=== PATIENT | female | born 1945 | race Caucasian/White ===

== ENCOUNTER 2016-09-02 08:25 | Inpatient (IN) | payer OTHER ==
[2016-08-05 11:41] VITALS: BMI 39.0
--- NOTE | 2016-08-05 12:25 | PAT Medication Instructions ---
Service Date Aug 05, 2016. Current Home Medication List Calcium Carbonate (Tums), 1 TAB PO BID PRN for Indigestion Cholecalciferol (Vitamin D 1000 Unit), 3,000 INTER.UNIT PO QAM Cyanocobalamin (Vitamin B-12), 1,000 MCG SL QAM Divalproex Sodium (Depakote Er), 500 MG PO HS Divalproex Sodium (Depakote Delay Rel), 250 MG PO HS Donepezil Hydrochloride (Donepezil Hcl), 1 TAB PO QAM Econazole Nitrate 1% (Spectazole 1%), 1 APPLN TOP DAILY PRN for RASH Fluoxetine (Prozac), 20 MG PO QAM Gabapentin (Neurontin), 100 MG PO TID Gabapentin (Neurontin), 400 MG PO TID Loperamide Hcl (Imodium), 2 MG PO DIRECTED PRN for Diarrhea Lorazepam (Ativan), 1 MG PO BID PRN for Anxiety Nystatin (Mycostatin), 1 APPLN TD DAILY PRN for skin impairment Ondasetron Odt (Zofran Odt), 4 MG SL Q6H PRN for NAUSEA Oxycodone Immediate Rel Tab (Roxicodone Ir), 5 MG PO TID PRN for Severe Pain Oxygen (Oxygen), 2 LITERS NA HS Pantoprazole (Protonix), 40 MG PO QAM Saline ([place] Nasal [place]), 2 SPRAY CAROL DAILY PRN for CONGESTION Wheat Dextrin (Benefiber), 1 DOSE PO DAILY PRN for Constipation Zinc Acetate (Oral) (Galzin), 25 MG PO QAM Medication Instructions For Your Scheduled Surgery - Hold the following medications 24 hours prior to surgery: Econazole Nitrate 1% (Spectazole 1%), 1 APPLN TOP DAILY PRN for RASH Nystatin (Mycostatin), 1 APPLN TD DAILY PRN for skin impairment - Hold the following medications the morning of surgery: Zinc Acetate (Oral) (Galzin), 25 MG PO QAM Wheat Dextrin (Benefiber), 1 DOSE PO DAILY PRN for Constipation Loperamide Hcl (Imodium), 2 MG PO DIRECTED PRN for Diarrhea Calcium Carbonate (Tums), 1 TAB PO BID PRN for Indigestion Cholecalciferol (Vitamin D 1000 Unit), 3,000 INTER.UNIT PO QAM Cyanocobalamin (Vitamin B-12), 1,000 MCG SL QAM - Take the following medications the morning of surgery with a sip of water: Saline ([place] Nasal [place]), 2 SPRAY CAROL DAILY PRN for CONGESTION Pantoprazole (Protonix), 40 MG PO QAM Ondasetron Odt (Zofran Odt), 4 MG SL Q6H PRN for NAUSEA Lorazepam (Ativan), 1 MG PO BID PRN for Anxiety' Gabapentin (Neurontin), 100 MG PO TID Gabapentin (Neurontin), 400 MG PO TID Fluoxetine (Prozac), 20 MG PO QAM Donepezil Hydrochloride (Donepezil Hcl), 1 TAB PO QAM Oxycodone Immediate Rel Tab (Roxicodone Ir), 5 MG PO TID PRN for Severe Pain ( okay to take up to 4 hours prior to surgery if needed) - Take the following medications as scheduled the night before surgery: Saline ([place] Nasal [place]), 2 SPRAY CRAOL DAILY PRN for CONGESTION Ondasetron Odt (Zofran Odt), 4 MG SL Q6H PRN for NAUSEA Lorazepam (Ativan), 1 MG PO BID PRN for Anxiety Loperamide Hcl (Imodium), 2 MG PO DIRECTED PRN for Diarrhea Gabapentin (Neurontin), 100 MG PO TID Gabapentin (Neurontin), 400 MG PO TID Divalproex Sodium (Depakote Delay Rel), 250 MG PO HS Divalproex Sodium (Depakote Er), 500 MG PO HS Calcium Carbonate (Tums), 1 TAB PO BID PRN for Indigestion Oxycodone Immediate Rel Tab (Roxicodone Ir), 5 MG PO TID PRN for Severe Pain If you have any questions please call us at [phone] (Lashanda Haider PA-C) or [phone] or [phone]
[2016-08-05 12:49] LABS: BASO % 0.2 %; BASO ABS # 0.01 K/uL (0-0.2); COMPLETE YES; EOS % 1.5 %; HEMATOCRIT 33.2 % (37-47); IG% 0.2 %; LYMPH % 23.3 %; LYMPH ABS # 1.28 K/uL (1.2-3.4); MEAN CELL VOLUME 90.2 fL (80-100); MEAN CORPUSCULAR HEMOGLOBIN 30.4 pg (25-34); MEAN CORPUSCULAR HGB CONC 33.7 g/dl (32-36); MEAN PLATELET VOLUME 10.6 fL (7.4-10.4); MONO % 8.9 %; NEUT % 65.9 %; PLATELET COUNT 245 K/uL (130-400); RED BLOOD COUNT 3.68 M/uL (4.2-5.4); WHITE BLOOD COUNT 5.49 K/uL (4.8-10.8)
[2016-08-05 13:00] LABS: INR 0.9 (0.9-1.1)
[2016-08-05 13:09] LABS: BUN/CREATININE RATIO 26.3 (10-20); CALCIUM 9.2 mg/dl (8.5-10.1); CREATININE 0.75 mg/dl (0.60-1.20); POTASSIUM 4.8 mmol/L (3.5-5.1)
--- NOTE | 2016-08-28 01:39 | HISTORY & PHYSICAL EXAMINATION ---
DATE OF ADMISSION: 06/04/2016 CHIEF COMPLAINT: Left hip pain, discomfort and stiffness. HISTORY OF PRESENT ILLNESS: This is a 70-year-old female, who presents with over a year history of progressively increasing left hip pain and discomfort. No particular injury. It has gradually gotten significantly worse over the past year. She has actually had to resort to using a cane due to both pain and balance issues. She has become more and more debilitated by her leg pain. She also has got some buttock and back issues, but they have recommended nonoperative care for this. The more she walks, the more it hurts. She would like to have her hip replaced. The patient does have a history of endometrial cancer treated surgically with chemotherapy in 2012. She is disease-free. She had a right knee replacement by Dr. Messer in 2011. PAST MEDICAL HISTORY: 1. Heart murmur. 2. Exertional asthma. 3. Sleep apnea with CPAP machine. 4. Chronic back pain. 5. Chronic anemia. 6. Gastroesophageal reflux disease. 7. Obesity, BMI of 39. PAST SURGICAL HISTORY: Include: 1. Hysterectomy. 2. Cholecystectomy. 3. 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 4. Carpal tunnel release. ALLERGIES: TO TETRACYCLINE, DOXYCYCLINE, ZYRTEC, ERYTHROMYCIN, ADHESIVE TAPE, CODEINE, AND MORPHINE. CURRENT MEDICINES: Include: 1. Aricept 10 mg daily. 2. Neurontin 400 mg three times a day. 3. Oxycodone 5 mg three times a day p.r.n. 4. Namenda 500 mg a day. 5. Protonix 40 mg in the morning. 6. B complex. 7. Spectazole cream. 8. Simvastatin powder. 9. Zofran p.r.n. for nausea. 10. Albuterol 2 puffs four times a day. 11. Neomycin ointment. 12. Lorazepam 1 mg a day. 13. Fluoxetine 20 mg a day. 14. Divalproex 500 mg two pills a day. 15. Tums. 16. Loperamide 2 mg. 17. Procaine. 18. Stool softener. 19. Vitamin D. 20. Depakote 750 at bedtime. SOCIAL HISTORY: A 70-year-old female. She lives by herself. She does not smoke. FAMILY HISTORY: Noncontributory. REVIEW OF SYSTEMS: Significant for chronic narcotic use for some back issues. She denies any current chest pain or shortness of breath. No history of DVT or PE. PHYSICAL EXAMINATION: GENERAL: Reveals a pleasant elderly female. She looks in reasonably good health. HEENT: Benign. NECK: Supple. No lymphadenopathy. LUNGS: Clear to auscultation. HEART: Regular rate and rhythm. ABDOMEN: Soft, nontender and nondistended. EXTREMITIES: Grossly neurovascularly intact except as follows: Examination of the left lower extremity reveals the patient walks with a bit of a limp. She comes using a walker. She is about 1 cm short on the left side compared to the right. Pain with any attempted hip motion. Limited hip motion. X-RAYS: X-rays of the left hip were reviewed. It shows advanced left hip DJD. She has complete loss of her joint space. She has got flattening of her femoral head. There are cystic changes in the femoral head and acetabulum. X-rays of the lumbar spine show fairly mild lumbar disease. Her spine is fairly straight. No severe disease at L5-S1. ASSESSMENT: A 70-year-old female, with left hip and leg pain, consistent with advanced left hip arthritis with some superimposed lumbar spondylosis and spinal stenosis. I do think her hip is probably the biggest generator overall of her pain, but not all of it. We talked about treatment and she would like to have her left hip replaced. PLAN: We are going to take her to the operating room and do a left total hip replacement. The risks and benefits of this procedure were explained to the patient including but not limited to DVT, PE, , infection, neurological injury, vascular injury, bleeding problems, pain, limited range of motion, stiffness, failure to relieve her symptoms, incomplete relief of symptoms, need for further surgery in the future, fracture, leg length inequality, nerve palsy, dislocation, need for revision surgery, need for blood transfusion, etc. The patient understands and desires to proceed. Informed consent was obtained. As far as discharge plans, she is hoping to be discharged to [facility] for a brief rehab stay as she does live by herself. She will bring her CPAP to the hospital. Pain control may be an issue as she is on chronic narcotics preop. We talked about trying to limit this in the perioperative period. JT
[~2016-09-02] VITALS: Ht 160 cm; Wt 100.0 kg
[2016-09-02] VITALS (7 sets, daily range): BP systolic 95–140; BP diastolic 58–78; PULSE 72–79; TEMP 35.8–37; O2SAT 90–100; Ht 160 cm; Wt 100.0 kg
[~2016-09-02 08:25] MED LIST: ACETAMINOPHEN 500 MG TAB PO SCH; ATV/1 PO; BUPIVACAINE 0.5 % 5 MG/1 ML PF 10ML VIAL ONE; CALC500C3 PO; CEFAZOLIN 2000 MG/60 ML D5W 60 ML IV SCH; CHOL100027 PO; CYAN10005 SL; DIVA250T4 PO; DIVA500T3 PO; DONE1TAB26 PO; ECON0.05 TOP; FAMOTIDINE 20 MG TAB PO SCH; FLUO20CA35 PO; GABA-112 PO; GABA1CAP5 PO; GABAPENTIN 300 MG CAP PO SCH; IMD/2 PO; LACTATED RINGER'S 1000ML 1,000 ML IV SCH; LACTATED RINGER'S 1000ML 500 ML IV ONE; LACTATED RINGER'S 1000ML IV SCH; METOCLOPRAMIDE HCL 10 MG TAB PO SCH; NYST100098 TD; ONDA4TAB10 SL; OXGN; OXYC1TAB3 PO; PANT40TA PO; SALI0.6510 NAE; SCOPOLAMINE 1.5 MG TDSY TD SCH; TRANEXAMIC ACID INJ 1,000 MG in SODIUM CHLORIDE 0.9% 100ML 100 ML IV SCH; WHEAPOW13 PO; ZINC25CA PO
--- NOTE | 2016-09-02 09:03 | History & Physical Bridge Note ---
H&P Re-Evaluation Bridge Note: I have examined the patient, reviewed the History & Physical and in the interval since the performance of the History & Physical I have noted the following changes of clinical significance: No changes noted
[2016-09-02] MEDS ORDERED: LIDOCAINE HCL 2% 2 ML VIAL (20MG/ML) ONE (10:05)
[2016-09-02] MEDS ORDERED: PROPOFOL IV EMULSION 10 MG/ML 20 ML VIAL IV ONE (10:05)
[2016-09-02] MEDS ORDERED: MIDAZOLAM HCL 1 MG/ML 2ML VIAL ONE ×2 (10:05→12:30)
[2016-09-02] MEDS ORDERED: BUPIVACAINE/EPINEPHRINE 0.5% MPF 1:200,000 30 ML VIAL ONE (11:20)
[2016-09-02] MEDS ORDERED: BACITRACIN 50,000 UNITS IR ONE (12:13)
[2016-09-02] MEDS ORDERED: ATROPINE SULFATE 0.1 MG/ML 5ML SYR IV PRN ×2 (12:30→13:45)
[2016-09-02] MEDS ORDERED: HYDROmorphone INJ 2 MG/ML SYR/VIAL IV PRN ×2 (12:30→13:45)
[2016-09-02] MEDS ORDERED: ONDANSETRON INJ 2 MG/ML 2 ML VIAL IV PRN ×3 (12:30→13:45)
[2016-09-02] MEDS ORDERED: EpHEDrine SULFATE INJ 50 MG/ML AMP IV PRN ×2 (12:30→13:45)
[2016-09-02] MEDS ORDERED: PHENYLEPHRINE 100MCG/ML 5ML SYR IV PRN ×2 (12:30→13:45)
[2016-09-02] MEDS ORDERED: LABETALOL HCL IV 5 MG/ML 20ML IV ONE (12:35)
--- NOTE | 2016-09-02 13:23 | [facility] Post Operative Brief Note ---
Immediate Operative Summary Operative Date Sep 02, 2016. Pre-Operative Diagnosis Left Hip Advanced Degenerative Joint Disease Post-Operative Diagnosis same as pre-operative Procedure(s) Performed Left Total Hip Arthroplasty--Uncemented Surgeon Dr. Florentino Leavitt Service Mechanic Surgeon(s) Ye Perkins PA-C Estimated Blood Loss 400ml Findings Left Hip DJD Fluids (cc crystalloids) 1500 cc Specimens SPECIMEN: A: Left femoral head Drains None Anesthesia Spinal Complication(s) None Disposition Recovery Room / PACU
[2016-09-02] MEDS ORDERED: LORAZEPAM 1 MG TAB PO PRN (13:30)
[2016-09-02] MEDS ORDERED: ALUMINUM/MAGNESIUM/SIMETH (MAALOX MAX) 30 ML UDC PO PRN (13:30)
[2016-09-02] MEDS ORDERED: ONDANSETRON 4MG OD TAB SL PRN (13:30)
[2016-09-02] MEDS ORDERED: SODIUM CHLORIDE 0.65% NA SOLN 45 ML (OCEAN) NAE PRN (13:30)
[2016-09-02] MEDS ORDERED: ZOLPIDEM TARTRATE 5 MG TAB PO PRN (13:30)
[2016-09-02] MEDS ORDERED: LOPERAMIDE HCL 2 MG CAP PO PRN (13:30)
[2016-09-02] MEDS ORDERED: WHEAT DEXTRIN PO PRN (13:30)
[2016-09-02] MEDS ORDERED: MAGNESIUM HYDROXIDE SUSP 30 ML UDC PO PRN (13:30)
[2016-09-02] MEDS ORDERED: HYDROmorphone HCL 2 MG TAB PO PRN (13:30)
[2016-09-02] MEDS ORDERED: SILVER SULFADIAZINE 1% CR 50 GM JAR EXT PRN (13:30)
[2016-09-02] MEDS ORDERED: CALCIUM CARBONATE 500 MG CHEWABLE PO PRN (13:30)
[2016-09-02] MEDS ORDERED: METOCLOPRAMIDE HCL INJ 5 MG/ML 2 ML VIAL IV PRN (13:30)
[2016-09-02] MEDS ORDERED: ECONAZOLE NITRATE 1% CRM 15 GM TUBE EXT PRN (13:30)
[2016-09-02] MEDS ORDERED: DiphenhydrAMINE HCL 50 MG/ML VIAL IV PRN (13:30)
[2016-09-02] MEDS ORDERED: BISACODYL 10 MG SUPP PR PRN (13:30)
[2016-09-02] MEDS ORDERED: HydrALAZINE HCL 20 MG/ML VIAL ONE (13:31)
--- NOTE | 2016-09-02 14:40 | DIAGNOSTIC IMAGING REPORT ---
AP PELVIS AND LEFT HIP 2 VIEWS CLINICAL HISTORY: Postop hip arthroplasty COMPARISON STUDY: No previous studies for comparison. FINDINGS: There are postsurgical changes of a total left hip arthroplasty. No acute fractures or dislocations are visualized. There are overlying skin kamar. There is air within the soft tissues consistent with recent surgery IMPRESSION: Postsurgical changes of a total left hip arthroplasty. Electronically signed by: Connor Oleary M.D. 09/02/2016 2:38 PM Dictated Date/Time: 09/02/2016 2:37 PM
--- NOTE | 2016-09-02 14:58 | Anesthesiology Progress Note ---
Anesthesia Post Op Note Date & Time Sep 02, 2016 at 14:57 Vital Signs Pain Intensity: 0 Vital Signs Past 12 Hours Date Time Temp Pulse Resp B/P Pulse Ox O2 Delivery O2 Flow Rate FiO2 09/02/16 14:45 36.4 71 20 131/64 99 Nasal Cannula 2 09/02/16 14:35 36.4 75 20 130/90 100 Nasal Cannula 2 09/02/16 14:25 71 20 127/71 99 Nasal Cannula 09/02/16 14:15 36.3 82 20 137/76 100 Nasal Cannula 09/02/16 14:05 74 20 114/68 100 Nasal Cannula 2 09/02/16 13:55 75 20 141/66 100 Nasal Cannula 2 09/02/16 13:45 76 20 140/70 99 Nasal Cannula 2 09/02/16 13:35 75 20 131/65 98 Nasal Cannula 2 09/02/16 13:28 36.6 77 20 141/64 97 Nasal Cannula 2 09/02/16 09:08 36.9 72 18 140/63 95 Room Air Notes Mental Status: alert / awake / arousable, participated in evaluation Pt Amnestic to Procedure: Yes Nausea / Vomiting: adequately controlled Pain: adequately controlled Airway Patency, RR, SpO2: stable & adequate BP & HR: stable & adequate Hydration State: stable & adequate Anesthetic Complications: no major complications apparent
[2016-09-02] MEDS: D5W AND 1/2NSS + 20MEQ KCL 1,000 ML IV SCH (16:49)
[2016-09-02] MEDS: ACETAMINOPHEN 500 MG TAB PO SCH ×2 (16:50→21:10)
[2016-09-02] MEDS: CHECK SCOPOLAMINE PATCH PLACEMENT SCH ×2 (16:51→23:30)
[2016-09-02] MEDS: HYDROmorphone INJ 1 MG/ML SYR IV PRN ×2 (16:53→23:27)
--- NOTE | 2016-09-02 18:02 | PROGRESS NOTE ---
DATE: 09/02/2016 SUBJECTIVE: 70-year-old female postop from a left total hip replacement. She is pretty somnolent, lying in bed. She is barely arousable and sleeping comfortable. OBJECTIVE: VITAL SIGNS: Temperature 35.8. Vital signs stable. PHYSICAL EXAMINATION: Reveals a pleasant elderly female. She is lying in bed and she is arousable but falls right back to sleep. LUNGS: Clear to auscultation. HEART: Regular rate and rhythm. ABDOMEN: Soft, nontender, nondistended. EXTREMITIES: Grossly neurovascularly intact except as follows. Examination of left lower extremity reveals the leg to be well aligned. Leg lengths are equal. Hip is located. She does dorsiflex and plantarflex her foot on command. X-RAYS: X-rays of the left hip from the recovery room were reviewed. It shows left uncemented total hip arthroplasty. Components looked to be in good position. No signs of problems. ASSESSMENT: 70-year-old white female postop from a left total hip replacement. She is doing pretty well. A little somnolent and I think a little bit overmedicated. We need to leave this medicine wear off. PLAN: 1. DVT prophylaxis including thigh-high TEDs, SCDs, and aspirin twice a day. 2. PT/OT. Weightbearing as tolerated. Left total hip protocol. 3. Pain control, doing well with current pain regimen. We are going to hold on narcotics until she wakes up. 4. IV antibiotics x24 hours. 5. Medical management as per the medicine service. 6. Disposition: She is hoping to be discharged to [facility] for a brief rehab stay once medically stable.
[2016-09-02] MEDS: FERROUS GLUCONATE 324 MG TAB PO SCH (18:18)
[2016-09-02] MEDS: CEFAZOLIN IV 2,000 MG in DEXTROSE 5% 50ML 50 ML IV SCH (18:18)
[2016-09-02] MEDS: KETOROLAC TROMETHAMINE 15 MG/ML VIAL IV. SCH ×2 (18:18→23:28)
[2016-09-02] MEDS ORDERED: TRANEXAMIC ACID INJ 1,000 MG in SODIUM CHLORIDE 0.9% 100ML 100 ML IV ONE (19:30)
[2016-09-02] MEDS ORDERED: [UNRECOGNIZED DRUG - CODE] PO (19:42)
[2016-09-02] MEDS ORDERED: SENNTAB23 PO (19:42)
[2016-09-02] MEDS ORDERED: DIVA500T3 PO (19:42)
[2016-09-02] MEDS ORDERED: B-COTAB53 PO (19:42)
[2016-09-02] MEDS ORDERED: MELA1TAB5 PO (19:42)
[2016-09-02] MEDS: TRAMADOL HCL 50 MG TAB PO PRN (20:57)
[2016-09-02] MEDS: OXYCODONE HCL IR 5 MG TAB (IMMEDIATE RELEASE) PO PRN (20:58)
[2016-09-02] MEDS ORDERED: DIVALPROEX 500 MG EXTENDED RELEASE TAB PO ONE (21:00)
[2016-09-02] MEDS ORDERED: DIVALPROEX 500 MG EXTENDED RELEASE TAB PO SCH (21:00)
[2016-09-02] MEDS ORDERED: DIVALPROEX SODIUM 250 MG DELAY REL TAB PO SCH (21:00)
[2016-09-02] MEDS: GABAPENTIN 400 MG CAP PO SCH (21:03)
[2016-09-02] MEDS: DOCUSATE SODIUM 100 MG CAP PO SCH (21:03)
[2016-09-02] MEDS: ASPIRIN 325 MG ECTAB PO SCH (21:03)
[2016-09-02] MEDS: GABAPENTIN 100 MG CAP PO SCH (21:04)
--- NOTE | 2016-09-02 21:57 | Medical Consult ---
Consultation Date of Consultation: Sep 02, 2016. Attending Physician: Florentino Leavitt M.D. Reason for Consultation: postop medical management History of Present Illness Patient seen and examined around 1900 after undergoing L EFREM today by Dr. Leavitt. Patient states he is tired and having left hip pain and has just received medication for her pain. Denies dizziness ,chest pain, SOB, nausea, vomiting, calf pain, edema. Last BM was yesterday. Has Sev[place] catheter in place. Denies hx of VTE. Past Medical/Surgical History Medical Problems: (1) Anemia Status: Chronic (2) Anxiety Status: Chronic (3) Bipolar disorder Status: Chronic (4) Dementia Status: Chronic (5) Diastolic dysfunction Permanent Comment: echo 05/2015 - EF 55-60%, grade II diastolic dysfunction Status: Chronic (6) Gastroesophageal reflux disease Status: Chronic (7) History of endometrial cancer Permanent Comment: Postmenopausal vaginal bleeding Abnormal pelvic ultrasound and endometrial biopsy Repeat endometrial biopsy positive 08/13/2012 revealing poorly differentiated adenocarcinoma Status post total abdominal hysterectomy bilateral salpingo-oophorectomy with pelvic and periaortic lymph node sampling Stage [id number], grade 3, stage I b Status post completion of radiation therapy utilizing IMRT completed 06/21/2013 received 5040 cGy external beam therapy followed by 2 HDR treatments June 13 and June 23, total 5840 cGy Status: Resolved (8) Nocturnal hypoxemia Status: Chronic (9) OCD (obsessive compulsive disorder) Status: Chronic (10) JOO on CPAP Status: Chronic (11) Spinal stenosis Status: Chronic Surgical Problems: (1) History of carpal tunnel surgery Status: Chronic (2) History of hysterectomy Status: Chronic (3) History of vitrectomy Status: Chronic (4) Hx of cataract surgery Status: Chronic (5) S/P arthroscopy of left knee Status: Chronic (6) s/p cholecystectomy Status: Chronic (7) s/p colonoscopy Status: Chronic (8) s/p ectopic Status: Chronic (9) s/p repair inguinal hernia Status: Chronic (10) Status post total right knee replacement Status: Chronic Family History Cancer Heart disease Social History Smoking Status: Never Smoker Drug Use: none Marital Status: Occupation Status: retired Allergies Coded Allergies: Adhesives (Verified Allergy, Unknown, ADHESIVE TAPE -- BLISTERS, 09/02/16) Cetirizine (Verified Allergy, Unknown, SORES IN MOUTH, HEAD CONGESTION, 09/02/16) Erythromycin (Verified Allergy, Unknown, SORES IN MOUTH, 09/02/16) Tetracycline (Verified Adverse Reaction, Intermediate, NAUSEA, 09/02/16) Codeine (Verified Adverse Reaction, Mild, NAUSEA, 08/05/16) Doxycycline (Verified Adverse Reaction, Mild, NAUSEA, 08/05/16) Morphine (Verified Adverse Reaction, Unknown, "MAKES ME FEEL LOOPY", ) Home Medications Active Reported Stool Softener (Sennosides-Docusate Sodium) 1 Tab Tab 1 Tab PO DAILY PRN Kp Melatonin (Melatonin) 3 Mg Tab 1 Tab PO HS PRN 30 Days B Complex (B-Complex W/ Folic Acid) 1 Tab Tab 1 Tab PO DAILY Biotin Forte (Biotin) 3 Mg Tab 3 Mg PO DAILY Depakote Er (Divalproex Sodium) 500 Mg Tab 1,000 Mg PO HS 30 Days Tums (Calcium Carbonate) 500 Mg Chew 1 Tab PO BID PRN [place] Nasal [place] (Saline) 0.65 % Spr 2 [place] CAROL DAILY PRN Zofran Odt (Ondansetron HCl) 4 Mg Tab 4 Mg SL Q6H PRN Neurontin (Gabapentin) 400 Mg Cap 400 Mg PO TID Neurontin (Gabapentin) 100 Mg Cap 100 Mg PO TID Donepezil Hcl (Donepezil Hydrochloride) 10 Mg Tab 1 Tab PO QAM Protonix (Pantoprazole Sodium) 40 Mg Tab 40 Mg PO QAM Benefiber (Wheat Dextrin) 1 Pow Pow 1 Dose PO DAILY PRN Galzin (Zinc Acetate (Oral)) 25 Mg Cap 25 Mg PO QAM Imodium (Loperamide HCl) 2 Mg Cap 2 Mg PO DIRECTED PRN Roxicodone Ir (Oxycodone HCl) 5 Mg Tab 5 Mg PO TID PRN Spectazole 1% (Econazole Nitrate) Cr 1 Appln TOP DAILY PRN Oxygen Gas 2 Liters NA HS Prozac (Fluoxetine HCl) 20 Mg Cap 20 Mg PO QAM Mycostatin (Nystatin) Powd 1 Appln TD BID PRN APPLY TO GROIN,UNDER BREASTS, LEFT UNDERARM. Ativan (Lorazepam) 1 Mg Tab 1 Mg PO BID PRN Vitamin D 1000 Unit (Cholecalciferol) 1,000 Unit Cap 4,000 Inter.unit PO QAM Current Inpatient Medications Current Inpatient Medications Medications (Trade) Dose Ordered Sig/Quan Route Start Time Stop Time Status Last Admin Dose Admin Lactated Ringer's (Lr 1000ml) 1,000 ml @ 15 mls/hr Q24H IV 09/02/16 06:00 09/03/16 05:59 Miscellaneous (Remove Transderm-Scop Patch) 1 ea Q72H N/A 09/05/16 06:00 09/05/16 06:01 Miscellaneous Information 1 ea 1 ea QS N/A 09/02/16 16:00 09/04/16 05:59 09/02/16 16:51 1 EA Potassium Chloride/Dextrose/ Sod Cl (D5W And 1/2nss + 20meq KCl) 1,000 ml @ 100 mls/hr Q10H IV 09/02/16 16:30 09/03/16 13:22 09/02/16 16:49 100 MLS/HR Ketorolac Tromethamine (Toradol Inj) 15 mg Q6 IV. 09/02/16 18:00 09/04/16 17:59 09/02/16 18:18 15 MG Acetaminophen (Tylenol Tab) 1,000 mg Q8 PO 09/02/16 16:30 10/02/16 16:29 09/02/16 16:50 1,000 MG Magnesium Hydroxide (Milk Of Magnesia Susp) 30 ml Q6H PRN PO 09/02/16 13:30 10/02/16 13:29 Bisacodyl (Dulcolax Supp) 10 mg DAILY PRN UT 09/02/16 13:30 10/02/16 13:29 Docusate Sodium (coLACE CAP) 100 mg BID PO 09/02/16 21:00 10/02/16 20:59 Diphenhydramine HCl (Benadryl Cap) 25 mg Q8H PRN PO 09/02/16 13:30 10/02/16 13:29 Diphenhydramine HCl (Benadryl Inj) 25 mg Q8H PRN IV 09/02/16 13:30 10/02/16 13:29 Al Hydrox/Mg Hydrox/Simethicone (Maalox Max Susp) 15 ml Q4H PRN PO 09/02/16 13:30 10/02/16 13:29 Zolpidem Tartrate (Ambien Tab) 5 mg HSZ PRN PO 09/02/16 13:30 10/02/16 13:29 Multivitamins (Multivitamin Tab) 1 tab QAM PO 09/03/16 09:00 10/03/16 08:59 Ondansetron HCl (Zofran Inj) 4 mg Q6H PRN IV 09/02/16 13:30 10/02/16 13:29 Metoclopramide HCl (Reglan Inj) 10 mg Q6H PRN IV 09/02/16 13:30 10/02/16 13:29 Ferrous Gluconate (Ferrous Gluconate Tab) 324 mg TIDM PO 09/02/16 17:45 10/02/16 17:59 09/02/16 18:18 324 MG Silver Sulfadiazine (Silvadene 1% Crm 50GM Jar) 1 appln BID PRN EXT 09/02/16 13:30 10/02/16 13:29 Aspirin (Ecotrin Tab) 325 mg BID PO 09/02/16 21:00 10/02/16 20:59 Tramadol HCl 1 TABLET FOR PAIN RATING... Q4H PRN PO 09/02/16 13:30 10/02/16 13:29 Cefazolin Sodium/ Dextrose (Ancef Iv/D5 50ml) 60 ml @ 100 mls/hr Q8H IV 09/02/16 18:00 09/03/16 02:35 09/02/16 18:18 100 MLS/HR Calcium Carbonate (Tums Chew Tab) 500 mg BID PRN PO 09/02/16 13:30 10/02/16 13:29 Cholecalciferol (Vitamin D Tab) 3,000 inter.unit QAM PO 09/03/16 09:00 10/03/16 08:59 Cyanocobalamin (Vitamin B-12 Tab) 1,000 mcg QAM PO 09/03/16 09:00 10/03/16 08:59 Divalproex Sodium (Depakote Delay Rel Tab) 750 mg HS PO 09/02/16 21:00 10/02/16 20:59 Econazole Nitrate (Econazole Nitrate 1% Crm) 1 appln DAILY PRN EXT 09/02/16 13:30 10/02/16 13:29 Fluoxetine HCl (Prozac Cap) 20 mg QAM PO 09/03/16 09:00 10/03/16 08:59 Gabapentin (Neurontin Cap) 100 mg TID PO 09/02/16 21:00 10/02/16 20:59 Gabapentin (Neurontin Cap) 400 mg TID PO 09/02/16 21:00 10/02/16 20:59 Loperamide HCl (Imodium Cap) 2 mg DAILY PRN PO 09/02/16 13:30 10/02/16 13:29 Lorazepam (Ativan Tab) 1 mg BID PRN PO 09/02/16 13:30 10/02/16 13:29 Nystatin (Mycostatin Powder) 1 appln DAILY PRN EXT 09/02/16 13:30 10/02/16 13:29 Ondansetron HCl (Zofran Odt) 4 mg Q6H PRN SL 09/02/16 13:30 10/02/16 13:29 Oxycodone HCl (Roxicodone Immediate Rel Tab) 5 mg TID PRN PO 09/02/16 13:30 09/16/16 13:29 Pantoprazole Sodium (Protonix Tab) 40 mg QAM PO 09/03/16 09:00 10/03/16 08:59 Sodium Chloride ([place] Nasal [place]) 2 sprays DAILY PRN CAROL 09/02/16 13:30 10/02/16 13:29 Donepezil HCl (Aricept Tab) 10 mg DAILY@1000 PO 09/03/16 10:00 10/03/16 09:59 Hydromorphone HCl (Dilaudid Inj) 1 mg Q1H PRN IV 09/02/16 13:30 09/16/16 13:29 09/02/16 16:53 1 MG Hydromorphone HCl (Dilaudid Tab) 2 mg Q4H PRN PO 09/02/16 13:30 09/16/16 13:29 Review of Systems Ten point ROS performed with pertinent positives and negatives noted in HPI. Physical Exam Date Time Temp Pulse Resp B/P Pulse Ox O2 Delivery O2 Flow Rate FiO2 09/02/16 18:45 36.9 79 16 122/58 93 Room Air 09/02/16 17:45 36.5 76 16 95/58 90 Room Air 09/02/16 16:45 35.8 75 16 136/78 100 Nasal Cannula 2.0 09/02/16 16:15 36.7 73 20 126/74 97 Nasal Cannula 2.0 09/02/16 15:00 36.4 72 20 121/63 99 Nasal Cannula 2 09/02/16 14:45 36.4 71 20 131/64 99 Nasal Cannula 2 09/02/16 14:35 36.4 75 20 130/90 100 Nasal Cannula 2 09/02/16 14:25 71 20 127/71 99 Nasal Cannula 09/02/16 14:15 36.3 82 20 137/76 100 Nasal Cannula 09/02/16 14:05 74 20 114/68 100 Nasal Cannula 2 09/02/16 13:55 75 20 141/66 100 Nasal Cannula 2 09/02/16 13:45 76 20 140/70 99 Nasal Cannula 2 09/02/16 13:35 75 20 131/65 98 Nasal Cannula 2 09/02/16 13:28 36.6 77 20 141/64 97 Nasal Cannula 2 09/02/16 09:08 36.9 72 18 140/63 95 Room Air General Appearance: WD/WN, no apparent distress, + obese Head: normocephalic, atraumatic Eyes: normal inspection, sclerae normal ENT: hearing grossly normal Neck: supple, trachea midline Respiratory/Chest: lungs clear, normal breath sounds, no respiratory distress, no accessory muscle use Cardiovascular: regular rate, rhythm, + systolic murmur Abdomen/GI: normal bowel sounds, non tender, soft Extremities/Musculoskelatal: no calf tenderness, no pedal edema, + pertinent finding (left hip dressing in place. SCD's in place) Neurologic/Psych: alert, normal mood/affect, oriented x 3, + pertinent finding (grossly nonfocal) Skin: normal color, warm/dry Assessment & Plan S/P LEFT EFREM POD #[address] Leavitt Pain control and bowel regimen per ortho Monitor daily H/H for sign of acute blood loss anemia DIASTOLIC DYSFUNCTION Appears euvolemic BIPOLAR DISORDER/ ANXIETY Stable, continue home medications DEMENTIA Monitor for delirium Continue Aricept JOO ON CPAP/ NOCTURNAL HYPOXEMIA Continue CPAP HS with nocturnal O2 DVT PROPHYLAXIS Per ortho Patient seen in collaboration with Dr. Menezes. Please see her addendum. I have seen and examined the patient and agree with the assessment and plan as stated above. Kaylin Menezes,
--- NOTE | 2016-09-03 01:13 | OPERATIVE REPORT ---
DATE OF OPERATION: 09/02/2016 SURGEON: Florentino Leavitt MD DRILL FOREMAN: JOSÉ MIGUEL [place] PREOPERATIVE DIAGNOSIS: Left hip degenerative joint disease. POSTOPERATIVE DIAGNOSIS: Same. PROCEDURE PERFORMED: Left uncemented total hip arthroplasty. COMPLICATIONS: None. ESTIMATED BLOOD LOSS: 400 mL FLUID REPLACEMENT: 1500 mL crystalloid fluid replacement. ANESTHESIA: Spinal. DRAINS: None. SPECIMENS: Left femoral head sent for pathology. OPERATIVE INDICATIONS: The patient is a 70-year-old female who has about a year history of increasing left hip pain and discomfort to the point where she has had to use a walker to get around. She also has some back problems but told she was not a surgical candidate for her back. X-rays revealed advanced left hip DJD. She elected to proceed with left total hip arthroplasty. OPERATIVE FINDINGS: Operative findings revealed advanced left hip DJD. She had extensive grade 4 grhi-zx-knit disease. She had osteophytes around the entire femoral head and a very stiff hip with a flexion contracture of about 20 degrees. She did have significant osteopenia. OPERATIVE IMPLANTS: Operative implants consisted of: 1. A Biomet G7 size 50 acetabular shell. 2. A 6.5 cancellous acetabular screw, one screw of 35 mm in length. 3. An apex hole eliminator. 4. Highly cross-linked polyethylene liner with a 50 mm outer diameter, 32 mm inner diameter with a del rio placed inferior and posterior. 5. A DePuy size 15 small stature AML femoral stem. 6. A +5/32 mm metal articular ball. OPERATIVE PROCEDURE: The patient taken to the operating room, identified and placed on the operating table in supine position. All contact areas were appropriately padded. IV antibiotics were provided by anesthesia team. A spinal anesthetic had been implemented in the holding area. Sevilla catheter was placed in sterile fashion. The patient was then placed in the right lateral decubitus position. An axillary roll was placed. [facility] was used for positioning. Left hip and leg were then prepped and draped in the usual sterile fashion. A posterolateral approach to the left hip was then performed through a curvilinear incision centered over the greater trochanter. Sharp dissection was carried out through the subcutaneous tissues down to the level of the IT band and gluteal fascia. The IT band and gluteal fascia was incised longitudinally in line with skin incision. The underlying greater trochanteric bursa was excised. The piriformis and external rotators were tagged and taken off the posterior aspect of the femur. Great care was taken throughout the procedure to protect the sciatic nerve at all times. Of note, the patient did have a very large soft tissue envelope and subcutaneous fat layer. A posterior capsulotomy was then performed leaving a large flap for later repair. Hip was internally rotated and dislocated. The femoral neck osteotomy cut was made with the final cut about 8 mm above the lesser trochanter. Femoral head was removed and sent for pathology. The femur was retracted anteriorly. Attention was then drawn to the acetabulum. The acetabulum labrum was excised. The pulvinar fat was excised. Sequential reaming of the acetabulum was then performed beginning with a size 43 and progressing up to 49. A 50 mm Biomet G7 acetabular shell was then placed in about 40 degrees of lateral opening and 20 degrees of anteversion. It was fixed with two 6.5 cancellous acetabular screws. A trial liner was placed. Attention was then drawn to the femur. The proximal femur was entered with a cookie cutter followed by a canal finder and lateralizing reamer. Sequential reaming of the femur was then performed beginning with a size 10 and progressing up to a 13. We got pretty good chatter at 13. I then broached beginning with a size 10.5 small broach and progressing up to 13.5 small broach. However, the small broach counter sank quite a bit. In light of this, I tried to start placing the larger broach, but it was clearly too big. Therefore, I elected to ream to a 14.[address] a 15 stem. We reamed up to a 14.5. I placed a 15 small broach. This fit much more appropriately proximally. I used the calcar reamer to smoothen off the calcar with the final calcar cut 8 mm. We then trialed the hip and the +5/32 mm articular ball provided full stability of the hip and full extension and external rotation, flexion to 90 degrees, internal rotation to 60+ degrees. There was still a little bit tight in extension but I felt this was what restored her leg lengths. We elected to place these implants. All trial implants were removed. An apex hole eliminator was placed. A highly cross-linked polyethylene liner was placed. I did place the del rio inferior and posterior to maximize stability in flexion. A 15 small stature AML femoral stem was placed. We got excellent fit. A +5/32 mm metal articular ball was placed. Hip was located and once again found to be stable. Attention was then drawn toward closing. The wound was irrigated with copious amounts of pulsatile lavage solution. I did inject locally with 60 mL of 0.5% Marcaine with epinephrine. The posterior capsule and external rotators were then repaired through drill holes in the posterior trochanter with #2 Ti-Cron suture. The IT band and gluteal fascia were then closed with #1 PDS suture in running fashion. The subcutaneous tissues were then closed with 2 layers with the deep layer #2 Vicryl suture in a buried interrupted fashion. The more superficial subcutaneous tissues were closed with 2-0 Dexon suture in a buried interrupted fashion. Skin was closed skin kamar. Leg was then cleaned and dried and a sterile dressing of Xeroform, 4 x 4, sterile ABD pad and foam tape was applied. The patient was then transferred to the recovery room in stable condition. The patient tolerated the procedure well, there were no complications. All needle and sponge counts were correct at the end of the operation. I attest to the content of the Intraoperative Record and any orders documented therein. Any exceptio ns are noted below.
[2016-09-03] MEDS: D5W AND 1/2NSS + 20MEQ KCL 1,000 ML IV SCH ×2 (02:00→12:19)
[2016-09-03] MEDS: CEFAZOLIN IV 2,000 MG in DEXTROSE 5% 50ML 50 ML IV SCH (02:00)
[2016-09-03 04:02] VITALS: BP 95/57; PULSE 71; TEMP 36.8; O2SAT 97
[2016-09-03] MEDS: ACETAMINOPHEN 500 MG TAB PO SCH ×3 (05:54→21:13)
[2016-09-03] MEDS: KETOROLAC TROMETHAMINE 15 MG/ML VIAL IV. SCH ×3 (05:54→18:55)
[2016-09-03 06:02] LABS: BASO % 0.2 %; BASO ABS # 0.01 K/uL (0-0.2); HEMATOCRIT 25.9 % (37-47); IG% 0.2 %; LYMPH % 23.1 %; LYMPH ABS # 1.16 K/uL (1.2-3.4); MEAN CELL VOLUME 88.4 fL (80-100); MEAN CORPUSCULAR HEMOGLOBIN 29.7 pg (25-34); MEAN CORPUSCULAR HGB CONC 33.6 g/dl (32-36); MONO % 16.1 %; NEUT % 59.4 %; PLATELET COUNT 202 K/uL (130-400); RED BLOOD COUNT 2.93 M/uL (4.2-5.4); WHITE BLOOD COUNT 5.03 K/uL (4.8-10.8)
[2016-09-03 06:44] LABS: CALCIUM 8.4 mg/dl (8.5-10.1); CREATININE 0.77 mg/dl (0.60-1.20); POTASSIUM 3.9 mmol/L (3.5-5.1)
[2016-09-03 06:47] LABS: COMPLETE YES
[2016-09-03 07:30] VITALS: BP 120/60; PULSE 50; PULSE 77; TEMP 36.3; TEMP 37.5; O2SAT 92
[2016-09-03] MEDS: CHECK SCOPOLAMINE PATCH PLACEMENT SCH ×2 (08:00→16:00)
--- NOTE | 2016-09-03 08:55 | PROGRESS NOTE ---
DATE: 09/03/2016 DATE: 09/03/2016. SUBJECTIVE: A 70-year-old white female postop day 1 from left hip replacement. She is doing pretty well. A moderate amount of discomfort. Denies any chest pain or shortness of breath. Not feeling dizzy or lightheaded. OBJECTIVE: VITAL SIGNS: Temperature 36.3. Vital signs stable. PHYSICAL EXAMINATION: GENERAL: Reveals a pleasant elderly female. She is lying in bed, looks reasonably comfortable. LUNGS: Clear to auscultation. HEART: Regular rate and rhythm. ABDOMEN: Soft, nontender, nondistended. EXTREMITY EXAMINATION: Grossly neurovascularly intact except as follows: Examination of the left lower extremity reveals the dressing to be clean, dry and intact. Hip is located. She can dorsiflex and plantarflex her foot appropriately. She is neurologically intact. LABORATORY DATA: Hemoglobin 8.7. Hematocrit 25.9. Electrolytes are stable. ASSESSMENT: A 70-year-old white female postop day 1 from left total hip replacement, doing pretty well. Some moderate amount of pain but controlled with meds. She is chronically anemic and anemic postop as well as to be expected. Currently asymptomatic. PLAN: 1. We will have to follow her H\T\H. 2. We will continue iron supplementation. 3. Pain control. Doing pretty well with current pain management. 4. Disposition. She is hoping to be discharged to [facility] for a brief rehab stay once stable.
[2016-09-03] MEDS ORDERED: PANTOprazole SOD 40 MG TAB PO SCH (09:00)
[2016-09-03] MEDS ORDERED: ZINC ACETATE 25 MG PO SCH (09:00)
[2016-09-03] MEDS ORDERED: CHOLECALCIFEROL 1000 INTER.UNIT TAB PO SCH (09:00)
[2016-09-03] MEDS: GABAPENTIN 400 MG CAP PO SCH ×3 (09:17→21:12)
[2016-09-03] MEDS: GABAPENTIN 100 MG CAP PO SCH ×3 (09:18→21:13)
[2016-09-03] MEDS: DONEPEZIL HCL 10 MG TAB PO SCH (09:19)
[2016-09-03] MEDS: CHOLECALCIFEROL 1000 INTER.UNIT TAB PO SCH (09:19)
[2016-09-03] MEDS: ASPIRIN 325 MG ECTAB PO SCH ×2 (09:19→21:11)
[2016-09-03] MEDS: CYANOCOBALAMIN 500 MCG TAB (VIT B-12) PO SCH (09:19)
[2016-09-03] MEDS: FERROUS GLUCONATE 324 MG TAB PO SCH ×3 (09:19→17:45)
[2016-09-03] MEDS: MULTIVITAMIN TAB PO SCH (09:21)
[2016-09-03] MEDS: NYSTATIN POWDER 15GM BTL EXT PRN (09:21)
[2016-09-03] MEDS: DOCUSATE SODIUM 100 MG CAP PO SCH ×2 (09:21→21:11)
[2016-09-03] MEDS: PANTOprazole SOD 40 MG TAB PO SCH (09:22)
[2016-09-03] MEDS: FLUOXETINE HCL 20 MG CAP PO SCH (09:22)
[2016-09-03] MEDS: OXYCODONE HCL IR 5 MG TAB (IMMEDIATE RELEASE) PO PRN (09:25)
[2016-09-03 10:01] VITALS: O2SAT 92
[2016-09-03 11:57] VITALS: BP 132/60; PULSE 85; TEMP 37.2; O2SAT 94
[2016-09-03 15:26] VITALS: BP 120/64; PULSE 68; TEMP 37.5; O2SAT 94
[2016-09-03] MEDS ORDERED: ACET-1138 PO (19:41)
[2016-09-03] MEDS ORDERED: FRRG PO (19:41)
[2016-09-03] MEDS ORDERED: RXC5 PO (19:41)
[2016-09-03] MEDS ORDERED: ASPEC325 PO (19:41)
--- NOTE | 2016-09-03 19:50 | Discharge Instructions ---
Discharge Instructions Date of Service Sep 03, 2016. Admission Reason for Admission: Left Hip Degenerative Joint Disease Discharge Discharge Diagnosis / Problem: Left Hip Replacement Discharge Goals Goal(s): Decrease discomfort, Improve function, Increase independence, Improve disease control, Therapeutic intervention Activity Recommendations Activity Level: Assistance Required (Total Hip Precautions) Therapies: Physical Therapy, Occupational Therapy Weightbearing Status: Right weightbearing . Additional Information Patient informed of condition: Yes Advance Directives: No DNR: No Level of Care: Acute Rehab Communicable Disease: No Prognosis: Improving Instructions / Follow-Up Instructions / Follow-Up ACTIVITY RECOMMENDATIONS: Physical Therapy: * Aggressive physical therapy is not usually needed. You will learn to take care of yourself safely and walk. * Follow the "Hip Precautions Instructions." * In some cases, the oncology social work at the hospital will arrange to have a therapist come to your house for the first couple of weeks to help you learn these skills. * You need to practice on your own or with the help of a family member as needed. * When you learn these skills, most of the therapy can be done on your own. Home Exercise: * You were shown a series of exercises in the hospital. Do these exercises three to four times each day including the exercises you were shown in physical therapy. Walking: * Get up and walk several times each day. For the first four weeks, try not to stand or walk for more than one hour at a time. If you do stand or walk for more than one hour, you will not hurt anything, but your leg will likely swell. * As you feel comfortable, you may change from the walker or crutches to a cane and then to independent walking. MEDICATIONS: New Medicine: * You will likely be taking one or more of these medicines: 1. OXYCODONE - Take, as directed, when you need it, every four to six hours to control your pain. 2. Iron Sulfate - Take three times each day for the month after surgery to help you replace the blood lost during surgery. 3. Aspirin - Thins your blood to lessen the chance of forming a blood clot. * The most common side effects of pain medicine and iron are nausea and constipation. If nausea or constipation is too much of a problem or if you have any questions about your new medicines or doses, call [facility] at . We will try to help you manage these issues. VERY IMPORTANT TO READ AND REVIEW" Pain: * The immediate post-operative period after hip replacement surgery is often quite painful. * You are given a prescription for pain medicine. You should take it, as directed, when you need it, especially before physical therapy and before going to bed. Pain that interferes with sleep is very common and can last several months. * You will likely need pain medicine for the first two to four weeks. It will not stop all of the pain. The pain will lessen and as you feel better, you may change to milder pain medicine such as Tylenol. * The most common side effects of pain medicine are nausea and constipation, so don't take more than you need. SPECIAL CARE INSTRUCTIONS: TEDs/Elastic Stockings: * The white elastic stockings help limit swelling and prevent blood clots from forming in your legs. The more you wear them, the more they work. * Wear them for six weeks. Prevention of Infection: * Take antibiotics one hour before any dental cleaning, dental work, urological procedure, gastrointestinal procedure or any invasive surgery in order to prevent your new joint from getting infected. * You may get the antibiotics from the doctor performing the procedure or you may call our office at before and we will call in a prescription to the pharmacy of your choice. Things to Watch For: * Drainage from the incision site that occurs more than one week after your surgery. * Severely increased leg pain or swelling. * Increased redness at the incision site. * Fever above 102 degrees Fahrenheit. * Unusual chest pain or shortness of breath. * Unusual pain or burning with urination. Call [facility] at with any of the above problems or if you have any questions about your medicines or recovery. FOLLOW UP VISIT: Make an appointment to see your doctor for approximately two weeks after surgery for a progress check and staple removal by calling the office at . Current Hospital Diet Patient's current hospital diet: Regular Diet Discharge Diet Recommended Diet: Regular Diet Procedures Procedures Performed: Left Total Hip Arthroplasty--Uncemented Pending Studies Studies pending at discharge: no Medical Emergencies . Who to Call and When: Medical Emergencies: If at any time you feel your situation is an emergency, please call [phone] immediately. . Non-Emergent Contact Non-Emergency issues call your: Surgeon . . "Provider Documentation" section prepared by Florentino Leavitt. Core Measure Problem Core Measures: None
[2016-09-03 23:17] VITALS: BP 125/72; PULSE 87; TEMP 37.3; O2SAT 96
[2016-09-04] VITALS (8 sets, daily range): BP systolic 125–148; BP diastolic 61–91; PULSE 77–99; TEMP 36.9–38; O2SAT 94–97
[2016-09-04] MEDS: CHECK SCOPOLAMINE PATCH PLACEMENT SCH
[2016-09-04] MEDS: KETOROLAC TROMETHAMINE 15 MG/ML VIAL IV. SCH ×3 (00:41→13:45)
[2016-09-04 05:49] LABS: HEMATOCRIT 24.4 % (37-47)
[2016-09-04] MEDS: ACETAMINOPHEN 500 MG TAB PO SCH ×3 (06:07→21:34)
[2016-09-04 08:59] LABS: TOTAL IRON BINDING CAPACITY 252 mcg/dl (250-450)
[2016-09-04] MEDS: GABAPENTIN 100 MG CAP PO SCH ×3 (09:11→21:34)
[2016-09-04] MEDS: CYANOCOBALAMIN 500 MCG TAB (VIT B-12) PO SCH (09:11)
[2016-09-04] MEDS: NYSTATIN POWDER 15GM BTL EXT PRN (09:11)
[2016-09-04] MEDS: PANTOprazole SOD 40 MG TAB PO SCH (09:13)
[2016-09-04] MEDS: CHOLECALCIFEROL 1000 INTER.UNIT TAB PO SCH (09:13)
[2016-09-04] MEDS: DONEPEZIL HCL 10 MG TAB PO SCH (09:13)
[2016-09-04] MEDS: FLUOXETINE HCL 20 MG CAP PO SCH (09:13)
[2016-09-04] MEDS: MULTIVITAMIN TAB PO SCH (09:13)
[2016-09-04] MEDS: FERROUS GLUCONATE 324 MG TAB PO SCH ×3 (09:13→18:16)
[2016-09-04] MEDS: ASPIRIN 325 MG ECTAB PO SCH ×2 (10:04→20:55)
[2016-09-04] MEDS: DOCUSATE SODIUM 100 MG CAP PO SCH ×2 (10:04→20:55)
[2016-09-04] MEDS: GABAPENTIN 400 MG CAP PO SCH ×3 (10:04→20:55)
--- NOTE | 2016-09-04 10:07 | PROGRESS NOTE ---
DATE: 09/04/2016 SUBJECTIVE: A 70-year-old female postop day #2 from a left total hip replacement. Doing reasonably well. Complaining of quite a bit of pain and pretty slow to get around. Denies any chest pain or shortness of breath. Not feeling dizzy or lightheaded. OBJECTIVE: VITAL SIGNS: Temperature 37.0. Vital signs stable. GENERAL: Physical examination reveals a healthy pleasant elderly female. She is lying in bed and looks reasonably comfortable. LUNGS: Clear to auscultation. HEART: Regular rate and rhythm. ABDOMEN: Soft, nontender, and nondistended. EXTREMITIES: Grossly neurovascularly intact except as follows: Examination of the left lower extremity reveals the dressing to be clean, dry and intact. Hip is located. She can dorsiflex and plantarflex her foot appropriately. She is neurologically intact. LABORATORY DATA: Hemoglobin 8.5. Hematocrit 24.4. Electrolytes are stable. ASSESSMENT: A 70-year-old female postop day #2 from left total hip replacement, doing pretty well. Not really well conditioned. Pain seems to be a little bit improved today. She is anemic, but no real obvious symptoms. PLAN: 1. DVT prophylaxis including thigh-high TEDs, SCDs, and aspirin twice a day. 2. PT/OT. Weightbearing as tolerated. Left total hip protocol. 3. Pain control, doing pretty well with current pain regimen. 4. Anemia. Hemoglobin is pretty stable. We will continue to follow this. We let medicine to make a final determination on this, but we are going to hold on any blood transfusion unless worried by them. 5. Disposition: She is hoping to be discharged to rehab for a brief rehab stay once stable.
[2016-09-04] MEDS: OXYCODONE HCL IR 5 MG TAB (IMMEDIATE RELEASE) PO PRN ×2 (13:47→23:10)
[2016-09-04] MEDS ORDERED: BISACODYL 10 MG SUPP PR ONE (16:30)
[2016-09-04 16:33] LABS: HEMATOCRIT 25.5 % (37-47); MEAN CELL VOLUME 85.3 fL (80-100); MEAN CORPUSCULAR HEMOGLOBIN 29.4 pg (25-34); MEAN CORPUSCULAR HGB CONC 34.5 g/dl (32-36); PLATELET COUNT 193 K/uL (130-400); RED BLOOD COUNT 2.99 M/uL (4.2-5.4); WHITE BLOOD COUNT 7.44 K/uL (4.8-10.8)
--- NOTE | 2016-09-04 16:54 | Progress Note ---
Internal Med Progress Note Date of Service: Sep 04, 2016. Provider Documentation: SUBJECTIVE: Patient is sitting in the chair in no acute distress. Feels weak. Pain has been 5-7 on pain scale of 0-10. Mild intermittent nausea but no vomiting.No BM yet. OBJECTIVE: Vital Signs-as noted below Examination: General Appearance: WD/WN, no apparent distress, + obese Head: normocephalic, atraumatic Eyes: normal inspection, sclerae normal ENT: hearing grossly normal. Ears, Nose & Throat are normal looking. Neck: supple, trachea midline, no JVD Respiratory/Chest: lungs clear, normal breath sounds, no respiratory distress, no accessory muscle use Cardiovascular: regular rate, rhythm, + systolic murmur Abdomen/GI: normal bowel sounds, non tender, soft Extremities/Musculoskeletal: no calf tenderness, no pedal edema,left hip dressing in place. SCD's in place. Neurologic/Psych: alert, normal mood/affect, oriented x 3, Grossly nonfocal. Skin: normal color, warm/dry Lab data as noted below. ASSESSMENT & PLAN: S/P Left Total Hip Arthroplasty: POD # 2. Clinically & hemodynamically doing well. Done by Dr. Leavitt -Pain control and bowel regimen per ortho -Monitoring daily H/H for sign of acute blood loss anemia Anemia Due to Acute Blood Loss: Monitoring H/H. -Iron level is low so will start Venofer -Transfuse if Hb drops below 8.0 History Diastolic Dysfunction: Clinically appears euvolemic -Monitoring I'S & O's. History Bipolar Disorder/Anxiety: Stable, continue home medications Dementia: Monitor for delirium -Continue Aricept History JOO: Continue CPAP HS with nocturnal O2 DVT PROPHYLAXIS : Per Ortho Thank you for this consultation. We will follow the patient with you during their hospital stay. You can reach a [facility] the [facility] 19/12 via pager @ [phone]. Vital Signs: Date Time Temp Pulse Resp B/P Pulse Ox O2 Delivery O2 Flow Rate FiO2 09/04/16 15:01 37.5 88 18 125/61 97 Room Air 09/04/16 08:10 37.0 83 19 127/70 96 Room Air 09/04/16 07:30 Room Air 09/04/16 07:30 Room Air 09/04/16 00:45 CPAP 2.0 4/8/17 23:17 37.3 87 18 125/72 96 CPAP Lab Results: Results Past 24 Hours Test 09/04/16 05:26 09/04/16 16:26 Range/Units Hemoglobin 8.5 8.8 12.0-16.0 g/dL Hematocrit 24.4 25.5 37-47 % Iron Level 11 35-150 mcg/dl Total Iron Binding Capacity 252 250-450 mcg/dl White Blood Count 7.44 4.8-10.8 K/uL Red Blood Count 2.99 4.2-5.4 M/uL Mean Corpuscular Volume 85.3 80-100 fL Mean Corpuscular Hemoglobin 29.4 25-34 pg Mean Corpuscular Hemoglobin Concent 34.5 32-36 g/dl RDW Standard Deviation 45.2 36.4-46.3 fL RDW Coefficient of Variation 14.4 11.5-14.5 % Platelet Count 193 130-400 K/uL Mean Platelet Volume 10.0 7.4-10.4 fL
[2016-09-04] MEDS ORDERED: IRON SUCROSE INJ 100 MG in SODIUM CHLORIDE 0.9% 100ML 100 ML IV SCH (17:00)
[2016-09-04] MEDS ORDERED: POLYETHYLENE (MIRALAX) 17 GM PACK PO SCH (17:15)
[2016-09-05] VITALS (12 sets, daily range): BP systolic 107–132; BP diastolic 55–70; PULSE 77–94; TEMP 36.8–38.2; O2SAT 91–97
[2016-09-05] MEDS: ACETAMINOPHEN 500 MG TAB PO SCH ×3 (02:03→21:48)
[2016-09-05] MEDS ORDERED: CEFTRIAXONE SOD INJ 1 GM in DEXTROSE 5% ADD-VANTAGE 50ML 50 ML IV STA (02:10)
[2016-09-05] MEDS ORDERED: ACETAMINOPHEN IV 650 MG in EMPTY BAG 0 ML IV PRN (02:15)
[2016-09-05 02:37] LABS: HEMATOCRIT 22.4 % (37-47)
[2016-09-05] MEDS: NYSTATIN POWDER 15GM BTL EXT PRN ×2 (07:33→08:54)
[2016-09-05] MEDS: MULTIVITAMIN TAB PO SCH (07:34)
[2016-09-05] MEDS: ASPIRIN 325 MG ECTAB PO SCH ×2 (07:34→20:36)
[2016-09-05] MEDS: GABAPENTIN 400 MG CAP PO SCH ×3 (07:34→20:35)
[2016-09-05] MEDS: FERROUS GLUCONATE 324 MG TAB PO SCH ×3 (07:34→17:58)
[2016-09-05] MEDS: POLYETHYLENE (MIRALAX) 17 GM PACK PO SCH (07:34)
[2016-09-05] MEDS: FLUOXETINE HCL 20 MG CAP PO SCH (07:35)
[2016-09-05] MEDS: PANTOprazole SOD 40 MG TAB PO SCH (07:36)
[2016-09-05] MEDS: DONEPEZIL HCL 10 MG TAB PO SCH (07:36)
[2016-09-05] MEDS: CYANOCOBALAMIN 500 MCG TAB (VIT B-12) PO SCH (07:36)
[2016-09-05] MEDS: DOCUSATE SODIUM 100 MG CAP PO SCH ×3 (07:36→20:36)
[2016-09-05] MEDS: CHOLECALCIFEROL 1000 INTER.UNIT TAB PO SCH (07:37)
[2016-09-05] MEDS: OXYCODONE HCL IR 5 MG TAB (IMMEDIATE RELEASE) PO PRN ×4 (07:49→23:48)
[2016-09-05 07:58] LABS: URINE APPEARANCE CLEAR (CLEAR); URINE BILIRUBIN NEG (NEG); URINE COLOR YELLOW; URINE NITRITE NEG (NEG); URINE PH 5.5 (4.5-7.5); URINE SPECIFIC GRAVITY 1.019 (1.000-1.030); UROBILINOGEN NEG (NEG); ZZUR CULT IF INDIC CLEAN CATCH YES
[2016-09-05] MEDS ORDERED: IRON SUCROSE INJ 100 MG in SODIUM CHLORIDE 0.9% 100ML 100 ML IV SCH (08:00)
[2016-09-05 08:01] LABS: MANUAL MICROSCOPIC REQUIRED? NO; REVIEW REQ? YES
[2016-09-05] MEDS ORDERED: POLYETHYLENE (MIRALAX) 17 GM PACK ONE (08:02)
--- NOTE | 2016-09-05 08:16 | PROGRESS NOTE ---
DATE: 09/05/2016 SUBJECTIVE: A 70-year-old white female postop day #3 from left total hip replacement, doing pretty well. Continues to have pain in her hip, but seems to improving a little bit daily. No chest pain or shortness of breath. Did have a fever last evening, but it is better this morning. No real symptoms from this. OBJECTIVE: VITAL SIGNS: Temperature is 37.3. Vital signs stable. GENERAL: Reveals a pleasant elderly female. She is sitting up in her bedside chair and talking to a family member. She looks comfortable. EXTREMITIES: Examination of the left hip reveals the dressing to be clean, dry and intact. Hip is located. NEUROLOGIC: She is neurologically intact. LABORATORY DATA: Hemoglobin 7.8. Hematocrit 22.4. Electrolytes are stable. ASSESSMENT: This is a 70-year-old female, postop day 3 from left total hip replacement, doing pretty well. She continues to be anemic and her hemoglobin has dropped a bit this morning. She is relatively asymptomatic, but I think it is probably best to transfuse her 1 unit of blood. PLAN: 1. DVT prophylaxis including thigh-high TEDs, SCDs, and aspirin twice a day. 2. PT/OT. Weightbearing as tolerated. Left total hip protocol. 3. Pain control, doing reasonably well with current pain regimen. 4. Anemia. We ____ give her 1 unit of blood. 5. Disposition: She is hoping to be discharged to rehab. We were pending insurance approval and rehabilitation acceptance.
[2016-09-05 08:37] LABS: URINE EPITHELIAL CELL AUTO 20-30 /lpf (0-5)
[2016-09-05] MEDS: GABAPENTIN 100 MG CAP PO SCH ×3 (08:54→20:35)
--- NOTE | 2016-09-05 10:39 | DIAGNOSTIC IMAGING REPORT ---
SINGLE VIEW CHEST CLINICAL HISTORY: Fever and dyspnea. FINDINGS: An AP, portable, upright chest radiograph is compared to study dated 09/14/2015. The examination is degraded by portable technique, apical lordotic positioning, and patient rotation. The heart is enlarged and there is atherosclerotic calcification of the thoracic aorta. The pulmonary vasculature is noncongested. Chronic interstitial thickening is similar to previous. No airspace consolidation or large pleural effusion is identified. No pneumothorax is seen. The skeletal structures are osteopenic. Generative change is noted throughout the thoracic spine. Cholestatic clips are seen in the right upper quadrant. IMPRESSION: Cardiomegaly with no acute cardiopulmonary abnormality. Electronically signed by: Wes Ventura M.D. 09/05/2016 10:37 AM Dictated Date/Time: 09/05/2016 10:36 AM
--- NOTE | 2016-09-05 11:58 | Progress Note ---
Internal Med Progress Note Date of Service: Sep 05, 2016. Provider Documentation: SUBJECTIVE: Patient is sitting in the chair in no acute distress. Feels weak. Pain has been 4-5 on pain scale of 0-10. Mild intermittent nausea but no vomiting.No BM yet. Some abdominal discomfort. had low grade temp spikes overnight. OBJECTIVE: Vital Signs-as noted below Examination: General Appearance: WD/WN, no apparent distress, + obese Head: normocephalic, atraumatic Eyes: normal inspection, sclerae normal ENT: hearing grossly normal. Ears, Nose & Throat are normal looking. Neck: supple, trachea midline, no JVD Respiratory/Chest: lungs clear, normal breath sounds, no respiratory distress, no accessory muscle use Cardiovascular: regular rate, rhythm, + systolic murmur Abdomen/GI: normal bowel sounds, some pain/discomfort on deep palpation, soft Extremities/Musculoskeletal: no calf tenderness, no pedal edema,left hip dressing in place. SCD's in place. Neurologic/Psych: alert, normal mood/affect, oriented x 3, Grossly nonfocal. Skin: normal color, warm/dry Lab data as noted below. ASSESSMENT & PLAN: S/P Left Total Hip Arthroplasty: POD # 3. Clinically & hemodynamically doing well. Done by Dr. Leavitt -Pain control and bowel regimen per ortho -Monitoring daily H/H for sign of acute blood loss anemia Anemia Due to Acute Blood Loss: Monitoring H/H. -Iron level is low so will start Venofer -Transfuse one unit of PRBC today. Constipation: Stool softeners not helping. -Dulcolax 10 mg X one dose followed by enema X one. Fever: Afebrile now. No clear etiology. Chest X-Ray rules out any infectious process. -Ordered Flu screen -MRSA screen is negative. -Received one dose of Rocephin overnight. Will continue antibiotics if any source is identified. History Diastolic Dysfunction: Clinically appears euvolemic -Monitoring I'S & O's. History Bipolar Disorder/Anxiety: Stable, continue home medications Dementia: Monitor for delirium -Continue Aricept History JOO: Continue CPAP HS with nocturnal O2 DVT PROPHYLAXIS : Per Ortho Thank you for this consultation. We will follow the patient with you during their hospital stay. You can reach a [facility] 19/12 via pager @ . Vital Signs: Date Time Temp Pulse Resp B/P Pulse Ox O2 Delivery O2 Flow Rate FiO2 09/05/16 11:45 36.8 79 19 107/56 91 09/05/16 11:27 36.9 78 12 115/69 94 0.0 09/05/16 11:03 37.3 78 18 132/64 97 09/05/16 07:30 Room Air 09/05/16 07:08 37.3 85 16 121/70 93 Room Air 09/05/16 06:11 37.4 09/05/16 04:05 37.9 09/05/16 01:30 38.2 09/04/16 23:10 Room Air 09/04/16 23:10 38.0 09/04/16 23:09 37.6 09/04/16 23:05 37.9 99 18 148/91 95 Room Air 09/04/16 21:43 CPAP 09/04/16 17:29 36.9 80 18 135/78 94 Room Air 09/04/16 17:00 95 Room Air 09/04/16 16:58 37.4 77 20 137/68 95 Room Air 09/04/16 15:01 37.5 88 18 125/61 97 Room Air Lab Results: Results Past 24 Hours Test 09/04/16 16:26 09/05/16 02:18 09/05/16 06:51 09/05/16 09:33 Range/Units White Blood Count 7.44 4.8-10.8 K/uL Red Blood Count 2.99 4.2-5.4 M/uL Hemoglobin 8.8 7.8 12.0-16.0 g/dL Hematocrit 25.5 22.4 37-47 % Mean Corpuscular Volume 85.3 80-100 fL Mean Corpuscular Hemoglobin 29.4 25-34 pg Mean Corpuscular Hemoglobin Concent 34.5 32-36 g/dl RDW Standard Deviation 45.2 36.4-46.3 fL RDW Coefficient of Variation 14.4 11.5-14.5 % Platelet Count 193 130-400 K/uL Mean Platelet Volume 10.0 7.4-10.4 fL Urine Color YELLOW Urine Appearance CLEAR CLEAR Urine pH 5.5 4.5-7.5 Urine Specific [place] 1.019 1.000-1.030 Urine Protein NEG NEG Urine Glucose (UA) NEG NEG Urine Ketones NEG NEG Urine Occult Blood TRACE NEG Urine Nitrite NEG NEG Urine Bilirubin NEG NEG Urine Urobilinogen NEG NEG Urine Leukocyte Esterase SMALL NEG Urine WBC (Auto) 1-5 0-5 /hpf Urine RBC (Auto) 0-4 0-4 /hpf Urine Hyaline Casts (Auto) 1-5 0-5 /lpf Urine Epithelial Cells (Auto) 20-30 0-5 /lpf Urine Bacteria (Auto) 1+ NEG Urine Yeast (Auto) NONE PRSENT Microbiology Results 09/05/16 Blood Culture, Received Pending 09/05/16 Blood Culture, Received Pending 09/05/16 MRSA DNA Surveillance Screen - Final, Complete Specimen Negative for MRSA by DNA Probe 09/05/16 Urine Culture, Received Pending
[2016-09-05] MEDS ORDERED: MINERAL OIL ENEMA 133 ML BTL PR PRN (12:00)
[2016-09-05] MEDS ORDERED: BISACODYL 10 MG SUPP PR ONE (12:15)
[2016-09-05] MEDS ORDERED: IRON SUCROSE INJ 100 MG in SODIUM CHLORIDE 0.9% 100ML 100 ML IV ONE (13:30)
[2016-09-06 05:38] LABS: BASO % 0.1 %; BASO ABS # 0.01 K/uL (0-0.2); EOS % 3.9 %; HEMATOCRIT 25.3 % (37-47); IG% 0.4 %; LYMPH % 15.6 %; LYMPH ABS # 1.15 K/uL (1.2-3.4); MEAN CELL VOLUME 87.8 fL (80-100); MEAN CORPUSCULAR HEMOGLOBIN 30.6 pg (25-34); MEAN CORPUSCULAR HGB CONC 34.8 g/dl (32-36); MEAN PLATELET VOLUME 9.8 fL (7.4-10.4); MONO % 17.5 %; NEUT % 62.5 %; PLATELET COUNT 230 K/uL (130-400); RED BLOOD COUNT 2.88 M/uL (4.2-5.4); WHITE BLOOD COUNT 7.39 K/uL (4.8-10.8)
[2016-09-06] MEDS: ACETAMINOPHEN 500 MG TAB PO SCH ×2 (05:55→13:28)
[2016-09-06 05:58] LABS: CALCIUM 8.5 mg/dl (8.5-10.1); CREATININE 0.65 mg/dl (0.60-1.20); POTASSIUM 4.5 mmol/L (3.5-5.1)
[2016-09-06 06:05] LABS: COMPLETE YES
[2016-09-06 07:16] VITALS: BP 131/76; PULSE 77; TEMP 37.1; O2SAT 89
[2016-09-06] MEDS: ASPIRIN 325 MG ECTAB PO SCH (08:42)
[2016-09-06] MEDS: DOCUSATE SODIUM 100 MG CAP PO SCH ×2 (08:42→13:26)
[2016-09-06] MEDS: FERROUS GLUCONATE 324 MG TAB PO SCH ×2 (08:42→13:25)
[2016-09-06] MEDS: MULTIVITAMIN TAB PO SCH (08:43)
[2016-09-06] MEDS: GABAPENTIN 100 MG CAP PO SCH ×2 (08:43→13:26)
[2016-09-06] MEDS: GABAPENTIN 400 MG CAP PO SCH ×2 (08:43→14:01)
[2016-09-06] MEDS: PANTOprazole SOD 40 MG TAB PO SCH (08:44)
[2016-09-06] MEDS: FLUOXETINE HCL 20 MG CAP PO SCH (08:44)
[2016-09-06] MEDS: CYANOCOBALAMIN 500 MCG TAB (VIT B-12) PO SCH (08:45)
[2016-09-06] MEDS: CHOLECALCIFEROL 1000 INTER.UNIT TAB PO SCH (08:45)
[2016-09-06] MEDS: POLYETHYLENE (MIRALAX) 17 GM PACK PO SCH (08:50)
--- NOTE | 2016-09-06 09:53 | PROGRESS NOTE ---
DATE: 09/06/2016 DATE: 09/06/2016. SUBJECTIVE: A 70-year-old white female postop day 4 from left total hip replacement. Doing better. The pain seems to be significantly improved. No new complaints. No chest pain or shortness of breath. Not feeling dizzy or lightheaded. OBJECTIVE: VITAL SIGNS: Temperature 37.1. Vital signs stable. PHYSICAL EXAMINATION: GENERAL: Reveals a healthy pleasant elderly female. She is sitting up at her bedside and looks pretty comfortable. EXTREMITIES: Examination of left hip reveals the incision to be clean, dry and intact. Hip is located. She is neurologically intact. LABORATORY DATA: Hemoglobin 8.8. Hematocrit 25.3. Electrolytes are stable. ASSESSMENT: A 70-year-old white female postop day 4 from a left total hip replacement, doing pretty well. Hemoglobin is improved. Pain is improved. We are essentially waiting placement. PLAN: 1. DVT prophylaxis including thigh-high TEDs, SCDs, and aspirin twice a day. 2. PT/OT. Weightbearing as tolerated. Left total hip protocol. 3. Pain control. Doing well with current pain regimen. 4. Disposition. She is hoping to be discharged to [facility] for rehab stay. If not longterm facility. She will not be able to go directly home as she has little help.
[2016-09-06 10:51] VITALS: BP 131/76; PULSE 77; TEMP 37.1; O2SAT 89
[2016-09-06] MEDS: DONEPEZIL HCL 10 MG TAB PO SCH (11:27)
[2016-09-06 12:38] VITALS: BP 127/74; PULSE 79; TEMP 37.3; O2SAT 97
[2016-09-06] MEDS: TRAMADOL HCL 50 MG TAB PO PRN (13:30)
[2016-09-06] MEDS: OXYCODONE HCL IR 5 MG TAB (IMMEDIATE RELEASE) PO PRN (13:35)
[2016-09-06 14:59] VITALS: BP 128/64; PULSE 86; TEMP 37.7; O2SAT 94
[2016-09-06] MEDS ORDERED: ATV1HP PO (17:47)
--- NOTE | 2016-09-13 16:40 | DISCHARGE SUMMARY ---
ADMITTING PHYSICIAN AND SURGEON: Dr. Leavitt. ADMITTING DIAGNOSIS: Left hip degenerative joint disease. SURGERY PERFORMED: Left total hip arthroplasty. SECONDARY DIAGNOSES: Include heart murmur, exertional asthma, sleep apnea, chronic back pain, chronic anemia, gastroesophageal reflux disease, and obesity. CONSULTS: Dr. Hunt, postoperative medical management. HISTORY AND PHYSICAL EXAMINATION: Well documented in the patient's chart. HOSPITAL COURSE: The patient was admitted on 09/02/2016, underwent total hip arthroplasty, tolerated the procedure well. There were no complications. She was transferred to the PACU postoperatively and later to the orthopedic floor for further care. She was given Ancef for antibiotic prophylaxis, JASON stockings, SCDs and aspirin for DVT prophylaxis. Hemoglobin, hematocrit and vital signs were monitored throughout her hospital stay. She did develop some postoperative anemia with a hemoglobin down to 7.8. She was transfused 1 unit of packed red blood cells. There were no complications during her hospital stay. By postoperative day 4, she was tolerating a general diet. Pain was controlled with oral pain medicine. She was participating in physical therapy and had no signs or symptoms of deep vein thrombosis. On postop day 4, she was transferred to a rehab facility. She was given printed discharge instructions including prescriptions for extra strength Tylenol, aspirin 325 mg b.i.d., iron supplement, lorazepam and oxycodone. Continue her home medications with the exception of her home dose of oxycodone, which was discontinued. Continue physical therapy, weightbearing as tolerated, JASON stockings, total hip precautions. Follow up in 10-12 days or sooner if there are any problems or concerns.
[2016-09-16] MEDS ORDERED: DCL/500 PO (08:20)
[2016-10-20] MEDS ORDERED: Boost Nutritional Drink PO (09:52)
[2016-10-20] MEDS ORDERED: CNT PO (09:52)
[2016-10-20] MEDS ORDERED: NRN100 PO (09:52)
[2016-10-20] MEDS ORDERED: MCTP EXT (09:52)
[2016-12-05] MEDS ORDERED: FEXO5TAB2 PO (10:53)
[2016-12-05] MEDS ORDERED: SULF800T23 PO (10:53)
[2016-12-05] MEDS ORDERED: TRAM-10 PO (10:53)
[2016-12-05] MEDS ORDERED: ONDA4TAB46 PO (10:53)
[2016-12-15] MEDS ORDERED: SULF800T23 PO (14:11)
[2016-12-22] MEDS ORDERED: METR0.7510 TOP (12:03)
== END 2016-09-06 16:33 | DRG 470 ==
LOC: ENRESERVDT → ENRESERVTM → C.ACU 08:25 → C.3E 15:45
PROVIDERS: ADMIT Orthopaedic Surgery Sports Medicine; ATTEND Orthopaedic Surgery Sports Medicine
PROC: 0SRB02A Replacement of Left Hip Joint with Metal on Polyethylene Synthetic Substitute, Uncemented, Open Approach (ICD-10-PCS; principal; 2016-09-02 10:40)
DX: M16.12 Unilateral primary osteoarthritis, left hip (principal); D62 Acute posthemorrhagic anemia; R11.0 Nausea; K59.00 Constipation, unspecified; R50.9 Fever, unspecified; M24.552 Contracture, left hip; M85.852 Other specified disorders of bone density and structure, left thigh; M47.816 Spondylosis without myelopathy or radiculopathy, lumbar region; M48.06 Spinal stenosis, lumbar region; I51.9 Heart disease, unspecified; J45.909 Unspecified asthma, uncomplicated; K21.9 Gastro-esophageal reflux disease without esophagitis; G62.9 Polyneuropathy, unspecified; G89.29 Other chronic pain; M54.9 Dorsalgia, unspecified; F03.90 Unspecified dementia, unspecified severity, without behavioral disturbance, psychotic disturbance, mood disturbance, and anxiety; F41.9 Anxiety disorder, unspecified; F31.9 Bipolar disorder, unspecified; F42.9 Obsessive-compulsive disorder, unspecified; G47.33 Obstructive sleep apnea (adult) (pediatric); G47.36 Sleep related hypoventilation in conditions classified elsewhere; E66.9 Obesity, unspecified; Z99.89 Dependence on other enabling machines and devices; Z68.39 Body mass index [BMI] 39.0-39.9, adult; Z99.81 Dependence on supplemental oxygen; Z96.651 Presence of right artificial knee joint; Z79.891 Long term (current) use of opiate analgesic; Z79.899 Other long term (current) drug therapy

== ENCOUNTER → 2016-09-08 | Outpatient (CLI) | payer OTHER ==
[~2016-09-08] MED LIST changes: +ACET-1138 PO; -ACETAMINOPHEN 500 MG TAB PO SCH; +ASPEC325 PO; +ATV1HP PO; +B-COTAB53 PO; +BISA10SU3 PR; -BUPIVACAINE 0.5 % 5 MG/1 ML PF 10ML VIAL ONE; +Boost Nutritional Drink PO; -CEFAZOLIN 2000 MG/60 ML D5W 60 ML IV SCH; +CNT PO; -CYAN10005 SL; +DCL/500 PO; -DIVA250T4 PO; -FAMOTIDINE 20 MG TAB PO SCH; +FEXO5TAB2 PO; +FRRG PO; -GABAPENTIN 300 MG CAP PO SCH; -LACTATED RINGER'S 1000ML 1,000 ML IV SCH; -LACTATED RINGER'S 1000ML 500 ML IV ONE; -LACTATED RINGER'S 1000ML IV SCH; +MCTP EXT; +MELA1TAB5 PO; -METOCLOPRAMIDE HCL 10 MG TAB PO SCH; +METR0.7510 TOP; +MOMLX PO; +NRN100 PO; +ONDA4TAB46 PO; -OXYC1TAB3 PO; +PRNJ PO; +RXC5 PO; -SCOPOLAMINE 1.5 MG TDSY TD SCH; +SENNTAB23 PO; +SODI1ENE21 PR; +SULF800T23 PO; +TRAM-10 PO; -TRANEXAMIC ACID INJ 1,000 MG in SODIUM CHLORIDE 0.9% 100ML 100 ML IV SCH; +[UNRECOGNIZED DRUG - CODE] PO
[2016-09-08 08:52] LABS: BASO % 0.4 %; BASO ABS # 0.02 K/uL (0-0.2); EOS % 7.6 %; IG% 1.2 %; LYMPH % 26.3 %; LYMPH ABS # 1.28 K/uL (1.2-3.4); MEAN CELL VOLUME 87.4 fL (80-100); MEAN CORPUSCULAR HEMOGLOBIN 29.7 pg (25-34); MEAN PLATELET VOLUME 9.3 fL (7.4-10.4); MONO % 17.2 %; NEUT % 47.3 %; PLATELET COUNT 299 K/uL (130-400); RED BLOOD COUNT 2.86 M/uL (4.2-5.4); WHITE BLOOD COUNT 4.87 K/uL (4.8-10.8)
[2016-09-08 09:31] LABS: COMPLETE YES; HYPOCHROMIA PRESENT; POLYCHROMASIA 1+
[2016-09-08 09:48] LABS: BLOOD UREA NITROGEN 14 mg/dl (7-18); BUN/CREATININE RATIO 26.1 (10-20); CALCIUM 8.5 mg/dl (8.5-10.1); CARBON DIOXIDE 33 mmol/L (21-32); CHLORIDE 96 mmol/L (98-107); CREATININE 0.55 mg/dl (0.60-1.20); GLUCOSE 91 mg/dl (70-99); POTASSIUM 4.1 mmol/L (3.5-5.1); SODIUM 135 mmol/L (136-145)
== END ==
LOC: C.LABCC 08:09
PROVIDERS: ATTEND Internal Medicine
DX: D64.9 Anemia, unspecified (principal); E87.1 Hypo-osmolality and hyponatremia

== ENCOUNTER → 2016-09-12 | Outpatient (CLI) | payer OTHER ==
[2016-09-12 08:23] LABS: HEMATOCRIT 27.1 % (37-47); MEAN CELL VOLUME 88.6 fL (80-100); MEAN CORPUSCULAR HEMOGLOBIN 29.4 pg (25-34); MEAN CORPUSCULAR HGB CONC 33.2 g/dl (32-36); MEAN PLATELET VOLUME 8.8 fL (7.4-10.4); PLATELET COUNT 443 K/uL (130-400); RED BLOOD COUNT 3.06 M/uL (4.2-5.4); WHITE BLOOD COUNT 6.33 K/uL (4.8-10.8)
[2016-09-12 08:33] LABS: BLOOD UREA NITROGEN 15 mg/dl (7-18); BUN/CREATININE RATIO 24.3 (10-20); CALCIUM 8.5 mg/dl (8.5-10.1); CARBON DIOXIDE 32 mmol/L (21-32); CHLORIDE 95 mmol/L (98-107); CREATININE 0.63 mg/dl (0.60-1.20); GLUCOSE 96 mg/dl (70-99); SODIUM 133 mmol/L (136-145)
[2016-09-12 08:59] LABS: BASO ABS # 0.06 K/uL (0-0.2); BASOPHIL % 0.9 %; COMPLETE YES; EOSINOPHIL % 7.8 %; LARGE PLATELETS 1+; LYMPH ABS # 1.54 K/uL (1.2-3.4); LYMPHOCYTE % 24.3 %; NEUTROPHILS % 59.2 %
== END | disposition home or self-care (01) ==
LOC: C.LABCC 07:49
PROVIDERS: ATTEND Internal Medicine
DX: E87.1 Hypo-osmolality and hyponatremia (principal); D64.9 Anemia, unspecified

== ENCOUNTER → 2016-09-15 | Outpatient (CLI) | payer OTHER ==
[2016-09-15 10:55] LABS: BLOOD UREA NITROGEN 16 mg/dl (7-18); BUN/CREATININE RATIO 25.8 (10-20); CALCIUM 8.7 mg/dl (8.5-10.1); CARBON DIOXIDE 32 mmol/L (21-32); CHLORIDE 96 mmol/L (98-107); CREATININE 0.63 mg/dl (0.60-1.20); GLUCOSE 93 mg/dl (70-99); POTASSIUM 4.1 mmol/L (3.5-5.1); SODIUM 134 mmol/L (136-145)
== END | disposition home or self-care (01) ==
LOC: C.LABCC 09:17
PROVIDERS: ATTEND Internal Medicine
DX: E87.1 Hypo-osmolality and hyponatremia (principal)

== ENCOUNTER 2016-09-17 07:18 | Inpatient (IN) | payer OTHER ==
[~2016-09-17] VITALS: Ht 160 cm; Wt 101.9 kg
[2016-09-17] VITALS (7 sets, daily range): BP systolic 112–138; BP diastolic 62–73; PULSE 102–125; TEMP 38–39.6; O2SAT 90–99; Ht 160 cm; Wt 101.9 kg
[~2016-09-17 07:18] MED LIST changes: -BISA10SU3 PR; -Boost Nutritional Drink PO; -CNT PO; -FEXO5TAB2 PO; -MCTP EXT; -METR0.7510 TOP; -MOMLX PO; -NRN100 PO; -ONDA4TAB46 PO; -PRNJ PO; -SODI1ENE21 PR; -SULF800T23 PO; -TRAM-10 PO
[2016-09-17] MEDS ORDERED: SODIUM CHLORIDE 0.9% 1000ML 1,000 ML IV ONE (07:31)
[2016-09-17] MEDS ORDERED: VANCOMYCIN INJ 2,000 MG in SODIUM CHLORIDE 0.9% 500ML 500 ML IV STA (07:49)
[2016-09-17] MEDS ORDERED: PIPERACILLIN/TAZOBACTAM 4.5 GM/100ML D5W IV STA (07:49)
--- NOTE | 2016-09-17 07:55 | EMERGENCY ROOM VISIT NOTE ---
ED Visit Note First contact with patient: 07:22 I have personally evaluated and examined this patient. I agree with assessment and plan of Raiza Reyes PA-C. Patient is a 70-year-old female with recent, September 05 left hip replacement. Been doing her physical therapy at [facility] and has had increasing redness and fevers. Physical exam and appears she has a complicated skin and soft tissue infection overlying the surgical wound. We will have orthopedics evaluate the patient and she was started on Zosyn and vancomycin.
[2016-09-17 07:56] LABS: BASO % 0.1 %; BASO ABS # 0.01 K/uL (0-0.2); COMPLETE YES; EOS % 0.8 %; HEMATOCRIT 26.8 % (37-47); IG% 0.5 %; LYMPH % 1.9 %; LYMPH ABS # 0.37 K/uL (1.2-3.4); MEAN CELL VOLUME 89.6 fL (80-100); MEAN CORPUSCULAR HEMOGLOBIN 30.1 pg (25-34); MEAN CORPUSCULAR HGB CONC 33.6 g/dl (32-36); MEAN PLATELET VOLUME 9.1 fL (7.4-10.4); MONO % 5.4 %; NEUT % 91.3 %; PLATELET COUNT 351 K/uL (130-400); RED BLOOD COUNT 2.99 M/uL (4.2-5.4); WHITE BLOOD COUNT 19.46 K/uL (4.8-10.8)
[2016-09-17 08:05] LABS: INR 1.1 (0.9-1.1); PARTIAL THROMBOPLASTIN RATIO 1.1; PROTHROMBIN TIME (PATIENT) 11.9 SECONDS (9.0-12.0)
[2016-09-17 08:15] LABS: BUN/CREATININE RATIO 26.7 (10-20); CREATININE 0.79 mg/dl (0.60-1.20); POTASSIUM 3.7 mmol/L (3.5-5.1)
[2016-09-17 08:19] LABS: ALB/GLOB RATIO 0.6 (0.9-2)
--- NOTE | 2016-09-17 08:19 | DIAGNOSTIC IMAGING REPORT ---
CHEST ONE VIEW PORTABLE CLINICAL HISTORY: Sepsis COMPARISON STUDY: 09/05/2016 FINDINGS: The heart is at the upper limits of normal in size. There is no focal pulmonary consolidation. There is no overt failure. There are no pleural effusions.[ IMPRESSION: No active disease in the chest. Electronically signed by: Connor Oleary M.D. 09/17/2016 8:17 AM Dictated Date/Time: 09/17/2016 8:14 AM
[2016-09-17] MEDS ORDERED: WHEAPOW13 PO (08:20)
[2016-09-17] MEDS ORDERED: SODI1ENE21 PR (08:20)
[2016-09-17] MEDS ORDERED: PRNJ PO (08:20)
[2016-09-17] MEDS ORDERED: MOMLX PO (08:20)
[2016-09-17] MEDS ORDERED: BISA10SU3 PR (08:20)
[2016-09-17] MEDS ORDERED: SODIUM CHLORIDE 0.9% 1000ML 1,000 ML IV STA (08:31)
[2016-09-17 08:50] LABS: CALCIUM 8.2 mg/dl (8.5-10.1)
--- NOTE | 2016-09-17 10:14 | EMERGENCY ROOM VISIT NOTE ---
History First contact with patient: 07:23 Chief Complaint: WOUND INFECTION Stated Complaint: LF HIP WOUND/ INFECTED FR [facility] Nursing Triage Summary: pt here with fever, redness to left hip, recent replacement on 09-[address] leavitt. pt is currently at [facility] for rehab. pt denies any pain. History of Present Illness Patient is a 70-year-old white female who is 2 weeks status post left total hip arthroplasty who is sent to the emergency department by ambulance from her long-term for evaluation of a fever, left hip redness, warmth and drainage that started yesterday. Patient had a left total hip arthroplasty performed by Dr. Leavitt on 09/02, was transferred 09/06. Her postoperative course was unremarkable and she was sent to [facility] for rehabilitation. The patient states that she had been doing well until yesterday. She states when she returned from therapy in the morning she felt fatigued, had chills and was found to be febrile. She reports they gave her an unknown antibiotic by mouth. She reports feeling tired most of the day, and stayed in bed but did participate in therapy in the afternoon. She admits to anorexia. She denies any increased pain in the left hip. She denies any chest pain, palpitations, shortness of breath, cough or sputum production. No abdominal pain, nausea, vomiting or diarrhea. Her bowel movements have been "sluggish." She is chronically incontinent of urine and denies any worsening of this. She denies any dysuria or foul-smelling urine. 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 She otherwise denies any other history of skin infections or abscesses. She has no known history of MRSA. Per medics, the patient was febrile with a temperature of 101.3F orally and she received acetaminophen at 0600 hrs. Review of Systems Review of systems as per HPI. All other systems reviewed were negative. 10 systems reviewed. Past Medical/Surgical History Medical Problems: (1) Anemia (2) Anxiety (3) Bipolar disorder (4) Bipolar disorder (5) Dementia (6) Dementia (7) Diastolic dysfunction (8) Diastolic dysfunction (9) Gastroesophageal reflux disease (10) GERD (gastroesophageal reflux disease) (11) History of endometrial cancer (12) Left Hip DJD (13) Nocturnal hypoxemia (14) OCD (obsessive compulsive disorder) (15) OCD (obsessive compulsive disorder) (16) JOO (obstructive sleep apnea) (17) JOO on CPAP (18) Spinal stenosis Surgical Problems: (1) H/O inguinal hernia repair (2) H/O total hip arthroplasty (3) History of carpal tunnel surgery (4) History of carpal tunnel surgery (5) History of cataract surgery (6) History of hysterectomy (7) History of hysterectomy (8) History of vitrectomy (9) Hx of cataract surgery (10) Hx of cholecystectomy (11) S/P arthroscopy of left knee (12) s/p cholecystectomy (13) s/p colonoscopy (14) s/p ectopic (15) s/p repair inguinal hernia (16) Status post total knee replacement, right (17) Status post total right knee replacement Electronic medical records are reviewed and summarized as above/below. See Problem List. Family History Cancer Heart disease Social History Smoking Status: Never Smoker Alcohol Use: none Drug Use: none Marital Status: Occupation Status: retired Current/Historical Medications Scheduled Acetaminophen (Tylenol Extra Strength), 1,000 MG PO Q8 Aspirin (Aspirin), 325 MG PO BID B-Complex W/ Folic Acid (B Complex), 1 TAB PO DAILY Biotin (Biotin Forte), 3 MG PO DAILY Cholecalciferol (Vitamin D 1000 Unit), 4,000 INTER.UNIT PO QAM Dicloxacillin Sodium (Dynapen), 500 MG PO QID Divalproex Sodium (Depakote Er), 1,000 MG PO HS Donepezil Hydrochloride (Donepezil Hcl), 1 TAB PO QAM Ferrous Gluconate (Ferrous Gluconate), 324 MG PO BIDM Fluoxetine (Prozac), 20 MG PO QAM Gabapentin (Neurontin), 500 MG PO TID Oxygen (Oxygen), 2 LITERS NA HS Pantoprazole (Protonix), 40 MG PO QAM Zinc Acetate (Oral) (Galzin), 25 MG PO QAM Scheduled PRN Bisacodyl (Dulcolax), 1 SUPP MT DAILY PRN for IF NO BM FOR DAY 3 Calcium Carbonate (Tums), 1 TAB PO BID PRN for Indigestion Loperamide Hcl (Imodium), 2 MG PO DIRECTED PRN for Diarrhea Lorazepam (Ativan), 1 MG PO BID PRN for Anxiety Magnesium Hydroxide (Milk of Magnesia), 30 ML PO DAILY PRN for IF NO BM FOR 3 DAYS Ondasetron Odt (Zofran Odt), 4 MG SL Q6H PRN for NAUSEA Oxycodone HCl (Oxycodone HCl), 5 MG PO Q4H PRN for Severe Pain Prune Juice (Prune Juice ), 1 DOSE PO DAILY PRN for IF NO BM IN 2 DAYS Saline (Irion Nasal Douglas), 2 SPRAY CAORL DAILY PRN for CONGESTION Sennosides-Docusate Sodium (Stool Softener), 1 TAB PO DAILY PRN for Constipation Sodium Phosphates (Enema), 1 EA MT DAILY PRN for IF NO BM ON DAY 7 Wheat Dextrin (Benefiber), 1 DOSE PO DAILY PRN for Constipation Allergies Coded Allergies: Adhesives (Verified Allergy, Unknown, ADHESIVE TAPE -- BLISTERS, 09/17/16) Cetirizine (Verified Allergy, Unknown, SORES IN MOUTH, HEAD CONGESTION, ) Dicloxacillin (Unverified Allergy, Unknown, MOUTH SORE, 09/17/16) Erythromycin (Verified Allergy, Unknown, SORES IN MOUTH, 09/17/16) Tetracycline (Verified Adverse Reaction, Intermediate, NAUSEA, 09/17/16) Codeine (Verified Adverse Reaction, Mild, NAUSEA, 09/17/16) Doxycycline (Verified Adverse Reaction, Mild, NAUSEA, 09/17/16) Morphine (Verified Adverse Reaction, Unknown, "MAKES ME FEEL LOOPY", ) Physical Exam Vital Signs Date Time Temp Pulse Resp B/P Pulse Ox O2 Delivery O2 Flow Rate FiO2 09/17/16 09:26 93 16 130/82 99 Nasal Cannula 2.0 09/17/16 08:45 96 Room Air 09/17/16 08:05 87 16 106/44 96 Room Air 09/17/16 07:52 94 Room Air 09/17/16 07:40 37.9 98 16 109/46 92 Room Air 09/17/16 07:35 98 Physical Exam CONSTITUTIONAL: Patient is a well-appearing 70-year-old white female who is awake and alert and in no acute distress. She appears fatigued although nontoxic. Temperature 37.9C orally, blood pressure 109/46, heart rate 98 and regular. Oxygen saturation is 92% on air. EYES: Pupils equal, round, reactive to light and accommodation. EOMs intact without nystagmus. Sclera are anicteric. She has slight crusting and mucoid drainage noted from the eyes, right worse than left, no conjunctival injection or swelling. No periorbital edema. ENT: Tympanic membranes intact, with normal landmarks. External canals are clear. Oral and nasopharynx are clear. Mucous membranes are moist, no lesions , tongue and gums appear normal. NECK: No bruits auscultated. Supple without lymphadenopathy. No thyromegaly. No meningeal signs. Full active range of motion without discomfort. CARDIOVASCULAR: Regular rate and rhythm, systolic ejection murmur noted at the left sternal border. Peripheral pulses easy to palpable. RESPIRATORY: Breath sounds equal and clear to auscultation without wheezes, rales, or rhonchi heard. Full and equal chest expansion without accessory muscle use or retractions. GI: Bowel sounds are present. Multiple well-healed surgical scars are noted. Abdomen is soft, nontender, nondistended. No organomegaly. No pulsatile masses. No guarding or rebound. MUSCULOSKELETAL: Examination of the left hip showed well approximated healing surgical incision intact with kamar. There is slight purulent crusting noted. She has erythema, warmth and induration surrounding the incision site. Range of motion of the hip is not assessed due to her postoperative status. No cyanosis or significant pitting edema. No deformity. INTEGUMENTARY: Erythematous, weeping intertriginous rash noted in the superpubic and left abdominal pannus crease. NEUROLOGICAL: Alert, oriented, and cooperative. Cranial nerves, sensation and strength grossly intact. Pupils round, equal, and react to light, EOMs are full. LYMPH: No lymphadenopathy. Medical Decision & Procedures ER Provider Diagnostic Interpretation: CHEST ONE VIEW PORTABLE CLINICAL HISTORY: Sepsis COMPARISON STUDY: 09/05/2016 FINDINGS: The heart is at the upper limits of normal in size. There is no focal pulmonary consolidation. There is no overt failure. There are no pleural effusions. IMPRESSION: No active disease in the chest. Laboratory Results 09/17/16 07:35 Red Blood Count 2.99, Mean Corpuscular Volume 89.6, Mean Corpuscular Hemoglobin 30.1, Mean Corpuscular Hemoglobin Concent 33.6, Mean Platelet Volume 9.1, Neutrophils (%) (Auto) 91.3, Lymphocytes (%) (Auto) 1.9, Monocytes (%) (Auto) 5.4, Eosinophils (%) (Auto) 0.8, Basophils (%) (Auto) 0.1, Neutrophils # (Auto) 17.78, Lymphocytes # (Auto) 0.37, Monocytes # (Auto) 1.06, Eosinophils # (Auto) 0.15, Basophils # (Auto) 0.01 09/17/16 07:35 Test 09/17/16 07:35 09/17/16 07:45 White Blood Count 19.46 K/uL (4.8-10.8) Red Blood Count 2.99 M/uL (4.2-5.4) Hemoglobin 9.0 g/dL (12.0-16.0) Hematocrit 26.8 % (37-47) Mean Corpuscular Volume 89.6 fL (80-100) Mean Corpuscular Hemoglobin 30.1 pg (25-34) Mean Corpuscular Hemoglobin Concent 33.6 g/dl (32-36) Platelet Count 351 K/uL (130-400) Mean Platelet Volume 9.1 fL (7.4-10.4) Neutrophils (%) (Auto) 91.3 % Lymphocytes (%) (Auto) 1.9 % Monocytes (%) (Auto) 5.4 % Eosinophils (%) (Auto) 0.8 % Basophils (%) (Auto) 0.1 % Neutrophils # (Auto) 17.78 K/uL (1.4-6.5) Lymphocytes # (Auto) 0.37 K/uL (1.2-3.4) Monocytes # (Auto) 1.06 K/uL (0.11-0.59) Eosinophils # (Auto) 0.15 K/uL (0-0.5) Basophils # (Auto) 0.01 K/uL (0-0.2) RDW Standard Deviation 50.3 fL (36.4-46.3) RDW Coefficient of Variation 15.3 % (11.5-14.5) Immature Granulocyte % (Auto) 0.5 % Immature Granulocyte # (Auto) 0.09 K/uL (0.00-0.02) Prothrombin Time 11.9 SECONDS (9.0-12.0) Prothromb Time International Ratio 1.1 (0.9-1.1) Activated Partial Thromboplast Time 28.7 SECONDS (21.0-31.0) Partial Thromboplastin Ratio 1.1 Anion Gap 8.0 mmol/L (3-11) Est Creatinine Clear Calc Drug Dose 75.0 ml/min Estimated GFR () 86.7 Estimated GFR (Non- 74.8 BUN/Creatinine Ratio 26.7 (10-20) Calcium Level 8.2 mg/dl (8.5-10.1) Total Bilirubin 0.5 mg/dl (0.2-1) Aspartate Amino Transf (AST/SGOT) 23 U/L (15-37) Alanine Aminotransferase (ALT/SGPT) 16 U/L (12-78) Alkaline Phosphatase 87 U/L (45-117) Total Protein 6.4 gm/dl (6.4-8.2) Albumin 2.3 gm/dl (3.4-5.0) Globulin 4.1 gm/dl (2.5-4.0) Albumin/Globulin Ratio 0.6 (0.9-2) Bedside Lactic Acid Venous 0.51 mmol/L (0.90-1.70) Medications Administered Medications (Trade) Dose Ordered Sig/Quan Route Start Time Stop Time Status Last Admin Dose Admin Sodium Chloride (Nss 1000ml) 1,000 ml @ 999 mls/hr Q1H1M ONCE IV 09/17/16 07:31 09/17/16 08:31 DC 09/17/16 08:17 999 MLS/HR Piperacillin Sod/ Tazobactam Sod 4.5 gm 4.5 gm NOW STAT IV 09/17/16 07:49 09/17/16 07:52 DC 09/17/16 08:18 4.5 GM Vancomycin HCl/ Sodium Chloride (Vancomycin Inj/ Nss 500ml) 540 ml @ 200 mls/hr ONE STAT IV 09/17/16 07:49 09/17/16 10:30 DC 09/17/16 09:26 200 MLS/HR ED Course The patient was seen and evaluated as above. Her old records are reviewed. IV access was obtained and she was hydrated with a liter bolus of normal saline solution, then 250 mL per hour. 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 Laboratory studies were collected including CBC with differential, CMP, coags and blood cultures 2. Sevilla catheter was ordered, however multiple attempts by nursing staff were unsuccessful and therefore this was aborted and urine sample has yet to be obtained. [id number] lactic acid was performed and was not elevated at 0.51. Patient history and presentation were reviewed with Dr. Santillan who also independently evaluated the patient. Antibiotic regimen was agreed upon. She was given Zosyn 4.5 mg IV and vancomycin 2 g IV. The patient remained hemodynamically stable while in the emergency department. Patient's laboratory studies revealed a white count of 19,400, with left shift and bandemia. Stable postoperative anemia noted with an H&H of 9 and 26.8. Electrolytes sodium 133, potassium 3.4, chloride 96, carbon dioxide 29, BUN 21 and creatinine 0.79. Liver functions are not elevated. INR is normal. I discussed the patient with Dr. Rodriguez who was covering for Dr. Leavitt the patient's primary surgeon. He agreed with IV antibiotics, and further management per medical service. [facility]. Patient is a 70-year-old white female who is 2 weeks status post left total hip arthroplasty. She has findings consistent with cellulitis involving the left hip, adjacent to her surgical site. She does also have some chronic intertriginous candidiasis of the abdomen, but no overt cellulitic changes there. Differential diagnoses include cellulitis, wound infection, abscess, septic joint, pneumonia, UTI, sepsis, among others. Medical Decision See ED course. Impression Primary Impression: Cellulitis of left hip Additional Impressions: Wound infection after surgery History of total left hip arthroplasty Departure Information Dispostion Being Evaluated By Hospitalist Referrals Jose M Seth MD (PCP) Patient Instructions My [facility] Problem Qualifiers
--- NOTE | 2016-09-17 10:15 | Surgery Consultation ---
Consultation Date of Consultation: Sep 17, 2016. Attending Physician: Reason for Consultation: 2 weeks S/P left EFREM, concern for infection. History of Present Illness Kathy is a pleasant 70-year-old female who is 2 weeks status post left EFREM, by Dr. Leavitt on September 03, 2016, and has been at [facility] and was to be discharged today but was sent to the emergency room due to fever and concern regarding more incision. Past Medical/Surgical History Medical Problems: (1) Abdominal pain Status: Acute (2) Anemia Status: Chronic (3) Anxiety Status: Chronic (4) Bipolar disorder Status: Chronic (5) Dementia Status: Chronic (6) Diastolic dysfunction Permanent Comment: echo 05/2015 - EF 55-60%, grade II diastolic dysfunction Status: Chronic (7) H/O Endometrial cancer. (8) Facial cellulitis Status: Acute (9) Sleep apnea with CPAP machine. Status: Chronic (10) GERD (gastroesophageal reflux disease) Status: Acute (11) Nocturnal hypoxemia Status: Chronic (12) OCD (obsessive compulsive disorder) Status: Chronic (13) Spinal stenosis Status: Chronic Past surgical history: 1. Hysterectomy. 2. Cholecystectomy. 3. 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 4. Carpal tunnel release. Family History Cancer Heart disease Social History Smoking Status: Never Smoker Drug Use: none Marital Status: Occupation Status: retired Allergies Coded Allergies: Adhesives (Verified Allergy, Unknown, ADHESIVE TAPE -- BLISTERS, 09/17/16) Cetirizine (Verified Allergy, Unknown, SORES IN MOUTH, HEAD CONGESTION, ) Dicloxacillin (Unverified Allergy, Unknown, MOUTH SORE, 09/17/16) Erythromycin (Verified Allergy, Unknown, SORES IN MOUTH, 09/17/16) Tetracycline (Verified Adverse Reaction, Intermediate, NAUSEA, 09/17/16) Codeine (Verified Adverse Reaction, Mild, NAUSEA, 09/17/16) Doxycycline (Verified Adverse Reaction, Mild, NAUSEA, 09/17/16) Morphine (Verified Adverse Reaction, Unknown, "MAKES ME FEEL LOOPY", ) Home Medications Scheduled Acetaminophen (Tylenol Extra Strength), 1,000 MG PO Q8 Aspirin (Aspirin), 325 MG PO BID B-Complex W/ Folic Acid (B Complex), 1 TAB PO DAILY Biotin (Biotin Forte), 3 MG PO DAILY Cholecalciferol (Vitamin D 1000 Unit), 4,000 INTER.UNIT PO QAM Dicloxacillin Sodium (Dynapen), 500 MG PO QID Divalproex Sodium (Depakote Er), 1,000 MG PO HS Donepezil Hydrochloride (Donepezil Hcl), 1 TAB PO QAM Ferrous Gluconate (Ferrous Gluconate), 324 MG PO BIDM Fluoxetine (Prozac), 20 MG PO QAM Gabapentin (Neurontin), 100 MG PO TID Gabapentin (Neurontin), 400 MG PO TID Oxygen (Oxygen), 2 LITERS NA HS Pantoprazole (Protonix), 40 MG PO QAM Zinc Acetate (Oral) (Galzin), 25 MG PO QAM Scheduled PRN Bisacodyl (Dulcolax), [address] DAILY PRN for IF NO BM FOR DAY 3 Calcium Carbonate (Tums), 1 TAB PO BID PRN for Indigestion Loperamide Hcl (Imodium), 2 MG PO DIRECTED PRN for Diarrhea Lorazepam (Ativan), 1 MG PO BID PRN for Anxiety Magnesium Hydroxide (Milk of Magnesia), 30 ML PO DAILY PRN for IF NO BM FOR 3 DAYS Melatonin ( Melatonin), 1 TAB PO HS PRN for Sleep Ondasetron Odt (Zofran Odt), 4 MG SL Q6H PRN for NAUSEA Oxycodone HCl (Oxycodone HCl), 5 MG PO Q4H PRN for Severe Pain Prune Juice (Prune Juice ), 1 DOSE PO DAILY PRN for IF NO BM IN 2 DAYS Saline ([place] Nasal [place]), 2 SPRAY CAROL DAILY PRN for CONGESTION Sennosides-Docusate Sodium (Stool Softener), 1 TAB PO DAILY PRN for Constipation Sodium Phosphates (Enema), [address] DAILY PRN for IF NO BM ON DAY 7 Wheat Dextrin (Benefiber), 1 DOSE PO DAILY PRN for Constipation Current Inpatient Medications Current Inpatient Medications Medications (Trade) Dose Ordered Sig/Quan Route Start Time Stop Time Status Last Admin Dose Admin Vancomycin HCl 2000 mg/Sodium Chloride 540 ml @ 200 mls/hr ONE STAT IV 09/17/16 07:49 09/17/16 10:30 09/17/16 09:26 200 MLS/HR Sodium Chloride (Nss 1000ml) 1,000 ml @ 250 mls/hr Q4H STAT IV 09/17/16 08:31 09/17/16 12:30 Review of Systems A 10-point review of systems from the emergency room is noted in the hospital medical record. Physical Exam Date Time Temp Pulse Resp B/P Pulse Ox O2 Delivery O2 Flow Rate FiO2 09/17/16 08:45 96 Room Air 09/17/16 08:05 87 16 106/44 96 Room Air 09/17/16 07:52 94 Room Air 09/17/16 07:40 37.9 98 16 109/46 92 Room Air 09/17/16 07:35 98 General Appearance: WD/WN, no apparent distress Extremities/Musculoskelatal: + pertinent finding (Focusing on her left lower extremity, she is wiggling her toes and ankle. Sensation to light touch is intact distally. Brisk cap refill. She has a long incision that appears dry and intact. There is some slight erythema surrounding the staple line which may be due to staple irritation. I am unable to express any fluid by milking the wound and thigh. I was able to remove some fibrinous material overlying one of the kamar. She is able to assist in positioning and rolling. Her calf is soft and nontender.) Laboratory Results Last 24 Hours Test 09/17/16 07:35 09/17/16 07:45 White Blood Count 19.46 K/uL Red Blood Count 2.99 M/uL Hemoglobin 9.0 g/dL Hematocrit 26.8 % Mean Corpuscular Volume 89.6 fL Mean Corpuscular Hemoglobin 30.1 pg Mean Corpuscular Hemoglobin Concent 33.6 g/dl Platelet Count 351 K/uL Mean Platelet Volume 9.1 fL Neutrophils (%) (Auto) 91.3 % Lymphocytes (%) (Auto) 1.9 % Monocytes (%) (Auto) 5.4 % Eosinophils (%) (Auto) 0.8 % Basophils (%) (Auto) 0.1 % Neutrophils # (Auto) 17.78 K/uL Lymphocytes # (Auto) 0.37 K/uL Monocytes # (Auto) 1.06 K/uL Eosinophils # (Auto) 0.15 K/uL Basophils # (Auto) 0.01 K/uL RDW Standard Deviation 50.3 fL RDW Coefficient of Variation 15.3 % Immature Granulocyte % (Auto) 0.5 % Immature Granulocyte # (Auto) 0.09 K/uL Prothrombin Time 11.9 SECONDS Prothromb Time International Ratio 1.1 Activated Partial Thromboplast Time 28.7 SECONDS Partial Thromboplastin Ratio 1.1 Sodium Level 133 mmol/L Potassium Level 3.7 mmol/L Chloride Level 96 mmol/L Carbon Dioxide Level 29 mmol/L Anion Gap 8.0 mmol/L Blood Urea Nitrogen 21 mg/dl Creatinine 0.79 mg/dl Est Creatinine Clear Calc Drug Dose 75.0 ml/min Estimated GFR () 86.7 Estimated GFR (Non- 74.8 BUN/Creatinine Ratio 26.7 Random Glucose 109 mg/dl Calcium Level 8.2 mg/dl Total Bilirubin 0.5 mg/dl Aspartate Amino Transf (AST/SGOT) 23 U/L Alanine Aminotransferase (ALT/SGPT) 16 U/L Alkaline Phosphatase 87 U/L Total Protein 6.4 gm/dl Albumin 2.3 gm/dl Globulin 4.1 gm/dl Albumin/Globulin Ratio 0.6 Bedside Lactic Acid Venous 0.51 mmol/L Assessment & Plan IMPRESSION: 2 weeks status post left EFREM, thigh erythema, likely due to staple irritation versus cellulitis, does not appear to be a deep infection. PLAN: After discussing with Dr. Leavitt, and the patient with her family, she can complete the course of IV antibiotics in the emergency room and then be sent home on by mouth antibiotics. She will continue with total hip precautions and can be seen and followed as an outpatient by Dr. Leavitt. She has an appointment on Monday already scheduled. The patient understood all my instructions and explanation; all their questions were satisfactorily addressed. Thank you for allowing to participate in this Kathy's care.
[2016-09-17] MEDS ORDERED: ONDANSETRON INJ 2 MG/ML 2 ML VIAL IV PRN (10:30)
[2016-09-17] MEDS ORDERED: ACETAMINOPHEN 325 MG TAB PO PRN (10:30)
[2016-09-17] MEDS ORDERED: DOCUSATE SODIUM/SENNA 50/8.6MG TAB PO PRN (10:45)
[2016-09-17] MEDS ORDERED: VANCOMYCIN CONSULT ACTIVE SCH (10:59)
[2016-09-17] MEDS ORDERED: OPTIRAY 320 IV PRN (11:00)
[2016-09-17] MEDS ORDERED: PIPERACILL/TAZOBAC CONSULT ACTIVE SCH (11:15)
--- NOTE | 2016-09-17 11:43 | DIAGNOSTIC IMAGING REPORT ---
CT LEFT HIP-LOWER EXTREMITY WITH CT DOSE: 890.85 mGy.cm CLINICAL HISTORY: Left hip pain. Wound infection. Evaluate for fluid collection. History of left hip replacement. TECHNIQUE: Helical images were acquired in the transverse plane. COMPARISON STUDY: Conventional radiographic study dated 09/02/2016 FINDINGS: There is artifact secondary to a total left hip arthroplasty. No acute fractures are visualized. There is soft tissue edema within the left lateral thigh and hip. There is no pathologic joint effusion however evaluation of the joint is limited due to streak artifact. There is a partially visualized 6 cm collection within the subcutaneous soft tissues lateral to the left gluteus musculature. It is not possible to determine whether this collection is infected. IMPRESSION: 1. 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 No evidence of fracture 3. No significant joint effusion although the examination is limited due to streak artifact 4. Partially visualized 6 cm collection within the subcutaneous tissues lateral to the left gluteal musculature. This is not possible on the basis of this study to determine whether this collection is infected or sterile. Electronically signed by: Connor Oleary M.D. 09/17/2016 11:41 AM Dictated Date/Time: 09/17/2016 11:35 AM
--- NOTE | 2016-09-17 11:46 | History and Physical ---
History & Physical Date & Time of Service: Sep 17, 2016 at 11:15 Chief Complaint: Fever, Weakness Primary Care Physician: Jose M Seth MD History of Present Illness 70 year old female who presents to the ER with fever and generalized weakness. Patient underwent left total hip replacement on 09/[address] Leavitt. She was discharged from [facility] on 09/06 to [facility] for rehab. Patient reports she had been doing well and was actually supposed to be discharged today. However yesterday she reports she had a fever and felt very weak. Patient's incision site was noted to be red and she was started on dicloxacillin. Patient did not have any improvement this morning so she was sent to the ER for further evaluation. She reports her left hip pain has been controlled. Patient denies chest pain, shortness of breath, cough, or sputum production. No abdominal pain , nausea, vomiting, or diarrhea. She denies lightheadedness, dizziness, diaphoresis, and syncopal events. No urinary symptoms. In the ER, patient is found to have a low grade fever, tachycardia, and WBC 19K. BP is stable, lactic acid is normal. Left hip incision exam is consistent with cellulitis. She was given IVF, IV Vanco, and Zosyn. Past Medical/Surgical History Medical Problems: (1) Anemia Status: Chronic (2) Anxiety Status: Chronic (3) Bipolar disorder Status: Chronic (4) Bipolar disorder Status: Chronic (5) Dementia Status: Chronic (6) Dementia Status: Chronic (7) Diastolic dysfunction Permanent Comment: echo 05/2015 - EF 55-60%, grade II diastolic dysfunction Status: Chronic (8) Diastolic dysfunction Status: Chronic (9) Gastroesophageal reflux disease Status: Chronic (10) GERD (gastroesophageal reflux disease) Status: Chronic (11) History of endometrial cancer Permanent Comment: Postmenopausal vaginal bleeding Abnormal pelvic ultrasound and endometrial biopsy Repeat endometrial biopsy positive 08/13/2012 revealing poorly differentiated adenocarcinoma Status post total abdominal hysterectomy bilateral salpingo-oophorectomy with pelvic and periaortic lymph node sampling Stage [id number], grade 3, stage I b Status post completion of radiation therapy utilizing IMRT completed 06/21/2013 received 5040 cGy external beam therapy followed by 2 HDR treatments June 13 and June 23, total 5840 cGy Status: Resolved (12) Left Hip DJD Status: Resolved (13) Nocturnal hypoxemia Status: Chronic (14) OCD (obsessive compulsive disorder) Status: Chronic (15) OCD (obsessive compulsive disorder) Status: Chronic (16) JOO (obstructive sleep apnea) Status: Chronic (17) JOO on CPAP Status: Chronic (18) Spinal stenosis Status: Chronic Surgical Problems: (1) H/O inguinal hernia repair Status: Chronic (2) H/O total hip arthroplasty Status: Resolved (3) History of carpal tunnel surgery Status: Resolved (4) History of carpal tunnel surgery Status: Chronic (5) History of cataract surgery Status: Chronic (6) History of hysterectomy Status: Resolved (7) History of hysterectomy Status: Chronic (8) History of vitrectomy Status: Resolved (9) Hx of cataract surgery Status: Resolved (10) Hx of cholecystectomy Status: Chronic (11) S/P arthroscopy of left knee Status: Resolved (12) s/p cholecystectomy Status: Resolved (13) s/p colonoscopy Status: Resolved (14) s/p ectopic Status: Resolved (15) s/p repair inguinal hernia Status: Resolved (16) Status post total knee replacement, right Status: Chronic (17) Status post total right knee replacement Status: Resolved Family History Heart disease MOTHER Social History Smoking Status: Never Smoker Alcohol Use: none Immunizations History of Influenza Vaccine: Yes Influenza Vaccine Date: Feb 10, 2016 History of Tetanus Vaccine?: Yes Tetanus Immunization Date: Aug 12, 2010 History of Pneumococcal: Yes Pneumococcal Date: Jun 30, 2014 Allergies Coded Allergies: Adhesives (Verified Allergy, Unknown, ADHESIVE TAPE -- BLISTERS, 09/17/16) Cetirizine (Verified Allergy, Unknown, SORES IN MOUTH, HEAD CONGESTION, ) Dicloxacillin (Unverified Allergy, Unknown, MOUTH SORE, 09/17/16) Erythromycin (Verified Allergy, Unknown, SORES IN MOUTH, 09/17/16) Tetracycline (Verified Adverse Reaction, Intermediate, NAUSEA, 09/17/16) Codeine (Verified Adverse Reaction, Mild, NAUSEA, 09/17/16) Doxycycline (Verified Adverse Reaction, Mild, NAUSEA, 09/17/16) Morphine (Verified Adverse Reaction, Unknown, "MAKES ME FEEL LOOPY", ) Home Medications Scheduled Acetaminophen (Tylenol Extra Strength), 1,000 MG PO Q8 Aspirin (Aspirin), 325 MG PO BID B-Complex W/ Folic Acid (B Complex), 1 TAB PO DAILY Biotin (Biotin Forte), 3 MG PO DAILY Cholecalciferol (Vitamin D 1000 Unit), 4,000 INTER.UNIT PO QAM Dicloxacillin Sodium (Dynapen), 500 MG PO QID Divalproex Sodium (Depakote Er), 1,000 MG PO HS Donepezil Hydrochloride (Donepezil Hcl), 1 TAB PO QAM Ferrous Gluconate (Ferrous Gluconate), 324 MG PO BIDM Fluoxetine (Prozac), 20 MG PO QAM Gabapentin (Neurontin), 500 MG PO TID Oxygen (Oxygen), 2 LITERS NA HS Pantoprazole (Protonix), 40 MG PO QAM Zinc Acetate (Oral) (Galzin), 25 MG PO QAM Scheduled PRN Bisacodyl (Dulcolax), 1 SU[address] MT DAILY PRN for IF NO BM FOR DAY 3 Calcium Carbonate (Tums), 1 TAB PO BID PRN for Indigestion Loperamide Hcl (Imodium), 2 MG PO DIRECTED PRN for Diarrhea Lorazepam (Ativan), 1 MG PO BID PRN for Anxiety Magnesium Hydroxide (Milk of Magnesia), 30 ML PO DAILY PRN for IF NO BM FOR 3 DAYS Ondasetron Odt (Zofran Odt), 4 MG SL Q6H PRN for NAUSEA Oxycodone HCl (Oxycodone HCl), 5 MG PO Q4H PRN for Severe Pain Prune Juice (Prune Juice ), 1 DOSE PO DAILY PRN for IF NO BM IN 2 DAYS Saline ([place] Nasal [place]), 2 SPRAY CAROL DAILY PRN for CONGESTION Sennosides-Docusate Sodium (Stool Softener), 1 TAB PO DAILY PRN for Constipation Sodium Phosphates (Enema), 1 EA MT DAILY PRN for IF NO BM ON DAY 7 Wheat Dextrin (Benefiber), 1 DOSE PO DAILY PRN for Constipation Review of Systems 10 point review of systems was completed with the pertinent positives and negatives noted per the HPI Physical Exam Vital Signs Date Time Temp Pulse Resp B/P Pulse Ox O2 Delivery O2 Flow Rate FiO2 09/17/16 10:38 99 16 110/74 100 Nasal Cannula 2.0 09/17/16 10:29 99 Nasal Cannula 2.0 09/17/16 09:26 93 16 130/82 99 Nasal Cannula 2.0 09/17/16 08:45 96 Room Air 09/17/16 08:05 87 16 106/44 96 Room Air 09/17/16 07:52 94 Room Air 09/17/16 07:40 37.9 98 16 109/46 92 Room Air 09/17/16 07:35 98 General Appearance: no apparent distress Head: normocephalic Eyes: normal inspection ENT: hearing grossly normal Neck: supple, no JVD Respiratory/Chest: lungs clear, normal breath sounds, no respiratory distress Cardiovascular: regular rate, rhythm, normal peripheral pulses, + pertinent finding (trace edema BLLE) Abdomen/GI: normal bowel sounds, non tender, soft Extremities/Musculoskelatal: + pertinent finding (kamar intact to left lateral hip; erythema, warm, and firmness noted to lateral left thigh surrounding the kamar; small amount of purulent drainage noted on dressing) Neurologic/Psych: no motor/sensory deficits, alert, normal mood/affect, oriented x 3 Skin: + pertinent finding (left hip as noted above; left abomdinal fold severely excoriated, moist, and with foul odor) General- awake; alert; chills Eyes- EOMI; no scleral icterus Neck- no stridor; trachea midline Lungs- CTA bilaterally anteriorly Heart- RRR; no m/r/g Abdomen- soft; NT; nBS Extremities- trace LE edema; no deformity Neuro- no focal deficits Skin- erythema surrounding left thigh incision; kamar intact; erythema and suppurative discharge left abdominal pannus fold . Diagnostics Laboratory Results Results Past 24 Hours Test 09/17/16 07:35 09/17/16 07:45 Range/Units White Blood Count 19.46 4.8-10.8 K/uL Red Blood Count 2.99 4.2-5.4 M/uL Hemoglobin 9.0 12.0-16.0 g/dL Hematocrit 26.8 37-47 % Mean Corpuscular Volume 89.6 80-100 fL Mean Corpuscular Hemoglobin 30.1 25-34 pg Mean Corpuscular Hemoglobin Concent 33.6 32-36 g/dl Platelet Count 351 130-400 K/uL Mean Platelet Volume 9.1 7.4-10.4 fL Neutrophils (%) (Auto) 91.3 % Lymphocytes (%) (Auto) 1.9 % Monocytes (%) (Auto) 5.4 % Eosinophils (%) (Auto) 0.8 % Basophils (%) (Auto) 0.1 % Neutrophils # (Auto) 17.78 1.4-6.5 K/uL Lymphocytes # (Auto) 0.37 1.2-3.4 K/uL Monocytes # (Auto) 1.06 0.11-0.59 K/uL Eosinophils # (Auto) 0.15 0-0.5 K/uL Basophils # (Auto) 0.01 0-0.2 K/uL RDW Standard Deviation 50.3 36.4-46.3 fL RDW Coefficient of Variation 15.3 11.5-14.5 % Immature Granulocyte % (Auto) 0.5 % Immature Granulocyte # (Auto) 0.09 0.00-0.02 K/uL Prothrombin Time 11.9 9.0-12.0 SECONDS Prothromb Time International Ratio 1.1 0.9-1.1 Activated Partial Thromboplast Time 28.7 21.0-31.0 SECONDS Partial Thromboplastin Ratio 1.1 Sodium Level 133 136-145 mmol/L Potassium Level 3.7 3.5-5.1 mmol/L Chloride Level 96 98-107 mmol/L Carbon Dioxide Level 29 21-32 mmol/L Anion Gap 8.0 3-11 mmol/L Blood Urea Nitrogen 21 7-18 mg/dl Creatinine 0.79 0.60-1.20 mg/dl Est Creatinine Clear Calc Drug Dose 75.0 ml/min Estimated GFR () 86.7 Estimated GFR (Non- 74.8 BUN/Creatinine Ratio 26.7 10-20 Random Glucose 109 70-99 mg/dl Calcium Level 8.2 8.5-10.1 mg/dl Total Bilirubin 0.5 0.2-1 mg/dl Aspartate Amino Transf (AST/SGOT) 23 15-37 U/L Alanine Aminotransferase (ALT/SGPT) 16 12-78 U/L Alkaline Phosphatase 87 45-117 U/L Total Protein 6.4 6.4-8.2 gm/dl Albumin 2.3 3.4-5.0 gm/dl Globulin 4.1 2.5-4.0 gm/dl Albumin/Globulin Ratio 0.6 0.9-2 Bedside Lactic Acid Venous 0.51 0.90-1.70 mmol/L Microbiology Results 4/22/17 Blood Culture, Received Pending 09/17/16 Blood Culture, Received Pending Diagnostic Radiology CXR IMPRESSION: No active disease in the chest. Impression Assessment and Plan LEFT HIP CELLULITIS, HX RECENT LEFT EFREM - admit to med/surg - patient s/p left EFREM 09/[address] Leavitt, discharged on 09/06 to [facility] for rehab; presenting with fever and generalized weakness; found to have incisional site cellulitis - WBC 19K, mild tachycardia, low grade fever, BP stable, lactic acid WNL - s/p Vanco and Zosyn in the ER, will continue with - blood and wound cultures - ortho consult - patient evaluated by Dr. Rodriguez in the ER - will obtain CT hip to evaluate for fluid collection ANEMIA - likely due to blood loss from recent surgery, no signs of bleeding - hgb at baseline from prior admission - no role for transfusion - continue to monitor, continue iron replacement DEMENTIA, BIPOLAR - continue home meds GERD - continue PPI LEFT ABDOMINAL FOLD EXCORIATION - will start antifungal / steroid cream - wound care nurse consult DVT PROPHYLAXIS - continue ASA 325mg BID per ortho recommendations at discharge CODE STATUS - Patient is a full code as per my discussion with her. DISPO - In my clinical judgment this beneficiary meets acute admission criteria, established by [facility], that includes being hospitalized through two midnights. --- LEFT HIP CELLULITIS, HX RECENT LEFT EFREM - patient s/p left EFREM 09/[address] Leavitt, discharged on 09/06 to [facility] for rehab; presenting with fever and generalized weakness - WBC 19K, mild tachycardia, low grade fever, BP stable, lactic acid WNL - s/p Vanco and Zosyn in the ER - continue with Vancomycin - blood and wound cultures pending - ortho consulted - CT hip without significant joint effusion and 6cm collection in gluteal musculature -> d/w Ortho ANEMIA - likely due to blood loss from recent surgery, no signs of bleeding - hgb stable from prior admission - no role for transfusion - continue iron replacement DEMENTIA, BIPOLAR - continue divalproex, donepezil, fluoxetine GERD - continue PPI LEFT ABDOMINAL FOLD MACERATION - exam is c/w topical shweta - start antifungal / steroid cream - wound care nurse consulted DVT PROPHYLAXIS - continue ASA 325mg BID per ortho recommendations from previous discharge CODE STATUS - Full code PT/OT evaluations to determine discharge disposition. Advanced Directives Existing Living Will: No Existing Power of Gas Appliance Repairer: No VTE Prophylaxis VTE Risk Assessment Done? Y/N: Yes Risk Level: Moderate
[2016-09-17] MEDS ORDERED: SODIUM CHLORIDE 0.9% 1000ML 1,000 ML IV SCH (11:59)
[2016-09-17] MEDS: OXYCODONE HCL IR 5 MG TAB (IMMEDIATE RELEASE) PO PRN ×2 (12:12→19:22)
[2016-09-17] MEDS: NYSTATIN/TRIAMCINOLONE CR 15 GM TUBE EXT SCH ×2 (13:03→21:57)
[2016-09-17] MEDS: GABAPENTIN 400 MG CAP PO SCH ×2 (13:04→21:58)
[2016-09-17] MEDS: ACETAMINOPHEN 500 MG TAB PO SCH ×2 (13:04→22:00)
[2016-09-17] MEDS: GABAPENTIN 100 MG CAP PO SCH ×2 (13:04→21:58)
[2016-09-17] MEDS: KETOROLAC TROMETHAMINE 15 MG/ML VIAL IV. PRN ×2 (14:20→22:18)
[2016-09-17 15:26] LABS: URINE APPEARANCE CLEAR (CLEAR); URINE COLOR DK YELLOW; URINE EPITHELIAL CELL AUTO >30 /lpf (0-5); URINE NITRITE NEG (NEG); URINE PH 5.5 (4.5-7.5); URINE SPECIFIC GRAVITY > 1.045 (1.000-1.030); UROBILINOGEN NEG (NEG); ZZURINE CULT IF INDIC CATH NO
[2016-09-17 16:09] LABS: MANUAL MICROSCOPIC REQUIRED? NO; REVIEW REQ? YES
[2016-09-17 16:11] LABS: URINE BILIRUBIN NEG (NEG)
--- NOTE | 2016-09-17 16:49 | Pharmacy Progress Note ---
Pharmacy Antibiotic Consult Date of Service: Sep 17, 2016. Pharmacy Dosing Scope Pharmacy is consulted to initiate IV Vancomycin dosing therapy, order appropriate labs and adjust drug dose/frequency. Subjective The patient is a 70 year old female admitted on Sep 17, 2016 at 10:23. Objective Height (Feet): 5 Height (Inches): 3.00 Weight (Kilograms): 106.000 Lab Results (24hrs): Laboratory Tests Test 09/17/16 07:35 BUN/Creatinine Ratio 26.7 Blood Urea Nitrogen 21 mg/dl Creatinine 0.79 mg/dl White Blood Count 19.46 K/uL Red Blood Count 2.99 M/uL Hemoglobin 9.0 g/dL Hematocrit 26.8 % Mean Corpuscular Volume 89.6 fL Mean Corpuscular Hemoglobin 30.1 pg Mean Corpuscular Hemoglobin Concent 33.6 g/dl Platelet Count 351 K/uL Mean Platelet Volume 9.1 fL Neutrophils (%) (Auto) 91.3 % Lymphocytes (%) (Auto) 1.9 % Monocytes (%) (Auto) 5.4 % Eosinophils (%) (Auto) 0.8 % Basophils (%) (Auto) 0.1 % Neutrophils # (Auto) 17.78 K/uL Lymphocytes # (Auto) 0.37 K/uL Monocytes # (Auto) 1.06 K/uL Eosinophils # (Auto) 0.15 K/uL Basophils # (Auto) 0.01 K/uL Micro Results: Item Value Date Time Blood Culture Received 09/17/16 0735 Blood Pending Blood Culture Received 09/17/16 0740 Blood Pending Gram Stain Received 09/17/16 1435 Incision Site Hip , Left Pending Recent Pertinent Medications Item Value Date Time Vancomycin HCl 540 ml @ 200 mls/hr 09/17/16 0749 2000 mg/Sodium ONE STAT/IV 09/17/16 0926 Chloride Vancomycin HCl 277 ml @ 125 mls/hr 09/17/16 2000 1350 mg/Sodium Q12H/IV Chloride Item Value Date Time Piperacillin Sod/ 4.5 gm 09/17/16 0749 Tazobactam Sod NOW STAT/IV 09/17/16 0818 (Zosyn Iv) Assessment & Plan Vancomycin * 70 yo F admitted with L hip incision infection/cellulitis s/p L EFREM 09/02/16 * Loading dose: Vancomycin 2gm IV x 1 dose (~19mg/kg) * Goal peak level: 30-40mcg/mL * Goal trough level: 15-20mcg/mL * Est half-life ~8-10hr * Maintenance dose: Vancomycin 1350mg IV q12h (~12.5mg/kg, BMI 41kg/m2--high risk for accumulation) * Trough level has been ordered for: 09/19/16 0800 dose Pharmacy will continue to follow and will adjust dose/frequency as necessary. Thank you
[2016-09-17] MEDS: FERROUS GLUCONATE 324 MG TAB PO SCH (17:54)
[2016-09-17] MEDS: VANCOMYCIN INJ 1,350 MG in SODIUM CHLORIDE 0.9% 250ML 250 ML IV SCH (20:02)
[2016-09-17] MEDS ORDERED: ACETAMINOPHEN 325 MG TAB ONE (21:53)
[2016-09-17] MEDS: DIVALPROEX 500 MG EXTENDED RELEASE TAB PO SCH (21:57)
[2016-09-17] MEDS: ASPIRIN 325 MG ECTAB PO SCH (21:57)
[2016-09-17 22:31] LABS: HEMATOCRIT 28.9 % (37-47)
[2016-09-17 22:55] LABS: BUN/CREATININE RATIO 21.8 (10-20); CREATININE 0.99 mg/dl (0.60-1.20); MAGNESIUM 1.3 mg/dl (1.8-2.4); POTASSIUM 3.8 mmol/L (3.5-5.1)
[2016-09-17 22:58] LABS: ALB/GLOB RATIO 0.6 (0.9-2); CALCIUM 8.1 mg/dl (8.5-10.1)
[2016-09-17] MEDS ORDERED: NSS + 20MEQ KCL 1000ML 1,000 ML IV ONE (23:30)
[2016-09-17] MEDS: MAGNESIUM SULFATE 1GM / D5W 1 GM in PREMIXED IN D5W 100 ML IV SCH (23:35)
[2016-09-18] VITALS (8 sets, daily range): BP systolic 102–144; BP diastolic 46–65; PULSE 92–123; TEMP 37–39.8; O2SAT 90–99
[2016-09-18] MEDS: MAGNESIUM SULFATE 1GM / D5W 1 GM in PREMIXED IN D5W 100 ML IV SCH ×2 (01:15→02:29)
[2016-09-18] MEDS: SODIUM CHLORIDE 0.9% 1000ML 1,000 ML IV SCH ×3 (03:58→23:33)
[2016-09-18] MEDS: ACETAMINOPHEN 500 MG TAB PO SCH (05:26)
[2016-09-18 06:28] LABS: HEMATOCRIT 29.5 % (37-47); MEAN CELL VOLUME 90.5 fL (80-100); MEAN CORPUSCULAR HEMOGLOBIN 29.4 pg (25-34); MEAN CORPUSCULAR HGB CONC 32.5 g/dl (32-36); MEAN PLATELET VOLUME 9.2 fL (7.4-10.4); PLATELET COUNT 289 K/uL (130-400); RED BLOOD COUNT 3.26 M/uL (4.2-5.4); WHITE BLOOD COUNT 16.85 K/uL (4.8-10.8)
[2016-09-18] MEDS: OXYCODONE HCL IR 5 MG TAB (IMMEDIATE RELEASE) PO PRN (06:30)
[2016-09-18 07:09] LABS: BUN/CREATININE RATIO 19.7 (10-20); CALCIUM 7.8 mg/dl (8.5-10.1); CREATININE 1.3 mg/dl (0.60-1.20); MAGNESIUM 2.3 mg/dl (1.8-2.4); POTASSIUM 4.1 mmol/L (3.5-5.1)
[2016-09-18 07:12] LABS: ALB/GLOB RATIO 0.5 (0.9-2)
[2016-09-18] MEDS: VANCOMYCIN INJ 1,350 MG in SODIUM CHLORIDE 0.9% 250ML 250 ML IV SCH ×2 (07:41→19:39)
[2016-09-18] MEDS ORDERED: PIPERACILLIN/TAZOBACTAM 4.5 GM/100ML D5W IV STA (07:50)
[2016-09-18] MEDS: GABAPENTIN 100 MG CAP PO SCH ×3 (07:56→21:25)
[2016-09-18] MEDS: PANTOprazole SOD 40 MG TAB PO SCH (07:56)
[2016-09-18] MEDS: DONEPEZIL HCL 10 MG TAB PO SCH (07:57)
[2016-09-18] MEDS: FLUOXETINE HCL 20 MG CAP PO SCH (07:57)
[2016-09-18] MEDS: GABAPENTIN 400 MG CAP PO SCH (07:57)
[2016-09-18] MEDS: NYSTATIN/TRIAMCINOLONE CR 15 GM TUBE EXT SCH ×2 (07:58→21:24)
--- NOTE | 2016-09-18 07:59 | DIAGNOSTIC IMAGING REPORT ---
CHEST ONE VIEW PORTABLE HISTORY: tachypnea COMPARISON: Chest 09/17/2016. FINDINGS: Mild central pulmonary vascular congestion without overt edema. No pleural effusions. No pneumothorax. The heart is mildly enlarged. This remains unchanged. No new focal lung consolidations. Cholecystectomy. IMPRESSION: Mild cardiomegaly with mild pulmonary vascular congestion. Electronically signed by: Jv Busby M.D. 09/18/2016 7:57 AM Dictated Date/Time: 09/18/2016 7:56 AM
[2016-09-18] MEDS ORDERED: PIPERACILL/TAZOBAC IV 4.5 GM in DEXTROSE 5% 100ML IV ONE (08:00)
--- NOTE | 2016-09-18 08:01 | Progress Note ---
Internal Med Progress Note Date of Service: Sep 18, 2016. Provider Documentation: Made aware by RN of fever spikes overnight and in AM despite IV Vanco. PX denies cp, sob, cough, GI/ sx. poor PO intake as per RN abn LFTS noted (hx cholecystectomy) AP Sepsis abn LFTS ?biliary source continue IVF add Zosyn to Vanco for now Liver US RE abn LFTs Vital Signs: Date Time Temp Pulse Resp B/P Pulse Ox O2 Delivery O2 Flow Rate FiO2 09/18/16 06:50 39.5 109 18 102/61 90 Room Air 09/18/16 03:16 37.0 92 16 105/65 96 CPAP 09/18/16 00:25 CPAP 09/17/16 22:47 39.5 116 15 122/64 90 CPAP 09/17/16 21:35 39.6 118 29 133/66 97 Nasal Cannula 2.0 125 09/17/16 19:15 38.2 09/17/16 15:55 Nasal Cannula 2.0 09/17/16 15:52 Nasal Cannula 2.0 09/17/16 14:54 38.0 102 18 112/65 96 Room Air 2.0 09/17/16 13:04 39.6 111 16 138/73 99 2.0 09/17/16 12:00 39.4 117 16 117/62 99 Nasal Cannula 2.0 09/17/16 11:37 96 18 115/74 95 09/17/16 10:38 99 16 110/74 100 Nasal Cannula 2.0 09/17/16 10:29 99 Nasal Cannula 2.0 09/17/16 09:26 93 16 130/82 99 Nasal Cannula 2.0 09/17/16 08:45 96 Room Air 09/17/16 08:05 87 16 106/44 96 Room Air Lab Results: Results Past 24 Hours Test 09/17/16 14:35 09/17/16 22:18 09/18/16 06:17 Range/Units Urine Color DK YELLOW Urine Appearance CLEAR CLEAR Urine pH 5.5 4.5-7.5 Urine Specific [place] > 1.045 1.000-1.030 Urine Protein 1+ NEG Urine Glucose (UA) NEG NEG Urine Ketones TRACE NEG Urine Occult Blood 3+ NEG Urine Nitrite NEG NEG Urine Bilirubin NEG NEG Urine Urobilinogen NEG NEG Urine Leukocyte Esterase NEG NEG Urine WBC (Auto) 1-5 0-5 /hpf Urine RBC (Auto) >30 0-4 /hpf Urine Hyaline Casts (Auto) 0 0-5 /lpf Urine Epithelial Cells (Auto) >30 0-5 /lpf Urine Bacteria (Auto) NEG NEG Urine Renal Epithelial Cells 0-5 0-5 /lpf Urine Pathogenic Casts 0 /lpf Hemoglobin 9.6 9.6 12.0-16.0 g/dL Hematocrit 28.9 29.5 37-47 % Sodium Level 134 135 136-145 mmol/L Potassium Level 3.8 4.1 3.5-5.1 mmol/L Chloride Level 98 100 98-107 mmol/L Carbon Dioxide Level 29 28 21-32 mmol/L Anion Gap 7.0 7.0 3-11 mmol/L Blood Urea Nitrogen 22 26 7-18 mg/dl Creatinine 0.99 1.30 0.60-1.20 mg/dl Est Creatinine Clear Calc Drug Dose 59.9 45.6 ml/min Estimated GFR () 66.0 47.5 Estimated GFR (Non- 56.9 41.0 BUN/Creatinine Ratio 21.8 19.7 10-20 Random Glucose 115 100 70-99 mg/dl Osmolality 277 280-300 mOsm/kg Calcium Level 8.1 7.8 8.5-10.1 mg/dl Magnesium Level 1.3 2.3 1.8-2.4 mg/dl Total Bilirubin 0.8 1.3 0.2-1 mg/dl Aspartate Amino Transf (AST/SGOT) 84 176 15-37 U/L Alanine Aminotransferase (ALT/SGPT) 39 74 12-78 U/L Alkaline Phosphatase 154 216 45-117 U/L Total Creatine Kinase 481 387 26-192 U/L Total Protein 6.2 5.9 6.4-8.2 gm/dl Albumin 2.2 2.0 3.4-5.0 gm/dl Globulin 4.0 3.9 2.5-4.0 gm/dl Albumin/Globulin Ratio 0.6 0.5 0.9-2 Valproic Acid (Depakene) Level 63 50-100 mcg/ml White Blood Count 16.85 4.8-10.8 K/uL Red Blood Count 3.26 4.2-5.4 M/uL Mean Corpuscular Volume 90.5 80-100 fL Mean Corpuscular Hemoglobin 29.4 25-34 pg Mean Corpuscular Hemoglobin Concent 32.5 32-36 g/dl RDW Standard Deviation 51.7 36.4-46.3 fL RDW Coefficient of Variation 15.5 11.5-14.5 % Platelet Count 289 130-400 K/uL Mean Platelet Volume 9.2 7.4-10.4 fL Microbiology Results 09/17/16 Gram Stain, Received Pending 09/17/16 Wound Culture, Received Pending
[2016-09-18] MEDS ORDERED: BIOTIN PO SCH (09:00)
[2016-09-18] MEDS ORDERED: PIPERACILL/TAZOBAC CONSULT ACTIVE SCH (09:00)
--- NOTE | 2016-09-18 09:17 | PROGRESS NOTE ---
DATE: 09/18/2016 DATE: 09/18/2016. CHIEF COMPLAINT: Fevers and redness around the incision site status post hip placement. HISTORY OF PRESENT ILLNESS: A 70-year-old female with multiple underlying medical disorders now 2 weeks out from left total hip replacement. She was at [facility] and we did get a call on Monday that her incision looked a little bit red and they started her on some antibiotics. She was sent to the Emergency Room yesterday morning with a fever and admitted by the medicine service. The patient does report that she has had a little bit more pain in the hip area initially but feeling better this morning. She did feel wiped out and tired. Denies any chest pain or shortness of breath. There has apparently been some slight serous drainage at her incision site as well. She states that she was doing well until Monday. OBJECTIVE: VITAL SIGNS: Temperature is 39.5 this morning. She has had intermittent spikes of fever. Pulse is 109. Respirations 18. Blood pressure 102/61. PHYSICAL EXAMINATION: GENERAL: Obese, pleasant elderly female. She is lying in bed, looks reasonably comfortable. EXTREMITIES: Examination of left hip incision does reveal some redness and diffuse swelling and edema in the area. There is just a trace bit of serous kind of drainage on her dressing. It looks to be just kind of seeping through the staple sites. She does have a lot of irritation around the skin folds as her pannus overlies her hip area. She has got various types of powder present in that area, but it is red. Her leg lengths are equal. I can move her hip without much pain. She can dorsiflex and plantarflex her foot appropriately. She is neurologically intact. LABORATORY DATA: Her white cell count 16.85. Hemoglobin 9.6. Hematocrit 29.5. Electrolytes revealed increase creatinine 1.30. Albumin is low at 2.0. Blood cultures are pending. She does have a wound culture which is showing gram positive culture, but this is a surface culture which is going to be positive regardless. ASSESSMENT: A 70-year-old white female 2 weeks out from left total hip replacement with some cellulitis around the left hip incision as well as fevers. It appears that this has just started over the past 2 days or so. She is morbidly obese with multiple medical comorbidities. Her urine looks pretty clean. I have to believe there is some degree of soft tissue infection around her left hip area. She does have a surface culture that was obtained but this is going to be contaminated by epithelial cells and skin bacteria, so I do not think that is going to be reliable. I do think she needs antibiotic management and may require wash-out of her hip if things do not improve over the next 24-48 hours. I do not see any other potential sources of infection. White cell count elevated but improved today. Still having some intermittent fevers. PLAN: 1. I agree with IV antibiotics for now. Will proceed with broad-spectrum coverage and will see how she does over the next 24-48 hours. If not significantly better by then we may proceed with a I\T\D and washout. Once again drainage that she has is just small amount of serous and somewhat related to her edema around her hip area and seems to be through the staple sites. There are no obvious fluid collections or purulence. 2. DVT prophylaxis including thigh-high TEDs, SCDs, and aspirin for now. 3. Pain control. Will try and limit narcotics. Best to stick with Tylenol and tramadol. 4. Disposition. Disposition is guarded based on the above response to antibiotics and medical management. Any questions can be directed to me at [phone]. [facility]
[2016-09-18] MEDS: ASPIRIN 325 MG ECTAB PO SCH ×2 (09:20→21:26)
[2016-09-18] MEDS: VITAMIN B COMPLEX TAB PO SCH (09:20)
[2016-09-18] MEDS: FERROUS GLUCONATE 324 MG TAB PO SCH ×2 (09:20→18:09)
[2016-09-18] MEDS: CHOLECALCIFEROL 1000 INTER.UNIT TAB PO SCH (09:21)
--- NOTE | 2016-09-18 09:57 | DIAGNOSTIC IMAGING REPORT ---
ABDOMINAL ULTRASOUND, RIGHT UPPER QUADRANT HISTORY: abn lfts. COMPARISON: Abdomen and pelvis CT 09/27/2012. FINDINGS: Pancreas: The pancreas demonstrates a normal echotexture. Liver: Unremarkable. Gallbladder: The gallbladder is surgically absent. CBD: 7 mm Right kidney: No hydronephrosis. IMPRESSION: No significant abnormality identified within the right upper quadrant. Electronically signed by: Jv Busby M.D. 09/18/2016 9:55 AM Dictated Date/Time: 09/18/2016 9:54 AM
[2016-09-18] MEDS ORDERED: PIPERACILL/TAZOBAC IV 4.5 GM in DEXTROSE 5% 100ML IV SCH (14:00)
[2016-09-18] MEDS ORDERED: TRAMADOL HCL 50 MG TAB PO PRN (15:15)
--- NOTE | 2016-09-18 15:23 | Progress Note ---
Medicine Progress Note Date & Time of Visit: Sep 18, 2016 at 15:09. Subjective Patient seen and examined. States that she is feeling better today, but still feeling weak overall. Daughter present at bedside and updated. Objective Last 8 Hrs Date Time Temp Pulse Resp B/P Pulse Ox O2 Delivery O2 Flow Rate FiO2 09/18/16 10:34 37.3 09/18/16 07:55 Nasal Cannula 2.0 Physical Exam: General-awake; alert; NAD Eyes-EOMI; no scleral icterus Neck-no stridor; trachea midline Lungs-CTA bilaterally anteriorly Heart-RRR; no m/r/g Abdomen-soft; NT; nBS Extremities-no c/c/e; no deformity Neuro-oriented x3; answering questions appropriately Skin-improved erythema around left hip incision site; improved erythema under left side of pannus Laboratory Results: Last 24 Hours Test 09/17/16 22:18 09/18/16 06:17 Hemoglobin 9.6 g/dL 9.6 g/dL Hematocrit 28.9 % 29.5 % Sodium Level 134 mmol/L 135 mmol/L Potassium Level 3.8 mmol/L 4.1 mmol/L Chloride Level 98 mmol/L 100 mmol/L Carbon Dioxide Level 29 mmol/L 28 mmol/L Anion Gap 7.0 mmol/L 7.0 mmol/L Blood Urea Nitrogen 22 mg/dl 26 mg/dl Creatinine 0.99 mg/dl 1.30 mg/dl Est Creatinine Clear Calc Drug Dose 59.9 ml/min 45.6 ml/min Estimated GFR () 66.0 47.5 Estimated GFR (Non- 56.9 41.0 BUN/Creatinine Ratio 21.8 19.7 Random Glucose 115 mg/dl 100 mg/dl Osmolality 277 mOsm/kg Calcium Level 8.1 mg/dl 7.8 mg/dl Magnesium Level 1.3 mg/dl 2.3 mg/dl Total Bilirubin 0.8 mg/dl 1.3 mg/dl Aspartate Amino Transf (AST/SGOT) 84 U/L 176 U/L Alanine Aminotransferase (ALT/SGPT) 39 U/L 74 U/L Alkaline Phosphatase 154 U/L 216 U/L Total Creatine Kinase 481 U/L 387 U/L Total Protein 6.2 gm/dl 5.9 gm/dl Albumin 2.2 gm/dl 2.0 gm/dl Globulin 4.0 gm/dl 3.9 gm/dl Albumin/Globulin Ratio 0.6 0.5 Valproic Acid (Depakene) Level 63 mcg/ml White Blood Count 16.85 K/uL Red Blood Count 3.26 M/uL Mean Corpuscular Volume 90.5 fL Mean Corpuscular Hemoglobin 29.4 pg Mean Corpuscular Hemoglobin Concent 32.5 g/dl RDW Standard Deviation 51.7 fL RDW Coefficient of Variation 15.5 % Platelet Count 289 K/uL Mean Platelet Volume 9.2 fL Date/Time Source Procedure Growth Status 09/18/16 13:35 Urine,Catheterized Urine Culture Pending Received Assessment & Plan LEFT HIP CELLULITIS, HX RECENT LEFT EFREM - patient s/p left EFREM 09/[address] Leavitt, discharged on 09/06 to [facility] for rehab; presented with fever and generalized weakness - leukocytosis and febrile on admission - s/p Vanco and Zosyn in the ER - continue with Vancomycin - blood cultures pending - wound culture with Staph aureus - ortho consulted -> no surgical intervention at this time - CT hip without significant joint effusion and 6cm collection in gluteal musculature ALBERT - likely contrast induced nephropathy - continue IVF's - renally dose medications ABNORMAL LFT's - possibly due to underlying infection and medications - liver ultrasound unremarkable ANEMIA - likely due to blood loss from recent surgery, no signs of bleeding - hgb stable from prior admission - no role for transfusion - continue iron replacement DEMENTIA, BIPOLAR - continue divalproex, donepezil, fluoxetine GERD - continue PPI LEFT ABDOMINAL FOLD MACERATION - exam is c/w topical shweta - continue Mycogen cream - wound care nurse consulted DVT PROPHYLAXIS - continue ASA 325mg BID per ortho recommendations from previous discharge CODE STATUS - Full code PT/OT evaluations to determine discharge disposition. Likely discharge home with home health. Consultants: Orthopedics Current Inpatient Medications: Current Inpatient Medications Medications (Trade) Dose Ordered Sig/Quan Route Start Time Stop Time Status Last Admin Dose Admin Ondansetron HCl (Zofran Inj) 4 mg Q6H PRN IV 09/17/16 10:30 10/17/16 10:29 Vancomycin HCl (Consult) 1 ea UD N/A 09/17/16 10:59 10/17/16 10:58 Aspirin (Ecotrin Tab) 325 mg BID PO 09/17/16 21:00 10/17/16 20:59 09/18/16 09:20 325 MG Cholecalciferol (Vitamin D Tab) 4,000 inter.unit QAM PO 09/18/16 09:00 10/18/16 08:59 09/18/16 09:21 4,000 INTER.UNIT Divalproex Sodium (Depakote Extended Rel Tab) 1,000 mg HS PO 09/17/16 21:00 10/17/16 20:59 09/17/16 21:57 1,000 MG Ferrous Gluconate (Ferrous Gluconate Tab) 324 mg BIDM PO 09/17/16 17:45 10/17/16 17:59 09/18/16 09:20 324 MG Fluoxetine HCl (Prozac Cap) 20 mg QAM PO 09/18/16 09:00 10/18/16 08:59 09/18/16 07:57 20 MG Oxycodone HCl (Roxicodone Immediate Rel Tab) 5 mg Q4H PRN PO 09/17/16 10:45 10/01/16 10:44 09/18/16 06:30 5 MG Pantoprazole Sodium (Protonix Tab) 40 mg QAM PO 09/18/16 09:00 10/18/16 08:59 09/18/16 07:56 40 MG Senna/Docusate Sodium (Senokot S Tab) 1 tab DAILY PRN PO 09/17/16 10:45 10/17/16 10:44 Vitamin B Complex (Vitamin B Complex) 1 tab DAILY PO 09/18/16 09:00 10/18/16 08:59 09/18/16 09:20 1 TAB Donepezil HCl (Aricept Tab) 10 mg QAM PO 09/18/16 09:00 10/18/16 08:59 09/18/16 07:57 10 MG Miscellaneous Information (Order Awaiting Action) 1 ea QS N/A 09/17/16 16:00 10/17/16 15:59 Ioversol (Optiray 320) 100 ml UD PRN IV 09/17/16 11:00 09/21/16 10:59 Nystatin/ Triamcinolone Acetonide 1 appln 1 appln BID EXT 09/17/16 11:15 10/17/16 11:14 09/18/16 07:58 1 APPLN Vancomycin HCl 1350 mg/Sodium Chloride 277 ml @ 125 mls/hr Q12H IV 09/17/16 20:00 09/27/16 19:59 09/18/16 07:41 125 MLS/HR Sodium Chloride (Nss 1000ml) 1,000 ml @ 100 mls/hr Q10H IV 09/18/16 03:30 09/18/16 14:34 100 MLS/HR Piperacillin Sod/ Tazobactam Sod 1 ea 1 ea UD N/A 09/18/16 09:00 10/18/16 08:59 Piperacillin Sod/ Tazobactam Sod/ Dextrose (Zosyn Iv/D5 100ml) 120 ml @ 30 mls/hr Q8H IV 09/18/16 14:00 09/28/16 13:59 09/18/16 14:32 30 MLS/HR Acetaminophen (Tylenol Tab) 650 mg Q6H PRN PO 09/18/16 08:15 10/18/16 08:14 Gabapentin (Neurontin Cap) 200 mg TID PO 09/18/16 14:00 10/18/16 13:59 09/18/16 14:32 200 MG
[2016-09-18] MEDS ORDERED: OXYCODONE HCL IR 5 MG TAB (IMMEDIATE RELEASE) PO PRN (18:00)
[2016-09-18] MEDS: ACETAMINOPHEN 325 MG TAB PO PRN (18:13)
[2016-09-18] MEDS ORDERED: VANCOMYCIN TROUGH SCH (19:30)
[2016-09-18] MEDS: DIVALPROEX 500 MG EXTENDED RELEASE TAB PO SCH (21:25)
[2016-09-19] VITALS (7 sets, daily range): BP systolic 73–120; BP diastolic 36–89; PULSE 101–116; TEMP 36.8–39.7; O2SAT 90–99
[2016-09-19] MEDS: SODIUM CHLORIDE 0.9% 1000ML 1,000 ML IV SCH ×3 (04:30→21:03)
[2016-09-19 06:49] LABS: HEMATOCRIT 26.2 % (37-47); MEAN CELL VOLUME 88.8 fL (80-100); MEAN CORPUSCULAR HEMOGLOBIN 29.5 pg (25-34); MEAN CORPUSCULAR HGB CONC 33.2 g/dl (32-36); MEAN PLATELET VOLUME 9.1 fL (7.4-10.4); PLATELET COUNT 236 K/uL (130-400); RED BLOOD COUNT 2.95 M/uL (4.2-5.4); WHITE BLOOD COUNT 15.12 K/uL (4.8-10.8)
[2016-09-19 07:25] LABS: ALB/GLOB RATIO 0.5 (0.9-2); BUN/CREATININE RATIO 13.3 (10-20); CALCIUM 7.5 mg/dl (8.5-10.1); CREATININE 3.2 mg/dl (0.60-1.20); POTASSIUM 4.1 mmol/L (3.5-5.1)
[2016-09-19] MEDS ORDERED: VANCOMYCIN TROUGH SCH (07:30)
--- NOTE | 2016-09-19 07:58 | PROGRESS NOTE ---
DATE: 09/19/2016 SUBJECTIVE: A 70-year-old white female 2 weeks out from a left total hip replacement, complicated by fevers for the past 3 days and persistent but minimal serous wound drainage. She says that she is feeling better. Is still feeling wiped out and tired. Denies any chest pain or shortness of breath. OBJECTIVE: VITAL SIGNS: Temperature 39.7. Pulse this morning is 101. Rest of her vital signs are stable. PHYSICAL EXAMINATION: GENERAL: Reveals a pleasant elderly female. She is lying in bed and looks kind of fatigued and tired. Looks worn out. EXTREMITIES: Examination of the left hip reveals the dressing to be in place. There is some slight serous drainage on it. She continues to have the redness around her leg and incision site which is unchanged. She has got diffuse edema as well. Hip is located. NEUROLOGIC: She is neurologically intact. LABORATORY DATA: Hemoglobin is 8.7, hematocrit is 26.2. Electrolytes are pending. IMAGING: She did have a CT scan which shows a small 6 cm fluid collection at the upper part of the incision site in the subcutaneous tissues. ASSESSMENT: A 70-year-old white female 2 weeks out from a left total hip replacement with recent fevers and persistent serous-type wound drainage. She has continued to have fevers despite antibiotics. No other source of infection. She should not be having a draining wound at this point. Her albumin and nutritional parameters are quite poor, but I do think we are obligated to wash this out. She has not responded to the antibiotics very well or any significant fashion. PLAN: We are going to keep her n.p.o. and take her to the operating room this morning/this afternoon for an I\T\D and polyethylene exchange and femoral head exchange depending on what is required. The risks and benefits of this procedure were explained to the patient, she understands and desires to proceed. We will keep her n.p.o. Continue DVT prophylaxis. JT
[2016-09-19] MEDS ORDERED: PIPERACILL/TAZOBAC IV 4.5 GM in DEXTROSE 5% 100ML IV ONE (08:00)
[2016-09-19] MEDS ORDERED: [UNRECOGNIZED DRUG - REMARK] PRN (08:01)
[2016-09-19] MEDS ORDERED: DAPTOMYCIN CONSULT ACTIVE PRN ×2 (08:30)
[2016-09-19] MEDS: FERROUS GLUCONATE 324 MG TAB PO SCH ×2 (08:53→21:02)
[2016-09-19] MEDS: DONEPEZIL HCL 10 MG TAB PO SCH (08:53)
[2016-09-19] MEDS: PANTOprazole SOD 40 MG TAB PO SCH (08:53)
[2016-09-19] MEDS: VITAMIN B COMPLEX TAB PO SCH (08:53)
[2016-09-19] MEDS: FLUOXETINE HCL 20 MG CAP PO SCH (08:53)
[2016-09-19] MEDS: NYSTATIN/TRIAMCINOLONE CR 15 GM TUBE EXT SCH ×2 (08:53→21:03)
[2016-09-19] MEDS: GABAPENTIN 100 MG CAP PO SCH ×3 (08:54→21:03)
[2016-09-19] MEDS: CHOLECALCIFEROL 1000 INTER.UNIT TAB PO SCH (08:54)
[2016-09-19] MEDS ORDERED: DAPTOmycin IV 425 MG in SODIUM CHLORIDE 0.9% 50ML 50 ML IV SCH (09:00)
--- NOTE | 2016-09-19 09:43 | Nephrology Consultation ---
Nephrology Consultation Date of Consultation: Sep 19, 2016. Attending Physician: Dr Gonzales Requesting Physician: Dr Gonzales Reason for Consultation: ALBERT History of Present Illness 70 year old female w/ baseline creatinine 0.7-0.8 [facility] 09[facility] / L hip cellulitis after developing F and incision site redness there. She had 4/7 L total hip replacement here; she had leukocytosis at admission but no tracy complaints. She has had daily F as high as 39.5 since admission. She was started on admission on vancomycin and zosyn. On presentation on 09/17, she had hip CT w/ IV contrast; also had 30 gm ketorolac that day and came in on 325 mg bid ASA for VTE prophylaxis which has been continued with last dose last evening. Other PMH includes bipolar disorder/OCD, diastolic dysfunction, JOO on CPAP, ? chronic respiratory failure on 2L 02, endometrial CA 2013 s/p LOUIS/ BSO and XRT. This morning she had lower blood pressures in the 70-80s systolic , improving back to low 100s w/ increase in NS to 100 mL hourly. Her creatinine was at baseline on presentation; yesterday was 1.3; today was 3.2. Ortho plans to take her back to OR for washout today given ongoing F. Lactic acid on presentation wnl as was CK. Admission cxs so far NGTD except MRSA from wound. Past Medical/Surgical History Medical Problems: (1) Abdominal pain Status: Acute (2) Anemia Status: Chronic (3) Anxiety Status: Chronic (4) Bipolar disorder Status: Chronic (5) Dementia Status: Chronic (6) Diastolic dysfunction Permanent Comment: echo 05/2015 - EF 55-60%, grade II diastolic dysfunction Status: Chronic (7) Facial cellulitis Status: Acute (8) Facial cellulitis Status: Acute (9) Gastroesophageal reflux disease Status: Chronic (10) GERD (gastroesophageal reflux disease) Status: Acute (11) Nocturnal hypoxemia Status: Chronic (12) OCD (obsessive compulsive disorder) Status: Chronic (13) JOO on CPAP Status: Chronic (14) Spinal stenosis Status: Chronic Social History Problems: (1) History of total left hip arthroplasty Status: Acute as per HPI Family History Heart disease MOTHER Social History Smoking Status: Never Smoker Alcohol Use: none Drug Use: none Marital Status: single Allergies Coded Allergies: Adhesives (Verified Allergy, Unknown, ADHESIVE TAPE -- BLISTERS, 09/17/16) Cetirizine (Verified Allergy, Unknown, SORES IN MOUTH, HEAD CONGESTION, ) Dicloxacillin (Unverified Allergy, Unknown, MOUTH SORE, 09/17/16) Erythromycin (Verified Allergy, Unknown, SORES IN MOUTH, 09/17/16) Tetracycline (Verified Adverse Reaction, Intermediate, NAUSEA, 09/17/16) Codeine (Verified Adverse Reaction, Mild, NAUSEA, 09/17/16) Doxycycline (Verified Adverse Reaction, Mild, NAUSEA, 09/17/16) Morphine (Verified Adverse Reaction, Unknown, "MAKES ME FEEL LOOPY", ) Medications Current Inpatient Medications Medications (Trade) Dose Ordered Sig/Quan Route Start Time Stop Time Status Last Admin Dose Admin Ondansetron HCl (Zofran Inj) 4 mg Q6H PRN IV 09/17/16 10:30 10/17/16 10:29 Aspirin (Ecotrin Tab) 325 mg BID PO 09/17/16 21:00 10/17/16 20:59 09/18/16 21:26 325 MG Cholecalciferol (Vitamin D Tab) 4,000 inter.unit QAM PO 09/18/16 09:00 10/18/16 08:59 09/18/16 09:21 4,000 INTER.UNIT Divalproex Sodium (Depakote Extended Rel Tab) 1,000 mg HS PO 09/17/16 21:00 10/17/16 20:59 09/18/16 21:25 1,000 MG Ferrous Gluconate (Ferrous Gluconate Tab) 324 mg BIDM PO 09/17/16 17:45 10/17/16 17:59 09/18/16 18:09 324 MG Fluoxetine HCl (Prozac Cap) 20 mg QAM PO 09/18/16 09:00 10/18/16 08:59 09/18/16 07:57 20 MG Pantoprazole Sodium (Protonix Tab) 40 mg QAM PO 09/18/16 09:00 10/18/16 08:59 09/18/16 07:56 40 MG Senna/Docusate Sodium (Senokot S Tab) 1 tab DAILY PRN PO 09/17/16 10:45 10/17/16 10:44 Vitamin B Complex (Vitamin B Complex) 1 tab DAILY PO 09/18/16 09:00 10/18/16 08:59 09/18/16 09:20 1 TAB Donepezil HCl (Aricept Tab) 10 mg QAM PO 09/18/16 09:00 10/18/16 08:59 09/18/16 07:57 10 MG Miscellaneous Information (Order Awaiting Action) 1 ea QS N/A 09/17/16 16:00 10/17/16 15:59 Ioversol (Optiray 320) 100 ml UD PRN IV 09/17/16 11:00 09/21/16 10:59 Nystatin/ Triamcinolone Acetonide 1 appln 1 appln BID EXT 09/17/16 11:15 10/17/16 11:14 09/18/16 21:24 1 APPLN Sodium Chloride (Nss 1000ml) 1,000 ml @ 100 mls/hr Q10H IV 09/18/16 03:30 09/18/16 23:33 100 MLS/HR Acetaminophen (Tylenol Tab) 650 mg Q6H PRN PO 09/18/16 08:15 10/18/16 08:14 09/18/16 18:13 650 MG Gabapentin (Neurontin Cap) 200 mg TID PO 09/18/16 14:00 10/18/16 13:59 09/18/16 21:25 200 MG Oxycodone HCl (Roxicodone Immediate Rel Tab) 5 mg Q6 PRN PO 09/18/16 18:00 10/02/16 17:59 09/18/16 19:39 5 MG Tramadol HCl (Ultram Tab) 100 mg Q6 PRN PO 09/18/16 15:15 10/18/16 15:14 09/18/16 23:33 100 MG Daptomycin (Consult) 1 ea UD PRN N/A 09/19/16 08:30 10/19/16 08:29 Home Meds and Scripts Medications Dose Route/Sig Max Daily Dose Days Date Category Dose Instructions Enema (Sodium Phosphates) 1 Maria E Maria E 1 Ea FL DAILY PRN 09/17/16 Reported Dulcolax (Bisacodyl) 10 Mg Sup 1 Supp FL DAILY PRN 09/17/16 Reported Milk of Magnesia (Magnesium Hydroxide) 30 Ml Susp 30 Ml PO DAILY PRN 09/17/16 Reported Prune Juice (Prune) Liqd 1 Dose PO DAILY PRN 09/17/16 Reported Benefiber (Wheat Dextrin) 1 Pow Pow 1 Dose PO DAILY PRN 09/17/16 Reported Dynapen (Dicloxacillin Sodium) 500 Mg Cap 500 Mg PO QID 10 09/17/16 Reported Aspirin 325 Mg Ectab 325 Mg PO BID 45 09/03/16 Rx Take to prevent blood clots. Tylenol Extra Strength (Acetaminophen) 500 Mg Tab 1,000 Mg PO Q8 30 09/03/16 Rx Take 3 times per day to lessen pain. Oxycodone HCl 5 Mg Tab 5 Mg PO Q4H PRN 30 09/03/16 Rx Take as needed for Pain. Ferrous Gluconate 324 Mg Tab 324 Mg PO BIDM 30 09/03/16 Rx Stool Softener (Sennosides-Docusate Sodium) 1 Tab Tab 1 Tab PO DAILY PRN 09/02/16 Reported B Complex (B-Complex W/ Folic Acid) 1 Tab Tab 1 Tab PO DAILY 09/02/16 Reported Biotin Forte (Biotin) 3 Mg Tab 3 Mg PO DAILY 09/02/16 Reported Depakote Er (Divalproex Sodium) 500 Mg Tab 1,000 Mg PO HS 30 09/02/16 Reported Tums (Calcium Carbonate) 500 Mg Chew 1 Tab PO BID PRN 02/29/16 Reported [place] Nasal [place] (Saline) 0.65 % Spr 2 [place] CAROL DAILY PRN 02/29/16 Reported Zofran Odt (Ondansetron HCl) 4 Mg Tab 4 Mg SL Q6H PRN 02/29/16 Reported Neurontin (Gabapentin) 100 Mg Cap 500 Mg PO TID 02/29/16 Reported Donepezil Hcl (Donepezil Hydrochloride) 10 Mg Tab 1 Tab PO QAM 02/29/16 Reported Protonix (Pantoprazole Sodium) 40 Mg Tab 40 Mg PO QAM 12/12/15 Reported Galzin (Zinc Acetate (Oral)) 25 Mg Cap 25 Mg PO QAM 07/27/15 Reported Imodium (Loperamide HCl) 2 Mg Cap 2 Mg PO DIRECTED PRN 02/04/15 Reported Oxygen Gas 2 Liters NA HS 05/29/14 Reported Prozac (Fluoxetine HCl) 20 Mg Cap 20 Mg PO QAM 10/13/12 Reported Ativan (Lorazepam) 1 Mg Tab 1 Mg PO BID PRN 02/20/12 Reported Vitamin D 1000 Unit (Cholecalciferol) 1,000 Unit Cap 4,000 Inter.unit PO QAM 01/06/12 Reported Review of Systems Constitutional: + fatigue, + fever Eyes: No worsening of vision ENT: No hearing loss Respiratory: No shortness of breath Cardiac: No chest pain, No edema, No orthopnea, No palpitations Abdomen: + pain, + problem reported (c/o "starving"), No constipation, No diarrhea, No nausea, No vomiting Musculoskeletal: No joint pain, No muscle pain Female : No dysuria, No hematuria, No urinary frequency Neuro: + weakness Psych: No anxiety, No depression symptoms Heme: No abnormal bleeding/bruising Endo: + fatigue Skin: + new/changing skin lesions (L hip wound), No rash Physical Exam Date Time Temp Pulse Resp B/P Pulse Ox O2 Delivery O2 Flow Rate FiO2 09/19/16 07:31 37.5 101 20 89/53 94 Nasal Cannula 2.0 73/38 76/36 76/38 09/19/16 04:02 39.7 111 16 117/63 90 Nasal Cannula 2.0 09/18/16 23:40 Nasal Cannula 2.0 09/18/16 23:13 39.6 109 16 103/57 96 Nasal Cannula 2.0 09/18/16 20:25 39.5 114 16 139/64 94 Nasal Cannula 2.0 09/18/16 19:20 39.8 122 20 115/46 99 Nasal Cannula 2.0 09/18/16 18:16 39.4 123 20 115/56 92 Room Air 09/18/16 15:30 37.9 113 16 144/59 94 Room Air 09/18/16 15:20 Room Air 09/18/16 10:34 37.3 24-Hour Column 09/19/16 08:00 Intake Total 3882 ml Output Total 75 ml Balance 3807 ml General Appearance: WD/WN, no apparent distress, + obese, + pertinent finding ( lying flat on 02NC, tired but interactive) Eyes: EOMI ENT: hearing grossly normal, + pertinent finding (dry MM) Neck: supple Respiratory/Chest: lungs clear, no respiratory distress, no accessory muscle use, + decreased breath sounds Cardiovascular: no edema, + tachycardia (in 100s regular), + systolic murmur Abdomen: normal bowel sounds, soft (no kaur; slight tenderness to moderate palpation) Extremities: no pedal edema, + pertinent finding (L hip bandaged/draining; no edema) Neurologic/Psych: alert, normal mood/affect, oriented x 3 Skin: no jaundice, warm/dry, no rash Diagnostics Last 24 Hours Test 09/18/16 19:36 09/19/16 06:29 Vancomycin Level Trough 27.7 mcg/ml White Blood Count 15.12 K/uL Red Blood Count 2.95 M/uL Hemoglobin 8.7 g/dL Hematocrit 26.2 % Mean Corpuscular Volume 88.8 fL Mean Corpuscular Hemoglobin 29.5 pg Mean Corpuscular Hemoglobin Concent 33.2 g/dl RDW Standard Deviation 51.9 fL RDW Coefficient of Variation 15.9 % Platelet Count 236 K/uL Mean Platelet Volume 9.1 fL Sodium Level 133 mmol/L Potassium Level 4.1 mmol/L Chloride Level 102 mmol/L Carbon Dioxide Level 22 mmol/L Anion Gap 9.0 mmol/L Blood Urea Nitrogen 43 mg/dl Creatinine 3.20 mg/dl Est Creatinine Clear Calc Drug Dose 18.5 ml/min Estimated GFR () 16.0 Estimated GFR (Non- 13.8 BUN/Creatinine Ratio 13.3 Random Glucose 91 mg/dl Calcium Level 7.5 mg/dl Total Bilirubin 2.1 mg/dl Aspartate Amino Transf (AST/SGOT) 89 U/L Alanine Aminotransferase (ALT/SGPT) 59 U/L Alkaline Phosphatase 247 U/L Total Protein 5.3 gm/dl Albumin 1.7 gm/dl Globulin 3.6 gm/dl Albumin/Globulin Ratio 0.5 Random Vancomycin Level 34.6 mcg/ml Diagnostic Radiology: Hip CT w/ con 09/17 1. 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 No evidence of fracture 3. No significant joint effusion although the examination is limited due to streak artifact 4. Partially visualized 6 cm collection within the subcutaneous tissues lateral to the left gluteal musculature. This is not possible on the basis of this study to determine whether this collection is infected or sterile. RUQ u/s 09/18: unremarkable CXR 09/17> mild pulm vascular congestion EKG: ECG > NSR HR 95 Assessment & Plan 70 y/o F w/ acute renal failure peak creatinine 3.2 after readmission 4/22 w/ L hip cellulitis, F after 4/7 L total hip replacement. Electrolytes acceptable for now; anemia slowly worsening but acceptable. ALBERT; suspect multifactorial ATN from contrast induced nephropathy in pt at risk for this w/ concurrent NSAID use and w/ elevated random vancomycin level, hypotension/ ongoing fever. -stopped ASA >> discussed w/ Dr. Gonzales importance of alternate, non nsaid VTE prophylaxis -agree w/ changing away from vancomycin to daptomycin -recommend kaur placement for strict I/O -support BP w/ goal of SBP > 100 perioperatively -consider repeat blood cxs and/or consider inf dzs involvement -will repeat CXR -will repeat UACM, urine chemistries -daily bmp, cbc -no acute indication for dialysis but cannot rule out need. Appreciate consult; will follow with you. Care coordinated w/ Dr. Gonzales.
[2016-09-19 10:13] LABS: URIC ACID 5.5 mg/dl (2.6-7.2)
--- NOTE | 2016-09-19 10:30 | DIAGNOSTIC IMAGING REPORT ---
CHEST ONE VIEW PORTABLE CLINICAL HISTORY: renal failure, hypoxia COMPARISON STUDY: 09/15/2016 FINDINGS: The heart is mildly enlarged. There is mild central pulmonary vascular congestion unchanged. There is no focal edema. There is no focal pulmonary consolidation. There are no pleural effusions. There is minor basilar atelectasis.[ IMPRESSION: Cardiomegaly and mild central pulmonary vascular congestion. No change the prior study. Electronically signed by: Connor Oleary M.D. 09/19/2016 10:28 AM Dictated Date/Time: 09/19/2016 10:28 AM
--- NOTE | 2016-09-19 12:52 | Progress Note ---
Medicine Progress Note Date & Time of Visit: Sep 19, 2016 at 12:40. Subjective Patient seen and examined. Feels tired today. D/w Dr. Leavitt about going to the OR later today. Family present at bedside and updated. Objective Last 8 Hrs Date Time Temp Pulse Resp B/P Pulse Ox O2 Delivery O2 Flow Rate FiO2 09/19/16 08:00 109/61 09/19/16 07:31 37.5 101 20 89/53 94 Nasal Cannula 2.0 73/38 76/36 76/38 09/19/16 07:30 Nasal Cannula 2.0 Physical Exam: General-awake; alert; malaised appearing Eyes-EOMI; no scleral icterus Neck-no stridor; trachea midline Lungs-CTA bilaterally anteriorly Heart-RRR; no m/r/g Abdomen-soft; NT; nBS Extremities-no c/c/e; no deformity Neuro-oriented x3; answering questions appropriately Skin-erythema around left hip incision site with some areas of skin breakdown around incision; improved erythema under left side of pannus Laboratory Results: Last 24 Hours Test 09/18/16 19:36 09/19/16 06:29 Vancomycin Level Trough 27.7 mcg/ml White Blood Count 15.12 K/uL Red Blood Count 2.95 M/uL Hemoglobin 8.7 g/dL Hematocrit 26.2 % Mean Corpuscular Volume 88.8 fL Mean Corpuscular Hemoglobin 29.5 pg Mean Corpuscular Hemoglobin Concent 33.2 g/dl RDW Standard Deviation 51.9 fL RDW Coefficient of Variation 15.9 % Platelet Count 236 K/uL Mean Platelet Volume 9.1 fL Sodium Level 133 mmol/L Potassium Level 4.1 mmol/L Chloride Level 102 mmol/L Carbon Dioxide Level 22 mmol/L Anion Gap 9.0 mmol/L Blood Urea Nitrogen 43 mg/dl Creatinine 3.20 mg/dl Est Creatinine Clear Calc Drug Dose 18.5 ml/min Estimated GFR () 16.0 Estimated GFR (Non- 13.8 BUN/Creatinine Ratio 13.3 Random Glucose 91 mg/dl Uric Acid 5.5 mg/dl Calcium Level 7.5 mg/dl Total Bilirubin 2.1 mg/dl Aspartate Amino Transf (AST/SGOT) 89 U/L Alanine Aminotransferase (ALT/SGPT) 59 U/L Alkaline Phosphatase 247 U/L Total Protein 5.3 gm/dl Albumin 1.7 gm/dl Globulin 3.6 gm/dl Albumin/Globulin Ratio 0.5 Random Vancomycin Level 34.6 mcg/ml Date/Time Source Procedure Growth Status 09/18/16 13:35 Urine,Catheterized Urine Culture Pending Received Assessment & Plan LEFT HIP CELLULITIS, HX RECENT LEFT EFREM - patient s/p left EFREM 09/[address] Leavitt, discharged on 09/06 to [facility] for rehab; presented with fever and generalized weakness - leukocytosis and febrile - s/p Vanco and Zosyn in the ER - received Vancomycin --> change to Daptomycin today given worsening renal function - blood cultures ngtd - wound culture with MRSA - ortho consulted -> to OR today for I/T/D and polyethylene exchange and femoral head exchange - CT hip on admission without significant joint effusion and 6cm collection in gluteal musculature ALBERT - likely contrast induced nephropathy, in the setting of infection - Nephrology consulted - continue IVF's - kaur catheter for accurate I/O's - renally dose medications ABNORMAL LFT's - possibly due to underlying infection and medications - liver ultrasound unremarkable - improving ANEMIA - likely due to blood loss from recent surgery, no signs of bleeding - hgb stable from prior admission - no role for transfusion - continue iron replacement DEMENTIA, BIPOLAR - continue divalproex, donepezil, fluoxetine GERD - continue PPI LEFT ABDOMINAL FOLD MACERATION - exam is c/w topical shweta - continue Mycogen cream - wound care nurse consulted DVT PROPHYLAXIS - discontinue ASA 325mg BID given worsening renal function - JASON's and SCD's for now CODE STATUS - Full code PT/OT evaluations to determine discharge disposition. Likely discharge home with home health when medically stable. Consultants: Orthopedics Nephrology Procedures: CT hip 1. 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 No evidence of fracture 3. No significant joint effusion although the examination is limited due to streak artifact 4. Partially visualized 6 cm collection within the subcutaneous tissues lateral to the left gluteal musculature. This is not possible on the basis of this study to determine whether this collection is infected or sterile. Liver ultrasound No significant abnormality identified within the right upper quadrant. Current Inpatient Medications: Current Inpatient Medications Medications (Trade) Dose Ordered Sig/Quan Route Start Time Stop Time Status Last Admin Dose Admin Ondansetron HCl (Zofran Inj) 4 mg Q6H PRN IV 09/17/16 10:30 10/17/16 10:29 Cholecalciferol (Vitamin D Tab) 4,000 inter.unit QAM PO 09/18/16 09:00 10/18/16 08:59 09/19/16 08:54 4,000 INTER.UNIT Divalproex Sodium (Depakote Extended Rel Tab) 1,000 mg HS PO 09/17/16 21:00 10/17/16 20:59 09/18/16 21:25 1,000 MG Ferrous Gluconate (Ferrous Gluconate Tab) 324 mg BIDM PO 09/17/16 17:45 10/17/16 17:59 09/19/16 08:53 324 MG Fluoxetine HCl (Prozac Cap) 20 mg QAM PO 09/18/16 09:00 10/18/16 08:59 09/19/16 08:53 20 MG Pantoprazole Sodium (Protonix Tab) 40 mg QAM PO 09/18/16 09:00 10/18/16 08:59 09/19/16 08:53 40 MG Senna/Docusate Sodium (Senokot S Tab) 1 tab DAILY PRN PO 09/17/16 10:45 10/17/16 10:44 Vitamin B Complex (Vitamin B Complex) 1 tab DAILY PO 09/18/16 09:00 10/18/16 08:59 09/19/16 08:53 1 TAB Donepezil HCl (Aricept Tab) 10 mg QAM PO 09/18/16 09:00 10/18/16 08:59 09/19/16 08:53 10 MG Miscellaneous Information (Order Awaiting Action) 1 ea QS N/A 09/17/16 16:00 10/17/16 15:59 Ioversol (Optiray 320) 100 ml UD PRN IV 09/17/16 11:00 09/21/16 10:59 Nystatin/ Triamcinolone Acetonide 1 appln 1 appln BID EXT 09/17/16 11:15 10/17/16 11:14 09/19/16 08:53 1 APPLN Sodium Chloride (Nss 1000ml) 1,000 ml @ 125 mls/hr Q8H IV 09/18/16 03:30 10/19/16 03:29 09/19/16 10:00 125 MLS/HR Acetaminophen (Tylenol Tab) 650 mg Q6H PRN PO 09/18/16 08:15 10/18/16 08:14 09/18/16 18:13 650 MG Gabapentin (Neurontin Cap) 200 mg TID PO 09/18/16 14:00 10/18/16 13:59 09/19/16 08:54 200 MG Oxycodone HCl (Roxicodone Immediate Rel Tab) 5 mg Q6 PRN PO 09/18/16 18:00 10/02/16 17:59 09/18/16 19:39 5 MG Tramadol HCl (Ultram Tab) 100 mg Q6 PRN PO 09/18/16 15:15 10/18/16 15:14 09/18/16 23:33 100 MG Daptomycin 1 ea 1 ea UD PRN N/A 09/19/16 08:30 10/19/16 08:29 Daptomycin/Sodium Chloride (Cubicin IV/Nss 50ml) 58.5 ml @ 120 mls/hr Q48H IV 09/19/16 09:00 09/29/16 08:59 09/19/16 09:00 120 MLS/HR
[2016-09-19] MEDS ORDERED: NEOSTIGMINE METHYLSULFATE 5 MG/5 ML SYR ONE (13:40)
[2016-09-19] MEDS ORDERED: DEXAMETHASONE SOD INJ 4 MG/ML VIAL ONE (13:40)
[2016-09-19] MEDS ORDERED: ONDANSETRON INJ 2 MG/ML 2 ML VIAL ONE (13:40)
[2016-09-19] MEDS ORDERED: PROPOFOL IV EMULSION 10 MG/ML 20 ML VIAL IV ONE (13:40)
[2016-09-19] MEDS ORDERED: ROCURONIUM BROMIDE 10 MG/ML 5 ML VIAL ONE (13:40)
[2016-09-19] MEDS ORDERED: LIDOCAINE HCL 2% 2 ML VIAL (20MG/ML) ONE ×2 (13:40→13:41)
[2016-09-19] MEDS ORDERED: GLYCOPYRROLATE INJ 0.2 MG/ML VIAL ONE ×2 (13:40→13:41)
[2016-09-19] MEDS ORDERED: MIDAZOLAM HCL 1 MG/ML 2ML VIAL ONE (13:40)
[2016-09-19] MEDS ORDERED: FENTANYL CITRATE INJ 50 MCG/1 ML 2 ML VIAL ONE ×2 (13:41→15:48)
[2016-09-19] MEDS ORDERED: POVIDONE-IODINE OP SOLN 30 ML BTL ONE ×2 (15:04→15:05)
[2016-09-19] MEDS ORDERED: BACITRACIN 50000 UNIT VIAL ONE (15:04)
[2016-09-19] MEDS ORDERED: SODIUM CHLORIDE 0.9% 1000ML 1,000 ML IV PRN (15:09)
[2016-09-19] MEDS ORDERED: KETAMINE HCL INJ 50 MG/ML 10 ML VIAL ONE (15:10)
[2016-09-19] MEDS ORDERED: ONDANSETRON INJ 2 MG/ML 2 ML VIAL IV PRN (15:15)
[2016-09-19] MEDS ORDERED: DAKIN'S SOLN 0.5% FULL STRENGTH 473ML BTL IR ONE (17:07)
[2016-09-19] MEDS ORDERED: PHENYLEPHRINE 100MCG/ML 5ML SYR ONE (17:11)
--- NOTE | 2016-09-19 17:18 | [facility] Post Operative Brief Note ---
Immediate Operative Summary Operative Date Sep 19, 2016. Pre-Operative Diagnosis Infected left hip total arthroplasty Post-Operative Diagnosis Same as preoperative diagnosis Procedure(s) Performed Left Hip Irrigation and Debridement; Left Head/Polyethylene Exchange Surgeon Dr. Leavitt [employer] Consultant Surgeon(s) Ye Perkins PA-C Estimated Blood Loss 200ml Findings Hematoma - left hip and subcutaneous tissues. Fluids (cc crystalloids) 1400 cc + 1 unit of pRBC Specimens a. left hip explant b. Cultures X 3 - 2 from Subcutaneous site and 1 deep Drains Hmv X 2 - Deep and Superfiscial Anesthesia General Complication(s) None Disposition Recovery Room / PACU
[2016-09-19] MEDS: FENTANYL CITRATE INJ 50 MCG/1 ML 2 ML VIAL IV PRN ×4 (17:27→17:42)
[2016-09-19] MEDS ORDERED: SILVER SULFADIAZINE 1% CR 50 GM JAR EXT PRN (17:30)
[2016-09-19] MEDS ORDERED: BISACODYL 10 MG SUPP PR PRN (17:30)
[2016-09-19] MEDS ORDERED: MAGNESIUM HYDROXIDE SUSP 30 ML UDC PO PRN (17:30)
--- NOTE | 2016-09-19 18:10 | Anesthesiology Progress Note ---
Anesthesia Post Op Note Date & Time Sep 19, 2016 at 18:02 Vital Signs Pain Intensity: 4 Vital Signs Past 12 Hours Date Time Temp Pulse Resp B/P Pulse Ox O2 Delivery O2 Flow Rate FiO2 09/19/16 18:00 118 16 118/52 96 Nasal Cannula 3 09/19/16 17:50 122 16 119/47 100 Mask 5 09/19/16 17:40 122 16 104/58 100 Mask 5 09/19/16 17:30 118 16 104/52 100 Mask 10 09/19/16 17:21 36.5 121 16 120/56 100 Mask 10 09/19/16 08:00 109/61 09/19/16 07:31 37.5 101 20 89/53 94 Nasal Cannula 2.0 73/38 76/36 76/38 09/19/16 07:30 Nasal Cannula 2.0 Notes Mental Status: alert / awake / arousable, participated in evaluation Pt Amnestic to Procedure: Yes Nausea / Vomiting: adequately controlled Pain: adequately controlled Airway Patency, RR, SpO2: stable & adequate BP & HR: stable & adequate Hydration State: stable & adequate Anesthetic Complications: no major complications apparent The patient is a 70 y/o female with a h/o JOO on CPAP, HTN, ALBERT, GERD and bipolar disorder s/p L Hip I&D polyexchange and head exchange. The patient presented on 09/02/16 with fever and weakness and found to have a surgical site infection at the L Hip. Intraoperatively, the patient received a total of 200mcg IV phenylephrine to maintain her SBPs above 100. EBL was 200cc. She was given 1400cc crystalloid and 1 U PRBC was started. Starting Hgb was 8.7. In recovery, the patient was tachycardic in the 110s to 120s which is how her HRs have been running on the floor. Her BPs remained stable in the 110s/50s. I spoke to Dr. Gonazles who has been following the patient on the floor. She would like the patient to be transferred to telemetry for closer monitoring. She will order a repeat CBC to be drawn once the unit of PRBCs is completed.
--- NOTE | 2016-09-19 19:50 | DIAGNOSTIC IMAGING REPORT ---
SINGLE VIEW PELVIS; SINGLE VIEW LEFT HIP CLINICAL HISTORY: Postoperative examination. FINDINGS: An AP portable view of the hips and lower pelvis with a crosstable lateral portable view of the left hip are compared to study dated 09/02/2016. The skeletal structures are osteopenic. A bipolar left hip arthroplasty is in near anatomic alignment. A single cortical lag screw transfixes the acetabular cup. No acute fracture is seen. There are expected postoperative changes overlying the left hip including subcutaneous gas, soft soft tissue swelling, and a surgical drain. Moderate arthritic change is noted in the right hip. Surgical clips and phleboliths are identified in the pelvis. IMPRESSION: Expected postoperative findings status post left hip arthroplasty. No acute fracture is seen. Electronically signed by: Wes Ventura M.D. 09/19/2016 7:48 PM Dictated Date/Time: 09/19/2016 7:46 PM
[2016-09-19] MEDS: DIVALPROEX 500 MG EXTENDED RELEASE TAB PO SCH (21:02)
[2016-09-19] MEDS: DOCUSATE SODIUM 100 MG CAP PO SCH (21:02)
[2016-09-19] MEDS: RIFAMPIN 300 MG CAP PO SCH (21:37)
[2016-09-19 22:50] LABS: HEMATOCRIT 32.9 % (37-47)
--- NOTE | 2016-09-19 23:57 | OPERATIVE REPORT ---
DATE OF OPERATION: 09/19/2016 SURGEON: Florentino Leavitt MD SUPERVISOR [employer] REPAIR: JOSÉ MIGUEL [place] PREOPERATIVE DIAGNOSIS: Left acute infected total hip arthroplasty. POSTOPERATIVE DIAGNOSIS: Same. PROCEDURE PERFORMED: Irrigation and debridement with polyethylene exchange and femoral head exchange of the left total hip arthroplasty. COMPLICATIONS: None. ESTIMATED BLOOD LOSS: 200 mL FLUID REPLACEMENT: 1400 mL crystalloid fluid replacement with 1 unit of packed red blood cells. ANESTHESIA: General. SPECIMENS: Three sets of cultures, two superficial culture from the subcutaneous tissues and one deep culture from the hip joint. COMPLICATIONS: None. OPERATIVE INDICATIONS: The patient is a 70-year-old female with multiple underlying medical comorbidities, including significant obesity, who is now a little over 2 weeks out from a left total hip replacement. She was at [facility] and doing pretty well and then, on Monday, she started to develop some redness around the incision site. There did not appear to be anything too unusual, they put her on some oral antibiotics and on Monday morning, she started having fevers. She was actually being discharged from [facility] and was taken to the Emergency Room. She was evaluated and admitted by the medicine service. She was admitted for fever with likely cellulitis. She did have an elevated white cell count. She does have multiple comorbidities, including obesity and had a lot of redness and irritated areas underneath the skin folds, etc. She was also having just a little bit of serous weepage throughout the incision site, which looked to be through the kamar. She was admitted to the hospital and placed on IV antibiotics. After almost 48 hours of antibiotics, there was no real significant response. She continued to have recurrent fevers. Her white count did improve and she was feeling some better, but with this drainage 2 weeks out, I elected to proceed with irrigation, debridement and likely femoral head and polyethylene exchange for a presumed infection. OPERATIVE FINDINGS: Operative findings revealed a large soft tissue envelope. She did have some fluid, which looked like fairly normal serosanguineous fluid in the subcutaneous tissues, mostly at the upper part of her incision site. This did not appear to communicate with the underlying hip joint capsule. In the hip joint capsule, there was also an effusion, not under tense pressure in any fashion. Both of these fluid collections appeared fairly normal in appearance without any real inflammatory or purulent nature to them. OPERATIVE PROCEDURE: The patient taken to the operating room, identified and placed on the operating table in supine position. All contact areas were appropriately padded. IV antibiotics had been provided on the floor previously. We did not give any additional antibiotics at this time. A general anesthetic was implemented by anesthesia team. The patient was then placed in the right lateral decubitus position. An axillary roll was placed. A Stulberg hip positioner was used for positioning. The kamar were then removed from the left hip. I then scrubbed the leg with Hibiclens. We then prepped it with ChloraPrep and then draped the hip in the normal standard fashion. A posterolateral approach to the hip was then performed, using the previous incision. Sharp dissection was carried out through the subcutaneous tissues. There was a very large soft tissue envelope. There was a fluid collection superiorly in the subcutaneous tissues. I did take an initial culture when I first made the skin incision and then one deeper in subcutaneous tissues, closer to the muscle/fascial layer. These were both sent off for stat Gram stain, aerobic and anaerobic culture. Once I got down to the IT band and gluteal fascia, I irrigated the wound some. There did not appear to be any direct communication with the hip joint. Despite this, I elected to open the hip joint capsule to make sure we addressed the whole entire issue. The PDS suture was removed. There was a fluid collection in the joint itself and I did culture this as well. I then opened the length of the incision. I irrigated the wound extensively. We then dislocated the femoral head. The hip was quite stable. We removed the femoral head. I then retracted the femur anteriorly and removed the polyethylene component. The acetabulum was well fixed. I removed the polyethylene, using the drill and screw technique, where I drilled with a 3.2 drill bit and then used a 6.5 cancellous screw to remove the polyethylene. I then irrigated the entire wound. I then used a Hibiclens scrub brush to scrub the acetabular component the best that I could, as well as the femoral neck and trunnion. We took great care not to scratch the trunnion itself. I then used a full strength Dakin solution and irrigated the wound and let that sit in the wound for 3 minutes on 2 separate occasions. I then irrigated this out with 3 liters of pulsatile lavage solution. I then irrigated the wound with a combination of 5% Povidone-iodine solution in 500 mL of normal saline. I let this sit in the wound for 3 minutes on 2 separate occasions, as well. I then irrigated the wound again with 3 liters of pulsatile lavage solution. We changed our gloves and the suction tube. I irrigated the wound additionally. I then placed a Biomet highly cross-linked polyethylene liner with a 50 mm outer diameter, 32 mm inner diameter with a del rio placed inferior and posterior. I then cleaned the trunnion and placed a +5/32 mm metal articular ball. The hip was located and once again, found to be stable. I irrigated the wound extensively. We used another 3 liters of pulsatile lavage solution. I then repaired the posterior capsule with #1 PDS suture through drill holes in the posterior trochanter. I did remove the previously placed capsular stitches. I then placed 2 Hemovac drains deep in the hip and then closed the IT band and gluteal fascia with #1 PDS suture in a running fashion. I then placed 2 additional drains in the subcutaneous tissues. I then closed the skin with a combination of #1 Prolene and 3-0 nylon suture in a simple fashion. The #1 Prolene were used in a retention stitch fashion. Once this was completed, a sterile dressing composed of Xeroform, 4 x 4s, ABD pad and Medipore tape was applied. The patient was then placed back in the supine position and brought out of general anesthesia and transferred to the recovery room in stable condition. The patient tolerated the procedure well with no complications. All needle and sponge counts were correct at the end of the operation. I attest to the content of the Intraoperative Record and any orders documented therein. Any exceptions are noted below. JT
[2016-09-20] VITALS (10 sets, daily range): BP systolic 80–130; BP diastolic 44–62; PULSE 72–109; TEMP 36.7–38.9; O2SAT 94–99
[2016-09-20] MEDS ORDERED: ALBUMIN HUMAN 25% 12.5 GM/50 ML VIAL IV ONE (01:15)
[2016-09-20] MEDS: ACETAMINOPHEN 325 MG TAB PO PRN (02:00)
[2016-09-20] MEDS: SODIUM CHLORIDE 0.9% 1000ML 1,000 ML IV SCH ×4 (02:02→21:02)
--- NOTE | 2016-09-20 08:35 | Anesthesiology Progress Note ---
Anesthesia Post Op Note Date & Time Sep 20, 2016 at 08:25 Vital Signs Pain Intensity: 0.0 Vital Signs Past 12 Hours Date Time Temp Pulse Resp B/P Pulse Ox O2 Delivery O2 Flow Rate FiO2 09/20/16 07:35 37.5 72 20 111/62 94 09/20/16 04:05 37.8 109 24 108/47 99 Nasal Cannula 4.0 09/20/16 04:00 Nasal Cannula 4.0 09/20/16 01:58 38.9 20 115/62 97 Nasal Cannula 4.0 09/20/16 00:02 Nasal Cannula 4.0 09/19/16 23:36 37.6 116 22 108/62 99 Nasal Cannula 4.0 09/19/16 21:09 36.8 102 20 120/89 98 Notes Mental Status: see Notes Nausea / Vomiting: adequately controlled Pain: adequately controlled Airway Patency, RR, SpO2: stable & adequate BP & HR: stable & adequate Hydration State: stable & adequate Anesthetic Complications: no major complications apparent Anesthetic Complications: Pt sleep, difficult to arouse. Unable to participate in evaluation. Spoke with RN. Pt lethargic, Cr elevated at 3.2, nephrology following.
[2016-09-20 08:43] LABS: HEMATOCRIT 24.5 % (37-47); MEAN CELL VOLUME 87.5 fL (80-100); MEAN CORPUSCULAR HGB CONC 34.3 g/dl (32-36); MEAN PLATELET VOLUME 10.2 fL (7.4-10.4); PLATELET COUNT 207 K/uL (130-400); WHITE BLOOD COUNT 18.76 K/uL (4.8-10.8)
[2016-09-20 09:21] LABS: ALB/GLOB RATIO 0.6 (0.9-2); CALCIUM 7.8 mg/dl (8.5-10.1); CREATININE 4.4 mg/dl (0.60-1.20); POTASSIUM 4.5 mmol/L (3.5-5.1)
[2016-09-20] MEDS: RIFAMPIN 300 MG CAP PO SCH ×2 (09:32→20:58)
[2016-09-20] MEDS: FERROUS GLUCONATE 324 MG TAB PO SCH ×3 (09:32→16:45)
[2016-09-20] MEDS: FLUOXETINE HCL 20 MG CAP PO SCH (09:32)
[2016-09-20] MEDS: NYSTATIN/TRIAMCINOLONE CR 15 GM TUBE EXT SCH ×2 (09:33→20:55)
[2016-09-20] MEDS: GABAPENTIN 100 MG CAP PO SCH ×3 (09:33→21:00)
[2016-09-20] MEDS: CHOLECALCIFEROL 1000 INTER.UNIT TAB PO SCH (09:38)
[2016-09-20] MEDS: DOCUSATE SODIUM 100 MG CAP PO SCH ×2 (09:38→20:56)
[2016-09-20] MEDS: VITAMIN B COMPLEX TAB PO SCH (09:38)
[2016-09-20] MEDS: DONEPEZIL HCL 10 MG TAB PO SCH (09:38)
[2016-09-20] MEDS: PANTOprazole SOD 40 MG TAB PO SCH (09:38)
--- NOTE | 2016-09-20 09:53 | Medical Consult ---
Consultation Date of Consultation: Sep 20, 2016. Attending Physician: Khari Auguste MD Reason for Consultation: Antibiotic management History of Present Illness 70-year-old female with multiple medical comorbidities who underwent left total hip arthroplasty approximately 2 weeks ago. Patient apparently did well until several days ago, when she had onset of fever with redness and drainage from the left hip wound. She was started empirically on dicloxacillin but symptoms worsened and she eventually was referred to the emergency department and admitted. She was found to have evidence of surgical site infection, and she has now gone to the operating room for debridement and poly exchange. Operative Gram stain from deep specimen showing gram-positive cocci. Superficial wound culture growing MR . CT scan of the hip, read by me, showed what appeared to be superficial collection. Patient currently being treated with combination of daptomycin and rifampin.Had temperature of 38.9 overnight. Blood cultures are no growth to date. Past Medical/Surgical History Medical Problems: (1) Abdominal pain Status: Acute (2) Anemia Status: Chronic (3) Anxiety Status: Chronic (4) Bipolar disorder Status: Chronic (5) Dementia Status: Chronic (6) Diastolic dysfunction Permanent Comment: echo 05/2015 - EF 55-60%, grade II diastolic dysfunction Status: Chronic (7) Facial cellulitis Status: Acute (8) Facial cellulitis Status: Acute (9) Gastroesophageal reflux disease Status: Chronic (10) GERD (gastroesophageal reflux disease) Status: Acute (11) Nocturnal hypoxemia Status: Chronic (12) OCD (obsessive compulsive disorder) Status: Chronic (13) JOO on CPAP Status: Chronic (14) Spinal stenosis Status: Chronic Social History Problems: (1) History of total left hip arthroplasty Status: Acute Medical Problems: (1) Anemia (2) Anxiety (3) Bipolar disorder (4) Bipolar disorder (5) Dementia (6) Dementia (7) Diastolic dysfunction (8) Diastolic dysfunction (9) Gastroesophageal reflux disease (10) GERD (gastroesophageal reflux disease) (11) History of endometrial cancer (12) 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 (14) Nocturnal hypoxemia (15) OCD (obsessive compulsive disorder) (16) OCD (obsessive compulsive disorder) (17) JOO (obstructive sleep apnea) (18) JOO on CPAP (19) Spinal stenosis Surgical Problems: (1) H/O inguinal hernia repair (2) H/O total hip arthroplasty (3) History of carpal tunnel surgery (4) History of carpal tunnel surgery (5) History of cataract surgery (6) History of hysterectomy (7) History of hysterectomy (8) History of vitrectomy (9) Hx of cataract surgery (10) Hx of cholecystectomy (11) S/P arthroscopy of left knee (12) s/p cholecystectomy (13) s/p colonoscopy (14) s/p ectopic (15) s/p repair inguinal hernia (16) Status post total knee replacement, right (17) Status post total right knee replacement Family History Heart disease MOTHER Social History Smoking Status: Never Smoker Alcohol Use: none Drug Use: none Marital Status: single Allergies Coded Allergies: Adhesives (Verified Allergy, Unknown, ADHESIVE TAPE -- BLISTERS, 09/17/16) Cetirizine (Verified Allergy, Unknown, SORES IN MOUTH, HEAD CONGESTION, ) Dicloxacillin (Unverified Allergy, Unknown, MOUTH SORE, 09/17/16) Erythromycin (Verified Allergy, Unknown, SORES IN MOUTH, 09/17/16) Tetracycline (Verified Adverse Reaction, Intermediate, NAUSEA, 09/17/16) Codeine (Verified Adverse Reaction, Mild, NAUSEA, 09/17/16) Doxycycline (Verified Adverse Reaction, Mild, NAUSEA, 09/17/16) Morphine (Verified Adverse Reaction, Unknown, "MAKES ME FEEL LOOPY", ) Current Inpatient Medications Current Inpatient Medications Medications (Trade) Dose Ordered Sig/Quan Route Start Time Stop Time Status Last Admin Dose Admin Ondansetron HCl (Zofran Inj) 4 mg Q6H PRN IV 09/17/16 10:30 10/17/16 10:29 Cholecalciferol (Vitamin D Tab) 4,000 inter.unit QAM PO 09/18/16 09:00 10/18/16 08:59 09/19/16 08:54 4,000 INTER.UNIT Divalproex Sodium (Depakote Extended Rel Tab) 1,000 mg HS PO 09/17/16 21:00 10/17/16 20:59 09/19/16 21:02 1,000 MG Fluoxetine HCl (Prozac Cap) 20 mg QAM PO 09/18/16 09:00 10/18/16 08:59 09/20/16 09:32 20 MG Pantoprazole Sodium (Protonix Tab) 40 mg QAM PO 09/18/16 09:00 10/18/16 08:59 09/19/16 08:53 40 MG Senna/Docusate Sodium (Senokot S Tab) 1 tab DAILY PRN PO 09/17/16 10:45 10/17/16 10:44 Vitamin B Complex (Vitamin B Complex) 1 tab DAILY PO 09/18/16 09:00 10/18/16 08:59 09/19/16 08:53 1 TAB Donepezil HCl (Aricept Tab) 10 mg QAM PO 09/18/16 09:00 10/18/16 08:59 09/20/16 09:38 10 MG Miscellaneous Information (Order Awaiting Action) 1 ea QS N/A 09/17/16 16:00 10/17/16 15:59 Ioversol (Optiray 320) 100 ml UD PRN IV 09/17/16 11:00 09/21/16 10:59 Nystatin/ Triamcinolone Acetonide 1 appln 1 appln BID EXT 09/17/16 11:15 10/17/16 11:14 09/20/16 09:33 1 APPLN Sodium Chloride (Nss 1000ml) 1,000 ml @ 80 mls/hr [id number] IV 09/18/16 03:30 10/19/16 03:29 09/20/16 09:14 80 MLS/HR Acetaminophen (Tylenol Tab) 650 mg Q6H PRN PO 09/18/16 08:15 10/18/16 08:14 09/20/16 02:00 650 MG Gabapentin (Neurontin Cap) 200 mg TID PO 09/18/16 14:00 10/18/16 13:59 09/20/16 09:33 200 MG Oxycodone HCl (Roxicodone Immediate Rel Tab) 5 mg Q6 PRN PO 09/18/16 18:00 10/02/16 17:59 09/18/16 19:39 5 MG Tramadol HCl (Ultram Tab) 100 mg Q6 PRN PO 09/18/16 15:15 10/18/16 15:14 09/18/16 23:33 100 MG Daptomycin 1 ea 1 ea UD PRN N/A 09/19/16 08:30 10/19/16 08:29 Daptomycin/Sodium Chloride (Cubicin IV/Nss 50ml) 58.5 ml @ 120 mls/hr Q48H IV 09/19/16 09:00 09/29/16 08:59 09/19/16 09:00 120 MLS/HR Magnesium Hydroxide (Milk Of Magnesia Susp) 30 ml Q6H PRN PO 09/19/16 17:30 10/19/16 17:29 Bisacodyl (Dulcolax Supp) 10 mg DAILY PRN NH 09/19/16 17:30 10/19/16 17:29 Docusate Sodium (coLACE CAP) 100 mg BID PO 09/19/16 21:00 10/19/16 20:59 09/19/16 21:02 100 MG Ferrous Gluconate (Ferrous Gluconate Tab) 324 mg TIDM PO 09/19/16 17:45 10/19/16 17:44 09/20/16 09:32 324 MG Silver Sulfadiazine (Silvadene 1% Crm 50GM Jar) 1 appln BID PRN EXT 09/19/16 17:30 10/19/16 17:29 Rifampin (Rifadin Cap) 300 mg BID PO 09/19/16 21:00 10/31/16 20:59 09/20/16 09:32 300 MG Review of Systems Constitutional: + fever, + weakness Eyes: No problem reported ENT: No problem reported Respiratory: No problem reported Cardiovascular: No problem reported Abdomen: + nausea Musculoskeletal: + joint pain Genitourinary - Female: No problem reported Neurologic: No problem reported Psychiatric: No problem reported Endocrine: No problem reported Hematologic / Lymphatic: No problem reported Integumentary: + new/changing skin lesions Allergic / Immunologic: No problem reported Physical Exam Date Time Temp Pulse Resp B/P Pulse Ox O2 Delivery O2 Flow Rate FiO2 09/20/16 08:00 94 Nasal Cannula 4.0 09/20/16 07:35 37.5 72 20 111/62 94 09/20/16 04:05 37.8 109 24 108/47 99 Nasal Cannula 4.0 09/20/16 04:00 Nasal Cannula 4.0 09/20/16 01:58 38.9 20 115/62 97 Nasal Cannula 4.0 09/20/16 00:02 Nasal Cannula 4.0 09/19/16 23:36 37.6 116 22 108/62 99 Nasal Cannula 4.0 09/19/16 21:09 36.8 102 20 120/89 98 09/19/16 20:00 Nasal Cannula 4.0 09/19/16 19:30 36.8 108 20 115/69 98 Nasal Cannula 4.0 09/19/16 19:00 36.8 104 20 110/76 98 Nasal Cannula 4.0 09/19/16 18:30 36.5 113 16 102/52 96 Nasal Cannula 3 09/19/16 18:20 36.6 115 16 112/47 96 Nasal Cannula 3 09/19/16 18:10 36.6 117 16 114/49 96 Nasal Cannula 3 09/19/16 18:00 36.7 118 16 118/52 96 Nasal Cannula 3 09/19/16 17:50 36.4 122 16 119/47 100 Mask 5 09/19/16 17:40 36.5 122 16 104/58 100 Mask 5 09/19/16 17:30 36.6 118 16 104/52 100 Mask 10 09/19/16 17:21 36.5 121 16 120/56 100 Mask 10 General Appearance: WD/WN, + mild distress, + obese Head: normocephalic, atraumatic Eyes: normal inspection, EOMI, sclerae normal ENT: normal ENT inspection, pharynx normal Neck: supple, no adenopathy, thyroid normal, trachea midline Respiratory/Chest: chest non-tender, lungs clear, normal breath sounds, no respiratory distress Cardiovascular: regular rate, rhythm, no gallop, no murmur Abdomen/GI: normal bowel sounds, non tender, soft, no organomegaly Back: normal inspection, no CVA tenderness Extremities/Musculoskelatal: no calf tenderness, normal capillary refill, + pedal edema Neurologic/Psych: alert, oriented x 3 Skin: normal color, no rash, + pertinent finding (drains in place left hip) Lymphatic: no adenopathy Laboratory Results Date/Time Source Procedure Growth Status 09/20/16 08:00 Blood Blood Culture Pending Received 09/20/16 07:55 Blood Blood Culture Pending Received 09/19/16 15:54 Drainage-Deep Hip , Left Gram Stain - Final Resulted 09/19/16 15:54 Bacterial Culture - Preliminary Staphylococcus Aureus Resulted 09/19/16 15:48 Drainage-Deep Hip , Left Gram Stain - Final Resulted 09/19/16 15:48 Bacterial Culture - Preliminary Staphylococcus Aureus Resulted 09/19/16 15:48 Drainage-Deep Hip , Left Gram Stain - Final Resulted 09/19/16 15:48 Bacterial Culture - Preliminary Staphylococcus Aureus Resulted Last 24 Hours Test 09/19/16 22:34 09/20/16 07:55 Hemoglobin 11.2 g/dL 8.4 g/dL Hematocrit 32.9 % 24.5 % White Blood Count 18.76 K/uL Red Blood Count 2.80 M/uL Mean Corpuscular Volume 87.5 fL Mean Corpuscular Hemoglobin 30.0 pg Mean Corpuscular Hemoglobin Concent 34.3 g/dl RDW Standard Deviation 55.7 fL RDW Coefficient of Variation 17.4 % Platelet Count 207 K/uL Mean Platelet Volume 10.2 fL Sodium Level 134 mmol/L Potassium Level 4.5 mmol/L Chloride Level 104 mmol/L Carbon Dioxide Level 21 mmol/L Anion Gap 9.0 mmol/L Blood Urea Nitrogen 57 mg/dl Creatinine 4.40 mg/dl Est Creatinine Clear Calc Drug Dose 14.0 ml/min Estimated GFR () 10.9 Estimated GFR (Non- 9.4 BUN/Creatinine Ratio 13.0 Random Glucose 87 mg/dl Calcium Level 7.8 mg/dl Total Bilirubin 4.2 mg/dl Aspartate Amino Transf (AST/SGOT) 49 U/L Alanine Aminotransferase (ALT/SGPT) 43 U/L Alkaline Phosphatase 239 U/L Total Protein 5.0 gm/dl Albumin 1.9 gm/dl Globulin 3.1 gm/dl Albumin/Globulin Ratio 0.6 [~ rep ct add3]] CT LEFT HIP-LOWER EXTREMITY WITH CT DOSE: 890.85 mGy.cm CLINICAL HISTORY: Left hip pain. Wound infection. Evaluate for fluid collection. History of left hip replacement. TECHNIQUE: Helical images were acquired in the transverse plane. COMPARISON STUDY: Conventional radiographic study dated 09/02/2016 FINDINGS: There is artifact secondary to a total left hip arthroplasty. No acute fractures are visualized. There is soft tissue edema within the left lateral thigh and hip. There is no pathologic joint effusion however evaluation of the joint is limited due to streak artifact. There is a partially visualized 6 cm collection within the subcutaneous soft tissues lateral to the left gluteus musculature. It is not possible to determine whether this collection is infected. IMPRESSION: 1. 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 No evidence of fracture 3. No significant joint effusion although the examination is limited due to streak artifact 4. Partially visualized 6 cm collection within the subcutaneous tissues lateral to the left gluteal musculature. This is not possible on the basis of this study to determine whether this collection is infected or sterile. Electronically signed by: Connor Oleary M.D. 09/17/2016 11:41 AM Dictated Date/Time: 09/17/2016 11:35 AM The status of this report is Signed. Draft = Not yet reviewed or approved by Radiologist. Signed = Reviewed and approved by Radiologist. <AttendingPhy>Janine Gonzales MD</AttendingPhy> <FamilyPhy>Jose M Seth MD</FamilyPhy> <PrimaryPhy>Jose M Seth MD</PrimaryPhy> < UnitNumber>[id number]</UnitNumber> <VisitNumber>[id number]</VisitNumber> < PatientName>HAILEE ROSE</PatientName> <DateOfBirth>1945</DateOfBirth > <Location>[facility]</Location> <ServiceDate>09/17/16</ServiceDate> <MNE>ESINDI</ MNE> <OrderingPhy>Annmarie Birmingham</OrderingPhy> <OrderingPhyMNE>f rep ord d Assessment & Plan Probable deep infection of left hip following arthroplasty with superficial culture growing MRSA. Now s/p debridement and poly-exchange. Daptomycin and rifampin appropriate, but I have increased dose of daptomycin to 6 mg/kg. Will need to monitor CPK while on daptomycin. Will also need periodic liver enzymes while on rifampin. Will likely require prolonged I.E. 6-8 weeks of IV Abx. Will follow.
[2016-09-20] MEDS ORDERED: SODIUM CHLORIDE 0.9% IV ONE (10:30)
[2016-09-20] MEDS ORDERED: DAPTOMYCIN IV ONE (10:30)
--- NOTE | 2016-09-20 12:41 | Clinical Documentation Query ---
QUERY 1 OF [address] BRADFORD, In your clinical opinion is this patient being managed for: ( x ) Infection L hip due to recent LTHA ( ) Other explanation of clinical findings (Please Explain) ( ) Unable to determine (Please Define) ( ) Need to Discuss ( ) Not Agree The medical record reflects the following clinical findings, treatment, and risk factors. Clinical Indicators: There is a conflict in the clinical documentation. Attending notes reflect pt with cellulitis L hip with hx of recent L EFREM. Orthopedic OP record indicates pt with acute L infected EFREM. Treatment: IV daptomycin, IV vancomycin, IV zosyn, ID consult, IV fluids, ortho consult, !/D and polyethylene and femoral head exchange L EFREM Risk Factors: morbid obesity, recent surgery, dementia QUERY 2 OF 3 In your clinical opinion is this patient being managed for: ( x ) Sepsis POA ( ) Sepsis not POA ( ) Other explanation of clinical findings (Please Explain) ( ) Unable to determine (Please Define) ( ) Need to Discuss ( ) Not Agree The medical record reflects the following clinical findings, treatment, and risk factors. Clinical Indicators: 70 yo female presented with fever and L hip erythema and drainage. WBC 19.46, low grade temp of 37.9, HR 98, BP 109/46. Temp max of 39.8. Sepsis is mentioned once in the nighttime hospitalist note 24 hours after the pt was admitted. Sepsis is not further documented in the clinical record. Treatment: 1L NSS bolus then continuous, IV zosyn, IV vancomycin, IV daptomycin, Return to OR, ID and orthopedic consults, blood and wound cx Risk Factors: age, recent L EFREM with infection QUERY 3 OF 3 In your clinical opinion is this patient being managed for: ( ) Acute blood loss anemia ( ) Other explanation of clinical findings (Please Explain) ( x ) Unable to determine (Please Define) ( ) Need to Discuss ( ) Not Agree The medical record reflects the following clinical findings, treatment, and risk factors. Clinical Indicators: PN 09/20 indicates anemia most likely due to blood loss from recent surgery. EBL of 200 cc with surgery on 09/19 Treatment: follow CBC, transfuse 1 U PRBC Risk Factors: age, surgery with expected blood loss Please clarify and document your clinical opinion in the progress notes and discharge summary. Terms such as "probable", "suspected", "likely", "questionable", "possible", or "still to be ruled out" are acceptable. IF IN AGREEMENT, YOU MUST DOCUMENT ABOVE DIAGNOSTIC STATEMENT IN DAILY PROGRESS NOTES AND DISCHARGE SUMMARY. This document is not part of the patient's record. Thank You, Anju Ramos RN [phone]
--- NOTE | 2016-09-20 13:07 | Nephrology Progress Note ---
Nephrology Progress Note Date of Service: Sep 20, 2016. Subjective Febrile ON to 38.9, despite washout procedure yesterday. remains oliguric; on 4LNC now from 2L yesterday; minimally interactive this am when seen on rounds 0810; tolerated procedure yesterday > did get 1.4L fluid and 1 unit pRBC Objective Date Time Temp Pulse Resp B/P Pulse Ox O2 Delivery O2 Flow Rate FiO2 09/20/16 12:00 95 Nasal Cannula 4.0 09/20/16 11:24 36.9 88 22 130/62 95 09/20/16 08:00 94 Nasal Cannula 4.0 09/20/16 07:35 37.5 72 20 111/62 94 09/20/16 04:05 37.8 109 24 108/47 99 Nasal Cannula 4.0 09/20/16 04:00 Nasal Cannula 4.0 09/20/16 01:58 38.9 20 115/62 97 Nasal Cannula 4.0 09/20/16 00:02 Nasal Cannula 4.0 09/19/16 23:36 37.6 116 22 108/62 99 Nasal Cannula 4.0 09/19/16 21:09 36.8 102 20 120/89 98 09/19/16 20:00 Nasal Cannula 4.0 09/19/16 19:30 36.8 108 20 115/69 98 Nasal Cannula 4.0 09/19/16 19:00 36.8 104 20 110/76 98 Nasal Cannula 4.0 09/19/16 18:30 36.5 113 16 102/52 96 Nasal Cannula 3 09/19/16 18:20 36.6 115 16 112/47 96 Nasal Cannula 3 09/19/16 18:10 36.6 117 16 114/49 96 Nasal Cannula 3 09/19/16 18:00 36.7 118 16 118/52 96 Nasal Cannula 3 09/19/16 17:50 36.4 122 16 119/47 100 Mask 5 09/19/16 17:40 36.5 122 16 104/58 100 Mask 5 09/19/16 17:30 36.6 118 16 104/52 100 Mask 10 09/19/16 17:21 36.5 121 16 120/56 100 Mask 10 Physical Exam: General Appearance: WD/WN, no apparent distress, + obese, + pertinent finding ( lying flat on 4L02NC, responds in moans/speech hard to follow) Eyes: EOMI ENT: hearing grossly normal, + pertinent finding (dry MM) Neck: supple Respiratory/Chest: lungs clear, no respiratory distress, no accessory muscle use, + decreased breath sounds Cardiovascular: no edema, + tachycardia (in 90s regular), + systolic murmur Abdomen: normal bowel sounds, soft (kaur w/ scant urine; abd NT) Extremities: trace peripheral/dependent edema, + pertinent finding (L hip w/ 2 vacs/drains) Neurologic/Psych: lethargic, ?confused; carias Skin: no jaundice, warm/dry, no rash Current Inpatient Medications Medications (Trade) Dose Ordered Sig/Quan Route Start Time Stop Time Status Last Admin Dose Admin Ondansetron HCl (Zofran Inj) 4 mg Q6H PRN IV 09/17/16 10:30 10/17/16 10:29 Cholecalciferol (Vitamin D Tab) 4,000 inter.unit QAM PO 09/18/16 09:00 10/18/16 08:59 09/19/16 08:54 4,000 INTER.UNIT Divalproex Sodium (Depakote Extended Rel Tab) 1,000 mg HS PO 09/17/16 21:00 10/17/16 20:59 09/19/16 21:02 1,000 MG Fluoxetine HCl (Prozac Cap) 20 mg QAM PO 09/18/16 09:00 10/18/16 08:59 09/20/16 09:32 20 MG Pantoprazole Sodium (Protonix Tab) 40 mg QAM PO 09/18/16 09:00 10/18/16 08:59 09/19/16 08:53 40 MG Senna/Docusate Sodium (Senokot S Tab) 1 tab DAILY PRN PO 09/17/16 10:45 10/17/16 10:44 Vitamin B Complex (Vitamin B Complex) 1 tab DAILY PO 09/18/16 09:00 10/18/16 08:59 09/19/16 08:53 1 TAB Donepezil HCl (Aricept Tab) 10 mg QAM PO 09/18/16 09:00 10/18/16 08:59 09/20/16 09:38 10 MG Miscellaneous Information (Order Awaiting Action) 1 ea QS N/A 09/17/16 16:00 10/17/16 15:59 Ioversol (Optiray 320) 100 ml UD PRN IV 09/17/16 11:00 09/21/16 10:59 Nystatin/ Triamcinolone Acetonide 1 appln 1 appln BID EXT 09/17/16 11:15 10/17/16 11:14 09/20/16 09:33 1 APPLN Sodium Chloride (Nss 1000ml) 1,000 ml @ 80 mls/hr [id number] IV 09/18/16 03:30 10/19/16 03:29 09/20/16 10:22 80 MLS/HR Acetaminophen (Tylenol Tab) 650 mg Q6H PRN PO 09/18/16 08:15 10/18/16 08:14 09/20/16 02:00 650 MG Gabapentin (Neurontin Cap) 200 mg TID PO 09/18/16 14:00 10/18/16 13:59 09/20/16 09:33 200 MG Oxycodone HCl (Roxicodone Immediate Rel Tab) 5 mg Q6 PRN PO 09/18/16 18:00 10/02/16 17:59 09/18/16 19:39 5 MG Tramadol HCl (Ultram Tab) 100 mg Q6 PRN PO 09/18/16 15:15 10/18/16 15:14 09/18/16 23:33 100 MG Daptomycin (Consult) 1 ea UD PRN N/A 09/19/16 08:30 10/19/16 08:29 Magnesium Hydroxide (Milk Of Magnesia Susp) 30 ml Q6H PRN PO 09/19/16 17:30 10/19/16 17:29 Bisacodyl (Dulcolax Supp) 10 mg DAILY PRN SC 09/19/16 17:30 10/19/16 17:29 Docusate Sodium (coLACE CAP) 100 mg BID PO 09/19/16 21:00 10/19/16 20:59 09/19/16 21:02 100 MG Ferrous Gluconate (Ferrous Gluconate Tab) 324 mg TIDM PO 09/19/16 17:45 10/19/16 17:44 09/20/16 09:32 324 MG Silver Sulfadiazine (Silvadene 1% Crm 50GM Jar) 1 appln BID PRN EXT 09/19/16 17:30 10/19/16 17:29 Rifampin 300 mg 300 mg BID PO 09/19/16 21:00 10/31/16 20:59 09/20/16 09:32 300 MG Daptomycin/Sodium Chloride (Cubicin IV/Nss 50ml) 63 ml @ 120 mls/hr Q48H IV 09/21/16 09:00 11/02/16 08:59 Last 24 Hours Test 09/19/16 22:34 09/20/16 07:55 Hemoglobin 11.2 g/dL 8.4 g/dL Hematocrit 32.9 % 24.5 % White Blood Count 18.76 K/uL Red Blood Count 2.80 M/uL Mean Corpuscular Volume 87.5 fL Mean Corpuscular Hemoglobin 30.0 pg Mean Corpuscular Hemoglobin Concent 34.3 g/dl RDW Standard Deviation 55.7 fL RDW Coefficient of Variation 17.4 % Platelet Count 207 K/uL Mean Platelet Volume 10.2 fL Sodium Level 134 mmol/L Potassium Level 4.5 mmol/L Chloride Level 104 mmol/L Carbon Dioxide Level 21 mmol/L Anion Gap 9.0 mmol/L Blood Urea Nitrogen 57 mg/dl Creatinine 4.40 mg/dl Est Creatinine Clear Calc Drug Dose 14.0 ml/min Estimated GFR () 10.9 Estimated GFR (Non- 9.4 BUN/Creatinine Ratio 13.0 Random Glucose 87 mg/dl Calcium Level 7.8 mg/dl Total Bilirubin 4.2 mg/dl Aspartate Amino Transf (AST/SGOT) 49 U/L Alanine Aminotransferase (ALT/SGPT) 43 U/L Alkaline Phosphatase 239 U/L Total Protein 5.0 gm/dl Albumin 1.9 gm/dl Globulin 3.1 gm/dl Albumin/Globulin Ratio 0.6 Date/Time Source Procedure Growth Status 09/20/16 08:00 Blood Blood Culture Pending Received 09/20/16 07:55 Blood Blood Culture Pending Received 09/19/16 15:54 Drainage-Deep Hip , Left Gram Stain - Final Resulted 09/19/16 15:54 Bacterial Culture - Preliminary Staphylococcus Aureus Resulted 09/19/16 15:48 Drainage-Deep Hip , Left Gram Stain - Final Resulted 09/19/16 15:48 Bacterial Culture - Preliminary Staphylococcus Aureus Resulted 09/19/16 15:48 Drainage-Deep Hip , Left Gram Stain - Final Resulted 09/19/16 15:48 Bacterial Culture - Preliminary Staphylococcus Aureus Resulted Assessment & Plan 70 y/o F w/ anuric acute renal failure peak creatinine 4.4 after readmission w/ probable deep L hip infection after 09/02 L total hip replacement with superficial culture growing MRSA. Now s/p debridement and poly-exchange 09/19. On daptomycin and rifampin. Electrolytes acceptable for now; anemia slowly worsening but acceptable. ALBERT; suspect multifactorial ATN from contrast induced nephropathy in pt at risk for this w/ concurrent NSAID use and w/ elevated random vancomycin level, hypotension/ ongoing fever. -stopped ASA >> discussed w/ Dr. Gonzales importance of alternate, non nsaid VTE prophylaxis -urine cx +; unfortunately no UA collected despite order (suspect not enough specimen)>will reinforced order >recommend renal imaging; will d/w Dr Auguste CT noncon versus renal u/s (recent liver u/s noted) -daily bmp, cbc -may well need dialysis next 48 hrs Infected L total hip -s/p 09/19 I&D/ poly-exchange; surgery and inf dzs following >>recommend primary service d/w ortho best VTE prophylaxis Appreciate consult; will follow with you. Care coordinated w/ Dr. Auguste.
--- NOTE | 2016-09-20 13:37 | Progress Note ---
Internal Med Progress Note Date of Service: Sep 20, 2016. Provider Documentation: drowsy SUBJECTIVE: drowsy can open eyes and say her name and goes back to sleep had temp spike BP stable OBJECTIVE: Vital Signs-as noted below Exam: General-Drowsy ENT-normal hearing Neck-no neck masses Lungs-cta b/l no wheezing or crackles Heart-s1 and s2 heard regular rate and rhythm no murmurs Abdomen-soft bowel sounds present non tender no distension Extremities- s/p left hip I and D drain seen skin erythematous rash in groins Neuro-Drowsy Lab data as noted below. ASSESSMENT & PLAN: LEFT HIP CELLULITIS, HX RECENT LEFT EFREM s/p left EFREM 09/[address] Leavitt, discharged on 09/06 to [facility] for rehab; presented with fever and generalized weakness leukocytosis and febrile s/p Vanco and Zosyn in the ER wound cx mrsa s/p I and D by ortho yesterday and deep cx growing staph currently o iv daptomycin and rifampin ID on board and appreciate inputs still spiking temp close monitor ALBERT Most likely contrast induced nephropathy, in the setting of infection on kaur catheter for accurate I/O's Fluids as per nephrology may need dialysis Family ok for dialysis will f/u ct abd/pelvis close monitor ABNORMAL LFT's possibly due to underlying infection and medications liver ultrasound unremarkable will f/u ct scan ANEMIA Most likely due to blood loss from recent surgery, no signs of bleeding on iron replacement will f/u labs DEMENTIA, BIPOLAR on divalproex, donepezil, fluoxetine GERD PPI LEFT ABDOMINAL FOLD MACERATION mostly topical shweta on Mycogen cream wound care nurse consulted DVT PROPHYLAXIS Discontinued ASA 325mg BID given worsening renal function hep sub q for now CODE STATUS Full code DISPOSITION to be determined Family ok for dialysis if needed pt/ot prior to discharge social service for d/c planning Vital Signs: Date Time Temp Pulse Resp B/P Pulse Ox O2 Delivery O2 Flow Rate FiO2 09/20/16 16:05 36.7 98 18 87/48 97 Room Air 80/44 09/20/16 16:00 95 Nasal Cannula 4.0 09/20/16 12:00 95 Nasal Cannula 4.0 09/20/16 11:24 36.9 88 22 130/62 95 09/20/16 08:00 94 Nasal Cannula 4.0 09/20/16 07:35 37.5 72 20 111/62 94 09/20/16 04:05 37.8 109 24 108/47 99 Nasal Cannula 4.0 09/20/16 04:00 Nasal Cannula 4.0 09/20/16 01:58 38.9 20 115/62 97 Nasal Cannula 4.0 09/20/16 00:02 Nasal Cannula 4.0 09/19/16 23:36 37.6 116 22 108/62 99 Nasal Cannula 4.0 09/19/16 21:09 36.8 102 20 120/89 98 09/19/16 20:00 Nasal Cannula 4.0 09/19/16 19:30 36.8 108 20 115/69 98 Nasal Cannula 4.0 09/19/16 19:00 36.8 104 20 110/76 98 Nasal Cannula 4.0 09/19/16 18:30 36.5 113 16 102/52 96 Nasal Cannula 3 09/19/16 18:20 36.6 115 16 112/47 96 Nasal Cannula 3 Lab Results: Results Past 24 Hours Test 09/19/16 22:34 09/20/16 07:55 Range/Units Hemoglobin 11.2 8.4 12.0-16.0 g/dL Hematocrit 32.9 24.5 37-47 % White Blood Count 18.76 4.8-10.8 K/uL Red Blood Count 2.80 4.2-5.4 M/uL Mean Corpuscular Volume 87.5 80-100 fL Mean Corpuscular Hemoglobin 30.0 25-34 pg Mean Corpuscular Hemoglobin Concent 34.3 32-36 g/dl RDW Standard Deviation 55.7 36.4-46.3 fL RDW Coefficient of Variation 17.4 11.5-14.5 % Platelet Count 207 130-400 K/uL Mean Platelet Volume 10.2 7.4-10.4 fL Sodium Level 134 136-145 mmol/L Potassium Level 4.5 3.5-5.1 mmol/L Chloride Level 104 98-107 mmol/L Carbon Dioxide Level 21 21-32 mmol/L Anion Gap 9.0 3-11 mmol/L Blood Urea Nitrogen 57 7-18 mg/dl Creatinine 4.40 0.60-1.20 mg/dl Est Creatinine Clear Calc Drug Dose 14.0 ml/min Estimated GFR () 10.9 Estimated GFR (Non- 9.4 BUN/Creatinine Ratio 13.0 10-20 Random Glucose 87 70-99 mg/dl Calcium Level 7.8 8.5-10.1 mg/dl Total Bilirubin 4.2 0.2-1 mg/dl Aspartate Amino Transf (AST/SGOT) 49 15-37 U/L Alanine Aminotransferase (ALT/SGPT) 43 12-78 U/L Alkaline Phosphatase 239 45-117 U/L Total Protein 5.0 6.4-8.2 gm/dl Albumin 1.9 3.4-5.0 gm/dl Globulin 3.1 2.5-4.0 gm/dl Albumin/Globulin Ratio 0.6 0.9-2 Microbiology Results 09/20/16 Blood Culture, Received Pending 09/20/16 Blood Culture, Received Pending
[2016-09-20] MEDS: HEPARIN SOD 5000 UNIT/0.5 ML CARP SQ SCH ×2 (14:03→20:57)
--- NOTE | 2016-09-20 15:26 | DIAGNOSTIC IMAGING REPORT ---
ABDOMEN AND PELVIS CT WITHOUT CONTRAST CT DOSE: 1575.29 mGycm HISTORY: Acute renal failure. Left hip cellulitis. TECHNIQUE: Multiaxial CT images of the abdomen and pelvis were performed without contrast. COMPARISON STUDY: Abdomen and pelvis CT 11/10/2014. FINDINGS: Small bilateral pleural effusions. The heart is mildly enlarged. Patchy densities at the lung bases. No pneumoperitoneum. No pneumatosis. Left total hip arthroplasty . Moderate body wall edema. Left greater the right hip subcutaneous edema. Bladder is decompressed by a [place] catheter. The uterus appears surgically absent. Suboptimal evaluation for bowel pathology due to the lack of intravenous and oral contrast. However, there is no definite bowel wall thickening or obstruction. The appendix appears surgically absent. The kidneys are enlarged compared to the prior study. There is also fat stranding within the renal sinus fat. No hydronephrosis. This likely corresponds to the patient's history of acute renal failure. Cholecystectomy. The unenhanced liver, spleen, adrenal glands, and pancreas are unremarkable. Surgical clips surrounding the IVC. Mild mesenteric panniculitis remains unchanged. Trace pelvic free fluid. IMPRESSION: 1. The kidneys are enlarged compared the prior study consistent with the patient's history of acute renal failure. No hydronephrosis. 2. Small bilateral pleural effusions and bibasilar densities. This may represent atelectasis or pneumonia. 3. Moderate body wall edema. There is also left greater than right bilateral hip subcutaneous edema. There is a left total hip arthroplasty. 4. Trace pelvic free fluid. 5. Additional findings as described above. Electronically signed by: Jv Busby M.D. 09/20/2016 3:24 PM Dictated Date/Time: 09/20/2016 3:05 PM
--- NOTE | 2016-09-20 16:09 | PROGRESS NOTE ---
DATE: 09/20/2016 SUBJECTIVE: A 70-year-old white female postop day 1 from I and D and polyethylene exchange and femoral head exchange for acutely infected total hip replacement. She has also developed renal failure. The etiology of this is possibly multifactorial. She is pretty sedated and difficult to examine this afternoon. She denies any clear pain. OBJECTIVE: VITAL SIGNS: Temperature 36.9. Vital signs stable. GENERAL: Reveals is sedated elderly female. She is lying in bed. She is arousable and does follow some very simple commands, but takes quite a bit of encouragement. EXTREMITIES: Examination of left hip reveals the dressing to be in place. Slight bit of serous drainage. Drains are in place. She does voluntarily move her foot on command. She clearly plantarflexes. Dorsiflexion is a little bit more difficult to evaluate. A kind of very sluggish response. LABORATORY DATA: Hemoglobin is 8.4. Hematocrit 24.5. Creatinine elevated at 4.40. CULTURE: Culture results from all specimens are growing Staph aureus. Sensitivities are pending. ASSESSMENT: A 70-year-old female, 2-1/2 weeks out from a total hip replacement complicated by acute infection postoperatively. She is now in acute renal failure. Etiology is potentially multifactorial. Could be related to IV contrast versus sepsis versus antibiotic related. PLAN: 1. From the orthopedic standpoint, we should continue DVT prophylaxis and thigh-high TEDs, SCDs at a minimum. Probably cannot use aspirin with her current renal status. Certainly subQ Lovenox would be reasonable. 2. PT and OT. It would be best to get her up and mobilize her as soon as possible. 3. Pain control. I would really limit her pain medicines. She seems quite sedated and I am concerned that some of this may be related to her dosing with pain medicine. Recommend we use Tylenol and only stronger pain medicines if requested. 4. Medical management as per the medicine service. She will likely need 4-6 weeks of IV antibiotics followed by 6 months to p.o. antibiotics. She will likely need a PICC line and when she is more awake and alert, we can start looking into that. 5. Disposition: Disposition is guarded at this point. Any orthopedic questions can be directed to me at [phone].
[2016-09-20] MEDS: MICONAZOLE NITRATE POWDER 43 GM EXT PRN (20:55)
[2016-09-20] MEDS: DIVALPROEX 500 MG EXTENDED RELEASE TAB PO SCH (20:59)
[2016-09-21] VITALS (12 sets, daily range): BP systolic 101–115; BP diastolic 44–68; PULSE 86–93; TEMP 36.7–37.5; O2SAT 94–100
[2016-09-21] MEDS: HEPARIN SOD 5000 UNIT/0.5 ML CARP SQ SCH ×3 (05:37→21:06)
[2016-09-21 06:32] LABS: URINE APPEARANCE TURBID (CLEAR); URINE COLOR DK YELLOW; URINE EPITHELIAL CELL AUTO >30 /lpf (0-5); URINE NITRITE POS (NEG); URINE SPECIFIC GRAVITY 1.027 (1.000-1.030); UROBILINOGEN NEG (NEG); ZZURINE CULT IF INDIC CATH YES
[2016-09-21 06:36] LABS: MANUAL MICROSCOPIC REQUIRED? NO; REVIEW REQ? YES; URINE BILIRUBIN 2+ (NEG)
[2016-09-21 06:37] LABS: HEMATOCRIT 25.9 % (37-47); MEAN CELL VOLUME 85.8 fL (80-100); MEAN CORPUSCULAR HEMOGLOBIN 29.1 pg (25-34); MEAN PLATELET VOLUME 9.7 fL (7.4-10.4); PLATELET COUNT 205 K/uL (130-400); RED BLOOD COUNT 3.02 M/uL (4.2-5.4)
[2016-09-21 07:19] LABS: BASO ABS # 0.39 K/uL (0-0.2); BASOPHIL % 1.8 %; COMPLETE YES; ECHINOCYTES 1+; EOSINOPHIL % 13.3 %; LYMPH ABS # 0.95 K/uL (1.2-3.4); LYMPHOCYTE % 4.4 %
[2016-09-21 07:46] LABS: BUN/CREATININE RATIO 13.6 (10-20); CALCIUM 8.2 mg/dl (8.5-10.1); CREATININE 5.6 mg/dl (0.60-1.20); POTASSIUM 4.8 mmol/L (3.5-5.1)
[2016-09-21] MEDS: RIFAMPIN 300 MG CAP PO SCH ×2 (08:46→21:01)
[2016-09-21] MEDS: PANTOprazole SOD 40 MG TAB PO SCH (08:46)
[2016-09-21] MEDS: FERROUS GLUCONATE 324 MG TAB PO SCH ×3 (08:47→16:03)
[2016-09-21] MEDS: VITAMIN B COMPLEX TAB PO SCH (08:47)
[2016-09-21] MEDS: FLUOXETINE HCL 20 MG CAP PO SCH (08:47)
[2016-09-21] MEDS: DONEPEZIL HCL 10 MG TAB PO SCH (08:47)
[2016-09-21] MEDS: CHOLECALCIFEROL 1000 INTER.UNIT TAB PO SCH (08:47)
[2016-09-21] MEDS: NYSTATIN/TRIAMCINOLONE CR 15 GM TUBE EXT SCH ×2 (08:47→21:01)
[2016-09-21] MEDS: GABAPENTIN 100 MG CAP PO SCH ×3 (08:47→21:01)
[2016-09-21] MEDS: DOCUSATE SODIUM 100 MG CAP PO SCH ×2 (08:50→21:02)
[2016-09-21] MEDS ORDERED: DAPTOmycin IV 650 MG in SODIUM CHLORIDE 0.9% 50ML 50 ML IV SCH (09:00)
--- NOTE | 2016-09-21 09:24 | Nephrology Progress Note ---
Nephrology Progress Note Date of Service: Sep 21, 2016. Subjective no F past 24 hrs. remains anuric x 48 hrs; back to 2LNC from 4L yesterday; more but still minimally interactive this am; MRSA in wound. some abd pain this am. CT abd/pelvis yesterday w/o acute focal process Objective Date Time Temp Pulse Resp B/P Pulse Ox O2 Delivery O2 Flow Rate FiO2 09/21/16 07:45 37.0 86 18 109/68 95 09/21/16 04:00 Nasal Cannula 2.0 09/21/16 03:21 37.0 92 20 101/44 97 Nasal Cannula 3.0 09/21/16 00:03 37.0 93 22 113/64 97 Nasal Cannula 4.0 09/20/16 23:59 Nasal Cannula 3.0 09/20/16 20:00 95 Nasal Cannula 4.0 09/20/16 19:15 36.9 95 18 92/47 96 4.0 09/20/16 16:05 36.7 98 18 87/48 97 Room Air 80/44 09/20/16 16:00 95 Nasal Cannula 4.0 09/20/16 12:00 95 Nasal Cannula 4.0 09/20/16 11:24 36.9 88 22 130/62 95 Physical Exam: General Appearance: WD/WN, no apparent distress, + obese, + pertinent finding ( sitting up on 2L02NC, answers mostly appropriately but briefly; speech hard to follow) Eyes: EOMI ENT: hearing grossly normal, + pertinent finding (dry MM) Neck: supple Respiratory/Chest: lungs clear, no respiratory distress, no accessory muscle use, + decreased breath sounds Cardiovascular: no edema, RRR, + systolic murmur Abdomen: normal bowel sounds, soft (kaur w/ scant urine; abd today w/ some TTP diffusely w/o guarding/rebound) Extremities: trace peripheral/dependent edema, + pertinent finding (L hip w/ 2 vacs/drains) Neurologic/Psych: lethargic but not frankly confused; carias Skin: no jaundice, warm/dry, no rash Current Inpatient Medications Medications (Trade) Dose Ordered Sig/Quan Route Start Time Stop Time Status Last Admin Dose Admin Ondansetron HCl (Zofran Inj) 4 mg Q6H PRN IV 09/17/16 10:30 10/17/16 10:29 Cholecalciferol (Vitamin D Tab) 4,000 inter.unit QAM PO 09/18/16 09:00 10/18/16 08:59 09/21/16 08:47 4,000 INTER.UNIT Divalproex Sodium (Depakote Extended Rel Tab) 1,000 mg HS PO 09/17/16 21:00 10/17/16 20:59 09/20/16 20:59 1,000 MG Fluoxetine HCl (Prozac Cap) 20 mg QAM PO 09/18/16 09:00 10/18/16 08:59 09/21/16 08:47 20 MG Pantoprazole Sodium (Protonix Tab) 40 mg QAM PO 09/18/16 09:00 10/18/16 08:59 09/21/16 08:46 40 MG Senna/Docusate Sodium (Senokot S Tab) 1 tab DAILY PRN PO 09/17/16 10:45 10/17/16 10:44 Vitamin B Complex (Vitamin B Complex) 1 tab DAILY PO 09/18/16 09:00 10/18/16 08:59 09/21/16 08:47 1 TAB Donepezil HCl (Aricept Tab) 10 mg QAM PO 09/18/16 09:00 10/18/16 08:59 09/21/16 08:47 10 MG Miscellaneous Information (Order Awaiting Action) 1 ea QS N/A 09/17/16 16:00 10/17/16 15:59 Ioversol (Optiray 320) 100 ml UD PRN IV 09/17/16 11:00 09/21/16 10:59 Nystatin/ Triamcinolone Acetonide 1 appln 1 appln BID EXT 09/17/16 11:15 10/17/16 11:14 09/21/16 08:47 1 APPLN Sodium Chloride (Nss 1000ml) 1,000 ml @ 80 mls/hr [id number] IV 09/18/16 03:30 10/19/16 03:29 09/20/16 21:02 80 MLS/HR Acetaminophen (Tylenol Tab) 650 mg Q6H PRN PO 09/18/16 08:15 10/18/16 08:14 09/20/16 02:00 650 MG Gabapentin (Neurontin Cap) 200 mg TID PO 09/18/16 14:00 10/18/16 13:59 09/21/16 08:47 200 MG Oxycodone HCl (Roxicodone Immediate Rel Tab) 5 mg Q6 PRN PO 09/18/16 18:00 10/02/16 17:59 09/18/16 19:39 5 MG Tramadol HCl (Ultram Tab) 100 mg Q6 PRN PO 09/18/16 15:15 10/18/16 15:14 09/18/16 23:33 100 MG Daptomycin (Consult) 1 ea UD PRN N/A 09/19/16 08:30 10/19/16 08:29 Magnesium Hydroxide (Milk Of Magnesia Susp) 30 ml Q6H PRN PO 09/19/16 17:30 10/19/16 17:29 Bisacodyl (Dulcolax Supp) 10 mg DAILY PRN [place] 09/19/16 17:30 10/19/16 17:29 Docusate Sodium (coLACE CAP) 100 mg BID PO 09/19/16 21:00 10/19/16 20:59 09/19/16 21:02 100 MG Ferrous Gluconate (Ferrous Gluconate Tab) 324 mg TIDM PO 09/19/16 17:45 10/19/16 17:44 09/21/16 08:47 324 MG Silver Sulfadiazine (Silvadene 1% Crm 50GM Jar) 1 appln BID PRN EXT 09/19/16 17:30 10/19/16 17:29 Rifampin 300 mg 300 mg BID PO 09/19/16 21:00 10/31/16 20:59 09/21/16 08:46 300 MG Daptomycin/Sodium Chloride (Cubicin IV/Nss 50ml) 63 ml @ 120 mls/hr Q48H IV 09/21/16 09:00 11/02/16 08:59 Heparin Sodium (Porcine) (Heparin Sq 5000 Unit/0.5ml) 5,000 unit Q8 SQ 09/20/16 14:00 10/20/16 13:59 09/21/16 05:37 5,000 UNIT Miconazole Nitrate (Desenex Powder) 1 appln PRN PRN EXT 09/20/16 15:15 10/20/16 15:14 09/20/16 20:55 1 APPLN Last 24 Hours Test 09/21/16 06:00 09/21/16 06:15 Urine Color DK YELLOW Urine Appearance TURBID Urine pH 5.0 Urine Specific [place] 1.027 Urine Protein 3+ Urine Glucose (UA) NEG Urine Ketones NEG Urine Occult Blood 2+ Urine Nitrite POS Urine Bilirubin 2+ Urine Urobilinogen NEG Urine Leukocyte Esterase SMALL Urine WBC (Auto) 10-30 /hpf Urine RBC (Auto) 0-4 /hpf Urine Hyaline Casts (Auto) 0 /lpf Urine Epithelial Cells (Auto) >30 /lpf Urine Bacteria (Auto) NEG Urine Renal Epithelial Cells /lpf Urine Pathogenic Casts /lpf Urine Yeast (Auto) BUD W/ HYPHAE Urine Random Creatinine 100.0 mg/dl Urine Random Sodium 54 mEq/L Urine Random Urea Nitrogen 90 mg/dl White Blood Count 21.50 K/uL Red Blood Count 3.02 M/uL Hemoglobin 8.8 g/dL Hematocrit 25.9 % Mean Corpuscular Volume 85.8 fL Mean Corpuscular Hemoglobin 29.1 pg Mean Corpuscular Hemoglobin Concent 34.0 g/dl Platelet Count 205 K/uL Mean Platelet Volume 9.7 fL RDW Standard Deviation 54.1 fL RDW Coefficient of Variation 17.2 % Nucleated RBC Absolute Count (auto) 0.02 K/uL Neutrophils % (Manual) 77.0 % Lymphocytes % (Manual) 4.4 % Monocytes % (Manual) 3.5 % Eosinophils % (Manual) 13.3 % Basophils % (Manual) 1.8 % Nucleated Red Blood Cells % 0.1 % Neutrophils # (Manual) 16.56 K/uL Total Absolute Neutrophils 16.56 K/uL Lymphocytes # (Manual) 0.95 K/uL Total Absolute Lymphocytes 0.95 K/uL Monocytes # (Manual) 0.75 K/uL Eosinophils # (Manual) 2.86 K/uL Basophils # (Manual) 0.39 K/uL Echinocytes 1+ Sodium Level 136 mmol/L Potassium Level 4.8 mmol/L Chloride Level 107 mmol/L Carbon Dioxide Level 21 mmol/L Anion Gap 8.0 mmol/L Blood Urea Nitrogen 75 mg/dl Creatinine 5.60 mg/dl Est Creatinine Clear Calc Drug Dose 11.0 ml/min Estimated GFR () 8.1 Estimated GFR (Non- 7.0 BUN/Creatinine Ratio 13.6 Random Glucose 76 mg/dl Calcium Level 8.2 mg/dl Total Creatine Kinase 157 U/L Date/Time Source Procedure Growth Status 09/21/16 06:00 Urine,Catheterized Urine Culture Pending Received Assessment & Plan 70 y/o F w/ anuric acute renal failure peak creatinine 5.6 today after readmission 09/17 w/ 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 s/p debridement and poly-exchange 09/19. On daptomycin and rifampin. Electrolytes acceptable for now; anemia acceptable. ALBERT; anuric multifactorial ATN from contrast induced nephropathy in pt at risk for this w/ concurrent NSAID use and w/ elevated random vancomycin level, hypotension/ ongoing fever/sepsis. -urine cx +; f/u UA contaminated/ not screamingly c/w uti -daily bmp, cbc >> added hepatic function panel to this d/t bilirubin trending up/ some transaminase abnormalities -may well need dialysis next 48 hrs but do not believe she needs it today -did start renal diet Infected L total hip -s/p 09/19 I&D/ poly-exchange; surgery and inf dzs following >>on SQ heparin for VTE prophylaxis appropriately > thigh high TEDS and SCDs also recommended Appreciate consult; will follow with you. Care coordinated w/ Dr. Auguste.
[2016-09-21] MEDS: SODIUM CHLORIDE 0.9% 1000ML 1,000 ML IV SCH ×2 (12:15→21:03)
--- NOTE | 2016-09-21 14:10 | PROGRESS NOTE ---
DATE: 09/21/2016 SUBJECTIVE: A 70-year-old white female, now almost 3 weeks out from a left total hip replacement and 2 days out from I\T\D of an infected hip. She has continued to be in the PCU. Really not significantly responsive today. She does open her eyes but really does not follow commands much. OBJECTIVE: VITAL SIGNS: Temperature 36.7. Vital signs stable. Physical Exam: Patient lying in bed. Minimally responsive. Cannot get her to follow commands this afternoon. Appears comfortable and very edematous. LABORATORY DATA: Hemoglobin 8.8. Hematocrit 25.9. White cell count 21.50. Electrolytes, creatinine increased to 5.60. CULTURE RESULTS: Culture results are growing MRSA from her hip wound culture, which is an accurate culture. ASSESSMENT: A 70-year-old female, almost 3 weeks out from left total hip replacement complicated by an infection. Cultures are growing methicillin-resistant Staph aureus which I believe is true infection and the appropriate bacteria, considering this is an intraoperative specimen. She is currently on daptomycin as well as rifampin, which should manage this. Her kidneys continue to slowly deteriorate in function and hopefully they will respond with continued medical management. From the orthopedic standpoint, it would be good to mobilize her whenever possible. I agree with deep venous thrombosis prophylaxis including thigh-high TEDs, SCDs, and subQ heparin for now. I would also strongly emphasize the need for decubitus ulcer precautions. We will continue to follow her along. I am going to leave the drains in for today and take them out likely tomorrow. PLAN: Continue aggressive medical management. She would continue on the daptomycin and rifampin, which should treat the MRSA infection. She will need a PICC line for 6 weeks of IV antibiotic therapy. Continue DVT prophylaxis including thigh-high TEDs, SCDs, and subQ heparin. It would be good to mobilize her when possible. She can weightbear as tolerated in left lower extremity with hip precautions. I am going to leave the drains in today and likely remove them tomorrow. Any orthopedic questions can be directed to me at [phone]. [facility]
[2016-09-21] MEDS: BOOST BREEZE NUTRITION DRINK 1 BOX PO SCH (16:03)
--- NOTE | 2016-09-21 16:25 | Progress Note ---
Internal Med Progress Note Date of Service: Sep 21, 2016. Provider Documentation: SUBJECTIVE: drowsy able to take pills and eat breakfast as per nursing staff no temp spikes today hemodynamics stable OBJECTIVE: Vital Signs-as noted below Exam: General-Drowsy ENT-normal hearing Neck-no neck masses Lungs-cta b/l no wheezing or crackles Heart-s1 and s2 heard regular rate and rhythm no murmurs Abdomen-soft bowel sounds present non tender no distension Extremities- s/p left hip I and D drain seen skin erythematous rash in groins Neuro-Drowsy Lab data as noted below. ASSESSMENT & PLAN: LEFT HIP CELLULITIS and infection from RECENT LEFT EFREM Sepsis from above s/p left EFREM 09/[address] Leavitt, discharged on 09/06 to [facility] for rehab; presented with fever and generalized weakness leukocytosis and febrile s/p Vanco and Zosyn in the ER wound cx mrsa s/p I and D by ortho yesterday and deep cx growing staph currently on iv daptomycin and rifampin ID on board and appreciate inputs hemodynamics stable though patient still drowsy close monitor ALBERT Most likely contrast induced nephropathy, in the setting of infection on kaur catheter for accurate I/O's Fluids as per nephrology may need dialysis Family ok for dialysis ct abd/pelvis unremarkable cr 5.6 today nephrology on board close monitor Encephalopathy metabolic from sepsis and ALBERT will monitor ABNORMAL LFT's possibly due to underlying infection and medications liver ultrasound unremarkable ct scan unremarkable will repeat us if worsening will consult GI Acute blood loss ANEMIA Most likely due to blood loss from recent surgery, no signs of bleeding on iron replacement will f/u labs DEMENTIA, BIPOLAR on divalproex, donepezil, fluoxetine GERD PPI LEFT ABDOMINAL FOLD MACERATION mostly topical shweta on Mycogen cream wound care nurse consulted DVT PROPHYLAXIS Discontinued ASA 325mg BID given worsening renal function hep sub q for now CODE STATUS Full code DISPOSITION to be determined Family ok for dialysis if needed pt/ot prior to discharge social service for d/c planning Vital Signs: Date Time Temp Pulse Resp B/P Pulse Ox O2 Delivery O2 Flow Rate FiO2 09/21/16 16:00 96 Nasal Cannula 2.0 09/21/16 15:28 37.5 88 20 115/56 100 Nasal Cannula 2.0 09/21/16 12:00 95 Nasal Cannula 2.0 09/21/16 11:47 36.7 93 20 106/66 94 09/21/16 08:00 95 Nasal Cannula 2.0 09/21/16 07:45 37.0 86 18 109/68 95 09/21/16 04:00 Nasal Cannula 2.0 09/21/16 03:21 37.0 92 20 101/44 97 Nasal Cannula 3.0 09/21/16 00:03 37.0 93 22 113/64 97 Nasal Cannula 4.0 09/20/16 23:59 Nasal Cannula 3.0 09/20/16 20:00 95 Nasal Cannula 4.0 09/20/16 19:15 36.9 95 18 92/47 96 4.0 Lab Results: Results Past 24 Hours Test 09/21/16 06:00 09/21/16 06:15 Range/Units Urine Color DK YELLOW Urine Appearance TURBID CLEAR Urine pH 5.0 4.5-7.5 Urine Specific [place] 1.027 1.000-1.030 Urine Protein 3+ NEG Urine Glucose (UA) NEG NEG Urine Ketones NEG NEG Urine Occult Blood 2+ NEG Urine Nitrite POS NEG Urine Bilirubin 2+ NEG Urine Urobilinogen NEG NEG Urine Leukocyte Esterase SMALL NEG Urine WBC (Auto) 10-30 0-5 /hpf Urine RBC (Auto) 0-4 0-4 /hpf Urine Hyaline Casts (Auto) 0 0-5 /lpf Urine Epithelial Cells (Auto) >30 0-5 /lpf Urine Bacteria (Auto) NEG NEG Urine Renal Epithelial Cells 0-5 /lpf Urine Pathogenic Casts 0 /lpf Urine Yeast (Auto) BUD W/ HYPHAE NONE PRSENT Urine Random Creatinine 100.0 mg/dl Urine Random Sodium 54 mEq/L Urine Random Urea Nitrogen 90 mg/dl White Blood Count 21.50 4.8-10.8 K/uL Red Blood Count 3.02 4.2-5.4 M/uL Hemoglobin 8.8 12.0-16.0 g/dL Hematocrit 25.9 37-47 % Mean Corpuscular Volume 85.8 80-100 fL Mean Corpuscular Hemoglobin 29.1 25-34 pg Mean Corpuscular Hemoglobin Concent 34.0 32-36 g/dl Platelet Count 205 130-400 K/uL Mean Platelet Volume 9.7 7.4-10.4 fL RDW Standard Deviation 54.1 36.4-46.3 fL RDW Coefficient of Variation 17.2 11.5-14.5 % Nucleated RBC Absolute Count (auto) 0.02 0-0 K/uL Neutrophils % (Manual) 77.0 % Lymphocytes % (Manual) 4.4 % Monocytes % (Manual) 3.5 % Eosinophils % (Manual) 13.3 % Basophils % (Manual) 1.8 % Nucleated Red Blood Cells % 0.1 % Neutrophils # (Manual) 16.56 1.4-6.5 K/uL Total Absolute Neutrophils 16.56 1.4-6.5 K/uL Lymphocytes # (Manual) 0.95 1.2-3.4 K/uL Total Absolute Lymphocytes 0.95 1.2-3.4 K/uL Monocytes # (Manual) 0.75 0.11-0.59 K/uL Eosinophils # (Manual) 2.86 0-0.5 K/uL Basophils # (Manual) 0.39 0-0.2 K/uL Echinocytes 1+ Sodium Level 136 136-145 mmol/L Potassium Level 4.8 3.5-5.1 mmol/L Chloride Level 107 98-107 mmol/L Carbon Dioxide Level 21 21-32 mmol/L Anion Gap 8.0 3-11 mmol/L Blood Urea Nitrogen 75 7-18 mg/dl Creatinine 5.60 0.60-1.20 mg/dl Est Creatinine Clear Calc Drug Dose 11.0 ml/min Estimated GFR () 8.1 Estimated GFR (Non- 7.0 BUN/Creatinine Ratio 13.6 10-20 Random Glucose 76 70-99 mg/dl Calcium Level 8.2 8.5-10.1 mg/dl Total Bilirubin 4.4 0.2-1 mg/dl Direct Bilirubin 3.6 0-0.2 mg/dl Aspartate Amino Transf (AST/SGOT) 46 15-37 U/L Alanine Aminotransferase (ALT/SGPT) 39 12-78 U/L Alkaline Phosphatase 287 45-117 U/L Total Creatine Kinase 157 26-192 U/L Total Protein 5.0 6.4-8.2 gm/dl Albumin 1.6 3.4-5.0 gm/dl Microbiology Results 09/21/16 Urine Culture, Received Pending
--- NOTE | 2016-09-21 17:18 | DIAGNOSTIC IMAGING REPORT ---
ABDOMINAL ULTRASOUND, RIGHT UPPER QUADRANT HISTORY: Elevated bilirubin. COMPARISON: Right upper quadrant ultrasound September 18, [address] of the abdomen and pelvis September 16, 2016. FINDINGS: There is no biliary ductal dilatation status post cholecystectomy. There is no pancreatic ductal dilatation. Liver morphology is normal. There is no right upper quadrant ascites. There is no right hydronephrosis. The pancreatic body is normal. The head and tail are partially obscured. IMPRESSION: No significant abnormality identified within the right upper quadrant post cholecystectomy. Electronically signed by: Norm Mena M.D. 09/21/2016 5:16 PM Dictated Date/Time: 09/21/2016 5:13 PM
--- NOTE | 2016-09-21 20:55 | Infectious Disease Progress Nt ---
Progress Note Date of Service Sep 21, 2016. Subjective Pt evaluation today including: conversation w/ patient, physical exam, chart review, lab review, review of studies, conversation w/ advisor consultant, review of inpatient medication list Temperature down today, patient drowsy but arousable. No new specific complaints. All Other Systems: Reviewed and Negative Medications Current Inpatient Medications Medications (Trade) Dose Ordered Sig/Quan Route Start Time Stop Time Status Last Admin Dose Admin Ondansetron HCl (Zofran Inj) 4 mg Q6H PRN IV 09/17/16 10:30 10/17/16 10:29 Cholecalciferol (Vitamin D Tab) 4,000 inter.unit QAM PO 09/18/16 09:00 10/18/16 08:59 09/21/16 08:47 4,000 INTER.UNIT Divalproex Sodium (Depakote Extended Rel Tab) 1,000 mg HS PO 09/17/16 21:00 10/17/16 20:59 09/20/16 20:59 1,000 MG Fluoxetine HCl (Prozac Cap) 20 mg QAM PO 09/18/16 09:00 10/18/16 08:59 09/21/16 08:47 20 MG Pantoprazole Sodium (Protonix Tab) 40 mg QAM PO 09/18/16 09:00 10/18/16 08:59 09/21/16 08:46 40 MG Senna/Docusate Sodium (Senokot S Tab) 1 tab DAILY PRN PO 09/17/16 10:45 10/17/16 10:44 Vitamin B Complex (Vitamin B Complex) 1 tab DAILY PO 09/18/16 09:00 10/18/16 08:59 09/21/16 08:47 1 TAB Donepezil HCl (Aricept Tab) 10 mg QAM PO 09/18/16 09:00 10/18/16 08:59 09/21/16 08:47 10 MG Miscellaneous Information (Order Awaiting Action) 1 ea QS N/A 09/17/16 16:00 10/17/16 15:59 Nystatin/ Triamcinolone Acetonide 1 appln 1 appln BID EXT 09/17/16 11:15 10/17/16 11:14 09/21/16 08:47 1 APPLN Sodium Chloride (Nss 1000ml) 1,000 ml @ 80 mls/hr [id number] IV 09/18/16 03:30 10/19/16 03:29 09/21/16 12:15 80 MLS/HR Acetaminophen (Tylenol Tab) 650 mg Q6H PRN PO 09/18/16 08:15 10/18/16 08:14 09/20/16 02:00 650 MG Gabapentin (Neurontin Cap) 200 mg TID PO 09/18/16 14:00 10/18/16 13:59 09/21/16 08:47 200 MG Oxycodone HCl (Roxicodone Immediate Rel Tab) 5 mg Q6 PRN PO 09/18/16 18:00 10/02/16 17:59 09/18/16 19:39 5 MG Tramadol HCl (Ultram Tab) 100 mg Q6 PRN PO 09/18/16 15:15 10/18/16 15:14 09/18/16 23:33 100 MG Daptomycin (Consult) 1 ea UD PRN N/A 09/19/16 08:30 10/19/16 08:29 Magnesium Hydroxide (Milk Of Magnesia Susp) 30 ml Q6H PRN PO 09/19/16 17:30 10/19/16 17:29 Bisacodyl (Dulcolax Supp) 10 mg DAILY PRN [place] 09/19/16 17:30 10/19/16 17:29 Docusate Sodium (coLACE CAP) 100 mg BID PO 09/19/16 21:00 10/19/16 20:59 09/19/16 21:02 100 MG Ferrous Gluconate (Ferrous Gluconate Tab) 324 mg TIDM PO 09/19/16 17:45 10/19/16 17:44 09/21/16 08:47 324 MG Silver Sulfadiazine (Silvadene 1% Crm 50GM Jar) 1 appln BID PRN EXT 09/19/16 17:30 10/19/16 17:29 Rifampin 300 mg 300 mg BID PO 09/19/16 21:00 10/31/16 20:59 09/21/16 08:46 300 MG Daptomycin/Sodium Chloride (Cubicin IV/Nss 50ml) 63 ml @ 120 mls/hr Q48H IV 09/21/16 09:00 11/02/16 08:59 09/21/16 09:38 120 MLS/HR Heparin Sodium (Porcine) (Heparin Sq 5000 Unit/0.5ml) 5,000 unit Q8 SQ 09/20/16 14:00 10/20/16 13:59 09/21/16 14:14 5,000 UNIT Miconazole Nitrate (Desenex Powder) 1 appln PRN PRN EXT 09/20/16 15:15 10/20/16 15:14 09/20/16 20:55 1 APPLN Enteral Nutritional Formula (Boost Breeze Nutritional Drink) 1 box [id number] PO 09/21/16 17:00 10/21/16 16:59 Objective Vital Signs Date Time Temp Pulse Resp B/P Pulse Ox O2 Delivery O2 Flow Rate FiO2 09/21/16 19:25 37.0 87 20 107/56 100 Room Air 09/21/16 16:00 96 Nasal Cannula 2.0 09/21/16 15:28 37.5 88 20 115/56 100 Nasal Cannula 2.0 09/21/16 12:00 95 Nasal Cannula 2.0 09/21/16 11:47 36.7 93 20 106/66 94 09/21/16 08:00 95 Nasal Cannula 2.0 09/21/16 07:45 37.0 86 18 109/68 95 09/21/16 04:00 Nasal Cannula 2.0 09/21/16 03:21 37.0 92 20 101/44 97 Nasal Cannula 3.0 09/21/16 00:03 37.0 93 22 113/64 97 Nasal Cannula 4.0 09/20/16 23:59 Nasal Cannula 3.0 Physical Exam General Appearance: WD/WN, no apparent distress Eyes: normal inspection, sclerae normal ENT: normal ENT inspection, pharynx normal Neck: supple, no adenopathy, trachea midline Respiratory/Chest: lungs clear, normal breath sounds, no respiratory distress Cardiovascular: regular rate, rhythm, no gallop, no murmur Abdomen: normal bowel sounds, non tender, soft, no organomegaly Extremities: no calf tenderness, normal capillary refill Neurologic/Psychiatric: alert, oriented x 3 Skin: normal color, no rash, + pertinent finding (Dressing in place left hip) Lymphatic: no adenopathy Laboratory Results RUN DATE: 09/19/16 [facility] LAB PAGE 1 RUN TIME: 1033 Specimen Inquiry PATIENT: HAILEE ROSE LOC: AdenALYSA U # : [id number] AGE/SX: 70/F ROOM: [facility] REG : 09/17/[address]: Janine Gonzales : 1945 BED: 2 DIS : STATUS: ADM IN TLOC: SPEC #: [id number] TAMARA: 09/17/16 STATUS: COMP REQ #: [id number] RECD: 09/17/16-[address]: Emily Birmingham CRNP SOURCE: INC.SITE ENTR: 09/17/[address] [facility] [address]: Jose M Seth MD SPDC: Kristen WINKLER James S., M.D. Van Meter, Alexandra L., MD ORDERED: SURF WND CU/MARV COMMENTS: Has Specimen Been Obtained/Collected? Y Procedure Result Verified Site GRAM STAIN Final 09/18/16-0753 RESULT RARE GRAM POSITIVE COCCI FEW EPITHELIAL CELLS RARE WBCs SEEN SURFACE WOUND CULTURE Final 09/19/16-1033 Organism 1 STAPHYLOCOCCUS AUREUS QUANITY FEW SENS SENSITIVITY TO FOLLOW SENSITIVITY RESULT INDICATES A METHICILLIN RESISTANT STAPH. AUREUS. PHONED TO EMILY MILLER ON 09/19/16 AT 0756 BY Asuncion Canchola. Results were verbalized back to [place]. RESULTS WERE ALSO CALLED TO [facility] INFECTION CONTROL ANSWERING MACHINE ON 09/19/16 BY [place]. 1. STAPHYLOCOCCUS AUREUS Target Route Dose RX AB Cost M.I.C. IQ ------ ----- ------ -- ------ -------- - ------ TRIMET/SULFA S <=0.5/ 9.5 * OXACILLIN R * >2 VANCOMYCIN S 1 ERYTHROMYCIN R >4 TETRACYCLINE S <=4 CLINDAMYCIN R <=0.5 DAPTOMYCIN S <=0.5 RIFAMPIN S <=1 S = SENSITIVE I = INTERMEDIATE R = RESISTANT END OF REPORT Last 24 Hours Test 09/21/16 06:00 09/21/16 06:15 Urine Color DK YELLOW Urine Appearance TURBID Urine pH 5.0 Urine Specific [place] 1.027 Urine Protein 3+ Urine Glucose (UA) NEG Urine Ketones NEG Urine Occult Blood 2+ Urine Nitrite POS Urine Bilirubin 2+ Urine Urobilinogen NEG Urine Leukocyte Esterase SMALL Urine WBC (Auto) 10-30 /hpf Urine RBC (Auto) 0-4 /hpf Urine Hyaline Casts (Auto) 0 /lpf Urine Epithelial Cells (Auto) >30 /lpf Urine Bacteria (Auto) NEG Urine Renal Epithelial Cells /lpf Urine Pathogenic Casts /lpf Urine Yeast (Auto) BUD W/ HYPHAE Urine Random Creatinine 100.0 mg/dl Urine Random Sodium 54 mEq/L Urine Random Urea Nitrogen 90 mg/dl White Blood Count 21.50 K/uL Red Blood Count 3.02 M/uL Hemoglobin 8.8 g/dL Hematocrit 25.9 % Mean Corpuscular Volume 85.8 fL Mean Corpuscular Hemoglobin 29.1 pg Mean Corpuscular Hemoglobin Concent 34.0 g/dl Platelet Count 205 K/uL Mean Platelet Volume 9.7 fL RDW Standard Deviation 54.1 fL RDW Coefficient of Variation 17.2 % Nucleated RBC Absolute Count (auto) 0.02 K/uL Neutrophils % (Manual) 77.0 % Lymphocytes % (Manual) 4.4 % Monocytes % (Manual) 3.5 % Eosinophils % (Manual) 13.3 % Basophils % (Manual) 1.8 % Nucleated Red Blood Cells % 0.1 % Neutrophils # (Manual) 16.56 K/uL Total Absolute Neutrophils 16.56 K/uL Lymphocytes # (Manual) 0.95 K/uL Total Absolute Lymphocytes 0.95 K/uL Monocytes # (Manual) 0.75 K/uL Eosinophils # (Manual) 2.86 K/uL Basophils # (Manual) 0.39 K/uL Echinocytes 1+ Sodium Level 136 mmol/L Potassium Level 4.8 mmol/L Chloride Level 107 mmol/L Carbon Dioxide Level 21 mmol/L Anion Gap 8.0 mmol/L Blood Urea Nitrogen 75 mg/dl Creatinine 5.60 mg/dl Est Creatinine Clear Calc Drug Dose 11.0 ml/min Estimated GFR () 8.1 Estimated GFR (Non- 7.0 BUN/Creatinine Ratio 13.6 Random Glucose 76 mg/dl Calcium Level 8.2 mg/dl Total Bilirubin 4.4 mg/dl Direct Bilirubin 3.6 mg/dl Aspartate Amino Transf (AST/SGOT) 46 U/L Alanine Aminotransferase (ALT/SGPT) 39 U/L Alkaline Phosphatase 287 U/L Total Creatine Kinase 157 U/L Total Protein 5.0 gm/dl Albumin 1.6 gm/dl Assessment and Plan Probable deep infection of left hip following arthroplasty with superficial culture growing MRSA. Now s/p debridement and poly-exchange with operative cultures growing MRSA as well. Daptomycin and rifampin appropriate, but I have increased dose of daptomycin to 6 mg/kg. Will need to monitor CPK while on daptomycin. Will also need periodic liver enzymes while on rifampin. Will likely require prolonged I.E. 6-8 weeks of IV Abx. Will follow.
[2016-09-21] MEDS: DIVALPROEX 500 MG EXTENDED RELEASE TAB PO SCH (21:02)
[2016-09-22] VITALS (17 sets, daily range): BP systolic 112–146; BP diastolic 44–72; PULSE 76–87; TEMP 36.3–36.9; O2SAT 96–100
[2016-09-22] MEDS: HEPARIN SOD 5000 UNIT/0.5 ML CARP SQ SCH ×2 (05:46→14:00)
[2016-09-22 06:18] LABS: HEMATOCRIT 26.2 % (37-47); MEAN CELL VOLUME 85.9 fL (80-100); MEAN CORPUSCULAR HEMOGLOBIN 29.8 pg (25-34); MEAN CORPUSCULAR HGB CONC 34.7 g/dl (32-36); MEAN PLATELET VOLUME 9.9 fL (7.4-10.4); PLATELET COUNT 184 K/uL (130-400); RED BLOOD COUNT 3.05 M/uL (4.2-5.4); WHITE BLOOD COUNT 25.23 K/uL (4.8-10.8)
[2016-09-22 06:28] LABS: BUN/CREATININE RATIO 13.6 (10-20); CALCIUM 8.3 mg/dl (8.5-10.1); CREATININE 6.7 mg/dl (0.60-1.20); PHOSPHORUS 5.3 mg/dl (2.5-4.9); POTASSIUM 4.9 mmol/L (3.5-5.1)
[2016-09-22 07:30] LABS: BASO % 0.4 %; BASO ABS # 0.11 K/uL (0-0.2); COMPLETE YES; ECHINOCYTES 2+; EOS % 4.5 %; HYPOCHROMIA PRESENT; IG% 9.2 %; LYMPH % 5.7 %; LYMPH ABS # 1.44 K/uL (1.2-3.4); MONO % 6.2 %; POLYCHROMASIA 1+; TOXIC GRANULATION 1+
[2016-09-22] MEDS: FERROUS GLUCONATE 324 MG TAB PO SCH ×3 (07:30→16:45)
[2016-09-22] MEDS: DONEPEZIL HCL 10 MG TAB PO SCH (09:00)
[2016-09-22] MEDS: VITAMIN B COMPLEX TAB PO SCH (09:00)
[2016-09-22] MEDS: PANTOprazole SOD 40 MG TAB PO SCH (09:00)
[2016-09-22] MEDS: FLUOXETINE HCL 20 MG CAP PO SCH (09:00)
[2016-09-22] MEDS: DOCUSATE SODIUM 100 MG CAP PO SCH (09:00)
[2016-09-22] MEDS: CHOLECALCIFEROL 1000 INTER.UNIT TAB PO SCH (09:00)
[2016-09-22] MEDS: RIFAMPIN 300 MG CAP PO SCH (09:00)
[2016-09-22] MEDS: BOOST BREEZE NUTRITION DRINK 1 BOX PO SCH ×2 (09:00→16:49)
[2016-09-22] MEDS: GABAPENTIN 100 MG CAP PO SCH ×2 (09:00→14:00)
--- NOTE | 2016-09-22 09:01 | Nephrology Progress Note ---
Nephrology Progress Note Date of Service: Sep 22, 2016. Subjective 70 yo female with oliguric atn with uremic symptoms and third spacing of fluid. +wound cultures, negative blood cultures. pt with left hip replacement on 09/02 and developed a wound infection requiring washout and now with a wound vac in place. Objective Date Time Temp Pulse Resp B/P Pulse Ox O2 Delivery O2 Flow Rate FiO2 09/22/16 04:00 100 Nasal Cannula 2.0 09/22/16 03:25 36.9 87 21 138/53 96 Nasal Cannula 2.0 09/21/16 23:59 100 Nasal Cannula 2.0 09/21/16 23:28 36.7 87 20 112/64 97 Room Air 09/21/16 20:00 100 Nasal Cannula 2.0 09/21/16 19:25 37.0 87 20 107/56 100 Room Air 09/21/16 16:00 96 Nasal Cannula 2.0 09/21/16 15:28 37.5 88 20 115/56 100 Nasal Cannula 2.0 09/21/16 12:00 95 Nasal Cannula 2.0 09/21/16 11:47 36.7 93 20 106/66 94 Physical Exam: General-lethargic, difficult to arouse Eyes-no scleral icterus ENT-mmm Neck-supple Lungs-decreased at bases Heart-rrr Abdomen-bs+ s/nt Extremities-+2 edema in both arms and legs with redness of the skin in both arms , left hip wound vac Neuro-lethargic Current Inpatient Medications Medications (Trade) Dose Ordered Sig/Quan Route Start Time Stop Time Status Last Admin Dose Admin Ondansetron HCl (Zofran Inj) 4 mg Q6H PRN IV 09/17/16 10:30 10/17/16 10:29 Cholecalciferol (Vitamin D Tab) 4,000 inter.unit QAM PO 09/18/16 09:00 10/18/16 08:59 09/21/16 08:47 4,000 INTER.UNIT Divalproex Sodium (Depakote Extended Rel Tab) 1,000 mg HS PO 09/17/16 21:00 10/17/16 20:59 09/21/16 21:02 1,000 MG Fluoxetine HCl (Prozac Cap) 20 mg QAM PO 09/18/16 09:00 10/18/16 08:59 09/21/16 08:47 20 MG Pantoprazole Sodium (Protonix Tab) 40 mg QAM PO 09/18/16 09:00 10/18/16 08:59 09/21/16 08:46 40 MG Senna/Docusate Sodium (Senokot S Tab) 1 tab DAILY PRN PO 09/17/16 10:45 10/17/16 10:44 Vitamin B Complex (Vitamin B Complex) 1 tab DAILY PO 09/18/16 09:00 10/18/16 08:59 09/21/16 08:47 1 TAB Donepezil HCl (Aricept Tab) 10 mg QAM PO 09/18/16 09:00 10/18/16 08:59 09/21/16 08:47 10 MG Miscellaneous Information (Order Awaiting Action) 1 ea QS N/A 09/17/16 16:00 10/17/16 15:59 Nystatin/ Triamcinolone Acetonide 1 appln 1 appln BID EXT 09/17/16 11:15 10/17/16 11:14 09/21/16 21:01 1 APPLN Sodium Chloride (Nss 1000ml) 1,000 ml @ 80 mls/hr [id number] IV 09/18/16 03:30 10/19/16 03:29 09/21/16 21:03 80 MLS/HR Acetaminophen (Tylenol Tab) 650 mg Q6H PRN PO 09/18/16 08:15 10/18/16 08:14 09/20/16 02:00 650 MG Gabapentin (Neurontin Cap) 200 mg TID PO 09/18/16 14:00 10/18/16 13:59 09/21/16 21:01 200 MG Oxycodone HCl (Roxicodone Immediate Rel Tab) 5 mg Q6 PRN PO 09/18/16 18:00 10/02/16 17:59 09/18/16 19:39 5 MG Tramadol HCl (Ultram Tab) 100 mg Q6 PRN PO 09/18/16 15:15 10/18/16 15:14 09/18/16 23:33 100 MG Daptomycin (Consult) 1 ea UD PRN N/A 09/19/16 08:30 10/19/16 08:29 Magnesium Hydroxide (Milk Of Magnesia Susp) 30 ml Q6H PRN PO 09/19/16 17:30 10/19/16 17:29 Bisacodyl (Dulcolax Supp) 10 mg DAILY PRN [place] 09/19/16 17:30 10/19/16 17:29 Docusate Sodium (coLACE CAP) 100 mg BID PO 09/19/16 21:00 10/19/16 20:59 09/21/16 21:02 100 MG Ferrous Gluconate (Ferrous Gluconate Tab) 324 mg TIDM PO 09/19/16 17:45 10/19/16 17:44 09/21/16 08:47 324 MG Silver Sulfadiazine (Silvadene 1% Crm 50GM Jar) 1 appln BID PRN EXT 09/19/16 17:30 10/19/16 17:29 Rifampin 300 mg 300 mg BID PO 09/19/16 21:00 10/31/16 20:59 09/21/16 21:01 300 MG Daptomycin/Sodium Chloride (Cubicin IV/Nss 50ml) 63 ml @ 120 mls/hr Q48H IV 09/21/16 09:00 11/02/16 08:59 09/21/16 09:38 120 MLS/HR Heparin Sodium (Porcine) (Heparin Sq 5000 Unit/0.5ml) 5,000 unit Q8 SQ 09/20/16 14:00 10/20/16 13:59 09/22/16 05:46 5,000 UNIT Miconazole Nitrate (Desenex Powder) 1 appln PRN PRN EXT 09/20/16 15:15 10/20/16 15:14 09/20/16 20:55 1 APPLN Enteral Nutritional Formula (Boost Breeze Nutritional Drink) 1 box [id number] PO 09/21/16 17:00 10/21/16 16:59 Last 24 Hours Test 09/22/16 05:00 White Blood Count 25.23 K/uL Red Blood Count 3.05 M/uL Hemoglobin 9.1 g/dL Hematocrit 26.2 % Mean Corpuscular Volume 85.9 fL Mean Corpuscular Hemoglobin 29.8 pg Mean Corpuscular Hemoglobin Concent 34.7 g/dl Platelet Count 184 K/uL Mean Platelet Volume 9.9 fL Neutrophils (%) (Auto) 74.0 % Lymphocytes (%) (Auto) 5.7 % Monocytes (%) (Auto) 6.2 % Eosinophils (%) (Auto) 4.5 % Basophils (%) (Auto) 0.4 % Neutrophils # (Auto) 18.67 K/uL Lymphocytes # (Auto) 1.44 K/uL Monocytes # (Auto) 1.56 K/uL Eosinophils # (Auto) 1.13 K/uL Basophils # (Auto) 0.11 K/uL RDW Standard Deviation 54.1 fL RDW Coefficient of Variation 17.0 % Immature Granulocyte % (Auto) 9.2 % Immature Granulocyte # (Auto) 2.32 K/uL Nucleated RBC Absolute Count (auto) 0.03 K/uL Nucleated Red Blood Cells % 0.1 % Toxic Granulation 1+ Polychromasia 1+ Hypochromasia PRESENT Macrocytosis PRESENT Echinocytes 2+ Sodium Level 136 mmol/L Potassium Level 4.9 mmol/L Chloride Level 107 mmol/L Carbon Dioxide Level 20 mmol/L Anion Gap 9.0 mmol/L Blood Urea Nitrogen 91 mg/dl Creatinine 6.70 mg/dl Est Creatinine Clear Calc Drug Dose 9.2 ml/min Estimated GFR () 6.5 Estimated GFR (Non- 5.6 BUN/Creatinine Ratio 13.6 Random Glucose 94 mg/dl Calcium Level 8.3 mg/dl Phosphorus Level 5.3 mg/dl Total Bilirubin 4.3 mg/dl Direct Bilirubin 3.6 mg/dl Aspartate Amino Transf (AST/SGOT) 35 U/L Alanine Aminotransferase (ALT/SGPT) 32 U/L Alkaline Phosphatase 303 U/L Total Protein 4.9 gm/dl Albumin 1.5 gm/dl Assessment & Plan [id number]-becoming more uremic and will tentatively plan on dialysis access in am followed by dialysis monday and monday. blood cultures negative. will stop the iv fluids given the significant third spacing and systolics over a 100. will dialyze on a 2k bath with short two hour treatment and no uf tomorrow.
[2016-09-22] MEDS ORDERED: PIPERACILL/TAZOBAC CONSULT ACTIVE PRN (09:15)
[2016-09-22] MEDS ORDERED: PIPERACILL/TAZOBAC IV 4.5 GM in DEXTROSE 5% 100ML 100 ML IV ONE (09:15)
[2016-09-22] MEDS: NYSTATIN/TRIAMCINOLONE CR 15 GM TUBE EXT SCH ×2 (10:03→21:00)
--- NOTE | 2016-09-22 13:25 | Gastrointestinal Consultation ---
Gastrointestinal Consultation Date of Consultation: Sep 22, 2016 Attending Physician: Dr. Auguste Consulting Physician: Dr. Wiley Reason for Consultation: Elevated LFT's History of Present Illness Patient is a 70 year old female with hx of dementia, bipolar disorder, OCD, anemia, GERD, hx endometrial cancer, JOO admitted s/p left hip arthroplasty infected with MRSA, s/p debridement and poly-exchange with operative cultures growing MRSA as well with elevated LFTs for which GI is consulted. All history taken from medical record as pt is lethargic and does not respond to questions Getting Zosyn, Daptomycin and Rifampin, anticipating need for prolonged IV antibiotics WBC 15K up to 25K INR 1.1 (09/17) creat normal at baseline up to 6.7 - dialysis starting soon bili 0.5 up to 4.3 with US of RUQ showing no acute process or biliary obstruction D. bili 3.6 AST 23 up to 176 and slowing improving back to 35 ALT normal Past Medical/Surgical History Medical Problems: (1) Abdominal pain Status: Acute (2) Anemia Status: Chronic (3) Anxiety Status: Chronic (4) Bipolar disorder Status: Chronic (5) Dementia Status: Chronic (6) Diastolic dysfunction Permanent Comment: echo 05/2015 - EF 55-60%, grade II diastolic dysfunction Status: Chronic (7) Facial cellulitis Status: Acute (8) Facial cellulitis Status: Acute (9) Gastroesophageal reflux disease Status: Chronic (10) GERD (gastroesophageal reflux disease) Status: Acute (11) Nocturnal hypoxemia Status: Chronic (12) OCD (obsessive compulsive disorder) Status: Chronic (13) JOO on CPAP Status: Chronic (14) Spinal stenosis Status: Chronic Social History Problems: (1) History of total left hip arthroplasty Status: Acute Past Medical History: (1) Anemia Status: Chronic (2) Anxiety Status: Chronic (3) Bipolar disorder Status: Chronic (4) Bipolar disorder Status: Chronic (5) Dementia Status: Chronic (6) Dementia Status: Chronic (7) Diastolic dysfunction Permanent Comment: echo 05/2015 - EF 55-60%, grade II diastolic dysfunction Status: Chronic (8) Diastolic dysfunction Status: Chronic (9) Gastroesophageal reflux disease Status: Chronic (10) GERD (gastroesophageal reflux disease) Status: Chronic (11) History of endometrial cancer Permanent Comment: Postmenopausal vaginal bleeding Abnormal pelvic ultrasound and endometrial biopsy Repeat endometrial biopsy positive 08/13/2012 revealing poorly differentiated adenocarcinoma Status post total abdominal hysterectomy bilateral salpingo-oophorectomy with pelvic and periaortic lymph node sampling Stage [id number], grade 3, stage I b Status post completion of radiation therapy utilizing IMRT completed 06/21/2013 received 5040 cGy external beam therapy followed by 2 HDR treatments June 13 and June 23, total 5840 cGy Status: Resolved (12) Left Hip DJD Status: Resolved (13) Nocturnal hypoxemia Status: Chronic (14) OCD (obsessive compulsive disorder) Status: Chronic (15) OCD (obsessive compulsive disorder) Status: Chronic (16) JOO (obstructive sleep apnea) Status: Chronic (17) JOO on CPAP Status: Chronic (18) Spinal stenosis Status: Chronic Past Surgical History: Surgical Problems: (1) H/O inguinal hernia repair Status: Chronic (2) H/O total hip arthroplasty Status: Resolved (3) History of carpal tunnel surgery Status: Resolved (4) History of carpal tunnel surgery Status: Chronic (5) History of cataract surgery Status: Chronic (6) History of hysterectomy Status: Resolved (7) History of hysterectomy Status: Chronic (8) History of vitrectomy Status: Resolved (9) Hx of cataract surgery Status: Resolved (10) Hx of cholecystectomy Status: Chronic (11) S/P arthroscopy of left knee Status: Resolved (12) s/p cholecystectomy Status: Resolved (13) s/p colonoscopy Status: Resolved (14) s/p ectopic Status: Resolved (15) s/p repair inguinal hernia Status: Resolved (16) Status post total knee replacement, right Status: Chronic (17) Status post total right knee replacement Status: Resolved Family History Heart disease MOTHER Social History Smoking Status: Never Smoker Alcohol Use: none Drug Use: none Marital Status: single Allergies Coded Allergies: Adhesives (Verified Allergy, Unknown, ADHESIVE TAPE -- BLISTERS, 09/17/16) Cetirizine (Verified Allergy, Unknown, SORES IN MOUTH, HEAD CONGESTION, ) Dicloxacillin (Unverified Allergy, Unknown, MOUTH SORE, 09/17/16) Erythromycin (Verified Allergy, Unknown, SORES IN MOUTH, 09/17/16) Tetracycline (Verified Adverse Reaction, Intermediate, NAUSEA, 09/17/16) Codeine (Verified Adverse Reaction, Mild, NAUSEA, 09/17/16) Doxycycline (Verified Adverse Reaction, Mild, NAUSEA, 09/17/16) Morphine (Verified Adverse Reaction, Unknown, "MAKES ME FEEL LOOPY", ) Current Medications Home Meds and Scripts Medications Dose Route/Sig Max Daily Dose Days Date Category Dose Instructions Enema (Sodium Phosphates) 1 Maria E Maria E 1 Ea NC DAILY PRN 09/17/16 Reported Dulcolax (Bisacodyl) 10 Mg Sup 1 Supp NC DAILY PRN 09/17/16 Reported Milk of Magnesia (Magnesium Hydroxide) 30 Ml Susp 30 Ml PO DAILY PRN 09/17/16 Reported Prune Juice (Prune) Liqd 1 Dose PO DAILY PRN 09/17/16 Reported Benefiber (Wheat Dextrin) 1 Pow Pow 1 Dose PO DAILY PRN 09/17/16 Reported Dynapen (Dicloxacillin Sodium) 500 Mg Cap 500 Mg PO QID 10 09/17/16 Reported Aspirin 325 Mg Ectab 325 Mg PO BID 45 09/03/16 Rx Take to prevent blood clots. Tylenol Extra Strength (Acetaminophen) 500 Mg Tab 1,000 Mg PO Q8 30 09/03/16 Rx Take 3 times per day to lessen pain. Oxycodone HCl 5 Mg Tab 5 Mg PO Q4H PRN 30 09/03/16 Rx Take as needed for Pain. Ferrous Gluconate 324 Mg Tab 324 Mg PO BIDM 30 09/03/16 Rx Stool Softener (Sennosides-Docusate Sodium) 1 Tab Tab 1 Tab PO DAILY PRN 09/02/16 Reported B Complex (B-Complex W/ Folic Acid) 1 Tab Tab 1 Tab PO DAILY 09/02/16 Reported Biotin Forte (Biotin) 3 Mg Tab 3 Mg PO DAILY 09/02/16 Reported Depakote Er (Divalproex Sodium) 500 Mg Tab 1,000 Mg PO HS 30 09/02/16 Reported Tums (Calcium Carbonate) 500 Mg Chew 1 Tab PO BID PRN 02/29/16 Reported [place] Nasal [place] (Saline) 0.65 % Spr 2 [place] CAROL DAILY PRN 02/29/16 Reported Zofran Odt (Ondansetron HCl) 4 Mg Tab 4 Mg SL Q6H PRN 02/29/16 Reported Neurontin (Gabapentin) 100 Mg Cap 500 Mg PO TID 02/29/16 Reported Donepezil Hcl (Donepezil Hydrochloride) 10 Mg Tab 1 Tab PO QAM 10/3/16 Reported Protonix (Pantoprazole Sodium) 40 Mg Tab 40 Mg PO QAM 12/12/15 Reported Galzin (Zinc Acetate (Oral)) 25 Mg Cap 25 Mg PO QAM 07/27/15 Reported Imodium (Loperamide HCl) 2 Mg Cap 2 Mg PO DIRECTED PRN 02/04/15 Reported Oxygen Gas 2 Liters NA HS 05/29/14 Reported Prozac (Fluoxetine HCl) 20 Mg Cap 20 Mg PO QAM 10/13/12 Reported Ativan (Lorazepam) 1 Mg Tab 1 Mg PO BID PRN 02/20/12 Reported Vitamin D 1000 Unit (Cholecalciferol) 1,000 Unit Cap 4,000 Inter.unit PO QAM 01/06/12 Reported Review of Systems Constitutional: + see HPI (ROS unobtainable due to pt condition) Physical Exam Date Time Temp Pulse Resp B/P Pulse Ox O2 Delivery O2 Flow Rate FiO2 09/22/16 11:31 36.7 82 18 129/72 96 09/22/16 08:00 Nasal Cannula 2.0 09/22/16 08:00 36.8 85 24 130/61 97 09/22/16 04:00 100 Nasal Cannula 2.0 09/22/16 03:25 36.9 87 21 138/53 96 Nasal Cannula 2.0 09/21/16 23:59 100 Nasal Cannula 2.0 09/21/16 23:28 36.7 87 20 112/64 97 Room Air 09/21/16 20:00 100 Nasal Cannula 2.0 09/21/16 19:25 37.0 87 20 107/56 100 Room Air 09/21/16 16:00 96 Nasal Cannula 2.0 09/21/16 15:28 37.5 88 20 115/56 100 Nasal Cannula 2.0 09/21/16 12:00 95 Nasal Cannula 2.0 09/21/16 11:47 36.7 93 20 106/66 94 General Appearance: no apparent distress (lethargic, very little response to voice) ENT: normal ENT inspection Respiratory/Chest: no respiratory distress Cardiovascular: regular rate, rhythm Abdomen: non tender, soft Extremities: + pedal edema, + swelling Neurologic/Psych: + pertinent finding (see HPI) Skin: normal color Laboratory Results Last 24 Hours Test 4/27/17 05:00 White Blood Count 25.23 K/uL Red Blood Count 3.05 M/uL Hemoglobin 9.1 g/dL Hematocrit 26.2 % Mean Corpuscular Volume 85.9 fL Mean Corpuscular Hemoglobin 29.8 pg Mean Corpuscular Hemoglobin Concent 34.7 g/dl Platelet Count 184 K/uL Mean Platelet Volume 9.9 fL Neutrophils (%) (Auto) 74.0 % Lymphocytes (%) (Auto) 5.7 % Monocytes (%) (Auto) 6.2 % Eosinophils (%) (Auto) 4.5 % Basophils (%) (Auto) 0.4 % Neutrophils # (Auto) 18.67 K/uL Lymphocytes # (Auto) 1.44 K/uL Monocytes # (Auto) 1.56 K/uL Eosinophils # (Auto) 1.13 K/uL Basophils # (Auto) 0.11 K/uL RDW Standard Deviation 54.1 fL RDW Coefficient of Variation 17.0 % Immature Granulocyte % (Auto) 9.2 % Immature Granulocyte # (Auto) 2.32 K/uL Nucleated RBC Absolute Count (auto) 0.03 K/uL Nucleated Red Blood Cells % 0.1 % Toxic Granulation 1+ Polychromasia 1+ Hypochromasia PRESENT Macrocytosis PRESENT Echinocytes 2+ Sodium Level 136 mmol/L Potassium Level 4.9 mmol/L Chloride Level 107 mmol/L Carbon Dioxide Level 20 mmol/L Anion Gap 9.0 mmol/L Blood Urea Nitrogen 91 mg/dl Creatinine 6.70 mg/dl Est Creatinine Clear Calc Drug Dose 9.2 ml/min Estimated GFR () 6.5 Estimated GFR (Non- 5.6 BUN/Creatinine Ratio 13.6 Random Glucose 94 mg/dl Calcium Level 8.3 mg/dl Phosphorus Level 5.3 mg/dl Total Bilirubin 4.3 mg/dl Direct Bilirubin 3.6 mg/dl Aspartate Amino Transf (AST/SGOT) 35 U/L Alanine Aminotransferase (ALT/SGPT) 32 U/L Alkaline Phosphatase 303 U/L Total Protein 4.9 gm/dl Albumin 1.5 gm/dl Impression Patient is a 70 year old female s/p left hip arthroplasty infected with MRSA, s/ p debridement and poly-exchange with operative cultures growing MRSA as well with elevated LFTs Plan LFTs likely secondary to drug induced liver injury (secondary to Rifampin) US and CT scan show no evidence of biliary obstruction labs to r/o other etiologies ordered (EBV, INR, AMA, ASMA, ABDULAZIZ) Hep panel pending continue antibiotics per ID and trend LFTs will follow I have seen, examined and agree with the plan as outlined by JOSÉ MIGUEL Loza as above. -Exam reveals soft abd -Very concerned that she has drug induced liver injury with the classical picture of increased bilirubin in the setting of near normal AST/ALT and labs have worsened since initiation of abx -Cholestasis of sepsis is also a possibility less likely intrinsic liver issues and or viral infections, but will work up -Strongly recommend that she have Rifampin discontinued -Check INR -No asterixis on exam, but depressed mentation, if secondary to DILI then very poor prognostic sign, would exhaust other causes of depressed mentation
--- NOTE | 2016-09-22 13:49 | DIAGNOSTIC IMAGING REPORT ---
HEAD CT NONCONTRAST CT DOSE: 537.48 mGy.cm HISTORY: Altered mental status. TECHNIQUE: Multiaxial CT images of the head were performed without the use of intravenous contrast. Automated exposure control was utilized for this study. Comparison: None. Findings: Mild mucosal thickening and small fluid levels within the anterior ethmoid air cells and frontal sinuses. Partial opacification the right mastoid air cells. The calvarium and skull base are intact. There is no mass, hematoma, midline shift, acute infarct. White matter hypodensity is nonspecific but suggestive of microvascular ischemic change. The ventricles and sulci are within normal limits. Hypodensity within the left frontal lobe on image 14 is likely artifact. Impression: No acute intracranial abnormality. Mild acute on chronic sinusitis as described above. Electronically signed by: Jv Busby M.D. 09/22/2016 1:48 PM Dictated Date/Time: 09/22/2016 1:42 PM
--- NOTE | 2016-09-22 14:12 | Progress Note ---
Internal Med Progress Note Date of Service: Sep 22, 2016. Provider Documentation: SUBJECTIVE: still lethargic moans some words afebrile hemodynamics stable OBJECTIVE: Vital Signs-as noted below Exam: General-Drowsy ENT-normal hearing Neck-no neck masses Lungs-cta b/l no wheezing or crackles Heart-s1 and s2 heard regular rate and rhythm no murmurs Abdomen-soft bowel sounds present non tender no distension Extremities- s/p left hip I and D drain seen skin erythematous rash in groins. edematous Neuro-Drowsy Lab data as noted below. ASSESSMENT & PLAN: LEFT HIP CELLULITIS and infection from RECENT LEFT EFREM Sepsis from above s/p left EFREM 09/[address] Leavitt, discharged on 09/06 to [facility] for rehab; presented with fever and generalized weakness leukocytosis and febrile s/p Vanco and Zosyn in the ER wound cx mrsa s/p I and D by ortho yesterday and deep cx growing staph currently on iv daptomycin and rifampin ID on board and appreciate inputs hemodynamics stable though patient still drowsy and lethargic added Zosyn until urine cultures available close monitor ALBERT Most likely contrast induced nephropathy, in the setting of infection on kaur catheter for accurate I/O's Fluids as per nephrology may need dialysis Family ok for dialysis ct abd/pelvis unremarkable cr 6.7 today nephrology on board plan for dialysis as soon as tunnel cath placed Encephalopathy metabolic from sepsis and ALBERT will f/u abg close monitor ABNORMAL LFT's possibly due to underlying infection and medications liver ultrasound unremarkable ct scan unremarkable Consulted GI and appreciate inputs Acute blood loss ANEMIA Most likely due to blood loss from recent surgery, no signs of bleeding on iron replacement will f/u labs Elevated INR inr today 4.9 mostly from ongomig infection, medications and arf giving iv vitamin k as plan for tunnel cath tomorrow will f/u labs.. DEMENTIA, BIPOLAR on divalproex, donepezil, fluoxetine GERD PPI LEFT ABDOMINAL FOLD MACERATION mostly topical shweta on Mycogen cream wound care nurse consulted DVT PROPHYLAXIS Discontinued ASA 325mg BID given worsening renal function hep sub q for now CODE STATUS Full code DISPOSITION transferring to ICU for close monitor Family ok for dialysis Vital Signs: Date Time Temp Pulse Resp B/P Pulse Ox O2 Delivery O2 Flow Rate FiO2 09/22/16 15:33 36.3 80 18 120/62 99 Nasal Cannula 2.0 09/22/16 12:00 Nasal Cannula 2.0 09/22/16 11:31 36.7 82 18 129/72 96 09/22/16 08:00 Nasal Cannula 2.0 09/22/16 08:00 36.8 85 24 130/61 97 09/22/16 04:00 100 Nasal Cannula 2.0 09/22/16 03:25 36.9 87 21 138/53 96 Nasal Cannula 2.0 09/21/16 23:59 100 Nasal Cannula 2.0 09/21/16 23:28 36.7 87 20 112/64 97 Room Air 09/21/16 20:00 100 Nasal Cannula 2.0 09/21/16 19:25 37.0 87 20 107/56 100 Room Air Lab Results: Results Past 24 Hours Test 09/22/16 05:00 09/22/16 15:17 09/22/16 17:18 Range/Units White Blood Count 25.23 4.8-10.8 K/uL Red Blood Count 3.05 4.2-5.4 M/uL Hemoglobin 9.1 12.0-16.0 g/dL Hematocrit 26.2 37-47 % Mean Corpuscular Volume 85.9 80-100 fL Mean Corpuscular Hemoglobin 29.8 25-34 pg Mean Corpuscular Hemoglobin Concent 34.7 32-36 g/dl Platelet Count 184 130-400 K/uL Mean Platelet Volume 9.9 7.4-10.4 fL Neutrophils (%) (Auto) 74.0 % Lymphocytes (%) (Auto) 5.7 % Monocytes (%) (Auto) 6.2 % Eosinophils (%) (Auto) 4.5 % Basophils (%) (Auto) 0.4 % Neutrophils # (Auto) 18.67 1.4-6.5 K/uL Lymphocytes # (Auto) 1.44 1.2-3.4 K/uL Monocytes # (Auto) 1.56 0.11-0.59 K/uL Eosinophils # (Auto) 1.13 0-0.5 K/uL Basophils # (Auto) 0.11 0-0.2 K/uL RDW Standard Deviation 54.1 36.4-46.3 fL RDW Coefficient of Variation 17.0 11.5-14.5 % Immature Granulocyte % (Auto) 9.2 % Immature Granulocyte # (Auto) 2.32 0.00-0.02 K/uL Nucleated RBC Absolute Count (auto) 0.03 0-0 K/uL Nucleated Red Blood Cells % 0.1 % Toxic Granulation 1+ Polychromasia 1+ Hypochromasia PRESENT Macrocytosis PRESENT Echinocytes 2+ Sodium Level 136 137 136-145 mmol/L Potassium Level 4.9 4.9 3.5-5.1 mmol/L Chloride Level 107 108 98-107 mmol/L Carbon Dioxide Level 20 20 21-32 mmol/L Anion Gap 9.0 9.0 3-11 mmol/L Blood Urea Nitrogen 91 99 7-18 mg/dl Creatinine 6.70 7.10 0.60-1.20 mg/dl Est Creatinine Clear Calc Drug Dose 9.2 8.7 ml/min Estimated GFR () 6.5 6.1 Estimated GFR (Non- 5.6 5.3 BUN/Creatinine Ratio 13.6 14.0 10-20 Random Glucose 94 97 70-99 mg/dl Calcium Level 8.3 8.4 8.5-10.1 mg/dl Phosphorus Level 5.3 2.5-4.9 mg/dl Total Bilirubin 4.3 0.2-1 mg/dl Direct Bilirubin 3.6 0-0.2 mg/dl Aspartate Amino Transf (AST/SGOT) 35 15-37 U/L Alanine Aminotransferase (ALT/SGPT) 32 12-78 U/L Alkaline Phosphatase 303 45-117 U/L Total Protein 4.9 6.4-8.2 gm/dl Albumin 1.5 3.4-5.0 gm/dl Prothrombin Time 56.5 9.0-12.0 SECONDS Prothromb Time International Ratio 4.9 0.9-1.1 Lactate Dehydrogenase 191 84-246 U/L
--- NOTE | 2016-09-22 15:19 | Surgery Consultation ---
Consultation Date of Service Sep 22, 2016. (Maria E Nguyen, DAVIS) Chief Complaint ALBERT (Maria E Nguyen PA-C) History of Present Illness The patient is a 70 year old female admitted with hip infection, with worsening acute renal failure, seen in consutlation today. Pt very ill and nonverbal presently. HPI obtained from daughter and other providers. (Maria E Nguyen, DAVIS) Vitals Vital Signs Past 12 Hours Date Time Temp Pulse Resp B/P Pulse Ox O2 Delivery O2 Flow Rate FiO2 09/22/16 12:00 Nasal Cannula 2.0 09/22/16 11:31 36.7 82 18 129/72 96 09/22/16 08:00 Nasal Cannula 2.0 09/22/16 08:00 36.8 85 24 130/61 97 09/22/16 04:00 100 Nasal Cannula 2.0 09/22/16 03:25 36.9 87 21 138/53 96 Nasal Cannula 2.0 (Maria E Nguyen, DAVIS) Allergies Coded Allergies: Adhesives (Verified Allergy, Unknown, ADHESIVE TAPE -- BLISTERS, 09/17/16) Cetirizine (Verified Allergy, Unknown, SORES IN MOUTH, HEAD CONGESTION, ) Dicloxacillin (Unverified Allergy, Unknown, MOUTH SORE, 09/17/16) Erythromycin (Verified Allergy, Unknown, SORES IN MOUTH, 09/17/16) Tetracycline (Verified Adverse Reaction, Intermediate, NAUSEA, 09/17/16) Codeine (Verified Adverse Reaction, Mild, NAUSEA, 09/17/16) Doxycycline (Verified Adverse Reaction, Mild, NAUSEA, 09/17/16) Morphine (Verified Adverse Reaction, Unknown, "MAKES ME FEEL LOOPY", ) Home Medications Scheduled Acetaminophen (Tylenol Extra Strength), 1,000 MG PO Q8 Aspirin (Aspirin), 325 MG PO BID B-Complex W/ Folic Acid (B Complex), 1 TAB PO DAILY Biotin (Biotin Forte), 3 MG PO DAILY Cholecalciferol (Vitamin D 1000 Unit), 4,000 INTER.UNIT PO QAM Dicloxacillin Sodium (Dynapen), 500 MG PO QID Divalproex Sodium (Depakote Er), 1,000 MG PO HS Donepezil Hydrochloride (Donepezil Hcl), 1 TAB PO QAM Ferrous Gluconate (Ferrous Gluconate), 324 MG PO BIDM Fluoxetine (Prozac), 20 MG PO QAM Gabapentin (Neurontin), 500 MG PO TID Oxygen (Oxygen), 2 LITERS NA HS Pantoprazole (Protonix), 40 MG PO QAM Zinc Acetate (Oral) (Galzin), 25 MG PO QAM Scheduled PRN Bisacodyl (Dulcolax), 1 SUPP [place] DAILY PRN for IF NO BM FOR DAY 3 Calcium Carbonate (Tums), 1 TAB PO BID PRN for Indigestion Loperamide Hcl (Imodium), 2 MG PO DIRECTED PRN for Diarrhea Lorazepam (Ativan), 1 MG PO BID PRN for Anxiety Magnesium Hydroxide (Milk of Magnesia), 30 ML PO DAILY PRN for IF NO BM FOR 3 DAYS Ondasetron Odt (Zofran Odt), 4 MG SL Q6H PRN for NAUSEA Oxycodone HCl (Oxycodone HCl), 5 MG PO Q4H PRN for Severe Pain Prune Juice (Prune Juice ), 1 DOSE PO DAILY PRN for IF NO BM IN 2 DAYS Saline ([place] Nasal [place]), 2 SPRAY CAROL DAILY PRN for CONGESTION Sennosides-Docusate Sodium (Stool Softener), 1 TAB PO DAILY PRN for Constipation Sodium Phosphates (Enema), 1 EA [place] DAILY PRN for IF NO BM ON DAY 7 Wheat Dextrin (Benefiber), 1 DOSE PO DAILY PRN for Constipation Problem List Medical Problems: (1) Anemia (2) Anxiety (3) Bipolar disorder (4) Bipolar disorder (5) Dementia (6) Dementia (7) Diastolic dysfunction (8) Diastolic dysfunction (9) Gastroesophageal reflux disease (10) GERD (gastroesophageal reflux disease) (11) History of endometrial cancer (12) 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 (14) Nocturnal hypoxemia (15) OCD (obsessive compulsive disorder) (16) OCD (obsessive compulsive disorder) (17) JOO (obstructive sleep apnea) (18) JOO on CPAP (19) Spinal stenosis Surgical Problems: (1) H/O inguinal hernia repair (2) H/O total hip arthroplasty (3) History of carpal tunnel surgery (4) History of carpal tunnel surgery (5) History of cataract surgery (6) History of hysterectomy (7) History of hysterectomy (8) History of vitrectomy (9) Hx of cataract surgery (10) Hx of cholecystectomy (11) S/P arthroscopy of left knee (12) s/p cholecystectomy (13) s/p colonoscopy (14) s/p ectopic (15) s/p repair inguinal hernia (16) Status post total knee replacement, right (17) Status post total right knee replacement (Maria E Nguyen PA-C) Surgical / Medical History Hx Cardiac Surgery: Yes (HEART CATH, NO STENT 1997) Hx Abdominal Surgery: Yes (KAVEH, APPY) Hx Cancer Surgery: Yes ([facility] BSO LYMPH NODE EXC) Hx Thoracic Surgery: No Hx Orthopedic: No (RT TKA, L/R CTR, LEFT HIP) Hx Urinary Tract Surgery: No HX Other Surgery: No Past Medical/Surgical History: Hypertension (Maria E Nguyen, DAVIS) Family History Heart disease MOTHER (Maria E Nguyen PA-C) Heart disease MOTHER (Jv Dawkins M.D.) Social History Smoking Status: Never Smoker Hx Tobacco Use In Past Year?: No Hx Alcohol Use - Type & Amnt: No Hx Substance Use -Type & Amnt: No (Maria E Nguyen, DAVIS) Review of Systems Additional Comments: unable to obtain d//t current illness (Maria E Nguyen PA-C) Physical Exam Constitutional: General Apperance: obese Level of Distress: acutely ill, chronically ill Psychiatric: Mental Status: lethargic Orientation: not oriented to time (unable to obtain) Memory: recent memory abnormal (unable to obtain) Head: normocephalic, atraumatic ENMT: hearing grossly normal Neck: supple, trachea midline Lungs: Auscultation: no wheezing, no rhonchi, decreased breath sounds Cardiovascular: Apical Impulse: not displaced Heart Auscultation: RRR, no rubs, no gallops Peripheral Pulses: Pulses: full and equal, in all extremities except if noted Bruits: none appreciated Carotid Pulse: normal on the left, normal on the right Brachial Pulses: normal on the left, normal on the right Radial Pulse: normal on the left, normal on the right Femoral Pulse: normal on the left, normal on the right Posterior Tibialis Pulse: decreased on the left, decreased on the right Dorsalis Pedis Pulse: decreased on the left, decreased on the right Abdomen: Bowel Sounds: normal Inspection & Palpation: soft, non-distended Musculoskeletal: normal tone Extremities: Upper Right: no cyanosis, no varicosities, edema Upper Left: no cyanosis, no varicosities, edema Lower Right: no cyanosis, no varicosities, edema Lower Left: no cyanosis, no varicosities, edema (Maria E Nguyen, PA-C) Assessment and Plan ASSESSMENT and PLAN: Acute renal failure Pt discussed with Dr Dawkins and Dr Bell, planning for permcath insertion tomorrow morning. Procedure, risks, benefits, and alternatives discussed with pt's daughter, she expresses understanding and agreement. (Maria E Nguyen, PA-C) Patient was seen, examined, and chart reviewed. Agree with exam and treatment plan of the Vascular PA. (Jv Dawkins M.D.)
[2016-09-22 15:48] LABS: PROTHROMBIN TIME (PATIENT) 56.5 SECONDS (9.0-12.0)
[2016-09-22] MEDS ORDERED: DAPTOmycin IV 650 MG in SODIUM CHLORIDE 0.9% 50ML 50 ML IV SCH (16:00)
[2016-09-22 16:26] LABS: INR 4.9 (0.9-1.1)
[2016-09-22 16:40] LABS: CALCIUM 8.4 mg/dl (8.5-10.1); CREATININE 7.1 mg/dl (0.60-1.20); POTASSIUM 4.9 mmol/L (3.5-5.1)
[2016-09-22] MEDS ORDERED: PHYTONADIONE INJ 5 MG in SODIUM CHLORIDE 0.9% 50ML 50 ML IV ONE (17:00)
[2016-09-22] MEDS: ACETAMINOPHEN IV 650 MG in EMPTY BAG 0 ML IV PRN (17:06)
--- NOTE | 2016-09-22 17:49 | PROGRESS NOTE ---
DATE: 09/22/2016 SUBJECTIVE: A 70-year-old female now postoperative day #3 from I\T\D of an infected total hip wound. Also has renal failure, encephalopathy likely metabolic in nature, elevated liver function tests. She is fairly minimally responsive still. Seems a little bit more awake today compared to yesterday. She cannot really respond to questions as far as pain. OBJECTIVE: VITAL SIGNS: Temperature is 36.3. Vital signs stable. GENERAL: Reveals an elderly female. She is lying in bed. She does moan and follows some very simple commands on extreme prodding. MUSCULOSKELETAL: Examination of the left hip wound reveals the wound to be well approximated. She has got diffuse edema and little bit of serous drainage. Nothing too severe. She does have a lot of skin irritation and exfoliation. Her hip is located. She does appear to move her foot up and down with some commands. LABORATORY DATA: Hemoglobin is 9.1. Hematocrit 26.2. White cell count 25.23. INR is 4.9, creatinine elevated at 7.10. ASSESSMENT: A 70-year-old female about 3 weeks out from total hip replacement, complicated by infection with methicillin-resistant Staphylococcus aureus; acute renal failure; metabolic encephalopathy; and elevated liver function tests. This is a very complex and difficult situation. The patient is quite ill. She has become afebrile and infection seems to be under control but multiple other organ systems have been affected for multiple reasons. PLAN: From the orthopedic standpoint, we would like to mobilize her when she is more awake, alert and hopefully she will get to that point. She needs to continue on the daptomycin for MRSA infection and we had rifampin on but GI is recommending we stop that because they think that may be the source of her elevated LFTs. In light of this we will stop the rifampin, but need to stay on the daptomycin for now. May consider restarting this in the future. They did check her INR and is markedly elevated. Therefore, we are going to stop her heparin for now and continue DVT prophylaxis including thigh-high TEDs and SCDs. We certainly do not want her to bleed further into her hip or anywhere else. We will continue to follow this patient daily. She will need 6 weeks of probably IV antibiotics. We may try rifampin again if her liver functions improve. Any orthopedic questions can be directed to me at [phone]. MTDD
--- NOTE | 2016-09-22 18:16 | Critical Care Consultation ---
Critical Care Consultation Date of Consultation: Sep 22, 2016. Attending Physician: Khari Auguste MD Reason for Consultation: Progressive Renal Failure/Coagulopathy/Leukocytosis/MRSA Wound Infection/ Encephalopathy History of Present Illness She was admitted to the hospital with fever/chills/Hip Pain --in setting of recent hip surgery. Wound cultures demonstrated MRSA. Antibiotics started but patient's renal performance has declined in association with worsening MS and persistent leukocytosis. Given the continue clinical decline and requirement for dialysis a decision was made to monitor and treat in the ICU setting. Noteworthy labs include elevated WBCs and PT. Gap of 9 with bicarb of 20. Other considerations include a complex med profile which includes, Prozac, Neurontin, Depakote, Aricept, Ultram. Past Medical/Surgical History Dementia/Bipolar/OCD HTN heart with diastolic dysfunction Uterine cancer KAVEH Left EFREM Morbid Obesity Family History Heart disease MOTHER Social History Smoking Status: Never Smoker Alcohol Use: none Drug Use: none Marital Status: single Allergies Coded Allergies: Adhesives (Verified Allergy, Unknown, ADHESIVE TAPE -- BLISTERS, 09/17/16) Cetirizine (Verified Allergy, Unknown, SORES IN MOUTH, HEAD CONGESTION, ) Dicloxacillin (Unverified Allergy, Unknown, MOUTH SORE, 09/17/16) Erythromycin (Verified Allergy, Unknown, SORES IN MOUTH, 09/17/16) Tetracycline (Verified Adverse Reaction, Intermediate, NAUSEA, 09/17/16) Codeine (Verified Adverse Reaction, Mild, NAUSEA, 09/17/16) Doxycycline (Verified Adverse Reaction, Mild, NAUSEA, 09/17/16) Morphine (Verified Adverse Reaction, Unknown, "MAKES ME FEEL LOOPY", ) Home Medications Scheduled Acetaminophen (Tylenol Extra Strength), 1,000 MG PO Q8 Aspirin (Aspirin), 325 MG PO BID B-Complex W/ Folic Acid (B Complex), 1 TAB PO DAILY Biotin (Biotin Forte), 3 MG PO DAILY Cholecalciferol (Vitamin D 1000 Unit), 4,000 INTER.UNIT PO QAM Dicloxacillin Sodium (Dynapen), 500 MG PO QID Divalproex Sodium (Depakote Er), 1,000 MG PO HS Donepezil Hydrochloride (Donepezil Hcl), 1 TAB PO QAM Ferrous Gluconate (Ferrous Gluconate), 324 MG PO BIDM Fluoxetine (Prozac), 20 MG PO QAM Gabapentin (Neurontin), 500 MG PO TID Oxygen (Oxygen), 2 LITERS NA HS Pantoprazole (Protonix), 40 MG PO QAM Zinc Acetate (Oral) (Galzin), 25 MG PO QAM Scheduled PRN Bisacodyl (Dulcolax), 1 SUPP CA DAILY PRN for IF NO BM FOR DAY 3 Calcium Carbonate (Tums), 1 TAB PO BID PRN for Indigestion Loperamide Hcl (Imodium), 2 MG PO DIRECTED PRN for Diarrhea Lorazepam (Ativan), 1 MG PO BID PRN for Anxiety Magnesium Hydroxide (Milk of Magnesia), 30 ML PO DAILY PRN for IF NO BM FOR 3 DAYS Ondasetron Odt (Zofran Odt), 4 MG SL Q6H PRN for NAUSEA Oxycodone HCl (Oxycodone HCl), 5 MG PO Q4H PRN for Severe Pain Prune Juice (Prune Juice ), 1 DOSE PO DAILY PRN for IF NO BM IN 2 DAYS Saline ([place] Nasal Shepherd), 2 SPRAY CAROL DAILY PRN for CONGESTION Sennosides-Docusate Sodium (Stool Softener), 1 TAB PO DAILY PRN for Constipation Sodium Phosphates (Enema), 1 EA CA DAILY PRN for IF NO BM ON DAY 7 Wheat Dextrin (Benefiber), 1 DOSE PO DAILY PRN for Constipation Current Inpatient Medications Current Inpatient Medications Medications (Trade) Dose Ordered Sig/Quan Route Start Time Stop Time Status Last Admin Dose Admin Ondansetron HCl (Zofran Inj) 4 mg Q6H PRN IV 09/17/16 10:30 10/17/16 10:29 Cholecalciferol (Vitamin D Tab) 4,000 inter.unit QAM PO 09/18/16 09:00 10/18/16 08:59 09/21/16 08:47 4,000 INTER.UNIT Divalproex Sodium (Depakote Extended Rel Tab) 1,000 mg HS PO 09/17/16 21:00 10/17/16 20:59 09/21/16 21:02 1,000 MG Fluoxetine HCl (Prozac Cap) 20 mg QAM PO 09/18/16 09:00 5/23/17 08:59 09/21/16 08:47 20 MG Pantoprazole Sodium (Protonix Tab) 40 mg QAM PO 09/18/16 09:00 10/18/16 08:59 09/21/16 08:46 40 MG Senna/Docusate Sodium (Senokot S Tab) 1 tab DAILY PRN PO 09/17/16 10:45 10/17/16 10:44 Vitamin B Complex (Vitamin B Complex) 1 tab DAILY PO 09/18/16 09:00 10/18/16 08:59 09/21/16 08:47 1 TAB Donepezil HCl (Aricept Tab) 10 mg QAM PO 09/18/16 09:00 10/18/16 08:59 09/21/16 08:47 10 MG Miscellaneous Information (Order Awaiting Action) 1 ea QS N/A 09/17/16 16:00 10/17/16 15:59 Nystatin/ Triamcinolone Acetonide (Mycogen II Crm) 1 appln BID EXT 09/17/16 11:15 10/17/16 11:14 09/22/16 10:03 1 APPLN Acetaminophen (Tylenol Tab) 650 mg Q6H PRN PO 09/18/16 08:15 10/18/16 08:14 09/20/16 02:00 650 MG Gabapentin (Neurontin Cap) 200 mg TID PO 09/18/16 14:00 10/18/16 13:59 09/21/16 21:01 200 MG Oxycodone HCl (Roxicodone Immediate Rel Tab) 5 mg Q6 PRN PO 09/18/16 18:00 10/02/16 17:59 09/18/16 19:39 5 MG Tramadol HCl (Ultram Tab) 100 mg Q6 PRN PO 09/18/16 15:15 10/18/16 15:14 09/18/16 23:33 100 MG Daptomycin (Consult) 1 ea UD PRN N/A 09/19/16 08:30 10/19/16 08:29 Magnesium Hydroxide (Milk Of Magnesia Susp) 30 ml Q6H PRN PO 09/19/16 17:30 10/19/16 17:29 Bisacodyl (Dulcolax Supp) 10 mg DAILY PRN CA 09/19/16 17:30 10/19/16 17:29 Docusate Sodium (coLACE CAP) 100 mg BID PO 09/19/16 21:00 10/19/16 20:59 09/21/16 21:02 100 MG Ferrous Gluconate (Ferrous Gluconate Tab) 324 mg TIDM PO 09/19/16 17:45 10/19/16 17:44 09/21/16 08:47 324 MG Silver Sulfadiazine (Silvadene 1% Crm 50GM Jar) 1 appln BID PRN EXT 09/19/16 17:30 10/19/16 17:29 Miconazole Nitrate (Desenex Powder) 1 appln PRN PRN EXT 09/20/16 15:15 10/20/16 15:14 09/20/16 20:55 1 APPLN Enteral Nutritional Formula (Boost Breeze Nutritional Drink) 1 box BID17 PO 09/21/16 17:00 10/21/16 16:59 Piperacillin Sod/ Tazobactam Sod 1 ea 1 ea UD PRN N/A 09/22/16 09:15 10/22/16 09:14 Piperacillin Sod/ Tazobactam Sod 4.5 gm/Dextrose 120 ml @ 30 mls/hr Q12H IV 09/22/16 18:00 09/24/16 17:59 Daptomycin 650 mg/ Sodium Chloride 63 ml @ 120 mls/hr Q48H IV 09/23/16 16:00 11/02/16 08:59 Acetaminophen/ Empty Bag (Ofirmev Iv/ Empty Iv Bag 100ml) 65 ml @ 260 mls/hr Q6H PRN IV 09/22/16 16:30 10/22/16 16:29 09/22/16 17:06 260 MLS/HR Review of Systems The review was difficult given her encephalopathy and inability to give detailed answers Constitutional: + weakness Cardiovascular: + edema Musculoskeletal: + joint pain Neurologic: + memory loss Physical Exam Date Time Temp Pulse Resp B/P Pulse Ox O2 Delivery O2 Flow Rate FiO2 09/22/16 15:33 36.3 80 18 120/62 99 Nasal Cannula 2.0 09/22/16 12:00 Nasal Cannula 2.0 09/22/16 11:31 36.7 82 18 129/72 96 09/22/16 08:00 Nasal Cannula 2.0 09/22/16 08:00 36.8 85 24 130/61 97 4/27/17 04:00 100 Nasal Cannula 2.0 09/22/16 03:25 36.9 87 21 138/53 96 Nasal Cannula 2.0 09/21/16 23:59 100 Nasal Cannula 2.0 09/21/16 23:28 36.7 87 20 112/64 97 Room Air 09/21/16 20:00 100 Nasal Cannula 2.0 09/21/16 19:25 37.0 87 20 107/56 100 Room Air She is total body overloaded and somewhat intravascularly dry. General edema is substantial General Appearance: moderate distress, obese Head: normocephalic Eyes: PERRLA ENT: other (tongue is dry) Neck: no tenderness Respiratory: other (diminished) Cardiovasular: regular rate/rhythm, no JVD, other (diffusely edematous) Abdomen: other (bowel sounds ok. Obese. Generous panus) Back: other (some skin breakdown noted in the folds) Upper Extremities: edema Lower Extremities: edema Neuro: lethargic Psychiatric: other (encephalopathic--groaning with any movement/manipulation) Laboratory Results Last 24 Hours Test 09/22/16 05:00 09/22/16 15:17 09/22/16 17:55 White Blood Count 25.23 K/uL Red Blood Count 3.05 M/uL Hemoglobin 9.1 g/dL Hematocrit 26.2 % Mean Corpuscular Volume 85.9 fL Mean Corpuscular Hemoglobin 29.8 pg Mean Corpuscular Hemoglobin Concent 34.7 g/dl Platelet Count 184 K/uL Mean Platelet Volume 9.9 fL Neutrophils (%) (Auto) 74.0 % Lymphocytes (%) (Auto) 5.7 % Monocytes (%) (Auto) 6.2 % Eosinophils (%) (Auto) 4.5 % Basophils (%) (Auto) 0.4 % Neutrophils # (Auto) 18.67 K/uL Lymphocytes # (Auto) 1.44 K/uL Monocytes # (Auto) 1.56 K/uL Eosinophils # (Auto) 1.13 K/uL Basophils # (Auto) 0.11 K/uL RDW Standard Deviation 54.1 fL RDW Coefficient of Variation 17.0 % Immature Granulocyte % (Auto) 9.2 % Immature Granulocyte # (Auto) 2.32 K/uL Nucleated RBC Absolute Count (auto) 0.03 K/uL Nucleated Red Blood Cells % 0.1 % Toxic Granulation 1+ Polychromasia 1+ Hypochromasia PRESENT Macrocytosis PRESENT Echinocytes 2+ Sodium Level 136 mmol/L 137 mmol/L Potassium Level 4.9 mmol/L 4.9 mmol/L Chloride Level 107 mmol/L 108 mmol/L Carbon Dioxide Level 20 mmol/L 20 mmol/L Anion Gap 9.0 mmol/L 9.0 mmol/L Blood Urea Nitrogen 91 mg/dl 99 mg/dl Creatinine 6.70 mg/dl 7.10 mg/dl Est Creatinine Clear Calc Drug Dose 9.2 ml/min 8.7 ml/min Estimated GFR () 6.5 6.1 Estimated GFR (Non- 5.6 5.3 BUN/Creatinine Ratio 13.6 14.0 Random Glucose 94 mg/dl 97 mg/dl Calcium Level 8.3 mg/dl 8.4 mg/dl Phosphorus Level 5.3 mg/dl Total Bilirubin 4.3 mg/dl Direct Bilirubin 3.6 mg/dl Aspartate Amino Transf (AST/SGOT) 35 U/L Alanine Aminotransferase (ALT/SGPT) 32 U/L Alkaline Phosphatase 303 U/L Total Protein 4.9 gm/dl Albumin 1.5 gm/dl Prothrombin Time 56.5 SECONDS Prothromb Time International Ratio 4.9 Lactate Dehydrogenase 191 U/L Diagnostic Results All images reviewed. Assessment & Plan Worsening renal failure and encephalopathy in the setting of MRSA infection. Complex neuropsychiatric history and Rx profile. Underlying HTN heart disease and diastolic dysfunction. Worsening coagulopathy and leukocytosis. 1. Sepsis--coverage and support. Some volume with dialysis may be helpful. B/ P stable. 2. Neuro--will moderate meds and support, check level of Valproic Acid. 3. Renal--plan for dialysis today--and as indicated by senior reliability engineer 4. Cardio--will track closely. Dialysis and volume as required. 5. Heme--consumption probably secondary to infection/renal failure--Vit K given. May require additional supportive measures 6. ID--appropriate antibiotics in place--orthopedics involved. 7. Pulmonary--toilette and support. Airway control is adequate at this point but requires monitoring. She has a metabolic acidosis with inadequate respiratory compensation at this point. I discussed this with nephrology. They would like to correct the metabolic acidosis first if possible. Follow-up ABG and lytes will be required. She may ultimately require intubation. ICU oversight and monitoring required.
[2016-09-22 18:17] LABS: ARTERIAL BLOOD GAS BASE EXCESS -9.2 mEq/L (-9-1.8); ARTERIAL BLOOD GAS HCO3 17 mmol/L (19-24); ARTERIAL BLOOD GAS PO2 93 mm/Hg (80-95); ARTERIAL BLOOD GAS pH 7.28 (7.35-7.45)
[2016-09-22 18:21] LABS: ALLEN TEST POS (POS)
[2016-09-22 19:19] LABS: INR 2.5 (0.9-1.1); PARTIAL THROMBOPLASTIN RATIO 1.6; PROTHROMBIN TIME (PATIENT) 27.6 SECONDS (9.0-12.0)
--- NOTE | 2016-09-22 19:40 | [facility] Post Operative Brief Note ---
Immediate Operative Summary Operative Date Sep 22, 2016. Pre-Operative Diagnosis Acute renal failure Post-Operative Diagnosis Same as preoperative diagnosis Procedure(s) Performed Insertion of right femoral temporary non tunneled dialysis catheter Surgeon johnny Straw Baler Surgeon(s) none Estimated Blood Loss 0 Findings aspirated and flushed easily Specimens none Complication(s) None Disposition Surgical ICU
--- NOTE | 2016-09-22 19:55 | Infectious Disease Progress Nt ---
Progress Note Date of Service Sep 22, 2016. Subjective Pt evaluation today including: conversation w/ patient, physical exam, chart review, lab review, review of studies, conversation w/ framing consultant, review of inpatient medication list Patient now status post placement of femoral dialysis catheter. Waiting starting dialysis. Remains lethargic. Offers no new specific complaints. All Other Systems: Reviewed and Negative Medications Current Inpatient Medications Medications (Trade) Dose Ordered Sig/Quan Route Start Time Stop Time Status Last Admin Dose Admin Cholecalciferol (Vitamin D Tab) 4,000 inter.unit QAM PO 09/18/16 09:00 10/18/16 08:59 09/21/16 08:47 4,000 INTER.UNIT Pantoprazole Sodium (Protonix Tab) 40 mg QAM PO 09/18/16 09:00 10/18/16 08:59 09/21/16 08:46 40 MG Vitamin B Complex (Vitamin B Complex) 1 tab DAILY PO 09/18/16 09:00 10/18/16 08:59 09/21/16 08:47 1 TAB Miscellaneous Information (Order Awaiting Action) 1 ea QS N/A 09/17/16 16:00 10/17/16 15:59 Nystatin/ Triamcinolone Acetonide (Mycogen II Crm) 1 appln BID EXT 09/17/16 11:15 10/17/16 11:14 09/22/16 10:03 1 APPLN Acetaminophen (Tylenol Tab) 650 mg Q6H PRN PO 09/18/16 08:15 10/18/16 08:14 09/20/16 02:00 650 MG Daptomycin (Consult) 1 ea UD PRN N/A 09/19/16 08:30 10/19/16 08:29 Miconazole Nitrate (Desenex Powder) 1 appln PRN PRN EXT 09/20/16 15:15 10/20/16 15:14 09/20/16 20:55 1 APPLN Enteral Nutritional Formula (Boost Breeze Nutritional Drink) 1 box BID17 PO 09/21/16 17:00 10/21/16 16:59 Piperacillin Sod/ Tazobactam Sod 1 ea 1 ea UD PRN N/A 09/22/16 09:15 10/22/16 09:14 Piperacillin Sod/ Tazobactam Sod 4.5 gm/Dextrose 120 ml @ 30 mls/hr Q12H IV 09/22/16 18:00 09/24/16 17:59 Daptomycin 650 mg/ Sodium Chloride 63 ml @ 120 mls/hr Q48H IV 09/23/16 16:00 11/02/16 08:59 Acetaminophen/ Empty Bag (Ofirmev Iv/ Empty Iv Bag 100ml) 65 ml @ 260 mls/hr Q6H PRN IV 09/22/16 16:30 10/22/16 16:29 09/22/16 17:06 260 MLS/HR Objective Vital Signs Date Time Temp Pulse Resp B/P Pulse Ox O2 Delivery O2 Flow Rate FiO2 09/22/16 18:18 76 19 146/46 98 Nasal Cannula 2.0 09/22/16 16:00 Nasal Cannula 2.0 09/22/16 15:33 36.3 80 18 120/62 99 Nasal Cannula 2.0 09/22/16 12:00 Nasal Cannula 2.0 09/22/16 11:31 36.7 82 18 129/72 96 09/22/16 08:00 Nasal Cannula 2.0 09/22/16 08:00 36.8 85 24 130/61 97 09/22/16 04:00 100 Nasal Cannula 2.0 09/22/16 03:25 36.9 87 21 138/53 96 Nasal Cannula 2.0 09/21/16 23:59 100 Nasal Cannula 2.0 09/21/16 23:28 36.7 87 20 112/64 97 Room Air 09/21/16 20:00 100 Nasal Cannula 2.0 Physical Exam General Appearance: WD/WN, no apparent distress Eyes: normal inspection, sclerae normal ENT: pharynx normal, + pertinent finding (dry MMs) Neck: supple, no adenopathy, trachea midline Respiratory/Chest: chest non-tender, lungs clear, normal breath sounds, no respiratory distress Cardiovascular: regular rate, rhythm, no gallop, no murmur Abdomen: normal bowel sounds, non tender, soft, no organomegaly Extremities: non-tender, no calf tenderness, + pertinent finding (drains left hip) Neurologic/Psychiatric: oriented x 3, + pertinent finding (drowsy) Skin: normal color, warm/dry, no rash Lymphatic: no adenopathy Laboratory Results Last 24 Hours Test 09/22/16 05:00 4/27/17 15:17 09/22/16 17:55 09/22/16 19:00 White Blood Count 25.23 K/uL Red Blood Count 3.05 M/uL Hemoglobin 9.1 g/dL Hematocrit 26.2 % Mean Corpuscular Volume 85.9 fL Mean Corpuscular Hemoglobin 29.8 pg Mean Corpuscular Hemoglobin Concent 34.7 g/dl Platelet Count 184 K/uL Mean Platelet Volume 9.9 fL Neutrophils (%) (Auto) 74.0 % Lymphocytes (%) (Auto) 5.7 % Monocytes (%) (Auto) 6.2 % Eosinophils (%) (Auto) 4.5 % Basophils (%) (Auto) 0.4 % Neutrophils # (Auto) 18.67 K/uL Lymphocytes # (Auto) 1.44 K/uL Monocytes # (Auto) 1.56 K/uL Eosinophils # (Auto) 1.13 K/uL Basophils # (Auto) 0.11 K/uL RDW Standard Deviation 54.1 fL RDW Coefficient of Variation 17.0 % Immature Granulocyte % (Auto) 9.2 % Immature Granulocyte # (Auto) 2.32 K/uL Nucleated RBC Absolute Count (auto) 0.03 K/uL Nucleated Red Blood Cells % 0.1 % Toxic Granulation 1+ Polychromasia 1+ Hypochromasia PRESENT Macrocytosis PRESENT Echinocytes 2+ Sodium Level 136 mmol/L 137 mmol/L Potassium Level 4.9 mmol/L 4.9 mmol/L Chloride Level 107 mmol/L 108 mmol/L Carbon Dioxide Level 20 mmol/L 20 mmol/L Anion Gap 9.0 mmol/L 9.0 mmol/L Blood Urea Nitrogen 91 mg/dl 99 mg/dl Creatinine 6.70 mg/dl 7.10 mg/dl Est Creatinine Clear Calc Drug Dose 9.2 ml/min 8.7 ml/min Estimated GFR () 6.5 6.1 Estimated GFR (Non- 5.6 5.3 BUN/Creatinine Ratio 13.6 14.0 Random Glucose 94 mg/dl 97 mg/dl Calcium Level 8.3 mg/dl 8.4 mg/dl Phosphorus Level 5.3 mg/dl Total Bilirubin 4.3 mg/dl Direct Bilirubin 3.6 mg/dl Aspartate Amino Transf (AST/SGOT) 35 U/L Alanine Aminotransferase (ALT/SGPT) 32 U/L Alkaline Phosphatase 303 U/L Total Protein 4.9 gm/dl Albumin 1.5 gm/dl Prothrombin Time 56.5 SECONDS 27.6 SECONDS Prothromb Time International Ratio 4.9 2.5 Lactate Dehydrogenase 191 U/L Arterial Blood pH 7.28 Arterial Blood Partial Pressure CO2 37 mmHg Arterial Blood Partial Pressure O2 93 mm/Hg Arterial Blood HCO3 17 mmol/L Arterial Blood Oxygen Saturation 95.0 % Arterial Blood Base Excess -9.2 mEq/L Arterial Blood Gas Delivery 2 l Piero Test POS Activated Partial Thromboplast Time 41.8 SECONDS Partial Thromboplastin Ratio 1.6 Valproic Acid (Depakene) Level 42 mcg/ml Assessment and Plan Probable deep infection of left hip following arthroplasty with superficial culture growing MRSA. Now s/p debridement and poly-exchange with operative cultures growing MRSA as well. Daptomycin appropriate, rifampin held because of elevated LFTs. Discussed with all involved.
--- NOTE | 2016-09-22 21:19 | Dialysis Progress Note ---
Nephrology Dialysis Note Date of Service: Sep 22, 2016. Subjective 70 yo female with oliguric atn with uremic symptoms and third spacing of fluid. +wound cultures, elevated inr. +leukocytosis. elevated liver enzymes. lethargic. temporary dialysis catheter placed femoral region. running well. bp is stable. Objective Date Time Temp Pulse Resp B/P Pulse Ox O2 Delivery O2 Flow Rate FiO2 09/22/16 20:45 79 125/49 09/22/16 20:30 79 135/49 09/22/16 20:20 36.4 77 120/49 09/22/16 18:18 76 19 146/46 98 Nasal Cannula 2.0 09/22/16 16:00 Nasal Cannula 2.0 09/22/16 15:33 36.3 80 18 120/62 99 Nasal Cannula 2.0 09/22/16 12:00 Nasal Cannula 2.0 09/22/16 11:31 36.7 82 18 129/72 96 09/22/16 08:00 Nasal Cannula 2.0 09/22/16 08:00 36.8 85 24 130/61 97 09/22/16 04:00 100 Nasal Cannula 2.0 09/22/16 03:25 36.9 87 21 138/53 96 Nasal Cannula 2.0 09/21/16 23:59 100 Nasal Cannula 2.0 09/21/16 23:28 36.7 87 20 112/64 97 Room Air Physical Exam: General-lethargic Eyes-no scleral icterus ENT-mmm Neck-supple Lungs-cta anteriorly Heart-regular Abdomen-bs+ s/nt Extremities-+2 edema Neuro-lethargic Current Inpatient Medications Medications (Trade) Dose Ordered Sig/Quan Route Start Time Stop Time Status Last Admin Dose Admin Cholecalciferol (Vitamin D Tab) 4,000 inter.unit QAM PO 09/18/16 09:00 10/18/16 08:59 09/21/16 08:47 4,000 INTER.UNIT Pantoprazole Sodium (Protonix Tab) 40 mg QAM PO 09/18/16 09:00 10/18/16 08:59 09/21/16 08:46 40 MG Vitamin B Complex (Vitamin B Complex) 1 tab DAILY PO 09/18/16 09:00 10/18/16 08:59 09/21/16 08:47 1 TAB Miscellaneous Information (Order Awaiting Action) 1 ea QS N/A 09/17/16 16:00 10/17/16 15:59 Nystatin/ Triamcinolone Acetonide (Mycogen II Crm) 1 appln BID EXT 09/17/16 11:15 10/17/16 11:14 09/22/16 10:03 1 APPLN Acetaminophen (Tylenol Tab) 650 mg Q6H PRN PO 09/18/16 08:15 10/18/16 08:14 09/20/16 02:00 650 MG Daptomycin (Consult) 1 ea UD PRN N/A 09/19/16 08:30 10/19/16 08:29 Miconazole Nitrate (Desenex Powder) 1 appln PRN PRN EXT 09/20/16 15:15 10/20/16 15:14 09/20/16 20:55 1 APPLN Enteral Nutritional Formula (Boost Breeze Nutritional Drink) 1 box [id number] PO 09/21/16 17:00 10/21/16 16:59 Piperacillin Sod/ Tazobactam Sod 1 ea 1 ea UD PRN N/A 09/22/16 09:15 10/22/16 09:14 Piperacillin Sod/ Tazobactam Sod 4.5 gm/Dextrose 120 ml @ 30 mls/hr Q12H IV 09/22/16 18:00 09/24/16 17:59 Daptomycin 650 mg/ Sodium Chloride 63 ml @ 120 mls/hr Q48H IV 09/23/16 16:00 11/02/16 08:59 Acetaminophen/ Empty Bag (Ofirmev Iv/ Empty Iv Bag 100ml) 65 ml @ 260 mls/hr Q6H PRN IV 09/22/16 16:30 10/22/16 16:29 09/22/16 17:06 260 MLS/HR Last 24 Hours Test 09/22/16 05:00 09/22/16 15:17 09/22/16 17:55 09/22/16 19:00 White Blood Count 25.23 K/uL Red Blood Count 3.05 M/uL Hemoglobin 9.1 g/dL Hematocrit 26.2 % Mean Corpuscular Volume 85.9 fL Mean Corpuscular Hemoglobin 29.8 pg Mean Corpuscular Hemoglobin Concent 34.7 g/dl Platelet Count 184 K/uL Mean Platelet Volume 9.9 fL Neutrophils (%) (Auto) 74.0 % Lymphocytes (%) (Auto) 5.7 % Monocytes (%) (Auto) 6.2 % Eosinophils (%) (Auto) 4.5 % Basophils (%) (Auto) 0.4 % Neutrophils # (Auto) 18.67 K/uL Lymphocytes # (Auto) 1.44 K/uL Monocytes # (Auto) 1.56 K/uL Eosinophils # (Auto) 1.13 K/uL Basophils # (Auto) 0.11 K/uL RDW Standard Deviation 54.1 fL RDW Coefficient of Variation 17.0 % Immature Granulocyte % (Auto) 9.2 % Immature Granulocyte # (Auto) 2.32 K/uL Nucleated RBC Absolute Count (auto) 0.03 K/uL Nucleated Red Blood Cells % 0.1 % Toxic Granulation 1+ Polychromasia 1+ Hypochromasia PRESENT Macrocytosis PRESENT Echinocytes 2+ Sodium Level 136 mmol/L 137 mmol/L Potassium Level 4.9 mmol/L 4.9 mmol/L Chloride Level 107 mmol/L 108 mmol/L Carbon Dioxide Level 20 mmol/L 20 mmol/L Anion Gap 9.0 mmol/L 9.0 mmol/L Blood Urea Nitrogen 91 mg/dl 99 mg/dl Creatinine 6.70 mg/dl 7.10 mg/dl Est Creatinine Clear Calc Drug Dose 9.2 ml/min 8.7 ml/min Estimated GFR () 6.5 6.1 Estimated GFR (Non- 5.6 5.3 BUN/Creatinine Ratio 13.6 14.0 Random Glucose 94 mg/dl 97 mg/dl Calcium Level 8.3 mg/dl 8.4 mg/dl Phosphorus Level 5.3 mg/dl Total Bilirubin 4.3 mg/dl Direct Bilirubin 3.6 mg/dl Aspartate Amino Transf (AST/SGOT) 35 U/L Alanine Aminotransferase (ALT/SGPT) 32 U/L Alkaline Phosphatase 303 U/L Total Protein 4.9 gm/dl Albumin 1.5 gm/dl Prothrombin Time 56.5 SECONDS 27.6 SECONDS Prothromb Time International Ratio 4.9 2.5 Lactate Dehydrogenase 191 U/L Arterial Blood pH 7.28 Arterial Blood Partial Pressure CO2 37 mmHg Arterial Blood Partial Pressure O2 93 mm/Hg Arterial Blood HCO3 17 mmol/L Arterial Blood Oxygen Saturation 95.0 % Arterial Blood Base Excess -9.2 mEq/L Arterial Blood Gas Delivery 2 l Pireo Test POS Activated Partial Thromboplast Time 41.8 SECONDS Partial Thromboplastin Ratio 1.6 Valproic Acid (Depakene) Level 42 mcg/ml Test 09/22/16 19:52 Assessment & Plan [id number]-temporary dialysis catheter working well. 2 hour treatment, bicarb of 40, 2k bath, no fluid removal. spoke to family and answered their questions. will do dialysis again in the morning. hopeful, she will become more responsive. however, if her mental status continues to worsen, she may need to be intubated for airway protection. primary hospitalist, ortho, ID, myself, critical care all working together on this complicated patient with multiple confounding factors. seen on dialysis. will try to remove fluid tomorrow on dialysis.
[2016-09-22 23:08] LABS: ISTAT ALLEN TEST Pass; ISTAT ARTERIAL BLOOD GAS HCO3 24 meq/L (19-24); ISTAT ARTERIAL BLOOD GAS PCO2 40 mmHg (35-46); ISTAT ARTERIAL BLOOD GAS PO2 92 mmHg (80-95); ISTAT ARTERIAL BLOOD GAS pH 7.39 (7.35-7.45); ISTAT CARBON DIOXIDE 26 mEq/l (24-31); ISTAT DELIVERY SYSTEM Cannula; ISTAT SITE R Radial
--- NOTE | 2016-09-22 23:28 | OPERATIVE REPORT ---
DATE OF OPERATION: 09/22/2016 PREOPERATIVE DIAGNOSIS: Acute renal failure. POSTOPERATIVE DIAGNOSIS: Same. PROCEDURE: Insertion of right femoral vein temporary non-tunneled dialysis catheter. SURGEON: Dr. Zurita. ANESTHETIC: Local. PROCEDURE INDICATIONS: The patient is a 70-year-old female who was in acute renal failure post-surgical procedure for explant of an infected prosthesis. Temporary catheter was recommended. The family understood the risks, options and benefits, and agreed to undergo this procedure. The patient was placed in supine position. The right groin was prepped and draped in a sterile manner. Local anesthetic was administered. The vein was hit with a small needle. The larger needle was then inserted. Dark blood was aspirated. The wire was then passed centrally. The puncture site was then slightly nicked with the scalpel and the catheter inserted. Both ports aspirated and flushed easily. They were flushed with saline. The catheter was sutured in place with nylon sutures and sterile dressings were applied. The patient tolerated the procedure well. I attest to the content of the Intraoperative Record and any orders documented therein. Any exceptio ns are noted below.
[2016-09-23] VITALS (28 sets, daily range): BP systolic 104–147; BP diastolic 45–84; PULSE 72–91; TEMP 36.5–37; O2SAT 92–99
[2016-09-23] MEDS: PIPERACILL/TAZOBAC IV 4.5 GM in DEXTROSE 5% 100ML IV SCH ×2 (00:10→13:02)
[2016-09-23 01:14] LABS: FIBRINOGEN* 336 mg/dl (184-400)
[2016-09-23 06:04] LABS: HEMATOCRIT 25.3 % (37-47); MEAN CELL VOLUME 83.8 fL (80-100); MEAN CORPUSCULAR HEMOGLOBIN 29.1 pg (25-34); MEAN CORPUSCULAR HGB CONC 34.8 g/dl (32-36); MEAN PLATELET VOLUME 10.2 fL (7.4-10.4); PLATELET COUNT 127 K/uL (130-400); RED BLOOD COUNT 3.02 M/uL (4.2-5.4); WHITE BLOOD COUNT 21.62 K/uL (4.8-10.8)
[2016-09-23 06:54] LABS: ALB/GLOB RATIO 0.4 (0.9-2); ALKALINE PHOSPHATASE 253 U/L (45-117); ALT/SGPT 29 U/L (12-78); AST/SGOT 31 U/L (15-37); BLOOD UREA NITROGEN 78 mg/dl (7-18); BUN/CREATININE RATIO 14.5 (10-20); CALCIUM 7.8 mg/dl (8.5-10.1); CARBON DIOXIDE 26 mmol/L (21-32); CHLORIDE 104 mmol/L (98-107); GLUCOSE 97 mg/dl (70-99); MAGNESIUM 2.6 mg/dl (1.8-2.4); PHOSPHORUS 4.1 mg/dl (2.5-4.9); POTASSIUM 4.1 mmol/L (3.5-5.1); SODIUM 138 mmol/L (136-145)
[2016-09-23 07:12] LABS: INR 1.1 (0.9-1.1); PROTHROMBIN TIME (PATIENT) 12.2 SECONDS (9.0-12.0)
--- NOTE | 2016-09-23 07:40 | Nephrology Progress Note ---
Nephrology Progress Note Date of Service: Sep 23, 2016. Subjective 70 yo female with oliguric atn with uremic symptoms and third spacing of fluid. underwent 2 hour treatment last night and family reported after dialysis, she was more awake and making them laugh. this morning, pt is very sleepy although had an exhausting night. Objective Date Time Temp Pulse Resp B/P Pulse Ox O2 Delivery O2 Flow Rate FiO2 09/23/16 06:00 72 17 117/49 97 Nasal Cannula 2.0 09/23/16 04:00 96 Nasal Cannula 2.0 09/23/16 04:00 36.7 76 16 121/55 96 Nasal Cannula 2.0 09/23/16 02:00 72 17 126/58 97 Nasal Cannula 2.0 09/23/16 00:01 36.7 76 17 115/63 99 Nasal Cannula 2.0 09/23/16 00:01 99 Nasal Cannula 2.0 09/22/16 22:41 36.5 76 122/48 09/22/16 22:15 78 128/55 09/22/16 22:00 78 17 117/53 99 Nasal Cannula 2.0 09/22/16 22:00 79 117/53 09/22/16 21:45 79 130/52 09/22/16 21:30 80 127/53 09/22/16 21:15 77 125/59 09/22/16 21:00 78 112/48 09/22/16 20:45 79 125/49 09/22/16 20:30 79 135/49 09/22/16 20:20 36.4 77 120/49 09/22/16 20:00 36.6 80 20 126/44 98 Nasal Cannula 2.0 09/22/16 20:00 98 Nasal Cannula 2.0 09/22/16 18:18 76 19 146/46 98 Nasal Cannula 2.0 09/22/16 16:00 Nasal Cannula 2.0 09/22/16 15:33 36.3 80 18 120/62 99 Nasal Cannula 2.0 09/22/16 12:00 Nasal Cannula 2.0 09/22/16 11:31 36.7 82 18 129/72 96 09/22/16 08:00 Nasal Cannula 2.0 09/22/16 08:00 36.8 85 24 130/61 97 Physical Exam: General-lethargic, arousable Eyes-no scleral icterus ENT-mmm Neck-supple Lungs-clear anteriorly Heart-regular Abdomen-bs+ s/nt Extremities-+2 edema in arms and legs Neuro-lethargic Current Inpatient Medications Medications (Trade) Dose Ordered Sig/Quan Route Start Time Stop Time Status Last Admin Dose Admin Cholecalciferol (Vitamin D Tab) 4,000 inter.unit QAM PO 09/18/16 09:00 10/18/16 08:59 09/21/16 08:47 4,000 INTER.UNIT Pantoprazole Sodium (Protonix Tab) 40 mg QAM PO 09/18/16 09:00 10/18/16 08:59 09/21/16 08:46 40 MG Vitamin B Complex (Vitamin B Complex) 1 tab DAILY PO 09/18/16 09:00 10/18/16 08:59 09/21/16 08:47 1 TAB Miscellaneous Information (Order Awaiting Action) 1 ea QS N/A 09/17/16 16:00 10/17/16 15:59 Nystatin/ Triamcinolone Acetonide (Mycogen II Crm) 1 appln BID EXT 09/17/16 11:15 10/17/16 11:14 09/22/16 21:00 1 APPLN Acetaminophen (Tylenol Tab) 650 mg Q6H PRN PO 09/18/16 08:15 10/18/16 08:14 09/20/16 02:00 650 MG Daptomycin (Consult) 1 ea UD PRN N/A 09/19/16 08:30 10/19/16 08:29 Miconazole Nitrate (Desenex Powder) 1 appln PRN PRN EXT 09/20/16 15:15 10/20/16 15:14 09/20/16 20:55 1 APPLN Enteral Nutritional Formula (Boost Breeze Nutritional Drink) 1 box [id number] PO 09/21/16 17:00 10/21/16 16:59 Piperacillin Sod/ Tazobactam Sod 1 ea 1 ea UD PRN N/A 09/22/16 09:15 10/22/16 09:14 Piperacillin Sod/ Tazobactam Sod 4.5 gm/Dextrose 120 ml @ 30 mls/hr Q12H IV 09/22/16 18:00 09/24/16 17:59 09/23/16 00:10 30 MLS/HR Daptomycin 650 mg/ Sodium Chloride 63 ml @ 120 mls/hr Q48H IV 09/23/16 16:00 11/02/16 08:59 Acetaminophen/ Empty Bag (Ofirmev Iv/ Empty Iv Bag 100ml) 65 ml @ 260 mls/hr Q6H PRN IV 09/22/16 16:30 10/22/16 16:29 09/22/16 17:06 260 MLS/HR Last 24 Hours Test 09/22/16 15:17 09/22/16 17:55 09/22/16 19:00 09/22/16 22:54 Prothrombin Time 56.5 SECONDS 27.6 SECONDS Prothromb Time International Ratio 4.9 2.5 Sodium Level 137 mmol/L Potassium Level 4.9 mmol/L Chloride Level 108 mmol/L Carbon Dioxide Level 20 mmol/L Anion Gap 9.0 mmol/L Blood Urea Nitrogen 99 mg/dl Creatinine 7.10 mg/dl Est Creatinine Clear Calc Drug Dose 8.7 ml/min Estimated GFR () 6.1 Estimated GFR (Non- 5.3 BUN/Creatinine Ratio 14.0 Random Glucose 97 mg/dl Calcium Level 8.4 mg/dl Lactate Dehydrogenase 191 U/L Arterial Blood pH 7.28 Arterial Blood Partial Pressure CO2 37 mmHg Arterial Blood Partial Pressure O2 93 mm/Hg Arterial Blood HCO3 17 mmol/L Arterial Blood Oxygen Saturation 95.0 % Arterial Blood Base Excess -9.2 mEq/L Arterial Blood Gas Delivery 2 l Piero Test POS Pass Activated Partial Thromboplast Time 41.8 SECONDS Partial Thromboplastin Ratio 1.6 Valproic Acid (Depakene) Level 42 mcg/ml Blood Gas Sample Site R Radial Bedside Blood Gas pH (LAB) 7.39 Bedside Blood Gas pCO2 (LAB) 40 mmHg Bedside Blood Gas pO2 (LAB) 92 mmHg Bedside Blood Gas HCO3 (LAB) 24 meq/L Bedside Blood Gas Total CO2 26 mEq/l Bedside Blood Gas Base Excess (LAB) -1.0 meq/L Bedside Blood Gas O2 Saturation 97.0 % Oxygen Delivery Device Cannula Test 09/22/16 23:59 09/23/16 01:14 09/23/16 05:25 09/23/16 06:50 Fibrinogen 336 mg/dl 458 mg/dl Fibrin Degradation Products 10-40 mcg/ml 10-40 mcg/ml Ammonia umol/L 28.0 umol/L White Blood Count 21.62 K/uL Red Blood Count 3.02 M/uL Hemoglobin 8.8 g/dL Hematocrit 25.3 % Mean Corpuscular Volume 83.8 fL Mean Corpuscular Hemoglobin 29.1 pg Mean Corpuscular Hemoglobin Concent 34.8 g/dl Platelet Count 127 K/uL Mean Platelet Volume 10.2 fL RDW Standard Deviation 50.6 fL RDW Coefficient of Variation 16.5 % Nucleated RBC Absolute Count (auto) 0.04 K/uL Nucleated Red Blood Cells % 0.2 % Prothrombin Time 12.2 SECONDS Prothromb Time International Ratio 1.1 Sodium Level 138 mmol/L Potassium Level 4.1 mmol/L Chloride Level 104 mmol/L Carbon Dioxide Level 26 mmol/L Anion Gap 8.0 mmol/L Blood Urea Nitrogen 78 mg/dl Creatinine 5.40 mg/dl Est Creatinine Clear Calc Drug Dose 11.5 ml/min Estimated GFR () 8.5 Estimated GFR (Non- 7.3 BUN/Creatinine Ratio 14.5 Random Glucose 97 mg/dl Calcium Level 7.8 mg/dl Phosphorus Level 4.1 mg/dl Magnesium Level 2.6 mg/dl Total Bilirubin 2.6 mg/dl Direct Bilirubin mg/dl Aspartate Amino Transf (AST/SGOT) 31 U/L Alanine Aminotransferase (ALT/SGPT) 29 U/L Alkaline Phosphatase 253 U/L Total Protein 4.7 gm/dl Albumin 1.3 gm/dl Globulin 3.4 gm/dl Albumin/Globulin Ratio 0.4 Assessment & Plan [id number]-has a temporary dialysis catheter and had two hour treatment last night and plan for 3 hour treatment today and will attempt 1 liter uf as bp tolerates. leukocytosis is trending down. abg improved after dialysis and pts mental status also improved. elevated inr improved after vitamin k. patient with low albumin levels on day of admission as well. will screen spep to be thorough.
[2016-09-23 07:54] LABS: COMPLETE YES; ECHINOCYTES 1+; EOSINOPHIL % 5.1 %; META ABS # 0.93 K/uL (0-0); METAMYELOCYTE % 4.3 %; MYELOCYTE % 1.7 %; NEUTROPHILS % 78.6 %; TARGET CELLS 1+; TOXIC GRANULATION 1+
--- NOTE | 2016-09-23 08:18 | Gastroenterology Progress Note ---
Progress Note Date of Service: Sep 23, 2016 Subjective Pt evaluation today including: conversation w/ patient, physical exam, chart review, lab review, review of studies, review of inpatient medication list Patient is a 70 year old female with hx of dementia, bipolar disorder, OCD, anemia, GERD, hx endometrial cancer, JOO admitted s/p left hip arthroplasty infected with MRSA, s/p debridement and poly-exchange 09/19 with operative cultures growing MRSA as well with elevated LFTs for which GI is consulted. Today: INR normalized at 1.1. T bili decreasin.3 yesterday, 2.6 today. Alk phos 253, down from 303 yesterday. AST 31, down from peak of 176 on 08/18. ALT has remained normal. Mildly hypotensive at 117/49, otherwise hemodynamically stable, POx 97% on 2 L O2. The pt is responding to her family. She is awake and answers yes, no to questions, though voice is weak, quiet. She was transferred to ICU for change in mental status, acute renal failure with need for dialysis. She underwent brief dialysis last night and became more alert after. Regarding her nutritional status, she has been seen by dietary and recommended po liquid supplements but is not taking much by mouth. I talked with the patient and her family (two daughters) at bedside about need to improve nutrition. Though she had an advanced directive stating no feeding tubes as live sustaining measure, they would like to go forward with a nasogastric feeding tube to deliver nutrition for "a week or so." Of note - on exam. BS are hypoactive and she is tender but soft and not distended. No BM noted on records since 09/18 and that one was small. Review of Systems Constitutional: No fever Respiratory: No cough Cardiac: No chest pain Abdomen: + constipation, + odynophagia (wallace says her mouth and throat are sore so it hurts to eat/drink), + pain, No GI bleeding, No diarrhea, No dysphagia, No nausea, No vomiting Female : + see HPI Neuro: + memory loss, + see HPI Heme: No abnormal bleeding/bruising Endo: + fatigue Skin: No jaundice, No rash Medications Current Inpatient Medications Medications (Trade) Dose Ordered Sig/Quan Route Start Time Stop Time Status Last Admin Dose Admin Cholecalciferol (Vitamin D Tab) 4,000 inter.unit QAM PO 09/18/16 09:00 10/18/16 08:59 09/21/16 08:47 4,000 INTER.UNIT Pantoprazole Sodium (Protonix Tab) 40 mg QAM PO 09/18/16 09:00 10/18/16 08:59 09/21/16 08:46 40 MG Vitamin B Complex (Vitamin B Complex) 1 tab DAILY PO 09/18/16 09:00 10/18/16 08:59 09/21/16 08:47 1 TAB Miscellaneous Information (Order Awaiting Action) 1 ea QS N/A 09/17/16 16:00 10/17/16 15:59 Nystatin/ Triamcinolone Acetonide (Mycogen II Crm) 1 appln BID EXT 09/17/16 11:15 10/17/16 11:14 09/22/16 21:00 1 APPLN Acetaminophen (Tylenol Tab) 650 mg Q6H PRN PO 09/18/16 08:15 10/18/16 08:14 09/20/16 02:00 650 MG Daptomycin (Consult) 1 ea UD PRN N/A 09/19/16 08:30 10/19/16 08:29 Miconazole Nitrate (Desenex Powder) 1 appln PRN PRN EXT 09/20/16 15:15 10/20/16 15:14 09/20/16 20:55 1 APPLN Enteral Nutritional Formula (Boost Breeze Nutritional Drink) 1 box BID17 PO 09/21/16 17:00 10/21/16 16:59 Piperacillin Sod/ Tazobactam Sod 1 ea 1 ea UD PRN N/A 09/22/16 09:15 10/22/16 09:14 Piperacillin Sod/ Tazobactam Sod 4.5 gm/Dextrose 120 ml @ 30 mls/hr Q12H IV 09/22/16 18:00 09/24/16 17:59 09/23/16 00:10 30 MLS/HR Daptomycin 650 mg/ Sodium Chloride 63 ml @ 120 mls/hr Q48H IV 09/23/16 16:00 11/02/16 08:59 Acetaminophen/ Empty Bag (Ofirmev Iv/ Empty Iv Bag 100ml) 65 ml @ 260 mls/hr Q6H PRN IV 09/22/16 16:30 10/22/16 16:29 09/22/16 17:06 260 MLS/HR Objective Vital Signs Date Time Temp Pulse Resp B/P Pulse Ox O2 Delivery O2 Flow Rate FiO2 09/23/16 06:00 72 17 117/49 97 Nasal Cannula 2.0 09/23/16 04:00 96 Nasal Cannula 2.0 09/23/16 04:00 36.7 76 16 121/55 96 Nasal Cannula 2.0 09/23/16 02:00 72 17 126/58 97 Nasal Cannula 2.0 09/23/16 00:01 36.7 76 17 115/63 99 Nasal Cannula 2.0 09/23/16 00:01 99 Nasal Cannula 2.0 09/22/16 22:41 36.5 76 122/48 09/22/16 22:15 78 128/55 09/22/16 22:00 78 17 117/53 99 Nasal Cannula 2.0 09/22/16 22:00 79 117/53 09/22/16 21:45 79 130/52 09/22/16 21:30 80 127/53 09/22/16 21:15 77 125/59 09/22/16 21:00 78 112/48 09/22/16 20:45 79 125/49 09/22/16 20:30 79 135/49 09/22/16 20:20 36.4 77 120/49 09/22/16 20:00 36.6 80 20 126/44 98 Nasal Cannula 2.0 09/22/16 20:00 98 Nasal Cannula 2.0 09/22/16 18:18 76 19 146/46 98 Nasal Cannula 2.0 09/22/16 16:00 Nasal Cannula 2.0 09/22/16 15:33 36.3 80 18 120/62 99 Nasal Cannula 2.0 09/22/16 12:00 Nasal Cannula 2.0 09/22/16 11:31 36.7 82 18 129/72 96 Physical Exam General Appearance: + pertinent finding (pt laying quietly in bed on her back. Appears lethargic but eyes are awake most of the time.) Neck: no JVD Respiratory/Chest: lungs clear Cardiovascular: regular rate, rhythm, no murmur Abdomen: soft, + abnormal bowel sounds (hypoactive), + tenderness (over entire abdomen) Extremities: + pedal edema, + pertinent finding (some mild dependent edema over arms, legs, torso) Neurologic/Psych: alert, normal mood/affect Skin: no jaundice Laboratory Results Last 24 Hours Test 09/22/16 15:17 09/22/16 17:55 09/22/16 19:00 09/22/16 22:54 Prothrombin Time 56.5 SECONDS 27.6 SECONDS Prothromb Time International Ratio 4.9 2.5 Sodium Level 137 mmol/L Potassium Level 4.9 mmol/L Chloride Level 108 mmol/L Carbon Dioxide Level 20 mmol/L Anion Gap 9.0 mmol/L Blood Urea Nitrogen 99 mg/dl Creatinine 7.10 mg/dl Est Creatinine Clear Calc Drug Dose 8.7 ml/min Estimated GFR () 6.1 Estimated GFR (Non- 5.3 BUN/Creatinine Ratio 14.0 Random Glucose 97 mg/dl Calcium Level 8.4 mg/dl Lactate Dehydrogenase 191 U/L Arterial Blood pH 7.28 Arterial Blood Partial Pressure CO2 37 mmHg Arterial Blood Partial Pressure O2 93 mm/Hg Arterial Blood HCO3 17 mmol/L Arterial Blood Oxygen Saturation 95.0 % Arterial Blood Base Excess -9.2 mEq/L Arterial Blood Gas Delivery 2 l Piero Test POS Pass Activated Partial Thromboplast Time 41.8 SECONDS Partial Thromboplastin Ratio 1.6 Valproic Acid (Depakene) Level 42 mcg/ml Blood Gas Sample Site R Radial Bedside Blood Gas pH (LAB) 7.39 Bedside Blood Gas pCO2 (LAB) 40 mmHg Bedside Blood Gas pO2 (LAB) 92 mmHg Bedside Blood Gas HCO3 (LAB) 24 meq/L Bedside Blood Gas Total CO2 26 mEq/l Bedside Blood Gas Base Excess (LAB) -1.0 meq/L Bedside Blood Gas O2 Saturation 97.0 % Oxygen Delivery Device Cannula Test 09/22/16 23:59 09/23/16 01:14 09/23/16 05:25 09/23/16 06:50 Fibrinogen 336 mg/dl 458 mg/dl Fibrin Degradation Products 10-40 mcg/ml 10-40 mcg/ml Ammonia umol/L 28.0 umol/L White Blood Count 21.62 K/uL Red Blood Count 3.02 M/uL Hemoglobin 8.8 g/dL Hematocrit 25.3 % Mean Corpuscular Volume 83.8 fL Mean Corpuscular Hemoglobin 29.1 pg Mean Corpuscular Hemoglobin Concent 34.8 g/dl Platelet Count 127 K/uL Mean Platelet Volume 10.2 fL RDW Standard Deviation 50.6 fL RDW Coefficient of Variation 16.5 % Nucleated RBC Absolute Count (auto) 0.04 K/uL Neutrophils % (Manual) 78.6 % Lymphocytes % (Manual) 6.0 % Monocytes % (Manual) 4.3 % Eosinophils % (Manual) 5.1 % Metamyelocytes % 4.3 % Myelocytes % 1.7 % Nucleated Red Blood Cells % 0.2 % Neutrophils # (Manual) 16.99 K/uL Total Absolute Neutrophils 16.99 K/uL Lymphocytes # (Manual) 1.30 K/uL Total Absolute Lymphocytes 1.30 K/uL Monocytes # (Manual) 0.93 K/uL Eosinophils # (Manual) 1.10 K/uL Metamyelocytes # 0.93 K/uL Myelocytes # 0.37 K/uL Toxic Granulation 1+ Target Cells 1+ Echinocytes 1+ Prothrombin Time 12.2 SECONDS Prothromb Time International Ratio 1.1 Sodium Level 138 mmol/L Potassium Level 4.1 mmol/L Chloride Level 104 mmol/L Carbon Dioxide Level 26 mmol/L Anion Gap 8.0 mmol/L Blood Urea Nitrogen 78 mg/dl Creatinine 5.40 mg/dl Est Creatinine Clear Calc Drug Dose 11.5 ml/min Estimated GFR () 8.5 Estimated GFR (Non- 7.3 BUN/Creatinine Ratio 14.5 Random Glucose 97 mg/dl Calcium Level 7.8 mg/dl Phosphorus Level 4.1 mg/dl Magnesium Level 2.6 mg/dl Total Bilirubin 2.6 mg/dl Direct Bilirubin mg/dl Aspartate Amino Transf (AST/SGOT) 31 U/L Alanine Aminotransferase (ALT/SGPT) 29 U/L Alkaline Phosphatase 253 U/L Total Protein 4.7 gm/dl Albumin 1.3 gm/dl Globulin 3.4 gm/dl Albumin/Globulin Ratio 0.4 Assessment and Plan Ms. Mccoy is a 70 yr old female who experienced increased LFTs, likely an effect of multiple antibiotics in the setting of hip fx and MRSA as well as acute renal failure. Today with improvement of LFTs since with of Rifampin on . Plan: 1. Regarding LFTs, as improving and no evidence of CBD obstruction on imaging, would follow periodically, but no further testing recommended at this time. 2. Regarding tender abdomen, KUB today - will review when available, may have constipation and/or ileus. 3. Regarding nutritional status, recommend NG feeding tube and dietary recommendations for specific feedings. Pt and family do not wish for long-term artificial tx but do agree to feedings for approx one week. I have seen, examined and agree as above with JA Murguia -Still think has DILI -Hold Rifampin -Follow LFT's -Needs nutrition but appears to have an SBO -NGT -Follow Daily KUB -Transition to enteral feeds if SBO resolves -Likely needs PPN vs TPN -Mental Status is improved likely to due HD from uremia -Cholestasis of sepsis may also be causing LFT's
[2016-09-23 08:55] LABS: HEPATITIS B AB NEG
[2016-09-23] MEDS: CHOLECALCIFEROL 1000 INTER.UNIT TAB PO SCH (09:00)
[2016-09-23] MEDS: BOOST BREEZE NUTRITION DRINK 1 BOX PO SCH ×2 (09:00→17:00)
[2016-09-23] MEDS: VITAMIN B COMPLEX TAB PO SCH (09:00)
[2016-09-23] MEDS: PANTOprazole SOD 40 MG TAB PO SCH (09:00)
[2016-09-23] MEDS: NYSTATIN/TRIAMCINOLONE CR 15 GM TUBE EXT SCH ×2 (09:41→22:20)
[2016-09-23] MEDS: ACETAMINOPHEN IV 650 MG in EMPTY BAG 0 ML IV PRN (10:08)
--- NOTE | 2016-09-23 11:29 | DIAGNOSTIC IMAGING REPORT ---
KUB HISTORY: hypoactive bowel sounds, abdominal tenderness on exam COMPARISON: Chest and abdominal series 07/27/2015. FINDINGS: Patchy density at the left lung base and linear densities at the right lung base. Prior cholecystectomy. Surgical clips within the midabdomen. Left total hip arthroplasty. Right femoral catheter terminates in the expected location of the right common iliac vein. There are few pelvic phleboliths. Gas-filled borderline dilated air-filled loops of small bowel are seen within the left side the abdomen. No renal calculi. No ureteral calculi. No pneumoperitoneum or pneumatosis. IMPRESSION: 1. Gas-filled borderline dilated air-filled loops of small bowel are seen within the left side the abdomen. This could be due to an ileus versus low-grade partial small bowel obstruction. 2. Patchy densities at the lung bases may represent atelectasis or pneumonia. 3. Additional findings as described above. Electronically signed by: Jv Busby M.D. 09/23/2016 11:27 AM Dictated Date/Time: 09/23/2016 11:25 AM
[2016-09-23] MEDS ORDERED: TPN/PPN CONSULT PHARMACY PRN (13:22)
[2016-09-23] MEDS ORDERED: FOSAPREPITANT DIMEGLUMINE INJ 150 MG in SODIUM CHLORIDE 0.9% 150ML 145 ML IV ONE (14:00)
--- NOTE | 2016-09-23 14:44 | DIAGNOSTIC IMAGING REPORT ---
KUB HISTORY: NGT PLACEMENT COMPARISON: KUB 09/23/2016. FINDINGS: Nasogastric tube terminates in the proximal stomach. This could be advanced by approximately 5 cm. Cholecystectomy. A few borderline dilated gas-filled loops of small bowel within the left side the abdomen remain unchanged. There are surgical midabdomen and a left total hip arthroplasty. No renal calculi. No ureteral calculi. No pneumoperitoneum or pneumatosis. IMPRESSION: Nasogastric tube terminates in the proximal stomach. This could be advanced by approximately 5 cm. No change in the few borderline dilated gas-filled loops of small bowel within the left side the abdomen. Electronically signed by: Jv Busby M.D. 09/23/2016 2:42 PM Dictated Date/Time: 09/23/2016 2:41 PM
--- NOTE | 2016-09-23 15:32 | PROGRESS NOTE ---
DATE: 09/23/2016 SUBJECTIVE: A 70-year-old white female, now 3 weeks out from a left total hip replacement complicated by postoperative acute infection. She is now postop day 4 from I\T\D and polyethylene and femoral head exchange. She has had a pretty paulino course. She looks better today and a bit more responsive. She did get some limited dialysis last evening. She does follow some simple commands. It is difficult to assess pain level. OBJECTIVE: VITAL SIGNS: Temperature is 36.6. Vital signs are stable. PHYSICAL EXAMINATION: GENERAL: This is an elderly female. She is lying in bed and fairly minimally responsive. She does seem to have grown a little bit and follows some simple commands. EXTREMITIES: Examination of left hip reveals the dressing to be clean, dry and intact. There is no real significant drainage. Her hip is located. She does dorsiflex and plantarflex her foot on command. She continues to have significant edema. LABORATORY DATA: Her hemoglobin is 8.8. Hematocrit 25.3. Electrolytes are stable. Creatinine is improved at 5.40. CULTURE RESULTS: Culture results from the hip revealed Staph aureus/MRSA. ASSESSMENT: A 70-year-old white female, 3 weeks out from left total hip replacement complicated by acute postoperative infection, now 4 days out from I\T\D. Her kidneys have gone into failure and she recently got some dialysis and seems to be a little bit more awake, alert and oriented since that. Certainly is not back to baseline by any sense. Her hip is located. Her neurological function appears intact but exam is limited. PLAN: From the orthopedic standpoint, we would like to mobilize as soon as possible. Continue DVT prophylaxis including thigh-high TEDs and SCDs. Her INR was markedly elevated, so we stopped her heparin. We will leave that up to the medicine service whether to restart that. I think the most aggressive we should be would be subQ heparin and nothing more than that. She will continue to need antibiotics for this infection. She is on daptomycin and we will keep her on that, she will probably need 6 weeks. We are going to discontinue the rifampin as the fabricator special items feels this is causing her liver dysfunction. We may reintroduce that later depending on how things come along. Continue other supportive medical management. I believe she is getting dialysis today. I will continue to follow her along. Any questions from the orthopedic standpoint can be directed to me at [phone]. [facility]
[2016-09-23] MEDS: HEPARIN SOD 5000 UNIT/0.5 ML CARP SQ SCH (16:00)
[2016-09-23] MEDS: DAPTOmycin IV 650 MG in SODIUM CHLORIDE 0.9% 50ML 50 ML IV SCH (17:19)
--- NOTE | 2016-09-23 18:50 | Progress Note ---
Internal Med Progress Note Date of Service: Sep 23, 2016. Provider Documentation: SUBJECTIVE: hasd dialysis last night and today seems somewhat more alert afyter second dialysis able to tll her name says she is ok hemodynamics stable' afebrile OBJECTIVE: Vital Signs-as noted below Exam: General-Drowsy but arousable ENT-normal hearing Neck-no neck masses Lungs-cta b/l no wheezing or crackles Heart-s1 and s2 heard regular rate and rhythm no murmurs Abdomen-soft bowel sounds present non tender no distension Extremities- s/p left hip I and D skin erythematous rash in groins. edematous Neuro-Drowsy but arousable oriented x 1 Lab data as noted below. ASSESSMENT & PLAN: LEFT HIP CELLULITIS and infection from RECENT LEFT EFREM Sepsis from above s/p left EFREM 09/[address] Leavitt, discharged on 09/06 to [facility] for rehab; presented with fever and generalized weakness leukocytosis and febrile s/p Vanco and Zosyn in the ER wound cx mrsa s/p I and D by ortho and deep cx growing staph currently on iv daptomycin and rifampin ID on board and appreciate inputs hemodynamics stable though patient still drowsy and lethargic added Zosyn until urine cultures available rifampin stopped secondary to elevated lfts's close monitor in icu ALBERT Most likely contrast induced nephropathy, in the setting of infection on kaur catheter for accurate I/O's Fluids as per nephrology may need dialysis Family ok for dialysis ct abd/pelvis unremarkable cr peaked to 7.1 09/22/16 nephrology on board nephrology initiated dialysis last night close monitor Encephalopathy metabolic from sepsis and ALBERT seems somewhat improved after two dialyses sessions will monitor ABNORMAL LFT's possibly due to underlying infection and medications liver ultrasound unremarkable ct scan unremarkable Consulted GI and appreciate inputs stopped rifampin improving f/u labs Acute blood loss ANEMIA Most likely due to blood loss from recent surgery, no signs of bleeding on iron replacement hb 8.8 will f/u labs Elevated INR inr today 4.9 mostly from ongomig infection, medications and arf giving iv vitamin k inr 1.1 today DEMENTIA, BIPOLAR on divalproex, donepezil, fluoxetine po meds on hold GERD PPI LEFT ABDOMINAL FOLD MACERATION mostly topical shweta on Mycogen cream wound care nurse consulted \ Psbo s/p ng tube Nutrition plan for tube feeds in am if sbo improves DVT PROPHYLAXIS Discontinued ASA 325mg BID given worsening renal function hep sub q for now CODE STATUS Full code DISPOSITION In ICU for close monitor Vital Signs: Date Time Temp Pulse Resp B/P Pulse Ox O2 Delivery O2 Flow Rate FiO2 09/23/16 18:00 36.5 83 15 135/55 96 09/23/16 16:00 Nasal Cannula 2.0 09/23/16 16:00 36.5 79 18 147/47 95 09/23/16 14:00 36.5 91 26 108/84 96 09/23/16 12:45 Nasal Cannula 2.0 09/23/16 12:40 37.0 73 118/50 09/23/16 12:15 75 118/50 09/23/16 12:00 74 104/51 09/23/16 12:00 36.5 74 15 104/51 96 09/23/16 11:45 79 131/52 09/23/16 11:30 76 123/46 09/23/16 11:15 79 133/53 09/23/16 11:00 75 106/45 09/23/16 10:45 75 115/49 09/23/16 10:30 76 113/46 09/23/16 10:15 76 125/50 09/23/16 10:00 36.5 76 17 123/46 92 09/23/16 10:00 77 123/46 09/23/16 09:45 76 129/50 09/23/16 09:30 76 136/47 09/23/16 09:15 36.6 76 139/46 09/23/16 08:00 Nasal Cannula 2.0 09/23/16 08:00 36.5 74 17 130/51 97 09/23/16 06:00 72 17 117/49 97 Nasal Cannula 2.0 09/23/16 04:00 96 Nasal Cannula 2.0 09/23/16 04:00 36.7 76 16 121/55 96 Nasal Cannula 2.0 09/23/16 02:00 72 17 126/58 97 Nasal Cannula 2.0 09/23/16 00:01 36.7 76 17 115/63 99 Nasal Cannula 2.0 09/23/16 00:01 99 Nasal Cannula 2.0 09/22/16 22:41 36.5 76 122/48 09/22/16 22:15 78 128/55 09/22/16 22:00 78 17 117/53 99 Nasal Cannula 2.0 09/22/16 22:00 79 117/53 09/22/16 21:45 79 130/52 09/22/16 21:30 80 127/53 09/22/16 21:15 77 125/59 09/22/16 21:00 78 112/48 09/22/16 20:45 79 125/49 09/22/16 20:30 79 135/49 09/22/16 20:20 36.4 77 120/49 09/22/16 20:00 36.6 80 20 126/44 98 Nasal Cannula 2.0 09/22/16 20:00 98 Nasal Cannula 2.0 Lab Results: Results Past 24 Hours Test 09/22/16 19:00 09/22/16 22:54 09/22/16 23:59 09/23/16 01:14 Range/Units Prothrombin Time 27.6 9.0-12.0 SECONDS Prothromb Time International Ratio 2.5 0.9-1.1 Activated Partial Thromboplast Time 41.8 21.0-31.0 SECONDS Partial Thromboplastin Ratio 1.6 Valproic Acid (Depakene) Level 42 50-100 mcg/ml Blood Gas Sample Site R Radial Bedside Blood Gas pH (LAB) 7.39 7.35-7.45 Bedside Blood Gas pCO2 (LAB) 40 35-46 mmHg Bedside Blood Gas pO2 (LAB) 92 80-95 mmHg Bedside Blood Gas HCO3 (LAB) 24 19-24 meq/L Bedside Blood Gas Total CO2 26 24-31 mEq/l Bedside Blood Gas Base Excess (LAB) -1.0 -9-1.8 meq/L Bedside Blood Gas O2 Saturation 97.0 90-95 % Piero Test Pass Oxygen Delivery Device Cannula Fibrinogen 336 184-400 mg/dl Fibrin Degradation Products 10-40 <10 mcg/ml Ammonia 28.0 11-32 umol/L Test 09/23/16 05:25 09/23/16 06:50 09/23/16 14:57 Range/Units White Blood Count 21.62 4.8-10.8 K/uL Red Blood Count 3.02 4.2-5.4 M/uL Hemoglobin 8.8 12.0-16.0 g/dL Hematocrit 25.3 37-47 % Mean Corpuscular Volume 83.8 80-100 fL Mean Corpuscular Hemoglobin 29.1 25-34 pg Mean Corpuscular Hemoglobin Concent 34.8 32-36 g/dl Platelet Count 127 130-400 K/uL Mean Platelet Volume 10.2 7.4-10.4 fL RDW Standard Deviation 50.6 36.4-46.3 fL RDW Coefficient of Variation 16.5 11.5-14.5 % Nucleated RBC Absolute Count (auto) 0.04 0-0 K/uL Neutrophils % (Manual) 78.6 % Lymphocytes % (Manual) 6.0 % Monocytes % (Manual) 4.3 % Eosinophils % (Manual) 5.1 % Metamyelocytes % 4.3 % Myelocytes % 1.7 % Nucleated Red Blood Cells % 0.2 % Neutrophils # (Manual) 16.99 1.4-6.5 K/uL Total Absolute Neutrophils 16.99 1.4-6.5 K/uL Lymphocytes # (Manual) 1.30 1.2-3.4 K/uL Total Absolute Lymphocytes 1.30 1.2-3.4 K/uL Monocytes # (Manual) 0.93 0.11-0.59 K/uL Eosinophils # (Manual) 1.10 0-0.5 K/uL Metamyelocytes # 0.93 0-0 K/uL Myelocytes # 0.37 0-0 K/uL Toxic Granulation 1+ Target Cells 1+ Echinocytes 1+ Prothrombin Time 12.2 9.0-12.0 SECONDS Prothromb Time International Ratio 1.1 0.9-1.1 Fibrinogen 458 184-400 mg/dl Fibrin Degradation Products 10-40 <10 mcg/ml Sodium Level 138 136-145 mmol/L Potassium Level 4.1 3.5-5.1 mmol/L Chloride Level 104 98-107 mmol/L Carbon Dioxide Level 26 21-32 mmol/L Anion Gap 8.0 3-11 mmol/L Blood Urea Nitrogen 78 7-18 mg/dl Creatinine 5.40 0.60-1.20 mg/dl Est Creatinine Clear Calc Drug Dose 11.5 ml/min Estimated GFR () 8.5 Estimated GFR (Non- 7.3 BUN/Creatinine Ratio 14.5 10-20 Random Glucose 97 70-99 mg/dl Calcium Level 7.8 8.5-10.1 mg/dl Phosphorus Level 4.1 2.5-4.9 mg/dl Magnesium Level 2.6 1.8-2.4 mg/dl Total Bilirubin 2.6 0.2-1 mg/dl Direct Bilirubin 0.3 0-0.2 mg/dl Aspartate Amino Transf (AST/SGOT) 31 15-37 U/L Alanine Aminotransferase (ALT/SGPT) 29 12-78 U/L Alkaline Phosphatase 253 45-117 U/L Total Protein 4.7 6.4-8.2 gm/dl Albumin 1.3 3.4-5.0 gm/dl Globulin 3.4 2.5-4.0 gm/dl Albumin/Globulin Ratio 0.4 0.9-2 Hepatitis B Surface Antigen NEG NEG Hepatitis B Surface Antibody NEG Lactic Acid Level 0.9 0.4-2.0 mmol/L Procalcitonin 10.25 0-0.5 ng/ml Heparin-PF4 Antibody Screen NEG NEG Microbiology Results 09/23/16 Blood Culture, Received Pending 09/23/16 Blood Culture, Received Pending
[2016-09-23] MEDS ORDERED: NOVASOURCE RENAL 1000ML BAG NG PRN (19:45)
--- NOTE | 2016-09-23 19:59 | Critical Care Progress Note ---
Critical Care Progress Note Date of Service Sep 23, 2016. ICU Day ICU Day Number: [address] Santillan Subjective Following simple commands Objective General Appearance: obese Head: normocephalic Eyes: PERRLA ENT: other (tongue is dry) Neck: no tenderness Respiratory: (diminished) throughout Cardiovasular: regular rate/rhythm, no JVD, other (diffusely edematous) Abdomen: other (bowel sounds ok. Obese. Generous panus) Upper Extremities: edema Lower Extremities: edema Neuro: Following simple commands and moves all 4 extremities Current SOFA Score SOFA Score Response (Comments) Value Platelets (x10) < 150 1 Bilirubin (mg/dL) 2.0 - 5.9 2 Treva Coma Score 13 - 14 1 Creatinine (mg/dL) > 5.0 4 Total 8 Assessment & Plan Reason Critically Ill: Encephalopathy in the setting of acute kidney injury, sepsis secondary to MRSA deep space infection PLAN: Neuro: Encephalopathy * Pneumonia within normal limits, Depakote within normal limits * Likely multifactorial secondary to medications and poor renal clearance, improved after dialysis Resp: Pulmonary toilet CV: History of dobutamine stress echo in 2016 results reviewed, continue to monitor for hypotension Fluids/Renal: ALBERT, now on dialysis tolerated treatment yesterday and today ID: Infectious disease following, urine culture groin Shraddha, ordered fungal blood culture at risk for fungemia Probable deep infection of left hip status post debridement and poly-exchange * Daptomycin * Added Zosyn secondary to organisms from urine and worsening clinical status * I have requested microbiology to culture and obtain sensitivities for initial urine * Second urine obtained September 21 was obtained after she had been started on broad-spectrum antibiotics in the emergency department * Rifampin held due to elevated LFTs GI/Nutrition: Abdominal pain: Possible constipation versus ileus * Nasogastric tube in place Will start trickle feeds with attempts to progress to goal * Jachin body weight: 52.4 kg, actual body weight 116.5 kg, adjusted body weight 77.8 kg * NOVASOURCE RENAL trickle at 15 ml/hour increase in goal of 30 ML's per hour based on ideal body weight * Morbid obesity Heme: Thrombocytopenia, hit panel negative * Likely multi factorial * Consumptive coagulopathy, no hard evidence of DIC at this time * Bilateral venous Dopplers rule out evidence of embolism * Heparin 5000 units 3 times a day subcutaneous for DVT prophylaxis * I have reviewed the problem list, reviewed the order history, I do not see evidence of Coumadin being ordered, at this point a assume the elevated INR was secondary to hepatic insufficiency Endocrine: Sugars within acceptable limits Had an extensive discussion with the family today regarding morbidity and mortality from probable sepsis, deep space infection, poor conditioning. Patient's son and daughter were in agreement she would not want her heroic measures undertaken in event of cardiac arrest. CODE STATUS has been changed to DO NOT RESUSCITATE in event of cardiac arrest I have personally spent 65 minutes of critical care time in the direct management of this patient. This is a life/limb threatening event. This includes time spent evaluating patient, direct bedside care, chart review, placing orders, interpretation of diagnostic studies, discussion with consultants, patient, and family members, as well as other required patient management activities. This time is exclusive of all separately billable procedures, and teaching time and separate from and in addition to any other critical care service time. Consults & Procedures Consultants: Gastroenterology Infectious disease Nephrology Orthopedic surgery Vascular surgery Procedures: Temporary dialysis catheter in right femoral vein placed by vascular surgery on 09/22/2016 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 09/23/2016 for poor vascular access and account retention representative antibiotic administration Data Medications: Current Inpatient Medications Medications (Trade) Dose Ordered Sig/Quan Route Start Time Stop Time Status Last Admin Dose Admin Cholecalciferol (Vitamin D Tab) 4,000 inter.unit QAM PO 09/18/16 09:00 10/18/16 08:59 09/21/16 08:47 4,000 INTER.UNIT Vitamin B Complex (Vitamin B Complex) 1 tab DAILY PO 09/18/16 09:00 10/18/16 08:59 09/21/16 08:47 1 TAB Miscellaneous Information (Order Awaiting Action) 1 ea QS N/A 09/17/16 16:00 10/17/16 15:59 Nystatin/ Triamcinolone Acetonide (Mycogen II Crm) 1 appln BID EXT 09/17/16 11:15 10/17/16 11:14 09/23/16 09:41 1 APPLN Acetaminophen (Tylenol Tab) 650 mg Q6H PRN PO 09/18/16 08:15 10/18/16 08:14 09/20/16 02:00 650 MG Daptomycin (Consult) 1 ea UD PRN N/A 09/19/16 08:30 10/19/16 08:29 Miconazole Nitrate (Desenex Powder) 1 appln PRN PRN EXT 09/20/16 15:15 10/20/16 15:14 09/20/16 20:55 1 APPLN Enteral Nutritional Formula (Boost Breeze Nutritional Drink) 1 box BID17 PO 09/21/16 17:00 10/21/16 16:59 Piperacillin Sod/ Tazobactam Sod 1 ea 1 ea UD PRN N/A 09/22/16 09:15 10/22/16 09:14 Piperacillin Sod/ Tazobactam Sod 4.5 gm/Dextrose 120 ml @ 30 mls/hr Q12H IV 09/22/16 18:00 09/24/16 17:59 09/23/16 13:02 30 MLS/HR Daptomycin 650 mg/ Sodium Chloride 63 ml @ 120 mls/hr Q48H IV 09/23/16 16:00 11/02/16 08:59 09/23/16 17:19 120 MLS/HR Acetaminophen/ Empty Bag (Ofirmev Iv/ Empty Iv Bag 100ml) 65 ml @ 260 mls/hr Q6H PRN IV 09/22/16 16:30 10/22/16 16:29 09/23/16 10:08 260 MLS/HR Heparin Sodium (Porcine) (Heparin Sq 5000 Unit/0.5ml) 5,000 unit Q8H SQ 09/23/16 16:00 10/23/16 15:59 Fentanyl Citrate 50 mcg 50 mcg Q2H PRN IV 09/23/16 14:30 10/07/16 14:29 Pantoprazole Sodium/Syringe (Protonix Inj/ Syringe) 10 ml @ 5 mls/min DAILY@,21 IV 09/23/16 21:00 10/23/16 20:59 I & O: 24-Hour Column 09/23/16 08:00 Intake Total 834 ml Output Total 220 ml Balance 614 ml Vital Signs: Date Time Temp Pulse Resp B/P Pulse Ox O2 Delivery O2 Flow Rate FiO2 09/23/16 18:00 36.5 83 15 135/55 96 09/23/16 16:00 Nasal Cannula 2.0 09/23/16 16:00 36.5 79 18 147/47 95 09/23/16 14:00 36.5 91 26 108/84 96 09/23/16 12:45 Nasal Cannula 2.0 09/23/16 12:40 37.0 73 118/50 09/23/16 12:15 75 118/50 09/23/16 12:00 74 104/51 09/23/16 12:00 36.5 74 15 104/51 96 09/23/16 11:45 79 131/52 09/23/16 11:30 76 123/46 09/23/16 11:15 79 133/53 09/23/16 11:00 75 106/45 09/23/16 10:45 75 115/49 09/23/16 10:30 76 113/46 09/23/16 10:15 76 125/50 09/23/16 10:00 36.5 76 17 123/46 92 09/23/16 10:00 77 123/46 09/23/16 09:45 76 129/50 09/23/16 09:30 76 136/47 09/23/16 09:15 36.6 76 139/46 09/23/16 08:00 Nasal Cannula 2.0 09/23/16 08:00 36.5 74 17 130/51 97 09/23/16 06:00 72 17 117/49 97 Nasal Cannula 2.0 09/23/16 04:00 96 Nasal Cannula 2.0 09/23/16 04:00 36.7 76 16 121/55 96 Nasal Cannula 2.0 09/23/16 02:00 72 17 126/58 97 Nasal Cannula 2.0 09/23/16 00:01 36.7 76 17 115/63 99 Nasal Cannula 2.0 09/23/16 00:01 99 Nasal Cannula 2.0 09/22/16 22:41 36.5 76 122/48 09/22/16 22:15 78 128/55 09/22/16 22:00 78 17 117/53 99 Nasal Cannula 2.0 09/22/16 22:00 79 117/53 09/22/16 21:45 79 130/52 09/22/16 21:30 80 127/53 09/22/16 21:15 77 125/59 09/22/16 21:00 78 112/48 09/22/16 20:45 79 125/49 09/22/16 20:30 79 135/49 09/22/16 20:20 36.4 77 120/49 09/22/16 20:00 36.6 80 20 126/44 98 Nasal Cannula 2.0 09/22/16 20:00 98 Nasal Cannula 2.0 Laboratory Results: Last 24 Hours Test 09/22/16 22:54 09/22/16 23:59 09/23/16 01:14 09/23/16 05:25 Blood Gas Sample Site R Radial Bedside Blood Gas pH (LAB) 7.39 Bedside Blood Gas pCO2 (LAB) 40 mmHg Bedside Blood Gas pO2 (LAB) 92 mmHg Bedside Blood Gas HCO3 (LAB) 24 meq/L Bedside Blood Gas Total CO2 26 mEq/l Bedside Blood Gas Base Excess (LAB) -1.0 meq/L Bedside Blood Gas O2 Saturation 97.0 % Piero Test Pass Oxygen Delivery Device Cannula Fibrinogen 336 mg/dl 458 mg/dl Fibrin Degradation Products 10-40 mcg/ml 10-40 mcg/ml Ammonia umol/L 28.0 umol/L White Blood Count 21.62 K/uL Red Blood Count 3.02 M/uL Hemoglobin 8.8 g/dL Hematocrit 25.3 % Mean Corpuscular Volume 83.8 fL Mean Corpuscular Hemoglobin 29.1 pg Mean Corpuscular Hemoglobin Concent 34.8 g/dl Platelet Count 127 K/uL Mean Platelet Volume 10.2 fL RDW Standard Deviation 50.6 fL RDW Coefficient of Variation 16.5 % Nucleated RBC Absolute Count (auto) 0.04 K/uL Neutrophils % (Manual) 78.6 % Lymphocytes % (Manual) 6.0 % Monocytes % (Manual) 4.3 % Eosinophils % (Manual) 5.1 % Metamyelocytes % 4.3 % Myelocytes % 1.7 % Nucleated Red Blood Cells % 0.2 % Neutrophils # (Manual) 16.99 K/uL Total Absolute Neutrophils 16.99 K/uL Lymphocytes # (Manual) 1.30 K/uL Total Absolute Lymphocytes 1.30 K/uL Monocytes # (Manual) 0.93 K/uL Eosinophils # (Manual) 1.10 K/uL Metamyelocytes # 0.93 K/uL Myelocytes # 0.37 K/uL Toxic Granulation 1+ Target Cells 1+ Echinocytes 1+ Prothrombin Time 12.2 SECONDS Prothromb Time International Ratio 1.1 Sodium Level 138 mmol/L Potassium Level 4.1 mmol/L Chloride Level 104 mmol/L Carbon Dioxide Level 26 mmol/L Anion Gap 8.0 mmol/L Blood Urea Nitrogen 78 mg/dl Creatinine 5.40 mg/dl Est Creatinine Clear Calc Drug Dose 11.5 ml/min Estimated GFR () 8.5 Estimated GFR (Non- 7.3 BUN/Creatinine Ratio 14.5 Random Glucose 97 mg/dl Calcium Level 7.8 mg/dl Phosphorus Level 4.1 mg/dl Magnesium Level 2.6 mg/dl Total Bilirubin 2.6 mg/dl Direct Bilirubin mg/dl Aspartate Amino Transf (AST/SGOT) 31 U/L Alanine Aminotransferase (ALT/SGPT) 29 U/L Alkaline Phosphatase 253 U/L Total Protein 4.7 gm/dl Albumin 1.3 gm/dl Globulin 3.4 gm/dl Albumin/Globulin Ratio 0.4 Hepatitis B Surface Antigen NEG Hepatitis B Surface Antibody NEG Test 09/23/16 06:50 09/23/16 14:57 Direct Bilirubin 0.3 mg/dl Lactic Acid Level 0.9 mmol/L Procalcitonin 10.25 ng/ml Heparin-PF4 Antibody Screen NEG
--- NOTE | 2016-09-23 20:50 | Infectious Disease Progress Nt ---
Progress Note Date of Service Sep 23, 2016. Subjective Pt evaluation today including: conversation w/ patient, physical exam, chart review, lab review, review of studies Patient now status post dialysis with improvement in mental status. Offers no new specific complaints. Remains afebrile. All Other Systems: Reviewed and Negative Medications Current Inpatient Medications Medications (Trade) Dose Ordered Sig/Quan Route Start Time Stop Time Status Last Admin Dose Admin Cholecalciferol (Vitamin D Tab) 4,000 inter.unit QAM PO 09/18/16 09:00 10/18/16 08:59 09/21/16 08:47 4,000 INTER.UNIT Vitamin B Complex (Vitamin B Complex) 1 tab DAILY PO 09/18/16 09:00 10/18/16 08:59 09/21/16 08:47 1 TAB Miscellaneous Information (Order Awaiting Action) 1 ea QS N/A 09/17/16 16:00 10/17/16 15:59 Nystatin/ Triamcinolone Acetonide (Mycogen II Crm) 1 appln BID EXT 09/17/16 11:15 10/17/16 11:14 09/23/16 09:41 1 APPLN Acetaminophen (Tylenol Tab) 650 mg Q6H PRN PO 09/18/16 08:15 10/18/16 08:14 09/20/16 02:00 650 MG Daptomycin (Consult) 1 ea UD PRN N/A 09/19/16 08:30 10/19/16 08:29 Miconazole Nitrate (Desenex Powder) 1 appln PRN PRN EXT 09/20/16 15:15 10/20/16 15:14 09/20/16 20:55 1 APPLN Enteral Nutritional Formula (Boost Breeze Nutritional Drink) 1 box BID17 PO 09/21/16 17:00 10/21/16 16:59 Piperacillin Sod/ Tazobactam Sod 1 ea 1 ea UD PRN N/A 09/22/16 09:15 10/22/16 09:14 Piperacillin Sod/ Tazobactam Sod 4.5 gm/Dextrose 120 ml @ 30 mls/hr Q12H IV 09/22/16 18:00 09/24/16 17:59 09/23/16 13:02 30 MLS/HR Daptomycin 650 mg/ Sodium Chloride 63 ml @ 120 mls/hr Q48H IV 09/23/16 16:00 11/02/16 08:59 09/23/16 17:19 120 MLS/HR Acetaminophen/ Empty Bag (Ofirmev Iv/ Empty Iv Bag 100ml) 65 ml @ 260 mls/hr Q6H PRN IV 09/22/16 16:30 10/22/16 16:29 09/23/16 10:08 260 MLS/HR Heparin Sodium (Porcine) (Heparin Sq 5000 Unit/0.5ml) 5,000 unit Q8H SQ 09/23/16 16:00 10/23/16 15:59 Fentanyl Citrate 50 mcg 50 mcg Q2H PRN IV 09/23/16 14:30 10/07/16 14:29 Pantoprazole Sodium/Syringe (Protonix Inj/ Syringe) 10 ml @ 5 mls/min DAILY@,21 IV 09/23/16 21:00 10/23/16 20:59 Enteral Nutritional Formula (Novasource Renal) 1 ml DAILY PO 09/24/16 09:00 10/24/16 08:59 UNV Objective Vital Signs Date Time Temp Pulse Resp B/P Pulse Ox O2 Delivery O2 Flow Rate FiO2 09/23/16 18:00 36.5 83 15 135/55 96 09/23/16 16:00 Nasal Cannula 2.0 09/23/16 16:00 36.5 79 18 147/47 95 09/23/16 14:00 36.5 91 26 108/84 96 09/23/16 12:45 Nasal Cannula 2.0 09/23/16 12:40 37.0 73 118/50 09/23/16 12:15 75 118/50 09/23/16 12:00 74 104/51 09/23/16 12:00 36.5 74 15 104/51 96 09/23/16 11:45 79 131/52 09/23/16 11:30 76 123/46 09/23/16 11:15 79 133/53 09/23/16 11:00 75 106/45 09/23/16 10:45 75 115/49 09/23/16 10:30 76 113/46 09/23/16 10:15 76 125/50 09/23/16 10:00 36.5 76 17 123/46 92 09/23/16 10:00 77 123/46 09/23/16 09:45 76 129/50 09/23/16 09:30 76 136/47 09/23/16 09:15 36.6 76 139/46 09/23/16 08:00 Nasal Cannula 2.0 09/23/16 08:00 36.5 74 17 130/51 97 09/23/16 06:00 72 17 117/49 97 Nasal Cannula 2.0 09/23/16 04:00 96 Nasal Cannula 2.0 09/23/16 04:00 36.7 76 16 121/55 96 Nasal Cannula 2.0 09/23/16 02:00 72 17 126/58 97 Nasal Cannula 2.0 09/23/16 00:01 36.7 76 17 115/63 99 Nasal Cannula 2.0 09/23/16 00:01 99 Nasal Cannula 2.0 09/22/16 22:41 36.5 76 122/48 09/22/16 22:15 78 128/55 09/22/16 22:00 78 17 117/53 99 Nasal Cannula 2.0 09/22/16 22:00 79 117/53 09/22/16 21:45 79 130/52 09/22/16 21:30 80 127/53 09/22/16 21:15 77 125/59 09/22/16 21:00 78 112/48 Physical Exam General Appearance: WD/WN, no apparent distress Eyes: normal inspection, sclerae normal ENT: normal ENT inspection, pharynx normal Neck: supple, no adenopathy, trachea midline Respiratory/Chest: chest non-tender, lungs clear, normal breath sounds, no respiratory distress Cardiovascular: regular rate, rhythm, no gallop, no murmur Abdomen: normal bowel sounds, non tender, soft, no organomegaly Extremities: non-tender, no calf tenderness, + pedal edema Neurologic/Psychiatric: alert, + pertinent finding ( Answers simple questions) Skin: normal color, no rash Lymphatic: no adenopathy Laboratory Results Last 24 Hours Test 09/22/16 22:54 09/22/16 23:59 09/23/16 01:14 09/23/16 05:25 Blood Gas Sample Site R Radial Bedside Blood Gas pH (LAB) 7.39 Bedside Blood Gas pCO2 (LAB) 40 mmHg Bedside Blood Gas pO2 (LAB) 92 mmHg Bedside Blood Gas HCO3 (LAB) 24 meq/L Bedside Blood Gas Total CO2 26 mEq/l Bedside Blood Gas Base Excess (LAB) -1.0 meq/L Bedside Blood Gas O2 Saturation 97.0 % Piero Test Pass Oxygen Delivery Device Cannula Fibrinogen 336 mg/dl 458 mg/dl Fibrin Degradation Products 10-40 mcg/ml 10-40 mcg/ml Ammonia umol/L 28.0 umol/L White Blood Count 21.62 K/uL Red Blood Count 3.02 M/uL Hemoglobin 8.8 g/dL Hematocrit 25.3 % Mean Corpuscular Volume 83.8 fL Mean Corpuscular Hemoglobin 29.1 pg Mean Corpuscular Hemoglobin Concent 34.8 g/dl Platelet Count 127 K/uL Mean Platelet Volume 10.2 fL RDW Standard Deviation 50.6 fL RDW Coefficient of Variation 16.5 % Nucleated RBC Absolute Count (auto) 0.04 K/uL Neutrophils % (Manual) 78.6 % Lymphocytes % (Manual) 6.0 % Monocytes % (Manual) 4.3 % Eosinophils % (Manual) 5.1 % Metamyelocytes % 4.3 % Myelocytes % 1.7 % Nucleated Red Blood Cells % 0.2 % Neutrophils # (Manual) 16.99 K/uL Total Absolute Neutrophils 16.99 K/uL Lymphocytes # (Manual) 1.30 K/uL Total Absolute Lymphocytes 1.30 K/uL Monocytes # (Manual) 0.93 K/uL Eosinophils # (Manual) 1.10 K/uL Metamyelocytes # 0.93 K/uL Myelocytes # 0.37 K/uL Toxic Granulation 1+ Target Cells 1+ Echinocytes 1+ Prothrombin Time 12.2 SECONDS Prothromb Time International Ratio 1.1 Sodium Level 138 mmol/L Potassium Level 4.1 mmol/L Chloride Level 104 mmol/L Carbon Dioxide Level 26 mmol/L Anion Gap 8.0 mmol/L Blood Urea Nitrogen 78 mg/dl Creatinine 5.40 mg/dl Est Creatinine Clear Calc Drug Dose 11.5 ml/min Estimated GFR () 8.5 Estimated GFR (Non- 7.3 BUN/Creatinine Ratio 14.5 Random Glucose 97 mg/dl Calcium Level 7.8 mg/dl Phosphorus Level 4.1 mg/dl Magnesium Level 2.6 mg/dl Total Bilirubin 2.6 mg/dl Direct Bilirubin mg/dl Aspartate Amino Transf (AST/SGOT) 31 U/L Alanine Aminotransferase (ALT/SGPT) 29 U/L Alkaline Phosphatase 253 U/L Total Protein 4.7 gm/dl Albumin 1.3 gm/dl Globulin 3.4 gm/dl Albumin/Globulin Ratio 0.4 Hepatitis B Surface Antigen NEG Hepatitis B Surface Antibody NEG Test 09/23/16 06:50 09/23/16 14:57 Direct Bilirubin 0.3 mg/dl Lactic Acid Level 0.9 mmol/L Procalcitonin 10.25 ng/ml Heparin-PF4 Antibody Screen NEG Assessment and Plan Probable deep infection of left hip following arthroplasty with superficial culture growing MRSA. Now s/p debridement and poly-exchange with operative cultures growing MRSA as well. Daptomycin appropriate, rifampin held because of elevated LFTs. liver enzymes and creatinine now improving. Fungal blood cultures are pending. Discussed with all involved.
--- NOTE | 2016-09-23 22:12 | DIAGNOSTIC IMAGING REPORT ---
BILATERAL LOWER EXTREMITY VENOUS DOPPLER CLINICAL HISTORY: Left hip cellulitis. HIT. COMPARISON STUDY: Left lower extremity venous Doppler February 10, 2016. TECHNIQUE: Sonography of the deep venous system of the bilateral lower extremities was performed. Compression and augmentation were evaluated. FINDINGS: This exam was compromised due to suboptimal penetration. The common femoral, superficial femoral and popliteal veins were compressible. Augmentation was normal. Flow was shown within the deep calf vessels. IMPRESSION: Technically compromised exam but no evidence of deep venous thrombus within the bilateral lower extremities. Electronically signed by: Norm Mena M.D. 09/23/2016 10:11 PM Dictated Date/Time: 09/23/2016 10:09 PM
[2016-09-23] MEDS: PANTOprazole INJ 40 MG in SYRINGE 0 ML IV SCH (22:19)
[2016-09-24] VITALS (37 sets, daily range): BP systolic 101–148; BP diastolic 41–59; PULSE 74–108; TEMP 36.6–37.1; O2SAT 95–100
[2016-09-24] MEDS: PIPERACILL/TAZOBAC IV 4.5 GM in DEXTROSE 5% 100ML IV SCH ×2 (00:19→12:45)
[2016-09-24] MEDS: HEPARIN SOD 5000 UNIT/0.5 ML CARP SQ SCH ×4 (00:21→23:53)
[2016-09-24 07:06] LABS: HEMATOCRIT 25.1 % (37-47); MEAN CELL VOLUME 83.7 fL (80-100); MEAN CORPUSCULAR HEMOGLOBIN 28.3 pg (25-34); MEAN CORPUSCULAR HGB CONC 33.9 g/dl (32-36); MEAN PLATELET VOLUME 10.2 fL (7.4-10.4); PLATELET COUNT 135 K/uL (130-400); WHITE BLOOD COUNT 27.85 K/uL (4.8-10.8)
[2016-09-24 07:16] LABS: VEN BLD GAS O2 SATURATION 81.2 %; VEN BLOOD GAS BASE EXCESS 1.4 mmol/L
[2016-09-24 07:29] LABS: BASO ABS # 0.47 K/uL (0-0.2); BASOPHIL % 1.7 %; COMPLETE YES; LYMPH ABS # 1.45 K/uL (1.2-3.4); LYMPHOCYTE % 5.2 %; META ABS # 2.17 K/uL (0-0); METAMYELOCYTE % 7.8 %; MICROCYTOSIS PRESENT; MYELOCYTE % 0.9 %; NEUTROPHILS % 79.2 %; TARGET CELLS 1+
[2016-09-24 07:42] LABS: BUN/CREATININE RATIO 14.9 (10-20); CALCIUM 8.1 mg/dl (8.5-10.1); CREATININE 4.4 mg/dl (0.60-1.20); MAGNESIUM 2.4 mg/dl (1.8-2.4); PHOSPHORUS 3.9 mg/dl (2.5-4.9); POTASSIUM 3.9 mmol/L (3.5-5.1)
--- NOTE | 2016-09-24 08:49 | Critical Care Progress Note ---
Critical Care Progress Note Date of Service Sep 24, 2016. ICU Day ICU Day Number: [address] Santillan Subjective Oriented to person mild improved mentation compared to yesterday Objective General Appearance: obese Head: normocephalic Eyes: PERRLA Neck: no tenderness Respiratory: (diminished) throughout Cardiovasular: regular rate/rhythm, no JVD, other (diffusely edematous) Abdomen: other (bowel sounds ok. Obese. Generous panus) Upper Extremities: edema Lower Extremities: edema Neuro: Following simple commands and moves all 4 extremities Current SOFA Score SOFA Score Response (Comments) Value Platelets (x10) < 150 1 Bilirubin (mg/dL) 2.0 - 5.9 2 Creatinine (mg/dL) 3.5 - 4.9 3 Total 6 Previous SOFA Scores 8 09/23/2016 Assessment & Plan PLAN: Neuro: Encephalopathy * ammonia within normal limits, Depakote within normal limits * Likely multifactorial secondary to medications and poor renal clearance, improved after dialysis Resp: Pulmonary toilet CV: History of dobutamine stress echo in 2016 results reviewed, continue to monitor for hypotension Fluids/Renal: ALBERT, now on dialysis tolerated treatments x2, renal to evaluate today. ID: Infectious disease following, urine culture groin Shraddha, ordered fungal blood culture at risk for fungemia Probable deep infection of left hip status post debridement and poly-exchange * Daptomycin * Added Zosyn secondary to organisms from urine and worsening clinical status * I have requested microbiology to culture and obtain sensitivities for initial urine * Second urine obtained September 21 was obtained after she had been started on broad-spectrum antibiotics in the emergency department * Rifampin held due to elevated LFTs * Speciation came back as Escherichia coli which is sensitive to Zosyn, will de- escalate to cefazolin, treatment length 14 days * discontinue kaur , patient anuric, bladder scan prn GI/Nutrition: Abdominal pain: Possible constipation versus ileus * Nasogastric tube in place Will start trickle feeds with attempts to progress to goal * [place] body weight: 52.4 kg, actual body weight 116.5 kg, adjusted body weight 77.8 kg * NOVASOURCE RENAL trickle at 15 ml/hour increase in goal of 30 ML's per hour based on ideal body weight * Advance NG tube 5 cm per radiology reading * Morbid obesity Heme: Thrombocytopenia, hit panel negative * Likely multi factorial * Consumptive coagulopathy, no hard evidence of DIC at this time * Bilateral venous Dopplers negative 09/23/2016 * Heparin 5000 units 3 times a day subcutaneous for DVT prophylaxis Endocrine: Sugars within acceptable limits CODE STATUS: DO NOT RESUSCITATE in event of cardiac arrest Consults & Procedures Consultants: Gastroenterology Infectious disease Nephrology Orthopedic surgery Vascular surgery Procedures: Temporary dialysis catheter in right femoral vein placed by vascular surgery on 09/22/2016 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 09/24/2016 for poor vascular access and skilled nursing antibiotic administration Consults & Procedures Consultants: Gastroenterology Infectious disease Nephrology Orthopedic surgery Vascular surgery Procedures: Temporary dialysis catheter in right femoral vein placed by vascular surgery on 09/22/2016 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 09/23/2016 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 Data Medications: Current Inpatient Medications Medications (Trade) Dose Ordered Sig/Quan Route Start Time Stop Time Status Last Admin Dose Admin Cholecalciferol (Vitamin D Tab) 4,000 inter.unit QAM PO 09/18/16 09:00 10/18/16 08:59 09/21/16 08:47 4,000 INTER.UNIT Vitamin B Complex (Vitamin B Complex) 1 tab DAILY PO 09/18/16 09:00 10/18/16 08:59 09/21/16 08:47 1 TAB Miscellaneous Information (Order Awaiting Action) 1 ea QS N/A 09/17/16 16:00 10/17/16 15:59 Nystatin/ Triamcinolone Acetonide (Mycogen II Crm) 1 appln BID EXT 09/17/16 11:15 10/17/16 11:14 09/23/16 22:20 1 APPLN Acetaminophen (Tylenol Tab) 650 mg Q6H PRN PO 09/18/16 08:15 10/18/16 08:14 09/20/16 02:00 650 MG Daptomycin (Consult) 1 ea UD PRN N/A 09/19/16 08:30 10/19/16 08:29 Miconazole Nitrate (Desenex Powder) 1 appln PRN PRN EXT 09/20/16 15:15 10/20/16 15:14 09/20/16 20:55 1 APPLN Enteral Nutritional Formula (Boost Breeze Nutritional Drink) 1 box BID17 PO 09/21/16 17:00 10/21/16 16:59 Piperacillin Sod/ Tazobactam Sod 1 ea 1 ea UD PRN N/A 09/22/16 09:15 10/22/16 09:14 Piperacillin Sod/ Tazobactam Sod 4.5 gm/Dextrose 120 ml @ 30 mls/hr Q12H IV 09/22/16 18:00 09/24/16 17:59 09/24/16 00:19 30 MLS/HR Daptomycin 650 mg/ Sodium Chloride 63 ml @ 120 mls/hr Q48H IV 09/23/16 16:00 11/02/16 08:59 09/23/16 17:19 120 MLS/HR Acetaminophen/ Empty Bag (Ofirmev Iv/ Empty Iv Bag 100ml) 65 ml @ 260 mls/hr Q6H PRN IV 09/22/16 16:30 10/22/16 16:29 09/23/16 10:08 260 MLS/HR Heparin Sodium (Porcine) (Heparin Sq 5000 Unit/0.5ml) 5,000 unit Q8H SQ 09/23/16 16:00 10/23/16 15:59 09/24/16 00:21 5,000 UNIT Fentanyl Citrate 50 mcg 50 mcg Q2H PRN IV 09/23/16 14:30 10/07/16 14:29 Pantoprazole Sodium/Syringe (Protonix Inj/ Syringe) 10 ml @ 5 mls/min DAILY@,21 IV 09/23/16 21:00 10/23/16 20:59 09/23/16 22:19 5 MLS/MIN Enteral Nutritional Formula (Novasource Renal) 1,000 ml UD PRN PO 09/24/16 09:00 10/24/16 08:59 I & O: 24-Hour Column 09/24/16 08:00 Intake Total 513 ml Output Total 125 ml Balance 388 ml Vital Signs: Date Time Temp Pulse Resp B/P Pulse Ox O2 Delivery O2 Flow Rate FiO2 09/24/16 07:52 36.9 76 20 116/50 96 Nasal Cannula 2.0 09/24/16 06:00 36.7 84 16 127/51 96 Nasal Cannula 2.0 09/24/16 05:00 81 16 134/53 97 Nasal Cannula 2.0 09/24/16 04:38 96 Nasal Cannula 2.0 09/24/16 04:00 74 16 148/59 97 Nasal Cannula 2.0 09/24/16 03:00 78 16 147/54 96 Nasal Cannula 2.0 09/24/16 02:00 83 16 134/57 95 Nasal Cannula 2.0 09/24/16 01:00 87 18 145/59 96 Nasal Cannula 2.0 09/24/16 00:24 96 Nasal Cannula 2.0 09/24/16 00:00 36.7 80 16 147/54 96 Nasal Cannula 2.0 09/23/16 23:00 76 21 138/50 96 Nasal Cannula 2.0 09/23/16 22:00 36.7 81 18 130/52 95 Nasal Cannula 2.0 09/23/16 21:00 88 17 130/51 94 Nasal Cannula 2.0 09/23/16 20:03 96 Nasal Cannula 2.0 09/23/16 20:00 36.7 90 20 130/55 95 Nasal Cannula 2.0 09/23/16 19:00 90 20 138/51 95 Nasal Cannula 2.0 09/23/16 18:00 36.5 83 15 135/55 96 09/23/16 16:00 Nasal Cannula 2.0 09/23/16 16:00 36.5 79 18 147/47 95 09/23/16 14:00 36.5 91 26 108/84 96 09/23/16 12:45 Nasal Cannula 2.0 09/23/16 12:40 37.0 73 118/50 09/23/16 12:15 75 118/50 09/23/16 12:00 74 104/51 09/23/16 12:00 36.5 74 15 104/51 96 09/23/16 11:45 79 131/52 09/23/16 11:30 76 123/46 09/23/16 11:15 79 133/53 09/23/16 11:00 75 106/45 09/23/16 10:45 75 115/49 09/23/16 10:30 76 113/46 09/23/16 10:15 76 125/50 09/23/16 10:00 36.5 76 17 123/46 92 09/23/16 10:00 77 123/46 09/23/16 09:45 76 129/50 09/23/16 09:30 76 136/47 09/23/16 09:15 36.6 76 139/46 Laboratory Results: Last 24 Hours Test 09/23/16 14:57 09/24/16 06:45 Lactic Acid Level 0.9 mmol/L Procalcitonin 10.25 ng/ml Heparin-PF4 Antibody Screen NEG White Blood Count 27.85 K/uL Red Blood Count 3.00 M/uL Hemoglobin 8.5 g/dL Hematocrit 25.1 % Mean Corpuscular Volume 83.7 fL Mean Corpuscular Hemoglobin 28.3 pg Mean Corpuscular Hemoglobin Concent 33.9 g/dl Platelet Count 135 K/uL Mean Platelet Volume 10.2 fL RDW Standard Deviation 49.4 fL RDW Coefficient of Variation 16.3 % Nucleated RBC Absolute Count (auto) 0.05 K/uL Neutrophils % (Manual) 79.2 % Lymphocytes % (Manual) 5.2 % Monocytes % (Manual) 5.2 % Basophils % (Manual) 1.7 % Metamyelocytes % 7.8 % Myelocytes % 0.9 % Nucleated Red Blood Cells % 0.2 % Neutrophils # (Manual) 22.06 K/uL Total Absolute Neutrophils 22.06 K/uL Lymphocytes # (Manual) 1.45 K/uL Total Absolute Lymphocytes 1.45 K/uL Monocytes # (Manual) 1.45 K/uL Basophils # (Manual) 0.47 K/uL Metamyelocytes # 2.17 K/uL Myelocytes # 0.25 K/uL Microcytosis PRESENT Target Cells 1+ Venous Blood pH 7.38 Venous Blood Partial Pressure CO2 46 mmHg Venous Blood Partial Pressure O2 50 mmHg Venous Blood HCO3 27 mmol/L Venous Blood Oxygen Saturation 81.2 % Venous Blood Base Excess 1.4 mmol/L Sodium Level 138 mmol/L Potassium Level 3.9 mmol/L Chloride Level 102 mmol/L Carbon Dioxide Level 28 mmol/L Anion Gap 8.0 mmol/L Blood Urea Nitrogen 65 mg/dl Creatinine 4.40 mg/dl Est Creatinine Clear Calc Drug Dose 13.7 ml/min Estimated GFR () 10.9 Estimated GFR (Non- 9.4 BUN/Creatinine Ratio 14.9 Random Glucose 113 mg/dl Calcium Level 8.1 mg/dl Phosphorus Level 3.9 mg/dl Magnesium Level 2.4 mg/dl
--- NOTE | 2016-09-24 08:53 | PROGRESS NOTE ---
DATE: 09/24/2016 SUBJECTIVE: A 70-year-old white female with multiple comorbidities, now 3 weeks out from a left total hip replacement complicated by infection, 5 days out from I\T\D and polyethylene and femoral head exchange. She is much more awake, alert and oriented today. She follows simple commands. She just groans a lot. OBJECTIVE: VITAL SIGNS: Temperature 36.9. Vital signs stable. PHYSICAL EXAMINATION: GENERAL: Reveals she is a pleasant elderly female. She is lying in bed. She follows commands. Does not really talk much, but rather just groans. EXTREMITIES: Examination of left hip reveals the leg lengths to be equal. She does voluntarily dorsiflex and plantarflex her foot on command today. She is neurologically intact. Hip is located. Incision reveals moderate serosanguinous drainage. LABORATORY DATA: Hemoglobin 8.5, hematocrit 25.1. White cell count elevated at 27.85. ASSESSMENT: A 70-year-old white female 3 weeks out from a total hip replacement complicated by infection and 5 days out from incision and drainage. She has been afebrile for several days now. Her white count was improving but now deteriorating some. The etiology is unclear. She certainly seems more awake, alert and appropriate now that she has gotten dialysis. PLAN: From the orthopedic standpoint, she continues to need the IV antibiotics, daptomycin. We are holding the rifampin now due to her liver function tests. I changed her bandage today. She has got a moderate amount of bloody serous drainage. We will continue to follow this. It would be great to mobilizer her and begin mobilizing her whenever possible. We will continue supportive care and hopefully, her body will make improvements. I do not think there is much more to do from the orthopedic standpoint at this point. Any questions can be directed to me at [phone]. Continue DVT prophylaxis including thigh-high TEDs and SCDs for now. MTDD
[2016-09-24] MEDS: BOOST BREEZE NUTRITION DRINK 1 BOX PO SCH ×2 (08:58→15:36)
[2016-09-24] MEDS: NYSTATIN/TRIAMCINOLONE CR 15 GM TUBE EXT SCH ×2 (08:59→21:00)
[2016-09-24] MEDS: VITAMIN B COMPLEX TAB PO SCH (08:59)
[2016-09-24] MEDS: PANTOprazole INJ 40 MG in SYRINGE 0 ML IV SCH ×2 (08:59→20:04)
[2016-09-24] MEDS: CHOLECALCIFEROL 1000 INTER.UNIT TAB PO SCH (08:59)
[2016-09-24] MEDS: ACETAMINOPHEN IV 650 MG in EMPTY BAG 0 ML IV PRN (12:45)
--- NOTE | 2016-09-24 13:43 | Nephrology Progress Note ---
Nephrology Progress Note Date of Service: Sep 24, 2016. Subjective seen on rounds this am 0900; lethargic/ not interactive. on 2LNC; no F. has NG and on novosource Objective Date Time Temp Pulse Resp B/P Pulse Ox O2 Delivery O2 Flow Rate FiO2 09/24/16 11:30 Nasal Cannula 2.0 09/24/16 11:30 36.6 81 18 116/49 96 Nasal Cannula 2.0 09/24/16 09:30 79 18 122/45 96 Nasal Cannula 2.0 09/24/16 07:52 36.9 76 20 116/50 96 Nasal Cannula 2.0 09/24/16 07:30 Nasal Cannula 2.0 09/24/16 06:00 36.7 84 16 127/51 96 Nasal Cannula 2.0 09/24/16 05:00 81 16 134/53 97 Nasal Cannula 2.0 09/24/16 04:38 96 Nasal Cannula 2.0 09/24/16 04:00 74 16 148/59 97 Nasal Cannula 2.0 09/24/16 03:00 78 16 147/54 96 Nasal Cannula 2.0 09/24/16 02:00 83 16 134/57 95 Nasal Cannula 2.0 09/24/16 01:00 87 18 145/59 96 Nasal Cannula 2.0 09/24/16 00:24 96 Nasal Cannula 2.0 09/24/16 00:00 36.7 80 16 147/54 96 Nasal Cannula 2.0 09/23/16 23:00 76 21 138/50 96 Nasal Cannula 2.0 09/23/16 22:00 36.7 81 18 130/52 95 Nasal Cannula 2.0 09/23/16 21:00 88 17 130/51 94 Nasal Cannula 2.0 09/23/16 20:03 96 Nasal Cannula 2.0 09/23/16 20:00 36.7 90 20 130/55 95 Nasal Cannula 2.0 09/23/16 19:00 90 20 138/51 95 Nasal Cannula 2.0 09/23/16 18:00 36.5 83 15 135/55 96 09/23/16 16:00 Nasal Cannula 2.0 09/23/16 16:00 36.5 79 18 147/47 95 09/23/16 14:00 36.5 91 26 108/84 96 Physical Exam: General Appearance: WD/WN, no apparent distress, + obese, obtunded/lethargic, on 2L02NC Eyes: nonicgteric ENT: hearing grossly normal, + pertinent finding (dry MM); NGT w/ TF funning Neck: supple Respiratory/Chest: lungs clear, no respiratory distress, no accessory muscle use, + decreased breath sounds Cardiovascular: no edema, RRR, + systolic murmur Abdomen: normal bowel sounds, soft (kaur w/ scant urine; NT abd Extremities: 2+ peripheral/dependent edema, L hip wound Neurologic/Psych: lethargic / challenging to arouse Skin: no jaundice, warm/dry, no rash Current Inpatient Medications Medications (Trade) Dose Ordered Sig/Quan Route Start Time Stop Time Status Last Admin Dose Admin Cholecalciferol (Vitamin D Tab) 4,000 inter.unit QAM PO 09/18/16 09:00 10/18/16 08:59 09/24/16 08:59 4,000 INTER.UNIT Vitamin B Complex (Vitamin B Complex) 1 tab DAILY PO 09/18/16 09:00 10/18/16 08:59 09/24/16 08:59 1 TAB Miscellaneous Information (Order Awaiting Action) 1 ea QS N/A 09/17/16 16:00 10/17/16 15:59 Nystatin/ Triamcinolone Acetonide (Mycogen II Crm) 1 appln BID EXT 09/17/16 11:15 10/17/16 11:14 09/24/16 08:59 1 APPLN Acetaminophen (Tylenol Tab) 650 mg Q6H PRN PO 09/18/16 08:15 10/18/16 08:14 09/20/16 02:00 650 MG Daptomycin (Consult) 1 ea UD PRN N/A 09/19/16 08:30 10/19/16 08:29 Miconazole Nitrate (Desenex Powder) 1 appln PRN PRN EXT 09/20/16 15:15 10/20/16 15:14 09/20/16 20:55 1 APPLN Enteral Nutritional Formula (Boost Breeze Nutritional Drink) 1 box [id number] PO 09/21/16 17:00 10/21/16 16:59 Piperacillin Sod/ Tazobactam Sod 1 ea 1 ea UD PRN N/A 09/22/16 09:15 10/22/16 09:14 Piperacillin Sod/ Tazobactam Sod 4.5 gm/Dextrose 120 ml @ 30 mls/hr Q12H IV 09/22/16 18:00 09/24/16 17:59 09/24/16 12:45 30 MLS/HR Daptomycin 650 mg/ Sodium Chloride 63 ml @ 120 mls/hr Q48H IV 09/23/16 16:00 11/02/16 08:59 09/23/16 17:19 120 MLS/HR Acetaminophen/ Empty Bag (Ofirmev Iv/ Empty Iv Bag 100ml) 65 ml @ 260 mls/hr Q6H PRN IV 09/22/16 16:30 10/22/16 16:29 09/24/16 12:45 260 MLS/HR Heparin Sodium (Porcine) (Heparin Sq 5000 Unit/0.5ml) 5,000 unit Q8H SQ 09/23/16 16:00 10/23/16 15:59 09/24/16 09:01 5,000 UNIT Fentanyl Citrate 50 mcg 50 mcg Q2H PRN IV 09/23/16 14:30 10/07/16 14:29 Pantoprazole Sodium/Syringe (Protonix Inj/ Syringe) 10 ml @ 5 mls/min DAILY@09,21 IV 09/23/16 21:00 10/23/16 20:59 09/24/16 08:59 5 MLS/MIN Enteral Nutritional Formula (Novasource Renal) 1,000 ml UD PRN PO 09/24/16 09:00 10/24/16 08:59 Last 24 Hours Test 09/23/16 14:57 09/24/16 06:45 Lactic Acid Level 0.9 mmol/L Procalcitonin 10.25 ng/ml Heparin-PF4 Antibody Screen NEG White Blood Count 27.85 K/uL Red Blood Count 3.00 M/uL Hemoglobin 8.5 g/dL Hematocrit 25.1 % Mean Corpuscular Volume 83.7 fL Mean Corpuscular Hemoglobin 28.3 pg Mean Corpuscular Hemoglobin Concent 33.9 g/dl Platelet Count 135 K/uL Mean Platelet Volume 10.2 fL RDW Standard Deviation 49.4 fL RDW Coefficient of Variation 16.3 % Nucleated RBC Absolute Count (auto) 0.05 K/uL Neutrophils % (Manual) 79.2 % Lymphocytes % (Manual) 5.2 % Monocytes % (Manual) 5.2 % Basophils % (Manual) 1.7 % Metamyelocytes % 7.8 % Myelocytes % 0.9 % Nucleated Red Blood Cells % 0.2 % Neutrophils # (Manual) 22.06 K/uL Total Absolute Neutrophils 22.06 K/uL Lymphocytes # (Manual) 1.45 K/uL Total Absolute Lymphocytes 1.45 K/uL Monocytes # (Manual) 1.45 K/uL Basophils # (Manual) 0.47 K/uL Metamyelocytes # 2.17 K/uL Myelocytes # 0.25 K/uL Microcytosis PRESENT Target Cells 1+ Venous Blood pH 7.38 Venous Blood Partial Pressure CO2 46 mmHg Venous Blood Partial Pressure O2 50 mmHg Venous Blood HCO3 27 mmol/L Venous Blood Oxygen Saturation 81.2 % Venous Blood Base Excess 1.4 mmol/L Sodium Level 138 mmol/L Potassium Level 3.9 mmol/L Chloride Level 102 mmol/L Carbon Dioxide Level 28 mmol/L Anion Gap 8.0 mmol/L Blood Urea Nitrogen 65 mg/dl Creatinine 4.40 mg/dl Est Creatinine Clear Calc Drug Dose 13.7 ml/min Estimated GFR () 10.9 Estimated GFR (Non- 9.4 BUN/Creatinine Ratio 14.9 Random Glucose 113 mg/dl Calcium Level 8.1 mg/dl Phosphorus Level 3.9 mg/dl Magnesium Level 2.4 mg/dl Date/Time Source Procedure Growth Status 09/23/16 20:50 Blood Fungal Smear - Final Resulted 09/23/16 20:50 Blood Fungal Culture Pending Resulted 09/23/16 14:57 Blood Blood Culture Pending Received 09/23/16 14:48 Blood Blood Culture Pending Received Assessment & Plan 70 y/o F w/ anuric acute renal failure peak creatinine 7.1 after readmission w/ 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 s/p debridement and poly-exchange 09/19. Electrolytes acceptable for now; anemia acceptable. ALBERT; oligoanuric multifactorial ATN from contrast induced nephropathy in pt at risk for this w/ concurrent NSAID use and w/ elevated random vancomycin level, hypotension/ ongoing fever/sepsis. -urine cx +; f/u UA contaminated/ not screamingly c/w uti -daily bmp, cbc -for gentle dialysis late today -cont novosource -next HD tentatively for 09/26 Decreased MS -had vbg this am / unremarkable; per primary service Infected L total hip -s/p 09/19 I&D/ poly-exchange; surgery and inf dzs following >>VTE prophylaxis per ortho and primary service Appreciate consult; will follow with you.
--- NOTE | 2016-09-24 19:04 | Progress Note ---
Internal Med Progress Note Date of Service: Sep 24, 2016. Provider Documentation: SUBJECTIVE: can open eyes and tell her name moving extremities on command hemodynamics stable afebrile OBJECTIVE: Vital Signs-as noted below Exam: General-Drowsy but arousable ENT-normal hearing Neck-no neck masses Lungs-cta b/l no wheezing or crackles Heart-s1 and s2 heard regular rate and rhythm no murmurs Abdomen-soft bowel sounds present non tender no distension Extremities- s/p left hip I and D skin erythematous rash in groins. edematous Neuro-Drowsy but arousable oriented x 1 Lab data as noted below. ASSESSMENT & PLAN: LEFT HIP CELLULITIS and infection from RECENT LEFT EFREM Sepsis from above s/p left EFREM 09/[address] Leavitt, discharged on 09/06 to [facility] for rehab; presented with fever and generalized weakness leukocytosis and febrile s/p Vanco and Zosyn in the ER wound cx mrsa s/p I and D by ortho and deep cx growing staph was placed on iv daptomycin and rifampin ID on board and appreciate inputs hemodynamics stable though patient still drowsy and lethargic on Zosyn for uti cx grew e.coli rifampin stopped secondary to elevated lfts's close monitor in icu ALBERT Most likely contrast induced nephropathy, in the setting of infection on kaur catheter for accurate I/O's initially received fluids ct abd/pelvis unremarkable cr peaked to 7.1 09/22/16 nephrology on board nephrology initiated dialysis close monitor Encephalopathy metabolic from sepsis and ALBERT seems somewhat improved after dialysis will monitor ABNORMAL LFT's possibly due to underlying infection and medications liver ultrasound unremarkable ct scan unremarkable Consulted GI and appreciate inputs stopped rifampin improving f/u labs in am Acute blood loss ANEMIA Most likely due to blood loss from recent surgery, no signs of bleeding on iron replacement hb 8.5 will f/u labs Elevated INR inr today 4.9 mostly from ongomig infection, medications and arf giving iv vitamin k inr 1.1 today DEMENTIA, BIPOLAR on divalproex, donepezil, fluoxetine po meds on hold GERD PPI LEFT ABDOMINAL FOLD MACERATION mostly topical shweta on Mycogen cream wound care nurse consulted \ Psbo s/p ng tube Nutrition started on tube feeds DVT PROPHYLAXIS Discontinued ASA 325mg BID given worsening renal function hep sub q for now CODE STATUS DNR DISPOSITION In ICU for close monitor Vital Signs: Date Time Temp Pulse Resp B/P Pulse Ox O2 Delivery O2 Flow Rate FiO2 09/24/16 18:00 76 20 117/47 96 Nasal Cannula 2.0 09/24/16 17:00 78 17 117/47 97 09/24/16 16:00 77 19 118/47 97 09/24/16 15:42 37.1 78 20 116/49 96 Nasal Cannula 2.0 09/24/16 15:40 Nasal Cannula 2.0 09/24/16 15:00 76 17 104/47 99 09/24/16 14:00 76 21 118/47 98 09/24/16 13:44 37.0 76 20 119/49 96 Nasal Cannula 2.0 09/24/16 13:00 76 15 119/49 95 09/24/16 12:00 108 20 114/58 95 09/24/16 11:30 Nasal Cannula 2.0 09/24/16 11:30 36.6 81 18 116/49 96 Nasal Cannula 2.0 09/24/16 11:00 77 23 116/44 97 09/24/16 10:00 75 18 112/45 97 09/24/16 09:30 79 18 122/45 96 Nasal Cannula 2.0 09/24/16 09:00 78 16 122/45 96 09/24/16 08:00 82 17 123/53 96 09/24/16 07:52 36.9 76 20 116/50 96 Nasal Cannula 2.0 09/24/16 07:30 Nasal Cannula 2.0 09/24/16 07:21 77 18 116/50 96 09/24/16 07:00 84 17 125/48 95 09/24/16 06:00 36.7 84 16 127/51 96 Nasal Cannula 2.0 09/24/16 05:00 81 16 134/53 97 Nasal Cannula 2.0 09/24/16 04:38 96 Nasal Cannula 2.0 09/24/16 04:00 74 16 148/59 97 Nasal Cannula 2.0 09/24/16 03:00 78 16 147/54 96 Nasal Cannula 2.0 09/24/16 02:00 83 16 134/57 95 Nasal Cannula 2.0 09/24/16 01:00 87 18 145/59 96 Nasal Cannula 2.0 09/24/16 00:24 96 Nasal Cannula 2.0 09/24/16 00:00 36.7 80 16 147/54 96 Nasal Cannula 2.0 09/23/16 23:00 76 21 138/50 96 Nasal Cannula 2.0 09/23/16 22:00 36.7 81 18 130/52 95 Nasal Cannula 2.0 09/23/16 21:00 88 17 130/51 94 Nasal Cannula 2.0 09/23/16 20:03 96 Nasal Cannula 2.0 09/23/16 20:00 36.7 90 20 130/55 95 Nasal Cannula 2.0 09/23/16 19:00 90 20 138/51 95 Nasal Cannula 2.0 Lab Results: Results Past 24 Hours Test 09/24/16 06:45 Range/Units White Blood Count 27.85 4.8-10.8 K/uL Red Blood Count 3.00 4.2-5.4 M/uL Hemoglobin 8.5 12.0-16.0 g/dL Hematocrit 25.1 37-47 % Mean Corpuscular Volume 83.7 80-100 fL Mean Corpuscular Hemoglobin 28.3 25-34 pg Mean Corpuscular Hemoglobin Concent 33.9 32-36 g/dl Platelet Count 135 130-400 K/uL Mean Platelet Volume 10.2 7.4-10.4 fL RDW Standard Deviation 49.4 36.4-46.3 fL RDW Coefficient of Variation 16.3 11.5-14.5 % Nucleated RBC Absolute Count (auto) 0.05 0-0 K/uL Neutrophils % (Manual) 79.2 % Lymphocytes % (Manual) 5.2 % Monocytes % (Manual) 5.2 % Basophils % (Manual) 1.7 % Metamyelocytes % 7.8 % Myelocytes % 0.9 % Nucleated Red Blood Cells % 0.2 % Neutrophils # (Manual) 22.06 1.4-6.5 K/uL Total Absolute Neutrophils 22.06 1.4-6.5 K/uL Lymphocytes # (Manual) 1.45 1.2-3.4 K/uL Total Absolute Lymphocytes 1.45 1.2-3.4 K/uL Monocytes # (Manual) 1.45 0.11-0.59 K/uL Basophils # (Manual) 0.47 0-0.2 K/uL Metamyelocytes # 2.17 0-0 K/uL Myelocytes # 0.25 0-0 K/uL Microcytosis PRESENT Target Cells 1+ Venous Blood pH 7.38 7.36-7.41 Venous Blood Partial Pressure CO2 46 38.0-50.0 mmHg Venous Blood Partial Pressure O2 50 mmHg Venous Blood HCO3 27 mmol/L Venous Blood Oxygen Saturation 81.2 % Venous Blood Base Excess 1.4 mmol/L Sodium Level 138 136-145 mmol/L Potassium Level 3.9 3.5-5.1 mmol/L Chloride Level 102 98-107 mmol/L Carbon Dioxide Level 28 21-32 mmol/L Anion Gap 8.0 3-11 mmol/L Blood Urea Nitrogen 65 7-18 mg/dl Creatinine 4.40 0.60-1.20 mg/dl Est Creatinine Clear Calc Drug Dose 13.7 ml/min Estimated GFR () 10.9 Estimated GFR (Non- 9.4 BUN/Creatinine Ratio 14.9 10-20 Random Glucose 113 70-99 mg/dl Calcium Level 8.1 8.5-10.1 mg/dl Phosphorus Level 3.9 2.5-4.9 mg/dl Magnesium Level 2.4 1.8-2.4 mg/dl Microbiology Results 09/23/16 Fungal Smear - Final, Resulted 09/23/16 Fungal Culture, Resulted Pending
[2016-09-24] MEDS: FENTANYL CITRATE INJ 50 MCG/1 ML 2 ML VIAL IV PRN (20:06)
[2016-09-24] MEDS: MICONAZOLE NITRATE POWDER 43 GM EXT PRN (20:12)
[2016-09-24] MEDS ORDERED: NURSING VERBAL MED ORDER ONE (23:45)
[2016-09-25] VITALS (23 sets, daily range): BP systolic 105–163; BP diastolic 44–69; PULSE 79–93; TEMP 36.6–37.6; O2SAT 94–100
[2016-09-25] MEDS: FENTANYL CITRATE INJ 50 MCG/1 ML 2 ML VIAL IV PRN ×2 (00:50→04:10)
[2016-09-25 05:47] LABS: BUN/CREATININE RATIO 15.3 (10-20); CALCIUM 7.6 mg/dl (8.5-10.1); CREATININE 3.7 mg/dl (0.60-1.20); MAGNESIUM 2.2 mg/dl (1.8-2.4); POTASSIUM 3.9 mmol/L (3.5-5.1)
[2016-09-25 05:50] LABS: HEMATOCRIT 21.7 % (37-47); MEAN CELL VOLUME 86.5 fL (80-100); MEAN CORPUSCULAR HEMOGLOBIN 30.3 pg (25-34); MEAN PLATELET VOLUME 10.2 fL (7.4-10.4); PLATELET COUNT 130 K/uL (130-400); RED BLOOD COUNT 2.51 M/uL (4.2-5.4); WHITE BLOOD COUNT 32.62 K/uL (4.8-10.8)
[2016-09-25 05:51] LABS: COMPLETE YES; EOSINOPHIL % 3.5 %; LYMPH ABS # 2.54 K/uL (1.2-3.4); LYMPHOCYTE % 7.8 %; METAMYELOCYTE % 4.3 %; NEUTROPHILS % 72.2 %; PHOSPHORUS 2.6 mg/dl (2.5-4.9); TARGET CELLS 1+
[2016-09-25] MEDS: BOOST BREEZE NUTRITION DRINK 1 BOX PO SCH ×2 (07:30→17:00)
[2016-09-25] MEDS: ACETAMINOPHEN IV 650 MG in EMPTY BAG 0 ML IV PRN ×2 (07:31→19:26)
[2016-09-25] MEDS: CHOLECALCIFEROL 1000 INTER.UNIT TAB PO SCH (07:31)
[2016-09-25] MEDS: VITAMIN B COMPLEX TAB PO SCH (07:31)
[2016-09-25] MEDS: HEPARIN SOD 5000 UNIT/0.5 ML CARP SQ SCH ×2 (07:33→16:19)
[2016-09-25] MEDS: PANTOprazole INJ 40 MG in SYRINGE 0 ML IV SCH ×2 (07:34→21:48)
--- NOTE | 2016-09-25 08:10 | Progress Note ---
Progress Note Date of Service Sep 25, 2016. Progress Note would like to hole off on permcath insertion at this time.
--- NOTE | 2016-09-25 08:57 | PROGRESS NOTE ---
DATE: 09/25/2016 SUBJECTIVE: A 70-year-old white female 3 weeks out from a total hip in about 6 days out from an I\T\D for infection. She has an MRSA infection. Seems she is doing much better now after undergoing dialysis. She is much more awake, alert and responsive. Still fairly edematous. Denies any real new complaints. She kind of aches all over. OBJECTIVE: VITAL SIGNS: Temperature 37.0. Vital signs stable. EXTREMITIES: Examination of her left hip reveals the leg to be well aligned. She continues to have diffuse edema in her lower extremities. Her incision is well approximated. There continues to be moderate amount of serosanguineous drainage, mostly serous. She can dorsiflex and plantarflex her foot appropriately. She is neurologically intact. LABORATORY DATA: Hemoglobin is 10.6, hematocrit 21.7. White cell count 32.62. Electrolytes are stable. Creatinine 3.70. Bilirubin is improved as well as her AST and liver function test. ASSESSMENT: A 70-year-old female 3 weeks out from a total hip replacement complicated by acute postoperative infection now 6 days out from I\T\D. She has multiple complicating factors including acute renal failure, poor-nutritional status, elevated liver function tests, which has improved significantly. She is doing much better now that she is getting dialysis and much more awake, alert and oriented. She continues to have elevated white cell count of unclear etiology. I do not think that this comes from her hip as she did not have a real bad hip infection and only washed this out and she has been on antibiotics postop. PLAN: From the orthopedic standpoint, we do once again like to mobilize her as soon as possible. I will continue a routine wound care. She is to continue on daptomycin. It would be nice to add rifampin again if possible, but will let that up to the GI doctors. It clearly helps with a prosthesis-related infections. Will continue with routine wound management. DVT prophylaxis including thigh-high TEDs, SCDs, and subQ heparin. With her nutritional parameters and large size, this wound may drain for another week before it stops. Will continue to check her daily. Any questions can be directed to me at [phone]. MTDD
[2016-09-25] MEDS ORDERED: PIPERACILL/TAZOBAC IV 4.5 GM in DEXTROSE 5% 100ML 100 ML IV ONE (10:00)
--- NOTE | 2016-09-25 10:31 | Critical Care Progress Note ---
Critical Care Progress Note Date of Service Sep 25, 2016. ICU Day ICU Day Number: [address] Santillan Subjective no complaints of dyspnea, chest pain. Objective General Appearance: obese Head: normocephalic Eyes: PERRLA Neck: no tenderness Respiratory: (diminished) throughout Cardiovasular: regular rate/rhythm, no JVD, other (diffusely edematous) Abdomen: other (bowel sounds ok. Obese. Generous panus) Upper Extremities: edema Lower Extremities: edema Neuro: Much more interactive today and alert Current SOFA Score SOFA Score Response (Comments) Value Platelets (x10) < 150 1 Creatinine (mg/dL) 3.5 - 4.9 3 Total 4 Previous SOFA Scores 8 09/23/2016; 6 09/24/2016 Assessment & Plan PLAN: Neuro: Encephalopathy * Significant improvement, avoid narcotic medications * Restarted Prozac 09/25/2016 Resp: Pulmonary toilet CV: History of dobutamine stress echo in 2016 results reviewed Fluids/Renal: Acute renal failure. * Temporary Vas-Cath placed by Dr. Zurita * Noticed today indicate holding off permacath, canceled nothing by mouth order for midnight this evening * Has been tolerating hemodialysis ID: Infectious disease following, urine culture groin Shraddha, ordered fungal blood culture at risk for fungemia Probable deep infection of left hip status post debridement and poly-exchange * Daptomycin * Rifampin previously held due to elevated LFTs * LFTs at baseline adding rifampin 300 mg twice a day * Added Zosyn secondary to organisms from urine and worsening clinical status * Second urine obtained September 21 was obtained after she had been started on broad-spectrum antibiotics in the emergency department * Had 2 days of effective treatment of Zosyn, converting to Rocephin treatment length of 14 days * Sevilla catheter removed yesterday still consider complicated urinary tract infection GI/Nutrition: Abdominal pain: Possible constipation versus ileus\ * Colace 100 mg twice a day for constipation * Nasogastric tube in place Will start trickle feeds with attempts to progress to goal * Viper body weight: 52.4 kg, actual body weight 116.5 kg, adjusted body weight 77.8 kg * NOVASOURCE RENAL trickle at 15 ml/hour increase in goal of 30 ML's per hour based on ideal body weight * Morbid obesity * Continue NG tube feedings at this point * Speech therapy consult * Additional vitamins and minerals via nasogastric tube Heme: Thrombocytopenia, hit panel negative * Bilateral venous Dopplers negative 09/23/2016 * Heparin 5000 units 3 times a day subcutaneous for DVT prophylaxis Endocrine: blood sugars within acceptable limits Psychiatry: History of bipolar disorder on Depakote ER and Prozac and gabapentin and Ativan * Will start Prozac * Holding Depakote ER in the setting of elevated LFTs and need for formal swallow evaluation as medication cannot be crushed Occupational therapy and physical therapy consult. 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 Data Medications: Current Inpatient Medications Medications (Trade) Dose Ordered Sig/Quan Route Start Time Stop Time Status Last Admin Dose Admin Cholecalciferol (Vitamin D Tab) 4,000 inter.unit QAM PO 09/18/16 09:00 10/18/16 08:59 09/25/16 07:31 4,000 INTER.UNIT Vitamin B Complex (Vitamin B Complex) 1 tab DAILY PO 09/18/16 09:00 10/18/16 08:59 09/25/16 07:31 1 TAB Miscellaneous Information (Order Awaiting Action) 1 ea QS N/A 09/17/16 16:00 10/17/16 15:59 Acetaminophen (Tylenol Tab) 650 mg Q6H PRN PO 09/18/16 08:15 10/18/16 08:14 09/20/16 02:00 650 MG Daptomycin (Consult) 1 ea UD PRN N/A 09/19/16 08:30 10/19/16 08:29 Miconazole Nitrate (Desenex Powder) 1 appln PRN PRN EXT 09/20/16 15:15 10/20/16 15:14 09/24/16 20:12 1 APPLN Enteral Nutritional Formula (Boost Breeze Nutritional Drink) 1 box [id number] PO 09/21/16 17:00 10/21/16 16:59 Piperacillin Sod/ Tazobactam Sod 1 ea 1 ea UD PRN N/A 09/22/16 09:15 10/22/16 09:14 Daptomycin 650 mg/ Sodium Chloride 63 ml @ 120 mls/hr Q48H IV 09/23/16 16:00 11/02/16 08:59 09/23/16 17:19 120 MLS/HR Acetaminophen/ Empty Bag (Ofirmev Iv/ Empty Iv Bag 100ml) 65 ml @ 260 mls/hr Q6H PRN IV 09/22/16 16:30 10/22/16 16:29 09/25/16 07:31 260 MLS/HR Heparin Sodium (Porcine) (Heparin Sq 5000 Unit/0.5ml) 5,000 unit Q8H SQ 09/23/16 16:00 10/23/16 15:59 09/25/16 07:33 5,000 UNIT Fentanyl Citrate 50 mcg 50 mcg Q2H PRN IV 09/23/16 14:30 10/07/16 14:29 09/25/16 04:10 50 MCG Pantoprazole Sodium/Syringe (Protonix Inj/ Syringe) 10 ml @ 5 mls/min DAILY@21 IV 09/23/16 21:00 10/23/16 20:59 09/25/16 07:34 5 MLS/MIN Enteral Nutritional Formula (Novasource Renal) 1,000 ml UD PRN PO 09/24/16 09:00 10/24/16 08:59 Heparin Sodium (Porcine) (Heparin 10 Unit/ ml 5 ml Flush) 5 ml PRN PRN FLUSH 09/24/16 15:15 10/24/16 15:14 I & O: 24-Hour Column 09/25/16 08:00 Intake Total 1037 ml Output Total 2225 ml Balance -1188 ml Vital Signs: Date Time Temp Pulse Resp B/P Pulse Ox O2 Delivery O2 Flow Rate FiO2 09/25/16 08:10 37.0 09/25/16 07:30 Nasal Cannula 2.0 09/25/16 07:30 37.6 93 16 130/50 95 Nasal Cannula 2.0 09/25/16 06:00 82 16 123/47 96 Nasal Cannula 2.0 09/25/16 04:00 37.6 91 19 107/62 94 Nasal Cannula 2.0 09/25/16 04:00 Nasal Cannula 2.0 09/25/16 02:00 86 18 123/44 99 Nasal Cannula 2.0 09/25/16 01:20 37.0 84 114/47 09/25/16 00:45 91 105/59 09/25/16 00:30 86 111/50 09/25/16 00:15 87 114/49 09/25/16 00:00 85 107/48 09/25/16 00:00 36.9 84 16 107/48 99 Nasal Cannula 2.0 09/25/16 00:00 Nasal Cannula 2.0 09/24/16 23:45 86 113/49 09/24/16 23:30 84 111/46 09/24/16 23:15 84 116/52 09/24/16 23:00 82 115/48 09/24/16 22:45 85 119/49 09/24/16 22:30 80 113/47 09/24/16 22:15 84 101/41 09/24/16 22:00 77 16 134/52 100 Nasal Cannula 2.0 09/24/16 21:55 36.9 78 134/52 09/24/16 20:00 Nasal Cannula 2.0 09/24/16 20:00 37.1 82 18 132/54 96 Nasal Cannula 2.0 09/24/16 18:00 76 20 117/47 96 Nasal Cannula 2.0 09/24/16 17:00 78 17 117/47 97 09/24/16 16:00 77 19 118/47 97 09/24/16 15:42 37.1 78 20 116/49 96 Nasal Cannula 2.0 09/24/16 15:40 Nasal Cannula 2.0 09/24/16 15:00 76 17 104/47 99 09/24/16 14:00 76 21 118/47 98 09/24/16 13:44 37.0 76 20 119/49 96 Nasal Cannula 2.0 09/24/16 13:00 76 15 119/49 95 09/24/16 12:00 108 20 114/58 95 09/24/16 11:30 Nasal Cannula 2.0 09/24/16 11:30 36.6 81 18 116/49 96 Nasal Cannula 2.0 09/24/16 11:00 77 23 116/44 97 09/24/16 10:00 75 18 112/45 97 09/24/16 09:30 79 18 122/45 96 Nasal Cannula 2.0 Laboratory Results: Last 24 Hours Test 09/24/16 23:55 09/25/16 05:03 09/25/16 05:07 09/25/16 05:59 Bedside Glucose 126 mg/dl 152 mg/dl 130 mg/dl White Blood Count 32.62 K/uL Red Blood Count 2.51 M/uL Hemoglobin 7.6 g/dL Hematocrit 21.7 % Mean Corpuscular Volume 86.5 fL Mean Corpuscular Hemoglobin 30.3 pg Mean Corpuscular Hemoglobin Concent 35.0 g/dl Platelet Count 130 K/uL Mean Platelet Volume 10.2 fL RDW Standard Deviation 52.0 fL RDW Coefficient of Variation 16.4 % Nucleated RBC Absolute Count (auto) 0.08 K/uL Neutrophils % (Manual) 72.2 % Lymphocytes % (Manual) 7.8 % Monocytes % (Manual) 5.2 % Eosinophils % (Manual) 3.5 % Metamyelocytes % 4.3 % Myelocytes % 7.0 % Nucleated Red Blood Cells % 0.2 % Neutrophils # (Manual) 23.55 K/uL Total Absolute Neutrophils 23.55 K/uL Lymphocytes # (Manual) 2.54 K/uL Total Absolute Lymphocytes 2.54 K/uL Monocytes # (Manual) 1.70 K/uL Eosinophils # (Manual) 1.14 K/uL Metamyelocytes # 1.40 K/uL Myelocytes # 2.28 K/uL Basophilic Stippling 1+ Target Cells 1+ Sodium Level 141 mmol/L Potassium Level 3.9 mmol/L Chloride Level 103 mmol/L Carbon Dioxide Level 31 mmol/L Anion Gap 7.0 mmol/L Blood Urea Nitrogen 57 mg/dl Creatinine 3.70 mg/dl Est Creatinine Clear Calc Drug Dose 16.6 ml/min Estimated GFR () 13.4 Estimated GFR (Non- 11.6 BUN/Creatinine Ratio 15.3 Random Glucose 137 mg/dl Calcium Level 7.6 mg/dl Phosphorus Level 2.6 mg/dl Magnesium Level 2.2 mg/dl Total Bilirubin 0.8 mg/dl Direct Bilirubin 0.5 mg/dl Aspartate Amino Transf (AST/SGOT) 22 U/L Alanine Aminotransferase (ALT/SGPT) 21 U/L Alkaline Phosphatase 227 U/L Total Protein 4.9 gm/dl Albumin 1.3 gm/dl
--- NOTE | 2016-09-25 10:43 | DIAGNOSTIC IMAGING REPORT ---
KUB CLINICAL HISTORY: Possible ileus. COMPARISON STUDY: KUB September 15, 2016. FINDINGS: Abdominal and pelvic surgical clips are noted as well as a partially visualized left hip arthroplasty. The tip of the nasogastric tube projects over the pulmonary embolus. Bowel gas pattern is normal. The borderline dilated loops of small bowel shown on exam of September 23, 2016 are no longer visualized by radiography. IMPRESSION: 1. No evidence for a bowel obstruction. Normal bowel gas pattern. 2. Tip of nasogastric tube projects over the pylorus. Electronically signed by: Norm Mena M.D. 09/25/2016 10:42 AM Dictated Date/Time: 09/25/2016 10:40 AM
[2016-09-25] MEDS ORDERED: CEFTRIAXONE SOD INJ 1,000 MG in DEXTROSE 5% 50ML 50 ML IV ONE (11:00)
[2016-09-25] MEDS ORDERED: RIFAMPIN 300 MG CAP PO ONE (11:15)
[2016-09-25] MEDS ORDERED: MULTIVITAMINS W/MINERALS 15ML UDP PO ONE (11:15)
[2016-09-25] MEDS ORDERED: ASCORBIC ACID 500 MG TAB PO ONE (11:15)
[2016-09-25] MEDS ORDERED: FLUOXETINE HCL 20 MG/5 ML UDP PO ONE (11:15)
--- NOTE | 2016-09-25 11:38 | Nephrology Progress Note ---
Nephrology Progress Note Date of Service: Sep 25, 2016. Subjective tolerated 2.2L UF yesterday w/ HD; kaur out and bladder scan thsi am w/ 46 mL urine; wbc cont to climb; a bit more interactive but still lethargic; for transfer out of icu today has NG and on novosource Objective Date Time Temp Pulse Resp B/P Pulse Ox O2 Delivery O2 Flow Rate FiO2 09/25/16 11:14 Nasal Cannula 2.0 09/25/16 11:14 37.4 93 16 130/50 97 Nasal Cannula 2.0 09/25/16 09:30 37.0 81 16 123/52 97 Nasal Cannula 2.0 09/25/16 08:10 37.0 09/25/16 07:30 Nasal Cannula 2.0 09/25/16 07:30 37.6 93 16 130/50 95 Nasal Cannula 2.0 09/25/16 06:00 82 16 123/47 96 Nasal Cannula 2.0 09/25/16 04:00 37.6 91 19 107/62 94 Nasal Cannula 2.0 09/25/16 04:00 Nasal Cannula 2.0 09/25/16 02:00 86 18 123/44 99 Nasal Cannula 2.0 09/25/16 01:20 37.0 84 114/47 09/25/16 00:45 91 105/59 09/25/16 00:30 86 111/50 09/25/16 00:15 87 114/49 09/25/16 00:00 85 107/48 09/25/16 00:00 36.9 84 16 107/48 99 Nasal Cannula 2.0 09/25/16 00:00 Nasal Cannula 2.0 09/24/16 23:45 86 113/49 09/24/16 23:30 84 111/46 09/24/16 23:15 84 116/52 09/24/16 23:00 82 115/48 09/24/16 22:45 85 119/49 09/24/16 22:30 80 113/47 09/24/16 22:15 84 101/41 09/24/16 22:00 77 16 134/52 100 Nasal Cannula 2.0 09/24/16 21:55 36.9 78 134/52 09/24/16 20:00 Nasal Cannula 2.0 09/24/16 20:00 37.1 82 18 132/54 96 Nasal Cannula 2.0 09/24/16 18:00 76 20 117/47 96 Nasal Cannula 2.0 09/24/16 17:00 78 17 117/47 97 09/24/16 16:00 77 19 118/47 97 09/24/16 15:42 37.1 78 20 116/49 96 Nasal Cannula 2.0 09/24/16 15:40 Nasal Cannula 2.0 09/24/16 15:00 76 17 104/47 99 09/24/16 14:00 76 21 118/47 98 09/24/16 13:44 37.0 76 20 119/49 96 Nasal Cannula 2.0 09/24/16 13:00 76 15 119/49 95 09/24/16 12:00 108 20 114/58 95 Physical Exam: General Appearance: WD/WN, no apparent distress, + obese, very lethargic, on 2L02NC Eyes: nonicgteric ENT: hearing grossly normal, + pertinent finding (dry MM); NGT w/ TF funning Neck: supple Respiratory/Chest: lungs clear, no respiratory distress, no accessory muscle use, + decreased breath sounds Cardiovascular: no edema, RRR, + systolic murmur Abdomen: normal bowel sounds, soft (no kaur; NT abd) Extremities: 2-3+ peripheral/dependent edema nuvia BLE, L hip wound w/ no drains/ vacs Neurologic/Psych: lethargic / challenging to arouse for very long Skin: no jaundice, warm/dry, no rash; BL heel ulcers Current Inpatient Medications Medications (Trade) Dose Ordered Sig/Quan Route Start Time Stop Time Status Last Admin Dose Admin Cholecalciferol (Vitamin D Tab) 4,000 inter.unit QAM PO 09/18/16 09:00 10/18/16 08:59 09/25/16 07:31 4,000 INTER.UNIT Vitamin B Complex (Vitamin B Complex) 1 tab DAILY PO 09/18/16 09:00 10/18/16 08:59 09/25/16 07:31 1 TAB Miscellaneous Information (Order Awaiting Action) 1 ea QS N/A 09/17/16 16:00 10/17/16 15:59 Acetaminophen (Tylenol Tab) 650 mg Q6H PRN PO 09/18/16 08:15 10/18/16 08:14 09/20/16 02:00 650 MG Daptomycin (Consult) 1 ea UD PRN N/A 09/19/16 08:30 10/19/16 08:29 Miconazole Nitrate (Desenex Powder) 1 appln PRN PRN EXT 09/20/16 15:15 10/20/16 15:14 09/24/16 20:12 1 APPLN Enteral Nutritional Formula 1 box 1 box [id number] PO 09/21/16 17:00 10/21/16 16:59 Daptomycin 650 mg/ Sodium Chloride 63 ml @ 120 mls/hr Q48H IV 09/23/16 16:00 11/02/16 08:59 09/23/16 17:19 120 MLS/HR Acetaminophen/ Empty Bag (Ofirmev Iv/ Empty Iv Bag 100ml) 65 ml @ 260 mls/hr Q6H PRN IV 09/22/16 16:30 10/22/16 16:29 09/25/16 07:31 260 MLS/HR Heparin Sodium (Porcine) 5000 unit 5,000 unit Q8H SQ 09/23/16 16:00 10/23/16 15:59 09/25/16 07:33 5,000 UNIT Pantoprazole Sodium/Syringe (Protonix Inj/ Syringe) 10 ml @ 5 mls/min DAILY@09,21 IV 09/23/16 21:00 10/23/16 20:59 09/25/16 07:34 5 MLS/MIN Enteral Nutritional Formula (Novasource Renal) 1,000 ml UD PRN PO 09/24/16 09:00 10/24/16 08:59 Heparin Sodium (Porcine) (Heparin 10 Unit/ ml 5 ml Flush) 5 ml PRN PRN FLUSH 09/24/16 15:15 10/24/16 15:14 Fluoxetine HCl (Prozac Soln) 20 mg QAM PO 09/26/16 09:00 10/26/16 08:59 Multivitamins Therapeutic (Cerovite Liquid) 15 ml QAM PO 09/26/16 09:00 10/26/16 08:59 Ascorbic Acid (Vitamin C Tab) 1,000 mg QAM PO 09/26/16 09:00 10/26/16 08:59 Cholecalciferol (Vitamin D Tab) 1,000 inter.unit QAM PO 09/26/16 09:00 10/26/16 08:59 Docusate Sodium 100 mg 100 mg BID PO 09/25/16 21:00 10/25/16 20:59 Ceftriaxone Sodium 1000 mg/ Dextrose 60 ml @ 100 mls/hr DAILY IV 09/26/16 09:00 09/29/16 09:35 Ceftriaxone Sodium/Dextrose (Rocephin Inj/D5 50ml) 60 ml @ 100 mls/hr TODAY@1100 ONCE IV 09/25/16 11:00 09/25/16 11:35 Rifampin (Rifadin Cap) 300 mg BID PO 09/25/16 21:00 11/06/16 08:59 Last 24 Hours Test 09/24/16 23:55 09/25/16 05:03 09/25/16 05:07 09/25/16 05:59 Bedside Glucose 126 mg/dl 152 mg/dl 130 mg/dl White Blood Count 32.62 K/uL Red Blood Count 2.51 M/uL Hemoglobin 7.6 g/dL Hematocrit 21.7 % Mean Corpuscular Volume 86.5 fL Mean Corpuscular Hemoglobin 30.3 pg Mean Corpuscular Hemoglobin Concent 35.0 g/dl Platelet Count 130 K/uL Mean Platelet Volume 10.2 fL RDW Standard Deviation 52.0 fL RDW Coefficient of Variation 16.4 % Nucleated RBC Absolute Count (auto) 0.08 K/uL Neutrophils % (Manual) 72.2 % Lymphocytes % (Manual) 7.8 % Monocytes % (Manual) 5.2 % Eosinophils % (Manual) 3.5 % Metamyelocytes % 4.3 % Myelocytes % 7.0 % Nucleated Red Blood Cells % 0.2 % Neutrophils # (Manual) 23.55 K/uL Total Absolute Neutrophils 23.55 K/uL Lymphocytes # (Manual) 2.54 K/uL Total Absolute Lymphocytes 2.54 K/uL Monocytes # (Manual) 1.70 K/uL Eosinophils # (Manual) 1.14 K/uL Metamyelocytes # 1.40 K/uL Myelocytes # 2.28 K/uL Basophilic Stippling 1+ Target Cells 1+ Sodium Level 141 mmol/L Potassium Level 3.9 mmol/L Chloride Level 103 mmol/L Carbon Dioxide Level 31 mmol/L Anion Gap 7.0 mmol/L Blood Urea Nitrogen 57 mg/dl Creatinine 3.70 mg/dl Est Creatinine Clear Calc Drug Dose 16.6 ml/min Estimated GFR () 13.4 Estimated GFR (Non- 11.6 BUN/Creatinine Ratio 15.3 Random Glucose 137 mg/dl Calcium Level 7.6 mg/dl Phosphorus Level 2.6 mg/dl Magnesium Level 2.2 mg/dl Total Bilirubin 0.8 mg/dl Direct Bilirubin 0.5 mg/dl Aspartate Amino Transf (AST/SGOT) 22 U/L Alanine Aminotransferase (ALT/SGPT) 21 U/L Alkaline Phosphatase 227 U/L Total Protein 4.9 gm/dl Albumin 1.3 gm/dl Assessment & Plan 70 y/o F w/ anuric acute renal failure peak creatinine 7.1 after readmission w/ 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 s/p debridement and poly-exchange 09/19. Electrolytes acceptable for now; anemia acceptable. ALBERT;anuric multifactorial ATN currently dialysis dependent from contrast induced nephropathy in pt at risk for this w/ concurrent NSAID use and w/ elevated random vancomycin level, hypotension/ ongoing fever/sepsis. -daily bmp, cbc -cont novosource -next HD tentatively for 09/26 -vascular prefers to delay TDC > reasonable given climbing wbc; recommend touching base again w/ ID tomorrow for plan Decreased MS -per primary service; better than yesterday Infected L total hip -s/p 09/19 I&D/ poly-exchange; surgery and inf dzs following >>VTE prophylaxis per ortho and primary service Appreciate consult; will follow with you. Care coordiated w/ Dr. Zurita.
[2016-09-25] MEDS: DAPTOmycin IV 650 MG in SODIUM CHLORIDE 0.9% 50ML 50 ML IV SCH (16:17)
--- NOTE | 2016-09-25 17:38 | Progress Note ---
Internal Med Progress Note Date of Service: Sep 25, 2016. Provider Documentation: SUBJECTIVE: more alert and awake today can open eyes can tell name and date of , knows the month and year and tells she is in [facility] says has some pain in hip afebrile hemodynamically stable OBJECTIVE: Vital Signs-as noted below Exam: General-Drowsy but arousable ENT-normal hearing Neck-no neck masses Lungs-cta b/l no wheezing or crackles Heart-s1 and s2 heard regular rate and rhythm no murmurs Abdomen-soft bowel sounds present non tender no distension Extremities- s/p left hip I and D skin erythematous rash in groins. edematous Neuro-Drowsy but arousable oriented x 3 Lab data as noted below. ASSESSMENT & PLAN: 70F presented with left hip infection post recent left EFREM and was s/p I and D. Cultures growing MRSA. Hospital day complicated by ARF, unrespnsiveness after procedure, possible uremic encephalopathy and currently slowly improving with dialysis LEFT HIP CELLULITIS and infection from RECENT LEFT EFREM Sepsis from above s/p left EFREM 09/[address] Leavitt, discharged on 09/06 to [facility] for rehab; presented with fever and generalized weakness leukocytosis and febrile s/p Vanco and Zosyn in the ER wound cx mrsa s/p I and D by ortho and deep cx growing staph was placed on iv daptomycin and rifampin ID on board and appreciate inputs added Zosyn for uti cx grew e.coli and changed to Rocephin today 09/25/16 rifampin stopped secondary to elevated lfts's and restarted today as lft's improved at 300mg bid 09/25/16 worsening leukocytosis. Blood fungal cx negative will d/w ID duration of abx as per ID ALBERT Most likely contrast induced nephropathy, in the setting of infection on kaur catheter for accurate I/O's initially received fluids ct abd/pelvis unremarkable cr peaked to 7.1 09/22/16 nephrology on board nephrology initiated dialysis improving close monitor Encephalopathy metabolic from sepsis and ALBERT seems somewhat improved after dialysis more alert today will monitor ABNORMAL LFT's possibly due to underlying infection and medications liver ultrasound unremarkable ct scan unremarkable Consulted GI and appreciate inputs stopped rifampin improved restarted rifampin will f/u labs in am Acute blood loss ANEMIA Most likely due to blood loss from recent surgery, no signs of bleeding on iron replacement hb 8.5 will f/u labs Elevated INR inr 4.9 09/22/16 mostly from ongomig infection, medications and arf giving iv vitamin k resolved DEMENTIA, BIPOLAR on divalproex, donepezil, fluoxetine po meds on hold restarted fluoxetine today GERD PPI LEFT ABDOMINAL FOLD MACERATION mostly topical shweta on Mycogen cream wound care nurse consulted \ Psbo s/p ng tube resolved on toays kub 09/25/16 Nutrition started on tube feeds speech evaluation when more stable DVT PROPHYLAXIS Discontinued ASA 325mg BID given worsening renal function hep sub q for now CODE STATUS DNR DISPOSITION Transferred to Tele floor close monitor pt/ot when more stable social service for d/c planning Vital Signs: Date Time Temp Pulse Resp B/P Pulse Ox O2 Delivery O2 Flow Rate FiO2 09/25/16 16:08 37.1 82 20 136/69 100 Nasal Cannula 3.0 09/25/16 12:00 79 18 123/55 97 09/25/16 11:14 Nasal Cannula 2.0 09/25/16 11:14 37.4 93 16 130/50 97 Nasal Cannula 2.0 09/25/16 11:00 86 22 129/48 96 09/25/16 10:00 81 22 123/52 96 09/25/16 09:30 37.0 81 16 123/52 97 Nasal Cannula 2.0 09/25/16 09:00 89 17 132/62 95 09/25/16 08:10 37.0 09/25/16 08:00 91 20 105/58 94 09/25/16 07:30 Nasal Cannula 2.0 09/25/16 07:30 37.6 93 16 130/50 95 Nasal Cannula 2.0 09/25/16 07:00 91 20 130/50 95 09/25/16 06:00 82 16 123/47 96 Nasal Cannula 2.0 09/25/16 04:00 37.6 91 19 107/62 94 Nasal Cannula 2.0 09/25/16 04:00 Nasal Cannula 2.0 09/25/16 02:00 86 18 123/44 99 Nasal Cannula 2.0 09/25/16 01:20 37.0 84 114/47 09/25/16 00:45 91 105/59 09/25/16 00:30 86 111/50 09/25/16 00:15 87 114/49 09/25/16 00:00 85 107/48 09/25/16 00:00 36.9 84 16 107/48 99 Nasal Cannula 2.0 09/25/16 00:00 Nasal Cannula 2.0 09/24/16 23:45 86 113/49 09/24/16 23:30 84 111/46 09/24/16 23:15 84 116/52 09/24/16 23:00 82 115/48 09/24/16 22:45 85 119/49 09/24/16 22:30 80 113/47 09/24/16 22:15 84 101/41 09/24/16 22:00 77 16 134/52 100 Nasal Cannula 2.0 09/24/16 21:55 36.9 78 134/52 09/24/16 20:00 Nasal Cannula 2.0 09/24/16 20:00 37.1 82 18 132/54 96 Nasal Cannula 2.0 09/24/16 18:00 76 20 117/47 96 Nasal Cannula 2.0 Lab Results: Results Past 24 Hours Test 09/24/16 23:55 09/25/16 05:03 09/25/16 05:07 09/25/16 05:59 Range/Units Bedside Glucose 126 152 130 70-90 mg/dl White Blood Count 32.62 4.8-10.8 K/uL Red Blood Count 2.51 4.2-5.4 M/uL Hemoglobin 7.6 12.0-16.0 g/dL Hematocrit 21.7 37-47 % Mean Corpuscular Volume 86.5 80-100 fL Mean Corpuscular Hemoglobin 30.3 25-34 pg Mean Corpuscular Hemoglobin Concent 35.0 32-36 g/dl Platelet Count 130 130-400 K/uL Mean Platelet Volume 10.2 7.4-10.4 fL RDW Standard Deviation 52.0 36.4-46.3 fL RDW Coefficient of Variation 16.4 11.5-14.5 % Nucleated RBC Absolute Count (auto) 0.08 0-0 K/uL Neutrophils % (Manual) 72.2 % Lymphocytes % (Manual) 7.8 % Monocytes % (Manual) 5.2 % Eosinophils % (Manual) 3.5 % Metamyelocytes % 4.3 % Myelocytes % 7.0 % Nucleated Red Blood Cells % 0.2 % Neutrophils # (Manual) 23.55 1.4-6.5 K/uL Total Absolute Neutrophils 23.55 1.4-6.5 K/uL Lymphocytes # (Manual) 2.54 1.2-3.4 K/uL Total Absolute Lymphocytes 2.54 1.2-3.4 K/uL Monocytes # (Manual) 1.70 0.11-0.59 K/uL Eosinophils # (Manual) 1.14 0-0.5 K/uL Metamyelocytes # 1.40 0-0 K/uL Myelocytes # 2.28 0-0 K/uL Basophilic Stippling 1+ Target Cells 1+ Sodium Level 141 136-145 mmol/L Potassium Level 3.9 3.5-5.1 mmol/L Chloride Level 103 98-107 mmol/L Carbon Dioxide Level 31 21-32 mmol/L Anion Gap 7.0 3-11 mmol/L Blood Urea Nitrogen 57 7-18 mg/dl Creatinine 3.70 0.60-1.20 mg/dl Est Creatinine Clear Calc Drug Dose 16.6 ml/min Estimated GFR () 13.4 Estimated GFR (Non- 11.6 BUN/Creatinine Ratio 15.3 10-20 Random Glucose 137 70-99 mg/dl Calcium Level 7.6 8.5-10.1 mg/dl Phosphorus Level 2.6 2.5-4.9 mg/dl Magnesium Level 2.2 1.8-2.4 mg/dl Total Bilirubin 0.8 0.2-1 mg/dl Direct Bilirubin 0.5 0-0.2 mg/dl Aspartate Amino Transf (AST/SGOT) 22 15-37 U/L Alanine Aminotransferase (ALT/SGPT) 21 12-78 U/L Alkaline Phosphatase 227 45-117 U/L Total Protein 4.9 6.4-8.2 gm/dl Albumin 1.3 3.4-5.0 gm/dl
[2016-09-25] MEDS: NOVASOURCE RENAL 1000ML BAG PO PRN (19:27)
[2016-09-25] MEDS: MICONAZOLE NITRATE POWDER 43 GM EXT PRN (20:20)
[2016-09-25] MEDS ORDERED: PIPERACILL/TAZOBAC IV 4.5 GM in DEXTROSE 5% 100ML 100 ML IV SCH (21:00)
[2016-09-25] MEDS: RIFAMPIN 300 MG CAP PO SCH (21:48)
[2016-09-25] MEDS: DOCUSATE SODIUM 100 MG/10 ML UDC PO SCH (21:48)
[2016-09-26] VITALS (25 sets, daily range): BP systolic 92–145; BP diastolic 48–69; PULSE 80–90; TEMP 37–37.2; O2SAT 97–100
[2016-09-26] MEDS: HEPARIN SOD 5000 UNIT/0.5 ML CARP SQ SCH ×4 (00:06→23:53)
[2016-09-26] MEDS: ACETAMINOPHEN IV 650 MG in EMPTY BAG 0 ML IV PRN ×3 (01:22→18:42)
[2016-09-26 07:24] LABS: HEMATOCRIT 21.8 % (37-47); MEAN CORPUSCULAR HEMOGLOBIN 29.8 pg (25-34); MEAN CORPUSCULAR HGB CONC 33.5 g/dl (32-36); PLATELET COUNT 156 K/uL (130-400); RED BLOOD COUNT 2.45 M/uL (4.2-5.4); WHITE BLOOD COUNT 32.55 K/uL (4.8-10.8)
--- NOTE | 2016-09-26 07:43 | Nephrology Progress Note ---
Nephrology Progress Note Date of Service: September 26, 2016. Subjective 70 yo female with oliguric atn with third spacing of fluid who has had dialysis , monday and monday. pt overall much more awake compared to . kaur catheter removed and she urinated twice yesterday. pt knows her name, the year, the location, the president. states she is missing her top teeth and her mouth is sore. also complaining of neck pain from the pillow and pain in her left hip. Objective Date Time Temp Pulse Resp B/P Pulse Ox O2 Delivery O2 Flow Rate FiO2 09/26/16 07:24 37.2 88 18 132/68 100 3.0 09/26/16 04:00 97 Nasal Cannula 3.0 09/26/16 03:19 37.2 85 22 138/61 97 Nasal Cannula 3.0 09/26/16 00:00 99 Nasal Cannula 3.0 09/25/16 23:12 37.0 86 22 163/61 99 Nasal Cannula 3.0 09/25/16 20:00 98 Nasal Cannula 3.0 09/25/16 19:18 36.6 88 20 137/66 98 Nasal Cannula 3.0 09/25/16 17:47 100 Nasal Cannula 3.0 09/25/16 16:08 37.1 82 20 136/69 100 Nasal Cannula 3.0 09/25/16 12:00 79 18 123/55 97 09/25/16 11:14 Nasal Cannula 2.0 09/25/16 11:14 37.4 93 16 130/50 97 Nasal Cannula 2.0 09/25/16 11:00 86 22 129/48 96 09/25/16 10:00 81 22 123/52 96 09/25/16 09:30 37.0 81 16 123/52 97 Nasal Cannula 2.0 09/25/16 09:00 89 17 132/62 95 09/25/16 08:10 37.0 09/25/16 08:00 91 20 105/58 94 Physical Exam: General-aaox3 Eyes-no scleral icterus ENT-mmm, +ng tube Neck-supple Lungs-cta Heart-rrr Abdomen-bs+ s/nt Extremities-+2 edema in arms and legs, left hip wrapped Neuro-nonfocal Current Inpatient Medications Medications (Trade) Dose Ordered Sig/Quan Route Start Time Stop Time Status Last Admin Dose Admin Cholecalciferol (Vitamin D Tab) 4,000 inter.unit QAM PO 09/18/16 09:00 10/18/16 08:59 09/25/16 07:31 4,000 INTER.UNIT Vitamin B Complex (Vitamin B Complex) 1 tab DAILY PO 09/18/16 09:00 10/18/16 08:59 09/25/16 07:31 1 TAB Miscellaneous Information (Order Awaiting Action) 1 ea QS N/A 09/17/16 16:00 10/17/16 15:59 Acetaminophen (Tylenol Tab) 650 mg Q6H PRN PO 09/18/16 08:15 10/18/16 08:14 09/20/16 02:00 650 MG Daptomycin (Consult) 1 ea UD PRN N/A 09/19/16 08:30 10/19/16 08:29 Miconazole Nitrate (Desenex Powder) 1 appln PRN PRN EXT 09/20/16 15:15 10/20/16 15:14 09/25/16 20:20 1 APPLN Enteral Nutritional Formula 1 box 1 box [id number] PO 09/21/16 17:00 10/21/16 16:59 Daptomycin 650 mg/ Sodium Chloride 63 ml @ 120 mls/hr Q48H IV 09/23/16 16:00 11/02/16 08:59 09/25/16 16:17 120 MLS/HR Acetaminophen/ Empty Bag (Ofirmev Iv/ Empty Iv Bag 100ml) 65 ml @ 260 mls/hr Q6H PRN IV 09/22/16 16:30 10/22/16 16:29 09/26/16 01:22 260 MLS/HR Heparin Sodium (Porcine) 5000 unit 5,000 unit Q8H SQ 09/23/16 16:00 10/23/16 15:59 09/26/16 00:06 5,000 UNIT Pantoprazole Sodium/Syringe (Protonix Inj/ Syringe) 10 ml @ 5 mls/min DAILY@09,21 IV 09/23/16 21:00 10/23/16 20:59 09/25/16 21:48 5 MLS/MIN Enteral Nutritional Formula (Novasource Renal) 1,000 ml UD PRN PO 09/24/16 09:00 10/24/16 08:59 09/25/16 19:27 1,000 ML Heparin Sodium (Porcine) (Heparin 10 Unit/ ml 5 ml Flush) 5 ml PRN PRN FLUSH 09/24/16 15:15 10/24/16 15:14 Fluoxetine HCl (Prozac Soln) 20 mg QAM PO 09/26/16 09:00 10/26/16 08:59 Multivitamins Therapeutic (Cerovite Liquid) 15 ml QAM PO 09/26/16 09:00 10/26/16 08:59 Ascorbic Acid (Vitamin C Tab) 1,000 mg QAM PO 09/26/16 09:00 10/26/16 08:59 Cholecalciferol (Vitamin D Tab) 1,000 inter.unit QAM PO 09/26/16 09:00 10/26/16 08:59 Docusate Sodium 100 mg 100 mg BID PO 09/25/16 21:00 10/25/16 20:59 09/25/16 21:48 100 MG Ceftriaxone Sodium/Dextrose (Rocephin Inj/D5 50ml) 60 ml @ 100 mls/hr DAILY IV 09/26/16 09:00 09/29/16 09:35 Rifampin (Rifadin Cap) 300 mg BID PO 09/25/16 21:00 11/06/16 08:59 09/25/16 21:48 300 MG Heparin Sodium (Porcine) (Heparin Iv Bolus) 1,000 unit 0800 IV 09/26/16 08:00 09/26/16 18:00 Heparin Sodium (Porcine) 400 unit 400 unit Q1H IV 09/26/16 08:00 09/26/16 18:00 Epoetin Jensen/ Syringe (Procrit Inj/ Syringe) 0.6 ml @ 1 mls/min TODAY@0800 IV. 09/26/16 08:00 09/26/16 18:00 Last 24 Hours Test 09/26/16 04:44 09/26/16 06:17 Transferrin % Saturation % White Blood Count 32.55 K/uL Red Blood Count 2.45 M/uL Hemoglobin 7.3 g/dL Hematocrit 21.8 % Mean Corpuscular Volume 89.0 fL Mean Corpuscular Hemoglobin 29.8 pg Mean Corpuscular Hemoglobin Concent 33.5 g/dl Platelet Count 156 K/uL Mean Platelet Volume 10.0 fL RDW Standard Deviation 53.9 fL RDW Coefficient of Variation 16.7 % Nucleated RBC Absolute Count (auto) 0.05 K/uL Nucleated Red Blood Cells % 0.1 % Assessment & Plan [id number]-has a temporary dialysis catheter. would like to eventually obtain a tunneled dialysis catheter this week depending on her leukocytosis. blood cultures continue to be negative. pt is volume overloaded and would like to remove fluid on dialysis as bp tolerates. Anemia-on procrit to help raise the hg levels. could have an element of dilution as well. however, may need transfusion, defer to hospitalist.
[2016-09-26 07:55] LABS: COMPLETE YES; EOSINOPHIL % 3.5 %; LYMPH ABS # 2.31 K/uL (1.2-3.4); LYMPHOCYTE % 7.1 %; META ABS # 2.31 K/uL (0-0); METAMYELOCYTE % 7.1 %; MYELOCYTE % 7.1 %; NEUTROPHILS % 67.2 %; POLYCHROMASIA 1+
--- NOTE | 2016-09-26 07:58 | PROGRESS NOTE ---
DATE: 09/26/2016 SUBJECTIVE: A 70-year-old white female 1 week out from I\T\D of an infected left hip replacement. Continues to make some gradual improvements. She is a little bit more awake, alert and oriented every day I see her. She still mostly just moans. She does follow commands. OBJECTIVE: VITAL SIGNS: Temperature 37.2. Vital signs stable. PHYSICAL EXAMINATION: GENERAL: Reveals an elderly female who is lying in bed. She is awake and alert and follows commands. She just mostly moans with movement. EXTREMITIES: Examination of left hip reveals the dressing to be in place. Still some moderate serosanguineous drainage. Seems to be a little bit less each day. Her hip is located. NEUROLOGIC: She is neurologically intact. LABORATORY DATA: Hemoglobin 7.3. Hematocrit 21.8. White cell count 32.55. Electrolytes are pending. ASSESSMENT: A 70-year-old white female 1 week out from I\T\D of an infected left hip wound, making some very gradual improvements. Dialysis clearly helped her. Her white count is still elevated for unclear reasons. It is stable but elevated. She is anemic and might benefit from some blood. PLAN: From the orthopedic standpoint, it would be great to begin mobilizing her whenever possible. We will make sure PT/OT is consulted. She can weight bear as tolerated. Obey total hip precautions. Continue DVT prophylaxis including thigh-high TEDs, SCDs, and just continue using the subcu heparin. We will continue daptomycin and rifampin for her antibiotic treatment. We will continue wound care. I do not think there is much else to do at this point, but I will keep following her daily. Any orthopedic questions can be directed to me at [phone].
[2016-09-26] MEDS ORDERED: HEPARIN SOD (PORCINE) 1000 UNIT/ML 10 ML VIAL IV SCH ×2 (08:00)
[2016-09-26] MEDS ORDERED: EPOETIN ALFA INJ 12,000 UNITS in SYRINGE 0 ML IV. SCH (08:00)
[2016-09-26] MEDS ORDERED: EPOETIN ALFA 10,000 UNITS/ML VIAL IV. ONE (08:00)
[2016-09-26 08:10] LABS: BUN/CREATININE RATIO 16.6 (10-20); MAGNESIUM 2.5 mg/dl (1.8-2.4); POTASSIUM 4.1 mmol/L (3.5-5.1)
[2016-09-26 08:32] LABS: PHOSPHORUS 3.8 mg/dl (2.5-4.9)
[2016-09-26] MEDS: BOOST BREEZE NUTRITION DRINK 1 BOX PO SCH ×2 (09:00→17:00)
[2016-09-26] MEDS: CEFTRIAXONE SOD INJ 1,000 MG in DEXTROSE 5% 50ML 50 ML IV SCH (10:09)
--- NOTE | 2016-09-26 10:16 | Gastroenterology Progress Note ---
Progress Note Date of Service: September 26, 2016 Subjective Pt evaluation today including: conversation w/ patient, physical exam, chart review, lab review, review of studies, review of inpatient medication list Ms. Mccoy is a 70 yr old female who was admitted with a septic joint. She is awake, alert this morning. When asked, she tells me she has stomach discomfort - but isn't complaining of significant abdominal pain and is mildly distended and mildly tender throughout - with hyperactive BS. Double lumen nasogastric feeding tube in place receiving continuous enteral feedings. WBC elevated to Review of Systems Constitutional: No fever ENT: + pain on swallowing, No hearing loss Respiratory: No cough, No shortness of breath, No wheezing Cardiac: No chest pain Abdomen: + constipation, + odynophagia, + pain (mild, diffuse), + problem reported (tongue and mouth pain), No diarrhea, No nausea, No vomiting Musculoskeletal: No joint pain Female : No dysuria Neuro: No memory loss Endo: + fatigue Skin: + new/changing skin lesions (crusting lesions on the edges of the mouth) , No rash Medications Current Inpatient Medications Medications (Trade) Dose Ordered Sig/Quan Route Start Time Stop Time Status Last Admin Dose Admin Cholecalciferol (Vitamin D Tab) 4,000 inter.unit QAM PO 09/18/16 09:00 10/18/16 08:59 09/25/16 07:31 4,000 INTER.UNIT Vitamin B Complex (Vitamin B Complex) 1 tab DAILY PO 09/18/16 09:00 10/18/16 08:59 09/25/16 07:31 1 TAB Miscellaneous Information (Order Awaiting Action) 1 ea QS N/A 09/17/16 16:00 10/17/16 15:59 Acetaminophen (Tylenol Tab) 650 mg Q6H PRN PO 09/18/16 08:15 10/18/16 08:14 09/20/16 02:00 650 MG Daptomycin (Consult) 1 ea UD PRN N/A 09/19/16 08:30 10/19/16 08:29 Miconazole Nitrate (Desenex Powder) 1 appln PRN PRN EXT 09/20/16 15:15 10/20/16 15:14 09/25/16 20:20 1 APPLN Enteral Nutritional Formula 1 box 1 box [id number] PO 09/21/16 17:00 10/21/16 16:59 Daptomycin 650 mg/ Sodium Chloride 63 ml @ 120 mls/hr Q48H IV 09/23/16 16:00 11/02/16 08:59 09/25/16 16:17 120 MLS/HR Acetaminophen/ Empty Bag (Ofirmev Iv/ Empty Iv Bag 100ml) 65 ml @ 260 mls/hr Q6H PRN IV 09/22/16 16:30 10/22/16 16:29 09/26/16 09:51 260 MLS/HR Heparin Sodium (Porcine) 5000 unit 5,000 unit Q8H SQ 09/23/16 16:00 10/23/16 15:59 09/26/16 00:06 5,000 UNIT Pantoprazole Sodium/Syringe (Protonix Inj/ Syringe) 10 ml @ 5 mls/min DAILY@,21 IV 09/23/16 21:00 10/23/16 20:59 09/25/16 21:48 5 MLS/MIN Enteral Nutritional Formula (Novasource Renal) 1,000 ml UD PRN PO 09/24/16 09:00 10/24/16 08:59 09/25/16 19:27 1,000 ML Heparin Sodium (Porcine) (Heparin 10 Unit/ ml 5 ml Flush) 5 ml PRN PRN FLUSH 09/24/16 15:15 10/24/16 15:14 Fluoxetine HCl (Prozac Soln) 20 mg QAM PO 09/26/16 09:00 10/26/16 08:59 Multivitamins Therapeutic (Cerovite Liquid) 15 ml QAM PO 09/26/16 09:00 10/26/16 08:59 Ascorbic Acid (Vitamin C Tab) 1,000 mg QAM PO 09/26/16 09:00 10/26/16 08:59 Cholecalciferol (Vitamin D Tab) 1,000 inter.unit QAM PO 09/26/16 09:00 10/26/16 08:59 Docusate Sodium 100 mg 100 mg BID PO 09/25/16 21:00 10/25/16 20:59 09/25/16 21:48 100 MG Ceftriaxone Sodium/Dextrose (Rocephin Inj/D5 50ml) 60 ml @ 100 mls/hr DAILY IV 09/26/16 09:00 09/29/16 09:35 Rifampin (Rifadin Cap) 300 mg BID PO 09/25/16 21:00 11/06/16 08:59 09/25/16 21:48 300 MG Heparin Sodium (Porcine) (Heparin Iv Bolus) 1,000 unit 0800 IV 09/26/16 08:00 09/26/16 18:00 Heparin Sodium (Porcine) 400 unit 400 unit Q1H IV 09/26/16 08:00 09/26/16 18:00 Epoetin Jensen/ Syringe (Procrit Inj/ Syringe) 0.6 ml @ 1 mls/min TODAY@0800 IV. 09/26/16 08:00 09/26/16 18:00 Objective Vital Signs Date Time Temp Pulse Resp B/P Pulse Ox O2 Delivery O2 Flow Rate FiO2 09/26/16 07:24 37.2 88 18 132/68 100 3.0 09/26/16 04:00 97 Nasal Cannula 3.0 09/26/16 03:19 37.2 85 22 138/61 97 Nasal Cannula 3.0 09/26/16 00:00 99 Nasal Cannula 3.0 09/25/16 23:12 37.0 86 22 163/61 99 Nasal Cannula 3.0 09/25/16 20:00 98 Nasal Cannula 3.0 09/25/16 19:18 36.6 88 20 137/66 98 Nasal Cannula 3.0 09/25/16 17:47 100 Nasal Cannula 3.0 09/25/16 16:08 37.1 82 20 136/69 100 Nasal Cannula 3.0 09/25/16 12:00 79 18 123/55 97 09/25/16 11:14 Nasal Cannula 2.0 09/25/16 11:14 37.4 93 16 130/50 97 Nasal Cannula 2.0 09/25/16 11:00 86 22 129/48 96 Physical Exam General Appearance: + mild distress Neck: no JVD Respiratory/Chest: lungs clear Cardiovascular: regular rate, rhythm, no JVD, no murmur Abdomen: soft, + distended (mild), + tenderness (diffuse) Extremities: + swelling (mild dependent edema/anasarca) Neurologic/Psych: alert, normal mood/affect, oriented x 3 Skin: no jaundice Laboratory Results Last 24 Hours Test 09/26/16 06:17 White Blood Count 32.55 K/uL Red Blood Count 2.45 M/uL Hemoglobin 7.3 g/dL Hematocrit 21.8 % Mean Corpuscular Volume 89.0 fL Mean Corpuscular Hemoglobin 29.8 pg Mean Corpuscular Hemoglobin Concent 33.5 g/dl Platelet Count 156 K/uL Mean Platelet Volume 10.0 fL RDW Standard Deviation 53.9 fL RDW Coefficient of Variation 16.7 % Nucleated RBC Absolute Count (auto) 0.05 K/uL Neutrophils % (Manual) 67.2 % Lymphocytes % (Manual) 7.1 % Monocytes % (Manual) 8.0 % Eosinophils % (Manual) 3.5 % Metamyelocytes % 7.1 % Myelocytes % 7.1 % Nucleated Red Blood Cells % 0.1 % Neutrophils # (Manual) 21.87 K/uL Total Absolute Neutrophils 21.87 K/uL Lymphocytes # (Manual) 2.31 K/uL Total Absolute Lymphocytes 2.31 K/uL Monocytes # (Manual) 2.60 K/uL Eosinophils # (Manual) 1.14 K/uL Metamyelocytes # 2.31 K/uL Myelocytes # 2.31 K/uL Polychromasia 1+ Sodium Level 138 mmol/L Potassium Level 4.1 mmol/L Chloride Level 101 mmol/L Carbon Dioxide Level 28 mmol/L Anion Gap 9.0 mmol/L Blood Urea Nitrogen 83 mg/dl Creatinine 5.00 mg/dl Est Creatinine Clear Calc Drug Dose 12.0 ml/min Estimated GFR () 9.3 Estimated GFR (Non- 8.0 BUN/Creatinine Ratio 16.6 Random Glucose 109 mg/dl Calcium Level 8.0 mg/dl Phosphorus Level 3.8 mg/dl Magnesium Level 2.5 mg/dl Iron Level 43 mcg/dl Total Iron Binding Capacity 173 mcg/dl Transferrin 141 mg/dl Transferrin % Saturation 22 % Assessment and Plan Ms. Mccoy is a 70 yr old female with 1. Elevated LFTs, now resolved caused by: Drug induced liver injury (likely Rifampin) and effect of sepsis on liver. 2. Ileus, improving but continues without BM for several days. 3. Poor nutritional status - improving with enteral feedings. Plan: 1. Regarding LFTs, as improving and no evidence of CBD obstruction on imaging, would follow periodically, but no further testing recommended at this time. 2. KUB 3. Appreciate speech path input. 4. Will check HSV serology. -I have seen, examined, and agree with the plan as outlined from Haider Malia Salazar above. -DILI has improved -Oral ulceration ? HSV vs a stomatitis -Continue nutrition, if has continued need, would suggest small and more comfortable tube with dobhoff -ileus has resolved
[2016-09-26] MEDS: DOCUSATE SODIUM 100 MG/10 ML UDC PO SCH ×2 (10:22→21:35)
[2016-09-26] MEDS: PANTOprazole INJ 40 MG in SYRINGE 0 ML IV SCH ×2 (10:22→21:35)
[2016-09-26] MEDS: MULTIVITAMINS W/MINERALS 15ML UDP PO SCH (10:22)
[2016-09-26] MEDS: RIFAMPIN 300 MG CAP PO SCH ×2 (10:23→21:36)
[2016-09-26] MEDS: FLUOXETINE HCL 20 MG/5 ML UDP PO SCH (10:23)
[2016-09-26] MEDS: ASCORBIC ACID 500 MG TAB PO SCH (10:24)
[2016-09-26] MEDS: VITAMIN B COMPLEX TAB PO SCH (10:24)
[2016-09-26] MEDS: CHOLECALCIFEROL 1000 INTER.UNIT TAB PO SCH ×2 (10:24→10:25)
[2016-09-26] MEDS ORDERED: MAGIC SWIZZLE PO SCH (11:15)
--- NOTE | 2016-09-26 13:02 | DIAGNOSTIC IMAGING REPORT ---
KUB CLINICAL HISTORY: constipation, ileus; ? bowel distention COMPARISON STUDY: 09/25/2016 FINDINGS: A single portable supine study is provided for interpretation. There is a nasogastric tube within the stomach. There is no pathologic bowel dilatation. There are surgical clips in the right upper quadrant suggesting a prior cholecystectomy. There are subtle increased markings at the left lung base. IMPRESSION: 1. No evidence of pathologic bowel dilatation 2. Nasogastric tube within the stomach. Electronically signed by: Connor Oleary M.D. 09/26/2016 1:01 PM Dictated Date/Time: 09/26/2016 12:59 PM
[2016-09-26 15:34] LABS: GAMMA GLOBULIN 0.9 G/DL (0.8-1.7); MONOCLONAL PROTEIN BAND 1 0.6 G/DL (NOT DETECTED); TOTAL PROTEIN 4.4 G/DL (6.2-8.3)
--- NOTE | 2016-09-26 17:47 | Progress Note ---
Internal Med Progress Note Date of Service: September 26, 2016. Provider Documentation: SUBJECTIVE: mental status improving more talkative today and oriented x 3 complains of some pain in back and left hip region afebrile denies nausea or abdominal pain OBJECTIVE: Vital Signs-as noted below Exam: General-alert and awake and oriented x 3 ENT-normal hearing Neck-no neck masses Lungs-cta b/l no wheezing or crackles Heart-s1 and s2 heard regular rate and rhythm no murmurs Abdomen-soft bowel sounds present non tender no distension Extremities- s/p left hip I and D edematous skin erythematous rash in groins. Neuro-alert and awake oriented x 3 moves extremities Lab data as noted below. ASSESSMENT & PLAN: 70F presented with left hip infection post recent left EFREM and was s/p I and D. Cultures growing MRSA. Hospital day complicated by ARF, unresponsiveness after procedure, possible uremic encephalopathy and currently slowly improving with dialysis. ON IV DAPTOMYCIN(PLAN FOR 6-8 WEEKS PER ID) AND RIFAMPIN FOR MRSA. ROCEPHIN FOR UTI.ON NG TUBE FEEDING. STILL WEAK AND LETHARGIC. SLOW IMPROVEMENT. SWALLOW EVALUATION WHEN MORE STABLE AND PT/OT.DURATION OF DIALYSIS PER NEPHROLOGY LEFT HIP CELLULITIS and infection from RECENT LEFT EFREM Sepsis from above s/p left EFREM 09/[address] Leavitt, discharged on 09/[address] [facility] for rehab; presented with fever and generalized weakness leukocytosis and febrile s/p Vanco and Zosyn in the ER wound cx mrsa s/p I and D by ortho and deep cx growing staph was placed on iv daptomycin and rifampin ID on board and appreciate inputs added Zosyn for uti - cx grew e.coli and changed to Rocephin today 09/25/16 #5( Zosyn and Rocephin) rifampin stopped secondary to elevated lfts's and restarted today as lft's improved at 300mg bid on 09/25/16 worsening leukocytosis but patinet staus improving(leukemoid reaction?). Blood fungal cx negative ID to continue current abx and observe duration of abx as per ID(plan for 6-8 weeks of iv daptomycin) ALBERT Most likely contrast induced nephropathy, in the setting of infection on kaur catheter for accurate I/O's initially received fluids ct abd/pelvis unremarkable cr peaked to 7.1 09/22/16 nephrology on board nephrology initiated dialysis improving to continue dialysis for now Encephalopathy metabolic from sepsis and ALBERT Improving after initiation of dialysis will monitor ABNORMAL LFT's possibly due to underlying infection and medications liver ultrasound unremarkable ct scan unremarkable Consulted GI and appreciate inputs stopped rifampin improved restarted rifampin await viral studies will f/u labs Acute blood loss ANEMIA Most likely due to blood loss from recent surgery, no signs of bleeding on iron replacement hb 7.3 today plan for transfusion during dialysis in am Elevated INR inr 4.9 09/22/16 mostly from ongomig infection, medications and arf giving iv vitamin k resolved DEMENTIA, BIPOLAR on divalproex, donepezil, fluoxetine po meds on hold restarted fluoxetine 09/25/16 to restart Divalproex er when able to take po meds as it cannot be crushed GERD PPI LEFT ABDOMINAL FOLD MACERATION mostly topical shweta on Mycogen cream wound care nurse consulted \ Psbo s/p ng tube resolved on kub 09/25/16 Nutrition started on tube feeds speech evaluation when more stable seen by speech and found to have oral ulcer stomatitis vs hsv? started on magic sizzle will monitor DVT PROPHYLAXIS Discontinued ASA 325mg BID given worsening renal function hep sub q for now CODE STATUS DNR DISPOSITION Monitor in Tele floor close monitor pt/ot when more stable social service for d/c planning Vital Signs: Date Time Temp Pulse Resp B/P Pulse Ox O2 Delivery O2 Flow Rate FiO2 09/26/16 19:35 37.2 82 107/57 09/26/16 19:15 87 108/53 09/26/16 19:00 87 92/48 09/26/16 18:45 87 92/48 09/26/16 18:45 80 124/54 09/26/16 18:30 87 105/57 09/26/16 18:15 80 124/54 09/26/16 18:00 85 113/59 09/26/16 17:45 85 109/58 09/26/16 17:30 89 116/50 09/26/16 17:15 87 120/57 09/26/16 17:00 87 120/57 09/26/16 16:45 87 111/56 09/26/16 16:30 89 105/53 09/26/16 16:21 37.2 85 118/62 09/26/16 16:15 90 102/54 09/26/16 16:00 98 Nasal Cannula 3.0 09/26/16 16:00 85 118/62 09/26/16 15:23 37.1 83 18 128/67 98 Nasal Cannula 3.0 09/26/16 12:00 98 Nasal Cannula 3.0 09/26/16 11:03 37.1 86 20 145/69 100 3.0 09/26/16 08:00 98 Nasal Cannula 3.0 09/26/16 07:24 37.2 88 18 132/68 100 3.0 09/26/16 04:00 97 Nasal Cannula 3.0 09/26/16 03:19 37.2 85 22 138/61 97 Nasal Cannula 3.0 09/26/16 00:00 99 Nasal Cannula 3.0 09/25/16 23:12 37.0 86 22 163/61 99 Nasal Cannula 3.0 09/25/16 20:00 98 Nasal Cannula 3.0 Lab Results: Results Past 24 Hours Test 09/26/16 06:17 09/26/16 11:50 Range/Units White Blood Count 32.55 4.8-10.8 K/uL Red Blood Count 2.45 4.2-5.4 M/uL Hemoglobin 7.3 12.0-16.0 g/dL Hematocrit 21.8 37-47 % Mean Corpuscular Volume 89.0 80-100 fL Mean Corpuscular Hemoglobin 29.8 25-34 pg Mean Corpuscular Hemoglobin Concent 33.5 32-36 g/dl Platelet Count 156 130-400 K/uL Mean Platelet Volume 10.0 7.4-10.4 fL RDW Standard Deviation 53.9 36.4-46.3 fL RDW Coefficient of Variation 16.7 11.5-14.5 % Nucleated RBC Absolute Count (auto) 0.05 0-0 K/uL Neutrophils % (Manual) 67.2 % Lymphocytes % (Manual) 7.1 % Monocytes % (Manual) 8.0 % Eosinophils % (Manual) 3.5 % Metamyelocytes % 7.1 % Myelocytes % 7.1 % Nucleated Red Blood Cells % 0.1 % Neutrophils # (Manual) 21.87 1.4-6.5 K/uL Total Absolute Neutrophils 21.87 1.4-6.5 K/uL Lymphocytes # (Manual) 2.31 1.2-3.4 K/uL Total Absolute Lymphocytes 2.31 1.2-3.4 K/uL Monocytes # (Manual) 2.60 0.11-0.59 K/uL Eosinophils # (Manual) 1.14 0-0.5 K/uL Metamyelocytes # 2.31 0-0 K/uL Myelocytes # 2.31 0-0 K/uL Polychromasia 1+ Sodium Level 138 136-145 mmol/L Potassium Level 4.1 3.5-5.1 mmol/L Chloride Level 101 98-107 mmol/L Carbon Dioxide Level 28 21-32 mmol/L Anion Gap 9.0 3-11 mmol/L Blood Urea Nitrogen 83 7-18 mg/dl Creatinine 5.00 0.60-1.20 mg/dl Est Creatinine Clear Calc Drug Dose 12.0 ml/min Estimated GFR () 9.3 Estimated GFR (Non- 8.0 BUN/Creatinine Ratio 16.6 10-20 Random Glucose 109 70-99 mg/dl Calcium Level 8.0 8.5-10.1 mg/dl Phosphorus Level 3.8 2.5-4.9 mg/dl Magnesium Level 2.5 1.8-2.4 mg/dl Iron Level 43 35-150 mcg/dl Total Iron Binding Capacity 173 250-450 mcg/dl Transferrin 141 200-360 mg/dl Transferrin % Saturation 22 15-50 %
--- NOTE | 2016-09-26 20:55 | Infectious Disease Progress Nt ---
Progress Note Date of Service September 26, 2016. Subjective Pt evaluation today including: conversation w/ patient, physical exam, chart review, lab review, review of studies, conversation w/ fundraising consultant, review of inpatient medication list Patient more alert today. Offers no new complaints. Remains afebrile. Denies any significant left hip pain. All Other Systems: Reviewed and Negative Medications Current Inpatient Medications Medications (Trade) Dose Ordered Sig/Quan Route Start Time Stop Time Status Last Admin Dose Admin Cholecalciferol (Vitamin D Tab) 4,000 inter.unit QAM PO 09/18/16 09:00 10/18/16 08:59 09/26/16 10:24 4,000 INTER.UNIT Vitamin B Complex (Vitamin B Complex) 1 tab DAILY PO 09/18/16 09:00 10/18/16 08:59 09/26/16 10:24 1 TAB Miscellaneous Information (Order Awaiting Action) 1 ea QS N/A 09/17/16 16:00 10/17/16 15:59 Acetaminophen (Tylenol Tab) 650 mg Q6H PRN PO 09/18/16 08:15 10/18/16 08:14 09/20/16 02:00 650 MG Daptomycin (Consult) 1 ea UD PRN N/A 09/19/16 08:30 10/19/16 08:29 Miconazole Nitrate (Desenex Powder) 1 appln PRN PRN EXT 09/20/16 15:15 10/20/16 15:14 09/25/16 20:20 1 APPLN Enteral Nutritional Formula 1 box 1 box [id number] PO 09/21/16 17:00 10/21/16 16:59 Daptomycin 650 mg/ Sodium Chloride 63 ml @ 120 mls/hr Q48H IV 09/23/16 16:00 11/02/16 08:59 09/25/16 16:17 120 MLS/HR Acetaminophen/ Empty Bag (Ofirmev Iv/ Empty Iv Bag 100ml) 65 ml @ 260 mls/hr Q6H PRN IV 09/22/16 16:30 10/22/16 16:29 09/26/16 18:42 260 MLS/HR Heparin Sodium (Porcine) 5000 unit 5,000 unit Q8H SQ 09/23/16 16:00 10/23/16 15:59 09/26/16 10:41 5,000 UNIT Pantoprazole Sodium/Syringe (Protonix Inj/ Syringe) 10 ml @ 5 mls/min DAILY@,21 IV 09/23/16 21:00 10/23/16 20:59 09/26/16 10:22 5 MLS/MIN Enteral Nutritional Formula (Novasource Renal) 1,000 ml UD PRN PO 09/24/16 09:00 10/24/16 08:59 09/25/16 19:27 1,000 ML Heparin Sodium (Porcine) (Heparin 10 Unit/ ml 5 ml Flush) 5 ml PRN PRN FLUSH 09/24/16 15:15 10/24/16 15:14 Fluoxetine HCl (Prozac Soln) 20 mg QAM PO 09/26/16 09:00 10/26/16 08:59 09/26/16 10:23 20 MG Multivitamins Therapeutic (Cerovite Liquid) 15 ml QAM PO 09/26/16 09:00 10/26/16 08:59 09/26/16 10:22 15 ML Ascorbic Acid (Vitamin C Tab) 1,000 mg QAM PO 09/26/16 09:00 10/26/16 08:59 09/26/16 10:24 1,000 MG Cholecalciferol (Vitamin D Tab) 1,000 inter.unit QAM PO 09/26/16 09:00 10/26/16 08:59 09/26/16 10:25 1,000 INTER.UNIT Docusate Sodium 100 mg 100 mg BID PO 09/25/16 21:00 10/25/16 20:59 09/26/16 10:22 100 MG Ceftriaxone Sodium/Dextrose (Rocephin Inj/D5 50ml) 60 ml @ 100 mls/hr DAILY IV 09/26/16 09:00 09/29/16 09:35 09/26/16 10:09 100 MLS/HR Rifampin 300 mg BID PO 09/25/16 21:00 11/06/16 08:59 09/26/16 10:23 300 MG Lidocaine HCl/ Diphenhydramine HCl/Al Hydroxide/ Mg Hydroxide/ Glycerin/Barcode (VISCOUS LIDOCAINE 2% Soln/ Benadryl Syrup/ Maalox Susp/ Glycerin Anhydrous Soln) BID MT 09/26/16 21:00 10/26/16 20:59 Objective Vital Signs Date Time Temp Pulse Resp B/P Pulse Ox O2 Delivery O2 Flow Rate FiO2 09/26/16 20:00 Nasal Cannula 09/26/16 19:35 37.2 82 107/57 09/26/16 19:15 87 108/53 09/26/16 19:00 87 92/48 09/26/16 18:45 87 92/48 09/26/16 18:45 80 124/54 09/26/16 18:30 87 105/57 09/26/16 18:15 80 124/54 09/26/16 18:00 85 113/59 09/26/16 17:45 85 109/58 09/26/16 17:30 89 116/50 09/26/16 17:15 87 120/57 09/26/16 17:00 87 120/57 09/26/16 16:45 87 111/56 09/26/16 16:30 89 105/53 09/26/16 16:21 37.2 85 118/62 09/26/16 16:15 90 102/54 09/26/16 16:00 98 Nasal Cannula 3.0 09/26/16 16:00 85 118/62 09/26/16 15:23 37.1 83 18 128/67 98 Nasal Cannula 3.0 09/26/16 12:00 98 Nasal Cannula 3.0 09/26/16 11:03 37.1 86 20 145/69 100 3.0 09/26/16 08:00 98 Nasal Cannula 3.0 09/26/16 07:24 37.2 88 18 132/68 100 3.0 09/26/16 04:00 97 Nasal Cannula 3.0 09/26/16 03:19 37.2 85 22 138/61 97 Nasal Cannula 3.0 09/26/16 00:00 99 Nasal Cannula 3.0 09/25/16 23:12 37.0 86 22 163/61 99 Nasal Cannula 3.0 Physical Exam General Appearance: WD/WN, no apparent distress Eyes: normal inspection, EOMI, sclerae normal ENT: normal ENT inspection, pharynx normal Neck: supple, no adenopathy, trachea midline Respiratory/Chest: chest non-tender, lungs clear, normal breath sounds, no respiratory distress Cardiovascular: regular rate, rhythm, no gallop, no murmur Abdomen: normal bowel sounds, non tender, soft, no organomegaly Extremities: no calf tenderness, normal capillary refill Neurologic/Psychiatric: alert Skin: normal color, no rash, + pertinent finding ( Decreased erythema left hip ) Lymphatic: no adenopathy Laboratory Results Last 24 Hours Test 09/26/16 06:17 09/26/16 11:50 White Blood Count 32.55 K/uL Red Blood Count 2.45 M/uL Hemoglobin 7.3 g/dL Hematocrit 21.8 % Mean Corpuscular Volume 89.0 fL Mean Corpuscular Hemoglobin 29.8 pg Mean Corpuscular Hemoglobin Concent 33.5 g/dl Platelet Count 156 K/uL Mean Platelet Volume 10.0 fL RDW Standard Deviation 53.9 fL RDW Coefficient of Variation 16.7 % Nucleated RBC Absolute Count (auto) 0.05 K/uL Neutrophils % (Manual) 67.2 % Lymphocytes % (Manual) 7.1 % Monocytes % (Manual) 8.0 % Eosinophils % (Manual) 3.5 % Metamyelocytes % 7.1 % Myelocytes % 7.1 % Nucleated Red Blood Cells % 0.1 % Neutrophils # (Manual) 21.87 K/uL Total Absolute Neutrophils 21.87 K/uL Lymphocytes # (Manual) 2.31 K/uL Total Absolute Lymphocytes 2.31 K/uL Monocytes # (Manual) 2.60 K/uL Eosinophils # (Manual) 1.14 K/uL Metamyelocytes # 2.31 K/uL Myelocytes # 2.31 K/uL Polychromasia 1+ Sodium Level 138 mmol/L Potassium Level 4.1 mmol/L Chloride Level 101 mmol/L Carbon Dioxide Level 28 mmol/L Anion Gap 9.0 mmol/L Blood Urea Nitrogen 83 mg/dl Creatinine 5.00 mg/dl Est Creatinine Clear Calc Drug Dose 12.0 ml/min Estimated GFR () 9.3 Estimated GFR (Non- 8.0 BUN/Creatinine Ratio 16.6 Random Glucose 109 mg/dl Calcium Level 8.0 mg/dl Phosphorus Level 3.8 mg/dl Magnesium Level 2.5 mg/dl Iron Level 43 mcg/dl Total Iron Binding Capacity 173 mcg/dl Transferrin 141 mg/dl Transferrin % Saturation 22 % Assessment and Plan 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 Has had increase in liver function studies, but now restarted on rifampin, and should follow LFTs carefully. Will likely require prolonged IV 68 weeks of antibiotic therapy. Not clear etiology of leukocytosis, likely leukemoid reaction, but continue to follow clinical response and cultures carefully. Will discuss with all involved.
[2016-09-26] MEDS: LIDOCAINE HCL 2% VISCOUS SOLN 60 ML, DiphenhydrAMINE HCL SYRUP 150 MG, ALUMINUM/MAGNESI... MT SCH ×4 (21:35)
[2016-09-27] VITALS (22 sets, daily range): BP systolic 115–146; BP diastolic 52–72; PULSE 78–90; TEMP 36.6–37.2; O2SAT 98–100
[2016-09-27] MEDS: ACETAMINOPHEN IV 650 MG in EMPTY BAG 0 ML IV PRN ×3 (02:19→21:04)
[2016-09-27] MEDS ORDERED: EPOETIN ALFA 10,000 UNITS/ML VIAL IV. SCH (08:00)
--- NOTE | 2016-09-27 08:07 | Nephrology Progress Note ---
Nephrology Progress Note Date of Service: September 27, 2016. Subjective 70 yo female with oliguric atn who is on dialysis now. currently with a temporary dialysis catheter. swelling in arms is improving. currently with ng tube and on tube feeds. pt more sleepy today compared to yesterday. Objective Date Time Temp Pulse Resp B/P Pulse Ox O2 Delivery O2 Flow Rate FiO2 09/27/16 07:27 37.2 87 16 146/71 100 3.0 09/27/16 04:00 Nasal Cannula 09/27/16 03:08 36.9 85 20 124/56 99 Nasal Cannula 3.0 09/27/16 00:01 Nasal Cannula 09/26/16 23:12 37.0 84 20 134/69 99 Nasal Cannula 3.0 09/26/16 20:00 Nasal Cannula 09/26/16 19:35 37.2 82 107/57 09/26/16 19:15 87 108/53 09/26/16 19:00 87 92/48 09/26/16 18:45 87 92/48 09/26/16 18:45 80 124/54 09/26/16 18:30 87 105/57 09/26/16 18:15 80 124/54 09/26/16 18:00 85 113/59 09/26/16 17:45 85 109/58 09/26/16 17:30 89 116/50 09/26/16 17:15 87 120/57 09/26/16 17:00 87 120/57 09/26/16 16:45 87 111/56 09/26/16 16:30 89 105/53 09/26/16 16:21 37.2 85 118/62 09/26/16 16:15 90 102/54 09/26/16 16:00 98 Nasal Cannula 3.0 09/26/16 16:00 85 118/62 09/26/16 15:23 37.1 83 18 128/67 98 Nasal Cannula 3.0 09/26/16 12:00 98 Nasal Cannula 3.0 09/26/16 11:03 37.1 86 20 145/69 100 3.0 Physical Exam: General-aaox3, more sleepy but arouses and answers questions Eyes-no scleral icterus ENT-dry mouth, +ng tube Neck-supple Lungs-clear Heart-regular Abdomen-bs+ s/nt Extremities-edema in arms is much improved, still with +2 edema in legs Neuro-nonfocal, sleepy Current Inpatient Medications Medications (Trade) Dose Ordered Sig/Quan Route Start Time Stop Time Status Last Admin Dose Admin Cholecalciferol (Vitamin D Tab) 4,000 inter.unit QAM PO 09/18/16 09:00 10/18/16 08:59 09/26/16 10:24 4,000 INTER.UNIT Vitamin B Complex (Vitamin B Complex) 1 tab DAILY PO 09/18/16 09:00 10/18/16 08:59 09/26/16 10:24 1 TAB Miscellaneous Information (Order Awaiting Action) 1 ea QS N/A 09/17/16 16:00 10/17/16 15:59 Acetaminophen (Tylenol Tab) 650 mg Q6H PRN PO 09/18/16 08:15 10/18/16 08:14 09/20/16 02:00 650 MG Daptomycin (Consult) 1 ea UD PRN N/A 09/19/16 08:30 10/19/16 08:29 Miconazole Nitrate (Desenex Powder) 1 appln PRN PRN EXT 09/20/16 15:15 10/20/16 15:14 09/25/16 20:20 1 APPLN Enteral Nutritional Formula 1 box 1 box [id number] PO 09/21/16 17:00 10/21/16 16:59 Daptomycin 650 mg/ Sodium Chloride 63 ml @ 120 mls/hr Q48H IV 09/23/16 16:00 11/02/16 08:59 09/25/16 16:17 120 MLS/HR Acetaminophen/ Empty Bag (Ofirmev Iv/ Empty Iv Bag 100ml) 65 ml @ 260 mls/hr Q6H PRN IV 09/22/16 16:30 10/22/16 16:29 09/27/16 02:19 260 MLS/HR Heparin Sodium (Porcine) 5000 unit 5,000 unit Q8H SQ 09/23/16 16:00 10/23/16 15:59 09/26/16 23:53 5,000 UNIT Pantoprazole Sodium/Syringe (Protonix Inj/ Syringe) 10 ml @ 5 mls/min DAILY@09,21 IV 09/23/16 21:00 10/23/16 20:59 09/26/16 21:35 5 MLS/MIN Enteral Nutritional Formula (Novasource Renal) 1,000 ml UD PRN PO 09/24/16 09:00 10/24/16 08:59 09/25/16 19:27 1,000 ML Heparin Sodium (Porcine) (Heparin 10 Unit/ ml 5 ml Flush) 5 ml PRN PRN FLUSH 09/24/16 15:15 10/24/16 15:14 Fluoxetine HCl (Prozac Soln) 20 mg QAM PO 09/26/16 09:00 10/26/16 08:59 09/26/16 10:23 20 MG Multivitamins Therapeutic (Cerovite Liquid) 15 ml QAM PO 09/26/16 09:00 10/26/16 08:59 09/26/16 10:22 15 ML Ascorbic Acid (Vitamin C Tab) 1,000 mg QAM PO 09/26/16 09:00 10/26/16 08:59 09/26/16 10:24 1,000 MG Cholecalciferol (Vitamin D Tab) 1,000 inter.unit QAM PO 09/26/16 09:00 10/26/16 08:59 09/26/16 10:25 1,000 INTER.UNIT Docusate Sodium 100 mg 100 mg BID PO 09/25/16 21:00 10/25/16 20:59 09/26/16 21:35 100 MG Ceftriaxone Sodium/Dextrose (Rocephin Inj/D5 50ml) 60 ml @ 100 mls/hr DAILY IV 09/26/16 09:00 09/29/16 09:35 09/26/16 10:09 100 MLS/HR Rifampin 300 mg BID PO 09/25/16 21:00 11/06/16 08:59 09/26/16 21:36 300 MG Lidocaine HCl/ Diphenhydramine HCl/Al Hydroxide/ Mg Hydroxide/ Glycerin/Barcode (VISCOUS LIDOCAINE 2% Soln/ Benadryl Syrup/ Maalox Susp/ Glycerin Anhydrous Soln) BID MT 09/26/16 21:00 10/26/16 20:59 09/26/16 21:35 5 ML Epoetin Jensen (Procrit Inj) 10,000 units ONE ONCE IV. 09/27/16 08:00 09/27/16 08:01 UNV Last 24 Hours Test 09/26/16 11:50 Assessment & Plan [id number]-has a temporary dialysis catheter. had dialysis yesterday and removed 3 liters. will try to do dialysis again and remove more fluid again today to help with her swelling. Anemia-iron levels are good. will give a dose of procrit to help raise the hg levels.
[2016-09-27] MEDS: LIDOCAINE HCL 2% VISCOUS SOLN 60 ML, DiphenhydrAMINE HCL SYRUP 150 MG, ALUMINUM/MAGNESI... MT SCH ×8 (09:00→21:05)
[2016-09-27] MEDS: BOOST BREEZE NUTRITION DRINK 1 BOX PO SCH ×2 (09:00→17:00)
--- NOTE | 2016-09-27 10:25 | Infectious Disease Progress Nt ---
Progress Note Date of Service September 27, 2016. Subjective Pt evaluation today including: conversation w/ patient, physical exam, chart review, lab review, review of studies, conversation w/ automotive service consultant, review of inpatient medication list Patient more sleepy today. No obvious distress. WBC ~ same as yesterday. No fever. For repeat dialysis. All Other Systems: Reviewed and Negative Medications Current Inpatient Medications Medications (Trade) Dose Ordered Sig/Quan Route Start Time Stop Time Status Last Admin Dose Admin Cholecalciferol (Vitamin D Tab) 4,000 inter.unit QAM PO 09/18/16 09:00 10/18/16 08:59 09/26/16 10:24 4,000 INTER.UNIT Vitamin B Complex (Vitamin B Complex) 1 tab DAILY PO 09/18/16 09:00 10/18/16 08:59 09/26/16 10:24 1 TAB Miscellaneous Information (Order Awaiting Action) 1 ea QS N/A 09/17/16 16:00 10/17/16 15:59 Acetaminophen (Tylenol Tab) 650 mg Q6H PRN PO 09/18/16 08:15 10/18/16 08:14 09/20/16 02:00 650 MG Daptomycin (Consult) 1 ea UD PRN N/A 09/19/16 08:30 10/19/16 08:29 Miconazole Nitrate (Desenex Powder) 1 appln PRN PRN EXT 09/20/16 15:15 10/20/16 15:14 09/25/16 20:20 1 APPLN Enteral Nutritional Formula 1 box 1 box [id number] PO 09/21/16 17:00 10/21/16 16:59 Daptomycin 650 mg/ Sodium Chloride 63 ml @ 120 mls/hr Q48H IV 09/23/16 16:00 11/02/16 08:59 09/25/16 16:17 120 MLS/HR Acetaminophen/ Empty Bag (Ofirmev Iv/ Empty Iv Bag 100ml) 65 ml @ 260 mls/hr Q6H PRN IV 09/22/16 16:30 10/22/16 16:29 09/27/16 02:19 260 MLS/HR Heparin Sodium (Porcine) 5000 unit 5,000 unit Q8H SQ 09/23/16 16:00 10/23/16 15:59 09/26/16 23:53 5,000 UNIT Pantoprazole Sodium/Syringe (Protonix Inj/ Syringe) 10 ml @ 5 mls/min DAILY@09,21 IV 09/23/16 21:00 10/23/16 20:59 09/26/16 21:35 5 MLS/MIN Enteral Nutritional Formula (Novasource Renal) 1,000 ml UD PRN PO 09/24/16 09:00 10/24/16 08:59 09/25/16 19:27 1,000 ML Heparin Sodium (Porcine) (Heparin 10 Unit/ ml 5 ml Flush) 5 ml PRN PRN FLUSH 09/24/16 15:15 10/24/16 15:14 Fluoxetine HCl (Prozac Soln) 20 mg QAM PO 09/26/16 09:00 10/26/16 08:59 09/26/16 10:23 20 MG Multivitamins Therapeutic (Cerovite Liquid) 15 ml QAM PO 09/26/16 09:00 10/26/16 08:59 09/26/16 10:22 15 ML Ascorbic Acid (Vitamin C Tab) 1,000 mg QAM PO 09/26/16 09:00 10/26/16 08:59 09/26/16 10:24 1,000 MG Cholecalciferol (Vitamin D Tab) 1,000 inter.unit QAM PO 09/26/16 09:00 10/26/16 08:59 09/26/16 10:25 1,000 INTER.UNIT Docusate Sodium 100 mg 100 mg BID PO 09/25/16 21:00 10/25/16 20:59 09/26/16 21:35 100 MG Ceftriaxone Sodium/Dextrose (Rocephin Inj/D5 50ml) 60 ml @ 100 mls/hr DAILY IV 09/26/16 09:00 09/29/16 09:35 09/26/16 10:09 100 MLS/HR Rifampin 300 mg BID PO 09/25/16 21:00 11/06/16 08:59 09/26/16 21:36 300 MG Lidocaine HCl/ Diphenhydramine HCl/Al Hydroxide/ Mg Hydroxide/ Glycerin/Barcode (VISCOUS LIDOCAINE 2% Soln/ Benadryl Syrup/ Maalox Susp/ Glycerin Anhydrous Soln) BID MT 09/26/16 21:00 10/26/16 20:59 09/26/16 21:35 5 ML Epoetin Jensen (Procrit Inj) 10,000 units ONE IV. 09/27/16 08:00 09/27/16 18:00 Objective Vital Signs Date Time Temp Pulse Resp B/P Pulse Ox O2 Delivery O2 Flow Rate FiO2 09/27/16 10:00 89 122/56 09/27/16 09:45 89 117/54 09/27/16 09:40 36.9 85 139/61 09/27/16 09:30 85 138/63 09/27/16 07:27 37.2 87 16 146/71 100 3.0 09/27/16 04:00 Nasal Cannula 09/27/16 03:08 36.9 85 20 124/56 99 Nasal Cannula 3.0 09/27/16 00:01 Nasal Cannula 09/26/16 23:12 37.0 84 20 134/69 99 Nasal Cannula 3.0 09/26/16 20:00 Nasal Cannula 09/26/16 19:35 37.2 82 107/57 09/26/16 19:15 87 108/53 09/26/16 19:00 87 92/48 09/26/16 18:45 87 92/48 09/26/16 18:45 80 124/54 09/26/16 18:30 87 105/57 09/26/16 18:15 80 124/54 09/26/16 18:00 85 113/59 09/26/16 17:45 85 109/58 09/26/16 17:30 89 116/50 09/26/16 17:15 87 120/57 09/26/16 17:00 87 120/57 09/26/16 16:45 87 111/56 09/26/16 16:30 89 105/53 09/26/16 16:21 37.2 85 118/62 09/26/16 16:15 90 102/54 09/26/16 16:00 98 Nasal Cannula 3.0 09/26/16 16:00 85 118/62 09/26/16 15:23 37.1 83 18 128/67 98 Nasal Cannula 3.0 09/26/16 12:00 98 Nasal Cannula 3.0 09/26/16 11:03 37.1 86 20 145/69 100 3.0 Physical Exam General Appearance: WD/WN, no apparent distress Eyes: normal inspection, sclerae normal ENT: normal ENT inspection, pharynx normal, + pertinent finding (NGT in place) Neck: supple, no adenopathy, trachea midline Respiratory/Chest: chest non-tender, lungs clear, normal breath sounds, no respiratory distress Cardiovascular: regular rate, rhythm, no gallop, no murmur Abdomen: normal bowel sounds, non tender, soft, no organomegaly Extremities: + pedal edema, + swelling Neurologic/Psychiatric: + pertinent finding (drowsy) Skin: normal color, no rash, + pertinent finding (dressing left hip) Laboratory Results Last 24 Hours Test 09/26/16 11:50 CLINICAL HISTORY: constipation, ileus; ? bowel distention COMPARISON STUDY: 09/25/2016 FINDINGS: A single portable supine study is provided for interpretation. There is a nasogastric tube within the stomach. There is no pathologic bowel dilatation. There are surgical clips in the right upper quadrant suggesting a prior cholecystectomy. There are subtle increased markings at the left lung base. IMPRESSION: 1. No evidence of pathologic bowel dilatation 2. Nasogastric tube within the stomach. Electronically signed by: Connor Oleary M.D. 09/26/2016 1:01 PM Assessment and Plan 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 Has had increase in liver function studies, but now restarted on rifampin, and should follow LFTs carefully. Will likely require prolonged IV 6- 8 weeks of antibiotic therapy. Not clear etiology of leukocytosis, likely leukemoid reaction, but continue to follow clinical response and cultures carefully. Will discuss with all involved.
--- NOTE | 2016-09-27 10:35 | Gastroenterology Progress Note ---
Progress Note Date of Service: September 27, 2016 Subjective Pt evaluation today including: conversation w/ patient, physical exam, chart review, lab review, review of studies, review of inpatient medication list Ms. Mccoy is a 70 yr old female with MRSA sepsis S/P recent hip surgery. Continuing to improve. Today more awake. Per speech ability to swallow is improving but would hold off from po foods/liquids for at least another day due to mouth sore (stomatitis vs. HSV which is pending). No BM since 09/18 but the pt denies abdominal pain and KUB yesterday normal. LFT elevation is nearly resolved and was likely an effect of sepsis and antibiotics. Review of Systems Constitutional: No fever ENT: No hearing loss Respiratory: No cough Cardiac: No chest pain Abdomen: + constipation, No diarrhea, No nausea, No pain, No vomiting Female : No dysuria Neuro: + memory loss (chronic dementia) Endo: + fatigue Skin: + problem reported (large ulceration/crusting of the tongue and the sides of the lips. ) Medications Current Inpatient Medications Medications (Trade) Dose Ordered Sig/Quan Route Start Time Stop Time Status Last Admin Dose Admin Cholecalciferol (Vitamin D Tab) 4,000 inter.unit QAM PO 09/18/16 09:00 10/18/16 08:59 09/26/16 10:24 4,000 INTER.UNIT Vitamin B Complex (Vitamin B Complex) 1 tab DAILY PO 09/18/16 09:00 10/18/16 08:59 09/26/16 10:24 1 TAB Miscellaneous Information (Order Awaiting Action) 1 ea QS N/A 09/17/16 16:00 10/17/16 15:59 Acetaminophen (Tylenol Tab) 650 mg Q6H PRN PO 09/18/16 08:15 10/18/16 08:14 09/20/16 02:00 650 MG Daptomycin (Consult) 1 ea UD PRN N/A 09/19/16 08:30 10/19/16 08:29 Miconazole Nitrate (Desenex Powder) 1 appln PRN PRN EXT 09/20/16 15:15 10/20/16 15:14 09/25/16 20:20 1 APPLN Enteral Nutritional Formula 1 box 1 box [id number] PO 09/21/16 17:00 10/21/16 16:59 Daptomycin 650 mg/ Sodium Chloride 63 ml @ 120 mls/hr Q48H IV 09/23/16 16:00 11/02/16 08:59 09/25/16 16:17 120 MLS/HR Acetaminophen/ Empty Bag (Ofirmev Iv/ Empty Iv Bag 100ml) 65 ml @ 260 mls/hr Q6H PRN IV 09/22/16 16:30 10/22/16 16:29 09/27/16 02:19 260 MLS/HR Heparin Sodium (Porcine) 5000 unit 5,000 unit Q8H SQ 09/23/16 16:00 10/23/16 15:59 09/26/16 23:53 5,000 UNIT Pantoprazole Sodium/Syringe (Protonix Inj/ Syringe) 10 ml @ 5 mls/min DAILY@ IV 09/23/16 21:00 10/23/16 20:59 09/26/16 21:35 5 MLS/MIN Enteral Nutritional Formula (Novasource Renal) 1,000 ml UD PRN PO 09/24/16 09:00 10/24/16 08:59 09/25/16 19:27 1,000 ML Heparin Sodium (Porcine) (Heparin 10 Unit/ ml 5 ml Flush) 5 ml PRN PRN FLUSH 09/24/16 15:15 10/24/16 15:14 Fluoxetine HCl (Prozac Soln) 20 mg QAM PO 09/26/16 09:00 10/26/16 08:59 09/26/16 10:23 20 MG Multivitamins Therapeutic (Cerovite Liquid) 15 ml QAM PO 09/26/16 09:00 10/26/16 08:59 09/26/16 10:22 15 ML Ascorbic Acid (Vitamin C Tab) 1,000 mg QAM PO 09/26/16 09:00 10/26/16 08:59 09/26/16 10:24 1,000 MG Cholecalciferol (Vitamin D Tab) 1,000 inter.unit QAM PO 09/26/16 09:00 10/26/16 08:59 09/26/16 10:25 1,000 INTER.UNIT Docusate Sodium 100 mg 100 mg BID PO 09/25/16 21:00 10/25/16 20:59 09/26/16 21:35 100 MG Ceftriaxone Sodium/Dextrose 60 ml @ 100 mls/hr DAILY IV 09/26/16 09:00 09/29/16 09:35 09/26/16 10:09 100 MLS/HR Lidocaine HCl/ Diphenhydramine HCl/Al Hydroxide/ Mg Hydroxide/ Glycerin/Barcode (VISCOUS LIDOCAINE 2% Soln/ Benadryl Syrup/ Maalox Susp/ Glycerin Anhydrous Soln) BID MT 09/26/16 21:00 10/26/16 20:59 09/26/16 21:35 5 ML Epoetin Jensen (Procrit Inj) 10,000 units ONE IV. 09/27/16 08:00 09/27/16 18:00 Objective Vital Signs Date Time Temp Pulse Resp B/P Pulse Ox O2 Delivery O2 Flow Rate FiO2 09/27/16 10:00 89 122/56 09/27/16 09:45 89 117/54 09/27/16 09:40 36.9 85 139/61 09/27/16 09:30 85 138/63 09/27/16 07:27 37.2 87 16 146/71 100 3.0 09/27/16 04:00 Nasal Cannula 09/27/16 03:08 36.9 85 20 124/56 99 Nasal Cannula 3.0 09/27/16 00:01 Nasal Cannula 09/26/16 23:12 37.0 84 20 134/69 99 Nasal Cannula 3.0 09/26/16 20:00 Nasal Cannula 09/26/16 19:35 37.2 82 107/57 09/26/16 19:15 87 108/53 09/26/16 19:00 87 92/48 09/26/16 18:45 87 92/48 09/26/16 18:45 80 124/54 09/26/16 18:30 87 105/57 09/26/16 18:15 80 124/54 09/26/16 18:00 85 113/59 09/26/16 17:45 85 109/58 09/26/16 17:30 89 116/50 09/26/16 17:15 87 120/57 09/26/16 17:00 87 120/57 09/26/16 16:45 87 111/56 09/26/16 16:30 89 105/53 09/26/16 16:21 37.2 85 118/62 09/26/16 16:15 90 102/54 09/26/16 16:00 98 Nasal Cannula 3.0 09/26/16 16:00 85 118/62 09/26/16 15:23 37.1 83 18 128/67 98 Nasal Cannula 3.0 09/26/16 12:00 98 Nasal Cannula 3.0 09/26/16 11:03 37.1 86 20 145/69 100 3.0 Physical Exam General Appearance: + mild distress (c/o left hip pain) Neck: supple, thyroid normal, no JVD Respiratory/Chest: lungs clear Cardiovascular: regular rate, rhythm, + systolic murmur (2/6) Abdomen: non tender, soft, + abnormal bowel sounds Neurologic/Psych: alert, normal mood/affect, oriented x 3 Skin: no jaundice Laboratory Results Last 24 Hours Test 09/26/16 11:50 09/27/16 10:23 Assessment and Plan Ms. Mccoy is a 70 yr old female with 1. Elevated LFTs, now resolved caused by: Drug induced liver injury (likely Rifampin) and effect of sepsis on liver. 2. Ileus, improving but continues without BM for several days. 3. Poor nutritional status - improving with enteral feedings. 4. Stomatitis - ? from HSV -serology is pending. Plan: 1. Will review today's LFTs when available. 2. Appreciate speech path input. 3. Will watch for HSV serology. 4. For constipation, today, after dialysis would give a tapwater enema followed by a dulcolax suppository. When able to take po would add daily Miralax prn.
[2016-09-27] MEDS: NOVASOURCE RENAL 1000ML BAG PO PRN (13:12)
[2016-09-27] MEDS ORDERED: BISACODYL 10 MG SUPP PR SCH ×2 (13:15→19:00)
[2016-09-27] MEDS: CEFTRIAXONE SOD INJ 1,000 MG in DEXTROSE 5% 50ML 50 ML IV SCH (14:07)
[2016-09-27] MEDS: MULTIVITAMINS W/MINERALS 15ML UDP PO SCH (14:11)
[2016-09-27] MEDS: DOCUSATE SODIUM 100 MG/10 ML UDC PO SCH ×2 (14:11→21:05)
[2016-09-27] MEDS: FLUOXETINE HCL 20 MG/5 ML UDP PO SCH (14:12)
[2016-09-27] MEDS: PANTOprazole INJ 40 MG in SYRINGE 0 ML IV SCH ×2 (14:12→21:05)
[2016-09-27] MEDS: VITAMIN B COMPLEX TAB PO SCH (14:13)
[2016-09-27] MEDS: ASCORBIC ACID 500 MG TAB PO SCH (14:13)
[2016-09-27] MEDS: CHOLECALCIFEROL 1000 INTER.UNIT TAB PO SCH ×2 (14:14)
[2016-09-27 14:57] LABS: EPSTEIN BARR VIR CAPSID IGG 3.79 INDEX
--- NOTE | 2016-09-27 15:43 | Progress Note ---
Medicine Progress Note Date & Time of Visit: September 27, 2016 at 15:43 . Subjective No fever. Weak. No cough or SOB. No chest pain. Ongoing stomatitis. Receiving enteral feedings via NGT. No N/V. Constipated. Underwent hemodialysis today. . Objective Last 8 Hrs Date Time Temp Pulse Resp B/P Pulse Ox O2 Delivery O2 Flow Rate FiO2 09/27/16 12:31 36.9 90 123/52 09/27/16 12:30 87 121/57 09/27/16 12:15 83 116/58 09/27/16 12:00 82 122/62 09/27/16 12:00 98 Nasal Cannula 3.0 09/27/16 11:45 79 127/60 09/27/16 11:30 81 115/55 09/27/16 11:15 78 120/57 09/27/16 11:00 80 129/58 09/27/16 10:45 81 126/60 09/27/16 10:30 86 128/57 09/27/16 10:20 36.9 87 24 125/55 2.0 09/27/16 10:15 87 125/55 09/27/16 10:00 89 122/56 09/27/16 09:45 89 117/54 09/27/16 09:40 36.9 85 139/61 09/27/16 09:30 85 138/63 09/27/16 08:00 98 Nasal Cannula 3.0 Physical Exam: General- appears to be chronically ill; no acute distress Eyes- anicteric ENT- left NGT; tongue dry, erythematous Neck- no JVD Lungs- clear to auscultation, ? decreased breath sounds at bases Heart- RRR, II/ sys murmur LSB Abdomen- + BS, soft, nontender Extremities- 3+ pretibial edema; incision left hip with mild erythema Neuro- alert . Laboratory Results: Last 24 Hours Test 09/27/16 14:03 Total Bilirubin 0.7 mg/dl Direct Bilirubin 0.5 mg/dl Aspartate Amino Transf (AST/SGOT) 22 U/L Alanine Aminotransferase (ALT/SGPT) 22 U/L Alkaline Phosphatase 202 U/L Total Protein 6.3 gm/dl Albumin 1.8 gm/dl Assessment & Plan MRSA INFECTION LEFT HIP S/P irrigation. ID consulted. Continue IV daptomycin -a-n-d- -n-p-k-a-m-p-i-n-. Error. ERICA. Corrected @ 17:33) Monitor LFT's. ACUTE KIDNEY INJURY ATN. Nephrology consulted. Continue hemodialysis. ANEMIA Hgb 7.3 this morning. Anemia probably multifactorial. Received EPO and pRBC's today with hemodialysis Follow. ENCEPHALOPATHY Secondary to infection. Improved. NUTRITION Unable to take oral nutrition due to stomatitis. Continue NG feedings. BIPOLAR DISORDER Continue usual meds as able. DEMENTIA Monitor for delirium. SLEEP APNEA Continue O2. ? resume CPAP. VTE PROPHYLAXIS SQ heparin. SCD's. Ambulate as able. DISPOSITION To be determined. Anticipate need for skilled care or inpatient rehab. Internal Medicine follow-up with Dr. Seth. . Consultants: Orthopedics Nephrology Procedures: CT hip 1. 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 No evidence of fracture 3. No significant joint effusion although the examination is limited due to streak artifact 4. Partially visualized 6 cm collection within the subcutaneous tissues lateral to the left gluteal musculature. This is not possible on the basis of this study to determine whether this collection is infected or sterile. Liver ultrasound No significant abnormality identified within the right upper quadrant. Current Inpatient Medications: Current Inpatient Medications Medications (Trade) Dose Ordered Sig/Quan Route Start Time Stop Time Status Last Admin Dose Admin Cholecalciferol (Vitamin D Tab) 4,000 inter.unit QAM PO 09/18/16 09:00 10/18/16 08:59 09/27/16 14:14 4,000 INTER.UNIT Vitamin B Complex (Vitamin B Complex) 1 tab DAILY PO 09/18/16 09:00 10/18/16 08:59 09/27/16 14:13 1 TAB Miscellaneous Information (Order Awaiting Action) 1 ea QS N/A 09/17/16 16:00 10/17/16 15:59 Acetaminophen (Tylenol Tab) 650 mg Q6H PRN PO 09/18/16 08:15 10/18/16 08:14 09/20/16 02:00 650 MG Daptomycin (Consult) 1 ea UD PRN N/A 09/19/16 08:30 10/19/16 08:29 Miconazole Nitrate (Desenex Powder) 1 appln PRN PRN EXT 09/20/16 15:15 10/20/16 15:14 09/25/16 20:20 1 APPLN Enteral Nutritional Formula 1 box 1 box [id number] PO 09/21/16 17:00 10/21/16 16:59 Daptomycin 650 mg/ Sodium Chloride 63 ml @ 120 mls/hr Q48H IV 09/23/16 16:00 11/02/16 08:59 09/25/16 16:17 120 MLS/HR Acetaminophen/ Empty Bag (Ofirmev Iv/ Empty Iv Bag 100ml) 65 ml @ 260 mls/hr Q6H PRN IV 09/22/16 16:30 10/22/16 16:29 09/27/16 14:06 260 MLS/HR Heparin Sodium (Porcine) 5000 unit 5,000 unit Q8H SQ 09/23/16 16:00 10/23/16 15:59 09/26/16 23:53 5,000 UNIT Pantoprazole Sodium/Syringe (Protonix Inj/ Syringe) 10 ml @ 5 mls/min DAILY@09,21 IV 09/23/16 21:00 10/23/16 20:59 09/27/16 14:12 5 MLS/MIN Enteral Nutritional Formula (Novasource Renal) 1,000 ml UD PRN PO 09/24/16 09:00 10/24/16 08:59 09/27/16 13:12 1,000 ML Heparin Sodium (Porcine) (Heparin 10 Unit/ ml 5 ml Flush) 5 ml PRN PRN FLUSH 09/24/16 15:15 10/24/16 15:14 Fluoxetine HCl (Prozac Soln) 20 mg QAM PO 09/26/16 09:00 10/26/16 08:59 09/27/16 14:12 20 MG Multivitamins Therapeutic (Cerovite Liquid) 15 ml QAM PO 09/26/16 09:00 10/26/16 08:59 09/27/16 14:11 15 ML Ascorbic Acid (Vitamin C Tab) 1,000 mg QAM PO 09/26/16 09:00 10/26/16 08:59 09/27/16 14:13 1,000 MG Cholecalciferol (Vitamin D Tab) 1,000 inter.unit QAM PO 09/26/16 09:00 10/26/16 08:59 09/27/16 14:14 1,000 INTER.UNIT Docusate Sodium 100 mg 100 mg BID PO 09/25/16 21:00 10/25/16 20:59 09/27/16 14:11 100 MG Ceftriaxone Sodium/Dextrose 60 ml @ 100 mls/hr DAILY IV 09/26/16 09:00 09/29/16 09:35 09/27/16 14:07 100 MLS/HR Lidocaine HCl/ Diphenhydramine HCl/Al Hydroxide/ Mg Hydroxide/ Glycerin/Barcode (VISCOUS LIDOCAINE 2% Soln/ Benadryl Syrup/ Maalox Susp/ Glycerin Anhydrous Soln) BID MT 09/26/16 21:00 10/26/16 20:59 09/27/16 09:00 5 ML Epoetin Jensen (Procrit Inj) 10,000 units ONE IV. 09/27/16 08:00 09/27/16 18:00 09/27/16 10:56 10,000 UNITS Bisacodyl (Dulcolax Supp) 10 mg TODAY@1315 NM 09/27/16 13:15 09/27/16 16:00
[2016-09-27] MEDS: DAPTOmycin IV 650 MG in SODIUM CHLORIDE 0.9% 50ML 50 ML IV SCH (17:13)
[2016-09-27] MEDS: HEPARIN SOD 5000 UNIT/0.5 ML CARP SQ SCH (17:14)
--- NOTE | 2016-09-27 22:01 | PROGRESS NOTE ---
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 She continues to make gradual clinical improvement. She is more awake, alert. Does not complain of any particular pain today. Denies any chest pain. Some mild pain upon questioning in hip. OBJECTIVE: VITAL SIGNS: Temperature 37.1. Vital signs stable. GENERAL: Shows a pleasant elderly female. She is lying in bed. She is awake, alert and appropriate. Improved from yesterday. Her incision continues to have modest amounts of serosanguineous drainage. It is not actively draining through the incision site but just on the bandage. Her hip is located. NEUROLOGIC: She is neurologically intact. She can dorsiflex and plantarflex her foot appropriate. LABORATORY DATA: No labs today. ASSESSMENT: A 70-year-old white female a little over a week out from I\T\D of an infected hip done 3 weeks ago. She is clinically making improvements. She continues to have some wound drainage. Her white count is continued to be elevated. Exact etiology of this is unclear. I do not think this is coming from her hip joint. PLAN: We will continue IV antibiotics including daptomycin and PO rifampin as long as her liver functions are adequate. We will continue routine wound care. Medical management as per the medicine service. DVT prophylaxis including thigh-high TEDs, SCDs and heparin. Any orthopedic questions can be directed to me at [phone]. [facility] [place]
[2016-09-28] VITALS (24 sets, daily range): BP systolic 111–146; BP diastolic 49–68; PULSE 77–87; TEMP 36.6–37.3; O2SAT 98–100
[2016-09-28] MEDS: HEPARIN SOD 5000 UNIT/0.5 ML CARP SQ SCH ×3 (00:54→15:43)
[2016-09-28] MEDS: ACETAMINOPHEN IV 650 MG in EMPTY BAG 0 ML IV PRN ×3 (06:48→23:53)
[2016-09-28 07:57] LABS: HEMATOCRIT 23.4 % (37-47); MEAN CORPUSCULAR HGB CONC 33.3 g/dl (32-36); MEAN PLATELET VOLUME 9.8 fL (7.4-10.4); PLATELET COUNT 244 K/uL (130-400); WHITE BLOOD COUNT 27.94 K/uL (4.8-10.8)
[2016-09-28 08:07] LABS: BUN/CREATININE RATIO 14.9 (10-20); CALCIUM 7.9 mg/dl (8.5-10.1); CREATININE 2.8 mg/dl (0.60-1.20); POTASSIUM 3.7 mmol/L (3.5-5.1)
[2016-09-28 08:21] LABS: ALB/GLOB RATIO 0.4 (0.9-2)
--- NOTE | 2016-09-28 08:34 | Progress Note ---
Progress Note Date of Service September 28, 2016. Progress Note Will place permcath tomorrow. Scheduled for 0800
[2016-09-28] MEDS: BOOST BREEZE NUTRITION DRINK 1 BOX PO SCH (08:45)
[2016-09-28] MEDS: CEFTRIAXONE SOD INJ 1,000 MG in DEXTROSE 5% 50ML 50 ML IV SCH (08:46)
[2016-09-28] MEDS: DOCUSATE SODIUM 100 MG/10 ML UDC PO SCH ×3 (08:47→21:36)
[2016-09-28] MEDS: CHOLECALCIFEROL 1000 INTER.UNIT TAB PO SCH ×2 (08:47→08:48)
[2016-09-28] MEDS: ASCORBIC ACID 500 MG TAB PO SCH (08:47)
[2016-09-28] MEDS: MULTIVITAMINS W/MINERALS 15ML UDP PO SCH (08:47)
[2016-09-28] MEDS: FLUOXETINE HCL 20 MG/5 ML UDP PO SCH (08:47)
[2016-09-28] MEDS: PANTOprazole INJ 40 MG in SYRINGE 0 ML IV SCH ×2 (08:47→21:14)
[2016-09-28] MEDS: VITAMIN B COMPLEX TAB PO SCH (08:47)
[2016-09-28] MEDS: LIDOCAINE HCL 2% VISCOUS SOLN 60 ML, DiphenhydrAMINE HCL SYRUP 150 MG, ALUMINUM/MAGNESI... MT SCH ×8 (08:47→21:30)
--- NOTE | 2016-09-28 08:54 | Nephrology Progress Note ---
Nephrology Progress Note Date of Service: September 28, 2016. Subjective 70 yo female with oliguric atn who is on dialysis now. currently with a temporary dialysis catheter. volume status much improved. tolerating tube feeds. pt comfortable. weak. Objective Date Time Temp Pulse Resp B/P Pulse Ox O2 Delivery O2 Flow Rate FiO2 09/28/16 07:49 37.0 87 20 135/68 98 Nasal Cannula 3.0 09/28/16 04:00 Nasal Cannula 3.0 09/28/16 03:23 37.3 86 22 146/68 99 Nasal Cannula 3.0 09/27/16 23:59 Nasal Cannula 3.0 09/27/16 23:09 36.6 85 18 135/69 100 Nasal Cannula 3.0 09/27/16 20:00 Nasal Cannula 3.0 09/27/16 18:44 37.1 86 20 133/72 99 Nasal Cannula 3.0 09/27/16 16:00 Nasal Cannula 3.0 09/27/16 15:57 37.2 84 18 127/56 99 Nasal Cannula 3.0 09/27/16 12:31 36.9 90 123/52 09/27/16 12:30 87 121/57 09/27/16 12:15 83 116/58 09/27/16 12:00 82 122/62 09/27/16 12:00 98 Nasal Cannula 3.0 09/27/16 11:45 79 127/60 09/27/16 11:30 81 115/55 09/27/16 11:15 78 120/57 09/27/16 11:00 80 129/58 09/27/16 10:45 81 126/60 09/27/16 10:30 86 128/57 09/27/16 10:20 36.9 87 24 125/55 2.0 09/27/16 10:15 87 125/55 09/27/16 10:00 89 122/56 09/27/16 09:45 89 117/54 09/27/16 09:40 36.9 85 139/61 09/27/16 09:30 85 138/63 Physical Exam: General-aaox3 Eyes-no scleral icterus ENT-dry mouth, +ng tube Neck-supple Lungs-cta Heart-rrr Abdomen-bs+ s/nt Extremities-mild edema, much improved volume status, left hip bandaged Neuro-nonfocal Current Inpatient Medications Medications (Trade) Dose Ordered Sig/Quan Route Start Time Stop Time Status Last Admin Dose Admin Cholecalciferol (Vitamin D Tab) 4,000 inter.unit QAM PO 09/18/16 09:00 10/18/16 08:59 09/27/16 14:14 4,000 INTER.UNIT Vitamin B Complex (Vitamin B Complex) 1 tab DAILY PO 09/18/16 09:00 10/18/16 08:59 09/27/16 14:13 1 TAB Miscellaneous Information (Order Awaiting Action) 1 ea QS N/A 09/17/16 16:00 10/17/16 15:59 Acetaminophen (Tylenol Tab) 650 mg Q6H PRN PO 09/18/16 08:15 10/18/16 08:14 09/20/16 02:00 650 MG Daptomycin (Consult) 1 ea UD PRN N/A 09/19/16 08:30 10/19/16 08:29 Miconazole Nitrate (Desenex Powder) 1 appln PRN PRN EXT 09/20/16 15:15 10/20/16 15:14 09/25/16 20:20 1 APPLN Enteral Nutritional Formula 1 box 1 box [id number] PO 09/21/16 17:00 10/21/16 16:59 Daptomycin 650 mg/ Sodium Chloride 63 ml @ 120 mls/hr Q48H IV 09/23/16 16:00 11/02/16 08:59 09/27/16 17:13 120 MLS/HR Acetaminophen/ Empty Bag (Ofirmev Iv/ Empty Iv Bag 100ml) 65 ml @ 260 mls/hr Q6H PRN IV 09/22/16 16:30 10/22/16 16:29 09/28/16 06:48 260 MLS/HR Heparin Sodium (Porcine) 5000 unit 5,000 unit Q8H SQ 09/23/16 16:00 10/23/16 15:59 09/28/16 00:54 5,000 UNIT Pantoprazole Sodium/Syringe (Protonix Inj/ Syringe) 10 ml @ 5 mls/min DAILY@09,21 IV 09/23/16 21:00 10/23/16 20:59 09/27/16 21:05 5 MLS/MIN Enteral Nutritional Formula (Novasource Renal) 1,000 ml UD PRN PO 09/24/16 09:00 10/24/16 08:59 09/27/16 13:12 1,000 ML Heparin Sodium (Porcine) (Heparin 10 Unit/ ml 5 ml Flush) 5 ml PRN PRN FLUSH 09/24/16 15:15 10/24/16 15:14 09/27/16 21:43 5 ML Fluoxetine HCl (Prozac Soln) 20 mg QAM PO 09/26/16 09:00 10/26/16 08:59 09/27/16 14:12 20 MG Multivitamins Therapeutic (Cerovite Liquid) 15 ml QAM PO 09/26/16 09:00 10/26/16 08:59 09/27/16 14:11 15 ML Ascorbic Acid (Vitamin C Tab) 1,000 mg QAM PO 09/26/16 09:00 10/26/16 08:59 09/27/16 14:13 1,000 MG Cholecalciferol (Vitamin D Tab) 1,000 inter.unit QAM PO 09/26/16 09:00 10/26/16 08:59 09/27/16 14:14 1,000 INTER.UNIT Docusate Sodium 100 mg 100 mg BID PO 09/25/16 21:00 10/25/16 20:59 09/27/16 21:05 100 MG Ceftriaxone Sodium/Dextrose 60 ml @ 100 mls/hr DAILY IV 09/26/16 09:00 09/29/16 09:35 09/27/16 14:07 100 MLS/HR Lidocaine HCl/ Diphenhydramine HCl/Al Hydroxide/ Mg Hydroxide/ Glycerin/Barcode (VISCOUS LIDOCAINE 2% Soln/ Benadryl Syrup/ Maalox Susp/ Glycerin Anhydrous Soln) BID MT 09/26/16 21:00 10/26/16 20:59 09/27/16 21:05 5 ML Epoetin Jensen (Procrit Inj) 10,000 units ONE ONCE IV. 09/28/16 08:45 09/28/16 08:46 UNV Last 24 Hours Test 09/27/16 14:03 09/28/16 07:18 Total Bilirubin 0.7 mg/dl 0.6 mg/dl Direct Bilirubin 0.5 mg/dl Aspartate Amino Transf (AST/SGOT) 22 U/L 17 U/L Alanine Aminotransferase (ALT/SGPT) 22 U/L 21 U/L Alkaline Phosphatase 202 U/L 174 U/L Total Protein 6.3 gm/dl 5.6 gm/dl Albumin 1.8 gm/dl 1.7 gm/dl White Blood Count 27.94 K/uL Red Blood Count 2.60 M/uL Hemoglobin 7.8 g/dL Hematocrit 23.4 % Mean Corpuscular Volume 90.0 fL Mean Corpuscular Hemoglobin 30.0 pg Mean Corpuscular Hemoglobin Concent 33.3 g/dl RDW Standard Deviation 52.7 fL RDW Coefficient of Variation 16.9 % Platelet Count 244 K/uL Mean Platelet Volume 9.8 fL Sodium Level 137 mmol/L Potassium Level 3.7 mmol/L Chloride Level 102 mmol/L Carbon Dioxide Level 29 mmol/L Anion Gap 6.0 mmol/L Blood Urea Nitrogen 42 mg/dl Creatinine 2.80 mg/dl Est Creatinine Clear Calc Drug Dose 21.5 ml/min Estimated GFR () 18.8 Estimated GFR (Non- 16.2 BUN/Creatinine Ratio 14.9 Random Glucose 117 mg/dl Calcium Level 7.9 mg/dl Globulin 3.9 gm/dl Albumin/Globulin Ratio 0.4 Assessment & Plan [id number]-has a temporary dialysis catheter. for dialysis today. plan to remove temporary dialysis catheter tomorrow am and place tunneled line by Dr. Zurita. spoke to daughter Diego who is aware. Anemia-hg levels are below goal and will continue procrit trying to help raise blood counts.
[2016-09-28] MEDS ORDERED: EPOETIN ALFA 10,000 UNITS/ML VIAL IV. SCH (09:00)
--- NOTE | 2016-09-28 12:32 | Gastroenterology Progress Note ---
Progress Note Date of Service: September 28, 2016 Subjective Pt evaluation today including: conversation w/ patient, physical exam, chart review, lab review, review of studies, review of inpatient medication list Ms. Mccoy is a 70 yr old female admitted with hip sepsis. GI consulted for elevated LFTs, now resolved. GI also provided advice regarding ileus, now resolved and nutrition - being managed with nasogastric feedings with speech following. Today, pt's mucositis/lips and tongue lesions appear slightly larger than previous. Pt with c/o mouth and throat pain with swallowing. HSV pending. Review of Systems Constitutional: No fever ENT: No unusual epistaxis Respiratory: No cough Cardiac: No chest pain Abdomen: + constipation (resolved with enema and laxatives yesterday), + odynophagia, No GI bleeding, No jaundice, No nausea, No pain, No vomiting Musculoskeletal: + joint pain (left hip) Female : No dysuria Neuro: No memory loss Psych: No depression symptoms Heme: No abnormal bleeding/bruising Endo: + fatigue (improving) Skin: + rash (painful, crusting tongue and lips lesions) Medications Current Inpatient Medications Medications (Trade) Dose Ordered Sig/Quan Route Start Time Stop Time Status Last Admin Dose Admin Cholecalciferol (Vitamin D Tab) 4,000 inter.unit QAM PO 09/18/16 09:00 10/18/16 08:59 09/28/16 08:48 4,000 INTER.UNIT Vitamin B Complex (Vitamin B Complex) 1 tab DAILY PO 09/18/16 09:00 10/18/16 08:59 09/28/16 08:47 1 TAB Miscellaneous Information (Order Awaiting Action) 1 ea QS N/A 09/17/16 16:00 10/17/16 15:59 Acetaminophen (Tylenol Tab) 650 mg Q6H PRN PO 09/18/16 08:15 10/18/16 08:14 09/20/16 02:00 650 MG Daptomycin (Consult) 1 ea UD PRN N/A 09/19/16 08:30 10/19/16 08:29 Miconazole Nitrate (Desenex Powder) 1 appln PRN PRN EXT 09/20/16 15:15 10/20/16 15:14 09/25/16 20:20 1 APPLN Enteral Nutritional Formula 1 box 1 box [id number] PO 09/21/16 17:00 10/21/16 16:59 Daptomycin 650 mg/ Sodium Chloride 63 ml @ 120 mls/hr Q48H IV 09/23/16 16:00 11/02/16 08:59 09/27/16 17:13 120 MLS/HR Acetaminophen/ Empty Bag (Ofirmev Iv/ Empty Iv Bag 100ml) 65 ml @ 260 mls/hr Q6H PRN IV 09/22/16 16:30 10/22/16 16:29 09/28/16 06:48 260 MLS/HR Heparin Sodium (Porcine) 5000 unit 5,000 unit Q8H SQ 09/23/16 16:00 10/23/16 15:59 09/28/16 08:49 5,000 UNIT Pantoprazole Sodium/Syringe (Protonix Inj/ Syringe) 10 ml @ 5 mls/min DAILY@09,21 IV 09/23/16 21:00 10/23/16 20:59 09/28/16 08:47 5 MLS/MIN Enteral Nutritional Formula (Novasource Renal) 1,000 ml UD PRN PO 09/24/16 09:00 10/24/16 08:59 09/27/16 13:12 1,000 ML Heparin Sodium (Porcine) (Heparin 10 Unit/ ml 5 ml Flush) 5 ml PRN PRN FLUSH 09/24/16 15:15 10/24/16 15:14 09/27/16 21:43 5 ML Fluoxetine HCl (Prozac Soln) 20 mg QAM PO 09/26/16 09:00 10/26/16 08:59 09/28/16 08:47 20 MG Multivitamins Therapeutic (Cerovite Liquid) 15 ml QAM PO 09/26/16 09:00 10/26/16 08:59 09/28/16 08:47 15 ML Ascorbic Acid (Vitamin C Tab) 1,000 mg QAM PO 09/26/16 09:00 10/26/16 08:59 09/28/16 08:47 1,000 MG Cholecalciferol (Vitamin D Tab) 1,000 inter.unit QAM PO 09/26/16 09:00 10/26/16 08:59 09/28/16 08:47 1,000 INTER.UNIT Docusate Sodium 100 mg 100 mg BID PO 09/25/16 21:00 10/25/16 20:59 09/28/16 08:47 100 MG Ceftriaxone Sodium/Dextrose 60 ml @ 100 mls/hr DAILY IV 09/26/16 09:00 09/29/16 09:35 09/28/16 08:46 100 MLS/HR Lidocaine HCl/ Diphenhydramine HCl/Al Hydroxide/ Mg Hydroxide/ Glycerin/Barcode (VISCOUS LIDOCAINE 2% Soln/ Benadryl Syrup/ Maalox Susp/ Glycerin Anhydrous Soln) BID MT 09/26/16 21:00 10/26/16 20:59 09/28/16 08:47 5 ML Epoetin Jensen (Procrit Inj) 10,000 units TODAY@0900 IV. 09/28/16 09:00 09/28/16 18:00 09/28/16 11:59 10,000 UNITS Objective Vital Signs Date Time Temp Pulse Resp B/P Pulse Ox O2 Delivery O2 Flow Rate FiO2 09/28/16 12:15 77 122/65 09/28/16 12:00 77 122/57 09/28/16 11:53 36.6 77 16 132/58 100 Nasal Cannula 3.0 09/28/16 11:45 78 119/49 09/28/16 11:30 79 126/58 09/28/16 11:15 77 132/58 09/28/16 11:00 80 118/58 09/28/16 10:45 78 127/65 09/28/16 10:30 80 119/54 09/28/16 10:15 82 114/54 09/28/16 10:00 81 128/52 09/28/16 09:53 79 135/56 09/28/16 09:45 36.9 85 133/57 09/28/16 08:00 98 Nasal Cannula 3.0 09/28/16 07:49 37.0 87 20 135/68 98 Nasal Cannula 3.0 09/28/16 04:00 Nasal Cannula 3.0 09/28/16 03:23 37.3 86 22 146/68 99 Nasal Cannula 3.0 09/27/16 23:59 Nasal Cannula 3.0 09/27/16 23:09 36.6 85 18 135/69 100 Nasal Cannula 3.0 09/27/16 20:00 Nasal Cannula 3.0 09/27/16 18:44 37.1 86 20 133/72 99 Nasal Cannula 3.0 09/27/16 16:00 Nasal Cannula 3.0 09/27/16 15:57 37.2 84 18 127/56 99 Nasal Cannula 3.0 09/27/16 12:31 36.9 90 123/52 09/27/16 12:30 87 121/57 Physical Exam General Appearance: + mild distress (mouth and left hip discomfort) Neck: no JVD Respiratory/Chest: lungs clear Cardiovascular: regular rate, rhythm, + systolic murmur (2/6) Abdomen: non tender, soft Extremities: non-tender Neurologic/Psych: alert, normal mood/affect, oriented x 3 Skin: no jaundice, + pertinent finding (large tongue lesion with crusting as well as similar small lesions under nose, on the corners of the lips) Laboratory Results Last 24 Hours Test 09/27/16 14:03 09/28/16 07:18 09/28/16 11:17 Total Bilirubin 0.7 mg/dl 0.6 mg/dl Direct Bilirubin 0.5 mg/dl Aspartate Amino Transf (AST/SGOT) 22 U/L 17 U/L Alanine Aminotransferase (ALT/SGPT) 22 U/L 21 U/L Alkaline Phosphatase 202 U/L 174 U/L Total Protein 6.3 gm/dl 5.6 gm/dl Albumin 1.8 gm/dl 1.7 gm/dl White Blood Count 27.94 K/uL Red Blood Count 2.60 M/uL Hemoglobin 7.8 g/dL Hematocrit 23.4 % Mean Corpuscular Volume 90.0 fL Mean Corpuscular Hemoglobin 30.0 pg Mean Corpuscular Hemoglobin Concent 33.3 g/dl RDW Standard Deviation 52.7 fL RDW Coefficient of Variation 16.9 % Platelet Count 244 K/uL Mean Platelet Volume 9.8 fL Sodium Level 137 mmol/L Potassium Level 3.7 mmol/L Chloride Level 102 mmol/L Carbon Dioxide Level 29 mmol/L Anion Gap 6.0 mmol/L Blood Urea Nitrogen 42 mg/dl Creatinine 2.80 mg/dl Est Creatinine Clear Calc Drug Dose 21.5 ml/min Estimated GFR () 18.8 Estimated GFR (Non- 16.2 BUN/Creatinine Ratio 14.9 Random Glucose 117 mg/dl Calcium Level 7.9 mg/dl Globulin 3.9 gm/dl Albumin/Globulin Ratio 0.4 Bedside Glucose 116 mg/dl Assessment and Plan Ms. Mccoy is a 70 yr old female with 1. Elevated LFTs, now resolved caused by: Drug induced liver injury (likely Rifampin) and effect of sepsis on liver. 2. Ileus, constipation resolved. 3. Poor nutritional status - improving with enteral feedings. 4. Stomatitis - ? from HSV -serology is pending. Plan: 1. Will review today's LFTs when available. 2. Appreciate speech path input. 3. Will watch for HSV serology. 4. Consider further w/u from ENT or derm for tongue and lips lesions. 5. Will sign off. Please notify us if new/worsening GI issues. I have seen , examined and agree with the plan as outlined by JA Rider as above. -exam reveals soft abd -continue current care ? oral lesion etiology
--- NOTE | 2016-09-28 15:16 | PROGRESS NOTE ---
DATE: 09/28/2016 SUBJECTIVE: A 70-year-old white female now 9 days out from I\T\D of an infected total hip wound and a little over 3 weeks out from initial arthroplasty. She is making gradual improvement daily. Complains of some hip pain. She has been much more awake, alert and oriented today compared to yesterday. OBJECTIVE: VITAL SIGNS: Temperature is 36.8. Vital signs stable. PHYSICAL EXAMINATION: Reveals a pleasant elderly female. She is lying in bed. She has got an NG tube in place. Examination of the left leg reveals the leg to be well aligned. Dressing is clean, dry and intact. A little bit of drainage on the dressing. Hip is located. She can dorsiflex and plantarflex her foot appropriately. Examination of the left hip wound reveals no active drainage. There is some drainage on the dressing, but decreased from yesterday. She is neurologically intact. LABORATORY DATA: Hemoglobin 7.8, hematocrit 23.4. White cell count 27.94. ASSESSMENT: A 70-year-old white female status post incision and drainage of an infected total hip arthroplasty with multiple underlying comorbidities and currently still in renal failure. She is making clinical improvement. She is more awake, alert and oriented. She is having less swelling. The drainage is decreased today. PLAN: We will continue DVT prophylaxis including thigh-high TEDs, SCDs, and subQ heparin. She will continue on the ulcer precautions. Continue the antibiotics. She is on daptomycin for her hip and she needs to stay on that for probably 6 weeks. The idea is to reintroduce rifampin if medically stable and acceptable. If not, we will just stick with the daptomycin. We will continue wound care. Any orthopedic questions can be directed to me at [phone]. MTDD
[2016-09-28] MEDS ORDERED: ACYCLOVIR SOD INJ 750 MG in DEXTROSE 5% 250ML 250 ML IV SCH (17:30)
--- NOTE | 2016-09-28 18:17 | Progress Note ---
Medicine Progress Note Date & Time of Visit: September 28, 2016 at ~ 16:30 . Subjective Afebrile since 09/25. Weak. Uncomfortable from NGT and orolabial lesions. No cough or SOB. No chest pain. Some nausea, no emesis. Moved bowel after receiving enema. Nurses report urinary incontinence and excoriation of skin. . Objective Last 8 Hrs Date Time Temp Pulse Resp B/P Pulse Ox O2 Delivery O2 Flow Rate FiO2 09/28/16 15:03 36.8 82 18 111/65 100 Nasal Cannula 2.0 09/28/16 13:20 36.8 84 119/57 09/28/16 13:00 80 118/55 09/28/16 12:45 79 114/59 09/28/16 12:30 77 126/56 09/28/16 12:15 77 122/65 09/28/16 12:00 77 122/57 09/28/16 12:00 98 Nasal Cannula 3.0 09/28/16 11:53 36.6 77 16 132/58 100 Nasal Cannula 3.0 09/28/16 11:45 78 119/49 09/28/16 11:30 79 126/58 09/28/16 11:15 77 132/58 09/28/16 11:00 80 118/58 09/28/16 10:45 78 127/65 09/28/16 10:30 80 119/54 09/28/16 10:15 82 114/54 Physical Exam: General- chronically ill; no acute distress Eyes- anicteric ENT- left NGT; labial ulcerations; erythema of tongue Neck- no JVD Lungs- clear to auscultation Heart- RRR, II/ sys murmur LSB Abdomen- + BS, soft, nontender Extremities- 2+ pretibial edema Neuro- alert . Laboratory Results: Last 24 Hours Test 09/28/16 04:44 09/28/16 07:18 09/28/16 11:17 09/28/16 17:18 White Blood Count 27.94 K/uL Red Blood Count 2.60 M/uL Hemoglobin 7.8 g/dL Hematocrit 23.4 % Mean Corpuscular Volume 90.0 fL Mean Corpuscular Hemoglobin 30.0 pg Mean Corpuscular Hemoglobin Concent 33.3 g/dl RDW Standard Deviation 52.7 fL RDW Coefficient of Variation 16.9 % Platelet Count 244 K/uL Mean Platelet Volume 9.8 fL Sodium Level 137 mmol/L Potassium Level 3.7 mmol/L Chloride Level 102 mmol/L Carbon Dioxide Level 29 mmol/L Anion Gap 6.0 mmol/L Blood Urea Nitrogen 42 mg/dl Creatinine 2.80 mg/dl Est Creatinine Clear Calc Drug Dose 21.5 ml/min Estimated GFR () 18.8 Estimated GFR (Non- 16.2 BUN/Creatinine Ratio 14.9 Random Glucose 117 mg/dl Calcium Level 7.9 mg/dl Total Bilirubin 0.6 mg/dl Aspartate Amino Transf (AST/SGOT) 17 U/L Alanine Aminotransferase (ALT/SGPT) 21 U/L Alkaline Phosphatase 174 U/L Total Protein 5.6 gm/dl Albumin 1.7 gm/dl Globulin 3.9 gm/dl Albumin/Globulin Ratio 0.4 Bedside Glucose 116 mg/dl Assessment & Plan MRSA INFECTION LEFT HIP S/P irrigation. ID consulted. Rifampin discontinued due to elevated LFT's. Continue IV daptomycin. ACUTE KIDNEY INJURY ATN. Nephrology consulted. Continue hemodialysis. Permcath placement anticipated. ANEMIA Hgb 7.8 this morning. Anemia probably multifactorial. Transfuse PRN to maintain adequate H/H. Follow. ENCEPHALOPATHY Secondary to infection. Improved. NUTRITION Unable to take oral nutrition due to stomatitis. Continue NG feedings. OROLABIAL LESIONS Unable to eat or drink much because of oral discomfort. ? viral. HSV serologies pending. Check HSV PCR and CMV culture from lesions. Empiric Rx with IV acyclovir. Consult ENT. BIPOLAR DISORDER Continue usual meds as able. DEMENTIA Monitor for delirium. SLEEP APNEA Continue O2. ? resume CPAP. VTE PROPHYLAXIS SQ heparin. SCD's. Ambulate as able. DISPOSITION To be determined. Anticipate need for skilled care or inpatient rehab. Internal Medicine follow-up with Dr. Seth. . Consultants: Orthopedics Nephrology Procedures: CT hip 1. 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 No evidence of fracture 3. No significant joint effusion although the examination is limited due to streak artifact 4. Partially visualized 6 cm collection within the subcutaneous tissues lateral to the left gluteal musculature. This is not possible on the basis of this study to determine whether this collection is infected or sterile. Liver ultrasound No significant abnormality identified within the right upper quadrant. Current Inpatient Medications: Current Inpatient Medications Medications (Trade) Dose Ordered Sig/Quan Route Start Time Stop Time Status Last Admin Dose Admin Cholecalciferol (Vitamin D Tab) 4,000 inter.unit QAM PO 09/18/16 09:00 10/18/16 08:59 09/28/16 08:48 4,000 INTER.UNIT Vitamin B Complex (Vitamin B Complex) 1 tab DAILY PO 09/18/16 09:00 10/18/16 08:59 09/28/16 08:47 1 TAB Miscellaneous Information (Order Awaiting Action) 1 ea QS N/A 09/17/16 16:00 10/17/16 15:59 Acetaminophen (Tylenol Tab) 650 mg Q6H PRN PO 09/18/16 08:15 10/18/16 08:14 09/20/16 02:00 650 MG Daptomycin (Consult) 1 ea UD PRN N/A 09/19/16 08:30 10/19/16 08:29 Miconazole Nitrate 1 appln 1 appln PRN PRN EXT 09/20/16 15:15 10/20/16 15:14 09/25/16 20:20 1 APPLN Daptomycin 650 mg/ Sodium Chloride 63 ml @ 120 mls/hr Q48H IV 09/23/16 16:00 11/02/16 08:59 09/27/16 17:13 120 MLS/HR Acetaminophen/ Empty Bag (Ofirmev Iv/ Empty Iv Bag 100ml) 65 ml @ 260 mls/hr Q6H PRN IV 09/22/16 16:30 10/22/16 16:29 09/28/16 14:34 260 MLS/HR Heparin Sodium (Porcine) 5000 unit 5,000 unit Q8H SQ 09/23/16 16:00 10/23/16 15:59 09/28/16 15:43 5,000 UNIT Pantoprazole Sodium/Syringe (Protonix Inj/ Syringe) 10 ml @ 5 mls/min DAILY@09,21 IV 09/23/16 21:00 10/23/16 20:59 09/28/16 08:47 5 MLS/MIN Heparin Sodium (Porcine) (Heparin 10 Unit/ ml 5 ml Flush) 5 ml PRN PRN FLUSH 09/24/16 15:15 10/24/16 15:14 5/2/17 21:43 5 ML Fluoxetine HCl (Prozac Soln) 20 mg QAM PO 09/26/16 09:00 10/26/16 08:59 09/28/16 08:47 20 MG Multivitamins Therapeutic (Cerovite Liquid) 15 ml QAM PO 09/26/16 09:00 10/26/16 08:59 09/28/16 08:47 15 ML Ascorbic Acid (Vitamin C Tab) 1,000 mg QAM PO 09/26/16 09:00 10/26/16 08:59 09/28/16 08:47 1,000 MG Cholecalciferol (Vitamin D Tab) 1,000 inter.unit QAM PO 09/26/16 09:00 10/26/16 08:59 09/28/16 08:47 1,000 INTER.UNIT Docusate Sodium 100 mg 100 mg BID PO 09/25/16 21:00 10/25/16 20:59 09/28/16 08:47 100 MG Ceftriaxone Sodium/Dextrose 60 ml @ 100 mls/hr DAILY IV 09/26/16 09:00 09/29/16 09:35 09/28/16 08:46 100 MLS/HR Lidocaine HCl/ Diphenhydramine HCl/Al Hydroxide/ Mg Hydroxide/ Glycerin/Barcode (VISCOUS LIDOCAINE 2% Soln/ Benadryl Syrup/ Maalox Susp/ Glycerin Anhydrous Soln) BID MT 09/26/16 21:00 10/26/16 20:59 09/28/16 08:47 5 ML Enteral Nutritional Formula 1000 ml 1,000 ml UD NG 09/28/16 14:30 10/28/16 14:29 Acyclovir Sodium/ Dextrose (Zovirax Inj/D5 250ml) 265 ml @ 265 mls/hr UD IV 09/28/16 17:30 10/08/16 17:29 UNV
[2016-09-28 19:15] LABS: URINE APPEARANCE CLOUDY (CLEAR); URINE COLOR DK YELLOW; URINE EPITHELIAL CELL AUTO >30 /lpf (0-5); URINE NITRITE NEG (NEG); URINE SPECIFIC GRAVITY 1.022 (1.000-1.030); UROBILINOGEN NEG (NEG)
[2016-09-28 19:16] LABS: MANUAL MICROSCOPIC REQUIRED? NO; REVIEW REQ? YES
[2016-09-28 19:17] LABS: URINE BILIRUBIN NEG (NEG)
[2016-09-28 19:30] LABS: HERPES SIMPLEX AB IGG-2 <0.90 INDEX; HSV1 AB IGM Negative (Negative); HSV2 AB IGM Negative (Negative)
[2016-09-28 19:41] LABS: URINE PATH CASTS 0-3 GRANULAR CASTS /lpf (0)
[2016-09-28] MEDS ORDERED: ACYCLOVIR CONSULT ACTIVE PRN (20:00)
[2016-09-28] MEDS: ACYCLOVIR SOD IV SCH (21:13)
[2016-09-28] MEDS: DEXTROSE 5% IV SCH (21:13)
[2016-09-29] VITALS (13 sets, daily range): BP systolic 123–149; BP diastolic 54–77; PULSE 74–86; TEMP 36.3–37; O2SAT 93–100
[2016-09-29 05:32] LABS: HEMATOCRIT 23.7 % (37-47); MEAN CELL VOLUME 91.9 fL (80-100); MEAN CORPUSCULAR HEMOGLOBIN 29.8 pg (25-34); MEAN CORPUSCULAR HGB CONC 32.5 g/dl (32-36); PLATELET COUNT 331 K/uL (130-400); RED BLOOD COUNT 2.58 M/uL (4.2-5.4); WHITE BLOOD COUNT 24.83 K/uL (4.8-10.8)
[2016-09-29 06:14] LABS: BUN/CREATININE RATIO 14.9 (10-20); CALCIUM 8.1 mg/dl (8.5-10.1); CREATININE 2.1 mg/dl (0.60-1.20)
[2016-09-29 06:16] LABS: ALB/GLOB RATIO 0.4 (0.9-2); BASO % 0.4 %; COMPLETE YES; EOS % 4.6 %; IG% 9.6 %; LYMPH % 9.8 %; LYMPH ABS # 2.44 K/uL (1.2-3.4); MONO % 9.4 %; NEUT % 66.2 %
[2016-09-29] MEDS: ACETAMINOPHEN IV 650 MG in EMPTY BAG 0 ML IV PRN ×2 (06:18→22:57)
[2016-09-29] MEDS ORDERED: HEPARIN SOD (PORCINE) 5000 UNIT/ML 1 ML VIAL ONE (07:45)
[2016-09-29] MEDS ORDERED: MIDAZOLAM HCL 1 MG/ML 2ML VIAL ONE (07:46)
[2016-09-29] MEDS ORDERED: FENTANYL CITRATE INJ 50 MCG/1 ML 2 ML VIAL ONE (07:46)
--- NOTE | 2016-09-29 07:52 | Progress Note ---
Progress Note Date of Service September 29, 2016. Progress Note Patient for permcath insertion and removal of temporary catheter. I have discussed the risks options and benefits of the procedure with the patient. The patient understands the risks options and benefits and agrees to the procedure. I have examined the patient, reviewed the History & Physical and in the interval since the performance of the History & Physical I have noted the following changes of clinical significance: No changes noted
--- NOTE | 2016-09-29 07:52 | Procedure Note ---
Pre-Mod Sedation Assessment General Date of Moderate Sedation: September 29, 2016. Vital Signs: Vital Signs Past 12 Hours Date Time Temp Pulse Resp B/P Pulse Ox O2 Delivery O2 Flow Rate FiO2 09/29/16 04:07 Nasal Cannula 3.0 09/29/16 04:00 36.8 82 20 127/66 98 Nasal Cannula 2.0 09/29/16 00:01 Nasal Cannula 3.0 09/29/16 00:00 36.6 82 22 136/64 99 Nasal Cannula 2.0 09/28/16 20:00 100 Nasal Cannula 2.0 Pre-Sedation Airway Assessment Oral Cavity: Dentures Smoking Status: Never Smoker Mallampati Classification: Class I ASA Classification: Class II Notes The planned sedation has been discussed with the patient and consent obtained. I have identified the patient, determined the appropriateness of sedation and have assessed the patient immediately prior to the procedure. All medicine(s) and interventions are by my order.
[2016-09-29] MEDS ORDERED: FENTANYL CITRATE INJ 50 MCG/1 ML 2 ML VIAL IV ONE (08:15)
[2016-09-29] MEDS ORDERED: MIDAZOLAM HCL 1 MG/ML 2ML VIAL IV ONE (08:15)
[2016-09-29] MEDS ORDERED: LIDOCAINE HCL 1% 20 ML VIAL INJ ONE ×2 (08:21→08:24)
[2016-09-29] MEDS ORDERED: HEPARIN SOD (PORCINE) 5000 UNIT/ML 1 ML VIAL IV ONE (08:36)
--- NOTE | 2016-09-29 08:39 | Procedure Note ---
Post-Moderate Sedation Plan General Date of Moderate Sedation September 29, 2016. Vital Signs: Vital Signs Past 12 Hours Date Time Temp Pulse Resp B/P Pulse Ox O2 Delivery O2 Flow Rate FiO2 09/29/16 04:07 Nasal Cannula 3.0 09/29/16 04:00 36.8 82 20 127/66 98 Nasal Cannula 2.0 09/29/16 00:01 Nasal Cannula 3.0 09/29/16 00:00 36.6 82 22 136/64 99 Nasal Cannula 2.0 Review - Discharge Plan Post Moderate Sedation Plan: On clinical assessment, the patient appears to have tolerated the conscious sedation without complications. Patient is recovering as anticipated. Patient will continue to be monitored by nursing and may be discharged when conscious sedation discharge criteria are met.
--- NOTE | 2016-09-29 08:40 | [facility] Post Operative Brief Note ---
Immediate Operative Summary Operative Date September 29, 2016. Pre-Operative Diagnosis acute renal failure Post-Operative Diagnosis same Procedure(s) Performed Insertion Of Right Internal Jugular Tunneled Dialysis Catheter, Ultrasound Localization Of Right Internal Jugular Vein, Fluoroscopy for Positioning, Removal Of Right Femoral Vein Temporary Dialysis Catheter, Moderate Concious Sedation [id number] Zurita Preassembler And Inspector Surgeon(s) none Estimated Blood Loss 5 ml Findings tip in distal SVC Specimens none Anesthesia Local with conscious sedation Complication(s) None Disposition
--- NOTE | 2016-09-29 08:42 | Procedure Note ---
Post-Moderate Sedation Plan General Date of Moderate Sedation September 29, 2016. Vital Signs: Vital Signs Past 12 Hours Date Time Temp Pulse Resp B/P Pulse Ox O2 Delivery O2 Flow Rate FiO2 09/29/16 08:38 18 126/54 98 Nasal Cannula 4.0 09/29/16 04:07 Nasal Cannula 3.0 09/29/16 04:00 36.8 82 20 127/66 98 Nasal Cannula 2.0 09/29/16 00:01 Nasal Cannula 3.0 09/29/16 00:00 36.6 82 22 136/64 99 Nasal Cannula 2.0 Review - Discharge Plan Post Moderate Sedation Plan: On clinical assessment, the patient appears to have tolerated the conscious sedation without complications. Patient is recovering as anticipated. Patient will continue to be monitored by nursing and may be discharged when conscious sedation discharge criteria are met.
--- NOTE | 2016-09-29 08:51 | PROGRESS NOTE ---
DATE: 09/29/2016 SUBJECTIVE: A 70-year-old white female week and a half out from I\T\D of an infected hip replacement with multiple comorbidities and/or additional medical issues. I went to visit her today, but she has been taken to the OR for a fistula. OBJECTIVE: VITAL SIGNS: Temperature 36.8. Vital signs stable. PHYSICAL EXAMINATION: Unattainable due to her trip to the OR. LABORATORY DATA: Hemoglobin 7.7. Hematocrit 23.7. White cell count 24.83. 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 She seems to making improvements. Clinically, she is improving daily. She could not visit with her today but her white cell count has improved. She is down in the OR getting a fistula. PLAN: From an orthopedic standpoint. We will continue on IV daptomycin for 6 weeks likely. We will continue routine wound care. I would be great to begin mobilizing her whenever possible. Any other orthopedic issues can be directed to me at [phone]. Continue DVT prophylaxis including thigh-high TEDs, SCDs, and subQ heparin. We need to continue aggressive ulcer and decubiti precautions and treatment.
[2016-09-29] MEDS: NOVASOURCE RENAL 1000ML BAG NG SCH (09:00)
[2016-09-29] MEDS: LIDOCAINE HCL 2% VISCOUS SOLN 60 ML, DiphenhydrAMINE HCL SYRUP 150 MG, ALUMINUM/MAGNESI... MT SCH ×8 (09:03→20:02)
[2016-09-29] MEDS: MULTIVITAMINS W/MINERALS 15ML UDP PO SCH (09:04)
[2016-09-29] MEDS: DOCUSATE SODIUM 100 MG/10 ML UDC PO SCH ×2 (09:04→20:04)
[2016-09-29] MEDS: FLUOXETINE HCL 20 MG/5 ML UDP PO SCH (09:04)
[2016-09-29] MEDS: CEFTRIAXONE SOD INJ 1,000 MG in DEXTROSE 5% 50ML 50 ML IV SCH (09:04)
[2016-09-29] MEDS: PANTOprazole INJ 40 MG in SYRINGE 0 ML IV SCH ×2 (09:05→20:03)
[2016-09-29] MEDS: CHOLECALCIFEROL 1000 INTER.UNIT TAB PO SCH ×2 (09:05→09:07)
[2016-09-29] MEDS: ASCORBIC ACID 500 MG TAB PO SCH (09:05)
[2016-09-29] MEDS: VITAMIN B COMPLEX TAB PO SCH (09:07)
--- NOTE | 2016-09-29 09:17 | DIAGNOSTIC IMAGING REPORT ---
DATE OF PROCEDURE: 09/29/2016 PREOPERATIVE DIAGNOSIS: Acute renal failure. POSTOPERATIVE DIAGNOSIS: Same. PROCEDURES: 1. Insertion of right internal jugular vein 19 cm PermCath. 2. Ultrasound localization right internal jugular vein. 3. Fluoroscopic imaging for positioning. 4. Conscious sedation 21 minutes. 5. Removal of temporary right femoral vein dialysis catheter. SURGEON: Dr. Zurita. ANESTHETIC: Local with conscious sedation. PROCEDURE INDICATIONS: The patient is a 70-year-old female who had an emergency dialysis after inserting a right femoral vein temporary dialysis catheter. She is now brought to the operating room for insertion of PermCath. She understood the risks, options and benefits and agreed to have this procedure. OPERATION AND FINDINGS: The patient was taken to the angio suite and placed in supine position. After right side of the neck and chest wall were prepped and draped in a sterile manner, local anesthetic was administered. Ultrasound was used to locate the internal jugular vein. It was of normal caliber, compressed easily and was patent. Using the ultrasound, a direct puncture was made of the right internal jugular vein. A wire was then passed centrally under imaged. It was passed down into the inferior vena cava from above. A stab wound was then made in the anterior chest wall. A 19 cm PermCath was inserted through the stab wound in the chest wall and brought out through the puncture site in the neck. The puncture site was then dilated until a 14-Khmer peel away sheath was inserted. The catheter was then inserted through the peel away sheath and the peel away sheath removed. Both ports aspirated and flushed easily. They were instilled with heparin. Catheter had a nice gentle curve with no kinking. The tip was in the distal superior vena cava. Catheter was then sutured to the anterior chest wall. The puncture site in the neck was closed with interrupted 4-0 subcuticular Vicryl and dressed with Dermabond. Sterile dressings were applied to the exit site. The patient left the angio suite in good condition and tolerated the procedure well.
[2016-09-29] MEDS: ACETAMINOPHEN 325 MG TAB PO PRN (15:27)
[2016-09-29] MEDS: DAPTOmycin IV 650 MG in SODIUM CHLORIDE 0.9% 50ML 50 ML IV SCH (16:14)
[2016-09-29] MEDS: DEXTROSE 5% IV SCH (20:02)
[2016-09-29] MEDS: ACYCLOVIR SOD IV SCH (20:02)
[2016-09-29] MEDS: HEPARIN SOD 5000 UNIT/0.5 ML CARP SQ SCH (20:06)
--- NOTE | 2016-09-29 20:25 | Progress Note ---
Medicine Progress Note Date & Time of Visit: September 29, 2016 at ~ 12:00 . Subjective Hemodialysis catheter placed today. No fever. Received oral care this morning. No chest pain. Mild cough after oral care; no SOB. No N/V. No diarrhea. [place] cath placed yesterday due to excoriated perineal skin and need for accurate urine outputs. Daughter visiting. . Objective Last 8 Hrs Date Time Temp Pulse Resp B/P Pulse Ox O2 Delivery O2 Flow Rate FiO2 09/29/16 19:27 36.3 82 22 138/71 94 Nasal Cannula 2.0 09/29/16 16:00 Room Air 09/29/16 15:23 36.8 82 20 138/70 94 Nasal Cannula 2.0 09/29/16 14:00 80 13 149/71 95 Room Air 09/29/16 13:00 80 15 146/72 93 Room Air Physical Exam: General- lying in bed; chronically ill; no acute distress Eyes- anicteric ENT- left NGT; labial ulcerations, ? slightly improved; erythema / ulceration of tongue Neck- no JVD Lungs- clear to auscultation Heart- RRR, II/ sys murmur LSB Abdomen- + BS, soft, nontender Extremities- 1-2+ pretibial edema Neuro- alert . Laboratory Results: Last 24 Hours Test 09/29/16 04:55 White Blood Count 24.83 K/uL Red Blood Count 2.58 M/uL Hemoglobin 7.7 g/dL Hematocrit 23.7 % Mean Corpuscular Volume 91.9 fL Mean Corpuscular Hemoglobin 29.8 pg Mean Corpuscular Hemoglobin Concent 32.5 g/dl Platelet Count 331 K/uL Mean Platelet Volume 10.0 fL Neutrophils (%) (Auto) 66.2 % Lymphocytes (%) (Auto) 9.8 % Monocytes (%) (Auto) 9.4 % Eosinophils (%) (Auto) 4.6 % Basophils (%) (Auto) 0.4 % Neutrophils # (Auto) 16.43 K/uL Lymphocytes # (Auto) 2.44 K/uL Monocytes # (Auto) 2.33 K/uL Eosinophils # (Auto) 1.15 K/uL Basophils # (Auto) 0.10 K/uL RDW Standard Deviation 53.8 fL RDW Coefficient of Variation 16.9 % Immature Granulocyte % (Auto) 9.6 % Immature Granulocyte # (Auto) 2.38 K/uL Nucleated RBC Absolute Count (auto) 0.12 K/uL Nucleated Red Blood Cells % 0.5 % Red Blood Cell Morphology Unremarkable Sodium Level 138 mmol/L Potassium Level 4.0 mmol/L Chloride Level 102 mmol/L Carbon Dioxide Level 30 mmol/L Anion Gap 6.0 mmol/L Blood Urea Nitrogen 31 mg/dl Creatinine 2.10 mg/dl Est Creatinine Clear Calc Drug Dose 27.7 ml/min Estimated GFR () 26.6 Estimated GFR (Non- 22.9 BUN/Creatinine Ratio 14.9 Random Glucose 91 mg/dl Calcium Level 8.1 mg/dl Total Bilirubin 0.5 mg/dl Aspartate Amino Transf (AST/SGOT) 18 U/L Alanine Aminotransferase (ALT/SGPT) 20 U/L Alkaline Phosphatase 170 U/L Total Creatine Kinase 19 U/L Total Protein 5.9 gm/dl Albumin 1.8 gm/dl Globulin 4.1 gm/dl Albumin/Globulin Ratio 0.4 Vitamin B12 Level > 2000 pg/mL Assessment & Plan MRSA INFECTION LEFT HIP S/P irrigation. ID consulted. Rifampin discontinued due to elevated LFT's. Continue IV daptomycin. LEUKOCYTOSIS WBC as high as 32,620 on 09/25/16. Right femoral hemodialysis cath removed. Repeat urine culture sent 09/28/16- results pending. Continue daptomycin for MRSA infection left hip. WBC today = 24,830. ACUTE KIDNEY INJURY ATN. Nephrology consulted. Continue hemodialysis. Permcath placed today. Creatinine today = 2.1. Ongoing management per Nephrology. ANEMIA Hgb as low as 7.3. Has received 2 units pRBC's. Hgb today = 7.7. Anemia probably multifactorial. Transfuse PRN to maintain adequate H/H. Follow. ENCEPHALOPATHY Secondary to infection. Improved. NUTRITION Has been unable to take oral nutrition due to stomatitis. Able to tolerate sips of water and Jello today. Advance diet as tolerated. Continue NG feedings. OROLABIAL LESIONS Unable to eat or drink much because of oral discomfort. ? viral. HSV serologies pending. HSV PCR and CMV culture from lesions pending. Empiric Rx with IV acyclovir. BIPOLAR DISORDER Continue usual meds as able. DEMENTIA Monitor for delirium. SLEEP APNEA Continue O2. ? resume CPAP. VTE PROPHYLAXIS SQ heparin. SCD's. Ambulate as able. DISPOSITION To be determined. Anticipate need for skilled care or inpatient rehab. Internal Medicine follow-up with Dr. Seth. Daughter visiting and given update. . Consultants: Orthopedics Nephrology Procedures: CT hip 1. 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 No evidence of fracture 3. No significant joint effusion although the examination is limited due to streak artifact 4. Partially visualized 6 cm collection within the subcutaneous tissues lateral to the left gluteal musculature. This is not possible on the basis of this study to determine whether this collection is infected or sterile. Liver ultrasound No significant abnormality identified within the right upper quadrant. Current Inpatient Medications: Current Inpatient Medications Medications (Trade) Dose Ordered Sig/Quan Route Start Time Stop Time Status Last Admin Dose Admin Cholecalciferol (Vitamin D Tab) 4,000 inter.unit QAM PO 09/18/16 09:00 10/18/16 08:59 09/29/16 09:05 4,000 INTER.UNIT Vitamin B Complex (Vitamin B Complex) 1 tab DAILY PO 09/18/16 09:00 10/18/16 08:59 09/29/16 09:07 1 TAB Miscellaneous Information (Order Awaiting Action) 1 ea QS N/A 09/17/16 16:00 10/17/16 15:59 Acetaminophen (Tylenol Tab) 650 mg Q6H PRN PO 09/18/16 08:15 10/18/16 08:14 09/29/16 15:27 650 MG Daptomycin (Consult) 1 ea UD PRN N/A 09/19/16 08:30 10/19/16 08:29 Miconazole Nitrate 1 appln 1 appln PRN PRN EXT 09/20/16 15:15 10/20/16 15:14 09/25/16 20:20 1 APPLN Daptomycin 650 mg/ Sodium Chloride 63 ml @ 120 mls/hr Q48H IV 09/23/16 16:00 11/02/16 08:59 09/29/16 16:14 120 MLS/HR Acetaminophen 650 mg/Empty Bag 65 ml @ 260 mls/hr Q6H PRN IV 09/22/16 16:30 10/22/16 16:29 09/29/16 06:18 260 MLS/HR Pantoprazole Sodium/Syringe (Protonix Inj/ Syringe) 10 ml @ 5 mls/min DAILY@09,21 IV 09/23/16 21:00 10/23/16 20:59 09/29/16 20:03 5 MLS/MIN Heparin Sodium (Porcine) (Heparin 10 Unit/ ml 5 ml Flush) 5 ml PRN PRN FLUSH 09/24/16 15:15 10/24/16 15:14 09/27/16 21:43 5 ML Fluoxetine HCl (Prozac Soln) 20 mg QAM PO 09/26/16 09:00 10/26/16 08:59 09/29/16 09:04 20 MG Multivitamins Therapeutic (Cerovite Liquid) 15 ml QAM PO 09/26/16 09:00 10/26/16 08:59 09/29/16 09:04 15 ML Ascorbic Acid (Vitamin C Tab) 1,000 mg QAM PO 09/26/16 09:00 10/26/16 08:59 09/29/16 09:05 1,000 MG Cholecalciferol (Vitamin D Tab) 1,000 inter.unit QAM PO 09/26/16 09:00 10/26/16 08:59 09/29/16 09:07 1,000 INTER.UNIT Docusate Sodium 100 mg BID PO 09/25/16 21:00 10/25/16 20:59 09/29/16 20:04 100 MG Lidocaine HCl/ Diphenhydramine HCl/Al Hydroxide/ Mg Hydroxide/ Glycerin/Barcode (VISCOUS LIDOCAINE 2% Soln/ Benadryl Syrup/ Maalox Susp/ Glycerin Anhydrous Soln) BID MT 09/26/16 21:00 10/26/16 20:59 09/29/16 20:02 5 ML Enteral Nutritional Formula (Novasource Renal) 1,000 ml UD NG 09/28/16 14:30 10/28/16 14:29 09/29/16 09:00 1,000 ML Heparin Sodium (Porcine) (Heparin Sq 5000 Unit/0.5ml) 5,000 unit Q12 SQ 09/29/16 21:00 10/29/16 20:59 09/29/16 20:06 5,000 UNIT Acyclovir Sodium 1 ea 1 ea UD PRN N/A 09/28/16 20:00 10/28/16 19:59 Acyclovir Sodium/ Dextrose (Zovirax Inj/D5 100ml) 105 ml @ 100 mls/hr DAILY@1999 IV 09/28/16 21:00 10/08/16 20:59 09/29/16 20:02 100 MLS/HR
--- NOTE | 2016-09-29 20:46 | Infectious Disease Progress Nt ---
Progress Note Date of Service September 29, 2016. Subjective Pt evaluation today including: conversation w/ patient, physical exam, chart review, lab review, review of studies, conversation w/ php consultant, review of inpatient medication list Complaining of severe oral pain. Otherwise no new complaints. Remains afebrile. White count starting to fall. Dialysis catheter placed. All Other Systems: Reviewed and Negative Medications Current Inpatient Medications Medications (Trade) Dose Ordered Sig/Quan Route Start Time Stop Time Status Last Admin Dose Admin Cholecalciferol (Vitamin D Tab) 4,000 inter.unit QAM PO 09/18/16 09:00 10/18/16 08:59 09/29/16 09:05 4,000 INTER.UNIT Vitamin B Complex (Vitamin B Complex) 1 tab DAILY PO 09/18/16 09:00 10/18/16 08:59 09/29/16 09:07 1 TAB Acetaminophen (Tylenol Tab) 650 mg Q6H PRN PO 09/18/16 08:15 10/18/16 08:14 09/29/16 15:27 650 MG Daptomycin (Consult) 1 ea UD PRN N/A 09/19/16 08:30 10/19/16 08:29 Miconazole Nitrate 1 appln 1 appln PRN PRN EXT 09/20/16 15:15 10/20/16 15:14 09/25/16 20:20 1 APPLN Daptomycin 650 mg/ Sodium Chloride 63 ml @ 120 mls/hr Q48H IV 09/23/16 16:00 11/02/16 08:59 09/29/16 16:14 120 MLS/HR Pantoprazole Sodium/Syringe (Protonix Inj/ Syringe) 10 ml @ 5 mls/min DAILY@ IV 09/23/16 21:00 10/23/16 20:59 09/29/16 20:03 5 MLS/MIN Heparin Sodium (Porcine) (Heparin 10 Unit/ ml 5 ml Flush) 5 ml PRN PRN FLUSH 09/24/16 15:15 10/24/16 15:14 09/27/16 21:43 5 ML Fluoxetine HCl (Prozac Soln) 20 mg QAM PO 09/26/16 09:00 10/26/16 08:59 09/29/16 09:04 20 MG Multivitamins Therapeutic (Cerovite Liquid) 15 ml QAM PO 09/26/16 09:00 10/26/16 08:59 09/29/16 09:04 15 ML Ascorbic Acid (Vitamin C Tab) 1,000 mg QAM PO 09/26/16 09:00 10/26/16 08:59 09/29/16 09:05 1,000 MG Cholecalciferol (Vitamin D Tab) 1,000 inter.unit QAM PO 09/26/16 09:00 10/26/16 08:59 09/29/16 09:07 1,000 INTER.UNIT Docusate Sodium 100 mg BID PO 09/25/16 21:00 10/25/16 20:59 09/29/16 20:04 100 MG Lidocaine HCl/ Diphenhydramine HCl/Al Hydroxide/ Mg Hydroxide/ Glycerin/Barcode (VISCOUS LIDOCAINE 2% Soln/ Benadryl Syrup/ Maalox Susp/ Glycerin Anhydrous Soln) BID MT 09/26/16 21:00 10/26/16 20:59 09/29/16 20:02 5 ML Enteral Nutritional Formula (Novasource Renal) 1,000 ml UD NG 09/28/16 14:30 10/28/16 14:29 09/29/16 09:00 1,000 ML Heparin Sodium (Porcine) (Heparin Sq 5000 Unit/0.5ml) 5,000 unit Q12 SQ 09/29/16 21:00 10/29/16 20:59 09/29/16 20:06 5,000 UNIT Acyclovir Sodium 1 ea 1 ea UD PRN N/A 09/28/16 20:00 10/28/16 19:59 Acyclovir Sodium/ Dextrose (Zovirax Inj/D5 100ml) 105 ml @ 100 mls/hr DAILY@1999 IV 09/28/16 21:00 10/08/16 20:59 09/29/16 20:02 100 MLS/HR Objective Vital Signs Date Time Temp Pulse Resp B/P Pulse Ox O2 Delivery O2 Flow Rate FiO2 09/29/16 19:27 36.3 82 22 138/71 94 Nasal Cannula 2.0 09/29/16 16:00 Room Air 09/29/16 15:23 36.8 82 20 138/70 94 Nasal Cannula 2.0 09/29/16 14:00 80 13 149/71 95 Room Air 09/29/16 13:00 80 15 146/72 93 Room Air 09/29/16 12:00 82 16 134/69 93 Room Air 09/29/16 12:00 Room Air 09/29/16 11:47 36.8 74 18 133/74 96 09/29/16 11:00 86 19 133/74 99 Nasal Cannula 2.0 09/29/16 10:00 76 13 129/73 99 Nasal Cannula 2.0 09/29/16 09:30 82 17 133/73 100 Nasal Cannula 2.0 09/29/16 09:00 37.0 79 16 123/77 99 Nasal Cannula 2.0 09/29/16 08:38 18 126/54 98 Nasal Cannula 4.0 09/29/16 07:30 Nasal Cannula 3.0 09/29/16 04:07 Nasal Cannula 3.0 09/29/16 04:00 36.8 82 20 127/66 98 Nasal Cannula 2.0 09/29/16 00:01 Nasal Cannula 3.0 09/29/16 00:00 36.6 82 22 136/64 99 Nasal Cannula 2.0 Physical Exam General Appearance: WD/WN, no apparent distress Eyes: normal inspection, sclerae normal ENT: + pertinent finding (Tongue and pharyngeal ulceration) Neck: supple, no adenopathy, + adenopathy present Respiratory/Chest: chest non-tender, lungs clear, normal breath sounds, no respiratory distress Cardiovascular: regular rate, rhythm, no gallop, no murmur Abdomen: normal bowel sounds, non tender, soft, no organomegaly Extremities: non-tender, no calf tenderness Neurologic/Psychiatric: alert, oriented x 3 Skin: normal color, + pertinent finding (Dressing intact left hip) Lymphatic: no adenopathy Laboratory Results Last 24 Hours Test 09/29/16 04:55 White Blood Count 24.83 K/uL Red Blood Count 2.58 M/uL Hemoglobin 7.7 g/dL Hematocrit 23.7 % Mean Corpuscular Volume 91.9 fL Mean Corpuscular Hemoglobin 29.8 pg Mean Corpuscular Hemoglobin Concent 32.5 g/dl Platelet Count 331 K/uL Mean Platelet Volume 10.0 fL Neutrophils (%) (Auto) 66.2 % Lymphocytes (%) (Auto) 9.8 % Monocytes (%) (Auto) 9.4 % Eosinophils (%) (Auto) 4.6 % Basophils (%) (Auto) 0.4 % Neutrophils # (Auto) 16.43 K/uL Lymphocytes # (Auto) 2.44 K/uL Monocytes # (Auto) 2.33 K/uL Eosinophils # (Auto) 1.15 K/uL Basophils # (Auto) 0.10 K/uL RDW Standard Deviation 53.8 fL RDW Coefficient of Variation 16.9 % Immature Granulocyte % (Auto) 9.6 % Immature Granulocyte # (Auto) 2.38 K/uL Nucleated RBC Absolute Count (auto) 0.12 K/uL Nucleated Red Blood Cells % 0.5 % Red Blood Cell Morphology Unremarkable Sodium Level 138 mmol/L Potassium Level 4.0 mmol/L Chloride Level 102 mmol/L Carbon Dioxide Level 30 mmol/L Anion Gap 6.0 mmol/L Blood Urea Nitrogen 31 mg/dl Creatinine 2.10 mg/dl Est Creatinine Clear Calc Drug Dose 27.7 ml/min Estimated GFR () 26.6 Estimated GFR (Non- 22.9 BUN/Creatinine Ratio 14.9 Random Glucose 91 mg/dl Calcium Level 8.1 mg/dl Total Bilirubin 0.5 mg/dl Aspartate Amino Transf (AST/SGOT) 18 U/L Alanine Aminotransferase (ALT/SGPT) 20 U/L Alkaline Phosphatase 170 U/L Total Creatine Kinase 19 U/L Total Protein 5.9 gm/dl Albumin 1.8 gm/dl Globulin 4.1 gm/dl Albumin/Globulin Ratio 0.4 Vitamin B12 Level > 2000 pg/mL Assessment and Plan 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 Now with severe stomatitis, HSV possible. Specimen taken, pt. begun on IV acyclovir. Will follow.
[2016-09-30] VITALS (20 sets, daily range): BP systolic 116–158; BP diastolic 51–95; PULSE 78–98; TEMP 35–37.4; O2SAT 93–98
[2016-09-30 05:43] LABS: HEMATOCRIT 24.4 % (37-47); MEAN CELL VOLUME 91.7 fL (80-100); MEAN CORPUSCULAR HEMOGLOBIN 29.7 pg (25-34); MEAN CORPUSCULAR HGB CONC 32.4 g/dl (32-36); MEAN PLATELET VOLUME 9.9 fL (7.4-10.4); PLATELET COUNT 376 K/uL (130-400); RED BLOOD COUNT 2.66 M/uL (4.2-5.4); WHITE BLOOD COUNT 19.91 K/uL (4.8-10.8)
[2016-09-30 06:11] LABS: CALCIUM 8.1 mg/dl (8.5-10.1); CREATININE 2.3 mg/dl (0.60-1.20); POTASSIUM 3.8 mmol/L (3.5-5.1)
[2016-09-30 06:13] LABS: ALB/GLOB RATIO 0.5 (0.9-2)
--- NOTE | 2016-09-30 07:25 | Nephrology Progress Note ---
Nephrology Progress Note Date of Service: September 30, 2016. Subjective 70 yo female with atn who is on dialysis now for kaleb. had tunneled line placed yesterday. urinating better. pts mouth appears to be improving. pt more comfortable. Objective Date Time Temp Pulse Resp B/P Pulse Ox O2 Delivery O2 Flow Rate FiO2 09/30/16 04:00 Room Air 09/30/16 03:40 36.8 98 20 137/68 93 Room Air 09/30/16 00:00 Room Air 09/30/16 00:00 36.6 82 20 148/66 95 Room Air 09/29/16 20:00 Room Air 09/29/16 19:27 36.3 82 22 138/71 94 Room Air 09/29/16 16:00 Room Air 09/29/16 15:23 36.8 82 20 138/70 94 Nasal Cannula 2.0 09/29/16 14:00 80 13 149/71 95 Room Air 09/29/16 13:00 80 15 146/72 93 Room Air 09/29/16 12:00 82 16 134/69 93 Room Air 09/29/16 12:00 Room Air 09/29/16 11:47 36.8 74 18 133/74 96 09/29/16 11:00 86 19 133/74 99 Nasal Cannula 2.0 09/29/16 10:00 76 13 129/73 99 Nasal Cannula 2.0 09/29/16 09:30 82 17 133/73 100 Nasal Cannula 2.0 09/29/16 09:00 37.0 79 16 123/77 99 Nasal Cannula 2.0 09/29/16 08:38 18 126/54 98 Nasal Cannula 4.0 09/29/16 07:30 Nasal Cannula 3.0 Physical Exam: General-[id number] Eyes-no scleral icterus ENT-mouth sores improving Neck-supple Lungs-decreased at bases Heart-regular Abdomen-bs+ s/nt Extremities-+1 edema, worse in left foot Neuro-nonfocal Current Inpatient Medications Medications (Trade) Dose Ordered Sig/Quan Route Start Time Stop Time Status Last Admin Dose Admin Cholecalciferol (Vitamin D Tab) 4,000 inter.unit QAM PO 09/18/16 09:00 10/18/16 08:59 09/29/16 09:05 4,000 INTER.UNIT Vitamin B Complex (Vitamin B Complex) 1 tab DAILY PO 09/18/16 09:00 10/18/16 08:59 09/29/16 09:07 1 TAB Acetaminophen (Tylenol Tab) 650 mg Q6H PRN PO 09/18/16 08:15 10/18/16 08:14 09/29/16 15:27 650 MG Daptomycin (Consult) 1 ea UD PRN N/A 09/19/16 08:30 10/19/16 08:29 Miconazole Nitrate 1 appln 1 appln PRN PRN EXT 09/20/16 15:15 10/20/16 15:14 09/25/16 20:20 1 APPLN Daptomycin 650 mg/ Sodium Chloride 63 ml @ 120 mls/hr Q48H IV 09/23/16 16:00 11/02/16 08:59 09/29/16 16:14 120 MLS/HR Pantoprazole Sodium/Syringe (Protonix Inj/ Syringe) 10 ml @ 5 mls/min DAILY@, IV 09/23/16 21:00 10/23/16 20:59 09/29/16 20:03 5 MLS/MIN Heparin Sodium (Porcine) (Heparin 10 Unit/ ml 5 ml Flush) 5 ml PRN PRN FLUSH 09/24/16 15:15 10/24/16 15:14 09/27/16 21:43 5 ML Fluoxetine HCl (Prozac Soln) 20 mg QAM PO 09/26/16 09:00 10/26/16 08:59 09/29/16 09:04 20 MG Multivitamins Therapeutic (Cerovite Liquid) 15 ml QAM PO 09/26/16 09:00 10/26/16 08:59 09/29/16 09:04 15 ML Ascorbic Acid (Vitamin C Tab) 1,000 mg QAM PO 09/26/16 09:00 10/26/16 08:59 09/29/16 09:05 1,000 MG Cholecalciferol (Vitamin D Tab) 1,000 inter.unit QAM PO 09/26/16 09:00 10/26/16 08:59 09/29/16 09:07 1,000 INTER.UNIT Docusate Sodium 100 mg BID PO 09/25/16 21:00 10/25/16 20:59 09/29/16 20:04 100 MG Lidocaine HCl/ Diphenhydramine HCl/Al Hydroxide/ Mg Hydroxide/ Glycerin/Barcode (VISCOUS LIDOCAINE 2% Soln/ Benadryl Syrup/ Maalox Susp/ Glycerin Anhydrous Soln) BID MT 09/26/16 21:00 10/26/16 20:59 09/29/16 20:02 5 ML Enteral Nutritional Formula (Novasource Renal) 1,000 ml UD NG 09/28/16 14:30 10/28/16 14:29 09/29/16 09:00 1,000 ML Heparin Sodium (Porcine) (Heparin Sq 5000 Unit/0.5ml) 5,000 unit Q12 SQ 09/29/16 21:00 10/29/16 20:59 09/29/16 20:06 5,000 UNIT Acyclovir Sodium 1 ea 1 ea UD PRN N/A 09/28/16 20:00 10/28/16 19:59 Acyclovir Sodium 250 mg/Dextrose 105 ml @ 100 mls/hr DAILY@2000 IV 09/28/16 21:00 10/08/16 20:59 09/29/16 20:02 100 MLS/HR Acetaminophen/ Empty Bag (Ofirmev Iv/ Empty Iv Bag 100ml) 65 ml @ 260 mls/hr Q6H PRN IV 09/29/16 22:30 10/29/16 22:29 09/29/16 22:57 260 MLS/HR Last 24 Hours Test 09/30/16 05:10 White Blood Count 19.91 K/uL Red Blood Count 2.66 M/uL Hemoglobin 7.9 g/dL Hematocrit 24.4 % Mean Corpuscular Volume 91.7 fL Mean Corpuscular Hemoglobin 29.7 pg Mean Corpuscular Hemoglobin Concent 32.4 g/dl RDW Standard Deviation 52.4 fL RDW Coefficient of Variation 17.1 % Platelet Count 376 K/uL Mean Platelet Volume 9.9 fL Nucleated RBC Absolute Count (auto) 0.26 K/uL Nucleated Red Blood Cells % 1.3 % Sodium Level 139 mmol/L Potassium Level 3.8 mmol/L Chloride Level 102 mmol/L Carbon Dioxide Level 29 mmol/L Anion Gap 8.0 mmol/L Creatinine 2.30 mg/dl Est Creatinine Clear Calc Drug Dose 25.3 ml/min Estimated GFR () 23.8 Estimated GFR (Non- 20.5 BUN/Creatinine Ratio 21.0 Random Glucose 129 mg/dl Calcium Level 8.1 mg/dl Total Bilirubin 0.5 mg/dl Aspartate Amino Transf (AST/SGOT) 17 U/L Alanine Aminotransferase (ALT/SGPT) 21 U/L Alkaline Phosphatase 188 U/L Total Protein 6.2 gm/dl Albumin 2.0 gm/dl Globulin 4.2 gm/dl Albumin/Globulin Ratio 0.5 Assessment & Plan [id number]-has a tunneled line. for dialysis today. 3k bath. 2 liters uf as tolerated. pt is urinating much better which is a good sign of potential recovery. will continue with dialysis for now. Anemia-hg levels are below goal. giving procrit transiently to help raise blood counts.
[2016-09-30] MEDS ORDERED: EPOETIN ALFA 10,000 UNITS/ML VIAL IV. ONE (08:00)
[2016-09-30] MEDS: NOVASOURCE RENAL 1000ML BAG NG SCH (09:10)
[2016-09-30] MEDS: MULTIVITAMINS W/MINERALS 15ML UDP PO SCH (09:11)
[2016-09-30] MEDS: VITAMIN B COMPLEX TAB PO SCH (09:11)
[2016-09-30] MEDS: FLUOXETINE HCL 20 MG/5 ML UDP PO SCH (09:11)
[2016-09-30] MEDS: PANTOprazole INJ 40 MG in SYRINGE 0 ML IV SCH ×2 (09:11→20:17)
[2016-09-30] MEDS: DOCUSATE SODIUM 100 MG/10 ML UDC PO SCH ×2 (09:11→20:18)
[2016-09-30] MEDS: LIDOCAINE HCL 2% VISCOUS SOLN 60 ML, DiphenhydrAMINE HCL SYRUP 150 MG, ALUMINUM/MAGNESI... MT SCH ×8 (09:12→22:33)
[2016-09-30] MEDS: CHOLECALCIFEROL 1000 INTER.UNIT TAB PO SCH ×2 (09:12)
[2016-09-30] MEDS: ASCORBIC ACID 500 MG TAB PO SCH (09:12)
[2016-09-30] MEDS: HEPARIN SOD 5000 UNIT/0.5 ML CARP SQ SCH ×2 (09:21→22:35)
[2016-09-30] MEDS: ACETAMINOPHEN IV 650 MG in EMPTY BAG 0 ML IV PRN ×2 (12:16→18:17)
--- NOTE | 2016-09-30 19:52 | PROGRESS NOTE ---
DATE: 09/30/2016 SUBJECTIVE: A 70-year-old white female, a week and half out from I\T\D of an infected total hip replacement and now about 3-1/2 weeks out from the index procedure. She is doing much better today. She denies any pain. Much more awake, alert, oriented and looks better every day. OBJECTIVE: VITAL SIGNS: Temperature is 37.4. Vital signs are stable. PHYSICAL EXAMINATION: Reveals a pleasant elderly female. She is sitting up in bed and looks pretty comfortable. Her mouth is quite dry and she has got an NG tube in place. Examination of the left hip reveals the incision to be pretty clean and dry. Her swelling is markedly down. There is no active drainage. Hip is located. She is neurologically intact. LABORATORY DATA: Hemoglobin 7.9, hematocrit 24.4 and white cell count 19.91. ASSESSMENT: A 70-year-old white female a week and a half out from I\T\D of an infected total hip replacement, doing better. She is still in a pretty guarded disposition but looks to be getting better daily. White cell count is improving. Hip looks better as well as her fluid status is improving. PLAN: 1. DVT prophylaxis including thigh-high TEDs, SCDs and subQ heparin. 2. PT/OT. It would be good to start therapy whenever medically stable. 3. Infection. She will continue on daptomycin. I would like to introduce rifampin once medically stable. She will need 6 weeks of IV antibiotics followed by oral antibiotics after that. 4. Medical management as per the medicine physicians. 5. Disposition: She will likely need a rehab stay. Orthopedic questions can be directed to me at [phone]. [facility]
[2016-09-30] MEDS: DEXTROSE 5% IV SCH (20:17)
[2016-09-30] MEDS: ACYCLOVIR SOD IV SCH (20:17)
--- NOTE | 2016-09-30 20:56 | DIAGNOSTIC IMAGING REPORT ---
KUB CLINICAL HISTORY: Generalized abdominal pain COMPARISON STUDY: 09/26/2016 FINDINGS: There are surgical clips in the right upper quadrant consistent with a prior cholecystectomy. There are surgical clips within the right mid abdomen and left lower quadrant. There is a nasogastric tube within the stomach. There is mild gaseous distention of both colon and small bowel loops. No transition zones are visualized. IMPRESSION: Mild gaseous distention of bowel, suggestive of an ileus. Electronically signed by: Connor Oleary M.D. 09/30/2016 8:54 PM Dictated Date/Time: 09/30/2016 8:54 PM
[2016-09-30] MEDS ORDERED: GABAPENTIN 250 MG/5 ML 470 ML BTL PO ONE (21:28)
[2016-09-30] MEDS ORDERED: VALPROIC ACID 250 MG/5 ML UDP NG ONE (21:28)
--- NOTE | 2016-09-30 21:38 | Progress Note ---
Medicine Progress Note Date & Time of Visit: September 30, 2016 at 19:00 . Subjective Lower abdominal discomfort. Last BM 2 days ago. Poor oral intake due to (1) oral discomfort and (2) abdominal discomfort. No N/V. No chest pain. No cough or SOB. Episode of anxiety this a.m. . Objective Last 8 Hrs Date Time Temp Pulse Resp B/P Pulse Ox O2 Delivery O2 Flow Rate FiO2 09/30/16 16:33 37.4 88 18 158/68 98 Room Air 09/30/16 16:00 Room Air Physical Exam: General- lying in bed; no acute distress Eyes- anicteric ENT- left NGT; labial ulcerations improved Neck- no JVD Lungs- clear to auscultation Heart- RRR, II/ sys murmur LSB Abdomen- moderately distended, + BS, soft, nontender Extremities- 1-2+ pretibial edema Neuro- alert, oriented . Laboratory Results: Last 24 Hours Test 09/30/16 05:10 White Blood Count 19.91 K/uL Red Blood Count 2.66 M/uL Hemoglobin 7.9 g/dL Hematocrit 24.4 % Mean Corpuscular Volume 91.7 fL Mean Corpuscular Hemoglobin 29.7 pg Mean Corpuscular Hemoglobin Concent 32.4 g/dl RDW Standard Deviation 52.4 fL RDW Coefficient of Variation 17.1 % Platelet Count 376 K/uL Mean Platelet Volume 9.9 fL Nucleated RBC Absolute Count (auto) 0.26 K/uL Nucleated Red Blood Cells % 1.3 % Sodium Level 139 mmol/L Potassium Level 3.8 mmol/L Chloride Level 102 mmol/L Carbon Dioxide Level 29 mmol/L Anion Gap 8.0 mmol/L Blood Urea Nitrogen 48 mg/dl Creatinine 2.30 mg/dl Est Creatinine Clear Calc Drug Dose 25.3 ml/min Estimated GFR () 23.8 Estimated GFR (Non- 20.5 BUN/Creatinine Ratio 21.0 Random Glucose 129 mg/dl Calcium Level 8.1 mg/dl Total Bilirubin 0.5 mg/dl Aspartate Amino Transf (AST/SGOT) 17 U/L Alanine Aminotransferase (ALT/SGPT) 21 U/L Alkaline Phosphatase 188 U/L Total Protein 6.2 gm/dl Albumin 2.0 gm/dl Globulin 4.2 gm/dl Albumin/Globulin Ratio 0.5 Assessment & Plan MRSA INFECTION LEFT HIP S/P irrigation. ID consulted. Rifampin discontinued due to elevated LFT's. Continue IV daptomycin. LEUKOCYTOSIS WBC as high as 32,620 on 09/25/16. Right femoral hemodialysis cath removed. Continue daptomycin for MRSA infection left hip. Urine culture 09/28 growing Shraddha. Start fluconazole. WBC today = 19,910. ACUTE KIDNEY INJURY ATN. Nephrology consulted. Continue hemodialysis. Permcath placed today. Creatinine today = 2.3. Ongoing management per Nephrology. ANEMIA Hgb as low as 7.3. Has received 2 units pRBC's. Hgb today = 7.9. Anemia probably multifactorial. Transfuse PRN to maintain adequate H/H. Follow. ENCEPHALOPATHY Secondary to infection. Improved. NUTRITION Has been unable to take oral nutrition due to stomatitis. Able to tolerate sips of water and Jello today. Advance diet as tolerated. Continue NG feedings. OROLABIAL LESIONS Unable to eat or drink much because of oral discomfort. ? viral. HSV serologies pending. HSV PCR and CMV culture from lesions pending. Empiric Rx with IV acyclovir. Improving. [facility] unable to crush due for NGT. Still unable to swallow pills. ? DEMENTIA History clarified with patient and daughter. Had some problems with memory when receiving chemo in past, but never had tarcy dementia. SLEEP APNEA Continue O2. ? resume CPAP. ABDOMINAL DISCOMFORT KUB shows mild ileus. Follow. VTE PROPHYLAXIS SQ heparin. SCD's. Ambulate as able. DISPOSITION To be determined. Anticipate need for skilled care or inpatient rehab. Internal Medicine follow-up with Dr. Seth. Daughter visiting this evening and given update. . Consultants: Orthopedics Nephrology Procedures: CT hip 1. 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 No evidence of fracture 3. No significant joint effusion although the examination is limited due to streak artifact 4. Partially visualized 6 cm collection within the subcutaneous tissues lateral to the left gluteal musculature. This is not possible on the basis of this study to determine whether this collection is infected or sterile. Liver ultrasound No significant abnormality identified within the right upper quadrant. Current Inpatient Medications: Current Inpatient Medications Medications (Trade) Dose Ordered Sig/Quan Route Start Time Stop Time Status Last Admin Dose Admin Cholecalciferol (Vitamin D Tab) 4,000 inter.unit QAM PO 09/18/16 09:00 10/18/16 08:59 09/30/16 09:12 4,000 INTER.UNIT Vitamin B Complex (Vitamin B Complex) 1 tab DAILY PO 09/18/16 09:00 10/18/16 08:59 09/30/16 09:11 1 TAB Acetaminophen (Tylenol Tab) 650 mg Q6H PRN PO 09/18/16 08:15 10/18/16 08:14 09/29/16 15:27 650 MG Daptomycin (Consult) 1 ea UD PRN N/A 09/19/16 08:30 10/19/16 08:29 Miconazole Nitrate 1 appln 1 appln PRN PRN EXT 09/20/16 15:15 10/20/16 15:14 09/25/16 20:20 1 APPLN Daptomycin 650 mg/ Sodium Chloride 63 ml @ 120 mls/hr Q48H IV 09/23/16 16:00 11/02/16 08:59 09/29/16 16:14 120 MLS/HR Pantoprazole Sodium/Syringe (Protonix Inj/ Syringe) 10 ml @ 5 mls/min DAILY@09,21 IV 09/23/16 21:00 10/23/16 20:59 09/30/16 20:17 5 MLS/MIN Heparin Sodium (Porcine) (Heparin 10 Unit/ ml 5 ml Flush) 5 ml PRN PRN FLUSH 09/24/16 15:15 10/24/16 15:14 09/27/16 21:43 5 ML Fluoxetine HCl (Prozac Soln) 20 mg QAM PO 09/26/16 09:00 10/26/16 08:59 09/30/16 09:11 20 MG Multivitamins Therapeutic (Cerovite Liquid) 15 ml QAM PO 09/26/16 09:00 10/26/16 08:59 09/30/16 09:11 15 ML Ascorbic Acid (Vitamin C Tab) 1,000 mg QAM PO 09/26/16 09:00 10/26/16 08:59 09/30/16 09:12 1,000 MG Cholecalciferol (Vitamin D Tab) 1,000 inter.unit QAM PO 09/26/16 09:00 10/26/16 08:59 09/30/16 09:12 1,000 INTER.UNIT Docusate Sodium 100 mg BID PO 09/25/16 21:00 10/25/16 20:59 09/30/16 20:18 100 MG Lidocaine HCl/ Diphenhydramine HCl/Al Hydroxide/ Mg Hydroxide/ Glycerin/Barcode (VISCOUS LIDOCAINE 2% Soln/ Benadryl Syrup/ Maalox Susp/ Glycerin Anhydrous Soln) BID MT 09/26/16 21:00 10/26/16 20:59 09/30/16 09:12 5 ML Enteral Nutritional Formula (Novasource Renal) 1,000 ml UD NG 09/28/16 14:30 10/28/16 14:29 09/30/16 09:10 1,000 ML Heparin Sodium (Porcine) (Heparin Sq 5000 Unit/0.5ml) 5,000 unit Q12 SQ 09/29/16 21:00 10/29/16 20:59 09/30/16 09:21 5,000 UNIT Acyclovir Sodium 1 ea 1 ea UD PRN N/A 09/28/16 20:00 10/28/16 19:59 Acyclovir Sodium 250 mg/Dextrose 105 ml @ 100 mls/hr DAILY@2000 IV 09/28/16 21:00 10/08/16 20:59 09/30/16 20:17 100 MLS/HR Acetaminophen 650 mg/Empty Bag 65 ml @ 260 mls/hr Q6H PRN IV 09/29/16 22:30 10/29/16 22:29 09/30/16 18:17 260 MLS/HR Lorazepam 0.5 mg/ Syringe 0.5 ml @ 0.5 mls/min Q8H PRN IV 09/30/16 21:30 10/30/16 21:29 UNV Fluconazole/ Sodium Chloride/ Prmx (Diflucan IV/ Premixed Nss) 50 ml @ 100 mls/hr UD IV 09/30/16 21:30 10/10/16 21:29 UNV
[2016-09-30] MEDS ORDERED: FLUCONAZOLE 200MG / NSS IV ONE (21:45)
[2016-09-30] MEDS ORDERED: FLUCONAZOLE CONSULT ACTIVE PRN (21:45)
[2016-10-01] VITALS (9 sets, daily range): BP systolic 132–188; BP diastolic 63–83; PULSE 85–96; TEMP 36.6–38; O2SAT 94–98
[2016-10-01 00:33] LABS: HSV TYPE 1 DNA Detected (Not Detected); HSV TYPE 1&2 DNA SOURCE Swab; HSV TYPE 2 DNA Not Detected (Not Detected)
[2016-10-01] MEDS: ACETAMINOPHEN IV 650 MG in EMPTY BAG 0 ML IV PRN ×3 (02:25→14:37)
[2016-10-01 05:53] LABS: BASO % 0.5 %; BASO ABS # 0.09 K/uL (0-0.2); EOS % 3.7 %; HEMATOCRIT 25.7 % (37-47); LYMPH % 11.1 %; LYMPH ABS # 2.18 K/uL (1.2-3.4); MEAN CELL VOLUME 92.1 fL (80-100); MEAN CORPUSCULAR HEMOGLOBIN 29.4 pg (25-34); MEAN CORPUSCULAR HGB CONC 31.9 g/dl (32-36); MEAN PLATELET VOLUME 9.7 fL (7.4-10.4); MONO % 9.6 %; NEUT % 71.1 %; PLATELET COUNT 405 K/uL (130-400); RED BLOOD COUNT 2.79 M/uL (4.2-5.4); WHITE BLOOD COUNT 19.65 K/uL (4.8-10.8)
[2016-10-01 06:28] LABS: BUN/CREATININE RATIO 23.5 (10-20); CALCIUM 8.2 mg/dl (8.5-10.1); CREATININE 1.6 mg/dl (0.60-1.20); MAGNESIUM 1.8 mg/dl (1.8-2.4); POTASSIUM 3.6 mmol/L (3.5-5.1)
[2016-10-01 06:31] LABS: ALB/GLOB RATIO 0.5 (0.9-2); PHOSPHORUS 3.1 mg/dl (2.5-4.9)
[2016-10-01 06:34] LABS: ANISOCYTOSIS PRESENT; COMPLETE YES; POLYCHROMASIA 1+
[2016-10-01] MEDS: PANTOprazole INJ 40 MG in SYRINGE 0 ML IV SCH ×2 (08:41→20:52)
[2016-10-01] MEDS: CHOLECALCIFEROL 1000 INTER.UNIT TAB PO SCH ×2 (08:42→08:44)
[2016-10-01] MEDS: VALPROIC ACID 250 MG/5 ML UDP NG SCH ×2 (08:42→21:21)
[2016-10-01] MEDS: LIDOCAINE HCL 2% VISCOUS SOLN 60 ML, DiphenhydrAMINE HCL SYRUP 150 MG, ALUMINUM/MAGNESI... MT SCH ×8 (08:42→17:43)
[2016-10-01] MEDS: GABAPENTIN 250 MG/5 ML 470 ML BTL NG SCH ×2 (08:43→22:11)
[2016-10-01] MEDS: FLUOXETINE HCL 20 MG/5 ML UDP PO SCH (08:43)
[2016-10-01] MEDS: ASCORBIC ACID 500 MG TAB PO SCH (08:43)
[2016-10-01] MEDS: VITAMIN B COMPLEX TAB PO SCH (08:43)
[2016-10-01] MEDS: MULTIVITAMINS W/MINERALS 15ML UDP PO SCH (08:44)
[2016-10-01] MEDS: DOCUSATE SODIUM 100 MG/10 ML UDC PO SCH ×2 (08:44→21:21)
[2016-10-01] MEDS: HEPARIN SOD 5000 UNIT/0.5 ML CARP SQ SCH ×2 (08:47→21:20)
[2016-10-01] MEDS ORDERED: SOD PHOSPHATE/SOD BIPHOSPHATE ENEMA 132 ML BTL PR ONE (09:00)
--- NOTE | 2016-10-01 09:26 | PROGRESS NOTE ---
DATE: 10/01/2016 DATE: 10/01/2016. SUBJECTIVE: A 70-year-old white female now about 12 days out from I\T\D of an infected total hip replacement, about 4 weeks out from the initial surgery. She is doing better each day. She denies any significant pain. She did recently have a bowel movement and soiled everything, they changed her bandage. PHYSICAL EXAMINATION: GENERAL: Reveals a pleasant elderly female. She is sitting up in bed and is much more awake, alert and oriented than she has been in several days. VITAL SIGNS: Her temperature is 36.8. Vital signs stable. EXTREMITIES: Examination of left hip reveals the dressing to be in place. I did open this up and there has been no further drainage on it. Hip is located. She is neurologically intact. LABORATORY DATA: White cell count 19.65. Hemoglobin 8.2. Hematocrit 25.7. ASSESSMENT: A 70-year-old female, 12 days out from I\T\D and polyethylene and femoral head exchange for an acutely infected total hip replacement done about 4 weeks ago. She is making gradual improvements. Her wound is looking better as she is becoming less edematous and third spacing less fluid. Pain seems to be controlled. Hip is located. She is neurologically intact. PLAN: From the orthopedic standpoint, she needs to continue on the daptomycin for probably a total of 6 weeks and then oral antibiotics after that. We would like to reintroduce rifampin when medically possible. We will continue routine wound care. We will leave these stitches in probably for another week. We would like to immobilize her whenever medically stable. She can weightbear as tolerated and obey hip precautions. Any questions can be directed to me at at [phone].
[2016-10-01] MEDS ORDERED: MAGIC SWIZZLE PO SCH (16:15)
[2016-10-01] MEDS: DAPTOmycin IV 650 MG in SODIUM CHLORIDE 0.9% 50ML 50 ML IV SCH (17:42)
[2016-10-01] MEDS: ACYCLOVIR SOD IV SCH (19:39)
[2016-10-01] MEDS: DEXTROSE 5% IV SCH (19:39)
--- NOTE | 2016-10-01 19:48 | Progress Note ---
Medicine Progress Note Date & Time of Visit: October 01, 2016 at 11:20 . Subjective No fever. Tired. Oral lesions improved. No chest pain. No cough or SOB. No nausea or vomiting. Passed some loose stools this morning. Less abdominal discomfort. Still has [place] cath. . Objective Last 8 Hrs Date Time Temp Pulse Resp B/P Pulse Ox O2 Delivery O2 Flow Rate FiO2 10/01/16 19:28 37.2 89 16 166/83 95 Room Air 10/01/16 16:00 Room Air 10/01/16 15:38 36.6 86 20 145/77 98 Room Air 10/01/16 12:00 Room Air Physical Exam: General- lying in bed; no acute distress Eyes- anicteric ENT- left NGT; labial ulcerations improved; tongue ulcerated Neck- no JVD Lungs- clear to auscultation Heart- RRR, II/ sys murmur LSB Abdomen- less distended, + BS, soft, nontender Extremities- 1-2+ pretibial edema; left hip bandaged Neuro- alert, oriented . Laboratory Results: Last 24 Hours Test 10/01/16 05:43 White Blood Count 19.65 K/uL Red Blood Count 2.79 M/uL Hemoglobin 8.2 g/dL Hematocrit 25.7 % Mean Corpuscular Volume 92.1 fL Mean Corpuscular Hemoglobin 29.4 pg Mean Corpuscular Hemoglobin Concent 31.9 g/dl Platelet Count 405 K/uL Mean Platelet Volume 9.7 fL Neutrophils (%) (Auto) 71.1 % Lymphocytes (%) (Auto) 11.1 % Monocytes (%) (Auto) 9.6 % Eosinophils (%) (Auto) 3.7 % Basophils (%) (Auto) 0.5 % Neutrophils # (Auto) 13.98 K/uL Lymphocytes # (Auto) 2.18 K/uL Monocytes # (Auto) 1.88 K/uL Eosinophils # (Auto) 0.73 K/uL Basophils # (Auto) 0.09 K/uL RDW Standard Deviation 52.2 fL RDW Coefficient of Variation 17.6 % Immature Granulocyte % (Auto) 4.0 % Immature Granulocyte # (Auto) 0.79 K/uL Nucleated RBC Absolute Count (auto) 0.25 K/uL Nucleated Red Blood Cells % 1.3 % Polychromasia 1+ Anisocytosis PRESENT Sodium Level 139 mmol/L Potassium Level 3.6 mmol/L Chloride Level 101 mmol/L Carbon Dioxide Level 30 mmol/L Anion Gap 8.0 mmol/L Blood Urea Nitrogen 38 mg/dl Creatinine 1.60 mg/dl Est Creatinine Clear Calc Drug Dose 35.9 ml/min Estimated GFR () 36.9 Estimated GFR (Non- 31.9 BUN/Creatinine Ratio 23.5 Random Glucose 131 mg/dl Calcium Level 8.2 mg/dl Phosphorus Level 3.1 mg/dl Magnesium Level 1.8 mg/dl Total Bilirubin 0.4 mg/dl Aspartate Amino Transf (AST/SGOT) 17 U/L Alanine Aminotransferase (ALT/SGPT) 19 U/L Alkaline Phosphatase 171 U/L Total Protein 6.3 gm/dl Albumin 2.1 gm/dl Globulin 4.2 gm/dl Albumin/Globulin Ratio 0.5 Date/Time Source Procedure Growth Status 10/01/16 08:05 Stool C.difficile Toxin B Gene (PCR) - Final No C. difficile toxin B gene detected Complete Assessment & Plan MRSA INFECTION LEFT HIP S/P irrigation. ID consulted. Rifampin discontinued due to elevated LFT's. ID and GI recommend not restarting rifampin. Continue IV daptomycin. ACUTE KIDNEY INJURY ATN. Nephrology consulted. Continue hemodialysis. Permcath placed 09/29. Urine output improved. Creatinine today = 1.6. Ongoing management per Nephrology. ANEMIA Hgb as low as 7.3. Has received 2 units pRBC's. Hgb today = 8.2. Anemia probably multifactorial. Transfuse PRN to maintain adequate H/H. Follow. ENCEPHALOPATHY Secondary to infection. Improved. NUTRITION Has been unable to take oral nutrition due to stomatitis. Able to tolerate sips of water and Jello today. Advance diet as tolerated. Continue NG feedings. OROLABIAL LESIONS Unable to eat or drink much because of oral discomfort. ? viral. HSV serologies pending. HSV PCR and CMV culture from lesions pending. Empiric Rx with IV acyclovir. Improving. BIPOLAR DISORDER Depakote ER has been on hold- unable to crush due for NGT. Still unable to swallow pills. Stared on valproic acid syrup. ? DEMENTIA History clarified with patient and daughter. Had some problems with memory when receiving chemo in past, but never had tracy dementia. SLEEP APNEA Continue O2. ? resume CPAP. ABDOMINAL DISCOMFORT KUB shows mild ileus. Moved bowels this morning. Follow. UTI Urine culture grew Shraddha. Receiving fluconazole. VTE PROPHYLAXIS SQ heparin. SCD's. Ambulate as able. DISPOSITION To be determined. Anticipate need for skilled care or inpatient rehab. Internal Medicine follow-up with Dr. Seht. . Consultants: Orthopedics Nephrology Procedures: CT hip 1. 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 No evidence of fracture 3. No significant joint effusion although the examination is limited due to streak artifact 4. Partially visualized 6 cm collection within the subcutaneous tissues lateral to the left gluteal musculature. This is not possible on the basis of this study to determine whether this collection is infected or sterile. Liver ultrasound No significant abnormality identified within the right upper quadrant. Current Inpatient Medications: Current Inpatient Medications Medications (Trade) Dose Ordered Sig/Quan Route Start Time Stop Time Status Last Admin Dose Admin Cholecalciferol (Vitamin D Tab) 4,000 inter.unit QAM PO 09/18/16 09:00 10/18/16 08:59 10/01/16 08:42 4,000 INTER.UNIT Vitamin B Complex (Vitamin B Complex) 1 tab DAILY PO 09/18/16 09:00 10/18/16 08:59 10/01/16 08:43 1 TAB Acetaminophen (Tylenol Tab) 650 mg Q6H PRN PO 09/18/16 08:15 10/18/16 08:14 09/29/16 15:27 650 MG Daptomycin (Consult) 1 ea UD PRN N/A 09/19/16 08:30 10/19/16 08:29 Miconazole Nitrate 1 appln 1 appln PRN PRN EXT 09/20/16 15:15 10/20/16 15:14 09/25/16 20:20 1 APPLN Daptomycin 650 mg/ Sodium Chloride 63 ml @ 120 mls/hr Q48H IV 09/23/16 16:00 11/02/16 08:59 10/01/16 17:42 120 MLS/HR Pantoprazole Sodium/Syringe (Protonix Inj/ Syringe) 10 ml @ 5 mls/min DAILY@09,21 IV 09/23/16 21:00 10/23/16 20:59 10/01/16 08:41 5 MLS/MIN Heparin Sodium (Porcine) (Heparin 10 Unit/ ml 5 ml Flush) 5 ml PRN PRN FLUSH 09/24/16 15:15 10/24/16 15:14 09/27/16 21:43 5 ML Fluoxetine HCl (Prozac Soln) 20 mg QAM PO 09/26/16 09:00 10/26/16 08:59 10/01/16 08:43 20 MG Multivitamins Therapeutic (Cerovite Liquid) 15 ml QAM PO 09/26/16 09:00 10/26/16 08:59 10/01/16 08:44 15 ML Ascorbic Acid (Vitamin C Tab) 1,000 mg QAM PO 09/26/16 09:00 10/26/16 08:59 10/01/16 08:43 1,000 MG Cholecalciferol (Vitamin D Tab) 1,000 inter.unit QAM PO 09/26/16 09:00 10/26/16 08:59 10/01/16 08:44 1,000 INTER.UNIT Docusate Sodium (coLACE SYRUP) 100 mg BID PO 09/25/16 21:00 10/25/16 20:59 10/01/16 08:44 100 MG Enteral Nutritional Formula (Novasource Renal) 1,000 ml UD NG 09/28/16 14:30 10/28/16 14:29 09/30/16 09:10 1,000 ML Heparin Sodium (Porcine) (Heparin Sq 5000 Unit/0.5ml) 5,000 unit Q12 SQ 09/29/16 21:00 10/29/16 20:59 10/01/16 08:47 5,000 UNIT Acyclovir Sodium 1 ea 1 ea UD PRN N/A 09/28/16 20:00 10/28/16 19:59 Acyclovir Sodium 250 mg/Dextrose 105 ml @ 100 mls/hr DAILY@2000 IV 09/28/16 21:00 10/08/16 20:59 10/01/16 19:39 100 MLS/HR Acetaminophen 650 mg/Empty Bag 65 ml @ 260 mls/hr Q6H PRN IV 09/29/16 22:30 10/29/16 22:29 10/01/16 14:37 260 MLS/HR Lorazepam 0.5 mg/ Syringe 0.5 ml @ 0.5 mls/min Q8H PRN IV 09/30/16 21:30 10/30/16 21:29 Fluconazole/ Sodium Chloride/ Prmx (Diflucan IV/ Premixed Nss) 50 ml @ 100 mls/hr Q24H IV 10/01/16 22:00 10/09/16 22:29 Fluconazole (Consult) 1 ea UD PRN N/A 09/30/16 21:45 10/30/16 21:44 Valproic Acid (Depakene Syrup) 250 mg BID NG 10/01/16 09:00 10/31/16 08:59 10/01/16 08:42 250 MG Gabapentin (Neurontin) 100 mg BID NG 10/01/16 09:00 10/31/16 08:59 10/01/16 08:43 100 MG Sodium Biphosphate/ Sodium Phosphate 132 ml DAILY PRN [place] 10/01/16 07:00 10/31/16 06:59 Lidocaine HCl/ Diphenhydramine HCl/Al Hydroxide/ Mg Hydroxide/ Glycerin/Barcode (VISCOUS LIDOCAINE 2% Soln/ Benadryl Syrup/ Maalox Susp/ Glycerin Anhydrous Soln) AC MT 10/01/16 16:15 10/31/16 16:14 10/01/16 17:43 5 ML
[2016-10-01] MEDS: SOD PHOSPHATE/SOD BIPHOSPHATE ENEMA 132 ML BTL PR PRN (21:25)
[2016-10-01] MEDS: FLUCONAZOLE / NSS 100 MG in PREMIXED NSS 50 ML IV SCH (22:11)
[2016-10-01] MEDS: ACETAMINOPHEN 325 MG TAB PO PRN (22:11)
[2016-10-02] VITALS (10 sets, daily range): BP systolic 145–156; BP diastolic 68–80; PULSE 80–84; TEMP 36.8–37.2; O2SAT 95–99
[2016-10-02] MEDS: ACETAMINOPHEN IV 650 MG in EMPTY BAG 0 ML IV PRN ×2 (05:50→16:34)
[2016-10-02 06:20] LABS: HEMATOCRIT 24.7 % (37-47); MEAN CELL VOLUME 92.5 fL (80-100); MEAN CORPUSCULAR HGB CONC 32.4 g/dl (32-36); MEAN PLATELET VOLUME 10.1 fL (7.4-10.4); PLATELET COUNT 417 K/uL (130-400); RED BLOOD COUNT 2.67 M/uL (4.2-5.4); WHITE BLOOD COUNT 16.02 K/uL (4.8-10.8)
[2016-10-02 06:45] LABS: BUN/CREATININE RATIO 34.7 (10-20); CALCIUM 8.6 mg/dl (8.5-10.1); CREATININE 1.3 mg/dl (0.60-1.20); POTASSIUM 3.1 mmol/L (3.5-5.1)
[2016-10-02] MEDS: LIDOCAINE HCL 2% VISCOUS SOLN 60 ML, DiphenhydrAMINE HCL SYRUP 150 MG, ALUMINUM/MAGNESI... MT SCH ×12 (08:21→17:13)
[2016-10-02] MEDS: MULTIVITAMINS W/MINERALS 15ML UDP PO SCH (08:23)
[2016-10-02] MEDS: DOCUSATE SODIUM 100 MG/10 ML UDC PO SCH ×2 (08:24→22:07)
[2016-10-02] MEDS: VALPROIC ACID 250 MG/5 ML UDP NG SCH ×2 (08:25→20:48)
[2016-10-02] MEDS: FLUOXETINE HCL 20 MG/5 ML UDP PO SCH (08:25)
[2016-10-02] MEDS: POTASSIUM CHLORIDE 20 MEQ/15 ML UDC NG SCH (08:25)
[2016-10-02] MEDS: PANTOprazole INJ 40 MG in SYRINGE 0 ML IV SCH ×2 (08:26→20:48)
[2016-10-02] MEDS: ASCORBIC ACID 500 MG TAB PO SCH (08:27)
[2016-10-02] MEDS: CHOLECALCIFEROL 1000 INTER.UNIT TAB PO SCH ×2 (08:29→08:31)
[2016-10-02] MEDS: VITAMIN B COMPLEX TAB PO SCH (08:31)
[2016-10-02] MEDS: HEPARIN SOD 5000 UNIT/0.5 ML CARP SQ SCH ×2 (08:38→20:53)
[2016-10-02] MEDS: GABAPENTIN 250 MG/5 ML 470 ML BTL NG SCH ×2 (08:39→22:06)
--- NOTE | 2016-10-02 08:59 | PROGRESS NOTE ---
DATE: 10/02/2016 SUBJECTIVE: A 70-year-old white female now 13 days out from I\T\D of an infected total hip wound. She is doing better. Denies any significant pain today. Denies any hip pain. She states that she has maybe just a little bit bit of a headache. No chest pain or shortness of breath. OBJECTIVE: VITAL SIGNS: Temperature is 37.2. Vital signs stable. PHYSICAL EXAMINATION: EXTREMITIES: Examination of her left hip reveals the leg lengths to be equal. She can dorsiflex and plantarflex her foot appropriately. She does have a very small amount of serous type drainage on her dressing. She is neurologically intact. LABORATORY DATA: White cell count is improved at 16.02. Hemoglobin 8.0. Hematocrit 24.7. ASSESSMENT: A 70-year-old white female now 13 days out from I\T\D and infected total hip wound care. We did a polyethylene exchange and femoral head exchange as well. She is making clinical progress daily. Wound is looking better as well. Still small amount of serous drainage. PLAN: 1. DVT prophylaxis including thigh-high TEDs, SCDs, and on subQ heparin. 2. PT/OT. She was out of bed yesterday and did some walking and will continue mobilization. 3. IV antibiotics for 6 weeks total and then followed by p.o. antibiotics. Once again, we would like to reintroduce rifampin when medically able. 4. Medical management as per the medicine service. 5. Routine wound care. 6. Disposition is pending the above recovery. [facility]
[2016-10-02] MEDS: NOVASOURCE RENAL 1000ML BAG NG SCH ×2 (12:43→17:13)
--- NOTE | 2016-10-02 14:57 | NEPHROLOGY PROGRESS NOTE ---
DATE: 10/02/2016 SUBJECTIVE: Overnight, no new issues. She is starting to make good amount of urine. She had 1350 mL of urine, creatinine is coming down on its own without dialysis and is down even further at 1.3 today. Mucous membrane appears kind of dry with multiple mouth sores and ulcers. PHYSICAL EXAMINATION: VITAL SIGNS: Blood pressure 146/76, 98% on room air, temperature 36.9, pulse rate 82 per minute. HEENT: Mucous membrane appears dry with multiple ulcers. LUNGS: Bilateral decreased breath sounds and poor quality inspiratory effort. HEART: Regular, soft systolic murmur heard. ABDOMEN: Soft, nontender. EXTREMITIES: Shows trace edema. LABORATORY TESTS: Hemoglobin 8.0, WBC count 16,000, platelet count 417. Creatinine is getting better every day, it is down to 1.3, it was 1.6 yesterday and 2.3 the day before; potassium today is 3.1, sodium 141. ASSESSMENT AND PLAN: Acute kidney injury. This is secondary to oliguric acute tubular necrosis. She has a tunneled dialysis catheter. She had her dialysis on Monday, but at this time, it seems her kidney function is recovering with increasing urine output and a dropping creatinine. Even without dialysis creatinine down to 1.3. I do not think she needs dialysis today and will have to reassess tomorrow for her need of dialysis. I believe she probably will not need dialysis. JT
[2016-10-02] MEDS ORDERED: NOVASOURCE RENAL 1000ML BAG NG SCH (16:45)
[2016-10-02] MEDS: BOOST PLUS VANILLA PO SCH ×2 (17:12)
--- NOTE | 2016-10-02 17:43 | Progress Note ---
Medicine Progress Note Date & Time of Visit: October 02, 2016 at 13:50 . Subjective No fever or chills. Oral lesions less painful, oral intake improving. No cough or SOB. No chest pain. No nausea or vomiting. Bowel movement last night after enema. . Objective Last 8 Hrs Date Time Temp Pulse Resp B/P Pulse Ox O2 Delivery O2 Flow Rate FiO2 10/02/16 16:00 97 Room Air 3.0 10/02/16 15:57 36.9 83 20 149/76 97 Room Air 10/02/16 12:00 97 Room Air 10/02/16 11:01 36.9 82 18 146/76 98 Room Air Physical Exam: General- lying in bed; no acute distress Eyes- anicteric ENT- left NGT; labial ulcerations improved; tongue ulcerations healing Neck- no JVD Lungs- clear to auscultation Heart- RRR, II/ sys murmur LSB Abdomen- + BS, soft, nontender Extremities- 1-2+ pretibial edema; left hip bandaged Neuro- alert, oriented Skin- desquamation hands . Laboratory Results: Last 24 Hours Test 10/02/16 05:12 White Blood Count 16.02 K/uL Red Blood Count 2.67 M/uL Hemoglobin 8.0 g/dL Hematocrit 24.7 % Mean Corpuscular Volume 92.5 fL Mean Corpuscular Hemoglobin 30.0 pg Mean Corpuscular Hemoglobin Concent 32.4 g/dl RDW Standard Deviation 53.4 fL RDW Coefficient of Variation 17.9 % Platelet Count 417 K/uL Mean Platelet Volume 10.1 fL Nucleated RBC Absolute Count (auto) 0.08 K/uL Nucleated Red Blood Cells % 0.5 % Sodium Level 141 mmol/L Potassium Level 3.1 mmol/L Chloride Level 102 mmol/L Carbon Dioxide Level 29 mmol/L Anion Gap 10.0 mmol/L Blood Urea Nitrogen 45 mg/dl Creatinine 1.30 mg/dl Est Creatinine Clear Calc Drug Dose 44.6 ml/min Estimated GFR () 47.5 Estimated GFR (Non- 41.0 BUN/Creatinine Ratio 34.7 Random Glucose 107 mg/dl Calcium Level 8.6 mg/dl Assessment & Plan MRSA INFECTION LEFT HIP Initially received IV vancomycin x ~ 4 doses. Antibiotic therapy changed to daptomycin 09/19 because of ATN. S/P irrigation 09/19. ID consulted. Rifampin discontinued due to elevated LFT's. ID and GI recommend not restarting rifampin. Continue IV daptomycin. Extended course anticipated. Today is day # 15 of MRSA coverage. ACUTE KIDNEY INJURY ATN. Nephrology consulted. Hemodialysis performed, initially via right femoral catheter. Permcath placed 09/29. Urine output improved. Creatinine today = 1.3. Ongoing management per Nephrology. HYPOKALEMIA Serum K today = 3.1. DC renal diet. Replace. Follow. ANEMIA Hgb as low as 7.3. Has received 2 units pRBC's. Hgb today = 8.0. Anemia probably multifactorial. Transfuse PRN to maintain adequate H/H. Follow. ENCEPHALOPATHY Secondary to infection. Improved. NUTRITION Has been unable to take oral nutrition due to stomatitis. Oral lesions are healing and oral intake better. Advance diet as tolerated. Continue NG feedings. OROLABIAL LESIONS Unable to eat or drink much because of oral discomfort. 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 Improving. Continue Rx with IV acyclovir. BIPOLAR DISORDER Depakote ER has been on hold- unable to crush due for NGT. Still unable to swallow pills. Stared on valproic acid syrup. ? DEMENTIA History clarified with patient and daughter. Had some problems with memory when receiving chemo in past, but never had tracy dementia. SLEEP APNEA Continue O2. Resume CPAP once NGT remvoed. UTI Urine culture grew Shraddha. Receiving fluconazole. VTE PROPHYLAXIS SQ heparin. SCD's. Ambulate as able. DISPOSITION To be determined. Anticipate need for skilled care or inpatient rehab. Patient and family prefer [facility] or [facility]. Internal Medicine follow-up with Dr. Seth. . Consultants: Orthopedics Nephrology Procedures: CT hip 1. 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 No evidence of fracture 3. No significant joint effusion although the examination is limited due to streak artifact 4. Partially visualized 6 cm collection within the subcutaneous tissues lateral to the left gluteal musculature. This is not possible on the basis of this study to determine whether this collection is infected or sterile. Liver ultrasound No significant abnormality identified within the right upper quadrant. Current Inpatient Medications: Current Inpatient Medications Medications (Trade) Dose Ordered Sig/Quan Route Start Time Stop Time Status Last Admin Dose Admin Cholecalciferol (Vitamin D Tab) 4,000 inter.unit QAM PO 09/18/16 09:00 10/18/16 08:59 10/02/16 08:31 4,000 INTER.UNIT Vitamin B Complex (Vitamin B Complex) 1 tab DAILY PO 09/18/16 09:00 10/18/16 08:59 10/02/16 08:31 1 TAB Acetaminophen (Tylenol Tab) 650 mg Q6H PRN PO 09/18/16 08:15 10/18/16 08:14 10/01/16 22:11 650 MG Daptomycin (Consult) 1 ea UD PRN N/A 09/19/16 08:30 10/19/16 08:29 Miconazole Nitrate 1 appln 1 appln PRN PRN EXT 09/20/16 15:15 10/20/16 15:14 09/25/16 20:20 1 APPLN Daptomycin 650 mg/ Sodium Chloride 63 ml @ 120 mls/hr Q48H IV 09/23/16 16:00 11/02/16 08:59 10/01/16 17:42 120 MLS/HR Pantoprazole Sodium/Syringe (Protonix Inj/ Syringe) 10 ml @ 5 mls/min DAILY@09,21 IV 09/23/16 21:00 10/23/16 20:59 10/02/16 08:26 5 MLS/MIN Heparin Sodium (Porcine) (Heparin 10 Unit/ ml 5 ml Flush) 5 ml PRN PRN FLUSH 09/24/16 15:15 10/24/16 15:14 10/01/16 21:58 5 ML Fluoxetine HCl (Prozac Soln) 20 mg QAM PO 09/26/16 09:00 10/26/16 08:59 10/02/16 08:25 20 MG Multivitamins Therapeutic (Cerovite Liquid) 15 ml QAM PO 09/26/16 09:00 10/26/16 08:59 10/02/16 08:23 15 ML Ascorbic Acid (Vitamin C Tab) 1,000 mg QAM PO 09/26/16 09:00 10/26/16 08:59 10/02/16 08:27 1,000 MG Cholecalciferol (Vitamin D Tab) 1,000 inter.unit QAM PO 09/26/16 09:00 10/26/16 08:59 10/02/16 08:29 1,000 INTER.UNIT Docusate Sodium (coLACE SYRUP) 100 mg BID PO 09/25/16 21:00 10/25/16 20:59 10/02/16 08:24 100 MG Heparin Sodium (Porcine) (Heparin Sq 5000 Unit/0.5ml) 5,000 unit Q12 SQ 09/29/16 21:00 10/29/16 20:59 10/02/16 08:38 5,000 UNIT Acyclovir Sodium 1 ea 1 ea UD PRN N/A 09/28/16 20:00 10/28/16 19:59 Acyclovir Sodium 250 mg/Dextrose 105 ml @ 100 mls/hr DAILY@2000 IV 09/28/16 21:00 10/08/16 20:59 10/01/16 19:39 100 MLS/HR Acetaminophen 650 mg/Empty Bag 65 ml @ 260 mls/hr Q6H PRN IV 09/29/16 22:30 10/29/16 22:29 10/02/16 16:34 260 MLS/HR Lorazepam 0.5 mg/ Syringe 0.5 ml @ 0.5 mls/min Q8H PRN IV 09/30/16 21:30 10/30/16 21:29 Fluconazole/ Sodium Chloride/ Prmx (Diflucan IV/ Premixed Nss) 50 ml @ 100 mls/hr Q24H IV 10/01/16 22:00 10/09/16 22:29 10/01/16 22:11 100 MLS/HR Fluconazole (Consult) 1 ea UD PRN N/A 09/30/16 21:45 10/30/16 21:44 Valproic Acid (Depakene Syrup) 250 mg BID NG 10/01/16 09:00 10/31/16 08:59 10/02/16 08:25 250 MG Gabapentin (Neurontin) 100 mg BID NG 10/01/16 09:00 10/31/16 08:59 10/02/16 08:39 100 MG Sodium Biphosphate/ Sodium Phosphate 132 ml DAILY PRN MD 10/01/16 07:00 10/31/16 06:59 10/01/16 21:25 132 ML Lidocaine HCl/ Diphenhydramine HCl/Al Hydroxide/ Mg Hydroxide/ Glycerin/Barcode (VISCOUS LIDOCAINE 2% Soln/ Benadryl Syrup/ Maalox Susp/ Glycerin Anhydrous Soln) AC MT 10/01/16 16:15 10/31/16 16:14 10/02/16 17:13 5 ML Potassium Chloride (Babs Ciel Elix) 40 meq QAM NG 10/02/16 09:00 11/01/16 08:59 10/02/16 08:25 40 MEQ Enteral Nutritional Formula (Boost Plus Vanilla) 1 can BIDM PO 10/02/16 16:45 11/01/16 16:44 10/02/16 17:12 1 CAN Enteral Nutritional Formula (Novasource Renal) 1,000 ml DAILY@1645 NG 10/02/16 16:45 11/01/16 16:44 10/02/16 17:13 1,000 ML Miscellaneous (Stop Order) 1 ea DAILY@0445 N/A 10/03/16 04:45 11/02/16 04:44
[2016-10-02] MEDS ORDERED: POTASSIUM CHLORIDE 20 MEQ/15 ML UDC PO ONE (20:00)
[2016-10-02] MEDS: ACYCLOVIR SOD IV SCH (20:20)
[2016-10-02] MEDS: DEXTROSE 5% IV SCH (20:20)
[2016-10-02] MEDS: FLUCONAZOLE / NSS 100 MG in PREMIXED NSS 50 ML IV SCH (22:07)
[2016-10-03] MEDS: [UNRECOGNIZED DRUG - REMARK] SCH (05:04)
[2016-10-03 05:24] LABS: HEMATOCRIT 23.7 % (37-47); MEAN CELL VOLUME 92.9 fL (80-100); MEAN CORPUSCULAR HEMOGLOBIN 30.6 pg (25-34); MEAN CORPUSCULAR HGB CONC 32.9 g/dl (32-36); MEAN PLATELET VOLUME 9.4 fL (7.4-10.4); PLATELET COUNT 340 K/uL (130-400); RED BLOOD COUNT 2.55 M/uL (4.2-5.4); WHITE BLOOD COUNT 11.21 K/uL (4.8-10.8)
[2016-10-03 05:46] LABS: ANISOCYTOSIS PRESENT; BASO % 0.7 %; BASO ABS # 0.08 K/uL (0-0.2); COMPLETE YES; EOS % 6.2 %; IG% 1.3 %; LYMPH % 17.6 %; LYMPH ABS # 1.97 K/uL (1.2-3.4); MONO % 9.3 %; NEUT % 64.9 %; POLYCHROMASIA 1+
[2016-10-03 05:48] LABS: BUN/CREATININE RATIO 39.5 (10-20); CALCIUM 8.6 mg/dl (8.5-10.1); CREATININE 1.1 mg/dl (0.60-1.20); MAGNESIUM 1.5 mg/dl (1.8-2.4); POTASSIUM 3.5 mmol/L (3.5-5.1)
[2016-10-03 05:51] LABS: ALB/GLOB RATIO 0.5 (0.9-2); C-REACTIVE PROTEIN 1.5 mg/dl (0-0.29); PHOSPHORUS 3.6 mg/dl (2.5-4.9)
[2016-10-03] MEDS ORDERED: MAGNESIUM SULFATE IV ONE (07:30)
[2016-10-03] MEDS ORDERED: D5W 1 GM IV ONE (07:30)
[2016-10-03] MEDS ORDERED: SODIUM CHLORIDE 0.9% IV ONE (07:30)
[2016-10-03 07:49] VITALS: BP 156/71; PULSE 84; TEMP 37.4; O2SAT 96
--- NOTE | 2016-10-03 08:18 | PROGRESS NOTE ---
DATE: 10/03/2016 SUBJECTIVE: A 70-year-old white female postop 2 weeks out from I\T\D of an infected total hip wound. She is making gradual improvements. Still just a little bit of drainage on her dressing. Denies any pain. OBJECTIVE: VITAL SIGNS: Temperature 37.0. Vital signs stable. PHYSICAL EXAMINATION: GENERAL: Reveals a pleasant elderly female. I had to wake her this morning. EXTREMITIES: Examination of left hip and leg reveals the leg to be well aligned. She is neurologically intact. Still just a little bit of serosanguineous drainage in the middle aspect of her dressing. Swelling has improved. LABORATORY DATA: White cell count 11.21. Hemoglobin 7.8. Hematocrit 23.7. Creatinine is improved at 1.10. ASSESSMENT: A 70-year-old white female 2 weeks out from I\T\D of an acutely infected total hip wound. Making gradual improvements. Still a little bit of drainage in her dressing, which hopefully will resolve over the next several days. PLAN: Continue IV antibiotics for a total of 6 weeks. I would like to introduce rifampin when possible. Continue PT and OT. She can weightbear as tolerated. Total hip protocol. We are going to probably leave the stitches in for another week. She will likely need a PICC line for an additional at least 4 weeks with IV antibiotics. Any orthopedic questions can be directed to me at [phone].
[2016-10-03] MEDS: ASCORBIC ACID 500 MG TAB PO SCH (08:32)
[2016-10-03] MEDS: DOCUSATE SODIUM 100 MG/10 ML UDC PO SCH ×2 (08:33→20:48)
[2016-10-03] MEDS: CHOLECALCIFEROL 1000 INTER.UNIT TAB PO SCH ×2 (08:34→09:21)
[2016-10-03] MEDS: MULTIVITAMINS W/MINERALS 15ML UDP PO SCH (08:35)
[2016-10-03] MEDS: VALPROIC ACID 250 MG/5 ML UDP NG SCH ×2 (08:35→20:47)
[2016-10-03] MEDS: VITAMIN B COMPLEX TAB PO SCH (08:36)
[2016-10-03] MEDS: PANTOprazole INJ 40 MG in SYRINGE 0 ML IV SCH ×2 (08:38→20:48)
[2016-10-03] MEDS: FLUOXETINE HCL 20 MG/5 ML UDP PO SCH (08:38)
[2016-10-03] MEDS: HEPARIN SOD 5000 UNIT/0.5 ML CARP SQ SCH ×2 (09:09→20:49)
[2016-10-03] MEDS: GABAPENTIN 250 MG/5 ML 470 ML BTL NG SCH ×2 (09:12→20:47)
[2016-10-03] MEDS: BOOST PLUS VANILLA PO SCH ×4 (09:12→17:58)
[2016-10-03] MEDS: POTASSIUM CHLORIDE 20 MEQ/15 ML UDC NG SCH (09:22)
[2016-10-03] MEDS: LIDOCAINE HCL 2% VISCOUS SOLN 60 ML, DiphenhydrAMINE HCL SYRUP 150 MG, ALUMINUM/MAGNESI... MT SCH ×12 (09:22→17:00)
[2016-10-03] MEDS: DAPTOmycin IV 650 MG in SODIUM CHLORIDE 0.9% 50ML 50 ML IV SCH (09:53)
[2016-10-03] MEDS: DEXTROSE 5% IV SCH ×2 (09:53→10:51)
[2016-10-03] MEDS: ACYCLOVIR SOD IV SCH ×2 (09:53→10:51)
[2016-10-03] MEDS: FLUCONAZOLE 200MG / NSS IV SCH (13:10)
[2016-10-03 15:27] VITALS: BP 160/75; PULSE 83; TEMP 36.8; O2SAT 97
[2016-10-03] MEDS ORDERED: NURSING VERBAL MED ORDER ONE (15:45)
[2016-10-03] MEDS: ACETAMINOPHEN 325 MG TAB PO PRN (16:10)
--- NOTE | 2016-10-03 16:11 | Infectious Disease Progress Nt ---
Progress Note Date of Service October 03, 2016. Subjective Pt evaluation today including: conversation w/ patient, physical exam, chart review, lab review, review of studies, conversation w/ sales representative consultant, review of inpatient medication list Patient offers no new complaints today. Oral pain better. no fever, no chest pain, no increase in cough. All Other Systems: Reviewed and Negative Medications Current Inpatient Medications Medications (Trade) Dose Ordered Sig/Quan Route Start Time Stop Time Status Last Admin Dose Admin Vitamin B Complex (Vitamin B Complex) 1 tab DAILY PO 09/18/16 09:00 10/18/16 08:59 10/03/16 08:36 1 TAB Acetaminophen (Tylenol Tab) 650 mg Q6H PRN PO 09/18/16 08:15 10/18/16 08:14 10/01/16 22:11 650 MG Daptomycin (Consult) 1 ea UD PRN N/A 09/19/16 08:30 10/19/16 08:29 Miconazole Nitrate 1 appln 1 appln PRN PRN EXT 09/20/16 15:15 10/20/16 15:14 09/25/16 20:20 1 APPLN Pantoprazole Sodium/Syringe (Protonix Inj/ Syringe) 10 ml @ 5 mls/min DAILY@09,21 IV 09/23/16 21:00 10/23/16 20:59 10/03/16 08:38 5 MLS/MIN Heparin Sodium (Porcine) (Heparin 10 Unit/ ml 5 ml Flush) 5 ml PRN PRN FLUSH 09/24/16 15:15 10/24/16 15:14 10/03/16 16:04 5 ML Fluoxetine HCl (Prozac Soln) 20 mg QAM PO 09/26/16 09:00 10/26/16 08:59 10/03/16 08:38 20 MG Multivitamins Therapeutic (Cerovite Liquid) 15 ml QAM PO 09/26/16 09:00 10/26/16 08:59 10/03/16 08:35 15 ML Ascorbic Acid (Vitamin C Tab) 1,000 mg QAM PO 09/26/16 09:00 10/26/16 08:59 10/03/16 08:32 1,000 MG Cholecalciferol (Vitamin D Tab) 1,000 inter.unit QAM PO 09/26/16 09:00 10/26/16 08:59 10/03/16 09:21 1,000 INTER.UNIT Docusate Sodium (coLACE SYRUP) 100 mg BID PO 09/25/16 21:00 10/25/16 20:59 10/03/16 08:33 100 MG Heparin Sodium (Porcine) (Heparin Sq 5000 Unit/0.5ml) 5,000 unit Q12 SQ 09/29/16 21:00 10/29/16 20:59 10/03/16 09:09 5,000 UNIT Acyclovir Sodium 1 ea 1 ea UD PRN N/A 09/28/16 20:00 10/28/16 19:59 Lorazepam/Syringe (Ativan Inj/ Syringe) 0.5 ml @ 0.5 mls/min Q8H PRN IV 09/30/16 21:30 10/30/16 21:29 Fluconazole (Consult) 1 ea UD PRN N/A 09/30/16 21:45 10/30/16 21:44 Valproic Acid (Depakene Syrup) 250 mg BID NG 10/01/16 09:00 10/31/16 08:59 10/03/16 08:35 250 MG Gabapentin (Neurontin) 100 mg BID NG 10/01/16 09:00 10/31/16 08:59 10/03/16 09:12 100 MG Sodium Biphosphate/ Sodium Phosphate 132 ml DAILY PRN FL 10/01/16 07:00 10/31/16 06:59 10/01/16 21:25 132 ML Lidocaine HCl/ Diphenhydramine HCl/Al Hydroxide/ Mg Hydroxide/ Glycerin/Barcode (VISCOUS LIDOCAINE 2% Soln/ Benadryl Syrup/ Maalox Susp/ Glycerin Anhydrous Soln) AC MT 10/01/16 16:15 10/31/16 16:14 10/03/16 09:22 5 ML Potassium Chloride (Babs Ciel Elix) 40 meq QAM NG 10/02/16 09:00 11/01/16 08:59 10/03/16 09:22 40 MEQ Enteral Nutritional Formula (Boost Plus Vanilla) 1 can BIDM PO 10/02/16 16:45 11/01/16 16:44 10/03/16 09:12 1 CAN Enteral Nutritional Formula (Novasource Renal) 1,000 ml DAILY@1645 NG 10/02/16 16:45 11/01/16 16:44 Future hold 10/02/16 17:13 1,000 ML Miscellaneous 1 ea 1 ea DAILY@0445 N/A 10/03/16 04:45 11/02/16 04:44 Future hold 10/03/16 05:04 1 EA Daptomycin 650 mg/ Sodium Chloride 63 ml @ 120 mls/hr Q24H IV 10/03/16 10:00 11/02/16 08:59 10/03/16 09:53 120 MLS/HR Fluconazole/ Sodium Chloride 200 mg/Prmx 100 ml @ 100 mls/hr Q24H IV 10/03/16 12:00 10/09/16 12:59 10/03/16 13:10 100 MLS/HR Acyclovir Sodium/ Dextrose (Zovirax Inj/D5 100ml) 108 ml @ 100 mls/hr Q8H IV 10/03/16 10:00 10/08/16 09:05 10/03/16 10:51 100 MLS/HR Miscellaneous (Stop Order) 1 ea 0000 ONCE N/A 10/04/16 00:00 10/04/16 00:01 Objective Vital Signs Date Time Temp Pulse Resp B/P Pulse Ox O2 Delivery O2 Flow Rate FiO2 10/03/16 16:02 Room Air 10/03/16 15:27 36.8 83 16 160/75 97 Room Air 10/03/16 07:49 37.4 84 18 156/71 96 Room Air 10/03/16 00:35 Room Air 10/02/16 23:55 37.0 81 20 156/68 95 Room Air 10/02/16 21:30 37.2 80 17 145/72 97 Room Air 10/02/16 19:35 Room Air 10/02/16 19:20 36.9 83 20 97 3.0 Physical Exam General Appearance: WD/WN, no apparent distress Eyes: normal inspection, sclerae normal ENT: + pertinent finding (Oral ulcerations improving) Neck: supple, no adenopathy, trachea midline Respiratory/Chest: lungs clear, normal breath sounds, no respiratory distress Cardiovascular: regular rate, rhythm, no gallop, no murmur Abdomen: normal bowel sounds, non tender, soft, no organomegaly Extremities: non-tender, no calf tenderness Neurologic/Psychiatric: alert, oriented x 3 Skin: normal color, no rash Lymphatic: no adenopathy Laboratory Results Last 24 Hours Test 10/03/16 05:05 White Blood Count 11.21 K/uL Red Blood Count 2.55 M/uL Hemoglobin 7.8 g/dL Hematocrit 23.7 % Mean Corpuscular Volume 92.9 fL Mean Corpuscular Hemoglobin 30.6 pg Mean Corpuscular Hemoglobin Concent 32.9 g/dl Platelet Count 340 K/uL Mean Platelet Volume 9.4 fL Neutrophils (%) (Auto) 64.9 % Lymphocytes (%) (Auto) 17.6 % Monocytes (%) (Auto) 9.3 % Eosinophils (%) (Auto) 6.2 % Basophils (%) (Auto) 0.7 % Neutrophils # (Auto) 7.27 K/uL Lymphocytes # (Auto) 1.97 K/uL Monocytes # (Auto) 1.04 K/uL Eosinophils # (Auto) 0.70 K/uL Basophils # (Auto) 0.08 K/uL RDW Standard Deviation 54.8 fL RDW Coefficient of Variation 18.7 % Immature Granulocyte % (Auto) 1.3 % Immature Granulocyte # (Auto) 0.15 K/uL Nucleated RBC Absolute Count (auto) 0.05 K/uL Nucleated Red Blood Cells % 0.4 % Polychromasia 1+ Basophilic Stippling 1+ Anisocytosis PRESENT Sodium Level 140 mmol/L Potassium Level 3.5 mmol/L Chloride Level 102 mmol/L Carbon Dioxide Level 32 mmol/L Anion Gap 6.0 mmol/L Blood Urea Nitrogen 43 mg/dl Creatinine 1.10 mg/dl Est Creatinine Clear Calc Drug Dose 52.7 ml/min Estimated GFR () 58.1 Estimated GFR (Non- 50.1 BUN/Creatinine Ratio 39.5 Random Glucose 108 mg/dl Calcium Level 8.6 mg/dl Phosphorus Level 3.6 mg/dl Magnesium Level 1.5 mg/dl Total Bilirubin 0.5 mg/dl Aspartate Amino Transf (AST/SGOT) 13 U/L Alanine Aminotransferase (ALT/SGPT) 16 U/L Alkaline Phosphatase 152 U/L C-Reactive Protein 1.50 mg/dl Total Protein 6.2 gm/dl Albumin 2.1 gm/dl Globulin 4.1 gm/dl Albumin/Globulin Ratio 0.5 Assessment and Plan 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 Patient will require 6 weeks of IV antibiotics for her hip infection, and would give 7 days for her HSV infection. Will need to monitor CPK levels while on daptomycin.
--- NOTE | 2016-10-03 16:25 | Nephrology Progress Note ---
Nephrology Progress Note Date of Service: October 03, 2016. Subjective 70 yo female with atn with hip infection on chronic antibiotics. requiring dialysis and has a tunneled line. pt urinating well and creatinine improving without dialysis. plan for tunneled line removal tomorrow. pt on tube feeds and full liquid diet. mouth not as painful. Objective Date Time Temp Pulse Resp B/P Pulse Ox O2 Delivery O2 Flow Rate FiO2 10/03/16 16:02 Room Air 10/03/16 15:27 36.8 83 16 160/75 97 Room Air 10/03/16 07:49 37.4 84 18 156/71 96 Room Air 10/03/16 00:35 Room Air 10/02/16 23:55 37.0 81 20 156/68 95 Room Air 10/02/16 21:30 37.2 80 17 145/72 97 Room Air 10/02/16 19:35 Room Air 10/02/16 19:20 36.9 83 20 97 3.0 Physical Exam: General-[id number] Eyes-no scleral icterus ENT-+mouth sores Neck-supple Lungs-cta Heart-2/6 systolic murmur Abdomen-bs+ s/nt Extremities-+1 edema, left hip wrapped Neuro-nonfocal Current Inpatient Medications Medications (Trade) Dose Ordered Sig/Quan Route Start Time Stop Time Status Last Admin Dose Admin Vitamin B Complex (Vitamin B Complex) 1 tab DAILY PO 09/18/16 09:00 10/18/16 08:59 10/03/16 08:36 1 TAB Acetaminophen (Tylenol Tab) 650 mg Q6H PRN PO 09/18/16 08:15 10/18/16 08:14 10/03/16 16:10 650 MG Daptomycin (Consult) 1 ea UD PRN N/A 09/19/16 08:30 10/19/16 08:29 Miconazole Nitrate 1 appln 1 appln PRN PRN EXT 09/20/16 15:15 10/20/16 15:14 09/25/16 20:20 1 APPLN Pantoprazole Sodium/Syringe (Protonix Inj/ Syringe) 10 ml @ 5 mls/min DAILY@09,21 IV 09/23/16 21:00 10/23/16 20:59 10/03/16 08:38 5 MLS/MIN Heparin Sodium (Porcine) (Heparin 10 Unit/ ml 5 ml Flush) 5 ml PRN PRN FLUSH 09/24/16 15:15 10/24/16 15:14 10/03/16 16:08 5 ML Fluoxetine HCl (Prozac Soln) 20 mg QAM PO 09/26/16 09:00 10/26/16 08:59 10/03/16 08:38 20 MG Multivitamins Therapeutic (Cerovite Liquid) 15 ml QAM PO 09/26/16 09:00 10/26/16 08:59 10/03/16 08:35 15 ML Ascorbic Acid (Vitamin C Tab) 1,000 mg QAM PO 09/26/16 09:00 10/26/16 08:59 10/03/16 08:32 1,000 MG Cholecalciferol (Vitamin D Tab) 1,000 inter.unit QAM PO 09/26/16 09:00 10/26/16 08:59 10/03/16 09:21 1,000 INTER.UNIT Docusate Sodium (coLACE SYRUP) 100 mg BID PO 09/25/16 21:00 10/25/16 20:59 10/03/16 08:33 100 MG Heparin Sodium (Porcine) (Heparin Sq 5000 Unit/0.5ml) 5,000 unit Q12 SQ 09/29/16 21:00 10/29/16 20:59 10/03/16 09:09 5,000 UNIT Acyclovir Sodium 1 ea 1 ea UD PRN N/A 09/28/16 20:00 10/28/16 19:59 Lorazepam/Syringe (Ativan Inj/ Syringe) 0.5 ml @ 0.5 mls/min Q8H PRN IV 09/30/16 21:30 10/30/16 21:29 Fluconazole (Consult) 1 ea UD PRN N/A 09/30/16 21:45 10/30/16 21:44 Valproic Acid (Depakene Syrup) 250 mg BID NG 10/01/16 09:00 10/31/16 08:59 10/03/16 08:35 250 MG Gabapentin (Neurontin) 100 mg BID NG 10/01/16 09:00 10/31/16 08:59 10/03/16 09:12 100 MG Sodium Biphosphate/ Sodium Phosphate 132 ml DAILY PRN NC 10/01/16 07:00 10/31/16 06:59 10/01/16 21:25 132 ML Lidocaine HCl/ Diphenhydramine HCl/Al Hydroxide/ Mg Hydroxide/ Glycerin/Barcode (VISCOUS LIDOCAINE 2% Soln/ Benadryl Syrup/ Maalox Susp/ Glycerin Anhydrous Soln) AC MT 10/01/16 16:15 10/31/16 16:14 10/03/16 09:22 5 ML Potassium Chloride (Babs Ciel Elix) 40 meq QAM NG 10/02/16 09:00 11/01/16 08:59 10/03/16 09:22 40 MEQ Enteral Nutritional Formula (Boost Plus Vanilla) 1 can BIDM PO 10/02/16 16:45 11/01/16 16:44 10/03/16 09:12 1 CAN Enteral Nutritional Formula (Novasource Renal) 1,000 ml DAILY@1645 NG 10/02/16 16:45 11/01/16 16:44 Future hold 10/02/16 17:13 1,000 ML Miscellaneous 1 ea 1 ea DAILY@0445 N/A 10/03/16 04:45 11/02/16 04:44 Future hold 10/03/16 05:04 1 EA Daptomycin 650 mg/ Sodium Chloride 63 ml @ 120 mls/hr Q24H IV 10/03/16 10:00 11/02/16 08:59 10/03/16 09:53 120 MLS/HR Fluconazole/ Sodium Chloride 200 mg/Prmx 100 ml @ 100 mls/hr Q24H IV 10/03/16 12:00 10/09/16 12:59 10/03/16 13:10 100 MLS/HR Acyclovir Sodium/ Dextrose (Zovirax Inj/D5 100ml) 108 ml @ 100 mls/hr Q8H IV 10/03/16 10:00 10/08/16 09:05 10/03/16 10:51 100 MLS/HR Miscellaneous (Stop Order) 1 ea 0000 ONCE N/A 10/04/16 00:00 10/04/16 00:01 Last 24 Hours Test 10/03/16 05:05 White Blood Count 11.21 K/uL Red Blood Count 2.55 M/uL Hemoglobin 7.8 g/dL Hematocrit 23.7 % Mean Corpuscular Volume 92.9 fL Mean Corpuscular Hemoglobin 30.6 pg Mean Corpuscular Hemoglobin Concent 32.9 g/dl Platelet Count 340 K/uL Mean Platelet Volume 9.4 fL Neutrophils (%) (Auto) 64.9 % Lymphocytes (%) (Auto) 17.6 % Monocytes (%) (Auto) 9.3 % Eosinophils (%) (Auto) 6.2 % Basophils (%) (Auto) 0.7 % Neutrophils # (Auto) 7.27 K/uL Lymphocytes # (Auto) 1.97 K/uL Monocytes # (Auto) 1.04 K/uL Eosinophils # (Auto) 0.70 K/uL Basophils # (Auto) 0.08 K/uL RDW Standard Deviation 54.8 fL RDW Coefficient of Variation 18.7 % Immature Granulocyte % (Auto) 1.3 % Immature Granulocyte # (Auto) 0.15 K/uL Nucleated RBC Absolute Count (auto) 0.05 K/uL Nucleated Red Blood Cells % 0.4 % Polychromasia 1+ Basophilic Stippling 1+ Anisocytosis PRESENT Sodium Level 140 mmol/L Potassium Level 3.5 mmol/L Chloride Level 102 mmol/L Carbon Dioxide Level 32 mmol/L Anion Gap 6.0 mmol/L Blood Urea Nitrogen 43 mg/dl Creatinine 1.10 mg/dl Est Creatinine Clear Calc Drug Dose 52.7 ml/min Estimated GFR () 58.1 Estimated GFR (Non- 50.1 BUN/Creatinine Ratio 39.5 Random Glucose 108 mg/dl Calcium Level 8.6 mg/dl Phosphorus Level 3.6 mg/dl Magnesium Level 1.5 mg/dl Total Bilirubin 0.5 mg/dl Aspartate Amino Transf (AST/SGOT) 13 U/L Alanine Aminotransferase (ALT/SGPT) 16 U/L Alkaline Phosphatase 152 U/L C-Reactive Protein 1.50 mg/dl Total Protein 6.2 gm/dl Albumin 2.1 gm/dl Globulin 4.1 gm/dl Albumin/Globulin Ratio 0.5 Assessment & Plan [id number] to have recovered. plan to remove tunneled line tomorrow. urinating well. volume status is good. no more dialysis needed.
[2016-10-03] MEDS: NOVASOURCE RENAL 1000ML BAG NG SCH (17:38)
--- NOTE | 2016-10-03 22:45 | Progress Note ---
Medicine Progress Note Date & Time of Visit: October 03, 2016 at 11:50 . Subjective Tired after sitting in chair, but gradually regaining strength. No fever or chills. Lip / tongue lesions less painful. No chest pain. No cough or SOB. Tolerating full liquids. No nausea or vomiting. Still has [place] cath. . Objective Last 8 Hrs Date Time Temp Pulse Resp B/P Pulse Ox O2 Delivery O2 Flow Rate FiO2 10/03/16 16:02 Room Air 10/03/16 16:00 Room Air 10/03/16 15:27 36.8 83 16 160/75 97 Room Air Physical Exam: General- sitting in chair; no acute distress Eyes- anicteric ENT- left NGT; labial ulcerations improved; tongue ulcerations improved Neck- no JVD Lungs- clear to auscultation Heart- RRR, II/ sys murmur LSB Abdomen- + BS, soft, nontender Extremities- 1+ pretibial edema; left hip bandaged Neuro- alert, oriented Skin- desquamation hands . Laboratory Results: Last 24 Hours Test 10/03/16 05:05 White Blood Count 11.21 K/uL Red Blood Count 2.55 M/uL Hemoglobin 7.8 g/dL Hematocrit 23.7 % Mean Corpuscular Volume 92.9 fL Mean Corpuscular Hemoglobin 30.6 pg Mean Corpuscular Hemoglobin Concent 32.9 g/dl Platelet Count 340 K/uL Mean Platelet Volume 9.4 fL Neutrophils (%) (Auto) 64.9 % Lymphocytes (%) (Auto) 17.6 % Monocytes (%) (Auto) 9.3 % Eosinophils (%) (Auto) 6.2 % Basophils (%) (Auto) 0.7 % Neutrophils # (Auto) 7.27 K/uL Lymphocytes # (Auto) 1.97 K/uL Monocytes # (Auto) 1.04 K/uL Eosinophils # (Auto) 0.70 K/uL Basophils # (Auto) 0.08 K/uL RDW Standard Deviation 54.8 fL RDW Coefficient of Variation 18.7 % Immature Granulocyte % (Auto) 1.3 % Immature Granulocyte # (Auto) 0.15 K/uL Nucleated RBC Absolute Count (auto) 0.05 K/uL Nucleated Red Blood Cells % 0.4 % Polychromasia 1+ Basophilic Stippling 1+ Anisocytosis PRESENT Sodium Level 140 mmol/L Potassium Level 3.5 mmol/L Chloride Level 102 mmol/L Carbon Dioxide Level 32 mmol/L Anion Gap 6.0 mmol/L Blood Urea Nitrogen 43 mg/dl Creatinine 1.10 mg/dl Est Creatinine Clear Calc Drug Dose 52.7 ml/min Estimated GFR () 58.1 Estimated GFR (Non- 50.1 BUN/Creatinine Ratio 39.5 Random Glucose 108 mg/dl Calcium Level 8.6 mg/dl Phosphorus Level 3.6 mg/dl Magnesium Level 1.5 mg/dl Total Bilirubin 0.5 mg/dl Aspartate Amino Transf (AST/SGOT) 13 U/L Alanine Aminotransferase (ALT/SGPT) 16 U/L Alkaline Phosphatase 152 U/L C-Reactive Protein 1.50 mg/dl Total Protein 6.2 gm/dl Albumin 2.1 gm/dl Globulin 4.1 gm/dl Albumin/Globulin Ratio 0.5 Assessment & Plan MRSA INFECTION LEFT HIP Initially received IV vancomycin x ~ 4 doses. Antibiotic therapy changed to daptomycin 09/19 because of ATN. S/P irrigation 09/19. ID consulted. Rifampin discontinued due to elevated LFT's. ID and GI recommend not restarting rifampin. Continue IV daptomycin. Extended course (at least 6 weeks) anticipated. Today is day # 16 of MRSA coverage. ACUTE KIDNEY INJURY Serum creatinine citlaly as high as 7.1. ATN, multifactorial. Nephrology consulted. Hemodialysis performed, initially via right femoral catheter. Permcath placed 09/29. Urine output improved- now 700-800 mls/shift. Need to watch for volume depletion. Creatinine today = 1.1. Will probably no longer need hemodialysis. Tentative removal of hemodialysis catheter tomorrow. HYPOKALEMIA Serum K yesterday = 3.1. Discontinued renal diet. Replace. Follow. ANEMIA Hgb as low as 7.3. Has received 2 units pRBC's. Hgb today = 7.8. Anemia probably multifactorial. Transfuse PRN to maintain adequate H/H. Follow. ENCEPHALOPATHY Secondary to infection. Improved. NUTRITION Has been unable to take oral nutrition due to stomatitis. Oral lesions are healing and oral intake better. Advance diet as tolerated. Continue NG feedings. OROLABIAL LESIONS Unable to eat or drink much because of oral discomfort. 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 Improving. Continue Rx with IV acyclovir x 7 days. BIPOLAR DISORDER Depakote ER has been on hold- unable to crush due for NGT. Still unable to swallow pills. Stared on valproic acid syrup. ? DEMENTIA History clarified with patient and daughter. Had some problems with memory when receiving chemo in past, but never had tracy dementia. SLEEP APNEA Continue O2. Resume CPAP once NGT removed. UTI Urine culture grew Shraddha. Receiving fluconazole. VTE PROPHYLAXIS SQ heparin. SCD's. Ambulate as able. RESUSCITATION STATUS Resuscitation status had been changed to DNR when critically ill in ICU. Patient is now recovering and prognosis appears to be good. Discussed with daughter. Code status changed back to "Level 1" (full code). DISPOSITION To be determined. Anticipate need for skilled care or inpatient rehab. Patient and family prefer [facility] or [facility]. Case Management following. Internal Medicine follow-up with Dr. Seth. . Consultants: Orthopedics Nephrology Critical Care Medicine GI ID . Procedures: CT hip 1. 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 No evidence of fracture 3. No significant joint effusion although the examination is limited due to streak artifact 4. Partially visualized 6 cm collection within the subcutaneous tissues lateral to the left gluteal musculature. This is not possible on the basis of this study to determine whether this collection is infected or sterile. Liver ultrasound No significant abnormality identified within the right upper quadrant. cardiac monitoring IV meds liver US CT head venous duplex extremity right femoral hemodialysis catheter right tunneled IJ hemodialysis catheter . Current Inpatient Medications: Current Inpatient Medications Medications (Trade) Dose Ordered Sig/Quan Route Start Time Stop Time Status Last Admin Dose Admin Vitamin B Complex (Vitamin B Complex) 1 tab DAILY PO 09/18/16 09:00 10/18/16 08:59 10/03/16 08:36 1 TAB Acetaminophen (Tylenol Tab) 650 mg Q6H PRN PO 09/18/16 08:15 10/18/16 08:14 10/03/16 16:10 650 MG Daptomycin (Consult) 1 ea UD PRN N/A 09/19/16 08:30 10/19/16 08:29 Miconazole Nitrate 1 appln 1 appln PRN PRN EXT 09/20/16 15:15 10/20/16 15:14 09/25/16 20:20 1 APPLN Pantoprazole Sodium/Syringe (Protonix Inj/ Syringe) 10 ml @ 5 mls/min DAILY@09,21 IV 09/23/16 21:00 10/23/16 20:59 10/03/16 20:48 5 MLS/MIN Heparin Sodium (Porcine) (Heparin 10 Unit/ ml 5 ml Flush) 5 ml PRN PRN FLUSH 09/24/16 15:15 10/24/16 15:14 10/03/16 20:51 5 ML Fluoxetine HCl (Prozac Soln) 20 mg QAM PO 09/26/16 09:00 10/26/16 08:59 10/03/16 08:38 20 MG Multivitamins Therapeutic (Cerovite Liquid) 15 ml QAM PO 09/26/16 09:00 10/26/16 08:59 10/03/16 08:35 15 ML Ascorbic Acid (Vitamin C Tab) 1,000 mg QAM PO 09/26/16 09:00 10/26/16 08:59 10/03/16 08:32 1,000 MG Cholecalciferol (Vitamin D Tab) 1,000 inter.unit QAM PO 09/26/16 09:00 10/26/16 08:59 10/03/16 09:21 1,000 INTER.UNIT Docusate Sodium (coLACE SYRUP) 100 mg BID PO 09/25/16 21:00 10/25/16 20:59 10/03/16 20:48 100 MG Heparin Sodium (Porcine) (Heparin Sq 5000 Unit/0.5ml) 5,000 unit Q12 SQ 09/29/16 21:00 10/29/16 20:59 10/03/16 20:49 5,000 UNIT Acyclovir Sodium 1 ea 1 ea UD PRN N/A 09/28/16 20:00 10/28/16 19:59 Lorazepam/Syringe (Ativan Inj/ Syringe) 0.5 ml @ 0.5 mls/min Q8H PRN IV 09/30/16 21:30 10/30/16 21:29 Fluconazole (Consult) 1 ea UD PRN N/A 09/30/16 21:45 10/30/16 21:44 Valproic Acid (Depakene Syrup) 250 mg BID NG 10/01/16 09:00 10/31/16 08:59 10/03/16 20:47 250 MG Gabapentin (Neurontin) 100 mg BID NG 10/01/16 09:00 10/31/16 08:59 10/03/16 20:47 100 MG Sodium Biphosphate/ Sodium Phosphate 132 ml DAILY PRN RI 10/01/16 07:00 10/31/16 06:59 10/01/16 21:25 132 ML Lidocaine HCl/ Diphenhydramine HCl/Al Hydroxide/ Mg Hydroxide/ Glycerin/Barcode (VISCOUS LIDOCAINE 2% Soln/ Benadryl Syrup/ Maalox Susp/ Glycerin Anhydrous Soln) AC MT 10/01/16 16:15 10/31/16 16:14 10/03/16 17:00 5 ML Potassium Chloride (Babs Ciel Elix) 40 meq QAM NG 10/02/16 09:00 11/01/16 08:59 10/03/16 09:22 40 MEQ Enteral Nutritional Formula (Boost Plus Vanilla) 1 can BIDM PO 10/02/16 16:45 11/01/16 16:44 10/03/16 17:58 1 CAN Enteral Nutritional Formula (Novasource Renal) 1,000 ml DAILY@1645 NG 10/02/16 16:45 11/01/16 16:44 Future Hold 10/03/16 17:38 1,000 ML Miscellaneous 1 ea 1 ea DAILY@0445 N/A 10/03/16 04:45 11/02/16 04:44 Future hold 10/03/16 05:04 1 EA Daptomycin 650 mg/ Sodium Chloride 63 ml @ 120 mls/hr Q24H IV 10/03/16 10:00 11/02/16 08:59 10/03/16 09:53 120 MLS/HR Fluconazole/ Sodium Chloride 200 mg/Prmx 100 ml @ 100 mls/hr Q24H IV 10/03/16 12:00 10/09/16 12:59 10/03/16 13:10 100 MLS/HR Acyclovir Sodium/ Dextrose (Zovirax Inj/D5 100ml) 108 ml @ 100 mls/hr Q8H IV 10/03/16 10:00 10/08/16 09:05 10/03/16 10:51 100 MLS/HR Miscellaneous (Stop Order) 1 ea 0000 ONCE N/A 10/04/16 00:00 10/04/16 00:01
[2016-10-03 23:18] VITALS: BP 149/77; PULSE 81; TEMP 37; O2SAT 95
[2016-10-04] VITALS (10 sets, daily range): BP systolic 149–174; BP diastolic 63–80; PULSE 77–87; TEMP 36.1–37.3; O2SAT 93–98
[2016-10-04] MEDS ORDERED: [UNRECOGNIZED DRUG - REMARK] ONE
[2016-10-04] MEDS: DEXTROSE 5% IV SCH ×3 (00:44→16:18)
[2016-10-04] MEDS: ACYCLOVIR SOD IV SCH ×3 (00:44→16:18)
[2016-10-04] MEDS: [UNRECOGNIZED DRUG - REMARK] SCH (04:45)
[2016-10-04 05:48] LABS: HEMATOCRIT 23.6 % (37-47); MEAN CELL VOLUME 92.5 fL (80-100); MEAN CORPUSCULAR HGB CONC 31.4 g/dl (32-36); MEAN PLATELET VOLUME 8.8 fL (7.4-10.4); PLATELET COUNT 324 K/uL (130-400); RED BLOOD COUNT 2.55 M/uL (4.2-5.4); WHITE BLOOD COUNT 8.18 K/uL (4.8-10.8)
[2016-10-04 06:24] LABS: BUN/CREATININE RATIO 39.7 (10-20); CALCIUM 8.4 mg/dl (8.5-10.1); CREATININE 0.95 mg/dl (0.60-1.20); POTASSIUM 3.9 mmol/L (3.5-5.1)
--- NOTE | 2016-10-04 07:00 | Nephrology Progress Note ---
Nephrology Progress Note Date of Service: October 04, 2016. Subjective 70 yo female with atn with hip infection on chronic antibiotics. requiring dialysis and has a tunneled line. pt urinating well and creatinine improving without dialysis. currently npo for tunneled line removal today by vascular surgery. appears to have recovered kidney function. continues to have ng tube in place with sores on mouth Objective Date Time Temp Pulse Resp B/P Pulse Ox O2 Delivery O2 Flow Rate FiO2 10/04/16 00:50 Room Air 10/03/16 23:18 37.0 81 18 149/77 95 Room Air 10/03/16 16:02 Room Air 10/03/16 16:00 Room Air 10/03/16 15:27 36.8 83 16 160/75 97 Room Air 10/03/16 07:49 37.4 84 18 156/71 96 Room Air Physical Exam: General-aaox3 Eyes-no scleral icterus ENT-+mouth sores,excoriations, ng tube in place Neck-supple Lungs-clear Heart-2/6 systolic murmur, regular Abdomen-bs+ s/nt Extremities-+1 edema, left hip wrapped Neuro-nonfocal Current Inpatient Medications Medications (Trade) Dose Ordered Sig/Quan Route Start Time Stop Time Status Last Admin Dose Admin Vitamin B Complex (Vitamin B Complex) 1 tab DAILY PO 09/18/16 09:00 10/18/16 08:59 10/03/16 08:36 1 TAB Acetaminophen (Tylenol Tab) 650 mg Q6H PRN PO 09/18/16 08:15 10/18/16 08:14 10/03/16 16:10 650 MG Daptomycin (Consult) 1 ea UD PRN N/A 09/19/16 08:30 10/19/16 08:29 Miconazole Nitrate 1 appln 1 appln PRN PRN EXT 09/20/16 15:15 10/20/16 15:14 09/25/16 20:20 1 APPLN Pantoprazole Sodium/Syringe (Protonix Inj/ Syringe) 10 ml @ 5 mls/min DAILY@09,21 IV 09/23/16 21:00 10/23/16 20:59 10/03/16 20:48 5 MLS/MIN Heparin Sodium (Porcine) (Heparin 10 Unit/ ml 5 ml Flush) 5 ml PRN PRN FLUSH 09/24/16 15:15 10/24/16 15:14 10/04/16 05:34 15 ML Fluoxetine HCl (Prozac Soln) 20 mg QAM PO 09/26/16 09:00 10/26/16 08:59 10/03/16 08:38 20 MG Multivitamins Therapeutic (Cerovite Liquid) 15 ml QAM PO 09/26/16 09:00 10/26/16 08:59 10/03/16 08:35 15 ML Ascorbic Acid (Vitamin C Tab) 1,000 mg QAM PO 09/26/16 09:00 10/26/16 08:59 10/03/16 08:32 1,000 MG Cholecalciferol (Vitamin D Tab) 1,000 inter.unit QAM PO 09/26/16 09:00 10/26/16 08:59 10/03/16 09:21 1,000 INTER.UNIT Docusate Sodium (coLACE SYRUP) 100 mg BID PO 09/25/16 21:00 10/25/16 20:59 10/03/16 20:48 100 MG Heparin Sodium (Porcine) (Heparin Sq 5000 Unit/0.5ml) 5,000 unit Q12 SQ 09/29/16 21:00 10/29/16 20:59 10/03/16 20:49 5,000 UNIT Acyclovir Sodium 1 ea 1 ea UD PRN N/A 09/28/16 20:00 10/28/16 19:59 Lorazepam/Syringe (Ativan Inj/ Syringe) 0.5 ml @ 0.5 mls/min Q8H PRN IV 09/30/16 21:30 10/30/16 21:29 Fluconazole (Consult) 1 ea UD PRN N/A 09/30/16 21:45 10/30/16 21:44 Valproic Acid (Depakene Syrup) 250 mg BID NG 10/01/16 09:00 10/31/16 08:59 10/03/16 20:47 250 MG Gabapentin (Neurontin) 100 mg BID NG 10/01/16 09:00 10/31/16 08:59 10/03/16 20:47 100 MG Sodium Biphosphate/ Sodium Phosphate 132 ml DAILY PRN NH 10/01/16 07:00 10/31/16 06:59 10/01/16 21:25 132 ML Lidocaine HCl/ Diphenhydramine HCl/Al Hydroxide/ Mg Hydroxide/ Glycerin/Barcode (VISCOUS LIDOCAINE 2% Soln/ Benadryl Syrup/ Maalox Susp/ Glycerin Anhydrous Soln) AC MT 10/01/16 16:15 10/31/16 16:14 10/03/16 17:00 5 ML Potassium Chloride (Babs Ciel Elix) 40 meq QAM NG 10/02/16 09:00 11/01/16 08:59 10/03/16 09:22 40 MEQ Enteral Nutritional Formula (Boost Plus Vanilla) 1 can BIDM PO 10/02/16 16:45 11/01/16 16:44 10/03/16 17:58 1 CAN Enteral Nutritional Formula (Novasource Renal) 1,000 ml DAILY@1645 NG 10/02/16 16:45 11/01/16 16:44 Future Hold 10/03/16 17:38 1,000 ML Miscellaneous 1 ea 1 ea DAILY@0445 N/A 10/03/16 04:45 11/02/16 04:44 Future hold 10/04/16 04:45 1 EA Daptomycin 650 mg/ Sodium Chloride 63 ml @ 120 mls/hr Q24H IV 10/03/16 10:00 11/02/16 08:59 10/03/16 09:53 120 MLS/HR Fluconazole/ Sodium Chloride 200 mg/Prmx 100 ml @ 100 mls/hr Q24H IV 10/03/16 12:00 10/09/16 12:59 10/03/16 13:10 100 MLS/HR Acyclovir Sodium/ Dextrose (Zovirax Inj/D5 100ml) 108 ml @ 100 mls/hr Q8H IV 10/03/16 10:00 10/08/16 09:05 10/04/16 00:44 100 MLS/HR Last 24 Hours Test 10/04/16 05:40 White Blood Count 8.18 K/uL Red Blood Count 2.55 M/uL Hemoglobin 7.4 g/dL Hematocrit 23.6 % Mean Corpuscular Volume 92.5 fL Mean Corpuscular Hemoglobin 29.0 pg Mean Corpuscular Hemoglobin Concent 31.4 g/dl RDW Standard Deviation 54.8 fL RDW Coefficient of Variation 19.3 % Platelet Count 324 K/uL Mean Platelet Volume 8.8 fL Nucleated RBC Absolute Count (auto) 0.02 K/uL Nucleated Red Blood Cells % 0.3 % Sodium Level 140 mmol/L Potassium Level 3.9 mmol/L Chloride Level 104 mmol/L Carbon Dioxide Level 30 mmol/L Anion Gap 6.0 mmol/L Blood Urea Nitrogen 38 mg/dl Creatinine 0.95 mg/dl Est Creatinine Clear Calc Drug Dose 61.4 ml/min Estimated GFR () 69.4 Estimated GFR (Non- 59.8 BUN/Creatinine Ratio 39.7 Random Glucose 94 mg/dl Calcium Level 8.4 mg/dl Assessment & Plan [id number] to have recovered. plan to remove tunneled line today. volume status has improved. mental status also better. urinating well. no more dialysis needed. urinated 3 liters yesterday. follow electrolytes. may need to still develop the appropriate concentration gradient before being able to concentrate the urine appropriately.
[2016-10-04] MEDS: LIDOCAINE HCL 2% VISCOUS SOLN 60 ML, DiphenhydrAMINE HCL SYRUP 150 MG, ALUMINUM/MAGNESI... MT SCH ×12 (08:00→17:18)
[2016-10-04] MEDS: BOOST PLUS VANILLA PO SCH ×4 (08:05→17:19)
[2016-10-04] MEDS: VALPROIC ACID 250 MG/5 ML UDP NG SCH ×2 (08:06→20:40)
[2016-10-04] MEDS: POTASSIUM CHLORIDE 20 MEQ/15 ML UDC NG SCH (08:06)
[2016-10-04] MEDS: PANTOprazole INJ 40 MG in SYRINGE 0 ML IV SCH ×2 (08:06→20:39)
[2016-10-04] MEDS: DOCUSATE SODIUM 100 MG/10 ML UDC PO SCH ×2 (08:06→20:40)
[2016-10-04] MEDS: FLUOXETINE HCL 20 MG/5 ML UDP PO SCH (08:06)
[2016-10-04] MEDS: MULTIVITAMINS W/MINERALS 15ML UDP PO SCH (08:06)
[2016-10-04] MEDS: VITAMIN B COMPLEX TAB PO SCH (08:06)
[2016-10-04] MEDS: GABAPENTIN 250 MG/5 ML 470 ML BTL NG SCH ×2 (08:06→20:39)
[2016-10-04] MEDS: HEPARIN SOD 5000 UNIT/0.5 ML CARP SQ SCH ×2 (08:07→20:42)
[2016-10-04] MEDS: CHOLECALCIFEROL 1000 INTER.UNIT TAB PO SCH (08:07)
[2016-10-04] MEDS: ASCORBIC ACID 500 MG TAB PO SCH (08:07)
[2016-10-04] MEDS: MICONAZOLE NITRATE POWDER 43 GM EXT PRN (08:09)
[2016-10-04] MEDS: DAPTOmycin IV 650 MG in SODIUM CHLORIDE 0.9% 50ML 50 ML IV SCH (10:42)
--- NOTE | 2016-10-04 11:09 | Progress Note ---
Internal Med Progress Note Date of Service: October 04, 2016. Provider Documentation: SUBJECTIVE: Patient is seen and examined at bedside. Patient had tunneled dialysis catheter removal today. Doing well after the procedure. Complains of left hip pain. Denies any chest pain, SOB, dizziness, nausea, abd pain. Also states pain while swallowing is improving. OBJECTIVE: Vital Signs-as noted below Physical Exam: General Appearance:Moderately built and nourished, no apparent distress Head: normocephalic, Atraumatic ENT:labial and tongue ulcerations improving Eyes: normal inspection, EOMI, PERRL Neck: supple, Trachea midline Respiratory/Chest: Normal breath sounds, CTA Cardiovascular: S1, S2, + systolic murmur Abdomen/GI:Soft, Non tender, Bowel sounds present Extremities/Musculoskelatal: Left hip in bandage, 1+ edema Neurologic/Psych:grossly no focal neurological deficits Skin: normal color, warm, desquamation of hands Lab data as noted below. ASSESSMENT & PLAN: LEFT HIP MRSA INFECTION Initially received IV vancomycin x 4 doses. Currently on daptomycin since 09/19 secondary to ATN. S/P hip irrigation 09/19 Appreciate ID help Rifampin discontinued due to elevated LFT's ID and GI recommended not restarting rifampin. Continue IV daptomycin. Needs at least 6 weeks. Day # 17 ALBERT/ATN multifactorial. Appreciate Nephrology input S/P Hemodialysis Perm cath placed 09/29. Cr at baseline now Removal of hemodialysis catheter:10/04 HYPOKALEMIA Resolved Monitor ANEMIA Hgb: 7.4 today S/P 2 units PRBC's. Anemia probably multifactorial. Monitor H&H, Transfuse PRN No active bleeding ENCEPHALOPATHY Secondary to infection. Improved. NUTRITION unable to take oral nutrition due to stomatitis. Advance diet as tolerated. Continue NG feedings. 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 Improving Continue IV acyclovir for total 7 days. BIPOLAR DISORDER Depakote ER has been on hold- unable to crush due for NGT. Unable to swallow pills Continue valproic acid syrup. ? DEMENTIA Discussed with patient and daughter. Had some problems with memory when receiving chemo in past, but never had tracy dementia SLEEP APNEA Continue O2. Plan to resume CPAP once NGT removed. UTI Urine culture: Shraddha. Continue fluconazole. DVT PX Heparin SQ CODE STATUS Full code DISPOSITION To be determined. Needs placement Patient and family prefer [facility] or [facility]. Fleet [employer] consulted Consultants: Orthopedics Nephrology Critical Care Medicine GI ID . Procedures: CT HIP: 1. 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 No evidence of fracture 3. No significant joint effusion although the examination is limited due to streak artifact 4. Partially visualized 6 cm collection within the subcutaneous tissues lateral to the left gluteal musculature. This is not possible on the basis of this study to determine whether this collection is infected or sterile. Liver ultrasound No significant abnormality identified within the right upper quadrant. Vital Signs: Date Time Temp Pulse Resp B/P Pulse Ox O2 Delivery O2 Flow Rate FiO2 10/04/16 11:16 37.3 87 18 160/72 96 Room Air 3.0 10/04/16 08:42 160/72 10/04/16 08:23 Room Air 10/04/16 07:42 37.3 87 18 174/77 96 Room Air 10/04/16 00:50 Room Air 10/03/16 23:18 37.0 81 18 149/77 95 Room Air 10/03/16 16:02 Room Air 10/03/16 16:00 Room Air 10/03/16 15:27 36.8 83 16 160/75 97 Room Air Lab Results: Results Past 24 Hours Test 10/04/16 05:40 Range/Units White Blood Count 8.18 4.8-10.8 K/uL Red Blood Count 2.55 4.2-5.4 M/uL Hemoglobin 7.4 12.0-16.0 g/dL Hematocrit 23.6 37-47 % Mean Corpuscular Volume 92.5 80-100 fL Mean Corpuscular Hemoglobin 29.0 25-34 pg Mean Corpuscular Hemoglobin Concent 31.4 32-36 g/dl RDW Standard Deviation 54.8 36.4-46.3 fL RDW Coefficient of Variation 19.3 11.5-14.5 % Platelet Count 324 130-400 K/uL Mean Platelet Volume 8.8 7.4-10.4 fL Nucleated RBC Absolute Count (auto) 0.02 0-0 K/uL Nucleated Red Blood Cells % 0.3 % Sodium Level 140 136-145 mmol/L Potassium Level 3.9 3.5-5.1 mmol/L Chloride Level 104 98-107 mmol/L Carbon Dioxide Level 30 21-32 mmol/L Anion Gap 6.0 3-11 mmol/L Blood Urea Nitrogen 38 7-18 mg/dl Creatinine 0.95 0.60-1.20 mg/dl Est Creatinine Clear Calc Drug Dose 61.4 ml/min Estimated GFR () 69.4 Estimated GFR (Non- 59.8 BUN/Creatinine Ratio 39.7 10-20 Random Glucose 94 70-99 mg/dl Calcium Level 8.4 8.5-10.1 mg/dl
--- NOTE | 2016-10-04 12:38 | Progress Note ---
Progress Note Date of Service October 04, 2016. Progress Note Patient for removal of permcath. I have discussed the risks options and benefits of the procedure with the patient. The patient understands the risks options and benefits and agrees to the procedure. I have examined the patient, reviewed the History & Physical and in the interval since the performance of the History & Physical I have noted the following changes of clinical significance: No changes noted
[2016-10-04] MEDS ORDERED: LIDOCAINE HCL 1% 20 ML VIAL ONE (12:50)
[2016-10-04] MEDS ORDERED: LIDOCAINE HCL 1% 20 ML VIAL INJ ONE (13:01)
--- NOTE | 2016-10-04 13:11 | [facility] Post Operative Brief Note ---
Immediate Operative Summary Operative Date October 04, 2016. Pre-Operative Diagnosis functioning kidneys Post-Operative Diagnosis same Procedure(s) Performed Removal Of Perm Catheter Surgeon Dr. Zurita Police Guard Surgeon(s) none Estimated Blood Loss 0 Findings catheter and cuff removed Specimens A. explanted perm catheter Anesthesia Local Complication(s) None Disposition
[2016-10-04] MEDS: FLUCONAZOLE 200MG / NSS IV SCH (13:23)
--- NOTE | 2016-10-04 13:32 | DIAGNOSTIC IMAGING REPORT ---
DATE OF PROCEDURE: 10/04/2016 PREOPERATIVE DIAGNOSIS: Functioning kidneys. POSTOPERATIVE DIAGNOSIS: Same. PROCEDURE: Removal of PermCath. SURGEON: Dr. Zurita. ANESTHETIC: Local. PROCEDURE INDICATIONS: The patient is a 70-year-old female who had PermCath in place for dialysis. Her kidneys have now recovered and she is in need of having the PermCath removed. She understood the risks, options and benefits, and agreed to have this procedure. The patient was taken to the angio suite and placed in supine position. After right side of the neck and chest wall and catheter were prepped and draped in sterile manner, local anesthetic was administered. Her sutures were removed. Using blunt dissection, the cuff was freed up and the catheter removed in its entirety with the cuff. Pressure was then applied. Adequate hemostasis was obtained. After adequate hemostasis was noted, the wound was covered with a sterile dressing. The patient left the angio suite in good condition and tolerated the procedure well.
--- NOTE | 2016-10-04 14:22 | Infectious Disease Progress Nt ---
Progress Note Date of Service October 04, 2016. Subjective Pt evaluation today including: conversation w/ patient, physical exam, chart review, lab review, review of studies, conversation w/ industry consultant, review of inpatient medication list Patient is status post removal of dialysis catheter with improving renal function. Left hip pain minimal. No fever. Continues to tolerate antibiotics. Oral pain better. All Other Systems: Reviewed and Negative Medications Current Inpatient Medications Medications (Trade) Dose Ordered Sig/Quan Route Start Time Stop Time Status Last Admin Dose Admin Vitamin B Complex (Vitamin B Complex) 1 tab DAILY PO 09/18/16 09:00 10/18/16 08:59 10/03/16 08:36 1 TAB Acetaminophen (Tylenol Tab) 650 mg Q6H PRN PO 09/18/16 08:15 10/18/16 08:14 10/03/16 16:10 650 MG Daptomycin (Consult) 1 ea UD PRN N/A 09/19/16 08:30 10/19/16 08:29 Miconazole Nitrate 1 appln 1 appln PRN PRN EXT 09/20/16 15:15 10/20/16 15:14 10/04/16 08:09 1 APPLN Pantoprazole Sodium/Syringe (Protonix Inj/ Syringe) 10 ml @ 5 mls/min DAILY@09,21 IV 09/23/16 21:00 10/23/16 20:59 10/04/16 08:06 5 MLS/MIN Heparin Sodium (Porcine) (Heparin 10 Unit/ ml 5 ml Flush) 5 ml PRN PRN FLUSH 09/24/16 15:15 10/24/16 15:14 10/04/16 05:34 15 ML Fluoxetine HCl (Prozac Soln) 20 mg QAM PO 09/26/16 09:00 10/26/16 08:59 10/03/16 08:38 20 MG Multivitamins Therapeutic (Cerovite Liquid) 15 ml QAM PO 09/26/16 09:00 10/26/16 08:59 10/03/16 08:35 15 ML Ascorbic Acid (Vitamin C Tab) 1,000 mg QAM PO 09/26/16 09:00 10/26/16 08:59 10/03/16 08:32 1,000 MG Cholecalciferol (Vitamin D Tab) 1,000 inter.unit QAM PO 09/26/16 09:00 10/26/16 08:59 10/03/16 09:21 1,000 INTER.UNIT Docusate Sodium (coLACE SYRUP) 100 mg BID PO 09/25/16 21:00 10/25/16 20:59 10/03/16 20:48 100 MG Heparin Sodium (Porcine) (Heparin Sq 5000 Unit/0.5ml) 5,000 unit Q12 SQ 09/29/16 21:00 10/29/16 20:59 10/03/16 20:49 5,000 UNIT Acyclovir Sodium 1 ea 1 ea UD PRN N/A 09/28/16 20:00 10/28/16 19:59 Lorazepam/Syringe (Ativan Inj/ Syringe) 0.5 ml @ 0.5 mls/min Q8H PRN IV 09/30/16 21:30 10/30/16 21:29 Fluconazole (Consult) 1 ea UD PRN N/A 09/30/16 21:45 10/30/16 21:44 Valproic Acid (Depakene Syrup) 250 mg BID NG 10/01/16 09:00 10/31/16 08:59 10/03/16 20:47 250 MG Gabapentin (Neurontin) 100 mg BID NG 10/01/16 09:00 10/31/16 08:59 10/03/16 20:47 100 MG Sodium Biphosphate/ Sodium Phosphate [address] 10/01/16 07:00 10/31/16 06:59 10/01/16 21:25 132 ML Lidocaine HCl/ Diphenhydramine HCl/Al Hydroxide/ Mg Hydroxide/ Glycerin/Barcode (VISCOUS LIDOCAINE 2% Soln/ Benadryl Syrup/ Maalox Susp/ Glycerin Anhydrous Soln) AC MT 10/01/16 16:15 10/31/16 16:14 10/03/16 17:00 5 ML Potassium Chloride (Babs Ciel Elix) 40 meq QAM NG 10/02/16 09:00 11/01/16 08:59 10/03/16 09:22 40 MEQ Enteral Nutritional Formula (Boost Plus Vanilla) 1 can BIDM PO 10/02/16 16:45 11/01/16 16:44 10/03/16 17:58 1 CAN Enteral Nutritional Formula (Novasource Renal) 1,000 ml DAILY@1645 NG 10/02/16 16:45 11/01/16 16:44 Future Hold 10/03/16 17:38 1,000 ML Miscellaneous 1 ea 1 ea DAILY@0445 N/A 10/03/16 04:45 11/02/16 04:44 Future hold 10/04/16 04:45 1 EA Daptomycin 650 mg/ Sodium Chloride 63 ml @ 120 mls/hr Q24H IV 10/03/16 10:00 11/02/16 08:59 10/04/16 10:42 120 MLS/HR Fluconazole/ Sodium Chloride 200 mg/Prmx 100 ml @ 100 mls/hr Q24H IV 10/03/16 12:00 10/09/16 12:59 10/04/16 13:23 100 MLS/HR Acyclovir Sodium/ Dextrose (Zovirax Inj/D5 100ml) 108 ml @ 100 mls/hr Q8H IV 10/03/16 10:00 10/08/16 09:05 10/04/16 08:05 100 MLS/HR Objective Vital Signs Date Time Temp Pulse Resp B/P Pulse Ox O2 Delivery O2 Flow Rate FiO2 10/04/16 13:55 36.9 81 18 163/76 97 Room Air 10/04/16 13:20 36.9 82 154/76 93 10/04/16 11:16 37.3 87 18 160/72 96 Room Air 3.0 10/04/16 08:42 160/72 10/04/16 08:23 Room Air 10/04/16 07:42 37.3 87 18 174/77 96 Room Air 10/04/16 00:50 Room Air 10/03/16 23:18 37.0 81 18 149/77 95 Room Air 10/03/16 16:02 Room Air 10/03/16 16:00 Room Air 10/03/16 15:27 36.8 83 16 160/75 97 Room Air Physical Exam General Appearance: WD/WN, no apparent distress Eyes: normal inspection, sclerae normal ENT: + pertinent finding (Herpetic infection improving) Neck: supple, no adenopathy, trachea midline Respiratory/Chest: chest non-tender, lungs clear, normal breath sounds, no respiratory distress Cardiovascular: regular rate, rhythm, no gallop, no murmur Abdomen: normal bowel sounds, non tender, soft, no organomegaly Extremities: non-tender, no calf tenderness Neurologic/Psychiatric: alert, oriented x 3 Skin: normal color, + pertinent finding (Left hip dressing intact) Lymphatic: no adenopathy Laboratory Results Last 24 Hours Test 10/04/16 05:40 White Blood Count 8.18 K/uL Red Blood Count 2.55 M/uL Hemoglobin 7.4 g/dL Hematocrit 23.6 % Mean Corpuscular Volume 92.5 fL Mean Corpuscular Hemoglobin 29.0 pg Mean Corpuscular Hemoglobin Concent 31.4 g/dl RDW Standard Deviation 54.8 fL RDW Coefficient of Variation 19.3 % Platelet Count 324 K/uL Mean Platelet Volume 8.8 fL Nucleated RBC Absolute Count (auto) 0.02 K/uL Nucleated Red Blood Cells % 0.3 % Sodium Level 140 mmol/L Potassium Level 3.9 mmol/L Chloride Level 104 mmol/L Carbon Dioxide Level 30 mmol/L Anion Gap 6.0 mmol/L Blood Urea Nitrogen 38 mg/dl Creatinine 0.95 mg/dl Est Creatinine Clear Calc Drug Dose 61.4 ml/min Estimated GFR () 69.4 Estimated GFR (Non- 59.8 BUN/Creatinine Ratio 39.7 Random Glucose 94 mg/dl Calcium Level 8.4 mg/dl Assessment and Plan 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 Patient will require 6 weeks of IV antibiotics for her hip infection, and would give 7 days for her HSV infection. Will need to monitor CPK levels while on daptomycin.
[2016-10-04] MEDS ORDERED: NURSING VERBAL MED ORDER ONE (14:45)
[2016-10-04] MEDS: ACETAMINOPHEN 325 MG TAB PO PRN (15:41)
[2016-10-04] MEDS: NOVASOURCE RENAL 1000ML BAG NG SCH (16:28)
--- NOTE | 2016-10-04 20:19 | PROGRESS NOTE ---
DATE: 10/04/2016 SUBJECTIVE: A 70-year-old white female now about 2 weeks out from I\T\D of an infected hip wound after hip replacement surgery. She continues to make daily improvements. She denies any significant pain today. She said it was much more optimistic. OBJECTIVE: VITAL SIGNS: Temperature is 36.7. Vital signs stable. Slightly hypertensive. EXTREMITIES: Examination of left hip reveals the dressing to be in place. This has been changed recently and there is no drainage on it. Hip is located. She is neurologically intact. LABORATORY DATA: White count 8.18 and normal. Hemoglobin 7.4. Hematocrit 23.6. Creatinine is 0.95 and normal. ASSESSMENT: A 70-year-old white female postop or 2 weeks out from I\T\D of an infected total hip wound, doing much better. Kidney function is returning. Pain is controlled. Hip is located. The hip wound is looking better. PLAN: 1. DVT prophylaxis including thigh-high TEDs, SCDs, and subQ heparin. We can put her back on aspirin twice a day once okay from the renal standpoint. 2. PT/OT. Weightbear as tolerated. We did try and mobilize her and get her walking more with therapy. 3. Antibiotic management. She will need daptomycin for at least another month. She will likely need a PICC line or a long-term IV line for that. It would be nice if we could re-introduce rifampin, but will await medical acceptance with that. 4. Disposition: She will likely need a rehab stay of some sort. Any orthopedic questions can be directed to me at [phone]. Will likely take the stitches out of her hip, in the next several days if she is still in the hospital. JT
[2016-10-05] MEDS: ACYCLOVIR SOD IV SCH ×3 (00:01→15:36)
[2016-10-05] MEDS: DEXTROSE 5% IV SCH ×3 (00:01→15:36)
[2016-10-05 02:58] VITALS: BP 162/77; PULSE 81; TEMP 36.9; O2SAT 96
[2016-10-05] MEDS: [UNRECOGNIZED DRUG - REMARK] SCH (04:58)
[2016-10-05 05:50] LABS: HEMATOCRIT 23.6 % (37-47)
[2016-10-05 06:19] LABS: CREATININE 0.87 mg/dl (0.60-1.20); MAGNESIUM 1.3 mg/dl (1.8-2.4)
[2016-10-05] MEDS: LIDOCAINE HCL 2% VISCOUS SOLN 60 ML, DiphenhydrAMINE HCL SYRUP 150 MG, ALUMINUM/MAGNESI... MT SCH ×12 (07:19→17:02)
[2016-10-05] MEDS: ASCORBIC ACID 500 MG TAB PO SCH (07:20)
[2016-10-05] MEDS: CHOLECALCIFEROL 1000 INTER.UNIT TAB PO SCH (07:21)
[2016-10-05] MEDS: DOCUSATE SODIUM 100 MG/10 ML UDC PO SCH ×2 (07:21→22:05)
[2016-10-05] MEDS: MULTIVITAMINS W/MINERALS 15ML UDP PO SCH (07:21)
[2016-10-05] MEDS: VITAMIN B COMPLEX TAB PO SCH (07:21)
[2016-10-05] MEDS: FLUOXETINE HCL 20 MG/5 ML UDP PO SCH (07:22)
[2016-10-05] MEDS: POTASSIUM CHLORIDE 20 MEQ/15 ML UDC NG SCH (07:22)
[2016-10-05] MEDS: VALPROIC ACID 250 MG/5 ML UDP NG SCH ×2 (07:22→22:04)
[2016-10-05] MEDS: GABAPENTIN 250 MG/5 ML 470 ML BTL NG SCH ×2 (07:23→22:36)
[2016-10-05] MEDS: PANTOprazole INJ 40 MG in SYRINGE 0 ML IV SCH ×2 (07:23→22:05)
[2016-10-05] MEDS: HEPARIN SOD 5000 UNIT/0.5 ML CARP SQ SCH ×2 (07:33→22:03)
[2016-10-05] MEDS: BOOST PLUS VANILLA PO SCH ×4 (07:34→17:03)
[2016-10-05 08:02] VITALS: BP 140/80; PULSE 86; TEMP 37; O2SAT 93
[2016-10-05] MEDS: DAPTOmycin IV 650 MG in SODIUM CHLORIDE 0.9% 50ML 50 ML IV SCH (09:57)
[2016-10-05] MEDS: FLUCONAZOLE 200MG / NSS IV SCH (11:47)
[2016-10-05 12:13] VITALS: BP 146/79; PULSE 79; TEMP 36.4; O2SAT 96
--- NOTE | 2016-10-05 12:35 | PROGRESS NOTE ---
DATE: 10/05/2016 SUBJECTIVE: 70-year-old white female 2 weeks out from I\T\D of an infected left hip replacement wound. She is making gradual progress. No new complaints today. Denies any hip pain. OBJECTIVE: VITAL SIGNS: Temperature 36.4. Vital signs stable. PHYSICAL EXAMINATION: GENERAL: Reveals a healthy pleasant, middle-aged female. She is sitting up in bed and looks reasonably comfortable. EXTREMITIES: Examination of left hip reveals the dressing to be in place. With the dressing removed she did have a little bit of drainage on the dressing. Much decreased. Her hip is located. She is neurologically intact. LABORATORY DATA: Hemoglobin 7.7, hematocrit 23.6. ASSESSMENT: 70-year-old female 2 weeks out from I\T\D of an infected left hip wound making gradual improvements. Her white cell count has now been normal. Hemoglobin is low but stable. She is relatively asymptomatic. She still has some hip wound drainage and will have to follow this along. PLAN: 1. DVT prophylaxis including thigh-high TEDs, SCDS and subQ heparin. Once acceptable, we could convert this to aspirin therapy twice a day as her kidney function returns. 2. PT/OT. She can weightbear as tolerated. 3. Pain control, doing reasonably well with current pain regimen. 4. Left hip and infection. We will plan on a total of 6 weeks of IV daptomycin. We would like to introduce rifampin if possible. I will leave the stitches in for probably another 5 days. We will continue daily wound care. 5. Disposition: Disposition is pending medical recovery. From an orthopedic standpoint, she is susceptible for discharge at any time. She will likely need a PICC line for IV antibiotics. I will need to see her back in about 3 weeks postop if she is discharged from the hospital, which I think unlikely. Any orthopedic questions can be directed to me at [phone].
--- NOTE | 2016-10-05 12:54 | Infectious Disease Progress Nt ---
Progress Note Date of Service October 05, 2016. Subjective Pt evaluation today including: conversation w/ patient, physical exam, chart review, lab review, review of studies, conversation w/ biztalk consultant, review of inpatient medication list Hip and swallowing pain improving. Offers no new complaints. Remains afebrile. All Other Systems: Reviewed and Negative Medications Current Inpatient Medications Medications (Trade) Dose Ordered Sig/Quan Route Start Time Stop Time Status Last Admin Dose Admin Vitamin B Complex (Vitamin B Complex) 1 tab DAILY PO 09/18/16 09:00 10/18/16 08:59 10/05/16 07:21 1 TAB Acetaminophen (Tylenol Tab) 650 mg Q6H PRN PO 09/18/16 08:15 10/18/16 08:14 10/04/16 15:41 650 MG Daptomycin (Consult) 1 ea UD PRN N/A 09/19/16 08:30 10/19/16 08:29 Miconazole Nitrate 1 appln 1 appln PRN PRN EXT 09/20/16 15:15 10/20/16 15:14 10/04/16 08:09 1 APPLN Pantoprazole Sodium/Syringe (Protonix Inj/ Syringe) 10 ml @ 5 mls/min DAILY@09,21 IV 09/23/16 21:00 10/23/16 20:59 10/05/16 07:23 5 MLS/MIN Heparin Sodium (Porcine) (Heparin 10 Unit/ ml 5 ml Flush) 5 ml PRN PRN FLUSH 09/24/16 15:15 10/24/16 15:14 10/05/16 05:23 15 ML Fluoxetine HCl (Prozac Soln) 20 mg QAM PO 09/26/16 09:00 10/26/16 08:59 10/05/16 07:22 20 MG Multivitamins Therapeutic (Cerovite Liquid) 15 ml QAM PO 09/26/16 09:00 10/26/16 08:59 10/05/16 07:21 15 ML Ascorbic Acid (Vitamin C Tab) 1,000 mg QAM PO 09/26/16 09:00 10/26/16 08:59 10/05/16 07:20 1,000 MG Cholecalciferol (Vitamin D Tab) 1,000 inter.unit QAM PO 09/26/16 09:00 10/26/16 08:59 10/05/16 07:21 1,000 INTER.UNIT Docusate Sodium (coLACE SYRUP) 100 mg BID PO 09/25/16 21:00 10/25/16 20:59 10/05/16 07:21 100 MG Heparin Sodium (Porcine) (Heparin Sq 5000 Unit/0.5ml) 5,000 unit Q12 SQ 09/29/16 21:00 10/29/16 20:59 10/05/16 07:33 5,000 UNIT Acyclovir Sodium 1 ea 1 ea UD PRN N/A 09/28/16 20:00 10/28/16 19:59 Lorazepam/Syringe (Ativan Inj/ Syringe) 0.5 ml @ 0.5 mls/min Q8H PRN IV 09/30/16 21:30 10/30/16 21:29 Fluconazole (Consult) 1 ea UD PRN N/A 09/30/16 21:45 10/30/16 21:44 Valproic Acid (Depakene Syrup) 250 mg BID NG 10/01/16 09:00 10/31/16 08:59 10/05/16 07:22 250 MG Gabapentin (Neurontin) 100 mg BID NG 10/01/16 09:00 10/31/16 08:59 10/05/16 07:23 100 MG Sodium Biphosphate/ Sodium Phosphate 132 ml DAILY PRN [place] 10/01/16 07:00 10/31/16 06:59 10/01/16 21:25 132 ML Lidocaine HCl/ Diphenhydramine HCl/Al Hydroxide/ Mg Hydroxide/ Glycerin/Barcode (VISCOUS LIDOCAINE 2% Soln/ Benadryl Syrup/ Maalox Susp/ Glycerin Anhydrous Soln) AC MT 10/01/16 16:15 10/31/16 16:14 10/05/16 11:47 5 ML Potassium Chloride (Babs Ciel Elix) 40 meq QAM NG 10/02/16 09:00 11/01/16 08:59 10/05/16 07:22 40 MEQ Enteral Nutritional Formula (Boost Plus Vanilla) 1 can BIDM PO 10/02/16 16:45 11/01/16 16:44 10/04/16 17:19 1 CAN Enteral Nutritional Formula (Novasource Renal) 1,000 ml DAILY@1645 NG 10/02/16 16:45 11/01/16 16:44 Future hold 10/04/16 16:28 1,000 ML Miscellaneous 1 ea 1 ea DAILY@0445 N/A 10/03/16 04:45 11/02/16 04:44 Future hold 10/05/16 04:58 1 EA Daptomycin 650 mg/ Sodium Chloride 63 ml @ 120 mls/hr Q24H IV 10/03/16 10:00 11/02/16 08:59 10/05/16 09:57 120 MLS/HR Fluconazole/ Sodium Chloride 200 mg/Prmx 100 ml @ 100 mls/hr Q24H IV 10/03/16 12:00 10/09/16 12:59 10/05/16 11:47 100 MLS/HR Acyclovir Sodium/ Dextrose (Zovirax Inj/D5 100ml) 108 ml @ 100 mls/hr Q8H IV 10/03/16 10:00 10/08/16 09:05 10/05/16 07:19 100 MLS/HR Objective Vital Signs Date Time Temp Pulse Resp B/P Pulse Ox O2 Delivery O2 Flow Rate FiO2 10/05/16 12:13 36.4 79 18 146/79 96 Room Air 10/05/16 08:02 37.0 86 16 140/80 93 Room Air 10/05/16 07:30 Room Air 10/05/16 02:58 36.9 81 18 162/77 96 Room Air 10/04/16 23:46 Room Air 10/04/16 23:15 37.1 84 18 149/69 94 Room Air 10/04/16 21:21 36.1 79 17 153/63 97 Room Air 10/04/16 16:23 36.7 77 16 151/80 95 Room Air 10/04/16 16:00 Room Air 10/04/16 15:18 36.9 85 17 162/79 97 Room Air 10/04/16 14:22 36.9 86 18 165/75 98 Room Air 10/04/16 13:55 36.9 81 18 163/76 97 Room Air 10/04/16 13:20 36.9 82 154/76 93 Physical Exam General Appearance: WD/WN, no apparent distress Eyes: normal inspection, sclerae normal ENT: normal ENT inspection, + pertinent finding (HSV improving) Neck: supple, no adenopathy, trachea midline Respiratory/Chest: lungs clear, normal breath sounds, no respiratory distress Cardiovascular: regular rate, rhythm, no gallop, no murmur Abdomen: normal bowel sounds, non tender, soft, no organomegaly Extremities: non-tender, no calf tenderness Neurologic/Psychiatric: alert, oriented x 3 Skin: normal color, no rash, + pertinent finding (left hip wound improving) Lymphatic: no adenopathy Laboratory Results Last 24 Hours Test 10/05/16 05:30 Hemoglobin 7.7 g/dL Hematocrit 23.6 % Creatinine 0.87 mg/dl Est Creatinine Clear Calc Drug Dose 67.1 ml/min Estimated GFR () 77.1 Estimated GFR (Non- 66.6 Magnesium Level 1.3 mg/dl Assessment and Plan 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 Patient will require 6 weeks of IV antibiotics for her hip infection, and would give 7 days for her HSV infection. Will need to monitor CPK levels while on daptomycin.
[2016-10-05] MEDS ORDERED: MAGNESIUM SULFATE 1GM / D5W 1 GM in PREMIXED IN D5W 100 ML IV ONE (14:45)
[2016-10-05] MEDS: SOD PHOSPHATE/SOD BIPHOSPHATE ENEMA 132 ML BTL PR PRN (14:47)
--- NOTE | 2016-10-05 15:38 | Progress Note ---
Internal Med Progress Note Date of Service: October 05, 2016. Provider Documentation: SUBJECTIVE: Patient is seen and examined at bedside. States doing better. Slowly able to tolerate oral intake. Pain on swallowing improving. Left hip pain is controlled. Denies any chest pain, SOB, dizziness, nausea, abd pain. OBJECTIVE: Vital Signs-as noted below Physical Exam: General Appearance:Moderately built and nourished, no apparent distress Head: normocephalic, Atraumatic ENT:labial and tongue ulcerations improving Eyes: normal inspection, EOMI, PERRL Neck: supple, Trachea midline Respiratory/Chest: Normal breath sounds, CTA Cardiovascular: S1, S2, + systolic murmur Abdomen/GI:Soft, Non tender, Bowel sounds present Extremities/Musculoskelatal: Left hip in bandage, 1+ edema Neurologic/Psych:grossly no focal neurological deficits Skin: normal color, warm, desquamation of hands Lab data as noted below. ASSESSMENT & PLAN: LEFT HIP MRSA INFECTION Initially received IV vancomycin x 4 doses. Currently on daptomycin since 09/19 secondary to ATN. S/P hip irrigation 09/19 Appreciate ID help Rifampin discontinued due to elevated LFT's ID and GI recommended not restarting rifampin. Continue IV daptomycin. Needs at least 6 weeks. Day # 18 Monitor CPK levels while on Dapto Needs follow up with Ortho upon discharge Appreciate Orthopedics/ID input ALBERT/ATN Resolved multifactorial. Appreciate Nephrology input S/P Hemodialysis Perm cath placed 09/29. Cr at baseline now Removal of hemodialysis catheter:10/04 HYPOKALEMIA/HYPOMAGNESEMIA Replace and monitor Monitor ANEMIA Hgb: 7.7 today S/P 2 units PRBC's. Anemia probably multifactorial. Monitor H&H, Transfuse PRN No active bleeding Minimize Iatrogenic blood loss ENCEPHALOPATHY Secondary to infection. Improved. NUTRITION unable to take oral nutrition due to stomatitis. Advance diet as tolerated. Continue NG feedings. 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 Improving Continue IV acyclovir for total 7 days. BIPOLAR DISORDER Depakote ER has been on hold- unable to crush due for NGT. Unable to swallow pills Continue valproic acid syrup. ? DEMENTIA Discussed with patient and daughter. Had some problems with memory when receiving chemo in past, but never had tracy dementia SLEEP APNEA Continue O2. Plan to resume CPAP once NGT removed. UTI Urine culture: Shraddha. Continue fluconazole. DVT PX Heparin SQ CODE STATUS Full code DISPOSITION To be determined. Needs placement Patient and family prefer [facility] or [facility]. Rooming House Keeper consulted Consultants: Orthopedics Nephrology Critical Care Medicine GI ID . Procedures: CT HIP: 1. 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 No evidence of fracture 3. No significant joint effusion although the examination is limited due to streak artifact 4. Partially visualized 6 cm collection within the subcutaneous tissues lateral to the left gluteal musculature. This is not possible on the basis of this study to determine whether this collection is infected or sterile. Liver ultrasound No significant abnormality identified within the right upper quadrant. Vital Signs: Date Time Temp Pulse Resp B/P Pulse Ox O2 Delivery O2 Flow Rate FiO2 10/05/16 12:13 36.4 79 18 146/79 96 Room Air 10/05/16 08:02 37.0 86 16 140/80 93 Room Air 10/05/16 07:30 Room Air 10/05/16 02:58 36.9 81 18 162/77 96 Room Air 10/04/16 23:46 Room Air 10/04/16 23:15 37.1 84 18 149/69 94 Room Air 10/04/16 21:21 36.1 79 17 153/63 97 Room Air 10/04/16 16:23 36.7 77 16 151/80 95 Room Air 10/04/16 16:00 Room Air Lab Results: Results Past 24 Hours Test 10/05/16 05:30 Range/Units Hemoglobin 7.7 12.0-16.0 g/dL Hematocrit 23.6 37-47 % Creatinine 0.87 0.60-1.20 mg/dl Est Creatinine Clear Calc Drug Dose 67.1 ml/min Estimated GFR () 77.1 Estimated GFR (Non- 66.6 Magnesium Level 1.3 1.8-2.4 mg/dl
[2016-10-05 16:07] VITALS: BP 148/74; PULSE 80; TEMP 36.7; O2SAT 95
[2016-10-05] MEDS: NOVASOURCE RENAL 1000ML BAG NG SCH (17:00)
[2016-10-05 20:02] VITALS: BP 153/68; PULSE 82; TEMP 36.3; O2SAT 97
[2016-10-05 23:05] VITALS: BP 150/77; PULSE 76; TEMP 36.9; O2SAT 96
[2016-10-06] MEDS: [UNRECOGNIZED DRUG - REMARK] SCH (05:08)
[2016-10-06 06:11] LABS: HEMATOCRIT 24.3 % (37-47)
[2016-10-06 06:41] LABS: CREATININE 0.7 mg/dl (0.60-1.20); MAGNESIUM 1.6 mg/dl (1.8-2.4); POTASSIUM 3.6 mmol/L (3.5-5.1)
[2016-10-06 07:06] VITALS: BP 169/81; PULSE 78; TEMP 37.4; O2SAT 96
--- NOTE | 2016-10-06 07:44 | PROGRESS NOTE ---
DATE: 10/06/2016 DATE: 10/06/2016. SUBJECTIVE: A 70-year-old white female about 2-1/2 weeks out from I\T\D of an infected hip wound after total hip replacement. She is doing okay. Denies any significant pain this morning. OBJECTIVE: VITAL SIGNS: Temperature 37.4. Vital signs stable. She has had some intermittent hypertension. PHYSICAL EXAMINATION: EXTREMITIES: Examination of left hip reveals the leg to be well aligned. Dressing is clean, dry and intact. There was no significant drainage on her dressing this morning. She is neurologically intact. LABORATORY DATA: Hemoglobin 7.8. Hematocrit 24.3. ASSESSMENT: A 70-year-old female 2-1/2 weeks out from I\T\D of an infected total hip wound making gradual improvements. Pain seems to be controlled. She has been significantly deconditioned with her recent hospitalization. PLAN: From an orthopedic standpoint, we need to continue DVT prophylaxis including thigh-high TEDs, SCDs. Ideally, we would convert her from subQ heparin to Aspirin at any time medically stable. We would like to mobilize her and progress therapy once medically acceptable. We will continue routine wound care to the hip. She needs 6 weeks of IV daptomycin. We would like to add rifampin when medically possible. She will need probably 6 months of p.o. antibiotics after that. From the orthopedic standpoint we are going to leave these stitches in for a couple more days. We will continue to check her daily. Any orthopedic questions can be directed to me at [phone].
[2016-10-06] MEDS: BOOST PLUS VANILLA PO SCH ×4 (07:53→17:44)
[2016-10-06] MEDS: LIDOCAINE HCL 2% VISCOUS SOLN 60 ML, DiphenhydrAMINE HCL SYRUP 150 MG, ALUMINUM/MAGNESI... MT SCH ×12 (07:53→17:41)
[2016-10-06] MEDS: ASCORBIC ACID 500 MG TAB PO SCH (07:55)
[2016-10-06] MEDS: POTASSIUM CHLORIDE 20 MEQ/15 ML UDC NG SCH (07:55)
[2016-10-06] MEDS: DOCUSATE SODIUM 100 MG/10 ML UDC PO SCH ×2 (07:55→21:29)
[2016-10-06] MEDS: MULTIVITAMINS W/MINERALS 15ML UDP PO SCH (07:56)
[2016-10-06] MEDS: PANTOprazole INJ 40 MG in SYRINGE 0 ML IV SCH ×2 (07:56→21:28)
[2016-10-06] MEDS: HEPARIN SOD 5000 UNIT/0.5 ML CARP SQ SCH ×2 (07:56→21:45)
[2016-10-06] MEDS: VITAMIN B COMPLEX TAB PO SCH (07:56)
[2016-10-06] MEDS: VALPROIC ACID 250 MG/5 ML UDP NG SCH ×2 (07:57→21:31)
[2016-10-06] MEDS: FLUOXETINE HCL 20 MG/5 ML UDP PO SCH (07:57)
[2016-10-06] MEDS: GABAPENTIN 250 MG/5 ML 470 ML BTL NG SCH ×2 (07:57→21:29)
[2016-10-06] MEDS: CHOLECALCIFEROL 1000 INTER.UNIT TAB PO SCH (07:57)
[2016-10-06] MEDS: DAPTOmycin IV 650 MG in SODIUM CHLORIDE 0.9% 50ML 50 ML IV SCH (09:29)
[2016-10-06 10:51] VITALS: BP 131/77; PULSE 86; O2SAT 95
[2016-10-06 10:52] VITALS: BP 131/77; PULSE 86; O2SAT 95
[2016-10-06] MEDS: FLUCONAZOLE 200MG / NSS IV SCH (11:36)
--- NOTE | 2016-10-06 15:34 | Progress Note ---
Internal Med Progress Note Date of Service: October 06, 2016. Provider Documentation: SUBJECTIVE: Patient is seen and examined at bedside. Clinically no significant change from yesterday. Still having pain while swallowing but improving. Denies Left hip pain. Denies any chest pain, SOB, dizziness, nausea, abd pain. OBJECTIVE: Vital Signs-as noted below Physical Exam: General Appearance:Moderately built and nourished, no apparent distress Head: normocephalic, Atraumatic ENT:labial and tongue ulcerations improving Eyes: normal inspection, EOMI, PERRL Neck: supple, Trachea midline Respiratory/Chest: Normal breath sounds, CTA Cardiovascular: S1, S2, + systolic murmur Abdomen/GI:Soft, Non tender, Bowel sounds present Extremities/Musculoskelatal: Left hip in bandage, 1+ edema Neurologic/Psych:grossly no focal neurological deficits Skin: normal color, warm, desquamation of hands Lab data as noted below. ASSESSMENT & PLAN: LEFT HIP MRSA INFECTION Initially received IV vancomycin x 4 doses. Currently on daptomycin since 09/19 secondary to ATN. S/P hip irrigation 09/19 Appreciate ID help Rifampin discontinued due to elevated LFT's ID and GI recommended not restarting rifampin. Continue IV daptomycin. Needs at least 6 weeks. Day # 19 Monitor CPK levels while on Dapto: CPK:wnl Needs follow up with Ortho upon discharge Appreciate Orthopedics/ID input Encourage mobilization ALBERT/ATN Resolved multifactorial. Appreciate Nephrology input S/P Hemodialysis Perm cath placed 09/29. Cr at baseline now Removal of hemodialysis catheter:10/04 HYPOKALEMIA/HYPOMAGNESEMIA Replace and monitor Monitor ANEMIA Hgb: 7.8 today S/P 2 units PRBC's. Anemia probably multifactorial. Monitor H&H, Transfuse PRN No active bleeding Minimize Iatrogenic blood loss ENCEPHALOPATHY Secondary to infection. Resolved NUTRITION unable to take oral nutrition due to stomatitis. Advance diet as tolerated. Continue NG feedings. 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 Improving Completed IV acyclovir for total 7 days. BIPOLAR DISORDER Depakote ER has been on hold- unable to crush due for NGT. Unable to swallow pills Continue valproic acid syrup. ? DEMENTIA Discussed with patient and daughter. Had some problems with memory when receiving chemo in past, but never had tracy dementia SLEEP APNEA Continue O2. Plan to resume CPAP once NGT removed. UTI Urine culture: Shraddha. Continue fluconazole. DVT PX Heparin SQ CODE STATUS Full code DISPOSITION To be determined. Needs placement Patient and family prefer [facility] or [facility]. Manager Gas consulted Consultants: Orthopedics Nephrology Critical Care Medicine GI ID . Procedures: CT HIP: 1. 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 No evidence of fracture 3. No significant joint effusion although the examination is limited due to streak artifact 4. Partially visualized 6 cm collection within the subcutaneous tissues lateral to the left gluteal musculature. This is not possible on the basis of this study to determine whether this collection is infected or sterile. Liver ultrasound No significant abnormality identified within the right upper quadrant. Vital Signs: Date Time Temp Pulse Resp B/P Pulse Ox O2 Delivery O2 Flow Rate FiO2 10/06/16 10:52 86 19 131/77 95 Room Air 10/06/16 10:51 86 95 10/06/16 08:00 Room Air 10/06/16 07:06 37.4 78 15 169/81 96 Room Air 10/06/16 00:38 Room Air 10/05/16 23:05 36.9 76 17 150/77 96 Room Air 10/05/16 20:02 36.3 82 17 153/68 97 Room Air 10/05/16 20:00 Room Air 10/05/16 16:07 36.7 80 18 148/74 95 Room Air Lab Results: Results Past 24 Hours Test 10/06/16 05:40 Range/Units Hemoglobin 7.8 12.0-16.0 g/dL Hematocrit 24.3 37-47 % Potassium Level 3.6 3.5-5.1 mmol/L Creatinine 0.70 0.60-1.20 mg/dl Est Creatinine Clear Calc Drug Dose 83.4 ml/min Estimated GFR () 100.3 Estimated GFR (Non- 86.6 Magnesium Level 1.6 1.8-2.4 mg/dl Total Creatine Kinase 19 26-192 U/L
[2016-10-06] MEDS ORDERED: MAGNESIUM SULFATE 1GM / D5W 1 GM in PREMIXED IN D5W 100 ML IV ONE (15:45)
[2016-10-06 15:52] VITALS: BP 167/81; PULSE 79; TEMP 36.4; O2SAT 96
[2016-10-06] MEDS: FIBERSOURCE HN 1000ML BAG NG SCH ×2 (17:43)
--- NOTE | 2016-10-06 20:13 | Infectious Disease Progress Nt ---
Progress Note Date of Service October 06, 2016. Subjective Pt evaluation today including: conversation w/ patient, physical exam, chart review, lab review, review of studies, conversation w/ b[employer]talk consultant, review of inpatient medication list Odynophagia improving, less left hip pain. Remains afebrile. Continues to tolerate antibiotic without apparent difficulty. All Other Systems: Reviewed and Negative Medications Current Inpatient Medications Medications (Trade) Dose Ordered Sig/Quan Route Start Time Stop Time Status Last Admin Dose Admin Vitamin B Complex (Vitamin B Complex) 1 tab DAILY PO 09/18/16 09:00 10/18/16 08:59 10/06/16 07:56 1 TAB Acetaminophen (Tylenol Tab) 650 mg Q6H PRN PO 09/18/16 08:15 10/18/16 08:14 10/04/16 15:41 650 MG Daptomycin (Consult) 1 ea UD PRN N/A 09/19/16 08:30 10/19/16 08:29 Miconazole Nitrate 1 appln 1 appln PRN PRN EXT 09/20/16 15:15 10/20/16 15:14 10/04/16 08:09 1 APPLN Pantoprazole Sodium/Syringe (Protonix Inj/ Syringe) 10 ml @ 5 mls/min DAILY@09,21 IV 09/23/16 21:00 10/23/16 20:59 10/06/16 07:56 5 MLS/MIN Heparin Sodium (Porcine) (Heparin 10 Unit/ ml 5 ml Flush) 5 ml PRN PRN FLUSH 09/24/16 15:15 10/24/16 15:14 10/06/16 05:35 15 ML Fluoxetine HCl (Prozac Soln) 20 mg QAM PO 09/26/16 09:00 10/26/16 08:59 10/06/16 07:57 20 MG Multivitamins Therapeutic (Cerovite Liquid) 15 ml QAM PO 09/26/16 09:00 10/26/16 08:59 10/06/16 07:56 15 ML Ascorbic Acid (Vitamin C Tab) 1,000 mg QAM PO 09/26/16 09:00 10/26/16 08:59 10/06/16 07:55 1,000 MG Cholecalciferol (Vitamin D Tab) 1,000 inter.unit QAM PO 09/26/16 09:00 10/26/16 08:59 10/06/16 07:57 1,000 INTER.UNIT Docusate Sodium (coLACE SYRUP) 100 mg BID PO 09/25/16 21:00 10/25/16 20:59 10/06/16 07:55 100 MG Heparin Sodium (Porcine) 5000 unit 5,000 unit Q12 SQ 09/29/16 21:00 10/29/16 20:59 10/06/16 07:56 5,000 UNIT Lorazepam/Syringe (Ativan Inj/ Syringe) 0.5 ml @ 0.5 mls/min Q8H PRN IV 09/30/16 21:30 10/30/16 21:29 Fluconazole (Consult) 1 ea UD PRN N/A 09/30/16 21:45 10/30/16 21:44 Valproic Acid (Depakene Syrup) 250 mg BID NG 10/01/16 09:00 10/31/16 08:59 10/06/16 07:57 250 MG Gabapentin (Neurontin) 100 mg BID NG 10/01/16 09:00 10/31/16 08:59 10/06/16 07:57 100 MG Sodium Biphosphate/ Sodium Phosphate 132 ml DAILY PRN TX 10/01/16 07:00 10/31/16 06:59 10/05/16 14:47 132 ML Lidocaine HCl/ Diphenhydramine HCl/Al Hydroxide/ Mg Hydroxide/ Glycerin/Barcode (VISCOUS LIDOCAINE 2% Soln/ Benadryl Syrup/ Maalox Susp/ Glycerin Anhydrous Soln) AC MT 10/01/16 16:15 10/31/16 16:14 10/06/16 17:41 5 ML Potassium Chloride (Babs Ciel Elix) 40 meq QAM NG 10/02/16 09:00 11/01/16 08:59 10/06/16 07:55 40 MEQ Enteral Nutritional Formula 1 can 1 can BIDM PO 10/02/16 16:45 11/01/16 16:44 10/06/16 17:44 1 CAN Daptomycin 650 mg/ Sodium Chloride 63 ml @ 120 mls/hr Q24H IV 10/03/16 10:00 11/02/16 08:59 10/06/16 09:29 120 MLS/HR Fluconazole/ Sodium Chloride/ Prmx (Diflucan IV/ Premixed Nss) 100 ml @ 100 mls/hr Q24H IV 10/03/16 12:00 10/09/16 12:59 10/06/16 11:36 100 MLS/HR Enteral Nutritional Formula (Fibersource HN) 1,000 ml DAILY@1800 NG 10/06/16 18:00 11/05/16 17:59 10/06/16 17:43 1,000 ML Miscellaneous (Stop Order) 1 ea DAILY@0800 ONCE N/A 10/07/16 08:00 10/07/16 08:01 Objective Vital Signs Date Time Temp Pulse Resp B/P Pulse Ox O2 Delivery O2 Flow Rate FiO2 10/06/16 15:52 36.4 79 17 167/81 96 Room Air 10/06/16 10:52 86 19 131/77 95 Room Air 10/06/16 10:51 86 95 10/06/16 08:00 Room Air 10/06/16 07:06 37.4 78 15 169/81 96 Room Air 10/06/16 00:38 Room Air 10/05/16 23:05 36.9 76 17 150/77 96 Room Air Physical Exam General Appearance: WD/WN, no apparent distress Eyes: normal inspection, sclerae normal ENT: normal ENT inspection, + pertinent finding (Improving HSV infection) Neck: supple, no adenopathy, trachea midline Respiratory/Chest: chest non-tender, lungs clear, normal breath sounds, no respiratory distress Cardiovascular: regular rate, rhythm, no gallop, no murmur Abdomen: normal bowel sounds, non tender, soft, no organomegaly Extremities: non-tender, no calf tenderness Neurologic/Psychiatric: alert, oriented x 3 Skin: normal color, no rash, + pertinent finding (Left hip wound improving) Laboratory Results Last 24 Hours Test 10/06/16 05:40 Hemoglobin 7.8 g/dL Hematocrit 24.3 % Potassium Level 3.6 mmol/L Creatinine 0.70 mg/dl Est Creatinine Clear Calc Drug Dose 83.4 ml/min Estimated GFR () 100.3 Estimated GFR (Non- 86.6 Magnesium Level 1.6 mg/dl Total Creatine Kinase 19 U/L Assessment and Plan 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 Patient will require 6 weeks of IV antibiotics for her hip infection, and would give 7 days for her HSV infection. Will need to monitor CPK levels while on daptomycin.
[2016-10-06 20:44] VITALS: O2SAT 96
[2016-10-06 23:25] VITALS: BP 162/82; PULSE 84; TEMP 36.9; O2SAT 96
[2016-10-07 06:19] LABS: HEMATOCRIT 24.8 % (37-47)
[2016-10-07 06:41] LABS: POTASSIUM 3.8 mmol/L (3.5-5.1)
[2016-10-07 06:58] LABS: MAGNESIUM 1.6 mg/dl (1.8-2.4)
[2016-10-07 07:55] VITALS: BP 153/75; PULSE 86; TEMP 37.2; O2SAT 96
[2016-10-07] MEDS ORDERED: [UNRECOGNIZED DRUG - REMARK] ONE (08:00)
--- NOTE | 2016-10-07 08:06 | PROGRESS NOTE ---
DATE: 10/07/2016 SUBJECTIVE: A 70-year-old white female, now 2-1/2 weeks out from I\T\D of an infected hip wound after hip arthroplasty. She continues to make gradual progress. No new complaints today. Denies any hip pain. OBJECTIVE: VITAL SIGNS: Temperature 36.9. Vital signs stable. PHYSICAL EXAMINATION: GENERAL: Reveals a healthy, pleasant elderly female. She is lying in bed, looks reasonably comfortable. EXTREMITIES: Examination of the left leg reveals the dressing to be in place. She still does have a little bit of drainage on the dressing site. Hip is located. NEUROLOGIC: She is neurologically intact. LABORATORY DATA: Hemoglobin 8.0. Hematocrit 24.8. ASSESSMENT: A 70-year-old white female 2-1/2 weeks out from I\T\D of an infected left hip wound, making gradual progress. Still a little bit of drainage. PLAN: 1. IV antibiotics x6 weeks. She will continue on daptomycin. She will likely need 6 months of p.o. antibiotics afterward. 2. Medical management per medicine service. 3. DVT prophylaxis. Continue thigh-high TEDs, SCDs, and subcu heparin. Convert to aspirin once medically acceptable and okay from the renal standpoint. 4. Disposition: She will likely need a rehab stay. This will all be based on when she is ready medically. We will continue to follow her wound and perform dressing changes as needed. We will likely remove the stitches in the next several days. Any orthopedic questions can be directed to me at [phone].
[2016-10-07] MEDS: BOOST PLUS VANILLA PO SCH ×2 (08:27)
[2016-10-07] MEDS: POTASSIUM CHLORIDE 20 MEQ/15 ML UDC NG SCH (09:09)
[2016-10-07] MEDS: VALPROIC ACID 250 MG/5 ML UDP NG SCH ×2 (09:09→21:21)
[2016-10-07] MEDS: MULTIVITAMINS W/MINERALS 15ML UDP PO SCH (09:10)
[2016-10-07] MEDS: DOCUSATE SODIUM 100 MG/10 ML UDC PO SCH ×2 (09:10→22:17)
[2016-10-07] MEDS: FLUOXETINE HCL 20 MG/5 ML UDP PO SCH (09:10)
[2016-10-07] MEDS: VITAMIN B COMPLEX TAB PO SCH (09:11)
[2016-10-07] MEDS: CHOLECALCIFEROL 1000 INTER.UNIT TAB PO SCH (09:11)
[2016-10-07] MEDS: ASCORBIC ACID 500 MG TAB PO SCH (09:12)
[2016-10-07] MEDS: LIDOCAINE HCL 2% VISCOUS SOLN 60 ML, DiphenhydrAMINE HCL SYRUP 150 MG, ALUMINUM/MAGNESI... MT SCH ×12 (09:28→17:40)
[2016-10-07] MEDS: GABAPENTIN 250 MG/5 ML 470 ML BTL NG SCH ×2 (09:29→21:21)
[2016-10-07] MEDS: HEPARIN SOD 5000 UNIT/0.5 ML CARP SQ SCH ×2 (09:34→22:18)
[2016-10-07] MEDS: DAPTOmycin IV 650 MG in SODIUM CHLORIDE 0.9% 50ML 50 ML IV SCH (09:58)
[2016-10-07] MEDS: PANTOprazole INJ 40 MG in SYRINGE 0 ML IV SCH ×2 (10:19→21:20)
[2016-10-07] MEDS: FLUCONAZOLE 200MG / NSS IV SCH (12:05)
[2016-10-07] MEDS ORDERED: BOOST PLUS VANILLA PO SCH ×2 (13:45)
--- NOTE | 2016-10-07 14:40 | Progress Note ---
Internal Med Progress Note Date of Service: October 07, 2016. Provider Documentation: SUBJECTIVE: Seen and examined at bedside. Slowly improving. No new complaints. Denies any chest pain, SOB, dizziness, nausea, abd pain. Some drainage from left hip. Family at bedside. OBJECTIVE: Vital Signs-as noted below Physical Exam: General Appearance:Moderately built and nourished, no apparent distress Head: normocephalic, Atraumatic ENT:labial and tongue ulcerations improving Eyes: normal inspection, EOMI, PERRL Neck: supple, Trachea midline Respiratory/Chest: Normal breath sounds, CTA Cardiovascular: S1, S2, + systolic murmur Abdomen/GI:Soft, Non tender, Bowel sounds present Extremities/Musculoskelatal: Left hip in bandage, 1+ edema Neurologic/Psych:grossly no focal neurological deficits Skin: normal color, warm, desquamation of hands Lab data as noted below. ASSESSMENT & PLAN: LEFT HIP MRSA INFECTION Initially received IV vancomycin x 4 doses. Currently on daptomycin since 09/19 secondary to ATN. S/P hip irrigation 09/19 Appreciate ID help Rifampin discontinued due to elevated LFT's ID and GI recommended not restarting rifampin. Continue IV daptomycin. Needs at least 6 weeks. Day # 20 Monitor CPK levels while on Dapto: CPK:wnl Needs follow up with Ortho upon discharge Appreciate Orthopedics/ID input Encourage mobilization ALBERT/ATN Resolved multifactorial. Appreciate Nephrology input S/P Hemodialysis Perm cath placed 09/29. Cr at baseline now Removal of hemodialysis catheter:10/04 HYPOKALEMIA/HYPOMAGNESEMIA Replace and monitor Monitor ANEMIA Hgb: 8.0 today S/P 2 units PRBC's. Anemia probably multifactorial. Monitor H&H, Transfuse PRN No active bleeding Minimize Iatrogenic blood loss ENCEPHALOPATHY Secondary to infection. Resolved NUTRITION unable to take oral nutrition due to stomatitis. Advance diet as tolerated. Continue NG feedings. 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 Improving Completed IV acyclovir for total 7 days. BIPOLAR DISORDER Depakote ER has been on hold- unable to crush due for NGT. Unable to swallow pills Continue valproic acid syrup. ? DEMENTIA Discussed with patient and daughter. Had some problems with memory when receiving chemo in past, but never had tracy dementia SLEEP APNEA Continue O2. Plan to resume CPAP once NGT removed. UTI Urine culture: Shraddha. Continue fluconazole. DVT PX Heparin SQ CODE STATUS Full code DISPOSITION To be determined. Needs placement [facility]. [place] Attendant consulted Consultants: Orthopedics Nephrology Critical Care Medicine GI ID . Procedures: CT HIP: 1. 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 No evidence of fracture 3. No significant joint effusion although the examination is limited due to streak artifact 4. Partially visualized 6 cm collection within the subcutaneous tissues lateral to the left gluteal musculature. This is not possible on the basis of this study to determine whether this collection is infected or sterile. Liver ultrasound No significant abnormality identified within the right upper quadrant. Vital Signs: Date Time Temp Pulse Resp B/P Pulse Ox O2 Delivery O2 Flow Rate FiO2 10/07/16 12:16 Room Air 10/07/16 08:00 Room Air 10/07/16 07:55 37.2 86 16 153/75 96 Room Air 10/07/16 00:20 Room Air 10/06/16 23:25 36.9 84 18 162/82 96 Room Air 10/06/16 20:44 96 Room Air 10/06/16 15:52 36.4 79 17 167/81 96 Room Air Lab Results: Results Past 24 Hours Test 10/07/16 05:25 Range/Units Hemoglobin 8.0 12.0-16.0 g/dL Hematocrit 24.8 37-47 % Potassium Level 3.8 3.5-5.1 mmol/L Magnesium Level 1.6 1.8-2.4 mg/dl
[2016-10-07] MEDS ORDERED: MAGNESIUM CHLORIDE 64MG DELAYED REL TAB PO SCH (14:45)
[2016-10-07] MEDS ORDERED: MAGNESIUM SULFATE 1GM / D5W 1 GM in PREMIXED IN D5W 100 ML IV ONE (15:30)
[2016-10-07 16:00] VITALS: BP 160/80; PULSE 81; TEMP 37.1; O2SAT 98
[2016-10-07] MEDS: ARGININE EXTRA NUTRITION DRINK 1 BOX PO SCH (17:40)
[2016-10-07] MEDS: FIBERSOURCE HN 1000ML BAG NG SCH ×4 (18:38→19:15)
[2016-10-07 23:52] VITALS: BP 151/82; PULSE 86; TEMP 36.6; O2SAT 95
[2016-10-08 06:33] LABS: HEMATOCRIT 24.2 % (37-47); MEAN CELL VOLUME 94.5 fL (80-100); MEAN CORPUSCULAR HEMOGLOBIN 31.3 pg (25-34); MEAN CORPUSCULAR HGB CONC 33.1 g/dl (32-36); MEAN PLATELET VOLUME 9.9 fL (7.4-10.4); PLATELET COUNT 251 K/uL (130-400); RED BLOOD COUNT 2.56 M/uL (4.2-5.4); WHITE BLOOD COUNT 5.33 K/uL (4.8-10.8)
[2016-10-08 06:57] LABS: BUN/CREATININE RATIO 33.3 (10-20); CALCIUM 8.7 mg/dl (8.5-10.1); CREATININE 0.63 mg/dl (0.60-1.20); MAGNESIUM 1.5 mg/dl (1.8-2.4)
[2016-10-08 07:51] VITALS: BP 153/77; PULSE 85; TEMP 36.8; O2SAT 96
[2016-10-08] MEDS: LIDOCAINE HCL 2% VISCOUS SOLN 60 ML, DiphenhydrAMINE HCL SYRUP 150 MG, ALUMINUM/MAGNESI... MT SCH ×12 (08:35→17:30)
--- NOTE | 2016-10-08 08:38 | PROGRESS NOTE ---
DATE: 10/08/2016 SUBJECTIVE: A 70-year-old female post 2-1/2 weeks out from I\T\D of an infected total hip wound. She is continuing to make some gradual improvements. She denies any pain this morning. No chest pain. OBJECTIVE: VITAL SIGNS: Temperature is 36.8. Vital signs stable. PHYSICAL EXAMINATION: GENERAL: Reveals a pleasant elderly female. She is lying in bed and resting this morning. EXTREMITIES: Examination of left hip reveals the dressing to be in place. There is a small amount of drainage on the superior aspect for dressing. The hip is located. She is neurologically intact. LABORATORY DATA: White cell count 5.33. Hemoglobin 8.0. Hematocrit 24.2. Electrolytes are stable. Kidney function has returned with a normal creatinine. ASSESSMENT: A 70-year-old white female post 2-1/2 weeks out from I\T\D of an infected total hip wound, doing better. The patient was critically ill and making improvements. Her nutritional status is still pretty poor. Her wound is still draining a small amount, but seems to be decreasing daily. White cell count is normal. Renal function has returned. PLAN: 1. DVT prophylaxis including thigh-high TEDs, SCDs, and subq heparin. 2. PT/OT. She can weightbear as tolerated. Left total hip protocol. 3. Pain control, doing well with current pain regimen. 4. Medical management as per the medicine service. 5. Infection. We will continue with the plan of 6 weeks of daptomycin followed by oral antibiotics. 6. Wound care. We will continue dressing changes. I would like to see her wounds heal up before we take her stitches out. Hopefully, this will happen in the next couple days. 7. Disposition: She will likely need a rehab stay once medically stable.
[2016-10-08] MEDS: FLUOXETINE HCL 20 MG/5 ML UDP PO SCH (09:32)
[2016-10-08] MEDS: PANTOprazole INJ 40 MG in SYRINGE 0 ML IV SCH ×2 (09:32→19:55)
[2016-10-08] MEDS: MULTIVITAMINS W/MINERALS 15ML UDP PO SCH (09:33)
[2016-10-08] MEDS: DOCUSATE SODIUM 100 MG/10 ML UDC PO SCH ×2 (09:33→19:59)
[2016-10-08] MEDS: VALPROIC ACID 250 MG/5 ML UDP NG SCH ×2 (09:33→20:03)
[2016-10-08] MEDS: GABAPENTIN 250 MG/5 ML 470 ML BTL NG SCH ×2 (09:34→20:44)
[2016-10-08] MEDS: ARGININE EXTRA NUTRITION DRINK 1 BOX PO SCH ×2 (09:34→17:00)
[2016-10-08] MEDS: VITAMIN B COMPLEX TAB PO SCH (10:08)
[2016-10-08] MEDS: POTASSIUM CHLORIDE 20 MEQ/15 ML UDC NG SCH (10:08)
[2016-10-08] MEDS: CHOLECALCIFEROL 1000 INTER.UNIT TAB PO SCH (10:09)
[2016-10-08] MEDS: ASCORBIC ACID 500 MG TAB PO SCH (10:09)
[2016-10-08] MEDS: HEPARIN SOD 5000 UNIT/0.5 ML CARP SQ SCH ×2 (10:15→20:45)
[2016-10-08] MEDS: DAPTOmycin IV 650 MG in SODIUM CHLORIDE 0.9% 50ML 50 ML IV SCH (10:24)
[2016-10-08] MEDS: FLUCONAZOLE 200MG / NSS IV SCH (12:45)
[2016-10-08 15:22] VITALS: BP 150/77; PULSE 76; TEMP 36.9; O2SAT 100
--- NOTE | 2016-10-08 17:17 | Progress Note ---
Internal Med Progress Note Date of Service: October 08, 2016. Provider Documentation: SUBJECTIVE: Seen and examined at bedside. Slow improvement with oral intake. No new complaints. Denies any chest pain, SOB, dizziness, nausea, abd pain. Got dressing change this morning. OBJECTIVE: Vital Signs-as noted below Physical Exam: General Appearance:Moderately built and nourished, no apparent distress Head: normocephalic, Atraumatic ENT:labial and tongue ulcerations improving Eyes: normal inspection, EOMI, PERRL Neck: supple, Trachea midline Respiratory/Chest: Normal breath sounds, CTA Cardiovascular: S1, S2, + systolic murmur Abdomen/GI:Soft, Non tender, Bowel sounds present Extremities/Musculoskelatal: Left hip in bandage, 1+ edema Neurologic/Psych:grossly no focal neurological deficits Skin: normal color, warm, desquamation of hands Lab data as noted below. ASSESSMENT & PLAN: LEFT HIP MRSA INFECTION Initially received IV vancomycin x 4 doses. Currently on daptomycin since 09/19 secondary to ATN. S/P hip irrigation 09/19 Appreciate ID help Rifampin discontinued due to elevated LFT's ID and GI recommended not restarting rifampin. Continue IV daptomycin. Needs at least 6 weeks. Day # 21 Monitor CPK levels while on Dapto: CPK:wnl Needs follow up with Ortho upon discharge Appreciate Orthopedics/ID input Encourage mobilization Had dressing change today ALBERT/ATN Resolved multifactorial. Appreciate Nephrology input S/P Hemodialysis Perm cath placed 09/29. Cr at baseline now Removal of hemodialysis catheter:10/04 HYPOKALEMIA/HYPOMAGNESEMIA Replace and monitor Monitor ANEMIA Hgb: 8.0 today S/P 2 units PRBC's. Hb stable Anemia probably multifactorial. Monitor H&H, Transfuse PRN No active bleeding Minimize Iatrogenic blood loss ENCEPHALOPATHY Secondary to infection. Resolved NUTRITION unable to take oral nutrition due to stomatitis. Advance diet as tolerated. Continue NG feedings. Encourage increased oral intake Nutritional status still poor. 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 Improving Completed IV acyclovir for total 7 days. BIPOLAR DISORDER Depakote ER has been on hold- unable to crush due for NGT. Unable to swallow pills Continue valproic acid syrup. ? DEMENTIA Discussed with patient and daughter. Had some problems with memory when receiving chemo in past, but never had tracy dementia SLEEP APNEA Continue O2. Plan to resume CPAP once NGT removed. UTI Urine culture: Shraddha. Continue fluconazole to complete the course. DVT PX Heparin SQ CODE STATUS Full code DISPOSITION Needs placement Patient and family prefer [facility] or [facility]. Obstetrics Gynecology Md consulted Consultants: Orthopedics Nephrology Critical Care Medicine GI ID . Procedures: CT HIP: 1. 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 No evidence of fracture 3. No significant joint effusion although the examination is limited due to streak artifact 4. Partially visualized 6 cm collection within the subcutaneous tissues lateral to the left gluteal musculature. This is not possible on the basis of this study to determine whether this collection is infected or sterile. Liver ultrasound No significant abnormality identified within the right upper quadrant. Vital Signs: Date Time Temp Pulse Resp B/P Pulse Ox O2 Delivery O2 Flow Rate FiO2 10/08/16 15:22 36.9 76 18 150/77 100 Room Air 10/08/16 07:51 36.8 85 20 153/77 96 Room Air 10/08/16 07:20 Room Air 10/07/16 23:52 36.6 86 18 151/82 95 Room Air 10/07/16 19:28 Room Air Lab Results: Results Past 24 Hours Test 10/08/16 05:35 10/08/16 05:36 Range/Units White Blood Count 5.33 4.8-10.8 K/uL Red Blood Count 2.56 4.2-5.4 M/uL Hemoglobin 8.0 12.0-16.0 g/dL Hematocrit 24.2 37-47 % Mean Corpuscular Volume 94.5 80-100 fL Mean Corpuscular Hemoglobin 31.3 25-34 pg Mean Corpuscular Hemoglobin Concent 33.1 32-36 g/dl RDW Standard Deviation 64.4 36.4-46.3 fL RDW Coefficient of Variation 19.4 11.5-14.5 % Platelet Count 251 130-400 K/uL Mean Platelet Volume 9.9 7.4-10.4 fL Sodium Level 137 136-145 mmol/L Potassium Level 4.0 3.5-5.1 mmol/L Chloride Level 100 98-107 mmol/L Carbon Dioxide Level 32 21-32 mmol/L Anion Gap 5.0 3-11 mmol/L Blood Urea Nitrogen 21 7-18 mg/dl Creatinine 0.63 0.60-1.20 mg/dl Est Creatinine Clear Calc Drug Dose 91.5 ml/min Estimated GFR () 103.9 Estimated GFR (Non- 89.6 BUN/Creatinine Ratio 33.3 10-20 Random Glucose 122 70-99 mg/dl Calcium Level 8.7 8.5-10.1 mg/dl Magnesium Level 1.5 1.8-2.4 mg/dl Albumin 2.3 3.4-5.0 gm/dl
[2016-10-08] MEDS ORDERED: NURSING VERBAL MED ORDER ONE (18:15)
[2016-10-08] MEDS: MAGNESIUM SULFATE 1GM / D5W 1 GM in PREMIXED IN D5W 100 ML IV SCH ×2 (18:23→19:46)
[2016-10-08] MEDS: BOOST BREEZE NUTRITION DRINK 1 BOX PO SCH (19:46)
[2016-10-08] MEDS: FIBERSOURCE HN 1000ML BAG NG SCH ×2 (19:49)
[2016-10-08 22:40] VITALS: BP 127/71; PULSE 82; TEMP 37; O2SAT 95
[2016-10-09 07:16] VITALS: BP 149/75; PULSE 88; TEMP 37; O2SAT 94
[2016-10-09] MEDS: LIDOCAINE HCL 2% VISCOUS SOLN 60 ML, DiphenhydrAMINE HCL SYRUP 150 MG, ALUMINUM/MAGNESI... MT SCH ×12 (08:32→17:43)
[2016-10-09] MEDS: POTASSIUM CHLORIDE 20 MEQ/15 ML UDC NG SCH (08:33)
[2016-10-09] MEDS: MULTIVITAMINS W/MINERALS 15ML UDP PO SCH (08:33)
[2016-10-09] MEDS: PANTOprazole INJ 40 MG in SYRINGE 0 ML IV SCH (08:33)
[2016-10-09] MEDS: FLUOXETINE HCL 20 MG/5 ML UDP PO SCH (08:33)
[2016-10-09] MEDS: ASCORBIC ACID 500 MG TAB PO SCH (08:34)
[2016-10-09] MEDS: DOCUSATE SODIUM 100 MG/10 ML UDC PO SCH ×2 (08:34→20:12)
[2016-10-09] MEDS: VITAMIN B COMPLEX TAB PO SCH (08:34)
[2016-10-09] MEDS: VALPROIC ACID 250 MG/5 ML UDP NG SCH ×2 (08:34→20:13)
[2016-10-09] MEDS: BOOST BREEZE NUTRITION DRINK 1 BOX PO SCH ×2 (08:35→17:43)
[2016-10-09] MEDS: HEPARIN SOD 5000 UNIT/0.5 ML CARP SQ SCH ×2 (08:38→20:22)
--- NOTE | 2016-10-09 09:17 | PROGRESS NOTE ---
DATE: 10/09/2016 SUBJECTIVE: A 71-year-old white female now almost 3 weeks out from I\T\D of an infected left total hip wound. She is doing okay. Denies any pain. No chest pain or shortness of breath. Not feeling dizzy or lightheaded. OBJECTIVE: VITAL SIGNS: Temperature 37.0. Vital signs stable. PHYSICAL EXAMINATION: GENERAL: Reveals a pleasant elderly female. She is lying in bed, and I had to wake her this morning. EXTREMITIES: Examination of left hip reveals leg to be well aligned. Dressing is in place. There is still a little bit of drainage on the upper part of the dressing. She is neurologically intact. LABORATORY DATA: None. ASSESSMENT: A 71-year-old white female almost 3 weeks out from incision and drainage of an infected left hip wound with multiple comorbidities and problems. She is making gradual improvements. Renal function has returned. Pain is controlled. Hip is located. She is neurologically intact. Her wound is still draining a little bit of serous type fluid. PLAN: 1. DVT prophylaxis including thigh-high TEDs, SCDs, and on subQ heparin. She can be converted to aspirin twice a day when okay from the medical and renal standpoint. 2. PT/OT. She can fully weightbear on the left leg. 3. Infection. She is on daptomycin. She will need 6 weeks total of therapy of this followed by some oral antibiotics probably for 6 months. 4. Medical management as per the medicine service. 5. Disposition: She is orthopedically stable and acceptable for discharge whenever medically stable. Her prognosis still fairly guarded. She is still not eating much. We will leave that up to the medicine service as far as discharge plans.
[2016-10-09] MEDS: GABAPENTIN 250 MG/5 ML 470 ML BTL NG SCH ×2 (09:34→20:13)
[2016-10-09] MEDS: DAPTOmycin IV 650 MG in SODIUM CHLORIDE 0.9% 50ML 50 ML IV SCH (09:34)
[2016-10-09] MEDS: CHOLECALCIFEROL 1000 INTER.UNIT TAB PO SCH (09:34)
[2016-10-09] MEDS: FLUCONAZOLE 200MG / NSS IV SCH (11:41)
[2016-10-09 15:55] VITALS: BP 156/78; PULSE 78; TEMP 36.7; O2SAT 97
--- NOTE | 2016-10-09 16:14 | Progress Note ---
Internal Med Progress Note Date of Service: October 09, 2016. Provider Documentation: SUBJECTIVE: Seen and examined at bedside. Clinically no significant change from yesterday. No new complaints. Denies any chest pain, SOB, dizziness, nausea, abd pain. Tolerating PO intake gradually. OBJECTIVE: Vital Signs-as noted below Physical Exam: General Appearance:Moderately built and nourished, no apparent distress Head: normocephalic, Atraumatic ENT:labial and tongue ulcerations improving Eyes: normal inspection, EOMI, PERRL Neck: supple, Trachea midline Respiratory/Chest: Normal breath sounds, CTA Cardiovascular: S1, S2, + systolic murmur Abdomen/GI:Soft, Non tender, Bowel sounds present Extremities/Musculoskelatal: Left hip in bandage, 1+ edema Neurologic/Psych:grossly no focal neurological deficits Skin: normal color, warm, desquamation of hands Lab data as noted below. ASSESSMENT & PLAN: LEFT HIP MRSA INFECTION Initially received IV vancomycin x 4 doses. Currently on daptomycin since 09/19 secondary to ATN. S/P hip irrigation 09/19 Appreciate ID help Rifampin discontinued due to elevated LFT's ID and GI recommended not restarting rifampin. Continue IV daptomycin. Needs at least 6 weeks. Day # 22 Monitor CPK levels while on Dapto: CPK:wnl Needs follow up with Ortho upon discharge Appreciate Orthopedics/ID input Encourage mobilization Continue wound care ALBERT/ATN Resolved multifactorial. Appreciate Nephrology input S/P Hemodialysis Perm cath placed 09/29. Cr at baseline now Removal of hemodialysis catheter:10/04 HYPOKALEMIA/HYPOMAGNESEMIA Replace and monitor Monitor Continue magnesium supplements ANEMIA Hgb: 8.0 S/P 2 units PRBC's. Hb stable Anemia probably multifactorial. Monitor H&H, Transfuse PRN No active bleeding Minimize Iatrogenic blood loss ENCEPHALOPATHY Secondary to infection. Resolved NUTRITION unable to take oral nutrition due to stomatitis. Advance diet as tolerated. Continue NG feedings. Encourage increased oral intake Nutritional status still poor. 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 Improving Completed IV acyclovir for total 7 days. BIPOLAR DISORDER Depakote ER has been on hold- unable to crush due for NGT. Unable to swallow pills Continue valproic acid syrup. ? DEMENTIA Discussed with patient and daughter. Had some problems with memory when receiving chemo in past, but never had tracy dementia SLEEP APNEA Continue O2. Plan to resume CPAP once NGT removed. UTI Urine culture: Shraddha. Continue fluconazole to complete the course till 10/13/16 DVT PX Heparin SQ CODE STATUS Full code DISPOSITION Receptionist Clerk consulted Plan to discharge to [facility] once off tube feedings and Insurance approval Consultants: Orthopedics Nephrology Critical Care Medicine GI ID . Procedures: CT HIP: 1. 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 No evidence of fracture 3. No significant joint effusion although the examination is limited due to streak artifact 4. Partially visualized 6 cm collection within the subcutaneous tissues lateral to the left gluteal musculature. This is not possible on the basis of this study to determine whether this collection is infected or sterile. Liver ultrasound No significant abnormality identified within the right upper quadrant. Vital Signs: Date Time Temp Pulse Resp B/P Pulse Ox O2 Delivery O2 Flow Rate FiO2 10/09/16 15:55 36.7 78 16 156/78 97 Room Air 10/09/16 08:24 Room Air 10/09/16 07:16 37.0 88 14 149/75 94 Room Air 10/08/16 22:40 37.0 82 18 127/71 95 Room Air 10/08/16 19:40 Room Air Lab Results: Results Past 24 Hours Test 10/09/16 05:41 Range/Units Magnesium Level 1.7 1.8-2.4 mg/dl
[2016-10-09] MEDS: FIBERSOURCE HN 1000ML BAG NG SCH ×2 (19:18)
[2016-10-09] MEDS: LANSOPRAZOLE SOLUTAB 15 MG NG SCH (20:14)
[2016-10-09] MEDS: MAGNESIUM CHLORIDE 64MG DELAYED REL TAB PO SCH (20:18)
[2016-10-09] MEDS: LORAZEPAM INJ 0.5 MG in SYRINGE 0.25 ML IV PRN (20:30)
[2016-10-09 23:30] VITALS: BP 150/81; PULSE 89; TEMP 36.9; O2SAT 94
[2016-10-10 05:35] LABS: HEMATOCRIT 23.9 % (37-47)
[2016-10-10 06:03] LABS: CREATININE 0.61 mg/dl (0.60-1.20); MAGNESIUM 1.8 mg/dl (1.8-2.4)
[2016-10-10 07:28] VITALS: BP 146/84; PULSE 82; TEMP 36.9; O2SAT 96
[2016-10-10] MEDS: MAGNESIUM CHLORIDE 64MG DELAYED REL TAB PO SCH ×2 (08:17→20:49)
[2016-10-10] MEDS: LIDOCAINE HCL 2% VISCOUS SOLN 60 ML, DiphenhydrAMINE HCL SYRUP 150 MG, ALUMINUM/MAGNESI... MT SCH ×12 (08:17→17:38)
[2016-10-10] MEDS: GABAPENTIN 250 MG/5 ML 470 ML BTL NG SCH (08:17)
[2016-10-10] MEDS: MULTIVITAMINS W/MINERALS 15ML UDP PO SCH (08:18)
[2016-10-10] MEDS: LANSOPRAZOLE SOLUTAB 15 MG NG SCH (08:18)
[2016-10-10] MEDS: VITAMIN B COMPLEX TAB PO SCH (08:18)
[2016-10-10] MEDS: VALPROIC ACID 250 MG/5 ML UDP NG SCH (08:19)
[2016-10-10] MEDS: FLUOXETINE HCL 20 MG/5 ML UDP PO SCH (08:19)
[2016-10-10] MEDS: CHOLECALCIFEROL 1000 INTER.UNIT TAB PO SCH (08:20)
[2016-10-10] MEDS: DOCUSATE SODIUM 100 MG/10 ML UDC PO SCH (08:20)
[2016-10-10] MEDS: POTASSIUM CHLORIDE 20 MEQ/15 ML UDC NG SCH (08:20)
[2016-10-10] MEDS: BOOST BREEZE NUTRITION DRINK 1 BOX PO SCH ×2 (08:20→16:57)
[2016-10-10] MEDS: ASCORBIC ACID 500 MG TAB PO SCH (08:21)
--- NOTE | 2016-10-10 09:06 | PROGRESS NOTE ---
DATE: 10/10/2016 SUBJECTIVE: A 71-year-old female now 3 weeks out from I\T\D and polyethylene exchange for an infected total hip wound. She is doing okay. Denies any pain. No chest pain or shortness of breath. She is still having trouble eating. OBJECTIVE: VITAL SIGNS: Temperature 36.9. Vital signs stable. PHYSICAL EXAMINATION: EXTREMITIES: Physical examination of the left hip reveals the dressing to be in place. Still just a little bit of serous drainage. Hip is located. She is neurologically intact. LABORATORY DATA: Hemoglobin 7.9, hematocrit 23.9. ASSESSMENT: A 71-year-old female 3 weeks out from incision and drainage of an infected total hip wound with a pretty poor nutritional status. Kidney function has returned. She is medically much better. Still has a little bit of drainage from her hip. PLAN: We will continue to progress mobilization. DVT prophylaxis including thigh-high TEDs, SCDs, and convert to aspirin once off the subQ heparin. We will continue to do routine wound care. She will need 6 weeks of daptomycin. Any orthopedic questions can be directed to me at [phone].
[2016-10-10] MEDS: HEPARIN SOD 5000 UNIT/0.5 ML CARP SQ SCH (09:16)
[2016-10-10] MEDS: DAPTOmycin IV 650 MG in SODIUM CHLORIDE 0.9% 50ML 50 ML IV SCH (10:57)
[2016-10-10] MEDS: FLUCONAZOLE 200MG / NSS IV SCH (12:24)
--- NOTE | 2016-10-10 12:55 | Clinical Documentation Query ---
SELMA FERNÁNDEZ Dr. : CLINICAL DOCUMENTATION QUERY In your clinical opinion is this patient being managed for: ( X ) severe protein-calorie malnutrition ( ) Other explanation of clinical findings (Please Explain) ( ) Unable to determine (Please Define) ( ) Need to Discuss ( ) Not Agree The medical record reflects the following clinical findings, treatment, and risk factors. Clinical Indicators: 71 yo female presented with L hip infection. Initial wt 112.7, now down to 101.9 (10.8 kg wt loss) for a 9.6% wt loss over the past 3 weeks. Unable to eat due to stomatitis. Dietary note indicates pt with 31% Kcal need intake and 36% protein need intake. Progress note on 10/09 indicates nutritional status still poor. Treatment: tube feeds, oral FL diet, arginaid extra bid, 3 day calorie count, Risk Factors: stomatitis, extended illness Severe Malnutrition Criteria: (2 criteria needed) Energy intake: <50% of estimated energy requirement for > 5 days Wt loss: 1-2% in 1 wk, 5% in 1 month, or 7.5% in 3 months Body fat: moderate loss of SQ fat from the orbits, triceps or fat overlying the ribs Muscle mass: moderate muscle wasting at the temples, clavicles, shoulders, interosseous spaces, scapula, thigh, calf Fluid accumulation: moderate to severe localized or generalized edema of the extremities, vulva, scrotum-wt loss may be masked by edema Please clarify and document your clinical opinion in the progress notes and discharge summary. Terms such as "probable", "suspected", "likely", "questionable", "possible", or "still to be ruled out" are acceptable. IF IN AGREEMENT, YOU MUST DOCUMENT ABOVE DIAGNOSTIC STATEMENT IN DAILY PROGRESS NOTES AND DISCHARGE SUMMARY. This document is not part of the patient's record. Thank You, Anju Ramos, RN [phone]
--- NOTE | 2016-10-10 12:58 | Pharmacy Progress Note ---
Pharmacy Abx Dose Short Note Date of Service October 10, 2016. Assessment & Plan Confirmed Diflucan doesn't interact with tube feeds. Will initiate Diflucan 200mg NG Daily. No renal adjustment necessary. Pharmacy will continue to follow and will adjust dose/frequency as necessary. Thank you.
[2016-10-10] MEDS ORDERED: NURSING VERBAL MED ORDER ONE (15:15)
[2016-10-10 15:25] VITALS: BP 138/78; PULSE 80; TEMP 36.7; O2SAT 100
--- NOTE | 2016-10-10 15:28 | Progress Note ---
Internal Med Progress Note Date of Service: October 10, 2016. Provider Documentation: SUBJECTIVE: Seen and examined at bedside. States feeling well. NG tube discontinued. Staff noticed Cola colored urine and bleeding from Kaur catheter site. Patient denies any urinary symptoms. Denies any chest pain, SOB, dizziness, nausea, abd pain. Tolerating PO intake gradually. Some drainage noted on left hip surgical site. OBJECTIVE: Vital Signs-as noted below Physical Exam: General Appearance:Moderately built and nourished, no apparent distress Head: normocephalic, Atraumatic ENT:labial and tongue ulcerations improving Eyes: normal inspection, EOMI, PERRL Neck: supple, Trachea midline Respiratory/Chest: Normal breath sounds, CTA Cardiovascular: S1, S2, + systolic murmur Abdomen/GI:Soft, Non tender, Bowel sounds present Extremities/Musculoskelatal: Left hip in bandage, 1+ edema Neurologic/Psych:grossly no focal neurological deficits Skin: normal color, warm, desquamation of hands Lab data as noted below. ASSESSMENT & PLAN: LEFT HIP MRSA INFECTION Initially received IV vancomycin x 4 doses. Currently on daptomycin since 09/19 secondary to ATN. S/P hip irrigation 09/19 Appreciate ID help Rifampin discontinued due to elevated LFT's ID and GI recommended not restarting rifampin. Continue IV daptomycin. Needs at least 6 weeks. Day # 23 Monitor CPK levels while on Dapto: CPK:wnl Needs follow up with Ortho upon discharge Appreciate Orthopedics/ID input Encourage mobilization Continue wound care ? HEMATURIA Possibly traumatic from kaur Will consult Urology Monitor H&H Hold Heparin for now Check UA ALBERT/ATN Resolved multifactorial. Appreciate Nephrology input S/P Hemodialysis Perm cath placed 09/29. Cr at baseline now Removal of hemodialysis catheter:10/04 HYPOKALEMIA/HYPOMAGNESEMIA Replace and monitor Monitor Continue magnesium supplements ANEMIA Hgb: around 8.0 S/P 2 units PRBC's. Hb stable Anemia probably multifactorial. Monitor H&H, Transfuse PRN ENCEPHALOPATHY Secondary to infection. Resolved SEVERE PROTEIN-CALORIE MALNUTRITION unable to take oral nutrition due to stomatitis. Advance diet as tolerated. NG feedings discontinued today Encourage increased oral intake Nutritional status still poor. 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 Completed IV acyclovir for total 7 days. Improved BIPOLAR DISORDER Depakote ER has been on hold- unable to crush due for NGT. Unable to swallow pills Continue valproic acid syrup. ? DEMENTIA Discussed with patient and daughter. Had some problems with memory when receiving chemo in past, but never had tracy dementia SLEEP APNEA Continue O2. Plan to resume CPAP once NGT removed. UTI Urine culture: Shraddha. Continue fluconazole to complete the course till 10/13/16 DVT PX Heparin SQ>> Held while ruling out Hematuria SCDs CODE STATUS Full code DISPOSITION Construction Electrician consulted Plan to discharge to [facility] once off tube feedings and Insurance approval Consultants: Orthopedics Nephrology Critical Care Medicine GI ID . Procedures: CT HIP: 1. 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 No evidence of fracture 3. No significant joint effusion although the examination is limited due to streak artifact 4. Partially visualized 6 cm collection within the subcutaneous tissues lateral to the left gluteal musculature. This is not possible on the basis of this study to determine whether this collection is infected or sterile. Liver ultrasound No significant abnormality identified within the right upper quadrant. Vital Signs: Date Time Temp Pulse Resp B/P Pulse Ox O2 Delivery O2 Flow Rate FiO2 10/10/16 15:25 36.7 80 16 138/78 100 Room Air 10/10/16 07:28 36.9 82 19 146/84 96 Room Air 10/10/16 07:20 Room Air 10/09/16 23:30 36.9 89 16 150/81 94 Room Air 10/09/16 19:18 Room Air Lab Results: Results Past 24 Hours Test 10/10/16 05:00 Range/Units Hemoglobin 7.9 12.0-16.0 g/dL Hematocrit 23.9 37-47 % Creatinine 0.61 0.60-1.20 mg/dl Est Creatinine Clear Calc Drug Dose 94.1 ml/min Estimated GFR () 104.2 Estimated GFR (Non- 89.9 Magnesium Level 1.8 1.8-2.4 mg/dl
[2016-10-10 16:30] VITALS: O2SAT 100
[2016-10-10 17:22] LABS: URINE APPEARANCE CLEAR (CLEAR); URINE BILIRUBIN NEG (NEG); URINE COLOR YELLOW; URINE EPITHELIAL CELL AUTO >30 /lpf (0-5); URINE NITRITE NEG (NEG); URINE SPECIFIC GRAVITY 1.006 (1.000-1.030); UROBILINOGEN NEG (NEG); ZZURINE CULT IF INDIC CATH YES
[2016-10-10 17:26] LABS: MANUAL MICROSCOPIC REQUIRED? NO; REVIEW REQ? YES
--- NOTE | 2016-10-10 18:42 | Urology Consultation ---
History General Date of Service: October 10, 2016. Chief Complaint: genital bleeding Primary Care Physician: Jose M Seth MD Pt seen a urologist before?: No History of Present Illness I am asked by Dr Draper to evaluate and treat the patient for genital bleeding. It started today. She has no pain. She has no idea whether it is urethral or vaginal in origin. She has occasional hemorrhoidal bleeding at home but none recently. She has h/o endometrial cancer with TAHBSO followed by pelvic XRT ending may 2013. She is believed to be JUDY. She has a Kaur since her surgery. She reports urinary incontinence and urgency of urination at home but no gross hematuria. She is admitted with an infected left hip replacement complicated by acute renal failure and was briefly on dialysis this admission. She is recovering. Imaging Imaging: CT Laboratory Results Past 24 Hours Test 10/10/16 05:00 10/10/16 17:05 Range/Units Hemoglobin 7.9 12.0-16.0 g/dL Hematocrit 23.9 37-47 % Creatinine 0.61 0.60-1.20 mg/dl Est Creatinine Clear Calc Drug Dose 94.1 ml/min Estimated GFR () 104.2 Estimated GFR (Non- 89.9 Magnesium Level 1.8 1.8-2.4 mg/dl Urine Color YELLOW Urine Appearance CLEAR CLEAR Urine pH 8.0 4.5-7.5 Urine Specific [place] 1.006 1.000-1.030 Urine Protein NEG NEG Urine Glucose (UA) NEG NEG Urine Ketones NEG NEG Urine Occult Blood 3+ NEG Urine Nitrite NEG NEG Urine Bilirubin NEG NEG Urine Urobilinogen NEG NEG Urine Leukocyte Esterase MODERATE NEG Urine WBC (Auto) 10-30 0-5 /hpf Urine RBC (Auto) 5-10 0-4 /hpf Urine Hyaline Casts (Auto) 5-10 0-5 /lpf Urine Epithelial Cells (Auto) >30 0-5 /lpf Urine Bacteria (Auto) NEG NEG Urine Renal Epithelial Cells 0-5 0-5 /lpf Urine Pathogenic Casts 0 /lpf Urine Yeast (Auto) PRESENT NONE PRSENT Microbiology Results 10/10/16 Urine Culture, Received Pending Labs were reviewed and are within normal limits unless listed below. Labs are available in the chart and at [facility] Problem List Medical Problems: (1) Abdominal pain Status: Acute (2) Anemia Status: Chronic (3) Anxiety Status: Chronic (4) Bipolar disorder Status: Chronic (5) Dementia Status: Chronic (6) Diastolic dysfunction Permanent Comment: echo 05/2015 - EF 55-60%, grade II diastolic dysfunction Status: Chronic (7) Facial cellulitis Status: Acute (8) Facial cellulitis Status: Acute (9) Gastroesophageal reflux disease Status: Chronic (10) GERD (gastroesophageal reflux disease) Status: Acute (11) Nocturnal hypoxemia Status: Chronic (12) OCD (obsessive compulsive disorder) Status: Chronic (13) JOO on CPAP Status: Chronic (14) Spinal stenosis Status: Chronic Social History Problems: (1) History of total left hip arthroplasty Status: Acute Past History anxiety, arthritis, bipolar disorder, cancer, dementia, GERD, radiation treatment, renal disease Past Surgical History: cholecystectomy, hysterectomy, oophorectomy, THR, TKR, tubal ligation Family History Heart disease MOTHER Social History Hx Tobacco Use In Past Year?: No Smoking: non-smoker Alcohol: never Drug use: none Marital status: single Housing status: lives with family Occupation status: unemployed Immunizations History of Influenza Vaccine: Yes Influenza Vaccine Date: Feb 10, 2016 History of Tetanus Vaccine?: Yes Tetanus Immunization Date: Aug 12, 2010 History of Pneumococcal: Yes Pneumococcal Date: Jun 30, 2014 History of MDRO Yes Type of MDRO: MRSA Allergies Coded Allergies: Adhesives (Verified Allergy, Unknown, ADHESIVE TAPE -- BLISTERS, 09/17/16) Cetirizine (Verified Allergy, Unknown, SORES IN MOUTH, HEAD CONGESTION, ) Dicloxacillin (Unverified Allergy, Unknown, MOUTH SORE, 09/17/16) Erythromycin (Verified Allergy, Unknown, SORES IN MOUTH, 09/17/16) Tetracycline (Verified Adverse Reaction, Intermediate, NAUSEA, 09/17/16) Codeine (Verified Adverse Reaction, Mild, NAUSEA, 09/17/16) Doxycycline (Verified Adverse Reaction, Mild, NAUSEA, 09/17/16) Morphine (Verified Adverse Reaction, Unknown, "MAKES ME FEEL LOOPY", ) Rifampin (Verified Adverse Reaction, Unknown, elevated LFT's, 10/03/16) Medications Home Medications: Home Meds and Scripts Medications Dose Route/Sig Max Daily Dose Days Date Category Dose Instructions Enema (Sodium Phosphates) 1 Maria E Maria E 1 Ea [place] DAILY PRN 09/17/16 Reported Dulcolax (Bisacodyl) 10 Mg Sup 1 Supp IL DAILY PRN 09/17/16 Reported Milk of Magnesia (Magnesium Hydroxide) 30 Ml Susp 30 Ml PO DAILY PRN 09/17/16 Reported Prune Juice (Prune) Liqd 1 Dose PO DAILY PRN 09/17/16 Reported Benefiber (Wheat Dextrin) 1 Pow Pow 1 Dose PO DAILY PRN 09/17/16 Reported Dynapen (Dicloxacillin Sodium) 500 Mg Cap 500 Mg PO QID 10 09/17/16 Reported Aspirin 325 Mg Ectab 325 Mg PO BID 45 09/03/16 Rx Take to prevent blood clots. Tylenol Extra Strength (Acetaminophen) 500 Mg Tab 1,000 Mg PO Q8 30 09/03/16 Rx Take 3 times per day to lessen pain. Oxycodone HCl 5 Mg Tab 5 Mg PO Q4H PRN 30 09/03/16 Rx Take as needed for Pain. Ferrous Gluconate 324 Mg Tab 324 Mg PO BIDM 30 09/03/16 Rx Stool Softener (Sennosides-Docusate Sodium) 1 Tab Tab 1 Tab PO DAILY PRN 09/02/16 Reported B Complex (B-Complex W/ Folic Acid) 1 Tab Tab 1 Tab PO DAILY 09/02/16 Reported Biotin Forte (Biotin) 3 Mg Tab 3 Mg PO DAILY 09/02/16 Reported Depakote Er (Divalproex Sodium) 500 Mg Tab 1,000 Mg PO HS 30 09/02/16 Reported Tums (Calcium Carbonate) 500 Mg Chew 1 Tab PO BID PRN 02/29/16 Reported [place] Nasal [place] (Saline) 0.65 % Spr 2 [place] CAROL DAILY PRN 02/29/16 Reported Zofran Odt (Ondansetron HCl) 4 Mg Tab 4 Mg SL Q6H PRN 02/29/16 Reported Neurontin (Gabapentin) 100 Mg Cap 500 Mg PO TID 02/29/16 Reported Donepezil Hcl (Donepezil Hydrochloride) 10 Mg Tab 1 Tab PO QAM 02/29/16 Reported Protonix (Pantoprazole Sodium) 40 Mg Tab 40 Mg PO QAM 12/12/15 Reported Galzin (Zinc Acetate (Oral)) 25 Mg Cap 25 Mg PO QAM 07/27/15 Reported Imodium (Loperamide HCl) 2 Mg Cap 2 Mg PO DIRECTED PRN 02/04/15 Reported Oxygen Gas 2 Liters NA HS 05/29/14 Reported Prozac (Fluoxetine HCl) 20 Mg Cap 20 Mg PO QAM 10/13/12 Reported Ativan (Lorazepam) 1 Mg Tab 1 Mg PO BID PRN 02/20/12 Reported Vitamin D 1000 Unit (Cholecalciferol) 1,000 Unit Cap 4,000 Inter.unit PO QAM 01/06/12 Reported Inpatient Medications: Current Inpatient Medications Medications (Trade) Dose Ordered Sig/Quan Route Start Time Stop Time Status Last Admin Dose Admin Vitamin B Complex (Vitamin B Complex) 1 tab DAILY PO 09/18/16 09:00 10/18/16 08:59 10/10/16 08:18 1 TAB Acetaminophen (Tylenol Tab) 650 mg Q6H PRN PO 09/18/16 08:15 10/18/16 08:14 10/04/16 15:41 650 MG Daptomycin (Consult) 1 ea UD PRN N/A 09/19/16 08:30 10/19/16 08:29 Miconazole Nitrate (Desenex Powder) 1 appln PRN PRN EXT 09/20/16 15:15 10/20/16 15:14 10/04/16 08:09 1 APPLN Heparin Sodium (Porcine) (Heparin 10 Unit/ ml 5 ml Flush) 5 ml PRN PRN FLUSH 09/24/16 15:15 10/24/16 15:14 10/10/16 14:32 5 ML Fluoxetine HCl (Prozac Soln) 20 mg QAM PO 09/26/16 09:00 10/26/16 08:59 10/10/16 08:19 20 MG Multivitamins Therapeutic (Cerovite Liquid) 15 ml QAM PO 09/26/16 09:00 10/26/16 08:59 10/10/16 08:18 15 ML Ascorbic Acid (Vitamin C Tab) 1,000 mg QAM PO 09/26/16 09:00 10/26/16 08:59 10/10/16 08:21 1,000 MG Cholecalciferol (Vitamin D Tab) 1,000 inter.unit QAM PO 09/26/16 09:00 10/26/16 08:59 10/10/16 08:20 1,000 INTER.UNIT Docusate Sodium (coLACE SYRUP) 100 mg BID PO 09/25/16 21:00 10/25/16 20:59 10/10/16 08:20 100 MG Heparin Sodium (Porcine) 5000 unit 5,000 unit Q12 SQ 09/29/16 21:00 10/29/16 20:59 Future Hold 10/10/16 09:16 5,000 UNIT Lorazepam/Syringe (Ativan Inj/ Syringe) 0.5 ml @ 0.5 mls/min Q8H PRN IV 09/30/16 21:30 10/30/16 21:29 10/09/16 20:30 0.5 MLS/MIN Fluconazole (Consult) 1 ea UD PRN N/A 09/30/16 21:45 10/13/16 23:59 Valproic Acid (Depakene Syrup) 250 mg BID NG 10/01/16 09:00 10/11/16 09:01 10/10/16 08:19 250 MG Gabapentin (Neurontin) 100 mg BID NG 10/01/16 09:00 10/11/16 09:01 10/10/16 08:17 100 MG Sodium Biphosphate/ Sodium Phosphate 132 ml DAILY PRN IL 10/01/16 07:00 10/31/16 06:59 10/05/16 14:47 132 ML Lidocaine HCl 60 ml/ Diphenhydramine HCl 150 mg/Al Hydroxide/Mg Hydroxide 60 ml/ Glycerin 60 ml/ Barcode 1 ea AC MT 10/01/16 16:15 10/31/16 16:14 10/10/16 17:38 5 ML Daptomycin/Sodium Chloride (Cubicin IV/Nss 50ml) 63 ml @ 120 mls/hr Q24H IV 10/03/16 10:00 11/02/16 08:59 10/10/16 10:57 120 MLS/HR Enteral Nutritional Formula (Boost Breeze Nutritional Drink) 1 box BID17 PO 10/08/16 19:00 11/07/16 18:59 10/10/16 16:57 1 BOX Lansoprazole (Prevacid Solutab) 15 mg BID NG 10/09/16 21:00 10/23/16 20:59 10/10/16 08:18 15 MG Magnesium Chloride (Slow-Mag Tab) 64 mg BID PO 10/09/16 21:00 11/08/16 20:59 10/10/16 08:17 64 MG Fluconazole (Diflucan Susp) 200 mg DAILY@1200 NG 10/11/16 12:00 10/13/16 11:59 Potassium Chloride (Babs Ciel Elix) 40 meq QAM PO 10/11/16 09:00 11/01/16 08:59 Valproic Acid (Depakene Syrup) 250 mg BID PO 10/11/16 21:00 11/10/16 20:59 Gabapentin (Neurontin) 100 mg BID PO 10/11/16 21:00 11/10/16 20:59 Review of Systems Review of Systems Constitutional: + chills, + fever Eyes: No blurred vision Neurological: + dizzy, No seizures Endocrine: + excessive thirst, + tired/sluggish Gastrointestinal: No abdominal pain, No constipation, No indigestion, No nausea , No vomiting Cardiovascular: No chest pain, No palpitations, No swelling ankles/feet Respiratory: No chronic cough, No shortness of breath Female : + abnormal vaginal bleeding, + infections, + leaking urine Physical Exam Vital Signs: Vital Signs Past 12 Hours Date Time Temp Pulse Resp B/P Pulse Ox O2 Delivery O2 Flow Rate FiO2 10/10/16 15:25 36.7 80 16 138/78 100 Room Air 10/10/16 07:28 36.9 82 19 146/84 96 Room Air 10/10/16 07:20 Room Air Physical Exam: General Appearance: WD/WN, no apparent distress, + obese Eyes: bilateral eyes normal inspection ENT: hearing grossly normal Neck: supple, no adenopathy, no JVD, trachea midline Respiratory/Chest: no respiratory distress, no accessory muscle use Gastrointestinal: Abdomen: normal abdomen Incision: normal incision Bladder: normal bladder Renal: normal renal Hernia: absent hernia Liver: normal liver Spleen: normal spleen Genitourinary - Female: External Genitalia: normal external genitalia, pertinent finding (her left hip cannot adduct and the knee cannot bend so the vaginal exam is limited) Urethral Meatus: normal urethral meatus, pertinent finding ([address] draining cloudy yellow urine free of any blood. ) Urethra: normal urethra Bladder: normal bladder Vagina: normal vagina, pertinent finding (gross blood per vagina) Extremities: non-tender, normal inspection, no calf tenderness, normal capillary refill, + pedal edema Neurologic/Psychiatric: alert, normal mood/affect, oriented x 3 Skin: normal color, warm/dry, no rash Assessment & Plan Assessment & Plan vaginal bleeding nothing significant on the ct scan at admission to suggest metastatic disease. May simply be radiation injury with bleeding. I suggest a gynecology exam as an outpatient once discharged. I suggest kaur be removed now.
[2016-10-10 20:06] VITALS: BP 145/78; PULSE 90; TEMP 36.5; O2SAT 99
[2016-10-10 21:18] LABS: HEMATOCRIT 23.8 % (37-47)
[2016-10-10] MEDS: DOCUSATE SODIUM 100 MG CAP PO SCH (21:39)
[2016-10-10] MEDS: PANTOprazole SOD 40 MG TAB PO SCH (21:40)
[2016-10-10] MEDS: DIVALPROEX SODIUM 250 MG DELAY REL TAB PO SCH (22:31)
[2016-10-10] MEDS: GABAPENTIN 100 MG CAP PO SCH (22:32)
[2016-10-10] MEDS: LORAZEPAM INJ 0.5 MG in SYRINGE 0.25 ML IV PRN (22:32)
[2016-10-10 23:11] VITALS: BP 124/68; PULSE 85; TEMP 36.6; O2SAT 98
[2016-10-11 05:43] LABS: BASO % 0.9 %; BASO ABS # 0.05 K/uL (0-0.2); EOS % 4.4 %; HEMATOCRIT 23.5 % (37-47); IG% 0.2 %; LYMPH ABS # 1.86 K/uL (1.2-3.4); MEAN CELL VOLUME 95.5 fL (80-100); MEAN CORPUSCULAR HEMOGLOBIN 31.3 pg (25-34); MEAN CORPUSCULAR HGB CONC 32.8 g/dl (32-36); MEAN PLATELET VOLUME 9.9 fL (7.4-10.4); MONO % 11.3 %; NEUT % 50.2 %; PLATELET COUNT 280 K/uL (130-400); RED BLOOD COUNT 2.46 M/uL (4.2-5.4); WHITE BLOOD COUNT 5.64 K/uL (4.8-10.8)
[2016-10-11 06:11] LABS: ANISOCYTOSIS PRESENT; COMPLETE YES; HYPERSEGMENTED POLYS 1+; STOMATOCYTE 1+
[2016-10-11 06:17] LABS: BUN/CREATININE RATIO 27.6 (10-20); CREATININE 0.6 mg/dl (0.60-1.20); POTASSIUM 4.2 mmol/L (3.5-5.1)
[2016-10-11 07:27] VITALS: BP 153/68; PULSE 86; TEMP 37.1; O2SAT 97
[2016-10-11] MEDS: LIDOCAINE HCL 2% VISCOUS SOLN 60 ML, DiphenhydrAMINE HCL SYRUP 150 MG, ALUMINUM/MAGNESI... MT SCH ×12 (08:42→17:15)
[2016-10-11] MEDS: BOOST BREEZE NUTRITION DRINK 1 BOX PO SCH ×2 (08:43→17:50)
[2016-10-11] MEDS: DOCUSATE SODIUM 100 MG CAP PO SCH ×2 (08:43→21:09)
[2016-10-11] MEDS: MICONAZOLE NITRATE POWDER 43 GM EXT PRN (08:43)
[2016-10-11] MEDS: DIVALPROEX SODIUM 250 MG DELAY REL TAB PO SCH ×2 (08:44→21:10)
[2016-10-11] MEDS: GABAPENTIN 100 MG CAP PO SCH ×2 (08:44→21:09)
[2016-10-11] MEDS: CEROVITE ADV FORMULA TAB PO SCH (08:44)
[2016-10-11] MEDS: PANTOprazole SOD 40 MG TAB PO SCH ×2 (08:45→21:09)
[2016-10-11] MEDS: FLUOXETINE HCL 20 MG CAP PO SCH (08:45)
[2016-10-11] MEDS: MAGNESIUM CHLORIDE 64MG DELAYED REL TAB PO SCH ×2 (08:47→21:11)
[2016-10-11] MEDS: ASCORBIC ACID 500 MG TAB PO SCH (08:47)
[2016-10-11] MEDS: VITAMIN B COMPLEX TAB PO SCH (08:47)
[2016-10-11] MEDS: CHOLECALCIFEROL 1000 INTER.UNIT TAB PO SCH (08:47)
[2016-10-11] MEDS ORDERED: POTASSIUM CHLORIDE 20 MEQ/15 ML UDC PO SCH (09:00)
[2016-10-11] MEDS: DAPTOmycin IV 650 MG in SODIUM CHLORIDE 0.9% 50ML 50 ML IV SCH (10:33)
[2016-10-11] MEDS ORDERED: FLUCONAZOLE 100 MG TAB PO SCH (12:00)
[2016-10-11] MEDS ORDERED: FLUCONAZOLE SUSP 40 MG/ML 35 ML NG SCH (12:00)
--- NOTE | 2016-10-11 13:13 | Progress Note ---
Internal Med Progress Note Date of Service: October 11, 2016. Provider Documentation: SUBJECTIVE: Patient is doing better. Denies any c/o pain at surgical site, fever, chills, abdominal pain, chest pain , SOB Tolerating PO - softer food with no dentures OBJECTIVE: Vital Signs-as noted below Exam: General Appearance:Moderately built and nourished, no apparent distress ENT:labial and tongue ulcerations improved Neck: supple Respiratory/Chest: Decreased breath sounds, No wheezing, crackles Cardiovascular: S1, S2, + systolic murmur Extremities/Musculoskelatal: Left hip in bandage, 1+ edema Skin: normal color, warm, desquamation of hands Lab data as noted below. ASSESSMENT & PLAN: ASSESSMENT & PLAN : LEFT HIP MRSA INFECTION : Initially received IV vancomycin x 4 doses. Rifampin discontinued due to elevated LFT's Currently on daptomycin since 09/19 secondary to ATN- to be continued for total 6 weeks (Day # 24) S/P hip irrigation 09/19 -ID and GI on board -Monitor CPK levels while on Dapto: CPK:wnl -Needs follow up with Ortho upon discharge -Encourage mobilization -Continue wound care ??? HEMATURIA Possibly traumatic from kaur Urology was consulted and this is likely vaginal bleeding and not true Hematuria. Patient does have hx of endometrial carcinoma -Recommend follow up with [facility] outpatient after discharge -Heparin held ALBERT/ATN- Resolved multifactorial. S/P Hemodialysis . Perm cath placed 09/29. Removal of hemodialysis catheter:10/04 -Monitor HYPOKALEMIA/HYPOMAGNESEMIA Resolved -Continue magnesium supplements ANEMIA Hgb: around 8.0 -S/P 2 units PRBC's. -Hb stable -Anemia probably multifactorial. -Monitor H&H, Transfuse PRN ENCEPHALOPATHY- Resolved Secondary to infection SEVERE PROTEIN-CALORIE MALNUTRITION Unable to take oral nutrition due to stomatitis. Advance diet as tolerated. 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 -Completed IV acyclovir for total 7 days. BIPOLAR DISORDER Restart depakote ER as able to swallow pills now ? DEMENTIA Discussed with patient and daughter. Had some problems with memory when receiving chemo in past, but never had tracy dementia SLEEP APNEA -Continue O2. -Resume CPAP today as NG tube removed UTI Urine culture: Shraddha. -Continue fluconazole to complete the course till 10/13/16 DVT PX Heparin SQ>> Held due to some bleeding- ? hematuria, seems more likely to be vaginal SCDs CODE STATUS Full code DISPOSITION -Meter Tester consulted -Plan to discharge to [facility] in 1-2 days Vital Signs: Date Time Temp Pulse Resp B/P Pulse Ox O2 Delivery O2 Flow Rate FiO2 10/11/16 08:30 Room Air 10/11/16 07:27 37.1 86 17 153/68 97 Room Air 10/10/16 23:25 Room Air 10/10/16 23:11 36.6 85 16 124/68 98 Room Air 10/10/16 20:06 36.5 90 16 145/78 99 Room Air 10/10/16 16:30 100 Room Air 10/10/16 15:25 36.7 80 16 138/78 100 Room Air Lab Results: Results Past 24 Hours Test 10/10/16 17:05 10/11/16 05:05 Range/Units Urine Color YELLOW Urine Appearance CLEAR CLEAR Urine pH 8.0 4.5-7.5 Urine Specific [place] 1.006 1.000-1.030 Urine Protein NEG NEG Urine Glucose (UA) NEG NEG Urine Ketones NEG NEG Urine Occult Blood 3+ NEG Urine Nitrite NEG NEG Urine Bilirubin NEG NEG Urine Urobilinogen NEG NEG Urine Leukocyte Esterase MODERATE NEG Urine WBC (Auto) 10-30 0-5 /hpf Urine RBC (Auto) 5-10 0-4 /hpf Urine Hyaline Casts (Auto) 5-10 0-5 /lpf Urine Epithelial Cells (Auto) >30 0-5 /lpf Urine Bacteria (Auto) NEG NEG Urine Renal Epithelial Cells 0-5 0-5 /lpf Urine Pathogenic Casts 0 /lpf Urine Yeast (Auto) PRESENT NONE PRSENT White Blood Count 5.64 4.8-10.8 K/uL Red Blood Count 2.46 4.2-5.4 M/uL Hemoglobin 7.7 12.0-16.0 g/dL Hematocrit 23.5 37-47 % Mean Corpuscular Volume 95.5 80-100 fL Mean Corpuscular Hemoglobin 31.3 25-34 pg Mean Corpuscular Hemoglobin Concent 32.8 32-36 g/dl Platelet Count 280 130-400 K/uL Mean Platelet Volume 9.9 7.4-10.4 fL Neutrophils (%) (Auto) 50.2 % Lymphocytes (%) (Auto) 33.0 % Monocytes (%) (Auto) 11.3 % Eosinophils (%) (Auto) 4.4 % Basophils (%) (Auto) 0.9 % Neutrophils # (Auto) 2.83 1.4-6.5 K/uL Lymphocytes # (Auto) 1.86 1.2-3.4 K/uL Monocytes # (Auto) 0.64 0.11-0.59 K/uL Eosinophils # (Auto) 0.25 0-0.5 K/uL Basophils # (Auto) 0.05 0-0.2 K/uL RDW Standard Deviation 70.4 36.4-46.3 fL RDW Coefficient of Variation 20.4 11.5-14.5 % Immature Granulocyte % (Auto) 0.2 % Immature Granulocyte # (Auto) 0.01 0.00-0.02 K/uL Hypersegmented Polys 1+ Anisocytosis PRESENT Stomatocytes 1+ Sodium Level 137 136-145 mmol/L Potassium Level 4.2 3.5-5.1 mmol/L Chloride Level 100 98-107 mmol/L Carbon Dioxide Level 31 21-32 mmol/L Anion Gap 6.0 3-11 mmol/L Blood Urea Nitrogen 17 7-18 mg/dl Creatinine 0.60 0.60-1.20 mg/dl Est Creatinine Clear Calc Drug Dose 95.2 ml/min Estimated GFR () 104.8 Estimated GFR (Non- 90.4 BUN/Creatinine Ratio 27.6 10-20 Random Glucose 94 70-99 mg/dl Calcium Level 9.0 8.5-10.1 mg/dl Microbiology Results 10/10/16 Urine Culture - Preliminary, Resulted Shraddha Albicans
--- NOTE | 2016-10-11 14:45 | Infectious Disease Progress Nt ---
Progress Note Date of Service October 11, 2016. Subjective Pt evaluation today including: conversation w/ patient, physical exam, chart review, lab review, review of studies, conversation w/ library sales consultant, review of inpatient medication list Patient offering no new complaints today. Remains afebrile. Tolerating daptomycin without apparent difficulty. No significant hip pain. All Other Systems: Reviewed and Negative Medications Current Inpatient Medications Medications (Trade) Dose Ordered Sig/Quan Route Start Time Stop Time Status Last Admin Dose Admin Vitamin B Complex (Vitamin B Complex) 1 tab DAILY PO 09/18/16 09:00 10/18/16 08:59 10/11/16 08:47 1 TAB Acetaminophen (Tylenol Tab) 650 mg Q6H PRN PO 09/18/16 08:15 10/18/16 08:14 10/04/16 15:41 650 MG Daptomycin (Consult) 1 ea UD PRN N/A 09/19/16 08:30 10/19/16 08:29 Miconazole Nitrate (Desenex Powder) 1 appln PRN PRN EXT 09/20/16 15:15 10/20/16 15:14 10/11/16 08:43 1 APPLN Heparin Sodium (Porcine) (Heparin 10 Unit/ ml 5 ml Flush) 5 ml PRN PRN FLUSH 09/24/16 15:15 10/24/16 15:14 10/11/16 12:26 5 ML Ascorbic Acid (Vitamin C Tab) 1,000 mg QAM PO 09/26/16 09:00 10/26/16 08:59 10/11/16 08:47 1,000 MG Cholecalciferol (Vitamin D Tab) 1,000 inter.unit QAM PO 09/26/16 09:00 10/26/16 08:59 10/11/16 08:47 1,000 INTER.UNIT Heparin Sodium (Porcine) 5000 unit 5,000 unit Q12 SQ 09/29/16 21:00 10/29/16 20:59 Future Hold 10/10/16 09:16 5,000 UNIT Lorazepam/Syringe (Ativan Inj/ Syringe) 0.5 ml @ 0.5 mls/min Q8H PRN IV 09/30/16 21:30 10/30/16 21:29 10/10/16 22:32 0.5 MLS/MIN Fluconazole (Consult) 1 ea UD PRN N/A 09/30/16 21:45 10/13/16 23:59 Sodium Biphosphate/ Sodium Phosphate 132 ml DAILY PRN AL 10/01/16 07:00 10/31/16 06:59 10/05/16 14:47 132 ML Lidocaine HCl 60 ml/ Diphenhydramine HCl 150 mg/Al Hydroxide/Mg Hydroxide 60 ml/ Glycerin 60 ml/ Barcode 1 ea AC MT 10/01/16 16:15 10/31/16 16:14 10/11/16 12:26 5 ML Daptomycin/Sodium Chloride (Cubicin IV/Nss 50ml) 63 ml @ 120 mls/hr Q24H IV 10/03/16 10:00 11/02/16 08:59 10/11/16 10:33 120 MLS/HR Enteral Nutritional Formula (Boost Breeze Nutritional Drink) 1 box BID17 PO 10/08/16 19:00 11/07/16 18:59 10/11/16 08:43 1 BOX Magnesium Chloride (Slow-Mag Tab) 64 mg BID PO 10/09/16 21:00 11/08/16 20:59 10/11/16 08:47 64 MG Potassium Chloride (Babs Ciel Elix) 40 meq QAM PO 10/11/16 09:00 11/01/16 08:59 Docusate Sodium (coLACE CAP) 100 mg BID PO 10/10/16 21:00 11/09/16 20:59 10/11/16 08:43 100 MG Fluoxetine HCl (Prozac Cap) 20 mg QAM PO 10/11/16 09:00 11/10/16 08:59 10/11/16 08:45 20 MG Pantoprazole Sodium (Protonix Tab) 40 mg BID PO 10/10/16 21:00 11/09/16 20:59 10/11/16 08:45 40 MG Multivitamins/ Minerals (Multivitamin W/ Minerals Tab) 1 tab QAM PO 10/11/16 09:00 11/10/16 08:59 10/11/16 08:44 1 TAB Divalproex Sodium (Depakote Delay Rel Tab) 250 mg BID PO 10/10/16 21:00 11/09/16 20:59 10/11/16 08:44 250 MG Fluconazole (Diflucan Tab) 200 mg DAILY@1200 PO 10/11/16 12:00 10/13/16 11:59 10/11/16 12:25 200 MG Gabapentin (Neurontin Cap) 100 mg BID PO 10/10/16 21:00 11/09/16 20:59 10/11/16 08:44 100 MG Objective Vital Signs Date Time Temp Pulse Resp B/P Pulse Ox O2 Delivery O2 Flow Rate FiO2 10/11/16 08:30 Room Air 10/11/16 07:27 37.1 86 17 153/68 97 Room Air 10/10/16 23:25 Room Air 10/10/16 23:11 36.6 85 16 124/68 98 Room Air 10/10/16 20:06 36.5 90 16 145/78 99 Room Air 10/10/16 16:30 100 Room Air 10/10/16 15:25 36.7 80 16 138/78 100 Room Air Physical Exam General Appearance: WD/WN, no apparent distress Eyes: normal inspection, sclerae normal ENT: normal ENT inspection, pharynx normal Neck: supple, trachea midline Respiratory/Chest: lungs clear, normal breath sounds, no respiratory distress Cardiovascular: regular rate, rhythm, no gallop, no murmur Abdomen: normal bowel sounds, non tender, soft, no organomegaly Extremities: non-tender, no calf tenderness Neurologic/Psychiatric: alert Skin: normal color, no rash Lymphatic: no adenopathy Laboratory Results Last 24 Hours Test 10/10/16 17:05 10/11/16 05:05 Urine Color YELLOW Urine Appearance CLEAR Urine pH 8.0 Urine Specific Marceline 1.006 Urine Protein NEG Urine Glucose (UA) NEG Urine Ketones NEG Urine Occult Blood 3+ Urine Nitrite NEG Urine Bilirubin NEG Urine Urobilinogen NEG Urine Leukocyte Esterase MODERATE Urine WBC (Auto) 10-30 /hpf Urine RBC (Auto) 5-10 /hpf Urine Hyaline Casts (Auto) 5-10 /lpf Urine Epithelial Cells (Auto) >30 /lpf Urine Bacteria (Auto) NEG Urine Renal Epithelial Cells 0-5 /lpf Urine Pathogenic Casts /lpf Urine Yeast (Auto) PRESENT White Blood Count 5.64 K/uL Red Blood Count 2.46 M/uL Hemoglobin 7.7 g/dL Hematocrit 23.5 % Mean Corpuscular Volume 95.5 fL Mean Corpuscular Hemoglobin 31.3 pg Mean Corpuscular Hemoglobin Concent 32.8 g/dl Platelet Count 280 K/uL Mean Platelet Volume 9.9 fL Neutrophils (%) (Auto) 50.2 % Lymphocytes (%) (Auto) 33.0 % Monocytes (%) (Auto) 11.3 % Eosinophils (%) (Auto) 4.4 % Basophils (%) (Auto) 0.9 % Neutrophils # (Auto) 2.83 K/uL Lymphocytes # (Auto) 1.86 K/uL Monocytes # (Auto) 0.64 K/uL Eosinophils # (Auto) 0.25 K/uL Basophils # (Auto) 0.05 K/uL RDW Standard Deviation 70.4 fL RDW Coefficient of Variation 20.4 % Immature Granulocyte % (Auto) 0.2 % Immature Granulocyte # (Auto) 0.01 K/uL Hypersegmented Polys 1+ Anisocytosis PRESENT Stomatocytes 1+ Sodium Level 137 mmol/L Potassium Level 4.2 mmol/L Chloride Level 100 mmol/L Carbon Dioxide Level 31 mmol/L Anion Gap 6.0 mmol/L Blood Urea Nitrogen 17 mg/dl Creatinine 0.60 mg/dl Est Creatinine Clear Calc Drug Dose 95.2 ml/min Estimated GFR () 104.8 Estimated GFR (Non- 90.4 BUN/Creatinine Ratio 27.6 Random Glucose 94 mg/dl Calcium Level 9.0 mg/dl Assessment and Plan 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 She will continue daptomycin for a planned 6 week course of therapy, unable to use rifampin because of elevation of liver enzymes. Continue to monitor CPK levels while on daptomycin. We will continue to follow.
[2016-10-11 15:21] VITALS: BP 128/75; PULSE 93; TEMP 37; O2SAT 98
--- NOTE | 2016-10-11 16:38 | PROGRESS NOTE ---
DATE: 10/11/2016 SUBJECTIVE: A 71-year-old white female now 3 weeks out from I\T\D of an infected total hip arthroplasty wound. She is not having any pain. She continues to have drainage from the hip area. It has not really changed much in the past several days. OBJECTIVE: VITAL SIGNS: Temperature is 37.0. Vital signs stable. PHYSICAL EXAMINATION: GENERAL: Reveals a pleasant elderly female. She is lying in bed, looks pretty comfortable. EXTREMITIES: Examination of left hip reveals the proximal and distal portions of the wound to be healed. The central area has still got drainage and the attempted suture removal seems to separate some. Hip is located. She is neurologically intact. LABORATORY DATA: White cell count 5.64. Hemoglobin 7.7. Hematocrit 23.5. Electrolytes are stable. ASSESSMENT: A 71-year-old white female 3 weeks out from incision and drainage of an infected total hip wound and 5 weeks out from the initial index surgery. Her wound is not healing. She has got very poor nutritional status. PLAN: We did remove some of her stitches today. The upper and lower portions of the incision seemed to be healed reasonably well but the central aspect continues to have drainage which is somewhat dependent. I feel that we may need to consider taking her back to the operating room if her health is adequate to wash this out again. I will talk to the medicine physicians and see how she is doing from a medical standpoint. We will continue to follow with routine wound care. She may actually need a wound VAC placed on this if there are no further signs of healing. Continue DVT prophylaxis including thigh-high TEDs, SCDs and subQ heparin. Any orthopedic questions can be directed to me at [phone]. [facility]
[2016-10-11] MEDS ORDERED: FLUCONAZOLE 100 MG TAB PO ONE (18:00)
[2016-10-11] MEDS: ACETAMINOPHEN 325 MG TAB PO PRN (18:34)
[2016-10-11] MEDS ORDERED: VALPROIC ACID 250 MG/5 ML UDP PO SCH (21:00)
[2016-10-11] MEDS ORDERED: GABAPENTIN 250 MG/5 ML 470 ML BTL PO SCH (21:00)
[2016-10-11 23:33] VITALS: BP 130/66; PULSE 76; TEMP 36.9; O2SAT 97
[2016-10-12] MEDS: LORAZEPAM INJ 0.5 MG in SYRINGE 0.25 ML IV PRN (00:34)
[2016-10-12] MEDS: TRAMADOL HCL 50 MG TAB PO PRN (00:53)
[2016-10-12 06:17] LABS: HEMATOCRIT 23.6 % (37-47); MEAN CELL VOLUME 94.8 fL (80-100); MEAN CORPUSCULAR HEMOGLOBIN 30.5 pg (25-34); MEAN CORPUSCULAR HGB CONC 32.2 g/dl (32-36); MEAN PLATELET VOLUME 9.6 fL (7.4-10.4); PLATELET COUNT 293 K/uL (130-400); RED BLOOD COUNT 2.49 M/uL (4.2-5.4); WHITE BLOOD COUNT 5.21 K/uL (4.8-10.8)
[2016-10-12 06:52] LABS: CALCIUM 8.9 mg/dl (8.5-10.1); CREATININE 0.64 mg/dl (0.60-1.20)
[2016-10-12 07:08] VITALS: BP 169/81; PULSE 81; TEMP 36.9; O2SAT 94
[2016-10-12 08:40] VITALS: BP 150/83
[2016-10-12] MEDS: LIDOCAINE HCL 2% VISCOUS SOLN 60 ML, DiphenhydrAMINE HCL SYRUP 150 MG, ALUMINUM/MAGNESI... MT SCH ×12 (08:40→17:41)
[2016-10-12] MEDS: CEROVITE ADV FORMULA TAB PO SCH (08:41)
[2016-10-12] MEDS: DOCUSATE SODIUM 100 MG CAP PO SCH ×2 (08:41→21:08)
[2016-10-12] MEDS: PANTOprazole SOD 40 MG TAB PO SCH ×2 (08:42→21:09)
[2016-10-12] MEDS: DIVALPROEX SODIUM 250 MG DELAY REL TAB PO SCH ×2 (08:42→21:09)
[2016-10-12] MEDS: FLUOXETINE HCL 20 MG CAP PO SCH (08:42)
[2016-10-12] MEDS: GABAPENTIN 100 MG CAP PO SCH ×2 (08:42→21:09)
[2016-10-12] MEDS: ASCORBIC ACID 500 MG TAB PO SCH (08:43)
[2016-10-12] MEDS: VITAMIN B COMPLEX TAB PO SCH (08:43)
[2016-10-12] MEDS: CHOLECALCIFEROL 1000 INTER.UNIT TAB PO SCH (08:43)
[2016-10-12] MEDS: MAGNESIUM CHLORIDE 64MG DELAYED REL TAB PO SCH ×2 (08:43→21:08)
[2016-10-12] MEDS: POTASSIUM CHLORIDE 20 MEQ/15 ML UDC PO SCH (08:44)
[2016-10-12] MEDS: BOOST BREEZE NUTRITION DRINK 1 BOX PO SCH ×2 (10:21→17:00)
[2016-10-12] MEDS: DAPTOmycin IV 650 MG in SODIUM CHLORIDE 0.9% 50ML 50 ML IV SCH (10:28)
[2016-10-12] MEDS: MICONAZOLE NITRATE POWDER 43 GM EXT PRN (11:10)
[2016-10-12] MEDS: ACETAMINOPHEN 325 MG TAB PO PRN (11:10)
[2016-10-12] MEDS: FLUCONAZOLE 100 MG TAB PO SCH (12:12)
--- NOTE | 2016-10-12 12:16 | Progress Note ---
Internal Med Progress Note Date of Service: October 12, 2016. Provider Documentation: SUBJECTIVE: Patient is doing better. Denies any c/o pain at surgical site, fever, chills, abdominal pain, chest pain , SOB Tolerating PO - softer food with no dentures OBJECTIVE: Vital Signs-as noted below Exam: General Appearance:Moderately built and nourished, no apparent distress ENT:labial and tongue ulcerations improved Neck: supple Respiratory/Chest: Decreased breath sounds, No wheezing, crackles Cardiovascular: S1, S2, + systolic murmur Extremities/Musculoskelatal: Left hip in bandage, 1+ edema Skin: normal color, warm, desquamation of hands Lab data as noted below. ASSESSMENT & PLAN: ASSESSMENT & PLAN : LEFT HIP MRSA INFECTION : Initially received IV vancomycin x 4 doses. Rifampin discontinued due to elevated LFT's Currently on daptomycin since 09/19 secondary to ATN- to be continued for total 6 weeks (Day # 25) S/P hip irrigation 09/19 -Per ortho, still has some drainage in central part of wound--> may require surgery vs wound vac. -Monitor CPK levels while on Dapto: CPK:wnl -Continue wound care -ID, Ortho, Wound care on board. QUESTIONABLE HEMATURIA Urology was consulted and this is likely vaginal bleeding and not true Hematuria. Patient does have hx of endometrial carcinoma -Recommend follow up with LOCOMOTIVE OPERATOR HELPER outpatient after discharge -Heparin -Okay to restart ALBERT/ATN- Resolved multifactorial. S/P Hemodialysis . Perm cath placed 09/29. Removal of hemodialysis catheter:10/04 -Discussed with nephrology today. Will sign off HYPOKALEMIA/HYPOMAGNESEMIA Resolved -Continue magnesium supplements ANEMIA -S/P 2 units PRBC's. -Hb stable. Consider transfusion if drops < 7 -Anemia probably multifactorial. -Monitor H&H, Transfuse PRN ENCEPHALOPATHY- Resolved -Secondary to infection SEVERE PROTEIN-CALORIE MALNUTRITION Was unable to take oral nutrition due to stomatitis. -Advanced diet as tolerated- on soft diet as doesnt have her dentures. -NG feedings discontinued on 10/10/16. 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 -Completed IV acyclovir for total 7 days. BIPOLAR DISORDER Restarted depakote ER as able to swallow pills ? DEMENTIA Discussed with patient and daughter. Had some problems with memory when receiving chemo in past, but never had tracy dementia SLEEP APNEA -Continue O2. -Resume CPAP today as NG tube removed UTI Urine culture: Shraddha. -Continue fluconazole to complete the course till 10/13/16 DVT PX Heparin SQ>> Held due to some bleeding- ? hematuria, seems more likely to be vaginal --> will re start heparin SCDs CODE STATUS Full code DISPOSITION -Sales Merchandiser consulted -Will need to be discharged to rehab, pending decision from ortho/wound care. Vital Signs: Date Time Temp Pulse Resp B/P Pulse Ox O2 Delivery O2 Flow Rate FiO2 10/12/16 08:40 150/83 10/12/16 08:00 Room Air 10/12/16 07:08 36.9 81 19 169/81 94 Room Air 10/11/16 23:33 36.9 76 18 130/66 97 Room Air 10/11/16 23:20 Room Air 10/11/16 17:00 Room Air 10/11/16 15:21 37.0 93 18 128/75 98 Room Air Lab Results: Results Past 24 Hours Test 10/12/16 05:47 Range/Units White Blood Count 5.21 4.8-10.8 K/uL Red Blood Count 2.49 4.2-5.4 M/uL Hemoglobin 7.6 12.0-16.0 g/dL Hematocrit 23.6 37-47 % Mean Corpuscular Volume 94.8 80-100 fL Mean Corpuscular Hemoglobin 30.5 25-34 pg Mean Corpuscular Hemoglobin Concent 32.2 32-36 g/dl RDW Standard Deviation 69.3 36.4-46.3 fL RDW Coefficient of Variation 20.4 11.5-14.5 % Platelet Count 293 130-400 K/uL Mean Platelet Volume 9.6 7.4-10.4 fL Sodium Level 137 136-145 mmol/L Potassium Level 4.0 3.5-5.1 mmol/L Chloride Level 101 98-107 mmol/L Carbon Dioxide Level 29 21-32 mmol/L Anion Gap 7.0 3-11 mmol/L Blood Urea Nitrogen 19 7-18 mg/dl Creatinine 0.64 0.60-1.20 mg/dl Est Creatinine Clear Calc Drug Dose 89.2 ml/min Estimated GFR () 102.6 Estimated GFR (Non- 88.5 BUN/Creatinine Ratio 29.0 10-20 Random Glucose 93 70-99 mg/dl Calcium Level 8.9 8.5-10.1 mg/dl
--- NOTE | 2016-10-12 15:42 | PROGRESS NOTE ---
DATE: 10/17/2016 DATE: 10/12/2016. SUBJECTIVE: A 71-year-old female now 3 weeks out from I\T\D of an infected total hip wound. She is doing better clinically. She does not have much pain. Really hoping to avoid any further surgery. OBJECTIVE: VITAL SIGNS: Temperature is 36.9. Vital signs stable. PHYSICAL EXAMINATION: GENERAL: Reveals a pleasant elderly female. She is sitting up in bed, looks pretty comfortable. EXTREMITIES: Examination of left hip reveals the wound to be well approximated. Fairly small amount of drainage in the mid aspect of the wound. No real cellulitis. Hip is located. She is neurologically intact. ASSESSMENT: A 71-year-old white female 3 weeks out from I\T\D of an infected hip wound making medical progress but her wound continues to drain fluid. PLAN: We had a long discussion as far as treatment. I had Dr. Gabriel from the wound clinic visit with her. He thinks he can place a wound VAC on her and help with the healing of this. Certainly I would like to avoid taking her back to the operating room at all possible due to her medical progress and the severity of her condition. After discussing with the patient she is in favor. She wants to avoid further surgery as well. We will continue the IV antibiotics for 3 more weeks. Will continue to follow her daily. She can continue with therapy, weightbearing as tolerated with total hip precautions. Any orthopedic questions can be directed to me at [phone].
[2016-10-12 16:36] VITALS: BP 133/69; PULSE 102; TEMP 37.4; O2SAT 82
--- NOTE | 2016-10-12 17:02 | Infectious Disease Progress Nt ---
Progress Note Date of Service October 12, 2016. Subjective Pt evaluation today including: conversation w/ patient, physical exam, chart review, lab review, review of studies, conversation w/ senior sustainability consultant, review of inpatient medication list No new complaints. Minimal left hip pain. No fever. All Other Systems: Reviewed and Negative Medications Current Inpatient Medications Medications (Trade) Dose Ordered Sig/Quan Route Start Time Stop Time Status Last Admin Dose Admin Vitamin B Complex (Vitamin B Complex) 1 tab DAILY PO 09/18/16 09:00 10/18/16 08:59 10/12/16 08:43 1 TAB Acetaminophen (Tylenol Tab) 650 mg Q6H PRN PO 09/18/16 08:15 10/18/16 08:14 10/12/16 11:10 650 MG Daptomycin (Consult) 1 ea UD PRN N/A 09/19/16 08:30 10/19/16 08:29 Miconazole Nitrate (Desenex Powder) 1 appln PRN PRN EXT 09/20/16 15:15 10/20/16 15:14 10/12/16 11:10 1 APPLN Heparin Sodium (Porcine) (Heparin 10 Unit/ ml 5 ml Flush) 5 ml PRN PRN FLUSH 09/24/16 15:15 10/24/16 15:14 10/12/16 11:19 5 ML Ascorbic Acid (Vitamin C Tab) 1,000 mg QAM PO 09/26/16 09:00 10/26/16 08:59 10/12/16 08:43 1,000 MG Cholecalciferol 1000 inter.unit 1,000 inter.unit QAM PO 09/26/16 09:00 10/26/16 08:59 10/12/16 08:43 1,000 INTER.UNIT Lorazepam/Syringe (Ativan Inj/ Syringe) 0.5 ml @ 0.5 mls/min Q8H PRN IV 09/30/16 21:30 10/30/16 21:29 10/12/16 00:34 0.5 MLS/MIN Fluconazole (Consult) 1 ea UD PRN N/A 09/30/16 21:45 10/17/16 11:59 Sodium Biphosphate/ Sodium Phosphate 132 ml DAILY PRN [place] 10/01/16 07:00 10/31/16 06:59 10/05/16 14:47 132 ML Lidocaine HCl 60 ml/ Diphenhydramine HCl 150 mg/Al Hydroxide/Mg Hydroxide 60 ml/ Glycerin 60 ml/ Barcode 1 ea AC MT 10/01/16 16:15 10/31/16 16:14 10/12/16 12:12 5 ML Daptomycin/Sodium Chloride (Cubicin IV/Nss 50ml) 63 ml @ 120 mls/hr Q24H IV 10/03/16 10:00 11/02/16 08:59 10/12/16 10:28 120 MLS/HR Enteral Nutritional Formula (Boost Breeze Nutritional Drink) 1 box BID17 PO 10/08/16 19:00 11/07/16 18:59 10/12/16 10:21 1 BOX Magnesium Chloride (Slow-Mag Tab) 64 mg BID PO 10/09/16 21:00 11/08/16 20:59 10/12/16 08:43 64 MG Docusate Sodium (coLACE CAP) 100 mg BID PO 10/10/16 21:00 11/09/16 20:59 10/12/16 08:41 100 MG Fluoxetine HCl (Prozac Cap) 20 mg QAM PO 10/11/16 09:00 11/10/16 08:59 10/12/16 08:42 20 MG Pantoprazole Sodium (Protonix Tab) 40 mg BID PO 10/10/16 21:00 11/09/16 20:59 10/12/16 08:42 40 MG Multivitamins/ Minerals (Multivitamin W/ Minerals Tab) 1 tab QAM PO 10/11/16 09:00 11/10/16 08:59 10/12/16 08:41 1 TAB Divalproex Sodium (Depakote Delay Rel Tab) 250 mg BID PO 10/10/16 21:00 11/09/16 20:59 10/12/16 08:42 250 MG Gabapentin (Neurontin Cap) 100 mg BID PO 10/10/16 21:00 11/09/16 20:59 10/12/16 08:42 100 MG Potassium Chloride (Babs Ciel Elix) 20 meq QAM PO 10/12/16 09:00 11/11/16 08:59 Fluconazole (Diflucan Tab) 400 mg DAILY@1200 PO 10/12/16 12:00 10/17/16 11:59 10/12/16 12:12 400 MG Tramadol HCl (Ultram Tab) 25 mg Q6H PRN PO 10/12/16 00:30 11/11/16 00:29 10/12/16 00:53 25 MG Heparin Sodium (Porcine) (Heparin Sq 5000 Unit/0.5ml) 5,000 unit Q12 SQ 10/12/16 21:00 11/11/16 20:59 Zinc Sulfate (Zinc Sulfate Cap) 220 mg QAM PO 10/13/16 09:00 10/23/16 08:59 Objective Vital Signs Date Time Temp Pulse Resp B/P Pulse Ox O2 Delivery O2 Flow Rate FiO2 10/12/16 16:36 37.4 102 16 133/69 82 Room Air 10/12/16 08:40 150/83 10/12/16 08:00 Room Air 10/12/16 07:08 36.9 81 19 169/81 94 Room Air 10/11/16 23:33 36.9 76 18 130/66 97 Room Air 10/11/16 23:20 Room Air 10/11/16 17:00 Room Air Physical Exam General Appearance: WD/WN, no apparent distress Eyes: normal inspection, sclerae normal ENT: normal ENT inspection, pharynx normal Neck: supple, no adenopathy, trachea midline Respiratory/Chest: chest non-tender, lungs clear, normal breath sounds, no respiratory distress Cardiovascular: regular rate, rhythm, no gallop, no murmur Abdomen: normal bowel sounds, non tender, soft, no organomegaly Extremities: non-tender, no calf tenderness Neurologic/Psychiatric: alert, oriented x 3 Skin: normal color, no rash, + pertinent finding (left hip wound healing) Lymphatic: no adenopathy Laboratory Results Last 24 Hours Test 10/12/16 05:47 White Blood Count 5.21 K/uL Red Blood Count 2.49 M/uL Hemoglobin 7.6 g/dL Hematocrit 23.6 % Mean Corpuscular Volume 94.8 fL Mean Corpuscular Hemoglobin 30.5 pg Mean Corpuscular Hemoglobin Concent 32.2 g/dl RDW Standard Deviation 69.3 fL RDW Coefficient of Variation 20.4 % Platelet Count 293 K/uL Mean Platelet Volume 9.6 fL Sodium Level 137 mmol/L Potassium Level 4.0 mmol/L Chloride Level 101 mmol/L Carbon Dioxide Level 29 mmol/L Anion Gap 7.0 mmol/L Blood Urea Nitrogen 19 mg/dl Creatinine 0.64 mg/dl Est Creatinine Clear Calc Drug Dose 89.2 ml/min Estimated GFR () 102.6 Estimated GFR (Non- 88.5 BUN/Creatinine Ratio 29.0 Random Glucose 93 mg/dl Calcium Level 8.9 mg/dl Assessment and Plan 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 She will continue daptomycin for a planned 6 week course of therapy, unable to use rifampin because of elevation of liver enzymes. Continue to monitor CPK levels while on daptomycin. We will continue to follow.
[2016-10-12] MEDS: HEPARIN SOD 5000 UNIT/0.5 ML CARP SQ SCH (21:12)
[2016-10-12 23:29] VITALS: BP 154/85; PULSE 74; TEMP 36.7; O2SAT 96
[2016-10-13 05:39] LABS: HEMATOCRIT 24.4 % (37-47); MEAN CELL VOLUME 95.7 fL (80-100); MEAN CORPUSCULAR HEMOGLOBIN 31.8 pg (25-34); MEAN CORPUSCULAR HGB CONC 33.2 g/dl (32-36); MEAN PLATELET VOLUME 9.6 fL (7.4-10.4); PLATELET COUNT 314 K/uL (130-400); RED BLOOD COUNT 2.55 M/uL (4.2-5.4)
[2016-10-13 06:11] LABS: C-REACTIVE PROTEIN 0.84 mg/dl (0-0.29); CREATININE 0.67 mg/dl (0.60-1.20)
[2016-10-13 06:21] LABS: PREALBUMIN 29.6 mg/dl (20-40)
[2016-10-13 07:05] VITALS: BP 146/79; PULSE 82; TEMP 37; O2SAT 97
--- NOTE | 2016-10-13 08:16 | PROGRESS NOTE ---
DATE: 10/13/2016 SUBJECTIVE: A 71-year-old female, now a little over 3 weeks out from I\T\D of an infected total hip wound. We had a wound VAC placed last evening. She is doing well. No new complaints. The pain is controlled. OBJECTIVE: VITAL SIGNS: Temperature 37.0. Vital signs are stable. GENERAL: Reveals a pleasant elderly female patient, lying in bed, looks pretty comfortable. EXTREMITIES: Wound VAC is in place. Hip is located. She is neurologically intact. LABORATORY DATA: Hemoglobin 8.1, hematocrit 24.4 and white cell count 5.20. Electrolytes are stable. ASSESSMENT: A 71-year-old female, a little over 3 weeks out from incision and drainage of an infected total hip wound, doing reasonably well. The wound has been slow to heal. We had a wound VAC placed last night. Everything looks to be in place and looks well. PLAN: 1. DVT prophylaxis including thigh-high TEDs, SCDs and subQ heparin in the hospital. I would convert her to aspirin upon discharge. 2. PT/OT. She can weightbear as tolerated. 3. Infection. She is going to need 6 weeks of daptomycin followed by p.o. antibiotics. Depending upon discharge, she will need a long-term antibiotic line. From an orthopedic standpoint, she is okay for discharge any time. 4. Wound care. She got a wound VAC in place. She will need followup with the wound clinic. 5. Disposition: She is orthopedically stable for discharge at any time medically stable. She needs three more weeks of IV antibiotics. I should see her back in about 2 weeks. Any orthopedic questions can be directed to me at [phone]. [facility]
[2016-10-13] MEDS: LIDOCAINE HCL 2% VISCOUS SOLN 60 ML, DiphenhydrAMINE HCL SYRUP 150 MG, ALUMINUM/MAGNESI... MT SCH ×12 (08:28→18:02)
[2016-10-13] MEDS: BOOST BREEZE NUTRITION DRINK 1 BOX PO SCH ×2 (08:28→18:02)
[2016-10-13] MEDS: GABAPENTIN 100 MG CAP PO SCH ×2 (08:36→21:29)
[2016-10-13] MEDS: DIVALPROEX SODIUM 250 MG DELAY REL TAB PO SCH ×2 (08:36→21:29)
[2016-10-13] MEDS: PANTOprazole SOD 40 MG TAB PO SCH ×2 (08:36→21:29)
[2016-10-13] MEDS: CEROVITE ADV FORMULA TAB PO SCH (08:36)
[2016-10-13] MEDS: DOCUSATE SODIUM 100 MG CAP PO SCH ×2 (08:36→21:29)
[2016-10-13] MEDS: FLUOXETINE HCL 20 MG CAP PO SCH (08:36)
[2016-10-13] MEDS: MAGNESIUM CHLORIDE 64MG DELAYED REL TAB PO SCH ×2 (08:36→21:29)
[2016-10-13] MEDS: CHOLECALCIFEROL 1000 INTER.UNIT TAB PO SCH (08:37)
[2016-10-13] MEDS: HEPARIN SOD 5000 UNIT/0.5 ML CARP SQ SCH ×2 (08:37→21:27)
[2016-10-13] MEDS: ASCORBIC ACID 500 MG TAB PO SCH (08:37)
[2016-10-13] MEDS: VITAMIN B COMPLEX TAB PO SCH (08:37)
[2016-10-13] MEDS: POTASSIUM CHLORIDE 20 MEQ/15 ML UDC PO SCH (08:38)
--- NOTE | 2016-10-13 08:45 | CONSULTATION REPORT ---
DATE OF CONSULTATION: 10/12/2016 DATE OF CONSULTATION: 10/12/2016. CHIEF COMPLAINT: Nonhealing infected wound to the left hip. HISTORY OF PRESENT ILLNESS: The patient was admitted to [facility] approximately 3 weeks ago for the management of a newly infected hip replacement on her left side. The patient at that time had generalized weakness and fever and was subsequently initiated on IV antibiotic therapy. The patient at the current time states that she is having only minimal pain in the hip region. The patient denies any fever, chills or night sweats. The patient denies any chest pain, shortness of breath, abdominal discomfort, nausea or vomiting. As stated above, the patient had a total hip replacement by Dr. Leavitt on 09/02/2016 and was in rehab at [facility] prior to her admission. PAST MEDICAL HISTORY: Positive for bipolar disorder, dementia, anemia, GERD, diastolic dysfunction, endometrial cancer, sleep apnea, and spinal stenosis. PAST SURGICAL HISTORY: Positive for inguinal herniorrhaphy, hip replacement as noted above, cataract surgery, hysterectomy, cholecystectomy, total knee replacement. MEDICATIONS: Are noted in the nursing notes and were reviewed. ALLERGIES: ADHESIVE, CETIRIZINE, DICLOXACILLIN, ERYTHROMYCIN, TETRACYCLINE, CODEINE, DOXYCYCLINE, AND MORPHINE. REVIEW OF SYSTEMS: Further review of systems was unremarkable except for those noted in the HPI and chief complaint. PHYSICAL EXAMINATION: VITAL SIGNS: Were reviewed and found to be unremarkable. The patient is afebrile. GENERAL: The patient is lying in the hospital bed in no acute distress, alert and cooperative throughout the examination. HEAD, EYES, EARS, NOSE, AND THROAT: Pupils equal and reactive to light. Sclerae clear. NECK: Supple. CHEST AND LUNGS: Clear to auscultation. EXTREMITIES: Reveal the presence of an incision site on the lateral aspect of the left hip. There are scattered sutures still present in the sight. Central portion of the incision is partially opened and with compression trains a peritoneal serous material. Initial further examination revealed that the site probed 10 cm, undermining was 15 cm inferiorly and 14 cm superiorly. There was no extensive erythema on the outer aspect of the incision site. No significant edema noted. No fluctuance present. Distal neurovascular bundle was intact. NEUROLOGIC EXAMINATION: The patient is alert and oriented x3. No focal deficits noted. IMPRESSION: 1. Postoperative wound left hip nonhealing. 2. Abscess formation left hip. PLAN: After discussion with Dr. Leavitt, it was agreed that the incision site would be opened and managed with an irrigating wound VAC. With the patient's permission, the site was prepped with Betadine. All sutures were removed. The central portion of the incision site was opened with scissors and forceps. No significant bleeding occurred. There was some additional purulent serous drainage present. The entire wound site was then irrigated copiously with normal saline 250 mL until clear. The site was then remeasured at 10 cm x 3 cm x 8 cm. The tunneling superiorly was 7.5 cm from the end of the open incision site and 9 cm inferiorly. Black foam will be inserted with an irrigating wound VAC applied, normal saline irrigation 10 minutes on and 2 hours off. Will continue irrigating VAC for the next 48 hours and then anticipate transferring to a conventional wound VAC for discharge. The patient tolerated the overall procedure well. This represented incision and drainage of an abscess of the left hip along with VAC insertion. The patient will continue to be monitored and evaluated during her hospitalization and can be seen and followed up in the outpatient clinic.
[2016-10-13] MEDS ORDERED: ZINC SULFATE 220 MG CAP PO SCH (09:00)
[2016-10-13] MEDS: DAPTOmycin IV 650 MG in SODIUM CHLORIDE 0.9% 50ML 50 ML IV SCH (09:55)
--- NOTE | 2016-10-13 10:15 | Infectious Disease Progress Nt ---
Progress Note Date of Service October 13, 2016. Subjective Pt evaluation today including: conversation w/ patient, physical exam, chart review, lab review, review of studies, conversation w/ spa consultant, review of inpatient medication list Patient had plaacement of irrigating wound VAC. Offers no new complaints. Remains afebrile. Tolerating antibiotics. LFTs normal. All Other Systems: Reviewed and Negative Medications Current Inpatient Medications Medications (Trade) Dose Ordered Sig/Quan Route Start Time Stop Time Status Last Admin Dose Admin Vitamin B Complex (Vitamin B Complex) 1 tab DAILY PO 09/18/16 09:00 10/18/16 08:59 10/13/16 08:37 1 TAB Acetaminophen (Tylenol Tab) 650 mg Q6H PRN PO 09/18/16 08:15 10/18/16 08:14 10/12/16 11:10 650 MG Daptomycin (Consult) 1 ea UD PRN N/A 09/19/16 08:30 10/19/16 08:29 Miconazole Nitrate (Desenex Powder) 1 appln PRN PRN EXT 09/20/16 15:15 10/20/16 15:14 10/12/16 11:10 1 APPLN Heparin Sodium (Porcine) (Heparin 10 Unit/ ml 5 ml Flush) 5 ml PRN PRN FLUSH 09/24/16 15:15 10/24/16 15:14 10/13/16 05:11 15 ML Ascorbic Acid (Vitamin C Tab) 1,000 mg QAM PO 09/26/16 09:00 10/26/16 08:59 10/13/16 08:37 1,000 MG Cholecalciferol 1000 inter.unit 1,000 inter.unit QAM PO 09/26/16 09:00 10/26/16 08:59 10/13/16 08:37 1,000 INTER.UNIT Lorazepam/Syringe (Ativan Inj/ Syringe) 0.5 ml @ 0.5 mls/min Q8H PRN IV 09/30/16 21:30 10/30/16 21:29 10/12/16 00:34 0.5 MLS/MIN Fluconazole (Consult) 1 ea UD PRN N/A 09/30/16 21:45 10/17/16 11:59 Sodium Biphosphate/ Sodium Phosphate 132 ml DAILY PRN [place] 10/01/16 07:00 10/31/16 06:59 10/05/16 14:47 132 ML Lidocaine HCl 60 ml/ Diphenhydramine HCl 150 mg/Al Hydroxide/Mg Hydroxide 60 ml/ Glycerin 60 ml/ Barcode 1 ea AC MT 10/01/16 16:15 10/31/16 16:14 10/13/16 08:28 5 ML Daptomycin/Sodium Chloride (Cubicin IV/Nss 50ml) 63 ml @ 120 mls/hr Q24H IV 10/03/16 10:00 11/02/16 08:59 10/13/16 09:55 120 MLS/HR Enteral Nutritional Formula (Boost Breeze Nutritional Drink) 1 box BID17 PO 10/08/16 19:00 11/07/16 18:59 10/13/16 08:28 1 BOX Magnesium Chloride (Slow-Mag Tab) 64 mg BID PO 10/09/16 21:00 11/08/16 20:59 10/13/16 08:36 64 MG Docusate Sodium (coLACE CAP) 100 mg BID PO 10/10/16 21:00 11/09/16 20:59 10/13/16 08:36 100 MG Fluoxetine HCl (Prozac Cap) 20 mg QAM PO 10/11/16 09:00 11/10/16 08:59 10/13/16 08:36 20 MG Pantoprazole Sodium (Protonix Tab) 40 mg BID PO 10/10/16 21:00 11/09/16 20:59 10/13/16 08:36 40 MG Multivitamins/ Minerals (Multivitamin W/ Minerals Tab) 1 tab QAM PO 10/11/16 09:00 11/10/16 08:59 10/13/16 08:36 1 TAB Divalproex Sodium (Depakote Delay Rel Tab) 250 mg BID PO 10/10/16 21:00 11/09/16 20:59 10/13/16 08:36 250 MG Gabapentin (Neurontin Cap) 100 mg BID PO 10/10/16 21:00 11/09/16 20:59 10/13/16 08:36 100 MG Potassium Chloride (Babs Ciel Elix) 20 meq QAM PO 10/12/16 09:00 11/11/16 08:59 Fluconazole (Diflucan Tab) 400 mg DAILY@1200 PO 10/12/16 12:00 10/17/16 11:59 10/12/16 12:12 400 MG Tramadol HCl (Ultram Tab) 25 mg Q6H PRN PO 10/12/16 00:30 11/11/16 00:29 10/12/16 00:53 25 MG Heparin Sodium (Porcine) (Heparin Sq 5000 Unit/0.5ml) 5,000 unit Q12 SQ 10/12/16 21:00 11/11/16 20:59 10/13/16 08:37 5,000 UNIT Zinc Sulfate (Zinc Sulfate Cap) 220 mg QAM PO 10/13/16 09:00 10/23/16 08:59 10/13/16 08:37 220 MG Objective Vital Signs Date Time Temp Pulse Resp B/P Pulse Ox O2 Delivery O2 Flow Rate FiO2 10/13/16 08:00 Room Air 10/13/16 07:05 37.0 82 19 146/79 97 Room Air 10/12/16 23:29 36.7 74 16 154/85 96 Room Air 10/12/16 23:15 Room Air 10/12/16 16:36 37.4 102 16 133/69 82 Room Air 10/12/16 16:30 Room Air Physical Exam General Appearance: WD/WN, no apparent distress Eyes: normal inspection, EOMI, sclerae normal ENT: normal ENT inspection, pharynx normal Neck: supple, no adenopathy, trachea midline Respiratory/Chest: lungs clear, normal breath sounds, no respiratory distress Cardiovascular: regular rate, rhythm, no gallop, no murmur Abdomen: normal bowel sounds, non tender, soft, no organomegaly Extremities: no calf tenderness, + pertinent finding (wound VAC left hip) Neurologic/Psychiatric: alert, oriented x 3 Skin: normal color, no rash Lymphatic: no adenopathy Laboratory Results Last 24 Hours Test 10/12/16 17:20 10/13/16 05:15 Total Bilirubin 0.4 mg/dl Direct Bilirubin 0.2 mg/dl Aspartate Amino Transf (AST/SGOT) 11 U/L Alanine Aminotransferase (ALT/SGPT) 15 U/L Alkaline Phosphatase 98 U/L Total Creatine Kinase 20 U/L 16 U/L Total Protein 6.6 gm/dl Albumin 2.5 gm/dl White Blood Count 5.20 K/uL Red Blood Count 2.55 M/uL Hemoglobin 8.1 g/dL Hematocrit 24.4 % Mean Corpuscular Volume 95.7 fL Mean Corpuscular Hemoglobin 31.8 pg Mean Corpuscular Hemoglobin Concent 33.2 g/dl RDW Standard Deviation 69.7 fL RDW Coefficient of Variation 20.5 % Platelet Count 314 K/uL Mean Platelet Volume 9.6 fL Creatinine 0.67 mg/dl Est Creatinine Clear Calc Drug Dose 85.2 ml/min Estimated GFR () 101.1 Estimated GFR (Non- 87.2 C-Reactive Protein 0.84 mg/dl Prealbumin 29.6 mg/dl Assessment and Plan 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 She will continue daptomycin for a planned 6 week course of therapy, unable to use rifampin because of elevation of liver enzymes. These have returned to normal. Continue to monitor CPK levels while on daptomycin. Would like to see in 2 weeks after discharge.
[2016-10-13] MEDS: FLUCONAZOLE 100 MG TAB PO SCH (12:20)
--- NOTE | 2016-10-13 13:04 | Progress Note ---
Internal Med Progress Note Date of Service: October 13, 2016. Provider Documentation: SUBJECTIVE: Patient is doing better. Denies any c/o pain at surgical site, fever, chills, abdominal pain, chest pain , SOB Tolerating PO. Had a BM OBJECTIVE: Vital Signs-as noted below Exam: General Appearance:Moderately built and nourished, no apparent distress ENT:labial and tongue ulcerations improved Neck: supple Respiratory/Chest: Decreased breath sounds, No wheezing, crackles Cardiovascular: S1, S2, + systolic murmur Extremities/Musculoskelatal: Left hip in bandage, 1+ edema Skin: normal color, warm, desquamation of hands Lab data as noted below. ASSESSMENT & PLAN: ASSESSMENT & PLAN : LEFT HIP MRSA INFECTION : Initially received IV vancomycin x 4 doses. Rifampin discontinued due to elevated LFT's Currently on daptomycin since 09/19 secondary to ATN- to be continued for total 6 weeks (Day # 26) S/P Hip irrigation 09/19 -Per ortho, still has some drainage in central part of wound --> Will require wound vac placement -Monitor CPK levels while on Dapto ( q weekly) : CPK: WNL -Continue wound care -ID, Ortho, Wound care on board. PLAN: Per wound care physician/Ortho ---> Will need wound vac placement for non healing incision site. ALBERT/ATN- Resolved multifactorial. S/P Hemodialysis . Perm cath placed 09/29. Removal of hemodialysis catheter:10/04 -Discussed with nephrology today. Will sign off HYPOKALEMIA/HYPOMAGNESEMIA- Resolved -Continue magnesium supplements ANEMIA -S/P 2 units PRBC's. -Hb stable. Consider transfusion if drops < 7 -Anemia probably multifactorial. -Monitor H&H, Transfuse PRN ENCEPHALOPATHY- Resolved -Secondary to infection SEVERE PROTEIN-CALORIE MALNUTRITION Was unable to take oral nutrition due to stomatitis. -Advanced diet- tolerating PO -NG feedings discontinued on 10/10/16. -Stamper Blocker on board. To do Pre albumin/CRP on a weekly basis to access nutritional status. 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 -Completed IV acyclovir for total 7 days. BIPOLAR DISORDER On Depakote ER as able to swallow pills ? DEMENTIA Discussed with patient and daughter. Had some problems with memory when receiving chemo in past, but never had tracy dementia -Stable SLEEP APNEA -Continue O2. -Resume CPAP UTI Urine culture: Shraddha. -Continue fluconazole to complete the course till 10/13/16 DVT PX Heparin SQ>> Held due to some bleeding- ? hematuria, seems more likely to be vaginal --> re started heparin SCDs CODE STATUS Full code DISPOSITION -Mental Hygienist consulted -Will need to be discharged to rehab, pending decision from ortho/wound care- plan is for wound vac placement Vital Signs: Date Time Temp Pulse Resp B/P Pulse Ox O2 Delivery O2 Flow Rate FiO2 10/13/16 08:00 Room Air 10/13/16 07:05 37.0 82 19 146/79 97 Room Air 10/12/16 23:29 36.7 74 16 154/85 96 Room Air 10/12/16 23:15 Room Air 10/12/16 16:36 37.4 102 16 133/69 82 Room Air 10/12/16 16:30 Room Air Lab Results: Results Past 24 Hours Test 10/12/16 17:20 10/13/16 05:15 Range/Units Total Bilirubin 0.4 0.2-1 mg/dl Direct Bilirubin 0.2 0-0.2 mg/dl Aspartate Amino Transf (AST/SGOT) 11 15-37 U/L Alanine Aminotransferase (ALT/SGPT) 15 12-78 U/L Alkaline Phosphatase 98 45-117 U/L Total Creatine Kinase 20 16 26-192 U/L Total Protein 6.6 6.4-8.2 gm/dl Albumin 2.5 3.4-5.0 gm/dl White Blood Count 5.20 4.8-10.8 K/uL Red Blood Count 2.55 4.2-5.4 M/uL Hemoglobin 8.1 12.0-16.0 g/dL Hematocrit 24.4 37-47 % Mean Corpuscular Volume 95.7 80-100 fL Mean Corpuscular Hemoglobin 31.8 25-34 pg Mean Corpuscular Hemoglobin Concent 33.2 32-36 g/dl RDW Standard Deviation 69.7 36.4-46.3 fL RDW Coefficient of Variation 20.5 11.5-14.5 % Platelet Count 314 130-400 K/uL Mean Platelet Volume 9.6 7.4-10.4 fL Creatinine 0.67 0.60-1.20 mg/dl Est Creatinine Clear Calc Drug Dose 85.2 ml/min Estimated GFR () 101.1 Estimated GFR (Non- 87.2 C-Reactive Protein 0.84 0-0.29 mg/dl Prealbumin 29.6 20-40 mg/dl
[2016-10-13] MEDS ORDERED: NURSING VERBAL MED ORDER ONE ×2 (14:30→19:45)
[2016-10-13 14:34] LABS: C-REACTIVE PROTEIN 0.77 mg/dl (0-0.29); PREALBUMIN 34.8 mg/dl (20-40)
[2016-10-13] MEDS: ONDANSETRON 4MG OD TAB PO PRN (15:02)
[2016-10-13 16:08] VITALS: BP 112/67; PULSE 61; TEMP 36.6; O2SAT 97
[2016-10-13 23:32] VITALS: BP 144/80; PULSE 78; TEMP 36.9; O2SAT 96
[2016-10-14 07:46] VITALS: BP 138/79; PULSE 82; TEMP 36.8; O2SAT 97
[2016-10-14] MEDS: HEPARIN SOD 5000 UNIT/0.5 ML CARP SQ SCH ×2 (08:19→20:54)
[2016-10-14] MEDS: BOOST BREEZE NUTRITION DRINK 1 BOX PO SCH ×2 (08:21→17:00)
[2016-10-14] MEDS: DIVALPROEX SODIUM 250 MG DELAY REL TAB PO SCH ×2 (08:22→20:57)
[2016-10-14] MEDS: MAGNESIUM CHLORIDE 64MG DELAYED REL TAB PO SCH ×2 (08:23→20:57)
[2016-10-14] MEDS: POTASSIUM CHLORIDE 20 MEQ/15 ML UDC PO SCH (08:25)
[2016-10-14] MEDS: GABAPENTIN 100 MG CAP PO SCH ×2 (08:25→20:57)
[2016-10-14] MEDS: DOCUSATE SODIUM 100 MG CAP PO SCH ×2 (08:26→20:57)
[2016-10-14] MEDS: FLUOXETINE HCL 20 MG CAP PO SCH (08:26)
[2016-10-14] MEDS: PANTOprazole SOD 40 MG TAB PO SCH ×2 (08:27→20:57)
[2016-10-14 08:30] VITALS: O2SAT 97
[2016-10-14] MEDS: LIDOCAINE HCL 2% VISCOUS SOLN 60 ML, DiphenhydrAMINE HCL SYRUP 150 MG, ALUMINUM/MAGNESI... MT SCH ×12 (08:56→17:39)
[2016-10-14] MEDS: DAPTOmycin IV 650 MG in SODIUM CHLORIDE 0.9% 50ML 50 ML IV SCH (10:25)
--- NOTE | 2016-10-14 11:51 | Progress Note ---
Internal Med Progress Note Date of Service: October 14, 2016. Provider Documentation: SUBJECTIVE: Patient is sitting comfortably in chair. Denies any c/o pain at surgical site, fever, chills, abdominal pain, chest pain , SOB Tolerating PO. Has a wound vac now OBJECTIVE: Vital Signs-as noted below Exam: General Appearance:Moderately built and nourished, no apparent distress ENT:labial and tongue ulcerations improved Neck: supple Respiratory/Chest: Decreased breath sounds, No wheezing, crackles Cardiovascular: S1, S2, + systolic murmur Extremities/Musculoskelatal: Left hip - Wound vac + , 1+ edema Skin: normal color, warm, desquamation of hands Lab data as noted below. ASSESSMENT & PLAN: ASSESSMENT & PLAN : LEFT HIP MRSA INFECTION : Initially received IV vancomycin x 4 doses. Rifampin discontinued due to elevated LFT's Currently on daptomycin since 09/19 secondary to ATN- to be continued for total 6 weeks (Day # 27) S/P Hip irrigation 09/19; S/P I & D abscess left hip with irrigating wound vac placement by Dr Gabriel on 10/13/16 -Monitor CPK levels while on Dapto ( q weekly) : CPK: WNL -Continue wound care -ID, Ortho, Wound care on board. PLAN: Per wound care physician/Ortho ---> Irrigating wound vac placed on - Continue x 48 hours and than conventional wound vac will be placed for discharge. ALBERT/ATN- Resolved multifactorial. S/P Hemodialysis . Perm cath placed 09/29. Removal of hemodialysis catheter:10/04 -Nephrology signed off HYPOKALEMIA/HYPOMAGNESEMIA- Resolved -Continue magnesium supplements ANEMIA -S/P 2 units PRBC's. -Hb stable. Consider transfusion if drops < 7 -Anemia probably multifactorial. -Monitor H&H, Transfuse PRN ENCEPHALOPATHY- Resolved -Secondary to infection SEVERE PROTEIN-CALORIE MALNUTRITION Was unable to take oral nutrition due to stomatitis. -Advanced diet- tolerating PO -NG feedings discontinued on 10/10/16. -Wild Life Manager on board. To do Pre albumin/CRP on a weekly basis to access nutritional status. 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 -Completed IV acyclovir for total 7 days. BIPOLAR DISORDER On Depakote ER as able to swallow pills ? DEMENTIA Discussed with patient and daughter. Had some problems with memory when receiving chemo in past, but never had tracy dementia -Stable SLEEP APNEA -Continue O2. -Resume CPAP UTI Urine culture: Shraddha. -Continue fluconazole to complete the course till 10/13/16 DVT PX Heparin SQ>> Held due to some bleeding- ? hematuria, seems more likely to be vaginal --> re started heparin SCDs CODE STATUS Full code DISPOSITION -Home Care Consultant consulted -Will need to be discharged to rehab after conventional wound vac in place and cleared by wound care/ortho Vital Signs: Date Time Temp Pulse Resp B/P Pulse Ox O2 Delivery O2 Flow Rate FiO2 10/14/16 07:46 36.8 82 16 138/79 97 Room Air 10/14/16 00:15 Room Air CPAP 10/13/16 23:32 36.9 78 17 144/80 96 Room Air 10/13/16 16:08 36.6 61 17 112/67 97 Room Air Oxyhood 10/13/16 16:00 Room Air Lab Results: Results Past 24 Hours Test 10/13/16 13:40 Range/Units C-Reactive Protein 0.77 0-0.29 mg/dl Prealbumin 34.8 20-40 mg/dl
[2016-10-14] MEDS: FLUCONAZOLE 100 MG TAB PO SCH (12:32)
[2016-10-14] MEDS: VITAMIN B COMPLEX TAB PO SCH (12:33)
[2016-10-14] MEDS: ZINC SULFATE 220 MG CAP PO SCH (12:33)
[2016-10-14] MEDS: CEROVITE ADV FORMULA TAB PO SCH (12:33)
[2016-10-14] MEDS: ASCORBIC ACID 500 MG TAB PO SCH (12:34)
[2016-10-14] MEDS: CHOLECALCIFEROL 1000 INTER.UNIT TAB PO SCH (12:34)
--- NOTE | 2016-10-14 14:25 | Infectious Disease Progress Nt ---
Progress Note Date of Service October 14, 2016. Subjective Pt evaluation today including: conversation w/ patient, physical exam, chart review, lab review, review of studies, conversation w/ strategic consultant, review of inpatient medication list Feels better. Remains afebrile. Oral intake better. All Other Systems: Reviewed and Negative Medications Current Inpatient Medications Medications (Trade) Dose Ordered Sig/Quan Route Start Time Stop Time Status Last Admin Dose Admin Acetaminophen (Tylenol Tab) 650 mg Q6H PRN PO 09/18/16 08:15 10/18/16 08:14 10/12/16 11:10 650 MG Daptomycin (Consult) 1 ea UD PRN N/A 09/19/16 08:30 10/19/16 08:29 Miconazole Nitrate (Desenex Powder) 1 appln PRN PRN EXT 09/20/16 15:15 10/20/16 15:14 10/12/16 11:10 1 APPLN Heparin Sodium (Porcine) 5 ml 5 ml PRN PRN FLUSH 09/24/16 15:15 10/24/16 15:14 10/14/16 12:04 5 ML Lorazepam/Syringe (Ativan Inj/ Syringe) 0.5 ml @ 0.5 mls/min Q8H PRN IV 09/30/16 21:30 10/30/16 21:29 10/12/16 00:34 0.5 MLS/MIN Fluconazole (Consult) 1 UD PRN N/A 09/30/16 21:45 10/17/16 11:59 Sodium Biphosphate/ Sodium Phosphate 132 ml DAILY PRN [place] 10/01/16 07:00 10/31/16 06:59 10/05/16 14:47 132 ML Lidocaine HCl 60 ml/ Diphenhydramine HCl 150 mg/Al Hydroxide/Mg Hydroxide 60 ml/ Glycerin 60 ml/ Barcode 1 AC MT 10/01/16 16:15 10/31/16 16:14 10/14/16 12:54 5 ML Daptomycin/Sodium Chloride (Cubicin IV/Nss 50ml) 63 ml @ 120 mls/hr Q24H IV 10/03/16 10:00 11/02/16 08:59 10/14/16 10:25 120 MLS/HR Enteral Nutritional Formula (Boost Breeze Nutritional Drink) 1 box BID17 PO 10/08/16 19:00 11/07/16 18:59 10/13/16 18:02 1 BOX Magnesium Chloride (Slow-Mag Tab) 64 mg BID PO 10/09/16 21:00 11/08/16 20:59 10/14/16 08:23 64 MG Docusate Sodium (coLACE CAP) 100 mg BID PO 10/10/16 21:00 11/09/16 20:59 10/14/16 08:26 100 MG Fluoxetine HCl (Prozac Cap) 20 mg QAM PO 10/11/16 09:00 11/10/16 08:59 10/14/16 08:26 20 MG Pantoprazole Sodium (Protonix Tab) 40 mg BID PO 10/10/16 21:00 11/09/16 20:59 10/14/16 08:27 40 MG Divalproex Sodium (Depakote Delay Rel Tab) 250 mg BID PO 10/10/16 21:00 11/09/16 20:59 10/14/16 08:22 250 MG Gabapentin (Neurontin Cap) 100 mg BID PO 10/10/16 21:00 11/09/16 20:59 10/14/16 08:25 100 MG Potassium Chloride (Babs Ciel Elix) 20 meq QAM PO 10/12/16 09:00 11/11/16 08:59 Fluconazole (Diflucan Tab) 400 mg DAILY@1200 PO 10/12/16 12:00 10/17/16 11:59 10/14/16 12:32 400 MG Tramadol HCl (Ultram Tab) 25 mg Q6H PRN PO 10/12/16 00:30 11/11/16 00:29 10/12/16 00:53 25 MG Heparin Sodium (Porcine) (Heparin Sq 5000 Unit/0.5ml) 5,000 unit Q12 SQ 10/12/16 21:00 11/11/16 20:59 10/14/16 08:19 5,000 UNIT Ondansetron HCl (Zofran Odt) 4 mg Q6H PRN PO 10/13/16 14:30 11/12/16 14:29 10/13/16 15:02 4 MG Vitamin B Complex (Vitamin B Complex) 1 tab DAILY@1200 PO 10/14/16 12:00 11/13/16 11:59 5/19/17 12:33 1 TAB Ascorbic Acid (Vitamin C Tab) 1,000 mg DAILY@1200 PO 10/14/16 12:00 11/13/16 11:59 10/14/16 12:34 1,000 MG Cholecalciferol (Vitamin D Tab) 1,000 inter.unit DAILY@1200 PO 10/14/16 12:00 11/13/16 11:59 10/14/16 12:34 1,000 INTER.UNIT Multivitamins/ Minerals (Multivitamin W/ Minerals Tab) 1 tab DAILY@1200 PO 10/14/16 12:00 11/13/16 11:59 10/14/16 12:33 1 TAB Zinc Sulfate (Zinc Sulfate Cap) 220 mg DAILY@1200 PO 10/14/16 12:00 11/13/16 11:59 10/14/16 12:33 220 MG Objective Vital Signs Date Time Temp Pulse Resp B/P Pulse Ox O2 Delivery O2 Flow Rate FiO2 10/14/16 08:30 97 10/14/16 07:46 36.8 82 16 138/79 97 Room Air 10/14/16 00:15 Room Air CPAP 10/13/16 23:32 36.9 78 17 144/80 96 Room Air 10/13/16 16:08 36.6 61 17 112/67 97 Room Air Oxyhood 10/13/16 16:00 Room Air Physical Exam General Appearance: WD/WN, no apparent distress Eyes: normal inspection, sclerae normal ENT: normal ENT inspection, + pertinent finding (oral ulcers better) Neck: supple, no adenopathy, trachea midline Respiratory/Chest: chest non-tender, lungs clear, normal breath sounds, no respiratory distress Cardiovascular: regular rate, rhythm, no gallop, no murmur Abdomen: normal bowel sounds, non tender, soft, no organomegaly Extremities: non-tender, no calf tenderness, + pertinent finding (wound VAC pending) Neurologic/Psychiatric: alert, oriented x 3 Skin: normal color, no rash Assessment and Plan 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 She will continue daptomycin for a planned 6 week course of therapy, unable to use rifampin because of elevation of liver enzymes. These have returned to normal. Continue to monitor CPK levels while on daptomycin. Would like to see in 2 weeks after discharge.
[2016-10-14 15:09] VITALS: BP 129/81; PULSE 80; TEMP 36.9; O2SAT 94
[2016-10-14] MEDS: TRAMADOL HCL 50 MG TAB PO PRN ×2 (15:37→22:13)
[2016-10-15] MEDS: LORAZEPAM INJ 0.5 MG in SYRINGE 0.25 ML IV PRN (00:06)
[2016-10-15 05:59] LABS: HEMATOCRIT 24.6 % (37-47); MEAN CORPUSCULAR HEMOGLOBIN 30.5 pg (25-34); MEAN CORPUSCULAR HGB CONC 32.1 g/dl (32-36); MEAN PLATELET VOLUME 9.1 fL (7.4-10.4); PLATELET COUNT 343 K/uL (130-400); RED BLOOD COUNT 2.59 M/uL (4.2-5.4); WHITE BLOOD COUNT 5.26 K/uL (4.8-10.8)
[2016-10-15 07:46] VITALS: BP 136/75; PULSE 83; TEMP 36.8; O2SAT 97
[2016-10-15] MEDS: LIDOCAINE HCL 2% VISCOUS SOLN 60 ML, DiphenhydrAMINE HCL SYRUP 150 MG, ALUMINUM/MAGNESI... MT SCH ×12 (08:00→17:45)
--- NOTE | 2016-10-15 08:39 | PROGRESS NOTE ---
DATE: 10/15/2016 DATE: 10/15/2016. SUBJECTIVE: A 71-year-old female about 3-1/2 weeks out from I\T\D of an infected total hip wound on the left side. She is doing better. Really no pain. She is getting around better. No chest pain or shortness of breath. Denies any hip pain. OBJECTIVE: VITAL SIGNS: Temperature is 36.8. Vital signs stable. PHYSICAL EXAMINATION: GENERAL: Reveals a pleasant elderly female. She is lying in bed, looks pretty comfortable. EXTREMITIES: Examination of left hip reveals the wound VAC to be in place. The incision area and soft tissues look to be healing nicely. No redness or cellulitis. Her hip is located. She is neurologically intact. LABORATORY DATA: Hemoglobin 7.9. Hematocrit 24.6. White cell count 5.26. ASSESSMENT: A 71-year-old white female 3-1/2 weeks out from I\T\D of infected total hip wound continuing to make gradual progress. She was quite ill but doing well now. Wound VAC management seems to have helped. PLAN: 1. DVT prophylaxis including thigh-high TEDs, SCDs and subQ heparin. I would place her on some aspirin upon discharge if medically acceptable. 2. PT/OT. She can weightbear as tolerated. Left total hip protocol. 3. Wound care management as per the wound service. She has got a wound VAC in place and looks to be functioning well. 4. Medical management as per the medicine service. 5. Disposition. She is orthopedically okay and acceptable for discharge at any time. She will need a total of 6 weeks of IV antibiotics with daptomycin. I would like to see her 2 weeks after discharge. Any orthopedic questions can be directed to me at [phone].
[2016-10-15] MEDS: BOOST BREEZE NUTRITION DRINK 1 BOX PO SCH ×2 (08:50→16:40)
[2016-10-15] MEDS: DOCUSATE SODIUM 100 MG CAP PO SCH ×2 (08:50→20:56)
[2016-10-15] MEDS: DIVALPROEX SODIUM 250 MG DELAY REL TAB PO SCH ×2 (08:51→20:56)
[2016-10-15] MEDS: POTASSIUM CHLORIDE 20 MEQ/15 ML UDC PO SCH (08:52)
[2016-10-15] MEDS: PANTOprazole SOD 40 MG TAB PO SCH ×2 (08:52→20:56)
[2016-10-15] MEDS: GABAPENTIN 100 MG CAP PO SCH ×2 (08:52→20:56)
[2016-10-15] MEDS: FLUOXETINE HCL 20 MG CAP PO SCH (08:53)
[2016-10-15] MEDS: MAGNESIUM CHLORIDE 64MG DELAYED REL TAB PO SCH ×2 (08:53→20:57)
[2016-10-15] MEDS: HEPARIN SOD 5000 UNIT/0.5 ML CARP SQ SCH ×2 (08:58→20:53)
[2016-10-15] MEDS: ONDANSETRON 4MG OD TAB PO PRN (09:58)
[2016-10-15] MEDS: DAPTOmycin IV 650 MG in SODIUM CHLORIDE 0.9% 50ML 50 ML IV SCH (09:58)
[2016-10-15] MEDS: VITAMIN B COMPLEX TAB PO SCH (12:30)
[2016-10-15] MEDS: CEROVITE ADV FORMULA TAB PO SCH (12:30)
[2016-10-15] MEDS: CHOLECALCIFEROL 1000 INTER.UNIT TAB PO SCH (12:30)
[2016-10-15] MEDS: ZINC SULFATE 220 MG CAP PO SCH (12:31)
[2016-10-15] MEDS: ASCORBIC ACID 500 MG TAB PO SCH (12:31)
[2016-10-15] MEDS: FLUCONAZOLE 100 MG TAB PO SCH (12:33)
--- NOTE | 2016-10-15 15:30 | Progress Note ---
Internal Med Progress Note Date of Service: October 15, 2016. Provider Documentation: SUBJECTIVE: Patient is feeling tired. Denies any c/o pain at surgical site, fever, chills, abdominal pain, chest pain , SOB Tolerating PO. Has a wound vac + OBJECTIVE: Vital Signs-as noted below Exam: General Appearance:Moderately built and nourished, no apparent distress ENT:labial and tongue ulcerations improved Neck: supple Respiratory/Chest: Decreased breath sounds, No wheezing, crackles Cardiovascular: S1, S2, + systolic murmur Extremities/Musculoskelatal: Left hip - Wound vac + , 1+ edema Skin: normal color, warm, desquamation of hands Lab data as noted below. ASSESSMENT & PLAN: ASSESSMENT & PLAN : LEFT HIP MRSA INFECTION : Initially received IV vancomycin x 4 doses. Rifampin discontinued due to elevated LFT's Currently on daptomycin since 09/19 secondary to ATN- to be continued for total 6 weeks (Day # 28) S/P Hip irrigation 09/19; S/P I & D abscess left hip with irrigating wound vac placement by Dr Gabriel on 10/13/16 -Monitor CPK levels while on Dapto ( q weekly-) : CPK: WNL -Continue wound care -ID, Ortho, Wound care on board. PLAN: Per wound care physician/Ortho ---> Irrigating wound vac placed on - Continue x 48 hours and than conventional wound vac will be placed for discharge. ALBERT/ATN- Resolved multifactorial. S/P Hemodialysis . Perm cath placed 09/29. Removal of hemodialysis catheter:10/04 -Nephrology signed off HYPOKALEMIA/HYPOMAGNESEMIA- Resolved -Continue magnesium supplements ANEMIA -S/P 2 units PRBC's. -Hb stable. Consider transfusion if drops < 7 -Anemia probably multifactorial. -Monitor H&H, Transfuse PRN ENCEPHALOPATHY- Resolved -Secondary to infection SEVERE PROTEIN-CALORIE MALNUTRITION Was unable to take oral nutrition due to stomatitis. -Advanced diet- tolerating PO -NG feedings discontinued on 10/10/16. -Clam Shovel Operator on board. To do Pre albumin/CRP on a weekly q basis () to access nutritional status. 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 -Completed IV acyclovir for total 7 days. BIPOLAR DISORDER On Depakote ER as able to swallow pills ? DEMENTIA Dr Draper discussed with patient and daughter. Had some problems with memory when receiving chemo in past, but never had tracy dementia -Stable SLEEP APNEA -Continue O2. -Resume CPAP UTI Urine culture: Shraddha. -Continue fluconazole to complete the course till 10/13/16 DVT PX Heparin SQ>> Held due to some bleeding- ? hematuria, seems more likely to be vaginal --> re started heparin SCDs CODE STATUS Full code DISPOSITION -Fare Enforcement Officer consulted -Will need to be discharged to rehab after conventional wound vac in place and cleared by wound care/ortho Vital Signs: Date Time Temp Pulse Resp B/P Pulse Ox O2 Delivery O2 Flow Rate FiO2 10/15/16 10:15 Room Air 10/15/16 07:46 36.8 83 16 136/75 97 Room Air 10/14/16 23:45 Room Air 10/14/16 15:30 Room Air Lab Results: Results Past 24 Hours Test 10/15/16 05:50 Range/Units White Blood Count 5.26 4.8-10.8 K/uL Red Blood Count 2.59 4.2-5.4 M/uL Hemoglobin 7.9 12.0-16.0 g/dL Hematocrit 24.6 37-47 % Mean Corpuscular Volume 95.0 80-100 fL Mean Corpuscular Hemoglobin 30.5 25-34 pg Mean Corpuscular Hemoglobin Concent 32.1 32-36 g/dl RDW Standard Deviation 66.8 36.4-46.3 fL RDW Coefficient of Variation 19.7 11.5-14.5 % Platelet Count 343 130-400 K/uL Mean Platelet Volume 9.1 7.4-10.4 fL
[2016-10-15 15:35] VITALS: BP 144/76; PULSE 83; TEMP 36.8; O2SAT 97
[2016-10-15 22:56] VITALS: BP 128/75; PULSE 82; TEMP 36.7; O2SAT 96
[2016-10-16 07:18] VITALS: BP 167/73; PULSE 80; TEMP 36.5; O2SAT 96
[2016-10-16] MEDS: LIDOCAINE HCL 2% VISCOUS SOLN 60 ML, DiphenhydrAMINE HCL SYRUP 150 MG, ALUMINUM/MAGNESI... MT SCH ×12 (08:00→17:44)
[2016-10-16] MEDS: POTASSIUM CHLORIDE 20 MEQ/15 ML UDC PO SCH (09:00)
[2016-10-16] MEDS: BOOST BREEZE NUTRITION DRINK 1 BOX PO SCH ×2 (09:00→17:00)
--- NOTE | 2016-10-16 09:13 | PROGRESS NOTE ---
DATE: 10/16/2016 SUBJECTIVE: A 71-year-old white female postop 3-1/2 weeks out from I\T\D of an infected total hip wound. She is doing well. She denies any pain today. OBJECTIVE: VITAL SIGNS: Temperature 36.5. Vital signs stable. PHYSICAL EXAMINATION: GENERAL: Reveals a pleasant elderly female. She is lying in bed and looks comfortable. EXTREMITIES: Examination of the left hip reveals the wound VAC to be in place. Her thigh is soft and supple. Hip is located. She is neurologically intact. ASSESSMENT: A 71-year-old female 3-1/2 weeks out from incision and drainage of a left total hip wound doing reasonably well. She got a wound VAC in place. Pain is controlled. Hip is located. She is neurologically intact. The infection seems to be under control. PLAN: DVT prophylaxis including thigh-high TEDs, SCDs, and she is on subQ heparin. Comfort to aspirin on discharge. She can weightbear as tolerated to the left hip. Continue wound VAC treatment. I need to see her back 2 weeks post hospital discharge. She needs follow up with the wound clinic for wound VAC management. Any orthopedic questions can be directed to me at [phone].
[2016-10-16] MEDS: HEPARIN SOD 5000 UNIT/0.5 ML CARP SQ SCH ×2 (09:23→21:35)
[2016-10-16] MEDS: DIVALPROEX SODIUM 250 MG DELAY REL TAB PO SCH ×2 (09:24→21:31)
[2016-10-16] MEDS: DOCUSATE SODIUM 100 MG CAP PO SCH ×2 (09:24→21:31)
[2016-10-16] MEDS: GABAPENTIN 100 MG CAP PO SCH ×2 (09:25→21:32)
[2016-10-16] MEDS: PANTOprazole SOD 40 MG TAB PO SCH ×2 (09:27→21:32)
[2016-10-16] MEDS: MAGNESIUM CHLORIDE 64MG DELAYED REL TAB PO SCH ×2 (09:27→21:31)
[2016-10-16] MEDS: FLUOXETINE HCL 20 MG CAP PO SCH (09:27)
[2016-10-16] MEDS: DAPTOmycin IV 650 MG in SODIUM CHLORIDE 0.9% 50ML 50 ML IV SCH (09:28)
[2016-10-16] MEDS: ZINC SULFATE 220 MG CAP PO SCH (12:30)
[2016-10-16] MEDS: CEROVITE ADV FORMULA TAB PO SCH (12:30)
[2016-10-16] MEDS: FLUCONAZOLE 100 MG TAB PO SCH (12:30)
[2016-10-16] MEDS: VITAMIN B COMPLEX TAB PO SCH (12:30)
[2016-10-16] MEDS: ASCORBIC ACID 500 MG TAB PO SCH (12:31)
[2016-10-16] MEDS: CHOLECALCIFEROL 1000 INTER.UNIT TAB PO SCH (12:31)
--- NOTE | 2016-10-16 14:39 | Progress Note ---
Internal Med Progress Note Date of Service: October 16, 2016. Provider Documentation: SUBJECTIVE: Patient is feeling better today. Denies any c/o pain at surgical site, fever, chills, abdominal pain, chest pain , SOB Tolerating PO. Has a wound vac + OBJECTIVE: Vital Signs-as noted below Exam: General Appearance:Moderately built and nourished, no apparent distress ENT:labial and tongue ulcerations improved Neck: supple Respiratory/Chest: Decreased breath sounds, No wheezing, crackles Cardiovascular: S1, S2, + systolic murmur Extremities/Musculoskelatal: Left hip - Wound vac + , 1+ edema Skin: normal color, warm, desquamation of hands Lab data as noted below. ASSESSMENT & PLAN: ASSESSMENT & PLAN : LEFT HIP MRSA INFECTION : Initially received IV vancomycin x 4 doses. Rifampin discontinued due to elevated LFT's Currently on daptomycin since 09/19 secondary to ATN- to be continued for total 6 weeks (Day # 29) S/P Hip irrigation 09/19; S/P I & D abscess left hip with irrigating wound vac placement by Dr Gabriel on 10/13/16 -Monitor CPK levels while on Dapto ( q weekly-) : CPK: WNL -Continue wound care -ID, Ortho, Wound care on board. PLAN: Per wound care physician/Ortho ---> Irrigating wound vac placed on - Continue x 48 hours and than conventional wound vac will be placed for discharge. ALBERT/ATN- Resolved multifactorial. S/P Hemodialysis . Perm cath placed 09/29. Removal of hemodialysis catheter:10/04 -Nephrology signed off HYPOKALEMIA/HYPOMAGNESEMIA- Resolved -Continue magnesium supplements ANEMIA -S/P 2 units PRBC's. -Hb stable. Consider transfusion if drops < 7 -Anemia probably multifactorial. -Monitor H&H, Transfuse PRN ENCEPHALOPATHY- Resolved -Secondary to infection SEVERE PROTEIN-CALORIE MALNUTRITION Was unable to take oral nutrition due to stomatitis. -Advanced diet- tolerating PO -NG feedings discontinued on 10/10/16. -Administration Dean on board. To do Pre albumin/CRP on a weekly q basis () to access nutritional status. 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 -Completed IV acyclovir for total 7 days. BIPOLAR DISORDER On Depakote ER as able to swallow pills ? DEMENTIA Dr Draper discussed with patient and daughter. Had some problems with memory when receiving chemo in past, but never had tracy dementia -Stable SLEEP APNEA -Continue O2. -Resume CPAP UTI Urine culture: Shraddha. -Continue fluconazole to complete the course till 10/13/16 DVT PX Heparin SQ>> Held due to some bleeding- ? hematuria, seems more likely to be vaginal --> re started heparin SCDs CODE STATUS Full code DISPOSITION -System Software Programmer consulted -Will need to be discharged to rehab after conventional wound vac in place and cleared by wound care/ortho Vital Signs: Date Time Temp Pulse Resp B/P Pulse Ox O2 Delivery O2 Flow Rate FiO2 10/16/16 10:12 Room Air 10/16/16 07:18 36.5 80 20 167/73 96 Room Air 10/15/16 23:45 CPAP 10/15/16 22:56 36.7 82 16 128/75 96 CPAP 10/15/16 16:15 Room Air 10/15/16 15:35 36.8 83 16 144/76 97 Room Air
[2016-10-16 15:05] VITALS: BP 119/58; PULSE 82; TEMP 37; O2SAT 98
[2016-10-16 23:14] VITALS: BP 125/73; PULSE 78; TEMP 36.8; O2SAT 99
[2016-10-17 05:38] LABS: HEMATOCRIT 24.4 % (37-47); MEAN CELL VOLUME 94.9 fL (80-100); MEAN CORPUSCULAR HEMOGLOBIN 31.1 pg (25-34); MEAN CORPUSCULAR HGB CONC 32.8 g/dl (32-36); MEAN PLATELET VOLUME 8.9 fL (7.4-10.4); PLATELET COUNT 345 K/uL (130-400); RED BLOOD COUNT 2.57 M/uL (4.2-5.4); WHITE BLOOD COUNT 5.11 K/uL (4.8-10.8)
[2016-10-17 06:13] LABS: BUN/CREATININE RATIO 23.2 (10-20); CREATININE 0.7 mg/dl (0.60-1.20); POTASSIUM 4.2 mmol/L (3.5-5.1)
[2016-10-17 07:08] VITALS: BP 138/75; PULSE 78; TEMP 36.7; O2SAT 96
--- NOTE | 2016-10-17 07:32 | Discharge Instructions ---
Discharge Instructions Date of Service October 17, 2016. Admission Reason for Admission: Cellulitis Of Lt Hip Discharge Discharge Diagnosis / Problem: Left THR complicated by infection + Renal Failure Discharge Goals Goal(s): Decrease discomfort, Improve function, Increase independence, Improve disease control, Therapeutic intervention Activity Recommendations Activity Level: Assistance Required (Total Hip Precautions) Therapies: Physical Therapy, Occupational Therapy Weightbearing Status: Left weightbearing, Right weightbearing Lifting Limitations: none . Additional Information Patient informed of condition: Yes Advance Directives: No DNR: No Level of Care: Skilled Communicable Disease: No Prognosis: Improving Instructions / Follow-Up Instructions / Follow-Up Follow-up with Orthopedics 2 weeks post-discharge. Current Hospital Diet Patient's current hospital diet: Regular Diet Discharge Diet Recommended Diet: Regular Diet Procedures Procedures Performed: Removal Of Perm Catheter Pending Studies Studies pending at discharge: no Medical Emergencies . Who to Call and When: Medical Emergencies: If at any time you feel your situation is an emergency, please call 911 immediately. . Non-Emergent Contact Non-Emergency issues call your: Surgeon . . "Provider Documentation" section prepared by Florentino Leavitt. . Core Measure Problem Core Measures: None
--- NOTE | 2016-10-17 08:00 | PROGRESS NOTE ---
DATE: 10/17/2016 SUBJECTIVE: A 71-year-old female now 4 weeks out from I\T\D of an infected total hip wound with femoral head exchange and polyethylene exchange. She continues to make gradual improvements. No new complaints today. No pain. OBJECTIVE: VITAL SIGNS: Temperature 36.7. Vital signs stable. PHYSICAL EXAMINATION: Examination of the left hip reveals the leg to be well aligned. Wound VAC is in place. She is neurologically intact. LABORATORY DATA: Hemoglobin 8.0. Hematocrit 24.4. Electrolytes are stable. ASSESSMENT: A 71-year-old female 4 weeks out from incision and drainage of left infected total hip replacement with femoral head and polyethylene exchange, doing reasonably well. She has got a wound VAC in place. Looks to be healing appropriately. PLAN: Continue DVT prophylaxis including thigh-high TEDs, SCDs, and heparin. Recommend aspirin twice a day upon discharge and with respect to antibiotics, she needs 2 more weeks of IV antibiotics followed by some p.o. antibiotics. She will continue to weightbear as tolerated. Total hip precautions. I need to see her back 2 weeks postop. Any orthopedic questions can be directed to me at [phone]. She will need 2 more weeks of IV antibiotics.
[2016-10-17] MEDS: LIDOCAINE HCL 2% VISCOUS SOLN 60 ML, DiphenhydrAMINE HCL SYRUP 150 MG, ALUMINUM/MAGNESI... MT SCH ×12 (08:15→17:01)
[2016-10-17] MEDS: DOCUSATE SODIUM 100 MG CAP PO SCH ×2 (08:17→21:48)
[2016-10-17] MEDS: POTASSIUM CHLORIDE 20 MEQ TABCR PO SCH (08:18)
[2016-10-17] MEDS: PANTOprazole SOD 40 MG TAB PO SCH ×2 (08:18→21:49)
[2016-10-17] MEDS: DIVALPROEX SODIUM 250 MG DELAY REL TAB PO SCH ×2 (08:20→21:49)
[2016-10-17] MEDS: FLUOXETINE HCL 20 MG CAP PO SCH (08:20)
[2016-10-17] MEDS: MAGNESIUM CHLORIDE 64MG DELAYED REL TAB PO SCH ×2 (08:22→21:48)
[2016-10-17] MEDS: GABAPENTIN 100 MG CAP PO SCH ×2 (08:23→21:49)
[2016-10-17] MEDS: HEPARIN SOD 5000 UNIT/0.5 ML CARP SQ SCH ×2 (08:28→21:53)
[2016-10-17] MEDS: ACETAMINOPHEN 325 MG TAB PO PRN ×2 (09:51→18:39)
[2016-10-17] MEDS: DAPTOmycin IV 650 MG in SODIUM CHLORIDE 0.9% 50ML 50 ML IV SCH (09:51)
[2016-10-17] MEDS: BOOST BREEZE NUTRITION DRINK 1 BOX PO SCH ×2 (09:52→17:01)
--- NOTE | 2016-10-17 10:48 | Infectious Disease Progress Nt ---
Progress Note Date of Service October 17, 2016. Subjective Pt evaluation today including: conversation w/ patient, physical exam, chart review, lab review, review of studies, conversation w/ science consultant, review of inpatient medication list No new complaints. Pain contolled. Anticipating discharge. Continues to tolerate daptomycin. All Other Systems: Reviewed and Negative Medications Current Inpatient Medications Medications (Trade) Dose Ordered Sig/Quan Route Start Time Stop Time Status Last Admin Dose Admin Acetaminophen (Tylenol Tab) 650 mg Q6H PRN PO 09/18/16 08:15 10/18/16 08:14 10/17/16 09:51 650 MG Daptomycin (Consult) 1 ea UD PRN N/A 09/19/16 08:30 10/19/16 08:29 Miconazole Nitrate (Desenex Powder) 1 appln PRN PRN EXT 09/20/16 15:15 10/20/16 15:14 10/12/16 11:10 1 APPLN Heparin Sodium (Porcine) 5 ml 5 ml PRN PRN FLUSH 09/24/16 15:15 10/24/16 15:14 10/17/16 05:27 15 ML Lorazepam/Syringe (Ativan Inj/ Syringe) 0.5 ml @ 0.5 mls/min Q8H PRN IV 09/30/16 21:30 10/30/16 21:29 10/15/16 00:06 0.5 MLS/MIN Fluconazole (Consult) 1 ea UD PRN N/A 09/30/16 21:45 10/17/16 11:59 Sodium Biphosphate/ Sodium Phosphate 132 ml DAILY PRN SD 10/01/16 07:00 10/31/16 06:59 10/05/16 14:47 132 ML Lidocaine HCl 60 ml/ Diphenhydramine HCl 150 mg/Al Hydroxide/Mg Hydroxide 60 ml/ Glycerin 60 ml/ Barcode 1 ea AC MT 10/01/16 16:15 10/31/16 16:14 10/17/16 08:15 5 ML Daptomycin/Sodium Chloride (Cubicin IV/Nss 50ml) 63 ml @ 120 mls/hr Q24H IV 10/03/16 10:00 11/02/16 08:59 10/17/16 09:51 120 MLS/HR Enteral Nutritional Formula (Boost Breeze Nutritional Drink) 1 box BID17 PO 10/08/16 19:00 11/07/16 18:59 10/17/16 09:52 1 BOX Magnesium Chloride (Slow-Mag Tab) 64 mg BID PO 10/09/16 21:00 11/08/16 20:59 10/17/16 08:22 64 MG Docusate Sodium (coLACE CAP) 100 mg BID PO 10/10/16 21:00 11/09/16 20:59 10/17/16 08:17 100 MG Fluoxetine HCl (Prozac Cap) 20 mg QAM PO 10/11/16 09:00 11/10/16 08:59 10/17/16 08:20 20 MG Pantoprazole Sodium (Protonix Tab) 40 mg BID PO 10/10/16 21:00 11/09/16 20:59 10/17/16 08:18 40 MG Divalproex Sodium (Depakote Delay Rel Tab) 250 mg BID PO 10/10/16 21:00 11/09/16 20:59 10/17/16 08:20 250 MG Gabapentin (Neurontin Cap) 100 mg BID PO 10/10/16 21:00 11/09/16 20:59 10/17/16 08:23 100 MG Fluconazole (Diflucan Tab) 400 mg DAILY@1200 PO 10/12/16 12:00 10/17/16 11:59 10/16/16 12:30 400 MG Tramadol HCl (Ultram Tab) 25 mg Q6H PRN PO 10/12/16 00:30 11/11/16 00:29 10/14/16 22:13 25 MG Heparin Sodium (Porcine) (Heparin Sq 5000 Unit/0.5ml) 5,000 unit Q12 SQ 10/12/16 21:00 11/11/16 20:59 10/17/16 08:28 5,000 UNIT Ondansetron HCl (Zofran Odt) 4 mg Q6H PRN PO 10/13/16 14:30 11/12/16 14:29 10/15/16 09:58 4 MG Vitamin B Complex (Vitamin B Complex) 1 tab DAILY@1200 PO 10/14/16 12:00 11/13/16 11:59 10/16/16 12:30 1 TAB Ascorbic Acid (Vitamin C Tab) 1,000 mg DAILY@1200 PO 10/14/16 12:00 11/13/16 11:59 10/16/16 12:31 1,000 MG Cholecalciferol (Vitamin D Tab) 1,000 inter.unit DAILY@1200 PO 10/14/16 12:00 11/13/16 11:59 10/16/16 12:31 1,000 INTER.UNIT Multivitamins/ Minerals (Multivitamin W/ Minerals Tab) 1 tab DAILY@1200 PO 10/14/16 12:00 11/13/16 11:59 10/16/16 12:30 1 TAB Zinc Sulfate (Zinc Sulfate Cap) 220 mg DAILY@1200 PO 10/14/16 12:00 11/13/16 11:59 10/16/16 12:30 220 MG Potassium Chloride (Klor-Con Tab) 20 meq QAM PO 10/17/16 09:00 11/16/16 08:59 10/17/16 08:18 20 MEQ Objective Vital Signs Date Time Temp Pulse Resp B/P Pulse Ox O2 Delivery O2 Flow Rate FiO2 10/17/16 08:07 Room Air 10/17/16 07:08 36.7 78 19 138/75 96 Room Air 10/16/16 23:14 36.8 78 14 125/73 99 CPAP 10/16/16 19:45 Room Air CPAP 10/16/16 16:06 Room Air 10/16/16 15:05 37.0 82 17 119/58 98 Room Air Physical Exam General Appearance: WD/WN, no apparent distress Eyes: normal inspection, EOMI, sclerae normal ENT: normal ENT inspection, + pertinent finding (oral ulcers improved) Neck: supple, no adenopathy, trachea midline Respiratory/Chest: chest non-tender, lungs clear, normal breath sounds, no respiratory distress Cardiovascular: regular rate, rhythm, no gallop, no murmur Abdomen: normal bowel sounds, non tender, soft, no organomegaly Extremities: non-tender, no calf tenderness, + pertinent finding (wound VAC left hip) Neurologic/Psychiatric: alert, oriented x 3 Skin: normal color, warm/dry, no rash Lymphatic: no adenopathy Laboratory Results Last 24 Hours Test 10/17/16 05:25 White Blood Count 5.11 K/uL Red Blood Count 2.57 M/uL Hemoglobin 8.0 g/dL Hematocrit 24.4 % Mean Corpuscular Volume 94.9 fL Mean Corpuscular Hemoglobin 31.1 pg Mean Corpuscular Hemoglobin Concent 32.8 g/dl RDW Standard Deviation 67.0 fL RDW Coefficient of Variation 19.5 % Platelet Count 345 K/uL Mean Platelet Volume 8.9 fL Sodium Level 138 mmol/L Potassium Level 4.2 mmol/L Chloride Level 101 mmol/L Carbon Dioxide Level 30 mmol/L Anion Gap 7.0 mmol/L Blood Urea Nitrogen 16 mg/dl Creatinine 0.70 mg/dl Est Creatinine Clear Calc Drug Dose 81.6 ml/min Estimated GFR () 99.6 Estimated GFR (Non- 86.0 BUN/Creatinine Ratio 23.2 Random Glucose 95 mg/dl Calcium Level 9.0 mg/dl Assessment and Plan 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 She will continue daptomycin for a planned 6 week course of therapy, unable to use rifampin because of elevation of liver enzymes. These have returned to normal. Continue to monitor CPK levels while on daptomycin. Would like to see in 2 weeks after discharge.
[2016-10-17] MEDS: CHOLECALCIFEROL 1000 INTER.UNIT TAB PO SCH (12:16)
[2016-10-17] MEDS: ASCORBIC ACID 500 MG TAB PO SCH (12:16)
[2016-10-17] MEDS: CEROVITE ADV FORMULA TAB PO SCH (12:16)
[2016-10-17] MEDS: ZINC SULFATE 220 MG CAP PO SCH (12:17)
[2016-10-17] MEDS: VITAMIN B COMPLEX TAB PO SCH (12:17)
--- NOTE | 2016-10-17 12:46 | Progress Note ---
Internal Med Progress Note Date of Service: October 17, 2016. Provider Documentation: SUBJECTIVE: Patient is feeling very well today. Sitting in chair and having her lunch. Denies any c/o pain at surgical site, fever, chills, abdominal pain, chest pain , SOB Tolerating PO. Has a wound vac + OBJECTIVE: Vital Signs-as noted below Exam: General Appearance:Moderately built and nourished, no apparent distress ENT:labial and tongue ulcerations improved Neck: supple Respiratory/Chest: Decreased breath sounds, No wheezing, crackles Cardiovascular: S1, S2, + systolic murmur Extremities/Musculoskelatal: Left hip - Wound vac + , 1+ edema Skin: normal color, warm, desquamation of hands Lab data as noted below. ASSESSMENT & PLAN: ASSESSMENT & PLAN : LEFT HIP MRSA INFECTION : Initially received IV vancomycin x 4 doses. Rifampin discontinued due to elevated LFT's Currently on daptomycin since 09/19 secondary to ATN- to be continued for total 6 weeks (Day # 30) S/P Hip irrigation 09/19; S/P I & D abscess left hip with irrigating wound vac placement by Dr Gabriel on 10/13/16 -Monitor CPK levels while on Dapto ( q weekly-) : CPK: WNL -Continue wound care . Wound vac placed on 10/13 . Continued on it x 48 hours and than changed to regular wound vac. -ID, Ortho, Wound care on board. Cleared for discharge by ortho, wound care, ID ALBERT/ATN- Resolved multifactorial. S/P Hemodialysis . Perm cath placed 09/29. Removal of hemodialysis catheter:10/04 -Nephrology signed off HYPOKALEMIA/HYPOMAGNESEMIA- Resolved -Continue magnesium supplements ANEMIA -S/P 2 units PRBC's. -Hb stable. Consider transfusion if drops < 7 -Anemia probably multifactorial. -Monitor H&H, Transfuse PRN ENCEPHALOPATHY- Resolved -Secondary to infection SEVERE PROTEIN-CALORIE MALNUTRITION Was unable to take oral nutrition due to stomatitis. -Advanced diet- tolerating PO -NG feedings discontinued on 10/10/16. -Marble Mason on board. To do Pre albumin/CRP on a weekly q basis () to access nutritional status. 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 -Completed IV acyclovir for total 7 days. BIPOLAR DISORDER On Depakote ER as able to swallow pills ? DEMENTIA Dr Draper discussed with patient and daughter. Had some problems with memory when receiving chemo in past, but never had tracy dementia -Stable SLEEP APNEA -Continue O2. -Resume CPAP UTI Urine culture: Shraddha. -Continue fluconazole to complete the course till 10/13/16 DVT PX Heparin SQ>> Held due to some bleeding- ? hematuria, seems more likely to be vaginal --> re started heparin SQ SCDs CODE STATUS Full code DISPOSITION -Veterinary Surgery Technologist consulted -Cleared for discharge by ortho, wound care, ID. OKAY TO DISCHARGE FROM [facility]ICAL [facility] OF [facility], AWAITING PLACEMENT- PLAN IS FOR Spinal Modulation [facility] TODAY OR TOMORROW once antibiotics auth done Vital Signs: Date Time Temp Pulse Resp B/P Pulse Ox O2 Delivery O2 Flow Rate FiO2 10/17/16 08:07 Room Air 10/17/16 07:08 36.7 78 19 138/75 96 Room Air 10/16/16 23:14 36.8 78 14 125/73 99 CPAP 10/16/16 19:45 Room Air CPAP 10/16/16 16:06 Room Air 10/16/16 15:05 37.0 82 17 119/58 98 Room Air Lab Results: Results Past 24 Hours Test 10/17/16 05:25 Range/Units White Blood Count 5.11 4.8-10.8 K/uL Red Blood Count 2.57 4.2-5.4 M/uL Hemoglobin 8.0 12.0-16.0 g/dL Hematocrit 24.4 37-47 % Mean Corpuscular Volume 94.9 80-100 fL Mean Corpuscular Hemoglobin 31.1 25-34 pg Mean Corpuscular Hemoglobin Concent 32.8 32-36 g/dl RDW Standard Deviation 67.0 36.4-46.3 fL RDW Coefficient of Variation 19.5 11.5-14.5 % Platelet Count 345 130-400 K/uL Mean Platelet Volume 8.9 7.4-10.4 fL Sodium Level 138 136-145 mmol/L Potassium Level 4.2 3.5-5.1 mmol/L Chloride Level 101 98-107 mmol/L Carbon Dioxide Level 30 21-32 mmol/L Anion Gap 7.0 3-11 mmol/L Blood Urea Nitrogen 16 7-18 mg/dl Creatinine 0.70 0.60-1.20 mg/dl Est Creatinine Clear Calc Drug Dose 81.6 ml/min Estimated GFR () 99.6 Estimated GFR (Non- 86.0 BUN/Creatinine Ratio 23.2 10-20 Random Glucose 95 70-99 mg/dl Calcium Level 9.0 8.5-10.1 mg/dl
[2016-10-17 16:13] VITALS: BP 137/64; PULSE 91; TEMP 36.8; O2SAT 93
[2016-10-17] MEDS: MICONAZOLE NITRATE POWDER 43 GM EXT PRN (17:18)
[2016-10-18] VITALS (9 sets, daily range): BP systolic 99–149; BP diastolic 57–79; PULSE 85–95; TEMP 36.8–37.1; O2SAT 93–99
[2016-10-18 05:50] LABS: HEMATOCRIT 24.7 % (37-47); MEAN CORPUSCULAR HEMOGLOBIN 30.4 pg (25-34); MEAN PLATELET VOLUME 9.4 fL (7.4-10.4); PLATELET COUNT 376 K/uL (130-400); WHITE BLOOD COUNT 4.99 K/uL (4.8-10.8)
[2016-10-18] MEDS: LIDOCAINE HCL 2% VISCOUS SOLN 60 ML, DiphenhydrAMINE HCL SYRUP 150 MG, ALUMINUM/MAGNESI... MT SCH ×12 (08:31→17:43)
[2016-10-18] MEDS: GABAPENTIN 100 MG CAP PO SCH ×2 (08:32→22:56)
[2016-10-18] MEDS: DIVALPROEX SODIUM 250 MG DELAY REL TAB PO SCH ×2 (08:32→22:55)
[2016-10-18] MEDS: PANTOprazole SOD 40 MG TAB PO SCH ×2 (08:32→22:56)
[2016-10-18] MEDS: DOCUSATE SODIUM 100 MG CAP PO SCH ×2 (08:33→22:55)
[2016-10-18] MEDS: FLUOXETINE HCL 20 MG CAP PO SCH (08:33)
[2016-10-18] MEDS: POTASSIUM CHLORIDE 20 MEQ TABCR PO SCH (08:33)
[2016-10-18] MEDS: MAGNESIUM CHLORIDE 64MG DELAYED REL TAB PO SCH ×2 (08:34→22:57)
[2016-10-18] MEDS: HEPARIN SOD 5000 UNIT/0.5 ML CARP SQ SCH ×2 (08:39→22:59)
[2016-10-18] MEDS: BOOST BREEZE NUTRITION DRINK 1 BOX PO SCH ×2 (10:32→17:42)
[2016-10-18] MEDS: DAPTOmycin IV 650 MG in SODIUM CHLORIDE 0.9% 50ML 50 ML IV SCH (10:32)
[2016-10-18] MEDS: VITAMIN B COMPLEX TAB PO SCH (12:29)
[2016-10-18] MEDS: ZINC SULFATE 220 MG CAP PO SCH (12:29)
[2016-10-18] MEDS: CEROVITE ADV FORMULA TAB PO SCH (12:29)
[2016-10-18] MEDS: CHOLECALCIFEROL 1000 INTER.UNIT TAB PO SCH (12:29)
[2016-10-18] MEDS: ASCORBIC ACID 500 MG TAB PO SCH (12:29)
--- NOTE | 2016-10-18 13:29 | Infectious Disease Progress Nt ---
Progress Note Date of Service October 18, 2016. Subjective Pt evaluation today including: conversation w/ patient, physical exam, chart review, lab review, review of studies, conversation w/ senior sales consultant, review of inpatient medication list Offers no new complaints today. Pain controlled with analgesics. No fever. Continues to tolerate daptomycin without apparent difficulty. CPK has been within normal limits. Continues with wound VAC drainage. All Other Systems: Reviewed and Negative Medications Current Inpatient Medications Medications (Trade) Dose Ordered Sig/Quan Route Start Time Stop Time Status Last Admin Dose Admin Daptomycin (Consult) 1 ea UD PRN N/A 09/19/16 08:30 10/19/16 08:29 Miconazole Nitrate (Desenex Powder) 1 appln PRN PRN EXT 09/20/16 15:15 10/20/16 15:14 10/17/16 17:18 1 APPLN Heparin Sodium (Porcine) 5 ml 5 ml PRN PRN FLUSH 09/24/16 15:15 10/24/16 15:14 10/18/16 05:13 15 ML Lorazepam/Syringe (Ativan Inj/ Syringe) 0.5 ml @ 0.5 mls/min Q8H PRN IV 09/30/16 21:30 10/30/16 21:29 10/15/16 00:06 0.5 MLS/MIN Sodium Biphosphate/ Sodium Phosphate 132 ml DAILY PRN NE 10/01/16 07:00 10/31/16 06:59 10/05/16 14:47 132 ML Lidocaine HCl 60 ml/ Diphenhydramine HCl 150 mg/Al Hydroxide/Mg Hydroxide 60 ml/ Glycerin 60 ml/ Barcode 1 ea AC MT 10/01/16 16:15 10/31/16 16:14 10/18/16 12:28 5 ML Daptomycin/Sodium Chloride (Cubicin IV/Nss 50ml) 63 ml @ 120 mls/hr Q24H IV 10/03/16 10:00 11/02/16 08:59 10/18/16 10:32 120 MLS/HR Enteral Nutritional Formula (Boost Breeze Nutritional Drink) 1 box BID17 PO 10/08/16 19:00 11/07/16 18:59 10/18/16 10:32 1 BOX Magnesium Chloride (Slow-Mag Tab) 64 mg BID PO 10/09/16 21:00 11/08/16 20:59 10/18/16 08:34 64 MG Docusate Sodium (coLACE CAP) 100 mg BID PO 10/10/16 21:00 11/09/16 20:59 10/18/16 08:33 100 MG Fluoxetine HCl (Prozac Cap) 20 mg QAM PO 10/11/16 09:00 11/10/16 08:59 10/18/16 08:33 20 MG Pantoprazole Sodium (Protonix Tab) 40 mg BID PO 10/10/16 21:00 11/09/16 20:59 10/18/16 08:32 40 MG Divalproex Sodium (Depakote Delay Rel Tab) 250 mg BID PO 10/10/16 21:00 11/09/16 20:59 10/18/16 08:32 250 MG Gabapentin (Neurontin Cap) 100 mg BID PO 10/10/16 21:00 11/09/16 20:59 10/18/16 08:32 100 MG Tramadol HCl (Ultram Tab) 25 mg Q6H PRN PO 10/12/16 00:30 11/11/16 00:29 10/14/16 22:13 25 MG Heparin Sodium (Porcine) (Heparin Sq 5000 Unit/0.5ml) 5,000 unit Q12 SQ 10/12/16 21:00 11/11/16 20:59 10/18/16 08:39 5,000 UNIT Ondansetron HCl (Zofran Odt) 4 mg Q6H PRN PO 10/13/16 14:30 11/12/16 14:29 10/15/16 09:58 4 MG Vitamin B Complex (Vitamin B Complex) 1 tab DAILY@1200 PO 10/14/16 12:00 11/13/16 11:59 10/18/16 12:29 1 TAB Ascorbic Acid (Vitamin C Tab) 1,000 mg DAILY@1200 PO 10/14/16 12:00 11/13/16 11:59 10/18/16 12:29 1,000 MG Cholecalciferol (Vitamin D Tab) 1,000 inter.unit DAILY@1200 PO 10/14/16 12:00 11/13/16 11:59 10/18/16 12:29 1,000 INTER.UNIT Multivitamins/ Minerals (Multivitamin W/ Minerals Tab) 1 tab DAILY@1200 PO 10/14/16 12:00 11/13/16 11:59 10/18/16 12:29 1 TAB Zinc Sulfate (Zinc Sulfate Cap) 220 mg DAILY@1200 PO 10/14/16 12:00 11/13/16 11:59 10/18/16 12:29 220 MG Potassium Chloride (Klor-Con Tab) 20 meq QAM PO 10/17/16 09:00 11/16/16 08:59 10/18/16 08:33 20 MEQ Ferrous Sulfate (Feosol Tab) 325 mg QAM PO 10/19/16 09:00 11/18/16 08:59 Objective Vital Signs Date Time Temp Pulse Resp B/P Pulse Ox O2 Delivery O2 Flow Rate FiO2 10/18/16 08:39 36.9 95 16 126/77 97 Room Air 10/18/16 08:15 Room Air 10/18/16 00:15 CPAP 10/18/16 00:05 36.8 85 16 127/74 99 CPAP 10/17/16 16:45 Room Air 10/17/16 16:13 36.8 91 22 137/64 93 Room Air Physical Exam General Appearance: WD/WN, no apparent distress Eyes: normal inspection, sclerae normal ENT: normal ENT inspection, pharynx normal Neck: supple, no adenopathy, trachea midline Respiratory/Chest: lungs clear, normal breath sounds, no respiratory distress Cardiovascular: regular rate, rhythm, no gallop, no murmur Abdomen: normal bowel sounds, non tender, soft, no organomegaly Extremities: non-tender, no calf tenderness Neurologic/Psychiatric: alert, oriented x 3 Skin: normal color, no rash, + pertinent finding (Wound VAC in place left hip) Lymphatic: no adenopathy Laboratory Results Last 24 Hours Test 10/18/16 05:15 White Blood Count 4.99 K/uL Red Blood Count 2.60 M/uL Hemoglobin 7.9 g/dL Hematocrit 24.7 % Mean Corpuscular Volume 95.0 fL Mean Corpuscular Hemoglobin 30.4 pg Mean Corpuscular Hemoglobin Concent 32.0 g/dl RDW Standard Deviation 66.0 fL RDW Coefficient of Variation 19.1 % Platelet Count 376 K/uL Mean Platelet Volume 9.4 fL Assessment and Plan 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 She will continue daptomycin for a planned 6 week course of therapy, unable to use rifampin because of elevation of liver enzymes. . Continue to monitor CPK levels while on daptomycin. Would like to see his outpatient prior to discontinuation of daptomycin. Still awaiting insurance authorization for rehab.
--- NOTE | 2016-10-18 14:59 | Progress Note ---
Internal Med Progress Note Date of Service: October 18, 2016. Provider Documentation: SUBJECTIVE: resting comfortably denies any pain afebrile awaiting placement denies sob OBJECTIVE: Vital Signs-as noted below Exam: General-alert and awake and oriented x 3 ENT-normal hearing Neck-no neck masses Lungs-cta b/l no wheezing or crackles Heart-s1 and s2 heard regular rate and rhythm no murmurs Abdomen-soft bowel sounds present non tender no distension Extremities- no edema s/p left hip I and D and on wound vac Neuro-alert and awake oriented x 3 moves extremities Lab data as noted below. ASSESSMENT & PLAN: 70F presented with left hip infection post recent left EFREM and was s/p I and D. Cultures growing MRSA. Hospital day complicated by ARF, unresponsiveness after procedure, possible uremic encephalopathy and currently slowly improving with dialysis. ON IV DAPTOMYCIN(PLAN FOR 6-8 WEEKS PER ID) AND RIFAMPIN FOR MRSA. Rifampin stopped secondary to elevated LFT's.Received ROCEPHIN and Diflucan FOR UTI.Was ON NG TUBE FEEDING. Completed iv Acyclovir for orolabial herpes lesions. Improved. Dialysis stopped. Plan for 6 weeks of iv daptomycin with weekly cpk levels .s/p wound vac for left hip. Awaiting rehab placement. LEFT HIP MRSA INFECTION : Post surgery Was on IV vancomycin x 4 doses. Rifampin discontinued due to elevated LFT's Currently on Iv daptomycin since 09/19 secondary to Renal failure.- to be continued for total 6 weeks as per ID. (Day # 30) S/P Hip Irrigation on 09/19; S/P I & D abscess left hip with irrigating wound vac placement by Dr Gabriel on 10/13/16 To Monitor CPK levels while on Daptomycin ( q weekly-) To Continue wound care . ID, Ortho, Wound care on board. Cleared for discharge by ortho, wound care, ID Await placement f/u with wound clinic, ID and Ortho ALBERT/ATN- Resolved multifactorial. S/P Hemodialysis . Perm cath placed 09/29. Removal of hemodialysis catheter:10/04 Nephrology signed off Labs stable HYPOKALEMIA/HYPOMAGNESEMIA- Resolved On magnesium supplements ANEMIA Acute blood loss post op? From illness? S/P 2 units PRBC's. hb 7.9 today will transfuse one more unit ENCEPHALOPATHY- from infection and ARF resolved SEVERE PROTEIN-CALORIE MALNUTRITION Was unable to take oral nutrition due to stomatitis. To Advanced diet- tolerating PO Was on NG feedings which were discontinued on 10/10/16. Motorcycle Mechanic on board. To do Pre albumin/CRP on a weekly q basis () to access nutritional status. 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 Completed IV acyclovir for total 7 days. Improved BIPOLAR DISORDER On Depakote ER as able to swallow pills ? DEMENTIA Dr Draper discussed with patient and daughter. Had some problems with memory when receiving chemo in past, but never had tracy dementia seems stable SLEEP APNEA To Continue O2. CPAP UTI Urine culture: Shraddha. completed one week of fluconazole DVT PX Heparin SQ>> Held due to some bleeding- ? hematuria, seems more likely to be vaginal --> re started heparin SQ SCDs CODE STATUS Full code DISPOSITION Solder Leveler Printed Circuit Boards consulted await rehab placement Vital Signs: Date Time Temp Pulse Resp B/P Pulse Ox O2 Delivery O2 Flow Rate FiO2 10/18/16 14:25 36.9 93 18 136/76 10/18/16 08:39 36.9 95 16 126/77 97 Room Air 10/18/16 08:15 Room Air 10/18/16 00:15 CPAP 10/18/16 00:05 36.8 85 16 127/74 99 CPAP 10/17/16 16:45 Room Air 10/17/16 16:13 36.8 91 22 137/64 93 Room Air Lab Results: Results Past 24 Hours Test 10/18/16 05:15 Range/Units White Blood Count 4.99 4.8-10.8 K/uL Red Blood Count 2.60 4.2-5.4 M/uL Hemoglobin 7.9 12.0-16.0 g/dL Hematocrit 24.7 37-47 % Mean Corpuscular Volume 95.0 80-100 fL Mean Corpuscular Hemoglobin 30.4 25-34 pg Mean Corpuscular Hemoglobin Concent 32.0 32-36 g/dl RDW Standard Deviation 66.0 36.4-46.3 fL RDW Coefficient of Variation 19.1 11.5-14.5 % Platelet Count 376 130-400 K/uL Mean Platelet Volume 9.4 7.4-10.4 fL
[2016-10-18] MEDS: TRAMADOL HCL 50 MG TAB PO PRN (17:44)
--- NOTE | 2016-10-18 20:28 | PROGRESS NOTE ---
DATE: 10/18/2016 SUBJECTIVE: A 71-year-old white female now 4 weeks out from I\T\D of an infected total hip and polyethylene head exchange. She continues to make gradual progress. No complaints of hip pain. It was pretty painful with a Wound VAC changed yesterday. OBJECTIVE: VITAL SIGNS: Temperature 36.8. Vital signs stable. PHYSICAL EXAMINATION: GENERAL: Reveals a pleasant elderly female. She is sitting up in bed, looks pretty comfortable. EXTREMITIES: Examination of left hip reveals the leg lengths to be equal. Hip is located. The wound VAC is in place. No signs of problems. LABORATORY DATA: White cell count 4.99. Hemoglobin 7.9. Hematocrit 24.7. Electrolytes are stable. ASSESSMENT: A 71-year-old white female 4 weeks out from incision and drainage of an infected total hip wound with polyethylene exchange and head exchange. She is doing well. The wound looks to be doing better with a wound VAC in place. She needs 2 more weeks of IV antibiotics followed by at least 6 months of p.o. antibiotics. PLAN: 1. DVT prophylaxis including thigh-high TEDs, SCDs, and subQ heparin. She can be converted aspirin once at the hospital. 2. PT/OT. She can fully weightbear as tolerated. Total hip precautions. 3. Has wound care as per the wound care team. 4. IV antibiotics, 2 more weeks of IV antibiotics followed by 6 months of p.o. 5. Disposition: She is orthopedically acceptable for discharge at any time medically stable and can find placement. Any orthopedic questions can be directed to me at [phone]. I should see her 2 weeks upon after discharge or likely when she is converting from IV to p.o. antibiotics.
[2016-10-19 06:33] LABS: C-REACTIVE PROTEIN 1.99 mg/dl (0-0.29); CREATININE 0.7 mg/dl (0.60-1.20)
[2016-10-19 06:38] LABS: PREALBUMIN 24.4 mg/dl (20-40)
[2016-10-19 08:57] VITALS: BP 132/69; PULSE 84; TEMP 37.6; O2SAT 98
[2016-10-19] MEDS: LIDOCAINE HCL 2% VISCOUS SOLN 60 ML, DiphenhydrAMINE HCL SYRUP 150 MG, ALUMINUM/MAGNESI... MT SCH ×12 (09:01→17:48)
[2016-10-19] MEDS: GABAPENTIN 100 MG CAP PO SCH ×2 (09:02→20:48)
[2016-10-19] MEDS: ASCORBIC ACID 500 MG TAB PO SCH (09:02)
[2016-10-19] MEDS: DOCUSATE SODIUM 100 MG CAP PO SCH ×2 (09:02→20:47)
[2016-10-19] MEDS: FERROUS SULFATE 325 MG TAB PO SCH (09:03)
[2016-10-19] MEDS: PANTOprazole SOD 40 MG TAB PO SCH ×2 (09:03→20:47)
[2016-10-19] MEDS: POTASSIUM CHLORIDE 20 MEQ TABCR PO SCH (09:03)
[2016-10-19] MEDS: FLUOXETINE HCL 20 MG CAP PO SCH (09:03)
[2016-10-19] MEDS: MAGNESIUM CHLORIDE 64MG DELAYED REL TAB PO SCH ×2 (09:03→20:48)
[2016-10-19] MEDS: DIVALPROEX SODIUM 250 MG DELAY REL TAB PO SCH ×2 (09:04→20:49)
[2016-10-19] MEDS: HEPARIN SOD 5000 UNIT/0.5 ML CARP SQ SCH ×2 (09:06→20:53)
[2016-10-19 10:07] LABS: HEMATOCRIT 26.5 % (37-47)
[2016-10-19] MEDS: DAPTOmycin IV 650 MG in SODIUM CHLORIDE 0.9% 50ML 50 ML IV SCH (10:25)
[2016-10-19] MEDS: ACETAMINOPHEN 325 MG TAB PO PRN ×2 (10:25→15:37)
[2016-10-19] MEDS: BOOST BREEZE NUTRITION DRINK 1 BOX PO SCH ×2 (10:26→17:00)
[2016-10-19] MEDS: ZINC SULFATE 220 MG CAP PO SCH (11:42)
[2016-10-19] MEDS: CEROVITE ADV FORMULA TAB PO SCH (11:42)
[2016-10-19] MEDS: CHOLECALCIFEROL 1000 INTER.UNIT TAB PO SCH (11:42)
[2016-10-19] MEDS: VITAMIN B COMPLEX TAB PO SCH (11:42)
[2016-10-19] MEDS ORDERED: BISACODYL 10 MG SUPP PR ONE (13:15)
[2016-10-19] MEDS ORDERED: LACTULOSE SYRUP 30 GM/45 ML UDP PO ONE (13:15)
--- NOTE | 2016-10-19 15:52 | Progress Note ---
Internal Med Progress Note Date of Service: October 19, 2016. Provider Documentation: SUBJECTIVE: sitting on the chair and eating lunch denies any pain ambulated ok no dizziness today no sob afebrile OBJECTIVE: Vital Signs-as noted below Exam: General-alert and awake and oriented x 3 ENT-normal hearing Neck-no neck masses Lungs-cta b/l no wheezing or crackles Heart-s1 and s2 heard regular rate and rhythm no murmurs Abdomen-soft bowel sounds present non tender no distension Extremities- no edema s/p left hip I and D and on wound vac Neuro-alert and awake oriented x 3 moves extremities Lab data as noted below. ASSESSMENT & PLAN: 70F presented with left hip infection post recent left EFREM and was s/p I and D. Cultures growing MRSA. Hospital day complicated by ARF, unresponsiveness after procedure, possible uremic encephalopathy and currently slowly improving with dialysis. ON IV DAPTOMYCIN(PLAN FOR 6-8 WEEKS PER ID) AND RIFAMPIN FOR MRSA. Rifampin stopped secondary to elevated LFT's.Received ROCEPHIN and Diflucan FOR UTI.Was ON NG TUBE FEEDING. Completed iv Acyclovir for orolabial herpes lesions. Improved. Dialysis stopped. Plan for 6 weeks of iv daptomycin with weekly cpk levels .s/p wound vac for left hip. Awaiting rehab placement. LEFT HIP MRSA INFECTION : Post surgery Was on IV vancomycin x 4 doses. Rifampin discontinued due to elevated LFT's Currently on Iv daptomycin since 09/19 secondary to Renal failure.- to be continued for total 6 weeks as per ID. (Day # 30) S/P Hip Irrigation on 09/19; S/P I & D abscess left hip with irrigating wound vac placement by Dr Gabriel on 10/13/16 To Monitor CPK levels while on Daptomycin ( q weekly-) To Continue wound care . ID, Ortho, Wound care on board. Cleared for discharge by ortho, wound care, ID Await placement-possibly SNF f/u with wound clinic, ID and Ortho stable ALBERT/ATN- Resolved multifactorial. S/P Hemodialysis . Perm cath placed 09/29. Removal of hemodialysis catheter:10/04 Nephrology signed off Labs stable HYPOKALEMIA/HYPOMAGNESEMIA- Resolved On magnesium supplements ANEMIA Acute blood loss post op? From illness? S/P 2 units PRBC's. hb 7.9 10/18/16 s/p Transfuse one more unit hb 9.0 today ENCEPHALOPATHY- from infection and ARF resolved SEVERE PROTEIN-CALORIE MALNUTRITION Was unable to take oral nutrition due to stomatitis. To Advanced diet- tolerating PO Was on NG feedings which were discontinued on 10/10/16. Director Drug on board. To do Pre albumin/CRP on a weekly q basis () to access nutritional status. 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 Completed IV acyclovir for total 7 days. Improved BIPOLAR DISORDER On Depakote ER as able to swallow pills ? DEMENTIA Dr Draper discussed with patient and daughter. Had some problems with memory when receiving chemo in past, but never had tracy dementia seems stable SLEEP APNEA To Continue O2. CPAP UTI Urine culture: Shraddha. completed one week of fluconazole DVT PX Heparin SQ>> Held due to some bleeding- ? hematuria, seems more likely to be vaginal --> re started heparin SQ SCDs CODE STATUS Full code DISPOSITION Operations Officer Afloat consulted await rehab/snf placement Vital Signs: Date Time Temp Pulse Resp B/P Pulse Ox O2 Delivery O2 Flow Rate FiO2 10/19/16 08:57 37.6 84 18 132/69 98 Room Air 10/19/16 08:30 Room Air 10/18/16 23:45 CPAP 10/18/16 23:15 36.8 87 18 149/69 98 BiPAP 2.0 10/18/16 17:30 Room Air 10/18/16 17:04 36.8 87 18 143/79 10/18/16 16:15 36.9 95 18 129/57 93 Room Air Lab Results: Results Past 24 Hours Test 10/19/16 05:15 Range/Units Hemoglobin 9.0 12.0-16.0 g/dL Hematocrit 26.5 37-47 % Creatinine 0.70 0.60-1.20 mg/dl Est Creatinine Clear Calc Drug Dose 81.6 ml/min Estimated GFR () 99.6 Estimated GFR (Non- 86.0 C-Reactive Protein 1.99 0-0.29 mg/dl Prealbumin 24.4 20-40 mg/dl
--- NOTE | 2016-10-19 17:48 | Infectious Disease Progress Nt ---
Progress Note Date of Service October 19, 2016. Subjective Pt evaluation today including: conversation w/ patient, physical exam, chart review, lab review, review of studies, conversation w/ outbound sales consultant, review of inpatient medication list Remains afebrile. Tolerating daptomycin. No new complaints. Pain controlled. All Other Systems: Reviewed and Negative Medications Current Inpatient Medications Medications (Trade) Dose Ordered Sig/Quan Route Start Time Stop Time Status Last Admin Dose Admin Miconazole Nitrate (Desenex Powder) 1 appln PRN PRN EXT 09/20/16 15:15 10/20/16 15:14 10/17/16 17:18 1 APPLN Heparin Sodium (Porcine) 5 ml 5 ml PRN PRN FLUSH 09/24/16 15:15 10/24/16 15:14 10/19/16 11:42 5 ML Lorazepam/Syringe (Ativan Inj/ Syringe) 0.5 ml @ 0.5 mls/min Q8H PRN IV 09/30/16 21:30 10/30/16 21:29 10/15/16 00:06 0.5 MLS/MIN Sodium Biphosphate/ Sodium Phosphate 132 ml DAILY PRN HI 10/01/16 07:00 10/31/16 06:59 10/05/16 14:47 132 ML Lidocaine HCl 60 ml/ Diphenhydramine HCl 150 mg/Al Hydroxide/Mg Hydroxide 60 ml/ Glycerin 60 ml/ Barcode 1 ea AC MT 10/01/16 16:15 10/31/16 16:14 10/19/16 12:25 5 ML Daptomycin/Sodium Chloride (Cubicin IV/Nss 50ml) 63 ml @ 120 mls/hr Q24H IV 10/03/16 10:00 11/02/16 08:59 10/19/16 10:25 120 MLS/HR Enteral Nutritional Formula (Boost Breeze Nutritional Drink) 1 box BID17 PO 10/08/16 19:00 11/07/16 18:59 10/19/16 10:26 1 BOX Magnesium Chloride (Slow-Mag Tab) 64 mg BID PO 10/09/16 21:00 11/08/16 20:59 10/19/16 09:03 64 MG Docusate Sodium (coLACE CAP) 100 mg BID PO 10/10/16 21:00 11/09/16 20:59 10/19/16 09:02 100 MG Fluoxetine HCl (Prozac Cap) 20 mg QAM PO 10/11/16 09:00 11/10/16 08:59 10/19/16 09:03 20 MG Pantoprazole Sodium (Protonix Tab) 40 mg BID PO 10/10/16 21:00 11/09/16 20:59 10/19/16 09:03 40 MG Divalproex Sodium (Depakote Delay Rel Tab) 250 mg BID PO 10/10/16 21:00 11/09/16 20:59 10/19/16 09:04 250 MG Gabapentin (Neurontin Cap) 100 mg BID PO 10/10/16 21:00 11/09/16 20:59 10/19/16 09:02 100 MG Tramadol HCl (Ultram Tab) 25 mg Q6H PRN PO 10/12/16 00:30 11/11/16 00:29 10/18/16 17:44 25 MG Heparin Sodium (Porcine) (Heparin Sq 5000 Unit/0.5ml) 5,000 unit Q12 SQ 10/12/16 21:00 11/11/16 20:59 10/19/16 09:06 5,000 UNIT Ondansetron HCl (Zofran Odt) 4 mg Q6H PRN PO 10/13/16 14:30 11/12/16 14:29 10/15/16 09:58 4 MG Vitamin B Complex (Vitamin B Complex) 1 tab DAILY@1200 PO 10/14/16 12:00 11/13/16 11:59 10/19/16 11:42 1 TAB Ascorbic Acid (Vitamin C Tab) 1,000 mg DAILY@1200 PO 10/14/16 12:00 11/13/16 11:59 10/19/16 09:02 1,000 MG Cholecalciferol (Vitamin D Tab) 1,000 inter.unit DAILY@1200 PO 10/14/16 12:00 11/13/16 11:59 10/19/16 11:42 1,000 INTER.UNIT Multivitamins/ Minerals (Multivitamin W/ Minerals Tab) 1 tab DAILY@1200 PO 10/14/16 12:00 11/13/16 11:59 10/19/16 11:42 1 TAB Zinc Sulfate (Zinc Sulfate Cap) 220 mg DAILY@1200 PO 10/14/16 12:00 11/13/16 11:59 5/24/17 11:42 220 MG Potassium Chloride (Klor-Con Tab) 20 meq QAM PO 10/17/16 09:00 11/16/16 08:59 10/19/16 09:03 20 MEQ Ferrous Sulfate (Feosol Tab) 325 mg QAM PO 10/19/16 09:00 11/18/16 08:59 10/19/16 09:03 325 MG Acetaminophen (Tylenol Tab) 650 mg Q4H PRN PO 10/18/16 19:00 11/17/16 18:59 10/19/16 15:37 650 MG Objective Vital Signs Date Time Temp Pulse Resp B/P Pulse Ox O2 Delivery O2 Flow Rate FiO2 10/19/16 15:30 Room Air 10/19/16 08:57 37.6 84 18 132/69 98 Room Air 10/19/16 08:30 Room Air 10/18/16 23:45 CPAP 10/18/16 23:15 36.8 87 18 149/69 98 BiPAP 2.0 Physical Exam General Appearance: WD/WN, no apparent distress Eyes: normal inspection, sclerae normal ENT: normal ENT inspection, pharynx normal Neck: supple, no adenopathy, trachea midline Respiratory/Chest: lungs clear, normal breath sounds, no respiratory distress Cardiovascular: regular rate, rhythm, no gallop, no murmur Abdomen: normal bowel sounds, non tender, soft, no organomegaly Extremities: no calf tenderness, + pertinent finding (wound VAC left hip) Neurologic/Psychiatric: alert, oriented x 3 Skin: normal color, no rash Lymphatic: no adenopathy Laboratory Results Last 24 Hours Test 10/19/16 05:15 Hemoglobin 9.0 g/dL Hematocrit 26.5 % Creatinine 0.70 mg/dl Est Creatinine Clear Calc Drug Dose 81.6 ml/min Estimated GFR () 99.6 Estimated GFR (Non- 86.0 C-Reactive Protein 1.99 mg/dl Prealbumin 24.4 mg/dl Assessment and Plan 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 She will continue daptomycin for a planned 6 week course of therapy, unable to use rifampin because of elevation of liver enzymes. . Continue to monitor CPK levels while on daptomycin. Would like to see his outpatient prior to discontinuation of daptomycin. Still awaiting insurance authorization for rehab.
--- NOTE | 2016-10-19 18:58 | PROGRESS NOTE ---
DATE: 10/19/2016 SUBJECTIVE: A 71-year-old white female now 4 weeks out from I\T\D of an infected total hip wound with a polyethylene exchange and femoral head exchange. She continues to make good progress. Denies any significant pain. She is getting around reasonably well. She has a wound VAC in place. OBJECTIVE: VITAL SIGNS: Temperature 37.6. Vital signs stable. PHYSICAL EXAMINATION: GENERAL: Reveals a pleasant elderly female. She is sitting up in bed and talking to her daughter. She looks comfortable. EXTREMITIES: Examination of left hip reveals the wound VAC to be in place. Leg lengths were equal. She can dorsiflex and plantarflex her foot appropriately. She is neurologically intact. LABORATORY DATA: Hemoglobin 9.0, hematocrit 26.5. Electrolytes are stable. ASSESSMENT: A 71-year-old white female 4 weeks out from incision and drainage of an infected total hip wound doing reasonably well at this point. The wound VAC is in place. She needs 2 more weeks of IV antibiotics. PLAN: 1. DVT prophylaxis including thigh-high TEDs, SCDs and subQ heparin. She can be converted to aspirin upon discharge. 2. PT/OT. She can weightbear as tolerated. Left total hip protocol. 3. Wound management. Wound care has got a wound VAC in place and it looks like she is responding well to this. 4. Infection. She needs 2 more weeks of IV antibiotics, then probably at least 6 months of p.o. antibiotics. 5. Disposition: She is orthopedically acceptable for discharge at any time medically able. I need to see her back 2 weeks post-discharge or around the time she is converting from IV to p.o. antibiotics. Any orthopedic questions can be directed to me at [phone].
[2016-10-19 23:58] VITALS: BP 143/83; PULSE 80; TEMP 36.7; O2SAT 100
[2016-10-20 00:15] VITALS: O2SAT 100
[2016-10-20 07:20] VITALS: BP 146/80; PULSE 76; TEMP 37.2; O2SAT 92
[2016-10-20] MEDS: BOOST BREEZE NUTRITION DRINK 1 BOX PO SCH (09:00)
[2016-10-20] MEDS: LIDOCAINE HCL 2% VISCOUS SOLN 60 ML, DiphenhydrAMINE HCL SYRUP 150 MG, ALUMINUM/MAGNESI... MT SCH ×4 (09:04)
[2016-10-20] MEDS: ACETAMINOPHEN 325 MG TAB PO PRN (09:05)
[2016-10-20] MEDS: DAPTOmycin IV 650 MG in SODIUM CHLORIDE 0.9% 50ML 50 ML IV SCH (09:34)
[2016-10-20] MEDS: PANTOprazole SOD 40 MG TAB PO SCH (09:41)
[2016-10-20] MEDS: MAGNESIUM CHLORIDE 64MG DELAYED REL TAB PO SCH (09:42)
[2016-10-20] MEDS: GABAPENTIN 100 MG CAP PO SCH (09:42)
[2016-10-20] MEDS: DIVALPROEX SODIUM 250 MG DELAY REL TAB PO SCH (09:43)
[2016-10-20] MEDS: DOCUSATE SODIUM 100 MG CAP PO SCH (09:44)
[2016-10-20] MEDS: FERROUS SULFATE 325 MG TAB PO SCH (09:44)
[2016-10-20] MEDS: POTASSIUM CHLORIDE 20 MEQ TABCR PO SCH (09:45)
[2016-10-20] MEDS: FLUOXETINE HCL 20 MG CAP PO SCH (09:46)
[2016-10-20] MEDS: HEPARIN SOD 5000 UNIT/0.5 ML CARP SQ SCH (09:49)
[2016-10-20] MEDS ORDERED: NRN100 PO (09:52)
[2016-10-20] MEDS ORDERED: CNT PO (09:52)
[2016-10-20] MEDS ORDERED: MCTP EXT (09:52)
[2016-10-20] MEDS ORDERED: Boost Nutritional Drink PO (09:52)
--- NOTE | 2016-10-20 09:59 | Discharge Instructions ---
Discharge Instructions Date of Service October 20, 2016. Admission Reason for Admission: Cellulitis Of Lt Hip Discharge Discharge Diagnosis / Problem: CELLULITIS OF LEFT HIP, ENCEPHALOPATHY, ARF Discharge Goals Goal(s): Decrease discomfort, Improve function Activity Recommendations Activity Level: Assistance Required Therapies: Physical Therapy, Occupational Therapy Weightbearing Status: Left weightbearing (as tolerated. HIP PRECAUTIONS), Right weightbearing (as tolerated) . Additional Information Patient informed of condition: Yes Advance Directives: Yes DNR: No Level of Care: Skilled Communicable Disease: No Prognosis: Stable [place] Catheter: No Instructions / Follow-Up Instructions / Follow-Up FOLLOWUP WITH FAMILY DOCTOR IN ONE WEEK FOLLOWUP WITH ORTHOPEDICS IN 2 WEEKS FOLLOWUP WITH INFECTIOUS DISEASE DR. CHINCHILLA IN 2 WEEKS PRIOR TO DISCONTINUATION OF IV ANTIBIOTICS. ORAL ANTIBIOTICS PER DVT PROPHYLAXIS ASPIRIN 325MG BID PER ORTHOPEDICS AND DURATION OF DVT PX WITH ASPIRIN PER ORTHO. LAB: CBC AND BMP WITH MG LEVELS IN 5-7 DAYS AND FOLLOW RESULTS WITH FAMILY DOCTOR. WOUND CARE Current Hospital Diet Patient's current hospital diet: Regular Diet Discharge Diet Recommended Diet: Regular Diet Procedures Procedures Performed: Removal Of Perm Catheter Pending Studies Studies pending at discharge: no Physician Orders On Transfer Special Precautions: FALL AND ASPIRATION PRECAUTIONS IV Therapy: IV DAPTOMYCIN X 2 MORE WEEKS Vital Signs: EVERY 8HRS Medical Emergencies . Who to Call and When: Medical Emergencies: If at any time you feel your situation is an emergency, please call 911 immediately. . Non-Emergent Contact Non-Emergency issues call your: Primary Care Provider . . "Provider Documentation" section prepared by Khari Auguste. . Core Measure Problem Core Measures: None
[2016-10-20 10:23] VITALS: BP 146/80; PULSE 76; TEMP 37.2; O2SAT 92
[2016-10-20] MEDS: ONDANSETRON 4MG OD TAB PO PRN (10:52)
--- NOTE | 2016-10-20 19:28 | Progress Note ---
Internal Med Progress Note Date of Service: October 20, 2016. Provider Documentation: SUBJECTIVE: resting comfortably no pain eating ok ambulating ok no dizziness ok for senior living today OBJECTIVE: Vital Signs-as noted below Exam: General-alert and awake and oriented x 3 ENT-normal hearing Neck-no neck masses Lungs-cta b/l no wheezing or crackles Heart-s1 and s2 heard regular rate and rhythm no murmurs Abdomen-soft bowel sounds present non tender no distension Extremities- no edema s/p left hip I and D and on wound vac Neuro-alert and awake oriented x 3 moves extremities Lab data as noted below. ASSESSMENT & PLAN: 70F presented with left hip infection post recent left EFREM and was s/p I and D. Cultures growing MRSA. Hospital day complicated by ARF, unresponsiveness after procedure, possible uremic encephalopathy and currently slowly improving with dialysis. ON IV DAPTOMYCIN(PLAN FOR 6-8 WEEKS PER ID) AND RIFAMPIN FOR MRSA. Rifampin stopped secondary to elevated LFT's.Received ROCEPHIN and Diflucan FOR UTI.Was ON NG TUBE FEEDING. Completed iv Acyclovir for orolabial herpes lesions. Improved. Dialysis stopped. Plan for 6 weeks of iv daptomycin with weekly cpk levels .s/p wound vac for left hip. SNF placement today LEFT HIP MRSA INFECTION : Post surgery Was on IV vancomycin x 4 doses. Rifampin discontinued due to elevated LFT's Currently on Iv daptomycin since 09/19 secondary to Renal failure.- to be continued for total 6 weeks as per ID. (Day # 30) S/P Hip Irrigation on 09/19; S/P I & D abscess left hip with irrigating wound vac placement by Dr Gabriel on 10/13/16 To Monitor CPK levels while on Daptomycin ( q weekly-) To Continue wound care . ID, Ortho, Wound care on board. Cleared for discharge by ortho, wound care, ID discharged to snf today f/u with wound clinic, ID and Ortho plan for po abx once iv abx completed' needs to f/u with ID prior to completion of iv abx stable ALBERT/ATN- Resolved multifactorial. S/P Hemodialysis . Perm cath placed 09/29. Removal of hemodialysis catheter:10/04 Nephrology signed off Labs stable HYPOKALEMIA/HYPOMAGNESEMIA- Resolved On magnesium supplements ANEMIA Acute blood loss post op? From illness? S/P 2 units PRBC's. hb 7.9 10/18/16 s/p Transfuse one more unit hb 9.0 f/u labs with pcp ENCEPHALOPATHY- from infection and ARF resolved SEVERE PROTEIN-CALORIE MALNUTRITION Was unable to take oral nutrition due to stomatitis. To Advanced diet- tolerating PO Was on NG feedings which were discontinued on 10/10/16. Compound Machine Operator on board. To do Pre albumin/CRP on a weekly q basis () to access nutritional status. 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 Completed IV acyclovir for total 7 days. Improved BIPOLAR DISORDER On Depakote ER as able to swallow pills ? DEMENTIA Dr Draper discussed with patient and daughter. Had some problems with memory when receiving chemo in past, but never had tracy dementia seems stable SLEEP APNEA To Continue O2. CPAP UTI Urine culture: Shraddha. completed one week of fluconazole Discharged to snf today Vital Signs: Date Time Temp Pulse Resp B/P Pulse Ox O2 Delivery O2 Flow Rate FiO2 10/20/16 10:23 37.2 76 16 92 Room Air 10/20/16 08:00 Room Air 10/20/16 07:20 37.2 76 16 146/80 92 Room Air 10/20/16 00:15 100 Room Air 10/19/16 23:58 36.7 80 18 143/83 100 Room Air Lab Results: Results Past 24 Hours Test 10/20/16 05:35 Range/Units Erythrocyte Sedimentation Rate 36 0-21 mm/hr C-Reactive Protein 2.51 0-0.29 mg/dl
--- NOTE | 2016-10-20 19:34 | Discharge Summary ---
Discharge Summary Date of Service October 20, 2016. Discharge Summary Admission Date: Sep 17, 2016 at 10:23 Discharge Date: October 20, 2016 Discharge Disposition: correction facility Principal Diagnosis: LEFT HIP CELLULITIS POST SURGERY S/P IRRIGATION AND WOUND VAC PLACEMENT SEPSIS ENCEPHALOPATHY ARF Secondary Diagnoses/Problems: (1) Anemia Status: Chronic (2) Anxiety Status: Chronic (3) Bipolar disorder Status: Chronic (4) Bipolar disorder Status: Chronic (5) Dementia Status: Chronic (6) Dementia Status: Chronic (7) Diastolic dysfunction Permanent Comment: echo 05/2015 - EF 55-60%, grade II diastolic dysfunction Status: Chronic (8) Diastolic dysfunction Status: Chronic (9) Gastroesophageal reflux disease Status: Chronic (10) GERD (gastroesophageal reflux disease) Status: Chronic (11) History of endometrial cancer Permanent Comment: Postmenopausal vaginal bleeding Abnormal pelvic ultrasound and endometrial biopsy Repeat endometrial biopsy positive 08/13/2012 revealing poorly differentiated adenocarcinoma Status post total abdominal hysterectomy bilateral salpingo-oophorectomy with pelvic and periaortic lymph node sampling Stage [id number], grade 3, stage I b Status post completion of radiation therapy utilizing IMRT completed 06/21/2013 received 5040 cGy external beam therapy followed by 2 HDR treatments June 13 and June 23, total 5840 cGy Status: Resolved (12) Left Hip DJD Status: Resolved (13) Nocturnal hypoxemia Status: Chronic (14) OCD (obsessive compulsive disorder) Status: Chronic (15) OCD (obsessive compulsive disorder) Status: Chronic (16) JOO (obstructive sleep apnea) Status: Chronic (17) JOO on CPAP Status: Chronic (18) Spinal stenosis Status: Chronic Procedures: CT hip 1. 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 No evidence of fracture 3. No significant joint effusion although the examination is limited due to streak artifact 4. Partially visualized 6 cm collection within the subcutaneous tissues lateral to the left gluteal musculature. This is not possible on the basis of this study to determine whether this collection is infected or sterile. Liver ultrasound No significant abnormality identified within the right upper quadrant. cardiac monitoring IV meds liver US CT head venous duplex extremity right femoral hemodialysis catheter right tunneled IJ hemodialysis catheter . Consultations: Orthopedics Nephrology Critical Care Medicine GI ID . Medication Reconciliation New Medications: Gabapentin (Gabapentin) 100 Mg Cap 100 MG PO BID for 30 Days, #60 CAP 1 Refill Miconazole Nitrate (Desenex Shake Powder) 43 Appln/43 Gm Powd 1 APPLN EXT PRN PRN for Affected Skin Folds for 10 Days Multivitamins/Minerals (Certavite/Antioxidants) 1 Tab Tab 1 TAB PO DAILY@1200 for 30 Days, TAB 2 Refills [Boost Nutritional Drink] () 1 BOX LIQD 1 BOX PO BID17 for 30 Days, 1 Refill Continued Medications: Acetaminophen (Tylenol Extra Strength) 500 Mg Tab 1000 MG PO Q8 for 30 Days, #180 TAB Take 3 times per day to lessen pain. Aspirin (Aspirin) 325 Mg Ectab 325 MG PO BID for 45 Days, #90 Take to prevent blood clots. Biotin (Biotin Forte) 3 Mg Tab 3 MG PO DAILY Bisacodyl (Dulcolax) 10 Mg Sup 1 SUPP MN DAILY PRN for IF NO BM FOR DAY 3, SUP Calcium Carbonate (Tums) 500 Mg Chew 1 TAB PO BID PRN for Indigestion Cholecalciferol (Vitamin D 1000 Unit) 1,000 Unit Cap 4000 INTER.UNIT PO QAM Divalproex Sodium (Depakote Er) 500 Mg Tab 1000 MG PO HS for 30 Days, TAB 2 Refills Donepezil Hydrochloride (Donepezil Hcl) 10 Mg Tab 1 TAB PO QAM Ferrous Gluconate (Ferrous Gluconate) 324 Mg Tab 324 MG PO BIDM for 30 Days, #60 TAB Fluoxetine (Prozac) 20 Mg Cap 20 MG PO QAM Loperamide Hcl (Imodium) 2 Mg Cap 2 MG PO DIRECTED PRN for Diarrhea, CAP Lorazepam (Ativan) 1 Mg Tab 1 MG PO BID PRN for Anxiety Magnesium Hydroxide (Milk of Magnesia) 30 Ml Susp 30 ML PO DAILY PRN for IF NO BM FOR 3 DAYS Ondasetron Odt (Zofran Odt) 4 Mg Tab 4 MG SL Q6H PRN for NAUSEA Oxygen (Oxygen) Gas 2 LITERS NA HS Pantoprazole (Protonix) 40 Mg Tab 40 MG PO QAM Prune Juice (Prune Juice ) Liqd 1 DOSE PO DAILY PRN for IF NO BM IN 2 DAYS Saline ([place] Nasal [place]) 0.65 % Spr 2 SPRAY CAROL DAILY PRN for CONGESTION Sennosides-Docusate Sodium (Stool Softener) 1 Tab Tab 1 TAB PO DAILY PRN for Constipation Sodium Phosphates (Enema) 1 Maria E Maria E 1 EA MN DAILY PRN for IF NO BM ON DAY 7 Wheat Dextrin (Benefiber) 1 Pow Pow 1 DOSE PO DAILY PRN for Constipation Zinc Acetate (Oral) (Galzin) 25 Mg Cap 25 MG PO QAM Discontinued Medications: B-Complex W/ Folic Acid (B Complex) 1 Tab Tab 1 TAB PO DAILY Dicloxacillin Sodium (Dynapen) 500 Mg Cap 500 MG PO QID for 10 Days, #40 CAP Gabapentin (Neurontin) 100 Mg Cap 500 MG PO TID Oxycodone HCl (Oxycodone HCl) 5 Mg Tab 5 MG PO Q4H PRN for Severe Pain for 30 Days, #60 TAB Take as needed for Pain. Admission Information HPI (per Admitting provider): 70 year old female who presents to the ER with fever and generalized weakness. Patient underwent left total hip replacement on 09/[address] Leavitt. She was discharged from [facility] on 09/06 to [facility] for rehab. Patient reports she had been doing well and was actually supposed to be discharged today. However yesterday she reports she had a fever and felt very weak. Patient's incision site was noted to be red and she was started on dicloxacillin. Patient did not have any improvement this morning so she was sent to the ER for further evaluation. She reports her left hip pain has been controlled. Patient denies chest pain, shortness of breath, cough, or sputum production. No abdominal pain , nausea, vomiting, or diarrhea. She denies lightheadedness, dizziness, diaphoresis, and syncopal events. No urinary symptoms. In the ER, patient is found to have a low grade fever, tachycardia, and WBC 19K. BP is stable, lactic acid is normal. Left hip incision exam is consistent with cellulitis. She was given IVF, IV Vanco, and Zosyn. Physical Exam (per Admitting): General Appearance: no apparent distress Head: normocephalic Eyes: normal inspection ENT: hearing grossly normal Neck: supple, no JVD Respiratory/Chest: lungs clear, normal breath sounds, no respiratory distress Cardiovascular: regular rate, rhythm, normal peripheral pulses, + pertinent finding (trace edema BLLE) Abdomen/GI: normal bowel sounds, non tender, soft Extremities/Musculoskelatal: + pertinent finding (kamar intact to left lateral hip; erythema, warm, and firmness noted to lateral left thigh surrounding the kamar; small amount of purulent drainage noted on dressing) Neurologic/Psych: no motor/sensory deficits, alert, normal mood/affect, oriented x 3 Skin: + pertinent finding (left hip as noted above; left abomdinal fold severely excoriated, moist, and with foul odor) Physical Exam (per Admitting): General- awake; alert; chills Eyes- EOMI; no scleral icterus Neck- no stridor; trachea midline Lungs- CTA bilaterally anteriorly Heart- RRR; no m/r/g Abdomen- soft; NT; nBS Extremities- trace LE edema; no deformity Neuro- no focal deficits Skin- erythema surrounding left thigh incision; kamar intact; erythema and suppurative discharge left abdominal pannus fold . Hospital Course 70F presented with left hip infection post recent left EFREM and was s/p I and D. Cultures growing MRSA. Hospital day complicated by ARF, unresponsiveness after procedure, possible uremic encephalopathy and currently slowly improving with dialysis. ON IV DAPTOMYCIN(PLAN FOR 6-8 WEEKS PER ID) AND RIFAMPIN FOR MRSA. Rifampin stopped secondary to elevated LFT's.Received ROCEPHIN and Diflucan FOR UTI.Was ON NG TUBE FEEDING. Completed iv Acyclovir for orolabial herpes lesions. Improved. Dialysis stopped. Plan for 6 weeks of iv daptomycin with weekly cpk levels .s/p wound vac for left hip. SNF placement today LEFT HIP MRSA INFECTION : Post surgery Was on IV vancomycin x 4 doses. Rifampin discontinued due to elevated LFT's Currently on Iv daptomycin since 09/19 secondary to Renal failure.- to be continued for total 6 weeks as per ID. (Day # 30) S/P Hip Irrigation on 09/19; S/P I & D abscess left hip with irrigating wound vac placement by Dr Gabriel on 10/13/16 To Monitor CPK levels while on Daptomycin ( q weekly-) To Continue wound care . ID, Ortho, Wound care on board. Cleared for discharge by ortho, wound care, ID discharged to snf today f/u with wound clinic, ID and Ortho plan for po abx once iv abx completed' needs to f/u with ID prior to completion of iv abx stable ALBERT/ATN- Resolved multifactorial. S/P Hemodialysis . Perm cath placed 09/29. Removal of hemodialysis catheter:10/04 Nephrology signed off Labs stable HYPOKALEMIA/HYPOMAGNESEMIA- Resolved On magnesium supplements ANEMIA Acute blood loss post op? From illness? S/P 2 units PRBC's. hb 7.9 10/18/16 s/p Transfuse one more unit hb 9.0 f/u labs with pcp ENCEPHALOPATHY- from infection and ARF resolved SEVERE PROTEIN-CALORIE MALNUTRITION Was unable to take oral nutrition due to stomatitis. To Advanced diet- tolerating PO Was on NG feedings which were discontinued on 10/10/16. Floor Cashier on board. To do Pre albumin/CRP on a weekly q basis () to access nutritional status. 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 Completed IV acyclovir for total 7 days. Improved BIPOLAR DISORDER On Depakote ER as able to swallow pills ? DEMENTIA Dr Draper discussed with patient and daughter. Had some problems with memory when receiving chemo in past, but never had tracy dementia seems stable SLEEP APNEA To Continue O2. CPAP UTI Urine culture: Shraddha. completed one week of fluconazole Discharged to snf today Total time spent on discharge = 40MINUTES This includes examination of the patient, discharge planning, medication reconciliation, and communication with other providers. Discharge Instructions Discharge Instructions Date of Service October 20, 2016. Admission Reason for Admission: Cellulitis Of Lt Hip Discharge Discharge Diagnosis / Problem: CELLULITIS OF LEFT HIP, ENCEPHALOPATHY, ARF Discharge Goals Goal(s): Decrease discomfort, Improve function Activity Recommendations Activity Level: Assistance Required Therapies: Physical Therapy, Occupational Therapy Weightbearing Status: Left weightbearing (as tolerated. HIP PRECAUTIONS), Right weightbearing (as tolerated) . Additional Information Patient informed of condition: Yes Advance Directives: Yes DNR: No Level of Care: Skilled Communicable Disease: No Prognosis: Stable [place] Catheter: No Instructions / Follow-Up Instructions / Follow-Up FOLLOWUP WITH FAMILY DOCTOR IN ONE WEEK FOLLOWUP WITH ORTHOPEDICS IN 2 WEEKS FOLLOWUP WITH INFECTIOUS DISEASE DR. CHINCHILLA IN 2 WEEKS PRIOR TO DISCONTINUATION OF IV ANTIBIOTICS. ORAL ANTIBIOTICS PER DVT PROPHYLAXIS ASPIRIN 325MG BID PER ORTHOPEDICS AND DURATION OF DVT PX WITH ASPIRIN PER ORTHO. LAB: CBC AND BMP WITH MG LEVELS IN 5-7 DAYS AND FOLLOW RESULTS WITH FAMILY DOCTOR. WOUND CARE Current Hospital Diet Patient's current hospital diet: Regular Diet Discharge Diet Recommended Diet: Regular Diet Procedures Procedures Performed: Removal Of Perm Catheter Pending Studies Studies pending at discharge: no Physician Orders On Transfer Special Precautions: FALL AND ASPIRATION PRECAUTIONS IV Therapy: IV DAPTOMYCIN X 2 MORE WEEKS Vital Signs: EVERY 8HRS Medical Emergencies . Who to Call and When: Medical Emergencies: If at any time you feel your situation is an emergency, please call 911 immediately. . Non-Emergent Contact Non-Emergency issues call your: Primary Care Provider
[2016-12-05] MEDS ORDERED: SULF800T23 PO (10:53)
[2016-12-05] MEDS ORDERED: TRAM-10 PO (10:53)
[2016-12-05] MEDS ORDERED: ONDA4TAB46 PO (10:53)
[2016-12-05] MEDS ORDERED: FEXO5TAB2 PO (10:53)
[2016-12-15] MEDS ORDERED: SULF800T23 PO (14:11)
[2016-12-22] MEDS ORDERED: METR0.7510 TOP (12:03)
== END 2016-10-20 11:16 | DRG 466 ==
LOC: ENRESERVTM → ENRESERVDT → EDBD 07:18 → C.EDB 07:20 → C.MSN 10:23 → UNDOADMIN 10:23 → C.2T 09-19 18:40 → C.MSN 09-19 18:40 → C.2T 09-22 18:33 → C.MSICU 09-22 18:33 → C.2T 09-25 12:46 → EDBEDREQ 10-02 17:55 → C.3E 10-02 20:06
PROVIDERS: ADMIT Internal Medicine; ATTEND Internal Medicine
PROC: 0SUE09Z Supplement Left Hip Joint, Acetabular Surface with Liner, Open Approach (ICD-10-PCS; principal; 2016-09-19 07:15)
PROC: 0SPB09Z Removal of Liner from Left Hip Joint, Open Approach (ICD-10-PCS; principal; 2016-09-19 07:15)
PROC: 0SPB0JZ Removal of Synthetic Substitute from Left Hip Joint, Open Approach (ICD-10-PCS; principal; 2016-09-19 07:15)
PROC: 0SCB0ZZ Extirpation of Matter from Left Hip Joint, Open Approach (ICD-10-PCS; principal; 2016-09-19 07:15)
PROC: 0SRS03Z Replacement of Left Hip Joint, Femoral Surface with Ceramic Synthetic Substitute, Open Approach (ICD-10-PCS; principal; 2016-09-19 07:15)
PROC: 04HK33Z Insertion of Infusion Device into Right Femoral Artery, Percutaneous Approach (ICD-10-PCS; 2016-09-22)
DX: T84.52XA Infection and inflammatory reaction due to internal left hip prosthesis, initial encounter (principal); A41.9 Sepsis, unspecified organism; N17.0 Acute kidney failure with tubular necrosis; L03.116 Cellulitis of left lower limb; K56.7 Ileus, unspecified; D62 Acute posthemorrhagic anemia; G93.41 Metabolic encephalopathy; R65.20 Severe sepsis without septic shock; B00.89 Other herpesviral infection; B37.49 Other urogenital candidiasis; E43 Unspecified severe protein-calorie malnutrition; Z96.642 Presence of left artificial hip joint; T50.8X5A Adverse effect of diagnostic agents, initial encounter; F31.9 Bipolar disorder, unspecified; K21.9 Gastro-esophageal reflux disease without esophagitis; B37.2 Candidiasis of skin and nail; E83.42 Hypomagnesemia; F03.90 Unspecified dementia, unspecified severity, without behavioral disturbance, psychotic disturbance, mood disturbance, and anxiety; N93.9 Abnormal uterine and vaginal bleeding, unspecified; G47.33 Obstructive sleep apnea (adult) (pediatric); Z90.710 Acquired absence of both cervix and uterus; D50.0 Iron deficiency anemia secondary to blood loss (chronic); B95.62 Methicillin resistant Staphylococcus aureus infection as the cause of diseases classified elsewhere; F42.9 Obsessive-compulsive disorder, unspecified; E66.01 Morbid (severe) obesity due to excess calories; I11.9 Hypertensive heart disease without heart failure; E87.6 Hypokalemia; Y92.129 Unspecified place in nursing home as the place of occurrence of the external cause; Y83.8 Other surgical procedures as the cause of abnormal reaction of the patient, or of later complication, without mention of misadventure at the time of the procedure; Y84.2 Radiological procedure and radiotherapy as the cause of abnormal reaction of the patient, or of later complication, without mention of misadventure at the time of the procedure; Y92.239 Unspecified place in hospital as the place of occurrence of the external cause; Y79.2 Prosthetic and other implants, materials and accessory orthopedic devices associated with adverse incidents; Z85.42 Personal history of malignant neoplasm of other parts of uterus; E87.1 Hypo-osmolality and hyponatremia

== ENCOUNTER → 2016-11-04 | Outpatient (CLI) | payer OTHER ==
[~2016-11-04] MED LIST changes: -ATV1HP PO; -B-COTAB53 PO; +BISA10SU3 PR; +Boost Nutritional Drink PO; +CNT PO; -DCL/500 PO; -ECON0.05 TOP; +FEXO5TAB2 PO; -GABA-112 PO; -GABA1CAP5 PO; +MCTP EXT; -MELA1TAB5 PO; +METR0.7510 TOP; +MOMLX PO; +NRN100 PO; -NYST100098 TD; +ONDA4TAB46 PO; +PRNJ PO; -RXC5 PO; +SODI1ENE21 PR; +SULF800T23 PO; +TRAM-10 PO
[2016-11-04 16:44] LABS: MEAN CELL VOLUME 94.4 fL (80-100); MEAN CORPUSCULAR HEMOGLOBIN 28.9 pg (25-34); MEAN CORPUSCULAR HGB CONC 30.6 g/dl (32-36); MEAN PLATELET VOLUME 9.9 fL (7.4-10.4); PLATELET COUNT 376 K/uL (130-400); RED BLOOD COUNT 3.39 M/uL (4.2-5.4); WHITE BLOOD COUNT 9.04 K/uL (4.8-10.8)
== END | disposition home or self-care (01) ==
LOC: C.LAB 12:49
PROVIDERS: ATTEND Orthopaedic Surgery Sports Medicine
DX: M25.559 Pain in unspecified hip (principal)

== ENCOUNTER → 2016-12-01 | Outpatient (CLI) | payer OTHER ==
[2016-12-01 17:15] LABS: HEMATOCRIT 31.7 % (37-47); MEAN CELL VOLUME 93.2 fL (80-100); MEAN CORPUSCULAR HEMOGLOBIN 30.3 pg (25-34); MEAN CORPUSCULAR HGB CONC 32.5 g/dl (32-36); MEAN PLATELET VOLUME 9.9 fL (7.4-10.4); PLATELET COUNT 324 K/uL (130-400); WHITE BLOOD COUNT 4.56 K/uL (4.8-10.8)
== END | disposition home or self-care (01) ==
LOC: C.LABBC 14:54
PROVIDERS: ATTEND Orthopaedic Surgery Sports Medicine
DX: Z96.642 Presence of left artificial hip joint (principal)

== ENCOUNTER → 2017-01-09 | Outpatient (CLI) | payer OTHER ==
[~2017-01-09] MED LIST changes: -SULF800T23 PO
[2017-01-09 16:55] LABS: HEMATOCRIT 33.4 % (37-47); MEAN CELL VOLUME 94.6 fL (80-100); MEAN CORPUSCULAR HEMOGLOBIN 30.6 pg (25-34); MEAN CORPUSCULAR HGB CONC 32.3 g/dl (32-36); PLATELET COUNT 332 K/uL (130-400); RED BLOOD COUNT 3.53 M/uL (4.2-5.4); WHITE BLOOD COUNT 5.34 K/uL (4.8-10.8)
== END | disposition home or self-care (01) ==
LOC: C.LABBC 13:58
PROVIDERS: ATTEND Orthopaedic Surgery Sports Medicine
DX: Z04.8 Encounter for examination and observation for other specified reasons (principal); T81.4XXA Infection following a procedure, initial encounter; Y83.1 Surgical operation with implant of artificial internal device as the cause of abnormal reaction of the patient, or of later complication, without mention of misadventure at the time of the procedure

== ENCOUNTER → 2017-02-10 | Outpatient (CLI) | payer OTHER | END | disposition home or self-care (01) | LOC: C.PATHSPEC 15:23 | PROVIDERS: ATTEND Urology | DX: N30.01 Acute cystitis with hematuria (principal) ==

== ENCOUNTER → 2017-03-15 | Outpatient (CLI) | payer OTHER ==
[~2017-03-15] MED LIST changes: +OPTIRAY 320 IV PRN
--- NOTE | 2017-03-15 12:18 | DIAGNOSTIC IMAGING REPORT ---
CT OF THE ABDOMEN AND PELVIS WITH AND WITHOUT CONTRAST HEMATURIA PROTOCOL CLINICAL HISTORY: Gross hematuria. Urinary frequency. History of endometrial cancer. COMPARISON STUDY: CT of the abdomen and pelvis September 20, 2016 and KUB September 30, 2016 TECHNIQUE: Unenhanced and split bolus phase imaging of the abdomen and pelvis was performed. Injection of 121 cc Optiray 320 IV was uneventful. A dose lowering technique was utilized adhering to the principles of ALARA. CT DOSE: 2936.87 mGy.cm FINDINGS: No renal, ureteral or bladder calculi are present. There is no hydronephrosis or hydroureter. Evaluation of the pelvis, including the bladder, is suboptimal given streak artifact from the left hip arthroplasty. Bladder wall thickening is accentuated by underdistention. No discrete bladder mass is identified. No upper tract urothelial lesion is present. There is no solid renal lesion. There is no biliary ductal dilatation status post cholecystectomy. There is evidence for a previous retroperitoneal lymph node dissection. There are no enlarged abdominal or pelvic lymph nodes. Mesenteric infiltration with small associated mesenteric lymph nodes is unchanged since exam of November 10, 2014. This suggests sclerosing mesenteritis. No ascites is present. There are no suspicious osseous lesions. Caliber and wall thickness of small and large bowel are normal. Postoperative findings involving the anterior abdominal wall are noted. IMPRESSION: 1. No urinary calculi or hydronephrosis. No upper tract urothelial lesions. 2. Suboptimal evaluation of the pelvis, including the bladder, given streak artifact from left hip arthroplasty. Moderate bladder wall thickening which is accentuated by underdistention. No discrete bladder mass identified although if persistent hematuria, correlation with cystoscopy is recommended. 3. No acute process within the abdomen or pelvis. 4. No evidence of metastatic disease. Electronically signed by: Norm Mena M.D. 03/15/2017 12:17 PM Dictated Date/Time: 03/15/2017 12:06 PM
== END | disposition home or self-care (01) ==
LOC: C.CTS 11:12
PROVIDERS: ATTEND Urology
DX: R31.0 Gross hematuria (principal); R93.41 Abnormal radiologic findings on diagnostic imaging of renal pelvis, ureter, or bladder; Z96.642 Presence of left artificial hip joint

== ENCOUNTER 2023-12-06 14:10 | Inpatient (IN) ==
--- NOTE | 2023-12-06 14:27 | Emergency Department Note ---
Impression & Plan Generalized weakness, Ambulatory dysfunction, Acute hyponatremia, Hypomagnesemia, Chest pain ED Provider Note HISTORY OF PRESENT ILLNESS: Patient is an 78-year-old female presenting with chest pain and generalized weakness. Patient reports that this morning around 9 AM she developed chest pain located under her left breast which radiated across to her chest into her right shoulder and from her right shoulder down her back. Reports that pain was constant in nature. She states that she tried to get up and was lightheaded and very unsteady on her feet. She reports chest pain lasted for a few hours. She currently complains of only pinpoint chest pain under her left breast. Denies any DVT or PE history. Denies any history of cardiac stents. She is not on any anticoagulation or antiplatelet therapy. She denies any recent fevers. Per EMS report, the call was for generalized weakness and decreased oral intake over the last 3 days. They reported that the patient has not been up or getting around well over the last 3 days per the daughter. ROS: as above PHYSICAL EXAM: Constitutional: Patient appears in no acute distress. HENT: Head: Normocephalic and atraumatic. Eyes: EOMI, PERRL Mouth/Throat: Mucous membranes moist. Neck: Trachea midline. Neck supple. Cardiovascular: RRR, No murmurs, rubs or gallops. Intact distal pulses. Pulmonary/Chest: No respiratory distress. Breath sounds clear and equal bilaterally. No wheezes or rales. Abdominal: Abdomen soft, no tenderness, rebound or guarding. Musculoskeletal: No edema, tenderness or deformity noted. Skin: Warm and dry. No rash, erythema, pallor or cyanosis Psychiatric: Appropriate mood and affect for situation. Neurological: Alert and keenly responsive. CN II-XII grossly intact, moving all extremities equally and fully. MDM: - Vitals signs stable - History obtained via patient and EMS. History as above. - Chronic conditions affecting care: GERD; bipolar disorder; obesity; CHF; JOO; HLD; anxiety/depression; endometrial cancer; aortic stenosis - Differential diagnoses include, but are not limited to: Acute coronary syndrome; pulmonary embolism; dissection; tension pneumothorax; esophageal rupture; pneumonia; UTI - Order placed for continuous cardiac monitoring. At this time, monitor showed rate of 67 bpm with normal sinus rhythm, per my interpretation. - External medical records reviewed. Radiation oncology note dated 03/03/2022 was reviewed. Patient has known breast cancer in her left lower inner quadrant on her left breast. - EKG interpreted by myself showed normal sinus rhythm. Rate 67 bpm. QT 436. No acute ischemic changes. - Laboratory workup interpreted by myself showed leukopenia (WBC 3.21); anemia (Hgb 9.2); normal PT/INR; elevated dimer (1220); hyponatremia (Na 127); hypomagnesemia (Mg 1.2); normal troponin; normal TSH - CXR negative for pneumonia, per my interpretation - CT head wo contrast negative for acute pathology - CTA chest negative for acute PE or dissection. Noted to have trace pleural effusions. - UA negative for infection - Patient given 1g IV magnesium for electrolyte replacement and 1L NS. - Discussed results with patient and her daughter at bedside. Daughter expresses concern about the patient going home, as she has had a significant decline in the last few days and has been unable to get up and get around at home. - Discussion was had with field case manager about patient's case and need for admission - Hospitalist, Dr. Adam, consulted for admission - [facility] ASSESSMENT AND PLAN: Diagnosis: generalized weakness; ambulatory dysfunction; acute hyponatremia; hypomagnesemia; chest pain Plan: admit Past Med/Surg History Problem List (Updated 12/06/23 @ 19:25 by Jennifer Marsh MD) Chest pain (Acute) Hypomagnesemia (Acute) Acute hyponatremia (Acute) Ambulatory dysfunction (Acute) Generalized weakness (Acute) Malignant neoplasm of lower-inner quadrant of left breast in female, estrogen receptor negative (Chronic 02/26/20) Medical History ALBERT (acute kidney injury) Anemia Anxiety and depression Aortic stenosis Arthritis Asthma Bipolar disorder Degenerative disc disease Diastolic dysfunction Environmental and seasonal allergies GERD (gastroesophageal reflux disease) Hip bursitis, left History of endometrial cancer Hyperlipidemia IBS (irritable bowel syndrome) Incontinence Malignant neoplasm of lower-inner quadrant of left breast in female, estrogen receptor negative (02/26/20) MGUS (monoclonal gammopathy of unknown significance) Morbid obesity with BMI of 45.0-49.9, adult MRSA infection OCD (obsessive compulsive disorder) JOO (obstructive sleep apnea) Restless leg syndrome Sleep apnea Urge incontinence of urine Urinary urgency Surgical History H/O breast biopsy H/O eye surgery H/O umbilical hernia repair History of anesthesia reaction History of carpal tunnel surgery History of cataract surgery History of colonoscopy History of esophagogastroduodenoscopy (EGD) History of hysterectomy History of left hip replacement Hx of cholecystectomy S/P ectopic Status post total knee replacement, right Family History Mother Cervical cancer Status post cardiac surgery Hypertension Father Lung cancer Brother COPD (chronic obstructive pulmonary disease) Brother Lung cancer Brother Lung cancer Heart disease Sister No problems noted. Sister Asthma Sister No problems noted. Son Muscular dystrophy Son No problems noted. Daughter No problems noted. Daughter No problems noted. Daughter No problems noted. 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 Feels Safe at Home: Yes Diet: regular caffeine: Yes (2-3 cups/day) during the past year weight has: remained stable Assistive Devices: Walker Allergies Allergies Allergy/AdvReac Type Severity Reaction Status Date / Time adhesive Allergy Intermediate ADHESIVE Verified 12/06/23 18:30 TAPE -- BLISTERS cetirizine Allergy Intermediate SORES IN Verified 12/06/23 18:30 MOUTH, HEAD CONGESTION dicloxacillin Allergy Intermediate MOUTH SORE Verified 12/06/23 18:30 erythromycin base Allergy Intermediate SORES IN Verified 12/06/23 18:30 MOUTH rifampin Allergy Intermediate elevated Verified 12/06/23 18:30 LFT's codeine AdvReac Mild NAUSEA Verified 12/06/23 18:30 doxycycline AdvReac Mild NAUSEA Verified 12/06/23 18:31 morphine AdvReac Mild "MAKES ME Verified 12/06/23 18:31 FEEL LOOPY" tetracycline AdvReac Mild NAUSEA Verified 12/06/23 18:31 NSAIDS (Non-Steroidal AdvReac Due to Verified 12/06/23 18:31 Anti-Inflamma kidney problems tramadol [From [facility]] AdvReac Nausea Verified 12/06/23 18:31 Home Meds Home Medications Medication Instructions Recorded Confirmed Oxygen Home #1 ea 02/28/19 03/03/22 cholecalciferol (vitamin D3) 25 25 mcg PO QAM 02/28/19 03/03/22 mcg (1,000 unit) capsule fluoxetine 20 mg capsule 20 mg PO HS 02/28/19 12/06/23 loperamide 2 mg capsule 2 mg PO .By mouth prn for ana m PRN 02/28/19 03/03/22 Diarrhea pantoprazole 40 mg tablet,delayed 40 mg PO QAM 02/28/19 12/06/23 release sodium chloride 0.65 % nasal drops 2 drops intranasal .INSTILL 2 02/28/19 03/03/22 SPRAY Berta PRN Nasal Congestion atorvastatin 20 mg tablet 20 mg PO QAM 04/07/20 03/03/22 fexofenadine 180 mg tablet 180 mg PO DAILY PRN ALLERGY RELIEF 04/07/20 12/06/23 ondansetron HCl 8 mg tablet 8 mg PO Q8H PRN Nausea 04/07/20 12/06/23 prochlorperazine maleate 10 mg 10 mg PO Q6H PRN Nausea 04/07/20 03/03/22 tablet acetaminophen 500 mg tablet 1,000 mg PO Q8H PRN Pain 01/28/21 12/06/23 (Tylenol Extra Strength) albuterol sulfate 90 mcg/actuation 2 puff inhalation Q4H PRN 01/28/21 12/06/23 aerosol inhaler Shortness Of Breath Or Wheezing biotin 300 mcg tablet 300 mcg PO DAILY 01/28/21 03/03/22 diclofenac sodium 1 % topical gel 1 g topical BID PRN pain 01/28/21 03/03/22 (Voltaren) gabapentin 300 mg capsule 300 mg PO TID 01/28/21 12/06/23 hydrocortisone 2.5 % topical cream 1 applic topical BID PRN 01/28/21 03/03/22 lorazepam 0.5 mg tablet 0.5 mg PO DAILY PRN Anxiety 01/28/21 12/06/23 magnesium 200 mg tablet 400 mg PO BID 01/28/21 03/03/22 nystatin 100,000 unit/gram topical 1 applic topical BID PRN 01/28/21 03/03/22 powder loratadine 10 mg capsule 10 mg PO DAILY 03/08/21 03/03/22 divalproex 500 mg tablet,extended 750 mg PO HS 03/03/22 03/03/22 release 24 hr divalproex 250 mg tablet,extended 750 mg PO HS 12/06/23 12/06/23 release 24 hr fluticasone propionate 50 2 spray intranasal QAM PRN 12/06/23 12/06/23 mcg/actuation nasal Congestion spray,suspension Previous Rx's Medication Instructions Recorded silver sulfadiazine 1 % topical 1 applic topical BID #85 grams 03/11/21 cream (Silvadene) oxybutynin chloride 15 mg See Rx Instructions .Route 09/06/23 tablet,extended release 24 hr .COMPLEX #90 tabs Results & Data (ED) Vital Signs Vital Signs - 24 hr 12/06/23 14:22 12/06/23 14:31 12/06/23 15:00 Temperature 36.6 C Temperature Source Oral Pulse Rate 66 66 67 Pulse Rate [Right Finger] Pulse Rate from SpO2 Sensor 66 Pulse Rhythm Regular Pulse Strength Normal Respiratory Rate 14 12 Respiratory Effort / Characteristics Non-Labored Respiratory Depth Normal Respiratory Pattern Regular Blood Pressure 134/82 115/64 Blood Pressure [Right Arm] Blood Pressure Mean 99 81 Blood Pressure Mean [Right Arm] Blood Pressure Position Sitting Pulse Oximetry 98 97 Oxygen Delivery Method Room Air Room Air Sepsis Recent Fever Within 48 Hours No Sepsis New/Unexplained Change in Mental Status N/A Sepsis Action Taken by Nursing No Action Required 12/06/23 16:00 12/06/23 17:06 12/06/23 17:10 Temperature Temperature Source Pulse Rate 63 71 Pulse Rate [Right Finger] 84 Pulse Rate from SpO2 Sensor 63 Pulse Rhythm Pulse Strength Respiratory Rate 16 20 16 Respiratory Effort / Characteristics Respiratory Depth Respiratory Pattern Blood Pressure 156/64 H 153/88 H Blood Pressure [Right Arm] 153/88 H Blood Pressure Mean 94 109 Blood Pressure Mean [Right Arm] 109 Blood Pressure Position Pulse Oximetry 98 100 96 Oxygen Delivery Method Room Air Room Air Sepsis Recent Fever Within 48 Hours Sepsis New/Unexplained Change in Mental Status Sepsis Action Taken by Nursing 12/06/23 18:33 Temperature Temperature Source Pulse Rate 67 Pulse Rate [Right Finger] Pulse Rate from SpO2 Sensor Pulse Rhythm Pulse Strength Respiratory Rate Respiratory Effort / Characteristics Respiratory Depth Respiratory Pattern Blood Pressure Blood Pressure [Right Arm] Blood Pressure Mean Blood Pressure Mean [Right Arm] Blood Pressure Position Pulse Oximetry Oxygen Delivery Method Sepsis Recent Fever Within 48 Hours Sepsis New/Unexplained Change in Mental Status Sepsis Action Taken by Nursing Laboratory Data 12/06/23 14:36 12/06/23 14:36 Lab Results 12/06/23 12/06/23 Range/Units 14:36 Unknown WBC 3.21 L (4.8-10.8) K/ul RBC 3.05 L (4.20-5.40) M/uL Hgb 9.2 L (12.0-16.0) g/dl Hct 27.5 L (37.0-47.0) % MCV 90.2 (80.0-100.0) fL MCH 30.2 (25.0-34.0) pg MCHC 33.5 (32.0-36.0) g/dL RDW Std Deviation 46.9 H (36.4-46.3) fL RDW Coeff of Priscila 14.4 (11.5-14.5) % Plt Count 244 (130-400) K/uL MPV 10.4 (9.4-12.4) fL Immature Gran % (Auto) 0.3 % Neut % (Auto) 65.5 % Lymph % (Auto) 19.9 % [place] % (Auto) 12.1 % Eos % (Auto) 1.9 % Baso % (Auto) 0.3 % Neut # (Auto) 2.10 (1.40-6.50) K/uL Lymph # (Auto) 0.64 L (1.20-3.40) K/uL [place] # (Auto) 0.39 (0.11-0.59) K/uL Eos # (Auto) 0.06 (0.00-0.50) K/uL Baso # (Auto) 0.01 (0.00-0.20) K/uL Immature Gran # (Auto) 0.01 (0.01-0.20) K/uL PT 11.3 (9.0-12.0) Seconds INR 1.0 (0.9-1.1) D-Dimer 1220 H* (0-500) ug/L FEU Sodium 127 L (136-145) mmol/L Potassium 4.1 (3.5-5.1) mmol/L Chloride 92 L (98-107) mmol/L Carbon Dioxide 30 (21-32) mmol/L Anion Gap 5 (3-11) BUN 13 (6-23) mg/dl Creatinine 0.64 (0.6-1.2) mg/dl Est Cr Clr Drug Dosing 74.4 ml/min Est GFR ( Amer) 97.7 ml/min Est GFR (Non-Af Amer) 84.3 ml/min BUN/Creatinine Ratio 20.3 H (10-20) Glucose 96 (70-99(Fasting)) mg/dl Calcium 9.0 (8.6-10.3) mg/dl Magnesium 1.2 L (1.7-2.4) mg/dl Total Bilirubin 0.4 (0.2-1.0) mg/dl AST 12 L (13-39) U/L ALT 4 L (7-52) U/L Alkaline Phosphatase 36 (34-104) U/L Troponin I High Sens 11.4 (0-14) pg/ml Total Protein 6.9 (6.0-8.3) gm/dl Albumin 3.6 (3.4-5.0) gm/dl Globulin 3.3 (2.5-4.0) gm/dl Albumin/Globulin Ratio 1.1 (0.9-2) Lipase 7 L (11-82) U/L TSH 3.400 (0.300-4.500) uIu/ml Urine Color Yellow Urine Appearance Clear (Clear) Urine pH 7.5 (4.5-7.5) Ur Specific [place] 1.012 (1.000-1.030) Urine Protein Negative (Negative) Urine Glucose (UA) Negative (Negative) Urine Ketones Negative (Negative) Urine Blood Negative (Negative) Urine Nitrite Negative (Negative) Urine Bilirubin Negative (Negative) Urine Urobilinogen Negative (Negative) Ur Leukocyte Esterase 1+ H (Negative) Urine WBC (Auto) 0-5 (0-5) /hpf Urine RBC (Auto) 0-2 (0-2) /hpf U Hyaline Cast (Auto) 0-2 (0-2) /lpf U Epithel Cells (Auto) 0-2 (0-2) /hpf Urine Bacteria (Auto) None Seen (None Seen) Adenovirus (PCR) Not Detected (NotDetected) B. pertussis DNA (PCR) Not Detected (NotDetected) B.parapertussis DNA PCR Not Detected (NotDetected) C. pneumoniae DNA (PCR) Not Detected (NotDetected) Coronavirus OC43 (PCR) Not Detected (NotDetected) Coronavirus HKU1 (PCR) Not Detected (NotDetected) Coronavirus 229E (PCR) Not Detected (NotDetected) SARS-CoV-2 (PCR) Not Detected (NotDetected) Coronavirus NL63 (PCR) Not Detected (NotDetected) Human Metapneumovir PCR Not Detected (NotDetected) Influenza Type A (PCR) Not Detected (NotDetected) Influenza Type B (PCR) Not Detected (NotDetected) M. pneumoniae (PCR) Not Detected (NotDetected) Parainfluenza 1 (PCR) Not Detected (NotDetected) Parainfluenza 2 (PCR) Not Detected (NotDetected) Parainfluenza 3 (PCR) Not Detected (NotDetected) Parainfluenza 4 (PCR) Not Detected (NotDetected) RSV (PCR) Not Detected (NotDetected) Entero/Rhino (PCR) Not Detected (NotDetected) Administered Medications Discontinued Medications Magnesium Sulfate/Dextrose (Magnesium Sulfate / D5w) 1 gm in 100 mls @ 100 mls/hr IV NOW STA Stop: 12/06/23 16:22 Last Infusion: 12/06/23 16:50 Dose: Infused Documented By: Admin: 12/06/23 15:49 Dose: 100 mls/hr [place]ed [place] [facility] [place] Sodium Chloride (Nss) 1,000 mls @ 999 mls/hr IV .Q1H1M ONE Stop: 12/06/23 16:24 Last Infusion: 12/06/23 16:50 Dose: Infused Documented By: Admin: 12/06/23 15:51 Dose: 999 mls/hr Documented By: [facility] [place] Ioversol (Optiray 320 125ml) 117 ml IV ONCE ONE Stop: 12/06/23 17:27 Last Admin: 12/06/23 17:26 Dose: 117 ml Documented By: [employer] Data Radiologist's Impression: Chest X-Ray 12/06/23 14:23 XR chest 1V portable HISTORY: Chest pain, nonspecific COMPARISON: Chest 04/08/2020. FINDINGS: No pneumothorax. No pleural effusions. The cardiac silhouette remains mildly enlarged. Coarse interstitial thickening remains stable and is likely chronic. There are calcifications within the aortic knob. No focal lung consolidations to suggest a pneumonia. No evidence for pulmonary edema. No acute fractures. A right jugular Port-A-Cath terminates in the SVC. This remains unchanged. IMPRESSION: No significant change compared to the prior study. No acute process. ACT 112: Negative or not required by law. Electronically signed by: Jv Busby M.D. 12/06/2023 3:16 PM Chest CTA 12/06/23 16:01 CT angio chest dissec wo/w con HISTORY: 78 years-old Female chest pain radiating into back acute chest pain COMPARISON: Chest CT 09/17/2012 TECHNIQUE: CTA of the chest was obtained with and without IV contrast. 3-D coronal and sagittal measurements were obtained and submitted for review. All measurements were obtained according to any as CT criteria. A dose lowering technique was used consistent with the principals of LOS. FINDINGS: CTA: Moderate cardiomegaly. No pericardial effusion. No thoracic aortic aneurysm or dissection. Unremarkable pulmonary artery. Noncontrast study demonstrates no intramural hematoma. Right IJ [id number] catheter distal tip terminates in mid SVC. Mitral annular and coronary arterial calcifications. CT CHEST: Trace pleural effusions. No pneumothorax. Mild postradiation fibrosis of the left lung. Mild subsegmental bibasilar atelectasis. No evidence of pulmonary metaphysis. Central airways are patent. Nonspecific mid to distal esophageal wall thickening. No acute upper abdominal abnormality. Body wall edema. There is moderate left breast and chest wall subcutaneous edema. No drainable fluid collections. The deep tissue edema involves the pectoralis musculature and supraclavicular tissues on the left. Degenerative changes of the shoulders and spine. There are no destructive bone lesions identified. IMPRESSION: 1. No acute aortic pathology or pulmonary emboli identified. 2. Trace pleural effusions with mild bibasilar atelectasis. 3. Posttreatment related changes of the left chest wall with left breast skin thickening and left chest wall edema, also likely posttreatment related. Findings could be correlated with physical exam findings and patient history. 4. No lymphadenopathy or evidence of pulmonary metastasis. 5. Nonspecific mid to distal esophageal wall thickening may represent esophagitis. ACT 112: Negative or not required by law. The above report was generated using voice recognition software. It may contain grammatical, syntax or spelling errors. Electronically signed by: Yony Flowers M.D. 12/06/2023 6:[address] 12/06/23 16:01 CT head/brain wo con CLINICAL HISTORY: 78 years-old Female with weakness. Acute weakness TECHNIQUE: Multiple axial CT images of the head were obtained without contrast. A dose lowering technique was utilized adhering to the principles of ALARA. COMPARISON: None FINDINGS: No acute intracranial hemorrhage, midline shift, intracranial mass, hydrocephalus, territorial ischemia or abnormal extra-axial collection. Involutional changes with chronic microvascular ischemic disease. Chronic appearing subcentimeter left cerebellar lacunar infarct. The calvarium is intact. Trace mastoid effusions. Paranasal sinuses are generally clear. Prior bilateral lens repair. IMPRESSION: No acute intracranial abnormality. ACT 112: Negative or not required by law. The above report was generated using voice recognition software. It may contain grammatical, syntax or spelling errors. Electronically signed by: Yony Flowers M.D. 12/06/2023 6:09 PM Discharge Plan Visit Data Chief Complaint: Weakness Stated Complaint: WEAKNESS ED Provider: Jennifer Marsh Discharge Problem: Generalized weakness, Ambulatory dysfunction, Acute hyponatremia, Hypomagnesemia, Chest pain Forms Stand Alone Forms: [facility] [place] Prescriptions Prescriptions: No Action lorazepam 0.5 mg tablet 0.5 mg PO DAILY PRN (Reason: Anxiety) nystatin 100,000 unit/gram powder 1 applic topical BID PRN hydrocortisone 2.5 % cream 1 applic topical BID PRN diclofenac sodium [Voltaren] 1 % gel 1 g topical BID PRN (Reason: pain) Rx Instructions: Apply to affected areas four times daily as directed magnesium 200 mg tablet 400 mg PO BID albuterol sulfate 90 mcg/actuation HFA aerosol inhaler 2 puff inhalation Q4H PRN (Reason: Shortness Of Breath Or Wheezing) acetaminophen [Tylenol Extra Strength] 500 mg tablet 1,000 mg PO Q8H PRN (Reason: Pain) biotin 300 mcg tablet 300 mcg PO DAILY loratadine 10 mg capsule 10 mg PO DAILY silver sulfadiazine [Silvadene] 1 % cream 1 applic topical BID Qty: 85 3RF Rx Instructions: apply a 1.5 mm thickness oxybutynin chloride 15 mg tablet extended release 24hr See Rx Instructions .ROUTE .COMPLEX Qty: 90 1RF Dose Instruction: TAKE 1 TABLET BY MOUTH DAILY Rx Instructions: TAKE 1 TABLET BY MOUTH DAILY fluoxetine 20 mg capsule 20 mg PO HS cholecalciferol (vitamin D3) 1,000 unit capsule 25 mcg PO QAM pantoprazole 40 mg tablet,delayed release (DR/EC) 40 mg PO QAM sodium chloride 0.65 % drops 2 drops intranasal .INSTILL 2 SPRAY Berta PRN (Reason: Nasal Congestion) loperamide 2 mg capsule 2 mg PO .By mouth prn for ana m PRN (Reason: Diarrhea) (DME) Oxygen Home Liters Per Minute See Dose Instructions .ROUTE .MEDSUPPLY Qty: 1 Rx Instructions: As directed divalproex 500 mg tablet extended release 24 hr 750 mg PO HS atorvastatin 20 mg Tablet 20 mg PO QAM ondansetron HCl 8 mg Tablet 8 mg PO Q8H PRN (Reason: Nausea) fexofenadine 180 mg Tablet 180 mg PO DAILY PRN (Reason: ALLERGY RELIEF) prochlorperazine maleate 10 mg Tablet 10 mg PO Q6H PRN (Reason: Nausea) gabapentin 300 mg capsule 300 mg PO TID Patient Comments: PT TAKES 1 CAP EVERY AM AND 1 CAP EVERY OTHER NIGHT Rx Instructions: TAKE THIS MED IN THE AM, MID-DAY, AND BEDTIME. fluticasone propionate 50 mcg/actuation spray,suspension 2 spray INTRANASAL QAM PRN (Reason: Congestion) divalproex 250 mg tablet extended release 24 hr 750 mg PO HS Referrals Referrals: Jose M Seth MD [Primary Care Provider] -
[2023-12-06 15:09] LABS: Basophils # (auto) 0.01 K/uL (0.00-0.20); Basophils % (auto) 0.3 %; Eosinophils # (auto) 0.06 K/uL (0.00-0.50); Eosinophils % (auto) 1.9 %; Hematocrit (blood only) 27.5 % (37.0-47.0); Hemoglobin 9.2 g/dl (12.0-16.0); Immature Granulocytes # (auto) 0.01 K/uL (0.01-0.20); Immature Granulocytes % (auto) 0.3 %; Lymphocytes # (auto) 0.64 K/uL (1.20-3.40); Lymphocytes % (auto) 19.9 %; Mean Corpuscular Hemoglobin 30.2 pg (25.0-34.0); Mean Corpuscular Hgb Conc 33.5 g/dL (32.0-36.0); Mean Corpuscular Volume 90.2 fL (80.0-100.0); Mean Platelet Volume 10.4 fL (9.4-12.4); Monocytes # (auto) 0.39 K/uL (0.11-0.59); Monocytes % (auto) 12.1 %; Neutrophils % (auto) 65.5 %; Platelet Count 244 K/uL (130-400); RDW Coefficient of Variation 14.4 % (11.5-14.5); RDW Standard Deviation 46.9 fL (36.4-46.3); Red Blood Count 3.05 M/uL (4.20-5.40); White Blood Count 3.21 K/ul (4.8-10.8)
--- NOTE | 2023-12-06 15:17 | XRay Report ---
XR chest 1V portable HISTORY: Chest pain, nonspecific COMPARISON: Chest 04/08/2020. FINDINGS: No pneumothorax. No pleural effusions. The cardiac silhouette remains mildly enlarged. Coar se interstitial thickening remains stable and is likely chronic. There are calcifications within the aortic knob. No focal lung consolidations to suggest a pneumonia. No evidence for pulmonary edema. No acute fractures. A right jugular Port-A-Cath terminates in the SVC. This remains unchanged. IMPRESSION: No significant change compared to the prior study. No acute process. ACT 112: Negative or not required by law. Electronically signed by: Jv Busby M.D. 12/06/2023 3:16 PM
[2023-12-06 15:19] LABS: Albumin Globulin Ratio 1.1 (0.9-2); Albumin Level 3.6 gm/dl (3.4-5.0); BUN Creatinine Ratio 20.3 (10-20); Bilirubin,Total 0.4 mg/dl (0.2-1.0); Creatinine Clr Calc Pharmacy 74.4 ml/min; Est GFR (African American) 97.7 ml/min; Est GFR (Non-African American) 84.3 ml/min; Globulin 3.3 gm/dl (2.5-4.0); Magnesium 1.2 mg/dl (1.7-2.4); Potassium 4.1 mmol/L (3.5-5.1); Total Protein 6.9 gm/dl (6.0-8.3)
[2023-12-06 15:25] LABS: Troponin I High Sensitivity 11.4 pg/ml (0-14)
[2023-12-06 15:34] LABS: Thyroid Stimulating Hormone 3.4 uIu/ml (0.300-4.500)
[2023-12-06 15:43] LABS: Adenovirus PCR Not Detected (NotDetected); Bordetella parapertussis PCR Not Detected (NotDetected); Bordetella pertussis PCR Not Detected (NotDetected); Chlamydia pneumoniae PCR Not Detected (NotDetected); Coronavirus 229E PCR Not Detected (NotDetected); Coronavirus CoV-2 (COVID19)PCR Not Detected (NotDetected); Coronavirus HKU1 PCR Not Detected (NotDetected); Coronavirus NL63 PCR Not Detected (NotDetected); Coronavirus OC43PCR Not Detected (NotDetected); Human Metapneumovirus PCR Not Detected (NotDetected); Influenza A PCR Not Detected (NotDetected); Influenza B PCR Not Detected (NotDetected); Mycoplasma pneumoniae PCR Not Detected (NotDetected); Parainfluenza Virus 1 PCR Not Detected (NotDetected); Parainfluenza Virus 2 PCR Not Detected (NotDetected); Parainfluenza Virus 3 PCR Not Detected (NotDetected); Parainfluenza Virus 4 PCR Not Detected (NotDetected); Respiratory Syncytial VirusPCR Not Detected (NotDetected); Rhinovirus/Enterovirus PCR Not Detected (NotDetected)
[2023-12-06] MEDS: MAGNESIUM SULFATE / D5W 1 GM/100 ML BAG IV STA (15:49)
[2023-12-06 15:51] LABS: Prothrombin Time 11.3 Seconds (9.0-12.0)
[2023-12-06] MEDS: SODIUM CHLORIDE 0.9% 1,000 ML IV ONE (15:51)
[2023-12-06 15:55] LABS: D Dimer 1220 ug/L FEU (0-500)
[2023-12-06 16:11] LABS: Appearance Urine Clear (Clear); Bacteria Urine Automated None Seen (None Seen); Bilirubin Urine Negative (Negative); Blood Urine Negative (Negative); Cast Urine Automated 0-2 /lpf (0-2); Color Urine Yellow; Epithelial Cell Urine Auto 0-2 /hpf (0-2); Glucose Urine UA Negative (Negative); Ketones Urine Negative (Negative); Leukocyte Esterase Urine 1+ (Negative); Nitrite Urine Negative (Negative); Protein Urine Negative (Negative); RBC Urine Automated 0-2 /hpf (0-2); Specific Gravity Urine 1.012 (1.000-1.030); Urobilinogen Urine Negative (Negative); WBC Urine Automated 0-5 /hpf (0-5); pH Urine 7.5 (4.5-7.5)
[2023-12-06] MEDS: OPTIRAY 320 125ml IV ONE (17:26)
--- NOTE | 2023-12-06 18:10 | CT Scan Report ---
CT head/brain wo con CLINICAL HISTORY: 78 years-old Female with weakness. Acute weakness TECHNIQUE: Multiple axial CT images of the head were obtained without contrast. A dose lowering tech nique was utilized adhering to the principles of ALARA. COMPARISON: None FINDINGS: No acute intracranial hemorrhage, midline shift, intracranial mass, hydrocephalus, territorial ischem ia or abnormal extra-axial collection. Involutional changes with chronic microvascular ischemic disea se. Chronic appearing subcentimeter left cerebellar lacunar infarct. The calvarium is intact. Trace mastoid effusions. Paranasal sinuses are generally clear. Prior bilat eral lens repair. IMPRESSION: No acute intracranial abnormality. ACT 112: Negative or not required by law. The above report was generated using voice recognition software. It may contain grammatical, syntax o r spelling errors. Electronically signed by: Yony Flowers M.D. 12/06/2023 6:09 PM
--- NOTE | 2023-12-06 18:26 | CT Scan Report ---
CT angio chest dissec wo/w con HISTORY: 78 years-old Female chest pain radiating into back acute chest pain COMPARISON: Chest CT 09/17/2012 TECHNIQUE: CTA of the chest was obtained with and without IV contrast. 3-D coronal and sagittal measu rements were obtained and submitted for review. All measurements were obtained according to any as CT criteria. A dose lowering technique was used consistent with the principals of LOS. FINDINGS: CTA: Moderate cardiomegaly. No pericardial effusion. No thoracic aortic aneurysm or dissection. Unremarkab le pulmonary artery. Noncontrast study demonstrates no intramural hematoma. Right IJ [id number] ca theter distal tip terminates in mid SVC. Mitral annular and coronary arterial calcifications. CT CHEST: Trace pleural effusions. No pneumothorax. Mild postradiation fibrosis of the left lung. Mild subsegme ntal bibasilar atelectasis. No evidence of pulmonary metaphysis. Central airways are patent. Nonspeci fic mid to distal esophageal wall thickening. No acute upper abdominal abnormality. Body wall edema. There is moderate left breast and chest wall subcutaneous edema. No drainable fluid collections. The deep tissue edema involves the pectoralis musculature and supraclavicular tissues on the left. Degene rative changes of the shoulders and spine. There are no destructive bone lesions identified. IMPRESSION: 1. No acute aortic pathology or pulmonary emboli identified. 2. Trace pleural effusions with mild bibasilar atelectasis. 3. Posttreatment related changes of the left chest wall with left breast skin thickening and left delia st wall edema, also likely posttreatment related. Findings could be correlated with physical exam fin dings and patient history. 4. No lymphadenopathy or evidence of pulmonary metastasis. 5. Nonspecific mid to distal esophageal wall thickening may represent esophagitis. ACT 112: Negative or not required by law. The above report was generated using voice recognition software. It may contain grammatical, syntax o r spelling errors. Electronically signed by: Yony Flowers M.D. 12/06/2023 6:24 PM
--- NOTE | 2023-12-06 18:34 | Electrocardiogram Report ---
Test Reason : Blood Pressure : / mmHG Vent. Rate : 067 BPM Atrial Rate : 000 BPM P-R Int : 000 ms QRS Dur : 092 ms QT Int : 436 ms P-R-T Axes : 000 023 040 degrees QTc Int : 460 ms Normal sinus rhythm Confirmed by Cassius Cerrato ([id number]) on 12/06/2023 6:34:22 PM Referred By: REFERRED SELF Confirmed By:Ángel Cerrato
--- NOTE | 2023-12-06 21:04 | History & Physical Report ---
Date of Service December 06, 2023 Assessment & Plan (1) Acute hyponatremia: Plan: Secondary to abdominal issues Chest pain secondary to uncontrolled GERD Complicated UTI, no sepsis for now chronic diastolic heart failure (55 to 60%, TTE 2022), patient on the dry side moderate hypertension, BP on the lower side bronchial asthma, pulmonary hypertension JOO on CPAP prediabetes, hemoglobin A1c of 5.3 this year left breast cancer status post surgery endometrial cancer status post surgery Acute on chronic anemia, hemoglobin drop from baseline secondary to intermittent LGIB, outpatient anemia workup recently completed, patient hesitant as needed blood transfusion consent for now anxiety/mood disorder, at baseline Medical telemetry Recheck serum sodium after initial fluid bolus given at the ER Increase PPI dosing to twice daily Urine CS, Ceftriaxone PT OT eval DVT prophylaxis. SCDs RE LGIB Full code Patient request for daughter to be given updates regarding care. Ms. Molina Barrera, contact #[phone]. Text document was generated using [employer] voice recognition software. It may contain grammatical or spelling errors. Kindly contact undersigned for clarification of any documentation item in question. History of Present Illness Chief Complaint: Weakness Primary Care Provider: Jose M Seth MD History obtained from patient and records. Medical history significant for chronic diastolic heart failure (55 to 60%, TTE 2022), moderate , hypertension, bronchial asthma, pulmonary hypertension, JOO on CPAP, GERD, prediabetes, left breast cancer status post surgery/radiation, endometrial cancer status post surgery/chemotherapy, urinary incontinence as per records, MGUS, chronic anemia (baseline hemoglobin of 10), anxiety/mood disorder, OCD. Last confinement 2016 for sepsis secondary to left hip cellulitis. 1 week history of burning left-sided chest pain, intermittent symptoms with occasional radiation to the shoulders. Intermittent achy upper abdominal pain with hematochezia attributed to hemorrhoids as per patient. Poor appetite, patient lightheaded. Increasing weakness. No fever, no chills. Patient brought to ER for evaluation. Medical History as above Surgical History : Knee surgery, carpal tunnel surgery, lymph node biopsy, cataract surgery, partial mastectomy left, cholecystectomy, hernia repair, [place], hip replacement, left salpingectomy/oophorectomy, vitrectomy Family History : COPD, cervical cancer, heart disease, lung cancer, stroke Personal/Social history : Non-smoker, no EtOH intake Allergies Allergy/AdvReac Type Severity Reaction Status Date / Time adhesive Allergy Intermediate ADHESIVE Verified 12/06/23 18:30 TAPE -- BLISTERS cetirizine Allergy Intermediate SORES IN Verified 12/06/23 18:30 MOUTH, HEAD CONGESTION dicloxacillin Allergy Intermediate MOUTH SORE Verified 12/06/23 18:30 erythromycin base Allergy Intermediate SORES IN Verified 12/06/23 18:30 MOUTH rifampin Allergy Intermediate elevated Verified 12/06/23 18:30 LFT's codeine AdvReac Mild NAUSEA Verified 12/06/23 18:30 doxycycline AdvReac Mild NAUSEA Verified 12/06/23 18:31 morphine AdvReac Mild "MAKES ME Verified 12/06/23 18:31 FEEL LOOPY" tetracycline AdvReac Mild NAUSEA Verified 12/06/23 18:31 NSAIDS (Non-Steroidal AdvReac Due to Verified 12/06/23 18:31 Anti-Inflamma kidney problems tramadol [From Ultram] AdvReac Nausea Verified 12/06/23 18:31 Home Medications Medication Instructions Recorded Confirmed Type Oxygen Home #1 ea 02/28/19 03/03/22 History cholecalciferol (vitamin D3) 25 25 mcg PO QAM 02/28/19 12/06/23 History mcg (1,000 unit) capsule fluoxetine 20 mg capsule 20 mg PO HS 02/28/19 12/06/23 History loperamide 2 mg capsule 2 mg PO .By mouth prn for ana m PRN 02/28/19 12/06/23 History Diarrhea pantoprazole 40 mg tablet,delayed 40 mg PO QAM 02/28/19 12/06/23 History release sodium chloride 0.65 % nasal drops 2 drops intranasal .INSTILL 2 02/28/19 12/06/23 History SPRAY Berta PRN Nasal Congestion atorvastatin 20 mg tablet 20 mg PO QAM 04/07/20 12/06/23 History fexofenadine 180 mg tablet 180 mg PO DAILY PRN ALLERGY RELIEF 04/07/20 12/06/23 History ondansetron HCl 8 mg tablet 8 mg PO Q8H PRN Nausea 04/07/20 12/06/23 History acetaminophen 500 mg tablet 1,000 mg PO Q8H PRN Pain 01/28/21 12/06/23 History (Tylenol Extra Strength) albuterol sulfate 90 mcg/actuation 2 puff inhalation Q4H PRN 01/28/21 12/06/23 History aerosol inhaler Shortness Of Breath Or Wheezing biotin 300 mcg tablet 300 mcg PO DAILY 01/28/21 12/06/23 History gabapentin 300 mg capsule 300 mg PO TID 01/28/21 12/06/23 History lorazepam 0.5 mg tablet 0.5 mg PO DAILY PRN Anxiety 01/28/21 12/06/23 History diclofenac sodium 1 % topical gel 4 g topical QID PRN Pain 12/06/23 12/06/23 History divalproex 250 mg tablet,extended 750 mg PO HS 12/06/23 12/06/23 History release 24 hr fluticasone propionate 50 2 spray intranasal QAM PRN 12/06/23 12/06/23 History mcg/actuation nasal Congestion spray,suspension oxybutynin chloride 15 mg 15 mg PO QAM 12/06/23 12/06/23 History tablet,extended release 24 hr Past Med/Surg History Problem List (Updated 12/06/23 @ 19:25 by Jennifer Marsh MD) Chest pain (Acute) Hypomagnesemia (Acute) Acute hyponatremia (Acute) Ambulatory dysfunction (Acute) Generalized weakness (Acute) Malignant neoplasm of lower-inner quadrant of left breast in female, estrogen receptor negative (Chronic 02/26/20) Medical History ALBERT (acute kidney injury) Anemia Anxiety and depression Aortic stenosis Arthritis Asthma Bipolar disorder Degenerative disc disease Diastolic dysfunction Environmental and seasonal allergies GERD (gastroesophageal reflux disease) Hip bursitis, left History of endometrial cancer Hyperlipidemia IBS (irritable bowel syndrome) Incontinence Malignant neoplasm of lower-inner quadrant of left breast in female, estrogen receptor negative (02/26/20) MGUS (monoclonal gammopathy of unknown significance) Morbid obesity with BMI of 45.0-49.9, adult MRSA infection OCD (obsessive compulsive disorder) JOO (obstructive sleep apnea) Restless leg syndrome Sleep apnea Urge incontinence of urine Urinary urgency Surgical History H/O breast biopsy H/O eye surgery H/O umbilical hernia repair History of anesthesia reaction History of carpal tunnel surgery History of cataract surgery History of colonoscopy History of esophagogastroduodenoscopy (EGD) History of hysterectomy History of left hip replacement Hx of cholecystectomy S/P ectopic Status post total knee replacement, right Family History Mother Cervical cancer Status post cardiac surgery Hypertension Father Lung cancer Brother COPD (chronic obstructive pulmonary disease) Brother Lung cancer Brother Lung cancer Heart disease Sister No problems noted. Sister Asthma Sister No problems noted. Son Muscular dystrophy Son No problems noted. Daughter No problems noted. Daughter No problems noted. Daughter No problems noted. 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 Feels Safe at Home: Yes Diet: regular caffeine: Yes (2-3 cups/day) during the past year weight has: remained stable Assistive Devices: Denture - Upper, Denture - Lower, Glasses, Walker and Wheelchair Review of Systems Review of Systems: As per HPI, all other systems reviewed and negative Physical Exam Physical Exam: GENERAL: Comfortable, slightly anxious, obese, pallor, no respiratory distress SKIN: Pallor, warm HEENT: Pale palpebral conjunctivae, no ptosis, dry buccal mucosa NECK : Supple, no tenderness CHEST : CTA, no tenderness HEART : RRR, systolic murmur ABDOMEN: Some distention, minimal epigastric tenderness EXTREMITIES : No LE swelling/tenderness, no other conspicuous deformities noted NEUROLOGIC : Coherent, no facial asymmetry, no other gross focality Results & Data Results & Data Vital Signs (Past 12 Hours) Vital Signs Temp Pulse Pulse Resp BP BP Pulse Ox 12/06/23 18:33 67 12/06/23 17:10 84 16 153/88 H 96 12/06/23 17:06 71 20 153/88 H 100 12/06/23 16:00 63 16 156/64 H 98 12/06/23 15:00 67 12 115/64 97 12/06/23 14:31 66 12/06/23 14:22 36.6 C 66 14 134/82 98 O2 Del Method 12/06/23 18:33 12/06/23 17:10 12/06/23 17:06 Room Air 12/06/23 16:00 Room Air 12/06/23 15:00 Room Air 12/06/23 14:31 12/06/23 14:22 Room Air Laboratory Results Laboratory Results WBC 3.21 K/ul (4.8-10.8) L 12/06/23 14:36 RBC 3.05 M/uL (4.20-5.40) L 12/06/23 14:36 Hgb 9.2 g/dl (12.0-16.0) L 12/06/23 14:36 Hct 27.5 % (37.0-47.0) L 12/06/23 14:36 MCV 90.2 fL (80.0-100.0) 12/06/23 14:36 MCH 30.2 pg (25.0-34.0) 12/06/23 14:36 MCHC 33.5 g/dL (32.0-36.0) 12/06/23 14:36 RDW Std Deviation 46.9 fL (36.4-46.3) H 12/06/23 14:36 RDW Coeff of Priscila 14.4 % (11.5-14.5) 12/06/23 14:36 Plt Count 244 K/uL (130-400) 12/06/23 14:36 MPV 10.4 fL (9.4-12.4) 12/06/23 14:36 Immature Gran % (Auto) 0.3 % 12/06/23 14:36 Neut % (Auto) 65.5 % 12/06/23 14:36 Lymph % (Auto) 19.9 % 12/06/23 14:36 [place] % (Auto) 12.1 % 12/06/23 14:36 Eos % (Auto) 1.9 % 12/06/23 14:36 Baso % (Auto) 0.3 % 12/06/23 14:36 Neut # (Auto) 2.10 K/uL (1.40-6.50) 12/06/23 14:36 Lymph # (Auto) 0.64 K/uL (1.20-3.40) L 12/06/23 14:36 [place] # (Auto) 0.39 K/uL (0.11-0.59) 12/06/23 14:36 Eos # (Auto) 0.06 K/uL (0.00-0.50) 12/06/23 14:36 Baso # (Auto) 0.01 K/uL (0.00-0.20) 12/06/23 14:36 Immature Gran # (Auto) 0.01 K/uL (0.01-0.20) 12/06/23 14:36 PT 11.3 Seconds (9.0-12.0) 12/06/23 14:36 INR 1.0 (0.9-1.1) 12/06/23 14:36 D-Dimer 1220 ug/L FEU (0-500) H* 12/06/23 14:36 Sodium 127 mmol/L (136-145) L 12/06/23 14:36 Potassium 4.1 mmol/L (3.5-5.1) 12/06/23 14:36 Chloride 92 mmol/L (98-107) L 12/06/23 14:36 Carbon Dioxide 30 mmol/L (21-32) 12/06/23 14:36 Anion Gap 5 (3-11) 12/06/23 14:36 BUN 13 mg/dl (6-23) 12/06/23 14:36 Creatinine 0.64 mg/dl (0.6-1.2) 12/06/23 14:36 Est Cr Clr Drug Dosing 74.4 ml/min 12/06/23 14:36 Est GFR ( Amer) 97.7 ml/min 12/06/23 14:36 Est GFR (Non-Af Amer) 84.3 ml/min 12/06/23 14:36 BUN/Creatinine Ratio 20.3 (10-20) H 12/06/23 14:36 Glucose 96 mg/dl (70-99(Fasting)) 12/06/23 14:36 Calcium 9.0 mg/dl (8.6-10.3) 12/06/23 14:36 Magnesium 1.2 mg/dl (1.7-2.4) L 12/06/23 14:36 Total Bilirubin 0.4 mg/dl (0.2-1.0) 12/06/23 14:36 AST 12 U/L (13-39) L 12/06/23 14:36 ALT 4 U/L (7-52) L 12/06/23 14:36 Alkaline Phosphatase 36 U/L (34-104) 12/06/23 14:36 Troponin I High Sens 11.4 pg/ml (0-14) 12/06/23 14:36 Total Protein 6.9 gm/dl (6.0-8.3) 12/06/23 14:36 Albumin 3.6 gm/dl (3.4-5.0) 12/06/23 14:36 Globulin 3.3 gm/dl (2.5-4.0) 12/06/23 14:36 Albumin/Globulin Ratio 1.1 (0.9-2) 12/06/23 14:36 Lipase 7 U/L (11-82) L 12/06/23 14:36 TSH 3.400 uIu/ml (0.300-4.500) 12/06/23 14:36 Urine Color Yellow 12/06/23 Unknown Urine Appearance Clear (Clear) 12/06/23 Unknown Urine pH 7.5 (4.5-7.5) 12/06/23 Unknown Ur Specific [place] 1.012 (1.000-1.030) 12/06/23 Unknown Urine Protein Negative (Negative) 12/06/23 Unknown Urine Glucose (UA) Negative (Negative) 12/06/23 Unknown Urine Ketones Negative (Negative) 12/06/23 Unknown Urine Blood Negative (Negative) 12/06/23 Unknown Urine Nitrite Negative (Negative) 12/06/23 Unknown Urine Bilirubin Negative (Negative) 12/06/23 Unknown Urine Urobilinogen Negative (Negative) 12/06/23 Unknown Ur Leukocyte Esterase 1+ (Negative) H 12/06/23 Unknown Urine WBC (Auto) 0-5 /hpf (0-5) 12/06/23 Unknown Urine RBC (Auto) 0-2 /hpf (0-2) 12/06/23 Unknown U Hyaline Cast (Auto) 0-2 /lpf (0-2) 12/06/23 Unknown U Epithel Cells (Auto) 0-2 /hpf (0-2) 12/06/23 Unknown Urine Bacteria (Auto) None Seen (None Seen) 12/06/23 Unknown Adenovirus (PCR) Not Detected (NotDetected) 12/06/23 14:36 B. pertussis DNA (PCR) Not Detected (NotDetected) 12/06/23 14:36 B.parapertussis DNA PCR Not Detected (NotDetected) 12/06/23 14:36 C. pneumoniae DNA (PCR) Not Detected (NotDetected) 12/06/23 14:36 Coronavirus OC43 (PCR) Not Detected (NotDetected) 12/06/23 14:36 Coronavirus HKU1 (PCR) Not Detected (NotDetected) 12/06/23 14:36 Coronavirus 229E (PCR) Not Detected (NotDetected) 12/06/23 14:36 SARS-CoV-2 (PCR) Not Detected (NotDetected) 12/06/23 14:36 Coronavirus NL63 (PCR) Not Detected (NotDetected) 12/06/23 14:36 Human Metapneumovir PCR Not Detected (NotDetected) 12/06/23 14:36 Influenza Type A (PCR) Not Detected (NotDetected) 12/06/23 14:36 Influenza Type B (PCR) Not Detected (NotDetected) 12/06/23 14:36 M. pneumoniae (PCR) Not Detected (NotDetected) 12/06/23 14:36 Parainfluenza 1 (PCR) Not Detected (NotDetected) 12/06/23 14:36 Parainfluenza 2 (PCR) Not Detected (NotDetected) 12/06/23 14:36 Parainfluenza 3 (PCR) Not Detected (NotDetected) 12/06/23 14:36 Parainfluenza 4 (PCR) Not Detected (NotDetected) 12/06/23 14:36 RSV (PCR) Not Detected (NotDetected) 12/06/23 14:36 Entero/Rhino (PCR) Not Detected (NotDetected) 12/06/23 14:36 Impressions Chest X-Ray 12/06/23 14:23 XR chest 1V portable HISTORY: Chest pain, nonspecific COMPARISON: Chest 04/08/2020. FINDINGS: No pneumothorax. No pleural effusions. The cardiac silhouette remains mildly enlarged. Coarse interstitial thickening remains stable and is likely chronic. There are calcifications within the aortic knob. No focal lung consolidations to suggest a pneumonia. No evidence for pulmonary edema. No acute fractures. A right jugular Port-A-Cath terminates in the SVC. This remains unchanged. IMPRESSION: No significant change compared to the prior study. No acute process. ACT 112: Negative or not required by law. Electronically signed by: Jv Busby M.D. 12/06/2023 3:16 PM Chest CTA 12/06/23 16:01 CT angio chest dissec wo/w con HISTORY: 78 years-old Female chest pain radiating into back acute chest pain COMPARISON: Chest CT 09/17/2012 TECHNIQUE: CTA of the chest was obtained with and without IV contrast. 3-D coronal and sagittal measurements were obtained and submitted for review. All measurements were obtained according to any as CT criteria. A dose lowering technique was used consistent with the principals of LOS. FINDINGS: CTA: Moderate cardiomegaly. No pericardial effusion. No thoracic aortic aneurysm or dissection. Unremarkable pulmonary artery. Noncontrast study demonstrates no intramural hematoma. Right IJ [id number] catheter distal tip terminates in mid SVC. Mitral annular and coronary arterial calcifications. CT CHEST: Trace pleural effusions. No pneumothorax. Mild postradiation fibrosis of the left lung. Mild subsegmental bibasilar atelectasis. No evidence of pulmonary metaphysis. Central airways are patent. Nonspecific mid to distal esophageal wall thickening. No acute upper abdominal abnormality. Body wall edema. There is moderate left breast and chest wall subcutaneous edema. No drainable fluid collections. The deep tissue edema involves the pectoralis musculature and supraclavicular tissues on the left. Degenerative changes of the shoulders and spine. There are no destructive bone lesions identified. IMPRESSION: 1. No acute aortic pathology or pulmonary emboli identified. 2. Trace pleural effusions with mild bibasilar atelectasis. 3. Posttreatment related changes of the left chest wall with left breast skin thickening and left chest wall edema, also likely posttreatment related. Findings could be correlated with physical exam findings and patient history. 4. No lymphadenopathy or evidence of pulmonary metastasis. 5. Nonspecific mid to distal esophageal wall thickening may represent esophagitis. ACT 112: Negative or not required by law. The above report was generated using voice recognition software. It may contain grammatical, syntax or spelling errors. Electronically signed by: Yony Flowers M.D. 12/06/2023 6:[address] 12/06/23 16:01 CT head/brain wo con CLINICAL HISTORY: 78 years-old Female with weakness. Acute weakness TECHNIQUE: Multiple axial CT images of the head were obtained without contrast. A dose lowering technique was utilized adhering to the principles of ALARA. COMPARISON: None FINDINGS: No acute intracranial hemorrhage, midline shift, intracranial mass, hydrocephalus, territorial ischemia or abnormal extra-axial collection. Inv olutional changes with chronic microvascular ischemic disease. Chronic appearing subcentimeter left cerebellar lacunar infarct. The calvarium is intact. Trace mastoid effusions. Paranasal sinuses are generally clear. Prior bilateral lens repair. IMPRESSION: No acute intracranial abnormality. ACT 112: Negative or not required by law. The above report was generated using voice recognition software. It may contain grammatical, syntax or spelling errors. Electronically signed by: Yony Flowers M.D. 12/06/2023 6:09 PM Diagnostic Findings EKG as per my interpretation : Rate 65, NSR, normal axis, T wave abnormalities septal leads
[2023-12-06] MEDS ORDERED: ACETAMINOPHEN 325 MG TAB PO PRN (21:11)
[2023-12-06] MEDS ORDERED: PROMETHAZINE HCL 6.25 MG in SODIUM CHLORIDE 0.9% 50 ML IV PRN (21:11)
[2023-12-06] MEDS: PANTOprazole 40 MG in SYRINGE 0 ML IV ONE (21:52)
[2023-12-06] MEDS: cefTRIAXone SODIUM 2,000 MG/50 ML BAG IV STA (21:54)
[2023-12-06 22:04] LABS: Troponin I High Sensitivity 13.2 pg/ml (0-14)
[2023-12-06] MEDS ORDERED: DICLOFENAC SOD 1% GEL 100 GM TUBE EXT PRN (23:28)
[2023-12-07] MEDS: FLUoxetine HCL 20 MG CAP PO SCH (00:51)
[2023-12-07] MEDS: GABAPENTIN 300 MG CAP PO SCH (00:51)
[2023-12-07] MEDS: DIVALPROEX EXTENDED RELEASE 250 MG TABCR PO SCH (00:51)
[2023-12-07] MEDS: ATORVASTATIN 20 MG TAB PO SCH (00:52)
--- NOTE | 2023-12-07 02:12 | CT Scan Report ---
Exam(s): CT ABDOMEN + PELVIS Without Contrast EXAM: CT Abdomen and Pelvis Without Intravenous Contrast CLINICAL HISTORY: Reason for exam: abd pain. TECHNIQUE: Axial computed tomography images of the abdomen and pelvis without intravenous contrast. CTDI is 26 mGy and DLP is 1244 mGy-cm. Automated exposure control was utilized for the study. A dose lowering technique was utilized adhering to the principles of ALARA. COMPARISON: No relevant prior studies available. FINDINGS: Lung bases: Unremarkable. No mass. No consolidation. ABDOMEN: Liver: Unremarkable. Gallbladder and bile ducts: Cholecystectomy. No ductal dilation. Pancreas: Unremarkable. No ductal dilation. Spleen: Unremarkable. No splenomegaly. Adrenals: Unremarkable. No mass. Kidneys and ureters: Unremarkable. No obstructing stones. No hydronephrosis. Stomach and bowel: Diverticulosis, without acute diverticulitis. No small bowel obstruction. No free intraperitoneal air. PELVIS: Appendix: No findings to suggest acute appendicitis. Bladder: Unremarkable. No stones. Reproductive: Unremarkable as visualized. ABDOMEN and PELVIS: Intraperitoneal space: Unremarkable. No free air. No free fluid in the pelvis. Retroperitoneal space: Surgical clips in the retroperitoneum, correlate with surgical history. Bones/joints: Degenerative changes of the spine. LEFT hip arthroplasty. No acute fracture. No dislocation. Soft tissues: Unremarkable. Vasculature: Atherosclerotic changes of the aorta. No abdominal aortic aneurysm. Lymph nodes: Unremarkable. No enlarged lymph nodes. IMPRESSION: Diverticulosis, without acute diverticulitis. No small bowel obstruction. No free intraperitoneal air. Electronically signed by: Kenny Pablo MD 12/07/23 02:11 AM
[2023-12-07 06:27] LABS: Basophils # (auto) 0.01 K/uL (0.00-0.20); Basophils % (auto) 0.3 %; Eosinophils # (auto) 0.13 K/uL (0.00-0.50); Eosinophils % (auto) 3.9 %; Hemoglobin 8.8 g/dl (12.0-16.0); Immature Granulocytes # (auto) 0.01 K/uL (0.01-0.20); Immature Granulocytes % (auto) 0.3 %; Lymphocytes # (auto) 0.94 K/uL (1.20-3.40); Lymphocytes % (auto) 28.5 %; Mean Corpuscular Hemoglobin 30.2 pg (25.0-34.0); Mean Corpuscular Hgb Conc 33.8 g/dL (32.0-36.0); Mean Corpuscular Volume 89.3 fL (80.0-100.0); Mean Platelet Volume 10.1 fL (9.4-12.4); Monocytes # (auto) 0.57 K/uL (0.11-0.59); Monocytes % (auto) 17.3 %; Neutrophils # (auto) 1.64 K/uL (1.40-6.50); Neutrophils % (auto) 49.7 %; Platelet Count 230 K/uL (130-400); RDW Coefficient of Variation 14.3 % (11.5-14.5); RDW Standard Deviation 46.5 fL (36.4-46.3); Red Blood Count 2.91 M/uL (4.20-5.40)
[2023-12-07 06:42] LABS: BUN Creatinine Ratio 15.3 (10-20); Calcium 8.5 mg/dl (8.6-10.3); Creatinine Clr Calc Pharmacy 79.3 ml/min; Est GFR (African American) 100.3 ml/min; Est GFR (Non-African American) 86.6 ml/min
[2023-12-07] MEDS: PANTOprazole 40 MG TAB PO SCH (08:37)
[2023-12-07] MEDS: OXYBUTYNIN CHLORIDE XL 5 MG TABCR PO SCH (08:37)
[2023-12-07] MEDS ORDERED: ATORVASTATIN 20 MG TAB PO SCH (09:00)
[2023-12-07] MEDS ORDERED: GABAPENTIN 300 MG CAP PO SCH (09:00)
--- NOTE | 2023-12-07 10:22 | Hospitalist Progress Note ---
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 Found to be significantly hyponatremic. Acute Hyponatremia sodium of 127 on admission Urine osm of 419, urine sodium of 97 and serum osm of 276 received IVF with NSS Has been trending up, avid overcorrection Nephrology consulted, appreciate recs Continue to monitor with AM labs Generalized weakness Dizziness Likely in setting of above head CT noting past stroke PT/OT Abdominal Pain CT abd/pelvis with no acute changes LFTs unremarkable Pain control prn bentyl ordered Continue to monitor Hypomagnesemia Replete as needed Chest pain Esophagitis Trop wnl x2 at 11.4, 13.2 EKG NSR Chest xray with no acute changes Chest CTA noting possible esophagitis and postcancer treatment changes chest pain likely secondary to uncontrolled GERD Continue pantoprazole 40mg BID Consider addition of famotidine for better control Continue to monitor on telemetry Complicated UTI no sepsis for now UA slightly suggestive of infection on admission Urine Cx recommended repeat cx, repeat ordered Continue with rocephin at this time Normocytic Anemia Aute on chronic anemia Hgb in 8.8 to 9.2 range hemoglobin drop from baseline secondary to intermittent LGIB AM anemia panel Continue to monitor Elevated D- dimer D dimer elevated CTA chest with no noted PE chronic diastolic heart failure (55 to 60%, TTE 2022) patient on the dry side hypertension BP on the lower side bronchial asthma pulmonary hypertension Stable JOO on CPAP Stable prediabetes hemoglobin A1c of 5.3 this year left breast cancer status post surgery endometrial cancer status post surgery Stable anxiety/mood disorder at baseline Diet: HH DVT prophylaxis: SCDs RE LGIB Dispo: PT/OT ordered for further recs Admission and Anticipated Discharge Date Admission Date: December 06, 2023 Subjective pt was seen sitting in chair at bedside working on a crossword puzzle. States she was feeling much better. Asking about advancing her diet. notes that she was away from home for some time and did not take her pills for a few days. Review of Systems Review of Systems: All systems reviewed & are unremarkable except as noted in Subjective Physical Exam Physical Exam: General: Alert, oriented. No acute distress Psych: Appropriate mood and affect Neuro: No gross deficits while sitting in chair HEENT: NC/AT CV: RRR Resp: Breath sounds clear bilaterally, no increased effort of breathing Abdomen: Soft, tender Extremities: edema in lower extremities bilaterally. Results & Data Results & Data Vital Signs (Past 12 Hours) Vital Signs Temp Pulse Pulse Pulse Resp BP Pulse Ox 12/07/23 07:26 63 12/07/23 07:12 36.7 C 67 18 135/75 94 12/07/23 03:40 66 12 93 12/07/23 01:41 74 20 97 12/06/23 23:30 36.6 C 66 18 132/78 97 12/06/23 23:27 67 12/06/23 22:26 67 16 123/67 98 O2 Del Method O2 Flow Rate 12/07/23 07:26 12/07/23 07:12 Room Air 12/07/23 03:40 2 12/07/23 01:41 2 12/06/23 23:30 Room Air 12/06/23 23:27 12/06/23 22:26 Room Air Diagnostic Findings Chest X-Ray 12/06/23 14:23 XR chest 1V portable HISTORY: Chest pain, nonspecific COMPARISON: Chest 04/08/2020. FINDINGS: No pneumothorax. No pleural effusions. The cardiac silhouette remains mildly enlarged. Coarse interstitial thickening remains stable and is likely chronic. There are calcifications within the aortic knob. No focal lung consolidations to suggest a pneumonia. No evidence for pulmonary edema. No acute fractures. A right jugular Port-A-Cath terminates in the SVC. This remains unchanged. IMPRESSION: No significant change compared to the prior study. No acute process. ACT 112: Negative or not required by law. Electronically signed by: Jv Busby M.D. 12/06/2023 3:16 PM Chest CTA 12/06/23 16:01 CT angio chest dissec wo/w con HISTORY: 78 years-old Female chest pain radiating into back acute chest pain COMPARISON: Chest CT 09/17/2012 TECHNIQUE: CTA of the chest was obtained with and without IV contrast. 3-D coronal and sagittal measurements were obtained and submitted for review. All measurements were obtained according to any as CT criteria. A dose lowering technique was used consistent with the principals of ALARA. FINDINGS: CTA: Moderate cardiomegaly. No pericardial effusion. No thoracic aortic aneurysm or dissection. Unremarkable pulmonary artery. Noncontrast study demonstrates no intramural hematoma. Right IJ [id number] catheter distal tip terminates in mid SVC. Mitral annular and coronary arterial calcifications. CT CHEST: Trace pleural effusions. No pneumothorax. Mild postradiation fibrosis of the left lung. Mild subsegmental bibasilar atelectasis. No evidence of pulmonary metaphysis. Central airways are patent. Nonspecific mid to distal esophageal wall thickening. No acute upper abdominal abnormality. Body wall edema. There is moderate left breast and chest wall subcutaneous edema. No drainable fluid collections. The deep tissue edema involves the pectoralis musculature and supraclavicular tissues on the left. Degenerative changes of the shoulders and spine. There are no destructive bone lesions identified. IMPRESSION: 1. No acute aortic pathology or pulmonary emboli identified. 2. Trace pleural effusions with mild bibasilar atelectasis. 3. Posttreatment related changes of the left chest wall with left breast skin thickening and left chest wall edema, also likely posttreatment related. Findings could be correlated with physical exam findings and patient history. 4. No lymphadenopathy or evidence of pulmonary metastasis. 5. Nonspecific mid to distal esophageal wall thickening may represent esophagitis. ACT 112: Negative or not required by law. The above report was generated using voice recognition software. It may contain grammatical, syntax or spelling errors. Electronically signed by: Yony Flowers M.D. 12/06/2023 6:[address] 12/06/23 16:01 CT head/brain wo con CLINICAL HISTORY: 78 years-old Female with weakness. Acute weakness TECHNIQUE: Multiple axial CT images of the head were obtained without contrast. A dose lowering technique was utilized adhering to the principles of ALA. COMPARISON: None FINDINGS: No acute intracranial hemorrhage, midline shift, intracranial mass, hydrocephalus, territorial ischemia or abnormal extra-axial collection. Involutional changes with chronic microvascular ischemic disease. Chronic appearing subcentimeter left cerebellar lacunar infarct. The calvarium is intact. Trace mastoid effusions. Paranasal sinuses are generally clear. Prior bilateral lens repair. IMPRESSION: No acute intracranial abnormality. ACT 112: Negative or not required by law. The above report was generated using voice recognition software. It may contain grammatical, syntax or spelling errors. Electronically signed by: Yony Flowers M.D. 12/06/2023 6:09 PM Abdomen/Pelvis CT 12/06/23 21:07 Exam(s): CT ABDOMEN + PELVIS Without Contrast EXAM: CT Abdomen and Pelvis Without Intravenous Contrast CLINICAL HISTORY: Reason for exam: abd pain. TECHNIQUE: Axial computed tomography images of the abdomen and pelvis without intravenous contrast. CTDI is 26 mGy and DLP is 1244 mGy-cm. Automated exposure control was utilized for the study. A dose lowering technique was utilized adhering to the principles of ALARA. COMPARISON: No relevant prior studies available. FINDINGS: Lung bases: Unremarkable. No mass. No consolidation. ABDOMEN: Liver: Unremarkable. Gallbladder and bile ducts: Cholecystectomy. No ductal dilation. Pancreas: Unremarkable. No ductal dilation. Spleen: Unremarkable. No splenomegaly. Adrenals: Unremarkable. No mass. Kidneys and ureters: Unremarkable. No obstructing stones. No hydronephrosis. Stomach and bowel: Diverticulosis, without acute diverticulitis. No small bowel obstruction. No free intraperitoneal air. PELVIS: Appendix: No findings to suggest acute appendicitis. Bladder: Unremarkable. No stones. Reproductive: Unremarkable as visualized. ABDOMEN and PELVIS: Intraperitoneal space: Unremarkable. No free air. No free fluid in the pelvis. Retroperitoneal space: Surgical clips in the retroperitoneum, correlate with surgical history. Bones/joints: Degenerative changes of the spine. LEFT hip arthroplasty. No acute fracture. No dislocation. Soft tissues: Unremarkable. Vasculature: Atherosclerotic changes of the aorta. No abdominal aortic aneurysm. Lymph nodes: Unremarkable. No enlarged lymph nodes. IMPRESSION: Diverticulosis, without acute diverticulitis. No small bowel obstruction. No free intraperitoneal air. Electronically signed by: Kenny Pablo MD 12/07/23 02:11 AM
--- OUTSIDE RECORDS SUMMARY | 2023-12-07 12:11 | External Medical Summary | Summary of Care ---
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 Rifampin Liver complications (Please comment) 08/20/2021 Elevated LFT's Tetracycline Base 06/29/2009 Nausea and not feeling well Cetirizine Hcl 03/23/2010 Problems breathing, overly dry documented as of this encounter (statuses as of 12/04/2023) Medications Medication Sig Dispensed Refills Start Date End Date Status PROCARE ADULT BRIEFS X-LARGE MISCIndications:Unsp ecified urinary incontinence use as needed for urinary incontinence 2 Box 11 06/10/2013 Active LOPERAMIDE HCL 2 MG PO CAPS 1 CAPSULE TWICE DAILY NEEDED 07/19/2013 Active Fexofenadine HCl 180 MG Oral Tablet Take 1 Tablet by mouth daily as needed for Allergies. Active Biotin 300 MCG TABS Take 300 mcg by mouth daily. Active Cholecalciferol (VITAMIN D3) 1000 UNITS CAPS Take 1 Capsule by mouth in the morning. Active Incontinence Supply Disposable (BAN SKIN-CARING WASHCLOTHS) MISCIndications:Inco ntinence Use as needed for incontinence. Dispense 2 tubs monthly DX R32 2 Each 5 05/16/2017 Active oxygen GAS Use 2 L as directed every night at bedtime. With CPAP 05/29/2014 Active Oxybutynin Chloride ER 15 MG Oral Tablet Extended Release 24 Hour (DITROPAN XL) Take 1 Tablet by mouth in the morning. 03/25/2020 Active Acetaminophen 500 MG Oral Tablet (TYLENOL) Take 2 Tablets by mouth every 8 hours as needed. 100 Tab 04/15/2020 Active Saline Nasal Iva 0.65 % Nasal Solution ([place] Nasal Iva) Two sprays in each nostril as needed for nasal dryness or congestion 50 mL 2 05/06/2021 Active Hydrocortisone (Perianal) 2.5 % External Cream Administer into the rectum 2 times a day. For up to 1 week 30 g 09/06/2021 Active Probiotic Acidophilus BioBeads Oral Capsule Take 1 Capsule by mouth in the morning and 1 Capsule at noon and 1 Capsule in the evening. Take with meals. Active Diclofenac Sodium 1 % External Gel (Voltaren)Indication s:Primary osteoarthritis of left knee Apply topically to affected area 4 times a day. Apply to knee. 150 g 07/29/2022 Active Premarin 0.625 MG/GM Vaginal Cream (Estrogens Conjugated) Apply topically to affected area daily. As directed. 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 90 Tablet 2 09/18/2023 Active Fluticasone Propionate 50 MCG/ACT Nasal Suspension (Flonase)Indications :Seasonal allergic rhinitis, unspecified trigger Administer 2 Sprays into each nostril in the morning. 16 g 3 2023 Active Pantoprazole Sodium 40 MG Oral Tablet Delayed Release (Protonix) TAKE 1 TABLET BY MOUTH EVERY MORNING, DO NOT CRUSH 100 Tablet 3 2023 Active LORazepam 0.5 MG Oral Tablet (Ativan)Indications: PETER (generalized anxiety disorder) Take 1 Tablet by mouth daily as needed for Anxiety. 10 Tablet 10/11/2023 Active CPAP every night at bedtime. Active Gabapentin 300 MG Oral Capsule (Neurontin)Indicatio ns:Chronic bilateral low back pain with bilateral sciatica,MGUS (monoclonal gammopathy of unknown significance),Periph eral polyneuropathy Take 1 Capsule by mouth in the morning and 1 Capsule at noon and 1 Capsule before bedtime. 270 Capsule 3 11/20/2023 Active Ondansetron HCl 4 MG Oral Tablet (Zofran) Take 1 Tablet by mouth every 12 hours as needed for Nausea. 30 Tablet 11/20/2023 Active documented as of this encounter (statuses as of 12/04/2023) Active Problems Problem Noted Date Diagnosed Date Chemotherapy-induced neuropathy 06/21/2023 Mild intermittent asthma without complication Mood disorder in partial remission 06/21/2023 Urge incontinence 05/02/2023 Uncomplicated asthma 11/15/2022 PETER (generalized anxiety disorder) 07/14/2022 Peripheral neuropathy 07/14/2022 History of bipolar disorder 07/14/2022 History of breast cancer 11/04/2020 Isolated proteinuria 09/16/2020 Chronic diastolic (congestive) heart failure Prediabetes 03/06/2020 Gastroesophageal reflux disease without esophagi tis 09/11/2019 Major depressive disorder, recurrent, unspecifie d 09/11/2019 MGUS (monoclonal gammopathy of unknown significa nce) 04/15/2019 Mixed hyperlipidemia 11/06/2018 Nonrheumatic aortic valve stenosis 11/05/2018 History of hypertension 07/12/2017 History of renal failure 07/12/2017 Overview: 2/2 sepsis History of endometrial cancer 04/07/2017 Chronic bilateral low back pain with bilateral s ciatica 12/16/2015 Diastolic dysfunction 06/18/2015 Obstructive sleep apnea 06/18/2012 Overview: 11/02/12 -- CPAP -06/15/12 -- start oxygen 2 LPM 06/01/12 PSG -- AHI 10.7, <89% 128 mins [facility] Returned machine Jun 2013 Nocturnal hypoxemia 06/18/2012 Overview: 2 LPM [facility] 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 documented as of this encounter (statuses as of 12/04/2023) Resolved Problems Problem Noted Date Diagnosed Date Resolved Date Food insecurity 11/07/2022 05/11/2023 Overview: Per [facility] Protocol Bipolar disorder 07/14/2022 07/14/2022 Mood disorder in partial remission 12/21/2021 12/21/2021 Dehydration 11/10/2021 06/21/2023 Food insecurity 01/04/2021 09/09/2021 Overview: Per [facility] Protocol Pancytopenia 09/16/2020 07/14/2022 Recurrent major depressive d isorder, in partial remission 09/16/2020 08/09/2021 Class 2 severe obesity due t o excess calories with serious comorbidity and body mass index (BMI) of 37.0 to 37.9 in adult 06/25/2020 3 Breast carcinoma, female, left 04/01/2020 06/21/2023 Depressive disorder 09/03/2019 09/11/19 20 Body mass index (BMI) of 40. 0 to 44.9 in adult 10/08/2018 10/08/2020 Overview: Per Obesity protocol #1 Prediabetes 06/11/2018 03/12/2020 Overview: Per Prediabetes protocol #1 Morbid (severe) obesity due to excess calories 2017 09/11/2019 MRSA (methicillin resistant staph aureus) culture positive 12/05/2016 11/01/2018 Mild obstructive sleep apnea -hypopnea syndrome 02/16/2015 01/04/2017 Advance directive discussed with patient 03/11/2014 04/07/2017 Overview: No, Advance Directive brochure given to patient at prior appointment. MEDICATION USE AGREEMENT 11/12/201302/2019 Overview: Patient signed 10/15/13 PCP: Jose M Seth MD Pharmacy: [facility] 08/09/2013 12/16/2015 Dementia 07/19/2013 2017 Encounter for antineoplastic chemotherapy 11/01/2012 01/04/2017 Endometrial cancer 2012 7 Blood glucose elevated 03/06/201201/04 Obesity, Class II, BMI 35-39 .9, isolated (see actual BMI) 11/09/2009 09/05/2018 Overview: Per Obesity Protocol, #19 Abnormal blood chemistry 07/22/2009 Shoulder joint pain 07/22/2009 07/12/19 18 Cervicalgia 07/22/2009 09/05/2018 Bipolar I disorder, most rec ent episode depressed, moderate 06/29/2009 09/03/2019 HTN, goal below 140/90 06/29/200907/12 Acute URI 06/29/2009 11/23/2011 Joint pain, knee 06/29/2009 2017 Anxiety states 01/09/2020 Overview: ICD-10 update of inactive term OCD (obsessive compulsive disorder) 09/03/2019 History of elevated glucose 03/11/2019 documented as of this encounter (statuses as of 12/04/2023) Immunizations Name Administration Dates Next Due COVID-19 mRNA, LNP-s, No Pre serve, 2-Dose Series (Pfizer) 02/18/2021,08/10/2020,07/06/2020 COVID-19, MRNA-LNP, 23-24, P F, 30 MCG/0.3 mL, 12 YRS AND ABOVE, IM (PFIZER-Comirnaty) 04/11/2023 Covid-19, Mrna, Lnp-s, Pf, B ivalent, 30 Mcg, IM, 12 yrs and above (Pfizer) 03/22/2022 Pneumococcal Conjugate Vacc, 13 Valent (Prevnar) 06/30/2014 Pneumococcal Polysaccharide PPV23 (Pneumovax) 08/12/2010 RSV Vac., Bivalent, Perfusio n F, Pf,0.5 Ml (Abrysvo) 04/11/2023 Season Influenza, Quad, PF, Adjuvanted, 65+ Yrs, IM (FLUAD) 02/12/2020 Seasonal Influenza, PF, 6 M & above, IM , (FluLaval or Fluzone) 02/28/2018,04/07/2017 Seasonal Influenza, Quadriva lent Hd (Fluzone Hd) 02/07/2023,02/08/2022,02/08/2021 Seasonal Influenza, Quadriva lent, No Preserve, IM 02/10/2016,03/06/2015 Seasonal Influenza, Split, I IV3, With Preserve, Inj 02/19/2014,02/13/2013,02/02/2012,04/14,05/03/2010 Seasonal Influenza, Trivalen t, Adjuvanted, 65+ yrs 03/11/2019 TDAP (age 10 and older)(Boostrix) 03/07/2022 TDAP, Age 7 and older, IM (Adacel) 08/12/2010 Zoster Vaccine Recombinant (Shingrix) 06/18/2019 ,02/13/2018 documented as of this encounter Social History Tobacco Use Types Packs/Day Years Used Date Smoking Tobacco: Never Smokeless Tobacco: Never Comments:No passive smoke ex posures Alcohol Use Standard Drinks/Week Comments No 0 (1 standard drink = 0.6 oz pur e alcohol) PHQ-2 Answer Date Recorded PHQ Adult Total Score 0 11/13/2023 Hunger Vital Sign Answer Date Recorded Within the past 12 months, y ou worried that your food would run out before you got the money to buy more. Never true 10/09/19 24 Within the past 12 months, t he food you bought just didn't last and you didn't have money to get more. Never true 10/09/2023 Childcare Answer Date Recorded Do you feel overwhelmed with taking care of a child, family member or friend? No 10/09/2023 Does your family need help f inding childcare? (Household - for ages 0-17 years) Not on file 10/09/2023 Clothing Answer Date Recorded Have you been unable to get clothing when it was really needed? No 10/09/2023 Is your family able to get c lothes or diapers when needed? (Household - for ages 0-17 years) Not on file 10/09/2023 Personal Safety Answer Date Recorded Do you feel unsafe or have concerns for your saf ety? No 10/09/2023 Do you have concerns for you r family's safety? (Household - for ages 0-17 years) Not on file 10/09/2023 Utilities Answer Date Recorded Do you have trouble paying y our heating, water, or electric bill? No 10/09/2023 Is your family able to pay t he heat, water, or electric bill? (Household - for ages 0-17 years) Not on file 10/09/2023 Does your family have access to good internet? (Household - for ages 0-17 years) Not on file 10/09/2023 Employment Status Answer Date Recorded Are you unemployed or without regular income? No 10/09/2023 Does the household have a re gular source of income? (Household - for ages 0-17 years) Not on file 10/09/2023 Social Connections Answer Date Recorded How often do you feel lonely or isolated from th ose around you? Rarely 10/09/2023 Financial Resource Strain Answer Date R ecorded Do you have any trouble payi ng for your medications, or do you think you might in the future? No 10/09/2023 Does your family have troubl e paying for medicine? (Household - for ages 0-17 years) Not on file 10/09/2023 Transportation Needs Answer Date Record ed READ ONLY Do you have troubl e getting a ride to medical visits or work? Never True 10/09/2023 Does your family have a hard time getting a ride to doctors visits? (Household - for ages 0-17 years) Not on file 10/09/2023 Has lack of transportation k ept you from medical appointments, meetings, work, or from getting things needed for daily living? Check all that apply. (Adult - for ages 18 years and over) Not on file 10/09/2023 Do you (or your family) have trouble finding or paying for a ride (transportation)? (Household - for ages 0-17 years) Not on file 10/09/2023 Housing Stability Answer Date Recorded Do you currently live in a s helter or have no steady place to sleep at night? No 10/09/2023 READ ONLY Do you think you a re at risk of becoming homeless? No 10/09/2023 Does your family worry about paying for your home or becoming homeless? (Household - for ages 0-17 years) Not on file 0 10/09/2023 Are you homeless or worried that you might be in the future? (Adult - for ages 18 years and over) Not on file Are you (or your family) jo-ann eless or worried that you might be in the future? (Household - for ages 0-17 years) Not on file Food Insecurity Answer Date Recorded Do you need food for this week? No 10/09/2023 Are you able to get enough f ood for your family? (Household - for ages 0-17 years) Not on file 10/09/2023 Does your family need food t his week? (Household - for ages 0-17 years) Not on file 10/09/2023 Do you always have enough fo od for your family? (Household - for ages 0-17 years) Not on file 10/09/2023 Sex and Gender Information Value Date Recorded Sex Assigned at Female 11/05/2018 10:53 AM EDT Gender Identity Female 11/05/2018 10:53 AM EDT Sexual Orientation Straight 11/05/2018 10 :53 AM EDT Job Start Date Occupation Industry Not on file Not on file Not on file documented as of this encounter Last Filed Vital Signs Vital Sign Reading Time Taken Comments Blood Pressure 104/60 12/04/2023 2:52 PM EDT Pulse 79 12/04/2023 2:52 PM EDT Temperature 37.1 C (98.8 F) 12/04/2023 2:52 PM ED T Respiratory Rate 16 12/04/2023 2:52 PM EDT Oxygen Saturation 95% 12/04/2023 2:52 PM EDT Inhaled Oxygen Concentration - - Weight 84.3 kg (185 lb 12.8 oz) 12/04/2023 2:52 PM EDT Height - - Body Mass Index 35.11 10/09/2023 1:18 PM EDT documented in this encounter Progress Notes * Patience Berrios PA-C - 12/04/2023 2:59 PM EDT Images from the original note were not included. History of Present Illness Kathy Mccoy is a 78 year old female that presents for Re-Check (Has some specific concerns) Pt here today with some concerns. Would like to be checked for a UTI. Notes that she occasionally has blood when she wipes. This tends to happen with Bms. Blood mainly only on paper. Occ small amountof blood in water. Is pretty certain she has a hemorrhoid. Typically moves bowels twice daily. Is accompanied today by her daughter, Sheila, and a friend, Josseline. They are noting more confusion forthe pt recently. Last week the pt missed some doses of her Depakote and ended up having withdrawal.Now the daughter is administering the pt's meds. Pt does follow with Psych. Denies fever/chills, dysuria, chest pain, SOB. Pt would also like to pursue a neuro referral for her memory. Wants to have dementia screening. [facility] Aricept in the past for memory changes while she was on chemo but this was stopped upon completion of her treatment. Review of Systems: See HPI for pertinent positives. All other review of systems is negative. Physical Exam Vitals: 12/04/23 1452 Temp: 37.1 C (98.8 F) Pulse: 79 Resp: 16 SpO2: 95% BP: 104/60 Physical Exam Constitutional: General: She is not in acute distress. Appearance: She is not diaphoretic. HENT: Right Ear: Tympanic membrane, ear canal and external ear normal. Left Ear: Tympanic membrane, ear canal and external ear normal. Mouth/Throat: Mouth: Mucous membranes are moist. Pharynx: Oropharynx is clear. Cardiovascular: Rate and Rhythm: Normal rate and regular rhythm. Heart sounds: Murmur heard. Pulmonary: Effort: Pulmonary effort is normal. Breath sounds: Normal breath sounds. Abdominal: General: Bowel sounds are normal. Palpations: Abdomen is soft. Genitourinary: Rectum: Guaiac result negative. External hemorrhoid present. Musculoskeletal: Cervical back: Normal range of motion and neck supple. Skin: General: Skin is warm and dry. Neurological: General: No focal deficit present. Mental Status: She is alert. Mental status is at baseline. I have reviewed the following results: CMP and CBC Assessment and Plan Confusion UA with trace blood and leukocytes. Urine also very concentrated. Discussion on hydration and waterintake. - URINALYSIS, POINT OF CARE (ENTER/EDIT) - CULTURE, URINE, QUANTITATIVE Abnormal urinalysis Culture sent. - CULTURE, URINE, QUANTITATIVE Rectal bleeding Likely hemorrhoidal. Discussed keeping Bms soft, drinking enough fluids to reduce flare ups. Also discussed using HCT 2.5% cream when she does have a flare. Hemorrhoids, external without complications See above. 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 MGUS (monoclonal gammopathy of unknown significance) Follows with heme/onc--noted anemia worsening on today's labs. Has appt with them at the end of this week. Needs to keep this. Wrap-Up Will have pt return to complete MMSE for cognitive screening. Will place referral to Neuro/specialists if needed based on results. Discussed we can also restart the Aricept if needed as well. Will call with urine culture results when available. Follow Up: Return in about 1 week (around 12/11/2023) for Return with AP. | For: Return with AP | Check-out note: F/up with me for 40 min for MMSE. Time: I spent a total of Greater than 55 mins (exact time 65 mins) on the date of service in preparation,delivery, and documentation of the care provided to Kathy Mccoy excluding any time spent in the performance of separately billed services. documented in this encounter Nursing Notes * Jacquie Montanez LPN - 12/04/2023 2:51 PM EDT Re-Check (Has some specific concerns) documented in this encounter Miscellaneous Notes * Result Encounter Note - Patience Berrios PA-C - 12/04/2023 4:01 PM EDT Noted--culture sent. documented in this encounter Plan of Treatment Upcoming Encounters Date Type Department Care Team (Late st Contact Info) Description 12/08/2023 2:30 PM EDT Office Visit Hematology/Oncology [facility] [address] [facility] [place] [phone] Marietta Salazar CRNP [address] [facility] [place] [address] 12/11/2023 10:45 AM EDT Office Visit Urology, [facility] [address] [facility] [place] [address] Mendel Macedo MD [address] [facility] [place] [address] 12/12/2023 11:00 AM EDT Office Visit General Internal Medicine [facility] 200 [facility] [place] [address] Patience Berrios PA-C [address] [facility] [place] [address] 12/13/2023 1:30 PM EDT Cardiac Studies Card[facility], [facility] [address] 12/21/2023 2:20 PM EDT Office Visit General Internal Medicine [facility] [place] [address] [facility] [place] [address] Jose M Seth MD [address] [facility] [place] [address] 12/25/2023 1:30 PM EDT Office Visit Psychiatry, [facility] [address] [facility] [place] [address] Paty Haynes CRNP [address] [facility] [place] [address] 01/25/2024 11:00 AM EDT Telemedicine Genetics [facility], [address] [address] Tonya Jovel, [place] [address] [facility] [place] [address] 06/04/2024 3:40 PM EST Telemedicine Sleep Disorders [facility] [address] [place] [phone] Charmaine Mckeon, [address] [place] [address] 10/14/2024 2:00 PM EDT Nurse Only Ancillary [facility] [place] [address] [facility] [place] [address] Shilpa, Nurse Annual Wellness [address] [facility] [place] [address] Scheduled Orders Name Type Priority Associated Diagnoses Orde r Schedule CULTURE, URINE, QUANTITATIVE Lab Routine Confusion Abnormal urinalysis Ordered: 12/04/2023 Health Maintenance Due Date Last Done Comments COVID-19 Vaccine ( season) 2023 04/11/2023, 03/22/2022, 02/18/2021, Additional history exists HbA1c 07/13/2023 07/13/2022, 08/28, 02/15/2021, Additional history exists Influenza Vaccine (FLU shot) (#1) 2024 02/07/2023, 02/08/2022, 02/08/2021, Additional history exists DXA Scan 09/20/2024 09/20/2021, 08/28, 10/23/2013, Additional history exists Depression Monitoring 11/12/2024 11/13/2023, 024 DTaP,Tdap,and Td Vaccines (3 - Td or Tdap) 03/07/2032 03/07/2022, 08/12/2010 Pneumococcal Vaccine: 65+ Years Completed 06/30/2014, 08/12/2010 RETIRED - COLONOSCOPY-EVERY 5 YRS AGES 18-100 Discontinued 04/13/2016, 09/08/2010 Zoster Vaccines Completed 06/18/2019, 02/13/2018 Diabetic Foot Exam Discontinued 04/15/2020 Albumin/Creatinine Ratio Discontinued 023, 07/17/2020, 03/07/2014 Diabetic Eye Exam Discontinued 05/01/2023, , 04/28/2022, Additional history exists HPV (Gardasil) Vaccine Aged Out No lo nger eligible based on patient's age to complete this topic Hepatitis B Vaccine Aged Out No longe r eligible based on patient's age to complete this topic MENINGOCOCCAL (MENACTRA/MENVEO) Aged Out No longer eligible based on patient's age to complete this topic documented as of this encounter Medical Devices Not on filedocumented as of this encounter Procedures Procedure Name Priority Date/Time Associated Diagnosis Comments URINALYSIS, POINT OF CARE (ENTER/EDIT) Routine 12/04/2023 Confusion documented in this encounter Results * URINALYSIS, POINT OF CARE (ENTER/EDIT) (12/04/2023) Color, Urine [place] Yellow or Light Yellow Clarity, Urine Clear Clear Glucose, Urine Negative Negative mg/dL Bilirubin, Urine Small Negative Ketone, Urine Trace Negative mg/dL Specific [place], Urine 1.025 1.003 - 1.030 Blood, Urine Trace-intact Negative pH, Urine 5.5 5.0 - 7.5 units Protein, Urine 30 Negative mg/dL Urobilinogen, Urine 1.0 0.2 - 1.0 mg/dL Nitrite, Urine Negative Negative Esterase, Urine Trace Negative Urine 12/04/2023 Patience Berrios PA-C LAB POINT OF CARE TEST ENTER/EDIT ORDERABLES documented in this encounter Visit Diagnoses Diagnosis Confusion- Primary Unspecified psychosis Abnormal urinalysis Other nonspecific finding on examination of urine Rectal bleeding Hemorrhage of rectum and anus Hemorrhoids, external without complications External hemorrhoids without mention of complication 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 Care Teams Automation Qa Lead Relationship Specialty Start Date End Date Jose M Seth MD [address] [facility] [place] [address] PCP - General Internal Medicine 11/21/11 documented as of this encounter
--- OUTSIDE RECORDS SUMMARY | 2023-12-07 12:11 | External Medical Summary | Summary of Care ---
Author Name Unknown Organization [facility] Address [address] [place] [address] Phone [phone] Care Team Providers Care Supervisor Production Managing Name Role Phone Jose M Seth MD Primary Care Provider + Reason for Visit * Reason Comments Re-Check Has some specific co ncerns Encounter Details Date Type Department Care Team (Late st Contact Info) Description 12/04/2023 2:40 PM EDT Office Visit General Internal Medicine [facility] [address] [place] [address] Patience Berrios PA-C 200 [place] [address] Confusion*; Abnormal urinalysis; Rectal bleeding; Hemorrhoids, external [...] needed. 100 Tab 04/15/2020 Active Saline Nasal [place] 0.65 % Nasal Solution ([place]alle Nasal [place]) Two sprays in each nostril as needed [...] PSG -- AHI 10.7, <89% 128 mins [facility] Returned machine Jun 2013 Nocturnal hypoxemia 06/18/2012 Overview: 2 LPM [facility] Chronic knee pain History of wound infection [...] Jose M Seth MD Pharmacy: Maricruz Foster [facility] 08/09/2013 12/16/2015 Dementia 07/19/2013 2017 Encounter [...] 12/08/2023 2:30 PM EDT Office Visit Hematology/Oncology [facility] 200 [facility] [place] [phone] Marietta Salazar CRNP 400 [facility] [place] [address] 12/11/2023 10:45 AM EDT Office Visit Urology, [facility] 132 [facility] [place] [address] Mendel Macedo MD 27 [facility] [place] [address] 12/12/2023 11:00 AM EDT Office Visit General Internal Medicine [facility] 200 [facility] [place] [address] Patience Berrios PA-C 200 [facility] [place] [address] 12/13/2023 1:30 PM EDT Cardiac Studies Cardiac Studies, [facility] 132 [facility] [address] 12/21/2023 2:20 PM EDT Office Visit General Internal Medicine [facility] [place] 200 [facility] [place] [address] Jose M Seth MD 200 [facility] [place] [address] 12/25/2023 1:30 PM EDT Office Visit Psychiatry, [facility] 200 [facility] [place] [address] Paty Haynes CRNP 200 [facility] [place] [address] 01/25/2024 11:00 AM EDT Telemedicine Genetics [facility], [address] [address] Tonya Jovel, [place] 132 [place] [address] 06/04/2024 3:40 PM EST Telemedicine Sleep Disorders Ctr [facility] 132 [place] [address] Charmaine Mckeon, 132 [place] [address] 10/14/2024 2:00 PM EDT Nurse Only Ancillary [facility] [place] 200 [facility] [place] [address] Shilpa, Nurse Annual Wellness [address] [facility] [place] [address] Scheduled Orders Name Type Priority Associated Diagnoses [...] POINT OF CARE (ENTER/EDIT) (12/04/2023) Color, Urine [place] Yellow or Light Yellow Clarity, Urine Clear Clear Glucose, Urine Negative Negative mg/dL Bilirubin, Urine Small Negative Ketone, Urine Trace Negative mg/dL Specific [place], Urine 1.025 1.003 - 1.030 Blood, Urine [...] and were consensually agreed upon. Care Teams Supervisor Production Managing Relationship Specialty Start Date End Date Jose M Seth MD 200 [facility] [place] [address] PCP - General Internal Medicine 11/21/11 documented as of this encounter
--- OUTSIDE RECORDS SUMMARY | 2023-12-07 12:11 | External Medical Summary | Summary of Care ---
Author Name Unknown Organization [facility] Address [address] [place] [address] Phone [phone] Care Team Providers Care Movement Therapist Name Role Phone Jose M Seth MD Primary Care Provider + Reason for Visit * Reason Comments Re-Check Has some specific co ncerns Encounter Details Date Type Department Care Team (Late st Contact Info) Description 12/04/2023 2:40 PM EDT Office Visit General Internal Medicine [facility] [address] [place] [address] Patience Berrios PA-C 200 [place] [address] Confusion*; Abnormal urinalysis; Rectal bleeding; Hemorrhoids, external [...] needed. 100 Tab 04/15/2020 Active Saline Nasal [place] 0.65 % Nasal Solution ([place]illips Nasal [place]) Two sprays in each nostril as needed [...] PSG -- AHI 10.7, <89% 128 mins [facility] Returned machine Jun 2013 Nocturnal hypoxemia 06/18/2012 Overview: 2 LPM [facility] Chronic knee pain History of wound infection [...] Jose M Seth MD Pharmacy: Maricruz Foster [facility] 08/09/2013 12/16/2015 Dementia 07/19/2013 2017 Encounter for [...] 12/08/2023 2:30 PM EDT Office Visit Hematology/Oncology [facility] 200 [facility] [place] [phone] Marietta Salazar CRNP 400 [facility] [place] [address] 12/11/2023 10:45 AM EDT Office Visit Urology, [facility] 132 [facility] [place] [address] Mendel Macedo MD 27 [facility] [place] [address] 12/12/2023 11:00 AM EDT Office Visit General Internal Medicine [facility] 200 [facility] [place] [address] Patience Berrios PA-C 200 [facility] [place] [address] 12/13/2023 1:30 PM EDT Cardiac Studies Cardiac Studies, [facility] 132 [facility] [address] 12/21/2023 2:20 PM EDT Office Visit General Internal Medicine [facility] [place] 200 [facility] [address] Jose M Seth MD 200 [facility] [place] [address] 12/25/2023 1:30 PM EDT Office Visit Psychiatry, [facility] 200 [facility] [place] [address] Paty Haynes CRNP 200 [facility] [place] [address] 01/25/2024 11:00 AM EDT Telemedicine Genetics [facility], [address] [address] Tonya Jovel, [place] 132 [facility] [place] [address] 06/04/2024 3:40 PM EST Telemedicine Sleep Disorders Ctr [facility] 132 [place] [address] Charmaine Mckeon, 132 [facility] [place] [address] 10/14/2024 2:00 PM EDT Nurse Only Ancillary [facility] [place] 200 [facility] [address] Shilpa, Nurse Annual Wellness [address] [facility] [place] [address] Scheduled Orders Name Type Priority Associated Diagnoses [...] POINT OF CARE (ENTER/EDIT) (12/04/2023) Color, Urine [place] Yellow or Light Yellow Clarity, Urine Clear Clear Glucose, Urine Negative Negative mg/dL Bilirubin, Urine Small Negative Ketone, Urine Trace Negative mg/dL Specific [place], Urine 1.025 1.003 - 1.030 Blood, Urine [...] and were consensually agreed upon. Care Teams Movement Therapist Relationship Specialty Start Date End Date Jose M Seth MD 200 [facility] [address] PCP - General Internal Medicine 11/21/11 documented as of this encounter
--- OUTSIDE RECORDS SUMMARY | 2023-12-07 12:11 | External Medical Summary | Summary of Care ---
Author Name Unknown Organization [facility] Address [address] [place] [address] Phone [phone] Care Team Providers Care Video Recorder Mechanic Name Role Phone Jose M Seth MD Primary Care Provider + Reason for Visit * Reason Onset Date Comments Test Results 09/04/2023 Encounter Details Date Type Department Care Team (Late st Contact Info) Description 09/04/2023 Telephone General Internal Medicine [facility] 200 [facility] [place] [phone] Jose M Seth MD 200 [place] [address] Test Results Allergies Active Allergy Reactions Criticality Noted Date [...] needed. 100 Tab 04/15/2020 Active Saline Nasal [place] 0.65 % Nasal Solution ([place] Nasal [place]) Two sprays in each nostril as needed [...] THE MORNING 90 Tablet 3 06/01/2023 Active documented as of this encounter (statuses [...] PSG -- AHI 10.7, <89% 128 mins [facility] Returned machine Jun 2013 Nocturnal hypoxemia 06/18/2012 Overview: 2 LPM [facility] Chronic knee pain History of wound [...] left 04/01/2020 06/21/2023 Depressive disorder 09/03/2019 09/11/19 Body mass index (BMI) of 40. 0 [...] Jose M Seth MD Pharmacy: Maricruz Foster [facility] 08/09/2013 12/16/2015 Dementia 07/19/2013 2017 Encounter [...] mRNA, LNP-s, No Pre serve, 2-Dose Series ([employer]) 02/18/2021,08/10/2020,07/06/2020 COVID-19, MRNA-LNP, 23-24, P F, 30 MCG/0.3 mL, 12 YRS AND ABOVE, IM ([employer]) 04/11/2023 Covid-19, Mrna, Lnp-s, Pf, B ivalent, [...] on file documented as of this encounter Miscellaneous Notes * Telephone Encounter - Jose M Seth MD - 09/04/2023 4:13 PM EDT Noted, will await culture to see if/what abx needed * Telephone Encounter - Sherrie Deng - 09/04/2023 10:35 AM EDT Patient notified of message below. Verbalized understanding. She has been having some urinary burning for the past week. She has an appt at [facility] on Monday and can drop a urine sample then for the culture. * Telephone Encounter - Sherrie Deng - 09/04/2023 10:29 AM EDT ----- Message from Jose M Seth MD sent at 09/03/2023 12:09 PM EDT ----- Possible uti, is she having any urinary burning, fever, flank pain? If so, check urine culture can trial abx, let me know, thanks recheck u/a 2-3 weeks to ensure resolution documented in this encounter Plan of Treatment Upcoming Encounters Date Type Department Care Team (Late st Contact Info) Description 12/08/2023 2:30 PM EDT Office Visit Hematology/Oncology [facility] 200 [facility] [place] [phone] Marietta Salazar CRNP 400 [facility] [place] [address] 12/11/2023 10:45 AM EDT Office Visit Urology, [facility] 132 [facility] [place] [address] Mendel Macedo MD [address] [place] [address] 12/12/2023 11:00 AM EDT Office Visit General Internal Medicine [facility] 200 [facility] [address] [place] [address] Patience Berrios PA-C 200 [facility] [place] [address] 12/13/2023 1:30 PM EDT Cardiac Studies Cardiac Studies, [facility] 132 [facility] [place] [address] 12/21/2023 2:20 PM EDT Office Visit General Internal Medicine [facility] 200 [facility] [place] [address] Jose M Seth MD 200 [facility] [place] [address] 12/25/2023 1:30 PM EDT Office Visit Psychiatry, [facility] 200 [facility] [place] [address] Paty Haynes CRNP 200 [facility] [place] [address] 01/25/2024 11:00 AM EDT [facility], [address] [address] Tonya Jovel, [place] 132 [facility] [place] [address] 06/04/2024 3:40 PM EST Telemedicine Sleep Disorders Ctr Sinan Alvarez [place] [address] [place] [address] Charmaine Mckeon, [address] [place] [address] 10/14/2024 2:00 PM EDT Nurse Only Ancillary [facility] [place] [address] [place] [address] Shilpa, Nurse Annual Wellness [facility] [address] [place] [address] Health Maintenance Due Date Last Done Comments COVID-19 Vaccine (2022- season) 2023 04/11/2023, 03/22/2022, 02/18/2021, Additional history exists Influenza Vaccine (FLU shot) (#1) 2024 02/07/2023, 02/08/2022, 02/08/2021, Additional history exists DXA Scan 09/20/2024 09/20/2021, 08/28, 10/23/2013, Additional history exists Depression Monitoring 11/12/2024 11/13/2023, 024 HbA1c 12/03/2024 12/04/2023, 06/29, 09/17/2021, Additional history exists DTaP,Tdap,and Td Vaccines (3 - Td or [...] Not on filedocumented as of this encounter Results * CULTURE, URINE, QUANTITATIVE (09/26/2023 3:18 PM EDT) Culture Growth No significant growth 09/27/2023 4:23 PM EDT LABORATORY GM Urine Urine specimen obtained by clean catch procedure / Unknown Non-blood Collection / Unknown 09/26/2023 3:18 PM EDT 09/26/2023 3:18 PM EDT Jose M Seth MD LAB MICRO - GENE RAL ORDERABLES Performing Organization Address City/State/[facility] Co de Phone Number LABORATORY [facility] [place] [place] [address] [place] [address] documented in this encounter Visit Diagnoses Diagnosis Dysuria- Primary documented in this encounter Advance Directives * Full Code (Latest Code Status on File) Date Activated Date Inactivated Comments 09/24/2012 8:15 PM 10/02/2012 7:35 PM This order re flects the patients wishes and were consensually agreed upon. Care Teams Video Recorder Mechanic Relationship Specialty Start Date End Date Jose M Seth MD 200 [facility] [place] [address] PCP - General Internal Medicine 11/21/11 documented as of this encounter
--- OUTSIDE RECORDS SUMMARY | 2023-12-07 12:12 | External Medical Summary | Summary of Care ---
Author Name Unknown Organization [facility] Address [address] [place] [address] Phone [phone] Care Team Providers Care Ase Certified Technician Name Role Phone Jose M Seth MD Primary Care Provider + Reason for Visit * Reason Comments Outpatient Testing Encounter Details Date Type Department Care Team (Late st Contact Info) Description 12/04/2023 10:10 AM EDT Laboratory Laboratory [facility] [place] [address] [place] [address] [facility] Lab [facility] 200 [facility] [place] [address] History of breast cancer; Anemia, unspecified type; MGUS (monoclonal gammopathy of unknown significance); Chemotherapy-induced neuropathy (HCC); PETER (generalized anxiety disorder); 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 100 Tab 04/15/2020 Active Saline Nasal [place] 0.65 % Nasal Solution ([place] Nasal [place]) Two sprays in each nostril as needed [...] PSG -- AHI 10.7, <89% 128 mins [facility] Returned machine Jun 2013 Nocturnal hypoxemia 06/18/2012 Overview: 2 LPM [facility] Chronic knee pain History of [...] Jose M Seth MD Pharmacy: Maricruz Foster [facility] 08/09/2013 12/16/2015 Dementia 07/19/2013 2017 [...] mRNA, LNP-s, No Pre serve, 2-Dose Series ([employer]) 02/18/2021,08/10/2020,07/06/2020 COVID-19, MRNA-LNP, 23-24, P F, 30 [...] on file documented as of this encounter Plan of Treatment Upcoming Encounters Date Type Department Care Team (Late st Contact Info) Description 12/04/2023 2:40 PM EDT Office Visit General Internal Medicine [facility] [place] [address] [place] [address] Patience Berrios PA-C 200 [address] [place] [place] [address] 12/08/2023 2:30 PM EDT Office Visit Hematology/Oncology [facility] 200 [facility] [place] [place] [address] Marietta Salazar CRNP 400 [employer] [place] [address] 12/11/2023 10:45 AM EDT Office Visit Urology, [facility] 132 [place] [address] Mendel Macedo MD [address] [facility] [place] [address] 12/13/2023 1:30 PM EDT Cardiac Studies Cardiac Studies, [facility] 132 [place] [address] 12/21/2023 2:20 PM EDT Office Visit General Internal Medicine [facility] 200 [address] [place] [address] Jose M Seth MD 200 [facility] [place] [address] 12/25/2023 1:30 PM EDT Office Visit Psychiatry, [facility] [address] [place], [place] [address] Paty Haynes CRNP 200 [facility] [place] [address] 01/25/2024 11:00 AM EDT Telemedicine Genetics [facility], [facility] [address] [place] [address] Tonya Jovel, MS [address] [place] [address] 06/04/2024 3:40 PM EST [facility]medicine [facility] [address] [place] [phone] Charmaine Mckeon, [address] [place] [address] 10/14/2024 2:00 PM EDT Nurse Only Ancillary [facility] Shilpa [place] [address] [place] [address] Shilpa Nurse Annual Wellness Scenery [address] [place] [address] Pending Results Name Type Priority Associated Diagnoses Date /Time COMPREHENSIVE METABOLIC PANEL Lab STAT History of breast cancer Anemia, unspecified type MGUS (monoclonal gammopathy of unknown significance) Chemotherapy-induced neuropathy (HCC) 12/04/2023 10:01 AM EDT VITAMIN B12 Lab STAT History of breast cancer Anemia, unspecified type MGUS (monoclonal gammopathy of unknown significance) Chemotherapy-induced neuropathy (HCC) 12/04/2023 10:01 AM EDT FOLIC ACID Lab STAT History of breast cancer Anemia, unspecified type MGUS (monoclonal gammopathy of unknown significance) Chemotherapy-induced neuropathy (HCC) 12/04/2023 10:01 AM EDT SERUM PROTEIN ELECTROPHORESIS REFLEX PROFILE Lab STAT History of breast cancer Anemia, unspecified type MGUS (monoclonal gammopathy of unknown significance) Chemotherapy-induced neuropathy (HCC) 12/04/2023 10:01 AM EDT SERUM FREE LIGHT CHAINS Lab STAT History of breast cancer Anemia, unspecified type MGUS (monoclonal gammopathy of unknown significance) Chemotherapy-induced neuropathy (HCC) 12/04/2023 10:01 AM EDT IMMUNOGLOBULIN QUANTITATIVE Lab STAT History of breast cancer Anemia, unspecified type MGUS (monoclonal gammopathy of unknown significance) Chemotherapy-induced neuropathy (HCC) 12/04/2023 10:01 AM EDT VALPROIC ACID LEVEL Lab Routine PETER (generalized anxiety disorder) 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) 12/04/2023 10:01 AM EDT HEMOGLOBIN A1C Lab Routine History of bipolar disorder 12/04/2023 10:01 AM EDT LIPID PANEL WITH DIRECT LDL IF TG IS HIGH Lab Routine History of bipolar disorder 12/04/2023 10:01 AM EDT Health Maintenance Due Date Last Done Comments [...] Procedure Name Priority Date/Time Associated Diagnosis Comments DIFFERENTIAL, AUTOMATED STAT 12/04/2023 10:01 AM EDT History of breast cancer Anemia, unspecified type MGUS (monoclonal gammopathy of unknown significance) Chemotherapy-induced neuropathy (HCC) CBC STAT 12/04/2023 10:01 AM EDT History of breast cancer Anemia, unspecified type MGUS (monoclonal gammopathy of unknown significance) Chemotherapy-induced neuropathy (HCC) CBC STAT 12/04/2023 10:01 AM EDT History of breast cancer Anemia, unspecified type MGUS (monoclonal gammopathy of unknown significance) Chemotherapy-induced neuropathy (HCC) documented in this encounter Results * (ABNORMAL) DIFFERENTIAL, AUTOMATED (12/04/2023 10:01 AM EDT) Pathologist [facility] WBC 4.90 4.00 - 10.80 K/uL 12/04/2023 10:08 AM EDT LABORATORY [place] 56-02 Neutrophils % 69.2 40.0 - 75.0 % 12/04/2023 10:08 AM EDT LABORATORY [place] 56-02 Lymphocytes % 12.9(L) 18.0 - 42.0 % 12/04/2023 10:08 AM EDT LABORATORY [place] 56-02 Monocytes % 15.7(H) 1.0 - 11.0 % 12/04/2023 10:08 AM EDT LABORATORY [place] 56-02 Eosinophils % 2.0 0.0 - 6.0 % 12/04/2023 10:08 AM EDT LABORATORY [facility] 56-02 Basophils % 0.2 0.0 - 2.0 % 12/04/2023 10:08 AM EDT LABORATORY [facility] 56-02 Absolute Neutrophils 3.39 1.80 - 7.70 K/uL 12/04/2023 10:08 AM EDT LABORATORY [facility] 56-02 Absolute Lymphocytes 0.63(L) 1.00 - 4.80 K/ul 12/04/2023 10:08 AM EDT LABORATORY [place] 56-02 Absolute Monocytes 0.77 0.00 - 1.10 K/uL 12/04/2023 10:08 AM EDT LABORATORY [place] 56-02 Absolute Eosinophils 0.10 0.00 - 0.70 K/uL 12/04/2023 10:08 AM EDT [facility] 56- Absolute Basophils 0.01 0.00 - 0.20 K/uL 12/04/2023 10:08 AM EDT [facility] 56 Blood Venous blood specimen / Unknown Venipuncture / Unknown 12/04/2023 10:01 AM EDT 12/04/2023 10:01 AM EDT [facility] LAB BLOOD ORDER [place] [address] [place] [address] * (ABNORMAL) CBC (12/04/2023 10:01 AM EDT) WBC 4.90 4.00 - 10.80 K/uL 12/04/2023 10:08 [address] EDT [address] RBC 2.93 3.85 - 5.15 M/uL 12/04/2023 10:08 AM T [address] HGB 8.9(L) 12.0 - 15.3 g/dL 12/04/2023 10:08 AM [facility] HCT 27.5(L) 36.0 - 45.2 % 12/04/2023 10:08 AM [facility] 56 MCV 93.9 81.5 - 97.5 fL 12/04/2023 10:08 AM T [facility] 56 MCH 30.4 27.0 - 34.0 pg 12/04/2023 10:08 AM EDT [facility] 56 MCHC 32.4 32.0 - 36.0 g/dL 12/04/2023 10:08 AM T [facility] 56- RDW 14.8 11.5 - 15.5 % 12/04/2023 10:08 AM [facility] 56 PLT 213 140 - 400 K/uL 12/04/2023 10:08 AM EDT [facility] 56 MPV 9.4 6.6 - 11.1 fL 12/04/2023 10:08 AM EDT [facility] 56- Blood Venous blood specimen / Unknown Venipuncture / Unknown 12/04/2023 10:01 AM EDT 12/04/2023 10:01 AM EDT Marietta Sanderson Martin [facility] LAB BLOOD ORDER [facility] [facility] 56- 200 [facility] [address] documented in this encounter Visit Diagnoses Diagnosis History of breast cancer Personal history of malignant neoplasm of breast Anemia, unspecified type MGUS (monoclonal gammopathy of unknown significance) 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 Care Teams Ase Certified Technician Relationship Specialty Start Date End Date Jose M Seth MD 200 [facility] [address] PCP - General Internal Medicine 11/21/11 documented as of this encounter
--- OUTSIDE RECORDS SUMMARY | 2023-12-07 12:12 | External Medical Summary ---
Author Name Unknown Address Unknown Organization K01:LABORATORY [facility] - [address] [facility] [address] Laboratory Report Ordering Provider Test Date Status EMIR SCHMITZ 12/04/2023 16:18:34 Final Observation Date Value Abnormality Reference (Units) Status Bacteria identified in Specimen by Culture 12/04/2023 16:18:34 No significant growth Final Test: Culture, Urine, Quanti tative
Specimen Source: Urine, Clean Catch
Specimen Type: Urine
Specimen Date: 12/04/2023 1618
Result Date: 12/05/2023 1542
Result Status: Final result
Resulting Lab: LABORATORY [facility]
[address]
[facility] [address]

CULTURE

No significant growth

null Performing Location LABORATORY [facility] - [address] [facility] [address]
--- OUTSIDE RECORDS SUMMARY | 2023-12-07 12:12 | External Medical Summary ---
Author Name Unknown Address Unknown Organization K01:[facility] [place] [address] [facility] [place] [address] Laboratory Report Ordering Provider Test Date Status BRITTANY MONCADA 12/04/2023 10:01:05 Final Observation Date Value Abnormality Reference (Units ) Status Iron 12/04/2023 10:01:05 41 33-151 (ug /dL) Final Iron-binding capacity 12/04/2023 10:01:05 257 250-425 (ug/dL) Final Transferrin Sat % 12/04/2023 10:01:05 16 15 -55 (%) Final Performing Location [facility] [place] [address] [place] [address]
--- OUTSIDE RECORDS SUMMARY | 2023-12-07 12:12 | External Medical Summary | Summary of Care ---
Author Name Unknown Organization [facility] Address [address] [place] [address] Phone [phone] Care Team Providers Care Control And Recovery Combat Rescue Name Role Phone Jose M Seth MD Primary Care Provider + Reason for Visit * Reason Comments Re-Check Has some specific co ncerns Encounter Details Date Type Department Care Team (Late st Contact Info) Description 12/04/2023 2:40 PM EDT Office Visit General Internal Medicine [facility] 200 [place] [address] Patience Berrios PA-C 200 [place] [address] Confusion*; Abnormal urinalysis; Rectal bleeding; Hemorrhoids, external [...] needed. 100 Tab 04/15/2020 Active Saline Nasal [place] 0.65 % Nasal Solution ([place] Nasal [place]) Two sprays in each nostril as needed [...] Jose M Seth MD Pharmacy: Maricruz Foster [facility] 08/09/2013 12/16/2015 Dementia 07/19/2013 2017 Encounter [...] 2:52 PM EDT Oxygen Saturation 95% 12/04/2023 2: 52 PM EDT Inhaled Oxygen Concentration - - [...] 12/08/2023 2:30 PM EDT Office Visit Hematology/Oncology [facility] 200 [facility] [place] [phone] Marietta Salazar CRNP 400 [facility] [place] [address] 12/11/2023 10:45 AM EDT Office Visit Urology, [facility] 132 [facility] [place] [address] Mendel Macedo MD 27 [facility] [place] [address] 12/12/2023 11:00 AM EDT Office Visit General Internal Medicine [facility] 200 [facility] [place] [place] [address] Patience Berrios PA-C 200 [facility] [place] [address] 12/13/2023 1:30 PM EDT Cardiac Studies Cardiac Studies, [facility] [address] 12/21/2023 2:20 PM EDT Office Visit General Internal Medicine [facility] [place] 200 [place] [address] Jose M Seth MD 200 [facility] [place] [address] 12/25/2023 1:30 PM EDT Office Visit Psychiatry, [facility] 200 [facility] [place] [address] Paty Haynes CRNP 200 [place] [address] 01/25/2024 11:00 AM EDT Telemedicine Genetics [facility], [address] [address] Tonya Jovel, MS 132 [place] [address] 06/04/2024 3:40 PM EST Telemedicine Sleep Disorders Ctr [facility] 132 [place] [address] Charmaine Mckeon, 132 [place] [address] 10/14/2024 2:00 PM EDT Nurse Only Ancillary [facility] [place] 200 [place] [address] Shilpa, Nurse Annual Wellness [address] [facility] [place] [address] Scheduled Orders Name Type Priority Associated Diagnoses [...] POINT OF CARE (ENTER/EDIT) (12/04/2023) Color, Urine [place] Yellow or Light Yellow Clarity, Urine Clear Clear Glucose, Urine Negative Negative mg/dL Bilirubin, Urine Small Negative Ketone, Urine Trace Negative mg/dL Specific [place], Urine 1.025 1.003 - 1.030 Blood, Urine [...] and were consensually agreed upon. Care Teams Control And Recovery Combat Rescue Relationship Specialty Start Date End Date Jose M Seth MD 200 [place] [address] PCP - General Internal Medicine 11/21/11 documented as of this encounter
--- OUTSIDE RECORDS SUMMARY | 2023-12-07 12:12 | External Medical Summary ---
Author Name Unknown Address Unknown Organization K01:[facility]ATORY [facility] - [address] [facility] [place] [address] Laboratory Report Ordering Provider Test Date Status TIFFANY BLAND 12/04/2023 10:01:05 Final 12 hour fasting Observation Date Value Abnormality Reference (Units ) Status Triglyceride 12/04/2023 10:01:05 62 <=174 ( mg/dL) Final Triglyceride Reference Range s (mg/dL):
<150 Acceptable
150-174 Borderline high
175-499 High
>=500 Very high Cholesterol 12/04/2023 10:01:05 135 <200 (mg /dL) Final Total Cholesterol Reference Ranges (mg/dL):
<200 Desirable
200-239 Borderline high
>=240 High HDL 12/04/2023 10:01:05 54 >49 (mg/dL ) Final HDL Cholesterol Reference Ra nges (mg/dL):
>=60 High (Desirable)
<50 Low (Undesirable) For Females
<40 Low (Undesirable) For Males NON-HDL CHOLESTEROL 12/04/2023 10:01:05 81 <=159 (mg/dL) Final Non-HDL Cholesterol Referenc e Range (mg/dL):
<100 Target level for high risk ASCVD patient
<130 Optimal for general population
130-159 Near optimal for general population
160-189 Borderline High
190-219 High
>=220 Very High LDL, (calculated) 12/04/2023 10:01:05 69 <= 129 (mg/dL) Final LDL Cholesterol Reference Ra nges (mg/dL):
<70 Target level for high risk ASCVD patient
<100 Optimal for general population
100-129 Near optimal for general population
130-159 Borderline high
160-189 High
>=190 Very high Performing Location [facility] [place] [address] [facility] [address]
--- OUTSIDE RECORDS SUMMARY | 2023-12-07 12:12 | External Medical Summary | Summary of Care ---
Author Name Unknown Organization [facility] Address [address] [place] [address] Phone [phone] Care Team Providers Care Caretaker Resort Name Role Phone Jose M Seth MD Primary Care Provider + Reason for Visit * Reason Onset Date Comments Advice 11/27/2023 Encounter Details Date Type Department Care Team (Late st Contact Info) Description 11/27/2023 Telephone Access Center, [place] [address] [facility] *DO NOT REMOVE THIS DEPARTMENT* [place] [address] Services, Scheduling [address] [place] [address] Advice Allergies Active Allergy Reactions Criticality Noted Date [...] as of this encounter (statuses as of 11/28/2023) Medications Medication Sig Dispensed Refills Start Date [...] needed. 100 Tab 04/15/2020 Active Saline Nasal [place] 0.65 % Nasal Solution ([place] Nasal [place]) Two sprays in each nostril as needed [...] as of this encounter (statuses as of 11/28/2023) Active Problems Problem Noted Date Diagnosed Date [...] PSG -- AHI 10.7, <89% 128 mins [facility] Returned machine Jun 2013 Nocturnal hypoxemia 06/18/2012 Overview: 2 LPM [facility] 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 documented as of this encounter (statuses as of 11/28/2023) Resolved Problems Problem Noted Date Diagnosed Date [...] as of this encounter (statuses as of 11/28/2023) Immunizations Name Administration Dates Next Due COVID-19 mRNA, LNP-s, No Pre serve, 2-Dose Series (Pixability) 02/18/2021,08/10/2020,07/06/2020 COVID-19, MRNA-LNP, 23-24, P F, 30 MCG/0.3 mL, 12 YRS AND ABOVE, IM ([employer]) 04/11/2023 Covid-19, Mrna, Lnp-s, Pf, B ivalent, [...] encounter Miscellaneous Notes * Telephone Encounter - Jacquie Álvarez OSA - 11/27/2023 11:37 AM EDT Patient daughter is calling in and would like you to know that there are some things that are happening with the patient that the patient is not telling you at her appts. Daughter was wondering if there is a way she could speak with you and let you know what's going on. She thinks that the medications her mom is on may not be enough. Best number to call daughter Molina is [phone] documented in this encounter Plan of Treatment Upcoming Encounters Date Type Department Care Team (Late st Contact Info) Description 12/04/2023 2:40 PM EDT Office Visit General Internal Medicine [facility] [address] [place] [address] Patience Berrios PA-C 200 [place] [address] 12/08/2023 2:30 PM EDT Office Visit Hematology/Oncology [facility] [address] [place] [phone] Marietta Salazar CRNP 400 [facility] [place] [address] 12/11/2023 10:45 AM EDT Office Visit Urology, [facility] 132 [facility] [place] [address] Mendel Macedo MD [address] [place] [address] 12/13/2023 1:30 PM EDT Cardiac Studies Cardiac Studies, [facility] 132 [facility] [place] [address] 12/21/2023 2:20 PM EDT Office Visit General Internal Medicine [facility] 200 [facility] [place] [address] Jose M Seth MD 200 [facility] [place] [address] 12/25/2023 1:30 PM EDT Office Visit Psychiatry, [facility] Shilpa 200 [facility] [place], [place] [address] Paty Haynes CRNP [address] [place] [address] 01/25/2024 11:00 AM EDT Telemedicine Genetics [facility], [facility] 100 [place] [address] Tonya Jovel, MS [address] [place] [address] 06/04/2024 3:40 PM EST Telemedicine Sleep Disorders Ctr Sinan Alvarez [place] [address] [place] [phone] Charmaine Mckeon DO [address] [place] [address] 10/14/2024 2:00 PM EDT Nurse Only Ancillary [facility] [place] [address] [place] [address] Shilpa Nurse Annual Wellness [facility] 200 [facility] [place] [address] Health Maintenance Due Date Last Done Comments [...] Not on filedocumented as of this encounter Advance Directives * Full Code (Latest Code Status on File) Date Activated Date Inactivated Comments 09/24/2012 8:15 PM 10/02/2012 7:35 PM This order re flects the patients wishes and were consensually agreed upon. Care Teams Caretaker Resort Relationship Specialty Start Date End Date Jose M Seth MD 200 [place] [address] PCP - General Internal Medicine 11/21/11 documented as of this encounter
--- OUTSIDE RECORDS SUMMARY | 2023-12-07 12:12 | External Medical Summary ---
Author Name Unknown Address Unknown Organization K01:[facility] [place] [address] [place] [address] Laboratory Report Ordering Provider Test Date Status BRITTANY MONCADA 12/04/2023 10:01:05 Final Observation Date Value Abnormality Reference (Units ) Status Folic Acid 12/04/2023 10:01:05 10.3 >4.5 (ng/ mL) Final Performing Location [facility]ORY [facility] - [address] [place] [address]
--- OUTSIDE RECORDS SUMMARY | 2023-12-07 12:12 | External Medical Summary | Summary of Care ---
Author Name Unknown Organization [facility] Address [address] [place] [address] Phone [phone] Care Team Providers Care Director Of Group Counseling Program Name Role Phone Jose M Seth MD Primary Care Provider + Reason for Visit * Reason Comments Outpatient Testing Encounter Details Date Type Department Care Team (Late st Contact Info) Description 12/04/2023 10:10 AM EDT Laboratory Laboratory [facility] [place] [address] [place] [address] [facility] Lab [facility] 200 [facility] [place] [address] History of breast cancer; Anemia, unspecified type; [...] needed. 100 Tab 04/15/2020 Active Saline Nasal [place] 0.65 % Nasal Solution ([place] Nasal [place]) Two sprays in each nostril as needed [...] PSG -- AHI 10.7, <89% 128 mins [facility] Returned machine Jun 2013 Nocturnal hypoxemia 06/18/2012 Overview: 2 LPM [facility] Chronic knee pain History of wound [...] Jose M Seth MD Pharmacy: Maricruz Foster [facility] 08/09/2013 12/16/2015 Dementia 07/19/2013 2017 Encounter [...] mRNA, LNP-s, No Pre serve, 2-Dose Series (Giggzo) 02/18/2021,08/10/2020,07/06/2020 COVID-19, MRNA-LNP, 23-24, P F, 30 [...] PM EDT Office Visit General Internal Medicine [facility] [place] [address] [place] [address] Patience Berrios PA-C [address] [place] [address] 12/08/2023 2:30 PM EDT Office Visit Hematology/Oncology [facility] 200 [facility] [place] [phone] Marietta Salazar CRNP [address] [place] [address] 12/11/2023 10:45 AM EDT Office Visit Urology, [facility] 132 [place] [address] Mendel Macedo MD [address] [facility] [place] [address] 12/13/2023 1:30 PM EDT Cardiac Studies Cardiac Studies, [facility] 132 [place] [address] 12/21/2023 2:20 PM EDT Office Visit General Internal Medicine [facility] [address] [place] [address] Jose M Seth MD 200 [facility] [place] [address] 12/25/2023 1:30 PM EDT Office Visit Psychiatry, [facility] [address] [place], [place] [address] Paty Haynes CRNP 200 [facility] [place] [address] 01/25/2024 11:00 AM EDT Telemedicine Genetics [facility], [facility] [address] [place] [address] Tonya Jovel, MS [address] [place] [address] 06/04/2024 3:40 PM EST [facility]icine [facility] [address] [place] [phone] Charmaine Mckeon, [address] [place] [address] 10/14/2024 2:00 PM EDT Nurse Only Ancillary [facility] Shilpa [place] [address] [place] [address] Shilpa Nurse Annual Wellness [address] [place] [address] Pending Results Name Type Priority Associated Diagnoses Date /Time CBC WITH WBC DIFFERENTIAL Lab STAT History of breast cancer Anemia, unspecified type MGUS (monoclonal gammopathy of unknown significance) Chemotherapy-induced neuropathy (HCC) 12/04/2023 10:01 AM EDT COMPREHENSIVE METABOLIC PANEL Lab STAT History of [...] of bipolar disorder 12/04/2023 10:01 AM EDT CBC Lab STAT History of breast cancer Anemia, unspecified type MGUS (monoclonal gammopathy of unknown significance) Chemotherapy-induced neuropathy (HCC) 12/04/2023 10:01 AM EDT DIFFERENTIAL, AUTOMATED Lab STAT History of breast cancer Anemia, unspecified type MGUS (monoclonal gammopathy of unknown significance) Chemotherapy-induced neuropathy (HCC) 12/04/2023 10:01 AM EDT Health Maintenance Due [...] Not on filedocumented as of this encounter Visit Diagnoses Diagnosis History of [...] and were consensually agreed upon. Care Teams Director Of Group Counseling Program Relationship Specialty Start Date End Date Jose M Seth MD 200 [facility] [place] [address] PCP - General Internal Medicine 11/21/11 documented as of this encounter
--- OUTSIDE RECORDS SUMMARY | 2023-12-07 12:12 | External Medical Summary | Summary of Care ---
Author Name Unknown Organization [facility] Address [address] [facility] [place] [address] Phone [phone] Care Team Providers Care Construction Ironworker Helper Name Role Phone Jose M Seth MD Primary Care Provider + Encounter Details Date Type Department Care Team (Late st Contact Info) Description 12/04/2023 Orders Only Hematology/Oncology [facility] 200 [facility] [place] [place] [address] Marietta Salazar CRNP 400 [facility] [place] [address] Anemia, unspecified type* Allergies Active Allergy Reactions Criticality Noted Date [...] needed. 100 Tab 04/15/2020 Active Saline Nasal [place] 0.65 % Nasal Solution ([place] Nasal [place]) Two sprays in each nostril as needed [...] PSG -- AHI 10.7, <89% 128 mins [facility] Returned machine Jun 2013 Nocturnal hypoxemia 06/18/2012 Overview: 2 LPM [facility] Chronic knee pain History of wound [...] Jose M Seth MD Pharmacy: Maricruz Foster [facility] 08/09/2013 12/16/2015 Dementia 07/19/2013 2017 Encounter [...] mRNA, LNP-s, No Pre serve, 2-Dose Series (Bitium) 02/18/2021,08/10/2020,07/06/2020 COVID-19, MRNA-LNP, 23-24, P F, 30 MCG/0.3 mL, 12 YRS AND ABOVE, IM ([employer]) 04/11/2023 Covid-19, Mrna, Lnp-s, Pf, B ivalent, [...] No 10/09/2023 Does the household have a [facility] mexicolar source of income? (Household - for ages [...] PM EDT Office Visit General Internal Medicine [facility] [address] [place] [address] Patience Berrios PA-C 200 [facility] [place] [address] 12/08/2023 2:30 PM EDT Office Visit Hematology/Oncology [facility] 200 [facility] [place] [phone] Marietta Salazar CRNP 400 [facility] [place] [address] 12/11/2023 10:45 AM EDT Office Visit Urology, [facility] 132 [facility] [place] [address] Mendel Macedo MD [address] [facility] [address] 12/13/2023 1:30 PM EDT Cardiac Studies Cardiac Studies, [facility] 132 [facility] [address] 12/21/2023 2:20 PM EDT Office Visit General Internal Medicine [facility] 200 [facility] [place] [address] Jose M Seth MD 200 [facility] [place] [address] 12/25/2023 1:30 PM EDT Office Visit Psychiatry, [facility] [address] [place] [address] Paty Haynes CRNP 200 [facility] [place] [address] 01/25/2024 11:00 AM EDT Telemedicine Genetics [facility], [address] [address] Tonya Jovel, MS [address] [place] [address] 06/04/2024 3:40 PM EST [facility] [address] [place] [phone] Charmaine Mckeon, DO [address] [place] [address] 10/14/2024 2:00 PM EDT Nurse Only Ancillary [facility] [place] [address] [place] [address] Shilpa, Nurse Annual Wellness [address] [facility] [place] [address] Scheduled Orders Name Type Priority Associated Diagnoses Orde r Schedule FERRITIN Lab Routine Anemia, unspecified type Ordered: 12/04/2023 IRON SCREEN, INCLUDING TIBC Lab Routine Anemia, unspecified type Ordered: 12/04/2023 Health Maintenance Due Date Last [...] as of this encounter Visit Diagnoses Diagnosis Anemia, unspecified type- Primary documented in this encounter Advance Directives * Full Code (Latest Code Status on File) Date Activated Date Inactivated Comments 09/24/2012 8:15 PM 10/02/2012 7:35 PM This order re flects the patients wishes and were consensually agreed upon. Care Teams Construction Ironworker Helper Relationship Specialty Start Date End Date Jose M Seth MD 200 [place] [address] PCP - General Internal Medicine 11/21/11 documented as of this encounter
--- OUTSIDE RECORDS SUMMARY | 2023-12-07 12:12 | External Medical Summary | Summary of Care ---
Author Name Unknown Organization [facility] Address [address] [place] [address] Phone [phone] Care Team Providers Care Blood Bank Specialist Name Role Phone Jose M Seth MD Primary Care Provider + Reason for Visit * Reason Onset Date Comments Advice 11/27/2023 Encounter Details Date Type Department Care Team (Late st Contact Info) Description 11/27/2023 Telephone Access Center, [place] [address] [facility] *DO NOT REMOVE THIS DEPARTMENT* [place] [address] Services, Scheduling [address] [place] [address] Advice Allergies Active Allergy Reactions Criticality Noted [...] as of this encounter (statuses as of 11/29/2023) Medications Medication Sig Dispensed Refills Start Date [...] needed. 100 Tab 04/15/2020 Active Saline Nasal [place] 0.65 % Nasal Solution (Caspian Nasal [place]) Two sprays in each nostril as needed [...] as of this encounter (statuses as of 11/29/2023) Active Problems Problem Noted Date Diagnosed Date [...] PSG -- AHI 10.7, <89% 128 mins [facility] Returned machine Jun 2013 Nocturnal hypoxemia 06/18/2012 Overview: 2 LPM [facility] 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 documented as of this encounter (statuses as of 11/29/2023) Resolved Problems Problem Noted Date Diagnosed Date [...] Seth MD Pharmacy: [facility] 08/09/2013 12/16/2015 Dementia 07/19/2013 2017 Encounter [...] as of this encounter (statuses as of 11/29/2023) Immunizations Name Administration Dates Next Due COVID-19 mRNA, LNP-s, No Pre serve, 2-Dose Series ([employer]) 02/18/2021,08/10/2020,07/06/2020 COVID-19, MRNA-LNP, 23-24, P F, 30 MCG/0.3 mL, 12 YRS AND ABOVE, IM ([facility]) 04/11/2023 Covid-19, Mrna, Lnp-s, Pf, B ivalent, [...] as of this encounter Miscellaneous Notes * Addendum Note - Paty Haynes CRNP - 11/29/2023 11:07 AM EDTAddended by: PATY HAYNES on: 11/29/2023 11:07 AM Modules accepted: Orders * Telephone Encounter - Paty Haynes CRNP - 11/29/2023 10:56 AM EDT T/C with pt's daughter regarding concerns she and her sisters have related to pt's emotional responses. Described labile mood and physical acting out by throwing items (not at anyone) at times when angry. Pt's family would like to be part of pt's next appt. This was encouraged but will be at the pt's discretion. Pt's daughter related she will be reducing her hours as her mother's aid to improve their relationship due to conflicts when in this role. Reports anger and worrying behaviors have beenincreased for the last 6-8 months. Pt has not fully disclosed her mood lability, anger and worry symptoms, although her presentation has been more irritable over the past two appts. Will order lab work to evaluate medication adherence. Therapy referral submitted 09/18/23, but reportedly has not started yet. * Telephone Encounter - Jacquie Álvarez OSA [...] Best number to call daughter Molina is [phone] documented in this encounter Plan of Treatment Upcoming Encounters Date Type Department Care Team (Late st Contact Info) Description 12/04/2023 2:40 PM EDT Office Visit General Internal Medicine [facility] [place] [address] [place] [address] Patience Berrios PA-C [address] [facility] [place] [address] 12/08/2023 2:30 PM EDT Office Visit Hematology/Oncology [facility] [address] [facility] [place] [phone] Marietta Salazar CRNP [address] [facility] [place] [phone] 12/11/2023 10:45 AM EDT Office Visit Urology, [facility] [address] [place] [address] Mendel Macedo MD [address] [place] [address] 12/13/2023 1:30 PM EDT Cardiac Studies Cardiac Studies, [facility] [address] [place] [address] 12/21/2023 2:20 PM EDT Office Visit General Internal Medicine [facility] [address] [facility] [place] [address] Jose M Seth MD [address] [facility] [place] [address] 12/25/2023 1:30 PM EDT Office Visit Psychiatry, [facility] [address] [facility] [place] [address] Paty Haynes CRNP [address] [facility] [place] [address] 01/25/2024 11:00 AM EDT Telemedicine Genetics HemOnc, [address] [address] Tonya Jovel, [place] [address] [place] [address] 06/04/2024 3:40 PM EST Telemedicine [facility] Al[facility] [place] [address] [place] [phone] Charmaine Mckeon DO [address] [place] [address] 10/14/2024 2:00 PM EDT Nurse Only Ancillary [facility] [place] [address] [place] [address] Shilpa, Nurse [facility] [address] [facility] [place] [address] Scheduled Orders Name Type Priority Associated Diagnoses Orde r Schedule CBC WITH WBC DIFFERENTIAL Lab Routine History of bipolar disorder Every 3 Months for 4 Occurrences starting 11/29/2023 until 11/28/2024 COMPREHENSIVE METABOLIC PANEL Lab Routine History of bipolar disorder Every 3 Months for 4 Occurrences starting 11/29/2023 until 11/28/2024 HEMOGLOBIN A1C Lab Routine History of bipolar disorder Every 3 Months for 4 Occurrences starting 11/29/2023 until 11/28/2024 LIPID PANEL WITH DIRECT LDL IF TG IS HIGH Lab Routine History of bipolar disorder Every 3 Months for 4 Occurrences starting 11/29/2023 until 11/28/2024 Health Maintenance Due Date Last Done Comments [...] this encounter Visit Diagnoses Diagnosis History of bipolar disorder- Primary Personal history of affective disorder documented in this encounter Advance Directives * Full Code (Latest Code Status on File) Date Activated Date Inactivated Comments 09/24/2012 8:15 PM 10/02/2012 7:35 PM This order re flects the patients wishes and were consensually agreed upon. Care Teams Blood Bank Specialist Relationship Specialty Start Date End Date Jose M Seth MD [address] [place] [address] PCP - General Internal Medicine 11/21/11 documented as of this encounter
--- OUTSIDE RECORDS SUMMARY | 2023-12-07 12:12 | External Medical Summary ---
Author Name Unknown Address Unknown Organization [id number]:LABORATORY [facility] - [address] [place] [address] Laboratory Report Ordering Provider Test Date Status BRITTANY MONCADA 12/04/2023 10:01:05 Final Observation Date Value Abnormality Reference (Units ) Status Vitamin B12 12/04/2023 10:01:05 [phone] (pg/mL) Final Performing Location [facility] - [address] [place] [address]
--- OUTSIDE RECORDS SUMMARY | 2023-12-07 12:12 | External Medical Summary ---
Author Name Unknown Address Unknown Organization [id number]:LABORATORY [facility] - [address] [facility] [address] [place] [address] Laboratory Report Ordering Provider Test Date Status BRITTANY MONCADA 12/04/2023 10:01:05 Final Observation Date Value Abnormality Reference (Units ) Status [place] light chains, Free, Serum 12/04/2023 10:01:05 23.78 Above high normal 3.30-19.40 (mg/L) Final Lambda light chains, free, Serum 12/04/2023 10:01:05 8.95 5.71-26.30 (mg/L) Final KAPPA LAMBDA FLC RATIO 12/04/2023 10:01:05 2.66 Above high normal 0.26-1.65 Final Performing Location LABORATORY [facility] - [address] [place] [address]
--- OUTSIDE RECORDS SUMMARY | 2023-12-07 12:12 | External Medical Summary ---
Author Name Unknown Address Unknown Organization [id number]:LABORATORY [facility] - [address] [facility] [address] Laboratory Report Ordering Provider Test Date Status BRITTANY MONCADA 12/04/2023 10:01:05 Final Observation Date Value Abnormality Reference (Units) Status PARAPROTEIN NORMAL/ABNORMAL 12/04/2023 10:01:05 Abnormal Abnormal Normal Final Protein 12/04/2023 10:01:05 6.4 6.0-8.3 (g/dL) Final Albumin/Protein.total [Pure mass fraction] in Serum or Plasma by Electrophoresis 12/04/2023 10:01:05 2.98 Below low normal 3.30-4.40 (g/dL) Final Alpha 1 globulin/Protein.tota l [Pure mass fraction] in Serum or Plasma by Electrophoresis 12/04/2023 10:01:05 0.21 0.10-0.30 (g/dL) Final Alpha 2 globulin/Protein.tota l [Pure mass fraction] in Serum or Plasma by Electrophoresis 12/04/2023 10:01:05 0.82 0.60-1.00 (g/dL) Final Beta globulin/Protein.tota l [Pure mass fraction] in Serum or Plasma by Electrophoresis 12/04/2023 10:01:05 0.74 Below low normal 0.80-1.30 (g/dL) Final Gamma globulin/Protein.tota l [Pure mass fraction] in Serum or Plasma by Electrophoresis 12/04/2023 10:01:05 1.44 0.70-1.70 (g/dL) Final Monoclonal protein 12/04/2023 10:01:05 1.06 (g/dL) Final Protein Fractions [Interpretation] in Serum or Plasma by Electrophoresis Narrative 12/04/2023 10:01:05 Abnormal. 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 Final Performing Location LABORATORY [facility] - [address] [facility] [address]
--- OUTSIDE RECORDS SUMMARY | 2023-12-07 12:12 | External Medical Summary ---
Author Name Unknown Address Unknown Organization K01:LABORATORY [facility] - [address] [place] [address] Laboratory Report Ordering Provider Test Date Status TIFFANY BLAND 12/04/2023 10:01:05 Final Observation Date Value Abnormality Reference (Units ) Status Valproic Acid, level 12/04/2023 10:01:05 84 50-100 (ug/mL) Final Performing Location [facility] - [address] [place] [address]
--- OUTSIDE RECORDS SUMMARY | 2023-12-07 12:12 | External Medical Summary ---
Author Name Unknown Address Unknown Organization K09:[facility] [place] [address] Laboratory Report Ordering Provider Test Date Status BRITTANY MONCADA 12/04/2023 10:01:05 Final Observation Date Value Abnormality Reference (Units ) Status SYNC LEUKOCYTES IN BLOOD BY AUTOMATED COUNT 12/04/2023 10:01:05 4.90 4.00-10.80 (K/uL) Final Segs 12/04/2023 10:01:05 69.2 40.0-75.0 (%) Final Lymphs % 12/04/2023 10:01:05 12.9 Below low normal 18.0-42.0 (%) Final Monos 12/04/2023 10:01:05 15.7 Above high normal 1.0-11.0 (%) Final Eosinophils 12/04/2023 10:01:05 2.0 0.0-6.0 (%) Final Basos 12/04/2023 10:01:05 0.2 0.0-2.0 (%) Final Absolute Segs 12/04/2023 10:01:05 3.39 1.80-7.70 (K/uL) Final Lymphs, absolute 12/04/2023 10:01:05 0.63 Below low normal 1.00-4.80 (K/ul) Final Monos, Abs 12/04/2023 10:01:05 0.77 0.00-1.10 (K/uL) Final Eos, Abs 12/04/2023 10:01:05 0.10 0.00-0.70 (K/uL) Final Basos, Abs 12/04/2023 10:01:05 0.01 0.00-0.20 (K/uL) Final Performing Location [facility] [place] [address]
--- OUTSIDE RECORDS SUMMARY | 2023-12-07 12:12 | External Medical Summary ---
Author Name Unknown Address Unknown Organization K09:[facility] [place] [address] Laboratory Report Ordering Provider Test Date Status BRITTANY MONCADA 12/04/2023 10:01:05 Final Observation Date Value Abnormality Reference (Units ) Status WBC, Total 12/04/2023 10:01:05 4.90 4.00-10.8 0 (K/uL) Final RBC 12/04/2023 10:01:05 2.93 3.85-5.15 (M/uL) Final Hemoglobin 12/04/2023 10:01:05 8.9 Below low normal 12 .0-15.3 (g/dL) Final HCT 12/04/2023 10:01:05 27.5 Below low normal 36. 0-45.2 (%) Final MCV 12/04/2023 10:01:05 93.9 81.5-97.5 (fL) Final MCH 12/04/2023 10:01:05 30.4 27.0-34.0 (pg) Final MCHC 12/04/2023 10:01:05 32.4 32.0-36.0 (g/dL) Final RDW 12/04/2023 10:01:05 14.8 11.5-15.5 (%) Final Platelets 12/04/2023 10:01:05 213 140-400 (K /uL) Final MPV 12/04/2023 10:01:05 9.4 6.6-11.1 ( fL) Final Performing Location [facility] [place] [address]
--- OUTSIDE RECORDS SUMMARY | 2023-12-07 12:12 | External Medical Summary ---
Author Name Unknown Address Unknown Organization K01:LABORATORY [facility] - [address] [place] [address] Laboratory Report Ordering Provider Test Date Status BRITTANY MONCADA 12/04/2023 10:01:05 Final Observation Date Value Abnormality Reference (Units ) Status IgG 12/04/2023 10:01:05 1635 Above high normal 70 0-1600 (mg/dL) Final IgA 12/04/2023 10:01:05 64 Below low normal 70- 400 (mg/dL) Final IgM 12/04/2023 10:01:05 23 Below low normal 40- 230 (mg/dL) Final Performing Location [facility] - [address] [place] [address]
--- OUTSIDE RECORDS SUMMARY | 2023-12-07 12:12 | External Medical Summary ---
Author Name Unknown Address Unknown Organization K09:LABORATORY [facility] [address] - [address] [place] [address] Laboratory Report Ordering Provider Test Date Status BRITTANY MONCADA 12/04/2023 10:01:05 Final Observation Date Value Abnormality Reference (Units ) Status BUN 12/04/2023 10:01:05 18 6-20 (mg/dL) Final Creatinine 12/04/2023 10:01:05 0.9 0.5-1.0 (mg/dL) Final Glomerular filtration rate/1.73 sq M.predicted [Volume Rate/Area] in Serum, Plasma or Blood by Creatinine-based formula (CKD-EPI) 12/04/2023 10:01:05 69 >=60 (mL/min) Final eGFR is calculated based on the CKD-EPI 2020 equation Sodium 12/04/2023 10:01:05 135 135-146 (m mol/L) Final Potassium 12/04/2023 10:01:05 4.6 3.5-5.1 (m mol/L) Final Cl 12/04/2023 10:01:05 97 Below low normal 98- 107 (mmol/L) Final CO2 12/04/2023 10:01:05 29 22-32 (mmo l/L) Final Anion gap 12/04/2023 10:01:05 9 7-15 (mmol /L) Final Glucose 12/04/2023 10:01:05 98 70-120 (mg /dL) Final Albumin 12/04/2023 10:01:05 3.8 3.8-5.0 (g /dL) Final AST (Aspartate aminotransferase) 12/04/2023 10:01:05 15 10-35 (U/L) Fin al Alk Phos 12/04/2023 10:01:05 41 35-130 (U/ L) Final Bilirubin, Total 12/04/2023 10:01:05 0.3 <=1 .2 (mg/dL) Final Calcium 12/04/2023 10:01:05 9.3 8.4-10.2 ( mg/dL) Final Protein 12/04/2023 10:01:05 6.7 6.0-8.3 (g /dL) Final ALT (Alanine aminotransferase) 12/04/2023 10:01:05 6 Below low normal 10-35 (U/L) Final Performing Location [facility] [address] [place] [address]
--- OUTSIDE RECORDS SUMMARY | 2023-12-07 12:12 | External Medical Summary ---
Author Name Unknown Address Unknown Organization K01:[facility] - [address] [facility] [place] [facility] [address] Laboratory Report Ordering Provider Test Date Status BRITTANY MONCADA 12/04/2023 10:01:05 Final Observation Date Value Abnormality Reference (Units ) Status Ferritin 12/04/2023 10:01:05 280 Above high normal 13 -150 (ng/mL) Final Postmenopausal women have hi gher ferritin levels than pre-menopausal women. The above reference interval is based on pre-menopausal women. Performing Location [facility] - [address] [facility] [address]
--- OUTSIDE RECORDS SUMMARY | 2023-12-07 12:12 | External Medical Summary ---
Author Name Unknown Address Unknown Organization K01:LABORATORY [facility] - [address] [address] [place] [address] Laboratory Report Ordering Provider Test Date Status TIFFANY BLAND 12/04/2023 10:01:05 Final Observation Date Value Abnormality Reference (Units ) Status HbA1C 12/04/2023 10:01:05 5.3 4.0-5.6 (% ) Final The use of HbA1c to monitor glycemic status is based on normal hemoglobin and HbA composition. This test should not be used in patients with abnormal hemoglobin that affects the half life of the red blood cell or the in vivo glycation rates. Glucose, estimated average 12/04/2023 10:01:05 105 <126 (mg/dL) Final Performing Location LABORATORY [facility] - [address] [place] [address]
--- OUTSIDE RECORDS SUMMARY | 2023-12-07 12:13 | External Medical Summary | Summary of Care ---
Author Name Unknown Organization [facility] Address [address] [place] [address] Phone [phone] Care Team Providers Care Chief Operator Name Role Phone Jose M Seth MD Primary Care Provider + Reason for Visit * Reason Comments Medication Management Follow Up Encounter Details Date Type Department Care Team (Late st Contact Info) Description 11/06/2023 3:00 PM EDT Office Visit Psychiatry, [facility] [address] 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 100 Tab 04/15/2020 Active Saline Nasal Independence 0.65 % Nasal Solution ([place] Nasal Independence) Two sprays in each nostril as needed [...] Apply to knee. 150 g 07/29/2022 Active Gabapentin 300 MG Oral Capsule (Neurontin)Indicatio ns:Chronic bilateral low back pain with bilateral sciatica,MGUS (monoclonal gammopathy of unknown significance),Periph eral polyneuropathy Take 1 Capsule by mouth in the morning and 1 Capsule at noon and 1 Capsule before bedtime. 270 Capsule 3 10/26/2022 Active Premarin 0.625 MG/GM Vaginal Cream (Estrogens [...] needed for Anxiety. 10 Tablet 10/11/2023 Active Ondansetron HCl 4 MG Oral Tablet (Zofran) Take 1 Tablet by mouth every 12 hours as needed for Nausea. 30 Tablet 10/12/2023 Active CPAP every night at bedtime. 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 06/21/2023 Urge incontinence 05/02/2023 Uncomplicated asthma 11/15/2022 PETER (generalized anxiety disorder) 07/14/2022 Peripheral neuropathy 07/14/2022 History of bipolar disorder 07/14/2022 History of breast cancer 11/04/2020 Isolated proteinuria 09/16/2020 Chronic diastolic (congestive) heart failure 01/ Prediabetes 03/06/2020 Gastroesophageal reflux disease without esophagi [...] PSG -- AHI 10.7, <89% 128 mins [facility] Returned machine Jun 2013 Nocturnal hypoxemia 06/18/2012 Overview: 2 LPM [facility] 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 documented as of this encounter (statuses as of 11/06/2023) Resolved Problems Problem Noted Date Diagnosed Date [...] Jose M Seth MD Pharmacy: [facility] 08/09/2013 12/16/2015 Dementia 07/19/2013 2017 [...] as of this encounter (statuses as of 11/06/2023) Immunizations Name Administration Dates Next Due COVID-19 mRNA, LNP-s, No Pre serve, 2-Dose Series ([employer]) 02/18/2021,08/10/2020,07/06/2020 COVID-19, MRNA-LNP, 23-24, P F, 30 MCG/0.3 mL, 12 YRS AND ABOVE, IM ([facility] 04/11/2023 Covid-19, Mrna, Lnp-s, Pf, B ivalent, [...] Answer Date Recorded PHQ Adult Total Score 3 10/09/2023 Hunger Vital Sign Answer Date Recorded Within the past 12 months, y ou worried that your food would run out before you got the money to buy more. Never true 10/09/19 24 Within the past 12 months, t he food you bought just didn't last and you didn't have money to get more. Never true 10/09/2023 Sex and Gender Information Value Date Recorded Sex Assigned at Female 11/05/2018 10:53 AM EDT Gender Identity Female 11/05/2018 10:53 AM EDT Sexual Orientation Straight 11/05/2018 10 :53 AM EDT Job Start Date Occupation Industry Not on file Not on file Not on file documented as of this encounter Progress Notes * Paty Haynes CRNP - 11/06/2023 3:15 PM EDT OUTPATIENT PSYCHIATRY [place] [address] MEDICATION MANAGEMENT & PSYCHOTHERAPY RETURN VISIT NOTE Name: Kathy Mccoy : 1945 Patient location: CLINIC. I was in the same facility as the patient. SUBJECTIVE: Kathy Mccoy is a 78 year old female presenting for follow-up of mood disorder and anxiety. CC: Medication management and psychotherapy follow up treatment HISTORY OF PRESENT ILLNESS: 12/24/21: Kathy's valproic acid level noted to be low at 4 ug/mL. T/C to patient and discussed medication adherence. Pt states she does often forget to take her PM medications. We discussed her current level of mood stability and consideration of discontinuing Depakote. Pt does not feel comfortable discontinuing the medication due to the length of time she has taken it and fear her moods will become unstable in the future. We discussed ways to improve medication adherence and pt stated she willask her daughter to help her be more consistent with taking medication. Pt was instructed to restart Depakote ER 500 mg for two days then increase to 1000 mg daily. 01/05/22: Kathy stated she had not increased her dose of Depakote ER and continues to take only 500mg daily. She does admit to missing one dose of Depakote in the past week. Haleigh, who provides in home support 35 hours per week stated she was unaware her mother was not taking her medications con sistently and agreed to monitor medication adherence. We reviewed previous low valproic acid level of 4 ug/ml. Clarified that Depakote ER should be increased tonight to 1000 mg. Kathy admitted she has difficulty consistently taking her morning medications and has been missing Prozac at times. Discussed changing the dosing time of Prozac to bedtime. Both Kathy and Haleigh acknowledged understanding of change. Haleigh relates that Kathy has been more anxious recently and she (Haleigh) has encouraged use of Ativan PRN for times of high anxiety. Kathy reports she is only taking Ativan infrequently, less then 10 times per month. Kathy discussed feeling concerned about a cough that she has been experiencing and believes it may be related to one of her medical medications. She had difficulty refocusing on different topic for first 10 minutes of appt. She was encouraged to speak with her PCP about her medications. Suggestions for management of cough were discussed. Kathy admits her thoughts have been racing and she has been more irritable in the past several weeks. Her daughters also confirm moods have been less stable and she has been more rigid in her thought process. Daughtersreported poor concentration, increased confusion and forgetfulness, giving example of repeated telephone calls related to same concerns/discussions. Kathy's daughters report she often will take situations personally and at times will misinterpret situations. We discussed ways Kathy and her daughters can have improved communicate during times of agitation and anxiety. Sleep: erratic - sometimes falls asleep on chair, will get up and sometimes goes to bed. Kathy sets an alarm to wake herself every 2.5 hours for toileting due to incontinence issue. Interest: still have interest in activities - daughters believe she has been less organized in her activities Mood: happy; recently sad because of a loss of friend. Daughters feel her moods have been fluctuating between happiness and irritability Energy: slightly elevated at times; less stable recently per family. Concentration: poor - easily forget; thoughts are racing, flight of ideas Appetite: bad - taste has been disrupted since CA treatments. No weight loss noted by family Psychomotor Activity: at times feels restless Psychosis: none CURRENT PSYCHIATRIC PROVIDERS/SERVICES: [facility] case management for waiver program MEDICATION SIDE EFFECTS/ADHERENCE: Negative side effects from current prescribed psychotropic medications: none Medication adherence: good PREVIOUS PSYCHOTROPIC MEDICATION TRIALS: Paxil; records indicate attempt at discontinuing Depakote was unsuccessful in the past. RELEVANT PSYCHIATRIC, MEDICAL, FAMILY OR SOCIAL HISTORY/UPDATE: Kathy has a long history of outpatient psychiatric treatment for symptoms of mood lability and anxiety. She has previous dx of Bipolar I disorder and Major depressive disorder, recurrent, unspecified. She is currently prescribed Depakote ER 1000 mg at bedtime, Prozac 20 mg in the morning and Ativan 0.5 mg once a day as needed for anxiety. Kathy started taking medication, Depakote, for psychiatric symptoms in her 20's. She has a history of individual therapy in the past, but does not have therapy currently. She identifies a history of severe mood swings in her 's and one inpatient hospitalization in 1992, after the of her disabled son. Attempt to discontinue Depakote was attempted,but mood decompensated and medication was restarted. Kathy was dx and treated for Invasive ductal Carcinoma of left breast in 2019. See past medical history for additional medical dx. Kathy resides alone in an apartment setting and is happy with her living arrangements. She receives 35 hours of in home services provided by her daughter, Haleigh, through aging waiver program. Shewas x 2 and x 1. She has four living children; her fifth child at 25 yo. Kathy feels well supported by family and social contacts. CHANGE IN SUBSTANCE USE PATTERNS: N/A OBJECTIVE DATA: Review of patient's allergies indicates: Allergen Reactions Adhesive Tape Skin reaction , causing blister., including paper tape Codeine Nausea/vomiting Dicloxacillin Other (Please comment) Mouth sore Doxycycline Hyclate Nausea Erythromycin Base Nausea and bumps in mouth Morphine And Codeine "Crazy Loopy" Nsaids Can't take due to kidney problems. Rifampin Liver complications (Please comment) Elevated LFT's Tetracycline Base Nausea and not feeling well Zyrtec [Cetirizine Hcl] Problems breathing, overly dry There were no vitals filed for this visit. There is no height or weight on file to calculate BMI. No height and weight on file for this encounter. Weight at last 3 appointments: Wt Readings from Last 3 Encounters: 10/09/23 84.9 kg (187 lb 1.6 oz) 09/13/23 85.3 kg (188 lb) 06/21/23 87.9 kg (193 lb 11.2 oz) LABORATORY RESULTS: Recent Results (from the past 1344 hour(s)) CULTURE, URINE, QUANTITATIVE Collection Time: 09/26/23 3:18 PM Specimen: Urine, Clean Catch Result Value Ref Range Culture Growth No significant growth URINALYSIS WITH MICROSCOPIC EXAM Collection Time: 09/26/23 3:19 PM Result Value Ref Range Color, Urine Light Yellow Colorless, Light Yellow, Yellow, Dark Yellow Clarity, Urine Clear Clear Glucose, Urine Negative Negative mg/dL Bilirubin, Urine Negative Negative Ketone, Urine Negative Negative mg/dL Specific [place], Urine 1.016 1.003 - 1.030 Blood, Urine Negative Negative pH, Urine 7.0 5.0 - 7.5 Units Protein, Urine Negative Negative mg/dL Urobilinogen, Urine Normal Normal mg/dL Nitrite, Urine Negative Negative Esterase, Urine Negative Negative RBC, Urine 0-2 0 - 2 /HPF WBC, Urine 3-5 (A) 0 - 2 /HPF Bacteria, Urine 0-25 0 - 25 /HPF REVIEW OF SYSTEMS: Unremarkable MENTAL STATUS EVALUATION: General Appearance: clean and appropriately dressed Attitude/Behavior: cooperative, open and friendly, engaged Motor Behavior/Muscle Strength & Tone/Gait & Station: no abnormal movements Speech: normal, rate, tone and volume and goal directed Mood: Euthymic Affect: Euthymic Thought Process: tangential Thought Content/Perceptions: denies suicidal ideations, homicidal ideations, auditory hallucinations, visual hallucinations, delusions, impulsivity to act out or preoccupation with violence; Patient does not appear to be internally preoccupied. No evidence of illusions, depersonalization, derealization, or dissociation. Attention span/concentration as evidenced by: ability to sustain attention to examiner - intact andspelling WORLD backwards - intact Orientation: Oriented to person, place, time, and situation Abstract Reasoning: not tested Recent memory as evidenced by recall of recent circumstances: intact Remote memory as evidenced by recall of remote life events: intact Language as evidenced by ability to repeat phrase and name object: intact Estimated Intelligence & Fund of Knowledge: Normal Insight: fair Judgement: fair Impulse Control: fair [place] Suicide Severity Rating Scale Results 11/06/2023 15:18 [place] SUICIDE SEVERITY RATING SCALE (C-SSRS) Have you wished you were or wished you could go to sleep and not wake up? (In the Past Month or Since Last Visit) No Have you had any actual thoughts of killing yourself? (In the Past Month or Since Last Visit) No Have you been thinking about how you might do this? (In the Past Month or Since Last Visit) No Have you had thoughts and had some intention of acting on them? (In the Past Month or Since Last Visit) No Have you started to work out or worked out the details of how to kill yourself? Do you intend to carry out this plan? (In the Past Month or Since Last Visit) No Have you ever done anything, started to do anything, or prepared to do anything to end your life? (Lifetime) No Was this within the past 3 months? No Level of Risk No Risk Identified Risk Factors: history of depression, anxiety, age and physical illness/chronic pain Protective Factors: access to appropriate services, history of being able to cope with stressors without engaging in self-harm, identifies appropriate solutions to current problems, social support, family, supervision and or monitoring available, identifies reasons for living, has future plans and h opeful attitude and or beliefs Based on these risk and protective factors, this patient's safety risk is assessed to be minimal atthis time. TREATMENT PROGRESS/UPDATE, ASSESSMENT, FORMULATION, AND PLAN: Kathy Mccoy is a 76 year old female presenting with well managed symptoms of depression and anxiety. She is presenting with euthymic mood today. She denies any thoughts of wanting to harm herself of anyone else. Kathy is to contact provider if Ativan use increases.Kathy was instructed she may take half a tablet if full tablet causes her to feel too sedated. She has experienced stabilization of symptoms with consistent adherence to medication plan. 03/25/22: Kathy attended today's appt independently. Her daughter did provide transportation, but she did not attend the appt with Kathy. Kathy's Depakote dose was decreased from 1000 mg QHS to 750 mg QHS due to elevated Valproic acid level on 02/04/22. Repeat Valproic Acid level drawn on 03/23/22was 74. Kathy's symptoms are well controlled and she is tolerating medication well. No changes to be made to medications today. 05/25/22: Pt is doing well. Her moods have been stable and anxiety is well managed. She is using Ativan only occasionally, 2-3 times per month. No changes in treatment plan. 07/13/22: Pt is doing well. Her moods have been stable and anxiety is well managed. She is using Ativan only occasionally, 5 times over past two months. No changes in treatment plan. 09/07/22: Pt is doing well. States she has been taking medications as prescribed. Has been getting injection in her knees that has helped with pain management - has been more active with pain management. Does report that she is checking that everything is turned off. She does not feel the checking behavior is disruptive to her. Ativan is used very infrequently - mostly when going for long car rides due to anxiety. Has been using coping strategies to stay organized. Relationship with daughters has been good. 12/02/22: Pt relates she was out of Prozac for approx 5 days last week, restarting dose on Monday of this week. She did use PRN of ativan when she didn't have Prozac. She did not initially recognizeany change in behavior or mood in the absence of Prozac, but after discussion, she admits she mighthave been more anxious and irritable without the medication. Pt feels her moods have been stable overall. Sleep is adequate. Denies racing thoughts. She had 29 of November at her apartment and enjoyed herself. She admits to being in conflict with her daughter recently and feeling easily frustrated with her. We discussed positive communication with her daughters. Plan is to continue current medications as prescribed. 03/08/23: pt states she is having a hard time with her daughter being her aid. Pt feels disrespected by her daughter at times. Pt feels her daughters don't let her make decisions and she feels forcedto do what they want to do. Pt states she feels unimportant to them. Suggested pt contact the management agency for her daughter's employment with her as aid. Pt states she doesn't want her daughter t o lose hours with her. Pt states she is not that upset with her daughter, but yesterday she was feeling frustrated. Discussed other possible community options, such as [employer]. Pt is unaware of this program. Referral for population health placed to discuss available community services pt could participate. Continues to be active in the community, she does have good times with her daughters, until just recently. Pt states she is taking her medications daily - her children have been reminding her to take medications. Has been waking one time to go to the bathroom; sleeping approx 6-8 hrs/night Appetite is good. Pt used Ativan one time since last appt when in high stress situation. Pt presents as tangential and somewhat hyper-verbal during appt. She was easily redirected back to topic. Plan is to continue medications as prescribed. 07/26/23: Pt had forgotten about the appt. She was offered to reschedule appt; she requested appt becompleted by telephone today versus rescheduling. Pt states she is staying active and social. She and her daughters are participating in book club and working on self improvement - currently working of [employer]'s hierarchy of needs. Pt enjoys these activities. Has new CPAP machine; going to sleep before 11 pm and waking at 730 AM with alarm. Sleeping throughthe night. Appetite is stable Anxiety has been a lot better. Pt is paying attention to details better. Not as forgetful. Is using Ativan a couple times per week. This is an increase in use since last appt. Pt states going out and being more social has increased her anxiety level. Encouraged her to use positive coping skills prior to using ativan PRN. Pt agreed. Plan is to continue medications as prescribed. 09/18/23: Patient presented as frustrated during appointment today. She was irritable in mood. She had complaints related to role and action of service providers and her daughter. Patient verbalized frustration with not being able to find a therapist, but had difficulty identifying goals for therapy. After discussion patient did identify goals of improved communication and coping skills. She reports difficulty with sleep, only sleeping approximately 5 hours per night. She blames this on a new CPAP machine, and waking in the middle of the night to use the bathroom with the inability to return to sleep. She does note occasionally taking a nap through the day. Patient states appetite is variable. Provides the same answer for her concentration level. Denies increase level of anxiety. Patient is noted to be hyperverbal and tangential during appointment today. States she has been taking medication as prescribed. Patient has not had valproic acid level drawn for past 12 months; level will be ordered for evaluation of Depakote dosing. Plan is to continue medications as prescribed. 11/06/23: Pt described her surprise birthday alliance party given to her by her daughter and friends. Patientfelt very special that her daughters would think of her in this way. Patient states sleep has improved. Pt is able to get to sleep by 11 PM and sometimes will be awake around 8 AM, getting awake 1-2 times to use the bathroom and is able to return to sleep. Not settingalarm to wake herself as often - only when she has something that might cause incontinence. Is using CPAP every night. Pt is getting along with her daughters better. She has not been feeling irritable or feeling frustrated. Patient stated she has missed contact from Myra Werner for care coordination and plans to contact her tomorrow to discuss available community resources. Appetite is stable. Anxiety is well managed. No need for Ativan in several weeks. Pt reports taking medication as prescribed. Discussed need for valproic acid level when she has labs drawn in November. Pt agreed. Pt states she continues with gabapentin for pain management, but feels increased dose at nighttime would be helpful. Encouraged her to discuss this with her PCP. Plan is to continue medications as prescribed. 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 Prescription for 10 tablets/month will continue. Kathy was instructed she may take half a tablet if full tablet causes her to feel too sedated. gabapentin for pain management by medical provider. Discussed common side effects of benzodiazepines, including but not limited to sedation, dizziness,tiredness, addiction potential, habituation and tolerance, and cautioned about not driving or operating machinery, increase risk of falls, possible increased dementia risk, and other common side effects. Patient verbalized understanding of the information provided. Patient was assessed for potential risk of misuse, abuse, and addiction based on family and social history obtained by the prescribing provider. At this time, benefits of benzodiazepine treatment outweigh risk potential. I have reviewed the patient's controlled substance dispensing history in the Prescription Drug Monitoring Program in compliance with the [place] regulations before prescribing a controlled substance. Laboratory/Diagnostics: Valproic acid level Community support/Counseling: Continue to offer psychotherapy utilizing Supportive listening as adjunct to evaluation, managementand prescription of psychiatric medications. Continue with population health Referral placed for individual therapy to work on positive communication and coping skills related to chronic mental illness and relationship with support PCP/medical: Continue to follow up with primary care provider and/or medical specialists as scheduled/appropriate. Return Appointment: Kathy Mccoy is to return in 7 weeks. Sooner PRN. This treatment plan was reviewed and discussed with the patient. She and/or family had the opportunity to ask questions and agreed with the treatment plan and course of care. Crisis and Treatment Planning: The crisis plan was completed/reviewed and updated as appropriate with the patient. Kathy Mccoy participated in developing a crisis plan should he/she experience worsening of symptoms before next follow-up appointment, including being aware of what resources to use according to the urgency and severity of symptoms. Kathy Mccoy was able to verbalize understanding of the steps necessary to obtain help between appointments should be needed, from requesting a phone call, to requesting an appointment sooner, including reaching clinic after hours, or accessing emergency mental health and medical services, either at a local emergency department or by activating mobile crisis teams and EMS. Psychoeducation was provided regarding patient's diagnoses and potential treatment modalities, including psychotherapeutic and psychopharmacologic options for treatment. Risks, benefits, alternativesand side effects of medication/s were explained, and the patient verbalized understanding of the ris ks and benefits of using medication as prescribed. The benefits of treatment outweigh the risks. Patient cautioned not to drive, operate heavy machinery, or participate in other tasks requiring full cognitive alertness until they know how new medications will affect them. Pt encouraged to keep all medications out of the reach of children. The patient participated in the development of the treatment plan, verbalized understanding, voices no concerns and is agreeable to the treatment plan. Patient is making an informed medical decision to follow the recommendations outlined in this note. Directed pt to call with any questions or concerns, worsening symptoms and/or ask for earlier appointment. Risk Assessment: Risk assessment was performed for Kathy Mccoy. This patient is being treatedfor mental health conditions as characterized above; at the time of this visit, there was no indication that this patient was either a risk to self, others, or gravely disabled by symptoms of a mental illness. At the time of this evaluation, there were enough protective factors in place and it was deemed safe to continue with treatment on a outpatient basis with return to clinic in the timeframe described above. Health Maintenance: Kathy Mccoy was encouraged to keep up to date on regular health maintenance per primary care provider recommendations. Kathy Mccoy was encouraged to keep active in productive hobbies and exercise, as this can help manage emotions, improve sleep, wellbeing and overallhealth. Pt was cautioned to not drink alcohol or use illicit drugs as these can make symptoms worseby blocking the effects of prescribed medications. Advised to avoid tobacco and products containingnicotine and to limit caffeine use. Nicotine and caffeine are stimulants that can cause difficulty with symptom management and pose increased health risks. Please note >17 minutes of counseling time over and above medication management was spent with patient discussing self care and providing supportive therapy, including Supportive listening Paty Haynes, MSN, CART DRIVER, PMHNP-BC [facility] Current Outpatient Medications Medication Sig Dispense Refill PROCARE ADULT BRIEFS X-LARGE MISC use as needed for urinary incontinence 2 Box 11 LOPERAMIDE HCL 2 MG PO CAPS 1 CAPSULE TWICE DAILY NEEDED Fexofenadine HCl 180 MG Oral Tablet Take 1 Tablet by mouth daily as needed for Allergies. Biotin 300 MCG TABS Take 300 mcg by mouth daily. Cholecalciferol (VITAMIN D3) 1000 UNITS CAPS Take 1 Capsule by mouth in the morning. Incontinence Supply Disposable (BAN SKIN-CARING WASHCLOTHS) MISC Use as needed for incontinence. Dispense 2 tubs monthly DX R32 2 Each 5 oxygen GAS Use 2 L as directed every night at bedtime. With CPAP Oxybutynin Chloride ER 15 MG Oral Tablet Extended Release 24 Hour (DITROPAN XL) Take 1 Tablet by mouth in the morning. Acetaminophen 500 MG Oral Tablet (TYLENOL) Take 2 Tablets by mouth every 8 hours as needed. 100 Tab0 Saline Nasal [place] 0.65 % Nasal Solution ([place] Nasal [place]) Two sprays in each nostril as needed for nasal dryness or congestion 50 mL 2 Hydrocortisone (Perianal) 2.5 % External Cream Administer into the rectum 2 times a day. For up to 1 week 30 g 0 Probiotic Acidophilus BioBeads Oral Capsule Take 1 Capsule by mouth in the morning and 1 Capsule atnoon and 1 Capsule in the evening. Take with meals. Diclofenac Sodium 1 % External Gel (Voltaren) Apply topically to affected area 4 times a day. Applyto knee. 150 g 0 Gabapentin 300 MG Oral Capsule (Neurontin) Take 1 Capsule by mouth in the morning and 1 Capsule at noon and 1 Capsule before bedtime. 270 Capsule 3 COVID-19 mRNA Vaccine 12 years and above Pfizer 30 MCG/0.3 ML IM SUSP Inject into a large muscle. 0.3 mL 0 Premarin 0.625 MG/GM Vaginal Cream (Estrogens Conjugated) Apply topically to affected area daily. As directed. (Patient not taking: Reported on 10/26/2023) 30 g 4 Atorvastatin Calcium 20 MG Oral Tablet (Lipitor) TAKE 1 TABLET BY MOUTH IN THE MORNING 90 Tablet 3 FLUoxetine HCl 20 MG Oral Capsule (PROzac) Take 1 Capsule by mouth at bedtime. 30 Capsule 2 Divalproex Sodium ER 250 MG Oral Tablet Extended Release 24 Hour (Depakote ER) Take 3 Tablets by mouth every night at bedtime. 90 Tablet 2 Fluticasone Propionate 50 MCG/ACT Nasal Suspension (Flonase) Administer 2 Sprays into each nostril in the morning. 16 g 3 Pantoprazole Sodium 40 MG Oral Tablet Delayed Release (Protonix) TAKE 1 TABLET BY MOUTH EVERY MORNING, DO NOT CRUSH 100 Tablet 3 LORazepam 0.5 MG Oral Tablet (Ativan) Take 1 Tablet by mouth daily as needed for Anxiety. 10 Tablet0 Ondansetron HCl 4 MG Oral Tablet (Zofran) Take 1 Tablet by mouth every 12 hours as needed for Nausea. 30 Tablet 0 CPAP every night at bedtime. No current facility-administered medications for this visit. documented in this encounter Plan of Treatment Upcoming Encounters Date Type Department Care Team (Late st Contact Info) Description 11/08/2023 11:30 AM EDT [facility] [place] [address] Nurse Antonio Urology Sinan [address] [place] [address] 12/01/2023 10:00 AM EDT Laboratory Laboratory [facility] [address] [place] [address] [address] [facility] 200 [facility] [place] [address] 12/08/2023 2:30 PM EDT Office Visit Hematology/Oncology [facility] [place] [address] [place] [address] Marietta Salazar CRNP 400 [facility] [place] [id number] 12/11/2023 10:45 AM EDT Office Visit Urology, [facility] 132 [facility] [place] [address] Mendel Macedo MD [address] [place] [address] [place] [address] 12/13/2023 1:30 PM EDT Cardiac Studies Cardiac Studies, [facility] 132 [facility] [address] 12/21/2023 2:20 PM EDT Office Visit General Internal Medicine [facility] [address] [place] [address] [address] Jose M Seth MD [address] [facility] [place] [address] 12/25/2023 1:30 PM EDT Office Visit Psychiatry, [facility] [address] [place] [address] Paty Haynes CRNP [address] [facility] [place] [address] 01/25/2024 11:00 AM EDT [facility]medicine [facility] [address] [place] [address] Tonya Jovel, MS 132 [facility] [place] [address] 06/04/2024 3:40 PM EST Telemedicine [facility] [address] [place] [phone] Charmaine Mckeon, DO [address] [place] [address] 10/14/2024 2:00 PM EDT Nurse Only Ancillary Scenery [place] [address] [place] [address] Shilpa, Nurse Annual Wellness Scenery [address] [place] [address] Health Maintenance Due Date Last Done Comments COVID-19 Vaccine ( season) 2023 04/11/2023, 03/22/2022, 02/18/2021, Additional history exists HbA1c 07/13/2023 07/13/2022, 08/28, 02/15/2021, Additional history exists DXA Scan 09/20/2024 09/20/2021, 08/28, 10/23/2013, Additional history exists Depression Monitoring 10/08/2024 10/09/2023 DTaP,Tdap,and Td Vaccines (3 - Td or Tdap) 03/07/2032 03/07/2022, 08/12/2010 Pneumococcal Vaccine: 65+ Years Completed 06/30/2014, 08/12/2010 RETIRED - COLONOSCOPY-EVERY 5 YRS AGES 18-100 Discontinued 04/13/2016, 09/08/2010 Zoster Vaccines Completed 06/18/2019, 02/13/2018 Diabetic Foot Exam Discontinued 04/15/2020 Albumin/Creatinine Ratio Discontinued 023, 07/17/2020, 03/07/2014 Influenza Vaccine (FLU shot) Completed 02/07/2023, 02/08/2022, 02/08/2021, Additional history exists Diabetic Eye Exam Discontinued 05/01/2023, , 04/28/2022, Additional history exists GARDASIL-HPV IMMUNIZATION SERIES Aged Out No longer eligible based on patient's age to complete this topic Hepatitis B Aged Out No longer eligi ble based on patient's age to complete this topic MENINGOCOCCAL (MENACTRA/MENVEO) Aged Out No longer eligible based on patient's age to complete this topic documented as of this encounter Medical Devices Not on filedocumented as of this encounter Visit Diagnoses Diagnosis 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 Care Teams Chief Operator Relationship Specialty Start Date End Date Jose M Seth MD 200 [place] [address] PCP - General Internal Medicine 11/21/11 documented as of this encounter
--- OUTSIDE RECORDS SUMMARY | 2023-12-07 12:13 | External Medical Summary | Summary of Care ---
Author Name Unknown Organization [facility] Address [address] [place] [address] Phone [phone] Care Team Providers Care Jackaroo Name Role Phone Jose M Seth MD Primary Care Provider + Reason for Visit * Reason Onset Date Comments Appointment 10/30/2023 Nutrition and we ight management Encounter Details Date Type Department Care Team (Late st Contact Info) Description 10/30/2023 Telephone Nutrition & Weight Management, [facility] [place] [address] Maria E Chavez RDN 132 [facility] [address] Appointment (Nutrition and weight manageme... Allergies Active Allergy Reactions Criticality Noted Date [...] as of this encounter (statuses as of 10/30/2023) Medications Medication Sig Dispensed Refills Start Date [...] needed. 100 Tab 04/15/2020 Active Saline Nasal [place] 0.65 % Nasal Solution ([place] Nasal [place]) Two sprays in each nostril as needed [...] as of this encounter (statuses as of 10/30/2023) Active Problems Problem Noted Date Diagnosed Date [...] PSG -- AHI 10.7, <89% 128 mins [facility] Returned machine Jun 2013 Nocturnal hypoxemia 06/18/2012 Overview: 2 LPM [facility] 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 documented as of this encounter (statuses as of 10/30/2023) Resolved Problems Problem Noted Date Diagnosed Date [...] Jose M Seth MD Pharmacy: [facility] 08/09/2013 12/16/2015 Dementia 07/19/2013 2017 Encounter for [...] as of this encounter (statuses as of 10/30/2023) Immunizations Name Administration Dates Next Due COVID-19 mRNA, LNP-s, No Pre serve, 2-Dose Series ([employer]) 02/18/2021,08/10/2020,07/06/2020 COVID-19, MRNA-LNP, 23-24, P F, 30 MCG/0.3 mL, 12 YRS AND ABOVE, IM ([employer]) 04/11/2023 Covid-19, Mrna, Lnp-s, Pf, [...] encounter Miscellaneous Notes * Telephone Encounter - Valentina Shea OSA - 10/30/2023 11:35 AM EDT Called pt to schedule next appt with Maria E chavez via video. Please schedule when pt returns call. Return in about 4 months (around 02/26/2024) for Video to Home 4 m ret diet advice. documented in this encounter Plan of Treatment Upcoming Encounters Date Type Department Care Team (Late st Contact Info) Description 10/31/2023 1:00 PM EDT Nurse Only Urology, Sanam [facility]varez [facility] [place] [address] AlvarezNurse lily Urology [facility] [address] [place] [address] 11/06/2023 3:00 PM EDT Office Visit Psychiatry, Brian Massey [address] [address] [address] Paty Haynes CRNP [address] [address] 12/01/2023 10:00 AM EDT Laboratory Laboratory [place] A[facility]n C[facility]all[facility] [address] [phone] Rosanna Masseyry 200 [facility] [place] [address] 12/08/2023 2:30 PM EDT Office Visit Hematology/Oncology [facility] 200 [facility] [place] [phone] Marietta Salazar CRNP 400 [facility] [place] [id number] 12/11/2023 10:45 AM EDT Office Visit Urology, [facility] 132 [place] [address] Mendel Macedo MD [address] [address] [place] [address] 12/13/2023 1:30 PM EDT Cardiac Studies Cardiac Studies, [facility] 132 [place] [address] 12/21/2023 2:40 PM EDT Office Visit General Internal Medicine [facility] 200 [facility] [place] [address] Jose M Seth MD 200 [facility] [place] [address] 01/25/2024 11:00 AM EDT Telemedicine Genetics HemOnc, [address] [id number] Tonya Jovel, MS 132 [facility] [place] [address] 06/04/2024 3:40 PM EST Telemedicine Sleep Disorders Ctr [facility] 132 [facility] [place] [phone] Charmaine Mckeon DO 132 [facility] [address] 10/14/2024 2:00 PM EDT Nurse Only Ancillary [facility] State Ailyn Massey [address] [place] [address] Shilpa Nurse Annual Wellness [facility] 200 [facility] [place] [address] Health Maintenance Due Date Last Done Comments COVID-19 Vaccine ( season) 2023 04/11/2023, 03/22/2022, 02/18/2021, Additional history exists HbA1c 07/13/2023 07/13/2022, 08/28, 02/15/2021, Additional history exists DXA Scan 09/20/2024 09/20/2021, 08/28, 10/23/2013, Additional history exists DTaP,Tdap,and Td Vaccines (3 - Td or Tdap) 03/07/2032 03/07/2022, 08/12/2010 Pneumococcal Vaccine: 65+ Years Completed 06/30/2014, 08/12/2010 RETIRED - COLONOSCOPY-EVERY 5 YRS AGES 18-100 Discontinued 04/13/2016, 09/08/2010 Zoster Vaccines Completed 06/18/2019, 02/13/2018 Diabetic Foot Exam Discontinued 04/15/2020 Diabetic Eye Exam Discontinued 05/03/2022, , 02/17/2021, Additional history exists Albumin/Creatinine Ratio Discontinued 023, 07/17/2020, 03/07/2014 Influenza Vaccine (FLU shot) Completed 02/07/2023, 02/08/2022, 02/08/2021, Additional history exists GARDASIL-HPV IMMUNIZATION SERIES Aged [...] and were consensually agreed upon. Care Teams Jackaroo Relationship Specialty Start Date End Date Jose M Seth MD [address] [place] [address] PCP - General Internal Medicine 11/21/11 documented as of this encounter
--- OUTSIDE RECORDS SUMMARY | 2023-12-07 12:13 | External Medical Summary | Summary of Care ---
Author Name Unknown Organization [facility] Address [address] [place] [address] Phone [phone] Care Team Providers Care Foot Caster Name Role Phone Jose M Seth MD Primary Care Provider + Reason for Visit * Reason Onset Date Comments Appointment 09/07/2023 Encounter Details Date Type Department Care Team (Late st Contact Info) Description 09/07/2023 Telephone Urology, [facility] [address] [place] [address] Services, Scheduling [address] [place] [address] Appointment Allergies Active Allergy Reactions Criticality Noted Date [...] as of this encounter (statuses as of 11/11/2023) Medications Medication Sig Dispensed Refills Start Date [...] needed. 100 Tab 04/15/2020 Active Saline Nasal [place] 0.65 % Nasal Solution ([place] Nasal [place]) Two sprays in each nostril as needed [...] as of this encounter (statuses as of 11/11/2023) Active Problems Problem Noted Date Diagnosed Date [...] PSG -- AHI 10.7, <89% 128 mins [facility] Returned machine Jun 2013 Nocturnal hypoxemia 06/18/2012 Overview: 2 LPM [facility] 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 documented as of this encounter (statuses as of 11/11/2023) Resolved Problems Problem Noted Date Diagnosed Date [...] of 37.0 to 37.9 in adult 06/25/2020 Breast carcinoma, female, left 04/01/2020 06/21/2023 Depressive [...] Jose M Seth MD Pharmacy: [facility] 08/09/2013 12/16/2015 Dementia 07/19/2013 2017 [...] as of this encounter (statuses as of 11/11/2023) Immunizations Name Administration Dates Next Due COVID-19 mRNA, LNP-s, No Pre serve, 2-Dose Series ([employer]) 02/18/2021,08/10/2020,07/06/2020 COVID-19, MRNA-LNP, 23-24, P F, 30 MCG/0.3 mL, 12 YRS AND ABOVE, IM ([employer]) 04/11/2023 Covid-19, Mrna, Lnp-s, Pf, B ivalent, [...] encounter Miscellaneous Notes * Telephone Encounter - Haleigh Brito OSA - 09/07/2023 10:16 AM EDT Pt asking to talk to moises or Nancie to schedule follow up PTNS appointment. Pt thought she has more scheduled but she does not. Please advise documented in this encounter Plan of Treatment Upcoming Encounters Date Type Department Care Team (Late st Contact Info) Description 12/01/2023 10:00 AM EDT Laboratory Laboratory Brian Massey [place] [address] [place] [phone] Rosanna Massey [facility] 200 [facility] [place] [address] 12/08/2023 2:30 PM EDT Office Visit Hematology/Oncology [facility] [place] 200 [facility] [place] [phone] Marietta Salazar CRNP 400 [facility] [place] [id number] 12/11/2023 10:45 AM EDT Office Visit Urology, [facility] 132 [place] [address] Mendel Macedo MD [address] [address] [place] [address] 12/13/2023 1:30 PM EDT Cardiac Studies Cardiac Studies, [facility] 132 [place] [address] 12/21/2023 2:20 PM EDT Office Visit General Internal Medicine [facility] 200 [facility] [place] [address] Jose M Seth MD 200 [facility] [place] [address] 12/25/2023 1:30 PM EDT Office Visit Psychiatry, [facility] 200 [facility] [place] [address] Paty Haynes CRNP 200 [facility] [place], [place] [address] 01/25/2024 11:00 AM EDT Telemedicine Genetics HemOn, [facility] 100 [place] [address] Tonya Jovel, MS 132 [facility] [place] [address] 06/04/2024 3:40 PM EST Telemedicine Sleep Disorders Ctr Sinan Alvarez [place] [address] [place] [address] Charmaine Mckeon, [address] [place] [address] 10/14/2024 2:00 PM EDT Nurse Only Ancillary Scenery Shilpa [place] [address] [place] [address] Shilpa, Nurse Annual Wellness Scenery [address] [facility] [place] [address] Health Maintenance Due Date Last Done Comments [...] and were consensually agreed upon. Care Teams Foot Caster Relationship Specialty Start Date End Date Jose M Seth MD 200 [place] [address] PCP - General Internal Medicine 11/21/11 documented as of this encounter
--- OUTSIDE RECORDS SUMMARY | 2023-12-07 12:13 | External Medical Summary | Summary of Care ---
Author Name Unknown Organization [facility] Address [address] [place] [address] Phone [phone] Care Team Providers Care Gang Saw Operator Name Role Phone Jose M Seth MD Primary Care Provider + Encounter Details Date Type Department Care Team (Late st Contact Info) Description 11/01/2023 11:15 AM EDT Nurse Only Urology, Sanam Rioss [place] [address] [place] [address] Nurse Antonio Urology [facility] [address] [place] [address] Allergies Active Allergy Reactions Criticality Noted Date [...] as of this encounter (statuses as of 11/01/2023) Medications Medication Sig Dispensed Refills Start Date [...] needed. 100 Tab 04/15/2020 Active Saline Nasal [place] 0.65 % Nasal Solution ([place] Nasal [place]) Two sprays in each nostril as needed [...] as of this encounter (statuses as of 11/01/2023) Active Problems Problem Noted Date Diagnosed Date [...] AHI 10.7, <89% 128 mins [facility] Returned machine Jun 2013 Nocturnal hypoxemia 06/18/2012 Overview: 2 LPM [facility] 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 documented as of this encounter (statuses as of 11/01/2023) Resolved Problems Problem Noted Date Diagnosed Date [...] PCP: Jose M Seth MD Pharmacy: [facility] 08/09/2013 12/16/2015 Dementia 07/19/2013 2017 Encounter [...] as of this encounter (statuses as of 11/01/2023) Immunizations Name Administration Dates Next Due COVID-19 mRNA, LNP-s, No Pre serve, 2-Dose Series ([employer]) 02/18/2021,08/10/2020,07/06/2020 COVID-19, MRNA-LNP, 23-24, P F, 30 MCG/0.3 mL, 12 YRS AND ABOVE, IM ([employer]) 04/11/2023 Covid-19, Mrna, Lnp-s, Pf, [...] on file documented as of this encounter Nursing Notes * Barbara Yeung LPN - 11/01/2023 12:12 PM EDT Patient in office for PTNS treatment #8. Left ankle used. Tolerated 30 min treatment on level 14. Patient reports symptoms are improving. documented in this encounter Plan of Treatment Upcoming Encounters Date Type Department Care Team (Late st Contact Info) Description 11/06/2023 3:00 PM EDT Office Visit Psychiatry, Brian Massey [address] [address] Paty Haynes CRNP [address] [place] [address] 12/01/2023 10:00 AM EDT Laboratory Laboratory Brian Massey [place] [address] [phone] Shilpa Lab [facility] [address] [facility] [place] [address] 12/08/2023 2:30 PM EDT Office Visit Hematology/Oncology Brian Massey [place] [address] [phone] Marietta Salazar CRNP [address] [place] [address] 12/11/2023 10:45 AM EDT Office Visit Urology, [facility] 132 [facility] [place] [address] Mendel Macedo MD 27 [facility] [address] [place] [address] 12/13/2023 1:30 PM EDT Cardiac Studies Cardiac Studies, [facility] 132 [facility] [place] [address] 12/21/2023 2:40 PM EDT Office Visit General Internal Medicine [facility] 200 [facility] [place] [address] Jose M Seth MD 200 [facility] [place] [address] 01/25/2024 11:00 AM EDT Telemedicine Genetics [facility], [address] [address] Tonya Jovel, MS 132 [facility] [place] [address] 06/04/2024 3:40 PM EST Telemedicine Sleep Disorders Ctr [facility] 132 [facility] [place] [phone] Charmaine Mckeon DO 132 [facility] [place] [address] 10/14/2024 2:00 PM EDT Nurse Only Ancillary [facility] 200 [facility] [place] [address] Shilpa, Nurse Annual Wellness [address] [facility] [place] [address] Health Maintenance Due Date Last Done Comments [...] as of this encounter Visit Diagnoses Diagnosis Urge incontinence- Primary documented in this encounter Advance Directives * Full Code (Latest Code Status on File) Date Activated Date Inactivated Comments 09/24/2012 8:15 PM 10/02/2012 7:35 PM This order re flects the patients wishes and were consensually agreed upon. Care Teams Gang Saw Operator Relationship Specialty Start Date End Date Jose M Seth MD 200 [facility] [place] [address] PCP - General Internal Medicine 11/21/11 documented as of this encounter
--- OUTSIDE RECORDS SUMMARY | 2023-12-07 12:13 | External Medical Summary | Summary of Care ---
Author Name Unknown Organization [facility] Address [address] [place] [address] Phone [phone] Care Team Providers Care Weasand Trimmer Name Role Phone Jose M Seth MD Primary Care Provider + Reason for Visit * Reason Onset Date Comments Appointment 10/31/2023 Encounter Details Date Type Department Care Team (Late st Contact Info) Description 10/31/2023 Telephone Urology, [facility] [address] [place] [address] Nurse Appointment Allergies Active Allergy Reactions Criticality Noted [...] as of this encounter (statuses as of 10/31/2023) Medications Medication Sig Dispensed Refills Start Date End Date Status [facility] ADULT BRIEFS X-LARGE MISCIndications:Unsp ecified urinary incontinence [...] needed. 100 Tab 04/15/2020 Active Saline Nasal [place] 0.65 % Nasal Solution ([place] Nasal Equality) Two sprays in each nostril as needed [...] as of this encounter (statuses as of 10/31/2023) Active Problems Problem Noted Date Diagnosed Date [...] PSG -- AHI 10.7, <89% 128 mins [facility] Returned machine Jun 2013 Nocturnal hypoxemia 06/18/2012 Overview: 2 LPM [facility] 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 documented as of this encounter (statuses as of 10/31/2023) Resolved Problems Problem Noted Date Diagnosed Date [...] Jose M Seth MD Pharmacy: Maricruz Foster [facility] 08/09/2013 12/16/2015 Dementia 07/19/2013 2017 [...] as of this encounter (statuses as of 10/31/2023) Immunizations Name Administration Dates Next Due COVID-19 mRNA, LNP-s, No Pre serve, 2-Dose Series ([employer]) 02/18/2021,08/10/2020,07/06/2020 COVID-19, MRNA-LNP, 23-24, P F, 30 [...] encounter Miscellaneous Notes * Telephone Encounter - Michael Meza OSA - 10/31/2023 1:28 PM EDT I spoke to pt and rescheduled for tomorrow (October 31) at 11:15am * Telephone Encounter - Madiha Neri OSA - 10/31/2023 12:20 PM EDT Please call pt to resched 10/30 appt with the Nurse. Thank you Madiha documented in this encounter Plan of Treatment Upcoming Encounters Date Type Department Care Team (Late st Contact Info) Description 11/01/2023 11:15 AM EDT Nurse Only Urology, [facility] [place] [facility] [place] [address] AlvarezNurse lily Urology [facility] [address] [place] [address] 11/06/2023 3:00 PM EDT Office Visit Psychiatry, Brian Massey [address] [address] Paty Haynes CRNP [address] [address] 12/01/2023 10:00 AM EDT Laboratory Laboratory State Ailyn Cevallos [address] [phone] Rosanna Massey [facility] 200 [facility] [place] [address] 12/08/2023 2:30 PM EDT Office Visit Hematology/Oncology [facility] 200 [facility] [place] [phone] Marietta Salazar CRNP 400 [facility] [place] [id number] 12/11/2023 10:45 AM EDT Office Visit Urology, [facility] 132 [facility] [address] Mendel Macedo MD [address] [address] [place] [address] 12/13/2023 1:30 PM EDT Cardiac Studies Cardiac Studies, [facility] 132 [facility] [address] 12/21/2023 2:40 PM EDT Office Visit General Internal Medicine [facility] 200 [facility] [place] [address] Jose M Seth MD 200 [facility] [place] [address] 01/25/2024 11:00 AM EDT Telemedicine Genetics HemOn, [address] [address] Tonya Jovel, MS [address] [place] [address] 06/04/2024 3:40 PM EST Telemedicine Sleep Disorders Ctr [facility] [address] [facility] [place] [address] Charmaine Mckeon DO [address] [place] [address] 10/14/2024 2:00 PM EDT Nurse Only Ancillary Scenery State Ailyn Massey [address] [place] [address] Shilpa Nurse Annual Wellness Scenery [address] [place] [address] Health Maintenance Due Date Last Done Comments [...] and were consensually agreed upon. Care Teams Weasand Trimmer Relationship Specialty Start Date End Date Jose M Seth MD [address] [place] [address], [place] [id number] PCP - General Internal Medicine 11/21/11 documented as of this encounter
--- OUTSIDE RECORDS SUMMARY | 2023-12-07 12:13 | External Medical Summary | Summary of Care ---
Author Name Unknown Organization [facility] Address [address] [place] [address] Phone [phone] Care Team Providers Care Wood Lather Name Role Phone Jose M Seth MD Primary Care Provider + Reason for Visit * Reason Comments Nurse Documentation Encounter Details Date Type Department Care Team (Late st Contact Info) Description 11/08/2023 11:30 AM EDT Nurse Only Urology, Sanam Rioss [place] [address] [place] [address] Nurse Antonio Urology [facility] [address] [place] [address] Nurse Documentation Allergies Active Allergy Reactions Criticality Noted Date [...] as of this encounter (statuses as of 11/08/2023) Medications Medication Sig Dispensed Refills Start Date [...] needed. 100 Tab 04/15/2020 Active Saline Nasal [place] 0.65 % Nasal Solution ([place] Nasal [place]) Two sprays in each nostril as needed [...] as of this encounter (statuses as of 11/08/2023) Active Problems Problem Noted Date Diagnosed Date [...] PSG -- AHI 10.7, <89% 128 mins [facility] Returned machine Jun 2013 Nocturnal hypoxemia 06/18/2012 Overview: 2 LPM [facility] 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 documented as of this encounter (statuses as of 11/08/2023) Resolved Problems Problem Noted Date Diagnosed Date [...] M Seth MD Pharmacy: Maricruz Foster [facility] 08/09/2013 12/16/2015 Dementia 07/19/2013 [...] as of this encounter (statuses as of 11/08/2023) Immunizations Name Administration Dates Next Due COVID-19 mRNA, LNP-s, No Pre serve, 2-Dose Series ([employer]) 02/18/2021,08/10/2020,07/06/2020 COVID-19, MRNA-LNP, 23-24, P F, 30 MCG/0.3 mL, 12 YRS AND ABOVE, IM [facility] 04/11/2023 Covid-19, Mrna, Lnp-s, Pf, B ivalent, [...] Nursing Notes * Barbara Yeung LPN - 11/08/2023 1:18 PM EDT Patient in office for PTNS treatment #9. Left ankle used. Tolerated 30 min treatment on level 10. Patient reports symptoms are improving. documented in this encounter Plan of Treatment Upcoming Encounters Date Type Department Care Team (Late st Contact Info) Description 12/01/2023 10:00 AM EDT Laboratory Laboratory [facility] [address] [place] [address] [place] [facility] 200 [facility] [place] [address] 12/08/2023 2:30 PM EDT Office Visit Hematology/Oncology [facility] [address] [place] [address] Marietta Salazar CRNP 400 [facility] [place] [address] 12/11/2023 10:45 AM EDT Office Visit Urology, [facility] 132 [facility] [place] [address] Mendel Macedo MD [address] [address] [place] [address] 12/13/2023 1:30 PM EDT Cardiac Studies Cardiac Studies, [facility] 132 [facility] [place] [address] 12/21/2023 2:20 PM EDT Office Visit General Internal Medicine [facility] [place] 200 [facility] [place] [address] Jose M Seth MD 200 [facility] [place] [address] 12/25/2023 1:30 PM EDT Office Visit Psychiatry, [facility] 200 [facility] [place] [address] Paty Haynes CRNP 200 [facility] [place] [address] 01/25/2024 11:00 AM EDT Telemedicine Genetics HemOn, [address] [address] [place] [address] Tonya Jovel, MS 132 [facility] [place] [address] 06/04/2024 3:40 PM EST Telemedicine Sleep Disorders Ctr [facility] 132 [facility] [place] [address] Charmaine Mckeon DO 132 [facility] [place] [address] 10/14/2024 2:00 PM EDT Nurse Only Ancillary [facility] Shilpa [place] 200 [facility] [place] [address] Shilpa Nurse Annual Wellness [facility] [address] [address] Health Maintenance Due Date Last Done Comments [...] and were consensually agreed upon. Care Teams Wood Lather Relationship Specialty Start Date End Date Jose M Seth MD 200 [facility] [place], [place] [address] PCP - General Internal Medicine 11/21/11 documented as of this encounter
--- OUTSIDE RECORDS SUMMARY | 2023-12-07 12:13 | External Medical Summary | Summary of Care ---
Author Name Unknown Organization [facility] Address [address] [place] [address] Phone [phone] Care Team Providers Care District Plant Supervisor Name Role Phone Jose M Seth MD Primary Care Provider + Reason for Visit * Reason Comments eRx-Medication Refill Encounter Details Date Type Department Care Team (Late st Contact Info) Description 11/18/2023 Refill General Internal Medicine [facility] 200 [facility] [address] Jose M Seth MD 200 [place] [address] Chronic bilateral low back pain with bilateral sciatica; MGUS (monoclonal gammopathy of unknown significance); Peripheral polyneuropathy Allergies Active Allergy Reactions Criticality Noted Date [...] as of this encounter (statuses as of 11/20/2023) Medications Medication Sig Dispensed Refills Start Date End Date Status [facility] ADULT BRIEFS X-LARGE MISCIndications:Un specified urinary incontinence use as needed for urinary incontinence 2 Box 11 4 Active LOPERAMIDE HCL 2 MG PO CAPS 1 CAPSULE TWICE DAILY NEEDED 4 Active Fexofenadine HCl 180 MG Oral Tablet Take 1 Tablet by mouth daily as needed for Allergies. Active Biotin 300 MCG TABS Take 300 mcg by mouth daily. Active Cholecalciferol (VITAMIN D3) 1000 UNITS CAPS Take 1 Capsule by mouth in the morning. Active Incontinence Supply Disposable (BAN SKIN-CARING WASHCLOTHS) MISCIndications:In continence Use as needed for incontinence. Dispense 2 tubs monthly DX R32 2 Each 5 7 Active oxygen GAS Use 2 L as directed every night at bedtime. With CPAP 5 Active Oxybutynin Chloride ER 15 MG Oral Tablet Extended Release 24 Hour (DITROPAN XL) Take 1 Tablet by mouth in the morning. 0 Active Acetaminophen 500 MG Oral Tablet (TYLENOL) Take 2 Tablets by mouth every 8 hours as needed. 100 Tab 0 Active Saline Nasal [place] 0.65 % Nasal Solution ([place] Nasal [place]) Two sprays in each nostril as needed for nasal dryness or congestion 50 mL 2 1 Active Hydrocortisone (Perianal) 2.5 % External Cream Administer into the rectum 2 times a day. For up to 1 week 30 g 2 Active Probiotic Acidophilus BioBeads Oral Capsule Take 1 Capsule by mouth in the morning and 1 Capsule at noon and 1 Capsule in the evening. Take with meals. Active Diclofenac Sodium 1 % External Gel (Voltaren)Indicati ons:Primary osteoarthritis of left knee Apply topically to affected area 4 times a day. Apply to knee. 150 g 3 Active Premarin 0.625 MG/GM Vaginal Cream (Estrogens Conjugated) Apply topically to affected area daily. As directed. 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 30 Capsule 2 4 Active Divalproex Sodium ER 250 MG Oral Tablet Extended Release 24 Hour (Depakote ER)Indications:Moo d disorder in partial remission (HCC) Take 3 Tablets by mouth every night at bedtime. 90 Tablet 2 4 Active Fluticasone Propionate 50 MCG/ACT Nasal Suspension (Flonase)Indicatio ns:Seasonal allergic rhinitis, unspecified trigger Administer 2 Sprays into each nostril in the morning. 16 g 3 4 Active Pantoprazole Sodium 40 MG Oral Tablet Delayed Release (Protonix) TAKE 1 TABLET BY MOUTH EVERY MORNING, DO NOT CRUSH 100 Tablet 3 4 Active LORazepam 0.5 MG Oral Tablet (Ativan)Indication s:PETER (generalized anxiety disorder) Take 1 Tablet by mouth daily as needed for Anxiety. 10 Tablet 4 Active CPAP every night at bedtime. Active Gabapentin 300 MG Oral Capsule (Neurontin)Indicat ions:Chronic bilateral low back pain with bilateral sciatica,MGUS (monoclonal gammopathy of unknown significance),Katelin pheral polyneuropathy Take 1 Capsule by mouth in the morning and 1 Capsule at noon and 1 Capsule before bedtime. 270 Capsule 3 4 Active Ondansetron HCl 4 MG Oral Tablet (Zofran) Take 1 Tablet by mouth every 12 hours as needed for Nausea. 30 Tablet 4 Active Gabapentin 300 MG Oral Capsule (Neurontin)Indicat ions:Chronic bilateral low back pain with bilateral sciatica,MGUS (monoclonal gammopathy of unknown significance),Katelin pheral polyneuropathy Take 1 Capsule by mouth in the morning and 1 Capsule at noon and 1 Capsule before bedtime. 270 Capsule 3 3 11/20/19 24 Discontinued Ondansetron HCl 4 MG Oral Tablet (Zofran) Take 1 Tablet by mouth every 12 hours as needed for Nausea. 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 08/09/2013 12/16/2015 Dementia 07/19/2013 2017 [...] as of this encounter (statuses as of 11/20/2023) Immunizations Name Administration Dates Next Due COVID-19 mRNA, LNP-s, No Pre serve, 2-Dose Series (Expreem) 02/18/2021,08/10/2020,07/06/2020 COVID-19, MRNA-LNP, 23-24, P F, 30 MCG/0.3 mL, 12 YRS AND ABOVE, IM ([employer]Comirnaty) 04/11/2023 Covid-19, Mrna, Lnp-s, Pf, B ivalent, [...] Encounter - Jose M Seth MD - 11/20/2023 9:10 AM EDTSigned Prescriptions: Disp Refills Gabapentin 300 MG Oral Capsule (Neurontin) 270 Ca*3 Sig: Take 1 Capsule by mouth in the morning and 1 Capsule at noon and 1 Capsule before bedtime. Authorizing Provider: JOSE M SETH Ondansetron HCl 4 MG Oral Tablet (Zofran) 30 Tab*0 Sig: Take 1 Tablet by mouth every 12 hours as needed for Nausea. Authorizing Zo messer: JOSE M SETH * Telephone Encounter - Jennifer Saul [facility] - 11/20/2023 7:46 AM EDTPending Prescriptions: Disp Refills Gabapentin 300 MG Oral Capsule [Pharmacy M*270 Ca*3 Sig: Take 1 Capsule by mouth in the morning and 1 Capsule at noon and 1 Capsule before bedtime. Ondansetron HCl 4 MG Oral Tablet [Pharmacy*30 Tab*0 Sig: Take 1 Tablet by mouth every 12 hours as needed for Nausea. * Telephone Encounter - Jennifer Saul RPh - 11/20/2023 7:46 AM EDT Did you pend patient's preferred pharmacy and medication before forwarding?yes Pharmacy: Megan [facility]TE[facility] [address] Pending Prescriptions: Disp Refills Gabapentin 300 MG Oral Capsule (Neurontin*270 Ca*3 Sig: Take 1 Capsule by mouth in the morning and 1 Capsule at noon and 1 Capsule before bedtime. Ondansetron HCl 4 MG Oral Tablet (Zofran)*30 Tab*0 Sig: Take 1 Tablet by mouth every 12 hours as needed for Nausea. Last Visit: 06/21/2023 (in office), 09/11/2019 (telemedicine) Next Visit: 12/21/2023 If no future appointments scheduled, and last appointment is greater than a year ago, please schedule patient for a follow-up appointment Last date the medication was ordered: 10/26/22, 10/12/23 Is this request for a controlled substance?No Urine Drug Screen:No results found. However, due to the size of the patient record, not all encounters were searched. Please check Results Review for a complete set of results. Patient Phone Numbers Labs: Lab Results Component Value Date/Time CREAT 0.8 08/15/2023 11:15 AM CREAT 0.8 06/22/2020 10:11 AM POTASSIUM 4.4 08/15/2023 11:15 AM POTASSIUM 4.1 06/22/2020 10:11 AM TSH 2.79 12/09/2022 03:54 PM TSH 1.93 05/11/2020 08:04 AM LDLCALC 76 07/13/2022 03:07 PM LDLCALC 64 01/09/2020 04:34 PM LDLDIRECT NOT APPLICABLE 01/09/2020 04:34 PM LDLDIRECT 101 06/10/2015 12:00 PM ALT <5 (L) 08/15/2023 11:15 AM ALT 7 (L) 06/22/2020 10:11 AM HGBA1C 5.1 07/13/2022 03:07 PM HGBA1C 5.8 (H) 01/09/2020 04:34 PM documented in this encounter Plan of Treatment Upcoming Encounters Date Type Department Care Team (Late st Contact Info) Description 12/01/2023 10:00 AM EDT Laboratory Laboratory [facility] Shilpa [place] [address] [phone] Rosanna Massey [facility] [address] [facility] [place] [address] 12/08/2023 2:30 PM EDT Office Visit Hematology/Oncology [facility] [place] [address] [phone] Marietta Salazar CRNP 400 [place] [address] 12/11/2023 10:45 AM EDT Office Visit Urology, [facility] 132 [place] [address] Mendel Macedo MD [address] [place] [address] [place] [address] 12/13/2023 1:30 PM EDT Cardiac Studies Cardiac Studies, [facility] 132 [facility] [place] [address] 12/21/2023 2:20 PM EDT Office Visit General Internal Medicine [facility] [place] [address] [place] [address] Jose M Seth MD [address] [facility] [place] [address] 12/25/2023 1:30 PM EDT Office Visit Psychiatry, [facility] [address] [address] Paty Haynes CRNP [address] [place] [address] 01/25/2024 11:00 AM EDT Telemedicine Genetics HemOn, [facility] [address] [place] [address] Tonya Jovel, MS [address] [place] [address] 06/04/2024 3:40 PM EST Telemedicine Sleep Disorders Ctr Sinan Alvarez [place] [address] [place] [address] Charmaine Mckeon, [address] [place] [address] 10/14/2024 2:00 PM EDT Nurse Only Ancillary [facility] Shilpa [place] [address] [place] [address] Shilpa Nurse Annual Wellness Scenery [address] [place] [address] Health Maintenance Due Date Last Done Comments [...] as of this encounter Visit Diagnoses Diagnosis Chronic bilateral low back pain with bilateral sciatica MGUS (monoclonal gammopathy of unknown significance) Monoclonal paraproteinemia Peripheral polyneuropathy Unspecified hereditary and idiopathic peripheral neuropathy documented in this encounter Advance Directives * Full Code (Latest Code Status on File) Date Activated Date Inactivated Comments 09/24/2012 8:15 PM 10/02/2012 7:35 PM This order re flects the patients wishes and were consensually agreed upon. Care Teams District Plant Supervisor Relationship Specialty Start Date End Date Jose M Seth MD 200 [place] [address] PCP - General Internal Medicine 11/21/11 documented as of this encounter
--- OUTSIDE RECORDS SUMMARY | 2023-12-07 12:13 | External Medical Summary | Summary of Care ---
Author Name Unknown Organization [facility] Address [address] [place] [address] Phone [phone] Care Team Providers Care Slime Plant Operator Helper Name Role Phone Jose M Seth MD Primary Care Provider + Reason for Visit * Reason Onset Date Comments Appointment 10/31/2023 Encounter Details Date Type Department Care Team (Late st Contact Info) Description 10/31/2023 Telephone Urology, [facility] [address] [place] [address] Nurse Appointment Allergies Active Allergy [...] Dispensed Refills Start Date End Date Status [facility] ADULT BRIEFS X-LARGE MISCIndications:Unsp ecified urinary incontinence [...] needed. 100 Tab 04/15/2020 Active Saline Nasal [place] 0.65 % Nasal Solution ([place] Nasal [place]) Two sprays in each nostril as needed [...] Jose M Seth MD Pharmacy: Maricruz Foster [facility] 08/09/2013 12/16/2015 Dementia 07/19/2013 2017 Encounter for [...] mRNA, LNP-s, No Pre serve, 2-Dose Series ([employer]) 02/18/2021,08/10/2020,07/06/2020 COVID-19, MRNA-LNP, 23-24, P F, 30 [...] encounter Miscellaneous Notes * Telephone Encounter - Madiha Neri OSA - 10/31/2023 12:20 PM EDT Please call pt to resched 10/30 appt with the Nurse. Thank you Madiha documented in this encounter Plan of Treatment Upcoming Encounters Date Type Department Care Team (Late st Contact Info) Description 11/06/2023 3:00 PM EDT Office Visit Psychiatry, [facility] 200 [facility] [place] [address] Paty Haynes CRNP [address] [place] [address] 12/01/2023 10:00 AM EDT Laboratory Laboratory [facility] [address] [place] [phone] [facility] Lab [facility] [address] [place] [address] 12/08/2023 2:30 PM EDT Office Visit Hematology/Oncology [facility] [address] [place] [phone] Marietta Salazar CRNP 400 [place] [id number] 12/11/2023 10:45 AM EDT Office Visit Urology, [facility] 132 [facility] [place] [address] Mendel Macedo MD [address] [facility] [place] [address] [place] [address] 12/13/2023 1:30 PM EDT Cardiac Studies Cardiac Studies, [facility] 132 [facility] [place] [address] 12/21/2023 2:40 PM EDT Office Visit General Internal Medicine [facility] 200 [facility] [place] [address] Jose M Seth MD 200 [facility] [place] [address] 01/25/2024 11:00 AM EDT Telemedicine Genetics HemOnc, [place] [address] Tonya Jovel, MS 132 [facility] [place] [address] 06/04/2024 3:40 PM EST Telemedicine Sleep Disorders Ctr [facility] 132 [facility] [place] [phone] Charmaine Mckeon DO 132 [facility] [place] [address] 10/14/2024 2:00 PM EDT Nurse Only Ancillary [facility] [place] 200 [facility] [place] [address] Shilpa, Nurse Annual Wellness [facility] 200 [facility] [place] [address] Health Maintenance Due Date Last Done Comments [...] and were consensually agreed upon. Care Teams Slime Plant Operator Helper Relationship Specialty Start Date End Date Jose M Seth MD 200 [facility] [place] [address] PCP - General Internal Medicine 11/21/11 documented as of this encounter
--- OUTSIDE RECORDS SUMMARY | 2023-12-07 12:13 | External Medical Summary | Summary of Care ---
Author Name Unknown Organization [facility] Address [address] [place] [address] Phone [phone] Care Team Providers Care Fine Craft Artist Name Role Phone Jose M Seth MD Primary Care Provider + Reason for Visit * Reason Onset Date Comments Appointment 10/31/2023 Encounter Details Date Type Department Care Team (Late st Contact Info) Description 10/31/2023 Telephone Urology, [facility] [address] [place] [address] Nurse Appointment Allergies Active Allergy [...] Dispensed Refills Start Date End Date Status [facility] ADULT BRIEFS X-LARGE MISCIndications:Unsp ecified [...] needed. 100 Tab 04/15/2020 Active Saline Nasal [place] 0.65 % Nasal Solution ([place] Nasal [place]) Two sprays in each nostril as needed [...] PSG -- AHI 10.7, <89% 128 mins [facility] Returned machine Jun 2013 Nocturnal hypoxemia 06/18/2012 Overview: 2 LPM [facility] Chronic knee pain History of wound [...] Overview: Patient signed 10/15/13 PCP: Jose M Seht MD Pharmacy: [facility] 08/09/2013 12/16/2015 Dementia 07/19/2013 [...] mRNA, LNP-s, No Pre serve, 2-Dose Series (DesignHub) 02/18/2021,08/10/2020,07/06/2020 COVID-19, MRNA-LNP, 23-24, P F, 30 [...] 11/06/2023 3:00 PM EDT Office Visit Psychiatry, [facility] 200 [facility] [place] [address] Paty Haynes CRNP [address] [place] [address] 12/01/2023 10:00 AM EDT Laboratory Laboratory [facility] [address] [place] [phone] [facility] Lab [facility] [address] [place] [address] 12/08/2023 2:30 PM EDT Office Visit Hematology/Oncology [facility] [address] [place] [phone] Marietta Salazar CRNP [address] [place] [phone] 12/11/2023 10:45 AM EDT Office Visit Urology, [facility] 132 [facility] [place] [address] Mendel Macedo MD [address] [facility] [place] [address] [place] [address] 12/13/2023 1:30 PM EDT Cardiac Studies Cardiac Studies, [facility] 132 [facility] [place] [address] 12/21/2023 2:40 PM EDT Office Visit General Internal Medicine [facility] 200 [facility] [place] [address] Jose M Seth MD 200 [facility] [place] [address] 01/25/2024 11:00 AM EDT Telemedicine Genetics Hem[place]c, [place] [address] Tonya Jovel, [place] 132 [facility] [place] [address] 06/04/2024 3:40 PM EST Telemedicine Sleep Disorders Ctr [facility] 132 [facility] [place] [phone] Charmaine Mckeon DO 132 [facility] [place] [address] 10/14/2024 2:00 PM EDT Nurse Only Ancillary [facility] [place] [address] [facility] [place] [address] Shilpa, Nurse Annual Wellness [facility] 200 [facility] [place] [address] Health Maintenance Due Date Last Done Comments [...] and were consensually agreed upon. Care Teams Fine Craft Artist Relationship Specialty Start Date End Date Jose M Seth MD 200 [facility] [place] [address] PCP - General Internal Medicine 11/21/11 documented as of this encounter
--- OUTSIDE RECORDS SUMMARY | 2023-12-07 12:14 | External Medical Summary | Summary of Care ---
Author Name Unknown Organization [facility] Address [address] [place] [address] Phone [phone] Care Team Providers Care Oracle Drm Consultant Name Role Phone Jose M Seth MD Primary Care Provider + Reason for Visit * Reason Onset Date Comments Appointment 10/25/2023 Nurse appt Encounter Details Date Type Department Care Team (Late st Contact Info) Description 10/25/2023 Telephone Urology, [facility] [address] [place] [address] Services, Scheduling [address] [place] [address] Appointment (Nurse appt ) Allergies Active Allergy Reactions Criticality Noted Date [...] as of this encounter (statuses as of 10/25/2023) Medications Medication Sig Dispensed Refills Start Date [...] needed. 100 Tab 04/15/2020 Active Saline Nasal [place] 0.65 % Nasal Solution ([place] Nasal [place]) Two sprays in each nostril as needed [...] Active Additional Information Patient not taking.Reported on 10/09/2023 Atorvastatin Calcium 20 MG Oral Tablet (Lipitor)Indications [...] needed for Nausea. 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 documented as of this encounter (statuses as of 10/25/2023) Resolved Problems Problem Noted Date Diagnosed Date [...] as of this encounter (statuses as of 10/25/2023) Immunizations Name Administration Dates Next Due COVID-19 mRNA, LNP-s, No Pre serve, 2-Dose Series (Lingotek) 02/18/2021,08/10/2020,07/06/2020 COVID-19, MRNA-LNP, 23-24, P F, 30 MCG/0.3 mL, 12 YRS AND ABOVE, IM (PFIZER-Comirnat) 04/11/2023 Covid-19, Mrna, Lnp-s, Pf, B ivalent, [...] Telephone Encounter - Michael Meza OSA - 10/25/2023 3:35 PM EDT Pt scheduled October 30 at 1pm * Telephone Encounter - Barbara Yeung LPN - 10/25/2023 3:01 PM EDT PTNS. Please call patient to schedule. Overdue. * Telephone Encounter - Phuong Zaman OSA - 10/25/2023 2:52 PM EDT Patient calling in to schedule with one of the nurses an appt, she forgot the name of what it was for, please advise documented in this encounter Plan of Treatment Upcoming Encounters Date Type Department Care Team (Late st Contact Info) Description 10/27/2023 11:00 AM EDT Office Visit Sleep Disorders Ctr [facility] [place] [facility] [address] [place] [phone] Charmaine Mckeon DO [address] [place] [address] 10/27/2023 1:10 PM EDT Telemedicine Nutrition & Weight Management, [facility] [address] [place] [address] Maria E Cazares RDN 132 [place] [address] 10/31/2023 1:00 PM EDT Nurse Only Urology, [facility] 132 [place] [address] [facility], Nurse Urology [facility] 132 [place] [address] 11/06/2023 3:00 PM EDT Office Visit Psychiatry, [facility] 200 [facility] [place] [address] Paty Haynes CRNP 200 [facility] [place] [address] 12/01/2023 10:00 AM EDT Laboratory Laboratory [facility] [address] [place] [phone] [place], Lab [facility] 200 [facility] [place], [place] [address] 12/08/2023 2:30 PM EDT Office Visit Hematology/Oncology [facility] [address] [place] [phone] Marietta Salazar CRNP 400 [facility] [place] [address] 12/11/2023 10:45 AM EDT Office Visit Urology, [facility] 132 [facility] [place] [address] Mendel Macedo MD [address] [place] [address] [place] [address] 12/13/2023 1:30 PM EDT Cardiac Studies Cardiac Studies, [facility] [place] [address] 12/21/2023 2:40 PM EDT Office Visit General Internal Medicine [facility] 200 [facility] [place] [address] Jose M Seth MD 200 [facility] [place] [address] 01/25/2024 11:00 AM EDT Telemedicine Genetics HemOnc, [facility] 100 [place] [address] Tonya Jovel, MS [address] [place] [address] Health Maintenance Due Date Last Done Comments [...] and were consensually agreed upon. Care Teams Oracle Drm Consultant Relationship Specialty Start Date End Date Jose M Seth MD 200 [facility] [place] [address] PCP - General Internal Medicine 11/21/11 documented as of this encounter
--- OUTSIDE RECORDS SUMMARY | 2023-12-07 12:14 | External Medical Summary | Summary of Care ---
Author Name Unknown Organization [facility] Address [address] [place] [address] Phone [phone] Care Team Providers Care Protein Chemist Name Role Phone Jose M Seth MD Primary Care Provider + Reason for Visit * Reason Comments eRx-Medication Refill Encounter Details Date Type Department Care Team (Late st Contact Info) Description 10/09/2023 Refill General Internal Medicine [facility] 200 [place] [address] Jose M Seth MD [address] [place] [address] Seasonal allergic rhinitis, unspecified trigger Allergies Active Allergy Reactions Criticality Noted Date Comments Adhesive Tape 11/15/2012 Skin reaction , causing blister., including paper tape Codeine Nausea/vomiting 03/06/2012 Dicloxacillin Other (Please comment) 08/20/2021 Mouth sore Doxycycline Hyclate 07/22/2009 Nausea Erythromycin Base 07/22/2009 Nausea and bumps in mouth Morphine And Related 06/29/2009 "Crazy Loopy" Nsaids 06/28/2013 Can't take due to kidney problems. Rifampin Liver complications (Please comment) 08/20/2021 Elevated LFT's Tetracycline Base 06/29/2009 Nausea and not feeling well Cetirizine Hcl 03/23/2010 Problems breathing, overly dry documented as of this encounter (statuses as of 2023) Medications Medication Sig Dispensed Refills Start Date End Date Status PROCARE ADULT BRIEFS X-LARGE MISCIndications:Un specified urinary incontinence use as needed for urinary incontinence 2 Box 11 4 Active LOPERAMIDE HCL 2 MG PO CAPS 1 CAPSULE TWICE DAILY NEEDED 0 4 Active Fexofenadine HCl 180 MG Oral Tablet Take 1 Tablet by mouth daily as needed for Allergies. 0 Active Biotin 300 MCG TABS Take 300 mcg by mouth daily. 0 Active Cholecalciferol (VITAMIN D3) 1000 UNITS CAPS Take 1 Capsule by mouth in the morning. 0 Active Incontinence Supply Disposable (BAN SKIN-CARING WASHCLOTHS) MISCIndications:In continence Use as needed for incontinence. Dispense 2 tubs monthly DX R32 2 Each 5 7 Active oxygen GAS Use 2 L as directed every night at bedtime. With CPAP 0 5 Active Oxybutynin Chloride ER 15 MG Oral Tablet Extended Release 24 Hour (DITROPAN XL) Take 1 Tablet by mouth in the morning. 0 0 Active Acetaminophen 500 MG Oral Tablet (TYLENOL) Take 2 Tablets by mouth every 8 hours as needed. 100 Tab 0 0 Active Saline Nasal [place] 0.65 % Nasal Solution ([place] Nasal [place]) Two sprays in each nostril as needed for nasal dryness or congestion 50 mL 2 1 Active Hydrocortisone (Perianal) 2.5 % External Cream Administer into the rectum 2 times a day. For up to 1 week 30 g 0 2 Active Probiotic Acidophilus BioBeads Oral Capsule Take 1 Capsule by mouth in the morning and 1 Capsule at noon and 1 Capsule in the evening. Take with meals. 0 Active Diclofenac Sodium 1 % External Gel (Voltaren)Indicati ons:Primary osteoarthritis of left knee Apply topically to affected area 4 times a day. Apply to knee. 150 g 0 3 Active Gabapentin 300 MG Oral Capsule (Neurontin)Indicat ions:Chronic bilateral low back pain with bilateral sciatica,MGUS (monoclonal gammopathy of unknown significance),Katelin pheral polyneuropathy Take 1 Capsule by mouth in the morning and 1 Capsule at noon and 1 Capsule before bedtime. 270 Capsule 3 3 Active Ondansetron HCl 4 MG Oral Tablet (Zofran) Take 1 Tablet by mouth every 12 hours as needed for Nausea. 30 Tablet 0 3 Active Premarin 0.625 MG/GM Vaginal Cream (Estrogens Conjugated) Apply topically to affected area daily. As directed. 30 g 4 3 Active Additional Information Patient not taking.Reported on 10/09/2023 Atorvastatin Calcium 20 MG Oral Tablet (Lipitor)Indicatio ns:Mixed hyperlipidemia TAKE 1 TABLET BY MOUTH IN THE MORNING 90 Tablet 3 4 Active LORazepam 0.5 MG Oral Tablet (Ativan)Indication s:PETER (generalized anxiety disorder) Take 1 Tablet by mouth daily as needed for Anxiety. 10 Tablet 0 4 Active FLUoxetine HCl 20 MG Oral [...] NOT CRUSH 100 Tablet 3 4 Active Pantoprazole Sodium 40 MG Oral Tablet Delayed Release (Protonix) TAKE 1 TABLET BY MOUTH EVERY MORNING, DO NOT CRUSH 100 Tablet 3 3 10/10/19 24 Discontinued Fluticasone Propionate 50 MCG/ACT Nasal Suspension (Flonase)Indicatio ns:Seasonal allergic rhinitis, unspecified trigger Administer 2 Sprays into each nostril in the morning. 16 g 3 3 10/10/19 24 Discontinued documented as of this encounter (statuses as of 2023) Active Problems Problem Noted Date Diagnosed Date [...] sleep apnea 06/18/2012 Overview: 11/02/12 -- CPAP 11-16 06/15/12 -- start oxygen 2 LPM 06/01/12 PSG -- AHI 10.7, <89% 128 mins [facility] Returned machine Jun 2013 Nocturnal hypoxemia 06/18/2012 Overview: 2 LPM [facility] 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 documented as of this encounter (statuses as of 2023) Resolved Problems Problem Noted Date Diagnosed Date [...] Jose M Seth MD Pharmacy: [facility] 08/09/2013 12/16/2015 Dementia 07/19/2013 2017 Encounter [...] as of this encounter (statuses as of 2023) Immunizations Name Administration Dates Next Due COVID-19 mRNA, LNP-s, No Pre serve, 2-Dose Series (View and Chew) 02/18/2021,08/10/2020,07/06/2020 COVID-19, MRNA-LNP, 23-24, P F, 30 MCG/0.3 mL, 12 YRS AND ABOVE, IM ([employer]port Brands-Comircritical access hospitalOptini) 04/11/2023 Covid-19, Mrna, Lnp-s, Pf, B ivalent, 30 Mcg, IM, 12 yrs and above (View and Chew) 03/22/2022 Pneumococcal Conjugate Vacc, 13 Valent (Prevnar) [...] 03/11/2019 TDAP (age 10 and older)(Boostrix) 03/07/2022 TDAP (age 11 and older)(Adacel) 08/12/2010 Zoster Vaccine Recombinant (Shingrix) 06/18/2019 ,02/13/2018 [...] encounter Miscellaneous Notes * Telephone Encounter - Collin Jimenez RPh - 2023 6:28 PM EDTSigned Prescriptions: Disp Refills Fluticasone Propionate 50 MCG/ACT Nasal [place]*16 g 3 Sig: Administer 2 Sprays into each nostril in the morning.Authorizing Provider: JOSE M SETH User: COLLIN JIMENEZ Pantoprazole Sodium 40 MG Oral Tablet Serina*100 Ta*3 Sig: TAKE 1 TABLETBY MOUTH EVERY MORNING, DO NOT CRUSHAuthorizing Provider: JOSE M SETH User: COLLIN JIMENEZ documented in this encounter Plan of Treatment Upcoming Encounters Date Type Department Care Team (Late st Contact Info) Description 10/11/2023 2:30 PM EDT Imaging Radiology [facility] 1st Floor, [place] 132 [facility] [place] [address] 10/11/2023 3:00 PM EDT Imaging Radiology [facility] 132 [facility] [place] [address] 10/12/2023 2:00 PM EDT Nurse Only Urology, [facility] 132 [facility] [place] [address] [facility] Nurse Urology [facility] 132 [facility] [place] [address] 10/19/2023 2:30 PM EDT Telemedicine Nutrition & Weight Management, [facility] 132 [facility] [place] [address] Maria E Cazares RDN [facility] [place] [address] 10/27/2023 11:00 AM EDT Office Visit Sleep Disorders Ctr [facility] 132 [facility] [place] [phone] Charmaine Mckeon DO 132 [facility] [place] [address] 11/06/2023 3:00 PM EDT Office Visit Psychiatry, Brian Massey [address] [address] Paty Haynes CRNP [address] [place] [address] 12/01/2023 10:00 AM EDT Laboratory Laboratory [facility] A[facility]n Cevallos [address] [place] [phone] Rosanna Massey [address] [place] [address] 12/08/2023 2:30 PM EDT Office Visit Hematology/Oncology [facility] 200 [facility] [place] [phone] Marietta Salazar CRNP 400 [facility] [place] [address] 12/11/2023 10:45 AM EDT Office Visit Urology, [facility] [place] [address] Mendel Macedo MD [address] [address] [place] [address] 12/13/2023 1:30 PM EDT Cardiac Studies Cardiac Studies, [facility] 132 [facility] [place] [address] 12/21/2023 2:40 PM EDT Office Visit General Internal Medicine [facility] 200 [facility] [place] [address] Jose M Seth MD 200 [facility] [place] [address] 01/25/2024 11:00 AM EDT [facility] [place] [place] [address] Tonya Jovel, MS 132 [facility] [place] [address] Health Maintenance Due Date Last Done Comments HbA1c 07/13/2023 07/13/2022, 08/28, 02/15/2021, Additional history [...] Completed 02/07/2023, 02/08/2022, 02/08/2021, Additional history exists COVID-19 Vaccine Completed 04/11/2023, , 02/18/2021, Additional history exists GARDASIL-HPV IMMUNIZATION SERIES Aged [...] as of this encounter Visit Diagnoses Diagnosis Seasonal allergic rhinitis, unspecified trigger documented in this encounter Advance Directives Latest Code Status on File Code Status Date Activated Date Inactivated Comments Full Code 09/24/2012 8:15 PM 10/02/2012 7:35 PM This o rder reflects the patients wishes and were consensually agreed upon. Care Teams Protein Chemist Relationship Specialty Start Date End Date Jose M Seth MD 200 [place] [address] PCP - General Internal Medicine 11/21/11 documented as of this encounter
--- OUTSIDE RECORDS SUMMARY | 2023-12-07 12:14 | External Medical Summary | Summary of Care ---
Author Name Unknown Organization [facility] Address [address] [place] [address] Phone [phone] Care Team Providers Care Electrical Appliance Servicer Name Role Phone Jose M Seth MD Primary Care Provider + Encounter Details Date Type Department Care Team (Late st Contact Info) Description 10/27/2023 1:10 PM EDT Telemedicine Nutrition & Weight Management, [facility] [address] [facility] [address] Maria E Cazares RDN [address] [place] [address] Obesity, Class II, BMI 35-39.9* Allergies Active Allergy Reactions Criticality Noted Date [...] as of this encounter (statuses as of 10/27/2023) Medications Medication Sig Dispensed Refills Start Date [...] needed. 100 Tab 04/15/2020 Active Saline Nasal [place] 0.65 % Nasal Solution ([place] Nasal [place]) Two sprays in each nostril as needed [...] as of this encounter (statuses as of 10/27/2023) Active Problems Problem Noted Date Diagnosed Date [...] PSG -- AHI 10.7, <89% 128 mins [facility] Returned machine Jun 2013 Nocturnal hypoxemia 06/18/2012 Overview: 2 LPM [facility] 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 documented as of this encounter (statuses as of 10/27/2023) Resolved Problems Problem Noted Date Diagnosed Date [...] Jose M Seth MD Pharmacy: [facility] 08/09/2013 12/16/2015 Dementia 07/19/2013 2017 Encounter [...] as of this encounter (statuses as of 10/27/2023) Immunizations Name Administration Dates Next Due COVID-19 mRNA, LNP-s, No Pre serve, 2-Dose Series ([employer]) 02/18/2021,08/10/2020,07/06/2020 COVID-19, MRNA-LNP, 23-24, P F, 30 MCG/0.3 mL, 12 YRS AND ABOVE, IM ([facility]) 04/11/2023 Covid-19, Mrna, Lnp-s, Pf, B [...] as of this encounter Progress Notes * Maria E Cazares RDN - 10/27/2023 1:10 PM EDT NUTRITION & WEIGHT MANAGEMENT PROGRESS NOTE [facility] Name: Kathy Mccoy Location: NUTRITION & WEIGHT MANAGEMENT, [facility] Date: 10/27/2023 Time: 10:47 AM Patient was identified at visit by name and date. Patient location: HOME. I was in a hospital or clinic location. After connecting through Usabilla[employer],patient was verified with two unique identifiers. Patient (or authorized legal sales and service representative) wasthen informed that this was a Telemedicine visit and being conducted confidentially over secure lines. Methods to assure confidentiality were taken. Patient acknowledged consent and understanding of privacy and security of the Telemedicine visit. The patient agreed to participate. NUTRITION ASSESSMENT SUBJECTIVE: 77 year old female seen in the [facility] clinic for weight and nutrition support. Hx of JOO with nocturnal hypoxia, MDD, GERD, prediabetes, diastolic heart failure, obesity, chronic back pain, hx breast cancer, hx uterine cancer PRIOR NUTRITION COUNSELING: Weight Management Clinic PERTINENT MEDICATIONS: gabipentin, pantoprazone, lipitor FOOD ALLERGY/INTOLERANCE ISSUES: None 10/27/23 -Routine Dietary Follow Up Today -Feels she is doing better with meals, was away visiting oldest daughter -Trying to not eat late -Follows smaller portion sizes, uses smaller bowls -Continues to do well with diet intake 07/18/23 -Routine dietary follow up -Cutting back on "junk" -having 2 good meals a day -Daughter Haleigh is with pt today during our VV 04/14/23 -6 m dietary follow up -Says diet -eating junk feels it is stress related, seasonal depression -Feels she needs a routine -Can get up okay in AM, goes to bed 10-11 pm -No longer has cable Progress on goals from the previous visit: Pt reporting she is doing well with eliminating highly processed foods. Doing better with sweets -Continue to limit sweets and use smaller portions. Limit sweets to no more than twice a week. -Focus on lean proteins, lots of fruits and vegetables (4-6 c a day) -Limit highly processed foods Describes typical diet history/24 hr recall Breakfast: Eggs (at least 3 times a week) and/or oatmeal (does not like fruit with oatmeal), or raisin bran crunch can skip a few days Snacks: Sometimes a yogurt or banana/orange/apple Lunch: sandwich or small salad or small waldorf salad or bagged salad kit Snacks: can have canned fruit in juice Dinner: meat chix or turkey and veggie can have salmon or ashlie Snacks: on occasion ice cream will have a few bites Drinks: water, coffee, green tea Alcohol: None Not eating as much ice cream Restaurant meals: rare DIET RECALL INDICATES: Portion control Low fat and/or low sugar selections Uses calorie free beverages Low caffeine intake PHYSICAL ACTIVITY: Will do some group exercises when she is able in her apt building ANTHROPOMETRICS: Initial clinic visit 04/06/22 Weight 202 lbs Height 63" Weight goal: Feels better at 160 lbs Current weight: 187 lbs from October 08 MARIELLA Weight: 193 lbs Date: 07/18/23 self reported Weight changes: -6 lbs since MARIELLA Wt Readings from Last 10 Encounters: 10/09/23 84.9 kg (187 lb 1.6 oz) 09/13/23 85.3 kg (188 lb) 06/21/23 87.9 kg (193 lb 11.2 oz) 05/11/23 85.7 kg (188 lb 14.4 oz) 05/02/23 88.5 kg (195 lb 1.6 oz) 03/24/23 90.1 kg (198 lb 11.2 oz) 03/17/23 88.9 kg (196 lb) 02/07/23 89.4 kg (197 lb 3.2 oz) 12/09/22 90.2 kg (198 lb 12.8 oz) 11/15/22 88.9 kg (196 lb) MNT: Calorie Controlled Diet, High Fiber Diet, Good Nutrition, Nutrient Dense Diet Patient is interested in the following treatment options for obesity: medical management. LABS:Pertinent lab studies have been reviewed. Latest Reference Range & Units 08/15/23 11:15 Iron 33 - 151 ug/dL 47 Iron Binding Capacity 250 - 425 ug/dL 284 Transferrin Saturation Percent 15 - 55 % 17 Ferritin 13 - 150 ng/mL 249 (H) (H): Data is abnormally high Latest Reference Range & Units 08/15/23 11:15 Sodium 135 - 146 mmol/L 136 Potassium 3.5 - 5.1 mmol/L 4.4 Chloride 98 - 107 mmol/L 99 CO2 22 - 32 mmol/L 28 BUN 6 - 20 mg/dL 17 Creatinine 0.5 - 1.0 mg/dL 0.8 Estimated Glomerular Filtration Rate >=60 mL/min 72 Anion Gap 7 - 15 mmol/L 9 Glucose 70 - 120 mg/dL 112 Calcium 8.4 - 10.2 mg/dL 9.5 NUTRITION PRESCRIPTION: Mcintosh StHaider James 1352 x 1.2 activity factor = 1662 Kcals --> 1200 Kcals for weight loss ABW: 136 lbs/ 61.8 Protein: 1.0 gm protein/kg (61.8 kg) = 60 gm protein/day Fluid: 22 mL/kg (61.8 kg) = 1359 mL/da KNOWLEDGE ASSESSMENT: adequate knowledge BARRIERS TO LEARNING: None SPECIAL EDUCATION NEEDS: None NUTRITION DIAGNOSIS: Overweight/obesity related to excessive energy intake and physical inactivity as evidenced by BMI of 35.35 kg/m, Class II Obesity. NUTRITION INTERVENTION INSTRUCTED PT ON THESE NUTRITION HANDOUTS: None given PATIENT GOALS: -Continue to limit sweets and use smaller portions. Limit sweets to no more than twice a week. -Focus on lean proteins, lots of fruits and vegetables (4-6 c a day) -Limit highly processed foods EXPECTED OUTCOMES: Demonstrated interest in learning. Expect compliance with diet recommendations. PLAN: 4 m ret 20 min visit Maria E Cazares RDN documented in this encounter Plan of Treatment Upcoming Encounters Date Type Department Care Team (Late st Contact Info) Description 10/31/2023 1:00 PM EDT Nurse Only Urology, [facility] [place] [address] [facility] Nurse Urology [facility] 132 [facility] [place] [address] 11/06/2023 3:00 PM EDT Office Visit Psychiatry, [facility] 200 [facility] [place] [address] Paty Haynes CRNP 200 [facility] [place] [address] 12/01/2023 10:00 AM EDT Laboratory Laboratory [facility] 200 [facility] [place] [phone] Shilpa Lab [facility] 200 [facility] [place] [address] 12/08/2023 2:30 PM EDT Office Visit Hematology/Oncology [facility] 200 [facility] [place] [phone] Marietta Salazar CRNP 400 [facility] [place] [address] 12/11/2023 10:45 AM EDT Office Visit Urology, [facility] 132 [facility] [place] [address] Mendel Macedo MD [address] [address] [place] [address] 12/13/2023 1:30 PM EDT Cardiac Studies Cardiac Studies, [facility] [address] [place] [address] 12/21/2023 2:40 PM EDT Office Visit General Internal Medicine [facility] 200 [facility] [place] [address] Jose M Seth MD 200 [facility] [place] [address] 01/25/2024 11:00 AM EDT Telemedicine Genetics HemOnc, [facility] [address] [place] [address] Tonya Jovel, [place] [address] [place] [address] Health Maintenance Due Date Last Done Comments [...] as of this encounter Visit Diagnoses Diagnosis Obesity, Class II, BMI 35-39.9- Primary Morbid obesity documented in this encounter Advance Directives * Full Code (Latest Code Status on File) Date Activated Date Inactivated Comments 09/24/2012 8:15 PM 10/02/2012 7:35 PM This order re flects the patients wishes and were consensually agreed upon. Care Teams Electrical Appliance Servicer Relationship Specialty Start Date End Date Jose M Seth MD [address] [place] [address] PCP - General Internal Medicine 11/21/11 documented as of this encounter
--- OUTSIDE RECORDS SUMMARY | 2023-12-07 12:14 | External Medical Summary | Summary of Care ---
Author Name Unknown Organization [facility] Address [address] [place] [address] Phone [phone] Care Team Providers Care Protohistorian Name Role Phone Jose M Seth MD Primary Care Provider + Encounter Details Date Type Department Care Team (Late st Contact Info) Description 10/12/2023 2:00 PM EDT Nurse Only Urology, [facility] [address] [place] [address] AlvarezNurse lily Urology [facility] [address] [place] [address] Allergies Active Allergy Reactions Criticality Noted Date [...] as of this encounter (statuses as of 10/12/2023) Medications Medication Sig Dispensed Refills Start Date End Date Status PROCARE ADULT BRIEFS X-LARGE MISCIndications:Unsp ecified urinary incontinence use as needed for urinary incontinence 2 Box 11 06/10/2013 Active LOPERAMIDE HCL 2 MG PO CAPS 1 CAPSULE TWICE DAILY NEEDED 0 07/19/2013 Active Fexofenadine HCl 180 MG Oral [...] every night at bedtime. With CPAP 0 05/29/2014 Active Oxybutynin Chloride ER 15 MG Oral Tablet Extended Release 24 Hour (DITROPAN XL) Take 1 Tablet by mouth in the morning. 0 03/25/2020 Active Acetaminophen 500 MG Oral Tablet (TYLENOL) Take 2 Tablets by mouth every 8 hours as needed. 100 Tab 0 04/15/2020 Active Saline Nasal [place] 0.65 % Nasal Solution ([place] Nasal [place]) Two sprays in each nostril as needed for nasal dryness or congestion 50 mL 2 05/06/2021 Active Hydrocortisone (Perianal) 2.5 % External Cream Administer into the rectum 2 times a day. For up to 1 week 30 g 0 09/06/2021 Active Probiotic Acidophilus BioBeads Oral Capsule Take 1 Capsule by mouth in the morning and 1 Capsule at noon and 1 Capsule in the evening. Take with meals. 0 Active Diclofenac Sodium 1 % External Gel (Voltaren)Indication s:Primary osteoarthritis of left knee Apply topically to affected area 4 times a day. Apply to knee. 150 g 0 07/29/2022 Active Gabapentin 300 MG Oral Capsule [...] as needed for Anxiety. 10 Tablet 0 10/11/2023 Active Ondansetron HCl 4 MG Oral Tablet (Zofran) Take 1 Tablet by mouth every 12 hours as needed for Nausea. 30 Tablet 0 10/12/2023 Active documented as of this encounter (statuses as of 10/12/2023) Active Problems Problem Noted Date Diagnosed Date [...] as of this encounter (statuses as of 10/12/2023) Resolved Problems Problem Noted Date Diagnosed Date [...] Jose M Seth MD Pharmacy: [facility]ruz Foster [facility] 08/09/2013 12/16/2015 Dementia 07/19/2013 2017 Encounter [...] as of this encounter (statuses as of 10/12/2023) Immunizations Name Administration Dates Next Due COVID-19 mRNA, LNP-s, No Pre serve, 2-Dose Series ([employer]) 02/18/2021,08/10/2020,07/06/2020 COVID-19, MRNA-LNP, 23-24, P F, 30 MCG/0.3 mL, 12 YRS AND ABOVE, IM ([facility]) 04/11/2023 Covid-19, Mrna, Lnp-s, Pf, [...] Nursing Notes * Barbara Yeung LPN - 10/12/2023 2:49 PM EDT Patient in office for PTNS treatment #7. Left ankle used. Tolerated 30 min treatment on level 11. Patient reports symptoms are stable. documented in this encounter Plan of Treatment Upcoming Encounters Date Type Department Care Team (Late st Contact Info) Description 10/19/2023 2:30 PM EDT Telemedicine [facility] [address] [place] [address] Maria E Cazares RDN [address] [place] [address] 10/27/2023 11:00 AM EDT [facility] [address] [place] [phone] Charmaine Mckeon DO [address] [place] [address] 11/06/2023 3:00 PM EDT Office Visit Psychiatry, [facility] [address] [place] [address] Paty Haynes CRNP [address] [place] [address] 12/01/2023 10:00 AM EDT Laboratory Laboratory [facility] [address] [place] [phone] Sh[facility]pa [facility] 200 [facility] [place] [address] 12/08/2023 2:30 PM EDT Office Visit Hematology/Oncology [facility] [address] [place] [phone] Marietta Salazar CRNP 400 [facility] [place] [address] 12/11/2023 10:45 AM EDT Office Visit Urology, [facility] 132 [place] [address] Mendel Macedo MD [address] [place] [address] [place] [address] 12/13/2023 1:30 PM EDT Cardiac Studies Cardiac Studies, [facility] 132 [facility] [place] [address] 12/21/2023 2:40 PM EDT Office Visit General Internal Medicine [facility] [address] [place] [address] Jose M Seth MD 200 [facility] [place] [address] 01/25/2024 11:00 AM EDT Telemedicine Genetics HemOnc, [facility] [address] [place] [address] Tonya Jovel, [place] 132 [facility] [place] [address] Health Maintenance Due Date Last Done Comments HbA1c 07/13/2023 07/13/2022, 08/28, 02/15/2021, Additional history exists DXA Scan 09/20/2024 09/20/2021, 2 09/2021, 10/23/2013, Additional history exists DTaP,Tdap,and Td Vaccines [...] Primary documented in this encounter Advance Directives Latest Code Status on File Code Status Date Activated Date Inactivated Comments Full Code 09/24/2012 8:15 PM 10/02/2012 7:35 PM This o rder reflects the patients wishes and were consensually agreed upon. Care Teams Protohistorian Relationship Specialty Start Date End Date Jose M Seth MD [address] [place], [place] [address] PCP - General Internal Medicine 11/21/11 documented as of this encounter
--- OUTSIDE RECORDS SUMMARY | 2023-12-07 12:14 | External Medical Summary | Summary of Care ---
Author Name Unknown Organization [facility] Address [address] [place] [address] Phone [phone] Care Team Providers Care Salvager Name Role Phone Jose M Seth MD Primary Care Provider + Reason for Visit * Reason Onset Date Comments Advice 10/11/2023 Medication Refil l Encounter Details Date Type Department Care Team (Late st Contact Info) Description 10/11/2023 Telephone General Internal Medicine [facility] 200 [place] [address] Jose M Seth MD 200 [place] [address] Advice (Medication Refill) Allergies Active Allergy Reactions Criticality Noted Date [...] as of this encounter (statuses as of 10/11/2023) Medications Medication Sig Dispensed Refills Start Date End Date Status PROCARE ADULT BRIEFS X-LARGE MISCIndications:Uns pecified urinary incontinence use as needed for urinary [...] Active Incontinence Supply Disposable ([employer]HS) MISCIndications:Inc ontinence Use as needed for incontinence. Dispense 2 [...] 100 Tab 0 0 Active Saline Nasal [place] 0.65 % Nasal Solution ([place]al Nasal [place]) Two sprays in each nostril as needed [...] Active Diclofenac Sodium 1 % External Gel (Voltaren)Indicatio ns:Primary osteoarthritis of left knee Apply topically to affected area 4 times a day. Apply to knee. 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 90 Tablet 2 4 Active Fluticasone Propionate 50 MCG/ACT Nasal Suspension (Flonase)Indication s:Seasonal allergic rhinitis, unspecified trigger Administer 2 Sprays into each nostril in the morning. 16 g 3 4 Active Pantoprazole Sodium 40 MG Oral Tablet Delayed Release (Protonix) TAKE 1 TABLET BY MOUTH EVERY MORNING, DO NOT CRUSH 100 Tablet 3 4 Active LORazepam 0.5 MG Oral Tablet (Ativan)Indications :PETER (generalized anxiety disorder) Take 1 Tablet by mouth daily as needed for Anxiety. 10 Tablet 0 4 Active LORazepam 0.5 MG Oral Tablet (Ativan)Indications :PETER (generalized anxiety disorder) Take 1 Tablet by mouth daily as needed for Anxiety. 10 Tablet 0 4 10/11/19 24 Discontinu ed(Refill) documented as of this encounter (statuses as of 10/11/2023) Active Problems Problem Noted Date Diagnosed Date [...] PSG -- AHI 10.7, <89% 128 mins [facility] Returned machine Jun 2013 Nocturnal hypoxemia 06/18/2012 Overview: 2 LPM [facility] 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 documented as of this encounter (statuses as of 10/11/2023) Resolved Problems Problem Noted Date Diagnosed Date [...] 10/15/13 PCP: Jose M Seth MD [facility] 08/09/2013 12/16/2015 Dementia 07/19/2013 2017 Encounter [...] as of this encounter (statuses as of 10/11/2023) Immunizations Name Administration Dates Next Due COVID-19 mRNA, LNP-s, No Pre serve, 2-Dose Series ([employer]) 02/18/2021,08/10/2020,07/06/2020 COVID-19, MRNA-LNP, 23-24, P F, 30 MCG/0.3 mL, 12 YRS AND ABOVE, IM ([employer]) 04/11/2023 Covid-19, Mrna, Lnp-s, Pf, B ivalent, [...] encounter Miscellaneous Notes * Telephone Encounter - Paty Haynes CRNP - 10/11/2023 5:25 PM EDT Refill provided and sent to patient's requested pharmacy. Patient contacted by telephone and informed that refill should be available at her pharmacy. * Telephone Encounter - Jose M Seth MD - 10/11/2023 11:20 AM EDT This is managed by psychiatry, thanks * Telephone Encounter - Ana Matamoros OSA - 10/11/2023 11:07 AM EDT Pt called to inform Dr. Seth that she needs a refill on her Lorazepam 0.5 MG medication as soon as possible, pt only has one pill left as of today. Patient stated she is leaving out of town on /Monday and needs this medication to travel. Please contact pt mobile number as soon as possible when medication has been sent. documented in this encounter Plan of Treatment Upcoming Encounters Date Type Department Care Team (Late st Contact Info) Description 10/12/2023 2:00 PM EDT [facility] [address] [place] [address] [place] Nurse Urology [facility] [address] [place] [address] 10/19/2023 2:30 PM EDT Telemedicine Nutrition & Weight Management, [facility] [address] [place] [address] Maria E Cazares RDN [address] [place] [address] 10/27/2023 11:00 AM EDT Office Visit Sleep Disorders Ctr [facility] [address] [place] [phone] Charmaine Mckeon DO [address] [place] [address] 11/06/2023 3:00 PM EDT Office Visit Psychiatry, [facility] [address] [place] [address] Paty Haynes CRNP [address] [place] [address] 12/01/2023 10:00 AM EDT Laboratory Laboratory [facility] Shilpa [place] [address] [place] [phone] Rosanna Massey [facility] [address] [facility] [place] [address] 12/08/2023 2:30 PM EDT Office Visit Hematology/Oncology [place] Shilpa [place] [address] [place] [phone] Marietta Salazar CRNP 400 [facility] [place] [address] 12/11/2023 10:45 AM EDT Office Visit Urology, [facility] 132 [place] [address] Mendel Macedo MD 27 [facility] [address] [place] [address] 12/13/2023 1:30 PM EDT Cardiac Studies Cardiac Studies, [facility] 132 [place] [address] 12/21/2023 2:40 PM EDT Office Visit General Internal Medicine [facility] 200 [place] [address] Jose M Seth MD 200 [facility] [place] [address] 01/25/2024 11:00 AM EDT [facility] [place] [address] Tonya Jovel, [place] 132 [facility] [place] [address] Health Maintenance Due Date Last Done Comments [...] as of this encounter Visit Diagnoses Diagnosis PETER (generalized anxiety disorder) Generalized anxiety disorder documented in this encounter Advance Directives Latest Code Status on File Code Status Date Activated Date Inactivated Comments Full Code 09/24/2012 8:15 PM 10/02/2012 7:35 PM This o rder reflects the patients wishes and were consensually agreed upon. Care Teams Salvager Relationship Specialty Start Date End Date Jose M Seth MD 200 [place] [address] PCP - General Internal Medicine 11/21/11 documented as of this encounter
--- OUTSIDE RECORDS SUMMARY | 2023-12-07 12:14 | External Medical Summary | Summary of Care ---
Author Name Unknown Organization [facility] Address [address] [place] [address] Phone [phone] Care Team Providers Care Silver Solderer Name Role Phone Jose M Seth MD Primary Care Provider + Reason for Visit * Reason Onset Date Comments Adult Annual Wellness Visit, Subsequent Visit Encounter Details Date Type Department Care Team (Late st Contact Info) Description 10/09/2023 1:00 PM EDT Nurse Only Ancillary [facility] [address] [place] [address] [employer], Nurse [facility] [address] [place] [address] Adult Annual Wellness Visit, Subsequent Visit Allergies Active Allergy Reactions Criticality Noted Date [...] as of this encounter (statuses as of 10/09/2023) Medications Medication Sig Dispensed Refills Start Date [...] 100 Tab 0 0 Active Saline Nasal Termo 0.65 % Nasal Solution ([place] Nasal Termo) Two sprays in each nostril as needed [...] before bedtime. 270 Capsule 3 3 Active Pantoprazole Sodium 40 MG Oral Tablet Delayed Release (Protonix) TAKE 1 TABLET BY MOUTH EVERY MORNING, DO NOT CRUSH 100 Tablet 3 3 Active Fluticasone Propionate 50 MCG/ACT Nasal Suspension (Flonase)Indicatio ns:Seasonal allergic rhinitis, unspecified trigger Administer 2 Sprays into each nostril in the morning. 16 g 3 3 Active Ondansetron HCl 4 MG [...] at bedtime. 90 Tablet 2 4 Active ferrous sulfate (FEOSOL) 325 (65 FE) MG Tablet Take 1 Tablet by mouth every other day. 0 10/09/19 24 Discontinued Famotidine 20 MG Oral Tablet (Pepcid)Indication s:Gastroesophageal reflux disease without esophagitis Take 1 Tablet by mouth at bedtime. 90 Tablet 3 4 10/09/19 24 Discontinued documented as of this encounter (statuses as of 10/09/2023) Active Problems Problem Noted Date Diagnosed Date [...] sleep apnea 06/18/2012 Overview: 11/02/12 -- CPAP -16 06/15/12 -- start oxygen 2 LPM 06/01/12 PSG -- AHI 10.7, <89% 128 mins [facility] Returned machine Jun 2013 Nocturnal hypoxemia 06/18/2012 Overview: 2 LPM [facility] 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 documented as of this encounter (statuses as of 10/09/2023) Resolved Problems Problem Noted Date Diagnosed Date [...] Jose M Seth MD Pharmacy: [facility] 08/09/2013 12/16/2015 Dementia 07/19/2013 2017 Encounter for [...] as of this encounter (statuses as of 10/09/2023) Immunizations Name Administration Dates Next Due COVID-19 mRNA, LNP-s, No Pre serve, 2-Dose Series ([employer]) 02/18/2021,08/10/2020,07/06/2020 COVID-19, MRNA-LNP, 23-24, P F, 30 MCG/0.3 mL, 12 YRS AND ABOVE, IM ([facility] 04/11/2023 Covid-19, Mrna, Lnp-s, Pf, B ivalent, 30 Mcg, IM, 12 yrs and above ([employer]) 03/22/2022 Pneumococcal Conjugate Vacc, 13 Valent (Prevnar) [...] Sign Reading Time Taken Comments Blood Pressure 110/60 10/09/2023 1:18 PM EDT Pulse 76 10/09/2023 1:18 PM EDT Temperature 37.2 C (99 F) 10/09/2023 1:18 PM EDT Respiratory Rate - - Oxygen Saturation - - Inhaled Oxygen Concentration - - Weight 84.9 kg (187 lb 1.6 oz) 10/09/2023 1:18 PM EDT Height 154.9 cm (5' 1") 10/09/2023 1:18 PM EDT Body Mass Index 35.35 10/09/2023 1:18 PM EDT documented in this encounter Patient Instructions * Patient Instructions* Domonique Juarez RN - 10/09/2023 1:09 PM EDT Hi Ms. Mccoy, As your primary care physician, I know that regular visits with my patients who have several chronic conditions can go a long way in helping you stay healthy. Many times, the clinic team and I are in touch with you and/or other care team members between office visits to adjust medications, discuss any changes in your health, and review our care plan to make sure it is still meeting your needs. I am dedicated to helping you take a more active role in your overall care. It is important that there are resources available to you, so I created a personalized plan of care with a Health Calendar for you, which is included on the next page of this letter. Below is a list that summarizes your electronic health record: Health Maintenance Due: Health Maintenance Due Topic Date Due HbA1c 07/13/2023 Current Medication List: (as of Visit date not found (in office), Visit date not found (telemedicine) ) Current Outpatient Medications Medication Sig Dispense Refill [...] 1 Capsule by mouth in the morning. ferrous sulfate (FEOSOL) 325 (65 FE) MG Tablet Take 1 Tablet by mouth every other day. Incontinence Supply Disposable (BAN SKIN-CARING WASHCLOTHS) MISC [...] by mouth every 8 hours as needed. 100Tab 0 Saline Nasal Termo 0.65 % Nasal Solution ([place] Nasal Termo) Two sprays in each nostril as needed for nasal dryness or congestion 50 mL 2 Hydrocortisone (Perianal) 2.5 % External Cream Administer into the rectum 2 times a day. For upto 1 week 30 g 0 Probiotic Acidophilus BioBeads Oral Capsule Take 1 Capsule by mouth in the morning and 1 Capsule at noon and 1 Capsule in the evening. Take with meals. Diclofenac Sodium 1 % External Gel (Voltaren) Apply topically to affected area 4 times a day. Apply to knee. 150 g 0 Gabapentin 300 MG Oral Capsule (Neurontin) Take 1 Capsule by mouth in the morning and 1 Capsuleat noon and 1 Capsule before bedtime. 270 Capsule 3 Pantoprazole Sodium 40 MG Oral Tablet Delayed Release (Protonix) TAKE 1 TABLET BY MOUTH EVERY MORNING, DO NOT CRUSH 100 Tablet 3 Fluticasone Propionate 50 MCG/ACT Nasal Suspension (Flonase) Administer 2 Sprays into each nostril in the morning. 16 g 3 COVID-19 mRNA Vaccine 12 years and above Pfizer 30 MCG/0.3 ML IM SUSP Inject into a large muscle. 0.3 mL 0 Ondansetron HCl 4 MG Oral Tablet (Zofran) Take 1 Tablet by mouth every 12 hours as needed for Nausea. 30 Tablet 0 Premarin 0.625 MG/GM Vaginal Cream (Estrogens Conjugated) Apply topically to affected area daily. As directed. 30 g 4 Atorvastatin Calcium 20 MG Oral Tablet (Lipitor) TAKE 1 TABLET BY MOUTH IN THE MORNING 90 Tablet 3 LORazepam 0.5 MG Oral Tablet (Ativan) Take 1 Tablet by mouth daily as needed for Anxiety. 10 Tablet 0 Famotidine 20 MG Oral Tablet (Pepcid) Take 1 Tablet by mouth at bedtime. 90 Tablet 3 FLUoxetine HCl 20 MG Oral Capsule (PROzac) Take 1 Capsule by mouth at bedtime. 30 Capsule 2 Divalproex Sodium ER 250 MG Oral Tablet Extended Release 24 Hour (Depakote ER) Take 3 Tablets by mouth every night at bedtime. 90 Tablet 2 No current facility-administered medications for this visit. Current List of Allergies: (as of Visit date not found (in office), Visit date not found (telemedicine) ) Review of patient's allergies indicates: Allergen Reactions Adhesive Tape Skin reaction , causing blister., including paper tape Codeine Nausea/vomiting Dicloxacillin Other (Please comment) Mouth sore Doxycycline Hyclate Nausea Erythromycin Base Nausea and bumps in mouth Morphine And Related "Crazy Loopy" Nsaids Can't take due to kidney problems. Rifampin Liver complications (Please comment) Elevated LFT's Tetracycline Base Nausea and not feeling well Zyrtec [Cetirizine Hcl] Problems breathing, overly dry Most Recent Lab Results: Results for orders placed or performed in visit on 09/26/23 CULTURE, URINE, QUANTITATIVE Specimen: Urine, Clean Catch Result Value Ref Range Culture Growth No significant growth URINALYSIS WITH MICROSCOPIC EXAM Result Value Ref Range Color, Urine Light Yellow Colorless, Light Yellow, Yellow, Dark Yellow Clarity, Urine Clear Clear Glucose, Urine Negative Negative mg/dL Bilirubin, Urine Negative Negative Ketone, Urine Negative Negative mg/dL Specific [place], Urine 1.016 1.003 - 1.030 Blood, Urine Negative Negative pH, Urine 7.0 5.0 - 7.5 Units Protein, Urine Negative Negative mg/dL Urobilinogen, Urine Normal Normal mg/dL Nitrite, Urine Negative Negative Esterase, Urine Negative Negative RBC, Urine 0-2 0 - 2 /HPF WBC, Urine 3-5 (A) 0 - 2 /HPF Bacteria, Urine 0-25 0 - 25 /HPF *Note: Due to a large number of results and/or encounters for the requested time period, some results have not been displayed. A complete set of results can be found in Results Review. Sincerely, Jose M Seth MD 10/09/2023 [facility] Calendar (as of Visit date not found (in office), Visit date not found (telemedicine) ) Care needs Care needs Last completed Due next A1C blood sugar test 07/13/2022 07/13/2023 Bone Density 09/20/2021 09/20/2024 Diphtheria, tetanus & pertussis vaccines (3 - Td or Tdap) 03/07/2022 03/07/2032 As you look over the recommended services, be sure to check with your insurance company to determine what's covered. [employer] is a great tool that helps you review your medical record online, including test results, doctor notes and your health summary. You can also schedule appointments with me and other members of your care team, request prescription refills and ask for advice related to your medical conditions at [email or web address]. Patient Instructions - Fall Prevention (This education is for all patients over 65 regardless of symptoms) Remember to take your current medications as prescribed. In order to prevent falls, you are encouraged to: Exercise Utilize assistive/adaptive devices Avoid multifocal lenses when walking Avoid hazards in home Maintain a regular toileting schedule Any questions please contact our office. Preventing Falls in the Home (This education is for all patients over 65 regardless of symptoms) As you get older, falls are more likely. Thats because your reaction time slows. Your muscles and joints may also get stiffer, making them less flexible. Illness, medications, and vision changes can also affect your balance. A fall could leave you unable to live on your own. To make your home safer, follow these tips: Floors Put nonskid pads under area rugs Remove throw rugs Replace worn floor coverings Tack carpets firmly to each step on carpeted stairs. Put nonskid strips on the edges of uncarpeted stairs Keep floors and stairs free of clutter and cords Arrange furniture so there are clear pathways Clean up any spills right away Bathrooms Install grab bars in the tub or shower Apply nonskid strips or put a nonskid rubber mat in the tub or shower Sit on a bath chair to bathe Use bathmats with nonskid backing Lighting Keep a flashlight in each room Put a nightlight along the pathway between the bedroom and the bathroom Lin Patient Education Copyright 2008 - 2010 Lin except where otherwise noted Urinary Incontinence Plan of Care Documentation: (This education is for all patients over 65 regardless of symptoms) Current medications reconciled. Patient encouraged to: Practice kegal exercises Provide education materials Use the restroom every 2 hours throughout the day Limit caffeine, alcohol, spicy foods and acidic foods Keep a bladder diary Limit fluid intake 3-4 hours before bed Lose weight Prevent constipation Take fluid pills at a time when you can get to the bathroom quickly Control sugar better if diabetic Limit fluid intake to 60 oz. per day Wear support stockings (TEDs)if you have edema Domonique Juarez RN 10/09/2023 Kegel Exercises Kegel exercises dont require special clothing or equipment. Theyre easy to learn and simple to do. And if you do them right, no one can tell youre doing them, so they can be done almost anywhere. Your doctor, nurse, or physical therapist can answer any questions you have and help you get started. A Weak Pelvic Floor The pelvic floor muscles may weaken due to aging, and vaginal childbirth, injury, surgery, chronic cough, or lack of exercise. If the pelvic floor is weak, your bladder and other pelvic organs may sag out of place. The urethra may also open too easily and allow urine to leak out. Kegel exercises can help you strengthen your pelvic floor muscles so they can better support the pelvic organs and control urine flow. How Kegel Exercises Are Done Try each of the Kegel exercises described below. When youre doing them, try not to move your leg, buttock, or stomach muscles. While youre urinating, try to stop the flow of urine. Start and stop it as often as you can. Contract as if you were stopping your urine stream, but do it when youre not urinating. Tighten your rectum as if trying not to pass gas. Contract your anus, but dont move your buttocks. Helpful Hints Do your Kegels as often as you can. The more you do them, the faster youll feel the results. Pick an activity you do often as a reminder. For instance, do your Kegels every time you sit down. Tighten your pelvic floor before you sneeze, get up from a chair, cough, laugh, or lift. This protects your pelvic floor from injury and can help prevent urine leakage. Try to hold each Kegel for a slow count to five. You probably wont be able to hold them for thatlong at first, but keep practicing. It will get easier as your pelvic floor gets stronger. Eventually, special weights that you place in your vagina may be recommended to help make your Kegels even more effective. Lin Patient Education Copyright 2009 - 2010 Lin except where otherwise noted. Here are some helpful tips for your urinary incontinence: (This education is for all patients over 65 regardless of symptoms) Practice Kegel exercises Use the restroom every 2 hours throughout the day Limit caffeine, alcohol, spicy foods, and acidic foods Keep a bladder diary Limit fluid intake 3-4 hours before bed Lose weight Prevent constipation Take fluid pills at a time when can get to the bathroom quickly Control sugar better if diabetic Limit fluid intake to 60 oz. per day Any questions, please feel free to contact our office. documented in this encounter Progress Notes * Domonique Juarez RN - 10/09/2023 1:08 PM EDT Adult Annual Wellness Visit: Kathy Mccoy is a 77 year old female who presents for an Adult Annual Wellness Visit. Depression Screening: Did the patient complete the screening questionnaire for Depression? Yes Is the patient's total score for Depression 15 or greater? No, no further intervention needed, unless requested by patient. Did the patient answer positively to the suicide question? No, no further intervention needed, unless requested by patient. In general, compared to other people your age, what would you say that your health is? Good Ht Readings from Last 1 Encounters: 10/09/23 1.549 m (5' 1") Wt Readings from Last 1 Encounters: 10/09/23 84.9 kg (187 lb 1.6 oz) Body Mass Index: BMI Greater than 30 Body mass index is 35.35 kg/m. BP Readings from Last 1 Encounters: 10/09/23 110/60 Medical/Surgical/Family History Reviewed: Yes Past Medical History: Diagnosis Date Arthritis of knee BIPOLAR AFFEC, DEPR-MOD 06/29/2009 Bipolar I disorder, most recent episode depressed (HCC) Breast cancer (HCC) 02/26/2020 Invasive Ductal Carcinoma left breast Breast carcinoma, female, left (HCC) 04/01/2020 Cervicalgia 07/22/2009 Chronic bilateral low back pain with bilateral sciatica 12/16/2015 Chronic knee pain Chronic shoulder pain Diastolic dysfunction 06/18/2015 Endometrial cancer (HCC) 2012 Epiretinal membrane, right eye 08/20/2012 23G PPV/MP for ERM OD, Dr. Plasencia Esophageal reflux 06/29/2009 History of bipolar disorder 07/14/2022 History of elevated glucose History of endometrial cancer 04/07/2017 History of hypertension 07/12/2017 History of wound infection 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 Major depressive disorder, recurrent, unspecified (HCC) 09/11/2019 MGUS (monoclonal gammopathy of unknown significance) 04/15/2019 Mixed hyperlipidemia 11/06/2018 MRSA (methicillin resistant staph aureus) culture positive 09/02/2016 Nocturnal hypoxemia 06/18/2012 Nonrheumatic aortic valve stenosis 11/05/2018 Obstructive sleep apnea 06/18/2012 OCD (obsessive compulsive disorder) excessive checking to turn things off Other anxiety states Peripheral neuropathy 07/14/2022 Pulmonary arterial hypertension (HCC) Sleep apnea, obstructive Past Surgical History: Procedure Laterality Date ARTHROPLASTY KNEE TOTAL 01/[address] ríos BX LYMPH NODE DEEP AXIL Left 12/30/2020 BIOPSY LYMPH NODE DEEP AXILLARY OPEN performed by Vijaya Samano MD at OR [facility] CARPAL TUNNEL SURGERY 1996 left and right CATARACT SURGERY,COMPLEX Bilateral 10/2014 CHEMOTHERAPY 04/20/2020 completed 10/28/2020 neoadjuvant chemotherapy Adrianmycin & Cytoxan. Followed by 11 of 12 cycles of Taxol COLONOSCOPY W/ BIOPSY (RECTUM) 09/08/2010 polyp x1 , skin tags, path repeat in 5 years COLONOSCOPY, DIAGNOSTIC (RECTUM) 04/13/2016 normal/[facility] EGD, FLEXIBLE, DIAGNOSTIC 04/13/2016 acid reflux/[facility] EGD, FLEXIBLE, DIAGNOSTIC 02/24/2022 normal / ESOPHAGOGASTRODUODENOSCOPY (EGD), FLEXIBLE, TRANSORAL, DIAGNOSTIC performed by Rober Redding MD at ENDOSCOPY [facility] IDENTIFY SENTINEL NODE, RADIOACTIVE TRACER Left 12/30/2020 INJECTION PROCEDURE FOR IDENTIFICATION SENTINEL NODE performed by Vijaya Samano MD at OR [facility] INFORMATION 11/13/2012 11/13/2012 insertion of A-port - left shoulder [facility] Dr. Vijaya Samano MASTECTOMY, PARTIAL Left 12/30/2020 MASTECTOMY PARTIAL performed by Vijaya Samano MD at [facility] PROCEDURE - GENERAL PROCEDURE - GENERAL N/A 04/08/2020 iNSERTION OF VENOUS ACCESS(CHEST) RADIATION THERAPY Left 04/13/2021 6640 cGy to left breast, supraclavicular area, and axilla REMOVE GALLBLADDER 1985 REPAIR INITIAL INGUINAL HERNIA REDUCIBLE AGE 5 OR MORE 2006 TOTAL ABD HYSTERECTOMY W/WO REMOVAL OF TUBE(S) 09/24/2012 TOTAL ABDOMINAL HYSTERECTOMY WITH OR WITHOUT TUBES AND OVARIES performed by Jacey Jewell MD at [facility] TOTAL HIP REPLACEMENT & PROSTHESIS Left 09/02/2016 TREAT ECTOPIC , TUBE/OVARY 1963 US GUIDED BREAST BIOPSY LEFT Left 02/26/2020 Axillary biopsy- benign US GUIDED BREAST BIOPSY 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 Plasencia Family History Problem Relation Age of Onset Heart Disorder Mother triple bypass Blood Disorder Mother gout Eye Problems Mother Glaucoma Cervical Cancer Mother Lung cancer Father Heart Disorder Sister Murmur Asthma Sister No Known Problems Sister COPD Brother emphysema copd Emphysema Brother Lung cancer Brother w/ brain mets Heart disease Brother COPD Brother Lung cancer Brother Emphysema Brother Heart attack Brother Ear Problems Daughter Allergies Daughter Dairy allergy Stroke Uncle (Unspecified) Allergies Daughter Allergy to nuts and dairy Allergies Daughter Food allergies, gluten sensitivity Heart disease Brother Heart Disorder Brother Defibrillator Diabetes No significant family history Retinal detachment No significant family history Patient denies family hx of AMD retinal detachments or blindness Has patient ever had cancer? History of cancer, type: breast and endometrial Social History Tobacco Use Smoking status: Never Smokeless tobacco: Never Tobacco comments: No passive smoke exposures Substance Use Topics Alcohol use: No Vaping/E-Cigarette Use Vaping/E-Cigarette Use Never User Vaping/E-Cigarette Substances Nicotine No Other No Flavoring No THC No Cannabidiol (CBD) No Vaping/E-Cigarette Devices Disposable No Pre-filled or Refillable Cartridge No Refillable Tank No Pre-filled Pod No Tobacco/Alcohol screening completed today? Yes Hospital Care: Admissions (within the last year): Not Applicable ER within 30 days: No Does the patient have an Advance Directives/Living Will? Yes Last Physical Exam: Last physical exam: 05/2023 Does patient see primary provider regularly? Yes Does patient see other providers? Yes, Specialist Patient Care Team updated? Yes Review of patient's allergies indicates: Allergen Reactions Adhesive Tape Skin reaction , causing blister., including paper tape Codeine Nausea/vomiting Dicloxacillin Other (Please comment) Mouth sore Doxycycline Hyclate Nausea Erythromycin Base Nausea and bumps in mouth Morphine And Related "Crazy Loopy" Nsaids Can't take due to kidney problems. Rifampin Liver complications (Please comment) Elevated LFT's Tetracycline Base Nausea and not feeling well Zyrtec [Cetirizine Hcl] Problems breathing, overly dry Immunization History Administered Date(s) Administered COVID-19 mRNA, LNP-s, No Preserve, 2-Dose Series ([employer]) 07/06/2020, 08/10/2020, 02/18/2021 COVID-19, MRNA-LNP, 23-24, PF, 30 MCG/0.3 mL, 12 YRS AND ABOVE, IM ([facility]) 04/11/2023 Covid-19, Mrna, Lnp-s, Pf, Bivalent, 30 Mcg, IM, 12 yrs and above (Pfizer) 03/22/2022 Pneumococcal Conjugate Vacc, 13 Valent (Prevnar) 06/30/2014 Pneumococcal Polysaccharide PPV23 (Pneumovax) 08/12/2010 RSV Vac., Bivalent, Perfusion F, Pf,0.5 Ml (Abrysvo) 04/11/2023 Season Influenza, Quad, PF, Adjuvanted, 65+ Yrs, IM (FLUAD) 02/12/2020 Seasonal Influenza, PF, 6 M & above, IM , (FluLaval or Fluzone) 04/07/2017, 02/28/2018 Seasonal Influenza, Quadrivalent Hd (Fluzone Hd) 02/08/2021, 02/08/2022, 02/07/2023 Seasonal Influenza, Quadrivalent, No Preserve, IM 03/06/2015, 02/10/2016 Seasonal Influenza, Split, IIV3, With Preserve, Inj 05/03/2010, 04/14/2011, 02/02/2012, 02/13/2013,02/19/2014 Seasonal Influenza, Trivalent, Adjuvanted, 65+ yrs 03/11/2019 TDAP (age 10 and older)(Boostrix) 03/07/2022 TDAP (age 11 and older)(Adacel) 08/12/2010 Zoster Vaccine Recombinant (Shingrix) 02/13/2018, 06/18/2019 Current Outpatient Medications Medication Sig Dispense Refill Fexofenadine HCl 180 MG Oral Tablet Take 1 Tablet by mouth daily as needed for Allergies. Biotin 300 MCG TABS Take 300 mcg by mouth daily. Cholecalciferol (VITAMIN D3) 1000 UNITS CAPS Take 1 Capsule by mouth in the morning. oxygen GAS Use 2 L as directed every night at bedtime. With CPAP Oxybutynin Chloride ER 15 MG Oral Tablet Extended Release 24 Hour (DITROPAN XL) Take 1 Tablet by mouth in the morning. Acetaminophen 500 MG Oral Tablet (TYLENOL) Take 2 Tablets by mouth every 8 hours as needed. 100 Tab0 Probiotic Acidophilus BioBeads Oral Capsule Take 1 [...] 1 Capsule before bedtime. 270 Capsule 3 Pantoprazole Sodium 40 MG Oral Tablet Delayed Release (Protonix) TAKE 1 TABLET BY MOUTH EVERY MORNING, DO NOT CRUSH 100 Tablet 3 Fluticasone Propionate 50 MCG/ACT Nasal Suspension (Flonase) Administer 2 Sprays into each nostril in the morning. 16 g 3 Ondansetron HCl 4 MG Oral Tablet (Zofran) Take 1 Tablet by mouth every 12 hours as needed for Nausea. 30 Tablet 0 Atorvastatin Calcium 20 MG Oral Tablet (Lipitor) TAKE 1 TABLET BY MOUTH IN THE MORNING 90 Tablet 3 LORazepam 0.5 MG Oral Tablet (Ativan) Take 1 Tablet by mouth daily as needed for Anxiety. 10 Tablet0 FLUoxetine HCl 20 MG Oral Capsule (PROzac) Take 1 Capsule by mouth at bedtime. 30 Capsule 2 Divalproex Sodium ER 250 MG Oral Tablet Extended Release 24 Hour (Depakote ER) Take 3 Tablets by mouth every night at bedtime. 90 Tablet 2 PROCARE ADULT BRIEFS X-LARGE MISC use as needed for urinary incontinence 2 Box 11 LOPERAMIDE HCL 2 MG PO CAPS 1 CAPSULE TWICE DAILY NEEDED Incontinence Supply Disposable (BAN SKIN-CARING WASHCLOTHS) MISC Use as needed for incontinence. Dispense 2 tubs monthly DX R32 2 Each 5 Saline Nasal Termo 0.65 % Nasal Solution ([place] Nasal Termo) Two sprays in each nostril as needed for nasal dryness or congestion 50 mL 2 Hydrocortisone (Perianal) 2.5 % External Cream Administer into the rectum 2 times a day. For up to 1 week 30 g 0 COVID-19 mRNA Vaccine 12 years and above [employer] 30 MCG/0.3 ML IM SUSP Inject into a large muscle. 0.3 mL 0 Premarin 0.625 MG/GM Vaginal Cream (Estrogens Conjugated) Apply topically to affected area daily. As directed. (Patient not taking: Reported on 10/09/2023) 30 g 4 No current facility-administered medications for this visit. Patient Active Problem List Diagnosis Code Obstructive sleep apnea G47.33 Nocturnal hypoxemia G47.34 Diastolic dysfunction I51.89 Chronic bilateral low back pain with bilateral sciatica M54.42, M54.41, G89.29 History of endometrial cancer Z85.42 History of hypertension Z86.79 History of renal failure Z87.448 Chronic knee pain M25.569, G89.29 History of wound infection Z86.19 Nonrheumatic aortic valve stenosis I35.0 Mixed hyperlipidemia E78.2 MGUS (monoclonal gammopathy of unknown significance) D47.2 Gastroesophageal reflux disease without esophagitis K21.9 Major depressive disorder, recurrent, unspecified (HCC) F33.9 Prediabetes R73.03 Chronic diastolic (congestive) heart failure (HCC) I50.32 Isolated proteinuria R80.0 History of breast cancer Z85.3 PETER (generalized anxiety disorder) F41.1 Peripheral neuropathy G62.9 History of bipolar disorder Z86.59 Uncomplicated asthma J45.909 Urge incontinence N39.41 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 Yes Patient takes medications as prescribed? Yes Patient manages own medications: Yes Patient uses a pill box? Yes, refill(s) completed by self Dental Exam: No Eye Screening: Yes: Every 1-2 years Are you having trouble with hearing? No Do you use an assistive device to help your hearing? No Exercise Screening: exercises 3-4 times per week Nutrition Assessment:She and her daughters have started a weight loss plan together recently Pain Screening: Are you having any pain? Yes. Pain Scale: 5 out of 10; chronic low back and left hip pain Sleep Screening Tool 'STOP': Do you snore? No Do you feel fatigued during the day? No Do you wake up feeling like you haven't slept? No Have you been told you stop breathing at night? No Do you gasp for air or choke while sleeping? No Have you been told you have Sleep Apnea? Yes Do you have high blood pressure or are on medication(s) to control high blood pressure? No SCORE: If you check YES to two or more questions, make a referral for Obstructive Sleep Apnea Pt has a dx of JOO and wears CPAP at night Patient and Caregiver Support System: Patient lives alone Means of Transportation: Family transports and Friend transports Patient lives in an [facility] Community Resources: Personal Care Services. One of pts daughter's is her paid caregiver Functional Status and ADL Skills: Has patient ever had an amputation? No Functional Assessment: 90- Able to carry on normal activity, minor symptoms of disease Ambulation: Patient ambulates with assistive device. Walker Dressing: Gets clothes and dresses without any assistance: Independent Able to move freely in chair or bed including turning over: Independent Repositioning (bed or chair): Not applicable Transfers: Independent Toileting: Goes to bathroom, uses toilet, arranges clothes and returns without any assistance: Independent Toileting: continent of bowel, incontinent of bladder. Pt currently getting stimulation therapy through Urology Feeding: Self Bathing: Self; walk in shower Requires none assistance with ADLs. Instrumental ADL's: Shopping: Independent Housekeeping: Independent Handling Finances: Independent DME Vendor Name: Not Applicable Fall Risk Assessment: Can the patient demonstrate that she can stand from a sitting position? Yes Has the patient had a fall within the last 6 months? No Does the patient have a problem with her gait or balance? Yes Does the patient take 4 or more prescription medicines? Yes Does the patient use sedatives or narcotics? Yes Fall Risk Factors Present: Uses more than 4 medications Uses sedatives or narcotics Uses assistive devices Balance or gait disturbances Older than age 70 Qjm-Ld-qos-Go Test: Time began at 1300. Patient stood from sitting position and walked approximately 10 feet, returned and sat down. Total time for wln-wa-sak-go test was 10 seconds. Yoy-Mj-ekg-Go Test completed? Yes Gender Specific Preventative Plan: Health Maintenance Topic Date Due HbA1c 07/13/2023 DXA Scan 09/20/2024 DTaP,Tdap,and Td Vaccines (3 - Td or Tdap) 03/07/2032 Influenza Vaccine (FLU shot) Completed Zoster Vaccines Completed Pneumococcal Vaccine: 65+ Years Completed COVID-19 Vaccine Completed Hepatitis B Aged Out MENINGOCOCCAL (MENACTRA/MENVEO) Aged Out GARDASIL-HPV IMMUNIZATION SERIES Aged Out Diabetic Eye Exam Discontinued RETIRED - COLONOSCOPY-EVERY 5 YRS AGES 18-100 Discontinued Albumin/Creatinine Ratio Discontinued Diabetic Foot Exam Discontinued Follow Up/ Referrals/Handouts: No further action needed Routine general medical examination at a health care facility (Primary) Risk and functional assessment AWV completed today Mild intermittent asthma without complication - Med reconciliation completed and compliance discussed. - pt to continue present medications. Prediabetes -continue following with pcp Chemotherapy-induced neuropathy (HCC) Peripheral neuropathy - Med reconciliation completed and compliance discussed. - pt to continue present medications. 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 - pt to continue present medications. Mixed hyperlipidemia - Med reconciliation completed and compliance discussed. - pt to continue present medications. Lipid Panel Results: Results for orders placed or performed in visit on 07/13/22 LIPID PANEL WITH DIRECT LDL IF TG IS HIGH Result Value Ref Range Triglycerides 46 <=174 mg/dL Cholesterol 159 <200 mg/dL HDL Cholesterol 74 >49 mg/dL Non-HDL Cholesterol 85 <=159 mg/dL LDL Cholesterol 76 <=129 mg/dL History of endometrial cancer History of breast cancer -continue following with hem/onc Gastroesophageal reflux disease without esophagitis - Med reconciliation completed and compliance discussed. - pt to continue present medications. PETER (generalized anxiety disorder) - Med reconciliation completed and compliance discussed. - pt to continue present medications. Chronic diastolic (congestive) heart failure (HCC) -continue following with Cardiology Chronic bilateral low back pain with bilateral sciatica - Med reconciliation completed and compliance discussed. - pt to continue present medications. Follow Up: Return in 1 year (on 10/08/2024) for 12 month Subsequent Adult Wellness Visit. | For: 12 month Subsequent Adult Wellness Visit | Check-out note: 12 month Subsequent Adult Wellness Visit Would patient like to schedule next AWV visit? Yes Domonique Juarez RN AD8 Dementia Screening Interview Person answering questions: patient Remember, "Yes, a change" indicates that there has been a change in the last several years caused by cognitive (thinking and memory) problems 1. Problems with judgement (eg: problems making decisions, bad financial decisions, problems with thinking). No (0) 2. Less interest in hobbies/activities. No (0) 3. Repeats the same things over and over (questions, stories, or statements). No (0) 4. Trouble learning how to use a tool, appliance, or gadget (eg: VCR, computer, microwave, remote control). No (0) 5. Forgets correct month or year. No (0) 6. Trouble handling complicated financial affairs (eg: balancing checkbook, income taxes, paying bills). No (0) 7. Trouble remembering appointments. No (0) 8. Daily problems with thinking and/or memory. No (0) TOTAL AD8: 0 - AD8 Dementia Screening Score The final score is a sum of the number items marked "Yes, A Change". 0 - 1: Normal cognition; 2 or greater: Cognitive impairments is likely to be present - further testing requiredUrinary Incontinence Plan of Care Documentation: (This education is for all patients over 65 regardless of symptoms) Current medications reconciled. Patient encouraged to: Practice kegal exercises Provide education materials Use the restroom every 2 hours throughout the day Limit caffeine, alcohol, spicy foods and acidic foods Keep a bladder diary Limit fluid intake 3-4 hours before bed Lose weight Prevent constipation Take fluid pills at a time when you can get to the bathroom quickly Control sugar better if diabetic Limit fluid intake to 60 oz. per day Wear support stockings (TEDs)if you have edema Domonique Juarez, MARICEL 10/09/2023 documented in this encounter Miscellaneous Notes * Pt Handout (on AVS) - Domonique Juarez RN - 10/09/2023 1:45 PM EDT [address]005 Preventing Falls: How to Prepare and What to Do Falling is not something you want to think about. But it can make a big difference to plan ahead. If you're prepared, you'll know how to get help. And you'll be less likely to panic if you fall. Thismeans you'll be able to do what's needed to get help right away. How to prepare Have someone check on you daily, either in person or by phone. Keep a list of emergency numbers near the phone. Always have a way to call for help. Keep a cell phone with you at all times. Or talk with your healthcare provider about how to set up a home monitoring service. This involves wearing a small device around your neck or wrist. If you fall, you can press the button on the device. This alerts emergency responders. Talk with your healthcare provider about an exercise program that's right for you. Regular exercise may reduce the risk of falling and the risk for injury related to a fall. Have good lighting in your home. Don't use throw rugs, because they can raise your risk of tripping and falling. Add grab bars in the bathroom to help reduce the risk of falling. Small changes canmake your home safer. Talk with your healthcare provider about making your home safer. What to do if you fall Above all, try to stay calm: If you start to fall, try to relax your body. This will reduce the impact of the fall. After you fall, press your monitor button, or use your phone to call for help. Don't ramirez to get up. First, make sure you're not hurt. Roll onto your side, then crawl to a chair. Pull yourself up onto the chair slowly. Get checked if you struck your head, lost consciousness, were confused afterward, or have any other concerns for injury. Tell your healthcare provider that you fell. They can check you for injuries as needed, try to determine what made you fall, and help prevent you from falling again. A note to family and friends If you're with a loved one when they start to fall, don't try to stop the fall. Ease the person to the floor carefully, so neither of you gets hurt. Don't leave the person alone. And don't try to move them, especially if they may have hurt their head or neck. Check for injuries. If help is needed right away, call 911. Last Reviewed Date: 04/28/202219999474-5443 [employer]. All rights reserved. This information is not intended as a substitute for professional medical care. Always follow your healthcare professional's instructions. * Pt Handout (on AVS) - Domonique Juarez RN - 10/09/2023 1:45 PM EDT Images from the original note were not included. 75815 Exercises to Prevent Falls Certain types of exercises may help make you less likely to fall. Try the ones below or do other exercises that your healthcare provider suggests. Depending on your health, you may need to start slowly. Don't let that stop you. Even small amountsof exercise can help you. Talk with your healthcare provider before starting any exercise program. Improve balance Many types of exercise can help improve balance. Laurel chi and yoga are good examples. Here's anotherone to try. You can do it anytime and almost anywhere. Stand next to a counter or solid support. Push yourself up onto your tiptoes. Hold for 5 seconds. If you start to lose your balance, hold on to the counter. Rest and repeat 5 times. Work up to holding for 20 to 30 seconds, if you can. Increase flexibility Being more flexible makes it easier for you to move around safely. Try exercises like the seatedhamstring stretch. o Sit in a chair and put one foot on a stool. o Straighten your leg and reach with both hands down either side of your leg. Reach as far down your leg as you can. o Hold for about 20 seconds. o Go back to the starting position. Then repeat 5 times. Switch legs. o o Build strength o Resistance exercises help build strength. You can do them without equipment. Or you can use weights, elastic bands, or special machines. One such exercise is called the biceps curl. You can hold a 1-pound weight or even a can of soup. Do this exercise at least 3 times a week. Strive for every day. Sit up straight in a chair. Keep your elbow close to your body and your wrist straight. Bend your arm, moving your hand up to your shoulder. Then slowly lower your arm. Repeat 5 times. Switch to the other arm. Build your staying power Aerobic exercises make your heart and lungs stronger so you can keep moving longer. Walking and swimming are 2 of the best types of exercises you can do. Using a stationary bike is great, too. Find an aerobic exercise that you enjoy. Start slowly and build up. Even 5 minutes is helpful. Aim for a goal of 30 minutes, at least 3 times a week. You don't have to do 30 minutes in 1 session. Break it up and walk a little throughout the day. Starting out safely and slowly Start easy. Slowly work up to doing more. Talk with your healthcare provider about the best exercises for you. Call senior centers or health clubs about exercise programs. If needed, have a family member watch you walk every so often to check your stability. Exercise with a friend. Choose an activity you both enjoy. Be sure to gently warm up and cool down. Drink fluids, such as water, to stay hydrated. If your provider recommended that you limit fluids, ask them how much is OK to drink while exercising. Consider laurel chi or yoga to strengthen your balance. Try exercises that you can do anytime, anywhere. Here are 2 examples. Have someone with you whenyou first try these: o Practice walking by placing one foot right in front of the other. o Stand up and sit down 10 times. Repeat this throughout the day. Last Reviewed Date: 03/29/202219993076-9810 [employer]. All rights reserved. This information is not intended as a substitute for professional medical care. Always follow your healthcare professional's instructions. documented in this encounter Plan of Treatment Upcoming Encounters Date Type Department Care Team (Late st Contact Info) Description 10/11/2023 2:30 PM EDT Imaging Radiology [facility] 1st Floor, [place] [address] [facility] [place] [address] 10/11/2023 3:00 PM EDT Imaging Radiology [facility] [address] [place] [address] 10/12/2023 2:00 PM EDT Nurse Only Urology, [facility] [address] [facility] [place] [address] [employer], Nurse Urology [facility] [address] [facility] [place] [address] 10/19/2023 2:30 PM EDT Telemedicine Nutrition & Weight Management, [facility] [address] [facility] [address] Maria E Cazares RDN [address] [facility] [place] [address] 10/27/2023 11:00 AM EDT Office Visit Sleep Disorders Ctr [facility] [address] [facility] [place] [phone] Charmaine Mckeon DO [address] [place] [address] 11/06/2023 3:00 PM EDT Office Visit Psychiatry, Brian Massye [address] [place] [address] Paty Haynes CRNP [address] [place] [address] 12/01/2023 10:00 AM EDT Laboratory Laboratory [facility] [address] [facility] [place] [id number] [facility] [address] [facility] [place] [address] 12/08/2023 2:30 PM EDT Office Visit Hematology/Oncology [facility] [address] [facility] [place] [phone] Marietta Salazar CRNP [address] [facility] [place] [address] 12/11/2023 10:45 AM EDT Office Visit Urology, [facility] [address] [facility] [place] [address] Mendel Macedo MD [address] [address] [place] [address] 12/13/2023 1:30 PM EDT Cardiac Studies Cardiac Studies, [facility] [address] [facility] [place] [address] 12/21/2023 2:40 PM EDT Office Visit General Internal Medicine [facility] [address] [facility] [place] [address] Jose M Seth MD [address] [facility] [place] [address] 01/25/2024 11:00 AM EDT Telemedicine Genetics HemOn, [facility] [address] [place] [address] Tonya Jovel, MS [address] [facility] [place] [address] Health Maintenance Due Date Last Done Comments [...] as of this encounter Visit Diagnoses Diagnosis Routine general medical examination at a health care facility- Primary Risk and functional assessment Screening for unspecified condition Mild intermittent asthma without complication Unspecified asthma Prediabetes Other abnormal glucose Peripheral neuropathy Unspecified hereditary and idiopathic peripheral neuropathy Obstructive sleep apnea Obstructive sleep apnea (adult) (pediatric) 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) Other specified episodic mood disorder Mixed hyperlipidemia History of endometrial cancer Personal history of malignant neoplasm of other parts of uterus History of breast cancer Personal history of malignant neoplasm of breast Gastroesophageal reflux disease without esophagitis Esophageal reflux PETER (generalized anxiety disorder) Generalized anxiety disorder Diastolic dysfunction Heart disease, unspecified Chronic diastolic (congestive) heart failure (HCC) 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 Care Teams Silver Solderer Relationship Specialty Start Date End Date Jose M Seth MD [address] [facility] [place], [place] [address] PCP - General Internal Medicine 11/21/11 documented as of this encounter
--- OUTSIDE RECORDS SUMMARY | 2023-12-07 12:14 | External Medical Summary | Summary of Care ---
Author Name Unknown Organization [facility] Address [address] [place] [address] Phone [phone] Care Team Providers Care Paunch Trimmer Name Role Phone Jose M Seth MD Primary Care Provider + Reason for Visit * Reason Comments Follow Up Encounter Details Date Type Department Care Team (Late st Contact Info) Description 10/27/2023 11:00 AM EDT [facility] [place] [address] [place] [address] Charmaine Mckeon DO [address] [facility] [place] [id number] Obstructive sleep apnea*; Nocturnal hypoxemia Allergies Active Allergy Reactions Criticality Noted Date [...] needed. 100 Tab 04/15/2020 Active Saline Nasal [place] 0.65 % Nasal Solution (Beadle Nasal [place]) Two sprays in each nostril as [...] Jose M Seth MD Pharm[facility]: [facility] [...] mRNA, LNP-s, No Pre serve, 2-Dose Series (Genbook) 02/18/2021,08/10/2020,07/06/2020 COVID-19, MRNA-LNP, 23-24, P F, 30 MCG/0.3 mL, 12 YRS AND ABOVE, IM ([facility]) 04/11/2023 Covid-19, Mrna, Lnp-s, Pf, B ivalent, [...] as of this encounter Progress Notes * Charmaine Mckeon, DO - 10/27/2023 11:09 AM EDT Sleep Medicine Follow-Up Clinic Note TELEMEDICINE ENCOUNTER Patient location: HOME. I was in a hospital or clinic location. After connecting through [employer],patient was verified with two unique identifiers. Patient (or authorized legal representative phlebotomy services) was then informed that this was a Telemedicine visit and being conducted confidentially over secure lines. Methods to assure confidentiality were taken. Patient acknowledged consent and understanding of pr ivacy and security of the Telemedicine visit. The patient agreed to participate. HISTORY: Ms. Kathy Mccoy is a 78 year old female w/ a pmh of CHF, anxiety, OCD, diastolic dysfunction, endometrial cancer, peripheral neuropathy, and prediabetes who was followed-up with today regarding Obstructive Sleep Apnea and Nocturnal Hypoxemia. Ms. Mccoy has received her new PAP. Unfortunately, she has difficulty filling the water chamber,and it often leaks. She had tried a [employer]ICIST [employer] EARTH (small), but the pillows were too snug in her nostrils and caused discomfort. She has since reverted back to using her old, more comfortable mask (with new cushion). However, has another new mask option to try. Before trying she wanted to get clearance that itwas safe for her to use headgear with magnetic closures given that she has a port. Clearance was obtained. Denies aerophagia and feeling the pressure is too much or too little. Diagnostic Polysomnogram 06/01/12: BMI 39.21 AHI 10.7 (CMS/medicare criteria used) RDI 10.7 Min O2 80 % <89% O2 127.8 min(s) PLMI 34.4 Diagnostic Polysomnogram 02/05/15: BMI 38.08 AHI 8.9 ([facility]/medicare criteria used) RDI 9.5 Min O2 79 % <89% O2 232.9 min(s) PLMI 14 Titration Polysomnogram 04/13/15: BMI 38.08 PAP 4-7cmH20 7 cmH20 AHI 0 (REM sleep included), min O2 87%, time less than 89% 0.3 mins [place] Sleepiness Scale Question 10/26/2023 2:31 PM EDT - Filed by Laquita Larson LPN What is the chance you will doze off in the following situation? Sitting and reading Moderate chance of dozing Watching TV Moderate chance of dozing Sitting inactive in a public place, such as a theater or meeting No chance of dozing As a passenger in a car for an hour without a break No chance of dozing Lying down to rest in the afternoon when circumstances permit High chance of dozing When sitting and talking to someone No chance of dozing When sitting quietly after lunch without alcohol No chance of dozing In a car, while stopped for a few minutes in traffic No chance of dozing Score (range: 0 - 24) 7 PAP Compliance: Report date: 09/25/23 to 10/24/23 % total days used: 97% % days used > 4 hours: 80% Average hours a day: 6 hours 25 mins Large leak: 55.1 AHI: 8.7/hr 95% pressure: 11.3 cmH20 Equipment: DME Provider is AHP 7-18 cmH20 2 LPM bled in Patient Active Problem List Diagnosis Obstructive sleep apnea Nocturnal hypoxemia Diastolic dysfunction Chronic bilateral low back pain with bilateral sciatica History of endometrial cancer History of hypertension History of renal failure Chronic knee pain History of wound infection Nonrheumatic aortic valve stenosis Mixed hyperlipidemia MGUS (monoclonal gammopathy of unknown significance) Gastroesophageal reflux disease without esophagitis Major depressive disorder, recurrent, unspecified (HCC) Prediabetes Chronic diastolic (congestive) heart failure (HCC) Isolated proteinuria History of breast cancer PETER (generalized anxiety disorder) Peripheral neuropathy History of bipolar disorder Uncomplicated asthma Urge incontinence Chemotherapy-induced neuropathy (HCC) Mild intermittent asthma without complication 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 Ondansetron HCl 4 MG Oral Tablet (Zofran) Take 1 Tablet by mouth every 12 hours as needed for Nausea. 30 Tablet 0 LORazepam 0.5 MG Oral Tablet (Ativan) Take 1 Tablet by mouth daily as needed for Anxiety. 10 Tablet0 Fluticasone Propionate 50 MCG/ACT Nasal Suspension (Flonase) Administer 2 Sprays into each nostril in the morning. 16 g 3 Pantoprazole Sodium 40 MG Oral Tablet Delayed Release (Protonix) TAKE 1 TABLET BY MOUTH EVERY MORNING, DO NOT CRUSH 100 Tablet 3 Divalproex Sodium ER 250 MG Oral Tablet Extended Release 24 Hour (Depakote ER) Take 3 Tablets by mouth every night at bedtime. 90 Tablet 2 FLUoxetine HCl 20 MG Oral Capsule (PROzac) Take 1 Capsule by mouth at bedtime. 30 Capsule 2 Atorvastatin Calcium 20 MG Oral Tablet (Lipitor) TAKE 1 TABLET BY MOUTH IN THE MORNING 90 Tablet 3 COVID-19 mRNA Vaccine 12 years and above Genbook 30 MCG/0.3 ML IM SUSP Inject into a large muscle. 0.3 mL 0 Gabapentin 300 MG Oral Capsule (Neurontin) Take 1 Capsule by mouth in the morning and 1 Capsule at noon and 1 Capsule before bedtime. 270 Capsule 3 Diclofenac Sodium 1 % External Gel (Voltaren) Apply topically to affected area 4 times a day. Applyto knee. 150 g 0 Probiotic Acidophilus BioBeads Oral Capsule Take 1 Capsule by mouth in the morning and 1 Capsule atnoon and 1 Capsule in the evening. Take with meals. Hydrocortisone (Perianal) 2.5 % External Cream Administer into the rectum 2 times a day. For up to 1 week 30 g 0 Saline Nasal [place] 0.65 % Nasal Solution (Beadle Nasal [place]) Two sprays in each nostril as needed for nasal dryness or congestion 50 mL 2 Acetaminophen 500 MG Oral Tablet (TYLENOL) Take 2 Tablets by mouth every 8 hours as needed. 100 Tab0 Oxybutynin Chloride ER 15 MG Oral Tablet Extended Release 24 Hour (DITROPAN XL) Take 1 Tablet by mouth in the morning. oxygen GAS Use 2 L as directed every night at bedtime. With CPAP Incontinence Supply Disposable (BAN SKIN-CARING WASHCLOTHS) MISC Use as needed for incontinence. Dispense 2 tubs monthly DX R32 2 Each 5 Biotin 300 MCG TABS Take 300 mcg by mouth daily. Cholecalciferol (VITAMIN D3) 1000 UNITS CAPS Take 1 Capsule by mouth in the morning. Fexofenadine HCl 180 MG Oral Tablet Take 1 Tablet by mouth daily as needed for Allergies. LOPERAMIDE HCL 2 MG PO CAPS 1 CAPSULE TWICE DAILY NEEDED PROCARE ADULT BRIEFS X-LARGE MISC use as needed for urinary incontinence 2 Box 11 Premarin 0.625 MG/GM Vaginal Cream (Estrogens Conjugated) Apply topically to affected area daily. As directed. (Patient not taking: Reported on 10/26/2023) 30 g 4 No current facility-administered medications for this visit. PHYSICAL EXAM: Unable to attain full exam due to nature of encounter Constitutional: Alert, oriented in no acute distress Skin: no markings on face where mask fits Chest: Normal respiratory effort at rest Neuro: Normal speech and comprehension Psych: Appropriate mood and affect ASSESSMENT/PLAN: Obstructive Sleep Apnea Nocturnal Hypoxemia Encouraged continued use of PAP every night, all night and for naps. Continue PAP at current setting Obtain download in 1-2 months to assess for improvement in leak with new mask If leak improved but residual AHI >5, consider pressure adjustment Recommended routine cleaning and change of supplies as needed. Avoid driving, operating heavy machinery or engaging in any activity that requires full alertness if feeling sleepy, drowsy or otherwise impaired. Consider overnight oximetry on PAP and 2 LPM in future Follow-up with Sleep Medicine in 4-6 months. Charmaine Mckeon DO This visit was completed via real time teleheath video connection. All issues as above were discussed and addressed, and a limited physical exam was performed. If it was felt that the patient should be evaluated in clinic then they were directed there. The patient verbally consented to visit. I spent a total of 30-39 minutes (exact time 30 mins) on the date of service in preparation, delivery, and documentation of the care provided to Kathy Mccoy excluding any time spent in the performance of separately billed services. documented in this encounter Nursing Notes * Laquita Larson LPN - 10/26/2023 2:32 PM EDT Pt for video f/u JOO on CPAP. [facility] [place] Sleepiness Scale Question 10/26/2023 2:31 PM EDT - Filed by Laquita Larson LPN What is the chance you will doze off in the following situation? Sitting and reading Moderate chance of dozing Watching TV Moderate chance of dozing Sitting inactive in a public place, such as a theater or meeting No chance of dozing As a passenger in a car for an hour without a break No chance of dozing Lying down to rest in the afternoon when circumstances permit High chance of dozing When sitting and talking to someone No chance of dozing When sitting quietly after lunch without alcohol No chance of dozing In a car, while stopped for a few minutes in traffic No chance of dozing Score (range: 0 - 24) 7 documented in this encounter Plan of Treatment Upcoming Encounters Date Type Department Care Team (Late st Contact Info) Description 10/27/2023 1:10 PM EDT [facility]icine [facility] [address] [place] [address] Maria E Cazares RDN [address] [place] [address] 10/31/2023 1:00 PM EDT [facility] [address] [place] [address] [place] Nurse Urology [place] [address] [place] [address] 11/06/2023 3:00 PM EDT Office Visit Psychiatry, Brian Massey [address] [place] [address] [address] Paty Haynes CRNP [address] [place] [address] [address] 12/01/2023 10:00 AM EDT Laboratory Laboratory State Ailyn Cevallos [address] [place] [address] [phone] Rosanna Massey [facility] [address] [address] 12/08/2023 2:30 PM EDT Office Visit Hematology/Oncology [facility] 200 [facility] [place] [phone] Marietta Salazar CRNP 400 [facility] [place] [id number] 12/11/2023 10:45 AM EDT Office Visit Urology, [facility] [address] Mendel Macedo MD [address] [address] [place] [address] 12/13/2023 1:30 PM EDT Cardiac Studies Cardiac Studies, [facility] 132 [facility] [address] 12/21/2023 2:40 PM EDT Office Visit General Internal Medicine [facility] 200 [facility] [place] [address] Jose M Seth MD 200 [facility] [place] [address] 01/25/2024 11:00 AM EDT [facility]icine [facility] [place] [address] Tonya Jovel, MS 132 [place] [address] Health Maintenance Due Date Last Done Comments [...] as of this encounter Visit Diagnoses Diagnosis Obstructive sleep apnea- Primary Obstructive sleep apnea (adult) (pediatric) Nocturnal hypoxemia Hypoxemia documented in this encounter Advance Directives * Full Code (Latest Code Status on File) Date Activated Date Inactivated Comments 09/24/2012 8:15 PM 10/02/2012 7:35 PM This order re flects the patients wishes and were consensually agreed upon. Care Teams Paunch Trimmer Relationship Specialty Start Date End Date Jose M Seth MD [address] [facility] [place] [address] PCP - General Internal Medicine 11/21/11 documented as of this encounter
--- OUTSIDE RECORDS SUMMARY | 2023-12-07 12:14 | External Medical Summary | Summary of Care ---
Author Name Unknown Organization [facility] Address [address] [place] [address] Phone [phone] Care Team Providers Care Floor Nurse Name Role Phone Jose M Seth MD Primary Care Provider + Reason for Visit * Reason Onset Date Comments Advice 10/12/2023 Zofran for cyndi car Encounter Details Date Type Department Care Team (Late st Contact Info) Description 10/12/2023 Telephone General Internal Medicine [facility] [address] [place] [address] Jose M Seth MD [address] [place] [address] Advice (Crys for travelling) Allergies Active Allergy Reactions Criticality Noted Date [...] 100 Tab 0 0 Active Saline Nasal [place] 0.65 % Nasal Solution (Chambers Nasal [place]) Two sprays in each nostril as needed [...] before bedtime. 270 Capsule 3 3 Active Premarin 0.625 MG/GM Vaginal Cream [...] for Anxiety. 10 Tablet 0 4 Active Ondansetron HCl 4 MG Oral Tablet (Zofran) Take 1 Tablet by mouth every 12 hours as needed for Nausea. 30 Tablet 0 4 Active Ondansetron HCl 4 MG Oral Tablet (Zofran) Take 1 Tablet by mouth every 12 hours as needed for Nausea. 30 Tablet 0 3 10/12/19 24 Discontinu ed(Refill) documented as of this [...] PSG -- AHI 10.7, <89% 128 mins [facility] Returned machine Jun 2013 Nocturnal hypoxemia 06/18/2012 Overview: 2 LPM [facility] Chronic knee pain History of [...] Jose M Seth MD Pharmacy: [facility] 08/09/2013 12/16/2015 Dementia 07/19/2013 [...] mRNA, LNP-s, No Pre serve, 2-Dose Series ([employer]) 02/18/2021,08/10/2020,07/06/2020 COVID-19, MRNA-LNP, 23-24, P F, 30 MCG/0.3 mL, 12 YRS AND ABOVE, IM [facility] 04/11/2023 Covid-19, Mrna, Lnp-s, Pf, B ivalent, [...] encounter Miscellaneous Notes * Telephone Encounter - Sherrie Deng LPN - 10/12/2023 10:24 AM EDT Contacted patient to confirm pharmacy. Pended. * Telephone Encounter - Petros Olguin OSA - 10/12/2023 8:44 AM EDT Patient calling in to request a refill for Zofran. Patient is leaving to go out of town tomorrow and is requesting a ramirez on this medication request. Thank You documented in this encounter Plan of Treatment Upcoming Encounters Date Type Department Care Team (Late st Contact Info) Description 10/12/2023 2:00 PM EDT [facility] [address] [place] [address] [place] Nurse Urology [place] [address] [place] [address] 10/19/2023 2:30 PM EDT Telemedicine Nutrition & Weight Management, [facility] 132 [facility] [place] [address] Maria E Cazares RDN 132 [facility] [place] [address] 10/27/2023 11:00 AM EDT Office Visit Sleep Disorders Ctr [facility] [address] [employer] [place] [phone] Charmaine Mckeon DO 132 [facility] [place] [address] 11/06/2023 3:00 PM EDT Office Visit Psychiatry, [facility] [address] [place] [address] Paty Haynes CRNP 200 [facility] [place] [address] 12/01/2023 10:00 AM EDT Laboratory Laboratory [facility] 200 [facility] [place] [phone] Shilpa Bronson [facility] 200 [facility] [place] [address] 12/08/2023 2:30 PM EDT Office Visit Hematology/Oncology [facility] 200 [facility] [place] [phone] Marietta Salazar CRNP 400 [facility] [place] [id number] 12/11/2023 10:45 AM EDT Office Visit Urology, [facility] 132 [facility] [place] [address] Mendel Macedo MD [address] [address] [place] [id number] 12/13/2023 1:30 PM EDT Cardiac Studies Cardiac Studies, [facility] [address] [place] [address] 12/21/2023 2:40 PM EDT Office Visit General Internal Medicine [facility] 200 [facility] [place] [address] Jose M eSth MD 200 [facility] [place] [address] 01/25/2024 11:00 AM EDT Telemedicine Genetics HemOnc, [facility] [address] [place] [address] Tonya Jovel, MS [address] [place] [address] Health Maintenance Due Date Last Done Comments [...] filedocumented as of this encounter Advance Directives Latest Code Status on File Code Status Date Activated Date Inactivated Comments Full Code 09/24/2012 8:15 PM 10/02/2012 7:35 PM This o rder reflects the patients wishes and were consensually agreed upon. Care Teams Floor Nurse Relationship Specialty Start Date End Date Jose M Seth MD 200 [place] [address] PCP - General Internal Medicine 11/21/11 documented as of this encounter
--- OUTSIDE RECORDS SUMMARY | 2023-12-07 12:14 | External Medical Summary | Summary of Care ---
Author Name Unknown Organization [facility] Address [address] [place] [address] Phone [phone] Care Team Providers Care Teacher Learning Disabled Name Role Phone Jose M Seth MD Primary Care Provider + Reason for Visit * Reason Onset Date Comments Advice 10/11/2023 Medication Refil l Encounter Details Date Type Department Care Team (Late st Contact Info) Description 10/11/2023 Telephone General Internal Medicine [facility] 200 [facility] [place] [address] Jose M Seth MD 200 [place] [address] Advice (Medication Refill) Allergies Active Allergy Reactions [...] 100 Tab 0 0 Active Saline Nasal [place] 0.65 % Nasal Solution ([place] Nasal [place]) Two sprays in each nostril as needed [...] PSG -- AHI 10.7, <89% 128 mins [facility] Returned machine Jun 2013 Nocturnal hypoxemia 06/18/2012 Overview: 2 LPM [facility] Chronic knee pain History of wound [...] 10/15/13 PCP: Jose M Seth MD [facility] 08/09/2013 12/16/2015 Dementia 07/19/2013 2017 Encounter [...] mRNA, LNP-s, No Pre serve, 2-Dose Series (Enclarity) 02/18/2021,08/10/2020,07/06/2020 COVID-19, MRNA-LNP, 23-24, P F, 30 MCG/0.3 mL, 12 YRS AND ABOVE, IM ([employer]) 04/11/2023 Covid-19, Mrna, Lnp-s, Pf, B ivalent, [...] 10/12/2023 2:00 PM EDT [facility], [facility] [address] [place] [address] [place] Nurse Urology [facility] [address] [place] [address] 10/19/2023 2:30 PM EDT Telemedicine Nutrition & Weight Management, [facility] [address] [place] [address] Maria E Cazares RDN [address] [place] [address] 10/27/2023 11:00 AM EDT Office Visit Sleep Disorders Ctr [facility] [address] [facility] [place] [phone] Charmaine Mckeon DO [address] [place] [address] 11/06/2023 3:00 PM EDT Office Visit Psychiatry, [facility] [address] [place] [address] Paty Haynes CRNP [address] [place] [address] 12/01/2023 10:00 AM EDT Laboratory Laboratory [facility] Shilpa [place] [address] [place] [phone] Rosanna Massey [facility] 200 [address] [facility] [place] [address] 12/08/2023 2:30 PM EDT Office Visit Hematology/Oncology [place] Shilpa [place] [address] [place] [phone] Marietta Salazar CRNP 400 [facility] [place] [address] 12/11/2023 10:45 AM EDT Office Visit Urology, [facility] 132 [place] [address] Mendel Macedo MD 27 [facility] [address] [place] [address] 12/13/2023 1:30 PM EDT Cardiac Studies Cardiac Studies, [facility] 132 [place] [address] 12/21/2023 2:40 PM EDT Office Visit General Internal Medicine [facility] 200 [facility] [place] [address] Jose M Seth MD 200 [facility] [place] [address] 01/25/2024 11:00 AM EDT [facility]medicine [facility] [place] [address] Tonya Jovel, MS 132 [place] [address] Health Maintenance Due Date Last Done Comments [...] and were consensually agreed upon. Care Teams Teacher Learning Disabled Relationship Specialty Start Date End Date Jose M Seth MD 200 [place] [address] PCP - General Internal Medicine 11/21/11 documented as of this encounter
--- OUTSIDE RECORDS SUMMARY | 2023-12-07 12:15 | External Medical Summary ---
Author Name Unknown Address Unknown Organization K01:[facility] [place] [address] [facility] [address]. [place] [id number] Laboratory Report Ordering Provider Test Date Status PIERRE IRBY 09/26/2023 15:18:56 Final Observation Date Value Abnormality Reference (Units) Status Bacteria identified in Specimen by Culture 09/26/2023 15:18:56 No significant growth Final Test: Culture, Urine, Quanti tative
Specimen Source: Urine, Clean Catch
Specimen Type: Urine
Specimen Date: 09/26/2023 3:18 PM
Result Date: 09/27/2023 4:23 PM
Result Status: Final result
Resulting Lab: [facility]
[address]
[facility] [address]

CULTURE

No significant growth

null Performing Location [facility] [address] [facility] [address]
--- OUTSIDE RECORDS SUMMARY | 2023-12-07 12:15 | External Medical Summary | Summary of Care ---
Author Name Unknown Organization [facility] Address [address] [place] [address] Phone [phone] Care Team Providers Care Sliver Machine Operator Name Role Phone Jose M Seth MD Primary Care Provider + Encounter Details Date Type Department Care Team (Late st Contact Info) Description 09/26/2023 2:00 PM EDT Nurse Only Urology, [place]am [place] [address] [place] [address] AlvarezNurse lily Urology [facility] [address] [place] [address] Allergies Active Allergy Reactions Criticality Noted Date [...] as of this encounter (statuses as of 09/26/2023) Medications Medication Sig Dispensed Refills Start Date [...] by mouth in the morning. 0 Active ferrous sulfate (FEOSOL) 325 (65 FE) MG Tablet Take 1 Tablet by mouth every other day. 0 Active Incontinence Supply Disposable (BAN SKIN-CARING [...] 100 Tab 0 04/15/2020 Active Saline Nasal [place] 0.65 % Nasal Solution (Wallace Nasal [place]) Two sprays in each nostril as needed [...] before bedtime. 270 Capsule 3 10/26/2022 Active Pantoprazole Sodium 40 MG Oral Tablet Delayed Release (Protonix) TAKE 1 TABLET BY MOUTH EVERY MORNING, DO NOT CRUSH 100 Tablet 3 11/11/2022 Active Fluticasone Propionate 50 MCG/ACT Nasal Suspension (Flonase)Indications :Seasonal allergic rhinitis, unspecified trigger Administer 2 Sprays into each nostril in the morning. 16 g 3 01/31/2023 Active Ondansetron HCl 4 MG Oral Tablet (Zofran) Take 1 Tablet by mouth every 12 hours as needed for Nausea. 30 Tablet 0 05/01/2023 Active Premarin 0.625 MG/GM Vaginal Cream (Estrogens Conjugated) Apply topically to affected area daily. As directed. 30 g 4 05/16/2023 Active Atorvastatin Calcium 20 MG Oral Tablet (Lipitor)Indications :Mixed hyperlipidemia TAKE 1 TABLET BY MOUTH IN THE MORNING 90 Tablet 3 06/01/2023 Active LORazepam 0.5 MG Oral Tablet (Ativan)Indications: PETER (generalized anxiety disorder) Take 1 Tablet by mouth daily as needed for Anxiety. 10 Tablet 0 07/26/2023 Active Famotidine 20 MG Oral Tablet (Pepcid)Indications: Gastroesophageal reflux disease without esophagitis Take 1 Tablet by mouth at bedtime. 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 90 Tablet 2 09/18/2023 Active documented as of this encounter (statuses as of 09/26/2023) Active Problems Problem Noted Date Diagnosed Date [...] as of this encounter (statuses as of 09/26/2023) Resolved Problems Problem Noted Date Diagnosed Date [...] Jose M Seth MD Pharmacy: [facility] 08/09/2013 12/16/2015 Dementia 07/19/2013 [...] as of this encounter (statuses as of 09/26/2023) Immunizations Name Administration Dates Next Due COVID-19 mRNA, LNP-s, No Pre serve, 2-Dose Series ([employer]) 02/18/2021,08/10/2020,07/06/2020 COVID-19, MRNA-LNP, 23-24, P F, 30 [...] Date Recorded PHQ Adult Total Score 0 08/07/2023 Hunger Vital Sign Answer Date Recorded Within the past 12 months, y ou worried that your food would run out before you got the money to buy more. Never true 08/07/19 24 Within the past 12 months, t he food you bought just didn't last and you didn't have money to get more. Never true 08/07/2023 Sex and Gender Information Value Date Recorded Sex Assigned at Female 11/05/2018 10:53 AM EDT Gender Identity Female 11/05/2018 10:53 AM EDT Sexual Orientation Straight 11/05/2018 10 :53 AM EDT Job Start Date Occupation Industry Not on file Not on file Not on file documented as of this encounter Nursing Notes * Nancie Sharif LPN - 09/26/2023 3:02 PM EDT Patient in office for PTNS treatment #5. Left ankle used. Tolerated 30 min treatment on level 10. Patient reports symptoms are improving. documented in this encounter Plan of Treatment Upcoming Encounters Date Type Department Care Team (Late st Contact Info) Description 09/26/2023 3:20 PM EDT Laboratory Laboratory, [address] [phone] [place] Specimen Drop Off [address] [address] Arrived 10/04/2023 2:00 PM EDT Nurse Only Urology, [place] [place] [address] [place] Nurse Urology [address] [address] 10/09/2023 1:00 PM EDT Nurse Only Ancillary [facility] [address] [facility] [place], [place] [address] [facility], Nurse Annual Wellness [facility] 132 [facility] [place], [place] [address] 10/11/2023 2:30 PM EDT Imaging Radiology [facility] 1st Floor, [place] 132 [facility] [place] [address] 10/11/2023 3:00 PM EDT Imaging Radiology [facility] 132 [facility] [place] [address] 10/19/2023 2:30 PM EDT Telemedicine Nutrition & Weight Management, [facility] 132 [place] [address] Maria E Cazares RDN 132 [place] [address] 10/27/2023 11:00 AM EDT Office Visit [facility] Disorders Ctr [facility] 132 [facility] [place] [place] [phone] Charmaine Mckeon DO 132 [place] [address] 11/06/2023 3:00 PM EDT Office Visit Psychiatry, [facility] [place] [address] [place] [address] Paty Haynes CRNP [address] [place] [address] 12/01/2023 10:00 AM EDT Laboratory Laboratory [facility] [place] [address] [place] [phone] Shilpa Lab [facility] [address] [address] 12/08/2023 2:30 PM EDT Office Visit Hematology/Oncology [facility] [address] [place] [address] Marietta Salazar CRNP [address] [place] [address] 12/11/2023 10:45 AM EDT Office Visit Urology, [facility] 132 [place] [address] Mendel Macedo MD 27 [facility] 270 [place] [address] 12/13/2023 1:30 PM EDT Cardiac Studies Cardiac Studies, [facility] 132 [place] [address] 12/21/2023 2:40 PM EDT Office Visit General Internal Medicine [facility] 200 [facility] [place] [address] Jose M Seth MD 200 [facility] [place] [address] 01/25/2024 11:00 AM EDT Telemedicine Genetics [facility], [address] [address] Tonya Jovel, [place] 132 [place] [address] Health Maintenance Due Date Last Done Comments [...] 8:15 PM 10/02/2012 7:35 PM This order reflects the patients wishes and were consensually agreed upon. Care Teams Sliver Machine Operator Relationship Specialty Start Date End Date oJse M Seth MD 200 [facility] [place], [place] [address] PCP - General Internal Medicine 11/21/11 documented as of this encounter
--- OUTSIDE RECORDS SUMMARY | 2023-12-07 12:15 | External Medical Summary ---
Author Name Unknown Address Unknown Organization K01:[facility] [address] [facility] [address] Laboratory Report Ordering Provider Test Date Status PIERRE IRBY 09/26/2023 15:19:10 Final Observation Date Value Abnormality Reference (Units ) Status Color of Urine by Auto 09/26/2023 15:19:10 Light Yellow Colorless, Light Yellow, Yellow, Dark Yellow Final Clarity, Urine 09/26/2023 15:19:10 Clear Clear Final Glucose [Mass/volume] in Urine by Automated test strip 09/26/2023 15:19:10 Negative Negative (mg/dL) Final Bilirubin.total [Presence] in Urine by Automated test strip 09/26/2023 15:19:10 Negative Negative Final Ketones [Mass/volume] in Urine by Automated test strip 09/26/2023 15:19:10 Negative Negative (mg/dL) Final Specific gravity, Urine 09/26/2023 15:19:10 1.016 1.003-1.030 Final Hemoglobin [Presence] in Urine by Automated test strip 09/26/2023 15:19:10 Negative Negative Final pH, Urine 09/26/2023 15:19:10 7.0 5.0-7.5 (Units) Final Protein [Mass/volume] in Urine by Automated test strip 09/26/2023 15:19:10 Negative Negative (mg/dL) Final Urobilinogen [Mass/volume] in Urine by Automated test strip 09/26/2023 15:19:10 Normal Normal (mg/dL) Final Nitrite [Presence] in Urine by Automated test strip 09/26/2023 15:19:10 Negative Negative Final Leukocyte esterase [Presence] in Urine by Automated test strip 09/26/2023 15:19:10 Negative Negative Final RBC, Urine 09/26/2023 15:19:10 0-2 0-2 (/HPF) Final WBC, Urine 09/26/2023 15:19:10 3-5 Abnormal 0-2 (/HPF) Final Bacteria [#/area] in Urine sediment by Microscopy high power field 09/26/2023 15:19:10 0-25 0-25 (/HPF) Final Performing Location LABORATORY [facility] - [facility] [address]. [facility] [address]
--- OUTSIDE RECORDS SUMMARY | 2023-12-07 12:15 | External Medical Summary | Summary of Care ---
Author Name Unknown Organization [facility] Address [address] [place] [address] Phone [phone] Care Team Providers Care Real Estate Acquisition Analyst Name Role Phone Jose M Seth MD Primary Care Provider + Encounter Details Date Type Department Care Team (Late st Contact Info) Description 10/05/2023 1:00 PM EDT Nurse Only Urology, [place] [address] [place] [address] AlvarezNurse lily Urology [facility] [address] [place] [address] Allergies Active Allergy Reactions Criticality Noted Date [...] as of this encounter (statuses as of 10/05/2023) Medications Medication Sig Dispensed Refills Start Date [...] 100 Tab 0 04/15/2020 Active Saline Nasal [place] 0.65 % Nasal Solution ([place] Nasal [place]) Two sprays in each nostril as needed [...] as of this encounter (statuses as of 10/05/2023) Active Problems Problem Noted Date Diagnosed Date [...] PSG -- AHI 10.7, <89% 128 mins [facility] Returned machine Jun 2013 Nocturnal hypoxemia 06/18/2012 Overview: 2 LPM [facility] 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 documented as of this encounter (statuses as of 10/05/2023) Resolved Problems Problem Noted Date Diagnosed Date [...] Jose M Seth MD Pharmacy: [facility] 08/09/2013 12/16/2015 Dementia 07/19/2013 [...] as of this encounter (statuses as of 10/05/2023) Immunizations Name Administration Dates Next Due COVID-19 mRNA, LNP-s, No Pre serve, 2-Dose Series ([employer]) 02/18/2021,08/10/2020,07/06/2020 COVID-19, MRNA-LNP, 23-24, P F, 30 [...] as of this encounter Progress Notes * Nancie Sharif LPN - 10/05/2023 1:59 PM EDT Patient in office for PTNS treatment #6. Left ankle used. Tolerated 30 min treatment on level 15. Patient reports symptoms are improving. documented in this encounter Plan of Treatment Upcoming Encounters Date Type Department Care Team (Late st Contact Info) Description 10/09/2023 1:00 PM EDT Nurse Only Ancillary [address] [address] [place] Nurse Annual Wellness [address] [place] [address] 10/11/2023 2:30 PM EDT Imaging Radiology [facility] 1st Floor, [place] [facility] [place] [address] 10/11/2023 3:00 PM EDT Imaging Radiology [address] [place] [address] 10/12/2023 2:00 PM EDT Nurse Only Urology, [address] [place] [address] [place] Nurse Urology [place] [address] [place], [place] [address] 10/19/2023 2:30 PM EDT [facility]medicine [facility] 132 [facility] [place] [address] Maria E Cazares RDN [address] [place] [address] 10/27/2023 11:00 AM EDT Office Visit Sleep Disorders Ctr [facility] 132 [facility] [place] [phone] Charmaine Mckeon DO 132 [facility] [place] [address] 11/06/2023 3:00 PM EDT Office Visit Psychiatry, [facility] [address] [place] [address] Paty Haynes CRNP 200 [facility] [place] [address] 12/01/2023 10:00 AM EDT Laboratory Laboratory [facility] [place] 200 [facility] [place] [address] Shilpa Lab [facility] 200 [facility] [place] [address] 12/08/2023 2:30 PM EDT Office Visit Hematology/Oncology [facility] [place] [address] [place] [phone] Marietta Salazar CRNP [address] [place] [address] 12/11/2023 10:45 AM EDT [facility] 132 [place] [address] Mendel Macedo MD 27 [facility] [place] [address] [place] [address] 12/13/2023 1:30 PM EDT Cardiac Studies Cardiac Studies, [facility] 132 [facility] [place] [address] 12/21/2023 2:40 PM EDT Office Visit General Internal Medicine [facility] 200 [facility] [place] [address] Jose M Seth MD 200 [facility] [place] [address] 01/25/2024 11:00 AM EDT Telemedicine Genetics [facility], [address] [address] Tonya Jovel, [place] 132 [facility] [place] [address] Health Maintenance Due Date Last Done Comments [...] encounter Visit Diagnoses Diagnosis Urge incontinence- Primary Mixed hyperlipidemia Postmenopausal atrophic vaginitis documented in this encounter Advance Directives Latest Code Status on File Code Status Date Activated Date Inactivated Comments Full Code 09/24/2012 8:15 PM 10/02/2012 7:35 PM This o rder reflects the patients wishes and were consensually agreed upon. Care Teams Real Estate Acquisition Analyst Relationship Specialty Start Date End Date Jose M Seth MD 200 [place] [address] PCP - General Internal Medicine 11/21/11 documented as of this encounter
--- OUTSIDE RECORDS SUMMARY | 2023-12-07 12:15 | External Medical Summary | Summary of Care ---
Author Name Unknown Organization [facility] Address [address] [place] [address] Phone [phone] Care Team Providers Care Porcelain Turner Name Role Phone Jose M Seth MD Primary Care Provider + Reason for Visit * Reason Comments Outpatient Testing Encounter Details Date Type Department Care Team (Late st Contact Info) Description 09/26/2023 3:20 PM EDT Laboratory Laboratory, [facility] 132 [place] [address] [place], Specimen Drop Off [facility] 132 [place] [address] Dysuria; Microscopic hematuria Allergies Active Allergy Reactions Criticality Noted Date [...] 100 Tab 0 04/15/2020 Active Saline Nasal [place] 0.65 % Nasal Solution ([place] Nasal [place]) Two sprays in each nostril as needed [...] PSG -- AHI 10.7, <89% 128 mins [facility] Returned machine Jun 2013 Nocturnal hypoxemia 06/18/2012 Overview: 2 LPM [facility] Chronic knee pain History of [...] M Seth MD Pharmacy: [facility] Foster [facility] 08/09/2013 12/16/2015 Dementia 07/19/2013 2017 Encounter for [...] mRNA, LNP-s, No Pre serve, 2-Dose Series ([employer]) 02/18/2021,08/10/2020,07/06/2020 COVID-19, MRNA-LNP, 23-24, P F, 30 MCG/0.3 mL, 12 YRS AND ABOVE, IM ([employer]) 04/11/2023 Covid-19, Mrna, Lnp-s, Pf, B ivalent, [...] Care Team (Late st Contact Info) Description 10/04/2023 2:00 PM EDT Nurse Only Urology, [address] [place] [address] [place] Nurse Urology [address] [place] [address] 10/09/2023 1:00 PM EDT Nurse Only Ancillary [address] [place] [address] [place] Nurse Annual Wellness [address] [place] [address] 10/11/2023 2:30 PM EDT Imaging Radiology [facility] 1st Floor, [address] [place] [address] 10/11/2023 3:00 PM EDT Imaging Radiology [address] [place] [address] 10/19/2023 2:30 PM EDT Telemedicine Nutrition & Weight Management, [facility] 132 [facility] [place] [address] Maria E Cazares RDN 132 [facility], [place] [address] 10/27/2023 11:00 AM EDT Office Visit [facility] Disorders Ctr [facility] 132 [facility] [place] [phone] Charmaine Mckeon DO 132 [facility] [place] [address] 11/06/2023 3:00 PM EDT Office Visit Psychiatry, [facility] 200 [facility] [place] [address] Paty Haynes CRNP [address] [place] [address] 12/01/2023 10:00 AM EDT Laboratory Laboratory [facility] 200 [facility] [place] [phone] [place], [facility] 200 [facility] [place], [place] [address] 12/08/2023 2:30 PM EDT Office Visit Hematology/Oncology [facility] [address] [place] [phone] Marietta Salazar CRNP 400 [facility] [place] [address] 12/11/2023 10:45 AM EDT Office Visit Urology, [facility] 132 [facility] [place] [address] Mendel Macedo MD 27 [facility] 270 [place] [address] 12/13/2023 1:30 PM EDT Cardiac Studies Cardiac Studies, [facility] [address] [place] [address] 12/21/2023 2:40 PM EDT Office Visit General Internal Medicine [facility] 200 [facility] [place] [address] Jose M Seth MD 200 [facility] [place] [address] 01/25/2024 11:00 AM EDT Telemedicine Genetics HemOnc, [facility] 100 [place] [address] Tonya Jovel, [place] [address] [place] [address] Pending Results Name Type Priority Associated Diagnoses Date /Time CULTURE, URINE, QUANTITATIVE Lab Routine Dysuria 09/26/2023 3:18 PM EDT URINALYSIS WITH MICROSCOPIC EXAM Lab Routine Microscopic hematuria 09/26/2023 3:19 PM EDT Health Maintenance Due Date Last Done [...] as of this encounter Visit Diagnoses Diagnosis Dysuria Microscopic hematuria documented in this encounter Advance Directives Latest Code Status on File Code Status Date Activated Date Inactivated Comments Full Code 09/24/2012 8:15 PM 10/02/2012 7:35 PM This o rder reflects the patients wishes and were consensually agreed upon. Care Teams Porcelain Turner Relationship Specialty Start Date End Date Jose M Seth MD 200 [place] [address] PCP - General Internal Medicine 11/21/11 documented as of this encounter
--- OUTSIDE RECORDS SUMMARY | 2023-12-07 12:15 | External Medical Summary | Summary of Care ---
Author Name Unknown Organization [facility] Address [address] [place] [address] Phone [phone] Care Team Providers Care Design Engineer Marine Equipment Name Role Phone Jose M Seth MD Primary Care Provider + Encounter Details Date Type Department Care Team (Late st Contact Info) Description 07/06/2023 Telephone Sleep Disorders Ctr Sinan Alvarez [place] [address] [place] [address] Charmaine Mckeon DO [address] [place] [address] Allergies Active Allergy Reactions Criticality Noted Date [...] 100 Tab 0 0 Active Saline Nasal [place] 0.65 % Nasal Solution (Duplin Nasal [place]) Two sprays in each nostril as needed [...] As directed. 30 g 4 3 Active Atorvastatin Calcium 20 MG Oral Tablet (Lipitor)Indication s:Mixed hyperlipidemia TAKE 1 TABLET BY MOUTH IN THE MORNING 90 Tablet 3 4 Active LORazepam 0.5 MG Oral Tablet (Ativan)Indications :PETER (generalized anxiety disorder) Take by mouth 1 Tablet daily as needed for Anxiety. 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 30 Capsule 2 3 07/13/19 24 Discontinu ed(Refill) documented as of this [...] PSG -- AHI 10.7, <89% 128 mins [facility] Returned machine Jun 2013 Nocturnal hypoxemia 06/18/2012 Overview: 2 LPM [facility] Chronic knee pain History of [...] Jose M Seth MD Pharmacy: Maricruz Foster [facility] 08/09/2013 12/16/2015 Dementia 07/19/2013 2017 Encounter [...] mRNA, LNP-s, No Pre serve, 2-Dose Series (Network [employer]) 02/18/2021,08/10/2020,07/06/2020 COVID-19, MRNA-LNP, 23-24, P F, 30 [...] encounter Miscellaneous Notes * Telephone Encounter - Deb Reyes DO - 07/12/2023 9:30 AM EST Updated order to indicate broken beyond repair. * Telephone Encounter - Melisa Morris LPN - 07/11/2023 2:18 PM EST Our office called the pt and she states she is still waiting for her replacement cpap. Pt states she is sleeping in her recliner but is not using her oxygen. States she needs new tubing. Our office called Camden @ [facility] asking where the order stands. Camden stated the order was cx because the pt was just given a machine in 2019. Pt's order does not state " Broken beyond repair " please do a new order for the pt to have submitted to . Camden will be reaching out to the pt to set her up with a replacement device as well as O2 tubing * Telephone Encounter - Deb Reyes DO - 07/07/2023 4:05 PM EST Per note in Scheduling encounter by Keisha Sabillon JOO: "Patient called in and stated that her CPAP machine is not warming up, she cleaned the machine and then it was telling her check plug she unplugged waited and then plugged back in and it is still saying check plug and will not work. She states that with out the machine she is having trouble sleeping waking up choking. She uses [facility] and would like to have a new machine. She scheduled an appointment for 10.27.[address] Mckeon and placed on the Fast Pass list as well for somethingsooner. Could she get the script for the New Machine in the mean time because the choking is starting to scare her. Please advise. Thank You." Last appt with me was on 03/29/23. I had ordered her a replacement CPAP device at that time, however, it sounds like she has not yet received the replacement device. Replacement CPAP device re-ordered. DME: [facility], please let her know that we have re-ordered the replacement CPAP device. While she is waiting for it, I would suggest sleeping with her head elevated (e.g. in a recliner that is not laid all the way back), and sleep wearing her oxygen if she is able to, until she has the new CPAP. Please also ask Keny to prioritize her replacement device, as her current CPAP is broken. Keep the September appt, anticipating that that will be the first CPAP check with the replacement device. * Telephone Encounter - Charmaine Mckeon DO - 07/06/2023 8:26 PM EST I last saw this patient about 4 years ago. Patient was seen by Dr. Reyes about 4 months ago 03/2023. documented in this encounter Plan of Treatment Upcoming Encounters Date Type Department Care Team (Late st Contact Info) Description 10/09/2023 1:00 PM EDT Nurse Only Ancillary Sanam Alvarez [place] [facility] [place] [address] Alvarez, Nurse [facility] 132 [facility] [place] [address] 10/11/2023 2:30 PM EDT Imaging Radiology [facility] 1st Floor, [place] 132 [facility] [place] [address] 10/11/2023 3:00 PM EDT Imaging Radiology [facility] 132 [facility] [place] [address] 10/12/2023 2:00 PM EDT Nurse Only Urology, [facility] 132 [facility] [place] [address] [facility], Nurse Urology [facility] 132 [facility] [place], [place] [address] 10/19/2023 2:30 PM EDT Telemedicine Nutrition & Weight Management, [facility] 132 [facility] [place] [address] Maria E Cazares RDN 132 [facility] [place] [address] 10/27/2023 11:00 AM EDT Office Visit Sleep Disorders Ctr [facility] 132 [facility] [place] [phone] Charmaine Mckeon DO 132 [facility] [place], [place] [address] 11/06/2023 3:00 PM EDT Office Visit Psychiatry, Brian Massey [address] [place] [address] Paty Haynes CRNP [address] [place] [address] 12/01/2023 10:00 AM EDT Laboratory [facility] [place] [address] [place] [phone] Rosanna Massey Scene [address] [facility] [place] [address] 12/08/2023 2:30 PM EDT Office Visit Hematology/Oncology [facility] 200 [facility] [place] [address] Marietta Salazar CRNP 400 [facility] [place] [address] 12/11/2023 10:45 AM EDT Office Visit Urology, [facility] [place] [address] Mendel Macedo MD [address] [address] [facility] [place] [address] 12/13/2023 1:30 PM EDT Cardiac Studies Cardiac Studies, [facility] 132 [facility] [place] [address] 12/21/2023 2:40 PM EDT Office Visit General Internal Medicine [facility] 200 [facility] [place] [address] Jose M Seth MD 200 [facility] [address] 01/25/2024 11:00 AM EDT [facility], [address] [address] Tonya [place], [place] 132 [place] [address] Health Maintenance Due Date Last Done Comments [...] sleep apnea (adult) (pediatric) Nocturnal hypoxemia Hypoxemia Chronic diastolic (congestive) heart failure (HCC) documented in this encounter Advance Directives Latest Code Status on File Code Status Date Activated Date Inactivated Comments Full Code 09/24/2012 8:15 PM 10/02/2012 7:35 PM This o rder reflects the patients wishes and were consensually agreed upon. Care Teams Design Engineer Marine Equipment Relationship Specialty Start Date End Date Jose M Seth MD 200 [place] [address] PCP - General Internal Medicine 11/21/11 documented as of this encounter
--- OUTSIDE RECORDS SUMMARY | 2023-12-07 12:16 | External Medical Summary | Summary of Care ---
Author Name Unknown Organization [facility] Address [address] [place] [address] Phone [phone] Care Team Providers Care Manufacturing Engineer Machining Name Role Phone Jose M Seth MD Primary Care Provider + Encounter Details Date Type Department Care Team (Late st Contact Info) Description 09/06/2023 1:00 PM EDT Nurse Only Urology, Sanam Rioss [place] [address] [place] [address] AlvarezNurse lily Urology [facility] [address] [place] [address] Allergies Active Allergy Reactions Criticality Noted Date [...] as of this encounter (statuses as of 09/06/2023) Medications Medication Sig Dispensed Refills Start Date [...] 100 Tab 0 04/15/2020 Active Saline Nasal [place] 0.65 % Nasal Solution (Mcpherson Nasal [place]) Two sprays in each nostril as needed [...] Active Additional Information Patient not taking.Reported on 06/14/2023 Atorvastatin Calcium 20 MG Oral Tablet (Lipitor)Indications :Mixed hyperlipidemia TAKE 1 TABLET BY MOUTH IN THE MORNING 90 Tablet 3 06/01/2023 Active Divalproex Sodium ER 250 MG Oral Tablet Extended Release 24 Hour (Depakote ER)Indications: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 30 Capsule 2 07/13/2023 Active LORazepam 0.5 MG Oral Tablet (Ativan)Indications: PETER (generalized anxiety disorder) Take 1 Tablet by mouth daily as needed for Anxiety. 10 Tablet 0 07/26/2023 Active documented as of this encounter (statuses as of 09/06/2023) Active Problems Problem Noted Date Diagnosed Date [...] as of this encounter (statuses as of 09/06/2023) Resolved Problems Problem Noted Date Diagnosed Date [...] M Seth MD Pharmacy: [facility] 08/09/2013 12/16/2015 Dementia 07/19/2013 2017 Encounter [...] as of this encounter (statuses as of 09/06/2023) Immunizations Name Administration Dates Next Due COVID-19 mRNA, LNP-s, No Pre serve, 2-Dose Series (Zola) 02/18/2021,08/10/2020,07/06/2020 COVID-19, MRNA-LNP, 23-24, P F, 30 MCG/0.3 mL, 12 YRS AND ABOVE, IM ([email or web address]) 04/11/2023 Covid-19, Mrna, Lnp-s, Pf, B ivalent, [...] Nursing Notes * Nancie Sharif LPN - 09/06/2023 2:17 PM EDT Patient in office for PTNS treatment #3. Left ankle used. Tolerated 30 min treatment on level 3. Patient reports symptoms are improving. documented in this encounter Plan of Treatment Upcoming Encounters Date Type Department Care Team (Late st Contact Info) Description 09/13/2023 3:00 PM EDT Office Visit Cardiology, [facility] 132 [facility] [place] [address] Damaris Ramírez CRNP 132 [facility] [place] [address] 09/18/2023 3:00 PM EDT Office Visit Psychiatry, [facility] [address] [place] [address] Paty Haynes CRNP [address] [place] [address] 2023 1:30 PM EDT Nurse Only Ancillary [facility] [place] [address] [place] [address] Im, Nurse Annual Wellness [facility] [address] [place] [address] 10/11/2023 2:30 PM EDT Imaging Radiology [facility] 1st Floor, [place] 132 [facility] [place] [address] 10/11/2023 3:00 PM EDT Imaging Radiology [facility] 132 [facility] [address] 10/19/2023 2:30 PM EDT Telemedicine Nutrition & Weight Management, [facility] 132 [facility] [place] [address] Maria E Cazares RDN 132 [facility] [place] [address] 10/27/2023 11:00 AM EDT Office Visit Sleep Disorders Ctr [facility] 132 [facility] [place] [phone] Charmaine Mckeon DO 132 [facility] [place] [address] 12/01/2023 10:00 AM EDT Laboratory Laboratory [facility] [address] [place] [phone] [facility] [address] [facility] [place] [address] 12/08/2023 2:30 PM EDT Office Visit Hematology/Oncology [facility] [address] [place] [phone] Marietta Salazar CRNP [address] [place] [address] [place] [id number] 12/11/2023 10:45 AM EDT Office Visit Urology, [facility] 132 [facility] [place] [address] Mendel Macedo MD [address] [address] [place] [address] 12/21/2023 2:40 PM EDT Office Visit General Internal Medicine [facility] [address] [facility] [place] [address] Jose M Seth MD [address] [facility] [place] [address] 01/25/2024 11:00 AM EDT Telemedicine Genetics HemOnc, [facility] 100 [place] [address] Tonya Jovel, [place] [address] [place] [address] Health Maintenance Due Date Last Done Comments HbA1c 07/13/2023 07/13/2022, 08/28, 02/15/2021, Additional history exists DXA Scan 09/20/2024 09/20/2021, 08/28, 10/23/2013, Additional history exists DTaP,Tdap,and Td Vaccines (3 - Td or Tdap) 03/07/2032 03/07/2022, 08/12/2010 Pneumococcal Vaccine: 65+ Years Completed 06/30/2014, 08/12/2010 COLONOSCOPY-EVERY 5 YRS AGES 18-100 Discontinued 04/13/2016, [...] Diagnoses Diagnosis Urge incontinence- Primary Mixed hyperlipidemia documented in this encounter Advance Directives Latest Code Status on File Code Status Date Activated Date Inactivated Comments Full Code 09/24/2012 8:15 PM 10/02/2012 7:35 PM This o rder reflects the patients wishes and were consensually agreed upon. Care Teams Manufacturing Engineer Machining Relationship Specialty Start Date End Date Jose M Seth MD 200 [place] [address] PCP - General Internal Medicine 11/21/11 documented as of this encounter
--- OUTSIDE RECORDS SUMMARY | 2023-12-07 12:16 | External Medical Summary ---
Author Name Unknown Address Unknown Organization K01:[facility] [address] [facility] [address] Laboratory Report Ordering Provider Test Date Status DO MAHAMEDKENDALL 08/31/2023 15:31:11 Final Observation Date Value Abnormality Reference (Units) Status Color of Urine by Auto 08/31/2023 15:31:11 Yellow Colorless, Light Yellow, Yellow, Dark Yellow Final Clarity, Urine 08/31/2023 15:31:11 Slightly Cloudy Abnormal Clear Final Glucose [Mass/volume] in Urine by Automated test strip 08/31/2023 15:31:11 Negative Negative (mg/dL) Final Bilirubin.total [Presence] in Urine by Automated test strip 08/31/2023 15:31:11 Negative Negative Final Ketones [Mass/volume] in Urine by Automated test strip 08/31/2023 15:31:11 Negative Negative (mg/dL) Final Specific gravity, Urine 08/31/2023 15:31:11 1.031 Above high normal 1.003-1.030 Final Hemoglobin [Presence] in Urine by Automated test strip 08/31/2023 15:31:11 Negative Negative Final pH, Urine 08/31/2023 15:31:11 7.0 5.0-7.5 (Units) Final Protein [Mass/volume] in Urine by Automated test strip 08/31/2023 15:31:11 100 Abnormal Negative (mg/dL) Final Urobilinogen [Mass/volume] in Urine by Automated test strip 08/31/2023 15:31:11 2.0 Abnormal Normal (mg/dL) Final Nitrite [Presence] in Urine by Automated test strip 08/31/2023 15:31:11 Negative Negative Final Leukocyte esterase [Presence] in Urine by Automated test strip 08/31/2023 15:31:11 Moderate Abnormal Negative Final RBC, Urine 08/31/2023 15:31:11 6-9 Abnormal 0-2 (/HPF) Final WBC, Urine 08/31/2023 15:31:11 20-29 Abnormal 0-2 (/HPF) Final Bacteria [#/area] in Urine sediment by Microscopy high power field 08/31/2023 15:31:11 26-50 Abnormal 0-25 (/HPF) Final Epithelial cells.squamous [#/area] in Urine sediment by Microscopy high power field 08/31/2023 15:31:11 Many Abnormal None (/HPF) Final Hyaline casts, Urine 08/31/2023 15:31:11 1-4 Abnormal None (/LPF) Final Performing Location LABORATORY [facility] - [facility] [address] Vincent. [facility] [address]
--- OUTSIDE RECORDS SUMMARY | 2023-12-07 12:16 | External Medical Summary | Summary of Care ---
Author Name Unknown Organization [facility] Address [address] [place] [address] Phone [phone] Care Team Providers Care Nuclear Equipment Test Engineer Name Role Phone Jose M Seth MD Primary Care Provider + Encounter Details Date Type Department Care Team (Late st Contact Info) Description 09/14/2023 1:00 PM EDT Nurse Only Urology, Sanam [place] [address] [place] [address] AlvarezNurse lily Urology [facility] [address] [place] [address] Allergies Active Allergy Reactions Criticality Noted Date [...] as of this encounter (statuses as of 09/14/2023) Medications Medication Sig Dispensed Refills Start Date [...] 100 Tab 0 04/15/2020 Active Saline Nasal [place] 0.65 % Nasal Solution (Campbell Nasal [place]) Two sprays in each nostril as needed [...] at bedtime. 90 Tablet 3 09/13/2023 Active documented as of this encounter (statuses as of 09/14/2023) Active Problems Problem Noted Date Diagnosed Date [...] as of this encounter (statuses as of 09/14/2023) Resolved Problems Problem Noted Date Diagnosed Date [...] Seth MD Pharmacy: Maricruz Foster [facility] 08/09/2013 12/16/2015 Dementia 07/19/2013 2017 Encounter for [...] as of this encounter (statuses as of 09/14/2023) Immunizations Name Administration Dates Next Due COVID-19 mRNA, LNP-s, No Pre serve, 2-Dose Series (lettrs) 02/18/2021,08/10/2020,07/06/2020 COVID-19, MRNA-LNP, 23-24, P F, 30 [...] Nursing Notes * Barbara Yeung LPN - 09/14/2023 2:22 PM EDT Patient in office for PTNS treatment #4. right ankle used. Tolerated 30 min treatment on level 17. Patient reports symptoms are stable. documented in this encounter Plan of Treatment Upcoming Encounters Date Type Department Care Team (Late st Contact Info) Description 09/18/2023 3:00 PM EDT Office Visit Psychiatry, [facility] [address] [address] Paty Haynes CRNP [address] [address] 2023 1:30 PM EDT Nurse Only Ancillary [facility] Shilpa [place] [address] [address] Im, Nurse Annual Wellness [facility] [address] [address] 10/11/2023 2:30 PM EDT Imaging Radiology [facility] [facility], [place] 132 [facility] [place] [address] 10/11/2023 3:00 PM EDT Imaging Radiology [facility] 132 [facility] [place] [address] 10/19/2023 2:30 PM EDT Telemedicine Nutrition & Weight Management, [facility] 132 [facility] [place] [address] Maria E Cazares, PAN 132 [facility] [place] [address] 10/27/2023 11:00 AM EDT Office Visit Sleep Disorders Ctr [facility] 132 [facility] [place] [phone] Charmaine Mckeon DO 132 [facility] [place] [address] 12/01/2023 10:00 AM EDT Laboratory Laboratory [facility] [address] [place] [phone] [place], Lab [facility] 200 [facility] [place] [address] 12/08/2023 2:30 PM EDT Office Visit Hematology/Oncology [facility] [address] [place] [phone] Marietta Salazar CRNP [address] [place] [address] [place] [address] 12/11/2023 10:45 AM EDT Office Visit Urology, [facility] 132 [facility] [place] [address] Mendel Macedo MD [address] [place] [address] [place] [address] 12/13/2023 1:30 PM EDT Cardiac Studies Cardiac Studies, [facility] 132 [place] [address] 12/21/2023 2:40 PM EDT Office Visit General Internal Medicine Brian Massey [place] 200 [facility] [place] [address] Jose M Seth MD 200 [facility] [place] [address] 01/25/2024 11:00 AM EDT Telemedicine Genetics HemOnc, [facility] 100 [place] [address] Tonya Jovel, [place] [address] [place] [address] Health Maintenance Due Date Last Done Comments [...] and were consensually agreed upon. Care Teams Nuclear Equipment Test Engineer Relationship Specialty Start Date End Date Jose M Seth MD 200 [place] [address] PCP - General Internal Medicine 11/21/11 documented as of this encounter
--- OUTSIDE RECORDS SUMMARY | 2023-12-07 12:16 | External Medical Summary | Summary of Care ---
Author Name Unknown Organization [facility] Address [address] [place] [address] Phone [phone] Care Team Providers Care Customer Experience Professional Name Role Phone Jose M Seth MD Primary Care Provider + Reason for Visit * Reason Onset Date Comments Advice 09/01/2023 Appointment 09/01/2023 Pt returning krista se call - Advised pt of nurses msg. No further questions, pt understanding. Encounter Details Date Type Department Care Team (Late st Contact Info) Description 09/01/2023 Telephone Urology, [facility] [address] [place] [address] Services, Scheduling [address] [place] [address] Advice; Appointment (Pt returning nurse ca... Allergies Active Allergy Reactions Criticality Noted Date [...] as of this encounter (statuses as of 09/01/2023) Medications Medication Sig Dispensed Refills Start Date [...] 100 Tab 0 04/15/2020 Active Saline Nasal [place] 0.65 % Nasal Solution ([place] Nasal [place]) Two sprays in each nostril as needed [...] as of this encounter (statuses as of 09/01/2023) Active Problems Problem Noted Date Diagnosed Date [...] PSG -- AHI 10.7, <89% 128 mins [facility] Returned machine Jun 2013 Nocturnal hypoxemia 06/18/2012 Overview: 2 LPM [facility] 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 documented as of this encounter (statuses as of 09/01/2023) Resolved Problems Problem Noted Date Diagnosed Date [...] Jose M Seth MD Pharmacy: [facility] [place] 08/09/2013 12/16/2015 Dementia 07/19/2013 2017 Encounter for [...] as of this encounter (statuses as of 09/01/2023) Immunizations Name Administration Dates Next Due COVID-19 mRNA, LNP-s, No Pre serve, 2-Dose Series ([facility]) 02/18/2021,08/10/2020,07/06/2020 COVID-19, MRNA-LNP, 23-24, P F, [...] encounter Miscellaneous Notes * Telephone Encounter - Lian Cordova OSA - 09/01/2023 11:48 AM EDT Pt returning nurse call - Advised pt of nurses msg. No further questions, pt understanding. Confirmed apt for 09-06-23. * Telephone Encounter - Janie Good LPN - 09/01/2023 11:41 AM EDT Called patient, went to voicemail. Left message asking for return call to office. Moises is not in the office until the . Patient will miss this week of PTNS and waste picker next week as scheduled. * Telephone Encounter - Haleigh Brito OSA - 09/01/2023 10:16 AM EDT Pt calling in about missed appt yesterday. Pt apologizes for missing appt. Would like a call back from moises to let her know what she should do. Please advise documented in this encounter Plan of Treatment Upcoming Encounters Date Type Department Care Team (Late st Contact Info) Description 09/06/2023 1:00 PM EDT Nurse Only Urology, [facility] [address] [place] [address] [place], Nurse Urology [facility] [address] [place] [address] 09/13/2023 3:00 PM EDT Office Visit Cardiology, [facility] [address] [facility] [place] [address] Damaris Ramírez CRNP [address] [place] [address] 09/18/2023 3:00 PM EDT Office Visit Psychiatry, [facility] [address] [facility] [place] [address] Paty Haynes CRNP [address] [facility] [place] [address] 2023 1:30 PM EDT Nurse Only Ancillary [facility] [address] [place] [address] Im, Nurse Annual Wellness [facility] [address] [place] [address] 10/11/2023 2:30 PM EDT Imaging Radiology [facility] 1st Floor, [place] [address] [facility] [place] [address] 10/11/2023 3:00 PM EDT Imaging Radiology [facility] [address] [facility] [place] [address] 10/19/2023 2:30 PM EDT Telemedicine Nutrition & Weight Management, [facility] [address] [place] [address] Maria E Cazares RDN [address] [place] [address] 10/27/2023 11:00 AM EDT Office Visit [facility] [address] [facility] [place] [phone] Charmaine Mckeon DO [facility] [place] [address] 12/01/2023 10:00 AM EDT Laboratory Laboratory [facility] [address] [facility] [place] [phone] [facility] [address] [facility] [place] [address] 12/08/2023 2:30 PM EDT Office Visit Hematology/Oncology [facility] [address] [facility] [place] [phone] Marietta Salazar CRNP [address] [place], [place] [address] [address] 12/11/2023 10:45 AM EDT Office Visit Urology, [facility] [place] [address] Mendel Macedo MD [address] [place] [address] 12/21/2023 2:40 PM EDT Office Visit General Internal Medicine [facility] [address] [facility] [place] [address] Jose M Seth MD [address] [facility] [place] [address] 01/25/2024 11:00 AM EDT Telemedicine [facility] [address] [place] [address] Tonya Jovel, MS [address] [facility] [place] [address] Health Maintenance Due Date Last Done Comments HbA1c 07/13/2023 07/13/2022, 08/28, 02/15/2021, Additional history exists Depression Screening 08/06/2024 08/07/2023 DXA Scan 09/20/2024 09/20/2021, 08/28, 10/23/2013, Additional [...] and were consensually agreed upon. Care Teams Customer Experience Professional Relationship Specialty Start Date End Date Jose M Seth MD [address] [facility] [place] [address] PCP - General Internal Medicine 11/21/11 documented as of this encounter
--- OUTSIDE RECORDS SUMMARY | 2023-12-07 12:16 | External Medical Summary | Summary of Care ---
Author Name Unknown Organization [facility] Address [address] [place] [address] Phone [phone] Care Team Providers Care Well Cleaner Name Role Phone Jose M Seth MD Primary Care Provider + Reason for Referral * Precert (Within 10 days (routine)) - Authorized Specialty Diagnoses / Procedures Referred By Contac t Referred To Contact Cardiac Studies Diagnoses Chronic diastolic (congestive) heart failure (HCC) Nonrheumatic aortic valve stenosis Procedures ECHO, COMPLETE (2D), TRANS-THORACIC Damaris Ramírez CRNP [address] [place] [address] Referral ID Status Reason Start Date Expiration Date V isits Requested Visits Authorized [id number] Authorized Precert 12/13/2023 999 999 Reason for Visit * Reason Comments Follow Up Encounter Details Date Type Department Care Team (Late st Contact Info) Description 09/13/2023 3:00 PM EDT Office Visit Cardiology, [facility] [address] [place] [address] Damaris Ramírez CRNP [address] [place] [address] Chronic diastolic (congestive) heart failure (HCC)*; Nonrheumatic aortic valve stenosis; Dyslipidemia, goal LDL below 100; Gastroesophageal reflux disease without esophagitis Allergies Active Allergy Reactions Criticality Noted Date [...] as of this encounter (statuses as of 09/16/2023) Medications Medication Sig Dispensed Refills Start Date [...] 100 Tab 0 04/15/2020 Active Saline Nasal Nash 0.65 % Nasal Solution (Forrest Nasal Nash) Two sprays in each nostril as needed [...] as of this encounter (statuses as of 09/16/2023) Active Problems Problem Noted Date Diagnosed Date [...] PSG -- AHI 10.7, <89% 128 mins [facility] Returned machine Jun 2013 Nocturnal hypoxemia 06/18/2012 Overview: 2 LPM [facility] Chronic knee pain History of wound infection Overview: 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 2016 documented as of this encounter (statuses as of 09/16/2023) Resolved Problems Problem Noted Date Diagnosed Date [...] as of this encounter (statuses as of 09/16/2023) Immunizations Name Administration Dates Next Due COVID-19 mRNA, LNP-s, No Pre serve, 2-Dose Series ([employer]) 02/18/2021,08/10/2020,07/06/2020 COVID-19, MRNA-LNP, 23-24, P F, 30 MCG/0.3 mL, 12 YRS AND ABOVE, IM ([employer]) 04/11/2023 Covid-19, Mrna, Lnp-s, Pf, B ivalent, [...] Date Smoking Tobacco: Never Smokeless Tobacco: Never Tobacco Cessation:Counseling Given: Not Answered Comments:No passive smoke exposures Alcohol Use Standard Drinks/Week Comments No 0 [...] Sign Reading Time Taken Comments Blood Pressure 116/58 09/13/2023 3:12 PM EDT Pulse 86 09/13/2023 3:12 PM EDT Temperature - - Respiratory Rate - - Oxygen Saturation 96% 09/13/2023 3:12 PM EDT Inhaled Oxygen Concentration - - Weight 85.3 kg (188 lb) 09/13/2023 3:12 PM EDT Height - - Body Mass Index 35.52 06/21/2023 3:28 PM EST documented in this encounter Progress Notes * Desiree DamarisJA Sherwood - 09/13/2023 3:18 PM EDT 09/13/2023 Cardiology Follow Up Primary Special Education Administrator: Dr. Escobedo Cardiac Problems: Moderate aortic stenosis Dyslipemia Obesity with JOO Borderline Ascending aortic enlargement. HPI: Kathy Mccoy is a 77 year old female presents for routine cardiology follow up. Last seen by Dr. Escobedo 12/03/21. Doing well from a cardiac standpoint Patient presents today with multiple concerns. Denies any significant change in her functional capacity. She is complaining of "indigestion" and good getting stuck. Large pills are getting stuck. She alsocomplaints of gurggling from her epigastric area. EKG obtained NSR Rate 84bpm No acute changes. BP well controlled. Reports compliance on all medications with no untoward effects REVIEW OF SYSTEMS: See HPI for pertinent positives. All others negative other than those noted in the HPI. CONSTITUTIONAL: No change in weight, No weakness, No fatigue and No fevers, No sweats or chills. PULMONARY: No cough, sputum, or hemoptysis, No wheezing, No shortness or breath and No recent change in breathing. CARDIOVASCULAR: No chest pain, No dyspnea on exertion, No edema, No palpitations and No syncope. GASTROINTESTINAL: No abdominal pain, No change in bowel habits, No significant heartburn, No nausea, No vomiting, No diarrhea, No constipation, No blood in stools or black tarry stools. No dysphagia. HEMATOLOGIC: No abnormal bleeding and No bruising. NEUROLOGICAL: Normal balance, No headaches and No weakness. Review of patient's allergies indicates: Allergen Reactions [...] Zyrtec [Cetirizine Hcl] Problems breathing, overly dry Current Outpatient Medications Medication Sig Dispense Refill [...] hours as needed. 100 Tab0 Saline Nasal Nash 0.65 % Nasal Solution (Forrest Nasal Nash) Two sprays in each nostril as needed [...] COVID-19 mRNA Vaccine 12 years and above [employer] 30 MCG/0.3 ML IM SUSP Inject into [...] MOUTH IN THE MORNING 90 Tablet 3 Divalproex Sodium ER 250 MG Oral Tablet Extended Release 24 Hour (Depakote ER) Take 3 Tablets by mouth every night at bedtime. 90 Tablet 2 FLUoxetine HCl 20 MG Oral Capsule (PROzac) Take 1 Capsule by mouth at bedtime. 30 Capsule 2 LORazepam 0.5 MG Oral Tablet (Ativan) Take 1 Tablet by mouth daily as needed for Anxiety. 10 Tablet0 No current facility-administered medications for this visit. Past Medical History: Diagnosis Date Arthritis of knee BIPOLAR AFFEC, DEPR-MOD 06/29/2009 Bipolar I disorder, most recent episode depressed ([facility]) Breast cancer ([facility]) 02/26/2020 Invasive Ductal Carcinoma left breast Breast carcinoma, female, left ([facility]) 04/01/2020 Cervicalgia 07/22/2009 Chronic bilateral low back pain with bilateral sciatica 12/16/2015 Chronic knee pain Chronic shoulder pain Diastolic dysfunction 06/18/2015 Endometrial cancer ([facility]) 2012 Epiretinal membrane, right eye 08/20/2012 23G PPV/MP for ERM OD, Dr. Plasencia Esophageal reflux 06/29/2009 History of bipolar disorder 07/14/2022 History of elevated glucose History of endometrial cancer 04/07/2017 History of hypertension 07/12/2017 History of wound infection 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 Major depressive disorder, recurrent, unspecified ([facility]) 09/11/2019 MGUS (monoclonal gammopathy of unknown significance) 04/15/2019 Mixed hyperlipidemia 11/06/2018 MRSA (methicillin resistant staph aureus) culture positive 09/02/2016 Nocturnal hypoxemia 06/18/2012 Nonrheumatic aortic valve stenosis 11/05/2018 Obstructive sleep apnea 06/18/2012 OCD (obsessive compulsive disorder) excessive checking to turn things off Other anxiety states Peripheral neuropathy 07/14/2022 Pulmonary arterial hypertension (HCC) Sleep apnea, obstructive Family History Problem Relation Age of Onset [...] hx of AMD retinal detachments or blindness Social History Socioeconomic History Marital status: Number of children: 5 Occupational History 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 Daughter is behavioral health specialist. Another daughter in [place]. Social Determinants of Health Food Insecurity: No Food Insecurity (08/07/2023) Hunger Vital Sign Worried About Running Out of Food in the Last Year: Never true Ran Out of Food in the Last Year: Never true OBJECTIVE/PHYSICAL EXAMINATION: BP 116/58 | Pulse 86 | Wt 85.3 kg (188 lb) | SpO2 96% | BMI 35.52 kg/m | BSA 1.92 m General: No acute distress. A+Ox3. HEENT: Normocephalic. Atraumatic. PERRL. EOMI. Conjunctiva and sclera clear. NECK: No carotid bruits. No JVD. Carotid upstrokes are brisk. Heart: RRR. S1 and S2 noted. +2/6 Systolic murmur. No rubs or gallops. PMI non displaced. Lungs: Clear to auscultation. No wheezes.No rhonchi. No rales. Abdomen: Normal bowel sounds. Soft. Nontender. No masses or organomegaly. No abdominal bruits. Extremities: No edema. No clubbing or cyanosis. Pulses: radial=2/4, posterior tibial=2/4, dorsalis pedis = 2/4. NEURO: No focal deficits. PSYCH: Appropriate affect and insight. DATA Labs & Imaging Reviewed Below: Echocardiogram 12/09/2022 Interpretation Summary The examination is adequate to evaluate the referral indication. The left ventricular cavity size is normal. The LV wall thickness is moderately increased (concentric). The left ventricular wall motion is normal. The qualitative LV ejection fraction is 55-59% (normal). The left ventricular diastolic function is moderately abnormal (grade II). The aortic valve is moderately calcified greatest in its non coronary cusp Moderate aortic valve stenosis is present, peak aortic valve velocity 3.6 m/sec, mean aortic valve gradient 30 mm Hg Compared to prior study of Aortic valve velocities have increased slightly There is no significant aortic regurgitation. There is moderate mitral annular calcification. Mitral stenosis is absent. 2D echocardiogram report November 25, 2021: The left ventricular cavity size is normal. The LV wall thickness is mildly increased (concentric). The left ventricular wall motion is normal. The qualitative LV ejection fraction is 55-59% (normal). The left ventricular diastolic function is moderately abnormal (grade II). The aortic valve is moderately calcified greatest in its non coronary cusp Moderate aortic valve stenosis is present, peak aortic valve velocity 3.5 m/sec, mean aortic valve gradient 30 mm Hg Compared to prior study of Aortic valve velocities have increased slightly but remain moderate, 2D echocardiogram report summary November 10, 2020: Compared to last available study, there has been no interval change. Normal LV chamber size with mild concentric LVH. Normal LV systolic function without regional wall motion abnormality. Calculated LV ejection Fraction = 65% (bi-plane method of discs). The global longitudinal strain (GLS) is - 17 %. Normal left ventricular systolic function is suggested if GLS is -14% to -30%. Grade 1 diastolic dysfunction. Moderately calcified trileaflet aortic valve. Moderate aortic valve stenosis is present. Severe left atrial enlargement. 2D transthoracic echocardiogram report 12/2019: The qualitative LV ejection fraction is 55-59% (normal). The LV wall thickness is mildly increased (concentric). The left atrium is moderately enlarged (42-48 ml/m^2). The left ventricular diastolic function is moderately abnormal (grade II). The aortic valve is moderately calcified. Moderate aortic valve stenosis is present. Compared to last available study changes are noted as follows: Aortic valve systolic gradients haveincreased. Dobutamine stress echo 10/2018: The primary indication after review was deemed appropriate and the examination was performed. The stress echo is negative for inducible ischemia. No arrhythmias. Normal HR and BP response to dobutamine infusion. 2D echocardiogram report 10/31/2018: The qualitative LV ejection fraction is 55-59% (normal). The LV wall thickness is mildly increased (concentric). The left ventricular diastolic function is mildly abnormal (grade I). Moderate focal calcification of the non coronary aortic valve cusp. Mild aortic valve stenosis is present. Mild aortic valve regurgitation is present. Compared to last available study changes are noted as follows: mild aortic stenosis is present. 2D echocardiogram report 06/2017: The qualitative LV ejection fraction is 55-59%(normal). The LV wall thickness is mildly increased (concentric). The left ventricular diastolic function is mildly abnormal (grade I). Moderate focal calcification of the non coronary aortic valve cusp. Mild aortic valve stenosis is present. Mild aortic valve regurgitation is present. Compared to last available study changes are noted as follows: mild aortic stenosis is present. Carotid duplex report summary 11/2018: Right carotid artery duplex examination indicates evidence of less than 50% stenosis of the internal carotid artery. Left carotid artery duplex examination indicates evidence of less than 50% stenosis of the internalcarotid artery. Cardiac catheterization report 2000: Normal coronary arteries Lipid Panel Results: Results for orders placed or performed in visit on 07/13/22 LIPID PANEL WITH DIRECT LDL IF TG IS HIGH Result Value Ref Range Triglycerides 46 <=174 mg/dL Cholesterol 159 <200 mg/dL HDL Cholesterol 74 >49 mg/dL Non-HDL Cholesterol 85 <=159 mg/dL LDL Cholesterol 76 <=129 mg/dL ASSESSMENT/PLAN: 77 year old year old female 1. Chronic diastolic (congestive) heart failure (HCC) -Patient is euvolemic on exam -Not currently on Diuretic therapy - EKG 2. Nonrheumatic aortic valve stenosis -No change or decline in functional capacity -Plan for yearly echocardiogram for surveillance - EKG 3. Dyslipidemia, goal LDL below 100 -Continue Atorvastatin -Recommend yearly lipid panel - EKG DISPOSITION: Follow up 1 year or if symptoms worsen/fail to improve. All questions were answered to the patients satisfaction. Patient advised to report to ED with any and all emergencies. The patient agrees to the above plan and will call with additional questions or concerns. [facility], [address] [place] [address] I spent a total of 30 minutes on the date of service in preparation, delivery, and documentation ofthe care provided to Kathy Mccoy excluding any time spent in the performance of separately billed services. This chart was completed in part utilizing [employer] Speech Voice Recognition Software. Grammatical errors, random word insertions, pronoun errors, and incomplete sentences are an occasional consequence of this system due to software limitations, ambient noise, and hardware issues. Any formal questions or concerns about the content, text, or information contained within the body of this dictation should be directly addressed to the provider for clarification. documented in this encounter Procedure Notes * Martin Escobedo DO - 09/13/2023 3:22 PM EDTAssociated Order(s): EKG REASON FOR STUDY: ROUTINE;ROUTINE CONCLUSIONS: Normal sinus rhythm Normal ECG When compared with ECG of 03-Dec-2021 15:22, No significant change was found Ventricular Rate: 84 Atrial Rate: 84 NM Interval: 148 QRS Duration: 90 QT/QTc: 384/453 ms P-R-T [place]: 80 : 60 : 57 degrees documented in this encounter Nursing Notes * Nata Perdomo CMA - 09/13/2023 3:08 PM EDT Examination Room: 4 Name: Kathy Mccoy Date of : (1945) Reason for Visit: 1 yr Interim Hospitalization(s): none Problems/Concerns: denied Chest Pain/SOB: denied chest pain but does have some SOB. My [facility] is a way you can talk to your provider online through e-mail. Would you like to sign up? I can activate it for you? ALREADY ACTIVE Patient was instructed to not get up on the exam table until directed and assisted by their provider; patient is to remain seated in the chair/ wheelchair/ exam table for fall prevention and safety reasons. Patient is aware to have assistance to step down off exam table with personnel. Patient voiced full comprehension of instructions. documented in this encounter Plan of Treatment Upcoming Encounters Date Type Department Care Team (Late st Contact Info) Description 09/18/2023 3:00 PM EDT Office Visit Psychiatry, [address] [place], [place] [address] Paty Haynes CRNP [address] [place] [address] 09/21/2023 1:00 PM EDT Nurse Only Urology, [facility] 132 [facility] [place], [place] [address] Antonio, Nurse Urology [facility] [address] [place] [address] 10/11/2023 2:30 PM EDT Imaging Radiology [facility] 1st Floor, [place] 132 [facility] [place] [address] 10/11/2023 3:00 PM EDT Imaging Radiology [facility] 132 [facility] [place] [address] 10/13/2023 1:00 PM EDT Nurse Only [facility]illary [facility] [place] [address] Alvarez, Nurse Annual Wellness [facility] [address] [place] [address] 10/19/2023 2:30 PM EDT Telemedicine Nutrition & Weight Management, [facility] 132 [facility] [place] [address] Maria E Cazares RDN [address] [facility] [place] [address] 10/27/2023 11:00 AM EDT Office Visit Sleep Disorders Ctr [facility] [address] [place] [phone] Charmaine Mckeon DO [address] [place] [address] 12/01/2023 10:00 AM EDT [facility] [place] [address] [place] [phone] Rosanna Massey [facility] [address] [facility] [place] [address] 12/08/2023 2:30 PM EDT Office Visit Hematology/Oncology [facility] [place] [address] [facility] [place] [id number] Marietta Salazar CRNP [address] [facility] [place] [id number] 12/11/2023 10:45 AM EDT Office Visit Urology, [facility] [place] [address] Mendel Macedo MD [address] [address] [place] [address] 12/13/2023 1:30 PM EDT Cardiac Studies Cardiac Studies, [facility] [place] [address] 12/21/2023 2:40 PM EDT Office Visit General Internal Medicine [facility] [place] [address] Jose M Seth MD 200 [facility] [place] [address] 01/25/2024 11:00 AM EDT Telemedicine Genetics [facility]Onc, [address] [address] Tonya [place], [place] 132 [facility] [place] [address] Scheduled Orders Name Type Priority Associated Diagnoses Orde r Schedule ECHO, COMPLETE (2D), TRANS-THORACIC Echocardiology Routine Chronic diastolic (congestive) heart failure (HCC) Nonrheumatic aortic valve stenosis Expected: 12/13/2023 (Approximate), Expires: 09/12/2024 Health Maintenance Due Date Last Done Comments [...] Procedure Name Priority Date/Time Associated Diagnosis Comments NM ECG ROUTINE ECG W/LEAST 12 LDS W/I&R Routine 09/13/2023 3:22 PM EDT Chronic diastolic (congestive) heart failure (HCC) Nonrheumatic aortic valve stenosis Dyslipidemia, goal LDL below 100 documented in this encounter Results * EKG (09/13/2023 3:22 PM EDT) 09/13/2023 3:22 PM EDT Narrative Procedure Note Martin Escobedo DO - 09/13/2023 3:22 PM EDT REASON FOR STUDY: ROUTINE;ROUTINE CONCLUSIONS: Normal sinus rhythm Normal ECG When compared with ECG of 03-Dec-2021 15:22, No significant change was found Ventricular Rate: 84 Atrial Rate: 84 NM Interval: 148 QRS Duration: 90 QT/QTc: 384/453 ms P-R-T [place]: 80 : 60 : 57 degrees Damaris PERES EKG Performing Organization Address City/State/[facility] Co de Phone Number [facility] documented in this encounter Visit Diagnoses Diagnosis Chronic diastolic (congestive) heart failure (HCC)- Primary Nonrheumatic aortic valve stenosis Aortic valve disorders Dyslipidemia, goal LDL below 100 Other and unspecified hyperlipidemia Gastroesophageal reflux disease without esophagitis Esophageal reflux documented in this encounter Advance Directives Latest Code Status on File Code Status Date Activated Date Inactivated Comments Full Code 09/24/2012 8:15 PM 10/02/2012 7:35 PM This o rder reflects the patients wishes and were consensually agreed upon. Care Teams Well Cleaner Relationship Specialty Start Date End Date Jose M Seth MD [address] [place] [address] PCP - General Internal Medicine 11/21/11 documented as of this encounter
--- OUTSIDE RECORDS SUMMARY | 2023-12-07 12:16 | External Medical Summary | Summary of Care ---
Author Name Unknown Organization [facility] Address [address] [place] [address] Phone [phone] Care Team Providers Care Electronic Assembly Name Role Phone Jose M Seth MD Primary Care Provider + Reason for Visit * Reason Comments Outpatient Testing Encounter Details Date Type Department Care Team (Late st Contact Info) Description 08/31/2023 3:20 PM EDT Laboratory Laboratory [facility] [place] [address] [place] [address] [facility] Lab [facility] 200 [facility] [place] [address] Microscopic hematuria Allergies Active Allergy Reactions Criticality [...] as of this encounter (statuses as of 08/31/2023) Medications Medication Sig Dispensed Refills Start Date [...] 100 Tab 0 04/15/2020 Active Saline Nasal [place] 0.65 % Nasal Solution ([place] Nasal [place]) Two sprays in each nostril as needed [...] as of this encounter (statuses as of 08/31/2023) Active Problems Problem Noted Date Diagnosed Date [...] as of this encounter (statuses as of 08/31/2023) Resolved Problems Problem Noted Date Diagnosed Date [...] as of this encounter (statuses as of 08/31/2023) Immunizations Name Administration Dates Next Due COVID-19 mRNA, LNP-s, No Pre serve, 2-Dose Series ([employer]) 02/18/2021,08/10/2020,07/06/2020 COVID-19, MRNA-LNP, 23-24, P F, 30 MCG/0.3 mL, 12 YRS AND ABOVE, IM ([employer]) 04/11/2023 Covid-19, Mrna, Lnp-s, Pf, B [...] 09/06/2023 1:00 PM EDT Nurse Only Urology, [facility] 132 [facility] [place] [address] Nurse Antonio Urology [facility] 132 [facility] [place] [address] 09/13/2023 3:00 PM EDT Office Visit Cardiology, [facility] 132 [facility] [place] [address] Damaris Ramírez CRNP 132 [facility] [place] [address] 09/18/2023 3:00 PM EDT Office Visit Psychiatry, [facility] [address] [place] [address] Paty Haynes CRNP [address] [place] [address] 2023 1:30 PM EDT Nurse Only Ancillary [facility] [place] [address] [place] [address] Im, Nurse Annual Wellness [facility] [address] [place] [address] 10/11/2023 2:30 PM EDT Imaging Radiology [facility] 132 [facility] [place] [address] 10/11/2023 3:00 PM EDT Imaging Radiology [facility] 132 [place] [address] 10/19/2023 2:30 PM EDT Telemedicine Nutrition & Weight Management, [facility] 132 [facility] [place] [address] Maria E Cazares RDN 132 [place] [address] 10/27/2023 11:00 AM EDT Office Visit Sleep Disorders Ctr [facility] 132 [place] [phone] Charmaine Mckeon DO 132 [place] [place] [address] 12/01/2023 10:00 AM EDT Laboratory Laboratory [facility] [address] [place] [address] [place], [facility] 200 [facility] [place] [address] 12/08/2023 2:30 PM EDT Office Visit Hematology/Oncology [facility] [address] [place] [address] Marietta Salazar, JA 400 [facility] [place] [address] 12/11/2023 10:45 AM EDT Office Visit Urology, [facility] 132 [facility] [place] [address] Mendel Macedo MD [address] [place] [address] [place] [address] 12/21/2023 2:40 PM EDT Office Visit General Internal Medicine [facility] [place] 200 [facility] [place] [address] Jose M Seth MD 200 [facility] [place] [address] 01/25/2024 11:00 AM EDT Telemedicine Genetics HemOnc, [facility] [address] [place] [address] Tonya Jovel, MS [address] [place] [address] Pending Results Name Type Priority Associated Diagnoses Date /Time URINALYSIS WITH MICROSCOPIC EXAM Lab Routine Microscopic hematuria 08/31/2023 3:31 PM EDT Health Maintenance Due Date Last [...] as of this encounter Visit Diagnoses Diagnosis Microscopic hematuria documented in this encounter Advance Directives Latest Code Status on File Code Status Date Activated Date Inactivated Comments Full Code 09/24/2012 8:15 PM 10/02/2012 7:35 PM This o rder reflects the patients wishes and were consensually agreed upon. Care Teams Electronic Assembly Relationship Specialty Start Date End Date Jose M Seth MD 200 [place] [address] PCP - General Internal Medicine 11/21/11 documented as of this encounter
--- OUTSIDE RECORDS SUMMARY | 2023-12-07 12:16 | External Medical Summary | Summary of Care ---
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 [facility] Is this referral for medication management? No Reason for Referral: Depression/Anxiety/Bipolar Specific Condition? Other (Comment) Comments Chronic mental illness Reason for Visit * Reason Comments Medication Management Follow Up * - Authorized Specialty Diagnoses / Procedures Referred By Nelia noble Referred To Contact Referral ID Status Reason Start Date Expiration Date V isits Requested Visits Authorized [id number] Authorized 11/26/2022 11/26/2023 [id number] Encounter Details Date Type Department Care Team (Late st Contact Info) Description 09/18/2023 3:00 PM EDT Office Visit Psychiatry, Brian Massey [address] [place] [address] Haynes, JA Carranza 200 [facility] [place] [address] Generalized anxiety disorder*; PETER (generalized anxiety disorder); 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 0 Active Incontinence Supply Disposable ([employer] W[employer]OTHS) MISCIndications:Inc ontinence Use as needed [...] 100 Tab 0 0 Active Saline Nasal [place] 0.65 % Nasal Solution ([place]ard Nasal [place]) Two sprays in each nostril as needed [...] for Anxiety. 10 Tablet 0 4 Active Famotidine 20 MG Oral Tablet (Pepcid)Indications :Gastroesophageal reflux disease without esophagitis Take 1 Tablet by mouth at bedtime. 90 Tablet 3 4 Active FLUoxetine HCl [...] at bedtime. 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 documented as of this encounter (statuses as of 09/18/2023) Resolved Problems Problem Noted Date Diagnosed Date [...] Jose M Seth MD Pharmacy: [facility] 08/09/2013 12/16/2015 Dementia 07/19/2013 2017 Encounter [...] as of this encounter (statuses as of 09/18/2023) Immunizations Name Administration Dates Next Due COVID-19 mRNA, LNP-s, No Pre serve, 2-Dose Series ([employer]) 02/18/2021,08/10/2020,07/06/2020 COVID-19, MRNA-LNP, 23-24, P F, 30 [...] as of this encounter Progress Notes * [place] Paty Missy, JA - 09/18/2023 3:29 PM EDT OUTPATIENT PSYCHIATRY DIVISION OF PSYCHIATRY [facility] Office [address] [place] [address] MEDICATION MANAGEMENT & PSYCHOTHERAPY RETURN VISIT NOTE Name: Kathy Mccoy : 1945 Patient location: CLINIC. I was in the same facility as the patient. After connecting through [employer], patient was verified with two unique identifiers. Patient (or authorized legal in store representative)was then informed that this was a Telemedicine visit and being conducted confidentially over securelines. My office door was closed. No one else was in the room with me. Patient acknowledged consentand understanding of privacy and security of the Telemedicine visit, and gave permission to have a telemedicine presenter stay in the room in order to assist with the history and to conduct the exam as needed. I informed the patient that I have reviewed their record in [employer] and presented the opportunity for them to ask any questions regarding the visit today. The patient agreed to participate. SUBJECTIVE: Kathy Mccoy is a 77 year old female presenting for follow-up of [...] feels restless Psychosis: none CURRENT PSYCHIATRIC PROVIDERS/SERVICES: [facility] case management for waiver program MEDICATION SIDE [...] history of severe mood swings in her 20's and one inpatient hospitalization in 1992, after [...] appointments: Wt Readings from Last 3 Encounters: 09/13/23 85.3 kg (188 lb) 06/21/23 87.9 kg (193 lb 11.2 oz) 05/11/23 85.7 kg (188 lb 14.4 oz) LABORATORY RESULTS: Recent Results (from the past 1344 hour(s)) COMPREHENSIVE METABOLIC PANEL Collection Time: 08/15/23 11:15 AM Result Value Ref Range BUN 17 6 - 20 mg/dL Creatinine 0.8 0.5 - 1.0 mg/dL Estimated Glomerular Filtration Rate 72 >=60 mL/min Sodium 136 135 - 146 mmol/L Potassium 4.4 3.5 - 5.1 mmol/L Chloride 99 98 - 107 mmol/L CO2 28 22 - 32 mmol/L Anion Gap 9 7 - 15 mmol/L Glucose 112 70 - 120 mg/dL Albumin 3.9 3.8 - 5.0 g/dL AST 19 10 - 35 U/L Alkaline Phosphatase 48 35 - 130 U/L Bilirubin, Total 0.4 <=1.2 mg/dL Calcium 9.5 8.4 - 10.2 mg/dL Protein 7.7 6.0 - 8.3 g/dL ALT <5 (L) 10 - 35 U/L IRON SCREEN, INCLUDING TIBC Collection Time: 08/15/23 11:15 AM Result Value Ref Range Iron 47 33 - 151 ug/dL Iron Binding Capacity 284 250 - 425 ug/dL Transferrin Saturation Percent 17 15 - 55 % FERRITIN Collection Time: 08/15/23 11:15 AM Result Value Ref Range Ferritin 249 (H) 13 - 150 ng/mL CBC Collection Time: 08/15/23 11:15 AM Result Value Ref Range WBC 3.29 (L) 4.00 - 10.80 K/uL RBC 3.48 3.85 - 5.15 M/uL HGB 10.6 (L) 12.0 - 15.3 g/dL HCT 32.2 (L) 36.0 - 45.2 % MCV 92.5 81.5 - 97.5 fL MCH 30.5 27.0 - 34.0 pg MCHC 32.9 32.0 - 36.0 g/dL RDW 14.4 11.5 - 15.5 % PLT 238 140 - 400 K/uL MPV 10.1 6.6 - 11.1 fL DIFFERENTIAL, AUTOMATED Collection Time: 08/15/23 11:15 AM Result Value Ref Range WBC 3.29 (L) 4.00 - 10.80 K/uL Neutrophils % 49.3 40.0 - 75.0 % Lymphocytes % 31.9 18.0 - 42.0 % Monocytes % 14.9 (H) 1.0 - 11.0 % Eosinophils % 3.6 0.0 - 6.0 % Basophils % 0.3 0.0 - 2.0 % Absolute Neutrophils 1.62 (L) 1.80 - 7.70 K/uL Absolute Lymphocytes 1.05 1.00 - 4.80 K/ul Absolute Monocytes 0.49 0.00 - 1.10 K/uL Absolute Eosinophils 0.12 0.00 - 0.70 K/uL Absolute Basophils 0.01 0.00 - 0.20 K/uL URINALYSIS WITH MICROSCOPIC EXAM Collection Time: 08/15/23 11:31 AM Result Value Ref Range Color, Urine Yellow Light Yellow, Yellow, Dark Yellow Clarity, Urine Slightly Cloudy (A) Clear Glucose, Urine Negative Negative mg/dL Bilirubin, Urine Small (A) Negative Ketone, Urine Trace (A) Negative mg/dL Specific [place], Urine 1.025 1.003 - 1.030 Blood, Urine Small (A) Negative pH, Urine 6.0 5.0 - 7.5 Units Protein, Urine 100 (A) Negative mg/dL Urobilinogen, Urine 1.0 0.2, 1.0 mg/dL Nitrite, Urine Negative Negative Esterase, Urine Trace (A) Negative RBC, Urine 3-5 (A) 0 - 2 /HPF WBC, Urine 3-5 (A) 0 - 2 /HPF Bacteria, Urine 26-50 (A) 0 - 25 /HPF Squamous Epithelial Cells, Urine Many (A) None /HPF URINALYSIS WITH MICROSCOPIC EXAM Collection Time: 08/31/23 3:31 PM Result Value Ref Range Color, Urine Yellow Colorless, Light Yellow, Yellow, Dark Yellow Clarity, Urine Slightly Cloudy (A) Clear Glucose, Urine Negative Negative mg/dL Bilirubin, Urine Negative Negative Ketone, Urine Negative Negative mg/dL Specific [place], Urine 1.031 (H) 1.003 - 1.030 Blood, Urine Negative Negative pH, Urine 7.0 5.0 - 7.5 Units Protein, Urine 100 (A) Negative mg/dL Urobilinogen, Urine 2.0 (A) Normal mg/dL Nitrite, Urine Negative Negative Esterase, Urine Moderate (A) Negative RBC, Urine 6-9 (A) 0 - 2 /HPF WBC, Urine 20-29 (A) 0 - 2 /HPF Bacteria, Urine 26-50 (A) 0 - 25 /HPF Squamous Epithelial Cells, Urine Many (A) None /HPF Hyaline, Cast, Urine 1-4 (A) None /LPF REVIEW OF SYSTEMS: Unremarkable MENTAL STATUS EVALUATION: General Appearance: clean and appropriately dressed Attitude/Behavior: cooperative, open and friendly, engaged Motor Behavior/Muscle Strength & Tone/Gait & Station: no abnormal movements Speech: normal, rate, tone and volume and goal directed Mood: irritable Affect: irritable Thought Process: tangential Thought Content/Perceptions: denies suicidal [...] Insight: fair Judgement: fair Impulse Control: fair [place] Suicide Severity Rating Scale Results 09/18/2023 15:30 [place] SUICIDE SEVERITY RATING SCALE (C-SSRS) Have [...] on self improvement - currently working of [employer] hierarchy of needs. Pt enjoys these activities. [...] tablet causes her to feel too sedated. Pt was started on gabapentin for pain management by medical provider. [...] Drug Monitoring Program in compliance with the [facility] regulations before prescribing a controlled substance. Laboratory/Diagnostics: Valproic acid level Community support/Counseling: Continue to offer psychotherapy utilizing Supportive listening as adjunct to evaluation, managementand prescription of psychiatric medications. Continue with [facility] Referral placed for individual therapy to work on positive communication and coping skills related to chronic mental illness and relationship with support PCP/medical: Continue to follow up with primary care provider and/or medical specialists as scheduled/appropriate. Return Appointment: Kathy Tessie Riosmasha is to return in 8 weeks. Sooner PRN. This treatment plan was [...] the urgency and severity of symptoms. Kathy Riosmasha was able to verbalize understanding of the [...] therapy, including Supportive listening Paty Haynes, MSN, CODING DIRECTOR, PMHNP-[facility] Psychiatry [facility] Current Outpatient Medications Medication Sig Dispense Refill FLUoxetine HCl 20 MG Oral Capsule (PROzac) [...] hours as needed. 100 Tab0 Saline Nasal [place] 0.65 % Nasal Solution (Heard Nasal [place]) Two sprays in each nostril as needed [...] COVID-19 mRNA Vaccine 12 years and above [employer] 30 MCG/0.3 ML IM SUSP Inject into [...] daily as needed for Anxiety. 10 Tablet0 Famotidine 20 MG Oral Tablet (Pepcid) Take 1 Tablet by mouth at bedtime. 90 Tablet 3 No current facility-administered medications for this visit. documented in this encounter Plan of Treatment Upcoming Encounters Date Type Department Care Team (Late st Contact Info) Description 09/21/2023 1:00 PM EDT Nurse Only Urology, [address] [place] [address] Antonio, Nurse Urology [address] [place] [address] 10/11/2023 2:30 PM EDT Imaging Radiology [facility] 1st Floor, [address] [place] [address] 10/11/2023 3:00 PM EDT Imaging Radiology [address] [place] [address] 10/13/2023 1:00 PM EDT Nurse Only Ancillary [address] [place] [address] Antonio Nurse Annual Wellness [address] [place] [address] 10/19/2023 2:30 PM EDT Telemedicine Nutrition & Weight Management, [facility] 132 [facility] [place] [address] Maria E Cazares RDN 132 [facility] [place] [address] 10/27/2023 11:00 AM EDT Office Visit Sleep Disorders Ctr [address] [place] [phone] Charmaine Mckeon DO [address] [place] [address] 11/06/2023 3:00 PM EDT Office Visit Psychiatry, [facility] [address] [place] [address] Paty Haynes CRNP [address] [place] [address] 12/01/2023 10:00 AM EDT Laboratory Laboratory [facility] [place] [address] [place] [address] Shilpa [facility] 200 [facility] [place] [address] 12/08/2023 2:30 PM EDT Office Visit Hematology/Oncology [facility] [address] [place] [address] Marietta Salazar CRNP 400 [facility] [place] [address] 12/11/2023 10:45 AM EDT Office Visit Urology, [facility] 132 [facility] [place] [address] Mendel Macedo MD [address] [address] [place] [address] 12/13/2023 1:30 PM EDT Cardiac Studies Cardiac Studies, [facility] 132 [facility] [place] [address] 12/21/2023 2:40 PM EDT Office Visit General Internal Medicine [facility] [address] [place] [address] Jose M Seth MD [address] [facility] [place] [address] 01/25/2024 11:00 AM EDT Telemedicine Genetics HemOnc, [facility] 100 [place] [address] Tonya Jovel, MS [address] [place] [address] Scheduled Orders Name Type Priority Associated Diagnoses Orde r Schedule VALPROIC ACID LEVEL Lab Routine PETER (generalized anxiety disorder) 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) Every 3 Months for 4 Occurrences starting 09/18/2023 until 09/17/2024 Scheduled Referrals Name Type Priority Associated Diagnoses Orde r Schedule ADULT/PEDS PSYCHOLOGY REFERRAL OP Referral Within 30 days (routine) PETER (generalized anxiety disorder) 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 Care Teams Teaching Music Lessons Relationship Specialty Start Date End Date Jose M Seth MD 200 [place] [address] PCP - General Internal Medicine 11/21/11 documented as of this encounter
--- OUTSIDE RECORDS SUMMARY | 2023-12-07 12:16 | External Medical Summary | Summary of Care ---
Author Name Unknown Organization [facility] Address [address] [place] [address] Phone [phone] Care Team Providers Care Echo Vascular Tech Name Role Phone Jose M Seth MD Primary Care Provider + Reason for Visit * Reason Onset Date Comments Advice 09/01/2023 Appointment 09/01/2023 Pt returning krista se call - Advised pt of nurses msg. No further questions, pt understanding. Encounter Details Date Type Department Care Team (Late st Contact Info) Description 09/01/2023 Telephone Urology, [facility] [address] [place] [address] Services, Scheduling [address] [place] [address] Advice; Appointment (Pt returning nurse ca... Allergies [...] 100 Tab 0 04/15/2020 Active Saline Nasal [place] 0.65 % Nasal Solution ([place] Nasal [place]) Two sprays in each nostril as needed [...] Jose M Seth MD Pharmacy: [facility] 08/09/2013 12/16/2015 Dementia 07/19/2013 2017 Encounter [...] mRNA, LNP-s, No Pre serve, 2-Dose Series ([employer]) 02/18/2021,08/10/2020,07/06/2020 COVID-19, MRNA-LNP, 23-24, P F, [...] will miss this week of PTNS and picker and packer next week as scheduled. * Telephone Encounter [...] 09/06/2023 1:00 PM EDT Nurse Only Urology, [facility] [address] [place] [address] Antonio, Nurse Urology [facility] [address] [place] [address] 09/13/2023 3:00 PM EDT Office Visit Cardiology, [facility] 132 [facility] [place] [address] Damaris Ramírez CRNP [address] [place] [address] 09/18/2023 3:00 PM EDT Office Visit Psychiatry, [facility] 200 [facility] [place] [address] Paty Haynes CRNP 200 [facility] [place] [address] 2023 1:30 PM EDT Nurse Only Ancillary [facility] 200 [facility] [place] [address] Im, Nurse Annual Wellness [facility] 200 [facility] [place] [address] 10/11/2023 2:30 PM EDT Imaging Radiology [facility] 1st Floor, [place] 132 [facility] [place] [address] 10/11/2023 3:00 PM EDT Imaging Radiology [facility] 132 [facility] [place] [address] 10/19/2023 2:30 PM EDT Telemedicine Nutrition & Weight Management, [facility] [address] [place] [address] Maria E Cazares RDN [address] [place] [address] 10/27/2023 11:00 AM EDT Office Visit Sleep Disorders Ctr [facility] 132 [facility] [place] [address] Charmaine Mckeon DO 132 [facility] [place] [address] 12/01/2023 10:00 AM EDT Laboratory Laboratory [facility] 200 [facility] [place] [phone] [facility] 200 [facility] [place] [address] 12/08/2023 2:30 PM EDT Office Visit Hematology/Oncology [facility] 200 [facility] [place] [phone] Marietta Salazar CRNP [address] [place], [place] [address] [address] 12/11/2023 10:45 AM EDT Office Visit Urology, [facility] 132 [facility] [place] [address] Mendel Macedo MD [address] [place] [address] 12/21/2023 2:40 PM EDT Office Visit General Internal Medicine [facility] 200 [facility] [place] [address] Jose M Seth MD 200 [facility] [place] [address] 01/25/2024 11:00 AM EDT [facility] [address] [place] [address] Tonya Jovel, MS 132 [facility] [place] [address] Health Maintenance Due Date Last Done Comments [...] and were consensually agreed upon. Care Teams Echo Vascular Tech Relationship Specialty Start Date End Date Jose M Seth MD 200 [facility] [place] [address] PCP - General Internal Medicine 11/21/11 documented as of this encounter
--- OUTSIDE RECORDS SUMMARY | 2023-12-07 12:16 | External Medical Summary | Summary of Care ---
Author Name Unknown Organization [facility] Address [address] [place] [address] Phone [phone] Care Team Providers Care Brusher Hand Name Role Phone Jose M Seth MD Primary Care Provider + Encounter Details Date Type Department Care Team (Late st Contact Info) Description 09/05/2023 Population Health External Data Unspecified Department Allergies Active Allergy Reactions Criticality Noted Date [...] as of this encounter (statuses as of 09/05/2023) Medications Medication Sig Dispensed Refills Start Date [...] 100 Tab 0 04/15/2020 Active Saline Nasal [place] 0.65 % Nasal Solution ([place]y Nasal [place]) Two sprays in each nostril as needed [...] as of this encounter (statuses as of 09/05/2023) Active Problems Problem Noted Date Diagnosed Date [...] PSG -- AHI 10.7, <89% 128 mins [facility] Returned machine Jun 2013 Nocturnal hypoxemia 06/18/2012 Overview: 2 LPM [facility] 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 [place] [address] Nurse Antonio Urology [facility] [address] [place] [address] 09/13/2023 3:00 PM EDT Office Visit Cardiology, [facility] 132 [facility] [place] [address] Damaris Ramírez CRNP 132 [facility] [place] [address] 09/18/2023 3:00 PM EDT Office Visit Psychiatry, [facility] [address] [place] [address] Paty Haynes CRNP [address] [place] [address] 2023 1:30 PM EDT Nurse Only Ancillary [facility] [address] [place] [address] Im, Nurse Annual Wellness [facility] [address] [address] 10/11/2023 2:30 PM EDT Imaging Radiology [facility] 1st [facility] 132 [facility] [place] [address] 10/11/2023 3:00 PM EDT Imaging Radiology [facility] 132 [facility] [place] [address] 10/19/2023 2:30 PM EDT Telemedicine Nutrition & Weight Management, [facility] 132 [facility] [place] [address] Maria E Cazares RDN 132 [facility] [address] 10/27/2023 11:00 AM EDT Office Visit Sleep Disorders Ctr [facility] 132 [facility] [place] [phone] Charmaine Mckeon DO 132 [facility] [place] [address] 12/01/2023 10:00 AM EDT Laboratory Laboratory [facility] [address] [address] [facility] 200 [address] [facility] [place] [address] 12/08/2023 2:30 PM EDT Office Visit Hematology/Oncology [facility] [address] [phone] Marietta Salazar CRNP 400 [facility] [place] [id number] 12/11/2023 10:45 AM EDT Office Visit Urology, [facility] 132 [facility] [place] [address] Mendel Macedo MD [address] [place] [address] [place] [id number] 12/21/2023 2:40 PM EDT Office Visit General Internal Medicine [facility] [address] [address] Jose M Seth MD 200 [facility] [place] [address] 01/25/2024 11:00 AM EDT Telemedicine Genetics HemOn, [facility] [address] [place] [address] Tonya Jovel, [place] [address] [place] [address] Health Maintenance Due Date Last Done Comments [...] and were consensually agreed upon. Care Teams Brusher Hand Relationship Specialty Start Date End Date Jose M Seth MD [address] [facility] [place], [place] [address] PCP - General Internal Medicine 11/21/11 documented as of this encounter
--- OUTSIDE RECORDS SUMMARY | 2023-12-07 12:17 | External Medical Summary | Summary of Care ---
Author Name Unknown Organization [facility] Address [address] [place] [address] Phone [phone] Care Team Providers Care Digital Assistant Name Role Phone Jose M Seth MD Primary Care Provider + Encounter Details Date Type Department Care Team (Late st Contact Info) Description 08/20/2023 Telephone Hematology/Oncology [facility] 200 [facility] [place] [address] Marietta Salazar CRNP 400 [place] [address] Allergies Active Allergy Reactions Criticality Noted Date [...] as of this encounter (statuses as of 08/22/2023) Medications Medication Sig Dispensed Refills Start Date [...] 100 Tab 0 04/15/2020 Active Saline Nasal [place] 0.65 % Nasal Solution ([place] Nasal [place]) Two sprays in each nostril as needed [...] as of this encounter (statuses as of 08/22/2023) Active Problems Problem Noted Date Diagnosed Date [...] -- AHI 10.7, <89% 128 mins [facility] Returned machine Jun 2013 Nocturnal hypoxemia 06/18/2012 Overview: 2 LPM [facility] 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 documented as of this encounter (statuses as of 08/22/2023) Resolved Problems Problem Noted Date Diagnosed Date [...] M Seth MD Pharmacy: Maricruz Foster [facility] 08/09/2013 12/16/2015 Dementia 07/19/2013 2017 Encounter for [...] as of this encounter (statuses as of 08/22/2023) Immunizations Name Administration Dates Next Due COVID-19 mRNA, LNP-s, No Pre serve, 2-Dose Series ([employer]) 02/18/2021,08/10/2020,07/06/2020 COVID-19, MRNA-LNP, 23-24, P F, 30 MCG/0.3 mL, 12 YRS AND ABOVE, IM ([facility]) 04/11/2023 Covid-19, Mrna, Lnp-s, Pf, B ivalent, 30 Mcg, IM, 12 yrs and above ([employer]) 03/22/2022 Pneumococcal Conjugate Vacc, 13 Valent (Prevnar) [...] encounter Miscellaneous Notes * Telephone Encounter - Eleanor Nur LPN - 08/22/2023 8:35 AM EDT Please set up patient for f/u visit with Dr Roblero. * Telephone Encounter - Vijaya Roblero MD - 08/22/2023 8:32 AM EDT Two visits please. One for annual and second in procedure room. Thank you. * Telephone Encounter - Carrie Engel MED ASSIST - 08/21/2023 9:58 AM EDT Lmom to call back to schedule * Telephone Encounter - Maria Del Rosario Davenport LPN - 08/21/2023 8:11 AM EDT Scheduling, pt is overdue for yearly follow up ( per last note in apr 2022) and would like port out Dr roblero, did you want to do this in one visit or two visits? * Telephone Encounter - Marietta Salazar CRNP - 08/20/2023 2:32 PM EDT Patient overdue for follow up with Dr. Vijaya Roblero. Patient requested I send message to help facilitate scheduling. Please follow up with patient. Would also like to discuss having mediport removed. documented in this encounter Plan of Treatment Upcoming Encounters Date Type Department Care Team (Late st Contact Info) Description 08/23/2023 1:00 PM EDT Nurse Only UrologySanam [facility] [place] [address] [place], [place] [address] Antonio Nurse Urology [place] [address] [place] [address] 08/31/2023 1:00 PM EDT Nurse Only Urology, [facility] [place] [address] [place] [address] Antonio Nurse Urology [place] [address] [place] [address] 09/06/2023 1:00 PM EDT Nurse Only UrologySanam [place] [address] [place], [place] [address] Antonio Nurse Urology [place] [address] [place] [address] 09/13/2023 3:00 PM EDT Office Visit Cardiology, [facility] [place] [address] [place], [place] [address] Damaris Ramírez CRNP [address] [place] [address] 09/18/2023 3:00 PM EDT Office Visit Psychiatry, [address] [place] [address] Paty Haynes CRNP [address] [place] [address] 2023 1:30 PM EDT Nurse Only Ancillary [facility] [address] [place] [address] Im, Nurse Annual Wellness [facility] [address] [place] [address] 10/11/2023 2:30 PM EDT Imaging [facility] 132 [facility] [place] [address] 10/11/2023 3:00 PM EDT Imaging Radiology [facility] 132 [facility] [address] 10/19/2023 2:30 PM EDT Telemedicine Nutrition & Weight Management, [facility] 132 [place] [address] Maria E Cazares RDN [address] [place] [address] 10/27/2023 11:00 AM EDT Office Visit Sleep Disorders Ctr [facility] 132 [place] [address] Charmaine Mckeon DO [address] [place] [address] 12/01/2023 10:00 AM EDT Laboratory Laboratory [facility] [place] [address] [place] [address] Rosanna Massey [facility] [address] [facility] [place] [address] 12/08/2023 2:30 PM EDT Office Visit Hematology/Oncology [facility] [place] [address] [place] [address] Marietta Salazar CRNP 400 [facility] [place] [address] 12/11/2023 10:45 AM EDT Office Visit Urology, [facility] [address] [place] [address] Mendel Macedo MD [address] [place] [address] [place] [address] 12/21/2023 2:40 PM EDT Office Visit General Internal Medicine [facility] 200 [facility] [place] [address] Jose M Seth MD 200 [facility] [place] [address] 01/25/2024 11:00 AM EDT Telemedicine Genetics [facility], [address] [address] Tonya [place], [place] [facility] [place] [address] Health Maintenance Due Date Last Done Comments [...] and were consensually agreed upon. Care Teams Digital Assistant Relationship Specialty Start Date End Date Jose M Seth MD 200 [place] [address] PCP - General Internal Medicine 11/21/11 documented as of this encounter
--- OUTSIDE RECORDS SUMMARY | 2023-12-07 12:17 | External Medical Summary | Summary of Care ---
Author Name Unknown Organization [facility] Address [address] [place] [address] Phone [phone] Care Team Providers Care Electronic Organ Technician Name Role Phone Jose M Seth MD Primary Care Provider + Encounter Details Date Type Department Care Team (Late st Contact Info) Description 08/23/2023 1:00 PM EDT Nurse Only Urology, [facility] [place] [address] [place] [address] AlvarezNurse lily Urology [facility] [address] [place] [address] Allergies Active Allergy Reactions Criticality Noted Date [...] as of this encounter (statuses as of 08/23/2023) Medications Medication Sig Dispensed Refills Start Date [...] 100 Tab 0 04/15/2020 Active Saline Nasal [place] 0.65 % Nasal Solution ([place] Nasal [place]) Two sprays in each nostril as needed [...] as of this encounter (statuses as of 08/23/2023) Active Problems Problem Noted Date Diagnosed Date [...] PSG -- AHI 10.7, <89% 128 mins [facility] Returned machine Jun 2013 Nocturnal hypoxemia 06/18/2012 Overview: 2 LPM [facility] 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 documented as of this encounter (statuses as of 08/23/2023) Resolved Problems Problem Noted Date Diagnosed Date [...] Jose M Seth MD Pharmacy: Maricruz Foster [facility] 08/09/2013 12/16/2015 Dementia 07/19/2013 [...] as of this encounter (statuses as of 08/23/2023) Immunizations Name Administration Dates Next Due COVID-19 mRNA, LNP-s, No Pre serve, 2-Dose Series ([employer]) 02/18/2021,08/10/2020,07/06/2020 COVID-19, MRNA-LNP, 23-24, P F, 30 MCG/0.3 mL, 12 YRS AND ABOVE, IM ([employer] 04/11/2023 Covid-19, Mrna, Lnp-s, Pf, B ivalent, [...] Nursing Notes * Barbara Yeung LPN - 08/23/2023 4:28 PM EDT Patient in office for PTNS treatment #2. left ankle used. Tolerated 30 min treatment on level 9, patient advanced to 12. Patient reports symptoms are same. documented in this encounter Plan of Treatment Upcoming Encounters Date Type Department Care Team (Late st Contact Info) Description 08/31/2023 1:00 PM EDT [facility] 132 [facility] [place] [address] Nurse Erika Alvarezy [place] [address] [place] [address] 09/06/2023 1:00 PM EDT [facility] 132 [facility] [place] [address] Nurse Yong Alvarez [address] [place] [address] 09/13/2023 3:00 PM EDT Office Visit [facility], [facility] [address] [address] Damaris Ramírez, JA [address] [place] [address] 09/18/2023 3:00 PM EDT Office Visit Psychiatry, [facility] [address] [place] [address] Paty Haynes CRNP [address] [place] [address] 2023 1:30 PM EDT Nurse Only Ancillary [facility] [address] [place] [address] Im, Nurse Annual Wellness [facility] [address] [place] [address] 10/11/2023 2:30 PM EDT Imaging Radiology [facility] [address] [facility] [address] [place] [address] 10/11/2023 3:00 PM EDT Imaging Radiology [facility] 132 [facility] [place] [address] 10/19/2023 2:30 PM EDT Telemedicine Nutrition & Weight Management, [facility] 132 [facility] [place] [address] Maria E Cazares RDN [address] [place] [address] 10/27/2023 11:00 AM EDT Office Visit Sleep Disorders Ctr [facility] [address] [place] [phone] Charmaine Mckeon DO [address] [place] [address] 12/01/2023 10:00 AM EDT Laboratory Laboratory [facility] [address] [place] [address] Rosanna Massey [facility] 200 [facility] [place] [address] 12/08/2023 2:30 PM EDT Office Visit Hematology/Oncology [facility] 200 [facility] [place] [phone] Marietta Salazar CRNP 400 [place] [address] 12/11/2023 10:45 AM EDT Office Visit Urology, [facility] [address] [place] [address] Mendel Macedo MD [address] [id number] 12/21/2023 2:40 PM EDT Office Visit General Internal Medicine [facility] 200 [facility] [place] [address] Jose M Seth MD 200 [facility] [place] [address] 01/25/2024 11:00 AM EDT Telemedicine Genetics HemOn, [address] [address] Tonya [place]voel, [place] 132 [facility] [place] [address] Health Maintenance Due Date Last Done Comments [...] were consensually agreed upon. Care Teams Electronic Organ Technician Relationship Specialty Start Date End Date Jose M Seth MD 200 [place] [address] PCP - General Internal Medicine 11/21/11 documented as of this encounter
--- OUTSIDE RECORDS SUMMARY | 2023-12-07 12:17 | External Medical Summary | Summary of Care ---
Author Name Unknown Organization [facility] Address [address] [place] [address] Phone [phone] Care Team Providers Care Homicide Squad Commanding Officer Name Role Phone Jose M Seth MD Primary Care Provider + Encounter Details Date Type Department Care Team (Late st Contact Info) Description 08/20/2023 Telephone Hematology/Oncology [facility] 200 [facility] [place] [facility] [place] [address] Marietta Salazar CRNP 400 [place] [address] Allergies Active Allergy Reactions Criticality Noted [...] 100 Tab 0 04/15/2020 Active Saline Nasal [place] 0.65 % Nasal Solution ([place] Nasal [place]) Two sprays in each nostril as needed [...] Jose M Seth MD Pharmacy: Maricruz Foster [facility] 08/09/2013 12/16/2015 Dementia 07/19/2013 2017 Encounter [...] mRNA, LNP-s, No Pre serve, 2-Dose Series ([employer]) 02/18/2021,08/10/2020,07/06/2020 COVID-19, MRNA-LNP, 23-24, P F, 30 MCG/0.3 mL, 12 YRS AND ABOVE, IM ([employer] [facility]) 04/11/2023 Covid-19, Mrna, Lnp-s, Pf, B ivalent, 30 Mcg, IM, 12 yrs and above ([employer]) 03/22/2022 Pneumococcal Conjugate Vacc, 13 Valent (Prevnar) [...] encounter Miscellaneous Notes * Telephone Encounter - Vijaya Roblero MD [...] 08/23/2023 1:00 PM EDT [facility] [address] [place] [address] Alvarez, Nurse Urology [place] [address] [place] [address] 08/31/2023 1:00 PM EDT Nurse [facility], [facility] [address] [place] [address] Alvarez, Nurse Urology [place] [address] [place] [address] 09/06/2023 1:00 PM EDT Nurse Only [facility], [facility] [address] [place] [address] [facility], Nurse Urology [facility] [address] [place] [address] 09/13/2023 3:00 PM EDT Office Visit Cardiology, [facility] [address] [place] [address] Damaris Ramírez CRNP [address] [place] [address] 09/18/2023 3:00 PM EDT Office Visit Psychiatry, Brian Massey [address] [place] [address] [address] Paty Haynes CRNP 200 [place] [address] 2023 1:30 PM EDT Nurse Only Ancillary Brian Massey [place] [address] [address] Im, Nurse Annual Wellness [facility] [address] [place] [address] 10/11/2023 2:30 PM EDT Imaging Radiology [facility] 1st Floor, [place] [facility] [place] [address] 10/11/2023 3:00 PM EDT Imaging Radiology [facility] 132 [facility] [place] [address] 10/19/2023 2:30 PM EDT Telemedicine Nutrition & Weight Management, [facility] 132 [facility] [place] [address] Maria E Cazares RDN [address] [place] [address] 10/27/2023 11:00 AM EDT Office Visit Sleep Disorders Ctr [facility] 132 [facility] [place] [phone] Charmaine Mckeon DO [address] [place] [address] 12/01/2023 10:00 AM EDT Laboratory Laboratory [facility] [address] [place] [phone] [place] 200 [facility] [place] [address] 12/08/2023 2:30 PM EDT Office Visit Hematology/Oncology [facility] [address] [place] [phone] Marietta Salazar CRNP [address] [place] [address] [place] [address] 12/11/2023 10:45 AM EDT Office Visit Urology, [facility] 132 [facility] [place] [address] Mendel Macedo MD [address] [place] [address] [place] [address] 12/21/2023 2:40 PM EDT Office Visit General Internal Medicine [facility] 200 [facility] [place] [address] Jose M Seth MD 200 [facility] [place] [address] 01/25/2024 11:00 AM EDT Telemedicine Genetics HemOn, [facility] 100 [place] [address] Tonya Jovel, MS [address] [place] [address] Health Maintenance Due Date Last Done Comments [...] and were consensually agreed upon. Care Teams Homicide Squad Commanding Officer Relationship Specialty Start Date End Date Jose M Seth MD 200 [place] [address] PCP - General Internal Medicine 11/21/11 documented as of this encounter
--- OUTSIDE RECORDS SUMMARY | 2023-12-07 12:17 | External Medical Summary | Summary of Care ---
Author Name Unknown Organization [facility] Address [address] [place] [address] Phone [phone] Care Team Providers Care Operator Weapon Locating Radar Name Role Phone Jose M Seth MD Primary Care Provider + Encounter Details Date Type Department Care Team (Late st Contact Info) Description 08/20/2023 Telephone Hematology/Oncology [facility] 200 [facility] [place] [address] Marietta Salazar CRNP [address] [place] [address] Allergies Active Allergy Reactions Criticality Noted [...] as of this encounter (statuses as of 08/25/2023) Medications Medication Sig Dispensed Refills Start Date [...] 100 Tab 0 04/15/2020 Active Saline Nasal [place] 0.65 % Nasal Solution ([place] Nasal [place]) Two sprays in each nostril as needed [...] as of this encounter (statuses as of 08/25/2023) Active Problems Problem Noted Date Diagnosed Date [...] PSG -- AHI 10.7, <89% 128 mins [facility] Returned machine Jun 2013 Nocturnal hypoxemia 06/18/2012 Overview: 2 LPM [facility] 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 documented as of this encounter (statuses as of 08/25/2023) Resolved Problems Problem Noted Date Diagnosed Date [...] Jose M Seth MD Pharmacy: Maricruz Foster [facility] 08/09/2013 12/16/2015 Dementia 07/19/2013 2017 Encounter for [...] as of this encounter (statuses as of 08/25/2023) Immunizations Name Administration Dates Next Due COVID-19 mRNA, LNP-s, No Pre serve, 2-Dose Series (Soundtracker) 02/18/2021,08/10/2020,07/06/2020 COVID-19, MRNA-LNP, 23-24, P F, 30 MCG/0.3 mL, 12 YRS AND ABOVE, IM ([facility]) 04/11/2023 Covid-19, Mrna, Lnp-s, Pf, B ivalent, 30 Mcg, IM, 12 yrs and above (Soundtracker) 03/22/2022 Pneumococcal Conjugate Vacc, 13 Valent (Prevnar) [...] Description 08/31/2023 1:00 PM EDT [facility] [address] [place] [address] Antonio Nurse Urology [facility] [address] [place] [address] 09/06/2023 1:00 PM EDT [facility] [address] [place] [address] Alvarez, Nurse Urology [facility] [address] [place] [address] 09/13/2023 3:00 PM EDT Office Visit Cardiology, [facility] [address] [place] [address] Damaris Ramírez CRNP [address] [place], [place] [address] 09/18/2023 3:00 PM EDT Office Visit Psychiatry, [facility] [address] [place] [address] Paty Haynes CRNP [address] [place] [address] 2023 1:30 PM EDT Nurse Only Ancillary [facility] Shilpa [place] [address] [place] [address] Im, Nurse Annual Wellness [facility] [address] [place] [address] 10/11/2023 2:30 PM EDT Imaging Radiology [facility] 1st Floor, [place] 132 [facility] [place] [address] 10/11/2023 3:00 PM EDT Imaging Radiology [facility] 132 [facility] [place] [address] 10/19/2023 2:30 PM EDT Telemedicine Nutrition & Weight Management, [facility] 132 [facility] [place] [address] Maria E Cazares RDN 132 [facility] [place] [address] 10/27/2023 11:00 AM EDT Office Visit Sleep Disorders Ctr [facility] 132 [facility] [place] [phone] Charmaine Mckeon DO 132 [facility] [place] [address] 12/01/2023 10:00 AM EDT Laboratory Laboratory [facility] [address] [place] [phone] Shilpa, [facility] 200 [facility] [place] [address] 12/08/2023 2:30 PM EDT Office Visit Hematology/Oncology [facility] [address] [place] [phone] Marietta Salazar CRNP [address] [place] [address] [place] [address] 12/11/2023 10:45 AM EDT Office Visit Urology, [facility] 132 [facility] [place] [address] Mendel Macedo MD [address] [place] [address] [place] [address] 12/21/2023 2:40 PM EDT Office Visit General Internal Medicine [facility] 200 [facility] [place] [address] Jose M Seth MD 200 [facility] [place] [address] 01/25/2024 11:00 AM EDT Telemedicine Genetics HemOnc, [facility] [address] [place] [address] Tonya [place], [place] [address] [place] [address] Health Maintenance Due Date Last Done Comments [...] and were consensually agreed upon. Care Teams Operator Weapon Locating Radar Relationship Specialty Start Date End Date Jose M Seth MD 200 [place] [address] PCP - General Internal Medicine 11/21/11 documented as of this encounter
--- OUTSIDE RECORDS SUMMARY | 2023-12-07 12:17 | External Medical Summary | Summary of Care ---
Author Name Unknown Organization [facility] Address [address] [place] [address] Phone [phone] Care Team Providers Care Food Cooking Machine Operator Name Role Phone Jose M Seth MD Primary Care Provider + Reason for Visit * Reason Onset Date Comments Test Results 08/17/2023 Encounter Details Date Type Department Care Team (Late st Contact Info) Description 08/17/2023 Telephone General Internal Medicine [facility] 200 [facility] [place] [phone] Jose M Seth MD 200 [facility] [place] [address] Test Results Allergies Active Allergy Reactions Criticality [...] as of this encounter (statuses as of 08/30/2023) Medications Medication Sig Dispensed Refills Start Date [...] 100 Tab 0 04/15/2020 Active Saline Nasal [place] 0.65 % Nasal Solution ([place] Nasal [place]) Two sprays in each nostril as needed [...] as of this encounter (statuses as of 08/30/2023) Active Problems Problem Noted Date Diagnosed Date [...] as of this encounter (statuses as of 08/30/2023) Resolved Problems Problem Noted Date Diagnosed Date [...] 10/15/13 PCP: Jose M Seth MD [facility] 08/09/2013 12/16/2015 Dementia 07/19/2013 2017 [...] as of this encounter (statuses as of 08/30/2023) Immunizations Name Administration Dates Next Due COVID-19 mRNA, LNP-s, No Pre serve, 2-Dose Series (Keybroker) 02/18/2021,08/10/2020,07/06/2020 COVID-19, MRNA-LNP, 23-24, P F, 30 MCG/0.3 mL, 12 YRS AND ABOVE, IM ([employer] [facility]) 04/11/2023 Covid-19, Mrna, Lnp-s, Pf, B ivalent, [...] encounter Miscellaneous Notes * Telephone Encounter - Lisa Salazar MED ASSIST - 08/17/2023 2:30 PM EDT Called patient, left message to return call. MyG sent * Telephone Encounter - Lisa Salazar MED ASSIST - 08/17/2023 2:29 PM EDT ----- Message from Jose M Seth MD sent at 08/17/2023 2:15 PM EDT ----- Urine with a lot of squamous cells which maybe contamination, can she please repeat the urine againmaking sure washes hand prior, want to get a clean specimen to see if blood or not documented in this encounter Plan of Treatment Upcoming Encounters Date Type Department Care Team (Late st Contact Info) Description 08/31/2023 1:00 PM EDT [facility] [address] [place] [address] Nurse Yong Alvarez [address] [place] [address] 09/06/2023 1:00 PM EDT Nurse Only Urology, [facility] 132 [facility] [place] [address] Antonio Nurse Urology [facility] [address] [place] [address] 09/13/2023 3:00 PM EDT Office Visit Cardiology, [facility] 132 [facility] [place] [address] Damaris Ramírez CRNP [address] [place] [address] 09/18/2023 3:00 PM EDT Office Visit Psychiatry, [facility] [address] [place] [address] Paty Haynes CRNP [address] [place] [address] 2023 1:30 PM EDT Nurse Only Ancillary [facility] [address] [place] [address] Im, Nurse Annual Wellness [facility] [address] [place] [address] 10/11/2023 2:30 PM EDT Imaging Radiology [facility] 1st [facility] 132 [facility] [place] [address] 10/11/2023 3:00 PM EDT Imaging Radiology [facility] 132 [facility] [place] [address] 10/19/2023 2:30 PM EDT Telemedicine Nutrition & Weight Management, [facility] 132 [facility] [place] [address] Maria E Cazares RDN 132 [facility] [place] [address] 10/27/2023 11:00 AM EDT Office Visit Sleep Disorders Ctr [facility] 132 [facility] [phone] Charmaine Mckeon DO 132 [facility] [place] [address] 12/01/2023 10:00 AM EDT Laboratory Laboratory [facility] 200 [facility] [place] [address] Shilpa [facility] 200 [facility] [place] [facility] [place] [address] 12/08/2023 2:30 PM EDT Office Visit Hematology/Oncology [facility] 200 [facility] [place] [address] Marietta Salazar CRNP 400 [place] [address] 12/11/2023 10:45 AM EDT Office Visit Urology, [facility] 132 [place] [address] Mendel Macedo MD [address] [place] [id number] 12/21/2023 2:40 PM EDT Office Visit General Internal Medicine [facility] 200 [facility] [place] [facility] [place] [address] Jose M Seth MD 200 [facility] [place] [address] 01/25/2024 11:00 AM EDT Telemedicine Genetics HemOn, [facility] 100 [place] [address] Tonya [place]vel, [place] 132 [facility] [place] [address] Health Maintenance Due Date Last Done Comments [...] and were consensually agreed upon. Care Teams Food Cooking Machine Operator Relationship Specialty Start Date End Date Jose M Seth MD 200 [facility] [place] [address] PCP - General Internal Medicine 11/21/11 documented as of this encounter
--- OUTSIDE RECORDS SUMMARY | 2023-12-07 12:17 | External Medical Summary | Summary of Care ---
Author Name Unknown Organization [facility] Address [address] [place] [address] Phone [phone] Care Team Providers Care Assembly Line Inspector Name Role Phone Jose M Seth MD Primary Care Provider + Reason for Visit * Reason Onset Date Comments Advice 08/29/2023 Encounter Details Date Type Department Care Team (Late st Contact Info) Description 08/29/2023 Telephone General Internal Medicine [facility] 200 [place] [address] Jose M Seth MD 200 [place] [address] Advice Allergies Active Allergy Reactions Criticality Noted [...] as of this encounter (statuses as of 08/29/2023) Medications Medication Sig Dispensed Refills Start Date [...] 100 Tab 0 04/15/2020 Active Saline Nasal [place] 0.65 % Nasal Solution ([place]ogg Nasal [place]) Two sprays in each nostril as needed [...] as of this encounter (statuses as of 08/29/2023) Active Problems Problem Noted Date Diagnosed Date [...] PSG -- AHI 10.7, <89% 128 mins [facility] Returned machine Jun 2013 Nocturnal hypoxemia 06/18/2012 Overview: 2 LPM [facility] 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 documented as of this encounter (statuses as of 08/29/2023) Resolved Problems Problem Noted Date Diagnosed Date [...] Jose M Seth MD Pharmacy: Maricruz Foster [facility] 08/09/2013 12/16/2015 Dementia 07/19/2013 2017 Encounter [...] as of this encounter (statuses as of 08/29/2023) Immunizations Name Administration Dates Next Due COVID-19 mRNA, LNP-s, No Pre serve, 2-Dose Series (Robot App Store) 02/18/2021,08/10/2020,07/06/2020 COVID-19, MRNA-LNP, 23-24, P F, 30 MCG/0.3 mL, 12 YRS AND ABOVE, IM (HomeShop18-Comirnat[employer]an) 04/11/2023 Covid-19, Mrna, Lnp-s, Pf, B ivalent, [...] encounter Miscellaneous Notes * Telephone Encounter - Carola Perdue LPN - 08/29/2023 4:06 PM EDT Amparo calling in from [facility]. Patient is interested in Diabetic Shoes. Amparo wants to know if patient has a diabetic diagnosis. Advised that her diagnosis list has her listed as prediabetic, not on any diabetic medication and last A1C 07/13/2022 5.1. No further questions or concerns at this time. * Telephone Encounter - Wen Hinojosa OSA - 08/29/2023 3:51 PM EDT Reason for patient's call: Amparo with [facility] is calling to verify diabetes diagnosis and possible records Caller was transferred to [facility] at the nurse line. documented in this encounter Plan of Treatment Upcoming Encounters Date Type Department Care Team (Late st Contact Info) Description 08/31/2023 1:00 PM EDT Nurse [facility], [facility] [address] [place] [address] Nurse Antonio Urology Sin[place] [address] [place] [address] 09/06/2023 1:00 PM EDT Nurse Only Urology, [facility] 132 [facility] [place] [address] [facility], Nurse Urology [facility] [address] [place] [address] 09/13/2023 3:00 PM EDT Office Visit Cardiology, [facility] 132 [facility] [place] [address] Damaris Ramírez CRNP 132 [facility] [place] [address] 09/18/2023 3:00 PM EDT Office Visit Psychiatry, [facility] 200 [facility] [place] [address] Paty Haynes CRNP 200 [facility] [place] [address] 2023 1:30 PM EDT Nurse Only Ancillary [facility] 200 [facility] [place] [address] Im, Nurse Annual Wellness [facility] 200 [facility] [place] [address] 10/11/2023 2:30 PM EDT Imaging Radiology [facility] 1st Floor, [place] 132 [facility] [place] [address] 10/11/2023 3:00 PM EDT Imaging Radiology [facility] 132 [facility] [place] [address] 10/19/2023 2:30 PM EDT Telemedicine Nutrition & Weight Management, [facility] 132 [facility] [place] [address] Maria E Cazares RDN 132 [facility] [place] [address] 10/27/2023 11:00 AM EDT Office Visit Sleep Disorders Ctr [facility] [place] 132 [facility] [place] [address] Charmaine Mckeon DO 132 [facility] [place] [address] 12/01/2023 10:00 AM EDT Laboratory Laboratory [facility] [place] [address] [place] [phone] [facility] 200 [facility] [place] [address] 12/08/2023 2:30 PM EDT Office Visit Hematology/Oncology [facility] [place] 200 [facility] [place] [address] Marietta Salazar CRNP [address] [place] [address] [place] [id number] 12/11/2023 10:45 AM EDT [facility] [place] 132 [facility] [place] [address] Mendel Macedo MD [address] [address] [place] [address] 12/21/2023 2:40 PM EDT Office Visit General Internal Medicine [facility] [place] 200 [facility] [place] [address] Jose M Seth MD 200 [facility] [place] [address] 01/25/2024 11:00 AM EDT Telemedicine Genetics [facility], [address] [address] Tonya [place], [place] 132 [facility] [place] [address] Health Maintenance Due Date Last Done Comments [...] and were consensually agreed upon. Care Teams Assembly Line Inspector Relationship Specialty Start Date End Date Jose M Seth MD 200 [facility] [place] [address] PCP - General Internal Medicine 11/21/11 documented as of this encounter
--- OUTSIDE RECORDS SUMMARY | 2023-12-07 12:18 | External Medical Summary | Summary of Care ---
Author Name Unknown Organization [facility] Address [address] [place] [address] Phone [phone] Care Team Providers Care Women'S Activities Adviser Name Role Phone Jose M Seth MD Primary Care Provider + Encounter Details Date Type Department Care Team (Late st Contact Info) Description 08/20/2023 Telephone Hematology/Oncology [facility] 200 [facility] [place] [address] Marietta Salazar CRNP 400 [place] [address] Allergies Active Allergy Reactions [...] as of this encounter (statuses as of 08/21/2023) Medications Medication Sig Dispensed Refills Start Date [...] 100 Tab 0 04/15/2020 Active Saline Nasal [place] 0.65 % Nasal Solution (Christian Nasal [place]) Two sprays in each nostril as needed [...] as of this encounter (statuses as of 08/21/2023) Active Problems Problem Noted Date Diagnosed Date [...] as of this encounter (statuses as of 08/21/2023) Resolved Problems Problem Noted Date Diagnosed Date [...] Jose M Seth MD Pharmacy: Maricruz Foster [facility] 08/09/2013 12/16/2015 Dementia 07/19/2013 2017 Encounter [...] as of this encounter (statuses as of 08/21/2023) Immunizations Name Administration Dates Next Due COVID-19 mRNA, LNP-s, No Pre serve, 2-Dose Series (Blaze DFM) 02/18/2021,08/10/2020,07/06/2020 COVID-19, MRNA-LNP, 23-24, P F, 30 MCG/0.3 mL, 12 YRS AND ABOVE, IM ([facility]) 04/11/2023 Covid-19, Mrna, Lnp-s, Pf, B ivalent, 30 Mcg, IM, 12 yrs and above (Blaze DFM) 03/22/2022 Pneumococcal Conjugate Vacc, 13 Valent (Prevnar) [...] encounter Miscellaneous Notes * Telephone Encounter - Carrie Engel MED [...] 08/23/2023 1:00 PM EDT Nurse Only Urology, [facility] 132 [facility] [place] [address] Antonio Nurse Urology [place] [address] [place] [address] 08/31/2023 1:00 PM EDT Nurse Only Urology, [facility] [address] [place] [address] Antonio Nurse Urology [place] [address] [place] [address] 09/06/2023 1:00 PM EDT Nurse Only Urology, [facility] [address] [place] [address] Antonio Nurse Urology [place] [address] [place] [address] 09/13/2023 3:00 PM EDT Office Visit Cardiology, [facility] [address] [place], [place] [address] Damaris Ramírez CRNP [address] [place] [address] 09/18/2023 3:00 PM EDT Office Visit Psychiatry, [facility] [address] [place] [address] Paty Haynes CRNP [address] [place] [address] 2023 1:30 PM EDT Nurse Only Ancillary [facility] [address] [place] [address] Im, Nurse Annual Wellness [facility] [address] [place] [address] 10/11/2023 2:30 PM EDT Imaging Radiology [facility]st [facility] [address] [place] [address] 10/11/2023 3:00 PM EDT Imaging Radiology [facility] 132 [facility] [place] [address] 10/19/2023 2:30 PM EDT Telemedicine Nutrition & Weight Management, [facility] 132 [facility] [place] [address] Maria E Cazares, PAN 132 [facility] [place] [address] 10/27/2023 11:00 AM EDT Office Visit Sleep Disorders Ctr [facility] 132 [facility] [place] [phone] Charmaine Mckeon DO 132 [facility] [place] [address] 12/01/2023 10:00 AM EDT Laboratory Laboratory [facility] [address] [place] [phone] [place], Lab [facility] 200 [facility] [place] [address] 12/08/2023 2:30 PM EDT Office Visit Hematology/Oncology [facility] [address] [place] [phone] Marietta Salazar CRNP [address] [place] [address] [place] [address] 12/11/2023 10:45 AM EDT Office Visit Urology, [facility] 132 [facility] [place] [address] Mendel Macedo MD [address] [place] [address] [place] [address] 12/21/2023 2:40 PM EDT Office Visit General Internal Medicine [facility] [address] [place] [address] Jose M Seth MD 200 [facility] [place] [address] 01/25/2024 11:00 AM EDT Telemedicine Genetics HemOnc, [facility] [address] [place] [address] Tonya [place]vel, [place] [address] [facility] [place] [address] Health Maintenance Due Date Last Done Comments [...] and were consensually agreed upon. Care Teams Women'S Activities Adviser Relationship Specialty Start Date End Date Jose M Seth MD 200 [place] [address] PCP - General Internal Medicine 11/21/11 documented as of this encounter
--- OUTSIDE RECORDS SUMMARY | 2023-12-07 12:18 | External Medical Summary ---
Author Name Unknown Address Unknown Organization [facility] [id number] - [address] [place] [address] Laboratory Report Ordering Provider Test Date Status PIERRE IRBY 08/15/2023 11:31:20 Final Observation Date Value Abnormality Reference (Units ) Status Color of Urine by Auto 08/15/2023 11:31:20 Yellow Light Yellow, Yellow, Dark Yellow Final Clarity, Urine 08/15/2023 11:31:20 Slightly Cloudy Abnormal Clear Final Glucose [Mass/volume] in Urine by Automated test strip 08/15/2023 11:31:20 Negative Negative (mg/dL) Final Bilirubin.total [Presence] in Urine by Automated test strip 08/15/2023 11:31:20 Small Abnormal Negative Final Ketones [Mass/volume] in Urine by Automated test strip 08/15/2023 11:31:20 Trace Abnormal Negative (mg/dL) Final Specific gravity, Urine 08/15/2023 11:31:20 1.025 1.003-1.030 Final Hemoglobin [Presence] in Urine by Automated test strip 08/15/2023 11:31:20 Small Abnormal Negative Final pH, Urine 08/15/2023 11:31:20 6.0 5.0-7.5 (Units) Final Protein [Mass/volume] in Urine by Automated test strip 08/15/2023 11:31:20 100 Abnormal Negative (mg/dL) Final Urobilinogen [Mass/volume] in Urine by Automated test strip 08/15/2023 11:31:20 1.0 0.2, 1.0 (mg/dL) Final Nitrite [Presence] in Urine by Automated test strip 08/15/2023 11:31:20 Negative Negative Final Leukocyte esterase [Presence] in Urine by Automated test strip 08/15/2023 11:31:20 Trace Abnormal Negative Final RBC, Urine 08/15/2023 11:31:20 3-5 Abnormal 0-2 (/HPF) Final WBC, Urine 08/15/2023 11:31:20 3-5 Abnormal 0-2 (/HPF) Final Bacteria [#/area] in Urine sediment by Microscopy high power field 08/15/2023 11:31:20 26-50 Abnormal 0-25 (/HPF) Final Epithelial cells.squamous [#/area] in Urine sediment by Microscopy high power field 08/15/2023 11:31:20 Many Abnormal None (/HPF) Final Performing Location [facility] [id number] [place] [address]
--- OUTSIDE RECORDS SUMMARY | 2023-12-07 12:18 | External Medical Summary | Summary of Care ---
Author Name Unknown Organization [facility] Address [address] [place] [address] Phone [phone] Care Team Providers Care Bed Setter Name Role Phone Jose M Seth MD Primary Care Provider + Reason for Visit * Reason Comments Outpatient Testing Encounter Details Date Type Department Care Team (Late st Contact Info) Description 08/15/2023 11:30 AM EDT Laboratory Laboratory [facility] [place] [address] [place] [address] [facility] Lab [facility] [address] [place] [address] History of breast cancer; Anemia, unspecified type; MGUS (monoclonal gammopathy of unknown significance); Chemotherapy-induced neuropathy (HCC) Allergies Active Allergy Reactions Criticality Noted [...] as of this encounter (statuses as of 08/15/2023) Medications Medication Sig Dispensed Refills Start Date [...] 100 Tab 0 04/15/2020 Active Saline Nasal [place] 0.65 % Nasal Solution ([place] Nasal [place]) Two sprays in each nostril as needed [...] as of this encounter (statuses as of 08/15/2023) Active Problems Problem Noted Date Diagnosed Date [...] PSG -- AHI 10.7, <89% 128 mins [facility] Returned machine Jun 2013 Nocturnal hypoxemia 06/18/2012 Overview: 2 LPM [facility] 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 documented as of this encounter (statuses as of 08/15/2023) Resolved Problems Problem Noted Date Diagnosed Date [...] Jose M Seth MD Pharmacy: Maricruz Foster [facility] 08/09/2013 12/16/2015 Dementia 07/19/2013 2017 [...] as of this encounter (statuses as of 08/15/2023) Immunizations Name Administration Dates Next Due COVID-19 mRNA, LNP-s, No Pre serve, 2-Dose Series (eduClipper) 02/18/2021,08/10/2020,07/06/2020 COVID-19, MRNA-LNP, 23-24, P F, 30 [...] Care Team (Late st Contact Info) Description 08/15/2023 4:00 PM EDT Telemedicine Hematology/Oncology [facility] 200 [facility] [address] Marietta Salazar CRNP [address] [place] [address] 08/17/2023 1:00 PM EDT [facility] 132 [facility] [address] Nurse Erika Alvarezy Sinan 132 [facility] [address] 08/23/2023 1:00 PM EDT [facility] 132 [facility] [place] [address] Nurse Yong Alvarez 132 [facility] [place]wari [address] 08/31/2023 1:00 PM EDT [facility] 132 [place] [address] Antonio Nurse Urology Sinan [address] [place], [place] [address] 09/06/2023 1:00 PM EDT Nurse Only Urology, [facility] 132 [facility] [place] [address] Antonio, Nurse Urology Sinan [address] [place], [place] [address] 09/13/2023 3:00 PM EDT Office Visit Cardiology, [facility] 132 [facility] [place] [address] Damaris Ramírez CRNP 132 [facility] [place] [address] 09/18/2023 3:00 PM EDT Office Visit Psychiatry, [facility] [address] [place], [place] [address] Paty Haynes CRNP [address] [place] [address] 2023 1:30 PM EDT Nurse Only Ancillary [facility] [place] [address] [place], [place] [address] Im, Nurse Annual Wellness [facility] [address] [place] [address] 10/11/2023 2:30 PM EDT Imaging [facility] 132 [facility] [place] [address] 10/11/2023 3:00 PM EDT Imaging Radiology [facility] 132 [facility] [place] [address] 10/19/2023 2:30 PM EDT Telemedicine Nutrition & Weight Management, [facility] [address] [place] [address] Maria E Cazares RDN 132 [facility] [place] [address] 10/27/2023 11:00 AM EDT Office Visit Sleep Disorders Ctr [facility] 132 [facility] [place] [phone] Charmaine Mckeon DO 132 [facility] [place] [address] 12/11/2023 10:45 AM EDT Office Visit Urology, [facility] 132 [facility] [place] [address] Mendel Macedo MD [address] [facility] [address] [place] [address] 12/21/2023 2:40 PM EDT Office Visit General Internal Medicine [facility] 200 [facility] [place] [address] Jose M Seth MD 200 [facility] [place] [address] 01/25/2024 11:00 AM EDT Telemedicine Genetics [facility], [place] [address] Tonya Jovel, [place] 132 [facility] [place] [address] Pending Results Name Type Priority Associated Diagnoses Date /Time COMPREHENSIVE METABOLIC PANEL Lab STAT History of breast cancer Anemia, unspecified type MGUS (monoclonal gammopathy of unknown significance) Chemotherapy-induced neuropathy (HCC) 08/15/2023 11:15 AM EDT IRON SCREEN, INCLUDING TIBC Lab STAT History of breast cancer Anemia, unspecified type MGUS (monoclonal gammopathy of unknown significance) Chemotherapy-induced neuropathy (HCC) 08/15/2023 11:15 AM EDT FERRITIN Lab STAT History of breast cancer Anemia, unspecified type MGUS (monoclonal gammopathy of unknown significance) Chemotherapy-induced neuropathy (HCC) 08/15/2023 11:15 AM EDT Health Maintenance Due Date Last [...] Date/Time Associated Diagnosis Comments DIFFERENTIAL, AUTOMATED STAT 08/15/2023 11:15 AM EDT History of breast cancer Anemia, unspecified type MGUS (monoclonal gammopathy of unknown significance) Chemotherapy-induced neuropathy (HCC) CBC STAT 08/15/2023 11:15 AM EDT History of breast cancer Anemia, unspecified type MGUS (monoclonal gammopathy of unknown significance) Chemotherapy-induced neuropathy (HCC) CBC STAT 08/15/2023 11:15 AM EDT History of breast cancer Anemia, unspecified type MGUS (monoclonal gammopathy of unknown significance) Chemotherapy-induced neuropathy (HCC) documented in this encounter Results * (ABNORMAL) DIFFERENTIAL, AUTOMATED (08/15/2023 11:15 AM EDT) WBC 3.29(L) 4.00 - 10.80 K/uL 08/15/2023 11:19 AM EDT [facility]-02 Neutrophils % 49.3 40.0 - 75.0 % 08/15/2023 11:19 AM EDT [facility]-02 Lymphocytes % 31.9 18.0 - 42.0 % 08/15/2023 11:19 AM EDT [facility] 56-02 Monocytes % 14.9(H) 1.0 - 11.0 % 08/15/2023 11:19 AM EDT [facility] 56-02 Eosinophils % 3.6 0.0 - 6.0 % 08/15/2023 11:19 AM EDT [facility] 56-02 Basophils % 0.3 0.0 - 2.0 % 08/15/2023 11:19 AM EDT [facility] 56-02 Absolute Neutrophils 1.62(L) 1.80 - 7.70 K/uL 08/15/2023 11:19 AM EDT [facility] 56-02 Absolute Lymphocytes 1.05 1.00 - 4.80 K/ul 08/15/2023 11:19 AM EDT [facility] 56-02 Absolute Monocytes 0.49 0.00 - 1.10 K/uL 08/15/2023 11:19 AM EDT [facility] 56-02 Absolute Eosinophils 0.12 0.00 - 0.70 K/uL 08/15/2023 11:19 AM EDT [facility] 56-02 Absolute Basophils 0.01 0.00 - 0.20 K/uL 08/15/2023 11:19 AM EDT [facility] 56-02 Blood Venous blood specimen / Unknown Venipuncture / Unknown 08/15/2023 11:15 AM EDT 08/15/2023 11:15 AM EDT Marietta PERES LAB BLOOD ORDER SUNDEEP [facility] 56- [address] [place], [place] [id number] * (ABNORMAL) CBC (08/15/2023 11:15 AM EDT) WBC 3.29(L) 4.00 - 10.80 K/uL 08/15/2023 11:19 AM EDT [address] RBC 3.48 3.85 - 5.15 M/uL 08/15/2023 11:19 AM EDT [address] HGB 10.6(L) 12.0 - 15.3 g/dL 08/15/2023 11:19 AM EDT [address] HCT 32.2(L) 36.0 - 45.2 % 08/15/2023 11:19 AM EDT [facility] 56 MCV 92.5 81.5 - 97.5 fL 08/15/2023 11:19 AM EDT [facility] 56 MCH 30.5 27.0 - 34.0 pg 08/15/2023 11:19 AM EDT [facility] 56 MCHC 32.9 32.0 - 36.0 g/dL 08/15/2023 11:19 AM EDT [facility] 56 RDW 14.4 11.5 - 15.5 % 08/15/2023 11:19 AM EDT [facility] 56 PLT 238 140 - 400 K/uL 08/15/2023 11:19 AM EDT [facility] 56 MPV 10.1 6.6 - 11.1 fL 08/15/2023 11:19 AM EDT [facility] 56 Blood Venous blood specimen / Unknown Venipuncture / Unknown 08/15/2023 11:15 AM EDT 08/15/2023 11:15 AM EDT Marietta PERES LAB BLOOD ORDER SUNDEEP [facility] 56-02 200 [place] [address] documented in this encounter Visit Diagnoses Diagnosis [...] and were consensually agreed upon. Care Teams Bed Setter Relationship Specialty Start Date End Date Jose M Seth MD 200 [facility] [address] PCP - General Internal Medicine 11/21/11 documented as of this encounter
--- OUTSIDE RECORDS SUMMARY | 2023-12-07 12:18 | External Medical Summary | Summary of Care ---
Author Name Unknown Organization [facility] Address [address] [place] [address] Phone [phone] Care Team Providers Care Tractor Mechanic Helper Name Role Phone Jose M Seth MD Primary Care Provider + Reason for Visit * Reason Comments Outpatient Testing Encounter Details Date Type Department Care Team (Late st Contact Info) Description 08/15/2023 11:30 AM EDT Laboratory Laboratory [facility] [place] [address] [place] [address] [facility] Lab [facility] [address] [place] [address] History of breast cancer; Anemia, unspecified type; [...] 100 Tab 0 04/15/2020 Active Saline Nasal [place] 0.65 % Nasal Solution ([place] Nasal [place]) Two sprays in each nostril as needed [...] Jose M Seth MD Pharmacy: Maricruz Foster [facility] 08/09/2013 12/16/2015 Dementia 07/19/2013 2017 Encounter for [...] mRNA, LNP-s, No Pre serve, 2-Dose Series (Lab[facility]) 02/18/2021,08/10/2020,07/06/2020 COVID-19, MRNA-LNP, 23-24, P F, 30 [...] Description 08/15/2023 4:00 PM EDT Telemedicine Hematology/Oncology [facility] 200 [facility] [address] Marietta Salazar CRNP [address] [place] [address] 08/17/2023 1:00 PM EDT [facility] 132 [facility] [address] Nurse Erika Alvarezy Sinan 132 [facility] [address] 08/23/2023 1:00 PM EDT [facility] 132 [facility] [place] [address] Nurse Yong Alvarez 132 [facility] [place]wari [address] 08/31/2023 1:00 PM EDT [facility] 132 [place] [address] Antonio Nurse Urology Sinan [address] [place], [place] [address] 09/06/2023 1:00 PM EDT Nurse Only Urology, [facility] 132 [facility] [place] [address] Antonio, Nurse Urology Sinan [address] [place], [place] [address] 09/13/2023 3:00 PM EDT Office Visit Cardiology, [facility] 132 [facility] [place] [address] Damaris Ramírez CRNP 132 [facility] [place] [address] 09/18/2023 3:00 PM EDT Office Visit Psychiatry, [facility] [address] [place], [place] [address] Paty Haynes CRNP [address] [place] [address] 2023 1:30 PM EDT Nurse Only Ancillary [facility] [place] [address] [place], [place] [address] Im, Nurse Annual Wellness [facility] [address] [place] [address] 10/11/2023 2:30 PM EDT Imaging Radiology [facility] 132 [facility] [place] [address] 10/11/2023 3:00 PM EDT Imaging Radiology [facility] 132 [facility] [place] [address] 10/19/2023 2:30 PM EDT Telemedicine Nutrition & Weight Management, [facility] [address] [place] [address] Maria E Cazares RDN 132 [facility] [place] [address] 10/27/2023 11:00 AM EDT Office Visit Sleep Disorders Ctr [facility] 132 [facility] [place] [phone] Charmaine Mckeon DO 132 [facility] [place] [address] 12/11/2023 10:45 AM EDT Office Visit Urology, [facility] 132 [facility] [place] [address] Mendel Macedo MD [address] [facility] [address] [place] [address] 12/21/2023 2:40 PM EDT Office Visit General Internal Medicine [facility] 200 [facility] [place] [address] Jose M Seth MD 200 [place] [address] 01/25/2024 11:00 AM EDT Telemedicine Genetics [facility], [place] [address] Tonya Jovel, [place] 132 [facility] [place] [address] Pending Results Name Type Priority Associated Diagnoses [...] EDT Marietta PERES LAB BLOOD ORDER [facility] 56- [address] [place], [place] [phone] * (ABNORMAL) CBC (08/15/2023 11:15 AM EDT) WBC 3.29(L) 4.00 - 10.80 K/uL 08/15/2023 11:19 AM EDT [address] RBC 3.48 3.85 - 5.15 M/uL 08/15/2023 11:19 AM EDT [address] HGB 10.6(L) 12.0 - 15.3 g/dL 08/15/2023 11:19 AM EDT [address] HCT 32.2(L) 36.0 - 45.2 % 08/15/2023 11:19 AM EDT [facility] 56 MCV 92.5 81.5 - 97.5 fL 08/15/2023 11:19 AM EDT [facility] 56 MCH 30.5 27.0 - 34.0 pg 08/15/2023 11:19 AM EDT [facility] 56 MCHC 32.9 32.0 - 36.0 g/dL 08/15/2023 11:19 AM EDT [facility] 56 RDW 14.4 11.5 - 15.5 % 08/15/2023 11:19 AM EDT [facility] 56 PLT 238 140 - 400 K/uL 08/15/2023 11:19 AM EDT [facility] 56 MPV 10.1 6.6 - 11.1 fL 08/15/2023 11:19 AM EDT [facility] 56 Blood Venous blood specimen / Unknown Venipuncture / Unknown 08/15/2023 11:15 AM EDT 08/15/2023 11:15 AM EDT Marietta PERES LAB BLOOD ORDER SUNDEEP [facility] 56-02 200 [place] [address] documented in this encounter Visit Diagnoses Diagnosis [...] and were consensually agreed upon. Care Teams Tractor Mechanic Helper Relationship Specialty Start Date End Date Jose M Seth MD 200 [facility] [address] PCP - General Internal Medicine 11/21/11 documented as of this encounter
--- OUTSIDE RECORDS SUMMARY | 2023-12-07 12:18 | External Medical Summary | Summary of Care ---
Author Name Unknown Organization [facility] Address [address] [facility] [place] [address] Phone [phone] Care Team Providers Care Contact Center Consultant Name Role Phone Jose M Seth MD Primary Care Provider + Reason for Visit * Reason Comments Outpatient Testing Encounter Details Date Type Department Care Team (Late st Contact Info) Description 08/15/2023 11:30 AM EDT Laboratory Laboratory [facility] [place] [address] [place] [address] [facility] Lab [facility] 200 [facility] [place] [address] History of breast cancer; Anemia, unspecified type; MGUS (monoclonal gammopathy of unknown significance); Chemotherapy-induced neuropathy (HCC); H/O hematuria Allergies Active Allergy Reactions Criticality Noted [...] 100 Tab 0 04/15/2020 Active Saline Nasal [place] 0.65 % Nasal Solution ([place] Nasal [place]) Two sprays in each nostril as needed [...] PSG -- AHI 10.7, <89% 128 mins [facility] Returned machine Jun 2013 Nocturnal hypoxemia 06/18/2012 Overview: 2 LPM [facility] Chronic knee pain History of wound [...] Jose M Seth MD Pharmacy: Maricruz Foster [facility] 08/09/2013 12/16/2015 Dementia 07/19/2013 2017 [...] mRNA, LNP-s, No Pre serve, 2-Dose Series (T[employer]ile) 02/18/2021,08/10/2020,07/06/2020 COVID-19, MRNA-LNP, 23-24, P F, 30 MCG/0.3 mL, 12 YRS AND ABOVE, IM ([facility]) 04/11/2023 Covid-19, Mrna, Lnp-s, Pf, B ivalent, [...] Description 08/15/2023 4:00 PM EDT Telemedicine Hematology/Oncology [facility] 200 [facility] [address] Marietta Salazar CRNP 400 [facility] [place] [address] 08/17/2023 1:00 PM EDT [facility] 132 [facility] [address] Nurse Antonio Urology Sinan 132 [facility] [address] 08/23/2023 1:00 PM EDT Nurse Only [facility] 132 [facility] [place] [address] Nurse Yong Alvarez 132 [facility] [address] 08/31/2023 1:00 PM EDT Nurse Only Urology, [facility] 132 [facility] [place], [place] [address] Alvarez, Nurse Urology Sinan [address] [place], [place] [address] 09/06/2023 1:00 PM EDT Nurse Only Urology, [facility] 132 [facility] [place] [address] Alvarez, Nurse Urology Sinan [address] [place] [address] 09/13/2023 3:00 PM EDT Office Visit Cardiology, [facility] 132 [facility] [place], [place] [address] Damaris Ramírez CRNP 132 [facility] [place] [address] 09/18/2023 3:00 PM EDT Office Visit Psychiatry, [facility] 200 [facility] [place] [address] Paty Haynes CRNP 200 [facility] [place] [address] 2023 1:30 PM EDT Nurse Only Ancillary [facility] [place] 200 [facility] [place] [address] Im, Nurse Annual Wellness [facility] 200 [facility] [place] [address] 10/11/2023 2:30 PM EDT Imaging Rad[facility] 132 [facility] [place] [address] 10/11/2023 3:00 PM EDT Imaging Radiology [facility] 132 [facility] [place] [address] 10/19/2023 2:30 PM EDT Telemedicine Nutrition & Weight Management, [facility] 132 [place] [address] Maria E Cazares RDN 132 [facility] [place] [address] 10/27/2023 11:00 AM EDT Office Visit [facility] Disorders Ctr [facility] 132 [place] [phone] Charmaine Mckeon, 132 [facility] [place] [address] 12/11/2023 10:45 AM EDT [facility], [facility] 132 [place] [address] Mendel Macedo MD [address] [address] 12/21/2023 2:40 PM EDT Office Visit General Internal Medicine [facility] 200 [place] [address] Jos eM Seth MD 200 [place] [address] 01/25/2024 11:00 AM EDT Telemedicine Genetics [facility], [address] [address] Tonya Jovel, MS 132 [facility] [place] [address] Pending Results Name Type Priority Associated Diagnoses [...] Chemotherapy-induced neuropathy (HCC) 08/15/2023 11:15 AM EDT URINALYSIS WITH MICROSCOPIC EXAM Lab Routine H/O hematuria 08/15/2023 11:31 AM EDT Health Maintenance Due Date Last [...] (ABNORMAL) DIFFERENTIAL, AUTOMATED (08/15/2023 11:15 AM EDT) Pathologist [facility] WBC 3.29(L) 4.00 - 10.80 K/uL 08/15/2023 [...] AM EDT 08/15/2023 11:15 AM EDT Marietta Salazar JA LAB BLOOD ORDER SUNDEEP [address] [place], [place] [phone] * (ABNORMAL) CBC (08/15/2023 11:15 AM EDT) WBC 3.29(L) 4.00 - 10.80 K/uL 08/15/2023 11:19 AM EDT [address] RBC 3.48 3.85 - 5.15 M/uL 08/15/2023 11:19 AM EDT [place] [address] HGB 10.6(L) 12.0 - 15.3 g/dL 08/15/2023 11:19 AM EDT [address] HCT 32.2(L) 36.0 - 45.2 % 08/15/2023 11:19 AM EDT [address] MCV 92.5 81.5 - 97.5 fL 08/15/2023 11:19 AM EDT [address] MCH 30.5 27.0 - 34.0 pg 08/15/2023 11:19 AM EDT [address] MCHC 32.9 32.0 - 36.0 g/dL 08/15/2023 11:19 AM EDT [address] RDW 14.4 11.5 - 15.5 % 08/15/2023 11:19 AM EDT [facility] 56 PLT 238 140 - 400 K/uL 08/15/2023 11:19 AM EDT [facility] 56 MPV 10.1 6.6 - 11.1 fL 08/15/2023 11:19 AM EDT [facility] 56 Blood Venous blood specimen / Unknown Venipuncture / Unknown 08/15/2023 11:15 AM EDT 08/15/2023 11:15 AM EDT Marietta Sanderson Martin PERES LAB BLOOD ORDER [facility] 56-02 200 [place] [address] documented in this encounter Visit Diagnoses Diagnosis History of breast cancer Personal history of malignant neoplasm of breast Anemia, unspecified type MGUS (monoclonal gammopathy of unknown significance) 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 Care Teams Contact Center Consultant Relationship Specialty Start Date End Date Jose M Seht MD 200 [place] [address] PCP - General Internal Medicine 11/21/11 documented as of this encounter
--- OUTSIDE RECORDS SUMMARY | 2023-12-07 12:18 | External Medical Summary | Summary of Care ---
Author Name Unknown Organization [facility] Address [address] [place] [address] Phone [phone] Care Team Providers Care V Belt Mold Assembler And Curer Name Role Phone Jose M Seth MD Primary Care Provider + Reason for Visit * Reason Comments Follow Up Encounter Details Date Type Department Care Team (Late st Contact Info) Description 08/15/2023 4:00 PM EDT Telemedicine Hematology/Oncology [facility] [address] [place] [address] Marietta Salazar CRNP [address] [place] [address] Encounter for follow-up examination after completed treatment for malignant neoplasm*; History of breast cancer; Anemia, unspecified type; [...] as of this encounter (statuses as of 08/20/2023) Medications Medication Sig Dispensed Refills Start Date [...] 100 Tab 0 04/15/2020 Active Saline Nasal [place] 0.65 % Nasal Solution ([place] Nasal [place]) Two sprays in each nostril as needed [...] as of this encounter (statuses as of 08/20/2023) Active Problems Problem Noted Date Diagnosed Date [...] as of this encounter (statuses as of 08/20/2023) Resolved Problems Problem Noted Date Diagnosed Date [...] Jose M Seth MD Pharmacy: [facility] 08/09/2013 12/16/2015 Dementia 07/19/2013 2017 Encounter [...] as of this encounter (statuses as of 08/20/2023) Immunizations Name Administration Dates Next Due COVID-19 mRNA, LNP-s, No Pre serve, 2-Dose Series ([employer]) 02/18/2021,08/10/2020,07/06/2020 COVID-19, MRNA-LNP, 23-24, P F, 30 MCG/0.3 mL, 12 YRS AND ABOVE, IM ([facility]) 04/11/2023 Covid-19, Mrna, Lnp-s, Pf, B ivalent, 30 Mcg, IM, 12 yrs and above ([employer]) 03/22/2022 Pneumococcal Conjugate Vacc, 13 Valent [...] as of this encounter Progress Notes * Marietta Salazar CRNP - 08/15/2023 4:00 PM EDT Hematology/Oncology In-Home Telemedicine Note [facility] Name: Kathy Mccoy Date: 08/15/2023 CHIEF COMPLAINT: Kathy Mccoy is a 77 year old female patient of Dr. Quiroga completing an in- home telemedicine visit in lieu of scheduled follow-up visit due to Covid-19 pandemic. Oncology history from patient chart, confirmed with patient. 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 Last chemotherapy was given on 04/01/2013 Cancer Staging TNM Descriptors: (posttreatment) Primary Tumor(pT): pT2: Tumor >20 mm but <=50 mm in greatest dimension Regional Lymph Nodes (pN): pN1mi: Micrometastases (approximately 200 cells, larger than 0.2 mm, butnone larger than 2.0 mm). DATE OF DIAGNOSIS: 02/26/20 TREATMENT HISTORY: - She completed neoadjuvant chemotherapy including AC followed by weekly Taxol. She received total of 11 doses of Taxol and the last was given on 10/28/2020. The last dose of Taxol was omitted because of the side effect toxicity. - Status post partial mastectomy and sentinel lymph node biopsy. - Status post radiation therapy - received total of 7 cycles of capecitabine adjuvant chemotherapy for the residual disease. - discontinued 11/10/21 CURRENT TREATMENT: Observation ONCOLOGY HISTORY: [facility] She was followedfor elevated paraproteins in the blood. She is complaining back and hip pain since the surgery which was done on 09/12 for the left hip replacement. After the surgery she had completed course with the MRSA infection. She also underwent to dialysis during the surgery with subsequent had ecovery of the kidney function. Her recent diagnosis of breast cancer was initially found on the screening mammogram. She had a core biopsy done and pathology was consistent with high- grade invasive medullary carcinoma. ER/TN and HER2/arleth all negative. Tumor measures 17 mm on the imaging. She also had MRI of the breast done which shows Abnormal enhancement in a linear distribution in the retroareolar region of the left breast, measuring 7.7 (AP) x 1.6 (CC) x 1.7 (trans) cm. There was no MRI evidence of malignancy in the right breast and bilateral axilla was unremarkable. Last echo was done on 01/23/2020 and her ejection fraction was 55% A. Left breast, mass at 7:00 oclock areolar edge, ultrasound-guided core biopsy: Invasive carcinoma with medullary features, grade 3. B. Left axillary lymph node, ultrasound-guided core biopsy: One lymph node, negative for metastatic carcinoma (0/1). Estrogen Receptor (ER) protein expression is NEGATIVE Progesterone Receptor (TN) protein expression is NEGATIVE HER2 oncoprotein expression is NEGATIVE History is also significant for uterine carcinoma stage IB underwent hysterectomy followed by 6 cycles of Taxol and carboplatin combination chemotherapy. Last chemotherapy was given on 03/2013. Subsequently she also received radiation therapy. She had serum protein electrophoresis which shows M spike of 0.87 and paraprotein present. Immunofixation was consistent with monoclonal IgG kappa gammopathy. Quantitative immunoglobulin levels showsnormal level of IgG, IgA and IgM. Urine also shows monoclonal intact immunoglobulin. No monoclonal free light chain detected. Patient has history of back pain. She had a LS spine x-ray done on 03/11/2019 and shows multilevel spine degenerative disease with no acute osseous abnormality. CMP was normal for creatinine and renal function and LFT were also normal. Last CBC was done on 09/05/2018 and shows WBC count 6.5 hemoglobin 12 and platelet count 235 with normal differential. Patient is complaining of generalized weakness and back pain which is chronic since the hip surgerywhich was done on 08/2016. She is also complaining of joint pain. She denies any headache, dizziness, blurred vision, chest pain, shortness breath, palpitation, abdominal pain or distention, bleeding, bruising, weight loss, fever, night sweats. Patient denies smoking or drinking. Family history significant for the mother was diagnosed of cancer of cervix and was treated with radiation therapy. Father was also diagnosed of the lung cancer. There uncle and aunt on her father's side who had a some kind of cancer, she does not know the detail or the type of the cancer. Patient underwent partial mastectomy and sentinel lymph node biopsy in she was found to have a 1 positive lymph node with microscopic focus of 0.8 mm invasive carcinoma and there was residual diseaseof 24 mm. A. Left axilla sentinel lymph node: One out of three lymph nodes is positive (1/3), 0.8mm in greatest dimension, associated extensive lymphovascular invasion (clip is identified in the positive node). B. Left partial mastectomy, 7:00: Invasive ductal carcinoma, histologic grade 3, s/p neoadjuvant chemotherapy. Tumor measures 24 mm in greatest dimension. Invasive carcinoma is 0.25 mm from the anterior margin. Evidence of previous biopsy site. C. New inferior margin, left breast: Benign breast tissue with fibrocystic changes. D. New lateral margin, left breast: Benign breast tissue with no pathologic diagnosis. E. New medial margin, left breast: Ductal carcinoma in situ, nuclear grade 2 focally 3, covering a span of 6mm, associated severe cauterized artifact, 0.2mm from new medial margin/orange ink, with less than 1mm span near margin. F. New superior margin, left breast: Benign breast tissue with no pathologic diagnosis. G. New posterior margin, left breast: Benign breast tissue with no pathologic diagnosis TNM Descriptors: y (posttreatment) Primary Tumor(pT): pT2: Tumor >20 mm but <=50 mm in greatest dimension Regional Lymph Nodes (pN): pN1mi: Micrometastases (approximately 200 cells, larger than 0.2 mm, butnone larger than 2.0 mm). She completed radiation therapy on 04/13/2021 and capecitabine for residual disease. IMPRESSION/PLAN: History of Triple Negative Left Breast Cancer Anemia Observation since 10/2021 Lab results reviewed: -stable mild anemia -no iron deficiency present -will assess vitamin b12 and folic acid with next set of lab work Mammogram due September 2023 - order placed Continue lymphedema therapy Continue self breast exams Follow up with general surgery and rad/onc as recommended - overdue for both. Patient agrees to call and schedule. Patient requesting referral for genetic testing with history of triple negative breast cancer. Scheduled for December. Will plan mediport removal after next mammogram. MGUS IgG kappa Continue lab monitoring every six months Peripheral neuropathy Treated with voltaren gel and Gabapentin Continue to follow with PCP. RTC in three months with provider with cbc/diff, cmp, vitamin b12, folic acid, spep, serum flc and immunoglobulin quant Patient location: HOME. I was in a hospital or clinic location. After connecting through televideo,patient was verified with two unique identifiers. Patient (or authorized legal underwriting service representative) was then informed that this was a Telemedicine visit and being conducted confidentially over secure lines. Methods to assure confidentiality were taken. Patient acknowledged consent and understanding of pr ivacy and security of the Telemedicine visit. The patient agreed to participate. The total time spent [id number] via in-home televideo with the patient/family was 30 minutes; 25 minutes were spent counseling regarding the plan of care, treatment and other issues; representing > 50% of the encounter. INTERVAL HISTORY: Kathy Mccoy is a 77 year old female with a history as outlined above. Being contacted for an in-home telemedicine follow-up visit today. Patient doing well today. Would like to consider having mediport removed. Is having shock treatment for her bladder to improve incontinence. Feels she has some thickness under her left breast. Denies lymphedema in her left arm. Is trying to lose weight. Utilizing Voltaren gel to her feet to help with neuropathy pain. Has not yet increased her dose of gabapentin. Wants to take two at night as this is when the pain is the worst. Not taking any oral iron. Review of patient's allergies indicates: Allergen Reactions [...] 1 Tablet by mouth every other day. (Patient nottaking: Reported on 03/24/2023) Incontinence Supply Disposable (BAN [employer]IN-[employer]ING WASH[employer]OTHS) MISC [...] hours as needed. 100 Tab0 Saline Nasal [place] 0.65 % Nasal Solution ([place] Nasal [place]) Two sprays in each nostril as needed for nasal dryness or congestion 50 mL 2 Hydrocortisone (Perianal) 2.5 % External Cream Administer into the rectum 2 times a day. For up to 1 week 30 g 0 Probiotic Acidophilus BioBeads Oral Capsule Take 1 Capsule by mouth in the morning and 1 Capsule atnoon and 1 Capsule in the evening. Take with meals. (Patient not taking: Reported on 10/06/2022) Diclofenac Sodium 1 % External Gel (Voltaren) [...] COVID-19 mRNA Vaccine 12 years and above [employer] 30 MCG/0.3 ML IM SUSP Inject into a large muscle. 0.3 mL 0 Ondansetron HCl 4 MG Oral Tablet (Zofran) Take 1 Tablet by mouth every 12 hours as needed for Nausea. 30 Tablet 0 Premarin 0.625 MG/GM Vaginal Cream (Estrogens Conjugated) Apply topically to affected area daily. As directed. (Patient not taking: Reported on 06/14/2023) 30 g 4 Atorvastatin Calcium 20 MG [...] Pulmonary arterial hypertension (HCC) Sleep apnea, obstructive REVIEW OF SYSTEMS: See interval history, otherwise WNL OBJECTIVE: Vital signs not available for review at time of call Wt Readings from Last 5 Encounters: 06/21/23 87.9 kg (193 lb 11.2 oz) 05/11/23 85.7 kg (188 lb 14.4 oz) 05/02/23 88.5 kg (195 lb 1.6 oz) 03/24/23 90.1 kg (198 lb 11.2 oz) 03/17/23 88.9 kg (196 lb) PHYSICAL EXAM: N/A, in-home telemedicine visit LABS: Results for orders placed or performed in visit on 08/15/23 COMPREHENSIVE METABOLIC PANEL Result Value Ref Range BUN 17 6 [...] ALT <5 (L) 10 - 35 U/L CBC Result Value Ref Range WBC 3.29 (L) [...] 10.1 6.6 - 11.1 fL DIFFERENTIAL, AUTOMATED Result Value Ref Range WBC 3.29 (L) [...] - 0.20 K/uL URINALYSIS WITH MICROSCOPIC EXAM Result Value Ref Range Color, Urine Yellow Light Yellow, Yellow, Dark Yellow Clarity, Urine Slightly Cloudy (A) Clear Glucose, Urine Negative Negative mg/dL Bilirubin, Urine Small (A) Negative Ketone, Urine Trace (A) Negative mg/dL Specific [place], Urine 1.025 1.003 - 1.030 Blood, Urine [...] Epithelial Cells, Urine Many (A) None /HPF *Note: Due to a large number of results and/or encounters for the requested time period, some results have not been displayed. A complete set of results can be found in Results Review. Please, see top of note for IMPRESSION and PLAN. JA Diaz documented in this encounter Plan of Treatment Upcoming Encounters Date Type Department Care Team (Late st Contact Info) Description 08/23/2023 1:00 PM EDT [facility] [address] [place] [address] Antonio, Nurse Urology [facility] [address] [place] [address] 08/31/2023 1:00 PM EDT [facility] [address] [place] [address] Antonio Nurse Urology [facility] [address] [place] [address] 09/06/2023 1:00 PM EDT [facility] [address] [place] [address] Antonio Nurse Urology [facility] [address] [place] [address] 09/13/2023 3:00 PM EDT [facility] [address] [place] [address] Damaris Ramírez CRNP [address] [place] [address] 09/18/2023 3:00 PM EDT Office Visit Psychiatry, [facility] [address] [place] [address] Paty Haynes CRNP [address] [place] [address] 2023 1:30 PM EDT Nurse Only Ancillary [facility] [address] [place] [address] Im, Nurse Annual Wellness [facility] [address] [place] [address] 10/11/2023 2:30 PM EDT Imaging Radiology [facility] [place] [address] 10/11/2023 3:00 PM EDT Imaging Radiology [facility] [address] [facility] [place] [address] 10/19/2023 2:30 PM EDT Telemedicine Nutrition & Weight Management, [facility] [address] [facility] [place] [address] Maria E Cazares RDN [address] [place] [address] 10/27/2023 11:00 AM EDT Office Visit Sleep Disorders Ctr [facility] [address] [place] [id number] Charmaine Mckeon DO [address] [place] [address] 12/11/2023 10:45 AM EDT Office Visit Urology, [facility] [address] [place] [address] Mendel Zamora MD [address] [place] [address] [place] [address] 12/21/2023 2:40 PM EDT Office Visit General Internal Medicine [facility] [address] [facility] [place] [address] Jose M Seth MD [address] [facility] [place] [address] 01/25/2024 11:00 AM EDT Telemedicine Genetics HemOn, [facility] [address] [place] [address] Tonya Jovel, MS [address] [place] [address] Scheduled Orders Name Type Priority Associated Diagnoses Orde r Schedule MAMMOGRAM DIAGNOSTIC ANEL BILATERAL Medical Imaging Routine History of breast cancer Expected: 10/11/2023, Expires: 09/19/2024 CBC WITH WBC DIFFERENTIAL Lab STAT History of breast cancer Anemia, unspecified type MGUS (monoclonal gammopathy of unknown significance) Chemotherapy-induced neuropathy (HCC) Expected: 11/17/2023 (Approximate), Expires: 02/16/2024 COMPREHENSIVE METABOLIC PANEL Lab STAT History of breast cancer Anemia, unspecified type MGUS (monoclonal gammopathy of unknown significance) Chemotherapy-induced neuropathy (HCC) Expected: 11/17/2023 (Approximate), Expires: 02/16/2024 VITAMIN B12 Lab STAT History of breast cancer Anemia, unspecified type MGUS (monoclonal gammopathy of unknown significance) Chemotherapy-induced neuropathy (HCC) Expected: 11/17/2023 (Approximate), Expires: 02/16/2024 FOLIC ACID Lab STAT History of breast cancer Anemia, unspecified type MGUS (monoclonal gammopathy of unknown significance) Chemotherapy-induced neuropathy (HCC) Expected: 11/17/2023 (Approximate), Expires: 02/16/2024 SERUM PROTEIN ELECTROPHORESIS REFLEX PROFILE Lab STAT History of breast cancer Anemia, unspecified type MGUS (monoclonal gammopathy of unknown significance) Chemotherapy-induced neuropathy (HCC) Expected: 11/17/2023 (Approximate), Expires: 02/16/2024 SERUM FREE LIGHT CHAINS Lab STAT History of breast cancer Anemia, unspecified type MGUS (monoclonal gammopathy of unknown significance) Chemotherapy-induced neuropathy (HCC) Expected: 11/17/2023 (Approximate), Expires: 02/16/2024 IMMUNOGLOBULIN QUANTITATIVE Lab STAT History of breast cancer Anemia, unspecified type MGUS (monoclonal gammopathy of unknown significance) Chemotherapy-induced neuropathy (HCC) Expected: 11/17/2023 (Approximate), Expires: 02/16/2024 Health Maintenance Due Date Last Done Comments [...] as of this encounter Visit Diagnoses Diagnosis Encounter for follow-up examination after completed treatment for malignant neoplasm- Primary Unspecified follow-up examination History of breast cancer Personal history of [...] and were consensually agreed upon. Care Teams V Belt Mold Assembler And Curer Relationship Specialty Start Date End Date Jose M Seth MD [address] [place] [address] PCP - General Internal Medicine 11/21/11 documented as of this encounter
--- OUTSIDE RECORDS SUMMARY | 2023-12-07 12:18 | External Medical Summary | Summary of Care ---
Author Name Unknown Organization [facility] Address [address] [place] [address] Phone [phone] Care Team Providers Care Privacy Manager Name Role Phone Jose M Seth MD Primary Care Provider + Encounter Details Date Type Department Care Team (Late st Contact Info) Description 08/17/2023 1:00 PM EDT Nurse Only Urology, [facility] [place] [address] [place] [address] AlvarezNurse lily Urology [facility] [address] [place] [address] Allergies Active Allergy Reactions Criticality Noted Date [...] as of this encounter (statuses as of 08/17/2023) Medications Medication Sig Dispensed Refills Start Date [...] 100 Tab 0 04/15/2020 Active Saline Nasal [place] 0.65 % Nasal Solution ([place] Nasal [place]) Two sprays in each nostril as needed [...] as of this encounter (statuses as of 08/17/2023) Active Problems Problem Noted Date Diagnosed Date [...] as of this encounter (statuses as of 08/17/2023) Resolved Problems Problem Noted Date Diagnosed Date [...] M Seth MD Pharmacy: [facility] 08/09/2013 12/16/2015 Dementia 07/19/2013 2017 Encounter for [...] as of this encounter (statuses as of 08/17/2023) Immunizations Name Administration Dates Next Due COVID-19 mRNA, LNP-s, No Pre serve, 2-Dose Series ([employer]) 02/18/2021,08/10/2020,07/06/2020 COVID-19, MRNA-LNP, 23-24, P F, 30 MCG/0.3 mL, 12 YRS AND ABOVE, IM ([facility] [facility]) 04/11/2023 Covid-19, Mrna, Lnp-s, Pf, B ivalent, [...] Nursing Notes * Barbara Yeung LPN - 08/17/2023 3:26 PM EDT Patient in office for PTNS treatment #1. left ankle used. Tolerated 30 min treatment on level 8, patient self-advanced to 10. documented in this encounter Plan of Treatment Upcoming Encounters Date Type Department Care Team (Late st Contact Info) Description 08/23/2023 1:00 PM EDT [facility] [address] [facility] [place] [address] Nurse Yong Alvarez [address] [place] [address] 08/31/2023 1:00 PM EDT Nurse Only [facility] [address] [facility] [place] [address] Nurse Yong Alvarez [address] [place] [address] 09/06/2023 1:00 PM EDT Nurse Only [facility] [place] [address] Antonio Nurse Urology [facility] [address] [place] [address] 09/13/2023 3:00 PM EDT Office Visit Cardiology, [facility] [address] [facility] [place] [address] Damaris Ramírez CRNP 132 [facility] [place] [address] 09/18/2023 3:00 PM EDT Office Visit Psychiatry, [facility] [address] [place] [address] Paty Haynes CRNP [address] [place] [address] 2023 1:30 PM EDT Nurse Only Ancillary [facility] [address] [place] [address] Im, Nurse Annual Wellness [facility] [address] [place] [address] 10/11/2023 2:30 PM EDT Imaging Radiology [facility] 1st Floor, [place] [address] [facility] [place] [address] 10/11/2023 3:00 PM EDT Imaging Radiology [facility] [address] [facility] [place] [address] 10/19/2023 2:30 PM EDT Telemedicine Nutrition & Weight Management, [facility] 132 [facility] [place] [address] Maria E Cazares RDN [address] [place] [address] 10/27/2023 11:00 AM EDT Office Visit Sleep Disorders Ctr [facility] [address] [facility] [place] [phone] Charmaine Mckeon DO [address] [place] [address] 12/11/2023 10:45 AM EDT Office Visit Urology, [facility] [address] [place] [address] Mendel Macedo MD [address] [place] [address] [place] [address] 12/21/2023 2:40 PM EDT Office Visit General Internal Medicine [facility] [address] [facility] [place] [address] Jose M Seth MD [address] [place] [address] 01/25/2024 11:00 AM EDT Telemedicine Genetics [facility], [address] [address] Tonya Jovel, MS [address] [place] [address] Health Maintenance Due Date Last Done Comments [...] and were consensually agreed upon. Care Teams Privacy Manager Relationship Specialty Start Date End Date Jose M Seth MD 200 [place] [address] PCP - General Internal Medicine 11/21/11 documented as of this encounter
--- OUTSIDE RECORDS SUMMARY | 2023-12-07 12:18 | External Medical Summary | Summary of Care ---
Author Name Unknown Organization [facility] Address [address] [place] [address] Phone [phone] Care Team Providers Care Lens Polisher Name Role Phone Jose M Seth MD Primary Care Provider + Encounter Details Date Type Department Care Team (Late st Contact Info) Description 08/20/2023 Telephone Hematology/Oncology [facility] 200 [facility] [place] [address] Marietta Salazar CRNP [address] [place] [address] Allergies Active Allergy Reactions Criticality Noted [...] 100 Tab 0 04/15/2020 Active Saline Nasal [place] 0.65 % Nasal Solution ([place] Nasal [place]) Two sprays in each nostril as [...] Active LORazepam 0.5 MG Oral Tablet (Ativan)Indications: PETRE (generalized anxiety disorder) Take 1 Tablet by [...] mRNA, LNP-s, No Pre serve, 2-Dose Series (RoyaltyShare) 02/18/2021,08/10/2020,07/06/2020 COVID-19, MRNA-LNP, 23-24, P F, 30 MCG/0.3 mL, 12 YRS AND ABOVE, IM ([facility] [facility]) 04/11/2023 Covid-19, Mrna, Lnp-s, Pf, B ivalent, 30 Mcg, IM, 12 yrs and above (RoyaltyShare) 03/22/2022 Pneumococcal Conjugate Vacc, 13 Valent (Prevnar) [...] encounter Miscellaneous Notes * Telephone Encounter - Maria Del Rosario [...] Description 08/23/2023 1:00 PM EDT Nurse Only [place] [address] [place] [address] Nurse Yong Alvarez [address] [place] [address] 08/31/2023 1:00 PM EDT Nurse Only Urology, [facility] 132 [facility] [place] [address] Antonio, Nurse Urology [facility] [address] [place] [address] 09/06/2023 1:00 PM EDT Nurse Only Urology, [facility] 132 [facility] [place] [address] Alvarez, Nurse Urology [facility] [address] [place] [address] 09/13/2023 3:00 PM EDT Office Visit Cardiology, [facility] [address] [facility] [place], [place] [address] Damaris Ramírez CRNP 132 [facility], [place] [address] 09/18/2023 3:00 PM EDT Office Visit Psychiatry, [facility] [address] [place], [place] [address] Paty Haynes CRNP [address] [place], [place] [address] 2023 1:30 PM EDT Nurse Only Ancillary [facility] [address] [place], [place] [address] Im, Nurse Annual Wellness [facility] [address] [place], [place] [address] 10/11/2023 2:30 PM EDT Imaging Radiology [facility] 1st Floor, [place] 132 [facility] [place] [address] 10/11/2023 3:00 PM EDT Imaging Radiology [address] [address] 10/19/2023 2:30 PM EDT Telemedicine Nutrition & Weight Management, [facility] [address] [facility] [address] [place] [address] Maria E Cazares RDN 132 [facility] [address] 10/27/2023 11:00 AM EDT Office Visit [facility] 132 [facility] [place] [phone] Charmaine Mckeon DO 132 [facility] [place] [address] 12/01/2023 10:00 AM EDT Laboratory Laboratory [facility] [address] [place] [place] [address] Rosanna Massey [address] [place] [address] 12/08/2023 2:30 PM EDT Office Visit Hematology/Oncology [facility] [address] [place] [place] [address] [address] Marietta Salazar CRNP [address] [place] [address] [place] [address] 12/11/2023 10:45 AM EDT Office Visit Urology, [facility] 132 [place] [address] Mendel Macedo MD [address] [address] [place] [address] 12/21/2023 2:40 PM EDT Office Visit General Internal Medicine [facility] [address] [place] [address] [address] Jose M Seth MD 200 [facility] [place] [address] 01/25/2024 11:00 AM EDT Telemedicine Genetics [facility], [facility] 100 [place] [address] Tonya Jovel, MS [address] [place] [address] Health Maintenance Due Date Last Done Comments [...] and were consensually agreed upon. Care Teams Lens Polisher Relationship Specialty Start Date End Date Jose M Seth MD 200 [place] [address] PCP - General Internal Medicine 11/21/11 documented as of this encounter
--- OUTSIDE RECORDS SUMMARY | 2023-12-07 12:18 | External Medical Summary | Summary of Care ---
Author Name Unknown Organization [facility] Address [address] [place] [address] Phone [phone] Care Team Providers Care Post Manager Name Role Phone Jose M Seth MD Primary Care Provider + Encounter Details Date Type Department Care Team (Late st Contact Info) Description 08/20/2023 Telephone Hematology/Oncology [facility] 200 [facility] [place] [address] Marietta Salazar CRNP 400 [place] [address] Allergies Active Allergy Reactions Criticality Noted [...] 100 Tab 0 04/15/2020 Active Saline Nasal [place] 0.65 % Nasal Solution ([place] Nasal [place]) Two sprays in each nostril as needed [...] M Seth MD Pharmacy: [facility] 08/09/2013 12/16/2015 Dementia 07/19/2013 2017 Encounter for [...] mRNA, LNP-s, No Pre serve, 2-Dose Series (Sambazon) 02/18/2021,08/10/2020,07/06/2020 COVID-19, MRNA-LNP, 23-24, P F, 30 MCG/0.3 mL, 12 YRS AND ABOVE, IM ([facility]) 04/11/2023 Covid-19, Mrna, Lnp-s, Pf, B ivalent, 30 Mcg, IM, 12 yrs and above (Sambazon) 03/22/2022 Pneumococcal Conjugate Vacc, 13 Valent (Prevnar) [...] encounter Miscellaneous Notes * Telephone Encounter - Marietta Salazar CRNP - 08/20/2023 2:32 PM EDT Patient overdue for follow up with Dr. Vijaya Samano. Patient requested I send message to help facilitate scheduling. Please follow up with patient. Would also like to discuss having mediport removed. documented in this encounter Plan of Treatment Upcoming Encounters Date Type Department Care Team (Late st Contact Info) Description 08/23/2023 1:00 PM EDT [facility] 132 [facility] [place] [address] Nurse Erika Alvarezy Sinan [address] [place] [address] 08/31/2023 1:00 PM EDT Nurse Only [facility] 132 [facility] [place] [address] Nurse Yong Alvarez [address] [place] [address] 09/06/2023 1:00 PM EDT Nurse Only [facility]rikaySanam [facility] [address] [place] [address] Antonio Nurse Urology [facility] [address] [place] [address] 09/13/2023 3:00 PM EDT Office Visit Cardiology, [facility] 132 [facility] [place] [address] Damaris Ramírez CRNP 132 [facility] [place] [address] 09/18/2023 3:00 PM EDT Office Visit Psychiatry, [facility] [address] [place] [address] Paty Haynes CRNP [address] [place] [address] 2023 1:30 PM EDT Nurse Only Ancillary [facility] [address] [place] [address] Im, Nurse Annual Wellness [facility] [address] [place] [address] 10/11/2023 2:30 PM EDT Imaging Radiology [facility] 1st Floor, [place] 132 [facility] [place] [address] 10/11/2023 3:00 PM EDT Imaging Radiology [facility] 132 [facility] [place] [address] 10/19/2023 2:30 PM EDT Telemedicine Nutrition & Weight Management, [facility] 132 [facility] [place] [address] Maria E Cazares RDN [address] [place] [address] 10/27/2023 11:00 AM EDT Office Visit [facility] Disorders [facility] 132 [facility] [place] [phone] Charmaine Mckeon DO [address] [place] [address] 12/11/2023 10:45 AM EDT Office Visit Urology, [facility] [address] [place] [address] Menedl Macedo MD [address] [place] [address] [place] [address] 12/21/2023 2:40 PM EDT Office Visit General Internal Medicine [facility] 200 [facility] [place] [address] Jose M Seth MD [address] [place] [address] 01/25/2024 11:00 AM EDT Telemedicine Genetics [facility], [address] [address] Tonya Jovel, MS [address] [place] [address] Health Maintenance Due Date Last Done Comments [...] and were consensually agreed upon. Care Teams Post Manager Relationship Specialty Start Date End Date Jose M Seth MD 200 [place] [address] PCP - General Internal Medicine 11/21/11 documented as of this encounter
--- OUTSIDE RECORDS SUMMARY | 2023-12-07 12:19 | External Medical Summary ---
Author Name Unknown Address Unknown Organization [id number]:LABORATORY [facility] - [address] [facility] [place] [address] Laboratory Report Ordering Provider Test Date Status BRITTANY MONCADA 08/15/2023 11:15:21 Final Observation Date Value Abnormality Reference (Units ) Status Iron 08/15/2023 11:15:21 47 33-151 (ug /dL) Final Iron-binding capacity 08/15/2023 11:15:21 284 250-425 (ug/dL) Final Transferrin Sat % 08/15/2023 11:15:21 17 15 -55 (%) Final Performing Location LABORATORY [facility] - [address] [place] [address]
--- OUTSIDE RECORDS SUMMARY | 2023-12-07 12:19 | External Medical Summary | Summary of Care ---
Author Name Unknown Organization [facility] Address [address] [place] [address] Phone [phone] Care Team Providers Care Ballet Master/Mistress Name Role Phone Jose M Seth MD Primary Care Provider + Reason for Visit * Reason Comments Follow Up Encounter Details Date Type Department Care Team (Latest Contact Info) Description 08/07/2023 3:15 PM EDT Office Visit Urology, [facility] 132 [facility] [address] Mendel Macedo MD 27 [facility] [address] [place] [address] Postmenopausal atrophic vaginitis*; Urge incontinence Allergies Active Allergy Reactions Criticality Noted Date [...] as of this encounter (statuses as of 08/07/2023) Medications Medication Sig Dispensed Refills Start Date [...] 100 Tab 0 04/15/2020 Active Saline Nasal [place] 0.65 % Nasal Solution ([place] Nasal [place]) Two sprays in each nostril as needed [...] as of this encounter (statuses as of 08/07/2023) Active Problems Problem Noted Date Diagnosed Date [...] PSG -- AHI 10.7, <89% 128 mins [employer] Returned machine Jun 2013 Nocturnal hypoxemia 06/18/2012 Overview: 2 LPM [employer] 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 documented as of this encounter (statuses as of 08/07/2023) Resolved Problems Problem Noted Date Diagnosed Date [...] M Seth MD Pharmacy: [facility] 08/09/2013 12/16/2015 Dementia 07/19/2013 2017 Encounter [...] as of this encounter (statuses as of 08/07/2023) Immunizations Name Administration Dates Next Due COVID-19 mRNA, LNP-s, No Pre serve, 2-Dose Series (Diabetica) 02/18/2021,08/10/2020,07/06/2020 COVID-19, MRNA-LNP, 23-24, P F, 30 [...] as of this encounter Progress Notes * Mendel Macedo MD - 08/07/2023 3:15 PM EDT [id number] PCP: JOSE [address] [place], [place] [phone] Kathy Mccoy is a 77 year old female, who presents for three-month follow- up of her history ofurinary incontinence. Patient's past notes reviewed. She is not using oxybutynin, premarin, did notsee PT. She is still using 3-5 ppd. Urinary Incontinence: Presented to Urology April 2023. Patient is being seen for urinary incontinence. Problem has been present for years. Severity is moderate. Problem is about the same. Urinary incontinence is urge incontinence. They are using 3-5 pads a day. They have used [id number] mg XL mg. Did not try Myrbetriq in the past. Cystoscopy Oct 2022 showed atrophic vaginitis, history of menopause in the 50s, endometrial malignancy. Renal US Dec 2021: IMPRESSION 1. 1.0 cm simple right renal cyst. Current Outpatient Medications Medication Sig Dispense Refill [...] hours as needed. 100 Tab0 Saline Nasal [place] 0.65 % Nasal Solution (Emery Nasal [place]) Two sprays in each nostril as needed [...] COVID-19 mRNA Vaccine 12 years and above Diabetica 30 MCG/0.3 ML IM SUSP Inject into [...] No current facility-administered medications for this visit. Review of patient's allergies indicates: Allergen Reactions [...] Zyrtec [Cetirizine Hcl] Problems breathing, overly dry Social History: Social History Tobacco Use Smoking status: Never Smokeless tobacco: Never Tobacco comments: No passive smoke exposures Substance Use Topics Alcohol use: No Vaping/E-Cigarette Use Vaping/E-Cigarette Use Never User Vaping/E-Cigarette Substances Nicotine No Other No Flavoring No THC No Cannabidiol (CBD) No Vaping/E-Cigarette Devices Disposable No Pre-filled or Refillable Cartridge No Refillable Tank No Pre-filled Pod No Family History Problem Relation Age of Onset [...] hx of AMD retinal detachments or blindness Past Surgical History: Procedure Laterality Date ARTHROPLASTY KNEE TOTAL 01/[address] ríos BX LYMPH NODE DEEP AXIL Left 12/30/2020 BIOPSY LYMPH NODE DEEP AXILLARY OPEN performed by Vijaya Samano MD at [facility] CARPAL TUNNEL SURGERY 1996 left and right CATARACT SURGERY,COMPLEX Bilateral 10/2014 CHEMOTHERAPY 04/20/2020 completed 10/28/2020 neoadjuvant chemotherapy Adrianmycin & Cytoxan. Followed by 11 of 12 cycles of Taxol COLONOSCOPY W/ BIOPSY (RECTUM) 09/08/2010 polyp x1 , skin tags, path repeat in 5 years COLONOSCOPY, DIAGNOSTIC (RECTUM) 04/13/2016 normal/[facility] EGD, FLEXIBLE, DIAGNOSTIC 04/13/2016 acid reflux/[facility] EGD, FLEXIBLE, DIAGNOSTIC 02/24/2022 normal / ESOPHAGOGASTRODUODENOSCOPY (EGD), FLEXIBLE, TRANSORAL, DIAGNOSTIC performed by Rober Redding MD at [facility] IDENTIFY SENTINEL NODE, RADIOACTIVE TRACER Left 12/30/2020 INJECTION PROCEDURE FOR IDENTIFICATION SENTINEL NODE performed by Vijaya Samano MD at [facility] INFORMATION 11/13/2012 11/13/2012 insertion of A-port - left shoulder [facility] Dr. Vijaya Samano MASTECTOMY, PARTIAL Left 12/30/2020 MASTECTOMY PARTIAL performed by Vijaya Samano MD at [facility] PROCEDURE - GENERAL PROCEDURE - GENERAL N/A 04/08/2020 iNSERTION OF VENOUS ACCESS(CHEST) RADIATION THERAPY Left 04/13/2021 6640 cGy to left breast, supraclavicular area, and axilla REMOVE GALLBLADDER 1985 REPAIR INITIAL INGUINAL HERNIA REDUCIBLE AGE 5 OR MORE 2006 TOTAL ABD HYSTERECTOMY W/WO REMOVAL OF TUBE(S) 09/24/2012 TOTAL ABDOMINAL HYSTERECTOMY WITH OR WITHOUT TUBES AND OVARIES performed by Jacey Jewell MD at [facility] TOTAL HIP REPLACEMENT & PROSTHESIS Left 09/02/2016 TREAT ECTOPIC , TUBE/OVARY 1963 US GUIDED BREAST BIOPSY LEFT Left 02/26/2020 Axillary biopsy- benign US GUIDED BREAST BIOPSY 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 Plasencia Past Medical History: Diagnosis Date Arthritis of [...] of wound infection 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 2016 Major depressive disorder, recurrent, unspecified (HCC) 09/11/2019 MGUS (monoclonal gammopathy of unknown significance) 04/15/2019 Mixed hyperlipidemia 11/06/2018 MRSA (methicillin resistant staph aureus) culture positive 09/02/2016 Nocturnal hypoxemia 06/18/2012 Nonrheumatic aortic valve stenosis 11/05/2018 Obstructive sleep apnea 06/18/2012 OCD (obsessive compulsive disorder) excessive checking to turn things off Other anxiety states Peripheral neuropathy 07/14/2022 Pulmonary arterial hypertension (HCC) Sleep apnea, obstructive Patient Active Problem List Diagnosis Code Obstructive [...] 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 Appearance: She is obese. She is not ill-appearing or toxic-appearing. Comments: Using walker HENT: Head: Normocephalic. Right Ear: External ear normal. Left Ear: External ear normal. Nose: Nose normal. Mouth/Throat: Mouth: Mucous membranes are moist. Eyes: Extraocular Movements: Extraocular movements intact. Pulmonary: Effort: Pulmonary effort is normal. No respiratory distress. Neurological: Mental Status: She is oriented to person, place, and time. Motor: Weakness present. Gait: Gait abnormal. Psychiatric: Behavior: Behavior normal. Thought Content: Thought content normal. Impression/Plan: 77 yo female with persistent incontinence Patient remains very anxious about side effects from medication or vaginal cream. She is offered PTNS in an attempt to avoid side effects related to medication. Mechanism of action is reviewed. Will initiate therapy, RTO in 4 months to check on progress. Declines trial of alternate antispasmodics. Above content is personally reviewed. Patient vocalizes good understanding of the treatment plan. Mendel Macedo MD 11:50 AM 08/07/2023 documented in this encounter Nursing Notes * Nancie Sharif LPN - 08/07/2023 3:26 PM EDT 3 month ret Incontinence, atrophic vaginitis Premarin, oxybutynin C/o- patient notes improvement in her symptoms documented in this encounter Plan of Treatment Upcoming Encounters Date Type Department Care Team (Late st Contact Info) Description 08/14/2023 1:00 PM EDT Laboratory Laboratory [facility] [address] [place] [phone] Rosanna Massey [address] [place] [address] 08/14/2023 2:00 PM EDT Office Visit Hematology/Oncology [facility] [address] [facility] [place] [address] Marietta Salazar CRNP 400 [facility] [place] [address] 09/13/2023 3:00 PM EDT Office Visit Cardiology, [facility] 132 [place] [address] Damaris Ramírez CRNP 132 [facility] [address] 09/18/2023 3:00 PM EDT Office Visit Psychiatry, [facility] 200 [facility] [place] [address] Paty Haynes CRNP 200 [facility] [place] [address] 2023 1:30 PM EDT Nurse Only Ancillary [facility] 200 [facility] [place] [address] Im, Nurse Annual Wellness [facility] 200 [facility] [place], [place] [address] 10/11/2023 2:30 PM EDT Imaging [facility] 132 [place] [address] 10/11/2023 3:00 PM EDT Imaging Radiology [facility] 132 [place] [address] 10/19/2023 2:30 PM EDT Telemedicine Nutrition & Weight Management, [facility] 132 [place] [address] Maria E Cazares RDN 132 [facility] [place] [address] 10/27/2023 11:00 AM EDT Office Visit Sleep Disorders Ctr [facility] 132 [place] [address] Charmaine Mckeon, DO [address] [place] [address] 12/21/2023 2:40 PM EDT Office Visit General Internal Medicine [facility] [place] 200 [facility] [place] [address] Jose M Seth MD 200 [facility] [place] [address] 01/25/2024 11:00 AM EDT Telemedicine Genetics [facility], [facility] [address] [place] [address] Tonya Jovel, MS [address] [place] [address] Health Maintenance Due Date Last Done Comments [...] as of this encounter Visit Diagnoses Diagnosis Postmenopausal atrophic vaginitis- Primary Urge incontinence documented in this encounter Advance Directives Latest Code Status on File Code Status Date Activated Date Inactivated Comments Full Code 09/24/2012 8:15 PM 10/02/2012 7:35 PM This o rder reflects the patients wishes and were consensually agreed upon. Care Teams Ballet Master/Mistress Relationship Specialty Start Date End Date Jose M Seth MD 200 [place] [address] PCP - General Internal Medicine 11/21/11 documented as of this encounter
--- OUTSIDE RECORDS SUMMARY | 2023-12-07 12:19 | External Medical Summary ---
Author Name Unknown Address Unknown Organization K01:LABORATORY [facility] - [address] [facility] [place]. [facility] [address] Laboratory Report Ordering Provider Test Date Status BRITTANY MONCADA 08/15/2023 11:15:21 Final Observation Date Value Abnormality Reference (Units ) Status Ferritin 08/15/2023 11:15:21 249 Above high normal 13 -150 (ng/mL) Final Postmenopausal women have hi gher ferritin levels than pre-menopausal women. The above reference interval is based on pre-menopausal women. Performing Location LABORATORY [facility] - [address] [place] [facility] [address]
--- OUTSIDE RECORDS SUMMARY | 2023-12-07 12:19 | External Medical Summary ---
Author Name Unknown Address Unknown Organization K09:LABORATORY [facility] - [address] [place] [address] Laboratory Report Ordering Provider Test Date Status BRITTANY MONCADA 08/15/2023 11:15:21 Final Observation Date Value Abnormality Reference (Units ) Status BUN 08/15/2023 11:15:21 17 6-20 (mg/dL) Final Creatinine 08/15/2023 11:15:21 0.8 0.5-1.0 (mg/dL) Final Glomerular filtration rate/1.73 sq M.predicted [Volume Rate/Area] in Serum, Plasma or Blood by Creatinine-based formula (CKD-EPI) 08/15/2023 11:15:21 72 >=60 (mL/min) Final eGFR is calculated based on the CKD-EPI 2020 equation SODIUM 08/15/2023 11:15:21 136 135-146 (m mol/L) Final Potassium 08/15/2023 11:15:21 4.4 3.5-5.1 (m mol/L) Final Cl 08/15/2023 11:15:21 99 98-107 (mm ol/L) Final CO2 08/15/2023 11:15:21 28 22-32 (mmo l/L) Final Anion gap 08/15/2023 11:15:21 9 7-15 (mmol /L) Final Glucose 08/15/2023 11:15:21 112 70-120 (mg /dL) Final Albumin 08/15/2023 11:15:21 3.9 3.8-5.0 (g /dL) Final AST (Aspartate aminotransferase) 08/15/2023 11:15:21 19 10-35 (U/L) Fin al Alk Phos 08/15/2023 11:15:21 48 35-130 (U/ L) Final Bilirubin, Total 08/15/2023 11:15:21 0.4 <=1 .2 (mg/dL) Final Calcium 08/15/2023 11:15:21 9.5 8.4-10.2 ( mg/dL) Final Protein 08/15/2023 11:15:21 7.7 6.0-8.3 (g /dL) Final ALT (Alanine aminotransferase) 08/15/2023 11:15:21 <5 Below low normal 10-35 (U/L) Final Performing Location LABORATORY [facility] [address] [place] [address]
--- OUTSIDE RECORDS SUMMARY | 2023-12-07 12:19 | External Medical Summary ---
Author Name Unknown Address Unknown Organization K09:LAB[facility]ATORY [place] [address] Laboratory Report Ordering Provider Test Date Status BRITTANY MONCADA 08/15/2023 11:15:21 Final Observation Date Value Abnormality Reference (Units ) Status SYNC LEUKOCYTES IN BLOOD BY AUTOMATED COUNT 08/15/2023 11:15:21 3.29 Below low normal 4.00-10.80 (K/uL) Final Segs 08/15/2023 11:15:21 49.3 40.0-75.0 (%) Final Lymphs % 08/15/2023 11:15:21 31.9 18.0-42.0 (%) Final Monos 08/15/2023 11:15:21 14.9 Above high normal 1.0-11.0 (%) Final Eosinophils 08/15/2023 11:15:21 3.6 0.0-6.0 (%) Final Basos 08/15/2023 11:15:21 0.3 0.0-2.0 (%) Final Absolute Segs 08/15/2023 11:15:21 1.62 Below low normal 1.80-7.70 (K/uL) Final Lymphs, absolute 08/15/2023 11:15:21 1.05 1.00-4.80 (K/ul) Final Monos, Abs 08/15/2023 11:15:21 0.49 0.00-1.10 (K/uL) Final Eos, Abs 08/15/2023 11:15:21 0.12 0.00-0.70 (K/uL) Final Basos, Abs 08/15/2023 11:15:21 0.01 0.00-0.20 (K/uL) Final Performing Location [facility] [place] [address]
--- OUTSIDE RECORDS SUMMARY | 2023-12-07 12:19 | External Medical Summary | Summary of Care ---
Author Name Unknown Organization [facility] Address [address] [place] [address] Phone [phone] Care Team Providers Care Assembler Wire Mesh Gate Name Role Phone Jose M Seth MD Primary Care Provider + Reason for Visit * Reason Onset Date Comments Advice 08/14/2023 Encounter Details Date Type Department Care Team (Late st Contact Info) Description 08/14/2023 Telephone Hematology/Oncology [facility] [address] [place] [address] Marietta Salazar CRNP [address] [place] [address] Advice Allergies Active Allergy Reactions Criticality Noted [...] as of this encounter (statuses as of 08/14/2023) Medications Medication Sig Dispensed Refills Start Date [...] 100 Tab 0 04/15/2020 Active Saline Nasal [place] 0.65 % Nasal Solution (Meeker Nasal [place]) Two sprays in each nostril as needed [...] as of this encounter (statuses as of 08/14/2023) Active Problems Problem Noted Date Diagnosed Date [...] as of this encounter (statuses as of 08/14/2023) Resolved Problems Problem Noted Date Diagnosed Date [...] Jose M Seth MD Pharmacy: [facility]. Lumba 08/09/2013 12/16/2015 Dementia 07/19/2013 2017 Encounter for [...] as of this encounter (statuses as of 08/14/2023) Immunizations Name Administration Dates Next Due COVID-19 mRNA, LNP-s, No Pre serve, 2-Dose Series (S-cubism) 02/18/2021,08/10/2020,07/06/2020 COVID-19, MRNA-LNP, 23-24, P F, 30 MCG/0.3 mL, 12 YRS AND ABOVE, IM ([facility]) 04/11/2023 Covid-19, Mrna, Lnp-s, Pf, B ivalent, [...] encounter Miscellaneous Notes * Telephone Encounter - Gloria Mckeon LPN - 08/14/2023 8:58 AM EDT Saw message on teams from Monday that the patient called to have visit changed to video visit. There is no TE stating they spoke to anyone to authorize the video visit but the appointment was put in as video visit. The patient was to have labs drawn for this visit. Last labs were April. Would still need to have labs drawn for the video visit today Called left message on patient's phone to have labs drawn prior to this appointment this afternoon at 2pm which is a video visit. documented in this encounter Plan of Treatment Upcoming Encounters Date Type Department Care Team (Late st Contact Info) Description 08/14/2023 1:00 PM EDT Laboratory Laboratory [facility] [place] [address] [place] [phone] Rosanna [address]sey [address] [facility] [place] [address] 08/14/2023 2:00 PM EDT Telemedicine Hematology/Oncology [facility] [place] [address] [place] [phone] Marietta Salazar CRNP 400 [place] [address] 08/17/2023 1:00 PM EDT Nurse Only Urology, [facility] [address] [place] [address] Alvarez, Nurse Urology Sinan [address] [place] [address] 08/23/2023 1:00 PM EDT Nurse Only Urology, [facility] [address] [place] [address] Alvarez, Nurse Urology Sinan [address] [place] [address] 08/31/2023 1:00 PM EDT Nurse Only Urology, [facility] [address] [place] [address] Alvarez, Nurse Urology [facility] [address] [place] [address] 09/06/2023 1:00 PM EDT Nurse Only Urology, [facility] [address] [place] [address] [facility], Nurse Urology Sinan [address] [place] [address] 09/13/2023 3:00 PM EDT Office Visit Cardiology, [facility] [address] [place] [address] Damaris Ramírez CRNP [address] [place] [address] 09/18/2023 3:00 PM EDT Office Visit Psychiatry, [facility] 200 [place] [address] Paty Haynes CRNP 200 [facility] [place] [address] 2023 1:30 PM EDT Nurse Only Ancillary [facility] [address] [place] [address] Im, Nurse Annual Wellness [facility] [address] [place] [address] 10/11/2023 2:30 PM EDT Imaging Radiology [facility] 1st Floor, [place] 132 [facility] [place] [address] 10/11/2023 3:00 PM EDT Imaging Radiology [facility] 132 [facility] [place] [place] [address] 10/19/2023 2:30 PM EDT Telemedicine Nutrition & Weight Management, [facility] 132 [facility] [place] [address] Maria E Cazares RDN 132 [place] [address] 10/27/2023 11:00 AM EDT Office Visit Sleep Disorders Ctr [facility] 132 [facility] [place] [phone] Charmaine Mckeon DO 132 [facility] [place] [address] 12/11/2023 10:45 AM EDT Office Visit Urology, [facility] 132 [facility] [place] [address] Mendel Macedo MD [address] [address] [place] [address] 12/21/2023 2:40 PM EDT Office Visit General Internal Medicine [facility] [address] [place] [address] Jose M Seth MD 200 [place] [address] 01/25/2024 11:00 AM EDT Telemedicine Genetics [facility], [facility] [address] [place] [address] Tnoya Jovel, MS [address] [place] [address] Health Maintenance Due Date Last Done Comments [...] and were consensually agreed upon. Care Teams Assembler Wire Mesh Gate Relationship Specialty Start Date End Date Jose M Seth MD 200 [place] [address] PCP - General Internal Medicine 11/21/11 documented as of this encounter
--- OUTSIDE RECORDS SUMMARY | 2023-12-07 12:19 | External Medical Summary | Summary of Care ---
Author Name Unknown Organization [facility] Address [address] [place] [address] Phone [phone] Care Team Providers Care Bun Icer Name Role Phone Jose M Seth MD Primary Care Provider + Reason for Visit * Reason Onset Date Comments Health Maintenance 08/11/2023 Encounter Details Date Type Department Care Team (Late st Contact Info) Description 08/11/2023 Telephone General Internal Medicine [facility] 200 [place] [address] Jose M Seth MD 200 [place] [address] Health Maintenance Allergies Active Allergy Reactions Criticality Noted Date [...] as of this encounter (statuses as of 08/11/2023) Medications Medication Sig Dispensed Refills Start Date [...] 100 Tab 0 04/15/2020 Active Saline Nasal [place] 0.65 % Nasal Solution ([place]ub[place] Nasal [place]) Two sprays in each nostril as needed [...] as of this encounter (statuses as of 08/11/2023) Active Problems Problem Noted Date Diagnosed Date [...] PSG -- AHI 10.7, <89% 128 mins [facility] Returned machine Jun 2013 Nocturnal hypoxemia 06/18/2012 Overview: 2 LPM [facility] 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 documented as of this encounter (statuses as of 08/11/2023) Resolved Problems Problem Noted Date Diagnosed Date [...] 10/15/13 PCP: Jose M Seth [facility] 08/09/2013 12/16/2015 Dementia 07/19/2013 2017 Encounter [...] as of this encounter (statuses as of 08/11/2023) Immunizations Name Administration Dates Next Due COVID-19 mRNA, LNP-s, No Pre serve, 2-Dose Series (Soundvamp) 02/18/2021,08/10/2020,07/06/2020 COVID-19, MRNA-LNP, 23-24, P F, 30 MCG/0.3 mL, 12 YRS AND ABOVE, IM ([facility]) 04/11/2023 Covid-19, Mrna, Lnp-s, Pf, B ivalent, [...] encounter Miscellaneous Notes * Telephone Encounter - Priscilla Kirby LPN - 08/11/2023 8:42 AM EDT Care Gaps Comprehensive Care Outreach Last Office/Telemedicine Visit: 06/21/2023 (in office), 09/11/2019 (telemedicine) Next Office Visit: 12/21/2023 Hemoglobin AIC Results: Lab Results Component Value Date/Time HEMOGLOBIN A1C - [facility] 5.1 07/13/2022 03:07 PM HEMOGLOBIN A1C - [facility] 5.4 09/17/2021 10:50 AM HEMOGLOBIN A1C - [facility] 5.9 (H) 02/15/2021 10:50 AM HEMOGLOBIN A1C - [facility] 5.8 (H) 01/09/2020 04:34 PM HEMOGLOBIN A1C - [facility] 5.9 (H) 08/27/2019 08:45 AM HEMOGLOBIN A1C - [facility] 6.0 (H) 03/11/2019 11:19 AM BP Readings from Last 1 Encounters: 06/21/23 98/52 Reviewed Health Maintenance below: Health Maintenance Topic Date Due HbA1c 07/13/2023 Depression Screening 08/06/2024 DXA Scan 09/20/2024 DTaP,Tdap,and Td Vaccines (3 - Td or Tdap) 03/07/2032 Influenza Vaccine (FLU shot) Completed Labs already ordered Care Gap Outreach Action Taken: Outreach not indicated documented in this encounter Plan of Treatment Upcoming Encounters Date Type Department Care Team (Late st Contact Info) Description 08/14/2023 1:00 PM EDT Laboratory Laboratory [facility] [place] [address] [place] [phone] Shilpa, [facility] [address] [facility] [place] [address] 08/14/2023 2:00 PM EDT Office Visit Hematology/Oncology [facility] Sh[place]pa [place] [address] [place] [phone] Marietta Salazar CRNP 400 [facility] [place] [address] 08/17/2023 1:00 PM EDT [facility] [address] [place], [place] [address] Antonio Nurse Urology Sinan [address] [place], [place] [address] 08/23/2023 1:00 PM EDT [facility] [address] [place] [address] Antonio Nurse Urology Sinan [address] [place] [address] 08/31/2023 1:00 PM EDT [facility] [address] [place] [address] Antonio Nurse Urology Sinan [address] [place] [address] 09/06/2023 1:00 PM EDT [facility] [address] [place] [address] Antonio Nurse Urology Sinan [address] [place] [address] 09/13/2023 3:00 PM EDT Office Visit Cardiology, [facility] [address] [place] [address] Damaris Ramírez CRNP [address] [place] [address] 09/18/2023 3:00 PM EDT Office Visit Psychiatry, [facility] [address] [place] [address] Paty Haynes CRNP [address] [place] [address] 2023 1:30 PM EDT Nurse Only Ancillary [facility] [address] [place] [address] Im, Nurse Annual Wellness [facility] [address] [place] [address] 10/11/2023 2:30 PM EDT Imaging [facility] 132 [facility] [place] [address] 10/11/2023 3:00 PM EDT Imaging Radiology [facility] 132 [facility] [place] [address] 10/19/2023 2:30 PM EDT Telemedicine Nutrition & Weight Management, [facility] [address] [place] [address] Maria E Cazares RDN [address] [place] [address] 10/27/2023 11:00 AM EDT Office Visit [facility] [address] [place] [phone] Charmaine Mckeon DO [address] [place] [address] 12/11/2023 10:45 AM EDT Office Visit Urology, [facility] [address] [place] [address] Mendel Macedo MD 27 [facility] [address] [place] [address] 12/21/2023 2:40 PM EDT Office Visit General Internal Medicine [facility] 200 [facility] [place] [address] Jose M Seth MD 200 [facility] [address] 01/25/2024 11:00 AM EDT Telemedicine Genetics [facility], [place] [address] Tonya Jovel, MS [address] [place] [address] Health Maintenance Due Date Last Done Comments [...] and were consensually agreed upon. Care Teams Bun Icer Relationship Specialty Start Date End Date Jose M Seth MD 200 [facility] [place] [address] PCP - General Internal Medicine 11/21/11 documented as of this encounter
--- OUTSIDE RECORDS SUMMARY | 2023-12-07 12:19 | External Medical Summary | Summary of Care ---
Author Name Unknown Organization [facility] Address [address] [place] [address] Phone [phone] Care Team Providers Care Head Mixer Name Role Phone Jose M Seth MD Primary Care Provider + Reason for Visit * Reason Onset Date Comments Pre Cert/Prior Auth 08/09/2023 Encounter Details Date Type Department Care Team (Late st Contact Info) Description 08/09/2023 Telephone Urology Blanca Harvey [address] [place] [address] [place] [address] Mendel Macedo MD [address] [place] [address] [place] [address] Pre Cert/Prior Auth Allergies Active Allergy Reactions Criticality Noted Date [...] as of this encounter (statuses as of 08/09/2023) Medications Medication Sig Dispensed Refills Start Date [...] 100 Tab 0 04/15/2020 Active Saline Nasal [place] 0.65 % Nasal Solution ([place] Nasal [place]) Two sprays in each nostril as needed [...] as of this encounter (statuses as of 08/09/2023) Active Problems Problem Noted Date Diagnosed Date [...] PSG -- AHI 10.7, <89% 128 mins [facility] Returned machine Jun 2013 Nocturnal hypoxemia 06/18/2012 Overview: 2 LPM [facility] 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 documented as of this encounter (statuses as of 08/09/2023) Resolved Problems Problem Noted Date Diagnosed Date [...] Jose M Seth MD Pharmacy: [facility] 08/09/2013 12/16/2015 Dementia 07/19/2013 2017 [...] as of this encounter (statuses as of 08/09/2023) Immunizations Name Administration Dates Next Due COVID-19 mRNA, LNP-s, No Pre serve, 2-Dose Series (Amplience) 02/18/2021,08/10/2020,07/06/2020 COVID-19, MRNA-LNP, 23-24, P F, 30 [...] encounter Miscellaneous Notes * Telephone Encounter - Michelle Cardozo OSA - 08/09/2023 8:43 AM EDT Called Reena Thacker for prior auth for PTNS and spoke to [employer]. [employer] pays 80% and Medicaid pays 20%. documented in this encounter Plan of Treatment Upcoming Encounters Date Type Department Care Team (Late st Contact Info) Description 08/14/2023 1:00 PM EDT Laboratory Laboratory [facility] [address] [place] [phone] Rosanna Massey [facility] [address] [place] [address] 08/14/2023 2:00 PM EDT Office Visit Hematology/Oncology [facility] [place] [address] [place] [phone] Marietta Salazar CRNP [address] [place] [address] 08/17/2023 1:00 PM EDT Nurse Only Urology, [facility] [address] [place] [address] Alvarez, Nurse Urology Sinan [address] [place] [address] 08/23/2023 1:00 PM EDT Nurse Only Urology, [facility] [address] [place] [address] Alvarez, Nurse Urology Sinan [address] [place] [address] 08/31/2023 1:00 PM EDT Nurse Only Urology, [facility] [address] [place] [address] Alvarez, Nurse Urology Sinan [address] [place] [address] 09/06/2023 1:00 PM EDT Nurse Only Urology, [facility] [address] [place] [address] Alvarez, Nurse Urology Sinan [address] [place] [address] 09/13/2023 3:00 PM EDT Office Visit Cardiology, [facility] [address] [place] [address] Damaris Ramírez CRNP [address] [place] [address] 09/18/2023 3:00 PM EDT Office Visit Psychiatry, Brian Massey [address] [place] [address] Paty Haynes CRNP 200 [place] [address] 2023 1:30 PM EDT Nurse Only [facility]illary [facility] [address] [place] [address] Im, Nurse Annual Wellness [facility] [address] [place] [address] 10/11/2023 2:30 PM EDT Imaging Radiology [facility] 1st [facility] 132 [facility] [place] [address] 10/11/2023 3:00 PM EDT Imaging Radiology [facility] 132 [place] [address] 10/19/2023 2:30 PM EDT Telemedicine Nutrition & Weight Management, [facility] 132 [facility] [address] Maria E Cazares RDN 132 [facility] [place] [address] 10/27/2023 11:00 AM EDT Office Visit Sleep Disorders Ctr [facility] 132 [place] [phone] Charmaine Mckeon DO 132 [facility] [place] [address] 12/11/2023 10:45 AM EDT Office Visit Urology, [facility] 132 [place] [address] Mendel Macedo MD [address] [place] [address] 12/21/2023 2:40 PM EDT Office Visit General Internal Medicine [facility] [address] [place] [place] [address] Jose M Seth MD [address] [place] [address] 01/25/2024 11:00 AM EDT Telemedicine Genetics [facility], [facility] [address] [place] [address] Tonya Jovel, MS [address] [place] [address] Health Maintenance Due Date Last Done Comments [...] and were consensually agreed upon. Care Teams Head Mixer Relationship Specialty Start Date End Date Jose M Seth MD 200 [facility], [place] [phone] PCP - General Internal Medicine 11/21/11 documented as of this encounter
--- OUTSIDE RECORDS SUMMARY | 2023-12-07 12:20 | External Medical Summary | Summary of Care ---
Author Name Unknown Organization [facility] Address [address] [place] [address] Phone [phone] Care Team Providers Care Supervisor Adult Education Name Role Phone Jose M Seth MD Primary Care Provider + Reason for Visit * Reason Onset Date Comments Appointment 07/18/2023 Encounter Details Date Type Department Care Team (Late st Contact Info) Description 07/18/2023 Telephone Nutrition & Weight Management, [facility] [address] [place] [address] Maria E Cazares RDN [address] [place] [address] Appointment Allergies Active Allergy Reactions Criticality Noted [...] as of this encounter (statuses as of 08/02/2023) Medications Medication Sig Dispensed Refills Start Date [...] 100 Tab 0 04/15/2020 Active Saline Nasal [place] 0.65 % Nasal Solution (Brady Nasal [place]) Two sprays in each nostril as needed [...] at bedtime. 30 Capsule 2 07/13/2023 Active documented as of this encounter (statuses as of 08/02/2023) Active Problems Problem Noted Date Diagnosed Date [...] as of this encounter (statuses as of 08/02/2023) Resolved Problems Problem Noted Date Diagnosed Date [...] M Seth MD Pharmacy: [facility] 08/09/2013 12/16/2015 Dementia 07/19/2013 2017 [...] as of this encounter (statuses as of 08/02/2023) Immunizations Name Administration Dates Next Due COVID-19 mRNA, LNP-s, No Pre serve, 2-Dose Series (CredSimple) 02/18/2021,08/10/2020,07/06/2020 COVID-19, MRNA-LNP, 23-24, P F, 30 MCG/0.3 mL, 12 YRS AND ABOVE, IM ([facility] 04/11/2023 Covid-19, Mrna, Lnp-s, Pf, [...] Answer Date Recorded PHQ Adult Total Score 2 06/16/2023 Hunger Vital Sign Answer Date Recorded Within the past 12 months, y ou worried that your food would run out before you got the money to buy more. Never true 05/11/20 23 Within the past 12 months, t he food you bought just didn't last and you didn't have money to get more. Never true 05/11/2023 Sex and Gender Information Value Date Recorded Sex Assigned at Female 11/05/2018 10:53 AM EDT Gender Identity Female 11/05/2018 10:53 AM EDT Sexual Orientation Straight 11/05/2018 10 :53 AM EDT Job Start Date Occupation Industry Not on file Not on file Not on file documented as of this encounter Miscellaneous Notes * Telephone Encounter - Jazmin Josue OSA - 08/02/2023 4:40 PM EST Lmm * Telephone Encounter - Faviola Kent OSA - 07/18/2023 3:49 PM EST Check out notes from vv on 07/18/23 with [facility]. Return in about 3 months (around 10/16/2023) for Video to Home 3 m ret diet advice LMOM documented in this encounter Plan of Treatment Upcoming Encounters Date Type Department Care Team (Late st Contact Info) Description 08/07/2023 3:15 PM EDT Office Visit Urology, [facility] 132 [facility] [place] [address] Mendel Macedo MD [address] [facility] [place] [address] [place] [address] 08/14/2023 1:00 PM EDT Laboratory Laboratory [facility] [address] [place] [address] Shilpa [address] Scenery [address] [place] [address] 08/14/2023 2:00 PM EDT Office Visit Hematology/Oncology [facility] [address] [place] [phone] Marietta Salazar CRNP [address] [place] [address] 09/13/2023 3:00 PM EDT Office Visit Cardiology, [facility] [address] [place] [address] Damaris Ramírez CRNP [address] [place] [address] 09/18/2023 3:00 PM EDT Office Visit Psychiatry, [facility] [address] [place] [address] Paty Haynes CRNP [address] [place] [address] 2023 1:30 PM EDT Nurse Only Ancillary [facility] [address] [place] [address] Im, Nurse Annual Wellness [facility] 200 [place] [address] 10/11/2023 2:30 PM EDT Imaging Radiology [facility] [address] [place] [address] 10/11/2023 3:00 PM EDT Imaging Radiology [facility] 132 [facility] [place] [address] 10/27/2023 11:00 AM EDT Office Visit Sleep Disorders Ctr [facility] [address] [place] [phone] Charmaine Mckeon, [address] [place] [address] 12/21/2023 2:40 PM EDT Office Visit General Internal Medicine [facility] 200 [facility] [address] [place], [place] [address] Jose M Seth MD 200 [facility] [place], [place] [address] Health Maintenance Due Date Last Done Comments HbA1c 07/13/2023 07/13/2022, 08/28, 02/15/2021, Additional history exists Depression Screening 06/16/2024 06/16/2023 DXA Scan 09/20/2024 09/20/2021, 08/28, 10/23/2013, Additional [...] were consensually agreed upon. Care Teams Supervisor Adult Education Relationship Specialty Start Date End Date Jose M Seth MD 200 [facility], [place] [phone] PCP - General Internal Medicine 11/21/11 documented as of this encounter
--- OUTSIDE RECORDS SUMMARY | 2023-12-07 12:20 | External Medical Summary | Summary of Care ---
Author Name Unknown Organization [facility] Address [address] [place] [address] Phone [phone] Care Team Providers Care Sheet Metal Worker Apprentice Name Role Phone Jose M Seth MD Primary Care Provider + Reason for Visit * Reason Onset Date Comments Appointment 07/18/2023 Encounter Details Date Type Department Care Team (Late st Contact Info) Description 07/18/2023 Telephone Nutrition & Weight Management, [facility] [address] [place] [address] Maria E Cazares RDN [address] [place] [address] Appointment Allergies Active Allergy Reactions Criticality Noted [...] as of this encounter (statuses as of 08/04/2023) Medications Medication Sig Dispensed Refills Start Date [...] 100 Tab 0 04/15/2020 Active Saline Nasal [place] 0.65 % Nasal Solution ([place] Nasal [place]) Two sprays in each nostril as needed [...] as of this encounter (statuses as of 08/04/2023) Active Problems Problem Noted Date Diagnosed Date [...] as of this encounter (statuses as of 08/04/2023) Resolved Problems Problem Noted Date Diagnosed Date [...] as of this encounter (statuses as of 08/04/2023) Immunizations Name Administration Dates Next Due COVID-19 mRNA, LNP-s, No Pre serve, 2-Dose Series (uMix[employer]TV) 02/18/2021,08/10/2020,07/06/2020 COVID-19, MRNA-LNP, 23-24, P F, 30 MCG/0.3 mL, 12 YRS AND ABOVE, IM ([facility] 04/11/2023 Covid-19, Mrna, Lnp-s, Pf, B [...] Telephone Encounter - Jazmin Josue OSA - 08/04/2023 2:14 PM EST JOO Shea 08/04/2023 2:15 PM * Telephone Encounter - Jazmin Josue OSA [...] 08/07/2023 3:15 PM EDT Office Visit Urology, [facility] 132 [facility] [place] [address] Mendel Macedo MD 27 [facility] [address] [place] [address] 08/14/2023 1:00 PM EDT Laboratory Laboratory [facility] [address] [place], [place] [phone] Shilpa Lab [facility] [address] [place], [place] [address] 08/14/2023 2:00 PM EDT Office Visit Hematology/Oncology [facility] [address] [place], [place] [phone] Marietta Salazar, JA 400 [facility] [place] [address] 09/13/2023 3:00 PM EDT Office Visit Cardiology, [facility] 132 [facility] [place] [address] Damaris Ramírez CRNP 132 [facility] [address] 09/18/2023 3:00 PM EDT Office Visit Psychiatry, [facility] Shilpa [address] [place], [place] [address] Paty Haynes CRNP [address] [place], [place] [address] 2023 1:30 PM EDT Nurse Only Ancillary [facility] [address] [place], [place] [address] Im, Nurse Annual Wellness [facility] [address] [place], [place] [address] 10/11/2023 2:30 PM EDT Imaging Radiology [facility] 1st Floor, [place] 132 [facility] [address] 10/11/2023 3:00 PM EDT Imaging Radiology [facility] 132 [facility] [place] [address] 10/19/2023 2:30 PM EDT Telemedicine Nutrition & Weight Management, [facility] [address] [facility] [place] [address] Maria E Cazares RDN [address] [place] [address] 10/27/2023 11:00 AM EDT Office Visit Sleep Disorders Ctr [facility] 132 [facility] [place] [phone] Charmaine Mckeon DO 132 [facility] [place] [address] 12/21/2023 2:40 PM EDT Office Visit General Internal Medicine [facility] 200 [place] [address] Jose M Seth MD 200 [place] [address] Health Maintenance Due Date Last Done Comments [...] and were consensually agreed upon. Care Teams Sheet Metal Worker Apprentice Relationship Specialty Start Date End Date Jose M Seth MD 200 [place] [address] PCP - General Internal Medicine 11/21/11 documented as of this encounter
--- OUTSIDE RECORDS SUMMARY | 2023-12-07 12:20 | External Medical Summary | Summary of Care ---
Author Name Unknown Organization [facility] Address [address] [place] [address] Phone [phone] Care Team Providers Care Burr Sander Name Role Phone Jose M Seth MD Primary Care Provider + Reason for Visit * Reason Onset Date Comments Medication Refill 07/13/2023 Encounter Details Date Type Department Care Team (Late st Contact Info) Description 07/13/2023 Refill Psychiatry, [facility] 200 [facility] [place] [address] AllenPaty CRNP 200 [facility] [place] [address] PETER (generalized anxiety disorder); Mood disorder in [...] as of this encounter (statuses as of 07/13/2023) Medications Medication Sig Dispensed Refills Start Date [...] 100 Tab 0 0 Active Saline Nasal [place] 0.65 % Nasal Solution ([place] Nasal [place]) Two sprays in each nostril as needed [...] 06/14/2023 Atorvastatin Calcium 20 MG Oral Tablet (Lipitor)Indication s:Mixed hyperlipidemia TAKE 1 TABLET BY MOUTH IN THE MORNING 90 Tablet 3 4 Active LORazepam 0.5 MG Oral Tablet (Ativan)Indications :PETER (generalized anxiety disorder) Take 1 Tablet by mouth daily as needed for Anxiety. 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 30 Capsule 2 4 Active LORazepam 0.5 MG Oral Tablet [...] as of this encounter (statuses as of 07/13/2023) Active Problems Problem Noted Date Diagnosed Date [...] as of this encounter (statuses as of 07/13/2023) Resolved Problems Problem Noted Date Diagnosed Date [...] Jose M Seth MD Pharmacy: [facility] 08/09/2013 12/16/2015 Dementia 07/19/2013 2017 Encounter for antineoplastic chemotherapy 11/01/2012 01/04/2017 Endometrial cancer 2012 11/10/201 7 Blood glucose elevated 03/06/201201/04 Obesity, Class [...] as of this encounter (statuses as of 07/13/2023) Immunizations Name Administration Dates Next Due COVID-19 mRNA, LNP-s, No Pre serve, 2-Dose Series (MultiZona[employer]) 02/18/2021,08/10/2020,07/06/2020 COVID-19, MRNA-LNP, 23-24, P F, 30 MCG/0.3 mL, 12 YRS AND ABOVE, IM ([facility]) 04/11/2023 Covid-19, Mrna, Lnp-s, Pf, [...] Miscellaneous Notes * Telephone Encounter - Paty Allen CRNP - 07/13/2023 1:24 PM ESTSigned Prescriptions: Disp Refills LORazepam 0.5 MG Oral Tablet (Ativan) 10 Tab*0 Sig: Take 1 Tablet by mouth daily as needed for Anxiety.Authorizing Provider: PATY ALLEN Divalproex Sodium ER 250 MG Oral Tablet Ex*90 Tab*2 Sig: Take 3 Tablets by mouth every night at bedtime.Authorizing Provider: PATY ALLEN FLUoxetine HCl 20 MG Oral Capsule (PROzac) 30 Cap*2 Sig: Take 1 Capsule by mouth at bedtime.Authorizing Provider: PATY ALLEN * Telephone Encounter - Jessie Marcos OSA - 07/13/2023 11:39 AM EST Patient out of meds. Requesting a refill valeria so that her daughter may hot die picker from pharmacy. Patient calling for refill on Ativan, Depakote, and Prozac. Medication was last filled on 03/08/2023 with 2 refills. Patient last seen on 03/08/2023 with return appointment scheduled for 07/26/2023. Patient had 0 cancelled appointments and 0 NO SHOW appointments. documented in this encounter Plan of Treatment Upcoming Encounters Date Type Department Care Team (Late st Contact Info) Description 07/18/2023 2:10 PM EST Telemedicine Nutrition & Weight Management, [facility] [address] [place] [address] Maria E Cazares RDN [address] [place] [address] 07/26/2023 3:00 PM EST Telemedicine Psychiatry, [place] 21 [facility] [place] [address] Paty Allen CRNP 200 [facility] [place] [address] 08/07/2023 3:15 PM EDT Office Visit Urology, [facility] [address] [place] [address] Mendel Macedo MD [address] [place] [address] [place] [address] 08/14/2023 1:00 PM EDT Laboratory Laboratory [facility] [address] [place] [phone] [facility] [address] [facility] [place] [address] 08/14/2023 2:00 PM EDT Office Visit Hematology/Oncology [facility] [address] [place] [address] Marietta Salazar CRNP 400 [facility] [place] [address] 09/13/2023 3:00 PM EDT Office Visit Cardiology, [facility] [address] [facility] [place] [address] Damaris Ramírez CRNP 132 [facility] [place] [address] 2023 1:30 PM EDT Nurse Only Ancillary [facility] [address] [place] [address] Im, Nurse Annual Wellness [facility] [address] [place] [address] 10/11/2023 2:30 PM EDT Imaging [facility] [address] [facility] [place] [address] 10/11/2023 3:00 PM EDT Imaging Radiology [facility] [address] [facility] [place] [address] 10/27/2023 11:00 AM EDT Office Visit Sleep Disorders Ctr [facility] 132 [facility] [place] [phone] Charmaine Mckeon, DO [address] [place] [address] 12/21/2023 2:40 PM EDT Office Visit General Internal Medicine [employer] 200 [facility] [place] [address] Jose M Seth MD 200 [facility] [place] [address] Health Maintenance Due Date Last Done Comments [...] and were consensually agreed upon. Care Teams Burr Sander Relationship Specialty Start Date End Date Jose M Seth MD [address] [place] [address] PCP - General Internal Medicine 11/21/11 documented as of this encounter
--- OUTSIDE RECORDS SUMMARY | 2023-12-07 12:20 | External Medical Summary | Summary of Care ---
Author Name Unknown Organization [facility] Address [address] [place] [address] Phone [phone] Care Team Providers Care Claims Configuration Analyst Name Role Phone Jose M Seth MD Primary Care Provider + Encounter Details Date Type Department Care Team (Late st Contact Info) Description 07/18/2023 2:10 PM EST Telemedicine Nutrition & Weight Management, [facility] [address] [facility] [address] Maria E Cazares RDN [address] [facility] [place] [address] Obesity, Class II, BMI 35-39.9* Allergies Active [...] as of this encounter (statuses as of 07/18/2023) Medications Medication Sig Dispensed Refills Start Date [...] Active Incontinence Supply Disposable (BNA SKIN-CARING WASHCLOTHS) MISCIndications:Inco ntinence Use as needed [...] 100 Tab 0 04/15/2020 Active Saline Nasal [place] 0.65 % Nasal Solution ([place] Nasal [place]) Two sprays in each nostril as needed [...] as needed for Anxiety. 10 Tablet 0 07/13/2023 Active Divalproex Sodium ER 250 MG Oral [...] as of this encounter (statuses as of 07/18/2023) Active Problems Problem Noted Date Diagnosed Date [...] PSG -- AHI 10.7, <89% 128 mins [facility] Returned machine Jun 2013 Nocturnal hypoxemia 06/18/2012 Overview: 2 LPM [facility] 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 documented as of this encounter (statuses as of 07/18/2023) Resolved Problems Problem Noted Date Diagnosed Date [...] Jose M Seth MD Pharmacy: [facility]. Lumbago 08/09/2013 12/16/2015 Dementia 07/19/2013 2017 Encounter for [...] as of this encounter (statuses as of 07/18/2023) Immunizations Name Administration Dates Next Due COVID-19 mRNA, LNP-s, No Pre serve, 2-Dose Series (RIGID) 02/18/2021,08/10/2020,07/06/2020 COVID-19, MRNA-LNP, 23-24, P F, 30 MCG/0.3 mL, 12 YRS AND ABOVE, IM ([employer]) 04/11/2023 Covid-19, Mrna, Lnp-s, Pf, B ivalent, [...] Notes * Maria E Cazares RDN - 07/18/2023 2:10 PM EST NUTRITION & WEIGHT MANAGEMENT PROGRESS NOTE [facility] Name: Kathy Mccoy Location: NUTRITION & WEIGHT MANAGEMENT, [facility] Date: 07/18/2023 Time: 9:53 AM Patient was identified at visit by name and date. Patient location: HOME. I was in a hospital or clinic location. After connecting through [employer],patient was verified with two unique identifiers. Patient (or authorized legal ambulatory services representative) was then informed that this was a Telemedicine visit and being conducted confidentially over secure lines. Methods to assure confidentiality were taken. Patient acknowledged consent and understanding of p rivacy and security of the Telemedicine visit. The patient agreed to participate. NUTRITION ASSESSMENT SUBJECTIVE: 77 year old female seen in the [facility] clinic for weight and nutrition support. Hx of JOO with nocturnal hypoxia, MDD, GERD, prediabetes, diastolic heart failure, obesity, chronic back pain, hx breast cancer, hx uterine cancer PRIOR NUTRITION COUNSELING: Weight Management Clinic PERTINENT MEDICATIONS: gabipentin, pantoprazone, lipitor FOOD ALLERGY/INTOLERANCE ISSUES: None 07/18/23 -Routine dietary follow up -Cutting back on "junk" -having 2 good meals a day -Daughter Haleigh is with pt today during our VV 04/14/23 -6 m dietary follow up -Says diet -eating junk feels it is stress related, seasonal depression -Feels she needs a routine -Can get up okay in AM, goes to bed 10-11 pm -No longer has cable 10/07/22 -6 m ret -Gets up no later than 9am Describes typical diet history/24 hr recall Breakfast: Eggs (at least 3 times a week) and/or oatmeal (does not like fruit with oatmeal), or raisin bran crunch can skip a few days Snacks: Sometimes a yogurt or banana or leftover salad Lunch: bkfst determines what she has for lunch, can have some PB on a slice of bread, homemade soups Snacks: can have canned fruit in juice Dinner: Tacos with ground turkey, chix, BBQ pork ribs, salmon, orange roughy or ashlie (unbreaded)will use air fryer Snacks: has cut back on sweets Drinks: water Alcohol: None Using a smaller bowl for ice cream Restaurant meals: rare PHYSICAL ACTIVITY: Ambulates with a walker Doing some light exercises in building Walking more when out at the store Trying to walk the halls in her apartment building DIET RECALL INDICATES: Inadequate fruit and vegetable intake Portion control Good meal distribution Adequate protein intake Progress on goals from the previous visit: Doing well with the below targets -Cut back on sweets. Limit sweets to no more than twice a week. -Focus on lean proteins, lots of fruits and vegetables (4-6 c a day) -Limit highly processed foods ANTHROPOMETRICS: Initial clinic visit 04/06/22 Weight 202 lbs Height 63" ABW: 136 lbs/ 61.8 Weight goal: Feels better at 160 lbs Current weight: 193 lbs self reported MARIELLA Weight: 198 lbs Date: 03/24/23 Weight changes: -9 lbs since initial visit Wt Readings from Last 10 Encounters: 06/21/23 87.9 kg (193 lb 11.2 oz) 05/11/23 85.7 kg (188 lb 14.4 oz) 05/02/23 88.5 kg (195 lb 1.6 oz) 03/24/23 90.1 kg (198 lb 11.2 oz) 03/17/23 88.9 kg (196 lb) 02/07/23 89.4 kg (197 lb 3.2 oz) 12/09/22 90.2 kg (198 lb 12.8 oz) 11/15/22 88.9 kg (196 lb) 10/18/22 90.2 kg (198 lb 14.4 oz) 10/07/22 90.4 kg (199 lb 6.4 oz) MNT: Calorie Controlled Diet, High Fiber Diet, Good Nutrition, Nutrient Dense Diet Patient is interested in the following treatment options for obesity: medical management. LABS:Current labs pending. NUTRITION PRESCRIPTION: [place]. Jeor 1352 x 1.2 activity factor = 1662 Kcals --> 1200 Kcals for weight loss Protein: 1.0-1.2 gm protein/kg (61.8 kg) = 60-75 gm protein/day Fluid: 22 mL/kg (61.8 kg) = 1359 mL/da KNOWLEDGE ASSESSMENT: adequate knowledge BARRIERS TO LEARNING: None SPECIAL EDUCATION NEEDS: None NUTRITION DIAGNOSIS: Overweight/obesity related to excessive energy intake and physical inactivity as evidenced by BMI of 36.6 kg/m, Class II Obesity. NUTRITION INTERVENTION INSTRUCTED PT ON THESE NUTRITION HANDOUTS: None given PATIENT GOALS: -Continue to limit sweets and use smaller portions. Limit sweets to no more than twice a week. -Focus on lean proteins, lots of fruits and vegetables (4-6 c a day) -Limit highly processed foods EXPECTED OUTCOMES: Demonstrated interest in learning. Expect compliance with diet recommendations. PLAN: 3 m ret diet advice 20 min visit Maria E Cazares RDN documented in this encounter Plan of Treatment Upcoming Encounters Date Type Department Care Team (Late st Contact Info) Description 07/26/2023 3:00 PM EST Telemedicine Psychiatry, [place] [address] [place] [address] Paty Haynes CRNP 200 [facility] [place] [id number] 08/07/2023 3:15 PM EDT Office Visit Urology, [facility] 132 [place] [address] Mendel Macedo MD [address] [address] [place] [address] 08/14/2023 1:00 PM EDT Laboratory Laboratory [facility] [address] [place] [phone] [facility] 200 [facility] [place] [address] 08/14/2023 2:00 PM EDT Office Visit Hematology/Oncology [facility] [address] [place] [phone] Marietta Salazar CRNP 400 [facility] [place] [id number] 09/13/2023 3:00 PM EDT Office Visit Cardiology, [facility] 132 [place] [address] Damaris Ramírez CRNP 132 [facility] [address] 2023 1:30 PM EDT Nurse Only Ancillary [facility] [address] [place] [address] Im, Nurse Annual Wellness [facility] 200 [facility] [place] [address] 10/11/2023 2:30 PM EDT Imaging Radiology [facility] 132 [employer] [place] [address] 10/11/2023 3:00 PM EDT Imaging Radiology [facility] 132 [facility] [place] [address] 10/27/2023 11:00 AM EDT Office Visit Sleep Disorders Ctr [facility] [place] [address] [place] [phone] Charmaine Mckeon DO [address] [place] [address] 12/21/2023 2:40 PM EDT Office Visit General Internal Medicine Brian Massey [place] 200 [facility] [address] [place] [address] Jose M Seth MD 200 [facility] [place] [address] Health Maintenance Due Date Last Done Comments [...] obesity documented in this encounter Advance Directives Latest Code Status on File Code Status Date Activated Date Inactivated Comments Full Code 09/24/2012 8:15 PM 10/02/2012 7:35 PM This o rder reflects the patients wishes and were consensually agreed upon. Care Teams Claims Configuration Analyst Relationship Specialty Start Date End Date Jose M Seth MD 200 [place] [address] PCP - General Internal Medicine 11/21/11 documented as of this encounter
--- OUTSIDE RECORDS SUMMARY | 2023-12-07 12:20 | External Medical Summary | Summary of Care ---
Author Name Unknown Organization [facility] Address [address] [place] [address] Phone [phone] Care Team Providers Care [employer] Principal Name Role Phone Jose M Seth MD Primary Care Provider + Reason for Visit * Reason Comments Medication Management Follow Up * - Authorized Specialty Diagnoses / Procedures Referred By Nelia noble Referred To Contact Referral ID Status Reason Start Date Expiration Date V isits Requested Visits Authorized [id number] Authorized 11/26/2022 11/26/2023 [id number] Encounter Details Date Type Department Care Team (Late st Contact Info) Description 07/26/2023 3:00 PM EST [facility] Psychiatry, [place] [address] [place] [address] Paty Haynes CRNP [address] [place], [place] [id number] 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 10 Tablet 0 4 07/26/19 24 Discontinu ed(Refill) documented as of this encounter (statuses as of 07/28/2023) Active Problems Problem Noted Date Diagnosed Date [...] as of this encounter (statuses as of 07/28/2023) Resolved Problems Problem Noted Date Diagnosed Date [...] as of this encounter (statuses as of 07/28/2023) Immunizations Name Administration Dates Next Due COVID-19 mRNA, LNP-s, No Pre serve, 2-Dose Series (Accuri Cytometers) 02/18/2021,08/10/2020,07/06/2020 COVID-19, MRNA-LNP, 23-24, P F, 30 MCG/0.3 mL, 12 YRS AND ABOVE, IM (AngioChem-Comirnaty) 04/11/2023 Covid-19, Mrna, Lnp-s, Pf, B ivalent, [...] Progress Notes * Paty Haynes CRNP - 07/26/2023 3:00 PM EST OUTPATIENT PSYCHIATRY [place] [address] MEDICATION MANAGEMENT & PSYCHOTHERAPY RETURN VISIT NOTE Name: Kathy Mccoy : 1945 Date Seen: 07/28/2023 LOCATION FROM WHICH SERVICE IS DELIVERED Office location PATIENT'S CURRENT PHYSICAL LOCATION Home After connecting to the patient via telephone, the patient was identified by name and date of . Patient was then informed that this was a telephone call only visit. The patient agreed to participate. Visit Disposition: Routine follow-up Total call duration was 25 minutes. SUBJECTIVE: Kathy Mccoy is a 77 year [...] feels restless Psychosis: none CURRENT PSYCHIATRIC PROVIDERS/SERVICES: [facility] case management for waiver program MEDICATION SIDE [...] services provided by her daughter, Haleigh, through [facility] waiver program. Shewas x 2 and x [...] appointments: Wt Readings from Last 3 Encounters: 06/21/23 87.9 kg (193 lb 11.2 oz) 05/11/23 85.7 kg (188 lb 14.4 oz) 05/02/23 88.5 kg (195 lb 1.6 oz) LABORATORY RESULTS: No results found for this or any previous visit (from the past 1344 hour(s)). REVIEW OF SYSTEMS: Unremarkable MENTAL STATUS EVALUATION: General Appearance: unable to assess Attitude/Behavior: cooperative, open and friendly, engaged Motor Behavior/Muscle Strength & Tone/Gait & Station: unable to assess Speech: normal, rate, tone and volume and goal directed Mood: euthymic Affect: unable to assess Thought Process: linear Thought Content/Perceptions: denies suicidal ideations, homicidal ideations, [...] Insight: fair Judgement: fair Impulse Control: fair [place] Suicide Severity Rating Scale Results 07/26/2023 15:29 [place] SUICIDE SEVERITY RATING SCALE (C-SSRS) Have [...] is assessed to be minimal atthis time. Outpatient Adult Psychiatry Treatment Plan Treatment plan was developed on 03/08/23, treatment will continue to focus on goals below; Treatment update will occur when clinically indicated or by 09/07/23. Patient's goals captured in patient's words: "to have stable mood and be the buffer in the situation." Crisis Planning: What I can do if I ever experience a crisis (much worse symptoms, severe distress or thoughts of self-harm): Watching Show/Movie, Talking to loved one or friend or trusted person andDistraction on computer/TV People I can call in the event of a crisis: Family Member daughters Additional resources I can utilize if the previous steps are ineffective (e.g: ED, hotlines): Suicide and Crisis Lifeline - 988 and eTutor access to crisis numbers Patient/Family Received Copy of Treatment Plan: Patient has access to Bus[employer] Signature Obtained on Treatment Plan: No Expected family or significant other involvement: Offer Support and Crisis Support Patient strengths and facilitating factors to care:Seeking help, Goal Oriented, Attempting to realize ones potential, Has a purpose in life, Has hobbies, Good support system, Cultural/spiritual/mu-ism and community involvement, Access to housing, Cooperative and Able to care for own personal hygiene Patient Identified Needs/Goals Interventions/Type of Service Duration of Treatment Frequency of Treatment Objective/ Discharge Criteria Problem/Need1: Medication Mangement Medication Management 3 year Q2 Months Achieved maintenance treatment phase at full therapeutic dosage for 6-12 months TREATMENT PROGRESS/UPDATE, ASSESSMENT, FORMULATION, AND PLAN: Kathy [...] on self improvement - currently working of [employer] of needs. Pt enjoys these activities. Has [...] regulations before prescribing a controlled substance. Laboratory/Diagnostics: reviewed Community support/Counseling: Continue to offer psychotherapy utilizing Supportive listening as adjunct to evaluation, managementand prescription of psychiatric medications. Referral for population health placed to discuss available community services pt could participate. PCP/medical: Continue to follow up with primary care provider and/or medical specialists as scheduled/appropriate. Return Appointment: Kathy Mccoy is to return in 8 weeks. Sooner [...] symptom management and pose increased health risks. Paty Haynes, MSN, MODEL MAKER, PMHNP-[facility] Psychiatry [facility] Current Outpatient Medications Medication Sig Dispense Refill LORazepam 0.5 MG Oral Tablet (Ativan) Take 1 Tablet by mouth daily as needed for Anxiety. 10 Tablet0 PROCARE ADULT BRIEFS X-LARGE MISC use as [...] hours as needed. 100 Tab0 Saline Nasal [place] 0.65 % Nasal Solution (Yalobusha Nasal [place]) Two sprays in each nostril as needed [...] by mouth at bedtime. 30 Capsule 2 No current facility-administered medications for this visit. documented in this encounter Plan of Treatment Upcoming Encounters Date Type Department Care Team (Late st Contact Info) Description 08/07/2023 3:15 PM EDT Office Visit Urology, [facility] 132 [facility] [place] [address] Mendel Macedo MD 27 [facility] [address] [place] [address] 08/14/2023 1:00 PM EDT Laboratory Laboratory Brian Massey [place] [address] [phone] [place] [address] 08/14/2023 2:00 PM EDT Office Visit Hematology/Oncology [facility] [place] [address] [phone] Marietta Salazar CRNP 400 [facility] [place] [address] 09/13/2023 3:00 PM EDT Office Visit Cardiology, [facility] 132 [facility] [place] [address] Damaris Ramírez CRNP 132 [facility] [place] [address] 09/18/2023 3:00 PM EDT Office Visit Psychiatry, [facility] [address] [place] [address] Paty Haynes CRNP [address] [place] [address] 2023 1:30 PM EDT Nurse Only Ancillary [facility] [address] [place] [address] Im, Nurse Annual Wellness [facility] 200 [facility] [place] [address] 10/11/2023 2:30 PM EDT Imaging Radiology [facility] 132 [facility] [place] [address] 10/11/2023 3:00 PM EDT Imaging Radiology [facility] 132 [facility] [place] [address] 10/27/2023 11:00 AM EDT Office Visit Sleep Disorders Ctr [facility] 132 [facility] [place] [phone] Charmaine Mckeon DO 132 [facility] [place] [address] 12/21/2023 2:40 PM EDT Office Visit General Internal Medicine [facility] [address] [place] [address] Jose M Seth MD 200 [place] [address] Health Maintenance Due Date Last Done Comments [...] (HCC)- Primary Other specified episodic mood disorder PETER (generalized anxiety disorder) Generalized anxiety disorder documented in this encounter Advance Directives Latest Code Status on File Code Status Date Activated Date Inactivated Comments Full Code 09/24/2012 8:15 PM 10/02/2012 7:35 PM This o rder reflects the patients wishes and were consensually agreed upon. Care Teams [employer] Principal Relationship Specialty Start Date End Date Jose M Seth MD 200 [facility], [place] [address] PCP - General Internal Medicine 11/21/11 documented as of this encounter
--- OUTSIDE RECORDS SUMMARY | 2023-12-07 12:21 | External Medical Summary | Summary of Care ---
Author Name Unknown Organization [facility] Address [address] [place] [address] Phone [phone] Care Team Providers Care Appointment Coordinator Name Role Phone Jose M Seth MD Primary Care Provider + Reason for Visit * Reason Onset Date Comments Advice 07/04/2023 CPAP Machine Bro hillary Encounter Details Date Type Department Care Team (Late st Contact Info) Description 07/04/2023 Telephone Access Center, [place] [address] [facility] *DO NOT REMOVE THIS DEPARTMENT* [place] [address] Services, Scheduling [address] [place] [address] Advice (CPAP Machine Broken) Allergies Active Allergy Reactions Criticality Noted Date [...] as of this encounter (statuses as of 07/04/2023) Medications Medication Sig Dispensed Refills Start Date [...] 100 Tab 0 04/15/2020 Active Saline Nasal [place] 0.65 % Nasal Solution (Converse Nasal [place]) Two sprays in each nostril as needed for nasal dryness or congestion 50 mL 2 05/06/2021 Active Hydrocortisone (Perianal) 2.5 % External Cream Administer into the rectum 2 times a day. For up to 1 week 30 g 0 09/06/2021 Active LORazepam 0.5 MG Oral Tablet (Ativan)Indications: PETER (generalized anxiety disorder) Take by mouth 1 Tablet daily as needed for Anxiety. 10 Tablet 0 03/25/2022 Active Probiotic Acidophilus BioBeads Oral Capsule Take [...] the morning. 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 30 Capsule 2 03/08/2023 Active Ondansetron HCl 4 MG Oral Tablet [...] as of this encounter (statuses as of 07/04/2023) Active Problems Problem Noted Date Diagnosed Date [...] as of this encounter (statuses as of 07/04/2023) Resolved Problems Problem Noted Date Diagnosed Date [...] Jose M Seth MD Pharmacy: [facility] 08/09/2013 12/16/2015 Dementia [...] as of this encounter (statuses as of 07/04/2023) Immunizations Name Administration Dates Next Due COVID-19 mRNA, LNP-s, No Pre serve, 2-Dose Series ([employer] Policy [employer]) 02/18/2021,08/10/2020,07/06/2020 COVID-19, MRNA-LNP, 23-24, P F, 30 MCG/0.3 mL, 12 YRS AND ABOVE, IM ([employer]) 04/11/2023 Covid-19, Mrna, Lnp-s, Pf, B ivalent, 30 Mcg, IM, 12 yrs and above (Your Policy Manager) 03/22/2022 Pneumococcal Conjugate Vacc, 13 Valent (Prevnar) [...] encounter Miscellaneous Notes * Telephone Encounter - Keisha Sabillon OSA - 07/04/2023 10:35 AM EST Patient called in and stated that her CPAP machine is not warming up, she cleaned the machine and then it was telling her check plug she unplugged waited and then plugged back in and it is still saying check plug and will not work. She states that with out the machine she is having trouble sleepingwaking up choking. She uses [facility] and would like to have a new machine. She scheduled an appointment for 10.27.[address] Mckeon and placed on the Fast Pass list as well for something sooner. Could she get the script for the New Machine in the mean time because the choking is starting to scare her. Please advise. Thank You. documented in this encounter Plan of Treatment Upcoming Encounters Date Type Department Care Team (Late st Contact Info) Description 07/18/2023 2:10 PM EST Telemedicine Nutrition & Weight Management, [facility] [address] [place] [address] Maria E Cazares RDN 132 [facility] [place] [address] 08/07/2023 3:15 PM EDT [facility] [address] Mendel Macedo MD [address] [facility] [address] [place] [address] 08/14/2023 1:00 PM EDT Laboratory Laboratory [facility] [address] [place] [phone] Park, Lab [place] [address] [place] [address] 08/14/2023 2:00 PM EDT Office Visit Hematology/Oncology [facility] [address] [place] [address] Marietta Salazar CRNP 400 [facility] [place] [address] 2023 1:30 PM EDT Nurse Only Ancillary [facility] [address] [place] [address] Im, Nurse Annual Wellness [facility] [address] [place] [address] 10/11/2023 2:30 PM EDT Imaging Radiology [facility] 132 [facility] [place] [address] 10/11/2023 3:00 PM EDT Imaging Radiology [facility] 132 [employer] [address] 10/27/2023 11:00 AM EDT Office Visit [facility] Disorders Ctr [facility] 132 [facility] [phone] Charmaine Mckeon DO 132 [facility] [place] [address] 12/21/2023 2:40 PM EDT Office Visit General Internal Medicine [facility] [address] [place] [address] Jose M Seth MD [address] [place] [address] [place], [place] [address] Health Maintenance Due Date Last Done Comments [...] and were consensually agreed upon. Care Teams Appointment Coordinator Relationship Specialty Start Date End Date Jose M Seth MD [address] [place] [address] PCP - General Internal Medicine 11/21/11 documented as of this encounter
--- OUTSIDE RECORDS SUMMARY | 2023-12-07 12:21 | External Medical Summary | Summary of Care ---
Author Name Unknown Organization [facility] Address [address] [place] [address] Phone [phone] Care Team Providers Care Assistant Basketball Coach Name Role Phone Jose M Seth MD Primary Care Provider + Reason for Visit * Reason Comments Procedure Port flush Encounter Details Date Type Department Care Team (Late st Contact Info) Description 06/15/2023 2:00 PM EST Immunization/I njection Hematology/Oncology Treatment, [place] 200 [facility] [place] [address] Nurse, Med [address] [place] [address] History of breast cancer* Allergies Active Allergy Reactions Criticality Noted Date [...] as of this encounter (statuses as of 06/15/2023) Medications Medication Sig Dispensed Refills Start Date [...] 100 Tab 0 04/15/2020 Active Saline Nasal [place] 0.65 % Nasal Solution ([place] Nasal [place]) Two sprays in each nostril as needed [...] as of this encounter (statuses as of 06/15/2023) Active Problems Problem Noted Date Diagnosed Date Urge incontinence 05/02/2023 Uncomplicated asthma 11/15/2022 PETER (generalized anxiety disorder) 07/14/2022 Peripheral neuropathy 07/14/2022 History of bipolar disorder 07/14/2022 Dehydration 11/10/2021 History of breast cancer 11/04/2020 Isolated proteinuria 09/16/2020 Chronic diastolic (congestive) heart failure Breast carcinoma, female, left 04/01/2020 Prediabetes 03/06/2020 Gastroesophageal reflux disease without esophagi [...] as of this encounter (statuses as of 06/15/2023) Resolved Problems Problem Noted Date Diagnosed Date Resolved Date Food insecurity 11/07/2022 05/11/2023 Overview: Per [facility] Protocol Bipolar disorder 07/14/2022 07/14/2022 Mood disorder in partial remission 12/21/2021 12/21/2021 Food insecurity 01/04/2021 09/09/2021 Overview: Per [facility] Protocol Pancytopenia 09/16/2020 07/14/2022 Recurrent major depressive d isorder, in partial remission 09/16/2020 08/09/2021 Class 2 severe obesity due t o excess calories with serious comorbidity and body mass index (BMI) of 37.0 to 37.9 in adult 06/25/2020 3 Depressive disorder 09/03/2019 09/11/19 20 Body mass [...] 10/15/13 PCP: Jose M Seth MD Pharmacy: [facility] 08/09/2013 12/16/2015 Dementia 07/19/2013 2017 Encounter for [...] as of this encounter (statuses as of 06/15/2023) Immunizations Name Administration Dates Next Due COVID-19 mRNA, LNP-s, No Pre serve, 2-Dose Series (Ykone) 02/18/2021,08/10/2020,07/06/2020 COVID-19, MRNA-LNP, 23-24, P F, 30 [...] Date Recorded PHQ Adult Total Score 0 05/11/2023 Hunger Vital Sign Answer Date Recorded Within [...] as of this encounter Nursing Notes * Pamela Keating, RN - 06/15/2023 2:20 PM EST Chair 6 VAD (Venous Access Device) accessed with #20G 3/4" without difficulty. VAD flushed with 10 ml NSS and Heparin 5 ml (100 units/ml). Pierce needle removed intact. Patient tolerated treatment well and was discharged in stable condition. No coverage needed today. documented in this encounter Plan of Treatment Upcoming Encounters Date Type Department Care Team (Late st Contact Info) Description 06/21/2023 3:20 PM EST Office Visit General Internal Medicine [facility] 200 [facility] [place] [address] Jose M Seth MD 200 [facility] [place] [address] 07/18/2023 2:10 PM EST Telemedicine Nutrition & Weight Management, [facility] 132 [facility] [place] [address] Maria E Cazares RDN [address] [place] [address] 08/07/2023 3:15 PM EDT Office Visit Urology, [facility] 132 [facility] [place] [address] Mendel Macedo MD 27 [facility] [address] [place] [address] 08/14/2023 1:00 PM EDT Laboratory Laboratory [facility] [address] [place] [phone] [place], [facility] [address] [facility] [place] [address] 08/14/2023 2:00 PM EDT Office Visit Hematology/Oncology [facility] [address] [place] [address] Marietta Salazar, JA [address] [place] [address] 10/11/2023 2:30 PM EDT Imaging Rad[facility] 132 [place] [address] 10/11/2023 3:00 PM EDT Imaging Radiology [facility] [address] [place] [address] Health Maintenance Due Date Last Done Comments COLONOSCOPY-EVERY 5 YRS AGES 18-100 04/13/2021 04/13/2016, 09/08/2010 HbA1c 07/13/2023 07/13/2022, 08/28, 02/15/2021, Additional history exists Depression Screening 05/11/2024 05/11/2023 DXA Scan 09/20/2024 09/20/2021, 09/27, 10/23/2013, Additional history exists DTaP,Tdap,and Td Vaccines (3 - Td or Tdap) 03/07/2032 03/07/2022, 08/12/2010 Pneumococcal Vaccine: 65+ Years Completed 06/30/2014, 08/12/2010 Zoster Vaccines Completed 06/18/2019, 02/13/2018 Diabetic Foot Exam Discontinued 04/15/2020 Diabetic Eye Exam Discontinued 05/03/2022, , 02/12/2020, Additional history exists Albumin/Creatinine Ratio Discontinued 023, [...] encounter Visit Diagnoses Diagnosis History of breast cancer- Primary Personal history of malignant neoplasm of breast documented in this encounter Administered Medications Active Administered Medications - up to 3 most recent administrations Medication Order MAR Action Action Date Dose Rate Site hEParin 100 UNIT/ML Lock Flush inj 500 Units 500 Units (5 mL), IV Lock, PRN Other, IV Flush, Starting on Bria 06/15/23 at 1407, Until Mon06/16/23 at 1406, For 24 hours, Do not flush if lock, PICC, or central line not in place; IV infusing or unable to flush. Given 06/15/2023 2:12 PM EST 500 Units sodium chloride 0.9 % flush central line 10 mL 10 mL, IV Push, PRN Other, IV Flush, Starting on Bria 06/15/23 at 1407, Until 06/16/23 at 1406, For 24 hours, Do not flush if lock, PICC, or central line not in place; IV infusing or unable to flush. Given 06/15/2023 2:12 PM EST 10 mL documented in this encounter Advance Directives Latest Code Status on File Code Status Date Activated Date Inactivated Comments Full Code 09/24/2012 8:15 PM 10/02/2012 7:35 PM This o rder reflects the patients wishes and were consensually agreed upon. Care Teams Assistant Basketball Coach Relationship Specialty Start Date End Date Jose M Seth MD 200 [facility] [place] [place] [address] PCP - General Internal Medicine 11/21/11 documented as of this encounter
--- OUTSIDE RECORDS SUMMARY | 2023-12-07 12:21 | External Medical Summary | Summary of Care ---
Author Name Unknown Organization [facility] Address [address] [place] [address] Phone [phone] Care Team Providers Care Paver Installer Name Role Phone Jose M Seth MD Primary Care Provider + Reason for Visit * Reason Onset Date Comments Fax 06/15/2023 Encounter Details Date Type Department Care Team (Late st Contact Info) Description 06/15/2023 Telephone General Internal Medicine [facility] [address] [place] [address] Jose M Seth MD 200 [place] [address] Fax Allergies Active Allergy Reactions Criticality Noted Date [...] as of this encounter (statuses as of 06/21/2023) Medications Medication Sig Dispensed Refills Start Date [...] 100 Tab 0 04/15/2020 Active Saline Nasal [place] 0.65 % Nasal Solution ([place] Nasal [place]) Two sprays in each nostril as needed [...] as of this encounter (statuses as of 06/21/2023) Active Problems Problem Noted Date Diagnosed Date [...] as of this encounter (statuses as of 06/21/2023) Resolved Problems Problem Noted Date Diagnosed Date [...] 10/15/13 PCP: Jose M Seth MD [facility] 08/09/2013 12/16/2015 Dementia 07/19/2013 2017 Encounter [...] as of this encounter (statuses as of 06/21/2023) Immunizations Name Administration Dates Next Due COVID-19 mRNA, LNP-s, No Pre serve, 2-Dose Series ([employer]) 02/18/2021,08/10/2020,07/06/2020 COVID-19, MRNA-LNP, 23-24, P F, 30 [...] Encounter - Jose M Seth MD - 06/21/2023 1:46 PM EST Signed and placed in bin today * Telephone Encounter - Antonia Jones OSA - 06/15/2023 9:11 AM EST Received a call asking if fax was received by office. Name/Company sending fax: [email or web address] What fax is pertaining to: RX request for wipes Date(s) they sent request: 06/12/2023 Verified fax number they are sending to is correct (Y or N): Y Callback Number for the clinic to call to verified if fax was received: [phone] Please be sure to have diagnosis code and doctor signiture documented in this encounter Plan of Treatment Upcoming Encounters Date Type Department Care Team (Late st Contact Info) Description 06/21/2023 3:20 PM EST Office Visit General Internal Medicine [facility] [address] [place] [address] [address] Jose M Seth MD [address] [address] [address] 07/18/2023 2:10 PM EST Telemedicine Nutrition & Weight Management, [facility] [address] [facility] [place] [address] Maria E Cazares, DEEDEEN 132 [facility] [place] [address] 08/07/2023 3:15 PM EDT Office Visit Urology, [facility] 132 [facility] [place] [address] Mendel Macedo MD [address] [address] [place] [address] 08/14/2023 1:00 PM EDT Laboratory Laboratory [facility] [address] [place] [id number] [place], [facility] [address] [place] [address] 08/14/2023 2:00 PM EDT Office Visit Hematology/Oncology [facility] [address] [place] [address] Marietta Salazar, WOOD PATTERNMAKER APPRENTICE [address] [facility] [place] [address] 10/11/2023 2:30 PM EDT Imaging Radiology [address] [facility] [place] [address] 10/11/2023 3:00 PM EDT Imaging Radiology [facility] [address] [facility] [place] [address] Health Maintenance Due Date Last Done Comments COLONOSCOPY-EVERY 5 YRS AGES 18-100 04/13/2021 04/13/2016, 09/08/2010 HbA1c 07/13/2023 07/13/2022, 08/28, 02/15/2021, Additional history exists Depression Screening 06/16/2024 06/16/2023 DXA Scan 09/20/2024 09/20/2021, 09/27, 10/23/2013, Additional [...] and were consensually agreed upon. Care Teams Paver Installer Relationship Specialty Start Date End Date Jose M Seth MD 200 [facility] [place] [address] PCP - General Internal Medicine 11/21/11 documented as of this encounter
--- OUTSIDE RECORDS SUMMARY | 2023-12-07 12:21 | External Medical Summary | Summary of Care ---
Author Name Unknown Organization [facility] Address [address] [place] [address] Phone [phone] Care Team Providers Care Eye Care Professional Name Role Phone Jose M Seth MD Primary Care Provider + Reason for Visit * Reason Comments Follow Up GERD * Evaluate & Treat - Unlimited Visits (Within 30 days (routine)) - Authorized Specialty Diagnoses / Procedures Referred By Nelia noble Referred To Contact Gastroenterology Diagnoses Screen for colon cancer Jose M Seth MD [address] [place] [address] Referral ID Status Reason Start Date Expiration Date Visits Requested Visits Authorized [id number] Authorized Specialty Services Required 11/15/[phone] Encounter Details Date Type Department Care Team (Late st Contact Info) Description 06/14/2023 2:30 PM EST Telemedicine Gastroenterology, [facility] [address] [place] [address] Marii Veronica CRNP [address] [place] [address] Colonoscopy refused* Allergies Active Allergy Reactions Criticality Noted Date [...] as of this encounter (statuses as of 06/14/2023) Medications Medication Sig Dispensed Refills Start Date [...] 100 Tab 0 04/15/2020 Active Saline Nasal [place] 0.65 % Nasal Solution ([place] Nasal [place]) Two sprays in each nostril as needed [...] as of this encounter (statuses as of 06/14/2023) Active Problems Problem Noted Date Diagnosed Date [...] as of this encounter (statuses as of 06/14/2023) Resolved Problems Problem Noted Date Diagnosed Date [...] adult 06/25/2020 3 Depressive disorder 09/03/2019 09/11/19 Body mass index [...] Jose M Seth MD Pharmacy: [facility] 08/09/2013 12/16/2015 Dementia 07/19/2013 [...] as of this encounter (statuses as of 06/14/2023) Immunizations Name Administration Dates Next Due COVID-19 mRNA, LNP-s, No Pre serve, 2-Dose Series (MedRunner) 02/18/2021,08/10/2020,07/06/2020 COVID-19, MRNA-LNP, 23-24, P F, 30 MCG/0.3 mL, 12 YRS AND ABOVE, IM ([facility]) 04/11/2023 Covid-19, Mrna, Lnp-s, Pf, B ivalent, 30 Mcg, IM, 12 yrs and above (MedRunner) 03/22/2022 Pneumococcal Conjugate Vacc, 13 Valent (Prevnar) [...] as of this encounter Progress Notes * Marii Veronica CRNP - 06/14/2023 2:30 PM EST DATE OF SERVICE: 06/14/2023 REFERRING PHYSICIAN: Jose M Seth MD Patient location: HOME. I was in a hospital or clinic location. After connecting through [employer],patient was verified with two unique identifiers. 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 Methods to assure confidentiality were taken. Patient acknowledged consent and understanding of pr ivacy and security of the Telemedicine visit. The patient agreed to participate. CC: discuss colonoscopy Telemedicine Visit 06/14/2023: notes her heartburn and indigesting has been worse of recent. She also feels a pressure near her epigastric area. Seems prominent after eating lunch and dinner. No nausea. No vomiting. Tolerating PO intake well Does suggest she continues to have issue swallowing large pills - yet to try with a pudding/applesauce/yogurt. Bowels moving okay. No black or bloody stools. No constipation. No diarrhea. Stools are soft, semi-formed. Weight stable, maybe some gain over the holidays. No fever, chills, CP, SOB. PET 2019: 1. Hypermetabolic left breast soft tissue mass compatible with biopsy- proven left breast invasive carcinoma. No evidence of axillary involvement. 2. Focal hypermetabolic activity adjacent to a loop of right lower quadrant small bowel is indeterminate with limited evaluation due to misregistration and bowel underdistention. This is unlikely to represent metastatic disease given no other evidence of distant metastasis is seen. Recommend further evaluation as clinically indicated. CTAP 2019: No acute CT finding to explain patient's symptoms. EGD 2021: Normal esophagus. - Normal stomach. - Normal examined duodenum. - No specimens collected. EGD 2015: unremarkable Colonoscopy 2015: unremarkable Colonoscopy 2010: Perianal skin tags. Diminutive polyp Family history of GI malignancy: none Past Medical History: Diagnosis Date Arthritis of [...] OPEN performed by Vijaya Samano MD at [facility] CARPAL TUNNEL SURGERY 1996 left and right CATARACT SURGERY,COMPLEX Bilateral 10/2014 CHEMOTHERAPY 04/20/2020 completed 10/28/2020 neoadjuvant chemotherapy Adrianmycin & Cytoxan. Followed by 11 of 12 cycles of Taxol COLONOSCOPY W/ BIOPSY (RECTUM) 09/08/2010 polyp x1 , skin tags, path repeat in 5 years COLONOSCOPY, DIAGNOSTIC (RECTUM) 04/13/2016 normal/[facility] EGD, FLEXIBLE, DIAGNOSTIC 04/13/2016 acid reflux/[facility] EGD, FLEXIBLE, DIAGNOSTIC 02/24/2022 normal / ESOPHAGOGASTRODUODENOSCOPY (EGD), FLEXIBLE, TRANSORAL, DIAGNOSTIC performed by Rober Redding MD at [facility] IDENTIFY SENTINEL NODE, RADIOACTIVE TRACER Left 12/30/2020 INJECTION PROCEDURE FOR IDENTIFICATION SENTINEL NODE performed by Vijaya Samano MD at [facility] INFORMATION 11/13/2012 11/13/2012 insertion of A-port - left shoulder [facility] Dr. Vijaya Samano MASTECTOMY, PARTIAL Left 12/30/2020 MASTECTOMY PARTIAL performed by Vijaya Samano MD at [facility] PROCEDURE - GENERAL PROCEDURE - GENERAL N/A 04/08/2020 iNSERTION OF VENOUS ACCESS(CHEST) RADIATION THERAPY Left 04/13/2021 6640 cGy to left breast, supraclavicular area, and axilla REMOVE GALLBLADDER 1985 REPAIR INITIAL INGUINAL HERNIA REDUCIBLE AGE 5 OR MORE 2006 TOTAL ABD HYSTERECTOMY W/WO REMOVAL OF TUBE(S) 09/24/2012 TOTAL ABDOMINAL HYSTERECTOMY WITH OR WITHOUT TUBES AND OVARIES performed by Jacey Jewell MD at [facility] TOTAL HIP REPLACEMENT & PROSTHESIS Left 09/02/2016 TREAT ECTOPIC , TUBE/OVARY 1963 US GUIDED BREAST BIOPSY LEFT Left 02/26/2020 Axillary biopsy- benign US GUIDED BREAST BIOPSY 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 Plasencia Social History Tobacco Use Smoking status: Never Smokeless tobacco: Never Tobacco comments: No passive smoke exposures Vaping Use Vaping Use: Never used Substance Use Topics Alcohol use: No Drug use: No Review of patient's allergies indicates: Allergen Reactions [...] Current Outpatient Medications Medication Sig Dispense Refill LOPERAMIDE HCL 2 MG PO CAPS 1 [...] hours as needed. 100 Tab0 Saline Nasal [place] 0.65 % Nasal Solution ([place] Nasal [place]) Two sprays in each nostril as needed for nasal dryness or congestion 50 mL 2 Hydrocortisone (Perianal) 2.5 % External Cream Administer into the rectum 2 times a day. For up to 1 week 30 g 0 LORazepam 0.5 MG Oral Tablet (Ativan) Take by mouth 1 Tablet daily as needed for Anxiety. 10 Tablet0 Diclofenac Sodium 1 % External Gel (Voltaren) [...] nostril in the morning. 16 g 3 Divalproex Sodium ER 250 MG Oral Tablet Extended Release 24 Hour (Depakote ER) Take 3 Tablets by mouth every night at bedtime. 90 Tablet 2 FLUoxetine HCl 20 MG Oral Capsule (PROzac) Take 1 Capsule by mouth at bedtime. 30 Capsule 2 Ondansetron HCl 4 MG Oral Tablet (Zofran) Take 1 Tablet by mouth every 12 hours as needed for Nausea. 30 Tablet 0 Atorvastatin Calcium 20 MG Oral Tablet (Lipitor) TAKE 1 TABLET BY MOUTH IN THE MORNING 90 Tablet 3 PROCARE ADULT BRIEFS X-LARGE MISC use as needed for urinary incontinence 2 Box 11 ferrous sulfate (FEOSOL) 325 (65 FE) MG Tablet Take 1 Tablet by mouth every other day. (Patient nottaking: Reported on 03/24/2023) Incontinence Supply Disposable (BAN SKIN-CARING WASHCLOTHS) MISC Use as needed for incontinence. Dispense 2 tubs monthly DX R32 2 Each 5 Probiotic Acidophilus BioBeads Oral Capsule Take 1 Capsule by mouth in the morning and 1 Capsule atnoon and 1 Capsule in the evening. Take with meals. (Patient not taking: Reported on 10/06/2022) COVID-19 mRNA Vaccine 12 years and above MedRunner 30 MCG/0.3 ML IM SUSP Inject into a large muscle. 0.3 mL 0 Premarin 0.625 MG/GM Vaginal Cream (Estrogens Conjugated) Apply topically to affected area daily. As directed. (Patient not taking: Reported on 06/14/2023) 30 g 4 No current facility-administered medications for this visit. REVIEW OF SYSTEMS: All other findings negative except as noted in HPI. EXAM: GENERAL: Appears stated age, well developed, well nourished in no acute distress. SKIN: No apparent rashes, jaundice, ecchymosis, oral lesions. HEENT: Neck supple. Normocephalic, sclera non-icteric LUNGS: No respiratory distress or apparent accessory muscles used. Normal chest excursion. No audible wheezing NEURO: No lateralizing findings. Cranial nerves IV, V, , VII, XI and XII in tact. Motor grossly normal. PSYCHOSOCIAL: Appropriate affect, normal memory recall, DIAGNOSTIC TEST: to deferred ASSESSMENT AND PLAN: 77 year old female with GERD, referred by PCP to discuss colonoscopy - Discussed colonoscopy - Colonoscopy refused - She is not interested in the test its-self or the prep - Suggests if she had concerning symptoms she would reconsider that test - Can continue PPI as ordered - ED for emergencies - Please call with any questions or concerns RETURN TO CLINIC: 9 month I spent a total of 20 minutes on the date of service in review of patient's record, and previously obtained information in person and appropriate medical visit, discussion and education of plan, withpatient and/or caregiver, placing orders for tests/referral/procedures as medically necessary and documentation of pertinent clinical information in patient's medical records for their visit today. JA Singh 06/14/2023 2:44 PM documented in this encounter Nursing Notes * Monica Norton RN - 06/14/2023 1:58 PM EST Chief Complaint Patient presents with Follow Up GERD Pt states she has epigastric pain and feels the area is larger than it was Can't swallow large capsule pills but no trouble with food. Pt identified by name and date of . Verified pt not currently driving. Verified pt currently in the state [facility]. Chart updated with patient after review of social history and allergies. Med reconciliation completed. Pt verbalizes that they have received their telehealth link via email and planto utilize an electronic device/set up with video capability and has appropriate/updated software for video visit. Pt walked through the steps of connecting for video visit and verbalizes an understanding of how to enter the virtual waiting room. Offers no further questions and will await appointment time for provider connection. Will contact our office should they have any issues or questions inregards to their visit. documented in this encounter Plan of Treatment Upcoming Encounters Date Type Department Care Team (Late st Contact Info) Description 06/15/2023 2:00 PM EST Immunization/Injection Hematology/Oncology Treatment, [place] [address] [place], [place] [address] Nurse, Med [address] [place] [address] 06/21/2023 3:20 PM EST Office Visit General Internal Medicine [facility] [place] [address] [place] [address] Jose M Seth MD 200 [facility] [place] [address] 07/18/2023 2:10 PM EST Telemedicine Nutrition & Weight Management, [facility] [address] Maria E Cazares RDN 132 [place] [address] 08/07/2023 3:15 PM EDT Office Visit Urology, [facility] [address] [place] [address] Mendel Macedo MD [address] [place] [address] [place] [address] 08/14/2023 1:00 PM EDT Laboratory Laboratory [facility] [address] [facility] [place] [phone] [place], [facility] [address] [facility] [place] [address] 08/14/2023 2:00 PM EDT Office Visit Hematology/Oncology [facility] [address] [place] [address] Marietta Salazar CRNP [address] [facility] [place] [address] 10/11/2023 2:30 PM EDT Imaging Radiology [facility] [address] [employer] [place] [address] 10/11/2023 3:00 PM EDT Imaging Radiology [facility] [address] [place] [address] Scheduled Referrals Name Type Priority Associated Diagnoses Order Schedule GASTROENTEROLOGY REFERRAL OP Referral Within 30 days (routine) Screen for colon cancer Ordered: 11/15/2022 Health Maintenance Due Date Last Done Comments [...] as of this encounter Visit Diagnoses Diagnosis Colonoscopy refused- Primary Surgical or other procedure not carried out because of patient's decision documented in this encounter Advance Directives Latest Code Status on File Code Status Date Activated Date Inactivated Comments Full Code 09/24/2012 8:15 PM 10/02/2012 7:35 PM This o rder reflects the patients wishes and were consensually agreed upon. Care Teams Eye Care Professional Relationship Specialty Start Date End Date Jose M Seth MD 200 [place] [address] PCP - General Internal Medicine 11/21/11 documented as of this encounter
--- OUTSIDE RECORDS SUMMARY | 2023-12-07 12:21 | External Medical Summary | Summary of Care ---
Author Name Unknown Organization [facility] Address [address] [place] [address] Phone [phone] Care Team Providers Care Silk Finisher Name Role Phone Jose M Seth MD Primary Care Provider + Reason for Visit * Reason Comments Follow Up 6 month follow up. Zo henderson presents with concerns for why she was told to have a colonoscopy. Patient would like to discuss keeping her port, states she was to have it removed in July, but she would like to keep it. Encounter Details Date Type Department Care Team (Late Contact Info) Description 06/21/2023 3:20 PM EST Office Visit General Internal Medicine 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 For up to 1 week 30 g 0 2 Active LORazepam 0.5 MG Oral Tablet (Ativan)Indications :PETER (generalized anxiety disorder) Take by mouth 1 Tablet daily as needed for Anxiety. 10 Tablet 0 2 Active Probiotic Acidophilus BioBeads Oral [...] the morning. 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 30 Capsule 2 3 Active Ondansetron HCl 4 MG Oral [...] THE MORNING 90 Tablet 3 4 Active Cephalexin 500 MG Oral CapsuleIndications: Cellulitis of left thumb,Accident caused by hot liquids and vapors, including steam, initial encounter Take 1 Capsule by mouth in the morning and 1 Capsule before bedtime. Do all this for 7 days. (has been on med in past). 14 Capsule 0 3 06/21/19 Discontinu ed(Patient preference /discontin uation) documented as of this encounter (statuses as [...] PSG -- AHI 10.7, <89% [address] [facility] Returned machine Jun 2013 Nocturnal hypoxemia 06/18/2012 Overview: [address] [facility] Chronic knee pain History of wound [...] Jose M Seth MD Pharmacy: [facility] 08/09/2013 12/16/2015 Dementia 07/19/2013 2017 [...] mRNA, LNP-s, No Pre serve, 2-Dose Series ([employer]) 02/18/2021,08/10/2020,07/06/2020 COVID-19, MRNA-LNP, 23-24, P F, 30 MCG/0.3 mL, 12 YRS AND ABOVE, IM ([employer] 04/11/2023 Covid-19, Mrna, Lnp-s, Pf, B [...] Sign Reading Time Taken Comments Blood Pressure 98/52 06/21/2023 3:28 PM EST Pulse 77 06/21/2023 3:28 PM EST Temperature 36.9 C (98.5 F) 06/21/2023 3:28 PM ES T Respiratory Rate - - Oxygen Saturation 93% 06/21/2023 3:28 PM EST Inhaled Oxygen Concentration - - Weight 87.9 kg (193 lb 11.2 oz) 06/21/2023 3:28 PM EST Height 154.9 cm (5' 1") 06/21/2023 3:28 PM EST Body Mass Index 36.6 06/21/2023 3:28 PM EST documented in this encounter Progress Notes * Jose M Seth MD - 06/21/2023 3:52 PM EST Chief Complaint Patient presents with Follow Up 6 month follow up. Patient presents with concerns for why she was told to have a colonoscopy. Patient would like to discuss keeping her port, states she was to have it removed in July, but she wouldlike to keep it. SUBJECTIVE: Kathy Mccoy is a 77 year old female with PMH as below who presents for follow up ho breast cancer, pre-DM,neuropathy. No cp, sob, [place]. Mood is good. She decided doesn't want c-scope further, doesn't want prep. No n/v/d. Using walker. Seeing heme oncology for h/o breast cancer, still has port in, will discuss with them in July about removal. 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 100 Tab0 Saline Nasal [place] 0.65 % Nasal Solution (Berks Nasal [place]) Two sprays in each nostril as needed [...] MOUTH IN THE MORNING 90 Tablet 3 LOPERAMIDE HCL 2 MG PO CAPS 1 CAPSULE TWICE DAILY NEEDED ferrous sulfate (FEOSOL) 325 (65 FE) MG Tablet Take 1 Tablet by mouth every other day. (Patient nottaking: Reported on 03/24/2023) Probiotic Acidophilus BioBeads Oral Capsule Take 1 [...] Zyrtec [Cetirizine Hcl] Problems breathing, overly dry Health Maintenance Due Topic Date Due HbA1c 07/13/2023 ROS: CONSTITUTIONAL: No fevers, sweats, or chills EYE: No recent significant change in vision and No eye pain, redness, discharge EARS: No ear pain, No drainage, No tinnitus or vertigo, and No recent change in hearing PULMONARY: No cough, sputum, or hemoptysis, No wheezing, No rales, No shortness of breath, and No recent change in breathing CARDIOVASCULAR: No chest pain, No shortness of breath, No dyspnea on exertion, No orthopnea, No paroxysmal nocturnal dyspnea, No edema, No palpitations, and No syncope GASTROINTESTINAL: No abdominal pain, No change in bowel habits, No significant heartburn, No significant change in appetite, No nausea, vomiting, diarrhea, or constipation, No hematemesis, No blood in stools or black tarry stools, No abdominal bloating or early satiety, and No dysphagia ALL OTHER SYSTEMS NEGATIVE I reviewed social, PMH, PSH, and family history and updated where needed. 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 Daughter is comptometer operator. Another daughter in [place]. Social Determinants of Health Financial Resource Strain: Not on file Food Insecurity: No Food Insecurity (05/11/2023) Hunger Vital Sign Worried About Running Out of Food in the Last Year: Never true Ran Out of Food in the Last Year: Never true Transportation Needs: Not on file Physical Activity: Not on file Stress: Not on file Social Connections: Not on file Intimate Partner Violence: Not on file Housing Stability: Not on file Past Medical History: Diagnosis Date Arthritis of [...] in 5 years COLONOSCOPY, DIAGNOSTIC (RECTUM) 04/13/2016 normal/[facility] EGD, FLEXIBLE, DIAGNOSTIC 04/13/2016 acid reflux/[facility] EGD, FLEXIBLE, DIAGNOSTIC 02/24/2022 normal / ESOPHAGOGASTRODUODENOSCOPY (EGD), FLEXIBLE, TRANSORAL, DIAGNOSTIC performed by Rober Redding MD at ENDOSCOPY [facility] IDENTIFY SENTINEL NODE, RADIOACTIVE TRACER Left 12/30/2020 INJECTION PROCEDURE FOR IDENTIFICATION SENTINEL NODE performed by Vijaya Samano MD at [facility] INFORMATION 11/13/2012 11/13/2012 insertion of A-port - left shoulder [facility] Dr. Vijaya Samano MASTECTOMY, PARTIAL [...] MD at [facility] TOTAL HIP REPLACEMENT & PROSTHESIS Left 09/02/2016 [...] hx of AMD retinal detachments or blindness OBJECTIVE: PHYSICAL EXAM: BP 98/52 | Pulse 77 | Temp 36.9 C (98.5 F) | Ht 1.549 m (5' 1") | Wt 87.9 kg (193 lb 11.2 oz) |SpO2 93% | BMI 36.60 kg/m | BSA 1.94 m General: alert, healthy, and no distress Head: Normocephalic, No masses, lesions, tenderness or abnormalities Eye Exam: conjunctiva are pink and non-injected, sclera clear Heart: regular rate & rhythm, II/ HS murmur, no gallops, PMI non-displaced, S- 1 normal, and S-2 normal Lungs: chest symmetric with normal AP diameter, normal respiratory rate and rhythm, lungs clear to auscultation Psych: normal affect, no flight of ideas or tangential thought, good eye contact, no pressured speech Neuro stands on own, walks under own power ASSESSMENT: E78.2 Mixed hyperlipidemia (primary encounter diagnosis) G62.0,T45.1X5A Chemotherapy-induced neuropathy (HCC) J45.20 Mild intermittent asthma without complication I50.32 Chronic diastolic (congestive) heart failure (HCC) K21.9 Gastroesophageal reflux disease without esophagitis F39 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) R73.03 Prediabetes F41.1 PETER (generalized anxiety disorder) Z85.3 History of breast cancer Z85.42 History of endometrial cancer Z86.79 History of hypertension Z79.899 Encounter for long-term (current) use of medications Z87.448 H/O hematuria PLAN: Mixed hyperlipidemia (Primary) - COMPREHENSIVE METABOLIC PANEL; Future; Expected date: 06/21/2023 - LIPID PANEL WITH DIRECT LDL IF TG IS HIGH; Future; Expected date: 06/21/2023 Cont atorvastatin Labs soon Chemotherapy-induced neuropathy (HCC) Cont gabapentin Mild intermittent asthma without complication Seems controlled Chronic diastolic (congestive) heart failure (HCC) Euvolemic Gastroesophageal reflux disease without esophagitis Cont Pantoprazole 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) Cont fluoxetine Prediabetes - HEMOGLOBIN A1C; Future; Expected date: 06/21/2023 Recheck PETER (generalized anxiety disorder) Seems stable History of breast cancer Sees oncology Discussed reasoning for port removal, she will discuss with them History of endometrial cancer As above History of hypertension Controlled Encounter for long-term (current) use of medications - VITAMIN B12; Future; Expected date: 06/21/2023 - MAGNESIUM; Future; Expected date: 06/21/2023 H/O hematuria - URINALYSIS WITH MICROSCOPIC EXAM; Future; Expected date: 06/21/2023 She mentions may have seen blood in urine, but not 100% certain,will check urine, will let me know if symptoms return Follow Up: Return in about 6 months (around 12/20/2023), or if symptoms worsen or fail to improve, for Fasting Labs Soon. | For: Fasting Labs Soon Discussed c-scope, declines for now, removed from hm Jose M Seth MD documented in this encounter Nursing Notes * Clint Vieira CMA - 06/21/2023 3:22 PM EST Chief Complaint Patient presents with Follow Up 6 month follow up. Patient presents with concerns for why she was told to have a colonoscopy. Patient would like to discuss keeping her port, states she was to have it removed in July, but she wouldlike to keep it. documented in this encounter Plan of Treatment Upcoming Encounters Date Type Department Care Team (Late st Contact Info) Description 07/18/2023 2:10 PM EST Telemedicine Nutrition & Weight Management, [facility] [address] [facility] [place] [address] Maria E Cazares RDN [address] [place] [address] 08/07/2023 3:15 PM EDT Office Visit Urology, [facility] [address] [place] [address] Mendel Macedo MD [address] [address] [address] [place] [id number] 08/14/2023 1:00 PM EDT Laboratory Laboratory [facility] [address] [place] [phone] [place], Lab [address] [place] [address] 08/14/2023 2:00 PM EDT Office Visit Hematology/Oncology [facility] [place] 200 [facility] [place] [address] Marietta Salazar CRNP [address] [facility] [address] [place] [address] 2023 1:30 PM EDT Nurse Only Ancillary [facility] 200 [facility] [place] [address] Im, Nurse Annual Wellness [address] [place] [address] 10/11/2023 2:30 PM EDT Imaging Radiology [facility] [address] [address] 10/11/2023 3:00 PM EDT Imaging Radiology [facility] 132 [place] [address] 12/21/2023 2:40 PM EDT Office Visit General Internal Medicine [facility] [address] [place] [address] Jose M Seth MD 200 [facility] [place] [address] Scheduled Orders Name Type Priority Associated Diagnoses Orde r Schedule COMPREHENSIVE METABOLIC PANEL Lab Routine Mixed hyperlipidemia Expected: 06/21/2023 (Approximate), Expires: 06/20/2024 LIPID PANEL WITH DIRECT LDL IF TG IS HIGH Lab Routine Mixed hyperlipidemia Expected: 06/21/2023, Expires: 06/21/2024 HEMOGLOBIN A1C Lab Routine Prediabetes Expected: 06/21/2023 (Approximate), Expires: 06/20/2024 VITAMIN B12 Lab Routine Encounter for long-term (current) use of medications Expected: 06/21/2023 (Approximate), Expires: 06/20/2024 MAGNESIUM Lab Routine Encounter for long-term (current) use of medications Expected: 06/21/2023 (Approximate), Expires: 06/20/2024 URINALYSIS WITH MICROSCOPIC EXAM Lab Routine H/O hematuria Expected: 06/21/2023 (Approximate), Expires: 06/20/2024 25-HYDROXY VITAMIN D Lab Routine Encounter for long-term (current) use of medications Expected: 06/21/2023 (Approximate), Expires: 06/20/2024 Health Maintenance Due Date Last Done Comments [...] as of this encounter Visit Diagnoses Diagnosis Mixed hyperlipidemia- Primary Chemotherapy-induced neuropathy (HCC) Polyneuropathy due to drugs Mild intermittent asthma without complication Unspecified asthma Chronic diastolic (congestive) heart failure (HCC) Gastroesophageal reflux disease without esophagitis Esophageal reflux 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) Other specified episodic mood disorder Prediabetes Other abnormal glucose PETER (generalized anxiety disorder) Generalized anxiety disorder History of breast cancer Personal history of malignant neoplasm of breast History of endometrial cancer Personal history of malignant neoplasm of other parts of uterus History of hypertension Personal history of other diseases of circulatory system Encounter for long-term (current) use of medications Encounter for long-term (current) use of other medications H/O hematuria Personal history of other disorder of urinary system documented in this encounter Advance Directives Latest Code Status on File Code Status Date Activated Date Inactivated Comments Full Code 09/24/2012 8:15 PM 10/02/2012 7:35 PM This o rder reflects the patients wishes and were consensually agreed upon. Care Teams Silk Finisher Relationship Specialty Start Date End Date Jose M Seth MD 200 [facility] [place] [address] PCP - General Internal Medicine 11/21/11 documented as of this encounter
--- OUTSIDE RECORDS SUMMARY | 2023-12-07 12:21 | External Medical Summary | Summary of Care ---
Author Name Unknown Organization [facility] Address [address] [place] [address] Phone [phone] Care Team Providers Care Procurement Manager Name Role Phone Jose M Seth MD Primary Care Provider + Reason for Visit * Reason Onset Date Comments Advice 07/04/2023 CPAP Machine Bro hillary Encounter Details Date Type Department Care Team (Late st Contact Info) Description 07/04/2023 Telephone Access Center, [place] [address] [facility] *DO NOT REMOVE THIS DEPARTMENT* [place] [address] Services, Scheduling [address] [place] [address] Advice (CPAP Machine Broken) Allergies Active Allergy [...] as of this encounter (statuses as of 07/05/2023) Medications Medication Sig Dispensed Refills Start Date [...] 100 Tab 0 04/15/2020 Active Saline Nasal [place] 0.65 % Nasal Solution (Archer Nasal [place]) Two sprays in each nostril as needed [...] as of this encounter (statuses as of 07/05/2023) Active Problems Problem Noted Date Diagnosed Date [...] as of this encounter (statuses as of 07/05/2023) Resolved Problems Problem Noted Date Diagnosed Date [...] M Seth MD Pharmacy: [facility] Foster [facility] 08/09/2013 12/16/2015 Dementia 07/19/2013 2017 Encounter [...] as of this encounter (statuses as of 07/05/2023) Immunizations Name Administration Dates Next Due COVID-19 mRNA, LNP-s, No Pre serve, 2-Dose Series ([employer]) 02/18/2021,08/10/2020,07/06/2020 COVID-19, MRNA-LNP, 23-24, P F, 30 MCG/0.3 mL, 12 YRS AND ABOVE, IM ([employer]) 04/11/2023 Covid-19, Mrna, Lnp-s, Pf, B ivalent, 30 Mcg, IM, 12 yrs and above ([employer]) 03/22/2022 Pneumococcal Conjugate Vacc, 13 Valent (Prevnar) [...] having trouble sleepingwaking up choking. She uses [facility] and would like to have [...] PM EST Telemedicine Nutrition & Weight Management, [facility] [address] [place] [address] Maria E Cazares RDN 132 [facility] [place] [address] 08/07/2023 3:15 PM EDT [facility] [address] [facility] [address] Mendel Macedo MD [address] [facility] [address] [place] [address] 08/14/2023 1:00 PM EDT Laboratory Laboratory [facility] [address] [phone] [place], Lab [facility] [address] [place] [address] 08/14/2023 2:00 PM EDT Office Visit Hematology/Oncology [facility] [address] [place] [address] Marietta Salazar CRNP 400 [facility] [place] [address] 2023 1:30 PM EDT Nurse Only Ancillary [facility] [address] [place] [address] Im, Nurse Annual Wellness [facility] [address] [place] [address] 10/11/2023 2:30 PM EDT Imaging Radiology [facility] [address] [facility] [address] [facility] [place] [address] 10/11/2023 3:00 PM EDT Imaging Radiology [facility] 132 [facility] [address] 10/27/2023 11:00 AM EDT Office Visit [facility] Disorders Ctr [facility] 132 [facility] [place] [phone] Charmaine Mckeon DO 132 [facility] [place] [address] 12/21/2023 2:40 PM EDT Office Visit General Internal Medicine [facility] [address] [place] [address] Jose M Seth MD [address] [place] [address] [place], [place] [address] Health Maintenance Due Date Last Done Comments [...] and were consensually agreed upon. Care Teams Procurement Manager Relationship Specialty Start Date End Date Jose M Seth MD [address] [place] [address] PCP - General Internal Medicine 11/21/11 documented as of this encounter
--- OUTSIDE RECORDS SUMMARY | 2023-12-07 12:21 | External Medical Summary | Summary of Care ---
Author Name Unknown Organization [facility] Address [address] [place] [address] Phone [phone] Care Team Providers Care Licensed Electrician Name Role Phone Jose M Seth MD Primary Care Provider + Reason for Visit * Reason Onset Date Comments Medication Refill 06/16/2023 Encounter Details Date Type Department Care Team (Late st Contact Info) Description 06/16/2023 Refill General Internal Medicine [facility] [address] [facility] [place] [phone] Jose M Seth MD 200 [place] [address] Allergies Active Allergy Reactions Criticality Noted Date [...] as of this encounter (statuses as of 06/16/2023) Medications Medication Sig Dispensed Refills Start Date [...] 100 Tab 0 04/15/2020 Active Saline Nasal [place] 0.65 % Nasal Solution ([place] Nasal [place]) Two sprays in each nostril as needed [...] as of this encounter (statuses as of 06/16/2023) Active Problems Problem Noted Date Diagnosed Date [...] as of this encounter (statuses as of 06/16/2023) Resolved Problems Problem Noted Date Diagnosed Date [...] PCP: Jose M Seth MD [facility] 08/09/2013 12/16/2015 Dementia 07/19/2013 2017 Encounter [...] as of this encounter (statuses as of 06/16/2023) Immunizations Name Administration Dates Next Due COVID-19 mRNA, LNP-s, No Pre serve, 2-Dose Series ([employer]) 02/18/2021,08/10/2020,07/06/2020 COVID-19, MRNA-LNP, 23-24, P F, 30 MCG/0.3 mL, 12 YRS AND ABOVE, IM ([employer]) 04/11/2023 Covid-19, Mrna, Lnp-s, Pf, B ivalent, [...] PM EST Office Visit General Internal Medicine [facility] [address] [address] [address] Jose M Seth MD [address] [address] 07/18/2023 2:10 PM EST Telemedicine Nutrition & Weight Management, [facility] 132 [place] [address] Maria E Cazares RDN 132 [facility] [place] [address] 08/07/2023 3:15 PM EDT Office Visit Urology, [facility] 132 [place] [address] Mendel Macedo MD [address] [place] [address] [place] [address] 08/14/2023 1:00 PM EDT Laboratory Laboratory [facility] [place] [address] [phone] Rosanna Massey [address] [address] 08/14/2023 2:00 PM EDT Office Visit Hematology/Oncology [facility] [address] [address] Marietta Salazar CRNP [address] [place] [address] 10/11/2023 2:30 PM EDT Imaging Radiology [facility] 1st [facility] [place] [address] [facility] [address] 10/11/2023 3:00 PM EDT Imaging Radiology [facility] 132 [place] [address] Health Maintenance Due Date Last Done Comments [...] and were consensually agreed upon. Care Teams Licensed Electrician Relationship Specialty Start Date End Date Jose M Seth MD [address] [place], [place] [phone] PCP - General Internal Medicine 11/21/11 documented as of this encounter
--- OUTSIDE RECORDS SUMMARY | 2023-12-07 12:21 | External Medical Summary | Summary of Care ---
Author Name Unknown Organization [facility] Address [address] [place] [address] Phone [phone] Care Team Providers Care Behavioral Therapist Name Role Phone Jose M Seth MD Primary Care Provider + Encounter Details Date Type Department Care Team (Late st Contact Info) Description 06/26/2023 Orders Only PATIENT PORTAL DO NOT DELETE THIS DEPT USED [place] [id number] Allergies Active Allergy Reactions Criticality Noted Date [...] as of this encounter (statuses as of 06/26/2023) Medications Medication Sig Dispensed Refills Start Date [...] 100 Tab 0 04/15/2020 Active Saline Nasal [place] 0.65 % Nasal Solution ([place] Nasal [place]) Two sprays in each nostril as needed [...] as of this encounter (statuses as of 06/26/2023) Active Problems Problem Noted Date Diagnosed Date [...] as of this encounter (statuses as of 06/26/2023) Resolved Problems Problem Noted Date Diagnosed Date [...] Jose M Seth MD Pharmacy: [facility] 08/09/2013 12/16/2015 Dementia 07/19/2013 2017 Encounter [...] as of this encounter (statuses as of 06/26/2023) Immunizations Name Administration Dates Next Due COVID-19 mRNA, LNP-s, No Pre serve, 2-Dose Series ([employer]) 02/18/2021,08/10/2020,07/06/2020 COVID-19, MRNA-LNP, 23-24, P F, 30 [...] PM EST Telemedicine Nutrition & Weight Management, [facility] [place] [address] Maria E Cazares RDN 132 [facility] [place] [address] 08/07/2023 3:15 PM EDT Office Visit Urology, [facility] 132 [facility] [place] [address] Mendel Macedo MD [address] [address] [place] [address] 08/14/2023 1:00 PM EDT Laboratory Laboratory [facility] [place] [address] [place] [phone] Shilpa Lab [facility] 200 [facility] [place] [address] 08/14/2023 2:00 PM EDT Office Visit Hematology/Oncology [facility] [place] [address] [place] [address] Marietta Salazar CRNP 400 [facility] [place] [address] 2023 1:30 PM EDT Nurse Only Ancillary [facility] [place] 200 [facility] [place] [address] Im, Nurse Annual Wellness [facility] 200 [facility] [place] [address] 10/11/2023 2:30 PM EDT Imaging Radiology [facility] 1st [facility] 132 [facility] [place] [address] 10/11/2023 3:00 PM EDT Imaging Radiology [facility] 132 [facility] [place] [address] 12/21/2023 2:40 PM EDT Office Visit General Internal Medicine [facility] 200 [facility] [place] [address] Jose M Seth MD 200 [facility] [place] [address] Health Maintenance Due Date Last Done Comments [...] and were consensually agreed upon. Care Teams Behavioral Therapist Relationship Specialty Start Date End Date Jose M Seth MD [address] [place] [address] PCP - General Internal Medicine 11/21/11 documented as of this encounter
--- OUTSIDE RECORDS SUMMARY | 2023-12-07 12:21 | External Medical Summary | Summary of Care ---
Author Name Unknown Organization [facility] Address [address] [place] [address] Phone [phone] Care Team Providers Care Orthodontist Small Business Owner Name Role Phone Jose M Seth MD Primary Care Provider + Reason for Visit * Reason Onset Date Comments Advice 07/04/2023 CPAP Machine Bro hillary Encounter Details Date Type Department Care Team (Late st Contact Info) Description 07/04/2023 Telephone Access Center, [place] [address] [facility] *DO NOT REMOVE THIS DEPARTMENT* [place] [address] Services, Scheduling [address] [place] [address] Advice (CPAP Machine Broken) Allergies Active Allergy [...] as of this encounter (statuses as of 07/06/2023) Medications Medication Sig Dispensed Refills Start Date [...] 100 Tab 0 04/15/2020 Active Saline Nasal [place] 0.65 % Nasal Solution ([place] Nasal [place]) Two sprays in each nostril as needed [...] as of this encounter (statuses as of 07/06/2023) Active Problems Problem Noted Date Diagnosed Date [...] as of this encounter (statuses as of 07/06/2023) Resolved Problems Problem Noted Date Diagnosed Date [...] as of this encounter (statuses as of 07/06/2023) Immunizations Name Administration Dates Next Due COVID-19 mRNA, LNP-s, No Pre serve, 2-Dose Series ([employer]) 02/18/2021,08/10/2020,07/06/2020 COVID-19, MRNA-LNP, 23-24, P F, 30 MCG/0.3 mL, 12 YRS AND ABOVE, IM ([facility]) 04/11/2023 Covid-19, Mrna, Lnp-s, Pf, B ivalent, 30 Mcg, IM, 12 yrs and above ([employer]) 03/22/2022 Pneumococcal Conjugate Vacc, 13 Valent (Prevnar) [...] having trouble sleepingwaking up choking. She uses [facility] and would like to have [...] & Weight Management, [facility] [address] [place] [address] Maria E Cazares RDN 132 [facility] [place] [address] 08/07/2023 3:15 PM EDT [facility] [address] Mendel Macedo MD [address] [facility] [address] [place] [address] 08/14/2023 1:00 PM EDT Laboratory Laboratory [facility] [address] [place] [phone] Park, Lab [facility] [address] [place] [address] 08/14/2023 2:00 PM EDT Office Visit Hematology/Oncology [facility] [address] [place] [address] Marietta Salazar CRNP 400 [facility] [place] [address] 2023 1:30 PM EDT Nurse Only Ancillary [facility] [address] [place] [address] Im, Nurse Annual Wellness [facility] [address] [place] [address] 10/11/2023 2:30 PM EDT Imaging Radiology [facility] 1st [facility] [place] [address] 10/11/2023 3:00 PM EDT Imaging Radiology [facility] 132 [facility] [address] 10/27/2023 11:00 AM EDT Office Visit [facility] Disorders Ctr [facility] [place] [phone] Charmaine Mckeon DO 132 [facility] [place] [address] 12/21/2023 2:40 PM EDT Office Visit General Internal Medicine [facility] [address] [place] [address] Jose M Seth MD [address] [place] [address] [place], [place] [address] Health Maintenance Due Date Last Done Comments [...] and were consensually agreed upon. Care Teams Orthodontist Small Business Owner Relationship Specialty Start Date End Date Jose M Seth MD [address] [place] [address] PCP - General Internal Medicine 11/21/11 documented as of this encounter
--- NOTE | 2023-12-07 14:23 | Nephrology Consultation ---
Date of Consultation December 07, 2023 Assessment & Plan (1) Acute hyponatremia: na was slightly low on Admission at 127 and since then got up 129 and then 132 this AM after iv fluids. No longer on NS and I dont think she needs it. urine osm and urine NA+ more consistent with SIADH although got better with NS ( makes it more likely to be volume deficit related). Also her PO intake of Solid food/protein was very low pre admission. So had some combination of SIADH, Volume depletion and Low Solute diet. Can have next labs in AM. Wont change fluid limit for now. Let her renal function and Na settle on its own. (2) Hypomagnesemia: mag low at 1.2. got 1 gm iv already. give another 1 gm. on PPI which can lower mag level. She is on PPI which can also do this. More likely it is nutritional (3) Generalized weakness: Unclear cause . defer to Primary team (4) Chest pain: Unclear cause . defer to Primary team History of Present Illness Reason for Consultation: Hyponatremia Attending Physician: June Hernandez MD History of Present Illness 78/F brought by EMS--for Non specific chest pain and generalized weakness. chest pain located under her left breast which radiated across to her chest into her right shoulder and from her right shoulder down her back. She states that she tried to get up and was lightheaded and very unsteady on her feet. chest pain lasted for a few hours. No pain currently. na was low at 127 on admission and then went up to 129 and then 132. Did get Some NS. Seems she does have h/o intermittent hyponatremia--na 135 . Normal kidney function now but says she had dialysis for Severe ALBERT for few weeks but could not find that in record. ROS--Currently All systems normal. Physical Exam Physical Exam: GENERAL: Comfortable, very chatty and pleasant, no respiratory distress HEENT: Pale palpebral conjunctivae, no ptosis, dry buccal mucosa NECK : Supple, no tenderness CHEST : Clear b/l HEART : RRR, systolic murmur ABDOMEN: Soft, non tender EXtREMITIES : No LE swelling/tenderness NEUROLOGIC : Coherent, no facial asymmetry, no other gross focality Allergies Allergy/AdvReac Type Severity Reaction Status Date / Time adhesive Allergy Intermediate ADHESIVE Verified 12/06/23 18:30 TAPE -- BLISTERS cetirizine Allergy Intermediate SORES IN Verified 12/06/23 18:30 MOUTH, HEAD CONGESTION dicloxacillin Allergy Intermediate MOUTH SORE Verified 12/06/23 18:30 erythromycin base Allergy Intermediate SORES IN Verified 12/06/23 18:30 MOUTH rifampin Allergy Intermediate elevated Verified 12/06/23 18:30 LFT's codeine AdvReac Mild NAUSEA Verified 12/06/23 18:30 doxycycline AdvReac Mild NAUSEA Verified 12/06/23 18:31 morphine AdvReac Mild "MAKES ME Verified 12/06/23 18:31 FEEL LOOPY" tetracycline AdvReac Mild NAUSEA Verified 12/06/23 18:31 NSAIDS (Non-Steroidal AdvReac Due to Verified 12/06/23 18:31 Anti-Inflamma kidney problems tramadol [From [facility]] AdvReac Nausea Verified 12/06/23 18:31 Home Medications Medication Instructions Recorded Confirmed Type Oxygen Home #1 ea 02/28/19 03/03/22 History cholecalciferol (vitamin D3) 25 25 mcg PO QAM 02/28/19 12/06/23 History mcg (1,000 unit) capsule fluoxetine 20 mg capsule 20 mg PO HS 02/28/19 12/06/23 History loperamide 2 mg capsule 2 mg PO .By mouth prn for ana m PRN 02/28/19 12/06/23 History Diarrhea pantoprazole 40 mg tablet,delayed 40 mg PO QAM 02/28/19 12/06/23 History release sodium chloride 0.65 % nasal drops 2 drops intranasal .INSTILL 2 02/28/19 12/06/23 History SPRAY Berta PRN Nasal Congestion atorvastatin 20 mg tablet 20 mg PO QAM 04/07/20 12/06/23 History fexofenadine 180 mg tablet 180 mg PO DAILY PRN ALLERGY RELIEF 04/07/20 12/06/23 History ondansetron HCl 8 mg tablet 8 mg PO Q8H PRN Nausea 04/07/20 12/06/23 History acetaminophen 500 mg tablet 1,000 mg PO Q8H PRN Pain 01/28/21 12/06/23 History (Tylenol Extra Strength) albuterol sulfate 90 mcg/actuation 2 puff inhalation Q4H PRN 01/28/21 12/06/23 History aerosol inhaler Shortness Of Breath Or Wheezing biotin 300 mcg tablet 300 mcg PO DAILY 01/28/21 12/06/23 History gabapentin 300 mg capsule 300 mg PO TID 01/28/21 12/06/23 History lorazepam 0.5 mg tablet 0.5 mg PO DAILY PRN Anxiety 01/28/21 12/06/23 History diclofenac sodium 1 % topical gel 4 g topical QID PRN Pain 12/06/23 12/06/23 History divalproex 250 mg tablet,extended 750 mg PO HS 12/06/23 12/06/23 History release 24 hr fluticasone propionate 50 2 spray intranasal QAM PRN 12/06/23 12/06/23 History mcg/actuation nasal Congestion spray,suspension oxybutynin chloride 15 mg 15 mg PO QAM 12/06/23 12/06/23 History tablet,extended release 24 hr Patient History Medical History Asthma MRSA infection Aortic stenosis MODERATE PER 01/23/20 ECHO. ABRIL 1.1CM2, MG 23 MGUS (monoclonal gammopathy of unknown significance) Arthritis Degenerative disc disease Environmental and seasonal allergies IBS (irritable bowel syndrome) LACTOSE/GLUTEN FREE DIET History of endometrial cancer 2012 SURGERY/CHEMO/RADIATION Anemia Anxiety and depression Restless leg syndrome Hyperlipidemia Sleep apnea CPAP WITH O2 AT 2L HS Hip bursitis, left Incontinence Urge incontinence of urine Urinary urgency JOO (obstructive sleep apnea) Diastolic dysfunction Morbid obesity with BMI of 45.0-49.9, adult ALBERT (acute kidney injury) OCD (obsessive compulsive disorder) GERD (gastroesophageal reflux disease) Bipolar disorder Surgical History H/O umbilical hernia repair History of anesthesia reaction SLOW TO WAKE UP History of esophagogastroduodenoscopy (EGD) History of colonoscopy H/O breast biopsy H/O eye surgery LASER PROCEDURE RT/LEFT History of cataract surgery RT/LEFT S/P ectopic History of left hip replacement History of hysterectomy Hx of cholecystectomy History of carpal tunnel surgery Bilateral Status post total knee replacement, right Family History Mother , in 88yo Cervical cancer Status post cardiac surgery Surgery on "valves" Hypertension Father , 60yo Lung cancer Smoker Brother COPD (chronic obstructive pulmonary disease) Brother Lung cancer Brother Lung cancer Heart disease Defibrillator in place; Sister No problems noted. Sister Asthma Sister No problems noted. Son Muscular dystrophy Son No problems noted. Daughter No problems noted. Daughter No problems noted. Daughter No problems noted. 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 renal function normal. hgb low 8.8 mag low at 1.2 Medications Administered CXR, CT Angio, CT abdomen --all reviewed.
[2023-12-07] MEDS ORDERED: DICYCLOMINE HCL 10 MG CAP PO PRN (17:30)
[2023-12-07] MEDS: cefTRIAXone SODIUM 2,000 MG/50 ML BAG IV SCH (20:39)
[2023-12-08 08:58] LABS: BUN Creatinine Ratio 13.4 (10-20); Basophils # (auto) 0.02 K/uL (0.00-0.20); Basophils % (auto) 0.6 %; Calcium 8.7 mg/dl (8.6-10.3); Creatinine Clr Calc Pharmacy 70.4 ml/min; Eosinophils # (auto) 0.14 K/uL (0.00-0.50); Eosinophils % (auto) 4.5 %; Est GFR (African American) 96.2 ml/min; Hematocrit (blood only) 28.8 % (37.0-47.0); Hemoglobin 9.8 g/dl (12.0-16.0); Immature Granulocytes # (auto) 0.01 K/uL (0.01-0.20); Immature Granulocytes % (auto) 0.3 %; Lymphocytes # (auto) 0.76 K/uL (1.20-3.40); Lymphocytes % (auto) 24.5 %; Magnesium 1.3 mg/dl (1.7-2.4); Mean Corpuscular Hemoglobin 30.5 pg (25.0-34.0); Mean Corpuscular Volume 89.7 fL (80.0-100.0); Mean Platelet Volume 10.1 fL (9.4-12.4); Monocytes # (auto) 0.59 K/uL (0.11-0.59); Neutrophils # (auto) 1.58 K/uL (1.40-6.50); Neutrophils % (auto) 51.1 %; Phosphorus 3.2 mg/dl (2.5-4.9); Platelet Count 267 K/uL (130-400); RDW Coefficient of Variation 14.3 % (11.5-14.5); Red Blood Count 3.21 M/uL (4.20-5.40)
[2023-12-08 09:20] LABS: Folate (Folic Acid),Ser orPlas 8.57 ng/ml (>5.38)
[2023-12-08] MEDS: MAGNESIUM SULFATE / D5W 1 GM/100 ML BAG IV SCH (12:21)
--- NOTE | 2023-12-08 14:41 | Hospitalist Progress Note ---
Date of Service December 08, 2023 Assessment & Plan (1) Acute hyponatremia: Plan Pt is an 78yoF with PMHx significant for chronic diastolic heart failure (55 to 60%, TTE 2022), moderate , hypertension, bronchial asthma, pulmonary hypertension, JOO on CPAP, GERD, prediabetes, left breast cancer status post surgery/radiation, endometrial cancer status post surgery/chemotherapy, urinary incontinence as per records, MGUS, chronic anemia (baseline hemoglobin of 10), anxiety/mood disorder, OCD presenting with chest and abdominal pain and concerns for dizziness. Found to be significantly hyponatremic. Acute Hyponatremia sodium of 127 on admission Urine osm of 419, urine sodium of 97 and serum osm of 276 received IVF with NSS Has been trending up, avid overcorrection Nephrology consulted, appreciate recs Continue to monitor with AM labs Generalized weakness Dizziness Likely in setting of above head CT noting past stroke PT/OT Abdominal Pain CT abd/pelvis with no acute changes LFTs unremarkable Pain control prn bentyl ordered Continue to monitor Hypomagnesemia Replete as needed Chest pain Esophagitis Trop wnl x2 at 11.4, 13.2 EKG NSR Chest xray with no acute changes Chest CTA noting possible esophagitis and postcancer treatment changes chest pain likely secondary to uncontrolled GERD Continue pantoprazole 40mg BID Consider addition of famotidine for better control Continue to monitor on telemetry Complicated UTI no sepsis for now UA slightly suggestive of infection on admission Urine Cx recommended repeat cx, repeat ordered Continue with rocephin at this time Normocytic Anemia Aute on chronic anemia Hgb in 8.8 to 9.2 range hemoglobin drop from baseline secondary to intermittent LGIB AM anemia panel Continue to monitor Elevated D- dimer D dimer elevated CTA chest with no noted PE chronic diastolic heart failure (55 to 60%, TTE 2022) patient on the dry side hypertension BP on the lower side bronchial asthma pulmonary hypertension Stable JOO on CPAP Stable prediabetes hemoglobin A1c of 5.3 this year left breast cancer status post surgery endometrial cancer status post surgery Stable anxiety/mood disorder at baseline Diet: HH DVT prophylaxis: SCDs RE LGIB Dispo: PT/OT ordered for further recs Admission and Anticipated Discharge Date Admission Date: December 06, 2023 Subjective pt was seen sitting in chair at bedside. Had notebook out, taking notes. States that she was feeling much better. Presenting symptoms have resolved but having some slight abdominal pain with palpation. Review of Systems Review of Systems: All systems reviewed & are unremarkable except as noted in Subjective Physical Exam Physical Exam: General: Alert, oriented. No acute distress Psych: Appropriate mood and affect Neuro: No gross deficits while sitting in chair HEENT: NC/AT CV: RRR Resp: Breath sounds clear bilaterally, no increased effort of breathing Abdomen: Soft, tender diffusely Extremities: edema in lower extremities bilaterally. Results & Data Results & Data Vital Signs (Past 12 Hours) Vital Signs Temp Pulse Pulse Resp BP Pulse Ox O2 Del Method 12/08/23 11:21 36.8 C 67 18 95/59 L 98 Room Air 12/08/23 07:27 76 12/08/23 07:21 36.8 C 69 18 136/74 95 Room Air 12/08/23 03:07 66 16 94 12/08/23 02:42 36.7 C 67 20 121/66 96 CPAP O2 Flow Rate 12/08/23 11:21 12/08/23 07:27 12/08/23 07:21 12/08/23 03:07 2 12/08/23 02:42 2
[2023-12-08] MEDS: MAGNESIUM OXIDE 400 MG TAB PO SCH (20:16)
[2023-12-09 06:26] LABS: Basophils # (auto) 0.01 K/uL (0.00-0.20); Basophils % (auto) 0.3 %; Eosinophils # (auto) 0.14 K/uL (0.00-0.50); Eosinophils % (auto) 4.5 %; Hematocrit (blood only) 23.6 % (37.0-47.0); Hemoglobin 8.2 g/dl (12.0-16.0); Immature Granulocytes # (auto) 0.01 K/uL (0.01-0.20); Immature Granulocytes % (auto) 0.3 %; Lymphocytes # (auto) 1.04 K/uL (1.20-3.40); Lymphocytes % (auto) 33.2 %; Mean Corpuscular Hemoglobin 30.6 pg (25.0-34.0); Mean Corpuscular Hgb Conc 34.7 g/dL (32.0-36.0); Mean Corpuscular Volume 88.1 fL (80.0-100.0); Mean Platelet Volume 10.3 fL (9.4-12.4); Monocytes % (auto) 19.2 %; Neutrophils # (auto) 1.33 K/uL (1.40-6.50); Neutrophils % (auto) 42.5 %; Platelet Count 243 K/uL (130-400); RDW Coefficient of Variation 14.1 % (11.5-14.5); RDW Standard Deviation 45.1 fL (36.4-46.3); Red Blood Count 2.68 M/uL (4.20-5.40); White Blood Count 3.13 K/ul (4.8-10.8)
[2023-12-09 06:42] LABS: Calcium 8.1 mg/dl (8.6-10.3); Creatinine Clr Calc Pharmacy 85.9 ml/min; Est GFR (African American) 102.7 ml/min; Est GFR (Non-African American) 88.6 ml/min; Magnesium 1.5 mg/dl (1.7-2.4); Phosphorus 2.9 mg/dl (2.5-4.9); Potassium 3.9 mmol/L (3.5-5.1)
--- NOTE | 2023-12-09 08:55 | Nephrology Progress Note ---
Date of Service December 09, 2023 Assessment & Plan Admission and Anticipated Discharge Date Admission Date: December 06, 2023 Subjective Assessment & Plan (1) Acute hyponatremia: na was slightly low on Admission at 127 and since then got up 129 and then 132 but then started dropping again. urine osm and urine NA+ more consistent with SIADH although got better with NS ( makes it more likely to be volume deficit related). Also her PO intake of Solid food/protein was very low pre admission. So had some combination of SIADH, Volume depletion and Low Solute diet. FFR 1500 ml per day. 1000 ml of NS today urine 20 bid for free water diuresis renal panel in AM (2) Hypomagnesemia: on PPI which can lower mag level. Change to Slow mag 128 bid. 2 gm iv mag today (3) Generalized weakness: Unclear cause . defer to Primary team (4) Chest pain: Unclear cause . defer to Primary team History of Present Illness Reason for Consultation: Hyponatremia Attending Physician: June Hernandez MD History of Present Illness 78/F brought by EMS--for Non specific chest pain and generalized weakness. chest pain located under her left breast which radiated across to her chest into her right shoulder and from her right shoulder down her back. She states that she tried to get up and was lightheaded and very unsteady on her feet. chest pain lasted for a few hours. No pain currently. na was low at 127 on admission and then went up to 129 and then 132. Did get Some NS. Seems she does have h/o intermittent hyponatremia--na 135 . Normal kidney function now but says she had dialysis for Severe ALBERT for few weeks but could not find that in record. ROS--Currently All systems normal. Physical Exam Physical Exam: GENERAL: Comfortable, very chatty and pleasant, no respiratory distress HEENT: Pale palpebral conjunctivae, no ptosis, dry buccal mucosa NECK : Supple, no tenderness CHEST : Clear b/l HEART : RRR, systolic murmur ABDOMEN: Soft, non tender EXtREMITIES : No LE swelling/tenderness NEUROLOGIC : Coherent, no facial asymmetry, no other gross focality Results & Data Vital Signs (Past 12 Hours) Vital Signs Temp Pulse Pulse Resp BP Pulse Ox O2 Del Method 12/09/23 07:34 62 12/09/23 03:56 17 07/13/24 03:36 36.5 C 70 18 129/58 L 98 CPAP 12/08/23 23:22 37 C 69 16 131/69 98 CPAP 12/08/23 22:22 Room Air 12/08/23 22:10 69 O2 Flow Rate 12/09/23 07:34 12/09/23 03:56 2 12/09/23 03:36 12/08/23 23:22 12/08/23 22:22 12/08/23 22:10
[2023-12-09] MEDS: SODIUM CHLORIDE 0.9% 1,000 ML IV SCH (09:00)
[2023-12-09] MEDS: MAGNESIUM SULFATE / D5W 1 GM/100 ML BAG IV SCH (10:34)
[2023-12-09] MEDS: FUROSEMIDE INJ 20 MG/2 ML VIAL IV SCH (10:36)
[2023-12-09] MEDS: MAGNESIUM CHLORIDE W/CALCIUM 64MG DELAYED REL TAB PO SCH (10:36)
--- NOTE | 2023-12-09 14:48 | Hospitalist Progress Note ---
Date of Service December 09, 2023 Assessment & Plan (1) Acute hyponatremia: Plan Pt is an 78yoF with PMHx significant for chronic diastolic heart failure (55 to 60%, TTE 2022), moderate , hypertension, bronchial asthma, pulmonary hypertension, JOO on CPAP, GERD, prediabetes, left breast cancer status post surgery/radiation, endometrial cancer status post surgery/chemotherapy, urinary incontinence as per records, MGUS, chronic anemia (baseline hemoglobin of 10), anxiety/mood disorder, OCD presenting with chest and abdominal pain and concerns for dizziness. Found to be significantly hyponatremic. Acute Hyponatremia sodium of 127 on admission Urine osm of 419, urine sodium of 97 and serum osm of 276 received IVF with NSS Has been trending up, avoid overcorrection, down once more on 12/08 Nephrology consulted, appreciate recs Continue to monitor with AM labs Generalized weakness Dizziness Likely in setting of above head CT noting past stroke PT/OT Abdominal Pain CT abd/pelvis with no acute changes LFTs unremarkable Pain control prn bentyl ordered Continue to monitor Hypomagnesemia Replete as needed Chest pain Esophagitis Trop wnl x2 at 11.4, 13.2 EKG NSR Chest xray with no acute changes Chest CTA noting possible esophagitis and postcancer treatment changes chest pain likely secondary to uncontrolled GERD Continue pantoprazole 40mg BID Consider addition of famotidine for better control Continue to monitor on telemetry Complicated UTI no sepsis for now UA slightly suggestive of infection on admission Urine Cx recommended repeat cx, repeat ordered Continue with rocephin at this time Normocytic Anemia Aute on chronic anemia Hgb in 8.8 to 9.2 range hemoglobin drop from baseline secondary to intermittent LGIB AM anemia panel Continue to monitor Elevated D- dimer D dimer elevated CTA chest with no noted PE chronic diastolic heart failure (55 to 60%, TTE 2022) patient on the dry side hypertension BP on the lower side bronchial asthma pulmonary hypertension Stable JOO on CPAP Stable prediabetes hemoglobin A1c of 5.3 this year left breast cancer status post surgery endometrial cancer status post surgery Stable anxiety/mood disorder at baseline Diet: HH DVT prophylaxis: SCDs RE LGIB Dispo: PT/OT ordered for further recs Admission and Anticipated Discharge Date Admission Date: December 06, 2023 Subjective pt seen sitting in chair at bedside. Denied acute concerns. sodium level down today once more Review of Systems Review of Systems: All systems reviewed & are unremarkable except as noted in Subjective Physical Exam Physical Exam: General: Alert, oriented. No acute distress Psych: Appropriate mood and affect Neuro: No gross deficits while sitting in chair HEENT: NC/AT CV: RRR Resp: Breath sounds clear bilaterally, no increased effort of breathing Abdomen: Soft, tender diffusely Extremities: edema in lower extremities bilaterally. Results & Data Results & Data Vital Signs (Past 12 Hours) Vital Signs Temp Pulse Pulse Resp BP Pulse Ox O2 Del Method 12/09/23 12:08 36.6 C 74 16 109/61 94 Room Air 12/09/23 07:34 62 12/09/23 03:56 17 12/09/23 03:36 36.5 C 70 18 129/58 L 98 CPAP O2 Flow Rate 12/09/23 12:08 12/09/23 07:34 12/09/23 03:56 2 12/09/23 03:36
[2023-12-09] MEDS: NYSTATIN POWDER 15GM BTL EXT SCH (23:52)
[2023-12-10 05:26] LABS: Basophils # (auto) 0.01 K/uL (0.00-0.20); Basophils % (auto) 0.2 %; Eosinophils # (auto) 0.14 K/uL (0.00-0.50); Eosinophils % (auto) 3.4 %; Hematocrit (blood only) 24.7 % (37.0-47.0); Hemoglobin 8.5 g/dl (12.0-16.0); Immature Granulocytes # (auto) 0.02 K/uL (0.01-0.20); Immature Granulocytes % (auto) 0.5 %; Lymphocytes # (auto) 0.99 K/uL (1.20-3.40); Lymphocytes % (auto) 24.3 %; Mean Corpuscular Hemoglobin 30.5 pg (25.0-34.0); Mean Corpuscular Hgb Conc 34.4 g/dL (32.0-36.0); Mean Corpuscular Volume 88.5 fL (80.0-100.0); Mean Platelet Volume 10.4 fL (9.4-12.4); Monocytes # (auto) 0.82 K/uL (0.11-0.59); Monocytes % (auto) 20.1 %; Neutrophils # (auto) 2.09 K/uL (1.40-6.50); Neutrophils % (auto) 51.5 %; Platelet Count 250 K/uL (130-400); RDW Coefficient of Variation 14.3 % (11.5-14.5); RDW Standard Deviation 46.2 fL (36.4-46.3); Red Blood Count 2.79 M/uL (4.20-5.40); White Blood Count 4.07 K/ul (4.8-10.8)
[2023-12-10 05:44] LABS: Calcium 8.5 mg/dl (8.6-10.3); Est GFR (African American) 100.3 ml/min; Est GFR (Non-African American) 86.6 ml/min; Magnesium 1.5 mg/dl (1.7-2.4); Potassium 4.2 mmol/L (3.5-5.1)
--- NOTE | 2023-12-10 10:27 | Nephrology Progress Note ---
Date of Service December 10, 2023 Assessment & Plan Admission and Anticipated Discharge Date Admission Date: December 06, 2023 Subjective Assessment & Plan (1) Acute hyponatremia: na was slightly low on Admission at 127 and since then got up 129 and then 132 but then started dropping again. urine osm and urine NA+ more consistent with SIADH although got better with NS ( makes it more likely to be volume deficit related). Also her PO intake of Solid food/protein was very low pre admission. So had some combination of SIADH, Volume depletion and Low Solute diet. FFR 1500 ml per day. Stop iv fluid lasix iv 20 bid for free water diuresis\ Also add urea-na 15 gm bid renal panel in AM. na does not have to be normal for discharge--As long as stable they can be discharged (2) Hypomagnesemia: on PPI which can lower mag level. Continue Slow mag 128 bid. No need of Iv mag today. (3) Generalized weakness: Unclear cause . defer to Primary team (4) Chest pain: Unclear cause . defer to Primary team S--feels fine. PO intake not very good. Vital signs are fine. making urine. Physical Exam Physical Exam: GENERAL: Comfortable, very chatty and pleasant, no respiratory distress HEENT: Pale palpebral conjunctivae, no ptosis, dry buccal mucosa NECK : Supple, no tenderness CHEST : Clear b/l HEART : RRR, systolic murmur ABDOMEN: Soft, non tender EXtREMITIES : No LE swelling/tenderness NEUROLOGIC : Coherent, no facial asymmetry, no other gross focality Results & Data Vital Signs (Past 12 Hours) Vital Signs Temp Pulse Pulse Resp BP Pulse Ox O2 Del Method 12/10/23 07:44 36.7 C 66 16 121/72 94 Room Air 12/10/23 07:34 60 12/10/23 02:32 36.4 C L 70 18 122/67 100 Room Air, CPAP 12/10/23 02:11 71 21 95 12/09/23 23:56 36.5 C 64 18 129/74 98 CPAP 12/09/23 22:35 Room Air, CPAP O2 Flow Rate 12/10/23 07:44 12/10/23 07:34 12/10/23 02:32 12/10/23 02:11 2 12/09/23 23:56 12/09/23 22:35
[2023-12-10] MEDS: UREA (UREA-NA) 15 GM PACK PO SCH (10:48)
[2023-12-10] MEDS: MAGNESIUM SULFATE / D5W 1 GM/100 ML BAG IV SCH (10:49)
--- NOTE | 2023-12-10 14:18 | Hospitalist Progress Note ---
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 Found to be significantly hyponatremic. Acute Hyponatremia sodium of 127 on admission Urine osm of 419, urine sodium of 97 and serum osm of 276 received IVF with NSS Has been trending up, avoid overcorrection, down once more Nephrology consulted, appreciate recs Continue to monitor with AM labs Generalized weakness Dizziness Likely in setting of above head CT noting past stroke PT/OT Abdominal Pain CT abd/pelvis with no acute changes LFTs unremarkable Pain control prn bentyl ordered Continue to monitor Hypomagnesemia Replete as needed Chest pain Esophagitis Trop wnl x2 at 11.4, 13.2 EKG NSR Chest xray with no acute changes Chest CTA noting possible esophagitis and postcancer treatment changes chest pain likely secondary to uncontrolled GERD Continue pantoprazole 40mg BID Consider addition of famotidine for better control Continue to monitor on telemetry Complicated UTI no sepsis for now UA slightly suggestive of infection on admission Urine Cx recommended repeat cx, repeat ordered Continue with rocephin at this time Normocytic Anemia Aute on chronic anemia Hgb in 8.8 to 9.2 range hemoglobin drop from baseline secondary to intermittent LGIB AM anemia panel Continue to monitor Elevated D- dimer D dimer elevated CTA chest with no noted PE chronic diastolic heart failure (55 to 60%, TTE 2022) patient on the dry side hypertension BP on the lower side bronchial asthma pulmonary hypertension Stable JOO on CPAP Stable prediabetes hemoglobin A1c of 5.3 this year left breast cancer status post surgery endometrial cancer status post surgery Stable anxiety/mood disorder at baseline Diet: HH DVT prophylaxis: SCDs RE LGIB Dispo: PT/OT ordered for further recs Admission and Anticipated Discharge Date Admission Date: December 06, 2023 Subjective Pt seen with daughters at bedside. Anxious for discharge Sodium level still decreased Review of Systems Review of Systems: All systems reviewed & are unremarkable except as noted in Subjective Physical Exam Physical Exam: General: Alert, oriented. No acute distress Psych: Appropriate mood and affect Neuro: No gross deficits while sitting in chair HEENT: NC/AT CV: RRR, + murmur Resp: Breath sounds clear bilaterally, no increased effort of breathing Abdomen: Soft, tender diffusely Extremities: edema in lower extremities bilaterally. Results & Data Results & Data Vital Signs (Past 12 Hours) Vital Signs Temp Pulse Pulse Resp BP Pulse Ox O2 Del Method 12/10/23 11:18 36.6 C 72 16 120/68 96 Room Air 12/10/23 07:44 36.7 C 66 16 121/72 94 Room Air 12/10/23 07:34 60 12/10/23 02:32 36.4 C L 70 18 122/67 100 Room Air, CPAP
[2023-12-11 06:45] LABS: Hematocrit (blood only) 26.5 % (37.0-47.0); Hemoglobin 9.1 g/dl (12.0-16.0); Mean Corpuscular Hemoglobin 30.5 pg (25.0-34.0); Mean Corpuscular Hgb Conc 34.3 g/dL (32.0-36.0); Mean Corpuscular Volume 88.9 fL (80.0-100.0); Mean Platelet Volume 10.3 fL (9.4-12.4); Platelet Count 260 K/uL (130-400); RDW Coefficient of Variation 14.4 % (11.5-14.5); RDW Standard Deviation 46.1 fL (36.4-46.3); Red Blood Count 2.98 M/uL (4.20-5.40); White Blood Count 3.44 K/ul (4.8-10.8)
[2023-12-11 07:03] LABS: BUN Creatinine Ratio 50.8 (10-20); Calcium 9.1 mg/dl (8.6-10.3); Creatinine Clr Calc Pharmacy 74.8 ml/min; Est GFR (African American) 98.2 ml/min; Est GFR (Non-African American) 84.7 ml/min; Magnesium 1.7 mg/dl (1.7-2.4); Phosphorus 3.6 mg/dl (2.5-4.9); Potassium 4.3 mmol/L (3.5-5.1)
--- NOTE | 2023-12-11 13:40 | Hospitalist Progress Note ---
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 Found to be significantly hyponatremic. Acute Hyponatremia sodium of 127 on admission Urine osm of 419, urine sodium of 97 and serum osm of 276 received IVF with NSS Avoid overcorrection Nephrology consulted, appreciate recs. Current recs are -FFR 1500 ml per day. -Stop iv fluid -lasix iv 20 bid for free water diuresis - urea-na 15 gm bid -renal panel in AM. -na does not have to be normal for discharge--As long as stable they can be discharged Continue to monitor with AM labs Improving Generalized weakness Dizziness Likely in setting of above head CT noting past stroke PT/OT Abdominal Pain CT abd/pelvis with no acute changes LFTs unremarkable Pain control prn bentyl ordered Continue to monitor Hypomagnesemia Replete as needed Chest pain Esophagitis Trop wnl x2 at 11.4, 13.2 EKG NSR Chest xray with no acute changes Chest CTA noting possible esophagitis and postcancer treatment changes chest pain likely secondary to uncontrolled GERD Continue pantoprazole 40mg BID Consider addition of famotidine for better control Continue to monitor on telemetry Complicated UTI no sepsis for now UA slightly suggestive of infection on admission Urine Cx recommended repeat cx, repeat ordered-NGTD Continue with rocephin at this time, day 4/5 Normocytic Anemia Aute on chronic anemia Hgb in 8.8 to 9.2 range hemoglobin drop from baseline secondary to intermittent LGIB Anemia panel wnl Continue to monitor Elevated D- dimer D dimer elevated CTA chest with no noted PE chronic diastolic heart failure (55 to 60%, TTE 2022) patient on the dry side hypertension BP on the lower side bronchial asthma pulmonary hypertension Stable JOO on CPAP Stable prediabetes hemoglobin A1c of 5.3 this year left breast cancer status post surgery endometrial cancer status post surgery Stable anxiety/mood disorder at baseline Diet: HH DVT prophylaxis: SCDs RE LGIB Dispo: PT/OT recommending home with home health Admission and Anticipated Discharge Date Admission Date: December 06, 2023 Subjective pt was seen in the AM while sitting in chair at bedside. Denied acute concerns. Stated that she felt well. Review of Systems Review of Systems: All systems reviewed & are unremarkable except as noted in Subjective Physical Exam Physical Exam: General: Alert, oriented. No acute distress Psych: Appropriate mood and affect Neuro: No gross deficits while sitting in chair HEENT: NC/AT CV: RRR, + murmur Resp: Breath sounds clear bilaterally, no increased effort of breathing Abdomen: Soft, tender diffusely Extremities: edema in lower extremities bilaterally. Results & Data Results & Data Vital Signs (Past 12 Hours) Vital Signs Temp Pulse Pulse Resp BP Pulse Ox O2 Del Method 12/11/23 11:21 36.7 C 55 L 16 100/65 95 Room Air 12/11/23 10:22 62 12/11/23 07:18 36.6 C 69 16 103/64 98 Room Air 12/11/23 05:11 63 15 95 O2 Flow Rate 12/11/23 11:21 12/11/23 10:22 12/11/23 07:18 12/11/23 05:11 2
--- NOTE | 2023-12-11 17:01 | Nephrology Progress Note ---
Date of Service December 11, 2023 Assessment & Plan (1) Acute hyponatremia: Plan: na was slightly low on Admission at 127 and since then got up 129 and then 132 this AM after iv fluids. dropped after stopping NS urine osm and urine NA+ more consistent with SIADH although got better with NS ( makes it more likely to be volume deficit related). Also her PO intake of Solid food/protein was very low pre admission. So had some combination of SIADH, Volume depletion and Low Solute diet initially. -daily bmp -cont 1.5L FR -cont urea and lasix current doses (2) Hypomagnesemia: Plan: improving on supplementation. mag low at 1.2 initially > 1.7 today. no repletion neededIV; cont po supplements on PPI which can lower mag level. She is on PPI which can also do this. More likely it is nutritional (3) Generalized weakness: Plan: Unclear cause . defer to Primary team (4) Chest pain: Plan: Unclear cause . defer to Primary team Admission and Anticipated Discharge Date Admission Date: December 06, 2023 Subjective no interval events. up and moving, feels well, hoping for d/c soon; states has been told multiple times she has low Na in past, that it's "always low" but had not been an issue. no n/v, no diarrhea, no dizzines,s ambulating w/ walker, no edema, no sob Review of Systems 2 Review of Systems: All systems reviewed & are unremarkable except as noted in Subjective Physical Exam 2 Constitutional: well developed (sittin gup in chair, nearly empty midday meal tray) and well nourished Eyes: EOM intact bilaterally ENMT: Ears: no external ear abnormality Nose: no external nose abnormality Mouth: + dry oral mucous membranes Neck: no nuchal rigidity Respiratory: normal respiratory effort Auscultation: + diminished lung sounds Cardiovascular: RRR, no murmur, no edema Gastrointestinal (Abdomen): Inspection/Auscultation: normal bowel sounds P ercussion/Palpation: abdomen soft; abdomen nontender Musculoskeletal: Extremities: strength 5/5 throughout Skin: no rashes, warm and dry Neurologic: carias, fluent speech, no tremor Results & Data Vital Signs (Past 12 Hours) Vital Signs Temp Pulse Pulse Resp BP Pulse Ox O2 Del Method 12/11/23 15:53 37.0 C 71 16 97/62 L 98 Room Air 12/11/23 14:56 73 12/11/23 11:21 36.7 C 55 L 16 100/65 95 Room Air 12/11/23 10:22 62 12/11/23 07:18 36.6 C 69 16 103/64 98 Room Air 12/11/23 05:11 63 15 95 O2 Flow Rate 12/11/23 15:53 12/11/23 14:56 12/11/23 11:21 12/11/23 10:22 12/11/23 07:18 12/11/23 05:11 2 Laboratory Results 12/11/23 06:11 12/11/23 06:11
[2023-12-12 06:32] LABS: Hematocrit (blood only) 28.8 % (37.0-47.0); Hemoglobin 9.8 g/dl (12.0-16.0); Mean Corpuscular Hemoglobin 30.6 pg (25.0-34.0); Mean Platelet Volume 10.5 fL (9.4-12.4); Platelet Count 284 K/uL (130-400); RDW Coefficient of Variation 14.9 % (11.5-14.5); RDW Standard Deviation 48.8 fL (36.4-46.3); White Blood Count 4.44 K/ul (4.8-10.8)
[2023-12-12 06:55] LABS: BUN Creatinine Ratio 59.8 (10-20); Calcium 9.9 mg/dl (8.6-10.3); Creatinine Clr Calc Pharmacy 57.3 ml/min; Est GFR (African American) 78.3 ml/min; Est GFR (Non-African American) 67.6 ml/min; Magnesium 1.6 mg/dl (1.7-2.4); Phosphorus 4.3 mg/dl (2.5-4.9); Potassium 4.5 mmol/L (3.5-5.1)
[2023-12-12] MEDS: MAGNESIUM SULFATE / D5W 1 GM/100 ML BAG IV SCH (09:36)
--- NOTE | 2023-12-12 12:49 | Nephrology Progress Note ---
Date of Service December 12, 2023 Assessment & Plan (1) Acute hyponatremia: Plan: labile sodium levels but steady uptrend since starting urea, lasix. na was slightly low on Admission at 127 and since then got up 129 and then 132 this AM after iv fluids. dropped after stopping NS urine osm and urine NA+ more consistent with SIADH although got better with NS initially. Also her PO intake of Solid food/protein was very low pre admission. So had some combination of SIADH, Volume depletion and Low Solute diet initially. -daily bmp -cont 1.5L FR -cont urea current dose >>tells me she cannot afford urea (out of pocket cost about $100/monthly for 15 gm bid) >> recommend review w/ d/c habitat conservation planner; check WeYAP >changed IV lasix to 40 mg po bid 17 >ordered economics department chair c/s to instruct on high magnesium, high potassium foods and high protein diet > aim for at least 80 gm daily protein intake >recommend protein powder (flavorless, no sweeteners) to help hit protein intake target; (20 gm per scoop; can dissolve in beverages or sprinkle on food) will sign off [facility]PH[facility] D/C RECS -urea 15 gm bid (have at least 1 month supply on hand/en route before d/c) -lasix 40 mg 2 daily doses at least 4 hours or more apart -mag chloride or mag ox 1 tab bid -3 servings daily each of high mag and of high potassium foods -1.5 L daily fluid limit -80 gm daily protein intake; recommend supplement w/ above protein powder -bmp at pcp f/u appt -[facility]/c appt w/ any physician [facility] 2-4 wks after d/c w/ bmp, uacm, acr, serum and urine osms, urine electrolytes, SPEP, UPEP, kappa/lambda ratio given hx of MGUS care coordinated w/ Dr Hernandez regarding above d/c recs, med changes, educational plans, dietary recs (2) Hypomagnesemia: Plan: improving on supplementation. mag low at 1.2 initially > 1.7 today. no repletion neededIV; cont po supplements on PPI which can lower mag level. She is on PPI which can also do this. More likely it is nutritional (3) Generalized weakness: Plan: Unclear cause . defer to Primary team (4) Chest pain: Plan: Unclear cause . defer to Primary team Admission and Anticipated Discharge Date Admission Date: December 06, 2023 Subjective no interval events. denies sob; some improved appetite. no edema,no n/v. no voiding c/o. tolerating FR Review of Systems 2 Review of Systems: All systems reviewed & are unremarkable except as noted in Subjective Physical Exam 2 Constitutional: well developed (sittin gup in chair, on RA) and well nourished Eyes: EOM intact bilaterally ENMT: Ears: no external ear abnormality Nose: no external nose abnormality Mouth: + dry oral mucous membranes Neck: no nuchal rigidity Respiratory: normal respiratory effort Auscultation: + diminished lung sounds and + crackles (R base) Cardiovascular: RRR, no murmur, no edema Gastrointestinal (Abdomen): Inspection/Auscultation: normal bowel sounds P ercussion/Palpation: abdomen soft; abdomen nontender Musculoskeletal: Extremities: strength 5/5 throughout Skin: no rashes, warm and dry Results & Data Vital Signs (Past 12 Hours) Vital Signs Temp Pulse Pulse Resp BP Pulse Ox O2 Del Method 12/12/23 11:18 36.8 C 73 18 117/70 98 Room Air 12/12/23 10:12 74 12/12/23 08:07 36.5 C 65 16 112/68 96 Room Air 12/12/23 04:20 36.4 C L 75 20 125/66 95 CPAP 12/12/23 03:20 59 L 14 95 O2 Flow Rate 12/12/23 11:18 12/12/23 10:12 12/12/23 08:07 12/12/23 04:20 12/12/23 03:20 2 Laboratory Results 12/12/23 05:44 12/12/23 05:44
--- NOTE | 2023-12-12 13:46 | Hospitalist Progress Note ---
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 Found to be significantly hyponatremic. Acute Hyponatremia sodium of 127 on admission Urine osm of 419, urine sodium of 97 and serum osm of 276 received IVF with NSS Avoid overcorrection Nephrology consulted, appreciate recs. Recs for discharge NEPHRO D/C RECS -urea 15 gm bid (have at least 1 month supply on hand/en route before d/c) -lasix 40 mg 2 daily doses at least 4 hours or more apart -mag chloride or mag ox 1 tab bid -3 servings daily each of high mag and of high potassium foods -1.5 L daily fluid limit -80 gm daily protein intake; recommend supplement w/ above protein powder -bmp at pcp f/u appt -[facility] d/c appt w/ any physician [facility] 2-4 wks after d/c w/ bmp, uacm, acr, serum and urine osms, urine electrolytes, SPEP, UPEP, kappa/lambda ratio given hx of MGUS Per nephrology pt stable for discharge. However pt states cannot afford urea. Per nephrology, dietitian consult was placed for further dietary recs to help sodium. Appreciate CM assistance with resources for urea medication. sodium currently improving Generalized weakness Dizziness Likely in setting of above head CT noting past stroke PT/OT Abdominal Pain CT abd/pelvis with no acute changes LFTs unremarkable Pain control prn bentyl ordered Continue to monitor Hypomagnesemia Replete as needed Chest pain Esophagitis Trop wnl x2 at 11.4, 13.2 EKG NSR Chest xray with no acute changes Chest CTA noting possible esophagitis and postcancer treatment changes chest pain likely secondary to uncontrolled GERD Continue pantoprazole 40mg BID Consider addition of famotidine for better control Continue to monitor on telemetry Complicated UTI no sepsis for now UA slightly suggestive of infection on admission Urine Cx recommended repeat cx, repeat ordered-NGTD Continue with rocephin at this time, day 4/5 Normocytic Anemia Aute on chronic anemia Hgb in 8.8 to 9.2 range hemoglobin drop from baseline secondary to intermittent LGIB Anemia panel wnl Continue to monitor Elevated D- dimer D dimer elevated CTA chest with no noted PE chronic diastolic heart failure (55 to 60%, TTE 2022) patient on the dry side hypertension BP on the lower side bronchial asthma pulmonary hypertension Stable JOO on CPAP Stable prediabetes hemoglobin A1c of 5.3 this year left breast cancer status post surgery endometrial cancer status post surgery Stable anxiety/mood disorder at baseline Diet: HH DVT prophylaxis: SCDs, heparin SQ Dispo: PT/OT recommending home with home health Admission and Anticipated Discharge Date Admission Date: December 06, 2023 Subjective Pt was seen sitting in chair at bedside Denied acute concerns. Notes even abdominal pain had improved. Review of Systems Review of Systems: All systems reviewed & are unremarkable except as noted in Subjective Physical Exam Physical Exam: General: Alert, oriented. No acute distress Psych: Appropriate mood and affect Neuro: No gross deficits while sitting in chair HEENT: NC/AT CV: RRR, + murmur Resp: Breath sounds clear bilaterally, no increased effort of breathing Abdomen: Soft, nontender today Extremities: edema in lower extremities bilaterally. Results & Data Results & Data Vital Signs (Past 12 Hours) Vital Signs Temp Pulse Pulse Resp BP Pulse Ox O2 Del Method 12/12/23 11:18 36.8 C 73 18 117/70 98 Room Air 12/12/23 10:12 74 12/12/23 08:07 36.5 C 65 16 112/68 96 Room Air 12/12/23 04:20 36.4 C L 75 20 125/66 95 CPAP 12/12/23 03:20 59 L 14 95 O2 Flow Rate 12/12/23 11:18 12/12/23 10:12 12/12/23 08:07 12/12/23 04:20 12/12/23 03:20 2
[2023-12-12] MEDS: FUROSEMIDE 40 MG TAB PO SCH (18:14)
[2023-12-12] MEDS: HEPARIN SOD 5,000 UNIT/0.5 ML VIAL SQ SCH (20:53)
[2023-12-13 04:20] VITALS: RESP 18
[2023-12-13 06:31] LABS: Hematocrit (blood only) 26.8 % (37.0-47.0); Mean Corpuscular Hemoglobin 30.1 pg (25.0-34.0); Mean Corpuscular Hgb Conc 33.6 g/dL (32.0-36.0); Mean Corpuscular Volume 89.6 fL (80.0-100.0); Mean Platelet Volume 10.5 fL (9.4-12.4); Platelet Count 260 K/uL (130-400); RDW Coefficient of Variation 14.9 % (11.5-14.5); RDW Standard Deviation 48.9 fL (36.4-46.3); Red Blood Count 2.99 M/uL (4.20-5.40)
[2023-12-13 06:47] LABS: BUN Creatinine Ratio 87.8 (10-20); Calcium 9.4 mg/dl (8.6-10.3); Creatinine Clr Calc Pharmacy 62.7 ml/min; Est GFR (African American) 88.7 ml/min; Est GFR (Non-African American) 76.5 ml/min; Magnesium 1.9 mg/dl (1.7-2.4); Phosphorus 4.1 mg/dl (2.5-4.9); Potassium 4.4 mmol/L (3.5-5.1)
[2023-12-13 11:28] VITALS: TEMP 97.7; O2SAT 97
[2023-12-13 15:09] VITALS: BP 120/73
[2023-12-13 15:10] VITALS: PULSE 72
--- NOTE | 2023-12-13 19:42 | Discharge Summary ---
Discharge Summary Date of Service December 13, 2023 Principal Dx & Hospital Course #1 = Principal Diagnosis (1) Acute hyponatremia: Plan Pt is an 78yoF with PMHx significant for chronic diastolic heart failure (55 to 60%, TTE 2022), moderate , hypertension, bronchial asthma, pulmonary hypertension, JOO on CPAP, GERD, prediabetes, left breast cancer status post surgery/radiation, endometrial cancer status post surgery/chemotherapy, urinary incontinence as per records, MGUS, chronic anemia (baseline hemoglobin of 10), anxiety/mood disorder, OCD presenting with chest and abdominal pain and concerns for dizziness. Found to be significantly hyponatremic. Patient improved with urea, lasix, and increased protein intake through out admission. Course complicated by financial constraints regarding urea. Ultimately, patient discharged with lasix, fluid restrictions, and increased protein intake. Acute Hyponatremia sodium of 127 on admission Urine osm of 419, urine sodium of 97 and serum osm of 276 received IVF with NSS Avoid overcorrection Nephrology consulted, appreciate recs. Recs for discharge NEPHRO D/C RECS -urea 15 gm bid (have at least 1 month supply on hand/en route before d/c) -lasix 40 mg 2 daily doses at least 4 hours or more apart -mag chloride or mag ox 1 tab bid -3 servings daily each of high mag and of high potassium foods -1.5 L daily fluid limit -80 gm daily protein intake; recommend supplement w/ above protein powder -bmp at pcp f/u appt -[facility] d/c appt w/ any physician [place] 2-4 wks after d/c w/ bmp, uacm, acr, serum and urine osms, urine electrolytes, SPEP, UPEP, kappa/lambda ratio given hx of MGUS Per nephrology pt stable for discharge. However pt states cannot afford urea. Per nephrology, dietitian consult was placed for further dietary Given urea is listed as a supplement, urea is not covered by insurance nor is there is any supply for urea available. Patient was counseled on a high mag, high potassium, high protein diet. Discussed with nephro, there are no resources for urea--will encourage close OP follow up. Plan discussed with daughter in depth at bedside. Generalized weakness Dizziness Likely in setting of above head CT noting past stroke PT/OT Abdominal Pain CT abd/pelvis with no acute changes LFTs unremarkable resolved Hypomagnesemia Replete as needed Chest pain Esophagitis Trop wnl x2 at 11.4, 13.2 EKG NSR Chest xray with no acute changes Chest CTA noting possible esophagitis and postcancer treatment changes chest pain likely secondary to uncontrolled GERD Continue pantoprazole 40mg BID Consider addition of famotidine for better control Continue to monitor on telemetry Uncomplicated UTI no sepsis for now UA slightly suggestive of infection on admission Urine Cx recommended repeat cx, repeat ordered-NGTD Completed course Normocytic Anemia Acute on chronic anemia Hgb in 8.8 to 9.2 range hemoglobin drop from baseline secondary to intermittent LGIB Anemia panel wnl Continue to monitor Elevated D- dimer D dimer elevated CTA chest with no noted PE chronic diastolic heart failure (55 to 60%, TTE 2022) patient on the dry side hypertension BP on the lower side bronchial asthma pulmonary hypertension Stable JOO on CPAP Stable prediabetes hemoglobin A1c of 5.3 this year left breast cancer status post surgery endometrial cancer status post surgery Stable anxiety/mood disorder at baseline Patient d/c with HH services Notes For Next Care Provider Medication Changes From Visit -Lasix 40mg two times a day with atleast 4 hours apart -Adhere to a high protein diet (ideally flavorless and without added sweeteners), aim for at least 80gm protein daily -This is important given the cost of urea to supplement in your diet; please keep follow up with Nephrology to discuss any changes to regimen -Adhere to a 1.5L-2L fluid restriction -Continue mag supplement 1 tablet two times a day -3 servings daily each of high mag and of high potassium foods Admission HPI Per Admitting Provider History obtained from patient and records. Medical history significant for chronic diastolic heart failure (55 to 60%, TTE 2022), moderate , hypertension, bronchial asthma, pulmonary hypertension, JOO on CPAP, GERD, prediabetes, left breast cancer status post surgery/radiation, endometrial cancer status post surgery/chemotherapy, urinary incontinence as per records, MGUS, chronic anemia (baseline hemoglobin of 10), anxiety/mood disorder, OCD. Last confinement 2016 for sepsis secondary to left hip cellulitis. 1 week history of burning left-sided chest pain, intermittent symptoms with occasional radiation to the shoulders. Intermittent achy upper abdominal pain with hematochezia attributed to hemorrhoids as per patient. Poor appetite, patient lightheaded. Increasing weakness. No fever, no chills. Patient brought to ER for evaluation. Medical History as above Surgical History : Knee surgery, carpal tunnel surgery, lymph node biopsy, cataract surgery, partial mastectomy left, cholecystectomy, hernia repair, [place], hip replacement, left salpingectomy/oophorectomy, vitrectomy Family History : COPD, cervical cancer, heart disease, lung cancer, stroke Personal/Social history : Non-smoker, no EtOH intake Admission Exam Per Admitting Provider GENERAL: Comfortable, slightly anxious, obese, pallor, no respiratory distress SKIN: Pallor, warm HEENT: Pale palpebral conjunctivae, no ptosis, dry buccal mucosa NECK : Supple, no tenderness CHEST : CTA, no tenderness HEART : RRR, systolic murmur ABDOMEN: Some distention, minimal epigastric tenderness EXTREMITIES : No LE swelling/tenderness, no other conspicuous deformities noted NEUROLOGIC : Coherent, no facial asymmetry, no other gross focality Discharge Exam Constitutional WD/WN, vitals as above Respiratory normal respiratory effort, lungs clear to auscultation Cardiovascular RRR, no murmur, no edema Gastrointestinal (Abdomen) normal bowel sounds, soft, nontender, no hepatosplenomegaly Musculoskeletal no cyanosis or clubbing, extremities motor strength 5/5 Updated Medication List Medication Instructions Recorded Confirmed Type Oxygen Home #1 ea 02/28/19 03/03/22 History cholecalciferol (vitamin D3) 25 25 mcg PO QAM 02/28/19 12/06/23 History mcg (1,000 unit) capsule fluoxetine 20 mg capsule 20 mg PO HS 02/28/19 12/06/23 History loperamide 2 mg capsule 2 mg PO .By mouth prn for ana m PRN 02/28/19 12/06/23 History Diarrhea pantoprazole 40 mg tablet,delayed 40 mg PO QAM 02/28/19 12/06/23 History release sodium chloride 0.65 % nasal drops 2 drops intranasal .INSTILL 2 02/28/19 12/06/23 History SPRAY Ebrta PRN Nasal Congestion atorvastatin 20 mg tablet 20 mg PO QAM 04/07/20 12/06/23 History fexofenadine 180 mg tablet 180 mg PO DAILY PRN ALLERGY RELIEF 04/07/20 12/06/23 History ondansetron HCl 8 mg tablet 8 mg PO Q8H PRN Nausea 04/07/20 12/06/23 History acetaminophen 500 mg tablet 1,000 mg PO Q8H PRN Pain 01/28/21 12/06/23 History (Tylenol Extra Strength) albuterol sulfate 90 mcg/actuation 2 puff inhalation Q4H PRN 01/28/21 12/06/23 History aerosol inhaler Shortness Of Breath Or Wheezing biotin 300 mcg tablet 300 mcg PO DAILY 01/28/21 12/06/23 History gabapentin 300 mg capsule 300 mg PO TID 01/28/21 12/06/23 History lorazepam 0.5 mg tablet 0.5 mg PO DAILY PRN Anxiety 01/28/21 12/06/23 History diclofenac sodium 1 % topical gel 4 g topical QID PRN Pain 12/06/23 12/06/23 History divalproex 250 mg tablet,extended 750 mg PO HS 12/06/23 12/06/23 History release 24 hr fluticasone propionate 50 2 spray intranasal QAM PRN 12/06/23 12/06/23 History mcg/actuation nasal Congestion spray,suspension oxybutynin chloride 15 mg 15 mg PO QAM 12/06/23 12/06/23 History tablet,extended release 24 hr furosemide 40 mg tablet 40 mg PO BID17 #60 tabs 12/13/23 Rx magnesium chloride 64 mg 128 mg (2 x 64 mg) PO BID #60 tabs 12/13/23 Rx (magnesium chloride) tablet,delayed release (Mag 64) Hospital Stay Data Consultations 12/06/23 19:20 ED Decision to Admit Stat 12/07/23 10:21 Consult Nephrology Routine Diagnostic Imagining Performed 12/06/23 16:01 CT head/brain wo con Stat CTA chest dissec wo/w con [CT angio chest dissec wo/w con] Stat 12/06/23 21:07 CT Abd and Pelvis [CT abd pelvis wo con] Stat Pending Results Patient Have Any Pending Studies at Discharge: No Discharge Instructions Given to Patient (Per Discharging Provider) You were admitted for abdominal pain and dizziness and found to have a very low sodium. Nephrology evaluated and felt you had a combination of reasons for your low sod ium, including a hormone issue called SIADH and poor solute diet. Please continue the following -Lasix 40mg two times a day with atleast 4 hours apart -Adhere to a high protein diet (ideally flavorless and without added sweeteners), aim for at least 80gm protein daily -This is important given the cost of urea to supplement in your diet; please keep follow up with Nephrology to discuss any changes to regimen -Adhere to a 1.5L-2L fluid restriction -Continue mag supplement 1 tablet two times a day -3 servings daily each of high mag and of high potassium foods Nephrology will contact you for labs and follow up . Total Time Total Time Spent Total Time Spent (In Minutes): 35
== END 2023-12-13 16:18 | disposition home health service (06) | DRG 643 ==
LOC: ED 14:10 → SUATTDRO 21:10 → 2W 21:10

== ENCOUNTER 2023-12-21 11:05 | Inpatient (IN) ==
--- NOTE | 2023-12-21 11:14 | Emergency Department Note ---
Impression & Plan Hyponatremia, Generalized weakness, Facial droop, Calcific tendonitis of right shoulder ED Provider Note NAME: HAILEE ROSE AGE: 78 SEX: F : 1945 ARRIVES VIA: Ambulance INFORMANT: Patient ED PROVIDER(S): Sean Contreras MD CHIEF COMPLAINT: Right shoulder pain. PLAN: Disposition: Admit MEDICAL DECISION MAKING: The patient is a pleasant 78-year-old woman with a past medical history of CKD, hyponatremia, ambulatory dysfunction, COPD, JOO who presents to the emergency department via EMS and then accompanied by family for evaluation of acute onset right shoulder pain where she is unable to move her shoulder and due to this pain has been unable to perform her ADLs where she reports it may get to the bathroom but could not get up. The patient's symptoms occur in the setting of recent hospitalization where she was managed for hyponatremia which was suspected to be multifactorial including component of SIADH, dehydration and poor solute intake. On arrival to the emergency department family also commented that they thought the right lower face was drooping somewhat but they admit that they are not sure of whether this is acutely new or they were simply paying more attention at this time due to her symptoms. They deny any fevers, chills, cough, congestion. On evaluation the patient is no distress, afebrile with stable vital signs. She appears euvolemic to slightly dry. She has reproducible tenderness to palpation of the right anterior shoulder/AC joint. There is no gross deformity. She is unable to range her right shoulder actively but with passive range of motion is able to perform this more comfortably. Distal PMS is intact. EKG without overt acute ischemia. CXR negative for acute cardiopulmonary process per my personal preliminary review/interpretation. Plain films of right shoulder demonstrates supraspinatus calcific tendinitis and mild to moderate osteoarthritis which is consistent with the patient's examination. WBC and platelets within normal limits. H/H similar to prior. Chemistry without metabolic acidosis with bicarbonate of 37, similar to prior suggestive of component of hypercapnia chronically in the setting of history of JOO/COPD. Sodium has down trended to 129 from her discharge. Electrolytes otherwise without significant abnormality. LFTs unremarkable. High-sensitivity troponin 12.6, within normal limits. CT of the head negative for acute abnormalities. CTA of the head and neck also negative for acute findings though there is description of mild irregularity of the mid ICA that is suggestive of fibromuscular dysplasia. Findings were reviewed with the patient and family. Ultimately given the patient's impaired ADLs secondary to her tendinitis as well as downtrending sodium in the setting of her hyponatremia manage recently as well as possible new facial droop they agree with plan for admission for further management. Case was discussed with Reena Bell PAC with [facility] Toscano hospitalist, who will evaluate the patient for admission. Further management per admitting team. Triage Nursing notes reviewed and agree them. Prior/external medical records reviewed Vital Signs: reviewed Differential diagnosis: Infection, dehydration, metabolic abnormality, hypo/hyperglycemia, electrolyte disturbance, anemia, hypoxia, cardiac sources, intracerebral event, toxicologic, neurologic, as well as other pathologies. ER treatment provided: See below. Diagnostics interpreted by me: ECG: Normal sinus rhythm, 85 bpm, no ectopy, no overt ST elevation or depression, QTc 459, QRS 98. Cardiac Monitoring: An order for continuous cardiac monitoring was placed and demonstrated NSR, 85 bpm, no ectopy. Laboratory studies: See below Imaging studies: See below Consultation(s): Reena Bell PAC with Re[facility] Toscano hospitalist. HPI: The patient is a pleasant 78-year-old woman with a past medical history of CKD, hyponatremia, ambulatory dysfunction, COPD, JOO who presents to the emergency department via EMS and then accompanied by family for evaluation of acute onset right shoulder pain where she is unable to move her shoulder and due to this pain has been unable to perform her ADLs where she reports it may get to the bathroom but could not get up. The patient's symptoms occur in the setting of recent hospitalization where she was managed for hyponatremia which was suspected to be multifactorial including component of SIADH, dehydration and poor solute intake. On arrival to the emergency department family also commented that they thought the right lower face was drooping somewhat but they admit that they are not sure of whether this is acutely new or they were simply paying more attention at this time due to her symptoms. They deny any fevers, chills, cough, congestion. ROS: See above HPI for pertinent positives & negatives. A total of 10 systems reviewed and were otherwise negative. VITALS:See Below PHYSICAL EXAMINATION: GENERAL: Awake, alert, fatigued appearing, in no distress, BMI 30.0. HENT: Normocephalic, atraumatic. Oropharynx unremarkable. EYES: Normal conjunctiva. Sclera non-icteric. EOMI. No nystamgus. PEARRL. NECK: Supple. No nuchal rigidity. FROM. No JVD. RESPIRATORY: Clear to auscultation. CARDIAC: Regular rate, normal rhythm. Extremities warm and well perfused. Pulses equal. ABDOMEN: Soft, non-distended. No tenderness to palpation. No rebound or guarding. No masses. MUSCULOSKELETAL: Chest examination reveals no tenderness. The back is symmetrical on inspection without obvious abnormality. There is no CVA tenderness to palpation. No joint edema. Reproducible tenderness to palpation of the right anterior shoulder/AC joint. There is no gross deformity. She is unable to range her right shoulder actively but with passive range of motion is able to perform this more comfortably. Distal PMS is intact. LOWER EXTREMITIES: Calves are equal size bilaterally and non-tender. No edema. No discoloration. NEURO: Right lower face with asymmetry at rest but symmetric with active range of motion. Otherwise, no focal sensory or motor deficits noted. SKIN: No rash or jaundice noted. Sean Contreras MD Past Med/Surg History Problem List (Updated 12/21/23 @ 19:49 by Sean Contreras MD) Calcific tendonitis of right shoulder (Acute) Hyponatremia (Acute) Facial droop (Acute) Neck pain Chest pain (Acute) Hypomagnesemia (Acute) Acute hyponatremia (Acute) Ambulatory dysfunction (Acute) Generalized weakness (Acute) Malignant neoplasm of lower-inner quadrant of left breast in female, estrogen receptor negative (Chronic 02/26/20) Medical History Hyponatremia Asthma MRSA infection Aortic stenosis MODERATE PER 01/23/20 ECHO. ABRIL 1.1CM2, MG 23 MGUS (monoclonal gammopathy of unknown significance) Arthritis Degenerative disc disease Environmental and seasonal allergies IBS (irritable bowel syndrome) LACTOSE/GLUTEN FREE DIET History of endometrial cancer 2013 SURGERY/CHEMO/RADIATION Anemia Anxiety and depression Restless leg syndrome Hyperlipidemia Sleep apnea CPAP WITH O2 AT 2L HS Hip bursitis, left Incontinence Urge incontinence of urine Urinary urgency JOO (obstructive sleep apnea) Diastolic dysfunction Morbid obesity with BMI of 45.0-49.9, adult ALBERT (acute kidney injury) OCD (obsessive compulsive disorder) GERD (gastroesophageal reflux disease) Bipolar disorder Surgical History H/O umbilical hernia repair History of anesthesia reaction SLOW TO WAKE UP History of esophagogastroduodenoscopy (EGD) History of colonoscopy H/O breast biopsy H/O eye surgery LASER PROCEDURE RT/LEFT History of cataract surgery RT/LEFT S/P ectopic History of left hip replacement History of hysterectomy Hx of cholecystectomy History of carpal tunnel surgery Bilateral Status post total knee replacement, right Family History Mother , in 88yo Cervical cancer Status post cardiac surgery Surgery on "valves" Hypertension Father , 60yo Lung cancer Smoker Brother COPD (chronic obstructive pulmonary disease) Brother Lung cancer Brother Lung cancer Heart disease Defibrillator in place; Sister No problems noted. Sister Asthma Sister No problems noted. Son Muscular dystrophy Son No problems noted. Daughter No problems noted. Daughter No problems noted. Daughter No problems noted. 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 Feels Safe at Home: Yes Diet: regular caffeine: Yes (2-3 cups/day) during the past year weight has: remained stable Assistive Devices: Cane, CPAP, Hospital Bed, Oxygen - at Night, Walker and Wheelchair Allergies Allergies Allergy/AdvReac Type Severity Reaction Status Date / Time adhesive Allergy Intermediate ADHESIVE Verified 12/06/23 18:30 TAPE -- BLISTERS cetirizine Allergy Intermediate SORES IN Verified 12/06/23 18:30 MOUTH, HEAD CONGESTION dicloxacillin Allergy Intermediate MOUTH SORE Verified 12/06/23 18:30 erythromycin base Allergy Intermediate SORES IN Verified 12/06/23 18:30 MOUTH rifampin Allergy Intermediate elevated Verified 12/06/23 18:30 LFT's codeine AdvReac Mild NAUSEA Verified 12/06/23 18:30 doxycycline AdvReac Mild NAUSEA Verified 12/06/23 18:31 morphine AdvReac Mild "MAKES ME Verified 12/06/23 18:31 FEEL LOOPY" tetracycline AdvReac Mild NAUSEA Verified 12/06/23 18:31 NSAIDS (Non-Steroidal AdvReac Due to Verified 12/06/23 18:31 Anti-Inflamma kidney problems tramadol [From Ultra] AdvReac Nausea Verified 12/06/23 18:31 Home Meds Home Medications Medication Instructions Recorded Confirmed Oxygen Home #1 ea 02/28/19 03/03/22 cholecalciferol (vitamin D3) 25 25 mcg PO QAM 02/28/19 12/21/23 mcg (1,000 unit) capsule fluoxetine 20 mg capsule 20 mg PO HS 02/28/19 12/21/23 acetaminophen 500 mg tablet 1,000 mg PO Q8H PRN Pain 01/28/21 12/21/23 (Tylenol Extra Strength) albuterol sulfate 90 mcg/actuation 2 puff inhalation Q4H PRN 01/28/21 12/21/23 aerosol inhaler Shortness Of Breath Or Wheezing biotin 300 mcg tablet 300 mcg PO DAILY 01/28/21 12/21/23 gabapentin 300 mg capsule 300 mg PO TID 01/28/21 12/21/23 lorazepam 0.5 mg tablet 0.5 mg PO DAILY PRN Anxiety 01/28/21 12/21/23 diclofenac sodium 1 % topical gel 4 g topical QID PRN Pain 12/06/23 12/21/23 divalproex 250 mg tablet,extended 750 mg PO HS 12/06/23 12/21/23 release 24 hr fluticasone propionate 50 2 spray intranasal QAM PRN 12/06/23 12/21/23 mcg/actuation nasal Congestion spray,suspension oxybutynin chloride 15 mg 15 mg PO QAM 12/06/23 12/21/23 tablet,extended release 24 hr atorvastatin 20 mg tablet (Lipitor) 20 mg PO DAILY 12/21/23 12/21/23 Previous Rx's Medication Instructions Recorded magnesium chloride 64 mg 128 mg (2 x 64 mg) PO BID #60 tabs 12/13/23 (magnesium chloride) tablet,delayed release (Mag 64) Results & Data (ED) Vital Signs Vital Signs - 24 hr 12/21/23 11:13 12/21/23 12:20 12/21/23 12:23 Temperature 37.3 C Temperature Source Oral Pulse Rate 89 85 Pulse Rate [Right Finger] 85 Respiratory Rate 19 18 Respiratory Effort / Characteristics Non-Labored Spontaneous Non-Labored Respiratory Depth Normal Blood Pressure 132/66 Blood Pressure [Left Arm] 108/67 Blood Pressure Mean 88 Blood Pressure Mean [Left Arm] 80 Blood Pressure Position Lying Blood Pressure Position [Left Arm] Lying Pulse Oximetry 96 92 Oxygen Delivery Method Room Air Room Air Sepsis Recent Fever Within 48 Hours No Sepsis New/Unexplained Change in Mental Status No Sepsis Action Taken by Nursing No Action Required 12/21/23 12:23 12/21/23 14:45 Temperature Temperature Source Pulse Rate 85 Pulse Rate [Right Finger] 85 Respiratory Rate 18 16 Respiratory Effort / Characteristics Respiratory Depth Blood Pressure Blood Pressure [Left Arm] 118/60 Blood Pressure Mean Blood Pressure Mean [Left Arm] 79 Blood Pressure Position Blood Pressure Position [Left Arm] Pulse Oximetry 92 97 Oxygen Delivery Method Room Air Sepsis Recent Fever Within 48 Hours Sepsis New/Unexplained Change in Mental Status Sepsis Action Taken by Nursing Laboratory Data Attestation: I reviewed the patient's lab results. 12/21/23 Unknown 12/21/23 Unknown Lab Results 12/21/23 12/21/23 Range/Units 13:49 13:50 Potassium 3.8 (3.5-5.1) mmol/L Osmolality 286 (280-300) mOsm/kg AST 11 L (13-39) U/L Administered Medications Acetaminophen (Acetaminophen 500 Mg Tab) 1,000 mg PO Q8H [facility] Stop: 01/20/24 17:59 Last Admin: 12/21/23 19:07 Dose: Not Given Documented By: ENS Discontinued Medications Dexamethasone Sodium Phosphate (DexamethasonePf 10 Mg/Ml Vial) 10 mg IV NOW ONE Stop: 12/21/23 11:30 Last Admin: 12/21/23 12:00 Dose: 10 mg Documented By: MIREYA Acetaminophen (Ofirmev) 1,000 mg in 100 mls @ 400 mls/hr IV NOW STA Stop: 12/21/23 11:43 Last Infusion: 12/21/23 12:40 Dose: Infused Documented By: Admin: 12/21/23 12:00 Dose: 400 mls/hr Documented By: MIREYA Ioversol (Optiray 320 125ml) 120 ml IV ONCE ONE Stop: 12/21/23 13:16 Last Admin: 12/21/23 13:15 Dose: 120 ml Documented By: RYAN Imaging Data Radiologist's Impression: Chest X-Ray 12/21/23 11:24 XR chest 1V portable CLINICAL HISTORY: Chest pain, nonspecific TECHNIQUE: Single frontal radiograph of the chest was obtained. Comparison: Comparison is made to chest radiograph 12/06/2023 FINDINGS: A port catheter is seen. Cardiomegaly is noted. The aortic arch is calcified. The lungs are clear. No evidence of pleural effusion or pneumothorax. IMPRESSION: No acute chest disease. Cardiomegaly is noted. ACT 112: Negative or not required by law. Electronically signed by: Uche Hollins M.D. 12/21/2023 11:48 AM Shoulder X-Ray 12/21/23 11:29 XR shoulder RT min 2V routine CLINICAL HISTORY: Right shoulder pain. COMPARISON STUDY: None. FINDINGS: No fracture or dislocation within the right shoulder. The right clavicle is intact. A right Port-A-Cath terminates in the SVC. A 1 cm calcification at the distal supraspinatus tendon consistent with a calcific tendinitis. Mild to moderate osteoarthritis at the acromioclavicular and glenohumeral joints. IMPRESSION: 1. No acute fracture or dislocation within the right shoulder. 2. Supraspinatus calcific tendinitis. 3. Poed-fl-bugtyxrw osteoarthritis. ACT 112: Negative or not required by law. Electronically signed by: Jv Busby M.D. 12/21/2023 12:[address] 12/21/23 12:45 CT head/brain wo con CLINICAL HISTORY: ?R lower face weakness, R shoulder pain?weak Technique: Contiguous axial CT images of the head were acquired from the base of the skull to the vertex without intravenous contrast administration. Images were viewed in brain, subdural and bone windows. Automated dose lowering techniques and/or adjustment according to patient size were utilized for this exam. Comparison: Comparison is made to CT head 12/06/2023 Findings: The ventricles, basal cisterns, and cerebral sulci are normal. There is no acute intracranial hemorrhage or evidence of acute territorial infarction. Neither mass effect, shift of the midline structures, nor abnormal extra-axial fluid collections are shown. Imaged portions of the paranasal sinuses and mastoid air cells are clear. The orbits appear normal. There are no acute fractures of the calvaria or scalp swelling. Impression: No acute intracranial hemorrhage, no evidence of acute territorial infarction or other acute intracranial disease process. ACT 112: Negative or not required by law. Electronically signed by: Uche Hollins M.D. 12/21/2023 1:32 PM Head CTA 12/21/23 12:45 CT angio head w con CLINICAL HISTORY: 78 years-old Female with ?R lower face weakness, R shoulder pain?weak. Acute strokelike symptoms. COMPARISON STUDY: CTA neck of same day, head CT 12/06/2023 TECHNIQUE: Following the IV administration of 120 mL of Optiray, CT angiogram of the brain was performed from the skull base to the vertex. Images are reviewed in the axial, sagittal, and coronal planes. 3-D MIPS images are created and assessed. IV contrast was administered without complication. All measurements were obtained according to NASCET criteria. A dose lowering technique was utilized adhering to the principles of ALARA. FINDINGS: CT ANGIOGRAM OF THE BRAIN: The imaged bilateral internal carotid arteries are patent. The bilateral anterior and middle cerebral arteries are also patent. The vertebrobasilar system and posterior cerebral arteries are widely patent. Tortuous basilar artery. There is no aneurysm, high-grade stenosis, or proximal branch occlusion identified. Dural sinuses appear patent. Involutional changes with chronic microvascular ischemic disease. Chronic appearing subcentimeter left cerebellar lacunar infarct. IMPRESSION: Unremarkable CTA of the head. ACT 112: Negative or not required by law. The above report was generated using voice recognition software. It may contain grammatical, syntax or spelling errors. Electronically signed by: Yony Flowers M.D. 12/21/2023 1:34 PM Neck CTA 12/21/23 12:45 NECK CTA HISTORY: ?R lower face weakness, R shoulder pain?weak TECHNIQUE: Multiaxial CT images of the neck were performed following the intravenous administration of contrast to evaluate the major cervical vessels. 3D/MIP images were also obtained. Sagittal and coronal reformats were reviewed. All measurements were calculated based on NASCET criteria. A dose lowering technique was utilized adhering to the principles of ALARA. COMPARISON STUDY: None. FINDINGS: The aortic arch and proximal great vessels are widely patent. There is no significant stenosis, occlusion, or dissection identified within the bilateral common carotid, internal carotid, or vertebral arteries. Partially visualized right jugular catheter. Left chest wall posttreatment changes again noted. Mild calcified plaque within the bilateral carotid bifurcations. Mild irregularity within the mid internal carotid arteries without significant stenosis. This suggests fibromuscular dysplasia. IMPRESSION: 1. No significant stenosis, occlusion, or dissection identified within the carotid or vertebral arteries. 2. Mild irregularity the mid internal carotid arteries suggestive of fibromuscular dysplasia. ACT 112: Negative or not required by law. Electronically signed by: Jv Busby M.D. 12/21/2023 1:56 PM Discharge Plan Visit Data Chief Complaint: Arm Pain Stated Complaint: R SHOULDER & ARM PAIN ED Provider: Sean Contreras Discharge Problem: Hyponatremia, Generalized weakness, Facial droop, Calcific tendonitis of right shoulder Patient Disposition: Admitted As Inpatient Discharge Instructions Interventions: ED Discharge Assessment Last Done: 12/21/23 18:59
--- NOTE | 2023-12-21 11:49 | XRay Report ---
XR chest 1V portable CLINICAL HISTORY: Chest pain, nonspecific TECHNIQUE: Single frontal radiograph of the chest was obtained. Comparison: Comparison is made to chest radiograph 12/06/2023 FINDINGS: A port catheter is seen. Cardiomegaly is noted. The aortic arch is calcified. The lungs are clear. No evidence of pleural effusion or pneumothorax. IMPRESSION: No acute chest disease. Cardiomegaly is noted. ACT 112: Negative or not required by law. Electronically signed by: Uche Hollins M.D. 12/21/2023 11:48 AM
[2023-12-21] MEDS: ACETAMINOPHEN 1,000 MG/100 ML VIAL IV STA (12:00)
[2023-12-21] MEDS: dexAMETHasone**PF** 10 MG/ML VIAL IV ONE (12:00)
--- NOTE | 2023-12-21 12:18 | XRay Report ---
XR shoulder RT min 2V routine CLINICAL HISTORY: Right shoulder pain. COMPARISON STUDY: None. FINDINGS: No fracture or dislocation within the right shoulder. The right clavicle is intact. A right Port-A-Cath terminates in the SVC. A 1 cm calcification at the distal supraspinatus tendon consisten t with a calcific tendinitis. Mild to moderate osteoarthritis at the acromioclavicular and glenohumer al joints. IMPRESSION: 1. No acute fracture or dislocation within the right shoulder. 2. Supraspinatus calcific tendinitis. 3. Nfzh-og-lvmizejw osteoarthritis. ACT 112: Negative or not required by law. Electronically signed by: Jv Busby M.D. 12/21/2023 12:17 PM
[2023-12-21 12:30] LABS: Basophils # (auto) 0.02 K/uL (0.00-0.20); Basophils % (auto) 0.2 %; Eosinophils # (auto) 0.01 K/uL (0.00-0.50); Eosinophils % (auto) 0.1 %; Hematocrit (blood only) 28.2 % (37.0-47.0); Immature Granulocytes # (auto) 0.02 K/uL (0.01-0.20); Immature Granulocytes % (auto) 0.2 %; Lymphocytes # (auto) 0.72 K/uL (1.20-3.40); Lymphocytes % (auto) 7.6 %; Mean Corpuscular Hemoglobin 30.8 pg (25.0-34.0); Mean Corpuscular Hgb Conc 35.5 g/dL (32.0-36.0); Mean Corpuscular Volume 86.8 fL (80.0-100.0); Mean Platelet Volume 12.4 fL (9.4-12.4); Monocytes # (auto) 1.48 K/uL (0.11-0.59); Monocytes % (auto) 15.6 %; Neutrophils # (auto) 7.26 K/uL (1.40-6.50); Neutrophils % (auto) 76.3 %; Platelet Count 152 K/uL (130-400); RDW Coefficient of Variation 14.2 % (11.5-14.5); RDW Standard Deviation 45.4 fL (36.4-46.3); Red Blood Count 3.25 M/uL (4.20-5.40); White Blood Count 9.51 K/ul (4.8-10.8)
[2023-12-21 12:55] LABS: Alanine Aminotransferase 6 U/L (7-52); Albumin Globulin Ratio 0.9 (0.9-2); Albumin Level 3.7 gm/dl (3.4-5.0); Alkaline Phosphatase 36 U/L (34-104); Anion Gap 6 (3-11); BUN Creatinine Ratio 41.9 (10-20); Bilirubin,Total 0.5 mg/dl (0.2-1.0); Blood Urea Nitrogen 39 mg/dl (6-23); Calcium 9.9 mg/dl (8.6-10.3); Carbon Dioxide 37 mmol/L (21-32); Chloride 86 mmol/L (98-107); Creatinine Clr Calc Pharmacy 49.2 ml/min; Est GFR (African American) 67.3 ml/min; Glucose 114 mg/dl (70-99(Fasting)); INR 0.9 (0.9-1.1); Lipase 12 U/L (11-82); Magnesium 1.7 mg/dl (1.7-2.4); Phosphorus 2.7 mg/dl (2.5-4.9); Prothrombin Time 10.3 Seconds (9.0-12.0); Sodium 129 mmol/L (136-145); Total Protein 7.7 gm/dl (6.0-8.3); Troponin I High Sensitivity 12.6 pg/ml (0-14)
[2023-12-21] MEDS: OPTIRAY 320 125ml IV ONE (13:15)
--- NOTE | 2023-12-21 13:21 | Electrocardiogram Report ---
Test Reason : Blood Pressure : / mmHG Vent. Rate : 085 BPM Atrial Rate : 085 BPM P-R Int : 174 ms QRS Dur : 098 ms QT Int : 386 ms P-R-T Axes : 010 033 032 degrees QTc Int : 459 ms Normal sinus rhythm Minimal voltage criteria for LVH, may be normal variant ( Preet product ) Borderline ECG When compared with ECG of 06-DEC-2023 14:19, No significant change was found Confirmed by Wilian Stockton ([id number]) on 12/21/2023 1:20:45 PM Referred By: REFERRED SELF Confirmed By:Wilian Stockton
--- NOTE | 2023-12-21 13:33 | CT Scan Report ---
CT head/brain wo con CLINICAL HISTORY: ?R lower face weakness, R shoulder pain?weak Technique: Contiguous axial CT images of the head were acquired from the base of the skull to the carmen papito without intravenous contrast administration. Images were viewed in brain, subdural and bone windo ws. Automated dose lowering techniques and/or adjustment according to patient size were utilized for this exam. Comparison: Comparison is made to CT head 12/06/2023 Findings: The ventricles, basal cisterns, and cerebral sulci are normal. There is no acute intracranial hemorrh age or evidence of acute territorial infarction. Neither mass effect, shift of the midline structures , nor abnormal extra-axial fluid collections are shown. Imaged portions of the paranasal sinuses and mastoid air cells are clear. The orbits appear normal. There are no acute fractures of the calvaria or scalp swelling. Impression: No acute intracranial hemorrhage, no evidence of acute territorial infarction or other acute intracra nial disease process. ACT 112: Negative or not required by law. Electronically signed by: Uche Hollins M.D. 12/21/2023 1:32 PM
--- NOTE | 2023-12-21 13:36 | CT Scan Report ---
CT angio head w con CLINICAL HISTORY: 78 years-old Female with ?R lower face weakness, R shoulder pain?weak. Acute str okelike symptoms. COMPARISON STUDY: CTA neck of same day, head CT 12/06/2023 TECHNIQUE: Following the IV administration of 120 mL of Optiray, CT angiogram of the brain was performed from the skull base to the vertex. Arline ges are reviewed in the axial, sagittal, and coronal planes. 3-D MIPS images are created and assessed . IV contrast was administered without complication. All measurements were obtained according to NASC ET criteria. A dose lowering technique was utilized adhering to the principles of ALARA. FINDINGS: CT ANGIOGRAM OF THE BRAIN: The imaged bilateral internal carotid arteries are patent. The bilateral anterior and middle cerebral arteries are also patent. The vertebrobasilar system and posterior cerebral arteries are widely lemus nt. Tortuous basilar artery. There is no aneurysm, high-grade stenosis, or proximal branch occlusion identified. Dural sinuses appear patent. Involutional changes with chronic microvascular ischemic disease. Chronic appearing subcentimeter lef t cerebellar lacunar infarct. IMPRESSION: Unremarkable CTA of the head. ACT 112: Negative or not required by law. The above report was generated using voice recognition software. It may contain grammatical, syntax o r spelling errors. Electronically signed by: Yony Flowers M.D. 12/21/2023 1:34 PM
--- NOTE | 2023-12-21 13:58 | CT Scan Report ---
NECK CTA HISTORY: ?R lower face weakness, R shoulder pain?weak TECHNIQUE: Multiaxial CT images of the neck were performed following the intravenous administration o f contrast to evaluate the major cervical vessels. 3D/MIP images were also obtained. Sagittal and cor onal reformats were reviewed. All measurements were calculated based on NASCET criteria. A dose low ering technique was utilized adhering to the principles of ALARA. COMPARISON STUDY: None. FINDINGS: The aortic arch and proximal great vessels are widely patent. There is no significant sten osis, occlusion, or dissection identified within the bilateral common carotid, internal carotid, or v ertebral arteries. Partially visualized right jugular catheter. Left chest wall posttreatment changes again noted. Mild calcified plaque within the bilateral carotid bifurcations. Mild irregularity with in the mid internal carotid arteries without significant stenosis. This suggests fibromuscular dyspla sylvia. IMPRESSION: 1. No significant stenosis, occlusion, or dissection identified within the carotid or vertebral arter ies. 2. Mild irregularity the mid internal carotid arteries suggestive of fibromuscular dysplasia. ACT 112: Negative or not required by law. Electronically signed by: Jv Busby M.D. 12/21/2023 1:56 PM
[2023-12-21 14:33] LABS: Potassium 3.8 mmol/L (3.5-5.1)
--- OUTSIDE RECORDS SUMMARY | 2023-12-21 15:24 | External Medical Summary | Summary of Care ---
Author Name Unknown Organization [facility] Address [address] [place] [address] Phone [phone] Care Team Providers Care Optics Engineer Name Role Phone Jose M Seth MD Primary Care Provider + Reason for Visit * Reason Onset Date Comments Test Results 12/19/2023 Encounter Details Date Type Department Care Team (Late st Contact Info) Description 12/19/2023 Telephone General Internal Medicine [facility] [address] [facility] [place] [id number] Jose M Seth MD [address] [place] [address] Test Results Allergies Active Allergy Reactions Criticality [...] as of this encounter (statuses as of 12/20/2023) Medications Medication Sig Dispensed Refills Start Date [...] needed. 100 Tab 0 Active Saline Nasal [place] 0.65 % Nasal Solution ([place] Nasal [place]) Two sprays in each nostril as needed [...] Apply to knee. 150 g 3 Active Atorvastatin Calcium 20 MG Oral [...] NOT CRUSH 100 Tablet 3 4 Active CPAP every night at bedtime. Active Gabapentin 300 MG Oral Capsule (Neurontin)Indicati [...] needed for Nausea. 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 Use as needed to use restroom. 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 30 Capsule 2 4 Active LORazepam 0.5 MG Oral Tablet (Ativan)Indications :PETER (generalized anxiety disorder) Take 1 Tablet by mouth daily as needed for Anxiety. 10 Tablet 4 Active Premarin 0.625 MG/GM Vaginal Cream (Estrogens Conjugated) Administer into the vagina once a day on Monday, Monday, and Monday only. As directed. 30 g 3 4 Active Furosemide 40 MG Oral Tablet (Lasix) Take 1 Tablet by mouth in the morning and 1 Tablet before bedtime. 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 06/21/2023 Urge incontinence 05/02/2023 Uncomplicated asthma 11/15/2022 PETER (generalized anxiety disorder) 07/14/2022 Peripheral neuropathy 07/14/2022 History of bipolar disorder 07/14/2022 History of breast cancer 11/04/2020 Isolated proteinuria 09/16/2020 Chronic diastolic heart failure 06/25/2020 Prediabetes 03/06/2020 Gastroesophageal reflux disease without esophagi [...] as of this encounter (statuses as of 12/20/2023) Resolved Problems Problem Noted Date Diagnosed Date [...] PCP: Jose M Seth MD Pharmacy: [facility] 08/09/2013 12/16/2015 Dementia 07/19/2013 2017 [...] as of this encounter (statuses as of 12/20/2023) Immunizations Name Administration Dates Next Due COVID-19 mRNA, LNP-s, No Pre serve, 2-Dose Series ([employer]) 02/18/2021,08/10/2020,07/06/2020 COVID-19, MRNA-LNP, 23-24, P F, 30 MCG/0.3 mL, 12 YRS AND ABOVE, IM ([employer]) 04/11/2023 Covid-19, Mrna, Lnp-s, Pf, B ivalent, 30 Mcg, IM, 12 yrs and above ([employer]) 03/22/2022 Pneumococcal Conjugate Vacc, 13 Valent (Prevnar) [...] Date Recorded PHQ Adult Total Score 0 12/20/2023 Hunger Vital Sign Answer Date Recorded Within [...] encounter Miscellaneous Notes * Addendum Note - Paola Llamas RN - 12/20/2023 1:51 PM EDTAddended by: PAOLA LLAMAS on: 12/20/2023 01:51 PM Modules accepted: Orders * Telephone Encounter - Paola Llamas RN - 12/20/2023 1:45 PM EDT TE with pt;s daughter Molina. She is aware to discontinue Lasix completely. She is aware to maintain 1500ml fluid restriction daily . She reports that she has a cup that contains measurements on it for accuracy. She is aware to increase protein in diet and may offer a protein shake as a supplement. She is scheduled to see Dr Seth tomorrow and she is aware to repeat blood and urine tests on Monday. Orders placed and med list updated. * Telephone Encounter - Haresh Mark MD - 12/20/2023 12:22 PM EDT The etiology of her hyponatremia was complicated and multifactorial. Sodium is low at 128 which is similar to what she had in the hospital. However renal function has declined quite a bit. Stop Lasix completely Maintain fluid restriction of 1500 mL per day Repeat renal panel again on Monday. Also do urine osmolarity serum osmolarity and urine sodium same day. Make sure she eats more solid food especially protein. It is hard to raise serum sodium in her case unless she increase her protein intake. Haresh Mark MD * Telephone Encounter - Keeley Paez LPN - 12/19/2023 4:11 PM EDT ----- Message from Patience Berrios sent at 12/18/2023 8:27 AM EDT ----- Noted pt's anemia remains stable, as does her Mg. However, her kidney function and sodium levels remain low. She is sched for f/up with nephro after her recent discharge, but not until Jan. Are we able to reach out to them to see if they can see her sooner? Or perhaps review her labs and give recommendations to the pt in the meantime? documented in this encounter Plan of Treatment Upcoming Encounters Date Type Department Care Team (Late st Contact Info) Description 12/21/2023 2:20 PM EDT Office Visit General Internal Medicine [facility] [place] [address] [facility] [place] [id number] Jose M Seth MD [address] [facility] [place] [address] 12/25/2023 1:30 PM EDT Office Visit Psychiatry, [facility] [address] [place] [address] Paty Haynes CRNP [address] [facility] [place] [address] 01/25/2024 11:00 AM EDT [facility] [address] [address] Tonya Jovel, [place] [address] [facility] [address] 01/31/2024 1:00 PM EDT Office Visit Nephrology, [facility] [address] [address] Haresh Mark MD [address] [place] [address] 04/29/2024 2:15 PM EST Office Visit Urology, [facility] [address] [place] [address] Mendel Macedo MD [address] [place] [address] 06/04/2024 3:40 PM EST Telemedicine [facility] Ctr [facility] [address] [place] [phone] Charmaine Mckeon, DO [address] [place] [address] 10/14/2024 2:00 PM EDT Nurse Only Ancillary [facility] [address] [place] [address] [place], Nurse [facility] [address] [place] [address] Scheduled Orders Name Type Priority Associated Diagnoses Orde r Schedule RENAL FUNCTION PANEL Lab Routine Hyponatremia Expected: 12/25/2023 (Approximate), Expires: 12/19/2024 OSMOLALITY, SERUM Lab Routine Hyponatremia Expected: 12/25/2023 (Approximate), Expires: 12/19/2024 OSMOLALITY, URINE Lab Routine Hyponatremia Expected: 12/25/2023 (Approximate), Expires: 12/19/2024 SODIUM, RANDOM URINE Lab Routine Hyponatremia Expected: 12/25/2023 (Approximate), Expires: 12/19/2024 Health Maintenance Due Date Last Done Comments COVID-19 Vaccine ( season) 2023 04/11/2023, 03/22/2022, 02/18/2021, Additional history exists Influenza Vaccine (FLU shot) (#1) 2024 02/07/2023, 02/08/2022, 02/08/2021, Additional history exists DXA Scan 09/20/2024 09/20/2021, 08/28, 10/23/2013, Additional history exists HbA1c 12/14/2024 12/15/2023, 07/0 12/2023, 07/13/2022, Additional history exists Depression Monitoring 12/19/2024 12/20/2023, 024 DTaP,Tdap,and Td Vaccines (3 - Td or Tdap) 03/07/2032 03/07/2022, 08/12/2010 Pneumococcal Vaccine: 65+ Years Completed 06/30/2014, 08/12/2010 RETIRED - COLONOSCOPY-EVERY 5 YRS AGES 18-100 Discontinued 04/13/2016, 09/08/2010 Zoster Vaccines Completed 06/18/2019, 02/13/2018 Diabetic Foot Exam Discontinued 04/15/2020 Diabetic Eye Exam Discontinued 05/01/2023, , 04/28/2022, Additional history exists Albumin/Creatinine Ratio Discontinued , 10/18/2022, 07/17/2020, Additional history exists HPV (Gardasil) Vaccine Aged [...] as of this encounter Visit Diagnoses Diagnosis Acute hyponatremia- Primary Hyposmolality and/or hyponatremia Hyponatremia Hyposmolality and/or hyponatremia documented in this encounter Advance Directives * Full Code (Latest Code Status on File) Date Activated Date Inactivated Comments 09/24/2012 8:15 PM 10/02/2012 7:35 PM This order re flects the patients wishes and were consensually agreed upon. Care Teams Optics Engineer Relationship Specialty Start Date End Date Jose M Seth MD [address] [facility] [place] [address] PCP - General Internal Medicine 11/21/11 documented as of this encounter
--- OUTSIDE RECORDS SUMMARY | 2023-12-21 15:24 | External Medical Summary | Summary of Care ---
Author Name Unknown Organization [facility] Address [address] [place] [address] Phone [phone] Care Team Providers Care Web Operations Administrator Name Role Phone Jose M Seth MD Primary Care Provider + Reason for Visit * Reason Comments Follow Up Encounter Details Date Type Department Care Team (Late st Contact Info) Description 12/19/2023 1:15 PM EDT Office Visit Urology, [facility] [address] [facility] [address] Mendel Macedo MD [address] [place] [address] Urge incontinence*; Postmenopausal atrophic vaginitis Allergies Active Allergy Reactions Criticality Noted Date [...] as of this encounter (statuses as of 12/19/2023) Medications Medication Sig Dispensed Refills Start Date [...] needed. 100 Tab 04/15/2020 Active Saline Nasal [place] 0.65 % Nasal Solution ([place]in Nasal [place]) Two sprays in each nostril as needed [...] Apply to knee. 150 g 07/29/2022 Active Atorvastatin Calcium 20 MG Oral Tablet [...] NOT CRUSH 100 Tablet 3 2023 Active CPAP every night at bedtime. Active [...] needed for Nausea. 30 Tablet 11/20/2023 Active Furosemide 40 MG Oral Tablet (Lasix) Take 1 Tablet by mouth in the morning and 1 Tablet before bedtime. 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 Use as needed to use restroom. 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 30 Capsule 2 12/19/2023 Active LORazepam 0.5 MG Oral Tablet (Ativan)Indications: PETER (generalized anxiety disorder) Take 1 Tablet by mouth daily as needed for Anxiety. 10 Tablet 12/19/2023 Active Premarin 0.625 MG/GM Vaginal Cream (Estrogens Conjugated) Administer into the vagina once a day on Monday, Monday, and Monday only. As directed. 30 g 3 12/20/2023 Active documented as of this encounter (statuses as of 12/19/2023) Active Problems Problem Noted Date Diagnosed Date [...] -- AHI 10.7, <89% 128 mins [facility] Returned machine Jun 2013 Nocturnal hypoxemia 06/18/2012 Overview: 2 LPM [facility] 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 documented as of this encounter (statuses as of 12/19/2023) Resolved Problems Problem Noted Date Diagnosed Date [...] as of this encounter (statuses as of 12/19/2023) Immunizations Name Administration Dates Next Due COVID-19 mRNA, LNP-s, No Pre serve, 2-Dose Series ([employer]) 02/18/2021,08/10/2020,07/06/2020 COVID-19, MRNA-LNP, 23-24, P F, 30 MCG/0.3 mL, 12 YRS AND ABOVE, IM ([facility]) 04/11/2023 Covid-19, Mrna, Lnp-s, Pf, B ivalent, 30 Mcg, IM, 12 yrs and above ([employer]) 03/22/2022 Pneumococcal Conjugate Vacc, 13 Valent (Prevnar) [...] Progress Notes * Mendel Macedo MD - 12/19/2023 1:24 PM EDT [id number] PCP: JOSE M SETH [facility] [address] [place], [place] [id number] Kathy Mccoy is a 78 year old female, who presents for f/u of her voiding symptoms. She is here with daughter. She notes dehydration and admission due to depakote compliance issues. She notes still using 4-5 ppd. patient's difficulties with conflicting recommendations regarding fluid intake. Persistent renal insufficiency is appreciated. Patient has an upcoming appointment visit with her primary care physician in 2 days' time. Urinary Incontinence: Presented to Urology April 2023. Patient is being seen for urinary incontinence. Problem has been present for years. Severity is moderate. Problem is about the same. Urinary incontinence is urge incontinence. They are using 3-5 pads a day. They have used inuzljguzy35 mg XL mg. Did not try Myrbetriq in the past. Cystoscopy Oct 2022 showed atrophic vaginitis, history of menopause in the 50s, endometrial malignancy. Previously provided vaginal estrogen cream, some anxiety regarding the use. Renal US Dec 2021: IMPRESSION 1. 1.0 cm simple right renal cyst. Creatinine Results: Lab Results Component Value Date/Time CREATININE - [facility] 1.5 (H) 12/15/2023 03:36 PM CREATININE - [facility] 0.9 12/04/2023 10:01 AM CREATININE - [facility] 0.8 08/15/2023 11:15 AM CREATININE - [facility] 0.8 06/22/2020 10:11 AM CREATININE - [facility] 0.7 06/01/2020 09:04 AM CREATININE - [facility] 0.8 05/11/2020 08:04 AM CREATININE TANIA 84 04/07/2017 02:14 PM CREATININE, RANDOM URINE - [facility] 103 12/15/2023 03:36 PM CREATININE, RANDOM URINE - [facility] 435 10/18/2022 03:09 PM CREATININE, RANDOM URINE - [facility] 115 07/17/2020 11:02 AM CREATININE, RANDOM URINE - [facility] 91 03/07/2014 11:27 AM CREATININE, RANDOM URINE - [facility] 145 09/26/2012 11:26 PM CREATININE-[facility]IDE [facility] 0.75 08/05/2016 12:00 AM CREATININE[facility] 0.92 12/12/2015 12:00 AM CREATININE-[facility] 0.81 12/10/2015 12:00 AM Current Outpatient Medications Medication Sig Dispense Refill [...] hours as needed. 100 Tab0 Saline Nasal [place] 0.65 % Nasal Solution (Hardin Nasal [place]) Two sprays in each nostril as needed [...] with meals. (Patient not taking: Reported on 12/15/2023) Diclofenac Sodium 1 % External Gel (Voltaren) Apply topically to affected area 4 times a day. Applyto knee. 150 g 0 COVID-19 mRNA Vaccine 12 years and above [employer] 30 MCG/0.3 ML IM SUSP Inject into a large muscle. (Patient not taking: Reported on 12/15/2023) 0.3 mL 0 Atorvastatin Calcium 20 MG Oral Tablet [...] MORNING, DO NOT CRUSH 100 Tablet 3 CPAP every night at bedtime. Gabapentin 300 MG Oral Capsule (Neurontin) Take 1 Capsule by mouth in the morning and 1 Capsule at noon and 1 Capsule before bedtime. 270 Capsule 3 Ondansetron HCl 4 MG Oral Tablet (Zofran) Take 1 Tablet by mouth every 12 hours as needed for Nausea. 30 Tablet 0 Furosemide 40 MG Oral Tablet (Lasix) Take 1 Tablet by mouth in the morning and 1 Tablet before bedtime. Commode Bedside Bedside commode. Use as needed to use restroom. 1 Each 0 FLUoxetine HCl 20 MG Oral Capsule (PROzac) [...] Pre-filled Pod No Family History Problem Relation Name Age of Onset Heart Disorder Mother triple bypass Blood Disorder Mother gout Eye Problems Mother Glaucoma Cervical Cancer Mother Lung cancer Father Heart Disorder Sister Dionna Murmur Asthma Sister Lucia No Known Problems Sister Myra COPD Brother Mane emphysema copd Emphysema Brother Mane Lung cancer Brother Mane w/ brain mets Heart disease Brother Mane COPD Brother Sammy Lung cancer Brother Sammy Emphysema Brother Sammy Heart attack Brother Sammy Ear Problems Daughter Allergies Daughter Dairy allergy Stroke Uncle (Unspecified) Allergies Daughter Allergy to nuts and dairy Allergies Daughter Food allergies, gluten sensitivity Heart disease Brother Sina Heart Disorder Brother Sina Defibrillator Diabetes No significant family history Retinal detachment No significant family history Patient denies family hx of AMD retinal detachments or blindness Past Surgical History: Procedure Laterality Date ARTHROPLASTY KNEE TOTAL 01/[address] ríos BX LYMPH NODE DEEP AXIL Left 12/30/2020 BIOPSY LYMPH NODE DEEP AXILLARY OPEN performed by Vijaya Samano MD at [facility] CARPAL TUNNEL SURGERY 1996 left and right CATARACT SURGERY,COMPLEX Bilateral 10/2014 CHEMOTHERAPY 04/20/2020 completed 10/28/2020 neoadjuvant chemotherapy Adrianmycin & Cytoxan. Followed by 11 of 12 cycles of Taxol COLONOSCOPY W/ BIOPSY (RECTUM) 09/08/2010 polyp x1 , skin tags, path repeat in 5 years COLONOSCOPY, DIAGNOSTIC (RECTUM) 04/13/2016 normal/[facility] EGD, FLEXIBLE, DIAGNOSTIC 04/13/2016 acid reflux/[facility] EGD, FLEXIBLE, DIAGNOSTIC 02/24/2022 normal / ESOPHAGOGASTRODUODENOSCOPY (EGD), FLEXIBLE, TRANSORAL, DIAGNOSTIC performed by Rober Redding MD at ENDOSCOPY [facility] IDENTIFY SENTINEL NODE, RADIOACTIVE TRACER Left 12/30/2020 INJECTION PROCEDURE FOR IDENTIFICATION SENTINEL NODE performed by Vijaya Samano MD at [facility] INFORMATION 11/13/2012 11/13/2012 insertion of A-port - left shoulder [facility] Dr. Vijaya Samano MASTECTOMY, PARTIAL Left 12/30/2020 MASTECTOMY PARTIAL performed by Vijaya Samano MD at [facility] PROCEDURE - GENERAL PROCEDURE - GENERAL N/A 04/08/2020 iNSERTION OF VENOUS ACCESS(CHEST) RADIATION THERAPY Left 04/13/2021 6640 cGy to left breast, supraclavicular area, and axilla REMOVE GALLBLADDER 1985 REPAIR INITIAL INGUINAL HERNIA REDUCIBLE AGE 5 OR MORE 2006 TOTAL ABD HYSTERECTOMY W/WO REMOVAL OF TUBE(S) 09/24/2012 TOTAL ABDOMINAL HYSTERECTOMY WITH OR WITHOUT TUBES AND OVARIES performed by Jacey Jewell MD at [facility] TOTAL HIP REPLACEMENT & PROSTHESIS Left [...] apnea, obstructive Patient Active Problem List Diagnosis Obstructive sleep [...] disorder, recurrent, unspecified (HCC) Prediabetes Chronic diastolic heart failure (HCC) Isolated proteinuria History of breast cancer PETER (generalized anxiety disorder) Peripheral neuropathy History of bipolar disorder Uncomplicated asthma Urge incontinence Chemotherapy-induced neuropathy (HCC) Mild intermittent asthma without complication 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 Appearance: She is not ill-appearing or toxic-appearing. Comments: Using walker HENT: Head: Normocephalic. Right Ear: External ear normal. Left Ear: External ear normal. Nose: Nose normal. Mouth/Throat: Mouth: Mucous membranes are moist. Eyes: Extraocular Movements: Extraocular movements intact. Cardiovascular: Pulses: Normal pulses. Pulmonary: Effort: Pulmonary effort is normal. No respiratory distress. Abdominal: General: There is no distension. Skin: Coloration: Skin is not pale. Neurological: Motor: Weakness present. Gait: Gait abnormal. Psychiatric: Thought Content: Thought content normal. Impression/Plan: 78-year-old female with a history of urinary incontinence. Findings reviewed with the patient at length. Will avoid changes to her medication seen her ongoingmedical issues. The possibility of using vaginal estrogens is again reviewed. After discussion of risks and benefits patient wishes to try medication. Prescription sent to the patient's pharmacy. Will see back in 4 months to check on progress. Continued renal insufficiency appreciated, will review with primary care at her visit in a couple of days' time. Above content is personally reviewed. Patient vocalizes good understanding of the treatment plan. Mendel Macedo MD 1:24 PM 12/19/2023 documented in this encounter Nursing Notes * Loree Vaca LPN - 12/19/2023 1:23 PM EDT Chief Complaint Patient presents with Follow Up Pt presents for OAB, last PTNS was 11/08/23. Pt states she is now on 40 mg lasix BID. Pt states she is setting alarms in the night to get up to void. Since starting that she has not had any accidents.States she has an accident when she is trying to make it to the restroom, she has trouble holding her urine. Taking oxybutynin documented in this encounter Plan of Treatment Upcoming Encounters Date Type Department Care Team (Late st Contact Info) Description 12/21/2023 2:20 PM EDT Office Visit General Internal Medicine [facility] [place] [address] [facility] [place] [address] Jose M Seth MD [address] [facility] [address] [facility] [address] 12/25/2023 1:30 PM EDT Office Visit Psychiatry, [facility] [address] [facility] [place] [address] Paty Haynes CRNP [address] [facility] [place] [address] 01/25/2024 11:00 AM EDT Telemedicine Genetics [facility], [address] [address] Tonya Jovel, MS [address] [place] [address] 01/31/2024 1:00 PM EDT Office Visit Nephrology, [facility] [address] [address] Haresh Mark MD 200 [facility] [place] [address] 04/29/2024 2:15 PM EST [facility] [address] [place] [address] Mendel Macedo MD [address] [place] [id number] 06/04/2024 3:40 PM EST Telemedicine Sleep Disorders Ctr [facility] [address] [place] [phone] Charmaine Mckeon DO [address] [place] [address] 10/14/2024 2:00 PM EDT Nurse Only Ancillary [place] [address] [place] [address] Shilpa Nurse Annual Wellness Sc[facility] [address] [place] [address] Health Maintenance Due Date Last Done Comments COVID-19 Vaccine ( season) 2023 04/11/2023, 03/22/2022, 02/18/2021, Additional history exists Influenza Vaccine (FLU shot) (#1) 2024 02/07/2023, 02/08/2022, 02/08/2021, Additional history exists DXA Scan 09/20/2024 09/20/2021, 08/28, 10/23/2013, Additional history exists Depression Monitoring 11/12/2024 11/13/2023, 024 HbA1c 12/14/2024 12/15/2023, 07/0 12/2023, 07/13/2022, Additional history exists DTaP,Tdap,and Td Vaccines (3 - Td or Tdap) 03/07/2032 03/07/2022, 08/12/2010 Pneumococcal Vaccine: 65+ Years Completed 06/30/2014, 08/12/2010 RETIRED - COLONOSCOPY-EVERY 5 YRS AGES 18-100 Discontinued 04/13/2016, 09/08/2010 Zoster Vaccines Completed 06/18/2019, 02/13/2018 Diabetic Foot Exam Discontinued 04/15/2020 Diabetic Eye Exam Discontinued 05/01/2023, , 04/28/2022, Additional history exists Albumin/Creatinine Ratio Discontinued 024, 10/18/2022, 07/17/2020, Additional history exists HPV (Gardasil) [...] encounter Visit Diagnoses Diagnosis Urge incontinence- Primary Postmenopausal atrophic vaginitis documented in this encounter Advance Directives * Full Code (Latest Code Status on File) Date Activated Date Inactivated Comments 09/24/2012 8:15 PM 10/02/2012 7:35 PM This order re flects the patients wishes and were consensually agreed upon. Care Teams Web Operations Administrator Relationship Specialty Start Date End Date Jose M Seth MD 200 [facility] [place] [address] PCP - General Internal Medicine 11/21/11 documented as of this encounter
--- OUTSIDE RECORDS SUMMARY | 2023-12-21 15:24 | External Medical Summary | Summary of Care ---
Author Name Unknown Organization [facility] Address [address] [place] [address] Phone [phone] Care Team Providers Care Portrait Studio Photographer Name Role Phone Jose M Seth MD Primary Care Provider + Encounter Details Date Type Department Care Team (Late st Contact Info) Description 12/19/2023 Telephone General Internal Medicine [facility] 200 [facility] [place] [phone] Jose M Seth MD 200 [place] [address] Allergies Active Allergy Reactions Criticality Noted Date [...] needed. 100 Tab 04/15/2020 Active Saline Nasal [place] 0.65 % Nasal Solution ([place] Nasal [place]) Two sprays in each nostril as needed [...] Active Commode BedsideIndications:C hronic diastolic heart failure (HCC),meterman current use of diuretic Bedside commode. Use [...] M Seth MD Pharmacy: Maricruz Foster [facility] 08/09/2013 12/16/2015 Dementia 07/19/2013 2017 Encounter [...] mRNA, LNP-s, No Pre serve, 2-Dose Series ([employer]) 02/18/2021,08/10/2020,07/06/2020 COVID-19, MRNA-LNP, 23-24, P F, 30 [...] encounter Miscellaneous Notes * Telephone Encounter - Haresh Mark MD [...] EDT Office Visit General Internal Medicine [facility] [address] [address] Jose M Seth MD [address] [address] 12/25/2023 1:30 PM EDT Office Visit Psychiatry, [facility] Massey [address] [address] Paty Haynes CRNP [address] [place] [address] 01/25/2024 11:00 AM EDT Telemedicine Genetics [facility], [facility] [address] [place] [address] Tonya Jovel, MS [address] [place] [address] 01/31/2024 1:00 PM EDT Office Visit Nephrology, [facility] [address] [facility] [place] [address] [place] [address] Haresh Mark MD 200 [facility] [place] [address] 04/29/2024 2:15 PM EST Office Visit Urology, [facility] 132 [facility] [place] [address] Mendel Macedo MD [address] [place] [phone] 06/04/2024 3:40 PM EST Telemedicine Sleep Disorders [facility] 132 [facility] [place] [phone] Charmaine Mckeon DO 132 [facility] [place] [address] 10/14/2024 2:00 PM EDT Nurse Only Ancillary [facility] State Ailyn Massey [address] [address] Shilpa, Nurse Annual Wellness [facility] [address] [address] Health Maintenance Due Date Last Done Comments COVID-19 Vaccine (2022-24 season) 2023 04/11/2023, 03/22/2022, 02/18/2021, Additional history exists Influenza Vaccine (FLU shot) (#1) 2024 02/07/2023, 02/08/2022, 02/08/2021, Additional history exists DXA Scan 09/20/2024 09/20/2021, 2 09/2021, 10/23/2013, Additional history exists HbA1c 12/14/2024 12/15/2023, [...] and were consensually agreed upon. Care Teams Portrait Studio Photographer Relationship Specialty Start Date End Date Jose M Seth MD [address] [place], [place] [address] PCP - General Internal Medicine 11/21/11 documented as of this encounter
--- OUTSIDE RECORDS SUMMARY | 2023-12-21 15:25 | External Medical Summary ---
Author Name Unknown Address Unknown Organization K01:LAB[facility] - [address] [place] [address] Laboratory Report Ordering Provider Test Date Status PIERRE IRBY 12/15/2023 15:36:42 Final Observation Date Value Abnormality Reference (Units ) Status Osmolality 12/15/2023 15:36:42 [phone] ( mOsm/kg) Final Performing Location [facility] - [address] [place] [address]
--- OUTSIDE RECORDS SUMMARY | 2023-12-21 15:25 | External Medical Summary | Summary of Care ---
Author Name Unknown Organization [facility] Address [address] [place] [address] Phone [phone] Care Team Providers Care Centerless Grinding Machine Adjuster Name Role Phone Jose M Seth MD Primary Care Provider + Reason for Visit * Reason Onset Date Comments TRIAGE 12/11/2023 Encounter Details Date Type Department Care Team (Late st Contact Info) Description 12/11/2023 Telephone Access Center, [place] [address] [facility] *DO NOT REMOVE THIS DEPARTMENT* [place] [address] Services, Scheduling [address] [place] [address] TRIAGE Allergies Active Allergy Reactions Criticality Noted Date [...] as of this encounter (statuses as of 12/15/2023) Medications Medication Sig Dispensed Refills Start Date [...] needed. 100 Tab 04/15/2020 Active Saline Nasal [place] 0.65 % Nasal Solution ([place] Nasal [place]) Two sprays in each nostril as needed [...] as of this encounter (statuses as of 12/15/2023) Active Problems Problem Noted Date Diagnosed Date [...] as of this encounter (statuses as of 12/15/2023) Resolved Problems Problem Noted Date Diagnosed Date [...] Seth MD Pharmacy: Maricruz Foster [facility] 08/09/2013 12/16/2015 Dementia 07/19/2013 2017 Encounter for [...] as of this encounter (statuses as of 12/15/2023) Immunizations Name Administration Dates Next Due COVID-19 mRNA, LNP-s, No Pre serve, 2-Dose Series ([employer]) 02/18/2021,08/10/2020,07/06/2020 COVID-19, MRNA-LNP, 23-24, P F, 30 MCG/0.3 mL, 12 YRS AND ABOVE, IM ([facility]) 04/11/2023 Covid-19, Mrna, Lnp-s, Pf, B [...] Telephone Encounter - Michael Meza OSA - 12/15/2023 10:02 AM EDT Pt is scheduled at 12/18 at 1:15 pm. Pt is aware. * Telephone Encounter - Michelle Cardozo OSA - 12/12/2023 8:11 AM EDT Lmom to return call * Telephone Encounter - Ventura Diallo OSA - 12/11/2023 4:50 PM EDT Pt isn't happy that she would have to wait til April to reschedule her appt with Dr. Macedo and would like to speak to someone about being seen sooner than his first available. Thank You Ventura documented in this encounter Plan of Treatment Upcoming Encounters Date Type Department Care Team (Late st Contact Info) Description 12/15/2023 2:20 PM EDT Office Visit General Internal Medicine [facility] [address] [place] [address] Patience Berrios PA-C 200 [facility] [place] [address] 12/19/2023 1:15 PM EDT Office Visit Urology, [facility] 132 [facility] [place] [address] Mendel Macedo MD [address] [place] [address] 12/21/2023 2:20 PM EDT Office Visit General Internal Medicine [facility] 200 [facility] [place] [address] Jose M Seth MD 200 [facility] [place] [address] 12/25/2023 1:30 PM EDT Office Visit Psychiatry, [facility] 200 [facility] [place] [address] Paty Haynes CRNP 200 [facility] [place] [address] 01/25/2024 11:00 AM EDT Telemedicine Genetics [facility], [place] [address] Tonya Jovel, MS [address] [place] [address] 06/04/2024 3:40 PM EST Telemedicine Sleep Disorders Ctr [facility] [employer] [address] [place] [phone] Charmaine Mckeon, [address] [place] [address] 10/14/2024 2:00 PM EDT Nurse Only Ancillary [facility] State Ailyn Massey 200 [facility] [place] [address] Shilpa Nurse Annual Wellness [facility] 200 [facility] [place] [address] Health Maintenance Due Date Last Done Comments [...] and were consensually agreed upon. Care Teams Centerless Grinding Machine Adjuster Relationship Specialty Start Date End Date Jose M Seth MD 200 [facility] [place], [place] [address] PCP - General Internal Medicine 11/21/11 documented as of this encounter
--- OUTSIDE RECORDS SUMMARY | 2023-12-21 15:25 | External Medical Summary | Summary of Care ---
Author Name Unknown Organization [facility] Address [address] [place] [address] Phone [phone] Care Team Providers Care Mineralogy Teacher Name Role Phone Jose M Seth MD Primary Care Provider + Reason for Visit * Reason Onset Date Comments Appointment 12/15/2023 Encounter Details Date Type Department Care Team (Late st Contact Info) Description 12/15/2023 Telephone Nephrology, [facility] [place] [address] [place] [address] Haresh Mrak MD 200 [facility] [place] [address] Appointment Allergies Active Allergy Reactions Criticality Noted [...] needed. 100 Tab 04/15/2020 Active Saline Nasal [place] 0.65 % Nasal Solution ([place] Nasal [place]) Two sprays in each nostril as needed [...] Jose M Seth MD Pharmacy: [facility] 08/09/2013 12/16/2015 Dementia 07/19/2013 2017 [...] mRNA, LNP-s, No Pre serve, 2-Dose Series ([employer]) 02/18/2021,08/10/2020,07/06/2020 COVID-19, MRNA-LNP, 23-24, P F, 30 MCG/0.3 mL, 12 YRS AND ABOVE, IM ([facility] 04/11/2023 Covid-19, Mrna, Lnp-s, Pf, [...] encounter Miscellaneous Notes * Telephone Encounter - Morenita Jacques OSA - 12/15/2023 10:05 AM EDT 12/15/23 Called patient, left message. Trying to get patient scheduled with Nephrology for hospital discharge with Dr. Mark. Please offer 01/[address] Mark at [facility]. My G message being sent out as well. Patient will need to get labs done prior to appointment. Lab orders have been placed. documented in this encounter Plan of Treatment Upcoming Encounters Date Type Department Care Team (Late st Contact Info) Description 12/15/2023 2:20 PM EDT Office Visit General Internal Medicine [facility] 200 [facility] [place] [address] Patience Berrios PA-C 200 [facility] [place] [address] 12/19/2023 1:15 PM EDT Office Visit Urology, [facility] [address] [facility] [place] [address] Mendel Macedo MD [address] [place] [address] 12/21/2023 2:20 PM EDT Office Visit General Internal Medicine [facility] 200 [facility] [place] [address] Jose M Seth MD 200 [facility] [place] [address] 12/25/2023 1:30 PM EDT Office Visit Psychiatry, [facility] 200 [facility] [place] [address] Paty Haynes CRNP 200 [facility] [place] [address] 01/25/2024 11:00 AM EDT Telemedicine Genetics [facility], [facility] [address] [place] [address] Tonya Jovel, MS [address] [place] [address] 06/04/2024 3:40 PM EST Telemedicine [facility] [place] [address] [place] [phone] Charmaine Mckeon, DO [address] [place] [address] 10/14/2024 2:00 PM EDT Nurse Only Ancillary [facility] [place] [address] [place] [address] [place], Nurse [facility] [address] [place] [address] Health Maintenance Due Date Last Done Comments COVID-19 Vaccine ( season) 2023 04/11/2023, 03/22/2022, 02/18/2021, Additional history exists Influenza Vaccine (FLU shot) (#1) 2024 02/07/2023, 02/08/2022, 02/08/2021, Additional history exists DXA Scan 09/20/2024 09/20/2021, 08/28, 10/23/2013, Additional history exists Depression Monitoring 11/12/2024 11/13/2023, 024 HbA1c 12/03/2024 12/04/2023, 0209/2022, 09/17/2021, Additional history exists DTaP,Tdap,and Td Vaccines [...] and were consensually agreed upon. Care Teams Mineralogy Teacher Relationship Specialty Start Date End Date Jose M Seth MD 200 [facility] [place] [address] PCP - General Internal Medicine 11/21/11 documented as of this encounter
--- OUTSIDE RECORDS SUMMARY | 2023-12-21 15:25 | External Medical Summary ---
Author Name Unknown Address Unknown Organization [id number]:[place] [place] [address] [place] [address] Laboratory Report Ordering Provider Test Date Status MAHAMEDKENDALL 12/15/2023 15:36:42 Final Observation Date Value Abnormality Reference (Units) Status PARAPROTEIN NORMAL/ABNORMAL 12/15/2023 15:36:42 Abnormal Abnormal Normal Final Protein, Urine 12/15/2023 15:36:42 17 (mg/dL) Final Immunofixation for Urine Narrative 12/15/2023 15:36:42 Abnormal. Monoclonal intact immunoglobulins present. A monoclonal IgG kappa gammopathy is present. Final Performing Location [facility] [place] [address] [place] [address]
--- OUTSIDE RECORDS SUMMARY | 2023-12-21 15:25 | External Medical Summary ---
Author Name Unknown Address Unknown Organization [id number]:[facility] [place] [address] [place] [address] Laboratory Report Ordering Provider Test Date Status PIERRE IRBY 12/15/2023 15:36:42 Final Observation Date Value Abnormality Reference (Units ) Status HbA1C 12/15/2023 15:36:42 5.4 4.0-5.6 (% ) Final The use of HbA1c to monitor glycemic status is based on normal hemoglobin and HbA composition. This test should not be used in patients with abnormal hemoglobin that affects the half life of the red blood cell or the in vivo glycation rates. Glucose, estimated average 12/15/2023 15:36:42 108 <126 (mg/dL) Final Performing Location [facility] [place] [address] [place] [address]
--- OUTSIDE RECORDS SUMMARY | 2023-12-21 15:25 | External Medical Summary ---
Author Name Unknown Address Unknown Organization [id number]:LABORATORY [facility] [place] [address] [place] [address] Laboratory Report Ordering Provider Test Date Status PIERRE IRBY 12/15/2023 15:36:42 Final Observation Date Value Abnormality Reference (Units ) Status Sodium, Urine 12/15/2023 15:36:42 <20 (mmol/ L) Final Potassium, Urine 12/15/2023 15:36:42 34.0 (mm ol/L) Final Chloride, Urine 12/15/2023 15:36:42 28 (mmo l/L) Final Performing Location LABORATORY [facility] [place] - [address] [place] [address]
--- OUTSIDE RECORDS SUMMARY | 2023-12-21 15:25 | External Medical Summary ---
Author Name Unknown Address Unknown Organization [id number]:[facility] [place] [facility] [address] [facility] [address] Laboratory Report Ordering Provider Test Date Status DO MAHAMEDKENDALL 12/15/2023 15:36:42 Final Observation Date Value Abnormality Reference (Units) Status PARAPROTEIN NORMAL/ABNORMAL 12/15/2023 15:36:42 Abnormal Abnormal Normal Final Protein, Urine 12/15/2023 15:36:42 17 (mg/dL) Final Albumin / Total protein, Urine 12/15/2023 15:36:42 65.7 (%) Final Gamma globulin / protein (UPEP) 12/15/2023 15:36:42 34.3 (%) Final Urine Protein Electrophoresis (UPEP) 12/15/2023 15:36:42 8.3 (%) Final Protein Fractions [Interpretation] in Urine by Electrophoresis Narrative 12/15/2023 15:36:42 Abnormal. Paraprotein present. See urine immunofixation results. Final Performing Location LABOR[facility]ORY [facility] [place] [facility] [address] [facility] [address]
--- OUTSIDE RECORDS SUMMARY | 2023-12-21 15:25 | External Medical Summary ---
Author Name Unknown Address Unknown Organization [id number]:[place] [place] [address] [place] [address] [place] [address] Laboratory Report Ordering Provider Test Date Status MAHAMEDKENDALL 12/15/2023 15:36:42 Final Normal: <30 mg/g creatinine< br/>High: 30-300 mg/g creatinine
Very High: >300 mg/g creatinine
Nephrotic: >2200 mg/g creatinine Observation Date Value Abnormality Reference (Units ) Status Albumin, Urine 12/15/2023 15:36:42 4.90 (mg/dL) Final Creatinine, Urine 12/15/2023 15:36:42 103 (mg/dL) Final Albumin/Creatinine [Mass Ratio] in Urine 12/15/2023 15:36:42 48 Above high normal <30 (mg/g Creat) Final Performing Location [facility] [place] [address] [place] [address]
--- OUTSIDE RECORDS SUMMARY | 2023-12-21 15:25 | External Medical Summary ---
Author Name Unknown Address Unknown Organization K01:[facility] [address] [facility] [address] Laboratory Report Ordering Provider Test Date Status PIERRE IRBY 12/15/2023 15:36:42 Final Observation Date Value Abnormality Reference (Units ) Status Color of Urine by Auto 12/15/2023 15:36:42 Light Yellow Colorless, Light Yellow, Yellow, Dark Yellow Final Clarity, Urine 12/15/2023 15:36:42 Clear Clear Final Glucose [Mass/volume] in Urine by Automated test strip 12/15/2023 15:36:42 Negative Negative (mg/dL) Final Bilirubin.total [Presence] in Urine by Automated test strip 12/15/2023 15:36:42 Negative Negative Final Ketones [Mass/volume] in Urine by Automated test strip 12/15/2023 15:36:42 Negative Negative (mg/dL) Final Specific gravity, Urine 12/15/2023 15:36:42 1.013 1.003-1.030 Final Hemoglobin [Presence] in Urine by Automated test strip 12/15/2023 15:36:42 Negative Negative Final pH, Urine 12/15/2023 15:36:42 5.5 5.0-7.5 (Units) Final Protein [Mass/volume] in Urine by Automated test strip 12/15/2023 15:36:42 Trace Abnormal Negative (mg/dL) Final Urobilinogen [Mass/volume] in Urine by Automated test strip 12/15/2023 15:36:42 Normal Normal (mg/dL) Final Nitrite [Presence] in Urine by Automated test strip 12/15/2023 15:36:42 Negative Negative Final Leukocyte esterase [Presence] in Urine by Automated test strip 12/15/2023 15:36:42 Negative Negative Final RBC, Urine 12/15/2023 15:36:42 0-2 0-2 (/HPF) Final WBC, Urine 12/15/2023 15:36:42 0-2 0-2 (/HPF) Final Bacteria [#/area] in Urine sediment by Microscopy high power field 12/15/2023 15:36:42 0-25 0-25 (/HPF) Final Hyaline casts, Urine 12/15/2023 15:36:42 1-4 Abnormal None (/LPF) Final Performing Location [facility] [place] [address] [facility] [address]
--- OUTSIDE RECORDS SUMMARY | 2023-12-21 15:25 | External Medical Summary ---
Author Name Unknown Address Unknown Organization K01:[place] [place] [address] [place] [address] Laboratory Report Ordering Provider Test Date Status PIERRE IRBY 12/15/2023 15:36:42 Final Deficient: <20 ng/mL
Ins ufficient: 20-29 ng/mL
Recommended/Optimum:30-50 ng/mL

Vitamin D intoxication is rare. If suspicious of Vitamin D toxicity, evaluation of serum Calcium and PTH is recommended. Observation Date Value Abnormality Reference (Units ) Status 25-OH Vitamin D total 12/15/2023 15:36:42 46 >19 (ng/mL) Final Performing Location [facility] [place] [address] [place] [address]
--- OUTSIDE RECORDS SUMMARY | 2023-12-21 15:25 | External Medical Summary ---
Author Name Unknown Address Unknown Organization K01:[facility] [place] [address] [facility] [address] Laboratory Report Ordering Provider Test Date Status PIERRE IRBY 12/15/2023 15:36:42 Final Observation Date Value Abnormality Reference (Units) Status PARAPROTEIN NORMAL/ABNORMAL 12/15/2023 15:36:42 Abnormal Abnormal Normal Final Protein 12/15/2023 15:36:42 7.0 6.0-8.3 (g/dL) Final Albumin/Protein.total [Pure mass fraction] in Serum or Plasma by Electrophoresis 12/15/2023 15:36:42 3.49 3.30-4.40 (g/dL) Final Alpha 1 globulin/Protein.tota l [Pure mass fraction] in Serum or Plasma by Electrophoresis 12/15/2023 15:36:42 0.20 0.10-0.30 (g/dL) Final Alpha 2 globulin/Protein.tota l [Pure mass fraction] in Serum or Plasma by Electrophoresis 12/15/2023 15:36:42 0.81 0.60-1.00 (g/dL) Final Beta globulin/Protein.tota l [Pure mass fraction] in Serum or Plasma by Electrophoresis 12/15/2023 15:36:42 0.79 Below low normal 0.80-1.30 (g/dL) Final Gamma globulin/Protein.tota l [Pure mass fraction] in Serum or Plasma by Electrophoresis 12/15/2023 15:36:42 1.72 Above high normal 0.70-1.70 (g/dL) Final Monoclonal protein 12/15/2023 15:36:42 1.21 (g/dL) Final Protein Fractions [Interpretation] in Serum or Plasma by Electrophoresis Narrative 12/15/2023 15:36:42 Abnormal. 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 Final Performing Location LABORATORY C - [address] [facility] [address]
--- OUTSIDE RECORDS SUMMARY | 2023-12-21 15:25 | External Medical Summary ---
Author Name Unknown Address Unknown Organization K01:[facility]ATORY [facility] - [address] [place] [address] Laboratory Report Ordering Provider Test Date Status PIERRE IRBY 12/15/2023 15:36:42 Final Observation Date Value Abnormality Reference (Units ) Status Magnesium 12/15/2023 15:36:42 1.8 1.5-2.6 (m g/dL) Final Performing Location LABORATORY [facility] - [address] [place] [address]
--- OUTSIDE RECORDS SUMMARY | 2023-12-21 15:25 | External Medical Summary | Summary of Care ---
Author Name Unknown Organization [facility] Address [address] [place] [address] Phone [phone] Care Team Providers Care Business Taxes Specialist Name Role Phone Jose M Seth MD Primary Care Provider + Reason for Visit * Reason Comments Outpatient Testing Encounter Details Date Type Department Care Team (Late st Contact Info) Description 12/15/2023 3:30 PM EDT Laboratory Laboratory [facility] [place] [address] [place] [phone] [place] [facility] [address] [facility] [place] [address] Mixed hyperlipidemia; Prediabetes; Encounter for long-term (current) use of medications; MGUS (monoclonal gammopathy of unknown significance); Hyponatremia; Acute hyponatremia; Acute on chronic anemia; Hypomagnesemia Allergies Active Allergy Reactions Criticality Noted Date [...] needed. 100 Tab 04/15/2020 Active Saline Nasal [place] 0.65 % Nasal Solution ([place] Nasal [place]) Two sprays in each nostril as needed [...] Active Commode BedsideIndications:C hronic diastolic heart failure (HCC),ocean transportation intermediary current use of diuretic Bedside commode. Use as needed to use restroom. 1 Each 12/15/2023 Active documented as of this encounter (statuses [...] Jose M Seth MD Pharmacy: [facility] 08/09/2013 12/16/2015 Dementia 07/19/2013 2017 [...] mRNA, LNP-s, No Pre serve, 2-Dose Series ([employer]) 02/18/2021,08/10/2020,07/06/2020 COVID-19, MRNA-LNP, 23-24, P F, 30 MCG/0.3 mL, 12 YRS AND ABOVE, IM ([employer]) 04/11/2023 Covid-19, Mrna, Lnp-s, Pf, B ivalent, [...] Office Visit Urology, [facility] [address] [place] [address] Mendel Macedo MD [address] [place] [address] 12/21/2023 2:20 PM EDT Office Visit General Internal Medicine [facility] [place] [facility] [place] [address] Jose M Seth MD 200 [facility] [place] [address] 12/25/2023 1:30 PM EDT Office Visit Psychiatry, [facility] [address] [facility] [place] [address] Paty Haynes CRNP 200 [facility] [place] [address] 01/25/2024 11:00 AM EDT [place]medicine [place] [facility] [place] [address] [address] Tonya Jovel, MS [address] [place] [address] 01/31/2024 1:00 PM EDT Office Visit Nephrology, [facility] [address] [place] [address] Haresh Mark MD [address] [facility] [place] [address] 06/04/2024 3:40 PM EST Telemedicine [facility] Disorders Ctr [facility] [place] [address] [place] [phone] Charmaine Mckeon DO [address] [place] [address] 10/14/2024 2:00 PM EDT Nurse Only Ancillary [place] Ailyn Massey [address] [place] [address] Shilpa Nurse Annual [facility] [address] [place] [address] Pending Results Name Type Priority Associated Diagnoses Date /Time COMPREHENSIVE METABOLIC PANEL Lab Routine Mixed hyperlipidemia 12/15/2023 3:36 PM EDT LIPID PANEL WITH DIRECT LDL IF TG IS HIGH Lab Routine Mixed hyperlipidemia 12/15/2023 3:36 PM EDT HEMOGLOBIN A1C Lab Routine Prediabetes 12/15/2023 3:36 PM EDT VITAMIN B12 Lab Routine Encounter for long-term (current) use of medications 12/15/2023 3:36 PM EDT MAGNESIUM Lab Routine Encounter for long-term (current) use of medications 12/15/2023 3:36 PM EDT 25-HYDROXY VITAMIN D Lab Routine Encounter for long-term (current) use of medications 12/15/2023 3:36 PM EDT SERUM PROTEIN ELECTROPHORESIS REFLEX PROFILE Lab Routine MGUS (monoclonal gammopathy of unknown significance) Hyponatremia 12/15/2023 3:36 PM EDT OSMOLALITY, URINE Lab Routine MGUS (monoclonal gammopathy of unknown significance) Hyponatremia 12/15/2023 3:36 PM EDT OSMOLALITY, SERUM Lab Routine MGUS (monoclonal gammopathy of unknown significance) Hyponatremia 12/15/2023 3:36 PM EDT KAPPA/LAMBDA LIGHT CHAINS, FREE WITH RATIO, RANDOM URINE Lab Routine MGUS (monoclonal gammopathy of unknown significance) Hyponatremia 12/15/2023 3:36 PM EDT URINALYSIS WITH MICROSCOPIC EXAM Lab Routine Hyponatremia 12/15/2023 3:36 PM EDT CBC WITH WBC DIFFERENTIAL Lab Routine Acute on chronic anemia 12/15/2023 3:36 PM EDT CBC Lab Routine Acute on chronic anemia 12/15/2023 3:36 PM EDT DIFFERENTIAL, AUTOMATED Lab Routine Acute on chronic anemia 12/15/2023 3:36 PM EDT Health Maintenance Due Date Last Done Comments COVID-19 Vaccine ( season) 2023 04/11/2023, 03/22/2022, 02/18/2021, Additional history exists Influenza Vaccine (FLU shot) (#1) 2024 02/07/2023, 02/08/2022, 02/08/2021, Additional history exists DXA Scan 09/20/2024 09/20/2021, 0409/2021, 10/23/2013, Additional history exists Depression Monitoring 11/12/2024 [...] of this encounter Visit Diagnoses Diagnosis Mixed hyperlipidemia Prediabetes Other abnormal glucose Encounter for long-term (current) use of medications Encounter for long-term (current) use of other medications MGUS (monoclonal gammopathy of unknown significance) Monoclonal paraproteinemia Hyponatremia Hyposmolality and/or hyponatremia Acute hyponatremia Hyposmolality and/or hyponatremia Acute on chronic anemia Hypomagnesemia Disorders of magnesium metabolism documented in this encounter Advance Directives * Full Code (Latest Code Status on File) Date Activated Date Inactivated Comments 09/24/2012 8:15 PM 10/02/2012 7:35 PM This order re flects the patients wishes and were consensually agreed upon. Care Teams Business Taxes Specialist Relationship Specialty Start Date End Date oJse M Seth MD 200 [place] [address] PCP - General Internal Medicine 11/21/11 documented as of this encounter
--- OUTSIDE RECORDS SUMMARY | 2023-12-21 15:25 | External Medical Summary | Summary of Care ---
Author Name Unknown Organization [facility] Address [address] [facility] [address] Phone [phone] Care Team Providers Care Spin Instructor Name Role Phone Jose M Seth MD Primary Care Provider + Reason for Referral * Medication Prior Authorization - Pending Review Specialty Diagnoses / Procedures Referred By Nelia t Referred To Contact Diagnoses Chronic diastolic heart failure (HCC) MCC current use of diuretic Patience Berrios PA-C [address] [place] [address] Referral ID Status Reason Start Date Expiration Date V isits Requested Visits Authorized [id number] Pending Review [phone] Reason for Visit * Reason Onset Date Comments Hospital Follow-Up F/U [facility] disc harge 12.13.2023 Hospital Follow-Up 12/15/2023 Encounter Details Date Type Department Care Team (Late st Contact Info) Description 12/15/2023 2:20 PM EDT Office Visit General Internal Medicine [place] Ailyn Cevallos [address] [place] [address] Patience Berrios PA-C [address] [address] Hospital discharge follow-up*; Acute hyponatremia; Hypomagnesemia; Acute on chronic anemia; 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 100 Tab 0 Active Saline Nasal [place] 0.65 % Nasal Solution ([place] Nasal Climax) Two sprays in each nostril as needed [...] needed for Nausea. 30 Tablet 4 Active Furosemide 40 MG Oral Tablet (Lasix) Take 1 Tablet by mouth in the morning and 1 Tablet before bedtime. 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 Use as needed to use restroom. 1 Each 4 Active Premarin 0.625 MG/GM Vaginal Cream (Estrogens Conjugated) Apply topically to affected area daily. As directed. 30 g 4 3 12/15/19 24 Discontinu ed(Medicat ion List Clean Up) documented as of this encounter (statuses as [...] Jose M Seth MD Pharmacy: [facility] [address] Lumbago 08/09/2013 12/16/2015 Dementia 07/19/2013 2017 Encounter [...] mRNA, LNP-s, No Pre serve, 2-Dose Series ([employer]) 02/18/2021,08/10/2020,07/06/2020 COVID-19, MRNA-LNP, 23-24, P F, 30 MCG/0.3 mL, 12 YRS AND ABOVE, IM ([employer]-Comirnaty) 04/11/2023 Covid-19, Mrna, Lnp-s, Pf, B ivalent, [...] ages 0-17 years) Not on file 10/09/2023 Are you homeless or worried that [...] Sign Reading Time Taken Comments Blood Pressure 90/55 12/15/2023 2:52 PM EDT Pulse 72 12/15/2023 2:52 PM EDT Temperature 36.9 C (98.5 F) 12/15/2023 2:52 PM ED T Respiratory Rate 16 12/15/2023 2:52 PM EDT Oxygen Saturation 92% 12/15/2023 2:52 PM EDT Inhaled Oxygen Concentration - - Weight 80.8 kg (178 lb 1.6 oz) 12/15/2023 2:52 P M EDT Height - - Body Mass Index 33.65 10/09/2023 1:18 PM EDT documented in this encounter Progress Notes * Patience Berrios PA-C - 12/15/2023 2:59 PM EDT SUBJECTIVE: Kathy Mccoy is a 78 year old female. Chief Complaint Patient presents with Hospital Follow-Up F/U [facility] discharge 12.13.2023 Hospital Follow-Up Recent Admission: Patient was recently admitted to [facility]. The date of discharge was 12/13/23. Discharge report receivedand reviewed. HPI: Pt here today for a HFU after being admitted at [facility] from 12/05-12/12 with acute hyponatremia. Presented with complaints of chest/abd pain and dizziness. She improved with urea, Lasix, and increased protein diet through out admission. Unfortunately, urea was not covered by pt's insurance and notaffordable. Nephrology consulted throughout stay and recommended 1.5L fluid restriction daily as well as 80g+ protein diet per day. Also recommended incorporating high Mag and K foods. Troponin levels neg x 2 as part of chest pain work up. EKG normal. CTA of chest completed due to elevated d-dimer level which showed no PE, but did show possible esophagitis. Recommended protonix which the pt is taking. Pt was noted to be anemic throughout stay but this was monitored and remained stable. Pt discharged on Lasix 40 mg BID as well as Mag supplement BID. Has HN services in place through [facility]. PT and speech therapy will be starting soon. Recommended outpatient f/up with nephrology which has been sched for 01/30. Pt accompanied today by her daughter who assists with history. Patient Active Problem List Diagnosis Obstructive sleep [...] hours as needed. 100 Tab0 Saline Nasal [place] 0.65 % Nasal Solution ([place] Nasal [place]) Two sprays in each nostril as needed for nasal dryness or congestion 50 mL 2 Hydrocortisone (Perianal) 2.5 % External Cream Administer into the rectum 2 times a day. For up to 1 week 30 g 0 Diclofenac Sodium 1 % External Gel (Voltaren) Apply topically to affected area 4 times a day. Applyto knee. 150 g 0 Atorvastatin Calcium 20 MG Oral Tablet [...] daily as needed for Anxiety. 10 Tablet0 CPAP every night at bedtime. Gabapentin 300 [...] needed to use restroom. 1 Each 0 Probiotic Acidophilus BioBeads Oral Capsule Take 1 Capsule by mouth in the morning and 1 Capsule atnoon and 1 Capsule in the evening. Take with meals. (Patient not taking: Reported on 12/15/2023) COVID-19 mRNA Vaccine 12 years and above [employer] 30 MCG/0.3 ML IM SUSP Inject into a large muscle. (Patient not taking: Reported on 12/15/2023) 0.3 mL 0 No current facility-administered medications for this visit. Current and discharge medications have been reconciled. Review of patient's allergies indicates: Allergen Reactions [...] Zyrtec [Cetirizine Hcl] Problems breathing, overly dry OBJECTIVE: BP 90/55 | Pulse 72 | Temp 36.9 C (98.5 F) | Resp 16 | Wt 80.8 kg (178 lb 1.6 oz) | SpO2 92% | BMI 33.65 kg/m | BSA 1.86 m REVIEW OF SYSTEMS: Review of Systems Constitutional: Negative for chills and fever. Respiratory: Negative for shortness of breath. Cardiovascular: Negative for chest pain. Gastrointestinal: Positive for abdominal pain. PHYSICAL EXAM: BP 90/55 | Pulse 72 | Temp 36.9 C (98.5 F) | Resp 16 | Wt 80.8 kg (178 lb 1.6 oz) | SpO2 92% | BMI 33.65 kg/m | BSA 1.86 m Physical Exam Constitutional: General: She is not in acute distress. Appearance: She is not diaphoretic. HENT: Mouth/Throat: Mouth: Mucous membranes are moist. Pharynx: Oropharynx is clear. Cardiovascular: Rate and Rhythm: Normal rate and regular rhythm. Pulmonary: Effort: Pulmonary effort is normal. Breath sounds: Normal breath sounds. Abdominal: General: Bowel sounds are normal. Palpations: Abdomen is soft. Musculoskeletal: Right lower leg: No edema. Left lower leg: No edema. Skin: General: Skin is warm and dry. Neurological: General: No focal deficit present. Mental Status: She is alert. Mental status is at baseline. ASSESSMENT: Hospital discharge follow-up (Primary) - DISCH MED RECON CUR MED LIS Acute hyponatremia - BASIC METABOLIC PANEL; Future; Expected date: 12/15/2023 Hypomagnesemia - MAGNESIUM; Future; Expected date: 12/15/2023 Acute on chronic anemia - CBC WITH WBC DIFFERENTIAL; Future; Expected date: 12/15/2023 Chronic diastolic heart failure (HCC) - Commode Bedside; Bedside commode. Use as needed to use restroom. MCC current use of diuretic - Commode Bedside; Bedside commode. Use as needed to use restroom. Gastroesophageal reflux disease without esophagitis Follow Up: Return if symptoms worsen or fail to improve, for Labs Today. | For: Labs Today PLAN: Pt has f/up appt sched next week with Dr. Seth. Offered for pt to reschedule this but she would like to keep this appt. F/up with nephrology as sched. BMP, CBC, and Mg level today. Follow up as above. I spent a total of Greater than 55 mins (exact time 58 mins) minutes on the date of service in preparation, delivery, and documentation of the care provided to Kathy Kurtz Heberesthershanell excluding any time spent in performance of separately billed services. Patience Berrios PA-C Patient requires bedside commode due to inability to utilize standard toilet facilities as a resultof patient taking chronic diuretics and is unable to safely make it from bed to restroom in timely fashion to relieve bladder. Script for bedside commode printed and given to pt. She would like to take this to Miguel. documented in this encounter Nursing Notes * Bud Cox MED ASSIST - 12/15/2023 2:51 PM EDT The patient has been properly identified by confirmation of name and date of . Chief Complaint Patient presents with Hospital Follow-Up F/U [facility] discharge 12.13.2023 documented in this encounter Plan of Treatment Upcoming Encounters Date Type Department Care Team (Late st Contact Info) Description 12/19/2023 1:15 PM EDT Office Visit Urology, [address] [place] [address] Mendel Macedo MD [address] [place] [address] 12/21/2023 2:20 PM EDT Office Visit General Internal Medicine [facility] [place] [address] [place] [address] Jose M Seth MD 200 [facility] [place] [address] 12/25/2023 1:30 PM EDT Office Visit Psychiatry, [facility] [place] [address] Paty Haynes CRNP 200 [facility] [place] [address] 01/25/2024 11:00 AM EDT Telemedicine Genetics [facility], [place] [address] [place] [address] Tonya Jovel, MS [address] [place] [address] 01/31/2024 1:00 PM EDT Office Visit Nephrology, [facility] [address] [address] Haresh Mark MD 200 [facility] [place] [address] 06/04/2024 3:40 PM EST Telemedicine [facility] [place] [address] [place] [phone] Charmaine Mckeon DO [address] [place] [address] 10/14/2024 2:00 PM EDT Nurse Only Ancillary [facility] Shilpa [place] [address] [place] [address] [place], Nurse Annual Wellness [facility] 200 [facility] [place] [address] Pending Results Name Type Priority Associated Diagnoses Date /Time CBC WITH WBC DIFFERENTIAL Lab Routine Acute on chronic anemia 12/15/2023 3:36 PM EDT Scheduled Orders Name Type Priority Associated Diagnoses Orde r Schedule CBC WITH WBC DIFFERENTIAL Lab Routine Acute on chronic anemia Expected: 12/15/2023 (Approximate), Expires: 12/14/2024 Health Maintenance Due Date Last Done Comments [...] as of this encounter Visit Diagnoses Diagnosis Hospital discharge follow-up- Primary Other follow-up examination Acute hyponatremia Hyposmolality and/or hyponatremia Hypomagnesemia Disorders of magnesium metabolism Acute on chronic anemia Chronic diastolic heart failure (HCC) 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 Care Teams Spin Instructor Relationship Specialty Start Date End Date Jose M Seth MD 200 [facility] [place] [address] PCP - General Internal Medicine 11/21/11 documented as of this encounter
--- OUTSIDE RECORDS SUMMARY | 2023-12-21 15:25 | External Medical Summary ---
Author Name Unknown Address Unknown Organization [id number]:[facility] - [address] [facility] [place] [address] Laboratory Report Ordering Provider Test Date Status ELKIN IRBYTEIN 12/15/2023 15:36:42 Final Observation Date Value Abnormality Reference (Units ) Status Triglyceride 12/15/2023 15:36:42 69 <=174 ( mg/dL) Final Triglyceride Reference Range s (mg/dL):
<150 Acceptable
150-174 Borderline high
175-499 High
>=500 Very high Cholesterol 12/15/2023 15:36:42 144 <200 (mg /dL) Final Total Cholesterol Reference Ranges (mg/dL):
<200 Desirable
200-239 Borderline high
>=240 High HDL 12/15/2023 15:36:42 57 >49 (mg/dL ) Final HDL Cholesterol Reference Ra nges (mg/dL):
>=60 High (Desirable)
<50 Low (Undesirable) For Females
<40 Low (Undesirable) For Males NON-HDL CHOLESTEROL 12/15/2023 15:36:42 87 <=159 (mg/dL) Final Non-HDL Cholesterol Referenc e Range (mg/dL):
<100 Target level for high risk ASCVD patient
<130 Optimal for general population
130-159 Near optimal for general population
160-189 Borderline High
190-219 High
>=220 Very High LDL, (calculated) 12/15/2023 15:36:42 73 <= 129 (mg/dL) Final LDL Cholesterol Reference Ra nges (mg/dL):
<70 Target level for high risk ASCVD patient
<100 Optimal for general population
100-129 Near optimal for general population
130-159 Borderline high
160-189 High
>=190 Very high Performing Location LABORATORY [facility] [place] - [address] [facility] [address]
--- OUTSIDE RECORDS SUMMARY | 2023-12-21 15:25 | External Medical Summary ---
Author Name Unknown Address Unknown Organization [id number]:[facility] - [address] [place] [address] Laboratory Report Ordering Provider Test Date Status EMIR SCHMITZ 12/15/2023 15:36:42 Final Observation Date Value Abnormality Reference (Units ) Status SYNC LEUKOCYTES IN BLOOD BY AUTOMATED COUNT 12/15/2023 15:36:42 3.84 Below low normal 4.00-10.80 (K/uL) Final Segs 12/15/2023 15:36:42 50.2 40.0-75.0 (%) Final Lymphs % 12/15/2023 15:36:42 29.7 18.0-42.0 (%) Final Monos 12/15/2023 15:36:42 17.7 Above high normal 1.0-11.0 (%) Final Eosinophils 12/15/2023 15:36:42 1.6 0.0-6.0 (%) Final Basos 12/15/2023 15:36:42 0.3 0.0-2.0 (%) Final Immature Granulocyte, Percent 12/15/2023 15:36:42 0.5 0.0-2.0 (%) Final Absolute Segs 12/15/2023 15:36:42 1.93 1.80-7.70 (K/uL) Final Lymphs, absolute 12/15/2023 15:36:42 1.14 1.00-4.80 (K/ul) Final Monos, Abs 12/15/2023 15:36:42 0.68 0.00-1.10 (K/uL) Final Eos, Abs 12/15/2023 15:36:42 0.06 0.00-0.70 (K/uL) Final Basos, Abs 12/15/2023 15:36:42 0.01 0.00-0.20 (K/uL) Final Immature Granulocytes, Number 12/15/2023 15:36:42 0.02 0.00-0.20 (K/uL) Final Performing Location [place] [place] [facility] [address] [facility] [address]
--- OUTSIDE RECORDS SUMMARY | 2023-12-21 15:25 | External Medical Summary | Summary of Care ---
Author Name Unknown Organization [facility] Address [address] [place] [address] Phone [phone] Care Team Providers Care Superintendent Drivers Name Role Phone Jose M Seth MD Primary Care Provider + Reason for Visit * Reason Onset Date Comments Medication Refill 12/19/2023 Encounter Details Date Type Department Care Team (Late st Contact Info) Description 12/19/2023 Refill Psychiatry [place] S[place] [address] [place] [address] Paty Haynes CRNP [address] [place] [address] PETER (generalized anxiety disorder); Mood disorder in [...] needed. 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 Use [...] needed for Anxiety. 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 30 Capsule 2 4 12/19/19 24 Discontinu ed(Refill) LORazepam 0.5 MG Oral Tablet (Ativan)Indications :PETER (generalized anxiety disorder) Take 1 Tablet by mouth daily as needed for Anxiety. 10 Tablet 05/1512/19/19 Discontinu ed(Refill) documented as of this encounter [...] PSG -- AHI 10.7, <89% 128 mins [facility] Returned machine Jun 2013 Nocturnal hypoxemia 06/18/2012 Overview: 2 LPM [facility] Chronic knee pain History of [...] mRNA, LNP-s, No Pre serve, 2-Dose Series ([employer]) 02/18/2021,08/10/2020,07/06/2020 COVID-19, MRNA-LNP, 23-24, P F, 30 MCG/0.3 mL, 12 YRS AND ABOVE, IM ([employer]Comirnat[employer] Prep) 04/11/2023 Covid-19, Mrna, Lnp-s, Pf, B ivalent, 30 Mcg, IM, 12 yrs and above ([employer]) 03/22/2022 Pneumococcal Conjugate Vacc, 13 Valent (Prevnar) [...] Telephone Encounter - Paty Haynes CRNP - 12/19/2023 12:10 PM EDT Signed Prescriptions: Disp Refills FLUoxetine HCl 20 MG Oral Capsule (PROzac) 30 Cap*2 Sig: Take 1 Capsule by mouth at bedtime. Authorizing Provider: PATY HAYNES LORazepam 0.5 MG Oral Tablet (Ativan) 10 Tab*0 Sig: Take 1 Tablet by mouth daily as needed for Anxiety. Authorizing Provider: PATY HAYNES * Telephone Encounter - Carola Boyle LPN - 12/19/2023 11:41 AM EDT Pharmacy requesting refill on prozac. Medication was last filled on 09/18/23 with 2 refills. Patientlast seen on 11/06/23 with return appointment scheduled for 12/25/23. Patient had 0 cancelled appointments and 0 NO SHOW appointments. documented in this encounter Plan of Treatment Upcoming Encounters Date Type Department Care Team (Late st Contact Info) Description 12/19/2023 1:15 PM EDT Office Visit Urology, [facility] [place] [address] Mendel Macedo MD [address] [place] [address] 12/21/2023 2:20 PM EDT Office Visit General Internal Medicine [facility] [place] [address] [facility] [place] [address] Jose M Seth MD 200 [facility] [place] [address] 12/25/2023 1:30 PM EDT Office [facility] [address] [place] [address] Paty Haynes CRNP 200 [facility] [place] [address] 01/25/2024 11:00 AM EDT Telemedicine Genetics HemOn, [facility] [address] [place] [address] Tonya Jovel, MS 132 [facility] [place] [address] 01/31/2024 1:00 PM EDT Office Visit [facility], [facility] [address] [place] [address] Haresh Mark MD 200 [facility] [place] [address] 06/04/2024 3:40 PM EST Telemedicine Sleep Disorders Ctr [facility] 132 [facility] [place] [phone] Charmaine Mckeon DO [address] [place] [address] 10/14/2024 2:00 PM EDT Nurse Only Ancillary [facility] [place] [address] [facility] [place] [address] [place], Nurse Annual Wellness [address] [place] [address] Health Maintenance Due Date Last Done Comments [...] and were consensually agreed upon. Care Teams Superintendent Drivers Relationship Specialty Start Date End Date Jose M Seth MD 200 [facility] [place] [address] PCP - General Internal Medicine 11/21/11 documented as of this encounter
--- OUTSIDE RECORDS SUMMARY | 2023-12-21 15:25 | External Medical Summary ---
Author Name Unknown Address Unknown Organization [id number]:[facility] [place] - [address] [place] [address] Laboratory Report Ordering Provider Test Date Status PIERRE IRBY 12/15/2023 15:36:42 Final Observation Date Value Abnormality Reference (Units ) Status Vitamin B12 12/15/2023 15:36:42 [phone] (pg/mL) Final Performing Location [facility] - [address] [place] [address]
--- OUTSIDE RECORDS SUMMARY | 2023-12-21 15:25 | External Medical Summary ---
Author Name Unknown Address Unknown Organization K01:LABORATORY [facility] [place] - [address] [facility] [address] [facility] [address] Laboratory Report Ordering Provider Test Date Status EMIR SCHMITZ 12/15/2023 15:36:42 Final Observation Date Value Abnormality Reference (Units ) Status WBC, Total 12/15/2023 15:36:42 3.84 Below low normal 4.00-10.80 (K/uL) Final RBC 12/15/2023 15:36:42 3.20 3.85-5.15 (M/uL) Final Hemoglobin 12/15/2023 15:36:42 9.7 Below low normal 12.0-15.3 (g/dL) Final HCT 12/15/2023 15:36:42 29.1 Below low normal 36.0-45.2 (%) Final MCV 12/15/2023 15:36:42 90.9 81.5-97.5 (fL) Final MCH 12/15/2023 15:36:42 30.3 27.0-34.0 (pg) Final MCHC 12/15/2023 15:36:42 33.3 32.0-36.0 (g/dL) Final RDW 12/15/2023 15:36:42 14.6 11.5-15.5 (%) Final Platelets 12/15/2023 15:36:42 257 140-400 (K/uL) Final MPV 12/15/2023 15:36:42 10.8 6.6-11.1 (fL) Final Nucleated erythrocytes/100 leukocytes [Ratio] in Blood by Automated count 12/15/2023 15:36:42 0 <=0 (/100 WBCs) Final Performing Location LABORATORY [facility] [place] - [address] [place] [address]
--- OUTSIDE RECORDS SUMMARY | 2023-12-21 15:25 | External Medical Summary ---
Author Name Unknown Address Unknown Organization K01:[facility] - [address] [facility] [place] [address] Laboratory Report Ordering Provider Test Date Status PIERRE IRBY 12/15/2023 15:36:42 Final Observation Date Value Abnormality Reference (Units ) Status BUN 12/15/2023 15:36:42 59 Above high normal 6-20 (mg/dL) Final Creatinine 12/15/2023 15:36:42 1.5 Above high normal 0.5-1.0 (mg/dL) Final Glomerular filtration rate/1.73 sq M.predicted [Volume Rate/Area] in Serum, Plasma or Blood by Creatinine-based formula (CKD-EPI) 12/15/2023 15:36:42 36 Below low normal >=60 (mL/min) Final eGFR is calculated based on the CKD-EPI 2020 equation. Sodium 12/15/2023 15:36:42 128 Below low normal 135 -146 (mmol/L) Final Potassium 12/15/2023 15:36:42 4.7 3.5-5.1 (m mol/L) Final Cl 12/15/2023 15:36:42 84 Below low normal 98- 107 (mmol/L) Final CO2 12/15/2023 15:36:42 33 Above high normal 22 -32 (mmol/L) Final Anion gap 12/15/2023 15:36:42 11 7-15 (mmol /L) Final Glucose 12/15/2023 15:36:42 96 70-120 (mg /dL) Final Albumin 12/15/2023 15:36:42 4.1 3.8-5.0 (g /dL) Final AST (Aspartate aminotransferase) 12/15/2023 15:36:42 17 10-35 (U/L) Fin al Alk Phos 12/15/2023 15:36:42 44 35-130 (U/ L) Final Bilirubin, Total 12/15/2023 15:36:42 0.4 <=1 .2 (mg/dL) Final Calcium 12/15/2023 15:36:42 9.8 8.4-10.2 ( mg/dL) Final Protein 12/15/2023 15:36:42 7.0 6.0-8.3 (g /dL) Final ALT (Alanine aminotransferase) 12/15/2023 15:36:42 8 Below low normal 10-35 (U/L) Final Performing Location LABORATORY [facility] [place] - [address] [facility] [address]
--- OUTSIDE RECORDS SUMMARY | 2023-12-21 15:26 | External Medical Summary | Summary of Care ---
Author Name Unknown Organization [facility] Address [address] [place] [address] Phone [phone] Care Team Providers Care Salvage Engineering Technician Name Role Phone Jose M Seth MD Primary Care Provider + Reason for Visit * Reason Onset Date Comments Left Message 12/04/2023 Encounter Details Date Type Department Care Team (Late st Contact Info) Description 12/04/2023 Telephone Psychiatry, [place] [address] [place], [place] [id number] [facility], [facility] [address] [place] [address] Left Message Allergies Active Allergy Reactions Criticality Noted Date [...] as of this encounter (statuses as of 12/11/2023) Medications Medication Sig Dispensed Refills Start Date [...] needed. 100 Tab 04/15/2020 Active Saline Nasal [place] 0.65 % Nasal Solution ([place] Nasal [place]) Two sprays in each nostril as needed [...] as of this encounter (statuses as of 12/11/2023) Active Problems Problem Noted Date Diagnosed Date [...] as of this encounter (statuses as of 12/11/2023) Resolved Problems Problem Noted Date Diagnosed Date [...] MD Pharmacy: Maricruz Foster [facility] 08/09/2013 12/16/2015 Dementia 07/19/2013 2017 Encounter for [...] as of this encounter (statuses as of 12/11/2023) Immunizations Name Administration Dates Next Due COVID-19 [...] the money to buy more. Never true 05/13/20 24 Within the past 12 months, t [...] Telephone Encounter - Paty Haynes CRNP - 12/11/2023 9:25 AM EDT T/C to pt's daughter to follow up with Pt's status and to report valproic acid level WNL at 84. Pt currently is hospitalized due to dehydration. Pt was found to have hyponatremia and hypomagnesemia -likely the cause for change in behavior and confusion. Pt's daughter stated she is possibly being released from hospital tomorrow and will have in home nursing services. Pt is scheduled for psych foll ow up on 12/25/23. No changes to treatment plan recommended at this time. * Telephone Encounter - Sylvia Bailey OSA - 12/04/2023 7:38 AM EDT Good morning, Pt's Daughter Molina, called stated, Pt had withdrawal symptoms for not taking her meds Depakote for 2 days, and Monday, Pt was agitated, very angry, shaking, wouldn't take her coat off or put pajama on, don't want to go to bathroom alone, on quote. Pt's is home now with the other daughter, Pt have a pasting blood work today at 8 am to measure Depakote level and she would like to know ifPt's should take her med before the appt. She is requesting a phone call, if she don't get a call before the appt, Pt's would probably take on quote. Please advise. Thank you documented in this encounter Plan of Treatment Upcoming Encounters Date Type Department Care Team (Late st Contact Info) Description 12/11/2023 10:45 AM EDT Office Visit Urology, [facility] [address] [place] [address] Mendel Macedo MD 27 [place] [address] 12/12/2023 11:00 AM EDT Office Visit General Internal Medicine [facility] [address] Patience Berrios PA-C [address] [facility] [address] [place], [place] [address] 12/13/2023 1:30 PM EDT Cardiac Studies Cardiac Studies, Sanam Alvarez [place] 132 [facility] [place] [address] 12/21/2023 2:20 PM EDT Office Visit General Internal Medicine [facility] [place] 200 [facility] [place] [address] Jose M Seth MD 200 [facility] [place] [address] 12/25/2023 1:30 PM EDT Office Visit Psychiatry, [facility] 200 [facility] [place] [address] Paty Haynes CRNP 200 [facility] [place] [address] 01/25/2024 11:00 AM EDT Telemedicine Genetics HemOn, [facility] [address] [place] [address] Tonya Jovel, MS 132 [facility] [place] [address] 06/04/2024 3:40 PM EST Telemedicine Sleep Disorders Ctr Sin[facility] 132 [facility] [place] [address] Charmaine Mckeon DO 132 [facility] [place] [address] 10/14/2024 2:00 PM EDT Nurse Only Ancillary [facility] Shilpa [place] 200 [facility] [place] [address] Shilpa, Nurse Annual Wellness [facility] 200 [facility] [place] [address] Health Maintenance Due Date Last Done Comments COVID-19 Vaccine (6 - 2023-24 season) 2023 04/11/2023, 03/22/2022, 02/18/2021, Additional history [...] and were consensually agreed upon. Care Teams Salvage Engineering Technician Relationship Specialty Start Date End Date Jose M Seth MD [address] [place] [address] PCP - General Internal Medicine 11/21/11 documented as of this encounter
--- OUTSIDE RECORDS SUMMARY | 2023-12-21 15:26 | External Medical Summary | Summary of Care ---
Author Name Unknown Organization [facility] Address [address] [place] [address] Phone [phone] Care Team Providers Care Audit Clerks Supervisor Name Role Phone Jose M Seth MD Primary Care Provider + Reason for Visit * Reason Onset Date Comments Home Health 12/14/2023 Encounter Details Date Type Department Care Team (Late st Contact Info) Description 12/14/2023 Telephone General Internal Medicine [facility] 200 [place] [address] Jose M Seth MD 200 [place] [address] Home Health Allergies Active Allergy Reactions Criticality Noted Date [...] as of this encounter (statuses as of 12/14/2023) Medications Medication Sig Dispensed Refills Start Date [...] needed. 100 Tab 04/15/2020 Active Saline Nasal [place] 0.65 % Nasal Solution ([place] Nasal [place]) Two sprays in each nostril as needed [...] as of this encounter (statuses as of 12/14/2023) Active Problems Problem Noted Date Diagnosed Date [...] -- AHI 10.7, <89% 128 mins [facility] Returned machine Jun 2013 Nocturnal hypoxemia 06/18/2012 Overview: 2 LPM [facility] 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 documented as of this encounter (statuses as of 12/14/2023) Resolved Problems Problem Noted Date Diagnosed Date [...] as of this encounter (statuses as of 12/14/2023) Immunizations Name Administration Dates Next Due COVID-19 mRNA, LNP-s, No Pre serve, 2-Dose Series ([employer]) 02/18/2021,08/10/2020,07/06/2020 COVID-19, MRNA-LNP, 23-24, P F, 30 MCG/0.3 mL, 12 YRS AND ABOVE, IM ([employer] 04/11/2023 Covid-19, Mrna, Lnp-s, Pf, B [...] No 10/09/2023 Does the household have a rustlar source of income? (Household - for ages [...] Telephone Encounter - Carola Perdue LPN - 12/14/2023 3:25 PM EDT HH Admission/Start of Care Admission/Start of Care: Kenzie CONNELLY, Calling from: [facility] Patient was Admitted to: [facility], for: hypomagnesia, hyponatremia d/c 12/12 Referral ordered by: [facility] Referral received for: PT, OT, and Speech Planned start of care date:Yes, Date 12/13 Start of care completed on: YES Report/Concerns of:BP Symptoms: lightheaded Vitals: T 97.3 P 85 RR 16 BP sitting 104/58 standing 82/50- does get dizzy from time to time and stands in place until dizziness goes away, scheduled with PCP office tomorrow. SP O2 97% RA Narrative: 104/58 standing 82/50- does get dizzy from time to time and stands in place until dizziness goes away, scheduled with PCP office tomorrow. They will call with any updates or additional concerns from the upcoming HH visit. Last Office Visit: 12/04/2023 Has patient been scheduled or seen in the office for a follow up visit: Yes- on12/14 Advised that orders will be signed by Jose M Seth MD and to fax to the office for signature. documented in this encounter Plan of Treatment Upcoming Encounters Date Type Department Care Team (Late st Contact Info) Description 12/15/2023 2:20 PM EDT Office Visit General Internal Medicine [facility] [place] [address] [address] Patience Berrios PA-C [address] [address] 12/21/2023 2:20 PM EDT Office Visit General Internal Medicine [place] Ailyn Cevallos [address] [address] Jose M Seth MD [address] [address] 12/25/2023 1:30 PM EDT Office Visit Psychiatry, [facility] [address] [place] [address] Paty Haynes CRNP [address] [place] [address] 01/25/2024 11:00 AM EDT Telemedicine Genetics [facility], [address] [address] Tonya Jovel, MS [address] [place] [address] 06/04/2024 3:40 PM EST Telemedicine Sleep Disorders Ctr Sinan Alvarez [place] [address] [place] [address] Charmaine Mckeon, [address] [place] [address] 10/14/2024 2:00 PM EDT Nurse Only Ancillary [facility] [place] Ailyn Massey 200 [facility] [place] [address] Shilpa Nurse Annual Wellness [facility] 200 [facility] [place] [address] Health Maintenance Due Date Last Done Comments [...] and were consensually agreed upon. Care Teams Audit Clerks Supervisor Relationship Specialty Start Date End Date Jose M Seth MD 200 [place] [address] PCP - General Internal Medicine 11/21/11 documented as of this encounter
--- OUTSIDE RECORDS SUMMARY | 2023-12-21 15:26 | External Medical Summary | Summary of Care ---
Author Name Unknown Organization [facility] Address [address] [place] [address] Phone [phone] Care Team Providers Care Hr Generalist Name Role Phone Jose M Seth MD Primary Care Provider + Reason for Visit * Reason Onset Date Comments FYI 12/07/2023 Encounter Details Date Type Department Care Team (Late st Contact Info) Description 12/07/2023 Telephone General Internal Medicine [facility] 200 [place] [address] Jose M Seth MD 200 [place] [address] FYI (/) Allergies Active Allergy Reactions Criticality Noted Date [...] as of this encounter (statuses as of 12/07/2023) Medications Medication Sig Dispensed Refills Start Date [...] needed. 100 Tab 04/15/2020 Active Saline Nasal [place] 0.65 % Nasal Solution (Makena Nasal [place]) Two sprays in each nostril as needed [...] as of this encounter (statuses as of 12/07/2023) Active Problems Problem Noted Date Diagnosed Date [...] as of this encounter (statuses as of 12/07/2023) Resolved Problems Problem Noted Date Diagnosed Date [...] M Seth MD Pharmacy: Maricruz Foster [facility] 08/09/2013 12/16/2015 Dementia 07/19/2013 2017 [...] as of this encounter (statuses as of 12/07/2023) Immunizations Name Administration Dates Next Due COVID-19 mRNA, LNP-s, No Pre serve, 2-Dose Series ([employer]) 02/18/2021,08/10/2020,07/06/2020 COVID-19, MRNA-LNP, 23-24, P F, 30 MCG/0.3 mL, 12 YRS AND ABOVE, IM ([employer]) 04/11/2023 Covid-19, Mrna, Lnp-s, Pf, B [...] No 10/09/2023 Does the household have a [facility] source of income? (Household - for ages [...] Encounter - Lisa Salazar MED ASSIST - 12/07/2023 10:48 AM EDT Myg sent * Telephone Encounter - Jose M Seth MD - 12/07/2023 10:16 AM EDT Yes, I hope she gets better soon! * Telephone Encounter - Lisa Salazar MED ASSIST - 12/07/2023 10:12 AM EDT Schedule HD follow up once discharge? Please advise * Telephone Encounter - Alfonzo Simental OSA - 12/07/2023 10:03 AM EDT Pt states that she is in [facility] and was admitted yesterday for weakness and infection.Please advise. documented in this encounter Plan of Treatment Upcoming Encounters Date Type Department Care Team (Late st Contact Info) Description 12/08/2023 2:30 PM EDT Office Visit Hematology/Oncology [address] [place] [phone] Marietta Salazar CRNP [address] [place] [address] 12/11/2023 10:45 AM EDT Office Visit Urology, [facility] 132 [facility] [place] [address] Mendel Macedo MD [address] [place] [id number] 12/12/2023 11:00 AM EDT Office Visit General Internal Medicine [address] [place] [address] Patience Berrios PA-C [address] [place] [address] 12/13/2023 1:30 PM EDT Cardiac Studies Cardiac Studies, Sanam [facility] 132 [facility] [place] [address] 12/21/2023 2:20 PM EDT Office Visit General Internal Medicine [facility] [place] [address] [place] [address] Jose M Seth MD 200 [facility] [place] [address] 12/25/2023 1:30 PM EDT Office Visit Psychiatry, [facility] 200 [facility] [place] [address] Paty Haynes CRNP 200 [facility] [place] [address] 01/25/2024 11:00 AM EDT Telemedicine Genetics [facility], [address] [address] Tonya Jovel, [place] 132 [place] [address] 06/04/2024 3:40 PM EST Telemedicine Sleep Disorders Ctr Sinan [facility] 132 [facility] [place] [phone] Charmaine Mckeon, DO 132 [facility] [address] 10/14/2024 2:00 PM EDT Nurse Only Ancillary [facility] [place] [address] [place] [address] Shilpa Nurse Annual Wellness [facility] 200 [facility] [place] [address] Health Maintenance Due Date Last Done Comments [...] and were consensually agreed upon. Care Teams Hr Generalist Relationship Specialty Start Date End Date Jose M Seth MD 200 [facility] [place] [address] PCP - General Internal Medicine 11/21/11 documented as of this encounter
--- OUTSIDE RECORDS SUMMARY | 2023-12-21 15:26 | External Medical Summary | Summary of Care ---
Author Name Unknown Organization [facility] Address [address] [place] [address] Phone [phone] Care Team Providers Care Paving Machine Operator Name Role Phone Jose M Seth MD Primary Care Provider + Encounter Details Date Type Department Care Team (Late st Contact Info) Description 12/11/2023 Population Health External Data Unspecified Department Allergies [...] Saline Nasal [place] 0.65 % Nasal Solution ([place] Nasal [place]) Two sprays in each nostril [...] Jose M Seth MD Pharmacy: Maricruz Foster [facility] 08/09/2013 12/16/2015 Dementia 07/19/2013 [...] mRNA, LNP-s, No Pre serve, 2-Dose Series ([employer]) 02/18/2021,08/10/2020,07/06/2020 COVID-19, MRNA-LNP, 23-24, P F, 30 [...] No 10/09/2023 Does the household have a [facility] source of income? (Household - for [...] 12/11/2023 10:45 AM EDT Office Visit Urology, [facility] 132 [facility] [place] [address] Mendel Macedo MD 27 [place] [id number] 12/12/2023 11:00 AM EDT Office Visit General Internal Medicine [facility] [address] [place] [address] Patience Berrios PA-C [address] [address] 12/13/2023 1:30 PM EDT Cardiac Studies Cardiac Studies, T[facility] 132 [facility] [place] [address] 12/21/2023 2:20 PM EDT Office Visit General Internal Medicine [facility] [address] [address] Joes M Seth MD [address] [facility] [place] [address] 12/25/2023 1:30 PM EDT Office Visit Psychiatry, [facility] 200 [facility] [place] [address] Paty Haynes CRNP [address] [facility] [place] [address] 01/25/2024 11:00 AM EDT Telemedicine Genetics HemOn, [facility] 100 [place] [address] Tonya Jovel, MS [address] [place] [address] 06/04/2024 3:40 PM EST Telemedicine Sleep Disorders Ctr [facility] [address] [place] [phone] Charmaine Mckeon DO [address] [place] [address] 10/14/2024 2:00 PM EDT Nurse Only Ancillary [facility] [address] [place] [address] Shilpa, Nurse Annual Wellness [facility] [address] [place] [address] [address] Health Maintenance Due Date Last Done Comments [...] and were consensually agreed upon. Care Teams Paving Machine Operator Relationship Specialty Start Date End Date Doberstein, Jose M F, MD 200 [place] [address] PCP - General Internal Medicine 11/21/11 documented as of this encounter
--- OUTSIDE RECORDS SUMMARY | 2023-12-21 15:26 | External Medical Summary | Summary of Care ---
Author Name Unknown Organization [facility] Address [address] [place] [address] Phone [phone] Care Team Providers Care Home Visits Nurse Name Role Phone Jose M Seth MD Primary Care Provider + Reason for Visit * Reason Onset Date Comments Advice 12/07/2023 Pio Salazar (Pt Ho spitalized) Encounter Details Date Type Department Care Team (Late st Contact Info) Description 12/07/2023 Telephone Hematology/Oncology, [facility] [address] [place] [address] Marietta Salazar CRNP [address] [place] [address] Advice (Pio Salazar (Pt Hospitalized)) Allergies Active Allergy Reactions Criticality Noted Date [...] Dispensed Refills Start Date End Date Status [facility] B[facility] X-LARGE MISCIndications:Unsp ecified urinary incontinence [...] needed. 100 Tab 04/15/2020 Active Saline Nasal [place] 0.65 % Nasal Solution ([place] Nasal [place]) Two sprays in each nostril as needed [...] PSG -- AHI 10.7, <89% 128 mins [facility] Returned machine Jun 2013 Nocturnal hypoxemia [...] 10/15/13 PCP: Jose M Seth MD [facility] 08/09/2013 12/16/2015 Dementia 07/19/2013 2017 [...] mRNA, LNP-s, No Pre serve, 2-Dose Series ([employer] 02/18/2021,08/10/2020,07/06/2020 COVID-19, MRNA-LNP, 23-24, P F, 30 MCG/0.3 mL, 12 YRS AND ABOVE, IM ([employer]) 04/11/2023 Covid-19, Mrna, Lnp-s, Pf, B ivalent, [...] encounter Miscellaneous Notes * Telephone Encounter - Jv Mitchell RN - 12/07/2023 3:19 PM EDT Hospitalist team will refer to inpatient team while patient is admitted to the hospital. * Telephone Encounter - Petros Olguin OSA - 12/07/2023 2:29 PM EDT Call from daughter to state that she is in [facility] R[facility] and was admitted yesterday for weakness and infection. Daughter wants to know if someone from office will be able to do an Inpatient visit. Please advise. documented in this encounter Plan of Treatment Upcoming Encounters Date Type Department Care Team (Late st Contact Info) Description 12/11/2023 10:45 AM EDT Office Visit Urology, [facility] [address] [place] [address] Mendel Macedo MD [address] [place] [address] 12/12/2023 11:00 AM EDT Office Visit General Internal Medicine [facility] [address] [place] [address] Patience Berrios PA-C [address] [place] [address] 12/13/2023 1:30 PM EDT Cardiac Studies Cardiac Studies, [facility] 132 [place] [address] 12/21/2023 2:20 PM EDT Office Visit General Internal Medicine [facility] [address] [place] [address] Jose M Seth MD [address] [place] [address] 12/25/2023 1:30 PM EDT Office Visit Psychiatry, [facility] Shilpa 200 [facility] [place] [address] Paty Haynes CRNP [address] [place] [address] 01/25/2024 11:00 AM EDT Telemedicine Genetics [facility], [address] [address] Tonya Jovel, MS [address] [place] [address] 06/04/2024 3:40 PM EST Telemedicine Sleep Disorders Ctr [facility] [place] [address] [place] [address] Charmaine Mckeon, [address] [place] [address] 10/14/2024 2:00 PM EDT Nurse Only Ancillary [facility] Shilpa [place] 200 [facility] [place] [address] Shilpa Nurse Annual Wellness [facility] 200 [facility] [place] [address] Health Maintenance Due Date Last Done Comments [...] and were consensually agreed upon. Care Teams Home Visits Nurse Relationship Specialty Start Date End Date Jose M Seth MD 200 [facility] [place] [address] PCP - General Internal Medicine 11/21/11 documented as of this encounter
--- OUTSIDE RECORDS SUMMARY | 2023-12-21 15:26 | External Medical Summary | Summary of Care ---
Author Name Unknown Organization [facility] Address [address] [place] [address] Phone [phone] Care Team Providers Care Microfiche Camera Operator Name Role Phone Jose M Seth MD Primary Care Provider + Reason for Visit * Reason Onset Date Comments TRIAGE 12/11/2023 Encounter Details Date Type Department Care Team (Late st Contact Info) Description 12/11/2023 Telephone Access Center, [place] 100 [address] [facility] *DO NOT REMOVE THIS DEPARTMENT* [place] [address] Services, Scheduling [address] [place] [address] TRIAGE Allergies Active Allergy Reactions Criticality Noted [...] as of this encounter (statuses as of 12/12/2023) Medications Medication Sig Dispensed Refills Start Date [...] needed. 100 Tab 04/15/2020 Active Saline Nasal [place] 0.65 % Nasal Solution ([place] Nasal [place]) Two sprays in each nostril as needed [...] as of this encounter (statuses as of 12/12/2023) Active Problems Problem Noted Date Diagnosed Date [...] as of this encounter (statuses as of 12/12/2023) Resolved Problems Problem Noted Date Diagnosed Date [...] as of this encounter (statuses as of 12/12/2023) Immunizations Name Administration Dates Next Due COVID-19 mRNA, LNP-s, No Pre serve, 2-Dose Series ([employer] 02/18/2021,08/10/2020,07/06/2020 COVID-19, MRNA-LNP, 23-24, P F, 30 MCG/0.3 mL, 12 YRS AND ABOVE, IM ([facility]) 04/11/2023 Covid-19, Mrna, Lnp-s, Pf, B [...] Care Team (Late st Contact Info) Description 12/13/2023 1:30 PM EDT Cardiac Studies Cardiac Studies, [facility] 132 [facility] [place] [address] 12/15/2023 2:20 PM EDT Office Visit General Internal Medicine [facility] 200 [facility] [place] [address] Patience Berrios PA-C 200 [place] [address] 12/21/2023 2:20 PM EDT Office Visit General Internal Medicine [facility] 200 [facility] [place] [address] Jose M Seth MD 200 [place] [place] [address] 12/25/2023 1:30 PM EDT Office Visit Psychiatry, [facility] 200 [facility] [place] [address] Paty Haynes CRNP 200 [facility] [place] [address] 01/25/2024 11:00 AM EDT Telemedicine Genetics [facility], [address] [address] Tonya Jovel, MS [address] [place] [address] 06/04/2024 3:40 PM EST Telemedicine Sleep Disorders Ctr Sinan Alvarez [place] [address] [place] [address] Charmaine Mckeon, [address] [place] [address] 10/14/2024 2:00 PM EDT Nurse Only Ancillary [address] Shilpa [place] [address] [place] [address] Shilpa, Nurse Annual Wellness [address] [address] [place] [address] Health Maintenance Due Date Last Done Comments [...] and were consensually agreed upon. Care Teams Microfiche Camera Operator Relationship Specialty Start Date End Date Jose M Seth MD 200 [place] [address] PCP - General Internal Medicine 11/21/11 documented as of this encounter
--- NOTE | 2023-12-21 16:22 | History & Physical Report ---
Date of Service December 21, 2023 Assessment & Plan (1) Hyponatremia: (2) Neck pain: (3) Facial droop: (4) Bipolar disorder: (5) Sleep apnea: (6) Hyperlipidemia: (7) Restless leg syndrome: (8) History of endometrial cancer: (9) MGUS (monoclonal gammopathy of unknown significance): (10) Asthma: Plan This is an 78yo F with PMH significant for HFrEF (55-60%, TTE 2022), moderate , hypertension, bronchial asthma, pulmonary hypertension, JOO on CPAP, GERD, prediabetes, left breast cancer status post surgery/radiation, endometrial cancer status post surgery/chemotherapy, urinary incontinence as per records, MGUS, chronic anemia (baseline hemoglobin of 10), anxiety/mood disorder, OCD presenting home with arm pain and generalized weakness. Patient was recently admitted from 12/05- with acute hyponatremia. She improved with urea, Lasix, and increased protein diet through out admission. Unfortunately, urea was not covered by pt's insurance. Also recommended to be on a 1.5L fluid restriction daily, 80+ gram protein diet per day. Was discharged on Lasix 40 mg BID as well as Mag supplement BID nephro follow up. Hyponatremia Sodium of 129 on admission Serum osm 286, urine osm and lytes pending On recent admission, nephro recommended urea 15mg BID (too expensive for patent), lasix 40mg PO BID, mag supplement BID, 1.5 L FR -> lasix dc'd in outpatient setting 2/2 lyte abnormalities Resumed urea BID Routine nephro consult Cervical pain MRI cervical spine to eval for radicular cause Scheduled Tylenol ? 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 Laguerre. Please see addendum. I spent a total of 75 minutes coordinating, documenting, and providing care for this patient excluding time spent in the performance of separately billed services. History of Present Illness Chief Complaint: arm pain, weakness Primary Care Provider: Jose M Seth MD This is an 78yo F with PMH significant for HFrEF (55-60%, TTE 2022), moderate , hypertension, bronchial asthma, pulmonary hypertension, JOO on CPAP, GERD, prediabetes, left breast cancer status post surgery/radiation, endometrial cancer status post surgery/chemotherapy, urinary incontinence as per records, MGUS, chronic anemia (baseline hemoglobin of 10), anxiety/mood disorder, OCD presenting home with arm pain and generalized weakness. Patient was recently admitted to our service from with acute hyponatremia. She improved with urea, Lasix, and increased protein diet through out admission. Unfortunately, urea was not covered by pt's insurance and patient has not been taking. Also recommended to be on a 1.5L fluid restriction daily, 80+ gram protein diet per day. Was discharged on Lasix 40 mg BID as well as Mag supplement BID with home nursing services through [facility]. Follow up with nephro scheduled for 01/30. Presenting today with neck pain extending to R arm and radiating down arm intermittently. Daughter at bedside states patient was weak when she woke up. questioned a facial droop after she put in her dentures that has since resolved since arrival here. Has been trying to increase protein. Was not taking urea at home. No F/C, lightheadedness, CP, SOB, N/V, abd pain, dysuria, diarrhea or constipation. Allergies Allergy/AdvReac Type Severity Reaction Status Date / Time adhesive Allergy Intermediate ADHESIVE Verified 12/06/23 18:30 TAPE -- BLISTERS cetirizine Allergy Intermediate SORES IN Verified 12/06/23 18:30 MOUTH, HEAD CONGESTION dicloxacillin Allergy Intermediate MOUTH SORE Verified 12/06/23 18:30 erythromycin base Allergy Intermediate SORES IN Verified 12/06/23 18:30 MOUTH rifampin Allergy Intermediate elevated Verified 12/06/23 18:30 LFT's codeine AdvReac Mild NAUSEA Verified 12/06/23 18:30 doxycycline AdvReac Mild NAUSEA Verified 12/06/23 18:31 morphine AdvReac Mild "MAKES ME Verified 12/06/23 18:31 FEEL LOOPY" tetracycline AdvReac Mild NAUSEA Verified 12/06/23 18:31 NSAIDS (Non-Steroidal AdvReac Due to Verified 12/06/23 18:31 Anti-Inflamma kidney problems tramadol [From Ultram] AdvReac Nausea Verified 12/06/23 18:31 Home Medications Medication Instructions Recorded Confirmed Type Oxygen Home #1 ea 02/28/19 03/03/22 History cholecalciferol (vitamin D3) 25 25 mcg PO QAM 02/28/19 12/21/23 History mcg (1,000 unit) capsule fluoxetine 20 mg capsule 20 mg PO HS 02/28/19 12/21/23 History acetaminophen 500 mg tablet 1,000 mg PO Q8H PRN Pain 01/28/21 12/21/23 History (Tylenol Extra Strength) albuterol sulfate 90 mcg/actuation 2 puff inhalation Q4H PRN 01/28/21 12/21/23 History aerosol inhaler Shortness Of Breath Or Wheezing biotin 300 mcg tablet 300 mcg PO DAILY 01/28/21 12/21/23 History gabapentin 300 mg capsule 300 mg PO TID 01/28/21 12/21/23 History lorazepam 0.5 mg tablet 0.5 mg PO DAILY PRN Anxiety 01/28/21 12/21/23 History diclofenac sodium 1 % topical gel 4 g topical QID PRN Pain 12/06/23 12/21/23 History divalproex 250 mg tablet,extended 750 mg PO HS 12/06/23 12/21/23 History release 24 hr fluticasone propionate 50 2 spray intranasal QAM PRN 12/06/23 12/21/23 History mcg/actuation nasal Congestion spray,suspension oxybutynin chloride 15 mg 15 mg PO QAM 12/06/23 12/21/23 History tablet,extended release 24 hr magnesium chloride 64 mg 128 mg (2 x 64 mg) PO BID #60 tabs 12/13/23 12/21/23 Rx (magnesium chloride) tablet,delayed release (Mag 64) atorvastatin 20 mg tablet (Lipitor) 20 mg PO DAILY 12/21/23 12/21/23 History Past Med/Surg History Problem List (Updated 12/21/23 @ 19:49 by Sean Contreras MD) Calcific tendonitis of right shoulder (Acute) Hyponatremia (Acute) Facial droop (Acute) Neck pain Chest pain (Acute) Hypomagnesemia (Acute) Acute hyponatremia (Acute) Ambulatory dysfunction (Acute) Generalized weakness (Acute) Malignant neoplasm of lower-inner quadrant of left breast in female, estrogen receptor negative (Chronic 02/26/20) Medical History (Updated 12/21/23 @ 19:49 by Sean Contreras MD) Hyponatremia Asthma MRSA infection Aortic stenosis MODERATE PER 01/23/20 ECHO. ABRIL 1.1CM2, MG 23 MGUS (monoclonal gammopathy of unknown significance) Arthritis Degenerative disc disease Environmental and seasonal allergies IBS (irritable bowel syndrome) LACTOSE/GLUTEN FREE DIET History of endometrial cancer 2012 SURGERY/CHEMO/RADIATION Anemia Anxiety and depression Restless leg syndrome Hyperlipidemia Sleep apnea CPAP WITH O2 AT 2L HS Hip bursitis, left Incontinence Urge incontinence of urine Urinary urgency JOO (obstructive sleep apnea) Diastolic dysfunction Morbid obesity with BMI of 45.0-49.9, adult ALBERT (acute kidney injury) OCD (obsessive compulsive disorder) GERD (gastroesophageal reflux disease) Bipolar disorder Surgical History H/O umbilical hernia repair History of anesthesia reaction SLOW TO WAKE UP History of esophagogastroduodenoscopy (EGD) History of colonoscopy H/O breast biopsy H/O eye surgery LASER PROCEDURE RT/LEFT History of cataract surgery RT/LEFT S/P ectopic History of left hip replacement History of hysterectomy Hx of cholecystectomy History of carpal tunnel surgery Bilateral Status post total knee replacement, right Family History Mother , in 88yo Cervical cancer Status post cardiac surgery Surgery on "valves" Hypertension Father , 60yo Lung cancer Smoker Brother COPD (chronic obstructive pulmonary disease) Brother Lung cancer Brother Lung cancer Heart disease Defibrillator in place; Sister No problems noted. Sister Asthma Sister No problems noted. Son Muscular dystrophy Son No problems noted. Daughter No problems noted. Daughter No problems noted. Daughter No problems noted. 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 Physical Exam Physical Exam: Please see Dr. Laguerre' addendum for physical exam. Results & Data Results & Data Vital Signs (Past 12 Hours) Vital Signs Temp Pulse Pulse Resp BP BP Pulse Ox 12/21/23 14:45 85 16 118/60 97 12/21/23 12:23 85 18 92 12/21/23 12:23 85 18 108/67 92 12/21/23 12:20 85 12/21/23 11:13 37.3 C 89 19 132/66 96 O2 Del Method 12/21/23 14:45 12/21/23 12:23 Room Air 12/21/23 12:23 Room Air 12/21/23 12:20 12/21/23 11:13 Room Air Laboratory Results Short CBC 12/21/23 Range/Units Unknown WBC 9.51 (4.8-10.8) K/ul Hgb 10.0 L (12.0-16.0) g/dl Hct 28.2 L (37.0-47.0) % Plt Count 152 (130-400) K/uL BMP 12/21/23 12/21/23 13:49 Unknown Sodium 129 L Potassium 3.8 TNP Chloride 86 L Carbon Dioxide 37 H BUN 39 H Creatinine 0.93 Glucose 114 H Calcium 9.9 Liver Function 12/21/23 12/21/23 Range/Units 13:49 Unknown Total Bilirubin 0.5 (0.2-1.0) mg/dl AST 11 L TNP (13-39) U/L ALT 6 L (7-52) U/L Alkaline Phosphatase 36 (34-104) U/L Albumin 3.7 (3.4-5.0) gm/dl Diagnostic Findings Chest X-Ray 12/21/23 11:24 XR chest 1V portable CLINICAL HISTORY: Chest pain, nonspecific TECHNIQUE: Single frontal radiograph of the chest was obtained. Comparison: Comparison is made to chest radiograph 12/06/2023 FINDINGS: A port catheter is seen. Cardiomegaly is noted. The aortic arch is calcified. The lungs are clear. No evidence of pleural effusion or pneumothorax. IMPRESSION: No acute chest disease. Cardiomegaly is noted. ACT 112: Negative or not required by law. Electronically signed by: Uche Hollins M.D. 12/21/2023 11:48 AM Shoulder X-Ray 12/21/23 11:29 XR shoulder RT min 2V routine CLINICAL HISTORY: Right shoulder pain. COMPARISON STUDY: None. FINDINGS: No fracture or dislocation within the right shoulder. The right clavicle is intact. A right Port-A-Cath terminates in the SVC. A 1 cm calcification at the distal supraspinatus tendon consistent with a calcific tendinitis. Mild to moderate osteoarthritis at the acromioclavicular and glenohumeral joints. IMPRESSION: 1. No acute fracture or dislocation within the right shoulder. 2. Supraspinatus calcific tendinitis. 3. [id number] osteoarthritis. ACT 112: Negative or not required by law. Electronically signed by: Jv Busby M.D. 12/21/2023 12:[address] 12/21/23 12:45 CT head/brain wo con CLINICAL HISTORY: ?R lower face weakness, R shoulder pain?weak Technique: Contiguous axial CT images of the head were acquired from the base of the skull to the vertex without intravenous contrast administration. Images were viewed in brain, subdural and bone windows. Automated dose lowering techniques and/or adjustment according to patient size were utilized for this exam. Comparison: Comparison is made to CT head 12/06/2023 Findings: The ventricles, basal cisterns, and cerebral sulci are normal. There is no acute intracranial hemorrhage or evidence of acute territorial infarction. Neither mass effect, shift of the midline structures, nor abnormal extra-axial fluid collections are shown. Imaged portions of the paranasal sinuses and mastoid air cells are clear. The orbits appear normal. There are no acute fractures of the calvaria or scalp swelling. Impression: No acute intracranial hemorrhage, no evidence of acute territorial infarction or other acute intracranial disease process. ACT 112: Negative or not required by law. Electronically signed by: Uche Hollins M.D. 12/21/2023 1:32 PM Head CTA 12/21/23 12:45 CT angio head w con CLINICAL HISTORY: 78 years-old Female with ?R lower face weakness, R shoulder pain?weak. Acute strokelike symptoms. COMPARISON STUDY: CTA neck of same day, head CT 12/06/2023 TECHNIQUE: Following the IV administration of 120 mL of Optiray, CT angiogram of the brain was performed from the skull base to the vertex. Images are reviewed in the axial, sagittal, and coronal planes. 3-D MIPS images are created and assessed. IV contrast was administered without complication. All measurements were obtained according to NASCET criteria. A dose lowering technique was utilized adhering to the principles of ALARA. FINDINGS: CT ANGIOGRAM OF THE BRAIN: The imaged bilateral internal carotid arteries are patent. The bilateral anterior and middle cerebral arteries are also patent. The vertebrobasilar system and posterior cerebral arteries are widely patent. Tortuous basilar artery. There is no aneurysm, high-grade stenosis, or proximal branch occlusion identified. Dural sinuses appear patent. Involutional changes with chronic microvascular ischemic disease. Chronic appearing subcentimeter left cerebellar lacunar infarct. IMPRESSION: Unremarkable CTA of the head. ACT 112: Negative or not required by law. The above report was generated using voice recognition software. It may contain grammatical, syntax or spelling errors. Electronically signed by: Yony Flowers M.D. 12/21/2023 1:34 PM Neck CTA 12/21/23 12:45 NECK CTA HISTORY: ?R lower face weakness, R shoulder pain?weak TECHNIQUE: Multiaxial CT images of the neck were performed following the intravenous administration of contrast to evaluate the major cervical vessels. 3D/MIP images were also obtained. Sagittal and coronal reformats were reviewed. All measurements were calculated based on NASCET criteria. A dose lowering technique was utilized adhering to the principles of ALARA. COMPARISON STUDY: None. FINDINGS: The aortic arch and proximal great vessels are widely patent. There is no significant stenosis, occlusion, or dissection identified within the bilateral common carotid, internal carotid, or vertebral arteries. Partially visualized right jugular catheter. Left chest wall posttreatment changes again noted. Mild calcified plaque within the bilateral carotid bifurcations. Mild irregularity within the mid internal carotid arteries without significant stenosis. This suggests fibromuscular dysplasia. IMPRESSION: 1. No significant stenosis, occlusion, or dissection identified within the carotid or vertebral arteries. 2. Mild irregularity the mid internal carotid arteries suggestive of fibromuscular dysplasia. ACT 112: Negative or not required by law. Electronically signed by: Jv Busby M.D. 12/21/2023 1:56 PM Code Status & VTE Plan VTE Prophylaxis Plan VTE Prophylaxis will be ordered: Yes Supervising Physician Co-Signing Physician Notes I have seen and discussed the case with the collaborating advanced practitioner. I agree with the above H&P. I have reviewed and confirmed the patients medical history, the findings on physical examination, and the patients diagnosis and treatment plan with DAVIS and agree with the information documented. Ms. Mccoy is an 78yo F with PMH significant for HFrEF (55-60%, TTE 2022), moderate , hypertension, bronchial asthma, pulmonary hypertension, JOO on CPAP, GERD, prediabetes, left breast cancer status post surgery/radiation, endometrial cancer status post surgery/chemotherapy, urinary incontinence as per records, MGUS, chronic anemia (baseline hemoglobin of 10), anxiety/mood disorder, OCD presenting home with arm pain and generalized weakness. There was report of brief left sided facial droop. Right arm with severe pain from neck to elbow. Reports doing well until 24 hours ago. Reports r>l lower extremity weakness. GENERAL APPEARANCE: AxOx4, agitated 2/2 pain in neck HEENT: NC, AT. MMM. EOMI, clear conjunctiva, oropharynx clear. NECK: Supple without lymphadenopathy. tenderness along paraspinal muscles and over C6-C7, pain reproduced with rightward nod/movement of head. s HEART: Normal rate and regular rhythm, normal S1/S1, YOEL LUNGS: CTAB, moving air well. No crackles or wheezes are heard. ABDOMEN: Soft, nontender, nondistended with good bowel sounds heard. BACK: No CVAT, no obvious deformity. EXTREMITIES: Without cyanosis, clubbing or edema. NEUROLOGICAL: Grossly nonfocal. Alert and oriented, moving all 4 extremities. CN not formally tested but appear grossly intact. strength 4/5 RLE Skin: Warm and dry without any rash. 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 All of the aforementioned completed outside of collaborating with the assigned advanced practitioner for a full treatment plan. I have reviewed the advanced practitioner's documentation, and I agree with, and take responsibility for the plan of care
[2023-12-21] MEDS ORDERED: POLYETHYLENE (MIRALAX) 17 GM PACK PO PRN (19:05)
[2023-12-21] MEDS ORDERED: LORazepam 0.5 MG TAB PO PRN (19:05)
[2023-12-21] MEDS ORDERED: ALBUTEROL HFA 8 GM INHALER INH PRN (19:05)
[2023-12-21] MEDS ORDERED: FLUTICASONE PROPIONATE NA SPR 16 GM BTL NAE PRN (19:05)
[2023-12-21] MEDS ORDERED: ONDANSETRON INJ 2 MG/ML 2 ML VIAL IV PRN (19:05)
[2023-12-21] MEDS: ACETAMINOPHEN 500 MG TAB PO SCH (19:07)
[2023-12-21] MEDS: LORazepam 0.5 MG TAB PO ONE (19:57)
[2023-12-21] MEDS: GADOBUTROL 65ML VIAL IV ONE (21:50)
[2023-12-21] MEDS: MAGNESIUM CHLORIDE W/CALCIUM 64MG DELAYED REL TAB PO SCH (22:30)
[2023-12-21] MEDS: FLUoxetine HCL 20 MG CAP PO SCH (22:30)
[2023-12-21] MEDS: DIVALPROEX EXTENDED RELEASE 250 MG TABCR PO SCH (22:30)
[2023-12-21] MEDS: GABAPENTIN 300 MG CAP PO SCH (22:31)
[2023-12-21] MEDS: HEPARIN SOD 5,000 UNIT/0.5 ML VIAL SQ SCH (22:31)
[2023-12-21] MEDS: UREA (UREA-NA) 15 GM PACK PO SCH (22:59)
--- NOTE | 2023-12-22 01:16 | Magnetic Resonance Report ---
Exam(s): MRI HEAD W/WO Contrast IV Amt: 8ml gadavist EXAM: MR Head Without and With Intravenous Contrast CLINICAL HISTORY: Reason for exam: stroke eval, facial droop at home. TECHNIQUE: Magnetic resonance images of the head/brain without and with intravenous contrast in multiple planes. CONTRAST: Patient received 8ml gadavist of IV contrast COMPARISON: Prior head CT from December 21, 2023. FINDINGS: Brain: Mild nonspecific white matter changes. Remote ischemic injury of the left cerebellum. No mass. No hemorrhage. No acute infarct. The flow voids at the base of the brain are intact. Normal enhancement of the brain parenchyma. The dural venous sinuses are patent. Ventricles: Unremarkable. No ventriculomegaly. Bones/joints: Unremarkable. No acute fracture. Sinuses: Chronic left maxillary and ethmoid sinusitis. No acute sinusitis. Mastoid air cells: Unremarkable as visualized. No mastoid effusion. Orbits: Unremarkable as visualized. IMPRESSION: No evidence of acute intracranial pathology. Electronically signed by: Rena Garay MD 12/22/23 01:15 AM
--- NOTE | 2023-12-22 01:45 | Magnetic Resonance Report ---
Exam(s): MRI C SPINE IV Amt: 8ml gadavist EXAM: MR Cervical Spine With Intravenous Contrast CLINICAL HISTORY: Reason for exam: cervical radiculopathy. TECHNIQUE: Magnetic resonance images of the cervical spine with intravenous contrast in multiple planes. CONTRAST: Patient received 8ml gadavist of IV contrast COMPARISON: Prior CT angiogram of the neck from December 21, 2023. FINDINGS: Vertebrae: There are 7 cervical type vertebral bodies with a mild generalized curve to the left and straightening normal cervical lordosis. There is normal vertebral body height and alignment. The bone marrow signal is normal. No acute fracture. Spinal cord: The cord is normal size, shape and signal characteristics. The craniocervical junction is normal without evidence of Chiari malformation. No abnormal enhancement. Soft tissues: The cervical flow voids are intact. DISCS/SPINAL CANAL/NEURAL FORAMINA: C2-C3: Unremarkable. No significant disc disease. No stenosis. C3-C4: Unremarkable. No significant disc disease. No stenosis. C4-C5: Unremarkable. No significant disc disease. No stenosis. C5-C6: There is mild disc degeneration with angular disc bulge flattening the ventral thecal sac. C6-C7: There is mild disc degeneration with annular disc bulge flattening the ventral thecal sac. C7-T1: Unremarkable. No significant disc disease. No stenosis. IMPRESSION: No evidence of acute cervical spine pathology. Electronically signed by: Rena Garay MD 12/22/23 01:44 AM
[2023-12-22 07:12] LABS: Hematocrit (blood only) 27.7 % (37.0-47.0); Hemoglobin 9.6 g/dl (12.0-16.0); Mean Corpuscular Hemoglobin 30.2 pg (25.0-34.0); Mean Corpuscular Hgb Conc 34.7 g/dL (32.0-36.0); Mean Corpuscular Volume 87.1 fL (80.0-100.0); Platelet Count 149 K/uL (130-400); RDW Coefficient of Variation 14.1 % (11.5-14.5); RDW Standard Deviation 45.2 fL (36.4-46.3); Red Blood Count 3.18 M/uL (4.20-5.40); White Blood Count 3.87 K/ul (4.8-10.8)
[2023-12-22 07:29] LABS: BUN Creatinine Ratio 62.4 (10-20); Calcium 9.9 mg/dl (8.6-10.3); Est GFR (Non-African American) 64.7 ml/min; Potassium 4.2 mmol/L (3.5-5.1)
[2023-12-22] MEDS: ATORVASTATIN 20 MG TAB PO SCH (08:03)
[2023-12-22] MEDS: CHOLECALCIFEROL 25 MCG (1000 UNITS) TAB PO SCH (08:04)
[2023-12-22] MEDS: OXYBUTYNIN CHLORIDE XL 5 MG TABCR PO SCH (08:07)
[2023-12-22] MEDS ORDERED: ATORVASTATIN 20 MG TAB PO SCH (09:00)
[2023-12-22] MEDS ORDERED: BIOTIN 300 MCG PO SCH (09:00)
--- NOTE | 2023-12-22 12:51 | Nephrology Consultation ---
Date of Consultation December 22, 2023 Assessment & Plan (1) Hyponatremia: chronic mild hyponatremia. Based on the clinical response of the treatment as well as urinary test in the previous admission this was multifactorial secondary to combination of some degree of SIADH volume depletion as well as poor intake of protein. it responded to a combination of urea Lasix and fluid restriction. we could not use urea as an outpatient secondary to insurance issues. but for now will continue 15 g twice daily. her BUN is already more than 50 so I am not sure how long we can even continue this urea creatinine went up to 1.5 as an outpatient with Lasix 40 twice daily and currently we are holding Lasix and with that kidney function already back to baseline normal. Blood pressure is somewhat low but she does have some edema so I do not want to give salt tablet quite yet. in any case the hyponatremia problem she has is pretty mild with the lowest sodium of 128. Such mild hyponatremia especially if stable does not really cause a whole lot of problems (2) Hypomagnesemia: current magnesium is 1.7 which is on the low end of normal. Continue outpatient magnesium supplement which is Slow-Mag 120 twice daily. No need of IV magnesium. do check magnesium daily in the morning. Patient claims that ever since her chemotherapy she has had issues with slightly low sodium and low magnesium which does make sense as sometime chemotherapy causes some issues with the renal tubular reabsorption and secretion. Plan time spent 50 minutes History of Present Illness Reason for Consultation: Hyponatremia Attending Physician: June Hernandez MD History of Present Illness 78/F admitted because of right-sided arm and neck pain as well as weakness. There was some concern about acute stroke. her serum sodium was slightly low at 129 but kidney function was normal with a creatinine of 0.9. Patient was recently admitted to our service from 12/05- with acute hyponatremia. she had mild hyponatremia only with a low sodium of 128. on the day of discharge sodium was 134. She improved with urea, Lasix, and increased protein diet through out admission. Unfortunately, urea was not covered by pt's insurance and patient has not been taking. Also recommended to be on a 1.5L fluid restriction daily, 80+ gram protein diet per day. Was discharged on Lasix 40 mg BID as well as Mag supplement BID with home nursing services through [facility]. she had outpatient follow-up blood work done 12/15/2023 and showed creatinine up to 1.5 and sodium was 128. after this Lasix was stopped and free fluid restriction was continued. this morning labs is better with a sodium of 133 now and creatinine is 0.8. she is very worried about kidney function as she required dialysis briefly many years ago secondary to severe ATN but she has since recovered fully and has not had any issues with acute renal failure. review of systems----- currently has some back pain as well as pain in her arm. but is significantly less than yesterday. Otherwise 12 systems reviewed and negative. examination extremely anxious but she is awake alert oriented x3 and she is not in any respiratory distress she is well-built. mucous membrane is moist neck is supple no JVD chest bilateral clear to auscultation CVS S1 and S2 regular no murmur heard abdomen is soft nontender extremities shows trace edema Allergies Allergy/AdvReac Type Severity Reaction Status Date / Time adhesive Allergy Intermediate ADHESIVE Verified 12/06/23 18:30 TAPE -- BLISTERS cetirizine Allergy Intermediate SORES IN Verified 12/06/23 18:30 MOUTH, HEAD CONGESTION dicloxacillin Allergy Intermediate MOUTH SORE Verified 12/06/23 18:30 erythromycin base Allergy Intermediate SORES IN Verified 12/06/23 18:30 MOUTH rifampin Allergy Intermediate elevated Verified 12/06/23 18:30 LFT's codeine AdvReac Mild NAUSEA Verified 12/06/23 18:30 doxycycline AdvReac Mild NAUSEA Verified 12/06/23 18:31 morphine AdvReac Mild "MAKES ME Verified 12/06/23 18:31 FEEL LOOPY" tetracycline AdvReac Mild NAUSEA Verified 12/06/23 18:31 NSAIDS (Non-Steroidal AdvReac Due to Verified 12/06/23 18:31 Anti-Inflamma kidney problems tramadol [From Ultram] AdvReac Nausea Verified 12/06/23 18:31 Home Medications Medication Instructions Recorded Confirmed Type Oxygen Home #1 ea 02/28/19 03/03/22 History cholecalciferol (vitamin D3) 25 25 mcg PO QAM 02/28/19 12/21/23 History mcg (1,000 unit) capsule fluoxetine 20 mg capsule 20 mg PO HS 02/28/19 12/21/23 History acetaminophen 500 mg tablet 1,000 mg PO Q8H PRN Pain 01/28/21 12/21/23 History (Tylenol Extra Strength) albuterol sulfate 90 mcg/actuation 2 puff inhalation Q4H PRN 01/28/21 12/21/23 History aerosol inhaler Shortness Of Breath Or Wheezing biotin 300 mcg tablet 300 mcg PO DAILY 01/28/21 12/21/23 History gabapentin 300 mg capsule 300 mg PO TID 01/28/21 12/21/23 History lorazepam 0.5 mg tablet 0.5 mg PO DAILY PRN Anxiety 01/28/21 12/21/23 History diclofenac sodium 1 % topical gel 4 g topical QID PRN Pain 12/06/23 12/21/23 History divalproex 250 mg tablet,extended 750 mg PO HS 12/06/23 12/21/23 History release 24 hr fluticasone propionate 50 2 spray intranasal QAM PRN 12/06/23 12/21/23 History mcg/actuation nasal Congestion spray,suspension oxybutynin chloride 15 mg 15 mg PO QAM 12/06/23 12/21/23 History tablet,extended release 24 hr magnesium chloride 64 mg 128 mg (2 x 64 mg) PO BID #60 tabs 12/13/23 12/21/23 Rx (magnesium chloride) tablet,delayed release (Mag 64) atorvastatin 20 mg tablet (Lipitor) 20 mg PO DAILY 12/21/23 12/21/23 History Patient History Medical History Hyponatremia Asthma MRSA infection Aortic stenosis MODERATE PER 01/23/20 ECHO. ABRIL 1.1CM2, MG 23 MGUS (monoclonal gammopathy of unknown significance) Arthritis Degenerative disc disease Environmental and seasonal allergies IBS (irritable bowel syndrome) LACTOSE/GLUTEN FREE DIET History of endometrial cancer 2013 SURGERY/CHEMO/RADIATION Anemia Anxiety and depression Restless leg syndrome Hyperlipidemia Sleep apnea CPAP WITH O2 AT 2L HS Hip bursitis, left Incontinence Urge incontinence of urine Urinary urgency JOO (obstructive sleep apnea) Diastolic dysfunction Morbid obesity with BMI of 45.0-49.9, adult ALBERT (acute kidney injury) OCD (obsessive compulsive disorder) GERD (gastroesophageal reflux disease) Bipolar disorder Surgical History H/O umbilical hernia repair History of anesthesia reaction SLOW TO WAKE UP History of esophagogastroduodenoscopy (EGD) History of colonoscopy H/O breast biopsy H/O eye surgery LASER PROCEDURE RT/LEFT History of cataract surgery RT/LEFT S/P ectopic History of left hip replacement History of hysterectomy Hx of cholecystectomy History of carpal tunnel surgery Bilateral Status post total knee replacement, right Family History Mother , in 88yo Cervical cancer Status post cardiac surgery Surgery on "valves" Hypertension Father , 60yo Lung cancer Smoker Brother COPD (chronic obstructive pulmonary disease) Brother Lung cancer Brother Lung cancer Heart disease Defibrillator in place; Sister No problems noted. Sister Asthma Sister No problems noted. Son Muscular dystrophy Son No problems noted. Daughter No problems noted. Daughter No problems noted. Daughter No problems noted. 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 Other Information That Helps Us Care for You: No Feels Safe at Home: Yes Safety Concerns: Feels Safe At This Time Diet: regular caffeine: Yes (2-3 cups/day) during the past year weight has: remained stable Assistive Devices: CPAP, Denture - Upper, Denture - Lower, Glasses, Oxygen - at Night, Scooter/Electric Scooter, Walker and Wheelchair Results & Data Vital Signs (Past 12 Hours) Vital Signs Temp Pulse Pulse Resp BP BP Pulse Ox 12/22/23 11:51 36.6 C 71 18 99/61 L 97 12/22/23 07:49 12/22/23 07:46 36.3 C L 63 18 112/66 97 12/22/23 07:25 57 L 12/22/23 03:15 62 19 91 12/22/23 02:42 36.2 C L 57 L 16 104/62 99 O2 Del Method O2 Flow Rate FiO2 12/22/23 11:51 Room Air 12/22/23 07:49 Nasal Cannula 3 12/22/23 07:46 Nasal Cannula 3 12/22/23 07:25 12/22/23 03:15 3 12/22/23 02:42 CPAP Laboratory Results reviewed recent outpatient CBC as well as renal panel and magnesium. also reviewed blood work done since admission including CBC renal panel imaging test. she had very extensive imaging test done including CT angiogram as well as brain MRI
--- NOTE | 2023-12-22 13:26 | Hospitalist Progress Note ---
Date of Service December 22, 2023 Assessment & Plan (1) Hyponatremia: (2) Neck pain: (3) Facial droop: (4) Sleep apnea: (5) Hyperlipidemia: (6) Restless leg syndrome: (7) History of endometrial cancer: (8) MGUS (monoclonal gammopathy of unknown significance): (9) Asthma: Plan This is an 78yo F with PMH significant for HFrEF (55-60%, TTE 2022), moderate , hypertension, bronchial asthma, pulmonary hypertension, JOO on CPAP, GERD, prediabetes, left breast cancer status post surgery/radiation, endometrial cancer status post surgery/chemotherapy, urinary incontinence as per records, MGUS, chronic anemia (baseline hemoglobin of 10), anxiety/mood disorder, OCD presenting home with arm pain and generalized weakness. Patient was recently admitted from 12/05- with acute hyponatremia. She improved with urea, Lasix, and increased protein diet through out admission. Unfor tunately, urea was not covered by pt's insurance. Also recommended to be on a 1.5L fluid restriction daily, 80+ gram protein diet per day. Was discharged on Lasix 40 mg BID as well as Mag supplement BID nephro follow up. Hyponatremia Sodium of 129 on admission Serum osm 286, urine osm 514, urine sodium<10 On recent admission, nephro recommended urea 15mg BID (too expensive for patent), lasix 40mg PO BID, mag supplement BID, 1.5 L FR -> lasix dc'd in outpatient setting 2/2 lyte abnormalities Resumed urea BID Routine nephro consult, appreciate recs Cervical pain MRI cervical spine noting mild DDD Pain control Currently resolved Possible Facial droop Arm weakness and Pain confusion Per family AM of admission, resolved [employer] Head CT, CTA head/neck without acute abnormalities MRI brain with no stroke UA not suggestive of infection Facial droop and arm pain currently resolved Delirium precautions. Frequent reorientation, avoid sedating medication Consider followup for neurocognitive testing after discharge. HFrEF (55-60%, TTE 2022) Moderate Euvolemic Lasix held as above Bronchial asthma pulmonary hypertension Stable JOO CPAP HS Left breast cancer status post surgery endometrial cancer status post surgery Stable Mood disorder Anxiety Continue home divalproex, fluoxetine, PRN ativan DVT Ppx: SQ heparin Code status: DNR/DNI Dispo: PT/OT ordered for further recs Admission and Anticipated Discharge Date Admission Date: December 21, 2023 Subjective pt was seen sitting up in bed, eating. States that arm pain had resolved. was relieved to hear no stroke. daughter called and updated at about 4:40pm, concerned about episodes of confus ion with mom. Review of Systems Review of Systems: All systems reviewed & are unremarkable except as noted in Subjective Physical Exam Physical Exam: General: Alert, oriented. No acute distress Skin: No noted rashes or bruises Psych: Appropriate mood and affect Neuro: No gross deficits while sitting in bed. Right arma and shoulder nontender HEENT: NC/AT CV: RRR Resp: Breath sounds clear bilaterally, no increased effort of breathing. Abdomen: Soft, nontender, nondistended Extremities: Trace edema in lower extremities bilaterally. Results & Data Results & Data Vital Signs (Past 12 Hours) Vital Signs Temp Pulse Pulse Resp BP BP Pulse Ox 12/22/23 11:51 36.6 C 71 18 99/61 L 97 12/22/23 07:49 12/22/23 07:46 36.3 C L 63 18 112/66 97 12/22/23 07:25 57 L 12/22/23 03:15 62 19 91 12/22/23 02:42 36.2 C L 57 L 16 104/62 99 O2 Del Method O2 Flow Rate FiO2 12/22/23 11:51 Room Air 12/22/23 07:49 Nasal Cannula 3 12/22/23 07:46 Nasal Cannula 3 12/22/23 07:25 12/22/23 03:15 3 12/22/23 02:42 CPAP Diagnostic Findings Chest X-Ray 12/21/23 11:24 XR chest 1V portable CLINICAL HISTORY: Chest pain, nonspecific TECHNIQUE: Single frontal radiograph of the chest was obtained. Comparison: Comparison is made to chest radiograph 12/06/2023 FINDINGS: A port catheter is seen. Cardiomegaly is noted. The aortic arch is calcified. The lungs are clear. No evidence of pleural effusion or pneumothorax. IMPRESSION: No acute chest disease. Cardiomegaly is noted. ACT 112: Negative or not required by law. Electronically signed by: Uche Hollins M.D. 12/21/2023 11:48 AM Shoulder X-Ray 12/21/23 11:29 XR shoulder RT min 2V routine CLINICAL HISTORY: Right shoulder pain. COMPARISON STUDY: None. FINDINGS: No fracture or dislocation within the right shoulder. The right clavicle is intact. A right Port-A-Cath terminates in the SVC. A 1 cm calcification at the distal supraspinatus tendon consistent with a calcific tendinitis. Mild to moderate osteoarthritis at the acromioclavicular and glenohumeral joints. IMPRESSION: 1. No acute fracture or dislocation within the right shoulder. 2. Supraspinatus calcific tendinitis. 3. [id number] osteoarthritis. ACT 112: Negative or not required by law. Electronically signed by: Jv Busby M.D. 12/21/2023 12:[address] 12/21/23 12:45 CT head/brain wo con CLINICAL HISTORY: ?R lower face weakness, R shoulder pain?weak Technique: Contiguous axial CT images of the head were acquired from the base of the skull to the vertex without intravenous contrast administration. Images were viewed in brain, subdural and bone windows. Automated dose lowering techniques and/or adjustment according to patient size were utilized for this exam. Comparison: Comparison is made to CT head 12/06/2023 Findings: The ventricles, basal cisterns, and cerebral sulci are normal. There is no acute intracranial hemorrhage or evidence of acute territorial infarction. Neither mass effect, shift of the midline structures, nor abnormal extra-axial fluid collections are shown. Imaged portions of the paranasal sinuses and mastoid air cells are clear. The orbits appear normal. There are no acute fractures of the calvaria or scalp swelling. Impression: No acute intracranial hemorrhage, no evidence of acute territorial infarction or other acute intracranial disease process. ACT 112: Negative or not required by law. Electronically signed by: Uche Hollins M.D. 12/21/2023 1:32 PM Head CTA 12/21/23 12:45 CT angio head w con CLINICAL HISTORY: 78 years-old Female with ?R lower face weakness, R shoulder pain?weak. Acute strokelike symptoms. COMPARISON STUDY: CTA neck of same day, head CT 12/06/2023 TECHNIQUE: Following the IV administration of 120 mL of Optiray, CT angiogram of the brain was performed from the skull base to the vertex. Images are reviewed in the axial, sagittal, and coronal planes. 3-D MIPS images are created and assessed. IV contrast was administered without complication. All measurements were obtained according to NASCET criteria. A dose lowering technique was utilized adhering to the principles of ALARA. FINDINGS: CT ANGIOGRAM OF THE BRAIN: The imaged bilateral internal carotid arteries are patent. The bilateral anterior and middle cerebral arteries are also patent. The vertebrobasilar system and posterior cerebral arteries are widely patent. Tortuous basilar artery. There is no aneurysm, high-grade stenosis, or proximal branch occlusion identified. Dural sinuses appear patent. Involutional changes with chronic microvascular ischemic disease. Chronic appearing subcentimeter left cerebellar lacunar infarct. IMPRESSION: Unremarkable CTA of the head. ACT 112: Negative or not required by law. The above report was generated using voice recognition software. It may contain grammatical, syntax or spelling errors. Electronically signed by: Yony Flowers M.D. 12/21/2023 1:34 PM Neck CTA 12/21/23 12:45 NECK CTA HISTORY: ?R lower face weakness, R shoulder pain?weak TECHNIQUE: Multiaxial CT images of the neck were performed following the intravenous administration of contrast to evaluate the major cervical vessels. 3D/MIP images were also obtained. Sagittal and coronal reformats were reviewed. All measurements were calculated based on NASCET criteria. A dose lowering technique was utilized adhering to the principles of ALARA. COMPARISON STUDY: None. FINDINGS: The aortic arch and proximal great vessels are widely patent. There is no significant stenosis, occlusion, or dissection identified within the bilateral common carotid, internal carotid, or vertebral arteries. Partially visualized right jugular catheter. Left chest wall posttreatment changes again noted. Mild calcified plaque within the bilateral carotid bifurcations. Mild irregularity within the mid internal carotid arteries without significant stenosis. This suggests fibromuscular dysplasia. IMPRESSION: 1. No significant stenosis, occlusion, or dissection identified within the carotid or vertebral arteries. 2. Mild irregularity the mid internal carotid arteries suggestive of fibromuscular dysplasia. ACT 112: Negative or not required by law. Electronically signed by: Jv Busby M.D. 12/21/2023 1:56 PM Brain MRI 12/21/23 17:04 Exam(s): MRI HEAD W/WO Contrast IV Amt: 8ml gadavist EXAM: MR Head Without and With Intravenous Contrast CLINICAL HISTORY: Reason for exam: stroke eval, facial droop at home. TECHNIQUE: Magnetic resonance images of the head/brain without and with intravenous contrast in multiple planes. CONTRAST: Patient received 8ml gadavist of IV contrast COMPARISON: Prior head CT from December 21, 2023. FINDINGS: Brain: Mild nonspecific white matter changes. Remote ischemic injury of the left cerebellum. No mass. No hemorrhage. No acute infarct. The flow voids at the base of the brain are intact. Normal enhancement of the brain parenchyma. The dural venous sinuses are patent. Ventricles: Unremarkable. No ventriculomegaly. Bones/joints: Unremarkable. No acute fracture. Sinuses: Chronic left maxillary and ethmoid sinusitis. No acute sinusitis. Mastoid air cells: Unremarkable as visualized. No mastoid effusion. Orbits: Unremarkable as visualized. IMPRESSION: No evidence of acute intracranial pathology. Electronically signed by: Rena Garay MD 12/22/23 01:15 AM Cervical Spine MRI 12/21/23 17:04 Exam(s): MRI C SPINE IV Amt: 8ml gadavist EXAM: MR Cervical Spine With Intravenous Contrast CLINICAL HISTORY: Reason for exam: cervical radiculopathy. TECHNIQUE: Magnetic resonance images of the cervical spine with intravenous contrast in multiple planes. CONTRAST: Patient received 8ml gadavist of IV contrast COMPARISON: Prior CT angiogram of the neck from December 21, 2023. FINDINGS: Vertebrae: There are 7 cervical type vertebral bodies with a mild generalized curve to the left and straightening normal cervical lordosis. There is normal vertebral body height and alignment. The bone marrow signal is normal. No acute fracture. Spinal cord: The cord is normal size, shape and signal characteristics. The craniocervical junction is normal without evidence of Chiari malformation. No abnormal enhancement. Soft tissues: The cervical flow voids are intact. DISCS/SPINAL CANAL/NEURAL FORAMINA: C2-C3: Unremarkable. No significant disc disease. No stenosis. C3-C4: Unremarkable. No significant disc disease. No stenosis. C4-C5: Unremarkable. No significant disc disease. No stenosis. C5-C6: There is mild disc degeneration with angular disc bulge flattening the ventral thecal sac. C6-C7: There is mild disc degeneration with annular disc bulge flattening the ventral thecal sac. C7-T1: Unremarkable. No significant disc disease. No stenosis. IMPRESSION: No evidence of acute cervical spine pathology. Electronically signed by: Rena Garay MD 12/22/23 01:44 AM
[2023-12-22 14:51] LABS: Appearance Urine Clear (Clear); Bacteria Urine Automated None Seen (None Seen); Bilirubin Urine Negative (Negative); Blood Urine Negative (Negative); Color Urine Yellow; Glucose Urine UA Negative (Negative); Ketones Urine Negative (Negative); Leukocyte Esterase Urine 1+ (Negative); Nitrite Urine Negative (Negative); Protein Urine Negative (Negative); Specific Gravity Urine 1.023 (1.000-1.030); Urobilinogen Urine Negative (Negative); WBC Urine Automated 0-5 /hpf (0-5); pH Urine 5.5 (4.5-7.5)
[2023-12-23 07:18] LABS: Hemoglobin 8.5 g/dl (12.0-16.0); Mean Corpuscular Hemoglobin 29.7 pg (25.0-34.0); Mean Corpuscular Volume 87.4 fL (80.0-100.0); Mean Platelet Volume 11.5 fL (9.4-12.4); Platelet Count 156 K/uL (130-400); RDW Coefficient of Variation 14.4 % (11.5-14.5); RDW Standard Deviation 45.9 fL (36.4-46.3); Red Blood Count 2.86 M/uL (4.20-5.40); White Blood Count 4.11 K/ul (4.8-10.8)
[2023-12-23 07:55] LABS: BUN Creatinine Ratio 80.2 (10-20); Calcium 9.6 mg/dl (8.6-10.3); Creatinine Clr Calc Pharmacy 53.4 ml/min; Est GFR (African American) 73.9 ml/min; Est GFR (Non-African American) 63.8 ml/min; Potassium 4.2 mmol/L (3.5-5.1)
[2023-12-23] MEDS: TROLAMINE SALICYLATE 10% CRM 255 APPLN/85 GM TUBE EXT PRN (08:07)
[2023-12-23 11:34] VITALS: RESP 18
--- NOTE | 2023-12-23 14:23 | Hospitalist Progress Note ---
Date of Service December 23, 2023 Assessment & Plan (1) Hyponatremia: (2) Neck pain: (3) Facial droop: (4) Sleep apnea: (5) Hyperlipidemia: (6) Restless leg syndrome: (7) History of endometrial cancer: (8) MGUS (monoclonal gammopathy of unknown significance): (9) Asthma: Plan This is an 78yo F with PMH significant for HFrEF (55-60%, TTE 2022), moderate , hypertension, bronchial asthma, pulmonary hypertension, JOO on CPAP, GERD, prediabetes, left breast cancer status post surgery/radiation, endometrial cancer status post surgery/chemotherapy, urinary incontinence as per records, MGUS, chronic anemia (baseline hemoglobin of 10), anxiety/mood disorder, OCD presenting home with arm pain and generalized weakness. Patient was recently admitted from 12/05- with acute hyponatremia. She improved with urea, Lasix, and increased protein diet through out admission. Unfor tunately, urea was not covered by pt's insurance. Also recommended to be on a 1.5L fluid restriction daily, 80+ gram protein diet per day. Was discharged on Lasix 40 mg BID as well as Mag supplement BID nephro follow up. Hyponatremia Sodium of 129 on admission Serum osm 286, urine osm 514, urine sodium<10 On recent admission, nephro recommended urea 15mg BID (too expensive for patent), lasix 40mg PO BID, mag supplement BID, 1.5 L FR -> lasix dc'd in outpatient setting 2/2 lyte abnormalities Resumed urea BID Routine nephro consult, appreciate recs improved to 134 today Cervical pain MRI cervical spine noting mild DDD Pain control Currently resolved Possible Facial droop Arm weakness and Pain confusion Per family AM of admission, resolved [employer] Head CT, CTA head/neck without acute abnormalities MRI brain with no stroke UA not suggestive of infection Facial droop and arm pain currently resolved Delirium precautions. Frequent reorientation, avoid sedating medication Consider followup for neurocognitive testing after discharge. HFrEF (55-60%, TTE 2022) Moderate Euvolemic Lasix held as above Bronchial asthma pulmonary hypertension Stable JOO CPAP HS Left breast cancer status post surgery endometrial cancer status post surgery Stable Mood disorder Anxiety Continue home divalproex, fluoxetine, PRN ativan DVT Ppx: SQ heparin Code status: DNR/DNI Dispo: PT/OT ordered for further recs Admission and Anticipated Discharge Date Admission Date: December 21, 2023 Subjective pt was seen laying in bed comfortably Denied acute concerns. No rturn of arm pain or facial droop Not weak, states she worked with PT today Review of Systems Review of Systems: All systems reviewed & are unremarkable except as noted in Subjective Physical Exam Physical Exam: General: Alert, oriented. No acute distress Skin: No noted rashes or bruises Psych: Appropriate mood and affect Neuro: No gross deficits while sitting in bed. Right arm and shoulder nontender HEENT: NC/AT CV: RRR, + murmur Resp: Breath sounds clear bilaterally, no increased effort of breathing. Abdomen: Soft, nontender, nondistended Extremities: Trace edema in lower extremities bilaterally. Results & Data Results & Data Vital Signs (Past 12 Hours) Vital Signs Temp Pulse Pulse Resp BP Pulse Ox O2 Del Method 12/23/23 11:33 36.7 C 65 18 89/47 L 95 Room Air 12/23/23 08:18 36.9 C 68 16 92/59 L 96 Room Air 12/23/23 03:31 65 12 95 O2 Flow Rate 12/23/23 11:33 12/23/23 08:18 12/23/23 03:31 3 Diagnostic Findings Chest X-Ray 12/21/23 11:24 XR chest 1V portable CLINICAL HISTORY: Chest pain, nonspecific TECHNIQUE: Single frontal radiograph of the chest was obtained. Comparison: Comparison is made to chest radiograph 12/06/2023 FINDINGS: A port catheter is seen. Cardiomegaly is noted. The aortic arch is calcified. The lungs are clear. No evidence of pleural effusion or pneumothorax. IMPRESSION: No acute chest disease. Cardiomegaly is noted. ACT 112: Negative or not required by law. Electronically signed by: Uche Hollins M.D. 12/21/2023 11:48 AM Shoulder X-Ray 12/21/23 11:29 XR shoulder RT min 2V routine CLINICAL HISTORY: Right shoulder pain. COMPARISON STUDY: None. FINDINGS: No fracture or dislocation within the right shoulder. The right clavicle is intact. A right Port-A-Cath terminates in the SVC. A 1 cm calcification at the distal supraspinatus tendon consistent with a calcific te ndinitis. Mild to moderate osteoarthritis at the acromioclavicular and glenohumeral joints. IMPRESSION: 1. No acute fracture or dislocation within the right shoulder. 2. Supraspinatus calcific tendinitis. 3. [id number] osteoarthritis. ACT 112: Negative or not required by law. Electronically signed by: Jv Busby M.D. 12/21/2023 12:[address] 12/21/23 12:45 CT head/brain wo con CLINICAL HISTORY: ?R lower face weakness, R shoulder pain?weak Technique: Contiguous axial CT images of the head were acquired from the base of the skull to the vertex without intravenous contrast administration. Images were viewed in brain, subdural and bone windows. Automated dose lowering techniques and/or adjustment according to patient size were utilized for this exam. Comparison: Comparison is made to CT head 12/06/2023 Findings: The ventricles, basal cisterns, and cerebral sulci are normal. There is no acute intracranial hemorrhage or evidence of acute territorial infarction. Neither mass effect, shift of the midline structures, nor abnormal extra-axial fluid collections are shown. Imaged portions of the paranasal sinuses and mastoid air cells are clear. The orbits appear normal. There are no acute fractures of the calvaria or scalp swelling. Impression: No acute intracranial hemorrhage, no evidence of acute territorial infarction or other acute intracranial disease process. ACT 112: Negative or not required by law. Electronically signed by: Uche Hollins M.D. 12/21/2023 1:32 PM Head CTA 12/21/23 12:45 CT angio head w con CLINICAL HISTORY: 78 years-old Female with ?R lower face weakness, R shoulder pain?weak. Acute strokelike symptoms. COMPARISON STUDY: CTA neck of same day, head CT 12/06/2023 TECHNIQUE: Following the IV administration of 120 mL of Optiray, CT angiogram of the brain was performed from the skull base to the vertex. Images are reviewed in the axial, sagittal, and coronal planes. 3-D MIPS images are created and assessed. IV contrast was administered without complication. All measurements were obtained according to NASCET criteria. A dose lowering technique was utilized adhering to the principles of ALARA. FINDINGS: CT ANGIOGRAM OF THE BRAIN: The imaged bilateral internal carotid arteries are patent. The bilateral anterior and middle cerebral arteries are also patent. The vertebrobasilar system and posterior cerebral arteries are widely patent. Tortuous basilar artery. There is no aneurysm, high-grade stenosis, or proximal branch occlusion identified. Dural sinuses appear patent. Involutional changes with chronic microvascular ischemic disease. Chronic appearing subcentimeter left cerebellar lacunar infarct. IMPRESSION: Unremarkable CTA of the head. ACT 112: Negative or not required by law. The above report was generated using voice recognition software. It may contain grammatical, syntax or spelling errors. Electronically signed by: Yony Flowers M.D. 12/21/2023 1:34 PM Neck CTA 12/21/23 12:45 NECK CTA HISTORY: ?R lower face weakness, R shoulder pain?weak TECHNIQUE: Multiaxial CT images of the neck were performed following the intravenous administration of contrast to evaluate the major cervical vessels. 3D/MIP images were also obtained. Sagittal and coronal reformats were reviewed. All measurements were calculated based on NASCET criteria. A dose lowering technique was utilized adhering to the principles of ALARA. COMPARISON STUDY: None. FINDINGS: The aortic arch and proximal great vessels are widely patent. There is no significant stenosis, occlusion, or dissection identified within the bilateral common carotid, internal carotid, or vertebral arteries. Partially visualized right jugular catheter. Left chest wall posttreatment changes again noted. Mild calcified plaque within the bilateral carotid bifurcations. Mild irregularity within the mid internal carotid arteries without significant stenosis. This suggests fibromuscular dysplasia. IMPRESSION: 1. No significant stenosis, occlusion, or dissection identified within the bonner tid or vertebral arteries. 2. Mild irregularity the mid internal carotid arteries suggestive of fibromuscular dysplasia. ACT 112: Negative or not required by law. Electronically signed by: Jv Busby M.D. 12/21/2023 1:56 PM Brain MRI 12/21/23 17:04 Exam(s): MRI HEAD W/WO Contrast IV Amt: 8ml gadavist EXAM: MR Head Without and With Intravenous Contrast CLINICAL HISTORY: Reason for exam: stroke eval, facial droop at home. TECHNIQUE: Magnetic resonance images of the head/brain without and with intravenous contrast in multiple planes. CONTRAST: Patient received 8ml gadavist of IV contrast COMPARISON: Prior head CT from December 21, 2023. FINDINGS: Brain: Mild nonspecific white matter changes. Remote ischemic injury of the left cerebellum. No mass. No hemorrhage. No acute infarct. The flow voids at the base of the brain are intact. Normal enhancement of the brain parenchyma. The dural venous sinuses are patent. Ventricles: Unremarkable. No ventriculomegaly. Bones/joints: Unremarkable. No acute fracture. Sinuses: Chronic left maxillary and ethmoid sinusitis. No acute sinusitis. Mastoid air cells: Unremarkable as visualized. No mastoid effusion. Orbits: Unremarkable as visualized. IMPRESSION: No evidence of acute intracranial pathology. Electronically signed by: Rena Garay MD 12/22/23 01:15 AM Cervical Spine MRI 12/21/23 17:04 Exam(s): MRI C SPINE IV Amt: 8ml gadavist EXAM: MR Cervical Spine With Intravenous Contrast CLINICAL HISTORY: Reason for exam: cervical radiculopathy. TECHNIQUE: Magnetic resonance images of the cervical spine with intravenous contrast in multiple planes. CONTRAST: Patient received 8ml gadavist of IV contrast COMPARISON: Prior CT angiogram of the neck from December 21, 2023. FINDINGS: Vertebrae: There are 7 cervical type vertebral bodies with a mild generalized curve to the left and straightening normal cervical lordosis. There is normal vertebral body height and alignment. The bone marrow signal is normal. No acute fracture. Spinal cord: The cord is normal size, shape and signal characteristics. The craniocervical junction is normal without evidence of Chiari malformation. No abnormal enhancement. Soft tissues: The cervical flow voids are intact. DISCS/SPINAL CANAL/NEURAL FORAMINA: C2-C3: Unremarkable. No significant disc disease. No stenosis. C3-C4: Unremarkable. No significant disc disease. No stenosis. C4-C5: Unremarkable. No significant disc disease. No stenosis. C5-C6: There is mild disc degeneration with angular disc bulge flattening the ventral thecal sac. C6-C7: There is mild disc degeneration with annular disc bulge flattening the ventral thecal sac. C7-T1: Unremarkable. No significant disc disease. No stenosis. IMPRESSION: No evidence of acute cervical spine pathology. Electronically signed by: Rena Garay MD 12/22/23 01:44 AM
[2023-12-23] MEDS: DICLOFENAC SOD 1% GEL 100 GM TUBE EXT SCH (20:07)
[2023-12-24] MEDS ORDERED: UREA (UREA-NA) 15 GM PACK PO SCH
[2023-12-24 06:49] LABS: Hematocrit (blood only) 25.5 % (37.0-47.0); Hemoglobin 8.6 g/dl (12.0-16.0); Mean Corpuscular Hemoglobin 29.8 pg (25.0-34.0); Mean Corpuscular Hgb Conc 33.7 g/dL (32.0-36.0); Mean Corpuscular Volume 88.2 fL (80.0-100.0); Mean Platelet Volume 11.1 fL (9.4-12.4); Platelet Count 172 K/uL (130-400); RDW Coefficient of Variation 14.5 % (11.5-14.5); RDW Standard Deviation 46.6 fL (36.4-46.3); Red Blood Count 2.89 M/uL (4.20-5.40); White Blood Count 3.34 K/ul (4.8-10.8)
[2023-12-24 07:21] LABS: Calcium 9.3 mg/dl (8.6-10.3); Creatinine Clr Calc Pharmacy 51.4 ml/min; Est GFR (African American) 70.9 ml/min; Est GFR (Non-African American) 61.2 ml/min; Magnesium 1.8 mg/dl (1.7-2.4); Phosphorus 2.8 mg/dl (2.5-4.9); Potassium 4.7 mmol/L (3.5-5.1)
[2023-12-24 08:15] VITALS: BP 101/65; TEMP 97.5; O2SAT 94
--- NOTE | 2023-12-24 09:27 | Discharge Summary ---
Discharge Summary Date of Service December 24, 2023 Principal Dx & Hospital Course #1 = Principal Diagnosis (1) Hyponatremia: (2) Neck pain: (3) Facial droop: (4) Sleep apnea: (5) Hyperlipidemia: (6) Restless leg syndrome: (7) History of endometrial cancer: (8) MGUS (monoclonal gammopathy of unknown significance): (9) Asthma: Plan This is an 78yo F with PMH significant for HFrEF (55-60%, TTE 2022), moderate , hypertension, bronchial asthma, pulmonary hypertension, JOO on CPAP, GERD, prediabetes, left breast cancer status post surgery/radiation, endometrial cancer status post surgery/chemotherapy, urinary incontinence as per records, MGUS, chronic anemia (baseline hemoglobin of 10), anxiety/mood disorder, OCD presenting from home with arm pain and generalized weakness. Patient was recently admitted from with acute hyponatremia. She improved with urea, Lasix, and increased protein diet through out admission. Unfortunately, urea was not covered by pt's insurance. Also recommended to be on a 1.5L fluid restriction daily, 80+ gram protein diet per day. Was discharged on Lasix 40 mg BID as well as Mag supplement BID nephro follow up at that time. She was admitted once more and treated for the following: Hyponatremia Sodium of 129 on admission Serum osm 286, urine osm 514, urine sodium<10 On recent admission, nephro recommended urea 15mg BID (too expensive for patient), lasix 40mg PO BID, mag supplement BID, 1.5 L FR -> lasix dc'd in outpatient setting 2/2 lyte abnormalities Resumed urea BID this admission Routine nephro consult, appreciate recs -nephrology recommended discharge with urea 15g DAILY -per pt and daughter, they will get it from the pharmacy. Pt also discharged with a home pack for 2 doses Sodium 135 on day of discharge. Cervical pain DDD MRI cervical spine noting mild DDD Pain control Currently resolved PCP followup Possible Facial droop Arm weakness and Pain Confusion Per family AM of admission, resolved [employer] Head CT, CTA head/neck without acute abnormalities MRI brain with no stroke UA not suggestive of infection Facial droop and arm pain currently resolved Delirium precautions. Frequent reorientation, avoid sedating medication Consider followup for neurocognitive testing after discharge. PCP followup HFrEF (55-60%, TTE 2022) Moderate Euvolemic Lasix held as above PCP f/u Bronchial asthma pulmonary hypertension Stable JOO CPAP HS Left breast cancer status post surgery endometrial cancer status post surgery Stable Mood disorder Anxiety Continue home divalproex, fluoxetine, PRN ativan Nasal abrasion/pain Pt states from use of CPAP qhs Topical pain relief with diclofenac while hospitalized Healing PCP followup Notes For Next Care Provider Please ensure followup with Nephrology in 1-2 weeks after discharge Consider neurocognitive followup/workup for episodes of confusion Medication Changes From Visit Per Nephrology Dr Arcos: Urea 15g daily Admission HPI Per Admitting Provider This is an 78yo F with PMH significant for HFrEF (55-60%, TTE 2022), moderate , hypertension, bronchial asthma, pulmonary hypertension, JOO on CPAP, GERD, prediabetes, left breast cancer status post surgery/radiation, endometrial cancer status post surgery/chemotherapy, urinary incontinence as per records, MGUS, chronic anemia (baseline hemoglobin of 10), anxiety/mood disorder, OCD presenting home with arm pain and generalized weakness. Patient was recently admitted to our service from 12/05- with acute hyponatremia. She improved with urea, Lasix, and increased protein diet through out admission. Unfortunately, urea was not covered by pt's insurance and patient has not been taking. Also recommended to be on a 1.5L fluid restriction daily, 80+ gram protein diet per day. Was discharged on Lasix 40 mg BID as well as Mag supplement BID with home nursing services through [facility]. Follow up with nephro scheduled for 01/30. Presenting today with neck pain extending to R arm and radiating down arm intermittently. Daughter at bedside states patient was weak when she woke up. questioned a facial droop after she put in her dentures that has since resolved since arrival here. Has been trying to increase protein. Was not taking urea at home. No F/C, lightheadedness, CP, SOB, N/V, abd pain, dysuria, diarrhea or constipation. Admission Exam Per Admitting Provider GENERAL APPEARANCE: AxOx4, agitated 2/2 pain in neck HEENT: NC, AT. MMM. EOMI, clear conjunctiva, oropharynx clear. NECK: Supple without lymphadenopathy. tenderness along paraspinal muscles and over C6-C7, pain reproduced with rightward nod/movement of head. s HEART: Normal rate and regular rhythm, normal S1/S1, YOEL LUNGS: CTAB, moving air well. No crackles or wheezes are heard. ABDOMEN: Soft, nontender, nondistended with good bowel sounds heard. BACK: No CVAT, no obvious deformity. EXTREMITIES: Without cyanosis, clubbing or edema. NEUROLOGICAL: Grossly nonfocal. Alert and oriented, moving all 4 extremities. CN not formally tested but appear grossly intact. strength 4/5 RLE Skin: Warm and dry without any rash. Discharge Exam General: Alert, oriented. No acute distress Skin: No noted rashes or bruises Psych: Appropriate mood and affect Neuro: No gross deficits while sitting in bed. Right arm and shoulder nontender HEENT: NC/AT, healing abrasion on nose CV: RRR, + murmur Resp: Breath sounds clear bilaterally, no increased effort of breathing. Abdomen: Soft, nontender, nondistended Extremities: Trace edema in lower extremities bilaterally. Updated Medication List Medication Instructions Recorded Confirmed Type Oxygen Home #1 ea 02/28/19 03/03/22 History cholecalciferol (vitamin D3) 25 25 mcg PO QAM 02/28/19 12/21/23 History mcg (1,000 unit) capsule fluoxetine 20 mg capsule 20 mg PO HS 02/28/19 12/21/23 History acetaminophen 500 mg tablet 1,000 mg PO Q8H PRN Pain 01/28/21 12/21/23 History (Tylenol Extra Strength) albuterol sulfate 90 mcg/actuation 2 puff inhalation Q4H PRN 01/28/21 12/21/23 History aerosol inhaler Shortness Of Breath Or Wheezing biotin 300 mcg tablet 300 mcg PO DAILY 01/28/21 12/21/23 History gabapentin 300 mg capsule 300 mg PO TID 01/28/21 12/21/23 History lorazepam 0.5 mg tablet 0.5 mg PO DAILY PRN Anxiety 01/28/21 12/21/23 History diclofenac sodium 1 % topical gel 4 g topical QID PRN Pain 12/06/23 12/21/23 History divalproex 250 mg tablet,extended 750 mg PO HS 12/06/23 12/21/23 History release 24 hr fluticasone propionate 50 2 spray intranasal QAM PRN 12/06/23 12/21/23 History mcg/actuation nasal Congestion spray,suspension oxybutynin chloride 15 mg 15 mg PO QAM 12/06/23 12/21/23 History tablet,extended release 24 hr magnesium chloride 64 mg 128 mg (2 x 64 mg) PO BID #60 tabs 12/13/23 12/21/23 Rx (magnesium chloride) tablet,delayed release (Mag 64) atorvastatin 20 mg tablet (Lipitor) 20 mg PO DAILY 12/21/23 12/21/23 History urea 15 gram oral powder packet 15 g PO DAILY #8 ea 12/24/23 Rx (Ure-Na) Hospital Stay Data Consultations 12/21/23 16:09 ED Decision to Admit Stat 12/21/23 16:38 Consult Nephrology Routine Diagnostic Imagining Performed 12/21/23 12:45 CT angio head w con Stat CT angio neck with con Stat CT head/brain wo con Stat 12/21/23 17:04 MR brain wo/w con Urgent MRI Cervical [MR cervical spine wo/w con] Urgent Chest X-Ray 12/21/23 11:24 XR chest 1V portable CLINICAL HISTORY: Chest pain, nonspecific TECHNIQUE: Single frontal radiograph of the chest was obtained. Comparison: Comparison is made to chest radiograph 12/06/2023 FINDINGS: A port catheter is seen. Cardiomegaly is noted. The aortic arch is calcified. The lungs are clear. No evidence of pleural effusion or pneumothorax. IMPRESSION: No acute chest disease. Cardiomegaly is noted. ACT 112: Negative or not required by law. Electronically signed by: Uche Hollins M.D. 12/21/2023 11:48 AM Shoulder X-Ray 12/21/23 11:29 XR shoulder RT min 2V routine CLINICAL HISTORY: Right shoulder pain. COMPARISON STUDY: None. FINDINGS: No fracture or dislocation within the right shoulder. The right clavicle is intact. A right Port-A-Cath terminates in the SVC. A 1 cm calcification at the distal supraspinatus tendon consistent with a calcific tendinitis. Mild to moderate osteoarthritis at the acromioclavicular and glenohumeral joints. IMPRESSION: 1. No acute fracture or dislocation within the right shoulder. 2. Supraspinatus calcific tendinitis. 3. [id number] osteoarthritis. ACT 112: Negative or not required by law. Electronically signed by: Jv Busby M.D. 12/21/2023 12:[address] 12/21/23 12:45 CT head/brain wo con CLINICAL HISTORY: ?R lower face weakness, R shoulder pain?weak Technique: Contiguous axial CT images of the head were acquired from the base of the skull to the vertex without intravenous contrast administration. Images were viewed in brain, subdural and bone windows. Automated dose lowering techniques and/or adjustment according to patient size were utilized for this exam. Comparison: Comparison is made to CT head 12/06/2023 Findings: The ventricles, basal cisterns, and cerebral sulci are normal. There is no acute intracranial hemorrhage or evidence of acute territorial infarction. Neither mass effect, shift of the midline structures, nor abnormal extra-axial fluid collections are shown. Imaged portions of the paranasal sinuses and mastoid air cells are clear. The orbits appear normal. There are no acute fractures of the calvaria or scalp swelling. Impression: No acute intracranial hemorrhage, no evidence of acute territorial infarction or other acute intracranial disease process. ACT 112: Negative or not required by law. Electronically signed by: Uche Hollins M.D. 12/21/2023 1:32 PM Head CTA 12/21/23 12:45 CT angio head w con CLINICAL HISTORY: 78 years-old Female with ?R lower face weakness, R shoulder pain?weak. Acute strokelike symptoms. COMPARISON STUDY: CTA neck of same day, head CT 12/06/2023 TECHNIQUE: Following the IV administration of 120 mL of Optiray, CT angiogram of the brain was performed from the skull base to the vertex. Images are reviewed in the axial, sagittal, and coronal planes. 3-D MIPS images are created and assessed. IV contrast was administered without complication. All measurements were obtained according to NASCET criteria. A dose lowering technique was utilized adhering to the principles of ALARA. FINDINGS: CT ANGIOGRAM OF THE BRAIN: The imaged bilateral internal carotid arteries are patent. The bilateral anterior and middle cerebral arteries are also patent. The vertebrobasilar system and posterior cerebral arteries are widely patent. Tortuous basilar artery. There is no aneurysm, high-grade stenosis, or proximal branch occlusion identified. Dural sinuses appear patent. Involutional changes with chronic microvascular ischemic disease. Chronic appearing subcentimeter left cerebellar lacunar infarct. IMPRESSION: Unremarkable CTA of the head. ACT 112: Negative or not required by law. The above report was generated using voice recognition software. It may contain grammatical, syntax or spelling errors. Electronically signed by: Yony Flowers M.D. 12/21/2023 1:34 PM Neck CTA 12/21/23 12:45 NECK CTA HISTORY: ?R lower face weakness, R shoulder pain?weak TECHNIQUE: Multiaxial CT images of the neck were performed following the intravenous administration of contrast to evaluate the major cervical vessels. 3D/MIP images were also obtained. Sagittal and coronal reformats were reviewed. All measurements were calculated based on NASCET criteria. A dose lowering technique was utilized adhering to the principles of ALARA. COMPARISON STUDY: None. FINDINGS: The aortic arch and proximal great vessels are widely patent. There is no significant stenosis, occlusion, or dissection identified within the bilateral common carotid, internal carotid, or vertebral arteries. Partially visualized right jugular catheter. Left chest wall posttreatment changes again noted. Mild calcified plaque within the bilateral carotid bifurcations. Mild irregularity within the mid internal carotid arteries without significant stenosis. This suggests fibromuscular dysplasia. IMPRESSION: 1. No significant stenosis, occlusion, or dissection identified within the carotid or vertebral arteries. 2. Mild irregularity the mid internal carotid arteries suggestive of fibromuscular dysplasia. ACT 112: Negative or not required by law. Electronically signed by: Jv Busby M.D. 12/21/2023 1:56 PM Brain MRI 12/21/23 17:04 Exam(s): MRI HEAD W/WO Contrast IV Amt: 8ml gadavist EXAM: MR Head Without and With Intravenous Contrast CLINICAL HISTORY: Reason for exam: stroke eval, facial droop at home. TECHNIQUE: Magnetic resonance images of the head/brain without and with intravenous contrast in multiple planes. CONTRAST: Patient received 8ml gadavist of IV contrast COMPARISON: Prior head CT from December 21, 2023. FINDINGS: Brain: Mild nonspecific white matter changes. Remote ischemic injury of the left cerebellum. No mass. No hemorrhage. No acute infarct. The flow voids at the base of the brain are intact. Normal enhancement of the brain parenchyma. The dural venous sinuses are patent. Ventricles: Unremarkable. No ventriculomegaly. Bones/joints: Unremarkable. No acute fracture. Sinuses: Chronic left maxillary and ethmoid sinusitis. No acute sinusitis. Mastoid air cells: Unremarkable as visualized. No mastoid effusion. Orbits: Unremarkable as visualized. IMPRESSION: No evidence of acute intracranial pathology. Electronically signed by: Rena Garay MD 12/22/23 01:15 AM Cervical Spine MRI 12/21/23 17:04 Exam(s): MRI C SPINE IV Amt: 8ml gadavist EXAM: MR Cervical Spine With Intravenous Contrast CLINICAL HISTORY: Reason for exam: cervical radiculopathy. TECHNIQUE: Magnetic resonance images of the cervical spine with intravenous contrast in multiple planes. CONTRAST: Patient received 8ml gadavist of IV contrast COMPARISON: Prior CT angiogram of the neck from December 21, 2023. FINDINGS: Vertebrae: There are 7 cervical type vertebral bodies with a mild generalized curve to the left and straightening normal cervical lordosis. There is normal vertebral body height and alignment. The bone marrow signal is normal. No acute fracture. Spinal cord: The cord is normal size, shape and signal characteristics. The craniocervical junction is normal without evidence of Chiari malformation. No abnormal enhancement. Soft tissues: The cervical flow voids are intact. DISCS/SPINAL CANAL/NEURAL FORAMINA: C2-C3: Unremarkable. No significant disc disease. No stenosis. C3-C4: Unremarkable. No significant disc disease. No stenosis. C4-C5: Unremarkable. No significant disc disease. No stenosis. C5-C6: There is mild disc degeneration with angular disc bulge flattening the ventral thecal sac. C6-C7: There is mild disc degeneration with annular disc bulge flattening the ventral thecal sac. C7-T1: Unremarkable. No significant disc disease. No stenosis. IMPRESSION: No evidence of acute cervical spine pathology. Electronically signed by: Rena Garay MD 12/22/23 01:44 AM Pending Results Patient Have Any Pending Studies at Discharge: No Discharge Instructions Given to Patient (Per Discharging Provider) Kathy, You were admitted and a stroke was ruled out. We treated your low sodium level with urea and it improved. Please continue with the following: -urea [address] Arcos -1.5 L daily fluid limit -80 gm daily protein intake; recommend supplement w/ above protein powder Please keep close follow up with your primary care provider after discharge. Please do not hesitate to come back to the emergency room if your symptoms worsen or return. It was a pleasure taking care of you while you were here. Total Time Total Time Spent Total Time Spent (In Minutes): 65
[2023-12-24 11:14] VITALS: PULSE 68
== END 2023-12-24 15:02 | disposition home health service (06) | DRG 641 ==
LOC: ED 11:05 → 2S 16:21 → SUATTDRO 16:21 → 2S 18:59

== ENCOUNTER 2024-02-28 10:29 | Inpatient (IN) ==
--- NOTE | 2024-02-28 11:32 | Emergency Department Note ---
Impression & Plan Weakness, COVID-19, Acute dehydration, Pancytopenia ED Provider Note NAME: HAILEE ROSE AGE: 78 SEX: F : 1945 ARRIVES VIA: Ambulance INFORMANT: Patient, the patient's family members ED PROVIDER(S): Yahir Gibbs DO CHIEF COMPLAINT: Generalized weakness HPI: The patient is an 78-year-old female who presented to the emergency department for an evaluation of generalized weakness. The patient was seen by her family doctor yesterday for not feeling well. She was started on a course of cefdinir but she did not fill the prescription because she read the contraindications and was told that if she had any renal problems she should not take this medication. The patient has had rhinorrhea as well as cough. She is also had postnasal drip. Today she was on the toilet but she could not get up because of generalized weakness. She denies having any abdominal pain or chest pain. She denies having any lower extremity swelling or pain. The patient has been forgetful recently according to the family. ROS: See above HPI for pertinent positives & negatives. A total of 10 systems reviewed and were otherwise negative. PAST MEDICAL HISTORY: See Below PAST SURGICAL HISTORY: See Below FAMILY HISTORY: See Below SOCIAL HISTORY: See Below HOME MEDICATIONS: See Below ALLERGIES: See Below VITALS: See Below PHYSICAL EXAMINATION: GENERAL: Patient is awake alert in no acute distress patient is resting comfortably and showing no signs of anxiety EYES: The conjunctivae are clear. The pupils are round and reactive. EARS, NOSE, MOUTH AND THROAT: The nose is without any evidence of any deformity. The rhinorrhea was noted bilaterally. NECK: The neck is nontender and supple. RESPIRATORY: Breath sounds are noted at both lung celestin. There is no tachypnea or conversational dyspnea. CARDIOVASCULAR: Regular rate and rhythm noted there no murmurs rubs or gallops normal S1 normal S2. GASTROINTESTINAL: The abdomen is soft. Abdomen is nontender. MUSCULOSKELETAL/EXTREMITIES: There is no evidence of gross deformity full range of motion is noted in the hips and shoulders. SKIN: There is no obvious evidence of any rash. There are no petechiae, pallor or cyanosis noted. NEUROLOGIC: Patient is awake alert and oriented x3. Strength was symmetric but diminished. MEDICAL DECISION MAKING: The patient is a 78-year-old female who presented to the emergency department for generalized weakness. The patient had upper respiratory symptoms but she is also been having decreased p.o. intake. The patient was treated with IV fluids in the emergency department. She was reevaluated multiple times. I discussed the patient's laboratory and radiographic studies with her. Given her age and comorbidities other laboratory and radiographic studies were obtained but ultimately the patient was found to have a positive COVID swab. I do feel this likely explains her symptoms. Initially I felt the patient was a good candidate for outpatient management however the patient did not wish to go home. She felt very weak and did not think that she would do well at home. For this reason I discussed her condition with the on-call [facility] hospitalist. Triage Nursing notes reviewed. Prior medical records reviewed Vital Signs: reviewed and remarkable for no significant abnormalities Differential diagnosis: Infection, dehydration, metabolic abnormality, hypo/hyperglycemia, electrolyte disturbance, anemia, hypoxia, cardiac sources, intracerebral event, toxicologic, neurologic, as well as other pathologies. ER treatment provided: See below Diagnostics interpreted by me: ECG: EKG was obtained in the emergency department. My interpretation is normal sinus rhythm at 62 bpm. There was no ectopy. There is no acute ST segment abnormalities noted. This was compared to a tracing from December 21, 2023. No changes were noted. Cardiac Monitoring: An order was placed for continuous cardiac monitoring. The monitor shows a rate of 65 bpm with sinus rhythm. Laboratory studies: As stated above and show below. Imaging studies: See below. Radiographic imaging was reviewed by myself Consultation(s): I discussed this case with Mun[facility]. Past Med/Surg History Problem List History of breast cancer Peripheral neuropathy Diastolic dysfunction JOO (obstructive sleep apnea) Anxiety and depression Chronic anemia MGUS (monoclonal gammopathy of unknown significance) Chronic hyponatremia Hypomagnesemia Ambulatory dysfunction Pancytopenia (Acute) Acute dehydration (Acute) COVID-19 (Acute) Weakness (Acute) Calcific tendonitis of right shoulder (Acute) Hyponatremia (Acute) Facial droop (Acute) Neck pain Generalized weakness (Acute) Malignant neoplasm of lower-inner quadrant of left breast in female, estrogen receptor negative (Chronic 02/26/20) Medical History Chest pain Acute hyponatremia Hyponatremia Asthma MRSA infection Aortic stenosis MODERATE PER 01/23/20 ECHO. ABRIL 1.1CM2, MG 23 Arthritis Degenerative disc disease Environmental and seasonal allergies IBS (irritable bowel syndrome) LACTOSE/GLUTEN FREE DIET History of endometrial cancer 2012 SURGERY/CHEMO/RADIATION Anemia Restless leg syndrome Hyperlipidemia Sleep apnea CPAP WITH O2 AT 2L HS Hip bursitis, left Incontinence Urge incontinence of urine Urinary urgency Morbid obesity with BMI of 45.0-49.9, adult ALBERT (acute kidney injury) OCD (obsessive compulsive disorder) GERD (gastroesophageal reflux disease) Bipolar disorder Surgical History H/O umbilical hernia repair History of anesthesia reaction SLOW TO WAKE UP History of esophagogastroduodenoscopy (EGD) History of colonoscopy H/O breast biopsy H/O eye surgery LASER PROCEDURE RT/LEFT History of cataract surgery RT/LEFT S/P ectopic History of left hip replacement History of hysterectomy Hx of cholecystectomy History of carpal tunnel surgery Bilateral Status post total knee replacement, right Family History Mother , in 88yo Cervical cancer Status post cardiac surgery Surgery on "valves" Hypertension Father , 60yo Lung cancer Smoker Brother COPD (chronic obstructive pulmonary disease) Brother Lung cancer Brother Lung cancer Heart disease Defibrillator in place; Sister No problems noted. Sister Asthma Sister No problems noted. Son Muscular dystrophy Son No problems noted. Daughter No problems noted. Daughter No problems noted. Daughter No problems noted. 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 Feels Safe at Home: Yes Diet: regular caffeine: Yes (2-3 cups/day) during the past year weight has: remained stable Assistive Devices: CPAP, Denture - Upper, Denture - Lower, Glasses, Oxygen - at Night, Scooter/Electric Scooter, Walker and Wheelchair Allergies Allergies Allergy/AdvReac Type Severity Reaction Status Date / Time adhesive Allergy Intermediate ADHESIVE Verified 02/28/24 14:47 TAPE -- BLISTERS cetirizine Allergy Intermediate SORES IN Verified 02/28/24 14:47 MOUTH, HEAD CONGESTION dicloxacillin Allergy Intermediate MOUTH SORE Verified 02/28/24 14:47 erythromycin base Allergy Intermediate SORES IN Verified 02/28/24 14:47 MOUTH rifampin Allergy Intermediate elevated Verified 02/28/24 14:47 LFT's codeine AdvReac Mild NAUSEA Verified 02/28/24 14:47 doxycycline AdvReac Mild NAUSEA Verified 02/28/24 14:47 morphine AdvReac Mild "MAKES ME Verified 02/28/24 14:47 FEEL LOOPY" tetracycline AdvReac Mild NAUSEA Verified 02/28/24 14:47 NSAIDS (Non-Steroidal AdvReac Due to Verified 02/28/24 14:47 Anti-Inflamma kidney problems tramadol [From Ultram] AdvReac Nausea Verified 02/28/24 14:47 Home Meds Home Medications Medication Instructions Recorded Confirmed Oxygen Home #1 ea 02/28/19 03/03/22 cholecalciferol (vitamin D3) 25 25 mcg PO QAM 02/28/19 02/28/24 mcg (1,000 unit) capsule fluoxetine 20 mg capsule 20 mg PO HS 02/28/19 02/28/24 acetaminophen 500 mg tablet 1,000 mg PO Q8H PRN Pain 01/28/21 02/28/24 (Tylenol Extra Strength) biotin 300 mcg tablet 300 mcg PO DAILY 01/28/21 02/28/24 gabapentin 300 mg capsule 300 mg PO TID 01/28/21 02/28/24 lorazepam 0.5 mg tablet 0.5 mg PO DAILY PRN Anxiety 01/28/21 02/28/24 diclofenac sodium 1 % topical gel 4 g topical QID PRN Pain 12/06/23 02/28/24 divalproex 250 mg tablet,extended 750 mg PO HS 12/06/23 02/28/24 release 24 hr fluticasone propionate 50 2 spray intranasal QAM PRN 12/06/23 02/28/24 mcg/actuation nasal Congestion spray,suspension atorvastatin 20 mg tablet (Lipitor) 20 mg PO DAILY 12/21/23 02/28/24 fexofenadine 180 mg tablet 180 mg PO DAILY PRN allergies 02/28/24 02/28/24 magnesium chloride 64 mg 64 mg PO BID 02/28/24 02/28/24 (magnesium chloride) tablet,delayed release (Mag 64) oxybutynin chloride 15 mg 15 mg PO DAILY 02/28/24 02/28/24 tablet,extended release 24 hr pantoprazole 40 mg tablet,delayed 40 mg PO DAILYBB 02/28/24 02/28/24 release Previous Rx's Medication Instructions Recorded urea 15 gram oral powder packet 15 g PO DAILY #8 ea 12/24/23 (Ure-Na) Results & Data (ED) Vital Signs Vital Signs - 24 hr 02/28/24 10:40 02/28/24 11:53 02/28/24 11:53 Temperature 37.3 C Temperature Source Oral Pulse Rate 60 Pulse Rate [Apical] 64 Respiratory Rate 14 18 Respiratory Effort / Characteristics Non-Labored Spontaneous Non-Labored Spontaneous Respiratory Depth Normal Normal Respiratory Pattern Regular Regular Blood Pressure 137/41 L Blood Pressure [Right Arm] 141/79 H Blood Pressure Mean 73 Blood Pressure Mean [Right Arm] 99 Pulse Oximetry 95 98 97 Oxygen Delivery Method Room Air Room Air Room Air Sepsis Recent Fever Within 48 Hours No Sepsis New/Unexplained Change in Mental Status N/A Sepsis Action Taken by Nursing No Action Required 02/28/24 12:22 02/28/24 13:00 02/28/24 14:00 Temperature Temperature Source Pulse Rate 69 Pulse Rate [Apical] 64 65 Respiratory Rate 18 18 Respiratory Effort / Characteristics Non-Labored Spontaneous Non-Labored Spontaneous Respiratory Depth Normal Normal Respiratory Pattern Regular Blood Pressure Blood Pressure [Right Arm] 135/52 L 132/79 Blood Pressure Mean Blood Pressure Mean [Right Arm] 79 96 Pulse Oximetry 94 96 Oxygen Delivery Method Room Air Room Air Sepsis Recent Fever Within 48 Hours Sepsis New/Unexplained Change in Mental Status Sepsis Action Taken by [facility] Medications Current Medication List: was personally reviewed by me Laboratory Data Attestation: I reviewed the patient's lab results. 02/28/24 11:47 02/28/24 11:47 Lab Results 02/28/24 02/28/24 02/28/24 Range/Units 10:38 11:47 13:30 WBC 2.25 L (4.8-10.8) K/ul RBC 2.82 L (4.20-5.40) M/uL Hgb 8.8 L (12.0-16.0) g/dl Hct 25.6 L (37.0-47.0) % MCV 90.8 (80.0-100.0) fL MCH 31.2 (25.0-34.0) pg MCHC 34.4 (32.0-36.0) g/dL RDW Std Deviation 48.0 H (36.4-46.3) fL RDW Coeff of Priscila 14.4 (11.5-14.5) % Plt Count 114 L (130-400) K/uL MPV 11.2 (9.4-12.4) fL Immature Gran % (Auto) 0.4 % Neut % (Auto) 50.7 % Lymph % (Auto) 30.7 % [place] % (Auto) 17.8 % Eos % (Auto) 0.4 % Baso % (Auto) 0.0 % Neut # (Auto) 1.14 L (1.40-6.50) K/uL Lymph # (Auto) 0.69 L (1.20-3.40) K/uL [place] # (Auto) 0.40 (0.11-0.59) K/uL Eos # (Auto) 0.01 (0.00-0.50) K/uL Baso # (Auto) 0.00 (0.00-0.20) K/uL Immature Gran # (Auto) 0.01 (0.01-0.20) K/uL Sodium 136 (136-145) mmol/L Potassium 4.4 (3.5-5.1) mmol/L Chloride 99 (98-107) mmol/L Carbon Dioxide 32 (21-32) mmol/L Anion Gap 5 (3-11) BUN 32 H (6-23) mg/dl Creatinine 0.72 (0.6-1.2) mg/dl Est Cr Clr Drug Dosing 62.1 ml/min eGFR 84.47 BUN/Creatinine Ratio 44.4 H (10-20) Glucose 99 (70-99(Fasting)) mg/dl Calcium 8.8 (8.6-10.3) mg/dl Magnesium 1.6 L (1.7-2.4) mg/dl Total Bilirubin 0.3 (0.2-1.0) mg/dl AST 16 (13-39) U/L ALT 8 (7-52) U/L Alkaline Phosphatase 32 L (34-104) U/L Troponin I High Sens 11.9 (0-14) pg/ml Total Protein 6.3 (6.0-8.3) gm/dl Albumin 3.3 L (3.4-5.0) gm/dl Globulin 3.0 (2.5-4.0) gm/dl Albumin/Globulin Ratio 1.1 (0.9-2) TSH 2.330 (0.300-4.500) uIu/ml Urine Color Yellow Urine Appearance Clear (Clear) Urine pH 7.5 (4.5-7.5) Ur Specific [place] 1.013 (1.000-1.030) Urine Protein Negative (Negative) Urine Glucose (UA) Negative (Negative) Urine Ketones Negative (Negative) Urine Blood Negative (Negative) Urine Nitrite Negative (Negative) Urine Bilirubin Negative (Negative) Urine Urobilinogen Negative (Negative) Ur Leukocyte Esterase Negative (Negative) Valproic Acid 80 (50-100) mcg/ml SARS-CoV-2 (PCR) POSITIVE A (Negative) Influenza Type A (PCR) Negative (Neg) Influenza Type B (PCR) Negative (Neg) RSV (RT-PCR) Negative (Neg) Administered Medications Magnesium Sulfate/Dextrose (Magnesium Sulfate / D5w) 1 gm in 100 mls @ 50 mls/hr IV ONE ONE Stop: 02/28/24 17:49 Last Admin: 02/28/24 15:58 Dose: 50 mls/hr Documented By: MOOKIE Discontinued Medications Sodium Chloride (Nss) 500 mls @ 999 mls/hr IV .Q31M ONE Stop: 02/28/24 11:47 Last Infusion: 02/28/24 12:33 Dose: Infused Documented By: Admin: 02/28/24 11:50 Dose: 999 mls/hr Documented By: KATHRYN Imaging Data Attestation: I personally reviewed and interpreted this imaging study as follows: My Impression: 1 view chest was obtained in the emergency department. My interpretation is no free air or definite infiltrate, final report below. CT of the head was obtained in the emergency department. My interpretation is no intracranial hemorrhage or mass effect, final report below. Radiologist's Impression: Chest X-Ray 02/28/24 11:17 XR chest 1V portable CLINICAL HISTORY: weakness COMPARISON STUDY: Chest CT December 06, 2023. Chest radiograph December 21, 2023. FINDINGS: Right subclavian Sbbwbz-a-Ulew is in place. There is no pneumothorax or pleural effusion. There is no consolidation or evidence for pulmonary edema. Cardiomediastinal silhouette is stable. The appearance of the chest is unchanged. IMPRESSION: No acute cardiopulmonary findings. No change in appearance of the chest. ACT 112: Negative or not required by law. Electronically signed by: Norm Mena M.D. 02/28/2024 12:[address] 02/28/24 11:20 CT SCAN OF THE BRAIN WITHOUT IV CONTRAST CLINICAL HISTORY: Dizziness. Change in mental status. COMPARISON STUDY: CT and MRI of the brain dated 12/21/2023. TECHNIQUE: Unenhanced axial CT scan of the brain is performed from the vertex to the skull base. A dose lowering technique was utilized adhering to the principles of ALARA. CT DOSE: 625.8 mGy.cm FINDINGS: Brain parenchyma: There is age-related involutional change noting moderate confluent subcortical and periventricular microangiopathic disease. There is no hemorrhage, mass effect, or evidence of acute territorial ischemia by CT criteria. A chronic lacunar infarct is noted in the left cerebellar hemisphere. [place]-white matter differentiation is preserved. No extra-axial fluid collection is seen. Ventricles, sulci, cisterns: Prominent secondary to involutional change. Intracranial vasculature: There is atherosclerotic calcification of the cavernous carotid and vertebral arteries. Calvarium: Unremarkable. Sinuses and mastoids: There is moderate mucosal thickening within the ethmoid sinuses. Mild mucosal thickening seen within the maxillary and frontal sinuses. The mastoid air cells are well pneumatized. Orbits: The bony orbits are grossly intact. There are bilateral ocular lens implants. IMPRESSION: There is no hemorrhage, mass effect, or evidence of acute territorial ischemia by CT criteria. ACT 112: Negative or not required by law. Electronically signed by: Wes Ventura M.D. 02/28/2024 12:39 PM Discharge Plan Visit Data Chief Complaint: Flu Like Symptoms Stated Complaint: SINUS INFECTION ED Provider: Yahir Gibbs Discharge Problem: Weakness, COVID-19, Acute dehydration, Pancytopenia Patient Disposition: Being Evaluated by Hospitalist Condition: Good Discharge Instructions Krames/Other Patient Handouts: COVID-19 Home Care Activity Restrictions/Additional Instructions: Continue all medications as prescribed. Continue to use Tylenol as directed for body aches. Encourage the patient to drink plenty of clear liquids including Pedialyte and Gatorade. Follow-up with the primary care physician for further evaluation Forms Stand Alone Forms: My [facility], Important Visit Information Prescriptions Prescriptions: No Action lorazepam 0.5 mg tablet 0.5 mg PO DAILY PRN (Reason: Anxiety) acetaminophen [Tylenol Extra Strength] 500 mg tablet 1,000 mg PO Q8H PRN (Reason: Pain) biotin 300 mcg tablet 300 mcg PO DAILY fluoxetine 20 mg capsule 20 mg PO HS cholecalciferol (vitamin D3) 1,000 unit capsule 25 mcg PO QAM (DME) Oxygen Home Liters Per Minute See Dose Instructions .ROUTE .MEDSUPPLY Qty: 1 Rx Instructions: As directed gabapentin 300 mg capsule 300 mg PO TID Patient Comments: PT TAKES 1 CAP EVERY AM AND 1 CAP EVERY OTHER NIGHT Rx Instructions: TAKE THIS MED IN THE AM, MID-DAY, AND BEDTIME. atorvastatin [Lipitor] 20 mg Tablet 20 mg PO DAILY Ure-Na 15 gram Powder In Packet 15 g PO DAILY Qty: 8 0RF fluticasone propionate 50 mcg/actuation spray,suspension 2 spray INTRANASAL QAM PRN (Reason: Congestion) divalproex 250 mg tablet extended release 24 hr 750 mg PO HS diclofenac sodium 1 % Gel 4 g TOPICAL QID PRN (Reason: Pain) Rx Instructions: apply to knee fexofenadine [Erica] 180 mg Tablet 180 mg PO DAILY PRN (Reason: allergies) pantoprazole 40 mg tablet,delayed release (DR/EC) 40 mg PO DAILYBB oxybutynin chloride 15 mg tablet extended release 24hr 15 mg PO DAILY Rx Instructions: TAKE 1 TABLET BY MOUTH DAILY magnesium chloride [Mag 64] 64 mg tablet,delayed release (DR/EC) 64 mg PO BID Referrals Referrals: Jose M Seth MD [Primary Care Provider] -
[2024-02-28 11:34] LABS: Influenza A virus by PCR Negative (Neg); Influenza B virus by PCR Negative (Neg); RSV by PCR Negative (Neg); SARS CoV2 RNA(COVID-19) Ceph POSITIVE (Negative)
[2024-02-28] MEDS: SODIUM CHLORIDE 0.9% 500 ML IV ONE (11:50)
[2024-02-28 12:19] LABS: Eosinophils # (auto) 0.01 K/uL (0.00-0.50); Eosinophils % (auto) 0.4 %; Hematocrit (blood only) 25.6 % (37.0-47.0); Hemoglobin 8.8 g/dl (12.0-16.0); Immature Granulocytes # (auto) 0.01 K/uL (0.01-0.20); Immature Granulocytes % (auto) 0.4 %; Lymphocytes # (auto) 0.69 K/uL (1.20-3.40); Lymphocytes % (auto) 30.7 %; Mean Corpuscular Hemoglobin 31.2 pg (25.0-34.0); Mean Corpuscular Hgb Conc 34.4 g/dL (32.0-36.0); Mean Corpuscular Volume 90.8 fL (80.0-100.0); Mean Platelet Volume 11.2 fL (9.4-12.4); Monocytes % (auto) 17.8 %; Neutrophils # (auto) 1.14 K/uL (1.40-6.50); Neutrophils % (auto) 50.7 %; Platelet Count 114 K/uL (130-400); RDW Coefficient of Variation 14.4 % (11.5-14.5); Red Blood Count 2.82 M/uL (4.20-5.40); White Blood Count 2.25 K/ul (4.8-10.8)
[2024-02-28 12:34] LABS: Alanine Aminotransferase 8 U/L (7-52); Albumin Globulin Ratio 1.1 (0.9-2); Albumin Level 3.3 gm/dl (3.4-5.0); Alkaline Phosphatase 32 U/L (34-104); Anion Gap 5 (3-11); Aspartate Aminotransferase 16 U/L (13-39); BUN Creatinine Ratio 44.4 (10-20); Bilirubin,Total 0.3 mg/dl (0.2-1.0); Blood Urea Nitrogen 32 mg/dl (6-23); Calcium 8.8 mg/dl (8.6-10.3); Carbon Dioxide 32 mmol/L (21-32); Chloride 99 mmol/L (98-107); Creatinine Clr Calc Pharmacy 62.1 ml/min; Glucose 99 mg/dl (70-99(Fasting)); Magnesium 1.6 mg/dl (1.7-2.4); Potassium 4.4 mmol/L (3.5-5.1); Sodium 136 mmol/L (136-145); Total Protein 6.3 gm/dl (6.0-8.3)
[2024-02-28 12:40] LABS: Troponin I High Sensitivity 11.9 pg/ml (0-14)
--- NOTE | 2024-02-28 12:40 | CT Scan Report ---
CT SCAN OF THE BRAIN WITHOUT IV CONTRAST CLINICAL HISTORY: Dizziness. Change in mental status. COMPARISON STUDY: CT and MRI of the brain dated 12/21/2023. TECHNIQUE: Unenhanced axial CT scan of the brain is performed from the vertex to the skull base. A do se lowering technique was utilized adhering to the principles of ALARA. CT DOSE: 625.8 mGy.cm FINDINGS: Brain parenchyma: There is age-related involutional change noting moderate confluent subcortical and periventricular microangiopathic disease. There is no hemorrhage, mass effect, or evidence of acute t erritorial ischemia by CT criteria. A chronic lacunar infarct is noted in the left cerebellar hemisph ere. [place]-white matter differentiation is preserved. No extra-axial fluid collection is seen. Ventricles, sulci, cisterns: Prominent secondary to involutional change. Intracranial vasculature: There is atherosclerotic calcification of the cavernous carotid and vertebr al arteries. Calvarium: Unremarkable. Sinuses and mastoids: There is moderate mucosal thickening within the ethmoid sinuses. Mild mucosal t hickening seen within the maxillary and frontal sinuses. The mastoid air cells are well pneumatized. Orbits: The bony orbits are grossly intact. There are bilateral ocular lens implants. IMPRESSION: There is no hemorrhage, mass effect, or evidence of acute territorial ischemia by CT deloris crowley. ACT 112: Negative or not required by law. Electronically signed by: Wes Ventura M.D. 02/28/2024 12:39 PM
--- NOTE | 2024-02-28 12:40 | XRay Report ---
XR chest 1V portable CLINICAL HISTORY: weakness COMPARISON STUDY: Chest CT December 06, 2023. Chest radiograph December 21, 2023. FINDINGS: Right subclavian [id number] is in place. There is no pneumothorax or pleural effusion. T here is no consolidation or evidence for pulmonary edema. Cardiomediastinal silhouette is stable. The appearance of the chest is unchanged. IMPRESSION: No acute cardiopulmonary findings. No change in appearance of the chest. ACT 112: Negative or not required by law. Electronically signed by: Norm Mena M.D. 02/28/2024 12:38 PM
[2024-02-28 13:42] LABS: Appearance Urine Clear (Clear); Bilirubin Urine Negative (Negative); Blood Urine Negative (Negative); Color Urine Yellow; Glucose Urine UA Negative (Negative); Ketones Urine Negative (Negative); Leukocyte Esterase Urine Negative (Negative); Nitrite Urine Negative (Negative); Protein Urine Negative (Negative); Specific Gravity Urine 1.013 (1.000-1.030); Urobilinogen Urine Negative (Negative); pH Urine 7.5 (4.5-7.5)
--- NOTE | 2024-02-28 14:55 | History & Physical Report ---
Date of Service February 28, 2024 Assessment & Plan (1) Generalized weakness: (2) Ambulatory dysfunction: (3) COVID-19: Plan: Patient is 78 year old female with PMH HFrEF, moderate , HTN, bronchial asthma, pulmonary hypertension, JOO on CPAP, GERD, prediabetes, left breast cancer status post surgery/radiation, endometrial cancer status post surgery/chemotherapy, MGUS, chronic anemia, anxiety/mood disorder, presented to ER with c/o weakness and flu like symptoms started 5 days ago. In ER afebrile, vitals stable . No hypoxia. +COVID-19 on PCR In ER given 500ml NSS CXR: no infiltrate Airborne isolation Supplemental oxygen as needed Albuterol prn Incentive spirometry Remdesivir IVF CBC, BMP in am (4) Hypomagnesemia: Plan: Magnesium: 1.6 Replace and monitor (5) Chronic hyponatremia: Plan: Na: 136 On Urea (6) MGUS (monoclonal gammopathy of unknown significance): (7) Chronic anemia: Plan: hgb: 8.8 (8.6 on 12/24/23), Plt: 114 (172 on 12/24/23) Monitor CBC (8) Anxiety and depression: Plan: Mood disorder Continue fluoxetine, lorazapam prn (9) JOO (obstructive sleep apnea): Plan: CPAP HS with 2L OW (10) Diastolic dysfunction: (11) Peripheral neuropathy: Plan: Continue gabapentin (12) History of breast cancer: Plan: S/P left partial mastectomy and chemo History uterine cancer s/p hysterectomy, chemo Last chemo >5 years ago DVT Prophylaxis SCDs Admit med tele DNR/DNI as per discussion with pt Follows with Dr Seth for routine care Pt was seen and care coordinated with Dr Noble. See addendum I spent a total of 75 minutes reviewing notes, outpatient records, labs, medication, coordinating, documenting and providing care for this patient excluding time spent in the performance of separately billed services. History of Present Illness Chief Complaint: Weakness Primary Care Provider: Jose M Seth MD Patient is 78 year old female with PMH HFrEF, moderate , HTN, bronchial asthma, pulmonary hypertension, JOO on CPAP, GERD, prediabetes, left breast cancer status post surgery/radiation, endometrial cancer status post surgery/chemotherapy, MGUS, chronic anemia, anxiety/mood disorder, presented to ER with c/o weakness and flu like symptoms. History obtained from patient, family and outpatient records. States 5 days ago started with stuffy nose, sore throat, SCHMITZ, fatigue, decreased appetite. Denies cough, SOB, CP. States today with some nausea, vomited twice this morning. Denies abdominal pain or diarrhea. States feeling dizzy with standing today. Walks with walker at baseline. Has caregiver 20 hours a weeks. States today more weak and wasn't able to get up off toilet so came to ER for evaluation. Seen PCPs office 02/27/2024 was prescribed cefdinir for possible sinus infection however patient states never took it. Denies known ill contacts. Denies h/o COVID-19 in past. Denies fever/chills, diaphoresis, hematemesis, diarrhea, constipation, syncope, vision changes, neck pain, CP, SOB, orthopnea, palpitations, cough, otalgia, abdominal pain, paresthesias, extremity edema, rashes, urinary symptoms. Allergies Allergy/AdvReac Type Severity Reaction Status Date / Time adhesive Allergy Intermediate ADHESIVE Verified 02/28/24 14:47 TAPE -- BLISTERS cetirizine Allergy Intermediate SORES IN Verified 02/28/24 14:47 MOUTH, HEAD CONGESTION dicloxacillin Allergy Intermediate MOUTH SORE Verified 02/28/24 14:47 erythromycin base Allergy Intermediate SORES IN Verified 02/28/24 14:47 MOUTH rifampin Allergy Intermediate elevated Verified 02/28/24 14:47 LFT's codeine AdvReac Mild NAUSEA Verified 02/28/24 14:47 doxycycline AdvReac Mild NAUSEA Verified 02/28/24 14:47 morphine AdvReac Mild "MAKES ME Verified 02/28/24 14:47 FEEL LOOPY" tetracycline AdvReac Mild NAUSEA Verified 02/28/24 14:47 NSAIDS (Non-Steroidal AdvReac Due to Verified 02/28/24 14:47 Anti-Inflamma kidney problems tramadol [From Ultram] AdvReac Nausea Verified 02/28/24 14:47 Home Medications Medication Instructions Recorded Confirmed Type Oxygen Home #1 ea 02/28/19 03/03/22 History cholecalciferol (vitamin D3) 25 25 mcg PO QAM 02/28/19 02/28/24 History mcg (1,000 unit) capsule fluoxetine 20 mg capsule 20 mg PO HS 02/28/19 02/28/24 History acetaminophen 500 mg tablet 1,000 mg PO Q8H PRN Pain 01/28/21 02/28/24 History (Tylenol Extra Strength) biotin 300 mcg tablet 300 mcg PO DAILY 01/28/21 02/28/24 History gabapentin 300 mg capsule 300 mg PO TID 01/28/21 02/28/24 History lorazepam 0.5 mg tablet 0.5 mg PO DAILY PRN Anxiety 01/28/21 02/28/24 History diclofenac sodium 1 % topical gel 4 g topical QID PRN Pain 12/06/23 02/28/24 History divalproex 250 mg tablet,extended 750 mg PO HS 12/06/23 02/28/24 History release 24 hr fluticasone propionate 50 2 spray intranasal QAM PRN 12/06/23 02/28/24 History mcg/actuation nasal Congestion spray,suspension atorvastatin 20 mg tablet (Lipitor) 20 mg PO DAILY 12/21/23 02/28/24 History urea 15 gram oral powder packet 15 g PO DAILY #8 ea 12/24/23 02/28/24 Rx (Ure-Na) fexofenadine 180 mg tablet 180 mg PO DAILY PRN allergies 02/28/24 02/28/24 History magnesium chloride 64 mg 64 mg PO BID 02/28/24 02/28/24 History (magnesium chloride) tablet,delayed release (Mag 64) oxybutynin chloride 15 mg 15 mg PO DAILY 02/28/24 02/28/24 History tablet,extended release 24 hr pantoprazole 40 mg tablet,delayed 40 mg PO DAILYBB 02/28/24 02/28/24 History release Past Med/Surg History Problem List History of breast cancer Peripheral neuropathy Diastolic dysfunction JOO (obstructive sleep apnea) Anxiety and depression Chronic anemia MGUS (monoclonal gammopathy of unknown significance) Chronic hyponatremia Hypomagnesemia Ambulatory dysfunction Pancytopenia (Acute) Acute dehydration (Acute) COVID-19 (Acute) Weakness (Acute) Calcific tendonitis of right shoulder (Acute) Hyponatremia (Acute) Facial droop (Acute) Neck pain Generalized weakness (Acute) Malignant neoplasm of lower-inner quadrant of left breast in female, estrogen receptor negative (Chronic 02/26/20) Medical History Chest pain Acute hyponatremia Hyponatremia Asthma MRSA infection Aortic stenosis MODERATE PER 01/23/20 ECHO. ABRIL 1.1CM2, MG 23 Arthritis Degenerative disc disease Environmental and seasonal allergies IBS (irritable bowel syndrome) LACTOSE/GLUTEN FREE DIET History of endometrial cancer 2012 SURGERY/CHEMO/RADIATION Anemia Restless leg syndrome Hyperlipidemia Sleep apnea CPAP WITH O2 AT 2L HS Hip bursitis, left Incontinence Urge incontinence of urine Urinary urgency Morbid obesity with BMI of 45.0-49.9, adult ALBERT (acute kidney injury) OCD (obsessive compulsive disorder) GERD (gastroesophageal reflux disease) Bipolar disorder Surgical History H/O umbilical hernia repair History of anesthesia reaction SLOW TO WAKE UP History of esophagogastroduodenoscopy (EGD) History of colonoscopy H/O breast biopsy H/O eye surgery LASER PROCEDURE RT/LEFT History of cataract surgery RT/LEFT S/P ectopic History of left hip replacement History of hysterectomy Hx of cholecystectomy History of carpal tunnel surgery Bilateral Status post total knee replacement, right Family History Mother , in 88yo Cervical cancer Status post cardiac surgery Surgery on "valves" Hypertension Father , 60yo Lung cancer Smoker Brother COPD (chronic obstructive pulmonary disease) Brother Lung cancer Brother Lung cancer Heart disease Defibrillator in place; Sister No problems noted. Sister Asthma Sister No problems noted. Son Muscular dystrophy Son No problems noted. Daughter No problems noted. Daughter No problems noted. Daughter No problems noted. 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 Feels Safe at Home: Yes Diet: regular caffeine: Yes (2-3 cups/day) during the past year weight has: remained stable Assistive Devices: CPAP, Denture - Upper, Denture - Lower, Glasses, Oxygen - at Night, Scooter/Electric Scooter, Walker and Wheelchair Review of Systems Review of Systems: All systems reviewed & are unremarkable except as noted in HPI & below Physical Exam Physical Exam: General: no distress, WDWN Head: normocephalic, atraumatic Eyes: conjunctiva non-injected, anicteric ENT: normal inspection external ears, nose, mucous membranes mildly dry Neck: supple, trachea midline Lungs: clear, no respiratory distress, no wheezing/rhonchi/rales CV: RRR, + murmur, no pretibial edema Abd: normal BS, soft, non-tender Ext: no cyanosis, no calf tenderness Neuro: A&O x 3, no focal deficits noted, normal affect Skin: warm, dry Results & Data Results & Data Vital Signs (Past 12 Hours) Vital Signs Temp Pulse Pulse Resp BP BP Pulse Ox 02/28/24 14:00 65 18 132/79 96 02/28/24 13:00 64 18 135/52 L 94 02/28/24 12:22 69 02/28/24 11:53 64 18 141/79 H 97 02/28/24 11:53 98 02/28/24 10:40 37.3 C 60 14 137/41 L 95 O2 Del Method 02/28/24 14:00 Room Air 02/28/24 13:00 Room Air 02/28/24 12:22 02/28/24 11:53 Room Air 02/28/24 11:53 Room Air 02/28/24 10:40 Room Air Laboratory Results Short CBC 02/28/24 Range/Units 11:47 WBC 2.25 L (4.8-10.8) K/ul Hgb 8.8 L (12.0-16.0) g/dl Hct 25.6 L (37.0-47.0) % Plt Count 114 L (130-400) K/uL BMP 02/28/24 11:47 Sodium 136 Potassium 4.4 Chloride 99 Carbon Dioxide 32 BUN 32 H Creatinine 0.72 Glucose 99 Calcium 8.8 Liver Function 02/28/24 Range/Units 11:47 Total Bilirubin 0.3 (0.2-1.0) mg/dl AST 16 (13-39) U/L ALT 8 (7-52) U/L Alkaline Phosphatase 32 L (34-104) U/L Albumin 3.3 L (3.4-5.0) gm/dl Urine 02/28/24 Range/Units 13:30 Urine Color Yellow Urine Appearance Clear (Clear) Urine pH 7.5 (4.5-7.5) Ur Specific [place] 1.013 (1.000-1.030) Urine Protein Negative (Negative) Urine Glucose (UA) Negative (Negative) Diagnostic Findings Short CBC 02/28/24 Range/Units 11:47 WBC 2.25 L (4.8-10.8) K/ul Hgb 8.8 L (12.0-16.0) g/dl Hct 25.6 L (37.0-47.0) % Plt Count 114 L (130-400) K/uL BMP 02/28/24 11:47 Sodium 136 Potassium 4.4 Chloride 99 Carbon Dioxide 32 BUN 32 H Creatinine 0.72 Glucose 99 Calcium 8.8 Liver Function 02/28/24 Range/Units 11:47 Total Bilirubin 0.3 (0.2-1.0) mg/dl AST 16 (13-39) U/L ALT 8 (7-52) U/L Alkaline Phosphatase 32 L (34-104) U/L Albumin 3.3 L (3.4-5.0) gm/dl Urine 02/28/24 Range/Units 13:30 Urine Color Yellow Urine Appearance Clear (Clear) Urine pH 7.5 (4.5-7.5) Ur Specific [place] 1.013 (1.000-1.030) Urine Protein Negative (Negative) Urine Glucose (UA) Negative (Negative)
--- NOTE | 2024-02-28 15:25 | Electrocardiogram Report ---
Test Reason : Blood Pressure : */* mmHG Vent. Rate : 62 BPM Atrial Rate : 62 BPM P-R Int : 154 ms QRS Dur : 88 ms QT Int : 462 ms P-R-T Axes : 90 44 55 degrees QTcB Int : 468 ms Normal sinus rhythm Normal ECG When compared with ECG of 21-Dec-2023 11:12, No significant change was found Confirmed by Cassius Cerrato ([id number]) on 02/28/2024 3:24:50 PM Referred By: REFERRED SELF Confirmed By: Cassius Cerrato
[2024-02-28] MEDS: MAGNESIUM SULFATE / D5W 1 GM/100 ML BAG IV ONE (15:58)
[2024-02-28] MEDS ORDERED: ALBUTEROL 0.083% NEBU SOLN 3 ML VIAL NEB PRN (17:15)
[2024-02-28] MEDS ORDERED: ONDANSETRON INJ 2 MG/ML 2 ML VIAL IV PRN (17:15)
[2024-02-28] MEDS ORDERED: FEXOFENADINE HCL 180 MG TAB PO PRN (17:15)
[2024-02-28] MEDS ORDERED: ACETAMINOPHEN 325 MG TAB PO PRN (17:15)
[2024-02-28] MEDS ORDERED: LORazepam 0.5 MG TAB PO PRN (17:15)
[2024-02-28] MEDS ORDERED: DICLOFENAC SOD 1% GEL 100 GM TUBE EXT PRN (17:15)
[2024-02-28 17:49] LABS: C Reactive Protein < 0.50 mg/dl (0-0.5)
[2024-02-28] MEDS: SODIUM CHLORIDE 0.9% 1,000 ML IV SCH (17:56)
[2024-02-28] MEDS: REMDESIVIR 200 MG in SODIUM CHLORIDE 0.9% 210 ML IV STA (17:56)
[2024-02-28] MEDS: MAGNESIUM CHLORIDE W/CALCIUM 64MG DELAYED REL TAB PO SCH (20:32)
[2024-02-28] MEDS: GABAPENTIN 300 MG CAP PO SCH (20:32)
[2024-02-28] MEDS: FLUoxetine HCL 20 MG CAP PO SCH (20:33)
[2024-02-28] MEDS: DIVALPROEX EXTENDED RELEASE 250 MG TABCR PO SCH (20:33)
--- OUTSIDE RECORDS SUMMARY | 2024-02-28 21:38 | External Medical Summary | Summary of Care ---
Author Name Unknown Organization [facility] Address [address] [place] [address] Phone [phone] Care Team Providers Care Pump Tender Name Role Phone Jose M Seth MD Primary Care Provider + Reason for Visit * Reason Comments Acute Sinus pain/congestio n Encounter Details Date Type Department Care Team (Late st Contact Info) Description 02/27/2024 11:40 AM EDT Office Visit General Internal Medicine [facility] [address] [facility] [place] [address] Eddie Johnson, [address] [address] Acute non-recurrent frontal sinusitis*; Hyponatremia Allergies Active Allergy Reactions Criticality Noted Date [...] as of this encounter (statuses as of 02/27/2024) Medications Medication Sig Dispensed Refills Start Date [...] night at bedtime. With CPAP 05/29/2014 Active Acetaminophen 500 MG Oral Tablet (TYLENOL) Take 2 Tablets by mouth every 8 hours as needed. 100 Tab 04/15/2020 Active Saline Nasal [place] 0.65 % Nasal Solution (Grundy Nasal [place]) Two sprays in each nostril as [...] THE MORNING 90 Tablet 3 06/01/2023 Active Fluticasone Propionate 50 MCG/ACT Nasal Suspension [...] needed for Nausea. 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 Use as needed to use restroom. 1 Each 12/15/2023 Active Premarin 0.625 MG/GM Vaginal Cream (Estrogens Conjugated) Administer into the vagina once a day on Monday, Monday, and Monday only. As directed. 30 g 3 12/20/2023 Active Urea 15 GM Oral Packet (Ure-Na) Take 15 g by mouth daily 8 Packet 01/03/2024 Active oxyBUTYnin Chloride ER 15 MG Oral Tablet Extended Release 24 Hour (Ditropan XL) Take 1 Tablet by mouth in the morning. 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 30 Capsule 02/26/2024 Active LORazepam 0.5 MG Oral Tablet (Ativan)Indications: PETER (generalized anxiety disorder) Take 1 Tablet by mouth daily as needed for Anxiety. 10 Tablet 02/26/2024 Active Cefdinir 300 MG Oral Capsule (Omnicef)Indications :Acute non-recurrent frontal sinusitis Take 1 Capsule by mouth in the morning and 1 Capsule before bedtime. Do all this for 7 days. 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 06/21/2023 Urge incontinence 05/02/2023 PETER (generalized anxiety disorder) 07/14/2022 Peripheral neuropathy [...] as of this encounter (statuses as of 02/27/2024) Resolved Problems Problem Noted Date Diagnosed Date Resolved Date Uncomplicated asthma 11/15/2022 024 Overview: More specified on pl Food insecurity 11/07/2022 05/11/2023 Overview: Per Fresh [...] M Seth MD Pharmacy: [facility] 08/09/2013 12/16/2015 Dementia 07/19/2013 2017 [...] as of this encounter (statuses as of 02/27/2024) Immunizations Name Administration Dates Next Due COVID-19 mRNA, LNP-s, No Pre serve, 2-Dose Series ([employer]) 02/18/2021,08/10/2020,07/06/2020 COVID-19, MRNA-LNP, 23-24, P F, 30 MCG/0.3 mL, 12 YRS AND ABOVE, IM ([employer]-Comirnat) 04/11/2023 Covid-19, Mrna, Lnp-s, Pf, B ivalent, 30 Mcg, IM, 12 yrs and above (Pfizer) 03/22/2022 Pneumococcal Conjugate Vacc, 13 Valent (Prevnar) 06/30/2014 Pneumococcal Polysaccharide PPV23 (Pneumovax) 08/12/2010 RSV Vac., Bivalent, Perfusio n F, Pf,0.5 Ml (Abrysvo) 04/11/2023 Season Influenza, Quad, PF, Adjuvanted, 65+ Yrs, IM (FLUAD) 02/12/2020 Seasonal Influenza Vac., MDV , IM, 0.5 mL (Fluzone) 02/19/2014,02/13/2013,02/02/2012,04/14,05/03/2010 Seasonal Influenza, High Dos e, Trivalent, PF, IM (Fluzone HD) 02/09/2024 Seasonal Influenza, PF, 6 M & above, IM , (FluLaval or Fluzone) 02/28/2018,04/07/2017 Seasonal Influenza, Quadriva lent Hd (Fluzone Hd) 02/07/2023,02/08/2022,02/08/2021 Seasonal Influenza, Quadriva lent, No Preserve, IM 02/10/2016,03/06/2015 Seasonal Influenza, Trivalen t, Adjuvanted, 65+ YRS, PF, (Fluad) 03/11/2019 TDAP (age 10 and older)(Boostrix) 03/07/2022 [...] Date Recorded PHQ Adult Total Score 0 02/19/2024 Hunger Vital Sign Answer Date Recorded Within [...] Sign Reading Time Taken Comments Blood Pressure 100/50 02/27/2024 11:55 AM EDT Pulse 62 02/27/2024 11:55 AM EDT Temperature 36.7 C (98 F) 02/27/2024 11:55 AM EDT Respiratory Rate - - Oxygen Saturation 92% 02/27/2024 11:55 AM EDT Inhaled Oxygen Concentration - - Weight 77.8 kg (171 lb 9.6 oz) 02/27/2024 11:55 AM EDT Height 154.9 cm (5' 0.98") 02/27/2024 11:55 AM E DT Body Mass Index 32.44 02/27/2024 11:55 AM EDT documented in this encounter Progress Notes * Eddie Johnson, - 02/27/2024 11:58 AM EDT Subjective Kathy Mccoy is a 78 year old female. Chief Complaint Patient presents with Acute Sinus pain/congestion HPI: Presents office for evaluation of sinus pain/congestion. Has been going on for about 7 days and not getting better. Ztvg-wae-sjgtqrd decongestants and Mucinex have not helped. Sinus pain/pressure above her eyes. Has noted increased nasal discharge as well as postnasal drip. Cough productive ofyellow/green mucus. No known sick contacts. No issues with loss of taste/smell. No shortness of breath or wheezing. Fatigue but no obvious fever chills. 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 Do all this for 7 days. 14 Capsule 0 PROCARE ADULT BRIEFS X-LARGE MISC use as [...] directed every night at bedtime. With CPAP Acetaminophen 500 MG Oral Tablet (TYLENOL) Take 2 Tablets by mouth every 8 hours as needed. 100 Tab0 Saline Nasal [place] 0.65 % Nasal Solution (Grundy Nasal [place]) Two sprays in each nostril as [...] COVID-19 mRNA Vaccine 12 years and above [employer] 30 MCG/0.3 ML IM SUSP Inject into a large muscle. (Patient not taking: Reported on 12/15/2023) 0.3 mL 0 Atorvastatin Calcium 20 MG Oral Tablet (Lipitor) TAKE 1 TABLET BY MOUTH IN THE MORNING 90 Tablet 3 Fluticasone Propionate 50 MCG/ACT Nasal [...] as needed for Nausea. 30 Tablet 0 Commode Bedside Bedside commode. Use as needed to use restroom. 1 Each 0 Premarin 0.625 MG/GM Vaginal Cream (Estrogens Conjugated) Administer into the vagina once a day on Monday, Monday, and Monday only. As directed. 30 g 3 Urea 15 GM Oral Packet (Ure-Na) Take 15 g by mouth daily 8 Packet 0 oxyBUTYnin Chloride ER 15 MG Oral Tablet Extended Release 24 Hour (Ditropan XL) Take 1 Tablet by mouth in the morning. 90 Tablet 3 Divalproex Sodium ER 250 MG Oral Tablet Extended Release 24 Hour (Depakote ER) Take 3 Tablets by mouth every night at bedtime. 90 Tablet 0 FLUoxetine HCl 20 MG Oral Capsule (PROzac) Take 1 Capsule by mouth at bedtime. 30 Capsule 0 LORazepam 0.5 MG Oral Tablet (Ativan) [...] OPEN performed by Vijaya Samano MD at [facility] CARPAL TUNNEL SURGERY 1996 left and right CATARACT SURGERY,COMPLEX Bilateral 10/2014 CHEMOTHERAPY 04/20/2020 completed 10/28/2020 neoadjuvant chemotherapy Adrianmycin & Cytoxan. Followed by 11 of 12 cycles of Taxol COLONOSCOPY W/ BIOPSY (RECTUM) 09/08/2010 polyp x1 , skin tags, path repeat in 5 years COLONOSCOPY, DIAGNOSTIC (RECTUM) 04/13/2016 normal/[facility] EGD, FLEXIBLE, DIAGNOSTIC 04/13/2016 acid reflux/[facility] EGD, FLEXIBLE, DIAGNOSTIC 02/24/2022 normal / ESOPHAGOGASTRODUODENOSCOPY (EGD), FLEXIBLE, TRANSORAL, DIAGNOSTIC performed by Rober Redding MD at ENDOSCOPY [facility] IDENTIFY SENTINEL NODE, RADIOACTIVE TRACER Left 12/30/2020 INJECTION PROCEDURE FOR IDENTIFICATION SENTINEL NODE performed by Vijaya Samano MD at [facility] INFORMATION 11/13/2012 11/13/2012 insertion of A-port - left shoulder [facility] Dr. Vijaya Samano MASTECTOMY, PARTIAL Left 12/30/2020 MASTECTOMY PARTIAL performed by Vijaya Samano MD at [facility] PROCEDURE - GENERAL PROCEDURE - GENERAL N/A 04/08/2020 iNSERTION OF VENOUS ACCESS(CHEST) RADIATION THERAPY Left 04/13/2021 6640 cGy to left breast, supraclavicular area, and axilla REMOVE GALLBLADDER 1985 REPAIR INITIAL INGUINAL HERNIA REDUCIBLE AGE 5 OR MORE 2006 TOTAL ABD HYSTERECTOMY W/WO REMOVAL OF TUBE(S) 09/24/2012 TOTAL ABDOMINAL HYSTERECTOMY WITH OR WITHOUT TUBES AND OVARIES performed by Jacey Jewell MD at [facility] TOTAL HIP REPLACEMENT & PROSTHESIS Left 09/02/2016 TREAT ECTOPIC , TUBE/OVARY 1963 US GUIDED BREAST BIOPSY LEFT Left 02/26/2020 Axillary biopsy- benign US GUIDED BREAST BIOPSY 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 Plasencia Review of patient's allergies indicates: Allergen Reactions [...] Zyrtec [Cetirizine Hcl] Problems breathing, overly dry Family History Problem Relation Name Age of Onset Heart Disorder Mother triple bypass Blood Disorder Mother gout Eye Problems Mother Glaucoma Cervical Cancer Mother tx: radiation therapy Lung cancer Father TOB+, chimney mechanic, abestos Heart Disorder Sister Dionna Murmur Asthma Sister Lucia No Known Problems Sister Myra COPD Brother Mane TOB+ Emphysema Brother Mane Lung cancer Brother Mane w/ brain mets Heart disease Brother Mane Heart failure Brother Sammy COPD Brother Sammy Emphysema Brother Sammy Heart attack Brother Sammy Lung cancer Brother Sina TOB+ Allergies Daughter Food allergies, gluten sensitivity Stroke Uncle (Unspecified) Lung cancer Aunt (Paternal) Diabetes No significant family history Retinal detachment No significant family history Patient denies family hx of AMD retinal detachments or blindness Family Status Relation Status Mo at age 80s Fa Sis Alive Sis Alive Sis Alive Bro Bro Alive Bro Ericka (Not Specified) UNCLE (Not Specified) MGFA ? MGMA ? 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 Daughter is newspaper inserter. Another daughter in [place]. Social Determinants of Health Financial Resource Strain: Low Risk (10/09/2023) Financial Resource Strain Do you have any trouble paying for your medications, or do you think you might in the future? (Adult - for ages 18 years and over): No Does your family have trouble paying for medicine? (Household - for ages 0-17 years): Not on file Food Insecurity: No Food Insecurity (10/09/2023) Food Insecurity Do you need food for this week? (Adult - for ages 18 years and over): No Are you able to get enough food for your family? (Household - for ages 0-17 years): Not on file Does your family need food this week? (Household - for ages 0-17 years): Not on file Do you always have enough food for your family? (Household - for ages 0-17 years): Not on file Transportation Needs: No Transportation Needs (10/09/2023) Transportation Needs Do you have trouble getting a ride to medical visits or work? (Adult - for ages 18 years and over):Never True Does your family have a hard time getting a ride to doctors visits? (Household - for ages 0-17 years): Not on file Has lack of transportation kept you from medical appointments, meetings, work, or from getting things needed for daily living? Check all that apply. (Adult - for ages 18 years and over): Not on file Do you (or your family) have trouble finding or paying for a ride (transportation)? (Household - for ages 0-17 years): Not on file Social Connections: Socially Integrated (10/09/2023) Social Connections How often do you feel lonely or isolated from those around you? (Adult - for ages 18 years and over): Rarely Housing Stability: Low Risk (10/09/2023) Housing Stability Do you currently live in a chcf or have no steady place to sleep at night? (Adult - for ages 18 years and over): No Do you think you are at risk of becoming homeless? (Adult - for ages 18 years and over): No Does your family worry about paying for your home or becoming homeless? (Household - for ages 0-17 years): Not on file Are you homeless or worried that you might be in the future? (Adult - for ages 18 years and over): Not on file Are you (or your family) homeless or worried that you might be in the future? (Household - for ages0-17 years): Not on file Review of Systems Constitutional: Negative for chills and fever. HENT: Positive for sinus pressure and sinus pain. Negative for congestion, sore throat and trouble swallowing. Eyes: Negative for photophobia and itching. Respiratory: Negative for apnea and cough. Cardiovascular: Negative for chest pain and palpitations. Gastrointestinal: Negative for abdominal distention, abdominal pain, nausea and vomiting. Genitourinary: Negative for dysuria and frequency. Musculoskeletal: Negative for arthralgias and myalgias. Skin: Negative for pallor and rash. Neurological: Negative for dizziness, light-headedness and headaches. Psychiatric/Behavioral: Negative for sleep disturbance. The patient is not nervous/anxious. Objective BP 100/50 | Pulse 62 | Temp 36.7 C (98 F) | Ht 1.549 m (5' 0.98") | Wt 77.8 kg (171 lb 9.6 oz) | SpO2 92% | BMI 32.44 kg/m | BSA 1.83 m Physical Exam Constitutional: General: She is not in acute distress. Appearance: She is not ill-appearing. HENT: Head: Normocephalic and atraumatic. Right Ear: Tympanic membrane, ear canal and external ear normal. Left Ear: Tympanic membrane, ear canal and external ear normal. Nose: Congestion and rhinorrhea present. Comments: Tender frontal sinus region bilaterally Mouth/Throat: Mouth: Mucous membranes are moist. Pharynx: Oropharynx is clear. No oropharyngeal exudate or posterior oropharyngeal erythema. Comments: Increased post nasal drip Eyes: General: No scleral icterus. Extraocular Movements: Extraocular movements intact. Conjunctiva/sclera: Conjunctivae normal. Pupils: Pupils are equal, round, and reactive to light. Cardiovascular: Rate and Rhythm: Normal rate and regular rhythm. Pulses: Normal pulses. Heart sounds: Normal heart sounds. No murmur heard. No friction rub. No gallop. Pulmonary: Effort: Pulmonary effort is normal. Breath sounds: Normal breath sounds. No wheezing, rhonchi or rales. Abdominal: General: Bowel sounds are normal. There is no distension. Palpations: Abdomen is soft. There is no mass. Tenderness: There is no abdominal tenderness. There is no right CVA tenderness or left CVA tenderness. Musculoskeletal: General: No deformity. Normal range of motion. Cervical back: Normal range of motion and neck supple. Right lower leg: No edema. Left lower leg: No edema. Lymphadenopathy: Cervical: No cervical adenopathy. Skin: General: Skin is warm and dry. Coloration: Skin is not jaundiced. Findings: No rash. Neurological: General: No focal deficit present. Mental Status: She is oriented to person, place, and time. Cranial Nerves: No cranial nerve deficit. Sensory: No sensory deficit. Motor: No weakness. Psychiatric: Mood and Affect: Mood normal. Behavior: Behavior normal. ASSESSMENT/PLAN: Acute non-recurrent frontal sinusitis (Primary) - Cefdinir 300 MG Oral Capsule (Omnicef); Take 1 Capsule by mouth in the morning and 1 Capsule before bedtime. Do all this for 7 days. Hyponatremia - BASIC METABOLIC PANEL; Future; Expected date: 02/27/2024 Plan: Patient presents to office with daughter. Has been having sinus pain/pressure for the past week without improvement on symptomatic meds. Suspect acute frontal sinusitis. No evidence of LRTI at this time Reviewed her allergies. She has tolerated amoxicillin before would like to treat with cefdinir 300 mg twice daily for 7 days. Capsules will be easier with swallowing. Counseled on common side effectswhich to monitor Continue Mucinex 600 mg twice daily Consider saline rinses 3-4 times daily Will give order to check BMP to ensure her sodium levels are still stable. Lasts were 135 4 weeks ago. Has issues with hyponatremia in the past Follow Up: Return if symptoms worsen or fail to improve, for Follow up next routine with PCP as scheduled. | For: Follow up next routine with PCP as scheduled | Check-out note: Follow up next routine BMP today Eddie Johnson DO documented in this encounter Nursing Notes * Blanca Blanc CMA - 02/27/2024 11:53 AM EDT Patient presents today with sinus issues. She feels very weak and tired, sinus pressure and congestion, occasional cough with PND, and nausea due to mucus drainage. She states symptoms have been worse in the last 5 days but noticeable for at least 2 weeks. documented in this encounter Plan of Treatment Upcoming Encounters Date Type Department Care Team (Late st Contact Info) Description 03/14/2024 1:30 PM EDT Telemedicine Psychiatry Dallin Srinivasan [address] [place] [address] Zee Zapata MD [address] [place] [address] 03/19/2024 10:45 AM EDT Office Visit General Surgery, [facility] [address] [place] [address] Vijaya Samano MD [address] [place] [address] 03/22/2024 3:00 PM EDT Immunization/Injection Hematology/Oncology Treatment, [place] [address] [place] [phone] [place], Chair 8 Hem Onc [address] [place] [address] 03/27/2024 3:00 PM EDT Office Visit Hematology/Oncology [facility] [address] [place] [phone] Cal Quiroga MD [address] [facility] [place] [address] 04/29/2024 2:15 PM EST Office Visit Urology, [facility] [address] [facility] [place] [address] Mendel Macedo MD [address] [place] [address] 06/04/2024 3:40 PM EST Telemedicine Sleep Disorders Ctr [facility] [address] [facility] [place] [phone] Charmaine Mckeon, DO [address] [facility] [place] [address] 06/28/2024 1:00 PM EST Office Visit General Internal Medicine [facility] [address] [facility] [place] [address] Patience Berrios PA-C [address] [facility] [place] [address] 08/08/2024 3:00 PM EDT Office Visit Hematology/Oncology [facility] [place] [address] [place] [phone] Marietta Salazar CRNP [address] [facility] [place] [id number] 09/13/2024 11:20 AM EDT Office Visit Nephrology, [facility] [address] [place] [address] Haresh Mark MD [address] [facility] [place] [address] 10/14/2024 2:00 PM EDT Nurse Only Ancillary [facility] [place] [address] [place] [address] [place]pa Nurse Annual Wellness [place] [address] [place] [address] [address] Health Maintenance Due Date Last Done Comments COVID-19 Vaccine ( season) 2024 04/11/2023, 03/22/2022, 02/18/2021, Additional history exists GFR 07/30/2024 02/27/2024, 0 08/2023, 12/27/2023, Additional history exists DXA Scan 09/20/2024 09/20/2021, 2 09/2021, 10/23/2013, Additional history exists Adult Wellness Visit 10/08/2024 10/09/2023, 10/06/2022, 08/20/2021 Albumin/Creatinine Ratio 12/14/2024 024, 10/18/2022, 07/17/2020, Additional history exists HbA1c 12/14/2024 12/15/2023, 12/2023, 07/13/2022, Additional history exists CKD PHOS USE SMARTSET 63569 01/30/20250 08/2023, 12/27/2023, 10/06/2021, Additional history exists CKD HGB USE SMARTSET 28374 02/08/202502/08, 02/09/2024, 01/31/2024, Additional history exists Depression Monitoring 02/18/2025 02/19/2024, 024 DTap/Tdap Vaccines (3 - Td or Tdap) 03/07/2032 03/07/2022, 08/12/2010 Pneumococcal Vaccine: 65+ Years Completed 06/30/2014, 08/12/2010 RETIRED - COLONOSCOPY-EVERY 5 YRS AGES 18-100 Discontinued 04/13/2016, 09/08/2010 Zoster Vaccines Completed 06/18/2019, 02/13/2018 Diabetic Foot Exam Discontinued 04/15/2020 Diabetic Eye Exam Discontinued 05/01/2023, , 04/28/2022, Additional history exists Influenza Vaccine (FLU shot) Completed 02/09/2024, 02/07/2023, 02/08/2022, Additional history exists HPV (Gardasil) Vaccine Aged [...] filedocumented as of this encounter Results * (ABNORMAL) BASIC METABOLIC PANEL (02/27/2024 12:24 PM EDT) BUN 32(H) 6 - 20 mg/dL 02/27/2024 1:37 PM EDT [place] [address] CREATININE 0.9 0.5 - 1.0 mg/dL 02/27/2024 1:37 PM EDT [address] EGFR 63 >=60 mL/min 02/27/2024 1:37 PM EDT [address] Comment:eGFR is calculated b ased on the CKD-EPI 2020 equation. SODIUM 134(L) 135 - 146 mmol/L 02/27/2024 1:37 PM EDT [place] [address]- POTASSIUM 4.5 3.5 - 5.1 mmol/L 02/27/2024 1:37 PM EDT [address] CHLORIDE 96(L) 98 - 107 mmol/L 02/27/2024 1:37 PM EDT [address] CO2 29 22 - 32 mmol/L 02/27/2024 1:37 PM EDT [address] ANION GAP 9 7 - 15 mmol/L 02/27/2024 1:37 PM EDT [facility] 56 GLUCOSE 100 70 - 120 mg/dL 02/27/2024 1:37 PM EDT [address] CALCIUM 9.1 8.4 - 10.2 mg/dL 02/27/2024 1:37 PM EDT [address] Blood Venous blood specimen / Unknown Venipuncture / Unknown 02/27/2024 12:24 PM EDT 02/27/2024 12:26 PM EDT Eddie Johnson DO LAB BLOOD OR DERABLES [facility] [address] [place] [address] documented in this encounter Visit Diagnoses Diagnosis Acute non-recurrent frontal sinusitis- Primary Hyponatremia Hyposmolality and/or hyponatremia documented in this encounter Advance Directives * Full Code (Latest Code Status on File) Date Activated Date Inactivated Comments 09/24/2012 8:15 PM 10/02/2012 7:35 PM This order re flects the patients wishes and were consensually agreed upon. Care Teams Pump Tender Relationship Specialty Start Date End Date Jose M Seth MD [address] [place] [place] [address] PCP - General Internal Medicine 11/21/11 documented as of this encounter
--- OUTSIDE RECORDS SUMMARY | 2024-02-28 21:38 | External Medical Summary | Summary of Care ---
Author Name Unknown Organization [facility] Address [address] [place] [address] Phone [phone] Care Team Providers Care Rotary Slicing Machine Operator Name Role Phone Jose M Seth MD Primary Care Provider + Reason for Visit * Reason Comments Outpatient Testing Encounter Details Date Type Department Care Team (Late st Contact Info) Description 02/27/2024 12:20 PM EDT Laboratory Laboratory [facility] [place] [address] [place] [address] [facility] 200 [facility] [place] [address] Hyponatremia Allergies Active Allergy Reactions Criticality Noted [...] needed. 100 Tab 04/15/2020 Active Saline Nasal [place] 0.65 % Nasal Solution ([place] Nasal [place]) Two sprays in each nostril as needed [...] Active Commode BedsideIndications:C hronic diastolic heart failure (HCC),FCI current use of diuretic Bedside commode. Use [...] mRNA, LNP-s, No Pre serve, 2-Dose Series (Catacel) 02/18/2021,08/10/2020,07/06/2020 COVID-19, MRNA-LNP, 23-24, P F, 30 MCG/0.3 mL, 12 YRS AND ABOVE, IM (Favbuy-ComirnatWallstr) 04/11/2023 Covid-19, Mrna, Lnp-s, Pf, B ivalent, 30 Mcg, IM, 12 yrs and above (Catacel) 03/22/2022 Pneumococcal Conjugate Vacc, 13 Valent (Prevnar) [...] PM EDT Telemedicine Psychiatry Dallin Srinivasan [address] [place] [address] Zee Zapata MD [address] [place] [phone] 03/19/2024 10:45 AM EDT Office Visit General Surgery, [facility] [address] [facility] [place] [address] Vijaya Samano MD 132 [place] [address] 03/22/2024 3:00 PM EDT Immunization/Injection Hematology/Oncology Treatment, [place] [address] [place] [address] Shilpa, Chair 8 Hem Onc [place] [address] [address] [place] [address] 03/27/2024 3:00 PM EDT Office Visit Hematology/Oncology [facility] [place] 200 [facility] [place] [address] Cal Quiroga MD [address] [address] [address] 04/29/2024 2:15 PM EST Office Visit Urology, [facility] 132 [place] [address] Mendel Macedo MD [address] [place] [id number] 06/04/2024 3:40 PM EST Telemedicine Sleep Disorders [facility] 132 [facility] [place] [phone] Charmaine Mckeon DO 132 [facility] [address] 06/28/2024 1:00 PM EST Office Visit General Internal Medicine [facility] [address] [place] [address] [address] Patience Berrios PA-C 200 [facility] [place] [address] 08/08/2024 3:00 PM EDT Office Visit Hematology/Oncology [facility] [place] [address] [place] [address] [address] Marietta Salazar, JA 400 [facility] [place] [id number] 09/13/2024 11:20 AM EDT Office Visit Nephrology, [facility] [address] [place] [address] [address] Haresh Mark MD [address] [place] [address] [address] 10/14/2024 2:00 PM EDT Nurse Only Ancillary [facility] [place] [address] [address] [place], Nurse Annual Wellness [facility] [address] [place] [address] [address] Pending Results Name Type Priority Associated Diagnoses Date /Time BASIC METABOLIC PANEL Lab Routine Hyponatremia 02/27/2024 12:24 PM EDT Health Maintenance Due Date Last Done Comments COVID-19 Vaccine ( season) 2024 04/11/2023, 03/22/2022, 02/18/2021, Additional history exists GFR 07/30/2024 01/31/2024, 3 05/2023, 12/15/2023, Additional history exists DXA Scan 09/20/2024 09/20/2021, 08/28, 10/23/2013, Additional history exists Adult Wellness Visit 10/08/2024 10/09/2023, 10/06/2022, 08/20/2021 Albumin/Creatinine Ratio 12/14/2024 024, 10/18/2022, 07/17/2020, Additional history exists HbA1c 12/14/2024 12/15/2023, 07/0 12/2023, 07/13/2022, Additional history exists CKD PHOS USE SMARTSET 81882 01/30/2025 09/0 08/2023, 12/27/2023, 10/06/2021, Additional history exists CKD HGB USE SMARTSET 05907 02/08/202502/08, 02/09/2024, 01/31/2024, Additional history exists Depression [...] as of this encounter Visit Diagnoses Diagnosis Hyponatremia Hyposmolality and/or hyponatremia documented in this encounter Advance Directives * Full Code (Latest Code Status on File) Date Activated Date Inactivated Comments 09/24/2012 8:15 PM 10/02/2012 7:35 PM This order re flects the patients wishes and were consensually agreed upon. Care Teams Rotary Slicing Machine Operator Relationship Specialty Start Date End Date Jose M Seth MD 200 [place] [address] PCP - General Internal Medicine 11/21/11 documented as of this encounter
--- OUTSIDE RECORDS SUMMARY | 2024-02-28 21:38 | External Medical Summary | Summary of Care ---
Author Name Unknown Organization [facility] Address [address] [place] [address] Phone [phone] Care Team Providers Care Winery Cellar Hand Name Role Phone Jose M Seth MD Primary Care Provider + Reason for Visit * Reason Onset Date Comments Advice 02/26/2024 Encounter Details Date Type Department Care Team (Late st Contact Info) Description 02/26/2024 Telephone General Internal Medicine [facility] 200 [place] [address] Jose M Seth MD 200 [place] [address] Advice Allergies Active Allergy Reactions Criticality Noted [...] needed. 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 Use [...] the morning. 90 Tablet 3 02/23/2024 Active documented as of this encounter (statuses [...] MD Pharmacy: Maricruz Foster [facility] 08/09/2013 12/16/2015 Dementia 07/19/2013 2017 Encounter for [...] mRNA, LNP-s, No Pre serve, 2-Dose Series (Vivakor) 02/18/2021,08/10/2020,07/06/2020 COVID-19, MRNA-LNP, 23-24, P F, 30 [...] No 10/09/2023 Does the household have a [facility] source of income? (Household - for [...] encounter Miscellaneous Notes * Telephone Encounter - Rajinder Hernadez RN - 02/27/2024 2:54 PM EDT Please see previous message. Patient was in to see Dr. Johnson for office visit today. Please seeoffice visit note for more information. FYI. * Telephone Encounter - Omar Meredith OSA - 02/26/2024 8:48 AM EDT Kathy has not been about to take Urea yesterday or today due to sinus infection. Feels wobbly on feet and uses walker to move around. Is afraid to get up at the moment. Daughter is checking in on her. Is taking Delsyn 2 times a day and pamela. Feels nauseated. Is asking if there is anything recommended please call Molina [phone]. Please and advise Thank you documented in this encounter Plan of Treatment Upcoming Encounters Date Type Department Care Team (Late st Contact Info) Description 03/14/2024 1:30 PM EDT Telemedicine Psychiatry Dallin Srinivasan [address] [place] [place] [address] Zee Zapata MD [address] [place] [address] 03/19/2024 10:45 AM EDT Office Visit General Surgery, [facility] [address] [place] [address] Vijaya Samano MD [address] [place] [address] 03/22/2024 3:00 PM EDT Immunization/Injection Hematology/Oncology Treatment, [place] [address] [place] [phone] Shilpa, Chair 8 Hem Onc [facility] [address] [facility] [address] 03/27/2024 3:00 PM EDT Office Visit Hematology/Oncology [facility] [place] [address] [address] Cal Quiroga MD [address] [place] [address] 04/29/2024 2:15 PM EST Office Visit Urology, [facility] 132 [facility] [place] [address] Mendel Macedo MD [address] [place] [phone] 06/04/2024 3:40 PM EST Telemedicine Sleep Disorders [facility] 132 [facility] [place] [phone] Charmaine Mckeon DO 132 [place] [address] 06/28/2024 1:00 PM EST Office Visit General Internal Medicine [facility] [address] [place] [address] Patience Berrios PA-C 200 [facility] [place] [address] 08/08/2024 3:00 PM EDT Office Visit Hematology/Oncology [facility] [place] [address] [place] [address] Marietta Salazar CRNP 400 [facility] [place] [id number] 09/13/2024 11:20 AM EDT Office Visit Nephrology, [facility] [address] [place], [place] [address] Haresh Mark MD [address] [place] [address] [address] 10/14/2024 2:00 PM EDT Nurse Only Ancillary [place] Ailyn Massey [address] [place], [place] [address] Shilpa Nurse Annual Wellness [place] [address] [place], [place] [address] Health Maintenance Due Date Last Done Comments COVID-19 Vaccine ( season) 2024 04/11/2023, 03/22/2022, 02/18/2021, Additional history exists GFR 08/27/2024 02/27/2024, 090 08/2023, 12/27/2023, Additional history exists DXA Scan 09/20/2024 09/20/2021, 2 09/2021, 10/23/2013, Additional history exists Adult Wellness Visit 10/08/2024 10/09/2023, 10/06/2022, 08/20/2021 Albumin/Creatinine Ratio 12/14/2024 024, 10/18/2022, 07/17/2020, Additional history exists HbA1c 12/14/2024 12/15/2023, 07/0 12/2023, 07/13/2022, Additional history exists CKD PHOS USE SMARTSET 13499 01/30/2025 090 08/2023, 12/27/2023, 10/06/2021, Additional history exists CKD HGB USE SMARTSET 54505 02/08/202502/08, 02/09/2024, 01/31/2024, Additional history exists Depression [...] and were consensually agreed upon. Care Teams Winery Cellar Hand Relationship Specialty Start Date End Date Jose M Seth MD 200 [place] [address] PCP - General Internal Medicine 11/21/11 documented as of this encounter
--- OUTSIDE RECORDS SUMMARY | 2024-02-28 21:38 | External Medical Summary ---
Author Name Unknown Address Unknown Organization K09:[facility] [place] [address] Laboratory Report Ordering Provider Test Date Status KASSANDRA CA 02/27/2024 12:24:15 Final Observation Date Value Abnormality Reference (Units ) Status BUN 02/27/2024 12:24:15 32 Above high normal 6-20 (mg/dL) Final Creatinine 02/27/2024 12:24:15 0.9 0.5-1.0 (mg/dL) Final Glomerular filtration rate/1.73 sq M.predicted [Volume Rate/Area] in Serum, Plasma or Blood by Creatinine-based formula (CKD-EPI) 02/27/2024 12:24:15 63 >=60 (mL/min) Final eGFR is calculated based on the CKD-EPI 2020 equation. Sodium 02/27/2024 12:24:15 134 Below low normal 135 -146 (mmol/L) Final Potassium 02/27/2024 12:24:15 4.5 3.5-5.1 (m mol/L) Final Cl 02/27/2024 12:24:15 96 Below low normal 98- 107 (mmol/L) Final CO2 02/27/2024 12:24:15 29 22-32 (mmo l/L) Final Anion gap 02/27/2024 12:24:15 9 7-15 (mmol /L) Final Glucose 02/27/2024 12:24:15 100 70-120 (mg /dL) Final Calcium 02/27/2024 12:24:15 9.1 8.4-10.2 ( mg/dL) Final Performing Location [facility] [place] [address]
--- OUTSIDE RECORDS SUMMARY | 2024-02-28 21:39 | External Medical Summary | Summary of Care ---
Author Name Unknown Organization [facility] Address [address] [place] [address] Phone [phone] Care Team Providers Care Fine Arts Chair Name Role Phone Jose M Seth MD Primary Care Provider + Reason for Referral * Precert (Within 10 days (routine)) - Pending Review Specialty Diagnoses / Procedures Referred By Nelia noble Referred To Contact Radiology Diagnoses Anemia, unspecified type MGUS (monoclonal gammopathy of unknown significance) History of endometrial cancer History of breast cancer Procedures IR BIOPSY Marietta Salazar CRNP [address] [place] [address] Referral ID Status Reason Start Date Expiration Date V isits Requested Visits Authorized [id number] Pending Review 02/14/2024 999 999 Reason for Visit * Reason Onset Date Comments Outpatient Testing 02/12/2024 Advice 02/12/2024 Marietta Salazar Encounter Details Date Type Department Care Team (Late st Contact Info) Description 02/12/2024 Telephone Hematology/Oncology [facility] [place] 200 [facility] [place] [address] Marietta Salazar CRNP [address] [place] [address] Outpatient Testing; Advice (Marietta Salazar) Allergies Active Allergy Reactions Criticality Noted Date [...] as of this encounter (statuses as of 02/14/2024) Medications Medication Sig Dispensed Refills Start Date [...] needed. 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 90 Tablet 01/24/2024 Active documented as of this encounter (statuses as of 02/14/2024) Active Problems Problem Noted Date Diagnosed Date [...] as of this encounter (statuses as of 02/14/2024) Resolved Problems Problem Noted Date Diagnosed Date [...] Jose M Seth MD Pharmacy: Maricruz Foster [facility] 08/09/2013 12/16/2015 Dementia 07/19/2013 2017 [...] as of this encounter (statuses as of 02/14/2024) Immunizations Name Administration Dates Next Due COVID-19 mRNA, LNP-s, No Pre serve, 2-Dose Series ([employer]) 02/18/2021,08/10/2020,07/06/2020 COVID-19, MRNA-LNP, 23-24, P F, 30 [...] 65+ Yrs, IM (FLUAD) 02/12/2020 Seasonal Influenza, High Dos e, Trivalent, PF, IM (Fluzone HD) 02/09/2024 Seasonal Influenza, PF, 6 M & above, IM , (FluLaval or Fluzone) 02/28/2018,04/07/2017 Seasonal Influenza, Quadriva lent Hd (Fluzone Hd) 02/07/2023,02/08/2022,02/08/2021 Seasonal Influenza, Quadriva lent, No Preserve, IM 02/10/2016,03/06/2015 Seasonal Influenza, Trivalen t, (IIV3), with Preserv, (Fluzone) 02/19/2014,02/13/2013,02/02/2012,04/14,05/03/2010 Seasonal Influenza, Trivalen t, Adjuvanted, 65+ YRS, [...] Date Recorded PHQ Adult Total Score 0 01/01/2024 Hunger Vital Sign Answer Date Recorded Within [...] encounter Miscellaneous Notes * Telephone Encounter - Garrett Saldana RN - 02/14/2024 8:17 AM EDT Called Kathy. Reviewed reason for recommendation for BMBx. Patient agreeable, denied any other questions. * Telephone Encounter - Crissy Brito OSA - 02/13/2024 5:13 PM EDT Pt of Mariteta Mcmanus, I have pt Kathy Kathleen Nadine is returning your call. Are you available to speak with her now? "She already returned my call today and spoke to Garrett? I am not available right now. If she has additional questions we can give her a call tomorrow"?-Van Okay, thank you! If you can please call pt back at [phone]. If pt can't be reached please leave a detailed message for pt because she wants to understand what she is doing. All she knows if abi is having a Bone Biopsy. Thank you! Can you put this in a telephone encounter please and route it to me and the oncology nurse pool robert rice. I am off tomorrow but the nurse who spoke with her is here again tomorrow. * Telephone Encounter - Keisha Lima OSA - 02/13/2024 11:09 AM EDT Printed and faxed to [phone] per [facility] * Addendum Note - Garrett Saldana RN - 02/13/2024 10:47 AM EDTAddended by: GARRETT SALDANA on: 02/13/2024 10:47 AM Modules accepted: Orders * Telephone Encounter - Garrett Saldana RN - 02/13/2024 10:06 AM EDT Called patient. Reviewed Kim note, patient agreeable to BMBx. She would like this at [facility]. Order placed. TT sent to Tonya in [facility]. Scheduling: please fax order to [facility]. Thanks! * Telephone Encounter - Marietta Salazar CRNP - 02/12/2024 4:32 PM EDT Results for orders placed or performed in visit on 02/09/24 RETICULOCYTE PANEL Result Value Ref Range Reticulocyte Percent 1.81 0.80 - 1.90 % Absolute Reticulocyte 50.9 31.3 - 100.1 K/uL Immature Reticuloctye Fraction 12.8 2.5 - 20.6 % Reticulocyte Hemoglobin 33.7 29.7 - 37.4 pg LD Result Value Ref Range LD 149 <=250 U/L CBC Result Value Ref Range WBC 2.89 (L) 4.00 - 10.80 K/uL RBC 2.81 3.85 - 5.15 M/uL HGB 8.8 (L) 12.0 - 15.3 g/dL HCT 27.2 (L) 36.0 - 45.2 % MCV 96.8 81.5 - 97.5 fL MCH 31.3 27.0 - 34.0 pg MCHC 32.4 32.0 - 36.0 g/dL RDW 15.2 11.5 - 15.5 % PLT 151 140 - 400 K/uL MPV 11.7 6.6 - 11.1 fL nRBCs 0 <=0 /100 WBCs DIFFERENTIAL, AUTOMATED Result Value Ref Range WBC 2.89 (L) 4.00 - 10.80 K/uL Neutrophils % 61.7 40.0 - 75.0 % Lymphocytes % 25.3 18.0 - 42.0 % Monocytes % 11.4 (H) 1.0 - 11.0 % Eosinophils % 1.0 0.0 - 6.0 % Basophils % 0.3 0.0 - 2.0 % Immature Granulocytes % 0.3 0.0 - 2.0 % Absolute Neutrophils 1.78 (L) 1.80 - 7.70 K/uL Absolute Lymphocytes 0.73 (L) 1.00 - 4.80 K/ul Absolute Monocytes 0.33 0.00 - 1.10 K/uL Absolute Eosinophils 0.03 0.00 - 0.70 K/uL Absolute Basophils 0.01 0.00 - 0.20 K/uL Absolute Immature Granulocytes 0.01 0.00 - 0.20 K/uL *Note: Due to a large number of results and/or encounters for the requested time period, some results have not been displayed. A complete set of results can be found in Results Review. Worsening anemia noted. No clear etiology. Absolute retic count is not appropriately elevated. Now also with a mild neutropenia as well. Normocytic indices. Myeloma panel from November. Renal function stable. Reviewed case with Dr. Quiroga. Recommending bone marrow biopsy and aspiration for further evaluation. Attempted to call patient to review. No answer. Left message for patient to return call. documented in this encounter Plan of Treatment Upcoming Encounters Date Type Department Care Team (Late st Contact Info) Description 03/14/2024 1:30 PM EDT Telemedicine Psychiatry Dallin Srinivasan [address] [phone] Zee Zapata MD [address] [place] [place] [address] 03/22/2024 3:00 PM EDT Immunization/Injection Hematology/Oncology Treatment, [place] [address] [place] [phone] Shilpa, Chair 8 Hem Onc [facility] 200 [facility] [place] [address] 04/29/2024 2:15 PM EST Office Visit Urology, [facility] [address] [facility] [place] [phone] Mendel Macedo MD [address] [place] [address] 06/04/2024 3:40 PM EST Telemedicine Sleep Disorders Ctr [facility] [place] 132 [facility] [place] [phone] Charmaine Mckeon DO 132 [facility] [place] [address] 06/28/2024 1:00 PM EST Office Visit General Internal Medicine [facility] Shilpa [place] [address] [place] [address] Patience Berrios PA-C [address] [place] [address] 08/08/2024 3:00 PM EDT Office Visit Hematology/Oncology [facility] Shilpa [place] 200 [facility] [place] [phone] Marietta Salazar CRNP [facility] [place] [address] 09/13/2024 11:20 AM EDT Office Visit Nephrology, [facility] 200 [facility] [place] [address] Haresh Mark MD 200 [facility] [place] [address] 10/14/2024 2:00 PM EDT Nurse Only Ancillary [facility] [place] 200 [facility] [place] [address] Shilpa, Nurse Annual Wellness [address] [place] [address] Scheduled Orders Name Type Priority Associated Diagnoses Orde r Schedule IR BIOPSY Medical Imaging Routine Anemia, unspecified type MGUS (monoclonal gammopathy of unknown significance) History of endometrial cancer History of breast cancer Expected: 02/14/2024, Expires: 03/14/2025 Health Maintenance Due Date Last Done Comments COVID-19 Vaccine ( season) 2024 04/11/2023, 03/22/2022, 02/18/2021, Additional history exists GFR 07/30/2024 01/31/2024, 11/28, 12/15/2023, Additional history exists DXA Scan 09/20/2024 09/20/2021, 08/28, 10/23/2013, Additional history exists Adult Wellness Visit 10/08/2024 10/09/2023, 10/06/2022, 08/20/2021 Albumin/Creatinine Ratio 12/14/2024 024, 10/18/2022, 07/17/2020, Additional history exists HbA1c 12/14/2024 12/15/2023, 07/0 12/2023, 07/13/2022, Additional history exists Depression Monitoring 12/31/2024 01/01/2024, 024 CKD PHOS USE SMARTSET 17303 01/30/2025 09/0 08/2023, 12/27/2023, 10/06/2021, Additional history exists CKD HGB USE SMARTSET 04843 02/08/202502/08, 02/09/2024, 01/31/2024, Additional history exists DTap/Tdap Vaccines (3 - Td or Tdap) [...] Visit Diagnoses Diagnosis Anemia, unspecified type- Primary MGUS (monoclonal gammopathy of unknown significance) Monoclonal paraproteinemia History of endometrial cancer Personal history of malignant neoplasm of other parts of uterus History of breast cancer Personal history of malignant neoplasm of breast documented in this encounter Advance Directives * Full Code (Latest Code Status on File) Date Activated Date Inactivated Comments 09/24/2012 8:15 PM 10/02/2012 7:35 PM This order re flects the patients wishes and were consensually agreed upon. Care Teams Fine Arts Chair Relationship Specialty Start Date End Date Jose M Seth MD 200 [place] [address] PCP - General Internal Medicine 11/21/11 documented as of this encounter
--- OUTSIDE RECORDS SUMMARY | 2024-02-28 21:39 | External Medical Summary | Summary of Care ---
Author Name Unknown Organization [facility] Address [address] [place] [address] Phone [phone] Care Team Providers Care Track Helper Name Role Phone Jose M Seth MD Primary Care Provider + Reason for Referral * Precert (Within 10 days (routine)) - Pending Review Specialty Diagnoses / Procedures Referred By Nelia noble Referred To Contact Radiology Diagnoses Anemia, unspecified type MGUS (monoclonal gammopathy of unknown significance) History of endometrial cancer History of breast cancer Procedures IR BIOPSY Marietta Salazar CRNP [address] [place] [place] [id number] Referral ID Status Reason Start Date Expiration Date V isits Requested Visits Authorized [id number] Pending Review 02/14/2024 999 999 Reason for Visit * Reason Onset Date Comments Outpatient Testing 02/12/2024 Encounter Details Date Type Department Care Team (Late st Contact Info) Description 02/12/2024 Telephone Hematology/Oncology Brian Massey [place] [address] [place] [address] Marietta Salazar CRNP 400 [place] [address] Outpatient Testing Allergies Active Allergy Reactions Criticality Noted Date [...] as of this encounter (statuses as of 02/13/2024) Medications Medication Sig Dispensed Refills Start Date [...] needed. 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 Use [...] as of this encounter (statuses as of 02/13/2024) Active Problems Problem Noted Date Diagnosed Date [...] as of this encounter (statuses as of 02/13/2024) Resolved Problems Problem Noted Date Diagnosed Date [...] as of this encounter (statuses as of 02/13/2024) Immunizations Name Administration Dates Next Due COVID-19 mRNA, LNP-s, No Pre serve, 2-Dose Series ([employer]) 02/18/2021,08/10/2020,07/06/2020 COVID-19, MRNA-LNP, 23-24, P F, 30 MCG/0.3 mL, 12 YRS AND ABOVE, IM ([facility]) 04/11/2023 Covid-19, Mrna, Lnp-s, Pf, [...] No 10/09/2023 Does the household have a [facility] source of income? (Household - for ages [...] encounter Miscellaneous Notes * Addendum Note - Garrett Saldana RN - 02/13/2024 10:47 AM EDTAddended by: GARRETT SALDANA on: 02/13/2024 10:47 AM Modules accepted: Orders * Telephone Encounter - Garrett Saldana RN - 02/13/2024 10:06 AM EDT Called patient. Reviewed Kim note, patient agreeable to BMBx. She would like this at [facility]. Order placed. TT sent to Tonya in [facility]. Scheduling: please fax order to [facility]. Thanks! * Telephone Encounter - Marietta [...] as well. Normocytic indices. Myeloma panel from November stable. Renal function stable. Reviewed case with Dr. [...] [place] [id number] Zee Zapata MD [address] [place] [address] 03/22/2024 3:00 PM EDT Immunization/Injection Hematology/Oncology Treatment, [place] 200 [facility] [phone] Shilpa, Chair 8 Hem Onc [address] [place] [address] 04/29/2024 2:15 PM EST Office Visit Urology, [facility] 132 [facility] [place] [address] Mendel Macedo MD [address] [place] [address] 06/04/2024 3:40 PM EST Telemedicine Sleep Disorders Ctr [facility] 132 [facility] [place] [phone] Charmaine Mckeon DO 132 [facility] [place] [address] 06/28/2024 1:00 PM EST Office Visit General Internal Medicine [address] [place] [address] Patience Berrios PA-C [address] [facility] [place] [address] 08/08/2024 3:00 PM EDT Office Visit Hematology/Oncology [facility] [place] [address] [facility] [address] [place], [place] [address] Marietta Salazar CRNP 400 [facility] [place] [address] 09/13/2024 11:20 AM EDT Office Visit Nephrology, [facility] [address] [facility] [address] [place], [place] [address] Haresh Mark MD [address] [facility] [address] [place], [place] [address] 10/14/2024 2:00 PM EDT Nurse Only [facility] [place], [place] [address] Shilpa, Nurse Annual Wellness [address] [place], [place] [address] Scheduled Orders Name Type Priority Associated Diagnoses [...] 07/17/2020, Additional history exists HbA1c 12/14/2024 12/15/2023, 0 12/2023, 07/13/2022, Additional history exists Depression Monitoring 12/31/2024 01/01/2024, 024 CKD PHOS USE SMARTSET 96503 01/30/2025 09/0 08/2023, 12/27/2023, 10/06/2021, Additional history exists CKD HGB USE SMARTSET 81420 02/08/202502/08, 02/09/2024, 01/31/2024, Additional history exists DTap/Tdap [...] and were consensually agreed upon. Care Teams Track Helper Relationship Specialty Start Date End Date Doberstein, Jose M F, MD 200 [place] [address] PCP - General Internal Medicine 11/21/11 documented as of this encounter
--- OUTSIDE RECORDS SUMMARY | 2024-02-28 21:39 | External Medical Summary | Summary of Care ---
Author Name Unknown Organization [facility] Address [address] [place] [address] Phone [phone] Care Team Providers Care Cotton Picking Machine Operator Name Role Phone Jose M Seth MD Primary Care Provider + Reason for Referral * Precert (Within 10 days (routine)) - Pending Review Specialty Diagnoses / Procedures Referred By Nelia noble Referred To Contact Radiology Diagnoses Anemia, unspecified type MGUS (monoclonal gammopathy of unknown significance) History of endometrial cancer History of breast cancer Procedures IR BIOPSY Marietta Salazar CRNP [address] [place] [place] [address] Referral ID Status Reason Start Date Expiration Date V isits Requested Visits Authorized [id number] Pending Review 02/14/2024 999 999 Reason for Visit * Reason Onset Date Comments Outpatient Testing 02/12/2024 Encounter Details Date Type Department Care Team (Late st Contact Info) Description 02/12/2024 Telephone Hematology/Oncology Brian Massey [place] [address] [place] [address] Marietta Salazar CRNP 400 [place] [address] Outpatient Testing Allergies Active Allergy Reactions [...] needed. 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 Use [...] PSG -- AHI 10.7, <89% 128 mins [facility] Returned machine Jun 2013 Nocturnal hypoxemia 06/18/2012 Overview: 2 LPM [facility] Chronic knee pain History of wound [...] Jose M Seth MD Pharmacy: Maric[facility] 08/09/2013 12/16/2015 Dementia 07/19/2013 [...] LNP-s, No Pre serve, 2-Dose Series ([employer] [place] [employer]) 02/18/2021,08/10/2020,07/06/2020 COVID-19, MRNA-LNP, 23-24, P F, 30 MCG/0.3 mL, 12 YRS AND ABOVE, IM ([facility]) 04/11/2023 Covid-19, Mrna, Lnp-s, Pf, B [...] No 10/09/2023 Does the household have a [facility] source of income? (Household - for [...] Miscellaneous Notes * Telephone Encounter - Keisha Lima OSA - 02/13/2024 11:09 AM EDT Printed and faxed to [phone] per [facility] * Addendum Note - Garrett Saldana RN - 02/13/2024 10:47 AM EDTAddended by: GARRETT SALDANA on: 02/13/2024 10:47 AM Modules accepted: Orders * Telephone Encounter - Garrett Saldana RN - 02/13/2024 10:06 AM EDT Called patient. Reviewed Kim note, patient agreeable to BMBx. She would like this at [facility]. Order placed. TT sent to Tonya in [facility]. Scheduling: please fax order to [facility]. Thanks! * Telephone Encounter - Marietta SalazarJA - 02/12/2024 4:32 PM EDT Results for [...] [id number] Zee Zapata MD [address] [place] [address] 03/22/2024 3:00 PM EDT Immunization/Injection Hematology/Oncology Treatment, [place] [address] [place] [phone] Shilpa, Chair 8 Hem Onc [address] [address] [place] [address] 04/29/2024 2:15 PM EST Office Visit Urology, [facility] 132 [facility] [place] [phone] Mendel Macedo MD [address] [place] [id number] 06/04/2024 3:40 PM EST Telemedicine Sleep Disorders Ctr [facility] 132 [facility] [place] [address] Charmaine Mckeon, DO [address] [place] [address] 06/28/2024 1:00 PM EST Office Visit General Internal Medicine [facility] [place] [facility] [place] [address] Patience Berrios PA-C 200 [facility] [place] [address] 08/08/2024 3:00 PM EDT Office Visit Hematology/Oncology [facility] [place] [address] [facility] [place] [phone] Marietta Salazar CRNP [address] [place] [address] 09/13/2024 11:20 AM EDT Office Visit Nephrology, [facility] 200 [facility] [place] [address] Haresh Mark MD 200 [facility] [place] [address] 10/14/2024 2:00 PM EDT Nurse Only [facility] Sh[place]pa [place] [address] [facility] [place] [address] Shilpa, Nurse Annual Wellness [address] [place] [address] Scheduled Orders Name Type Priority Associated Diagnoses [...] 12/31/2024 01/01/2024, 024 CKD PHOS USE SMARTSET 06670 01/30/2025 090 08/2023, 12/27/2023, 10/06/2021, Additional history exists CKD HGB USE SMARTSET 35602 02/08/202502/08, 02/09/2024, 01/31/2024, Additional history exists DTap/Tdap [...] and were consensually agreed upon. Care Teams Cotton Picking Machine Operator Relationship Specialty Start Date End Date Jose M Seth MD 200 [place], [place] [id number] PCP - General Internal Medicine 11/21/11 documented as of this encounter
--- OUTSIDE RECORDS SUMMARY | 2024-02-28 21:39 | External Medical Summary | Summary of Care ---
Author Name Unknown Organization [facility] Address [address] [place] [address] Phone [phone] Care Team Providers Care Dietetic Assistant Name Role Phone Jose M Seth MD Primary Care Provider + Reason for Visit * Reason Onset Date Comments Medication Refill 02/23/2024 Encounter Details Date Type Department Care Team (Late st Contact Info) Description 02/23/2024 Refill Urology, [facility] [address] [place] [address] Mendel Moore MD [address] [place] [address] Allergies Active Allergy Reactions Criticality Noted [...] as of this encounter (statuses as of 02/23/2024) Medications Medication Sig Dispensed Refills Start Date [...] night at bedtime. With CPAP 5 Active Acetaminophen 500 MG Oral Tablet (TYLENOL) Take 2 Tablets by mouth every 8 hours as needed. 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 Use [...] As directed. 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 90 Tablet 4 Active oxyBUTYnin Chloride ER 15 MG Oral Tablet Extended Release 24 Hour (Ditropan XL) Take 1 Tablet by mouth in the morning. 90 Tablet 3 4 Active Oxybutynin Chloride ER 15 MG Oral Tablet Extended Release 24 Hour (DITROPAN XL) Take 1 Tablet by mouth in the morning. 0 02/23/20 24 Discontinu ed(Refill) documented as of this encounter (statuses as of 02/23/2024) Active Problems Problem Noted Date Diagnosed Date [...] PSG -- AHI 10.7, <89% 128 mins [facility] Returned machine Jun 2013 Nocturnal hypoxemia 06/18/2012 Overview: 2 LPM [facility] 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 documented as of this encounter (statuses as of 02/23/2024) Resolved Problems Problem Noted Date Diagnosed Date [...] as of this encounter (statuses as of 02/23/2024) Immunizations Name Administration Dates Next Due COVID-19 mRNA, LNP-s, No Pre serve, 2-Dose Series ([employer]) 02/18/2021,08/10/2020,07/06/2020 COVID-19, MRNA-LNP, 23-24, P F, 30 MCG/0.3 mL, 12 YRS AND ABOVE, IM ([facility]) 04/11/2023 Covid-19, Mrna, Lnp-s, Pf, B ivalent, [...] encounter Miscellaneous Notes * Telephone Encounter - Mendel Moore MD - 02/23/2024 1:38 PM EDTSigned Prescriptions: Disp Refills oxyBUTYnin Chloride ER 15 MG Oral Tablet E*90 Tab*3 Sig: Take 1 Tablet by mouth in the morning. Authorizing Provider: MENDEL MOORE * Telephone Encounter - Nancie Sharif LPN - 02/23/2024 1:36 PM EDTPending Prescriptions: Disp Refills oxyBUTYnin Chloride ER 15 MG Oral Tablet E*90 Tab*3 Sig: Take 1 Tablet by mouth in the morning. * Telephone Encounter - Nancie Sharif LPN - 02/23/2024 1:36 PM EDT Please refill the requested medication(s). Oxybutynin 12/19/2023 (in office), Visit date not found (telemedicine) 04/29/2024 Review of patient's allergies indicates: Allergen Reactions [...] Zyrtec [Cetirizine Hcl] Problems breathing, overly dry * Telephone Encounter - Lydia Gupta, hospitality specialist - 02/23/2024 1:31 PM EDT Patient is up to date for office visits. Pending Prescriptions: Disp Refills oxyBUTYnin Chloride ER 15 MG Oral Tablet *90 Tab*3 Sig: Take 1 Tablet by mouth in the morning. Last Visit: 12/19/2023 (in office), Visit date not found (telemedicine) Next Visit: 04/29/2024 If no future appointments scheduled, and last appointment is greater than a year ago, please schedule patient for a follow-up appointment Last date the medication was ordered: 03/25/2020 Pharmacy: Megan [facility]TEGA [address] Is this request for a controlled substance?No it is not controlled. Urine Drug Screen:No results found. However, due to the size of the patient record, not all encounters were searched. Please check Results Review for a complete set of results. Patient Phone Numbers Labs: Lab Results Component Value Date/Time CREAT 0.8 01/31/2024 01:53 PM CREAT 0.8 06/22/2020 10:11 AM POTASSIUM 4.4 01/31/2024 01:53 PM POTASSIUM 4.1 06/22/2020 10:11 AM TSH 2.79 12/09/2022 03:54 PM TSH 1.93 05/11/2020 08:04 AM LDL 73 12/15/2023 03:36 PM LDL 64 01/09/2020 04:34 PM LDL NOT APPLICABLE 01/09/2020 04:34 PM ALT 8 (L) 12/15/2023 03:36 PM ALT 7 (L) 06/22/2020 10:11 AM HGBA1C 5.4 12/15/2023 03:36 PM HGBA1C 5.8 (H) 01/09/2020 04:34 PM documented in this encounter Plan of Treatment Upcoming Encounters Date Type Department Care Team (Late st Contact Info) Description 03/14/2024 1:30 PM EDT Telemedicine Psychiatry Dallin Srinivasan [address] [place] [address] Zee Zapata MD 9 [place] [address] 03/19/2024 10:45 AM EDT Office Visit General Surgery, [facility] 132 [facility] [place] [address] Vijaya Samano MD 132 [facility] [place] [address] 03/22/2024 3:00 PM EDT Immunization/Injection Hematology/Oncology Treatment, [place] 200 [facility] [place] [phone] Shilpa, Chair [address] [place] [address] 03/27/2024 3:00 PM EDT Office Visit Hematology/Oncology [facility] [address] [place] [phone] Cal Quiroga MD 200 [facility] [place] [address] 04/29/2024 2:15 PM EST Office Visit Urology, [facility] 132 [facility] [place] [address] Mendel Moore MD [address] [place] [id number] 06/04/2024 3:40 PM EST Telemedicine Sleep Disorders Ctr [facility] 132 [facility] [place] [phone] Charmaine Mckeon DO 132 [facility] [place] [address] 06/28/2024 1:00 PM EST Office Visit General Internal Medicine [facility] [place] [address] [place] [address] Pateince Berrios PA-C [facility] [place] [address] 08/08/2024 3:00 PM EDT Office Visit Hematology/Oncology [facility] Shilpa [place] [address] [place] [address] Marietta Salazar CRNP 400 [facility] [place] [phone] 09/13/2024 11:20 AM EDT Office Visit Nephrology, [facility] [address] [address] Haresh Mark MD [address] [place] [address] 10/14/2024 2:00 PM EDT Nurse Only Ancillary [facility] Shilpa [place] [address] [address] Shilpa, Nurse Annual Wellness [place] [address] [address] Health Maintenance Due Date Last Done Comments COVID-19 Vaccine ( season) 2024 04/11/2023, 03/22/2022, 02/18/2021, Additional history exists GFR 07/30/2024 01/31/2024, 07/3 05/2023, 12/15/2023, Additional history exists DXA Scan 09/20/2024 09/20/2021, 2 09/2021, 10/23/2013, Additional history exists Adult Wellness Visit 10/08/2024 10/09/2023, 10/06/2022, 08/20/2021 Albumin/Creatinine Ratio 12/14/2024 024, 10/18/2022, 07/17/2020, Additional history exists HbA1c 12/14/2024 12/15/2023, 07/0 12/2023, 07/13/2022, Additional history exists CKD PHOS USE SMARTSET 58985 01/30/2025 09/0 08/2023, 12/27/2023, 10/06/2021, Additional history exists CKD HGB USE SMARTSET 37167 02/08/202502/08, 02/09/2024, 01/31/2024, Additional history exists Depression [...] and were consensually agreed upon. Care Teams Dietetic Assistant Relationship Specialty Start Date End Date Jose M Seth MD 200 [facility] [place] [address] PCP - General Internal Medicine 11/21/11 documented as of this encounter
--- OUTSIDE RECORDS SUMMARY | 2024-02-28 21:39 | External Medical Summary | Summary of Care ---
Author Name Unknown Organization [facility] Address [address] [place] [address] Phone [phone] Care Team Providers Care Auditing Specialist Name Role Phone Jose M Seth MD Primary Care Provider + Reason for Referral * Precert (Within 10 days (routine)) - Pending Review Specialty Diagnoses / Procedures Referred By Nelia noble Referred To Contact Radiology Diagnoses Anemia, unspecified type MGUS (monoclonal gammopathy of unknown significance) History of endometrial cancer History of breast cancer Procedures IR BIOPSY Marietta Salazar CRNP [address] [place] [address] Referral ID Status Reason Start Date Expiration Date V isits Requested Visits Authorized [id number] Pending Review 02/14/2024 999 999 Reason for Visit * Reason Onset Date Comments Outpatient Testing 02/12/2024 Advice 02/12/2024 Marietta Salazar Encounter Details Date Type Department Care Team (Late st Contact Info) Description 02/12/2024 Telephone Hematology/Oncology [facility] [place] [facility] [place] [address] Marietta Salazar CRNP [address] [place] [address] Outpatient Testing; Advice [...] as of this encounter (statuses as of 02/15/2024) Medications Medication Sig Dispensed Refills Start Date [...] needed. 100 Tab 04/15/2020 Active Saline Nasal [place] 0.65 % Nasal Solution ([place] Nasal [place]) Two sprays in each nostril as needed [...] Active Commode BedsideIndications:C hronic diastolic heart failure (HCC),[facility] current use of diuretic Bedside commode. Use [...] as of this encounter (statuses as of 02/15/2024) Active Problems Problem Noted Date Diagnosed Date [...] as of this encounter (statuses as of 02/15/2024) Resolved Problems Problem Noted Date Diagnosed Date [...] Jose M Seth MD Pharmacy: [facility] 08/09/2013 12/16/2015 Dementia 07/19/2013 2017 Encounter [...] as of this encounter (statuses as of 02/15/2024) Immunizations Name Administration Dates Next Due COVID-19 mRNA, LNP-s, No Pre serve, 2-Dose Series (Complix) 02/18/2021,08/10/2020,07/06/2020 COVID-19, MRNA-LNP, 23-24, P F, 30 [...] Telephone Encounter - Keisha Lima OSA - 02/15/2024 3:19 PM EDT Pt is scheduled and aware for 03/27 * Telephone Encounter - Garrett Saldana RN - 02/15/2024 2:34 PM EDT Spoke to Tonya- BMBx scheduled at [facility] 03/13/24. Patient was offered multiple sooner appts but declined as her daughter is going on a cruise. Dr Quiroga/ [place]: FYI Scheduling: please call patient to schedule follow up with Dr Quiroga 2-3 weeks after BMBx to review results (takes 2 weeks for this result). Patient is scheduled for a port flush 03/22- ok to offer tomove this to be same day as follow up to combine appts. Thanks! * Telephone Encounter - Garrett Saldana RN - 02/14/2024 8:17 AM EDT Called Kathy. Reviewed reason for recommendation for BMBx. Patient agreeable, denied any other questions. * Telephone Encounter - Crissy Brito OSA - 02/13/2024 5:13 PM EDT Pt of Marietta SalazarDenice Mcmanus, I have pt Kathy Mccoy is returning your call. Are you available to speak with her now? "She already returned my call today and spoke to Garrett? I am not available right now. If she has additional questions we can give her a call tomorrow"?-M.Jaky. Okay, thank you! If you can please call pt back at [phone]. If pt can't be reached please leave [...] 11:09 AM EDT Printed and faxed to [phone] per [facility] * Addendum Note - Garrett Saldana RN - 02/13/2024 10:47 AM EDTAddended by: GARRETT SALDANA on: 02/13/2024 10:47 AM Modules accepted: Orders * Telephone Encounter - Garrett Saldana RN - 02/13/2024 10:06 AM EDT Called patient. Reviewed Kim note, patient agreeable to BMBx. She would like this at [facility]. Order placed. TT sent to Tonya in [facility] IR. Scheduling: please fax order to [facility] IR. Thanks! * Telephone Encounter - Martin MariettaJA Castillo - 02/12/2024 4:32 PM EDT Results for [...] 10:45 AM EDT Office Visit General Surgery, [facility] [address] [place] [address] Vijaya Samano MD [address] [place] [address] 03/22/2024 3:00 PM EDT Immunization/Injection Hematology/Oncology Treatment, [place] [address] [place], [place] [address] Park, Chair 8 Hem Onc [address] [place] [id number] 03/27/2024 3:00 PM EDT Office Visit Hematology/Oncology [facility] [place] 200 [facility] [place] [address] Cal Quiroga MD 200 [facility] [place], [place] [phone] 04/29/2024 2:15 PM EST Office Visit Urology, [facility] 132 [facility] [address] Mendel Macedo MD [address] [place] [phone] 06/04/2024 3:40 PM EST Telemedicine Sleep Disorders Ctr [facility] 132 [facility] [phone] Charmaine Mckeon, 132 [facility] [place] [address] 06/28/2024 1:00 PM EST Office Visit General Internal Medicine [facility] [place] 200 [facility] [place] [address] Patience Berrios PA-C 200 [facility] [place] [address] 08/08/2024 3:00 PM EDT Office Visit Hematology/Oncology [facility] [place] 200 [place] [address] Marietta Salazar CRNP [address] [place] [id number] 09/13/2024 11:20 AM EDT Office Visit Nephrology, [facility] [address] [facility] [place] [address] Haresh Mark MD 200 [facility] [place] [address] 10/14/2024 2:00 PM EDT Nurse Only Ancillary [facility] Ailyn Rice 200 [facility] [place] [address] Shilpa, Nurse Annual Wellness [facility] 200 [facility] [place] [address] Scheduled Orders Name Type Priority Associated Diagnoses [...] 07/17/2020, Additional history exists HbA1c 12/14/2024 12/15/2023, 0712/2023, 07/13/2022, Additional history exists Depression Monitoring 12/31/2024 01/01/2024, 024 CKD PHOS USE SMARTSET 01567 01/30/2025 09/0 08/2023, 12/27/2023, 10/06/2021, Additional history exists CKD HGB USE SMARTSET 92036 02/08/202502/08, 02/09/2024, 01/31/2024, Additional history exists DTap/Tdap [...] and were consensually agreed upon. Care Teams Auditing Specialist Relationship Specialty Start Date End Date Jose M Seth MD 200 [place] [address] PCP - General Internal Medicine 11/21/11 documented as of this encounter
--- OUTSIDE RECORDS SUMMARY | 2024-02-28 21:39 | External Medical Summary | Summary of Care ---
Author Name Unknown Organization [facility] Address [address] [place] [address] Phone [phone] Care Team Providers Care Docketing Specialist Name Role Phone Jose M Seth MD Primary Care Provider + Reason for Referral * Precert (Within 10 days (routine)) - Pending Review Specialty Diagnoses / Procedures Referred By Nelia noble Referred To Contact Radiology Diagnoses Anemia, unspecified type MGUS (monoclonal gammopathy of unknown significance) History of endometrial cancer History of breast cancer Procedures IR BIOPSY Marietta Salazar CRNP [address] [place] [address] Referral ID Status Reason Start Date Expiration Date V isits Requested Visits Authorized [id number] Pending Review 02/14/2024 999 999 Reason for Visit * Reason Onset Date Comments Outpatient Testing 02/12/2024 Advice 02/12/2024 Marietta Salazar Encounter Details Date Type Department Care Team (Late st Contact Info) Description 02/12/2024 Telephone Hematology/Oncology [facility] [place] 200 [facility] [place] [address] Marietta Salazar CRNP [address] [place] [address] Outpatient Testing; Advice [...] needed. 100 Tab 04/15/2020 Active Saline Nasal [place] 0.65 % Nasal Solution ([place] Nasal [place]) Two sprays in each nostril as needed [...] Active Commode BedsideIndications:C hronic diastolic heart failure (HCC),senior living current use of diuretic Bedside commode. Use [...] PSG -- AHI 10.7, <89% 128 mins [facility] Returned machine Jun 2013 Nocturnal hypoxemia 06/18/2012 Overview: 2 LPM [facility] Chronic knee pain History of [...] Jose M Seth MD Pharmacy: [facility] 08/09/2013 12/16/2015 Dementia 07/19/2013 2017 Encounter [...] mRNA, LNP-s, No Pre serve, 2-Dose Series ([employer]) 02/18/2021,08/10/2020,07/06/2020 COVID-19, MRNA-LNP, 23-24, P F, 30 [...] EDT Spoke to Tonya- BMBx scheduled at [facility] 03/13/24. Patient was offered multiple sooner appts but declined as her daughter is going on a cruise. Dr Quiroga/ [place]: Scheduling: please call patient to schedule follow [...] 02/13/2024 5:13 PM EDT Pt of Marietta MartinDenice Marietta, I have pt Kathy Mccoy is returning your call. Are you available to speak with her now? "She already returned my call today and spoke to Garrett? I am not available right now. If she has additional questions we can give her a call tomorrow"?-Van Rowleyay, thank you! If you can please call pt back at [phone]. If pt can't be reached please leave [...] 11:09 AM EDT Printed and faxed to [phone] per [facility] * Addendum Note - Garrett Saldana RN - 02/13/2024 10:47 AM EDTAddended by: GARRETT SALDANA on: 02/13/2024 10:47 AM Modules accepted: Orders * Telephone Encounter - Garrett Saldana RN - 02/13/2024 10:06 AM EDT Called patient. Reviewed Kim note, patient agreeable to BMBx. She would like this at [facility]. Order placed. TT sent to Tonya in [facility] IR. Scheduling: please fax order to [facility] IR. Thanks! * Telephone Encounter - [...] Telemedicine Psychiatry Dallin Srinivasan [address] [place] [address] Zee Zapata MD [address] [place] [address] 03/19/2024 10:45 AM EDT Office Visit General Surgery, [facility] [address] [place] [address] Vijaya Samano MD 132 [place] [address] 03/22/2024 3:00 PM EDT Immunization/Injection Hematology/Oncology Treatment, [place] [address] [place] [phone] Shilpa, Chair 8 Hem Onc [address] 200 [facility] [address] 04/29/2024 2:15 PM EST [facility] 132 [place] [address] Mendel Macedo MD [address] [place] [address] 06/04/2024 3:40 PM EST Telemedicine Sleep Disorders Ctr [facility] 132 [facility] [place] [phone] Charmaine Mckeon, 132 [place] [address] 06/28/2024 1:00 PM EST Office Visit General Internal Medicine [facility] 200 [facility] [place] [address] Patience Berrios PA-C 200 [facility] [place] [address] 08/08/2024 3:00 PM EDT Office Visit Hematology/Oncology [facility] 200 [facility] [place] [address] Marietta Salazar CRNP 400 [facility] [place] [id number] 09/13/2024 11:20 AM EDT Office Visit Nephrology, [facility] 200 [facility] [place] [address] Haresh Mark MD 200 [facility] [place] [address] 10/14/2024 2:00 PM EDT Nurse Only Ancillary [facility] [place] 200 [facility] [place] [address] Shilpa Nurse Annual Wellness [address] [place] [address] Scheduled Orders Name Type Priority Associated Diagnoses [...] 12/31/2024 01/01/2024, 024 CKD PHOS USE SMARTSET 64108 01/30/2025 09/0 08/2023, 12/27/2023, 10/06/2021, Additional history exists CKD HGB USE SMARTSET 44551 02/08/202502/08, 02/09/2024, 01/31/2024, Additional history exists DTap/Tdap [...] and were consensually agreed upon. Care Teams Docketing Specialist Relationship Specialty Start Date End Date Jose M Seth MD 200 [place] [address] PCP - General Internal Medicine 11/21/11 documented as of this encounter
--- OUTSIDE RECORDS SUMMARY | 2024-02-28 21:39 | External Medical Summary | Summary of Care ---
Author Name Unknown Organization [facility] Address [address] [place] [address] Phone [phone] Care Team Providers Care Arbor Press Operator Name Role Phone Jose M Seth MD Primary Care Provider + Reason for Referral * Precert (Within 10 days (routine)) - Pending Review Specialty Diagnoses / Procedures Referred By Nelia noble Referred To Contact Radiology Diagnoses Anemia, unspecified type MGUS (monoclonal gammopathy of unknown significance) History of endometrial cancer History of breast cancer Procedures IR BIOPSY Marietta Salazar CRNP [address] [place] [address] Referral ID Status Reason Start Date Expiration Date V isits Requested Visits Authorized [id number] Pending Review 02/14/2024 999 999 Reason for Visit * Reason Onset Date Comments Outpatient Testing 02/12/2024 Advice 02/12/2024 Marietta Salazar Encounter Details Date Type Department Care Team (Late st Contact Info) Description 02/12/2024 Telephone Hematology/Oncology Brian [place] 200 [facility] [place] [address] Marietta Salazar CRNP [address] [place] [address] Outpatient Testing; Advice [...] needed. 100 Tab 04/15/2020 Active Saline Nasal [place] 0.65 % Nasal Solution ([place] Nasal [place]) Two sprays in each nostril as [...] mRNA, LNP-s, No Pre serve, 2-Dose Series ([employer]) 02/18/2021,08/10/2020,07/06/2020 COVID-19, MRNA-LNP, 23-24, P F, 30 [...] encounter Miscellaneous Notes * Telephone Encounter - Crissy Brito OSA - 02/13/2024 5:13 PM EDT Pt of Marietta Mcmanus, I have pt Kathy Wang Nadine is returning your call. Are you available to speak with her now? "She already returned my call today and spoke to Garrett? I am not available right now. If she has additional questions we can give her a call tomorrow"?-M.T. Okay, thank you! If you can please call pt back at [phone]. If pt can't be reached please leave a detailed message for pt because she wants to understand what she is doing. All she knows if luciane is having a Bone Biopsy. Thank you! Can you put this in a telephone encounter please and route it to me and the oncology nurse pool robert dwayne. I am off tomorrow but the nurse who spoke with her is here again tomorrow. * Telephone Encounter - Keisha Lima OSA - 02/13/2024 11:09 AM EDT Printed and faxed to [phone] per [facility] * Addendum Note - Garrett Saldana RN - 02/13/2024 10:47 AM EDTAddended by: GARRETT SALDANA on: 02/13/2024 10:47 AM Modules accepted: Orders * Telephone Encounter - Garrett Saldana RN - 02/13/2024 10:06 AM EDT Called patient. Reviewed Kim note, patient agreeable to BMBx. She would like this at [facility]. Order placed. TT sent to Tonya in [facility] IR. Scheduling: please fax order to [facility]. Thanks! * Telephone Encounter - Marietta [...] Description 03/14/2024 1:30 PM EDT Telemedicine Psychiatry Mandi LnDallin [address] [place] [phone] Zee Zapata MD [address] [place] [address] 03/22/2024 3:00 PM EDT Immunization/Injection Hematology/Oncology Treatment, [place] 200 [place] [address] Dwayne, Chair 8 Hem Onc [address] [address] 04/29/2024 2:15 PM EST Office Visit Urology, [facility] 132 [place] [address] Mendel Macedo MD [address] [place] [address] 06/04/2024 3:40 PM EST Telemedicine Sleep Disorders Ctr [facility] 132 [facility] [phone] Charmaine Mckeon, 132 [place] [address] 06/28/2024 1:00 PM EST Office Visit General Internal Medicine [facility] 200 [facility] [place] [address] Patience Berrios PA-C 200 [facility] [address] 08/08/2024 3:00 PM EDT Office Visit Hematology/Oncology [facility] 200 [facility] [place] [address] Marietta Salazar CRNP 400 [facility] [place] [address] 09/13/2024 11:20 AM EDT Office Visit Nephrology, [facility] [address] [facility] [address] [place], [place] [address] Haresh Mark MD 200 [facility] [place] [address] 10/14/2024 2:00 PM EDT Nurse Only Ancillary [facility] State Ailyn Massey 200 [facility] [place] [address] Dwayne, Nurse Annual Wellness [facility] 200 [facility] [place] [address] Scheduled Orders Name Type Priority Associated Diagnoses [...] 12/14/2024 12/15/2023, 12/2023, 07/13/2022, Additional history exists Depression Monitoring 12/31/2024 01/01/2024, 024 CKD PHOS USE SMARTSET 72631 01/30/2025 09/0 08/2023, 12/27/2023, 10/06/2021, Additional history exists CKD HGB USE SMARTSET 02660 02/08/202502/08, 02/09/2024, 01/31/2024, Additional history exists DTap/Tdap [...] and were consensually agreed upon. Care Teams Arbor Press Operator Relationship Specialty Start Date End Date Jose M Seth MD 200 [facility] [place] [address] PCP - General Internal Medicine 11/21/11 documented as of this encounter
--- OUTSIDE RECORDS SUMMARY | 2024-02-28 21:39 | External Medical Summary | Summary of Care ---
Author Name Unknown Organization [facility] Address [address] [place] [address] Phone [phone] Care Team Providers Care Underwriting Support Manager Name Role Phone Jose M Seth MD Primary Care Provider + Reason for Visit * Reason Onset Date Comments Referral 02/09/2024 Encounter Details Date Type Department Care Team (Late st Contact Info) Description 02/09/2024 Telephone General Surgery, [place] [address], [place] [phone] Services, [facility] [address] [place] [address] Referral Allergies Active Allergy Reactions Criticality Noted Date [...] needed. 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 Use [...] Diagnosed Date Resolved Date Uncomplicated asthma 11/15/2022 07/ 024 Overview: More specified on pl Food [...] 10/15/13 PCP: Jose M Seth MD [facility] 08/09/2013 12/16/2015 Dementia 07/19/2013 2017 Encounter for [...] mRNA, LNP-s, No Pre serve, 2-Dose Series (G[employer]Vaani) 02/18/2021,08/10/2020,07/06/2020 COVID-19, MRNA-LNP, 23-24, P F, 30 MCG/0.3 mL, 12 YRS AND ABOVE, IM (Placeword-ComirNaPopravku) 04/11/2023 Covid-19, Mrna, Lnp-s, Pf, B ivalent, [...] Telephone Encounter - Michael Meza OSA - 02/14/2024 9:37 AM EDT I spoke to patient and scheduled for March 19. Patient is aware. * Telephone Encounter - Michael Meza OSA - 02/09/2024 3:50 PM EDT LMOM * Telephone Encounter - Phuong uTrk LPN - 02/09/2024 3:42 PM EDT Referral from: Ming PERES Consult: General Surgery, Dr. Samano For: mediport removal Referral received as detailed above. Will notify dept of referral. Sherry Turk LPN Intake Nurse Navigator General Surgery and Breast Clinic [facility] documented in this encounter Plan of Treatment Upcoming Encounters Date Type Department Care Team (Late st Contact Info) Description 03/14/2024 1:30 PM EDT Telemedicine Psychiatry Dallin Srinivasan [address] [place] [address] Zee Zapata MD [address] [place] [address] 03/19/2024 10:45 AM EDT Office Visit General Surgery, [facility] 132 [facility] [place] [address] Vijaya Samano MD 132 [facility] [place] [address] 03/22/2024 3:00 PM EDT Immunization/Injection Hematology/Oncology Treatment, [place] [address] [facility] [address] [place] [address] Shilpa, Chair 8 Hem On[address] [place] [address] 04/29/2024 2:15 PM EST Office Visit Urology, [facility] 132 [facility] [place] [address] Mendel Macedo MD 27 [facility] [place] [id number] 06/04/2024 3:40 PM EST Telemedicine [facility] Disorders Ctr [facility] 132 [facility] [place] [phone] Charmaine Mckeon, 132 [facility] [place] [address] 06/28/2024 1:00 PM EST Office Visit General Internal Medicine [facility] 200 [facility] [place] [address] Patience Berrios PA-C 200 [facility] [place] [address] 08/08/2024 3:00 PM EDT Office Visit Hematology/Oncology [facility] 200 [facility] [place] [address] Mari[place] Salazar CRNP 400 [facility] [place] [address] 09/13/2024 11:20 AM EDT Office Visit Nephrology, [facility] [address] [facility] [address] [place], [place] [address] Haresh Mark MD 200 [facility] [place] [address] 10/14/2024 2:00 PM EDT Nurse Only Ancillary [facility] State Ailyn Massey 200 [facility] [place] [address] Sihlpa, Nurse Annual Wellness [facility] 200 [facility] [place] [address] Health Maintenance Due Date Last Done Comments [...] 12/31/2024 01/01/2024, 024 CKD PHOS USE SMARTSET 03119 01/30/2025 09/0 08/2023, 12/27/2023, 10/06/2021, Additional history exists CKD HGB USE SMARTSET 68301 02/08/202502/08, 02/09/2024, 01/31/2024, Additional history exists DTap/Tdap [...] and were consensually agreed upon. Care Teams Underwriting Support Manager Relationship Specialty Start Date End Date Jose M Seth MD 200 [place] [address] PCP - General Internal Medicine 11/21/11 documented as of this encounter
--- OUTSIDE RECORDS SUMMARY | 2024-02-28 21:39 | External Medical Summary | Summary of Care ---
Author Name Unknown Organization [facility] Address [address] [place] [address] Phone [phone] Care Team Providers Care Mosquito Sprayer Name Role Phone Jose M Seth MD Primary Care Provider + Reason for Visit * Reason Onset Date Comments Med Request 02/23/2024 Encounter Details Date Type Department Care Team (Late st Contact Info) Description 02/23/2024 Telephone Psychiatry [place] [address] [place] [address] Zee Zapata MD 9 [place] [address] Med Request Allergies Active Allergy Reactions Criticality Noted Date [...] as of this encounter (statuses as of 02/26/2024) Medications Medication Sig Dispensed Refills Start Date [...] needed. 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 30 Capsule 4 Active LORazepam 0.5 MG Oral Tablet (Ativan)Indications :PETER (generalized anxiety disorder) Take 1 Tablet by mouth daily as needed for Anxiety. 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 30 Capsule 2 4 02/26/20 24 Discontinu ed(Refill) LORazepam 0.5 MG Oral Tablet (Ativan)Indications :PETER (generalized anxiety disorder) Take 1 Tablet by mouth daily as needed for Anxiety. 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 90 Tablet 4 02/23/20 24 Discontinu ed(Refill) documented as of this encounter (statuses as of 02/26/2024) Active Problems Problem Noted Date Diagnosed Date [...] as of this encounter (statuses as of 02/26/2024) Resolved Problems Problem Noted Date Diagnosed Date [...] AGREEMENT 11/12/201302/2019 Overview: Patient signed 10/15/13 PCP: Jsoe M Seth MD [facility] 12/16/2015 Dementia 07/19/2013 2017 Encounter for [...] as of this encounter (statuses as of 02/26/2024) Immunizations Name Administration Dates Next Due COVID-19 mRNA, LNP-s, No Pre serve, 2-Dose Series ([employer]) 02/18/2021,08/10/2020,07/06/2020 COVID-19, MRNA-LNP, 23-24, P F, 30 MCG/0.3 mL, 12 YRS AND ABOVE, IM (Clipcopia-Comirnat) 04/11/2023 Covid-19, Mrna, Lnp-s, Pf, B ivalent, [...] encounter Miscellaneous Notes * Telephone Encounter - Addie Pinto LPN - 02/23/2024 1:44 PM EDT Refill request from patient ([facility]) for Depakote. Medication last filled on 01/24/2024 with 0 refills. Patient last seen on 12/25/2023 with return appointment scheduled for 03/14/2024. Patient had 0 cancelled appointments and 1 NO SHOW appointments. * Telephone Encounter - Jacquie Álvarez OSA - 02/23/2024 1:16 PM EDT Patient Requesting Refill Prescribing Provider:Jodi Haynes tx Medication:FLUoxetine HCl 20 MG and Divalproex Sodium ER 250 MG Pharmacy:[address] Last Visit Date:12/25/23 Future Visit Date:03/14/24 documented in this encounter Plan of Treatment Upcoming Encounters Date Type Department Care Team (Late st Contact Info) Description 02/27/2024 11:40 AM EDT Office Visit General Internal Medicine [facility] [place] 200 [facility] [place] [address] Eddie Johnson DO [address] [place] [address] 03/14/2024 1:30 PM EDT Telemedicine Psychiatry [place] 9 [place] [address] Zee Zapata MD 9 [place] [address] 03/19/2024 10:45 AM EDT Office Visit General Surgery, [facility] 132 [facility] [place] [address] Vijaya Samano MD 132 [facility] [place] [address] 03/22/2024 3:00 PM EDT Immunization/Injection Hematology/Oncology Treatment, [place] [facility] [phone] Shilpa, Chair 8 Hem Onc [address] [place] [address] 03/27/2024 3:00 PM EDT Office Visit Hematology/Oncology [facility] [place] 200 [facility] [place] [phone] Cal Quiroga MD 200 [facility] [place] [address] 04/29/2024 2:15 PM EST Office Visit Urology, [facility] 132 [facility] [place] [address] Mendel Macedo MD [address] [place] [address] 06/04/2024 3:40 PM EST Telemedicine Sleep Disorders Ctr [facility] 132 [facility] [place] [phone] Charmaine Mckeon, DO [address] [facility] [place] [address] 06/28/2024 1:00 PM EST Office Visit General Internal Medicine [facility] [place] [address] Patience Berrios PA-C 200 [facility] [place] [address] 08/08/2024 3:00 PM EDT Office Visit Hematology/Oncology [facility] [place] [address] [place] [place] [address] Marietta Salazar CRNP 400 [facility] [place] [id number] 09/13/2024 11:20 AM EDT Office Visit Nephrology, [facility] [address] [address] Haresh Mark MD 200 [facility] [place] [address] 10/14/2024 2:00 PM EDT Nurse Only Ancillary [facility] [place] [address] [place] [address] [address] Shilpa Nurse Annual Wellness [place] [address] [address] [place] [address] Health Maintenance Due Date Last Done Comments COVID-19 Vaccine ( season) 2024 04/11/2023, 03/22/2022, 02/18/2021, Additional history exists GFR 07/30/2024 01/31/2024, 11/28, 12/15/2023, Additional history exists DXA Scan 09/20/2024 09/20/2021, 08/28, 10/23/2013, Additional history exists Adult Wellness Visit 10/08/2024 10/09/2023, 10/06/2022, 08/20/2021 Albumin/Creatinine Ratio 12/14/2024 024, 10/18/2022, 07/17/2020, Additional history exists HbA1c 12/14/2024 12/15/2023, 12/2023, 07/13/2022, Additional history exists CKD PHOS USE SMARTSET 34533 01/30/2025 090 08/2023, 12/27/2023, 10/06/2021, Additional history exists CKD HGB USE SMARTSET 68512 02/08/202502/08, 02/09/2024, 01/31/2024, Additional history exists Depression [...] Diagnoses Diagnosis 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 Care Teams Mosquito Sprayer Relationship Specialty Start Date End Date Jose M Seth MD 200 [facility], [place] [phone] PCP - General Internal Medicine 11/21/11 documented as of this encounter
--- OUTSIDE RECORDS SUMMARY | 2024-02-28 21:40 | External Medical Summary ---
Author Name Unknown Address Unknown Organization K01:[facility] [address] [place] [address] Laboratory Report Ordering Provider Test Date Status BRITTANY MONCADA 02/09/2024 15:50:11 Final Observation Date Value Abnormality Reference (Units ) Status Retic, % (auto) 02/09/2024 15:50:11 1.81 0.80-1.90 (%) Final Reticulocytes, Absolute 02/09/2024 15:50:11 50.9 31.3-100.1 (K/uL) Final Reticulocyte fraction, immature 02/09/2024 15:50:11 12.8 2.5-20.6 (%) Final Reticulocyte HGB 02/09/2024 15:50:11 33.7 29.7-37.4 (pg) Final Performing Location LABORATORY C - [address] [place] [address]
--- OUTSIDE RECORDS SUMMARY | 2024-02-28 21:40 | External Medical Summary | Summary of Care ---
Author Name Unknown Organization [facility] Address [address] [place] [address] Phone [phone] Care Team Providers Care Flight Crew Ordnanceman Name Role Phone Jose M Seth MD Primary Care Provider + Reason for Visit * Reason Onset Date Comments Outpatient Testing 02/12/2024 Encounter Details Date Type Department Care Team (Late st Contact Info) Description 02/12/2024 Telephone Hematology/Oncology [facility] [address] [place] [address] Marietta Salazar CRNP 400 [place] [address] Outpatient Testing Allergies Active Allergy Reactions [...] as of this encounter (statuses as of 02/12/2024) Medications Medication Sig Dispensed Refills Start Date [...] needed. 100 Tab 04/15/2020 Active Saline Nasal [place] 0.65 % Nasal Solution ([place] Nasal [place]) Two sprays in each nostril as needed [...] Active Commode BedsideIndications:C hronic diastolic heart failure (HCC),correction current use of diuretic Bedside commode. Use [...] as of this encounter (statuses as of 02/12/2024) Active Problems Problem Noted Date Diagnosed Date [...] PSG -- AHI 10.7, <89% 128 mins [facility] Returned machine Jun 2013 Nocturnal hypoxemia 06/18/2012 Overview: 2 LPM [facility] 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 documented as of this encounter (statuses as of 02/12/2024) Resolved Problems Problem Noted Date Diagnosed Date [...] 10/15/13 PCP: Jose M Seth MD Pharmacy: [facility] 08/09/2013 12/16/2015 Dementia 07/19/2013 2017 [...] as of this encounter (statuses as of 02/12/2024) Immunizations Name Administration Dates Next Due COVID-19 mRNA, LNP-s, No Pre serve, 2-Dose Series ([employer]) 02/18/2021,08/10/2020,07/06/2020 COVID-19, MRNA-LNP, 23-24, P F, 30 MCG/0.3 mL, 12 YRS AND ABOVE, IM (DataSift-Comirnattomoguides) 04/11/2023 Covid-19, Mrna, Lnp-s, Pf, B ivalent, [...] Miscellaneous Notes * Telephone Encounter - Marietta SalazarJA toledo - 02/12/2024 4:32 PM EDT Results for [...] Telemedicine Psychiatry [place] Srinivasan [address] [place] [address] Zee Zapata MD [address] [place] [address] 03/22/2024 3:00 PM EDT Immunization/Injection Hematology/Oncology Treatment, [place] [address] [place] [address] Shilpa, Chair 8 Hem Onc [facility] [address] 04/29/2024 2:15 PM EST Office Visit Urology, [facility] 132 [facility] [place] [address] Mendel Macedo MD 27 [place] [address] 06/04/2024 3:40 PM EST Telemedicine Sleep Disorders Ctr Sinan Alvarez [place] [address] [place] [phone] Charmaine Mckeon, [address] [place] [address] 06/28/2024 1:00 PM EST Office Visit General Internal Medicine [facility] Shilpa [place] [address] [place] [address] [address] Patience Berrios PA-C 200 [facility] [place] [address] 08/08/2024 3:00 PM EDT Office Visit Hematology/Oncology [facility] Shilpa [place] [address] [place] [place] [address] Marietta Salazar CRNP 400 [facility] [place] [address] 09/13/2024 11:20 AM EDT Office Visit Nephrology, [facility] [place] [address] [address] Haresh Mark MD 200 [facility] [place] [address] 10/14/2024 2:00 PM EDT Nurse Only Ancillary [facility] [place] [address] [place] [address] [address] Shilpa Nurse Annual Wellness [place] [address] [address] [address] Health Maintenance Due Date Last Done Comments COVID-19 Vaccine ( season) 2024 04/11/2023, 03/22/2022, 02/18/2021, Additional history exists GFR 07/30/2024 01/31/2024, 11/28, 12/15/2023, Additional history exists DXA Scan 09/20/2024 09/20/2021, 2 09/2021, 10/23/2013, Additional history exists Adult Wellness Visit 10/08/2024 10/09/2023, 10/06/2022, 08/20/2021 Albumin/Creatinine Ratio 12/14/2024 024, 10/18/2022, 07/17/2020, Additional history exists HbA1c 12/14/2024 12/15/2023, 070 12/2023, 07/13/2022, Additional history exists Depression Monitoring 12/31/2024 01/01/2024, 024 CKD PHOS USE SMARTSET 42295 01/30/2025 09/0 08/2023, 12/27/2023, 10/06/2021, Additional history exists CKD HGB USE SMARTSET 08657 02/08/202502/08, 02/09/2024, 01/31/2024, Additional history exists DTap/Tdap [...] and were consensually agreed upon. Care Teams Flight Crew Ordnanceman Relationship Specialty Start Date End Date Jose M Seth MD 200 [place] [address] PCP - General Internal Medicine 11/21/11 documented as of this encounter
--- OUTSIDE RECORDS SUMMARY | 2024-02-28 21:40 | External Medical Summary | Summary of Care ---
Author Name Unknown Organization [facility] Address [address] [place] [address] Phone [phone] Care Team Providers Care Coupon Collection Clerk Name Role Phone Jose M Seth MD Primary Care Provider + Reason for Visit * Reason Onset Date Comments Medication Administration 02/09/2024 Flu an d/or Pneumo Inj Encounter Details Date Type Department Care Team (Late st Contact Info) Description 02/09/2024 12:20 PM EDT Immunization Ancillary [facility] 200 [place] [address] Sp, [facility] 200 [place] [address] Need for prophylactic vaccination and inoculation against influenza* Allergies Active Allergy Reactions Criticality Noted Date [...] as of this encounter (statuses as of 02/09/2024) Medications Medication Sig Dispensed Refills Start Date [...] needed. 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 Use [...] as of this encounter (statuses as of 02/09/2024) Active Problems Problem Noted Date Diagnosed Date [...] as of this encounter (statuses as of 02/09/2024) Resolved Problems Problem Noted Date Diagnosed Date [...] as of this encounter (statuses as of 02/09/2024) Immunizations Name Administration Dates Next Due COVID-19 mRNA, LNP-s, No Pre serve, 2-Dose Series ([employer]) 02/18/2021,08/10/2020,07/06/2020 COVID-19, MRNA-LNP, 23-24, P F, 30 MCG/0.3 mL, 12 YRS AND ABOVE, IM ([facility]) 04/11/2023 Covid-19, Mrna, Lnp-s, Pf, B ivalent, [...] on file documented as of this encounter Patient Instructions * Patient Instructions* Marixa Krueger MED ASSIST - 02/09/2024 12:08 PM EDT ~~PATIENT INSTRUCTIONS FOR FLU SHOT~~ Possible side effects of influenza vaccine, (flu shot), are usually mild and include: 1. Soreness or redness at injection site 2. Low grade fever 3. Body aches You may use Tylenol/Acetaminophen as needed for these symptoms. LET YOUR DOCTOR KNOW IMMEDIATELY IF YOU HAVE DIFFICULTY BREATHING OR SWALLOWING, EXPERIENCE ITCHINGOF FEET OR HANDS, HAVE SWELLING OF EYES, FACE OR INSIDE OF NOSE. documented in this encounter Progress Notes * Marixa Krueger MED ASSIST - 02/09/2024 12:08 PM EDT PRE - ADMINISTRATION DOCUMENTATION Are you experiencing any cold symptoms or fever? No Have you had Guillain-Dallas Syndrome (an illness that causes paralysis) within the last 6 weeks? No Have you had the flu shot in the past? YES Have you ever had a reaction to the flu shot? No LUDA Martinez, 02/09/2024 12:08 PM Immunization Administration Documentation Time Out Procedure Performed: Yes Patient Identified (Ask Name/Date of ): Yes Does the patient have a fever greater than 101 degrees today? No Patient allergic to latex? No VFC Stock: No Immunization(s) verified: Yes, Immunization Name: Flu, VIS Sheet(s) given: Yes Verified Side and Site: Yes Verified Shot(s) with Parent(s)/Patient: Yes documented in this encounter Plan of Treatment Upcoming Encounters Date Type Department Care Team (Late st Contact Info) Description 02/09/2024 3:00 PM EDT Office Visit Hematology/Oncology [address] [place] [address] Marietta Salazar CRNP 400 [facility] [place] [address] 02/09/2024 3:30 PM EDT Nurse Only Hematology/Oncology Treatment, [address] [address] Shilpa, Chair 10 Hem Onc [address] [place] [address] 03/14/2024 1:30 PM EDT Telemedicine Psychiatry [place] [address] [place] [address] Zee Zapata MD [address] [place] [address] 04/29/2024 2:15 PM EST Office Visit Urology, [facility] 132 [facility] [place] [address] Mendel Macedo MD 27 [place] [address] 06/04/2024 3:40 PM EST Telemedicine Sleep Disorders Ctr [facility] 132 [facility] [place] [phone] Charmaine Mckeon DO 132 [facility] [place] [address] 06/28/2024 1:00 PM EST Office Visit General Internal Medicine [address] [place] [address] Patience Berrios PA-C 200 [facility] [place], [place] [address] 09/13/2024 11:20 AM EDT Office Visit Nephrology, [facility] [address] [facility] [address] [place], [place] [address] Haresh Mark MD 200 [facility] [place], [place] [address] 10/14/2024 2:00 PM EDT Nurse Only Ancillary [facility] [place] [address] [facility] [address] [place], [place] [address] Shilpa Nurse Annual Wellness [facility] 200 [facility] [place], [place] [address] Health Maintenance Due Date Last Done Comments [...] exists Depression Monitoring 12/31/2024 01/01/2024, 024 CKD HGB USE SMARTSET 73414 01/30/202501/30, 01/31/2024, 12/15/2023, Additional history exists CKD PHOS USE SMARTSET 89532 01/30/2025 09/0 08/2023, 12/27/2023, 10/06/2021, Additional history exists DTap/Tdap Vaccines (3 - [...] as of this encounter Visit Diagnoses Diagnosis Need for prophylactic vaccination and inoculation against influenza- Primary documented in this encounter Advance Directives * Full Code (Latest Code Status on File) Date Activated Date Inactivated Comments 09/24/2012 8:15 PM 10/02/2012 7:35 PM This order re flects the patients wishes and were consensually agreed upon. Care Teams Coupon Collection Clerk Relationship Specialty Start Date End Date Jose M Seth MD 200 [facility] [place] [place] [address] PCP - General Internal Medicine 11/21/11 documented as of this encounter
--- OUTSIDE RECORDS SUMMARY | 2024-02-28 21:40 | External Medical Summary ---
Author Name Unknown Address Unknown Organization : Laboratory Report Ordering Provider Test Date Status BRITTANY MONCADA 02/09/2024 15:50:11 Final Observation Date Value Abnormality Reference (Units ) Status ERYTHROPOIETIN (EPO) 02/09/2024 15:50:11 18.9 Above high normal 2.6-18.5 (mIU/mL) Final
Test Performed at:
[facility]
[address] [facility]
[place] [address]
Jv Sharma M.D., Ph.D.,Director of Laboratories Performing Location
--- OUTSIDE RECORDS SUMMARY | 2024-02-28 21:40 | External Medical Summary ---
Author Name Unknown Address Unknown Organization K01:[facility] [place] [address] [facility] [address] Laboratory Report Ordering Provider Test Date Status BRITTANY MONCADA 02/09/2024 15:50:11 Final Observation Date Value Abnormality Reference (Units ) Status WBC, Total 02/09/2024 15:50:11 2.89 Below low normal 4.00-10.80 (K/uL) Final RBC 02/09/2024 15:50:11 2.81 3.85-5.15 (M/uL) Final Hemoglobin 02/09/2024 15:50:11 8.8 Below low normal 12.0-15.3 (g/dL) Final HCT 02/09/2024 15:50:11 27.2 Below low normal 36.0-45.2 (%) Final MCV 02/09/2024 15:50:11 96.8 81.5-97.5 (fL) Final MCH 02/09/2024 15:50:11 31.3 27.0-34.0 (pg) Final MCHC 02/09/2024 15:50:11 32.4 32.0-36.0 (g/dL) Final RDW 02/09/2024 15:50:11 15.2 11.5-15.5 (%) Final Platelets 02/09/2024 15:50:11 151 140-400 (K/uL) Final MPV 02/09/2024 15:50:11 11.7 6.6-11.1 (fL) Final Nucleated erythrocytes/100 leukocytes [Ratio] in Blood by Automated count 02/09/2024 15:50:11 0 <=0 (/100 WBCs) Final Performing Location [facility] [place] [address] [facility] [address] [facility] [address]
--- OUTSIDE RECORDS SUMMARY | 2024-02-28 21:40 | External Medical Summary | Summary of Care ---
Author Name Unknown Organization [facility] Address [address] [place] [address] Phone [phone] Care Team Providers Care Freight Service Inspector Name Role Phone Jose M Seth MD Primary Care Provider + Reason for Visit * Reason Onset Date Comments Referral 02/09/2024 Encounter Details Date Type Department Care Team (Late st Contact Info) Description 02/09/2024 Telephone General Surgery, [place] [address], [place] [id number] Services, [facility] [address] [place] [address] Referral Allergies Active Allergy Reactions Criticality Noted [...] needed. 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 Use [...] PSG -- AHI 10.7, <89% 128 mins [facility] Returned machine Jun 2013 Nocturnal hypoxemia 06/18/2012 Overview: 2 LPM [facility] Chronic knee pain History [...] 10/15/13 PCP: Jose M Seth MD [facility] 08/09/2013 12/16/2015 Dementia 07/19/2013 2017 [...] mRNA, LNP-s, No Pre serve, 2-Dose Series ([employer]) 02/18/2021,08/10/2020,07/06/2020 COVID-19, MRNA-LNP, 23-24, P F, 30 MCG/0.3 mL, 12 YRS AND ABOVE, IM ([employer]) 04/11/2023 Covid-19, Mrna, Lnp-s, Pf, B ivalent, [...] EDT LMOM * Telephone Encounter - Phuong Turk LPN - 02/09/2024 3:42 PM EDT Referral from: Ming PERES Consult: General Surgery, Dr. Samano For: mediport removal Referral received as detailed above. Will notify dept of referral. Sherry Turk LPN Intake Nurse Navigator General Surgery and Breast Clinic [facility] documented in this encounter Plan of Treatment Upcoming Encounters Date Type Department Care Team (Late st Contact Info) Description 03/14/2024 1:30 PM EDT Telemedicine Psychiatry Dallin Srinivasan [address] [place] [phone] Zee Zapata MD [address] [place] [address] 03/22/2024 3:00 PM EDT Immunization/Injection Hematology/Oncology Treatment, [place] [address] [place] [address] Shilpa, Chair 8 Hem Onc [place] [address] [place] [address] 04/29/2024 2:15 PM EST Office Visit Urology, [facility] 132 [facility] [place] [address] Mendel Macedo MD [address] [place] [address] 06/04/2024 3:40 PM EST Telemedicine Sleep Disorders Ctr [facility] 132 [facility] [place] [phone] Charmaine Mckeon DO 132 [facility] [place] [address] 06/28/2024 1:00 PM EST Office Visit General Internal Medicine [facility] [place] [address] [place] [address] Patience Berrios PA-C [facility] [place] [address] 08/08/2024 3:00 PM EDT Office Visit Hematology/Oncology [facility] Shilpa [place] [address] [place] [address] Marietta Salazar CRNP 400 [facility] [place] [address] 09/13/2024 11:20 AM EDT Office Visit Nephrology, [facility] [address] [address] Haresh Mark MD [address] [place] [address] [address] 10/14/2024 2:00 PM EDT Nurse Only Ancillary [facility] Shilpa [place] [address] [address] Shilpa Nurse Annual Wellness [place] [address] [address] Health Maintenance Due Date Last Done Comments COVID-19 Vaccine (2023- season) 2024 04/11/2023, 03/22/2022, 02/18/2021, Additional history exists GFR 07/30/2024 01/31/2024, 11/28, 12/15/2023, Additional history exists DXA Scan 09/20/2024 09/20/2021, 08/28, 10/23/2013, Additional history exists Adult Wellness Visit 10/08/2024 10/09/2023, 10/06/2022, 08/20/2021 Albumin/Creatinine Ratio 12/14/2024 024, 10/18/2022, 07/17/2020, Additional history exists HbA1c 12/14/2024 12/15/2023, 070 12/2023, 07/13/2022, Additional history exists Depression Monitoring 12/31/2024 01/01/2024, 024 CKD HGB USE SMARTSET 49587 01/30/202501/30, 01/31/2024, 12/15/2023, Additional history exists CKD PHOS USE SMARTSET 14276 01/30/2025 09/0 08/2023, 12/27/2023, 10/06/2021, Additional history [...] and were consensually agreed upon. Care Teams Freight Service Inspector Relationship Specialty Start Date End Date Jose M Seth MD [address] [place] [address] PCP - General Internal Medicine 11/21/11 documented as of this encounter
--- OUTSIDE RECORDS SUMMARY | 2024-02-28 21:40 | External Medical Summary | Summary of Care ---
Author Name Unknown Organization [facility] Address [address] [place] [address] Phone [phone] Care Team Providers Care Yard Clerk Name Role Phone Jose M Seth MD Primary Care Provider + Reason for Visit * Reason Comments Procedure Port flush/lab draw Encounter Details Date Type Department Care Team (Late st Contact Info) Description 02/09/2024 3:30 PM EDT Nurse Only Hematology/Oncology Treatment, [place] [address] [place] [address] Shilpa, Chair 10 Hem Onc [facility] [address] [place] [address] Procedure (Port flush/lab draw) Allergies Active Allergy Reactions Criticality Noted Date [...] needed. 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 Use [...] M Seth MD Pharmacy: [facility] 08/09/2013 12/16/2015 Dementia 07/19/2013 2017 Encounter [...] mRNA, LNP-s, No Pre serve, 2-Dose Series ([employer]) 02/18/2021,08/10/2020,07/06/2020 COVID-19, MRNA-LNP, 23-24, P F, 30 MCG/0.3 mL, 12 YRS AND ABOVE, IM ([employer]) 04/11/2023 Covid-19, Mrna, Lnp-s, Pf, B ivalent, [...] of this encounter Nursing Notes * Pamela Driscoll RN - 02/09/2024 4:20 PM EDT Patient to chair 11 ambulatory Patient voices no complaints or concerns Safety and Risk for Injury Patient will remain free from injury. Ensure appropriate safety devices are available. Provide and maintain safe environment. Patient instructed on use of heat and massage functions where applicable. Patient shown how to operate the heat function of the chair and to alert nursing staff if the chair feels too warm. Patient instructed on the risk of potential willis while using the heat function. Goals: patient will remain free of injury Possible barriers to meeting goals: Stability of the patient: Moderately stable - low risk of patient condition declining or worsening Summary regarding today's goals: Met: patient remained free of injury VAD (Venous Access Device) accessed with #20G 3/4" without difficulty. Flushed easy, positive bloodreturn, lab obtained as ordered. VAD flushed with 10 ml NSS and Heparin 5 ml (100 units/ml). Pierce needle removed intact. Patient discharged in good condition, tolerated well documented in this encounter Plan of Treatment Upcoming Encounters Date Type Department Care Team (Late st Contact Info) Description 03/14/2024 1:30 PM EDT Telemedicine Psychiatry Dallin Srinivasan [address] [place] [phone] Zee Zapata MD [address] [place] [phone] 03/22/2024 3:00 PM EDT Immunization/Injection Hematology/Oncology Treatment, [place] [address] [facility] [address] [address] [place], [place] [address] Shilpa, Chair 8 Hem Onc [address] [place] [address] 04/29/2024 2:15 PM EST Office Visit [facility], [facility] 132 [facility] [place] [address] Mendel Macedo MD [address] [place] [id number] 06/04/2024 3:40 PM EST Telemedicine Sleep Disorders Ctr [facility] [place] 132 [facility] [place] [phone] Charmaine Mckeon DO 132 [facility] [address] 06/28/2024 1:00 PM EST Office Visit General Internal Medicine [facility] [place] 200 [facility] [place] [address] Patience Berrios PA-C 200 [place] [address] 08/08/2024 3:00 PM EDT Office Visit Hematology/Oncology [facility] [place] 200 [facility] [place] [address] Marietta Salazar CRNP 400 [facility] [place] [address] 09/13/2024 11:20 AM EDT Office Visit Nephrology, [facility] [place] [address] [address] Haresh Mark MD [address] [place] [address] 10/14/2024 2:00 PM EDT Nurse Only Ancillary [place]enery State Ailyn Massey [address] [place] [address] Shilpa Nurse Annual Wellness Scen[place] [address] [place] [address] Pending Results Name Type Priority Associated Diagnoses Date /Time CBC WITH WBC DIFFERENTIAL Lab Routine Anemia, unspecified type 02/09/2024 3:50 PM EDT RETICULOCYTE PANEL Lab Routine Anemia, unspecified type 02/09/2024 3:50 PM EDT LD Lab Routine Anemia, unspecified type 02/09/2024 3:50 PM EDT ERYTHROPOIETIN (EPO) Lab Routine Anemia, unspecified type 02/09/2024 3:50 PM EDT CBC Lab Routine Anemia, unspecified type 02/09/2024 3:50 PM EDT DIFFERENTIAL, AUTOMATED Lab Routine Anemia, unspecified type 02/09/2024 3:50 PM EDT Health Maintenance Due Date Last [...] 12/31/2024 01/01/2024, 024 CKD HGB USE SMARTSET 55748 01/30/202501/30, 01/31/2024, 12/15/2023, Additional history exists CKD PHOS USE SMARTSET 46453 01/30/2025 09/0 08/2023, 12/27/2023, 10/06/2021, Additional history [...] malignant neoplasm of breast Anemia, unspecified type documented in this encounter Administered Medications Active Administered Medications - up to 3 most recent administrations Medication Order MAR Action Action Date Dose Rate Site hEParin 100 UNIT/ML Lock Flush inj 500 Units 500 Units (5 mL), IV Lock, PRN Other, IV Flush, Starting on Mon02/09/24 at 1602, Until 02/10/24 at 1601, For 24 hours, Do not flush if lock, PICC, or central line not in place; IV infusing or unable to flush. Given 02/09/2024 4:11 PM EDT 500 Units sodium chloride 0.9 % flush central line 10 mL 10 mL, IV Push, PRN Other, IV Flush, Starting on Mon02/09/24 at 1602, Until 02/10/24 at 1601, For 24 hours, Do not flush if lock, PICC, or central line not in place; IV infusing or unable to flush. Given 02/09/2024 4:11 PM EDT 10 mL documented in this encounter Advance Directives * Full Code (Latest Code Status on File) Date Activated Date Inactivated Comments 09/24/2012 8:15 PM 10/02/2012 7:35 PM This order re flects the patients wishes and were consensually agreed upon. Care Teams Yard Clerk Relationship Specialty Start Date End Date Jose M Seth MD [address] [place], [place] [id number] PCP - General Internal Medicine 11/21/11 documented as of this encounter
--- OUTSIDE RECORDS SUMMARY | 2024-02-28 21:40 | External Medical Summary | Summary of Care ---
Author Name Unknown Organization [facility] Address [address] [place] [address] Phone [phone] Care Team Providers Care Safety Teacher Name Role Phone Jose M Seth MD Primary Care Provider + Encounter Details Date Type Department Care Team (Late st Contact Info) Description 02/09/2024 Telephone Hematology/Oncology [facility] 200 [facility] [place] [address] Marietta Salazar CRNP 400 [facility] [place] [address] Allergies Active Allergy Reactions Criticality Noted [...] needed. 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 [...] PSG -- AHI 10.7, <89% 128 mins [facility] Returned machine Jun 2013 Nocturnal hypoxemia 06/18/2012 Overview: 2 LPM [facility] Chronic knee pain History of [...] Seth MD Pharmacy: [facility] 08/09/2013 12/16/2015 Dementia 07/19/2013 2017 [...] mRNA, LNP-s, No Pre serve, 2-Dose Series ([employer]) 02/18/2021,08/10/2020,07/06/2020 COVID-19, MRNA-LNP, 23-24, P F, 30 MCG/0.3 mL, 12 YRS AND ABOVE, IM ([facility]) 04/11/2023 Covid-19, Mrna, Lnp-s, Pf, B ivalent, 30 Mcg, IM, 12 yrs and above ([employer]) 03/22/2022 Pneumococcal Conjugate Vacc, 13 Valent (Prevnar) [...] Encounter - Michael Meza OSA - 02/09/2024 3:51 PM EDT Lmom to schedule port removal * Telephone Encounter - Keisha Lima OSA - 02/09/2024 3:47 PM EDT SURGERY REFERRAL OP [[id number]] (Order [id number]) Kathy Mccoy 02/09/2024 3:00 PM Office Visit Description: 78 year old female Provider: JA Diaz Department: HEM/ONC [place] Order Information Date and Time Department Ordering/Authorizing 02/09/2024 3:39 PM Hem/Onc Scenery Marietta Ventura CRNP Order Providers Authorizing Provider Encounter Provider ([id number]) Marietta Salazar CRNP ([id number]) Marietta Salazar CRNP Supervision Information Encounter Supervising Provider Type of Supervision ([id number]) Cal Quiroga MD General Priority and Order Details Priority Class Within 10 days (routine) Referral Quantity Ordering Quantity 1 Collection Information Scheduling Notes TE to Tre's 02/08 [facility] Visit Disposition Check-out Note Please fax PT referral to [facility] General surgery referral for mediport removal Lab work today as ordered RTC in six months with provider with cbc/diff, cmp, iron screen, ferritin, and myeloma panel Comments Mediport removal documented in this encounter Plan of Treatment Upcoming Encounters Date Type Department Care Team (Late st Contact Info) Description 03/14/2024 1:30 PM EDT Telemedicine Psychiatry Mandi [place] [address] [place] [phone] Zee Zapata MD [address] [place] [phone] 04/29/2024 2:15 PM EST Office Visit Urology, [facility] 132 [place] [address] Mendel Macedo MD [address] [place] [address] 06/04/2024 3:40 PM EST Telemedicine [facility] 132 [place] [phone] Charmaine Mckeon DO 132 [facility] [address] 06/28/2024 1:00 PM EST Office Visit General Internal Medicine [facility] [address] [place] [address] Patience Berrios PA-C 200 [facility] [place] [address] 08/08/2024 3:00 PM EDT Office Visit Hematology/Oncology [facility] 200 [facility] [place] [address] Marietta Salazar CRNP [address] [place] [address] [place] [id number] 09/13/2024 11:20 AM EDT Office [facility] 200 [facility] [place] [address] Haresh Mark MD 200 [facility] [place] [address] 10/14/2024 2:00 PM EDT Nurse Only Ancillary Scenery State Ailyn Massey [address] [place] [address] Shilpa Nurse Annual Wellness Scenery [address] [place] [address] Health Maintenance Due Date Last Done Comments [...] 12/31/2024 01/01/2024, 024 CKD HGB USE SMARTSET 11013 01/30/202501/30, 01/31/2024, 12/15/2023, Additional history exists CKD PHOS USE SMARTSET 74546 01/30/2025 09/0 08/2023, 12/27/2023, 10/06/2021, Additional history [...] and were consensually agreed upon. Care Teams Safety Teacher Relationship Specialty Start Date End Date Jose M Seth MD 200 [place] [address] PCP - General Internal Medicine 11/21/11 documented as of this encounter
--- OUTSIDE RECORDS SUMMARY | 2024-02-28 21:40 | External Medical Summary | Summary of Care ---
Author Name Unknown Organization [facility] Address [address] [place] [address] Phone [phone] Care Team Providers Care Finisher Screwdown Name Role Phone Jose M Seth MD Primary Care Provider + Encounter Details Date Type Department Care Team (Late st Contact Info) Description 02/09/2024 Telephone Hematology/Oncology [facility] 200 [facility] [place] [facility] [place] [address] Marietta Salazar CRNP 400 [place] [address] Allergies Active Allergy Reactions Criticality Noted [...] needed. 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 Use [...] mRNA, LNP-s, No Pre serve, 2-Dose Series ([employer]) 02/18/2021,08/10/2020,07/06/2020 COVID-19, MRNA-LNP, 23-24, P F, 30 MCG/0.3 mL, 12 YRS AND ABOVE, IM ([employer]) 04/11/2023 Covid-19, Mrna, Lnp-s, Pf, B ivalent, 30 Mcg, IM, 12 yrs and above ([employer]) 03/22/2022 Pneumococcal Conjugate Vacc, 13 Valent (Prevnar) [...] 02/09/2024 3:47 PM EDT SURGERY REFERRAL OP [[id number]] (Order [id number]) Kathy Mccoy 02/09/2024 3:00 PM Office Visit Description: 78 year old female Provider: JA Diaz Department: HEM/ONC [place] Order Information Date and Time Department Ordering/Authorizing 02/09/2024 3:39 PM Hem/Onc Scenery Marietta Ventura CRNP Order Providers Authorizing Provider Encounter Provider ([id number]) Marietta Salazar CRNP ([id number]) Marietta Salazar CRNP Supervision Information Encounter Supervising Provider Type of Supervision ([id number]) Cal Quiroga MD General Priority and Order Details Priority Class Within 10 days (routine) Referral Quantity Ordering Quantity 1 Collection Information Scheduling Notes TE to Tre's 02/08 [facility] Visit Disposition Check-out Note Please fax PT [...] 1:30 PM EDT Telemedicine Psychiatry Mandi [place] [address] [place] [phone] Zee Zapata MD [address] [place] [address] 03/22/2024 3:00 PM EDT Immunization/Injection Hematology/Oncology Treatment, [place] [address] [place] [address] Shilpa, Chair 8 Hem Onc [address] [place] [address] 04/29/2024 2:15 PM EST Office Visit Urology, [facility] 132 [facility] [address] Mendel Macedo MD [address] [place] [address] 06/04/2024 3:40 PM EST Telemedicine Sleep Disorders Ctr [facility] 132 [facility] [place] [phone] Charmaine Mckeon DO 132 [place] [address] 06/28/2024 1:00 PM EST Office Visit General Internal Medicine [address] [place] [address] Patience Berrios PA-C 200 [facility] [place] [address] 08/08/2024 3:00 PM EDT Office Visit Hematology/Oncology [facility] 200 [facility] [place] [address] Marietta Salazar CRNP [address] [place] [address] [place] [address] 09/13/2024 11:20 AM EDT Office Visit Nephrology, [facility] 200 [facility] [place] [address] Haresh Mark MD 200 [facility] [place] [address] 10/14/2024 2:00 PM EDT Nurse Only Ancillary [facility] Ailyn Massey 200 [facility] [place] [address] Shilpa Nurse Annual Wellness [facility] [place] [address] Health Maintenance Due Date Last Done Comments [...] 12/31/2024 01/01/2024, 024 CKD HGB USE SMARTSET 70225 01/30/202501/30, 01/31/2024, 12/15/2023, Additional history exists CKD PHOS USE SMARTSET 45375 01/30/2025 09/0 08/2023, 12/27/2023, 10/06/2021, Additional history [...] and were consensually agreed upon. Care Teams Finisher Screwdown Relationship Specialty Start Date End Date Jose M Seth MD 200 [facility] [address] PCP - General Internal Medicine 11/21/11 documented as of this encounter
--- OUTSIDE RECORDS SUMMARY | 2024-02-28 21:40 | External Medical Summary | Summary of Care ---
Author Name Unknown Organization [facility] Address [address] [place] [place] [address] Phone [phone] Care Team Providers Care Roll Operator Name Role Phone Jose M Seth MD Primary Care Provider + Encounter Details Date Type Department Care Team (Late st Contact Info) Description 02/06/2024 Orders Only Hematology/Oncology [facility] [place] [address] [facility] [place] [address] Cal Quiroga MD [address] [facility] [place] [address] Allergies Active Allergy Reactions Criticality Noted Date [...] as of this encounter (statuses as of 02/06/2024) Medications Medication Sig Dispensed Refills Start Date [...] needed. 100 Tab 04/15/2020 Active Saline Nasal Pey[place] 0.65 % Nasal Solution ([place] Nasal Peytona) Two sprays in each nostril as needed [...] as of this encounter (statuses as of 02/06/2024) Active Problems Problem Noted Date Diagnosed Date [...] as of this encounter (statuses as of 02/06/2024) Resolved Problems Problem Noted Date Diagnosed Date [...] M Seth MD Pharmacy: [facility] 08/09/2013 12/16/2015 Dementia 07/19/2013 2017 Encounter [...] as of this encounter (statuses as of 02/06/2024) Immunizations Name Administration Dates Next Due COVID-19 mRNA, LNP-s, No Pre serve, 2-Dose Series (Ring) 02/18/2021,08/10/2020,07/06/2020 COVID-19, MRNA-LNP, 23-24, P F, 30 MCG/0.3 mL, 12 YRS AND ABOVE, IM ([employer] [employer]) 04/11/2023 Covid-19, Mrna, Lnp-s, Pf, B ivalent, 30 Mcg, IM, 12 yrs and above (Ring) 03/22/2022 Pneumococcal Conjugate Vacc, 13 Valent (Prevnar) [...] Care Team (Late st Contact Info) Description 02/06/2024 1:30 PM EDT Telemedicine Psychiatry Dallin Srinivasan [address] [place] [address] Zee Zapata MD [address] [place] [address] 02/09/2024 12:20 PM EDT Immunization Ancillary [facility] [address] [facility] [place] [id number] Sp, [facility] [address] [facility] [place] [id number] 02/09/2024 3:00 PM EDT Office Visit Hematology/Oncology [facility] [place] [address] [place] [address] Marietta Salazar CRNP [address] [facility] [place] [address] 02/09/2024 3:30 PM EDT Nurse Only Hematology/Oncology Treatment, [place] [address] [facility] [place] [address] Shilpa, Chair [address] [place], [place] [id number] 04/29/2024 2:15 PM EST Office Visit Urology, [facility] [address] [facility] [place] [address] Mendel Macedo MD [address] [place] [address] 06/04/2024 3:40 PM EST Telemedicine [facility] Sin[facility] Alvarez [place] [address] [place] [phone] Charmaine Mckeon, [address] [place] [address] 06/28/2024 1:00 PM EST Office Visit General Internal Medicine [facility] [place] [address] [facility] [place] [address] Patience Berrios PA-C [address] [facility] [place] [address] 09/13/2024 11:20 AM EDT Office Visit Nephrology, [facility] [address] [facility] [place] [address] Haresh Mark MD [address] [facility] [place] [address] 10/14/2024 2:00 PM EDT Nurse Only Ancillary [facility] [place] [address] [facility] [place] [address] Shilpa, Nurse Annual Wellness [facility] [address] [facility] [place] [address] Health Maintenance Due Date Last Done Comments COVID-19 Vaccine ( season) 2024 04/11/2023, 03/22/2022, 02/18/2021, Additional history exists Influenza Vaccine (FLU shot) (#1) 2024 02/07/2023, 02/08/2022, 02/08/2021, Additional history exists GFR 07/30/2024 01/31/2024, 11/28, 12/15/2023, Additional history exists DXA Scan 09/20/2024 09/20/2021, 08/28, 10/23/2013, Additional history exists Adult Wellness Visit 10/08/2024 10/09/2023, 10/06/2022, 08/20/2021 Albumin/Creatinine Ratio 12/14/2024 024, 10/18/2022, 07/17/2020, Additional history exists HbA1c 12/14/2024 12/15/2023, 12/2023, 07/13/2022, Additional history exists Depression Monitoring 12/31/2024 01/01/2024, 024 CKD HGB USE SMARTSET 04798 01/30/202501/30, 01/31/2024, 12/15/2023, Additional history exists CKD PHOS USE SMARTSET 80606 01/30/2025 090 08/2023, 12/27/2023, 10/06/2021, Additional history exists DTap/Tdap [...] and were consensually agreed upon. Care Teams Roll Operator Relationship Specialty Start Date End Date Jose M Seth MD [address] [place] [address] PCP - General Internal Medicine 11/21/11 documented as of this encounter
--- OUTSIDE RECORDS SUMMARY | 2024-02-28 21:40 | External Medical Summary | Summary of Care ---
Author Name Unknown Organization [facility] Address [address] [place] [address] Phone [phone] Care Team Providers Care Linux Admin Engineer Name Role Phone Jose M Seth MD Primary Care Provider + Reason for Visit * Reason Onset Date Comments Referral 02/09/2024 Encounter Details Date Type Department Care Team (Late st Contact Info) Description 02/09/2024 Telephone General Surgery, [place] [address], [place] [id number] Services, [facility] [address] [place] [address] Referral Allergies Active Allergy Reactions Criticality Noted [...] needed. 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 Use [...] 10/15/13 PCP: Jose M Seth [facility] 08/09/2013 12/16/2015 Dementia 07/19/2013 [...] mRNA, LNP-s, No Pre serve, 2-Dose Series ([employer]-front[employer]) 02/18/2021,08/10/2020,07/06/2020 COVID-19, MRNA-LNP, 23-24, P F, 30 MCG/0.3 mL, 12 YRS AND ABOVE, IM ([employer]) 04/11/2023 Covid-19, Mrna, Lnp-s, Pf, B ivalent, [...] Nurse Navigator General Surgery and [facility] documented in this encounter Plan of Treatment Upcoming Encounters Date Type Department Care Team (Late st Contact Info) Description 03/14/2024 1:30 PM EDT Telemedicine Psychiatry Dallin Srinivasan [address] [place] [phone] Zee Zapata MD [address] [place] [address] 04/29/2024 2:15 PM EST Office Visit Urology, [facility] [address] [facility] [place] [address] Mendel Macedo MD [address] [place] [address] 06/04/2024 3:40 PM EST Telemedicine [facility] Sinan Alvarez [place] [address] [place] [address] Charmaine Mckeon, [address] [place] [address] 06/28/2024 1:00 PM EST Office Visit General Internal Medicine [facility] Shilpa [place] [address] [place] [address] Patience Berrios PA-C [address] [place] [address] 08/08/2024 3:00 PM EDT Office Visit Hematology/Oncology [facility] [place] [address] [place] [address] Marietta Salazar CRNP [address] [place] [address] [place] [id number] 09/13/2024 11:20 AM EDT Office Visit Nephrology, [facility] [address], [place] [address] Haresh Mark MD 200 [facility] [address] [place], [place] [address] 10/14/2024 2:00 PM EDT Nurse Only Ancillary [facility] [place] [address] [facility] [place] [address] [place], Nurse Annual Wellness [place] [address] [address] [address] Health Maintenance Due Date Last Done Comments [...] 12/31/2024 01/01/2024, 024 CKD HGB USE SMARTSET 62555 01/30/202501/30, 01/31/2024, 12/15/2023, Additional history exists CKD PHOS USE SMARTSET 73896 01/30/2025 09/0 08/2023, 12/27/2023, 10/06/2021, Additional history [...] and were consensually agreed upon. Care Teams Linux Admin Engineer Relationship Specialty Start Date End Date Jose M Seth MD [address] [facility], [place] [address] PCP - General Internal Medicine 11/21/11 documented as of this encounter
--- OUTSIDE RECORDS SUMMARY | 2024-02-28 21:40 | External Medical Summary | Summary of Care ---
Author Name Unknown Organization [facility] Address [address] [place] [address] Phone [phone] Care Team Providers Care Fur Tanner Name Role Phone Jose M Seth MD Primary Care Provider + Reason for Referral * Evaluate & Treat - Unlimited Visits (Within 10 days (routine)) - Authorized Specialty Diagnoses / Procedures Referred By Nelia noble Referred To Contact General Surgery Diagnoses Encounter for adjustment and management of vascular access device Marietta Salazar CRNP [address] [facility] [address] Referral ID Status Reason Start Date Expiration Date Visits Requested Visits Authorized [id number] Authorized Specialty Services Required 02/09/2024 999 [id number] Question Answer Referral Priority Within 10 days (routine) Where should this appointment be scheduled? [facility] What condition is the patient being seen for? General Surgery Conditions What condition is the patient being seen for? All other conditions Comments Mediport removal Patient of Dr. Vijaya Samano * Evaluate & Treat - Unlimited Visits (Within 10 days (routine)) - Authorized Specialty Diagnoses / Procedures Referred By Nelia noble Referred To Contact Physical Therapy / Physical Medicine And Rehab Diagnoses Lymphedema of breast Marietta Salazar CRNP [address] [facility] [place] [address] Referral ID Status Reason Start Date Expiration Date Visits Requested Visits Authorized [id number] Authorized Specialty Services Required 02/09/2024 999 999 Question Answer Referral Priority Within 10 days (routine) Where should this appointment be scheduled? External - [facility] Comments Left breast lymphedema Reason for Visit * Reason Comments Follow Up 6 month follow up Encounter Details Date Type Department Care Team (Late st Contact Info) Description 02/09/2024 3:00 PM EDT [facility] [place] [address] [facility] [place] [address] Marietta Salazar CRNP [address] [place] [address] Encounter for follow-up examination after completed treatment for malignant neoplasm*; History of breast cancer; Lymphedema of breast; Anemia, unspecified type; MGUS (monoclonal gammopathy of unknown significance); Chemotherapy-induced neuropathy (HCC); Encounter for adjustment and management of vascular access device Allergies Active Allergy Reactions Criticality Noted Date [...] needed. 100 Tab 04/15/2020 Active Saline Nasal Childs 0.65 % Nasal Solution ([place] Nasal Childs) Two sprays in each nostril as needed [...] Active Commode BedsideIndications:C hronic diastolic heart failure (HCC),nursing home current use of diuretic Bedside commode. Use [...] AHI 10.7, <89% 128 mins [facility] Returned machine Jun 2013 Nocturnal hypoxemia 06/18/2012 Overview: 2 LPM [facility] Chronic knee pain History [...] mRNA, LNP-s, No Pre serve, 2-Dose Series (O-CODES) 02/18/2021,08/10/2020,07/06/2020 COVID-19, MRNA-LNP, 23-24, P F, 30 MCG/0.3 mL, 12 YRS AND ABOVE, IM ([employer]Comiratrium healthLoSo) 04/11/2023 Covid-19, Mrna, Lnp-s, Pf, B ivalent, [...] Sign Reading Time Taken Comments Blood Pressure 102/65 02/09/2024 2:55 PM EDT Pulse 80 02/09/2024 2:55 PM EDT Temperature 36.6 C (97.9 F) 02/09/2024 2:55 PM ED T Respiratory Rate - - Oxygen Saturation 97% 02/09/2024 2:55 PM EDT Inhaled Oxygen Concentration - - Weight 80.1 kg (176 lb 9.6 oz) 02/09/2024 2:55 P M EDT Height - - Body Mass Index 33.37 10/09/2023 1:18 PM EDT documented in this encounter Progress Notes * Marietta Salazar CRNP - 02/09/2024 2:54 PM EDT Hematology/Oncology Outpatient Clinic note Reena Torres [place] [address] [facility] [place] [address] Name: Kathy Mccoy Date: 02/09/2024 CHIEF COMPLAINT: Kathy Mccoy is a 78 year old female patient of Dr. Mccall Kimber here today for f/u visit today. From Patient chart confirmed with patient. 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 ER/NH and HER2/arleth all negative. Tumor measures 17 [...] (ER) protein expression is NEGATIVE Progesterone Receptor (NH) protein expression is NEGATIVE HER2 oncoprotein expression [...] on 04/13/2021 and capecitabine for residual disease. HISTORY OF PRESENT ILLNESS: Kathy Mccoy is a 78 year old female with a history as outlined above. Currently here for f/u visit today. Presents with her daughter. Patient doing well today. Would like to consider having mediport removed. Feels she has some thickness under her left breast. Experiencing left breast pain. Denies lymphedema in her left arm. Continues to have neuropathy pain in her feet. Taking gabapentin three times a day. Not taking any oral iron. Weight is stable. Past Medical History: Diagnosis Date Arthritis of knee BIPOLAR AFFEC, DEPR-MOD 06/29/2009 Bipolar I disorder, most recent episode depressed (HCC) Breast cancer ([facility]) 02/26/2020 Invasive Ductal Carcinoma left breast Breast carcinoma, female, left (HCC) 04/01/2020 Cervicalgia 07/22/2009 Chronic bilateral low back pain with bilateral sciatica 12/16/2015 Chronic knee pain Chronic shoulder pain Diastolic dysfunction 06/18/2015 Endometrial cancer ([facility]) 2012 Epiretinal membrane, right eye 08/20/2012 23G [...] OPEN performed by Vijaya Samano MD at [facility] CARPAL TUNNEL SURGERY 1996 left and right CATARACT SURGERY,COMPLEX Bilateral 10/2014 CHEMOTHERAPY 04/20/2020 completed 10/28/2020 neoadjuvant chemotherapy Adrianmycin & Cytoxan. Followed by 11 of 12 cycles of Taxol COLONOSCOPY W/ BIOPSY (RECTUM) 09/08/2010 polyp x1 , skin tags, path repeat in 5 years COLONOSCOPY, DIAGNOSTIC (RECTUM) 04/13/2016 normal/[facility] EGD, FLEXIBLE, DIAGNOSTIC 04/13/2016 acid reflux/[facility] EGD, FLEXIBLE, DIAGNOSTIC 02/24/2022 normal / ESOPHAGOGASTRODUODENOSCOPY (EGD), FLEXIBLE, TRANSORAL, DIAGNOSTIC performed by Rober Redding MD at ENDOSCOPY [facility] IDENTIFY SENTINEL NODE, RADIOACTIVE TRACER Left 12/30/2020 INJECTION PROCEDURE FOR IDENTIFICATION SENTINEL NODE performed by Vijaya Samano MD at [facility] INFORMATION 11/13/2012 11/13/2012 insertion of A-port - left shoulder [facility] Dr. Vijaya Samano MASTECTOMY, PARTIAL Left 12/30/2020 MASTECTOMY PARTIAL performed by Vijaya Samano MD at [facility] PROCEDURE - GENERAL PROCEDURE - GENERAL N/A 04/08/2020 iNSERTION OF VENOUS ACCESS(CHEST) RADIATION THERAPY Left 04/13/2021 6640 cGy to left breast, supraclavicular area, and axilla REMOVE GALLBLADDER 1985 REPAIR INITIAL INGUINAL HERNIA REDUCIBLE AGE 5 OR MORE 2006 TOTAL ABD HYSTERECTOMY W/WO REMOVAL OF TUBE(S) 09/24/2012 TOTAL ABDOMINAL HYSTERECTOMY WITH OR WITHOUT TUBES AND OVARIES performed by Jacey Jewell MD at [facility] TOTAL HIP REPLACEMENT & PROSTHESIS Left 09/02/2016 TREAT ECTOPIC , TUBE/OVARY 1963 US GUIDED BREAST BIOPSY LEFT Left 02/26/2020 Axillary biopsy- benign US GUIDED BREAST BIOPSY 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 Plasencia Social History Socioeconomic History Marital status: Spouse [...] pets No mold Lives alone. Daughter is bluing oven tender. Another daughter in [place]. Social Determinants of Health Financial Resource Strain: [...] Stability Do you currently live in a retirement or have no steady place to sleep [...] ages0-17 years): Not on file Review of patient's allergies indicates: Allergen Reactions [...] hours as needed. 100 Tab0 Saline Nasal Childs 0.65 % Nasal Solution ([place] Nasal Childs) Two sprays in each nostril as needed [...] COVID-19 mRNA Vaccine 12 years and above O-CODES 30 MCG/0.3 ML IM SUSP Inject into [...] daily as needed for Anxiety. 10 Tablet0 Premarin 0.625 MG/GM Vaginal Cream (Estrogens Conjugated) Administer into the vagina once a day on Monday, Monday, and Monday only. As directed. 30 g 3 Urea 15 GM Oral Packet (Ure-Na) Take 15 g by mouth daily 8 Packet 0 Divalproex Sodium ER 250 MG Oral Tablet Extended Release 24 Hour (Depakote ER) Take 3 Tablets by mouth every night at bedtime. 90 Tablet 0 No current facility-administered medications for this visit. REVIEW OF SYSTEMS: See HPI - otherwise negative OBJECTIVE: Filed Vitals: 02/09/24 1455 BP: 102/65 Pulse: 80 Temp: 36.6 C (97.9 F) TempSrc: Tympanic SpO2: 97% Weight: 80.1 kg (176 lb 9.6 oz) Wt Readings from Last 5 Encounters: 02/09/24 80.1 kg (176 lb 9.6 oz) 01/31/24 78.5 kg (173 lb) 12/27/23 80.5 kg (177 lb 8 oz) 12/15/23 80.8 kg (178 lb 1.6 oz) 12/04/23 84.3 kg (185 lb 12.8 oz) PHYSICAL EXAM: ECOG: Performance Status 1 = 80-90% Symptoms but nearly ambulatory General Appearance: No acute distress Lymph Nodes: Normal - No palpable lymph nodes in the neck, supraclavicular or axillary areas Lungs/Thorax: Normal - Clear to auscultation Heart: Normal - Regular rate and rhythm, +murmur Pulses/Extremities: Normal - 2+ throughout and symmetrical, no edema Breast: left breast with dependent edema, lower aspect of breast with skin thickening and radiationchanges, telangiectasias noted to inframammary fold, no palpable suspicious masses Neurologic: alert and oriented x 4, ambulates with walker LABS: Results for orders placed or performed in visit on 01/31/24 MULTI-CANCER PANEL, INVITAE Result Value Ref Range External Lab Report RESULT SCAN IRON SCREEN, INCLUDING TIBC Result Value Ref Range Iron 73 33 - 151 ug/dL Iron Binding Capacity 316 250 - 425 ug/dL Transferrin Saturation Percent 23 15 - 55 % OSMOLALITY, URINE Result Value Ref Range Osmolality, Urine 695 50 - 1,200 mOsm/kg PROTEIN/ CREATININE RATIO, URINE Result Value Ref Range Protein/ Creatinine Ratio, Urine 154 (H) <150 mg/g Protein, Random Urine 16 mg/dL Creatinine, Random Urine 104 mg/dL RENAL FUNCTION PANEL Result Value Ref Range BUN 52 (H) 6 - 20 mg/dL Creatinine 0.8 0.5 - 1.0 mg/dL Estimated Glomerular Filtration Rate 74 >=60 mL/min Sodium 135 135 - 146 mmol/L Potassium 4.4 3.5 - 5.1 mmol/L Chloride 96 (L) 98 - 107 mmol/L CO2 30 22 - 32 mmol/L Anion Gap 9 7 - 15 mmol/L Glucose 95 70 - 120 mg/dL Calcium 9.2 8.4 - 10.2 mg/dL Albumin 4.1 3.8 - 5.0 g/dL Phosphorus 3.7 2.5 - 4.8 mg/dL URINALYSIS WITH MICROSCOPIC EXAM Result Value Ref Range Color, Urine Yellow Light Yellow, Yellow, Dark Yellow Clarity, Urine Clear Clear Glucose, Urine Negative Negative mg/dL Bilirubin, Urine Negative Negative Ketone, Urine Negative Negative mg/dL Specific Sullivan, Urine 1.010 1.003 - 1.030 Blood, Urine Negative Negative pH, Urine 6.0 5.0 - 7.5 Units Protein, Urine Negative Negative mg/dL Urobilinogen, Urine 0.2 0.2, 1.0 mg/dL Nitrite, Urine Negative Negative Esterase, Urine Trace (A) Negative RBC, Urine 0-2 0 - 2 /HPF WBC, Urine 3-5 (A) 0 - 2 /HPF Bacteria, Urine 26-50 (A) 0 - 25 /HPF SODIUM, RANDOM URINE Result Value Ref Range Sodium, Random Urine <20 mmol/L OSMOLALITY, SERUM Result Value Ref Range Osmolality, Serum 302 278 - 305 mOsm/kg FERRITIN Result Value Ref Range Ferritin 306 (H) 13 - 150 ng/mL CBC Result Value Ref Range WBC 4.66 4.00 - 10.80 K/uL RBC 3.03 3.85 - 5.15 M/uL HGB 9.5 (L) 12.0 - 15.3 g/dL HCT 29.2 (L) 36.0 - 45.2 % MCV 96.4 81.5 - 97.5 fL MCH 31.4 27.0 - 34.0 pg MCHC 32.5 32.0 - 36.0 g/dL RDW 15.3 11.5 - 15.5 % PLT 195 140 - 400 K/uL MPV 11.0 6.6 - 11.1 fL DIFFERENTIAL, AUTOMATED Result Value Ref Range WBC 4.66 4.00 - 10.80 K/uL Neutrophils % 66.6 40.0 - 75.0 % Lymphocytes % 20.4 18.0 - 42.0 % Monocytes % 12.2 (H) 1.0 - 11.0 % Eosinophils % 0.6 0.0 - 6.0 % Basophils % 0.2 0.0 - 2.0 % Absolute Neutrophils 3.10 1.80 - 7.70 K/uL Absolute Lymphocytes 0.95 (L) 1.00 - 4.80 K/ul Absolute Monocytes 0.57 0.00 - 1.10 K/uL Absolute Eosinophils 0.03 0.00 - 0.70 K/uL Absolute Basophils 0.01 0.00 - 0.20 K/uL *Note: Due to a large number of results and/or encounters for the requested time period, some results have not been displayed. A complete set of results can be found in Results Review. IMAGING: Bilateral Diagnostic Mammogram 10/11/23: Findings The breasts have scattered areas of fibroglandular density. Postsurgical changes related to breast conserving surgery for carcinoma and findings related to radiation therapy are noted in the left breast. No new dominant mass or clustered microcalcifications suspicious for malignancy are identified. Impression Bilateral No mammographic evidence of malignancy. BI-RADS Category: 2 - Benign. Recommendation Bilateral diagnostic mammogram is advised in 1 year or sooner if warranted clinically. IMPRESSION/PLAN: History of Triple Negative Left Breast Cancer Left breast lymphedema Anemia Observation since 10/2021 Lab results 01/31/24 reviewed: -mild worsening of anemia with Hgb of 9.5 (baseline Hgb 10-11) -no iron deficiency present -creatinine WNL Lab orders placed to be completed today include CBCd, retic panel, ldh and EPO -will follow up with patient over [employer] message with results Mammogram 10/11/23 - BIRADS 2, repeat in one year Patient requesting to reestablish with lymphedema therapist today d/t worsening left breast lymphedema and discomfort. PT referral placed. Will [facility] to [facility] per patient request. Continue self breast exams Patient requesting mediport removal today. General surgery referral placed. 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 MGUS IgG kappa Myeloma labs stable 12/15/23 Will continue lab monitoring every six months Peripheral neuropathy Treated with voltaren gel and Gabapentin Continue to follow with PCP. RTC in six months with provider with cbc/diff, cmp, iron screen, ferritin, and myeloma panel JA Diaz documented in this encounter Nursing Notes * Phuong Mcadams, CARVING MACHINE OPERATOR - 02/09/2024 2:56 PM EDT Patient identifed by name and birthdate Do you have any concerns about pain management for today's visit? No Living Will or Advance Directive for Health Care as noted on the problem list. [facility] is a way you can talk to your provider on line through e-mail. Would you like to sign up? I can activate it for you? ALREADY ACTIVE Filed Vitals: 02/09/24 1455 BP: 102/65 Pulse: 80 Temp: 36.6 C (97.9 F) TempSrc: Tympanic SpO2: 97% Weight: 80.1 kg (176 lb 9.6 oz) Patient was instructed to not get up on the exam table/exam chair until directed and assisted by their provider; patient is to remain seated in the chair/ wheelchair/ exam table/ exam chair for fall prevention and safety reasons. Patient is aware to have assistance to step down off exam table/exam chair with personnel. Patient voiced full comprehension of instructions. documented in this encounter Plan of Treatment Upcoming Encounters Date Type Department Care Team (Late st Contact Info) Description 03/14/2024 1:30 PM EDT Telemedicine Psychiatry [place] Srinivasan [address] [place] [address] Zee Zapata MD [address] [place] [address] 03/22/2024 3:00 PM EDT Immunization/Injection Hematology/Oncology Treatment, [address] [address] Shilpa, Chair [address] [place] [address] 04/29/2024 2:15 PM EST Office Visit Urology, [facility] [address] [facility] [place] [address] Mendel Macedo MD [address] [place] [address] 06/04/2024 3:40 PM EST Telemedicine [facility] Disorders C[facility] [address] [place] [phone] Charmaine Mckeon, DO [address] [place] [address] 06/28/2024 1:00 PM EST Office Visit General Internal Medicine [facility] [place] [address] [facility] [place] [address] Patience Berrios, DAVIS [address] [facility] [place] [address] 08/08/2024 3:00 PM EDT Office Visit Hematology/Oncology [facility] [place] [address] [facility] [place] [address] Marietta Salazar CRNP [address] [place] [address] 09/13/2024 11:20 AM EDT Office Visit Nephrology, [facility] [address] [facility] [address] [place], [place] [address] Haresh Mark MD [address] [facility] [address] [place], [place] [address] 10/14/2024 2:00 PM EDT Nurse Only Ancillary [facility] [place] [address] [facility] [address] [place], [place] [address] [place], Nurse [facility]ness [address] [place], [place] [address] Pending Results Name Type Priority Associated Diagnoses Date /Time CBC WITH WBC DIFFERENTIAL Lab Routine Anemia, unspecified type 02/09/2024 3:50 PM EDT RETICULOCYTE PANEL Lab Routine Anemia, unspecified type 02/09/2024 3:50 PM EDT LD Lab Routine Anemia, unspecified type 02/09/2024 3:50 PM EDT ERYTHROPOIETIN (EPO) Lab Routine Anemia, unspecified type 02/09/2024 3:50 PM EDT Scheduled Orders Name Type Priority Associated Diagnoses Orde r Schedule CBC WITH WBC DIFFERENTIAL Lab Routine Anemia, unspecified type Expected: 02/09/2024 (Approximate), Expires: 02/07/2025 RETICULOCYTE PANEL Lab Routine Anemia, unspecified type Expected: 02/09/2024 (Approximate), Expires: 02/07/2025 LD Lab Routine Anemia, unspecified type Expected: 02/09/2024 (Approximate), Expires: 02/07/2025 ERYTHROPOIETIN (EPO) Lab Routine Anemia, unspecified type Expected: 02/09/2024 (Approximate), Expires: 02/07/2025 CBC WITH WBC DIFFERENTIAL Lab STAT Anemia, unspecified type History of breast cancer MGUS (monoclonal gammopathy of unknown significance) Every 6 Months for 2 Occurrences starting 02/09/2024 until 03/10/2025 COMPREHENSIVE METABOLIC PANEL Lab STAT Anemia, unspecified type History of breast cancer MGUS (monoclonal gammopathy of unknown significance) Every 6 Months for 2 Occurrences starting 02/09/2024 until 03/10/2025 IRON SCREEN, INCLUDING TIBC Lab STAT Anemia, unspecified type History of breast cancer MGUS (monoclonal gammopathy of unknown significance) Every 6 Months for 2 Occurrences starting 02/09/2024 until 03/10/2025 FERRITIN Lab STAT Anemia, unspecified type History of breast cancer MGUS (monoclonal gammopathy of unknown significance) Every 6 Months for 2 Occurrences starting 02/09/2024 until 03/10/2025 SERUM PROTEIN ELECTROPHORESIS REFLEX PROFILE Lab STAT Anemia, unspecified type History of breast cancer MGUS (monoclonal gammopathy of unknown significance) Every 6 Months for 2 Occurrences starting 02/09/2024 until 03/10/2025 SERUM FREE LIGHT CHAINS Lab STAT Anemia, unspecified type History of breast cancer MGUS (monoclonal gammopathy of unknown significance) Every 6 Months for 2 Occurrences starting 02/09/2024 until 03/10/2025 IMMUNOGLOBULIN QUANTITATIVE Lab STAT Anemia, unspecified type History of breast cancer MGUS (monoclonal gammopathy of unknown significance) Every 6 Months for 2 Occurrences starting 02/09/2024 until 03/10/2025 Scheduled Referrals Name Type Priority Associated Diagnoses Orde r Schedule PHYSICAL THERAPY REFERRAL OP Referral Within 10 days (routine) Lymphedema of breast Ordered: 02/09/2024 SURGERY REFERRAL OP Referral Within 10 da ys (routine) Encounter for adjustment and management of vascular access device Ordered: 02/09/2024 Health Maintenance Due Date Last Done Comments [...] 12/31/2024 01/01/2024, 024 CKD HGB USE SMARTSET 21619 01/30/202501/30, 01/31/2024, 12/15/2023, Additional history exists CKD PHOS USE SMARTSET 63317 01/30/2025 09/0 08/2023, 12/27/2023, 10/06/2021, Additional history [...] Personal history of malignant neoplasm of breast Lymphedema of breast Other lymphedema Anemia, unspecified type MGUS (monoclonal gammopathy of unknown significance) 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 Care Teams Fur Tanner Relationship Specialty Start Date End Date Jose M Seth MD [address] [place] [address] PCP - General Internal Medicine 11/21/11 documented as of this encounter
--- OUTSIDE RECORDS SUMMARY | 2024-02-28 21:40 | External Medical Summary ---
Author Name Unknown Address Unknown Organization K01:[facility] - [address] [facility] [place] [address] Laboratory Report Ordering Provider Test Date Status BRITTANY MONCADA 02/09/2024 15:50:11 Final Observation Date Value Abnormality Reference (Units ) Status SYNC LEUKOCYTES IN BLOOD BY AUTOMATED COUNT 02/09/2024 15:50:11 2.89 Below low normal 4.00-10.80 (K/uL) Final Segs 02/09/2024 15:50:11 61.7 40.0-75.0 (%) Final Lymphs % 02/09/2024 15:50:11 25.3 18.0-42.0 (%) Final Monos 02/09/2024 15:50:11 11.4 Above high normal 1.0-11.0 (%) Final Eosinophils 02/09/2024 15:50:11 1.0 0.0-6.0 (%) Final Basos 02/09/2024 15:50:11 0.3 0.0-2.0 (%) Final Immature Granulocyte, Percent 02/09/2024 15:50:11 0.3 0.0-2.0 (%) Final Absolute Segs 02/09/2024 15:50:11 1.78 Below low normal 1.80-7.70 (K/uL) Final Lymphs, absolute 02/09/2024 15:50:11 0.73 Below low normal 1.00-4.80 (K/ul) Final Monos, Abs 02/09/2024 15:50:11 0.33 0.00-1.10 (K/uL) Final Eos, Abs 02/09/2024 15:50:11 0.03 0.00-0.70 (K/uL) Final Basos, Abs 02/09/2024 15:50:11 0.01 0.00-0.20 (K/uL) Final Immature Granulocytes, Number 02/09/2024 15:50:11 0.01 0.00-0.20 (K/uL) Final Performing Location [facility] [place] [facility] [address]
--- OUTSIDE RECORDS SUMMARY | 2024-02-28 21:41 | External Medical Summary | Summary of Care ---
Author Name Unknown Organization [facility] Address [address] [place] [address] Phone [phone] Care Team Providers Care Pediatric Care Coordinator Name Role Phone Jose M Seth MD Primary Care Provider + Reason for Visit * Reason Onset Date Comments Test Results 02/01/2024 Encounter Details Date Type Department Care Team (Late st Contact Info) Description 02/01/2024 Telephone Nephrology, [place] [address] [place] [address] Haresh Mark MD 200 [place] [address] Test Results Allergies Active Allergy Reactions Criticality [...] as of this encounter (statuses as of 02/01/2024) Medications Medication Sig Dispensed Refills Start Date [...] needed. 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 Use [...] as of this encounter (statuses as of 02/01/2024) Active Problems Problem Noted Date Diagnosed Date [...] as of this encounter (statuses as of 02/01/2024) Resolved Problems Problem Noted Date Diagnosed Date [...] as of this encounter (statuses as of 02/01/2024) Immunizations Name Administration Dates Next Due COVID-19 mRNA, LNP-s, No Pre serve, 2-Dose Series (Hypecal) 02/18/2021,08/10/2020,07/06/2020 COVID-19, MRNA-LNP, 23-24, P F, 30 MCG/0.3 mL, 12 YRS AND ABOVE, IM (Sense Platform-ComirnatCityscape Residential) 04/11/2023 Covid-19, Mrna, Lnp-s, Pf, B ivalent, 30 Mcg, IM, 12 yrs and above (Hypecal) 03/22/2022 Pneumococcal Conjugate Vacc, 13 Valent (Prevnar) [...] encounter Miscellaneous Notes * Telephone Encounter - Chel Wallace LPN - 02/01/2024 4:02 PM EDT Only received voice mail * Telephone Encounter - Chel Wallace LPN - 02/01/2024 4:00 PM EDT Attempted to contact LMM to will try to reach her in a little while * Telephone Encounter - Radha Vigil OSA - 02/01/2024 3:53 PM EDT PT returning call * Telephone Encounter - Chel Wallace LPN - 02/01/2024 2:04 PM EDT LMM to return call to our office to discuss test results and MD recommendations Lab order placed [facility] lab system for renal panel Will await pt call back to discuss * Telephone Encounter - Chel Wallace LPN - 02/01/2024 2:04 PM EDT ----- Message from Haresh Mark MD sent at 02/01/2024 12:26 PM EDT ----- Sodium is borderline normal at 135. However I do not like the BUN of 52. Stop urea. She is currently taking 15 g daily. Sodium might drop a little bit with this but I would rather take sodium in the low 130s than BUN being so high. Hemoglobin is stable and iron screen is normal so I do not think she is actually having any significant GI bleed. Repeat renal panel next week on Monday. . Sodium change very fast after medication change documented in this encounter Plan of Treatment Upcoming Encounters Date Type Department Care Team (Late st Contact Info) Description 02/06/2024 1:30 PM EDT Telemedicine Psychiatry [place] [address] [place] [address] Zee Zapata MD [address] [place] [address] 02/09/2024 12:20 PM EDT Immunization Ancillary [facility] 200 [facility] [place] [address] Sp, Flu Shot Clinic 200 [facility] [place] [address] 02/09/2024 3:00 PM EDT Office Visit Hematology/Oncology [facility] 200 [facility] [place] [address] Marietta Salazar, JA 400 [facility] [place] [address] 02/09/2024 3:30 PM EDT Nurse Only Hematology/Oncology Treatment, [place] 200 [facility] [address] [place] [address] Shilpa, Chair 10 Hem [address] [place], [place] [address] 04/29/2024 2:15 PM EST Office Visit Urology, [facility] 132 [facility] [place] [address] Mendel Macedo MD 27 [place] [address] 06/04/2024 3:40 PM EST Telemedicine [facility] Disorders [facility] [employer] [address] [place] [phone] Charmaine Mckeon, [address] [place] [address] 06/28/2024 1:00 PM EST Office Visit General Internal Medicine [facility] [place] 200 [facility] [place] [address] Patience Berrios PA-C 200 [facility] [place] [address] 09/13/2024 11:20 AM EDT Office Visit Nephrology, [facility] 200 [facility] [place] [address] Haresh Mark MD 200 [facility] [place] [address] 10/14/2024 2:00 PM EDT Nurse Only Ancillary [facility] [place] 200 [facility] [place] [address] Shilpa, Nurse Annual Wellness [facility] 200 [facility] [place] [address] Health Maintenance Due Date Last Done Comments [...] 12/31/2024 01/01/2024, 024 CKD HGB USE SMARTSET 62297 01/30/202501/30, 01/31/2024, 12/15/2023, Additional history exists CKD PHOS USE SMARTSET 02448 01/30/2025 090 08/2023, 12/27/2023, 10/06/2021, Additional history [...] and were consensually agreed upon. Care Teams Pediatric Care Coordinator Relationship Specialty Start Date End Date Jose M Seth MD 200 [facility] [place] [address] PCP - General Internal Medicine 11/21/11 documented as of this encounter
--- OUTSIDE RECORDS SUMMARY | 2024-02-28 21:41 | External Medical Summary | Summary of Care ---
Author Name Unknown Organization [facility] Address [address] [place] [address] Phone [phone] Care Team Providers Care Open Die Inspector Name Role Phone Jose M Seth MD Primary Care Provider + Reason for Visit * Reason Onset Date Comments Test Results 02/01/2024 Encounter Details Date Type Department Care Team (Late st Contact Info) Description 02/01/2024 Telephone Nephrology, [place] [address] [place] [address] Haresh Mark MD 200 [place] [address] Test Results Allergies Active Allergy Reactions Criticality [...] needed. 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 Use [...] M Seth MD Pharmacy: Maricruz Foster [facility] 08/09/2013 12/16/2015 Dementia 07/19/2013 2017 [...] mRNA, LNP-s, No Pre serve, 2-Dose Series (Février 46) 02/18/2021,08/10/2020,07/06/2020 COVID-19, MRNA-LNP, 23-24, P F, 30 MCG/0.3 mL, 12 YRS AND ABOVE, IM (Pulian Software-ComirnatPombai) 04/11/2023 Covid-19, Mrna, Lnp-s, Pf, B ivalent, 30 Mcg, IM, 12 yrs and above (Février 46) 03/22/2022 Pneumococcal Conjugate Vacc, 13 Valent (Prevnar) [...] results and MD recommendations Lab order placed [facility] lab system for renal panel Will await [...] Telemedicine Psychiatry [place] [address] [place] [address] Zee Zapata MD 9 [place] [address] 02/09/2024 12:20 PM EDT Immunization Ancillary [facility] 200 [facility] [place] [address] Sp, Flu Shot Clinic 200 [facility] [place] [address] 02/09/2024 3:00 PM EDT Office Visit Hematology/Oncology [facility] 200 [facility] [place] [address] Marietta Salazar, JA 400 [facility] [place] [address] 02/09/2024 3:30 PM EDT Nurse Only Hematology/Oncology Treatment, [place] [address] [facility] [address] [place] [address] Shilpa, Chair 10 Hem On[address] [place], [place] [address] 04/29/2024 2:15 PM EST Office Visit Urology, [facility] 132 [facility] [place] [address] Mendel Macedo MD 27 [place] [address] 06/04/2024 3:40 PM EST Telemedicine Sleep Disorders Ctr [employer] [address] [place] [phone] Charmaine Mckeon, [address] [place] [address] 06/28/2024 1:00 PM EST Office Visit General Internal Medicine [facility] [place] 200 [facility] [place] [address] Patience Berrios PA-C 200 [facility] [place] [address] 09/13/2024 11:20 AM EDT Office Visit Nephrology, [facility] 200 [facility] [place] [address] Haresh Mark MD 200 [facility] [place] [address] 10/14/2024 2:00 PM EDT Nurse Only Ancillary [facility] [place] 200 [facility] [place] [address] Shilpa, Nurse Annual Wellness [facility] 200 [facility] [place] [address] Health Maintenance Due Date Last Done Comments [...] 12/31/2024 01/01/2024, 024 CKD HGB USE SMARTSET 26929 01/30/202501/30, 01/31/2024, 12/15/2023, Additional history exists CKD PHOS USE SMARTSET 03705 01/30/2025 090 08/2023, 12/27/2023, 10/06/2021, Additional history [...] and were consensually agreed upon. Care Teams Open Die Inspector Relationship Specialty Start Date End Date Jose M Seth MD 200 [facility] [place] [address] PCP - General Internal Medicine 11/21/11 documented as of this encounter
--- OUTSIDE RECORDS SUMMARY | 2024-02-28 21:41 | External Medical Summary | Summary of Care ---
Author Name Unknown Organization [facility] Address [address] [place] [address] Phone [phone] Care Team Providers Care Windmill Technician Name Role Phone Jose M Seth MD Primary Care Provider + Reason for Visit * Reason Onset Date Comments Advice 01/31/2024 Encounter Details Date Type Department Care Team (Late st Contact Info) Description 01/31/2024 Telephone General Internal Medicine [facility] 200 [place] [address] Jose M Seth MD 200 [place] [address] Advice Allergies Active Allergy Reactions Criticality Noted [...] as of this encounter (statuses as of 02/05/2024) Medications Medication Sig Dispensed Refills Start Date [...] needed. 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 Use [...] as of this encounter (statuses as of 02/05/2024) Active Problems Problem Noted Date Diagnosed Date [...] as of this encounter (statuses as of 02/05/2024) Resolved Problems Problem Noted Date Diagnosed Date [...] M Seth MD Pharmacy: Maricruz Foster [facility] 08/09/2013 12/16/2015 Dementia 07/19/2013 2017 [...] as of this encounter (statuses as of 02/05/2024) Immunizations Name Administration Dates Next Due COVID-19 mRNA, LNP-s, No Pre serve, 2-Dose Series (iTMan) 02/18/2021,08/10/2020,07/06/2020 COVID-19, MRNA-LNP, 23-24, P F, 30 MCG/0.3 mL, 12 YRS AND ABOVE, IM (Poynt-[facility] Division[facility] centerRisk I/O) 04/11/2023 Covid-19, Mrna, Lnp-s, Pf, B ivalent, 30 Mcg, IM, 12 yrs and above (iTMan) 03/22/2022 Pneumococcal Conjugate Vacc, 13 Valent (Prevnar) [...] encounter Miscellaneous Notes * Telephone Encounter - Nidhi Rojas LPN - 02/05/2024 10:28 AM EDT Patient aware and verbalized understanding, will comply. * Telephone Encounter - Madiha Vann LPN - 02/05/2024 10:18 AM EDT LMOM for patient to return call. Please send to dedicated nurse line upon return call to give the message below. * Telephone Encounter - Jose M Seth MD - 02/01/2024 12:03 PM EDT I recommend she get flu, covid booster soon we can discuss pneumonia vaccine next ov * Telephone Encounter - Madiha Vann LPN - 01/31/2024 5:23 PM EDT It isn't showing she is due for a pneumonia vaccine, please advise. * Telephone Encounter - Payton Springer OSA - 01/31/2024 5:16 PM EDT Patient called wanting to know if Dr. Seth recommends she gets the pneumonia vaccine? Please advise. documented in this encounter Plan of Treatment Upcoming Encounters Date Type Department Care Team (Late st Contact Info) Description 02/06/2024 1:30 PM EDT Telemedicine Psychiatry [place] [address] [place] [address] Zee Zapata MD 9 [place] [address] 02/09/2024 12:20 PM EDT Immunization Ancillary [facility] 200 [facility] [place] [address] Sp, Flu Shot Clinic 200 [facility] [place] [address] 02/09/2024 3:00 PM EDT Office Visit Hematology/Oncology [facility] 200 [facility] [place] [address] Marietta Salazar CRNP 400 [facility] [place] [id number] 02/09/2024 3:30 PM EDT Nurse Only Hematology/Oncology Treatment, [place] 200 [facility] [place] [address] Shilpa, Chair 10 Hem On[address] [place] [address] 04/29/2024 2:15 PM EST [facility] 132 [facility] [place] [address] Mendel Macedo MD 27 [place] [id number] 06/04/2024 3:40 PM EST Telemedicine Sleep Disorders Ctr [facility] 132 [facility] [place] [phone] Charmaine Mckeon, DO 132 [facility] [place] [address] 06/28/2024 1:00 PM EST Office Visit General Internal Medicine [facility] [place] 200 [facility] [place] [address] Patience Berrios PA-C 200 [facility] [place] [address] 09/13/2024 11:20 AM EDT Office Visit Nephrology, [facility] 200 [facility] [place] [address] Haresh Mark MD 200 [facility] [place] [address] 10/14/2024 2:00 PM EDT Nurse Only Ancillary [facility] [place] 200 [facility] [place] [address] [place], Nurse Annual Wellness [address] [place] [address] Health Maintenance Due Date Last Done Comments [...] 12/31/2024 01/01/2024, 024 CKD HGB USE SMARTSET 92941 01/30/202501/30, 01/31/2024, 12/15/2023, Additional history exists CKD PHOS USE SMARTSET 31307 01/30/2025 09/0 08/2023, 12/27/2023, 10/06/2021, Additional history [...] and were consensually agreed upon. Care Teams Windmill Technician Relationship Specialty Start Date End Date Jose M Seth MD [address] [place] [address] PCP - General Internal Medicine 11/21/11 documented as of this encounter
--- OUTSIDE RECORDS SUMMARY | 2024-02-28 21:41 | External Medical Summary | Summary of Care ---
Author Name Unknown Organization [facility] Address [address] [place] [address] Phone [phone] Care Team Providers Care Tape Control Skin Or Spar Mill Operator Name Role Phone Jose M Seth MD Primary Care Provider + Reason for Visit * Reason Onset Date Comments Advice 01/31/2024 Encounter Details Date Type Department Care Team (Late st Contact Info) Description 01/31/2024 Telephone General Internal Medicine [facility] 200 [facility] [address] Jose M Seth MD 200 [place] [address] Advice Allergies Active Allergy Reactions Criticality Noted [...] needed. 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 Use [...] Jose M Seth MD Pharmacy: Maricruz Foster [facility] 08/09/2013 12/16/2015 Dementia 07/19/2013 2017 Encounter [...] mRNA, LNP-s, No Pre serve, 2-Dose Series (LifeBlinx) 02/18/2021,08/10/2020,07/06/2020 COVID-19, MRNA-LNP, 23-24, P F, 30 MCG/0.3 mL, 12 YRS AND ABOVE, IM (Legendary Pictures-[facility] Hospital[facility]firsthealthZevan Limited) 04/11/2023 Covid-19, Mrna, Lnp-s, Pf, B ivalent, 30 Mcg, IM, 12 yrs and above (LifeBlinx) 03/22/2022 Pneumococcal Conjugate Vacc, 13 Valent (Prevnar) [...] [id number] 02/09/2024 12:20 PM EDT Immunization Ancillary [facility] 200 [facility] [place] [address] Sp, Flu Shot Clinic 200 [facility] [place] [address] 02/09/2024 3:00 PM EDT Office Visit Hematology/Oncology [facility] 200 [facility] [place] [address] Marietta Salazar CRNP 400 [facility] [place] [id number] 02/09/2024 3:30 PM EDT Nurse Only Hematology/Oncology Treatment, [place] 200 [facility] [place] [address] Shilpa, Chair 10 Hem Onc [address] [place] [address] 04/29/2024 2:15 PM EST [facility] 132 [facility] [place] [address] Mendel Macedo MD 27 [place] [id number] 06/04/2024 3:40 PM EST Telemedicine Sleep Disorders Ctr [facility] 132 [facility] [place] [phone] Charmaine Mckeon, DO 132 [facility] [place] [address] 06/28/2024 1:00 PM EST Office Visit General Internal Medicine [facility] [place] 200 [facility] [place] [address] Patience Berrios PA-C 200 [facility] [place] [address] 09/13/2024 11:20 AM EDT Office Visit Nephrology, [facility] 200 [facility] [place] [address] Haresh Mark MD 200 [facility] [place] [address] 10/14/2024 2:00 PM EDT Nurse Only Ancillary [facility] [place] 200 [facility] [place] [address] [place], Nurse Annual Wellness [address] [place] [address] Health Maintenance Due Date Last Done Comments [...] 12/31/2024 01/01/2024, 024 CKD HGB USE SMARTSET 82994 01/30/202501/30, 01/31/2024, 12/15/2023, Additional history exists CKD PHOS USE SMARTSET 42319 01/30/2025 09/0 08/2023, 12/27/2023, 10/06/2021, Additional history [...] and were consensually agreed upon. Care Teams Tape Control Skin Or Spar Mill Operator Relationship Specialty Start Date End Date Jose M Seth MD [address] [place] [address] PCP - General Internal Medicine 11/21/11 documented as of this encounter
--- OUTSIDE RECORDS SUMMARY | 2024-02-28 21:41 | External Medical Summary | Summary of Care ---
Author Name Unknown Organization [facility] Address [address] [address] , [place] Care Team Providers Care Mysql Database Developer Name Role Phone Jose M Seth MD Primary Care Provider + Reason for Visit * Reason Comments Nutritional Services Documentation Encounter Details Date Type Department Care Team (Late st Contact Info) Description 02/01/2024 10:00 AM EDT Scheduled Telephone Nutrition Services, [address] 1 [facility], [address] [place] [address] Anais Gibson, RDN [address] [place] [address] Allergies Active Allergy Reactions Criticality Noted Date [...] needed. 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 Use [...] mRNA, LNP-s, No Pre serve, 2-Dose Series (Yesweplay) 02/18/2021,08/10/2020,07/06/2020 COVID-19, MRNA-LNP, 23-24, P F, 30 MCG/0.3 mL, 12 YRS AND ABOVE, IM (Ensygnia-Comircritical access hospitalGrab Media) 04/11/2023 Covid-19, Mrna, Lnp-s, Pf, B ivalent, 30 Mcg, IM, 12 yrs and above (Yesweplay) 03/22/2022 Pneumococcal Conjugate Vacc, 13 Valent (Prevnar) [...] encounter Miscellaneous Notes * Telephone Encounter - Anais Gibson RDN - 02/01/2024 11:31 AM EDT Clinical Nutrition Reached out to patient to respond to message left for this clinician to contact patient regarding nutrition materials received. Result of call: Spoke with patient. Patient related that she did receive nutrition education materials in the mail. Encouraged patient to continue to work on goals and to reach out with any future nutrition questions/concerns. No additional questions/concerns at this time. Electronically signed by: Anais Restrepo RDN, [facility]UTR[facility] documented in this encounter Plan of Treatment Upcoming Encounters Date Type Department Care Team (Late st Contact Info) Description 02/06/2024 1:30 PM EDT Telemedicine Psychiatry [place] 9 [place] [address] Zee Zapata MD 9 [place] [address] 02/09/2024 12:20 PM EDT Immunization Ancillary [facility] [place] [address] [place] [address] Sp, Flu Shot Clinic [address] [address] 02/09/2024 3:00 PM EDT Office Visit Hematology/Oncology Brian Massey [place] [address] [phone] Marietta [place] CRNP [address] [place] [address] AvJ[place] [address] 02/09/2024 3:30 PM EDT Nurse Only Hematology/Oncology Treatment, [place] [address] [place] [address] hSilpa, Chair 10 Hem Onc [facility] [address] [place] [address] 04/29/2024 2:15 PM EST Office Visit Urology, [facility] 132 [place] [address] Mendel Macedo MD [address] [place] [id number] 06/04/2024 3:40 PM EST Telemedicine Sleep Disorders [facility] 132 [facility] [place] [phone] Charmaine Mckeon, 132 [facility] [place] [address] 06/28/2024 1:00 PM EST Office Visit General Internal Medicine [facility] [place] [address] [place] [address] Patience Berrios PA-C [address] [place] [address] 09/13/2024 11:20 AM EDT Office Visit Nephrology, [facility] [address] [place] [address] Haresh Mark MD [address] [place] [address] 10/14/2024 2:00 PM EDT Nurse Only Ancillary [facility] [place] [address] [place] [address] [place], Nurse Annual Wellness [facility] [address] [place] [address] Health Maintenance Due Date Last Done Comments COVID-19 Vaccine ( season) 2024 04/11/2023, 03/22/2022, 02/18/2021, Additional history exists Influenza Vaccine (FLU shot) (#1) 2024 02/07/2023, 02/08/2022, 02/08/2021, Additional history exists GFR 07/30/2024 01/31/2024, 0705/2023, 12/15/2023, Additional history exists DXA Scan 09/20/2024 09/20/2021, 08/28, 10/23/2013, Additional history exists Adult Wellness Visit 10/08/2024 10/09/2023, 10/06/2022, 08/20/2021 Albumin/Creatinine Ratio 12/14/2024 024, 10/18/2022, 07/17/2020, Additional history exists HbA1c 12/14/2024 12/15/2023, 07/0 12/2023, 07/13/2022, Additional history exists Depression Monitoring 12/31/2024 01/01/2024, 024 CKD HGB USE SMARTSET 00888 01/30/202501/30, 01/31/2024, 12/15/2023, Additional history exists CKD PHOS USE SMARTSET 00110 01/30/2025 09/0 08/2023, 12/27/2023, 10/06/2021, Additional history [...] and were consensually agreed upon. Care Teams Mysql Database Developer Relationship Specialty Start Date End Date Jose M Seth MD 200 [place] [address] PCP - General Internal Medicine 11/21/11 documented as of this encounter
--- OUTSIDE RECORDS SUMMARY | 2024-02-28 21:42 | External Medical Summary ---
Author Name Unknown Address Unknown Organization [id number]:[facility] [place] [address] Laboratory Report Ordering Provider Test Date Status ZAHRA SANTORO 01/31/2024 13:53:53 Final Observation Date Value Abnormality Reference (Units ) Status SYNC LEUKOCYTES IN BLOOD BY AUTOMATED COUNT 01/31/2024 13:53:53 4.66 4.00-10.80 (K/uL) Final Segs 01/31/2024 13:53:53 66.6 40.0-75.0 (%) Final Lymphs % 01/31/2024 13:53:53 20.4 18.0-42.0 (%) Final Monos 01/31/2024 13:53:53 12.2 Above high normal 1.0-11.0 (%) Final Eosinophils 01/31/2024 13:53:53 0.6 0.0-6.0 (%) Final Basos 01/31/2024 13:53:53 0.2 0.0-2.0 (%) Final Absolute Segs 01/31/2024 13:53:53 3.10 1.80-7.70 (K/uL) Final Lymphs, absolute 01/31/2024 13:53:53 0.95 Below low normal 1.00-4.80 (K/ul) Final Monos, Abs 01/31/2024 13:53:53 0.57 0.00-1.10 (K/uL) Final Eos, Abs 01/31/2024 13:53:53 0.03 0.00-0.70 (K/uL) Final Basos, Abs 01/31/2024 13:53:53 0.01 0.00-0.20 (K/uL) Final Performing Location [facility] [place] [address]
--- OUTSIDE RECORDS SUMMARY | 2024-02-28 21:42 | External Medical Summary ---
Author Name Unknown Address Unknown Organization [id number]:[facility] [place] - [address] [place] [address] Laboratory Report Ordering Provider Test Date Status DIONNE SANTOROAMALIA 01/31/2024 13:53:53 Final Observation Date Value Abnormality Reference (Units ) Status Osmolality, Urine 01/31/2024 13:53:53 695 50 -1200 (mOsm/kg) Final Performing Location [facility] - [address] [place] [address]
--- OUTSIDE RECORDS SUMMARY | 2024-02-28 21:42 | External Medical Summary ---
Author Name Unknown Address Unknown Organization [id number]:[facility] [place] - [address] [place] [address] Laboratory Report Ordering Provider Test Date Status ZAHRA SANTORO 01/31/2024 13:53:53 Final Normal: <150 mg/ g creatinine
High: 150-500 mg/g creatinine
Very High: >500 mg/g creatinine
Nephrotic: >3000 mg/g creatinine Observation Date Value Abnormality Reference (Units ) Status Protein/Creatinine [Ratio] in Urine 01/31/2024 13:53:53 154 Above high normal <150 (mg/g ) Final Protein, Urine 01/31/2024 13:53:53 16 (mg/dL) Final Creatinine, Urine 01/31/2024 13:53:53 104 (mg/dL) Final Performing Location [facility] [place] - [address] [place] [address]
--- OUTSIDE RECORDS SUMMARY | 2024-02-28 21:42 | External Medical Summary | Summary of Care ---
Author Name Unknown Organization [facility] Address [address] [place] [address] Phone [phone] Care Team Providers Care Global Sales Manager Name Role Phone Jose M Seth MD Primary Care Provider + Reason for Visit * Reason Comments Hospital Follow-Up Encounter Details Date Type Department Care Team (Late st Contact Info) Description 01/31/2024 1:00 PM EDT Office Visit Nephrology, Brian Mas[facility] [address] [place] [address] Haresh Mark MD [address] [facility] [place] [address] Hyponatremia*; Elevated BUN; Stage 3a chronic kidney disease (HCC); Stage 3 chronic kidney disease, unspecified whether stage 3a or 3b CKD (HCC) Allergies Active Allergy Reactions Criticality Noted [...] as of this encounter (statuses as of 01/31/2024) Medications Medication Sig Dispensed Refills Start Date [...] needed. 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 [...] as of this encounter (statuses as of 01/31/2024) Active Problems Problem Noted Date Diagnosed Date [...] as of this encounter (statuses as of 01/31/2024) Resolved Problems Problem Noted Date Diagnosed Date [...] as of this encounter (statuses as of 01/31/2024) Immunizations Name Administration Dates Next Due COVID-19 mRNA, LNP-s, No Pre serve, 2-Dose Series ([employer]) 02/18/2021,08/10/2020,07/06/2020 COVID-19, MRNA-LNP, 23-24, P F, 30 MCG/0.3 mL, 12 YRS AND ABOVE, IM [facility] 04/11/2023 Covid-19, Mrna, Lnp-s, Pf, [...] Sign Reading Time Taken Comments Blood Pressure 105/55 01/31/2024 1:07 PM EDT Pulse 79 01/31/2024 1:07 PM EDT Temperature 36.4 C (97.6 F) 01/31/2024 1:05 PM ED T Respiratory Rate 18 01/31/2024 1:05 PM EDT Oxygen Saturation 95% 01/31/2024 1:05 PM EDT Inhaled Oxygen Concentration - - Weight 78.5 kg (173 lb) 01/31/2024 1:05 PM EDT Height - - Body Mass Index 32.69 10/09/2023 1:18 PM EDT documented in this encounter Progress Notes * Haresh Mark MD - 01/31/2024 1:40 PM EDT Subjective: Kathy Mccoy is a 78 year old female. Chief Complaint Patient presents with Hospital Follow-Up HPI: 78-year-old female who was seen in the hospital for hyponatremia. Discharge on December 23 with a serum sodium of During the hospitalization the lowest sodium recorded was 128. Three days later she was in outpatient clinic and sodium was 136 but BUN was elevated while on urea 15 g daily. She is currently drinking about 50 oz per day. Trying to raise the protein intake but overall seems adequate. In fact she was admitted 2 weeks prior also early November with hyponatremia and was discharged on Lasix and urea. However she could not get the urea because of insurance issues. Even in that admission sodium was only mildly low. At this time she is complaining of some constipation and questionable GI bleed. Denies nausea vomiting chronic pain orthopnea PND lower extremity edema shortness of breath. 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 100 Tab0 Diclofenac Sodium 1 % External Gel (Voltaren) [...] as needed for Nausea. 30 Tablet 0 FLUoxetine HCl 20 MG Oral [...] every night at bedtime. 90 Tablet 0 PROCARE ADULT BRIEFS X-LARGE MISC use as needed for urinary incontinence 2 Box 11 Incontinence Supply Disposable ([employer]) MISC Use as needed for incontinence. Dispense 2 tubs monthly DX R32 2 Each 5 Saline Nasal [facility] 0.65 % Nasal Solution ([place] Nasal [facility]) Two sprays in each nostril as needed [...] COVID-19 mRNA Vaccine 12 years and above [employer] 30 MCG/0.3 ML IM SUSP Inject into a large muscle. (Patient not taking: Reported on 12/15/2023) 0.3 mL 0 Commode Bedside Bedside commode. Use as needed to use restroom. 1 Each 0 No current facility-administered medications for this visit. Past Medical History: Diagnosis Date Arthritis of knee BIPOLAR AFFEC, DEPR-MOD 06/29/2009 Bipolar I disorder, most recent episode depressed (HCC) Breast cancer ([facility]) 02/26/2020 Invasive Ductal Carcinoma left breast Breast [...] performed by Vijaya Samano MD at [facility] CARPAL TUNNEL SURGERY 1996 left and right CATARACT SURGERY,COMPLEX Bilateral 10/2014 CHEMOTHERAPY 04/20/2020 completed 10/28/2020 neoadjuvant chemotherapy Adrianmycin & Cytoxan. Followed by 11 of 12 cycles of Taxol COLONOSCOPY W/ BIOPSY (RECTUM) 09/08/2010 polyp x1 , skin tags, path repeat in 5 years COLONOSCOPY, DIAGNOSTIC (RECTUM) 04/13/2016 normal/[facility] EGD, FLEXIBLE, DIAGNOSTIC 04/13/2016 acid reflux/[facility] EGD, FLEXIBLE, DIAGNOSTIC 02/24/2022 normal / ESOPHAGOGASTRODUODENOSCOPY (EGD), FLEXIBLE, TRANSORAL, DIAGNOSTIC performed by Rober Redding MD at ENDOSCOPY [facility] IDENTIFY SENTINEL NODE, RADIOACTIVE TRACER Left 12/30/2020 INJECTION PROCEDURE FOR IDENTIFICATION SENTINEL NODE performed by Vijaya Samano MD at [facility] INFORMATION 11/13/2012 11/13/2012 insertion of A-port - left shoulder [facility] Dr. Vijaya Samano MASTECTOMY, PARTIAL Left 12/30/2020 MASTECTOMY PARTIAL performed by Vijaya Samano MD at [facility] PROCEDURE - GENERAL PROCEDURE - GENERAL N/A 04/08/2020 iNSERTION OF VENOUS ACCESS(CHEST) RADIATION THERAPY Left 04/13/2021 6640 cGy to left breast, supraclavicular area, and axilla REMOVE GALLBLADDER 1985 REPAIR INITIAL INGUINAL HERNIA REDUCIBLE AGE 5 OR MORE 2007 TOTAL ABD HYSTERECTOMY W/WO REMOVAL OF TUBE(S) 09/24/2012 TOTAL ABDOMINAL HYSTERECTOMY WITH OR WITHOUT TUBES AND OVARIES performed by Jacey Jewell MD at [facility] TOTAL HIP REPLACEMENT & PROSTHESIS Left [...] tx: radiation therapy Lung cancer Father TOB+, trim mechanic, abestos Heart Disorder Sister Dionna Murmur [...] pets No mold Lives alone. Daughter is rotogravure press operator. Another daughter in [place]. Social Determinants of Health Financial Resource Strain: [...] Stability Do you currently live in a fci or have no steady place to sleep [...] ages0-17 years): Not on file Review of Systems: Positive for constipation and some worries about GI bleed. Otherwise 12 systems reviewed and negative OBJECTIVE: Physical Exam: BP 105/55 | Pulse 79 | Temp 36.4 C (97.6 F) | Resp 18 | Wt 78.5 kg (173 lb) | SpO2 95% | BMI 32.69 kg/m | BSA 1.84 m General: alert and no distress Head: Normocephalic, No masses, lesions, tenderness or abnormalities Nose: no mucosal erythema, no mucosal edema Neck: supple, no JVD Heart: regular rate & rhythm, positive for mild systolic murmur, Lungs: normal respiratory rate and rhythm, lungs clear to auscultation Abdomen: abdomen soft, non-tender, and obese Extremities: no edema Neuro Exam: alert & oriented x 3 with fluent speech, no focal motor/sensory deficits Skin: skin color, texture, turgor are normal, no rashes or significant lesions Recent Labs Units 12/27/23 1242 12/15/23 1536 12/04/23 1001 SODIUM - [facility] mmol/L 136 128* 135 POTASSIUM - [facility] mmol/L 4.9 4.7 4.6 POTASSIUM, RANDOM URINE - [facility] mmol/L -- 34.0 -- CHLORIDE - [facility] mmol/L 97* 84* 97* CO2 - [facility] mmol/L 29 33* 29 BUN - [facility] mg/dL 53* 59* 18 CREATININE - [facility] mg/dL 0.9 1.5* 0.9 ESTIMATED GLOMERULAR FILTRATION RATE - [facility] mL/min 68 36* 69 Recent Labs Units 12/15/23 1536 12/04/23 1001 08/15/23 1115 02/03/23 1434 12/09/22 1554 HGB g/dL 9.7* 8.9* 10.6* < > 10.1* FERRITIN - [facility] ng/mL -- 280* 249* -- 248* TRANSFERRIN SATURATION PERCENT - [facility] % -- 16 17 -- 20 < > = values in this interval not displayed. Recent Labs Units 12/27/23 1242 12/15/23 1536 12/04/23 1001 10/14/22 1404 07/13/22 1507 CALCIUM - [facility] mg/dL 9.9 9.8 9.3 < > 9.4 PHOSPHORUS - [facility] mg/dL 3.0 -- -- -- -- 25-HYDROXY VITAMIN D - [facility] ng/mL -- 46 -- -- 38 < > = values in this interval not displayed. Recent Labs Units 12/15/23 1536 12/04/23 1001 07/13/22 1507 HEMOGLOBIN A1C - [facility] % 5.4 5.3 5.1 Recent Labs Units 12/15/23 1536 10/18/22 1509 ALBUMIN / CREATININE RATIO, URINE - [facility] mg/g Creat 48* 40* Assessment: Hyponatremia (Primary) 2 [id number] hospital admission for hyponatremia although both times the hyponatremia problem waspretty mild with sodium in the 128 range. Although this is abnormal unlikely to be the explanation of her nonspecific symptoms she had at the time. 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 She is currently on urea 15 g daily but the most important management is still fluid restriction. She never drank lot of liquids so this has not been a challenge to keep 50 oz. She actually feels she can drink even less than that. Because of confusion she thought the 50 oz was the minimum and she was trying to drink more than that. However I did clarify that 50 oz is the maximum amount of liquid she can drink per day. Her food intake is not that great so she is not having problem being less than 2 g per day of salt. Her BUN is quite high at 50+ so I will try my best to manage her without the urea powder. Labs as below today and further management will be after this. - CBC WITH WBC DIFFERENTIAL; Future; Expected date: 01/31/2024 - IRON SCREEN, INCLUDING TIBC; Future; Expected date: 01/31/2024 - OSMOLALITY, URINE; Future; Expected date: 01/31/2024 - PROTEIN/ CREATININE RATIO, URINE; Future; Expected date: 01/31/2024 - RENAL FUNCTION PANEL; Future; Expected date: 01/31/2024 - URINALYSIS WITH MICROSCOPIC EXAM; Future; Expected date: 01/31/2024 - SODIUM, RANDOM URINE; Future; Expected date: 01/31/2024 - OSMOLALITY, SERUM; Future; Expected date: 01/31/2024 - FERRITIN; Future; Expected date: 01/31/2024 Elevated BUN She is currently on urea and does have elevated BUN of 50+. Depending on the lab above we will see if we can manage her without urea. Stage 3a chronic kidney disease (HCC) She has history of severe acute kidney injury secondary to ATN requiring dialysis briefly many years ago. Fortunately she recovered with near normal kidney function. However she is extremely worried about kidney failure She is currently having some constipation with some worries about blood in the stool. Will do CBC as well as iron screen to assess for occult GI bleed - CBC WITH WBC DIFFERENTIAL; Future; Expected date: 01/31/2024 - IRON SCREEN, INCLUDING TIBC; Future; Expected date: 01/31/2024 - FERRITIN; Future; Expected date: 01/31/2024 Follow Up: Return in about 6 months (around 07/30/2024) for Clinic Visit. | For: Clinic Visit Haresh Mark MD documented in this encounter Nursing Notes * Paola Jung RN - 01/31/2024 1:08 PM EDT Hospital discharge visit today. Daughter present for visit today.Last lab tests done in November. Following 50 oz fluid restriction. Does drink protein shakes as well. Doing well. Did attend [facility] fair after hospital stay. documented in this encounter Plan of Treatment Upcoming Encounters Date Type Department Care Team (Late st Contact Info) Description 02/06/2024 1:30 PM EDT Telemedicine Psychiatry [place] [address] [place] [phone] Zee Zapata MD [address] [place] [address] 04/29/2024 2:15 PM EST Office Visit Urology, [facility] [address] [facility] [place], [place] [address] Mendel Macedo MD [address] [place] [address] 06/04/2024 3:40 PM EST Telemedicine [facility] [address] [place] [phone] Charmaine Mckeon DO [address] [facility] [place] [address] 06/28/2024 1:00 PM EST Office Visit General Internal Medicine [facility] [place] [address] [place] [address] Patience Berrios PA-C [address] [facility] [place] [address] 09/13/2024 11:20 AM EDT Office Visit Nephrology, [facility] [address] [facility] [place] [address] Haresh Mark MD [address] [facility] [place] [address] 10/14/2024 2:00 PM EDT Nurse Only Ancillary [facility] [place] [address] [facility] [place] [address] Shilpa Nurse [facility] [address] [place] [address] Pending Results Name Type Priority Associated Diagnoses Date /Time IRON SCREEN, INCLUDING TIBC Lab Routine Stage 3a chronic kidney disease (HCC) Hyponatremia 01/31/2024 1:53 PM EDT OSMOLALITY, URINE Lab Routine Hyponatremia 01/31/2024 1:53 PM EDT PROTEIN/ CREATININE RATIO, URINE Lab Routine Hyponatremia 01/31/2024 1:53 PM EDT RENAL FUNCTION PANEL Lab Routine Hyponatremia 01/31/2024 1:53 PM EDT URINALYSIS WITH MICROSCOPIC EXAM Lab Routine Hyponatremia 01/31/2024 1:53 PM EDT SODIUM, RANDOM URINE Lab Routine Hyponatremia 01/31/2024 1:53 PM EDT OSMOLALITY, SERUM Lab Routine Hyponatremia 01/31/2024 1:53 PM EDT FERRITIN Lab Routine Stage 3a chronic kidney disease (HCC) Hyponatremia 01/31/2024 1:53 PM EDT Scheduled Orders Name Type Priority Associated Diagnoses Orde r Schedule IRON SCREEN, INCLUDING TIBC Lab Routine Stage 3a chronic kidney disease (HCC) Hyponatremia Expected: 01/31/2024 (Approximate), Expires: 07/29/2024 OSMOLALITY, URINE Lab Routine Hyponatremia Expected: 01/31/2024 (Approximate), Expires: 07/29/2024 PROTEIN/ CREATININE RATIO, URINE Lab Routine Hyponatremia Expected: 01/31/2024 (Approximate), Expires: 07/29/2024 RENAL FUNCTION PANEL Lab Routine Hyponatremia Expected: 01/31/2024 (Approximate), Expires: 07/29/2024 URINALYSIS WITH MICROSCOPIC EXAM Lab Routine Hyponatremia Expected: 01/31/2024 (Approximate), Expires: 07/29/2024 SODIUM, RANDOM URINE Lab Routine Hyponatremia Expected: 01/31/2024 (Approximate), Expires: 07/29/2024 OSMOLALITY, SERUM Lab Routine Hyponatremia Expected: 01/31/2024 (Approximate), Expires: 07/29/2024 FERRITIN Lab Routine Stage 3a chronic kidney disease (HCC) Hyponatremia Expected: 01/31/2024 (Approximate), Expires: 07/29/2024 Health Maintenance Due Date Last Done Comments COVID-19 Vaccine ( season) 2024 04/11/2023, 03/22/2022, 02/18/2021, Additional history exists Influenza Vaccine (FLU shot) (#1) 2024 02/07/2023, 02/08/2022, 02/08/2021, Additional history exists DXA Scan 09/20/2024 09/20/2021, 08/28, 10/23/2013, Additional history exists Adult Wellness Visit 10/08/2024 10/09/2023, 10/06/2022, 08/20/2021 HbA1c 12/14/2024 12/15/2023, 07/0 12/2023, 07/13/2022, Additional history exists Depression Monitoring 12/31/2024 01/01/2024, 024 DTap/Tdap Vaccines (3 - Td or [...] as of this encounter Visit Diagnoses Diagnosis Hyponatremia- Primary Hyposmolality and/or hyponatremia Elevated BUN Other abnormal blood chemistry Stage 3a chronic kidney disease (HCC) Stage 3 chronic kidney disease, unspecified whether stage 3a or 3b CKD (HCC) documented in this encounter Advance Directives * Full Code (Latest Code Status on File) Date Activated Date Inactivated Comments 09/24/2012 8:15 PM 10/02/2012 7:35 PM This order re flects the patients wishes and were consensually agreed upon. Care Teams Global Sales Manager Relationship Specialty Start Date End Date Jose M Seth MD [address] [place] [address] PCP - General Internal Medicine 11/21/11 documented as of this encounter
--- OUTSIDE RECORDS SUMMARY | 2024-02-28 21:42 | External Medical Summary ---
Author Name Unknown Address Unknown Organization K01:[facility]ATORY [facility] [place] - [address] [place] [address] Laboratory Report Ordering Provider Test Date Status ZAHRA SANTORO 01/31/2024 13:53:53 Final Observation Date Value Abnormality Reference (Units ) Status Iron 01/31/2024 13:53:53 73 33-151 (ug /dL) Final Iron-binding capacity 01/31/2024 13:53:53 316 250-425 (ug/dL) Final Transferrin Sat % 01/31/2024 13:53:53 23 15 -55 (%) Final Performing Location [facility]ATORY [facility] [place] - [address] [address]
--- OUTSIDE RECORDS SUMMARY | 2024-02-28 21:42 | External Medical Summary ---
Author Name Unknown Address Unknown Organization K01:[facility]ORY [facility] [place] - [address] [place] [address] Laboratory Report Ordering Provider Test Date Status ZAHRA SANTORO 01/31/2024 13:53:53 Final Observation Date Value Abnormality Reference (Units ) Status Sodium, Urine 01/31/2024 13:53:53 <20 (mmol/ L) Final Performing Location [facility] - [address] [place] [address]
--- OUTSIDE RECORDS SUMMARY | 2024-02-28 21:42 | External Medical Summary | Summary of Care ---
Author Name Unknown Organization [facility] Address [address] [place] [address] Phone [phone] Care Team Providers Care Straw Hat Presser Name Role Phone Jose M Seth MD Primary Care Provider + Reason for Visit * Reason Comments Genetic Counseling * Evaluate & Treat - Unlimited Visits (Within 10 days (routine)) - Authorized Specialty Diagnoses / Procedures Referred By Nelia noble Referred To Contact Medical Genetics / Hematology Oncology Diagnoses History of breast cancer Marietta Salazar CRNP [address] [place] [address] Referral ID Status Reason Start Date Expiration Date Visits Requested Visits Authorized [id number] Authorized Specialty Services Required [phone] Encounter Details Date Type Department Care Team (Late st Contact Info) Description 01/25/2024 11:00 AM EDT Telemedicine Genetics HemOnc, [facility] [address] [place] [address] Rashaad Jovel, MS [address] [facility] [address] History of endometrial cancer*; Triple negative breast cancer (HCC) Allergies Active Allergy Reactions Criticality Noted [...] as of this encounter (statuses as of 01/25/2024) Medications Medication Sig Dispensed Refills Start Date [...] needed. 100 Tab 04/15/2020 Active Saline Nasal Canadian 0.65 % Nasal Solution ([place] Nasal Canadian) Two sprays in each nostril as needed [...] Active Commode BedsideIndications:C hronic diastolic heart failure (HCC),longterm current use of diuretic Bedside commode. Use [...] as of this encounter (statuses as of 01/25/2024) Active Problems Problem Noted Date Diagnosed Date [...] as of this encounter (statuses as of 01/25/2024) Resolved Problems Problem Noted Date Diagnosed Date Resolved Date Uncomplicated asthma 11/15/2022 07/31/2 024 Overview: More specified on pl Food [...] 10/15/13 PCP: Jose M Seth MD Pharmacy: [facility] [place] [facility] 08/09/2013 12/16/2015 Dementia 07/19/2013 [...] as of this encounter (statuses as of 01/25/2024) Immunizations Name Administration Dates Next Due COVID-19 mRNA, LNP-s, No Pre serve, 2-Dose Series ([employer]) 02/18/2021,08/10/2020,07/06/2020 COVID-19, MRNA-LNP, 23-24, P F, 30 MCG/0.3 mL, 12 YRS AND ABOVE, IM ([facility]) 04/11/2023 Covid-19, Mrna, Lnp-s, Pf, B ivalent, 30 Mcg, IM, 12 yrs and above ([employer]) 03/22/2022 Pneumococcal Conjugate Vacc, 13 Valent (Prevnar) [...] this encounter Patient Instructions * Patient Instructions* Rashaad Jovel MS - 01/25/2024 11:43 AM EDT You spoke with Rashaad Jovel MS, [facility] on 01/25/2024 for a Cancer Genetics Risk Assessment. TODAY'S SUMMARY If you have questions about your risk assessment, evaluation, testing process, or results, contact our clinic at [phone] or send a [employer] message. You agreed to complete genetic testing today. Results are expected in approximately 3 weeks from sample collection and will appear in the [employer] portal under "Test Results." I will contact you with your results. You can request an electronic copy of your report through [facility]'s secure web-portal. Insurance Coverage: The laboratory ([employer]) will complete prior authorization for genetic testing, if required. If your estimated out of pocket expense after insurance processing is >$100, [employer] will contact you to discuss options based on your specific financial situation. Visit this link for more information or contact the laboratory billing department at [phone] or [email or web address]. Sample Collection: You will have 1 tube of blood drawn for this test. Please wait 2 business days before going to any [facility] lab to ensure your order has been signed. Lab order: Multi Cancer Panel, [facility] Ordering Provider: JA Haney. For assistance finding [facility] locations and hours, visit: [email or web address] Read more about genetic testing here: Hereditary Cancer Genetic Testing - Patient Guide For any genetic test, there are three types of results. 1. Negative Result: A mutation that causes increased risk for cancer was not found in you. 2. Positive Result: A genetic risk factor for cancer was found. Based on your specific result, thisinformation could change your medical care. If any significant findings are reported on your testing, we may recommend a follow up visit 3. Inconclusive Result (Variant of Uncertain Significance found): An innocent until proven guilty genetic change was detected, but more research is needed to learn if it increases your chances of developing cancer or not. What should I know about genetics and cancer? Cancer is a common disease, and most often happens by chance. In some families, we can see multiplecases of sporadic cancers, because cancer becomes more common as we age and as people are exposed to different environmental risk factors over time. Only 5-10% of cancers happen because of a genetic mutation that runs in the family. Having a mutation does not mean you will get cancer; it just means you have a higher chance to get cancer than other people. Genetic Information Nondiscrimination Act of 2008: This federal law protects you from discrimination based on your genetic information and applies to health insurance. It is illegal for your health insurer to use family health history and/or genetic test results as a reason to deny you health insurance, or decide how much you pay for your health insurance. RUPESH does not apply to life, disability and long-term care insurance. For more information, go to GINAhelp.org Sincerely, Rashaad Jovel MS, [facility] -- Licensed, Certified Genetic Counselor Cancer Genetics Risk Assessment Clinic Department of Genomic [facility] at [facility] (P) [phone] | (F) [phone] | (E) [email or web address] documented in this encounter Progress Notes * Rashaad Jovel DevineMS harjeet - 01/25/2024 11:00 AM EDT Images from the original note were not included. Cancer Genetic Risk Assessment Clinic at [facility] | | Email: [email or web address] Location: [place] [address] Dept. Referring Provider: EZEQUIEL Leal* Name: Kathy Mccoy Date: 01/25/2024 - 11:00 AM EDT Present for consult: Rashaad Devi MS, [facility] Visit Type: Phone. The patient is located in the [facility]. The treating clinician is located not in a hospital location. After connecting to the patient via telephone, the patient was identified by name and date of . Patient was then informed that this was a telephone call only visit. The patient agreed to participate. Visit Disposition: Routine follow-up Total call duration was 30 minutes. REASON FOR VISIT: Evaluation for Hereditary Cancer Syndrome HPI: Kathy Mccoy is a 78 year old female assigned at who has been referred to the Cancer Genetics Risk Assessment Clinic due to a personal history of breast cancer and uterine cancer. ASSESSMENT: Kathy Mccoy has a personal history of breast cancer and uterine cancer that is somewhat concerning for a hereditary predisposition. NCCN criteria for genetic testing for Hereditary Breast and Ovarian Cancer (HBOC) is met. Verbal consent for genetic testing obtained. PLAN: Test Ordered: Multi-Cancer Panel + Expanded Breast/Grant Writer Panel at [facility] (74 genes) Genes Included: AIP, ALK, APC, OCTAVIO, AXIN2, BAP1, BARD1, BLM, BMPR1A, BRCA1, BRCA2, BRIP1, CDC73, CDH1, CDK4, CDKN1B, CDKN2A (p14ARF), CDKN2A (z19OLT6v), CHEK2, CTNNA1, DICER1, EGFR, EPCAM, FH, FLCN, GREM1, HOXB13, KIT, LTZR1, MAX, MBD4, MEN1, MET, MITF, MLH1, MSH2, MSH3, MSH6, MUTYH, NF1, NF2, NTHL1, PALB2, PDGFRA, PMS2, POLD1, POLE, POT1, HYCME9D, PTCH1, PTEN, RAD51C, RAD51D, RB1, RET, SDHA, SDHAF2, SDHB, SDHC, SDHD, SMAD4, SMARCA4, SMARCB1, SMARCE1, STK11, SUFU, RZSB670, TP53, TSC1, TSC2, VHL+ FANCC, FANCM, NBN, RECQL Blood sample to be collected at a later date; results anticipated in 3 weeks from sample collection. Results disclosure preferred by: MyG and phone. PAST MEDICAL HISTORY: Breast Hx: Personal history of breast cancer diagnosed age 74; Invasive Ductal Carcinoma, ER-, HI-,and Her2/arleth-; Treatment: Surgery, Radiation, and Chemotherapy. Grant Writer/ Hx: Personal history of uterine cancer diagnosed age 66; Pathology: endometrioid adenocarcinoma; Treatment: [facility]/BSO. . Gastro Hx: Cologuard completed 2015, negative. Hx of tubular adenoma Derm Hx: No history of skin cancer. Other Hx: Kidney disease stage 3 Past Medical History: Diagnosis Date Arthritis of [...] OPEN performed by Vijaya Samano MD at [facility] CARPAL TUNNEL SURGERY 1996 [...] performed by Rober Redding MD at [facility] IDENTIFY SENTINEL NODE, RADIOACTIVE TRACER Left 12/30/2020 INJECTION PROCEDURE FOR IDENTIFICATION SENTINEL NODE performed by Vijaya Samano MD at [facility] INFORMATION 11/13/2012 11/13/2012 insertion of A-port - left shoulder [facility] Dr. Vijaya Samano MASTECTOMY, PARTIAL Left 12/30/2020 MASTECTOMY PARTIAL performed by Vijaya Samano MD at [facility] PROCEDURE - GENERAL PROCEDURE [...] OVARIES performed by Jacey Jewell MD at [facility] TOTAL HIP REPLACEMENT & PROSTHESIS Left [...] Vaping Use Vaping status: Never Used Substance Use Topics Alcohol use: No Drug use: No FAMILY HISTORY: This self-reported family history was collected in the absence of complete medical records. ?If the family history changes or more information is obtained, the patient was asked to contact our clinic as this may alter the assessment and recommendations.? Per patient report, no relatives have had genetic testing for inherited cancer risk. Family History Problem Relation Name Age of Onset Cervical Cancer Mother tx: radiation therapy Lung cancer Father TOB+, assembly machine set up mechanic, [employer]est[employer] Lung cancer Brother Mane w/ brain mets Lung cancer Brother Sina TOB+ PEDIGREE: Cancer Genetics Pedigree Image RISK ASSESSMENT & CONSULT SUMMARY: I recommended genetic testing for Kathy Mccoy based on the personal history of breast cancer and uterine cancer. We discussed the timing and utility of low-cancer panels. We briefly discussed that a broader panelcould include genes associated with breast cancer and uterine cancer risk, given the reported family history. Kathy elected a broad, multi-cancer panel. Breast Cancer: 7-10% of breast cancers, regardless of age at diagnosis or family history, are thought to be hereditary (Hu et al., 202). NCCN recommends genetic testing for individuals with a personal history of triple negative breast cancer at any age. Hereditary breast cancer often presents in a family with early onset disease (<45y), bilateral breast cancer, a combination of breast, pancreas, prostate, and/or ovarian on one side of the family,or multiple cases of breast cancer (3 or more) on the same side of the family. The BRCA1 and BRCA2 genes remain the most common findings in hereditary breast cancer risk, accounting for 25-50% of all positive results identified. Additional high and moderate risk genes include: OCTAVIO, BARD1, CHEK2, PALB2, RAD51C, and RAD51D. Additional genes included on hereditary breast cancer panels include much less common findings such as: CDH1, NF1, PTEN, STK11, and TP53 as these are typically syndromic in presentation. Uterine/Endometrial Cancer: The National Comprehensive Cancer Network (NCCN) recommends the consideration of germline multi-gene panel (MGPT) evaluation for Roberts syndrome and other less common hereditary cancer syndromes for all individuals with endometrial cancer aged > 50y at diagnosis. MGPT identifies a pathogenic variant in up to 9.2%-14% of patients with endometrial cancer across all ages. We discussed that the vast majority of endometrial cancers, even with abnormal IHC, happen due to chance, or sporadic, factors. Only 2-3% of all endometrial cancers are associated with genetic risk, with the most common cause being Roberts syndrome. In a small number of cases (<1%), there may be angelika rare hereditary risk factor involved, such as a POLE or PTEN variant. Suspicion for an underlying genetic syndrome increases when cancers are diagnosed at young ages (<45-50y), or there is a pattern of GI/ cancers in a family. We reviewed that multiple factors influence the risk of developing endometrial cancer, including. GENETIC TEST EDUCATION: We discussed the risks, benefits, and limitations testing for hereditary cancer syndromes using a multigene panel. Signs of inherited cancer risk: multiple family members with related cancers, cancer in several generations of one side of a family, early-onset cancers (<45y), individuals with >1 cancer diagnosis. Most hereditary cancer conditions are inherited in an autosomal dominant pattern. Cancer riskscan differ between males and females in the same family who share a disease-causing variant. Nature of genetic risk: Individuals with a pathogenic variant in a cancer- related gene may have significantly higher cancer risk. Some cancers may be difficult to detect and/or treat. Identifying those at high risk may warrant additional screening, surveillance, and interventions which could aid inrisk- reduction and early diagnosis, thereby increasing the chances of successful treatment and survival. Nuances of genetic testing: Some genes are well-described with specific screening and management recommendations from national experts (e.g., NCCN). Testing may include newly discovered genes where cancer risk and management guidelines are not well understood or defined. Some cancer types do not have adequate screening available at this time. Genetic Information Non-discrimination Act (RUPESH) detailed in AVS. This 2008 law has provisions against discrimination based on genetic status for employment and health insurance; it does not cover other insurance (e.g. life insurance, long- term disability insurance). Discussed possible results: Positive result: Pathogenic or Likely Pathogenic Variant identified. Medical management dependent upon the gene in which the P/LP variant was identified and will be discussed at the time of result disclosure. Discussed potential surveillance and early-detection options, risk-reducing medications, and surgical risk reduction options. Discussed that there may be risk to close relatives to have the same genetic variant. Negative result (No variants identified): Medical management and cancer screening will be based on family history and physicians recommendations. Variant of Uncertain Significance ("VUS" identified): Medical management would be the same as a negative result as many VUS are eventually reclassified as benign. PSYCHOSOCIAL HISTORY: We discussed the possible psychological implications of genetic testing, issues of family dynamics,and concerns regarding confidentiality, insurance coverage, and genetic discrimination. Motivation for testing: concerned about risk to family members Family communication: no concerns. Family Sharing: To be addressed at result disclosure. Consent: I provided an opportunity for the patient to ask questions. We obtained the proper consentand confirmation of the patient's understanding of the information discussed. Rashaad Jovel MS, [facility] Licensed, Certified Genetic Counselor This note is shared with Kathy Mccoy electronically. ICD-10-CM 1. History of endometrial cancer Z85.42 2. Triple negative breast cancer (HCC) C50.919 documented in this encounter Miscellaneous Notes * Addendum Note - Rashaad Jovel MS - 01/25/2024 11:43 AM EDTAddended by: RASHAAD JOVEL on: 01/25/2024 11:43 AM Modules accepted: Orders documented in this encounter Plan of Treatment Upcoming Encounters Date Type Department Care Team (Late st Contact Info) Description 01/31/2024 1:00 PM EDT Office Visit NephBrian broderick [address] [place] [address] Haresh Mark MD [address] [place] [address] 02/06/2024 1:30 PM EDT Telemedicine Psychiatry [place] Srinivasan [address] [place] [address] Zee Zapata MD [address] [place] [address] 04/29/2024 2:15 PM EST Office Visit Urology, [facility] [address] [facility] [place] [address] Mendel Macedo MD [address] [place] [id number] 06/04/2024 3:40 PM EST Telemedicine Sleep Disorders Ctr [facility] [address] [facility] [place] [address] Charmaine Mckeon DO [address] [facility] [place] [address] 06/28/2024 1:00 PM EST Office Visit General Internal Medicine [facility] [address] [place] [address] Patience Berrios, DAVIS [address] [facility] [place] [address] 10/14/2024 2:00 PM EDT Nurse Only Ancillary [facility] [address] [facility] [place] [address] Shilpa, Nurse Annual Wellness [address] [place] [address] Health Maintenance Due Date Last Done Comments [...] this encounter Visit Diagnoses Diagnosis History of endometrial cancer- Primary Personal history of malignant neoplasm of other parts of uterus Triple negative breast cancer (HCC) documented in this encounter Advance Directives * Full Code (Latest Code Status on File) Date Activated Date Inactivated Comments 09/24/2012 8:15 PM 10/02/2012 7:35 PM This order re flects the patients wishes and were consensually agreed upon. Care Teams Straw Hat Presser Relationship Specialty Start Date End Date Jose M Seth MD [address] [place], [place] [address] PCP - General Internal Medicine 11/21/11 documented as of this encounter
--- OUTSIDE RECORDS SUMMARY | 2024-02-28 21:42 | External Medical Summary | Summary of Care ---
Author Name Unknown Organization [facility] Address [address] [place] [address] Phone [phone] Care Team Providers Care Seat Scooper Machine Name Role Phone Jose M Seth MD Primary Care Provider + Reason for Visit * Reason Comments Genetic Counseling * Evaluate & Treat - Unlimited Visits (Within 10 days (routine)) - Authorized Specialty Diagnoses / Procedures Referred By Nelia noble Referred To Contact Medical Genetics / Hematology Oncology Diagnoses History of breast cancer Marietta Salazar CRNP [address] [place] [address] Referral ID Status Reason Start Date Expiration Date Visits Requested Visits Authorized [id number] Authorized Specialty Services Required 3 [phone] Encounter Details Date Type Department Care Team (Late st Contact Info) Description 01/25/2024 11:00 AM EDT Telemedicine Genetics HemOnc, [facility] [address] [place] [address] Rashaad Jovel, MS [address] [facility] [address] History of endometrial cancer*; Triple [...] needed. 100 Tab 04/15/2020 Active Saline Nasal [place] 0.65 % Nasal Solution ([place] Nasal [place]) Two sprays in each nostril as [...] Jose M Seth MD Pharmacy: Mar[facility] 08/09/2013 12/16/2015 Dementia 07/19/2013 2017 Encounter for [...] mRNA, LNP-s, No Pre serve, 2-Dose Series ([employer]) 02/18/2021,08/10/2020,07/06/2020 COVID-19, MRNA-LNP, 23-24, P F, 30 MCG/0.3 mL, 12 YRS AND ABOVE, IM ([facility]) 04/11/2023 Covid-19, Mrna, Lnp-s, Pf, B ivalent, 30 Mcg, IM, 12 yrs and above ([employer]) 03/22/2022 Pneumococcal Conjugate Vacc, 13 Valent (Prevnar) [...] EDT You spoke with Rashaad Jovel MS, [facility] on 01/25/2024 for a Cancer Genetics Risk Assessment. TODAY'S SUMMARY If you have questions about your risk assessment, evaluation, testing process, or results, contact our clinic at [phone] or send a [facility] message. You agreed to complete genetic testing today. Results are expected in approximately 3 weeks from sample collection and will appear in the [facility] portal under "Test Results." I will contact you with your results. You can request an electronic copy of your report through [facility] secure web-[facility]al. Insurance Coverage: The laboratory ([facility]) will complete prior authorization for genetic testing, if required. If your estimated out of pocket expense after insurance processing is >$100, [employer] will contact you to discuss options based on your specific financial situation. Visit this link for more information or contact the laboratory billing department at [phone] or [email or web address]. Sample Collection: You will have 1 tube of blood drawn for this test. Please wait 2 business days before going to any [facility] lab to ensure your order has been signed. Lab order: Multi Cancer Panel, [facility] Ordering Provider: JA Haney. For assistance finding [email or web address] Laboratory locations and hours, visit: [email or web address] Read more about genetic testing here: Hereditary [...] go to [email or web address] Sincerely, Rashaad Jovel MS, [facility] -- Licensed, Certified Genetic Counselor Cancer Genetics Risk Assessment Clinic Department of Genomic Health at [facility] (P) [phone] | (F) [phone] | (E) [email or web address] documented in this encounter Progress Notes * Rashaad Jovel DevineMS harjeet - 01/25/2024 11:00 AM EDT Images from the original note were not included. Cancer Genetic Risk Assessment Clinic at [facility] | | Email: [email or web address] Location: [place] [address] Dept. Referring Provider: EZEQUIEL Leal* Name: Kathy Mccoy Date: 01/25/2024 - 11:00 AM EDT Present for consult: Rashaad Devi MS, [facility] Visit Type: Phone. The patient is located in the [facility]. The treating clinician is located not in [...] PLAN: Test Ordered: Multi-Cancer Panel + Expanded Breast/Social Media Marketer Panel at [facility] (74 genes) Genes Included: AIP, ALK, APC, OCTAVIO, AXIN2, BAP1, BARD1, BLM, BMPR1A, BRCA1, BRCA2, BRIP1, CDC73, CDH1, CDK4, CDKN1B, CDKN2A (p14ARF), CDKN2A (m55GXC4h), CHEK2, CTNNA1, DICER1, EGFR, EPCAM, FH, FLCN, GREM1, HOXB13, KIT, LTZR1, MAX, MBD4, MEN1, MET, MITF, MLH1, MSH2, MSH3, MSH6, MUTYH, NF1, NF2, NTHL1, PALB2, PDGFRA, PMS2, POLD1, POLE, POT1, EWDRM6M, PTCH1, PTEN, RAD51C, RAD51D, RB1, RET, SDHA, SDHAF2, SDHB, SDHC, SDHD, SMAD4, SMARCA4, SMARCB1, SMARCE1, STK11, SUFU, RHZR943, TP53, TSC1, TSC2, VHL+ FANCC, FANCM, NBN, RECQL Blood sample to be collected at a later date; results anticipated in 3 weeks from sample collection. Results disclosure preferred by: MyG and phone. PAST MEDICAL HISTORY: Breast Hx: Personal history of breast cancer diagnosed age 74; Invasive Ductal Carcinoma, ER-, [place]-,and Her2/arleth-; Treatment: Surgery, Radiation, and Chemotherapy. Social Media Marketer/ Hx: Personal history of uterine cancer diagnosed [...] OPEN performed by Vijaya Samano MD at [facility] CARPAL TUNNEL SURGERY 1996 left and right CATARACT SURGERY,COMPLEX Bilateral 10/2014 CHEMOTHERAPY 04/20/2020 completed 10/28/2020 neoadjuvant chemotherapy Adrianmycin & Cytoxan. Followed by 11 of 12 cycles of Taxol COLONOSCOPY W/ BIOPSY (RECTUM) 09/08/2010 polyp x1 , skin tags, path repeat in 5 years COLONOSCOPY, DIAGNOSTIC (RECTUM) 04/13/2016 normal/[facility] EGD, FLEXIBLE, DIAGNOSTIC 04/13/2016 acid reflux/[facility] EGD, FLEXIBLE, DIAGNOSTIC 02/24/2022 normal / ESOPHAGOGASTRODUODENOSCOPY (EGD), FLEXIBLE, TRANSORAL, DIAGNOSTIC performed by Rober Redding MD at [facility] IDENTIFY SENTINEL NODE, RADIOACTIVE TRACER Left 12/30/2020 INJECTION PROCEDURE FOR IDENTIFICATION SENTINEL NODE performed by Vijaya Samano MD at [facility] INFORMATION 11/13/2012 11/13/2012 insertion of A-port - left shoulder [facility] Dr. Vijaya Samano MASTECTOMY, PARTIAL Left 12/30/2020 MASTECTOMY PARTIAL performed by Vijaya Samano MD at [facility] PROCEDURE - GENERAL PROCEDURE - GENERAL N/A 04/08/2020 iNSERTION OF VENOUS ACCESS(CHEST) RADIATION THERAPY Left 04/13/2021 6640 cGy to left breast, supraclavicular area, and axilla REMOVE GALLBLADDER 1985 REPAIR INITIAL INGUINAL HERNIA REDUCIBLE AGE 5 OR MORE 2006 TOTAL ABD HYSTERECTOMY W/WO REMOVAL OF TUBE(S) 09/24/2012 TOTAL ABDOMINAL HYSTERECTOMY WITH OR WITHOUT TUBES AND OVARIES performed by Jacey Jewell MD at [facility] TOTAL HIP REPLACEMENT & PROSTHESIS Left 09/02/2016 [...] tx: radiation therapy Lung cancer Father TOB+, pool table mechanic, abestos Lung cancer Brother Mane w/ [...] of the information discussed. Rashaad Jovel MS, [facility] Licensed, Certified Genetic Counselor This note is [...] NephBrian broderick [address] [address] [address] Haresh Mark MD [address] [address] 02/06/2024 1:30 PM EDT Telemedicine Psychiatry [place] Srinivasan [address] [place] [address] Zee Zapata MD [address] [place] [address] 04/29/2024 2:15 PM EST Office Visit Urology, [facility] 132 [place] [address] Mendel Macedo MD [address] [place] [id number] 06/04/2024 3:40 PM EST Telemedicine Sleep Disorders Ctr [facility] 132 [place] [address] Charmaine Mckeon DO 132 [facility] [place] [address] 06/28/2024 1:00 PM EST Office Visit General Internal Medicine [facility] [address] [place] [address] Patience Berrios, DAVIS 200 [facility] [place] [address] 10/14/2024 2:00 PM EDT Nurse Only Ancillary [facility] 200 [facility] [place] [address] Shilpa, Nurse Annual Wellness [address] [place] [address] Health Maintenance Due Date Last Done Comments [...] and were consensually agreed upon. Care Teams Seat Scooper Machine Relationship Specialty Start Date End Date Jose M Seth MD [address] [place], [place] [address] PCP - General Internal Medicine 11/21/11 documented as of this encounter
--- OUTSIDE RECORDS SUMMARY | 2024-02-28 21:42 | External Medical Summary | Summary of Care ---
Author Name Unknown Organization [facility] Address [address] [place] [address] Phone [phone] Care Team Providers Care Supervisor Trust Accounts Name Role Phone Jose M Seth MD Primary Care Provider + Reason for Visit * Reason Onset Date Comments Order Request 02/01/2024 Encounter Details Date Type Department Care Team (Late st Contact Info) Description 02/01/2024 Telephone General Internal Medicine [facility] 200 [place] [address] Jose M Seth MD 200 [place] [address] Order Request Allergies Active Allergy Reactions Criticality Noted [...] needed. 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 Use [...] Jose M Seth MD Pharmacy: [facility] 08/09/2013 12/16/2015 Dementia 07/19/2013 2017 Encounter [...] mRNA, LNP-s, No Pre serve, 2-Dose Series ([employer]) 02/18/2021,08/10/2020,07/06/2020 COVID-19, MRNA-LNP, 23-24, P F, 30 MCG/0.3 mL, 12 YRS AND ABOVE, IM ([facility]) 04/11/2023 Covid-19, Mrna, Lnp-s, Pf, B ivalent, 30 Mcg, IM, 12 yrs and above ([employer]) 03/22/2022 Pneumococcal Conjugate Vacc, 13 Valent (Prevnar) [...] Telephone Encounter - Keisha Lima OSA - 02/01/2024 11:01 AM EDT Apt is scheduled and aware * Telephone Encounter - Julissa Saldana RN - 02/01/2024 10:20 AM EDT Patient had telemed appt 08/15/23, follow up cancelled due to admission. Scheduling: please call patient to schedule - follow up with Dr Quiroga or a BEAUTY CULTURE TEACHER - port flush appt Patient had lab work 12/15/23. * Telephone Encounter - Petros Owens OSA - 02/01/2024 9:[address] Rdz An order was requested for this patient. Name of Requesting Provider: Dr Quiroga Order Requested: Labs Diagnosis/Reason for Request: She stated that she didn't have them in awhile and also would like her port flushed at the same time If order request is for Mammogram: Is the patient having any breast symptoms? N/A Is there a chance of ? N/A Has the patient had any breast problems in the past? NA What location AND department does the patient wish to have their order completed at? HEM/ONC [facility] Fax Number, if applicable: None Please call patient back for an appointment when this order is placed and then she wants an appointment after that on the same day. If the caller is not a current patient, please advise the patient to call their current PCP to havethe order's prior to being seen in our office. The patient was informed that our providers would not order anything (medication, labs, etc.) prior to being seen. documented in this encounter Plan of Treatment Upcoming Encounters Date Type Department Care Team (Late st Contact Info) Description 02/06/2024 1:30 PM EDT Telemedicine Psychiatry [place] Srinivasan [address] [place] [place] [phone] Zee Zapata MD [address] [place] [address] 02/09/2024 12:20 PM EDT Immunization Ancillary [facility] 200 [facility] [place] [address] Sp, Flu Shot Clinic 200 [facility] [place] [id number] 02/09/2024 3:00 PM EDT Office Visit Hematology/Oncology [facility] 200 [place] [address] Marietta Salazar CRNP 400 [facility] [place] [address] 02/09/2024 3:30 PM EDT Nurse Only Hematology/Oncology Treatment, [place] 200 [facility] [place] [address] Shilpa, Chair [address] Hem Onc [address] [place] [address] 04/29/2024 2:15 PM EST Office Visit Urology, [facility] 132 [facility] [place] [address] Mendel Macedo MD [address] [place] [address] 06/04/2024 3:40 PM EST Telemedicine Sleep Disorders Ctr Sin[facility] Alvarez [place] [address] [place] [phone] Charmaine Mckeon, [address] [place] [address] 06/28/2024 1:00 PM EST Office Visit General Internal Medicine [facility] [place] [address] [place] [address] Patience Berrios PA-C 200 [facility] [place] [address] 09/13/2024 11:20 AM EDT Office Visit Nephrology, [facility] 200 [facility] [place] [address] Haresh Mark MD 200 [facility] [place] [address] 10/14/2024 2:00 PM EDT Nurse Only Ancillary [facility] [place] 200 [facility] [place] [address] Shilpa, Nurse Annual Wellness [facility] 200 [facility] [place] [address] Health Maintenance Due Date Last Done Comments COVID-19 Vaccine (2022- season) 2024 04/11/2023, 03/22/2022, 02/18/2021, Additional history [...] 12/31/2024 01/01/2024, 024 CKD HGB USE SMARTSET 19520 01/30/202501/30, 01/31/2024, 12/15/2023, Additional history exists CKD PHOS USE SMARTSET 84918 01/30/2025 090 08/2023, 12/27/2023, 10/06/2021, Additional history [...] were consensually agreed upon. Care Teams Supervisor Trust Accounts Relationship Specialty Start Date End Date Jose M Seth MD [address] [place], [place] [address] PCP - General Internal Medicine 11/21/11 documented as of this encounter
--- OUTSIDE RECORDS SUMMARY | 2024-02-28 21:42 | External Medical Summary ---
Author Name Unknown Address Unknown Organization K01:LABORATORY [facility] - [address] [facility] [address] [facility] [address] Laboratory Report Ordering Provider Test Date Status ZAHRA SANTORO 01/31/2024 13:53:53 Final Observation Date Value Abnormality Reference (Units ) Status Ferritin 01/31/2024 13:53:53 306 Above high normal 13 -150 (ng/mL) Final Postmenopausal women have hi gher ferritin levels than pre-menopausal women. The above reference interval is based on pre-menopausal women. Performing Location LABORATORY [facility] - [address] [place] [address]
--- OUTSIDE RECORDS SUMMARY | 2024-02-28 21:42 | External Medical Summary | Summary of Care ---
Author Name Unknown Organization [facility] Address [address] [address] , [place] Care Team Providers Care Facility Service Associate Name Role Phone Jose M Seth MD Primary Care Provider + Reason for Visit * Reason Comments Nutritional Services Documentation Encounter Details Date Type Department Care Team (Late st Contact Info) Description 01/31/2024 10:30 AM EDT Scheduled Telephone Nutrition Services, [address] 1 [facility], [address] [place] [address] Anais Gibson, RDN [address] [address] Allergies Active Allergy Reactions Criticality Noted Date [...] needed. 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 Use [...] Seth MD Pharmacy: [facility] 08/09/2013 12/16/2015 Dementia 07/19/2013 2017 Encounter for [...] mRNA, LNP-s, No Pre serve, 2-Dose Series ([employer]) 02/18/2021,08/10/2020,07/06/2020 COVID-19, MRNA-LNP, 23-24, P F, 30 MCG/0.3 mL, 12 YRS AND ABOVE, IM ([facility]) 04/11/2023 Covid-19, Mrna, Lnp-s, Pf, B ivalent, 30 Mcg, IM, 12 yrs and above ([employer]) 03/22/2022 Pneumococcal Conjugate Vacc, 13 Valent (Prevnar) [...] Telephone Encounter - Anais Gibson RDN - 01/31/2024 1:43 PM EDT Clinical Nutrition Reached out to patient to check in on progress towards goal set at last visit and to check if nutrition education materials were received in the mail and to answer any questions or concerns. Result of call: Patient did not answer. Left voicemail encouraging patient to continue to work on goals and to reach out with any future nutrition questions/concerns. Electronically signed by: Anais Restrepo RDN, [facility] documented in this encounter Plan of Treatment Upcoming Encounters Date Type Department Care Team (Late st Contact Info) Description 02/06/2024 1:30 PM EDT Telemedicine Psychiatry [place] Srinivasan [address] [place] [phone] Zee Zapata MD [address] [place] [address] 04/29/2024 2:15 PM EST [facility] 132 [facility] [place] [address] Mendel Macedo MD [address] [place] [id number] 06/04/2024 3:40 PM EST Telemedicine Sleep Disorders Ctr [facility] [address] [place] [address] Charmaine Mckeon, DO [address] [place] [address] 06/28/2024 1:00 PM EST Office Visit General Internal Medicine [facility] [place] 200 [facility] [place] [address] Patience Berrios PA-C 200 [facility] [place] [address] 09/13/2024 11:20 AM EDT Office Visit Nephrology, [facility] 200 [facility] [place] [address] Haresh Mark MD 200 [facility] [place] [address] 10/14/2024 2:00 PM EDT Nurse Only Ancillary [facility] 200 [facility] [place] [address] [place], Nurse Annual Wellness [facility] 200 [facility] [place] [address] Health Maintenance Due Date Last Done Comments COVID-19 Vaccine ( season) 2024 04/11/2023, 03/22/2022, 02/18/2021, Additional history exists Influenza Vaccine (FLU shot) (#1) 2024 02/07/2023, 02/08/2022, 02/08/2021, Additional history exists DXA Scan 09/20/2024 09/20/2021, 08/28, 10/23/2013, Additional history exists Adult Wellness Visit 10/08/2024 10/09/2023, 10/06/2022, 08/20/2021 HbA1c 12/14/2024 12/15/2023, 07/12/2023, 07/13/2022, Additional history exists Depression Monitoring 12/31/2024 [...] and were consensually agreed upon. Care Teams Facility Service Associate Relationship Specialty Start Date End Date Jose M Seth MD [address] [place] [address] PCP - General Internal Medicine 11/21/11 documented as of this encounter
--- OUTSIDE RECORDS SUMMARY | 2024-02-28 21:42 | External Medical Summary | Summary of Care ---
Author Name Unknown Organization [facility] Address [address] Care Team Providers Care Parcel Post Clerk Name Role Phone Jose M Seth MD Primary Care Provider + Reason for Visit * Reason Onset Date Comments Other 01/31/2024 Encounter Details Date Type Department Care Team (Late st Contact Info) Description 01/31/2024 Telephone Nutrition Services, [address] 1 [facility], [address] [place] [address] Services, Scheduling [address] [place] [address] Other Allergies Active Allergy Reactions Criticality Noted Date [...] Dispensed Refills Start Date End Date Status [facility] ADULT BRIEFS X-LARGE MISCIndications:Unsp ecified [...] needed. 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 Use [...] Date Diagnosed Date Resolved Date Uncomplicated asthma 11/15/202212/26/ 024 Overview: More specified on pl Food [...] mRNA, LNP-s, No Pre serve, 2-Dose Series ([employer]) 02/18/2021,08/10/2020,07/06/2020 COVID-19, MRNA-LNP, 23-24, P F, 30 MCG/0.3 mL, 12 YRS AND ABOVE, IM ([employer]ir[facility]ir[facility] [employer]) 04/11/2023 Covid-19, Mrna, Lnp-s, Pf, B ivalent, [...] encounter Miscellaneous Notes * Telephone Encounter - Ioana Anderson OSA - 01/31/2024 5:02 PM EDT Leoncio nuñez, Pt on the line, requesting a call back about the materials she received in the mail. Please give her a call at [phone] Thank you documented in this encounter Plan of Treatment Upcoming Encounters Date Type Department Care Team (Late st Contact Info) Description 02/06/2024 1:30 PM EDT Telemedicine Psychiatry [place] Srinivasan [address] [place] [phone] Zee Zapata MD [address] [place] [address] 02/09/2024 12:20 PM EDT Immunization Ancillary [facility] 200 [facility] [place] [address] Sp, Flu Shot Clinic 200 [facility] [address] 04/29/2024 2:15 PM EST [facility] [address] [facility] [place] [address] Mendel Macedo MD [address] [place] [address] 06/04/2024 3:40 PM EST Telemedicine Sleep Disorders Ctr [facility] [address] [facility] [place] [phone] Charmaine Mckeon, 132 [facility] [place] [address] 06/28/2024 1:00 PM EST Office Visit General Internal Medicine [facility] [place] 200 [facility] [place] [address] Patience Berrios PA-C 200 [facility] [place] [address] 09/13/2024 11:20 AM EDT Office Visit Nephrology, [facility] 200 [facility] [place] [address] Haresh Mark MD 200 [facility] [place] [address] 10/14/2024 2:00 PM EDT Nurse Only Ancillary [facility] [place] 200 [facility] [place] [address] [place], Nurse Annual Wellness [address] [place] [address] Health Maintenance Due Date Last Done Comments COVID-19 Vaccine (2022- season) 2024 04/11/2023, 03/22/2022, 02/18/2021, Additional history exists Influenza Vaccine (FLU shot) (#1) 2024 02/07/2023, 02/08/2022, 02/08/2021, Additional history exists GFR 07/30/2024 01/31/2024, 07/05/2023, 12/15/2023, Additional history exists DXA Scan 09/20/2024 09/20/2021, 08/28, 10/23/2013, Additional history exists Adult Wellness Visit 10/08/2024 10/09/2023, 10/06/2022, 08/20/2021 Albumin/Creatinine Ratio 12/14/2024 024, 10/18/2022, 07/17/2020, Additional history exists HbA1c 12/14/2024 12/15/2023, 07/0 12/2023, 07/13/2022, Additional history exists Depression Monitoring 12/31/2024 01/01/2024, 024 CKD HGB USE SMARTSET 73161 01/30/202501/30, 01/31/2024, 12/15/2023, Additional history exists CKD PHOS USE SMARTSET 40386 01/30/2025 09/0 08/2023, 12/27/2023, 10/06/2021, Additional history [...] and were consensually agreed upon. Care Teams Parcel Post Clerk Relationship Specialty Start Date End Date Jose M Seth MD 200 [facility] [place] [address] PCP - General Internal Medicine 11/21/11 documented as of this encounter
--- OUTSIDE RECORDS SUMMARY | 2024-02-28 21:42 | External Medical Summary | Summary of Care ---
Author Name Unknown Organization [facility] Address [address] [place] [address] Phone [phone] Care Team Providers Care Pharmacy Technician Inpatient Name Role Phone Jose M Seth MD Primary Care Provider + Reason for Visit * Reason Comments Outpatient Testing Encounter Details Date Type Department Care Team (Late st Contact Info) Description 01/31/2024 1:40 PM EDT Laboratory Laboratory [facility] [place] [address] [place] [address] [place] [facility] 200 [facility] [place] [address] History of endometrial cancer; Triple negative breast cancer (HCC); Stage 3a chronic kidney disease (HCC); Hyponatremia Allergies Active Allergy Reactions Criticality Noted [...] needed. 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 Use [...] Jose M Seth MD Pharmacy: [facility] 08/09/2013 12/16/2015 Dementia 07/19/2013 2017 Encounter [...] mRNA, LNP-s, No Pre serve, 2-Dose Series (Open Me) 02/18/2021,08/10/2020,07/06/2020 COVID-19, MRNA-LNP, 23-24, P F, 30 MCG/0.3 mL, 12 YRS AND ABOVE, IM ([facility]) 04/11/2023 Covid-19, Mrna, Lnp-s, Pf, B [...] 04/29/2024 2:15 PM EST Office Visit Urology, [facility] 132 [facility] [place] [address] Mendel Macedo MD [address] [place] [id number] 06/04/2024 3:40 PM EST Telemedicine Sleep Disorders Ctr [facility] 132 [facility] [place] [phone] Charmaine Mckeon DO 132 [facility] [place] [address] 06/28/2024 1:00 PM EST Office Visit General Internal Medicine [facility] [place] [address] [place] [address] Patience Berrios PA-C [address] [place] [address] 09/13/2024 11:20 AM EDT Office Visit Nephrology, [facility] [address] [place] [address] Haresh Mark MD [address] [place] [address] 10/14/2024 2:00 PM EDT Nurse Only Ancillary [facility] Ailyn Massey [address] [place] [address] [place] Nurse Annual Wellness [facility] 200 [facility] [place] [address] Pending Results Name Type Priority Associated Diagnoses Date /Time MULTI-CANCER PANEL, INVITAE Lab Routine History of endometrial cancer Triple negative breast cancer (HCC) 01/31/2024 1:53 PM EDT IRON SCREEN, INCLUDING TIBC Lab Routine Stage [...] disease (HCC) Hyponatremia 01/31/2024 1:53 PM EDT Health Maintenance Due Date Last Done Comments COVID-19 Vaccine ( season) 2024 04/11/2023, 03/22/2022, 02/18/2021, Additional history exists Influenza Vaccine (FLU shot) (#1) 2024 02/07/2023, 02/08/2022, 02/08/2021, Additional history exists DXA Scan 09/20/2024 09/20/2021, /09/2021, 10/23/2013, Additional history exists Adult Wellness Visit 10/08/2024 10/09/2023, 10/06/2022, 08/20/2021 HbA1c 12/14/2024 12/15/2023, 0712/2023, 07/13/2022, Additional history [...] Priority Date/Time Associated Diagnosis Comments DIFFERENTIAL, AUTOMATED Routine 01/31/2024 1:53 PM EDT Stage 3a chronic kidney disease (HCC) Hyponatremia CBC Routine 01/31/2024 1:53 PM EDT Stage 3a chronic kidney disease (HCC) Hyponatremia CBC Routine 01/31/2024 1:53 PM EDT Stage 3a chronic kidney disease (HCC) Hyponatremia documented in this encounter Results * (ABNORMAL) DIFFERENTIAL, AUTOMATED (01/31/2024 1:53 PM EDT) WBC 4.66 4.00 - 10.80 K/uL 01/31/2024 1:59 PM EDT [facility] [place] 56-02 Neutrophils % 66.6 40.0 - 75.0 % 01/31/2024 1:59 PM EDT [facility] [place] 56-02 Lymphocytes % 20.4 18.0 - 42.0 % 01/31/2024 1:59 PM EDT [facility] 56 Monocytes % 12.2(H) 1.0 - 11.0 % 01/31/2024 1:59 PM EDT [facility] 56- Eosinophils % 0.6 0.0 - 6.0 % 01/31/2024 1:59 PM EDT [facility] 56- Basophils % 0.2 0.0 - 2.0 % 01/31/2024 1:59 PM EDT [facility] 56 Absolute Neutrophils 3.10 1.80 - 7.70 K/uL 01/31/2024 1:59 PM EDT [facility] 56 Absolute Lymphocytes 0.95(L) 1.00 - 4.80 K/ul 01/31/2024 1:59 PM EDT [facility] 56 Absolute Monocytes 0.57 0.00 - 1.10 K/uL 01/31/2024 1:59 PM EDT [facility] 56 Absolute Eosinophils 0.03 0.00 - 0.70 K/uL 01/31/2024 1:59 PM EDT [facility] 56 Absolute Basophils 0.01 0.00 - 0.20 K/uL 01/31/2024 1:59 PM EDT [facility] 56 Blood Venous blood specimen / Unknown Venipuncture / Unknown 01/31/2024 1:53 PM EDT 01/31/2024 1:53 PM EDT Haresh Mark MD LAB BLOOD ORDERABLES [facility] [address] [place] [address] * (ABNORMAL) CBC (01/31/2024 1:53 PM EDT) WBC 4.66 4.00 - 10.80 K/uL 01/31/2024 1:59 PM EDT [facility] 56 RBC 3.03 3.85 - 5.15 M/uL 01/31/2024 1:59 PM EDT [facility] 56 HGB 9.5(L) 12.0 - 15.3 g/dL 01/31/2024 1:59 PM EDT [facility] 56 HCT 29.2(L) 36.0 - 45.2 % 01/31/2024 1:59 PM EDT [facility] 56 MCV 96.4 81.5 - 97.5 fL 01/31/2024 1:59 PM EDT [address] MCH 31.4 27.0 - 34.0 pg 01/31/2024 1:59 PM EDT [address] MCHC 32.5 32.0 - 36.0 g/dL 01/31/2024 1:59 PM EDT [facility] 56 RDW 15.3 11.5 - 15.5 % 01/31/2024 1:59 PM EDT [address] PLT 195 140 - 400 K/uL 01/31/2024 1:59 PM EDT [address] MPV 11.0 6.6 - 11.1 fL 01/31/2024 1:59 PM EDT [address] Blood Venous blood specimen / Unknown Venipuncture / Unknown 01/31/2024 1:53 PM EDT 01/31/2024 1:53 PM EDT Haresh Mark MD LAB BLOOD ORDERABLES [facility] 56 200 [facility] [address] documented in this encounter Visit Diagnoses Diagnosis History of endometrial cancer Personal history of malignant neoplasm of other parts of uterus Triple negative breast cancer (HCC) Stage 3a chronic kidney disease (HCC) Hyponatremia Hyposmolality and/or hyponatremia documented in this encounter Advance Directives * Full Code (Latest Code Status on File) Date Activated Date Inactivated Comments 09/24/2012 8:15 PM 10/02/2012 7:35 PM This order re flects the patients wishes and were consensually agreed upon. Care Teams Pharmacy Technician Inpatient Relationship Specialty Start Date End Date Jose M Seth MD 200 [facility] [address] PCP - General Internal Medicine 11/21/11 documented as of this encounter
--- OUTSIDE RECORDS SUMMARY | 2024-02-28 21:42 | External Medical Summary ---
Author Name Unknown Address Unknown Organization [id number]:[facility] [place] 56-02 - [address] [place] [address] Laboratory Report Ordering Provider Test Date Status ZAHRA SANTORO 01/31/2024 13:53:53 Final Observation Date Value Abnormality Reference (Units ) Status Color of Urine by Auto 01/31/2024 13:53:53 Yellow Light Yellow, Yellow, Dark Yellow Final Clarity, Urine 01/31/2024 13:53:53 Clear Clear Final Glucose [Mass/volume] in Urine by Automated test strip 01/31/2024 13:53:53 Negative Negative (mg/dL) Final Bilirubin.total [Presence] in Urine by Automated test strip 01/31/2024 13:53:53 Negative Negative Final Ketones [Mass/volume] in Urine by Automated test strip 01/31/2024 13:53:53 Negative Negative (mg/dL) Final Specific gravity, Urine 01/31/2024 13:53:53 1.010 1.003-1.030 Final Hemoglobin [Presence] in Urine by Automated test strip 01/31/2024 13:53:53 Negative Negative Final pH, Urine 01/31/2024 13:53:53 6.0 5.0-7.5 (Units) Final Protein [Mass/volume] in Urine by Automated test strip 01/31/2024 13:53:53 Negative Negative (mg/dL) Final Urobilinogen [Mass/volume] in Urine by Automated test strip 01/31/2024 13:53:53 0.2 0.2, 1.0 (mg/dL) Final Nitrite [Presence] in Urine by Automated test strip 01/31/2024 13:53:53 Negative Negative Final Leukocyte esterase [Presence] in Urine by Automated test strip 01/31/2024 13:53:53 Trace Abnormal Negative Final RBC, Urine 01/31/2024 13:53:53 0-2 0-2 (/HPF) Final WBC, Urine 01/31/2024 13:53:53 3-5 Abnormal 0-2 (/HPF) Final Bacteria [#/area] in Urine sediment by Microscopy high power field 01/31/2024 13:53:53 26-50 Abnormal 0-25 (/HPF) Final Performing Location [facility] [place] [address] [place] [address]
--- OUTSIDE RECORDS SUMMARY | 2024-02-28 21:42 | External Medical Summary ---
Author Name Unknown Address Unknown Organization K01:[facility] - [address] [place] [address] Laboratory Report Ordering Provider Test Date Status DIONNE SANTOROAMALIA 01/31/2024 13:53:53 Final Observation Date Value Abnormality Reference (Units ) Status Osmolality 01/31/2024 13:53:53 302 278-305 ( mOsm/kg) Final Performing Location [facility] - [address] [place] [address]
--- OUTSIDE RECORDS SUMMARY | 2024-02-28 21:42 | External Medical Summary ---
Author Name Unknown Address Unknown Organization [id number]:[facility] [place] [address] Laboratory Report Ordering Provider Test Date Status ZAHRA SANTORO 01/31/2024 13:53:53 Final Observation Date Value Abnormality Reference (Units ) Status BUN 01/31/2024 13:53:53 52 Above high normal 6-20 (mg/dL) Final Creatinine 01/31/2024 13:53:53 0.8 0.5-1.0 (mg/dL) Final Glomerular filtration rate/1.73 sq M.predicted [Volume Rate/Area] in Serum, Plasma or Blood by Creatinine-based formula (CKD-EPI) 01/31/2024 13:53:53 74 >=60 (mL/min) Final eGFR is calculated based on the CKD-EPI 2020 equation. Sodium 01/31/2024 13:53:53 135 135-146 (m mol/L) Final Potassium 01/31/2024 13:53:53 4.4 3.5-5.1 (m mol/L) Final Cl 01/31/2024 13:53:53 96 Below low normal 98- 107 (mmol/L) Final CO2 01/31/2024 13:53:53 30 22-32 (mmo l/L) Final Anion gap 01/31/2024 13:53:53 9 7-15 (mmol /L) Final Glucose 01/31/2024 13:53:53 95 70-120 (mg /dL) Final Calcium 01/31/2024 13:53:53 9.2 8.4-10.2 ( mg/dL) Final Albumin 01/31/2024 13:53:53 4.1 3.8-5.0 (g /dL) Final Phosphate 01/31/2024 13:53:53 3.7 2.5-4.8 (m g/dL) Final Performing Location [facility] [place] [address]
--- OUTSIDE RECORDS SUMMARY | 2024-02-28 21:42 | External Medical Summary ---
Author Name Unknown Address Unknown Organization : Laboratory Report Ordering Provider Test Date Status HARVINDER DIAZ 01/31/2024 13:53:53 Final - 6mL K2EDTA or K3EDTA purpl e top blood collection tube
- Label with full name, MRN, , and collection date
- Send sample at room temperature to [facility] or [facility] referred lab testing for processing and send out; do not freeze
- A copy of the online requisition form will be submitted to Referred Lab by Tonya Obando MS
*Insurance bill Observation Date Value Abnormality Reference (Units ) Status REFERENCE LAB SCANNED REPORT 01/31/2024 13:53:53 RESULT SCAN Final Performing Location
--- OUTSIDE RECORDS SUMMARY | 2024-02-28 21:42 | External Medical Summary ---
Author Name Unknown Address Unknown Organization K09:[facility] [place] [address] Laboratory Report Ordering Provider Test Date Status ZAHRA SANTORO 01/31/2024 13:53:53 Final Observation Date Value Abnormality Reference (Units ) Status WBC, Total 01/31/2024 13:53:53 4.66 4.00-10.8 0 (K/uL) Final RBC 01/31/2024 13:53:53 3.03 3.85-5.15 (M/uL) Final Hemoglobin 01/31/2024 13:53:53 9.5 Below low normal 12 .0-15.3 (g/dL) Final HCT 01/31/2024 13:53:53 29.2 Below low normal 36. 0-45.2 (%) Final MCV 01/31/2024 13:53:53 96.4 81.5-97.5 (fL) Final MCH 01/31/2024 13:53:53 31.4 27.0-34.0 (pg) Final MCHC 01/31/2024 13:53:53 32.5 32.0-36.0 (g/dL) Final RDW 01/31/2024 13:53:53 15.3 11.5-15.5 (%) Final Platelets 01/31/2024 13:53:53 195 140-400 (K /uL) Final MPV 01/31/2024 13:53:53 11.0 6.6-11.1 ( fL) Final Performing Location [place] [place] [address]
--- OUTSIDE RECORDS SUMMARY | 2024-02-28 21:43 | External Medical Summary | Summary of Care ---
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 Use [...] (Ure-Na) Take 15 g by mouth daily 12/27/2023 Active documented as of this encounter (statuses as of 12/27/2023) Active Problems Problem Noted Date Diagnosed Date [...] as of this encounter (statuses as of 12/27/2023) Resolved Problems Problem Noted Date Diagnosed Date [...] as of this encounter (statuses as of 12/27/2023) Immunizations Name Administration Dates Next Due COVID-19 mRNA, LNP-s, No Pre serve, 2-Dose Series ([employer]) 02/18/2021,08/10/2020,07/06/2020 COVID-19, MRNA-LNP, 23-24, P F, 30 MCG/0.3 mL, 12 YRS AND ABOVE, IM ([employer]-Comir[employer]) 04/11/2023 Covid-19, Mrna, Lnp-s, Pf, B ivalent, [...] Description 01/25/2024 11:00 AM EDT Telemedicine Genetics [facility], [facility] [address] [place] [address] Tonya Jovel, MS 132 [facility] [place] [address] 01/31/2024 1:00 PM EDT Office Visit Nephrology, [facility] [address] [address] [address] Haresh Mark MD [address] [place] [address] [address] 04/29/2024 2:15 PM EST Office Visit Urology, [facility] [address] [place] [address] Mendel Macedo MD [address] [place] [address] 06/04/2024 3:40 PM EST Telemedicine Sleep Disorders Ctr [facility] [address] [place] [phone] Charmaine Mckeon DO [address] [place] [address] 06/28/2024 1:00 PM EST Office Visit General Internal Medicine [facility] [place] [address] [address] [address] Patience Berrios PA-C [address] [place] [address] [address] 10/14/2024 2:00 PM EDT Nurse Only Ancillary [place] Ailyn Massey [address] [place] [address] Shilpa Nurse Annual Wellness Scene 200 [facility] [place] [address] Pending Results Name Type Priority Associated Diagnoses Date /Time RENAL FUNCTION PANEL Lab Routine Hyponatremia 12/27/2023 12:42 PM EDT OSMOLALITY, SERUM Lab Routine Hyponatremia 12/27/2023 12:42 PM EDT VALPROIC ACID LEVEL Lab Routine 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) 12/27/2023 12:42 PM EDT OSMOLALITY, URINE Lab Routine Hyponatremia 12/27/2023 12:50 PM EDT SODIUM, RANDOM URINE Lab Routine Hyponatremia 12/27/2023 12:50 PM EDT Health Maintenance Due Date Last [...] Visit Diagnoses Diagnosis Hyponatremia Hyposmolality and/or hyponatremia 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 Care Teams Advertising Layout Worker Relationship Specialty Start Date End Date Jose M Seth MD [address] [place] [address] PCP - General Internal Medicine 11/21/11 documented as of this encounter
--- OUTSIDE RECORDS SUMMARY | 2024-02-28 21:43 | External Medical Summary ---
Author Name Unknown Address Unknown Organization K01:LABORATORY [facility] - [address] [place] [address] Laboratory Report Ordering Provider Test Date Status PIERRE IRBY 12/27/2023 12:50:38 Final Observation Date Value Abnormality Reference (Units ) Status Sodium, Urine 12/27/2023 12:50:38 <20 (mmol/ L) Final Performing Location [facility] - [address] [place] [address]
--- OUTSIDE RECORDS SUMMARY | 2024-02-28 21:43 | External Medical Summary | Summary of Care ---
Author Name Unknown Organization [facility] Address [address] [place] [address] Phone [phone] Care Team Providers Care Rn Concurrent Review Name Role Phone Jose M Seth MD Primary Care Provider + Reason for Visit * Reason Onset Date Comments Order Request 12/29/2023 Encounter Details Date Type Department Care Team (Late st Contact Info) Description 12/29/2023 Telephone General Internal Medicine [facility] 200 [place] [address] Jose M Seth MD 200 [place] [address] Order Request Allergies Active Allergy Reactions Criticality [...] as of this encounter (statuses as of 01/02/2024) Medications Medication Sig Dispensed Refills Start Date [...] needed. 100 Tab 04/15/2020 Active Saline Nasal [place] 0.65 % Nasal Solution ([place] Nasal [place]) Two sprays in each nostril as needed [...] Active Commode BedsideIndications:C hronic diastolic heart failure (HCC),long-term current use of diuretic Bedside commode. Use [...] as of this encounter (statuses as of 01/02/2024) Active Problems Problem Noted Date Diagnosed Date [...] as of this encounter (statuses as of 01/02/2024) Resolved Problems Problem Noted Date Diagnosed Date [...] as of this encounter (statuses as of 01/02/2024) Immunizations Name Administration Dates Next Due COVID-19 mRNA, LNP-s, No Pre serve, 2-Dose Series ([employer]) 02/18/2021,08/10/2020,07/06/2020 COVID-19, MRNA-LNP, 23-24, P F, 30 MCG/0.3 mL, 12 YRS AND ABOVE, IM (LinQpay-Comiratrium healthVirtual [employer]) 04/11/2023 Covid-19, Mrna, Lnp-s, Pf, B ivalent, 30 Mcg, IM, 12 yrs and above (Electric [employer]) 03/22/2022 Pneumococcal Conjugate Vacc, 13 Valent (Prevnar) [...] Encounter - Jose M Seth MD - 01/02/2024 12:38 PM EDT See other encounter * Telephone Encounter - Lian Troy OSA - 12/29/2023 1:39 PM EDT Ms. Reyes nurse w/ [facility] called to advise that pt was recently dx w/ stage 3 kidney disease and is struggling to maintain her diet. Ms Reyes advised that they are requesting that provider sign off on an order for a director building. Please reach out to discuss further if needed. Ms. Reyes advised order will be sent to office. documented in this encounter Plan of Treatment Upcoming Encounters Date Type Department Care Team (Late st Contact Info) Description 01/23/2024 11:00 AM EDT Telemedicine Nutrition Services, [address] 1 [facility], [address] [place] [address] Anais Gibson, N [facility] [place] [address] 01/25/2024 11:00 AM EDT Telemedicine Genetics HemOnc, [facility] [address] [place], [place] [id number] Tonya Jovel, MS [address] [place] [address] 01/31/2024 1:00 PM EDT Office Visit Nephrology, [address] [place] [address] Haresh Mark MD 200 [facility] [place] [address] 04/29/2024 2:15 PM EST Office Visit Urology, [facility] 132 [facility] [place] [address] Mendel Macedo MD [address] [place] [address] 06/04/2024 3:40 PM EST Telemedicine Sleep Disorders Ctr [facility] 132 [facility] [address] Charmaine Mckeon DO 132 [facility] [place] [address] 06/28/2024 1:00 PM EST Office Visit General Internal Medicine [facility] [address] [place] [address] Patience Berrios PA-C 200 [facility] [place] [address] 10/14/2024 2:00 PM EDT Nurse Only Ancillary [facility] 200 [facility] [place] [address] [place], Nurse Annual Wellness [address] [facility] [place] [address] Health Maintenance Due Date Last Done Comments COVID-19 Vaccine (2022- season) 2023 04/11/2023, 03/22/2022, 02/18/2021, Additional history exists Influenza Vaccine (FLU shot) (#1) 2024 02/07/2023, 02/08/2022, 02/08/2021, Additional history exists DXA Scan 09/20/2024 09/20/2021, 08/28, 10/23/2013, Additional history exists Adult Wellness Visit 10/08/2024 10/09/2023, 10/06/2022, 08/20/2021 HbA1c 12/14/2024 12/15/2023, 07/0 12/2023, 07/13/2022, Additional history exists Depression Monitoring 12/31/2024 01/01/2024, 024 DTaP,Tdap,and Td Vaccines (3 - Td [...] and were consensually agreed upon. Care Teams Rn Concurrent Review Relationship Specialty Start Date End Date Jose M Seth MD 200 [facility] [address] PCP - General Internal Medicine 11/21/11 documented as of this encounter
--- OUTSIDE RECORDS SUMMARY | 2024-02-28 21:43 | External Medical Summary ---
Author Name Unknown Address Unknown Organization K01:LABORATORY C - [address] [place] [address] Laboratory Report Ordering Provider Test Date Status TIFFANY BLAND 12/27/2023 12:42:56 Final Observation Date Value Abnormality Reference (Units ) Status Valproic Acid, level 12/27/2023 12:42:56 85 50-100 (ug/mL) Final Performing Location [facility] - [address] [place] [address]
--- OUTSIDE RECORDS SUMMARY | 2024-02-28 21:43 | External Medical Summary ---
Author Name Unknown Address Unknown Organization K01:LABORATORY [facility] - [address] [facility] [address] [place] [address] Laboratory Report Ordering Provider Test Date Status PIERRE IRBY 12/27/2023 12:50:38 Final Observation Date Value Abnormality Reference (Units ) Status Osmolality, Urine 12/27/2023 12:50:38 617 50 -1200 (mOsm/kg) Final Performing Location [facility] - [address] [place] [address]
--- OUTSIDE RECORDS SUMMARY | 2024-02-28 21:43 | External Medical Summary | Summary of Care ---
Author Name Unknown Organization [facility] Address [address] [place] [address] Phone [phone] Care Team Providers Care Assembled Wood Products Repairer Name Role Phone Jose M Seth MD Primary Care Provider + Reason for Visit * Reason Onset Date Comments Test Results 12/28/2023 Encounter Details Date Type Department Care Team (Late st Contact Info) Description 12/28/2023 Telephone General Internal Medicine [facility] [address] [place] [address] Jose M Seth MD [address] [place] [address] Test Results Allergies Active Allergy Reactions Criticality [...] as of this encounter (statuses as of 12/28/2023) Medications Medication Sig Dispensed Refills Start Date [...] needed. 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 Use [...] as of this encounter (statuses as of 12/28/2023) Active Problems Problem Noted Date Diagnosed Date [...] as of this encounter (statuses as of 12/28/2023) Resolved Problems Problem Noted Date Diagnosed Date [...] as of this encounter (statuses as of 12/28/2023) Immunizations Name Administration Dates Next Due COVID-19 mRNA, LNP-s, No Pre serve, 2-Dose Series ([employer]) 02/18/2021,08/10/2020,07/06/2020 COVID-19, MRNA-LNP, 23-24, P F, 30 MCG/0.3 mL, 12 YRS AND ABOVE, IM ([email or web address]) 04/11/2023 Covid-19, Mrna, Lnp-s, Pf, B ivalent, 30 Mcg, IM, 12 yrs and above ([employer]) 03/22/2022 Pneumococcal Conjugate Vacc, 13 Valent (Prevnar) [...] encounter Miscellaneous Notes * Telephone Encounter - Marilyn Blanc MED ASSIST - 12/28/2023 12:38 PM EDT Patient aware and receptive to instructions. * Telephone Encounter - Marilyn Blanc MED ASSIST - 12/28/2023 12:37 PM EDT ----- Message from Patience Berrios sent at 12/28/2023 8:53 AM EDT ----- Renal function is improving and her sodium level remains in normal range. This is good news! documented in this encounter Plan of Treatment Upcoming Encounters Date Type Department Care Team (Late st Contact Info) Description 01/25/2024 11:00 AM EDT Telemedicine Genetics [facility], [facility] [address] [place] [address] Tonya Jovel, [place] [address] [place] [address] 01/31/2024 1:00 PM EDT Office Visit Nephrology, [facility] [address] [place] [address] Haresh Mark MD [address] [place] [address] 04/29/2024 2:15 PM EST Office Visit Urology, [facility] [address] [place] [address] Mendel Macedo MD [address] [place] [address] 06/04/2024 3:40 PM EST Telemedicine [facility] [place] [address] [place] [address] Charmaine Mckeon, [address] [place] [address] 06/28/2024 1:00 PM EST Office Visit General Internal Medicine [facility] [address] [place] [address] Patience Berrios PA-C 200 [facility] [place] [address] 10/14/2024 2:00 PM EDT Nurse Only Ancillary [facility] [place] [address] [place] [address] Shilpa, Nurse Annual Wellness [facility] [address] [facility] [place] [address] Health Maintenance Due Date Last Done Comments [...] and were consensually agreed upon. Care Teams Assembled Wood Products Repairer Relationship Specialty Start Date End Date Jose M Seth MD [address] [place] [address] PCP - General Internal Medicine 11/21/11 documented as of this encounter
--- OUTSIDE RECORDS SUMMARY | 2024-02-28 21:43 | External Medical Summary ---
Author Name Unknown Address Unknown Organization K01:[facility] - [address] [place] [address] Laboratory Report Ordering Provider Test Date Status PIERRE IRBY 12/27/2023 12:42:56 Final Observation Date Value Abnormality Reference (Units ) Status Osmolality 12/27/2023 12:42:56 302 [id number] ( mOsm/kg) Final Performing Location [facility] - [address] [place] [address]
--- OUTSIDE RECORDS SUMMARY | 2024-02-28 21:43 | External Medical Summary | Summary of Care ---
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 100 Tab 04/15/2020 Active Saline Nasal [place] 0.65 % Nasal Solution ([place] Nasal [place]) Two sprays in each nostril as needed [...] mRNA, LNP-s, No Pre serve, 2-Dose Series ([employer]) 02/18/2021,08/10/2020,07/06/2020 COVID-19, MRNA-LNP, 23-24, P F, 30 MCG/0.3 mL, 12 YRS AND ABOVE, IM ([employer]) 04/11/2023 Covid-19, Mrna, Lnp-s, Pf, B ivalent, [...] Description 01/25/2024 11:00 AM EDT Telemedicine Genetics [facility], [facility] [address] [place] [address] Tonya Jovel, [place] [address] [facility] [place] [address] 01/31/2024 1:00 PM EDT Office Visit Nephrology, [facility] [address] [address] [address] Haresh Mark MD [address] [address] 04/29/2024 2:15 PM EST Office Visit Urology, [facility] [address] [place] [address] Mendel Macedo MD [address] [place] [address] 06/04/2024 3:40 PM EST Telemedicine Sleep Disorders Ctr [facility] [address] [place] [id number] Charmaine Mckeon DO [address] [place] [address] 06/28/2024 1:00 PM EST Office Visit General Internal Medicine [facility] [place] [address] [address] [address] Patience Berrios PA-C [address] [place] [address] 10/14/2024 2:00 PM EDT Nurse Only Ancillary [place] [facility] [address] [place] [address] Shilpa Nurse Annual Wellness [facility] [address] [facility] [place] [address] Pending Results Name Type Priority Associated Diagnoses [...] and were consensually agreed upon. Care Teams Telephone Sales Representative Relationship Specialty Start Date End Date Jose M Seth MD [address] [place] [address] PCP - General Internal Medicine 11/21/11 documented as of this encounter
--- OUTSIDE RECORDS SUMMARY | 2024-02-28 21:43 | External Medical Summary | Summary of Care ---
Author Name Unknown Organization [facility] Address [address] [place] [address] Phone [phone] Care Team Providers Care Arcade Technician Name Role Phone Jose M Seth MD Primary Care Provider + Encounter Details Date Type Department Care Team (Late st Contact Info) Description 01/24/2024 Telephone Psychiatry [facility] [place] [address] [place] [address] Zee Zapata MD [address] [place] [address] Allergies Active Allergy Reactions Criticality Noted Date [...] as of this encounter (statuses as of 01/24/2024) Medications Medication Sig Dispensed Refills Start Date [...] needed. 100 Tab 0 Active Saline Nasal [place] 0.65 % Nasal Solution ([place] Nasal [place]) Two sprays in each nostril as needed [...] nostril in the morning. 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 Use [...] night at bedtime. 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 90 Tablet 2 4 01/24/20 24 Discontinu ed(Refill) documented as of this encounter (statuses as of 01/24/2024) Active Problems Problem Noted Date Diagnosed Date [...] as of this encounter (statuses as of 01/24/2024) Resolved Problems Problem Noted Date Diagnosed Date [...] as of this encounter (statuses as of 01/24/2024) Immunizations Name Administration Dates Next Due COVID-19 mRNA, LNP-s, No Pre serve, 2-Dose Series (No [employer]apor) 02/18/2021,08/10/2020,07/06/2020 COVID-19, MRNA-LNP, 23-24, P F, 30 MCG/0.3 mL, 12 YRS AND ABOVE, IM ([email or web address]) 04/11/2023 Covid-19, Mrna, Lnp-s, Pf, B ivalent, 30 Mcg, IM, 12 yrs and above (No Paper Just Vapor) 03/22/2022 Pneumococcal Conjugate Vacc, 13 Valent (Prevnar) [...] encounter Miscellaneous Notes * Addendum Note - Nydia Lorenzo MD - 01/24/2024 1:38 PM EDTAddended by: NYDIA LORENZO on: 01/24/2024 01:38 PM Modules accepted: Orders * Telephone Encounter - Lizbeth Wilson OSA - 01/24/2024 10:30 AM EDT Sent to Dr. Peterson per Dr. Sosa request * Telephone Encounter - Lizbeth Wilson OSA - 01/24/2024 9:26 AM EDT Patient Requesting Refill Prescribing Provider: Jodi Medication: Grecia Pharmacy: [facility] Last Visit Date: 12/25/23 Future Visit Date: 02/06/24 documented in this encounter Plan of Treatment Upcoming Encounters Date Type Department Care Team (Late st Contact Info) Description 01/25/2024 11:00 AM EDT Telemedicine Genetics [facility], [facility] [address] [place] [address] Tonya Jovel, MS 132 [facility] [place] [address] 01/31/2024 1:00 PM EDT Office Visit Nephrology, [facility] [address] [address] Haresh Mark MD 200 [facility] [place] [address] 02/06/2024 1:30 PM EDT Telemedicine Psychiatry [facility] [place] [address] [place] [address] Zee Zapata MD [address] [place] [address] 04/29/2024 2:15 PM EST Office Visit Urology, [facility] [address] [place] [address] Mendel Macedo MD [address] [facility] [place] [id number] 06/04/2024 3:40 PM EST Telemedicine Sleep Disorders Ctr [facility] [address] [place] [phone] Charmaine Mckeon DO [facility] [address] 06/28/2024 1:00 PM EST Office Visit General Internal Medicine [facility] [place]pa [place] [address] [address] Patience Berrios PA-C 200 [facility] [place] [address] 10/14/2024 2:00 PM EDT Nurse Only Ancillary [facility] [place] [address] [address] Shilpa Nurse Annual Wellness [address] [place] [address] Health Maintenance Due Date Last Done Comments COVID-19 Vaccine ( season) 2023 04/11/2023, 03/22/2022, 02/18/2021, Additional history exists Influenza Vaccine (FLU shot) (#1) 2024 02/07/2023, 02/08/2022, 02/08/2021, Additional history exists DXA Scan 09/20/2024 09/20/2021, 042 09/2021, 10/23/2013, Additional history exists Adult Wellness [...] and were consensually agreed upon. Care Teams Arcade Technician Relationship Specialty Start Date End Date Jose M Seth MD [address] [place] [address] PCP - General Internal Medicine 11/21/11 documented as of this encounter
--- OUTSIDE RECORDS SUMMARY | 2024-02-28 21:43 | External Medical Summary | Summary of Care ---
Author Name Unknown Organization [facility] Address [address] [address] , [place] Care Team Providers Care Tufter Operator Name Role Phone Jose M Seth MD Primary Care Provider + Reason for Visit * Reason Comments Medical Nutrition Therapy * Evaluate & Treat - Unlimited Visits (Within 10 days (routine)) - Authorized Specialty Diagnoses / Procedures Referred By Contac t Referred To Contact Dietitian / Nutrition Services Diagnoses Hyponatremia Jose M Seth MD [address] [place] [address] Referral ID Status Reason Start Date Expiration Date Visits Requested Visits Authorized [id number] Authorized Specialty Services Required 01/01/2024 [id number] Encounter Details Date Type Department Care Team (Latest Contact Info) Description 01/23/2024 11:00 AM EDT Telemedicine Nutrition Services, [address] [facility], [address] [place] [address] Anais Gibson, RDN [address] [place] [address] History of renal failure*; Hyponatremia [E87.1]; Kidney disease, chronic, stage III (GFR 30-59 ml/min) ([facility]) Allergies Active Allergy Reactions Criticality Noted Date [...] as of this encounter (statuses as of 01/23/2024) Medications Medication Sig Dispensed Refills Start Date [...] needed. 100 Tab 04/15/2020 Active Saline Nasal [place] 0.65 % Nasal Solution (Tre[place]len Nasal [place]) Two sprays in each nostril as needed [...] Active Commode BedsideIndications:C hronic diastolic heart failure (HCC),jail current use of diuretic Bedside commode. Use [...] by mouth daily 8 Packet 01/03/2024 Active documented as of this encounter (statuses as of 01/23/2024) Active Problems Problem Noted Date Diagnosed Date [...] as of this encounter (statuses as of 01/23/2024) Resolved Problems Problem Noted Date Diagnosed Date [...] as of this encounter (statuses as of 01/23/2024) Immunizations Name Administration Dates Next Due COVID-19 mRNA, LNP-s, No Pre serve, 2-Dose Series ([place]venue Right) 02/18/2021,08/10/2020,07/06/2020 COVID-19, MRNA-LNP, 23-24, P F, 30 MCG/0.3 mL, 12 YRS AND ABOVE, IM ([place]-Comirnat) 04/11/2023 Covid-19, Mrna, Lnp-s, Pf, B ivalent, [...] as of this encounter Progress Notes * Anais Gibson, PAN - 01/23/2024 11:00 AM EDT NUTRITION CONSULT - OUTPATIENT [facility] Name: Kathy Mccoy Location: NUTRITION SERVICES, [facility] Date: 01/23/2024 Time: 11:00 AM Patient was identified by name and date. Patient location: HOME. I was in a hospital or clinic location. After connecting through Novel,patient was verified with two unique identifiers. Patient (or authorized legal accounts payable representative) was then informed that this was a Telemedicine visit and being conducted confidentially over secure lines. Methods to assure confidentiality were taken. Patient acknowledged consent and understanding of pr ivacy and security of the Telemedicine visit. The patient agreed to participate. Reason for Referral: CKD Stage 3, Hyponatremia NUTRITION ASSESSMENT: Client History Patient is an 78 year old female referred for CKD, hyponatremia. She is accompanied by her daughterto appointment. Past Medical History: Diagnosis Date Arthritis of knee BIPOLAR AFFEC, DEPR-MOD 06/29/2009 Bipolar I disorder, most recent episode depressed ([facility]) Breast cancer ([facility]) 02/26/2020 Invasive Ductal Carcinoma left breast Breast carcinoma, female, left ([facility]) 04/01/2020 Cervicalgia 07/22/2009 Chronic bilateral low back pain with bilateral sciatica 12/16/2015 Chronic knee pain Chronic shoulder pain Diastolic dysfunction 06/18/2015 Endometrial cancer ([facility]) 2012 Epiretinal membrane, right eye 08/20/2012 23G PPV/MP for ERM OD, Dr. Plasencia Esophageal reflux 06/29/2009 History of bipolar disorder 07/14/2022 History of elevated glucose History of endometrial cancer 04/07/2017 History of hypertension 07/12/2017 History of wound infection 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 Major depressive disorder, recurrent, unspecified ([facility]) 09/11/2019 MGUS (monoclonal gammopathy of unknown significance) 04/15/2019 Mixed hyperlipidemia 11/06/2018 MRSA (methicillin resistant staph aureus) culture positive 09/02/2016 Nocturnal hypoxemia 06/18/2012 Nonrheumatic aortic valve stenosis 11/05/2018 Obstructive sleep apnea 06/18/2012 OCD (obsessive compulsive disorder) excessive checking to turn things off Other anxiety states Peripheral neuropathy 07/14/2022 Pulmonary arterial hypertension (HCC) Sleep apnea, obstructive Support System: Adult Children, Self Barriers To Learning: None Special Education Needs: None Food/Nutrition-Related History Describes typical diet history/24 hr recall Breakfast: Oatmeal Instant- High Protein or Eggs and Boost 1/2 10 grams protein Snacks: none Lunch: Eggs or Tuna Salad or Chicken salad sandwich Snacks: yogurt or pudding Dinner: Chicken or [place] or Roast or Fish, vegetables or salads or green beans or Peanut butter, lettuce and mayonnaise or Spaghetti and hamburgers Snacks: cottage cheese and apple butter or fruits - canned or ice cream Drinks: water, coffee, ice cream Restaurant meals: rare Alcohol: None Tobacco Use: No Diet Recall/Food Logs Indicate: Poor meal distribution Food and Nutrient Intake and other pertinent information: "Following a Fluid Restriction 1500 ml, low sodium diet and 70 grams protein. Taking Ure-Na. Daughters bring left overs". Food allergies and/or food intolerances: Avoids Spicy Foods Pertinent Medications (Current): Current Outpatient Medications Medication Sig Dispense Refill [...] hours as needed. 100 Tab0 Saline Nasal [place] 0.65 % Nasal Solution (Treutlen Nasal [place]) Two sprays in each nostril as needed [...] COVID-19 mRNA Vaccine 12 years and above [address] Right 30 MCG/0.3 ML IM SUSP Inject into [...] g by mouth daily 8 Packet 0 No current facility-administered medications for this visit. Supplements: Magnesium sulfate Prior Nutrition Counseling: No prior counseling Physical Activity: Sedentary Anthropometric Measurements There were no vitals taken for this visit. Wt Readings from Last 6 Encounters: 12/27/23 80.5 kg (177 lb 8 oz) 12/15/23 80.8 kg (178 lb 1.6 oz) 12/04/23 84.3 kg (185 lb 12.8 oz) 10/09/23 84.9 kg (187 lb 1.6 oz) 09/13/23 85.3 kg (188 lb) 06/21/23 87.9 kg (193 lb 11.2 oz) Usual Body Weight: Highest Weight: 202 lbs Lowest Weight: 177 lbs Weight Change: decreased by 16 pounds in the past 6 months Interpretation of weight change: no significant loss Weight Goal: deferred BMI: BMI Readings from Last 1 Encounters: 12/27/23 33.54 kg/m Nutrition-Focused Physical Findings Overall appearance: overweight/obese Digestive system: Heartburn, constipation Nerves and cognition: Awake, alert and Oriented Biochemical Data, Medical Tests, and Procedures Component Latest Ref Rng 12/27/2023 BUN 6 - 20 mg/dL 53 (H) Creatinine 0.5 - 1.0 mg/dL 0.9 Estimated Glomerular Filtration Rate >=60 mL/min 68 Sodium 135 - 146 mmol/L 136 Potassium 3.5 - 5.1 mmol/L 4.9 Chloride 98 - 107 mmol/L 97 (L) CO2 22 - 32 mmol/L 29 Anion Gap 7 - 15 mmol/L 10 Glucose 70 - 120 mg/dL 96 Calcium 8.4 - 10.2 mg/dL 9.9 Albumin 3.8 - 5.0 g/dL 3.9 Phosphorus 2.5 - 4.8 mg/dL 3.0 Legend: (H) High (L) Low NUTRITION DIAGNOSIS Altered nutrition-related laboratory values - sse above Food and nutrition-related knowledge deficit related to Lack of exposure to nutritional management of CKD Stage 3 and hyponatremia as evidenced by Reported diet and/or activity recall. NUTRITION INTERVENTION: FOOD AND/OR NUTRIENT DELIVERY Meals Snacks Supplements Comprehensive nutrition education Strategies Cardiac Education: 2000 mg Na Diet, List of High Sodium Foods, and Tips on Fluid Control Renal Education: Nutrition Guide for Chronic Kidney Disease, Nutrition for People with CKD Stage 3 & 4 , and Renal Sample Menus Other Education Material: Academy of [employer] and Dietetics Nutrition Care Manual Handout Food Labels and CKD, Grocery Guide and CKD, Leaching Potassium, Making Sense of Phosphorus, June Additives, Phosphorus Food Guide, Your Protein Needs, Tips on Fluids, Nuts and Seeds, Resources for Eating Well with CKD Nutrition Prescription: Diet: 2000 mg Sodium Renal 1500 ml FR Daily Calorie Needs: 2025 Kcals (25 kcal/kg/d) Daily Protein Needs: 70 Grams protein (per patient) Goals: Patient will demonstrate or verbalize knowledge of diet. Dietitian Action: Instructed pt on above diet usin mg Na Diet, List of High Sodium Foods, and Tips on Fluid Control Renal Education: Nutrition Guide for Chronic Kidney Disease, Nutrition for People with CKD Stage 3 & 4 , and Renal Sample Menus Other Education Material: Academy of Nutrition and Dietetics Nutrition Care Manual Handout Food Labels and CKD, Grocery Guide and CKD, Leaching Potassium, Making Sense of Phosphorus, June Additives, Phosphorus Food Guide, Your Protein Needs, Tips on Fluids, Nuts and Seeds, Resources for Eating Well with CKD Reviewed the above information with Kathy and her daughter(sent nutrition education materials via my chart and in the mail per patient preference). Recommendations to Ordering Provider: Continue current plan of nutrition care. NUTRITION MONITORING AND EVALUATION: The following will be monitored and evaluated at the next visit: Monitor weight. Monitor labs. Plan:Patient scheduled to return prn; dietitian phone # given for future reference. 60 minutes Medical Nutrition Therapy 15 min (8-22 min) 30 min (23-37 min) 45 min (38-52 min) 60 min (53-67 min) 75 min (68-82 min) 90 min (83-97 min) 105 min (98-113 min) Time In: 1100 (01/23/24 1100) Time Out: 1153 (01/23/24 1153) Anais Restrepo RDN [facility], [facility] documented in this encounter Plan of Treatment Upcoming Encounters Date Type Department Care Team (Late st Contact Info) Description 01/25/2024 11:00 AM EDT Telemedicine Genetics HemOnc, [facility] [address] [place] [address] Tonya Jovel, MS [address] [facility] [place] [id number] 01/31/2024 1:00 PM EDT Office Visit Nephrology, [facility] [address] [place] [address] Haresh Mark MD [address] [place], [place] [id number] 02/06/2024 1:30 PM EDT Telemedicine Psychiatry [facility] [address] [place] [address] Zee Zapata MD [address] [place] [address] 04/29/2024 2:15 PM EST Office Visit Urology, [facility] [address] [facility] [place] [address] Mendel Macedo MD [address] [place] [id number] 06/04/2024 3:40 PM EST Telemedicine Sleep Disorders [facility] [address] [place] [id number] Charmaine Mckeon, [address] [place] [id number] 06/28/2024 1:00 PM EST Office Visit General Internal Medicine [facility] [place] [address] [facility] [place] [address] Patience Berrios PA-C [address] [facility] [place] [address] 10/14/2024 2:00 PM EDT Nurse Only Ancillary [facility] [address] [facility] [place], [place] [phone] Shilpa, Nurse Annual Wellness [facility] [address] [facility] [place] [id number] Scheduled Referrals Name Type Priority Associated Diagnoses Orde r Schedule NUTRITION-CLINICAL DIETITIAN REFERRAL OP Referral Within 10 days (routine) Hyponatremia Ordered: 01/01/2024 Health Maintenance Due Date Last Done Comments COVID-19 Vaccine ( season) 2023 04/11/2023, 03/22/2022, 02/18/2021, Additional history exists Influenza Vaccine (FLU shot) (#1) 2024 02/07/2023, 02/08/2022, 02/08/2021, Additional history exists DXA Scan 09/20/2024 09/20/2021, 08/28, 10/23/2013, Additional history exists Adult Wellness Visit 10/08/2024 10/09/2023, 10/06/2022, 08/20/2021 HbA1c 12/14/2024 12/15/2023, 12/2023, 07/13/2022, Additional history [...] this encounter Visit Diagnoses Diagnosis History of renal failure- Primary Personal history of other disorder of urinary system Hyponatremia [E87.1] Hyposmolality and/or hyponatremia Kidney disease, chronic, stage III (GFR 30-59 ml/min) (HCC) Chronic kidney disease, Stage III (moderate) documented in this encounter Advance Directives * Full Code (Latest Code Status on File) Date Activated Date Inactivated Comments 09/24/2012 8:15 PM 10/02/2012 7:35 PM This order re flects the patients wishes and were consensually agreed upon. Care Teams Tufter Operator Relationship Specialty Start Date End Date Jose M Seth MD [address] [place] [address] PCP - General Internal Medicine 11/21/11 documented as of this encounter
--- OUTSIDE RECORDS SUMMARY | 2024-02-28 21:43 | External Medical Summary | Summary of Care ---
Author Name Unknown Organization [facility] Address [address] [place] [address] Phone [phone] Care Team Providers Care Recordak Operator Name Role Phone Jose M Seth MD Primary Care Provider + Reason for Referral * Evaluate & Treat - Unlimited Visits (Within 10 days (routine)) - Authorized Specialty Diagnoses / Procedures Referred By Nelia noble Referred To Contact Psychiatry / Psychology Diagnoses Confusion Patience Berrios PA-C [address] [place] [address] Referral ID Status Reason Start Date Expiration Date Visits Requested Visits Authorized [id number] Authorized Specialty Services Required 12/27/[phone] Question Answer Referral Priority Within 10 days (routine) Where should this appointment be scheduled? [facility] Is this referral for medication management? No What condition is this patient being seen for? Mild Cognitive Impairment/Mild Neurocognitive Disorder Does the patient have SEVERE cognitive impairment on bedside screeners? (MoCA/MMSE <= 10) No Comments Neuropsychological evaluations are INTERACTIVE and use materials that require a patient to SEE, HEAR, and often WRITE. If a patient is unable to engage in this way, neurocognitive assessment may be abbreviated or deemed inappropriate. Please use caution in establishing expectations with your patient, and note any limitations in the comments section of the referral order. Reason for Visit * Reason Onset Date Comments Hospital Follow-Up Feeling tired & weak Hospital Follow-Up 12/27/2023 Encounter Details Date Type Department Care Team (Late st Contact Info) Description 12/27/2023 11:20 AM EDT Office Visit General Internal Medicine [place] Ailyn Cevallos [address] [place] [address] Patience Berrios PA-C [address] [facility] [place] [address] Hospital discharge follow-up*; Acute hyponatremia; Cervical pain; Chronic diastolic heart failure (HCC); Confusion Allergies Active Allergy Reactions Criticality Noted Date [...] needed. 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 Use [...] mRNA, LNP-s, No Pre serve, 2-Dose Series (Brandark) 02/18/2021,08/10/2020,07/06/2020 COVID-19, MRNA-LNP, 23-24, P F, 30 MCG/0.3 mL, 12 YRS AND ABOVE, IM ([facility]) 04/11/2023 Covid-19, Mrna, Lnp-s, Pf, [...] 10/09/2023 Does the household have a re lar source of income? (Household - for ages [...] Sign Reading Time Taken Comments Blood Pressure 90/52 12/27/2023 11:33 AM EDT Pulse 71 12/27/2023 11:33 AM EDT Temperature 37.1 C (98.7 F) 12/27/2023 11:33 AM E DT Respiratory Rate 16 12/27/2023 11:33 AM EDT Oxygen Saturation 96% 12/27/2023 11:33 AM EDT Inhaled Oxygen Concentration - - Weight 80.5 kg (177 lb 8 oz) 12/27/2023 11:33 AM EDT Height - - Body Mass Index 33.54 10/09/2023 1:18 PM EDT documented in this encounter Progress Notes * Patience Berrios PA-C - 12/27/2023 11:37 AM EDT SUBJECTIVE: Kathy Mccoy is a 78 year old female. Chief Complaint Patient presents with Hospital Follow-Up Feeling tired & weak Hospital Follow-Up Recent Admission: Patient was recently admitted to [facility]. The date of discharge was 12/24/23. Discharge report receivedand reviewed. HPI: Pt here today for a HFU after being admitted from 12/20-12/23 with concerns of weakness and neck/arm pain. Also with ongoing hyponatremia. Nephro again consulted--recommended urea once a day. Twice daily was given while inpatient, but pt cannot afford to continue this outpatient. Pt also with 1.5 L fluid restriction and >80 g daily protein recommendation. Neuro work-up was negative. MRI of brain with no stroke. MRI of c-spine with mild DDD. Arm pain hasresolved. Pt was on Lasix previously for CHF--this has been discontinued due to decline in renal function andelectrolyte changes. Also noted that pt seemed to be confused at times throughout stay. UA not suggestive of infection. Recommended outpatient neuropsych testing. Pt here today with her daughter who is her caregiver. Pt also has [facility] services coming in. Patient Active Problem List Diagnosis Obstructive sleep [...] 1 Tablet by mouth in the morning. Saline Nasal [place] 0.65 % Nasal Solution (White Salmon Nasal [place]) Two sprays in each nostril as needed [...] (Ure-Na) Take 15 g by mouth daily PROCARE ADULT BRIEFS X-LARGE MISC use as needed for urinary incontinence 2 Box 11 Incontinence Supply Disposable (BAN SKIN-CARING WASHCLOTHS) MISC Use as needed for incontinence. Dispense 2 tubs monthly DX R32 2 Each 5 Acetaminophen 500 MG Oral Tablet (TYLENOL) Take 2 Tablets by mouth every 8 hours as needed. 100 Tab0 Probiotic Acidophilus BioBeads Oral Capsule Take 1 Capsule by mouth in the morning and 1 Capsule atnoon and 1 Capsule in the evening. Take with meals. (Patient not taking: Reported on 12/15/2023) COVID-19 mRNA Vaccine 12 years and above Brandark 30 MCG/0.3 ML IM SUSP Inject into [...] Hcl] Problems breathing, overly dry OBJECTIVE: BP 90/52 | Pulse 71 | Temp 37.1 C (98.7 F) (Tympanic) | Resp 16 | Wt 80.5 kg (177 lb 8 oz) | SpO2 96% | BMI 33.54 kg/m | BSA 1.86 m REVIEW OF SYSTEMS: Review of Systems Respiratory: Negative for shortness of breath. Cardiovascular: Negative for chest pain. Gastrointestinal: Negative. Genitourinary: Negative. Neurological: Positive for weakness. PHYSICAL EXAM: BP 90/52 | Pulse 71 | Temp 37.1 C (98.7 F) (Tympanic) | Resp 16 | Wt 80.5 kg (177 lb 8 oz) | SpO2 96% | BMI 33.54 kg/m | BSA 1.86 m Physical Exam Constitutional: General: She is not in acute distress. Appearance: She is not diaphoretic. HENT: Mouth/Throat: Mouth: Mucous membranes are moist. Pharynx: Oropharynx is clear. Cardiovascular: Rate and Rhythm: Normal rate and regular rhythm. Pulmonary: Effort: Pulmonary effort is normal. Breath sounds: Normal breath sounds. Abdominal: General: Bowel sounds are normal. Palpations: Abdomen is soft. Musculoskeletal: Cervical back: Normal range of motion and neck supple. Right lower leg: Pitting Edema (trace) present. Left lower leg: Pitting Edema (trace) present. Skin: General: Skin is warm and dry. Neurological: General: No focal deficit present. Mental Status: She is alert. ASSESSMENT: Hospital discharge follow-up (Primary) - DISCH MED RECON CUR MED LIS Acute hyponatremia Recheck sodium and renal function today. Continue Urea 15 g daily. Info for protein intake with kidney disease provided. - BASIC METABOLIC PANEL; Future; Expected date: 12/27/2023 Cervical pain Resolved. Chronic diastolic heart failure (HCC) Discussed wearing knee high compression socks and elevating legs when possible to prevent fluid build up. No significant swelling today. Confusion Pt with ongoing confusion. Will refer for formal neuropsych evaluation. - ADULT/PEDS NEUROPSYCHOLOGY REFERRAL OP Follow Up: Return in about 6 months (around 06/28/2024) for Return with Physician. | For: Return with Physician PLAN: Continue present medication(s): Referral(s) to: Neuropsychology Schedule labs: BMP today Follow up in 6 month(s) with PCP. Will f/up sooner PRN. I spent a total of 40-54 minutes (exact time 48 mins) minutes on the date of service in preparation, delivery, and documentation of the care provided to Kathy Mccoy excluding any time spent in performance of separately billed services. Patience Berrios PA-C documented in this encounter Nursing Notes * Jacquie Montanez LPN - 12/27/2023 11:30 AM EDT Hospital Follow-Up (Feeling tired & weak) documented in this encounter Miscellaneous Notes * Pt Handout (on AVS) - Patience Berrios PA-C - 12/27/2023 11:55 AM EDT Images from the original note were not included. [id number] Diet for Chronic Kidney Disease Following a special diet when you have kidney disease can help you stay as healthy as possible. Your healthcare provider or dietitian should make a special diet plan just for you. Eating right Here are some good eating rules to follow: Protein. Eating protein is important for your body. But too much protein can put a strain on your kidneys. Eating less protein may slow the progression of chronic kidney disease. Foods high in protein include meat, fish, beans, nuts, eggs, cheese, and other dairy products. A registered dietitian can help you plan a diet that has the right amount of protein for you. Sodium. Having too much salt in your diet can make your body to hold onto (retain) water. Ask your provider or dietitian how much sodium per day you are allowed. This will help you prevent fluid buildup in your body (fluid retention). It can also help control high blood pressure. Learn to read food labels to find how much sodium is in one serving. Foods high in salt include processed meats, canned and boxed foods, sauces, salted chips and snacks, pickled foods, frozen dinners, and restaurantand fast food. Fluids. If you have advanced kidney disease, you will need to limit the water and fluids you drink. If you don?t, then too much water will build up in your body. The exact amount of fluid you can drink depends on how well your kidneys are working. Ask your provider how much water you can safely drink each day. Potassium. In advanced kidney disease, your potassium level can get dangerously high. This affects your heart. It can cause an irregular heartbeat (arrhythmia). Ask your provider or dietitian if you should limit potassium in your diet. Foods high in potassium include dairy products (milk, yogurt, cheese), beans, bananas, oranges, potatoes, tomatoes, spinach, cantaloupe, honeydew melon, dried fruits, and nuts. Some salt substitutes also contain potassium, so be sure to read the label before using them. Calcium. Calcium is important to build strong bones. But foods high in calcium are also high in phosphorus, which can take calcium from your bones. Limiting foods high in phosphorus will help keepcalcium in your bones. Ask your provider how much calcium you should get each day. Phosphorus. In advanced kidney disease, your phosphorus level can get dangerously high. This affects many systems in the body and can damage your heart. Limit your intake of phosphorus-rich foods.These include beans and peas, nuts, peanut butter, cocoa, beer, cola drinks, and dairy products. Last Reviewed Date: 11/26/202119996623-6965 [employer]. All rights reserved. This information is not intended as a substitute for professional medical care. Always follow your healthcare professional's instructions. * Pt Handout (on AVS) - Patience Berrios PA-C - 12/27/2023 11:55 AM EDT Images from the original note were not included. [id number] Kidney Disease: Getting the Right Amount of Protein Your body needs protein to build and repair muscles and bones and recover from injury. As the body uses protein, a waste product called blood urea nitrogen (BUN) is made. If your kidneys can?t filterwaste from your blood well, the BUN level in your blood goes up. If the level gets too high, you can become sick. Because of this, you need to control the amount of protein you eat each day. Use thishandout to help you. One portion (3 to 4 ounces) of fish, chicken, or red meat is about the size of a deck of playing cards. Measuring protein content You may know how many grams of protein to eat, but most food portions are measured in ounces. Use the chart below to help see the protein content of some common foods. Protein content measurements Protein source Amount in ounces Amount in grams Chicken breast 3 to 4 ounces 21 to 28 grams Chicken thigh 2 to 2.5 ounces 14 to 18 grams Fish 3 ounces 21 grams Pork chop 2 to 2.5 ounces 14 to 18 grams Roast beef 3 ounces 21 grams Steak 3 to 4 ounces 21 to 28 grams Hamburger 3 to 4 ounces 21 to 28 grams Eggs 1 egg 7 grams Cheese 1 ounce 7 grams Most beans 4 ounces 7 to 10 grams Tofu 2 ounces 5 grams Most nuts 2 ounces 5 to 8 grams If you eat too much protein Eating too much protein may cause: Nausea or vomiting Tiredness (fatigue) Mental confusion Increased potassium levels Increased phosphorus levels Increased time on hemodialysis Risk of speeding the loss of kidney function If you eat too little protein Eating too little protein may cause: Muscle loss and weakness Tiredness Weight loss Slower wound healing Talk with your healthcare provider If you?re having trouble getting the right amount of protein, ask your provider to refer you to a dietitian. They can help you learn ways to stay on target. Last Reviewed Date: 11/26/202119998211-4328 [employer]. All rights reserved. This information is not intended as a substitute for professional medical care. Always follow your healthcare professional's instructions. documented in this encounter Plan of Treatment Upcoming Encounters Date Type Department Care Team (Late st Contact Info) Description 01/25/2024 11:00 AM EDT Telemedicine Genetics [facility], [address] [address] Tonya Jovel, [place] [address] [place] [address] 01/31/2024 1:00 PM EDT Office Visit Nephrology, [facility] [address] [facility] [place] [address] Haresh Mark MD [address] [facility] [place] [address] 04/29/2024 2:15 PM EST Office Visit Urology, [facility] [address] [place] [address] Mendel Macedo MD [address] [place] [address] 06/04/2024 3:40 PM EST Telemedicine Sleep Disorders Ctr [facility] [address] [place] [id number] Charmaine Mckeon DO [address] [place] [address] 06/28/2024 1:00 PM EST Office Visit General Internal Medicine [facility] [place] [address] [place] [address] Patience Berrios PA-C [address] [facility] [place] [address] 10/14/2024 2:00 PM EDT Nurse Only Ancillary [facility] [place] [address] [facility] [place] [address] Shilpa Nurse Annual Wellness [facility] [address] [facility] [place] [address] Scheduled Referrals Name Type Priority Associated Diagnoses Order Schedule ADULT/PEDS NEUROPSYCHOLOGY REFERRAL OP Referral Within 10 days (routine) Confusion Ordered: 12/27/2023 Health Maintenance Due Date Last Done Comments COVID-19 Vaccine ( season) 2023 04/11/2023, 03/22/2022, 02/18/2021, Additional history exists Influenza Vaccine (FLU shot) (#1) 2024 02/07/2023, 02/08/2022, 02/08/2021, Additional history exists DXA Scan 09/20/2024 09/20/2021, /09/2021, 10/23/2013, Additional history exists HbA1c 12/14/2024 12/15/2023, [...] follow-up examination Acute hyponatremia Hyposmolality and/or hyponatremia Cervical pain Cervicalgia Chronic diastolic heart failure (HCC) Chronic diastolic heart failure Confusion Unspecified psychosis documented in this encounter Advance Directives * Full Code (Latest Code Status on File) Date Activated Date Inactivated Comments 09/24/2012 8:15 PM 10/02/2012 7:35 PM This order re flects the patients wishes and were consensually agreed upon. Care Teams Recordak Operator Relationship Specialty Start Date End Date Jose M Seth MD [address] [place] [address] PCP - General Internal Medicine 11/21/11 documented as of this encounter
--- OUTSIDE RECORDS SUMMARY | 2024-02-28 21:43 | External Medical Summary | Summary of Care ---
Author Name Unknown Organization [facility] Address [address] [place] [address] Phone [phone] Care Team Providers Care Bronze Plater Name Role Phone Jose M Seth MD Primary Care Provider + Encounter Details Date Type Department Care Team (Late st Contact Info) Description 01/24/2024 Telephone Psychiatry [place] [address] [place] [address] Zee Zapata MD [address] [place] [address] Allergies Active Allergy Reactions Criticality [...] needed. 100 Tab 04/15/2020 Active Saline Nasal [place] 0.65 % Nasal Solution ([place] Nasal [place]) Two sprays in each nostril as needed [...] Active Commode BedsideIndications:C hronic diastolic heart failure (HCC),halfway current use of diuretic Bedside commode. Use [...] LNP-s, No Pre serve, 2-Dose Series ([employer]) 02/18/2021,08/10/2020,07/06/2020 COVID-19, MRNA-LNP, 23-24, P F, 30 MCG/0.3 mL, 12 YRS AND ABOVE, IM [facility] 04/11/2023 Covid-19, Mrna, Lnp-s, Pf, B ivalent, 30 Mcg, IM, 12 yrs and above ([employer]) 03/22/2022 Pneumococcal Conjugate Vacc, 13 Valent (Prevnar) [...] encounter Miscellaneous Notes * Telephone Encounter - Lizbeth Wilson OSA - 01/24/2024 10:30 AM EDT Sent to Dr. Kristen Sosa request * Telephone Encounter - Lizbeth Wilson OSA - 01/24/2024 9:26 AM EDT Patient Requesting Refill Prescribing Provider: Jodi Medication: Grecia [facility] Last Visit Date: 12/25/23 Future Visit Date: 02/06/24 documented in this encounter Plan of Treatment Upcoming Encounters Date Type Department Care Team (Late st Contact Info) Description 01/25/2024 11:00 AM EDT [facility] [address] [place] [address] Tonya Jovel, MS [address] [place] [address] 01/31/2024 1:00 PM EDT Office Visit NephrologyBrian [address] [place] [address] Haresh Mark MD [address] [place] [address] 02/06/2024 1:30 PM EDT [facility]medicine [facility]iat[facility] [facility] [address] [place] [address] Zee Zapata MD [address] [place] [address] 04/29/2024 2:15 PM EST Office Visit Urology, [facility] [address] [facility] [place] [address] Mendel Macedo MD [address] [place] [address] 06/04/2024 3:40 PM EST Telemedicine Sleep Disorders Ctr [facility] [address] [facility] [place] [phone] Charmaine Mckeon, [address] [place] [address] 06/28/2024 1:00 PM EST Office Visit General Internal Medicine [facility] [address] [facility] [place] [address] Patience Berrios PA-C [address] [facility] [place] [place] [address] 10/14/2024 2:00 PM EDT Nurse Only Ancillary [facility] [address] [facility] [place] [address] Shilpa, Nurse Annual Wellness [address] [facility] [place] [address] Health Maintenance Due Date Last Done Comments [...] and were consensually agreed upon. Care Teams Bronze Plater Relationship Specialty Start Date End Date Jose M Seth MD [address] [place] [address] PCP - General Internal Medicine 11/21/11 documented as of this encounter
--- OUTSIDE RECORDS SUMMARY | 2024-02-28 21:43 | External Medical Summary | Summary of Care ---
Author Name Unknown Organization [facility] Address [address] [place] [address] Phone [phone] Care Team Providers Care Case Work Aide Name Role Phone Jose M Seth MD Primary Care Provider + Reason for Visit * Reason Comments Genetic Counseling * Evaluate & Treat - Unlimited Visits (Within 10 days (routine)) - Authorized Specialty Diagnoses / Procedures Referred By Nelia noble Referred To Contact Medical Genetics / Hematology Oncology Diagnoses History of breast cancer Marietta Salazar CRNP [address] [place] [address] Referral ID Status Reason Start Date Expiration Date Visits Requested Visits Authorized [id number] Authorized Specialty Services Required [phone] Encounter Details Date Type Department Care Team (Late st Contact Info) Description 01/25/2024 11:00 AM EDT Telemedicine Genetics HemOnc, [facility] [address] [place] [address] Rashaad Jovel, MS [address] [facility] [address] History of endometrial cancer*; Triple [...] needed. 100 Tab 04/15/2020 Active Saline Nasal [place] 0.65 % Nasal Solution ([place] Nasal [place]) Two sprays in each nostril as needed [...] Jose M Seth MD Pharmacy: Maricruz Foster [facility] 08/09/2013 12/16/2015 Dementia 07/19/2013 [...] mRNA, LNP-s, No Pre serve, 2-Dose Series ([email or web address]) 02/18/2021,08/10/2020,07/06/2020 COVID-19, MRNA-LNP, 23-24, P F, 30 MCG/0.3 mL, 12 YRS AND ABOVE, IM ([facility]) 04/11/2023 Covid-19, Mrna, Lnp-s, Pf, B ivalent, 30 Mcg, IM, 12 yrs and above ([email or web address]) 03/22/2022 Pneumococcal Conjugate Vacc, 13 Valent (Prevnar) [...] EDT You spoke with Rashaad Jovel MS, [facility] on 01/25/2024 for a Cancer Genetics Risk Assessment. TODAY'S SUMMARY If you have questions about your risk assessment, evaluation, testing process, or results, contact our clinic at [phone] or send a [employer] message. You agreed to complete genetic testing today. Results are expected in approximately 3 weeks from sample collection and will appear in the [employer] portal under "Test Results." I will contact you with your results. You can request an electronic copy of your report through [facility]'s secure web-portal. Insurance Coverage: The laboratory ([employer]) will complete prior authorization for genetic testing, if required. If your estimated out of pocket expense after insurance processing is >$100, [employer] will contact you to discuss options based on your specific financial situation. Visit this link for more information or contact the laboratory billing department at [phone] or [email or web address]. Sample Collection: You will have 1 tube of blood drawn for this test. Please wait 2 business days before going to any [facility] lab to ensure your order has been signed. Lab order: Multi Cancer Panel, [facility] Ordering Provider: JA Haney. For assistance finding [facility] Laboratory locations and hours, visit: [email or web address] Read more about genetic testing here: Hereditary [...] go to [email or web address] Sincerely, Rashaad Jovel MS, [facility] -- Licensed, Certified Genetic Counselor Cancer Genetics Risk Assessment Clinic Department of Genomic Health at [facility] (P) [phone] | (F) [phone] | (E) [email or web address] documented in this encounter Progress Notes * Rashaad Jovel DevineMS harjeet - 01/25/2024 11:00 AM EDT Images from the original note were not included. Cancer Genetic Risk Assessment Clinic at [facility] | | Email: [email or web address] Location: [place] [address] Dept. Referring Provider: EZEQUIEL Leal* Name: Kathy Mccoy Date: 01/25/2024 - 11:00 AM EDT Present for consult: Rashaad Devi MS, [facility] Visit Type: Phone. The patient is located in the [facility]. The treating clinician is located not in [...] PLAN: Test Ordered: Multi-Cancer Panel + Expanded Breast/Cable Tender Panel at [facility] (74 genes) Genes Included: AIP, ALK, APC, OCTAVIO, AXIN2, BAP1, BARD1, BLM, BMPR1A, BRCA1, BRCA2, BRIP1, CDC73, CDH1, CDK4, CDKN1B, CDKN2A (p14ARF), CDKN2A ([id number]), CHEK2, CTNNA1, DICER1, EGFR, EPCAM, FH, FLCN, GREM1, HOXB13, KIT, LTZR1, MAX, MBD4, MEN1, MET, MITF, MLH1, MSH2, MSH3, MSH6, MUTYH, NF1, NF2, NTHL1, PALB2, PDGFRA, PMS2, POLD1, POLE, POT1, GPKOO6J, PTCH1, PTEN, RAD51C, RAD51D, RB1, RET, SDHA, SDHAF2, SDHB, SDHC, SDHD, SMAD4, SMARCA4, SMARCB1, SMARCE1, STK11, SUFU, BEYO254, TP53, TSC1, TSC2, VHL+ FANCC, FANCM, NBN, RECQL Blood sample to be collected at a later date; results anticipated in 3 weeks from sample collection. Results disclosure preferred by: MyG and phone. PAST MEDICAL HISTORY: Breast Hx: Personal history of breast cancer diagnosed age 74; Invasive Ductal Carcinoma, [place]-, [place]-,and Her2/[place]-; Treatment: Surgery, Radiation, and Chemotherapy. Cable Tender/ Hx: Personal history of uterine cancer diagnosed [...] in 5 years COLONOSCOPY, DIAGNOSTIC (RECTUM) 04/13/2016 normal/[facility] EGD, FLEXIBLE, DIAGNOSTIC 04/13/2016 acid reflux/[facility] EGD, FLEXIBLE, DIAGNOSTIC 02/24/2022 normal / ESOPHAGOGASTRODUODENOSCOPY (EGD), FLEXIBLE, TRANSORAL, DIAGNOSTIC performed by Rober Redding MD at ENDOSCOPY [facility] IDENTIFY SENTINEL NODE, RADIOACTIVE TRACER Left 12/30/2020 INJECTION PROCEDURE FOR IDENTIFICATION SENTINEL NODE performed by Vijaya Samano MD at [facility] INFORMATION 11/13/2012 11/13/2012 insertion of A-port - left shoulder [facility] Dr. Vijaya Samano MASTECTOMY, PARTIAL Left [...] OVARIES performed by Jacey Jewell MD at 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 Rashaad Jovel MS, [facility] Licensed, Certified Genetic Counselor This note is [...] NephBrian broderick [address] [address] Haresh Mark MD [address] [address] 02/06/2024 1:30 PM EDT Telemedicine Psychiatry [place] Srinivasan [address] [place] [address] Zee Zapata MD [address] [place] [address] 04/29/2024 2:15 PM EST Office Visit Urology, [facility] [address] [place] [address] Mendel Macedo MD [address] [place] [id number] 06/04/2024 3:40 PM EST Telemedicine Sleep Disorders Ctr [facility] 132 [facility] [place] [place] [address] Charmaine Mckeon DO 132 [facility] [place] [address] 06/28/2024 1:00 PM EST Office Visit General Internal Medicine [facility] [address] [place] [address] Patience Berrios, DAVIS 200 [facility] [place] [place] [address] 10/14/2024 2:00 PM EDT Nurse Only Ancillary [facility] 200 [facility] [place] [address] Shil[place], Nurse Annual Wellness [address] [place] [address] Health Maintenance Due Date Last Done Comments [...] and were consensually agreed upon. Care Teams Case Work Aide Relationship Specialty Start Date End Date Jose M Seth MD [address] [place], [place] [address] PCP - General Internal Medicine 11/21/11 documented as of this encounter
--- OUTSIDE RECORDS SUMMARY | 2024-02-28 21:44 | External Medical Summary | Summary of Care ---
Author Name Unknown Organization [facility] Address [address] [place] [address] Phone [phone] Care Team Providers Care Scientific Informatics Leader Name Role Phone Jose M Seth MD Primary Care Provider + Encounter Details Date Type Department Care Team (Late st Contact Info) Description 12/25/2023 Population Health External Data Unspecified Department Allergies [...] as of this encounter (statuses as of 12/25/2023) Medications Medication Sig Dispensed Refills Start Date [...] needed. 100 Tab 04/15/2020 Active Saline Nasal [place] 0.65 % Nasal Solution ([place] Nasal [place]) Two sprays in each nostril as needed [...] Active Commode BedsideIndications:C hronic diastolic heart failure (HCC),FDC current use of diuretic Bedside commode. Use [...] as of this encounter (statuses as of 12/25/2023) Active Problems Problem Noted Date Diagnosed Date [...] as of this encounter (statuses as of 12/25/2023) Resolved Problems Problem Noted Date Diagnosed Date [...] Jose M Seth MD Pharmacy: Maricruz Foster [facility] 08/09/2013 12/16/2015 Dementia 07/19/2013 2017 Encounter for [...] as of this encounter (statuses as of 12/25/2023) Immunizations Name Administration Dates Next Due COVID-19 mRNA, LNP-s, No Pre serve, 2-Dose Series (ESILLAGE) 02/18/2021,08/10/2020,07/06/2020 COVID-19, MRNA-LNP, 23-24, P F, 30 [...] Care Team (Late st Contact Info) Description 12/25/2023 1:30 PM EDT Office Visit Psychiatry, [facility] [address] [place] [address] Paty Haynes CRNP [address] [place] [address] 01/25/2024 11:00 AM EDT Telemedicine Genetics HemOnc, [facility] [address] [place] [address] Tonya Jovel, MS [address] [place] [address] 01/31/2024 1:00 PM EDT Office Visit Nephrology, [facility] 200 [facility] [place] [address] Haresh Mark MD [address] [place] [address] 04/29/2024 2:15 PM EST Office Visit Urology, [facility] 132 [facility] [place] [address] Mendel Macedo MD 27 [facility] [place] [address] 06/04/2024 3:40 PM EST Telemedicine Sleep Disorders Ctr [facility] 132 [facility] [place] [phone] Charmaine Mckeon DO [address] [facility] [place] [address] 10/14/2024 2:00 PM EDT Nurse Only Ancillary [facility] [place] [address] [address] [address] Shilpa Nurse Annual Wellness [facility] 200 [facility] [place] [address] Health Maintenance Due Date Last Done Comments [...] and were consensually agreed upon. Care Teams Scientific Informatics Leader Relationship Specialty Start Date End Date Jose M Seth MD [address] [place], [place] [address] PCP - General Internal Medicine 11/21/11 documented as of this encounter
--- OUTSIDE RECORDS SUMMARY | 2024-02-28 21:44 | External Medical Summary | Summary of Care ---
Author Name Unknown Organization [facility] Address [address] [place] [address] Phone [phone] Care Team Providers Care Forestry Consultant Name Role Phone Jose M Seth MD Primary Care Provider + Encounter Details Date Type Department Care Team (Late st Contact Info) Description 12/23/2023 Orders Only PATIENT PORTAL DO NOT DELETE THIS DEPT USED BY [place] [id number] Allergies Active Allergy Reactions Criticality [...] as of this encounter (statuses as of 12/23/2023) Medications Medication Sig Dispensed Refills Start Date [...] needed. 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 Use [...] as of this encounter (statuses as of 12/23/2023) Active Problems Problem Noted Date Diagnosed Date [...] as of this encounter (statuses as of 12/23/2023) Resolved Problems Problem Noted Date Diagnosed Date [...] 10/15/13 PCP: Jose M Seth MD [facility] 08/09/2013 12/16/2015 Dementia 07/19/2013 2017 [...] as of this encounter (statuses as of 12/23/2023) Immunizations Name Administration Dates Next Due COVID-19 mRNA, LNP-s, No Pre serve, 2-Dose Series ([place]) 02/18/2021,08/10/2020,07/06/2020 COVID-19, MRNA-LNP, 23-24, P F, 30 [...] 12/25/2023 1:30 PM EDT Office Visit Psychiatry, [place] [address] [place] [address] Paty Haynes CRNP 200 [facility] [place] [address] 01/25/2024 11:00 AM EDT [facility] [address] [place] [address] Tonya Jovel, MS 132 [facility] [place] [address] 01/31/2024 1:00 PM EDT Office Visit Nephrology, [facility] 200 [facility] [place] [address] Haresh Mark MD 200 [facility] [place] [address] 04/29/2024 2:15 PM EST Office Visit Urology, [facility] 132 [facility] [place] [address] Mendel Macedo MD [address] [place] [id number] 06/04/2024 3:40 PM EST Telemedicine Sleep Disorders Ctr [facility] 132 [facility] [place] [phone] Charmaine Mckeon DO 132 [facility] [place] [address] 10/14/2024 2:00 PM EDT Nurse Only Ancillary [facility] [place] 200 [facility] [place] [address] Shilpa Nurse Annual Wellness [place] [address] [address] Health Maintenance Due Date Last Done Comments COVID-19 Vaccine (2022- season) 2023 04/11/2023, 03/22/2022, 02/18/2021, Additional history exists Influenza Vaccine (FLU shot) (#1) 2024 02/07/2023, 02/08/2022, 02/08/2021, Additional history exists DXA Scan 09/20/2024 09/20/2021, /2 09/2021, 10/23/2013, Additional history exists HbA1c 12/14/2024 [...] and were consensually agreed upon. Care Teams Forestry Consultant Relationship Specialty Start Date End Date Jose M Seth MD [address] [place] [address] PCP - General Internal Medicine 11/21/11 documented as of this encounter
--- OUTSIDE RECORDS SUMMARY | 2024-02-28 21:44 | External Medical Summary | Summary of Care ---
Author Name Unknown Organization [facility] Address [address] [place] [address] Phone [phone] Care Team Providers Care Slunk Skinner Name Role Phone Jose M Seth MD Primary Care Provider + Reason for Visit * Reason Onset Date Comments Other 12/22/2023 DME order Encounter Details Date Type Department Care Team (Late st Contact Info) Description 12/22/2023 Telephone Sleep Disorders Ctr Sinan [place] [address] [place] [address] Charmaine Mckeon DO [address] [place] [address] Other (DME order ) Allergies Active Allergy Reactions Criticality Noted [...] as of this encounter (statuses as of 12/22/2023) Medications Medication Sig Dispensed Refills Start Date [...] needed. 100 Tab 04/15/2020 Active Saline Nasal [place] 0.65 % Nasal Solution ([place] Nasal Sweetser) Two sprays in each nostril as needed [...] as of this encounter (statuses as of 12/22/2023) Active Problems Problem Noted Date Diagnosed Date [...] -- AHI 10.7, <89% [address] [facility] Returned machine Jun 2013 Nocturnal hypoxemia 06/18/2012 Overview: [address] [facility] 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 documented as of this encounter (statuses as of 12/22/2023) Resolved Problems Problem Noted Date Diagnosed Date [...] as of this encounter (statuses as of 12/22/2023) Immunizations Name Administration Dates Next Due COVID-19 mRNA, LNP-s, No Pre serve, 2-Dose Series ([place] [address]) 02/18/2021,08/10/2020,07/06/2020 COVID-19, MRNA-LNP, 23-24, P F, 30 [...] money to buy more. Never true 10/09/19 Within the past 12 months, t he [...] encounter Miscellaneous Notes * Telephone Encounter - Haylee Guerin OSA - 12/22/2023 1:35 PM EDT DME order for mask submitted to [facility]. documented in this encounter Plan of Treatment Upcoming Encounters Date Type Department Care Team (Late st Contact Info) Description 12/25/2023 1:30 PM EDT Office Visit Psychiatry, [facility] 200 [facility] [place] [address] Paty Haynes CRNP 200 [facility] [place] [address] 01/25/2024 11:00 AM EDT [facility]medicine [facility] [address] [address] Tonya Jovel, MS [address] [place] [address] 01/31/2024 1:00 PM EDT Office Visit Nephrology, [facility] 200 [facility] [place] [address] Haresh Mark MD 200 [facility] [place] [address] 04/29/2024 2:15 PM EST Office Visit Urology, [facility] 132 [facility] [place] [address] Mendel Macedo MD [address] [place] [address] 06/04/2024 3:40 PM EST Telemedicine Sleep Disorders Ctr [facility] 132 [facility] [place] [phone] Charmaine Mckeon, DO [address] [place] [address] 10/14/2024 2:00 PM EDT Nurse Only Ancillary [place] [address] [place] [address] [place], Nurse Annual Wellness [place] [address] [place] [address] Health Maintenance Due Date Last Done Comments [...] and were consensually agreed upon. Care Teams Slunk Skinner Relationship Specialty Start Date End Date Jose M Seth MD 200 [place], [place] [phone] PCP - General Internal Medicine 11/21/11 documented as of this encounter
--- OUTSIDE RECORDS SUMMARY | 2024-02-28 21:44 | External Medical Summary | Summary of Care ---
Author Name Unknown Organization [facility] Address [address] [place] [address] Phone [phone] Care Team Providers Care Airplane Gastank Liner Assembler Name Role Phone Jose M Seth MD Primary Care Provider + Reason for Visit * Reason Onset Date Comments Advice 12/22/2023 Encounter Details Date Type Department Care Team (Late st Contact Info) Description 12/22/2023 Telephone Sleep Disorders Ctr Snian [place] [address] [place] [address] Charmaine Mckeon DO [address] [facility] [place] [address] Advice Allergies Active Allergy Reactions Criticality Noted [...] needed. 100 Tab 04/15/2020 Active Saline Nasal [place] 0.65 % Nasal Solution ([place] Nasal [place]) Two sprays in each nostril as needed [...] Active Commode BedsideIndications:C hronic diastolic heart failure (HCC),half-way current use of diuretic Bedside commode. Use [...] encounter Miscellaneous Notes * Telephone Encounter - Charmaine Mckeon DO - 12/22/2023 9:04 AM EDT Please let pt know that her mask leak is continuing, so I have asked [facility] to offer her a mask refit when she is next eligible. At times a chin strap can helpful too, so I will ask that they offer her one. PAP Compliance: Report date: 11/21/23 to 12/20/23 % total days used: 60% % days used > 4 hours: 23% Average hours a day: 4 hrs 23 mins Large leak: 64.5 AHI: 12.3/hr 95% pressure: 11.3 cmH20 DME: [facility] [id number] documented in this encounter Plan of Treatment Upcoming Encounters Date Type Department Care Team (Late st Contact Info) Description 12/25/2023 1:30 PM EDT Office Visit Psychiatry, [facility] [address] [place] [address] Paty Haynes CRNP [address] [place] [address] 01/25/2024 11:00 AM EDT Telemedicine Genetics [facility], [address] [address] Tonya Jovel, MS 132 [facility] [address] 01/31/2024 1:00 PM EDT Office Visit Nephrology, [facility] Massey [address] [place] [address] Haresh Mark MD [address] [place] [address] 04/29/2024 2:15 PM EST [facility] [place] [address] [place] [address] Mendel Macedo MD [address] [place] [address] 06/04/2024 3:40 PM EST Telemedicine Sleep Disorders Ctr [facility] [address] [place] [phone] Charmaine Mckeon, [address] [place] [address] 10/14/2024 2:00 PM EDT Nurse Only Ancillary [facility] [address] [place] [address] [place], Nurse Annual Wellness [place] [address] [place] [address] Health Maintenance Due Date Last Done Comments [...] as of this encounter Visit Diagnoses Diagnosis JOO (obstructive sleep apnea)- Primary Obstructive sleep apnea (adult) (pediatric) documented in this encounter Advance Directives * Full Code (Latest Code Status on File) Date Activated Date Inactivated Comments 09/24/2012 8:15 PM 10/02/2012 7:35 PM This order re flects the patients wishes and were consensually agreed upon. Care Teams Airplane Gastank Liner Assembler Relationship Specialty Start Date End Date Jose M Seth MD [address] [place] [address] PCP - General Internal Medicine 11/21/11 documented as of this encounter
--- OUTSIDE RECORDS SUMMARY | 2024-02-28 21:44 | External Medical Summary | Summary of Care ---
Author Name Unknown Organization [facility] Address [address] [place] [address] Phone [phone] Care Team Providers Care Zinc Skimmer Name Role Phone Jose M Seth MD Primary Care Provider + Reason for Visit * Reason Comments Medication Management Follow Up * - Authorized Specialty Diagnoses / Procedures Referred By Nelia noble Referred To Contact Referral ID Status Reason Start Date Expiration Date V isits Requested Visits Authorized [id number] Authorized 11/27/2023 11/25/2024 [id number] Encounter Details Date Type Department Care Team (Late st Contact Info) Description 12/25/2023 1:30 PM EDT Telemedicine Psychiatry, [facility] [address] [place] [address] Paty Haynes CRNP [address] [place] [address] 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 100 Tab 04/15/2020 Active Saline Nasal [place] 0.65 % Nasal Solution ([place] Nasal Crandon) Two sprays in each nostril as needed [...] Active Commode BedsideIndications:C hronic diastolic heart failure (HCC),detention current use of diuretic Bedside commode. Use [...] as of this encounter (statuses as of 12/26/2023) Active Problems Problem Noted Date Diagnosed Date [...] as of this encounter (statuses as of 12/26/2023) Resolved Problems Problem Noted Date Diagnosed Date [...] PCP: Jose M Seth MD Pharmacy: [facility] 08/09/2013 12/16/2015 Dementia 07/19/2013 [...] as of this encounter (statuses as of 12/26/2023) Immunizations Name Administration Dates Next Due COVID-19 mRNA, LNP-s, No Pre serve, 2-Dose Series (wizboo) 02/18/2021,08/10/2020,07/06/2020 COVID-19, MRNA-LNP, 23-24, P F, 30 MCG/0.3 mL, 12 YRS AND ABOVE, IM ([email or web address]) 04/11/2023 Covid-19, Mrna, Lnp-s, Pf, B ivalent, 30 Mcg, IM, 12 yrs and above (wizboo) 03/22/2022 Pneumococcal Conjugate Vacc, 13 Valent (Prevnar) [...] of this encounter Progress Notes * Paty Haynes, MAINFRAME SYSTEMS ADMINISTRATOR - 12/25/2023 1:50 PM EDT OUTPATIENT PSYCHIATRY DIVISION OF PSYCHIATRY [facility] Office [address] [place] [address] MEDICATION MANAGEMENT & PSYCHOTHERAPY RETURN VISIT NOTE Name: Kathy Mccoy : 1945 Patient location: HOME. I was in a hospital or clinic location. After connecting through [employer],patient was verified with two unique identifiers. 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 Methods to assure confidentiality were taken. Patient acknowledged consent and understanding of pr ivacy and security of the Telemedicine visit. The patient agreed to participate. SUBJECTIVE: Kathy Mccoy is a 78 year [...] feels restless Psychosis: none CURRENT PSYCHIATRIC PROVIDERS/SERVICES: [facility] case management for waiver program MEDICATION [...] history of severe mood swings in her s and one inpatient hospitalization in 1992, after [...] appointments: Wt Readings from Last 3 Encounters: 12/15/23 80.8 kg (178 lb 1.6 oz) 12/04/23 84.3 kg (185 lb 12.8 oz) 10/09/23 84.9 kg (187 lb 1.6 oz) LABORATORY RESULTS: Recent Results (from the past 1344 hour(s)) URINALYSIS, POINT OF CARE (ENTER/EDIT) Collection Time: 12/04/23 12:00 AM Result Value Ref Range Color, Urine [place] Yellow or Light Yellow Clarity, Urine Clear Clear Glucose, Urine Negative Negative mg/dL Bilirubin, Urine Small Negative Ketone, Urine Trace Negative mg/dL Specific [place], Urine 1.025 1.003 - 1.030 Blood, Urine Trace-intact Negative pH, Urine 5.5 5.0 - 7.5 units Protein, Urine 30 Negative mg/dL Urobilinogen, Urine 1.0 0.2 - 1.0 mg/dL Nitrite, Urine Negative Negative Esterase, Urine Trace Negative COMPREHENSIVE METABOLIC PANEL Collection Time: 12/04/23 10:01 AM Result Value Ref Range BUN 18 6 - 20 mg/dL Creatinine 0.9 0.5 - 1.0 mg/dL Estimated Glomerular Filtration Rate 69 >=60 mL/min Sodium 135 135 - 146 mmol/L Potassium 4.6 3.5 - 5.1 mmol/L Chloride 97 (L) 98 - 107 mmol/L CO2 29 22 - 32 mmol/L Anion Gap 9 7 - 15 mmol/L Glucose 98 70 - 120 mg/dL Albumin 3.8 3.8 - 5.0 g/dL AST 15 10 - 35 U/L Alkaline Phosphatase 41 35 - 130 U/L Bilirubin, Total 0.3 <=1.2 mg/dL Calcium 9.3 8.4 - 10.2 mg/dL Protein 6.7 6.0 - 8.3 g/dL ALT 6 (L) 10 - 35 U/L VITAMIN B12 Collection Time: 12/04/23 10:01 AM Result Value Ref Range Vitamin B12 379 232 - 1,245 pg/mL FOLIC ACID Collection Time: 12/04/23 10:01 AM Result Value Ref Range Folic Acid 10.3 >4.5 ng/mL SERUM PROTEIN ELECTROPHORESIS REFLEX PROFILE Collection Time: 12/04/23 10:01 AM Result Value Ref Range Normal/Abnormal Abnormal (A) Normal Protein 6.4 6.0 - 8.3 g/dL Albumin 2.98 (L) 3.30 - 4.40 g/dL Alpha-1 Globulin 0.21 0.10 - 0.30 g/dL Alpha-2 Globulin 0.82 0.60 - 1.00 g/dL Beta-Globulin 0.74 (L) 0.80 - 1.30 g/dL Gamma-Globulin 1.44 0.70 - 1.70 g/dL M Shan 1.06 g/dL Electrophoresis Interpretation Abnormal. 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 SERUM FREE LIGHT CHAINS Collection Time: 12/04/23 10:01 AM Result Value Ref Range [place] Free Light Chains, Serum 23.78 (H) 3.30 - 19.40 mg/L Lambda Free Light Chains, Serum 8.95 5.71 - 26.30 mg/L [place] Lambda Free Light Chains Ratio 2.66 (H) 0.26 - 1.65 IMMUNOGLOBULIN QUANTITATIVE Collection Time: 12/04/23 10:01 AM Result Value Ref Range IgG 1,635 (H) 700 - 1,600 mg/dL IgA 64 (L) 70 - 400 mg/dL IgM 23 (L) 40 - 230 mg/dL VALPROIC ACID LEVEL Collection Time: 12/04/23 10:01 AM Result Value Ref Range Valproic Acid Level 84 50 - 100 ug/mL HEMOGLOBIN A1C Collection Time: 12/04/23 10:01 AM Result Value Ref Range Hemoglobin A1C 5.3 4.0 - 5.6 % Estimated Average Glucose 105 <126 mg/dL LIPID PANEL WITH DIRECT LDL IF TG IS HIGH Collection Time: 12/04/23 10:01 AM Result Value Ref Range Triglycerides 62 <=174 mg/dL Cholesterol 135 <200 mg/dL HDL Cholesterol 54 >49 mg/dL Non-HDL Cholesterol 81 <=159 mg/dL LDL Cholesterol 69 <=129 mg/dL CBC Collection Time: 12/04/23 10:01 AM Result Value Ref Range WBC 4.90 4.00 - 10.80 K/uL RBC 2.93 3.85 - 5.15 M/uL HGB 8.9 (L) 12.0 - 15.3 g/dL HCT 27.5 (L) 36.0 - 45.2 % MCV 93.9 81.5 - 97.5 fL MCH 30.4 27.0 - 34.0 pg MCHC 32.4 32.0 - 36.0 g/dL RDW 14.8 11.5 - 15.5 % PLT 213 140 - 400 K/uL MPV 9.4 6.6 - 11.1 fL DIFFERENTIAL, AUTOMATED Collection Time: 12/04/23 10:01 AM Result Value Ref Range WBC 4.90 4.00 - 10.80 K/uL Neutrophils % 69.2 40.0 - 75.0 % Lymphocytes % 12.9 (L) 18.0 - 42.0 % Monocytes % 15.7 (H) 1.0 - 11.0 % Eosinophils % 2.0 0.0 - 6.0 % Basophils % 0.2 0.0 - 2.0 % Absolute Neutrophils 3.39 1.80 - 7.70 K/uL Absolute Lymphocytes 0.63 (L) 1.00 - 4.80 K/ul Absolute Monocytes 0.77 0.00 - 1.10 K/uL Absolute Eosinophils 0.10 0.00 - 0.70 K/uL Absolute Basophils 0.01 0.00 - 0.20 K/uL FERRITIN Collection Time: 12/04/23 10:01 AM Result Value Ref Range Ferritin 280 (H) 13 - 150 ng/mL IRON SCREEN, INCLUDING TIBC Collection Time: 12/04/23 10:01 AM Result Value Ref Range Iron 41 33 - 151 ug/dL Iron Binding Capacity 257 250 - 425 ug/dL Transferrin Saturation Percent 16 15 - 55 % CULTURE, URINE, QUANTITATIVE Collection Time: 12/04/23 4:18 PM Specimen: Urine, Clean Catch Result Value Ref Range Culture Growth No significant growth COMPREHENSIVE METABOLIC PANEL Collection Time: 12/15/23 3:36 PM Result Value Ref Range BUN 59 (H) 6 - 20 mg/dL Creatinine 1.5 (H) 0.5 - 1.0 mg/dL Estimated Glomerular Filtration Rate 36 (L) >=60 mL/min Sodium 128 (L) 135 - 146 mmol/L Potassium 4.7 3.5 - 5.1 mmol/L Chloride 84 (L) 98 - 107 mmol/L CO2 33 (H) 22 - 32 mmol/L Anion Gap 11 7 - 15 mmol/L Glucose 96 70 - 120 mg/dL Albumin 4.1 3.8 - 5.0 g/dL AST 17 10 - 35 U/L Alkaline Phosphatase 44 35 - 130 U/L Bilirubin, Total 0.4 <=1.2 mg/dL Calcium 9.8 8.4 - 10.2 mg/dL Protein 7.0 6.0 - 8.3 g/dL ALT 8 (L) 10 - 35 U/L LIPID PANEL WITH DIRECT LDL IF TG IS HIGH Collection Time: 12/15/23 3:36 PM Result Value Ref Range Triglycerides 69 <=174 mg/dL Cholesterol 144 <200 mg/dL HDL Cholesterol 57 >49 mg/dL Non-HDL Cholesterol 87 <=159 mg/dL LDL Cholesterol 73 <=129 mg/dL HEMOGLOBIN A1C Collection Time: 12/15/23 3:36 PM Result Value Ref Range Hemoglobin A1C 5.4 4.0 - 5.6 % Estimated Average Glucose 108 <126 mg/dL VITAMIN B12 Collection Time: 12/15/23 3:36 PM Result Value Ref Range Vitamin B12 515 232 - 1,245 pg/mL MAGNESIUM Collection Time: 12/15/23 3:36 PM Result Value Ref Range Magnesium 1.8 1.5 - 2.6 mg/dL 25-HYDROXY VITAMIN D Collection Time: 12/15/23 3:36 PM Result Value Ref Range 25-Hydroxy Vitamin D 46 >19 ng/mL SERUM PROTEIN ELECTROPHORESIS REFLEX PROFILE Collection Time: 12/15/23 3:36 PM Result Value Ref Range Normal/Abnormal Abnormal (A) Normal Protein 7.0 6.0 - 8.3 g/dL Albumin 3.49 3.30 - 4.40 g/dL Alpha-1 Globulin 0.20 0.10 - 0.30 g/dL Alpha-2 Globulin 0.81 0.60 - 1.00 g/dL Beta-Globulin 0.79 (L) 0.80 - 1.30 g/dL Gamma-Globulin 1.72 (H) 0.70 - 1.70 g/dL M Shan 1.21 g/dL Electrophoresis Interpretation Abnormal. 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 URINE PROTEIN ELECTROPHORESIS REFLEX PROFILE, RANDOM URINE Collection Time: 12/15/23 3:36 PM Result Value Ref Range Normal/Abnormal Abnormal (A) Normal Protein, Random Urine 17 mg/dL Albumin, Urine 65.7 % Globulins, Urine 34.3 % M Shan, Urine 8.3 % Electrophoresis Intepretation Abnormal. Paraprotein present. See urine immunofixation results. ALBUMIN / CREATININE RATIO, URINE Collection Time: 12/15/23 3:36 PM Result Value Ref Range Albumin, Random Urine 4.90 mg/dL Creatinine, Random Urine 103 mg/dL Albumin / Creatinine Ratio, Urine 48 (H) <30 mg/g Creat OSMOLALITY, URINE Collection Time: 12/15/23 3:36 PM Result Value Ref Range Osmolality, Urine 319 50 - 1,200 mOsm/kg OSMOLALITY, SERUM Collection Time: 12/15/23 3:36 PM Result Value Ref Range Osmolality, Serum 290 278 - 305 mOsm/kg ELECTROLYTES, RANDOM URINE Collection Time: 12/15/23 3:36 PM Result Value Ref Range Sodium, Random Urine <20 mmol/L Potassium, Random Urine 34.0 mmol/L Chloride, Random Urine 28 mmol/L [place]BDA LIGHT CHAINS, FREE WITH RATIO, RANDOM URINE Collection Time: 12/15/23 3:36 PM Result Value Ref Range [place] Light Chain, Free, U 1.06 <=32.90 mg/L Lambda Light Chain, Free, U <0.74 <=3.79 mg/L [place]/Lambda, Free Ratio SEE BELOW URINALYSIS WITH MICROSCOPIC EXAM Collection Time: 12/15/23 3:36 PM Result Value Ref Range Color, Urine Light Yellow Colorless, Light Yellow, Yellow, Dark Yellow Clarity, Urine Clear Clear Glucose, Urine Negative Negative mg/dL Bilirubin, Urine Negative Negative Ketone, Urine Negative Negative mg/dL Specific [place], Urine 1.013 1.003 - 1.030 Blood, Urine Negative Negative pH, Urine 5.5 5.0 - 7.5 Units Protein, Urine Trace (A) Negative mg/dL Urobilinogen, Urine Normal Normal mg/dL Nitrite, Urine Negative Negative Esterase, Urine Negative Negative RBC, Urine 0-2 0 - 2 /HPF WBC, Urine 0-2 0 - 2 /HPF Bacteria, Urine 0-25 0 - 25 /HPF Hyaline, Cast, Urine 1-4 (A) None /LPF CBC Collection Time: 12/15/23 3:36 PM Result Value Ref Range WBC 3.84 (L) 4.00 - 10.80 K/uL RBC 3.20 3.85 - 5.15 M/uL HGB 9.7 (L) 12.0 - 15.3 g/dL HCT 29.1 (L) 36.0 - 45.2 % MCV 90.9 81.5 - 97.5 fL MCH 30.3 27.0 - 34.0 pg MCHC 33.3 32.0 - 36.0 g/dL RDW 14.6 11.5 - 15.5 % PLT 257 140 - 400 K/uL MPV 10.8 6.6 - 11.1 fL nRBCs 0 <=0 /100 WBCs DIFFERENTIAL, AUTOMATED Collection Time: 12/15/23 3:36 PM Result Value Ref Range WBC 3.84 (L) 4.00 - 10.80 K/uL Neutrophils % 50.2 40.0 - 75.0 % Lymphocytes % 29.7 18.0 - 42.0 % Monocytes % 17.7 (H) 1.0 - 11.0 % Eosinophils % 1.6 0.0 - 6.0 % Basophils % 0.3 0.0 - 2.0 % Immature Granulocytes % 0.5 0.0 - 2.0 % Absolute Neutrophils 1.93 1.80 - 7.70 K/uL Absolute Lymphocytes 1.14 1.00 - 4.80 K/ul Absolute Monocytes 0.68 0.00 - 1.10 K/uL Absolute Eosinophils 0.06 0.00 - 0.70 K/uL Absolute Basophils 0.01 0.00 - 0.20 K/uL Absolute Immature Granulocytes 0.02 0.00 - 0.20 K/uL URINE IMMUNOFIXATION, BENCE LARKIN PROTEIN, RANDOM URINE Collection Time: 12/15/23 3:36 PM Result Value Ref Range Normal/Abnormal Abnormal (A) Normal Protein, Random Urine 17 mg/dL Immunofixation Interpretation Abnormal. Monoclonal intact immunoglobulins present. A monoclonal IgG kappa gammopathy is present. REVIEW OF SYSTEMS: Unremarkable MENTAL STATUS EVALUATION: General Appearance: clean and appropriately dressed Attitude/Behavior: cooperative, open and friendly, engaged Motor Behavior/Muscle Strength & Tone/Gait & Station: no abnormal movements Speech: pressured rate Mood: somewhat irritable Affect: congruent Thought Process: tangential Thought Content/Perceptions: denies suicidal [...] Insight: fair Judgement: fair Impulse Control: fair [place] Suicide Severity Rating Scale Results 12/25/2023 13:53 [place] SUICIDE SEVERITY RATING SCALE (C-SSRS) Have [...] on self improvement - currently working of [facility]'s hierarchy of needs. Pt enjoys these activities. [...] Plan is to continue medications as prescribed. 12/25/23: Pt's appt was to be in person today, but it was changed to video. Pt was in conflict with daughter due to disagreement about what time the appt was for. Pt's daughter and sister were presentfor appt. Pt was medically hospitalized 2 times since last appt. Pt provided extensive explanation of hospitalization and needed to be guided back to relevant topic for today's appt. Pt states she is feeling "pretty good" today. Pt's daughter voiced that her mother has been irritable and disrespectful - specifically in interactions with daughter. Pt described her daughter will be working at a different job soon and a new aide is needed. Discussed having anxiety about needing to find a new aide. Pt reports she sleeps wonderfully - going to sleep at 1000 PM, has alarm set for 3 AM for toileting, and then returns to sleep until 8 AM. Pt admits to racing thoughts, pressured speech and tangential thought process after these symptoms were explained to her. She admits to becoming angry when she feels she is not being heard. Valproic acid level not obtained during IP treatment. Requested valproic acid level be obtained anddepakote will be adjusted accordingly if necessary. Discussed provider leaving practice and recommendation for transfer to new provider within [facility] system. Pt in agreement. Diagnosis: Mood disorder in partial remission Generalized [...] Drug Monitoring Program in compliance with the [facility] regulations before prescribing a controlled substance. [...] Appointment: Kathy Mccoy is to return in 6 weeks. Sooner PRN. This treatment plan was [...] pose increased health risks. Paty Haynes, MSN, MAINFRAME SYSTEMS ADMINISTRATOR, PMHNP-BC [facility] Psychiatry [facility] Current Outpatient Medications Medication Sig Dispense [...] hours as needed. 100 Tab0 Saline Nasal [place] 0.65 % Nasal Solution ([place] Nasal [place]) Two sprays in each nostril as needed [...] COVID-19 mRNA Vaccine 12 years and above wizboo 30 MCG/0.3 ML IM SUSP Inject into [...] Monday only. As directed. 30 g 3 No current facility-administered medications for this visit. documented in this encounter Plan of Treatment Upcoming Encounters Date Type Department Care Team (Late st Contact Info) Description 12/27/2023 11:20 AM EDT Office Visit General Internal Medicine State Ailyn Cevallos [address] [place] [place] [address] Patience Berrios PA-C [address] [place] [address] [address] 01/25/2024 11:00 AM EDT Telemedicine Genetics [facility], [facility] [address] [place] [address] Tonya Jovel, MS [address] [facility] [address] [place] [address] 01/31/2024 1:00 PM EDT Office Visit Nephrology, [facility] [address] [place] [address] Haresh Mark MD [address] [place] [address] [address] 04/29/2024 2:15 PM EST Office Visit Urology, [facility] [address] [facility] [address] [place] [address] Mendel Macedo MD [address] [place] [address] 06/04/2024 3:40 PM EST Telemedicine Sleep Disorders [facility] [address] [facility] [address] [place] [id number] Charmaine Mckeon, DO [address] [place] [address] 10/14/2024 2:00 PM EDT Nurse Only Ancillary Scenery [facility] [address] [place] [address] [place], Nurse [facility] [address] [place] [address] Scheduled Orders Name Type Priority Associated Diagnoses Orde r Schedule VALPROIC ACID LEVEL Lab Routine 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) Expected: 12/26/2023 (Approximate), Expires: 12/24/2024 Health Maintenance Due Date Last Done Comments COVID-19 Vaccine ( season) 2023 04/11/2023, 03/22/2022, 02/18/2021, Additional history exists Influenza Vaccine (FLU shot) (#1) 2024 02/07/2023, 02/08/2022, 02/08/2021, Additional history exists DXA Scan 09/20/2024 09/20/2021, 08/28, 10/23/2013, Additional history exists HbA1c 12/14/2024 12/15/2023, 0712/2023, 07/13/2022, Additional history exists Depression Monitoring 12/19/2024 [...] (HCC)- Primary Other specified episodic mood disorder documented in this encounter Advance Directives * Full Code (Latest Code Status on File) Date Activated Date Inactivated Comments 09/24/2012 8:15 PM 10/02/2012 7:35 PM This order re flects the patients wishes and were consensually agreed upon. Care Teams Zinc Skimmer Relationship Specialty Start Date End Date Jose M Seth MD [address] [facility] [place] [address] PCP - General Internal Medicine 11/21/11 documented as of this encounter
--- NOTE | 2024-02-28 22:42 | Communication Note ---
Date of Service: February 28, 2024 Patient and daughter requesting for change of DNR CODE STATUS expressed on admission to full code.
[2024-02-29] MEDS: PANTOprazole 40 MG TAB PO SCH (05:38)
[2024-02-29 07:49] LABS: BUN Creatinine Ratio 38.6 (10-20); Calcium 8.4 mg/dl (8.6-10.3); Creatinine Clr Calc Pharmacy 78.3 ml/min; Magnesium 1.7 mg/dl (1.7-2.4); Potassium 3.9 mmol/L (3.5-5.1)
[2024-02-29 08:51] LABS: Hematocrit (blood only) 26.2 % (37.0-47.0); Hemoglobin 8.5 g/dl (12.0-16.0); Mean Corpuscular Hemoglobin 30.2 pg (25.0-34.0); Mean Corpuscular Hgb Conc 32.4 g/dL (32.0-36.0); Mean Corpuscular Volume 93.2 fL (80.0-100.0); Mean Platelet Volume 11.1 fL (9.4-12.4); Platelet Count 113 K/uL (130-400); RDW Coefficient of Variation 14.3 % (11.5-14.5); RDW Standard Deviation 48.9 fL (36.4-46.3); Red Blood Count 2.81 M/uL (4.20-5.40); White Blood Count 1.68 K/ul (4.8-10.8)
[2024-02-29 08:52] LABS: Basophils # (auto) 0.01 K/uL (0.00-0.20); Basophils % (auto) 0.6 %; Eosinophils # (auto) 0.02 K/uL (0.00-0.50); Eosinophils % (auto) 1.2 %; Immature Granulocytes # (auto) 0.01 K/uL (0.01-0.20); Immature Granulocytes % (auto) 0.6 %; Lymphocytes # (auto) 0.99 K/uL (1.20-3.40); Lymphocytes % (auto) 58.9 %; Monocytes # (auto) 0.31 K/uL (0.11-0.59); Monocytes % (auto) 18.5 %; Neutrophils # (auto) 0.34 K/uL (1.40-6.50); Neutrophils % (auto) 20.2 %
[2024-02-29] MEDS: OXYBUTYNIN CHLORIDE XL 5 MG TABCR PO SCH (09:16)
[2024-02-29] MEDS: FLUTICASONE PROPIONATE NA SPR 16 GM BTL NAE SCH (09:17)
[2024-02-29] MEDS: ATORVASTATIN 20 MG TAB PO SCH (09:18)
[2024-02-29] MEDS: UREA (UREA-NA) 15 GM PACK PO SCH (09:18)
[2024-02-29] MEDS: CHOLECALCIFEROL 25 MCG (1000 UNITS) TAB PO SCH (09:18)
--- NOTE | 2024-02-29 11:39 | Hospitalist Progress Note ---
Date of Service February 29, 2024 Assessment & Plan (1) COVID-19 virus infection: (2) MGUS (monoclonal gammopathy of unknown significance): (3) Ambulatory dysfunction: (4) Pancytopenia: (5) History of endometrial cancer: (6) Malignant neoplasm of lower-inner quadrant of left breast in female, estrogen receptor negative: (7) Bipolar disorder: Plan Patient presents with increasing weakness and ambulatory dysfunction due to COVID-19 viral infection. Patient is a high risk for severe COVID-19 disease with her history of both breast and endometrial cancer, MGUS. Patient meets criteria for COVID directed therapies. Continue IV remdesivir for minimum of 3 days, currently patient not requiring oxygen supplementation does not need Decadron. Continue to monitor O2 sat Therapies Patient has chronic anemia and leukopenia. Suspect thrombocytopenia induced from acute viral infection. Patient is on chronic Depakote. This can cause pancytopenia, will continue to monitor blood counts intermittently. Will not discontinue Depakote at this time due to concerns of destabilizing her mental health issues. However, may need to discuss other treatments for bipolar disorder with her outpatient providers if she remains pancytopenic. Communication with nursing staff, patient apparently has up to 30 hours of assistance at home. Patient's goal is to get home, may need to increase assistance for short-term if able Remdesivir monitoring labs per protocol Attempted to contact daughter, primary contact, no answer Admission and Anticipated Discharge Date Admission Date: February 28, 2024 Subjective Patient sitting up in chair. She denies shortness of breath. States that she is weak, aches all over, fatigued. No cough, no chest pain Physical Exam Physical Exam: Constitutional: Alert, sitting in chair, no acute distress, fatigued in appearance HEENT: Mucous membranes slightly dry Lungs: Clear to auscultation, decreased, no wheezes rales or rhonchi CV: S1-S2, regular Abdomen: Soft, nontender, nondistended Extremities: No significant edema Neuro: No focal deficits, generalized weakness Psych: Cooperative, normal mood Results & Data Results & Data Vital Signs (Past 12 Hours) Vital Signs Temp Pulse Pulse Resp BP Pulse Ox O2 Del Method 02/29/24 09:06 Room Air 02/29/24 08:04 36.8 C 63 16 119/66 95 Room Air 02/29/24 07:03 57 L 02/29/24 00:45 Room Air 02/29/24 00:21 64 17 95 Room Air 02/29/24 00:20 36.9 C 59 L 17 130/70 96 Room Air 02/29/24 00:15 75 02/28/24 23:45 59 L 20 94 Room Air 02/28/24 23:36 68 20 94 Room Air Diagnostic Findings Reviewed imaging, laboratory and diagnostic studies. Pertinent findings as below. WBCs 1.6, hemoglobin 8.5, platelets 113 ANC 0.34 Sodium 137
[2024-02-29] MEDS: REMDESIVIR 100 MG in SODIUM CHLORIDE 0.9% 230 ML IV SCH (22:09)
[2024-03-01 06:21] LABS: Hematocrit (blood only) 26.2 % (37.0-47.0); Hemoglobin 8.6 g/dl (12.0-16.0); Mean Corpuscular Hemoglobin 30.3 pg (25.0-34.0); Mean Corpuscular Hgb Conc 32.8 g/dL (32.0-36.0); Mean Corpuscular Volume 92.3 fL (80.0-100.0); Mean Platelet Volume 11.6 fL (9.4-12.4); Platelet Count 111 K/uL (130-400); RDW Coefficient of Variation 14.1 % (11.5-14.5); RDW Standard Deviation 47.8 fL (36.4-46.3); Red Blood Count 2.84 M/uL (4.20-5.40); White Blood Count 2.13 K/ul (4.8-10.8)
[2024-03-01 06:28] LABS: Alanine Aminotransferase 6 U/L (7-52); Aspartate Aminotransferase 14 U/L (13-39)
--- NOTE | 2024-03-01 15:26 | Hospitalist Progress Note ---
Date of Service March 01, 2024 Assessment & Plan (1) COVID-19 virus infection: Plan: Patient presents with increasing weakness and ambulatory dysfunction due to COVID-19 viral infection. Patient is a high risk for severe COVID-19 disease with her history of both breast and endometrial cancer, MGUS. Patient meets criteria for COVID directed therapies. Continue IV remdesivir for minimum of 3 days, currently patient not requiring oxygen supplementation does not need Decadron. Continue to monitor O2 sat Clinically much better without any significant respiratory symptoms Saturating normally on room air Awaiting PT and OT evaluation prior to discharge (2) MGUS (monoclonal gammopathy of unknown significance): (3) Ambulatory dysfunction: Plan: Will get PT and OT evaluation prior to discharge (4) Pancytopenia: Plan: Patient has chronic anemia and leukopenia. Suspect thrombocytopenia induced from acute viral infection. CBC is not any worse (5) History of endometrial cancer: (6) Malignant neoplasm of lower-inner quadrant of left breast in female, estrogen receptor negative: (7) Bipolar disorder: Plan: No acute anxiety and/or distress Will continue current medications Admission and Anticipated Discharge Date Admission Date: February 28, 2024 Subjective 03/01/2024 The patient was seen and examined in medical telemetry unit in the COVID room She has been feeling much better but remains weak and lethargic Has not had any formal physical therapy yet Review of Systems Review of Systems: All systems reviewed and are unremarkable except as noted below Physical Exam Physical Exam: Lying in bed without any significant distress Constitutional: well developed, well nourished, + ill appearing and + obese Eyes: PERRL, conjunctivae normal, anicteric sclerae ENMT: external ear and nose normal, oropharynx normal Neck: trachea midline, no thyromegaly Respiratory: no respiratory distress Auscultation: + diminished lung sounds and + crackles (Minimal bibasilar crackles) Cardiovascular: Rate/Rhythm: regular rate and regular rhythm; not tachycardic Heart Sounds: normal S1, normal S2 and + murmur Extremities: no edema Gastrointestinal (Abdomen): Inspection/Auscultation: normal bowel sounds; abdomen not distended Percussion/Palpation: abdomen soft; abdomen nontender Musculoskeletal: No acute arthritis involving any of the joint Neurologic: normal touch/pain/proprioception and moves all extremities; no focal motor deficits Lymphatic: no cervical or axillary lymphadenopathy Results & Data Results & Data Vital Signs (Past 12 Hours) Vital Signs Temp Pulse Resp BP Pulse Ox O2 Del Method 03/01/24 09:56 Room Air 03/01/24 07:33 36.8 C 64 18 133/62 97 Room Air Laboratory Results Short CBC 03/01/24 Range/Units 05:32 WBC 2.13 L (4.8-10.8) K/ul Hgb 8.6 L (12.0-16.0) g/dl Hct 26.2 L (37.0-47.0) % Plt Count 111 L (130-400) K/uL Liver Function 03/01/24 Range/Units 05:32 AST 14 (13-39) U/L ALT 6 L (7-52) U/L Medications Administered Current Inpatient Medications Acetaminophen (Acetaminophen 325 Mg Tab) 650 mg PO Q4H PRN PRN Reason: Pain or Fever Stop: 03/29/24 17:14 Albuterol (Albuterol 0.083% Nebu Soln 3 Ml Vial) 2.5 mg NEB Q6H PRN; Protocol PRN Reason: Shortness Of Breath Or Wheezing Stop: 03/29/24 17:14 Atorvastatin Calcium (Atorvastatin 20 Mg Tab) 20 mg PO DAILY HARRISON Stop: 03/30/24 08:59 Last Admin: 03/01/24 09:44 Dose: 20 mg Diclofenac Sodium (Diclofenac Sod 1% Gel 100 Gm Tube) 4 gm EXT QID PRN; Protocol PRN Reason: Pain Stop: 03/29/24 17:14 Divalproex Sodium (Divalproex Extended Release 250 Mg Tabcr) 750 mg PO HS HARRISON Stop: 03/29/24 20:59 Last Admin: 02/29/24 22:08 Dose: 750 mg Fexofenadine HCl (Fexofenadine Hcl 180 Mg Tab) 180 mg PO DAILY PRN PRN Reason: allergies Stop: 03/29/24 17:14 Fluoxetine HCl (Fluoxetine Hcl 20 Mg Cap) 20 mg PO HS HARRISON Stop: 03/29/24 20:59 Last Admin: 02/29/24 22:08 Dose: 20 mg Fluticasone Propionate (Fluticasone Propionate Na Spr 16 Gm Btl) 2 sprays CAROL QAM HARRISON Stop: 03/30/24 08:59 Last Admin: 03/01/24 09:45 Dose: 2 sprays Gabapentin (Gabapentin 300 Mg Cap) 300 mg PO TID HARRISON Stop: 03/29/24 20:59 Last Admin: 03/01/24 13:54 Dose: 300 mg Remdesivir 100 mg/ Sodium (Chloride) 250 mls @ 250 mls/hr IV Q24H HARRISON Stop: 03/03/24 20:59 Last Infusion: 02/29/24 23:09 Dose: Infused Lorazepam (Lorazepam 0.5 Mg Tab) 0.5 mg PO DAILY PRN PRN Reason: Anxiety Stop: 03/29/24 17:14 Magnesium Chloride (Magnesium Chloride W/Calcium 64mg Delayed Rel Tab) 64 mg PO BID HARRISON Stop: 03/29/24 20:59 Last Admin: 03/01/24 09:45 Dose: 64 mg Ondansetron HCl (Ondansetron Inj 2 Mg/Ml 2 Ml Vial) 4 mg IV Q6H PRN PRN Reason: Nausea Stop: 03/29/24 17:14 Oxybutynin Chloride (Oxybutynin Chloride Xl 5 Mg Tabcr) 15 mg PO DAILY HARRISON Stop: 03/30/24 08:59 Last Admin: 03/01/24 09:44 Dose: 15 mg Pantoprazole Sodium (Pantoprazole 40 Mg Tab) 40 mg PO DAILYBB HARRISON Stop: 03/30/24 06:29 Last Admin: 03/01/24 06:14 Dose: 40 mg Polyethylene Glycol (Polyethylene (Miralax) 17 Gm Pack) 17 gm PO DAILY PRN PRN Reason: Constipation Stop: 03/29/24 17:14 Urea (Urea (Urea-Na) 15 Gm Pack) 15 gm PO DAILY HARRISON Stop: 03/30/24 08:59 Last Admin: 03/01/24 09:44 Dose: 15 gm Vitamin D (Cholecalciferol 25 Mcg (1000 Units) Tab) 25 mcg PO QAM HARRISON Stop: 03/30/24 08:59 Last Admin: 03/01/24 09:44 Dose: 25 mcg
[2024-03-02] MEDS: POLYETHYLENE (MIRALAX) 17 GM PACK PO PRN (05:17)
[2024-03-02 06:16] LABS: BUN Creatinine Ratio 40.6 (10-20); Calcium 8.4 mg/dl (8.6-10.3); Creatinine Clr Calc Pharmacy 64.7 ml/min; Magnesium 1.5 mg/dl (1.7-2.4); Phosphorus 2.8 mg/dl (2.5-4.9); Potassium 3.9 mmol/L (3.5-5.1)
[2024-03-02 06:40] LABS: Hematocrit (blood only) 26.1 % (37.0-47.0); Hemoglobin 8.7 g/dl (12.0-16.0); Mean Corpuscular Hemoglobin 30.3 pg (25.0-34.0); Mean Corpuscular Hgb Conc 33.3 g/dL (32.0-36.0); Mean Corpuscular Volume 90.9 fL (80.0-100.0); Mean Platelet Volume 11.9 fL (9.4-12.4); Platelet Count 112 K/uL (130-400); RDW Coefficient of Variation 13.9 % (11.5-14.5); RDW Standard Deviation 46.5 fL (36.4-46.3); Red Blood Count 2.87 M/uL (4.20-5.40); White Blood Count 2.22 K/ul (4.8-10.8)
[2024-03-02 06:49] LABS: Basophils # (auto) 0.01 K/uL (0.00-0.20); Basophils % (auto) 0.5 %; Eosinophils # (auto) 0.06 K/uL (0.00-0.50); Eosinophils % (auto) 2.7 %; Lymphocytes # (auto) 1.13 K/uL (1.20-3.40); Lymphocytes % (auto) 50.9 %; Monocytes # (auto) 0.43 K/uL (0.11-0.59); Monocytes % (auto) 19.4 %; Neutrophils # (auto) 0.59 K/uL (1.40-6.50); Neutrophils % (auto) 26.5 %
--- NOTE | 2024-03-02 12:21 | Hospitalist Progress Note ---
Date of Service March 02, 2024 Assessment & Plan (1) COVID-19 virus infection: Plan: Patient presents with increasing weakness and ambulatory dysfunction due to COVID-19 viral infection. Patient is a high risk for severe COVID-19 disease with her history of both breast and endometrial cancer, MGUS. Patient meets criteria for COVID directed therapies. Continue IV remdesivir for minimum of 3 days, currently patient not requiring oxygen supplementation does not need Decadron. Continue to monitor O2 sat Clinically much better without any significant respiratory symptoms Saturating normally on room air Awaiting PT and OT evaluation prior to discharge Clinically much better without any respiratory symptoms of cough or shortness of breath Has been saturating normally on room air (2) MGUS (monoclonal gammopathy of unknown significance): (3) Ambulatory dysfunction: Plan: Will get PT and OT evaluation prior to discharge has had PT evaluation and recommended to continue home health PT (4) Pancytopenia: Plan: Patient has chronic anemia and leukopenia. Suspect thrombocytopenia induced from acute viral infection. CBC stable and showing some improvement (5) History of endometrial cancer: (6) Malignant neoplasm of lower-inner quadrant of left breast in female, estrogen receptor negative: (7) Bipolar disorder: Plan: No acute anxiety and/or distress Will continue current medications Admission and Anticipated Discharge Date Admission Date: February 28, 2024 Subjective 03/01/2024 The patient was seen and examined in medical telemetry unit in the COVID room She has been feeling much better but remains weak and lethargic Has not had any formal physical therapy yet 03/02/2024 The patient was seen and examined in medical telemetry unit and in the COVID room She has been feeling much better and does not have any respiratory symptoms She has had physical therapy and recommended home with home health She wants to go home Review of Systems Review of Systems: All systems reviewed and are unremarkable except as noted below Physical Exam Physical Exam: Lying in bed without any significant distress Constitutional: well developed, well nourished, + ill appearing and + obese Eyes: PERRL, conjunctivae normal, anicteric sclerae ENMT: external ear and nose normal, oropharynx normal Neck: trachea midline, no thyromegaly Respiratory: no respiratory distress Auscultation: + diminished lung sounds and + crackles (Minimal bibasilar crackles) Cardiovascular: Rate/Rhythm: regular rate and regular rhythm; not tachycardic Heart Sounds: normal S1, normal S2 and + murmur Extremities: no edema Gastrointestinal (Abdomen): Inspection/Auscultation: normal bowel sounds; abdomen not distended Percussion/Palpation: abdomen soft; abdomen nontender Neurologic: normal touch/pain/proprioception and moves all extremities; no focal motor deficits Lymphatic: no cervical or axillary lymphadenopathy Results & Data Results & Data Vital Signs (Past 12 Hours) Vital Signs Temp Pulse Resp BP Pulse Ox O2 Del Method 03/02/24 09:16 36.6 C 61 17 111/59 L 96 Room Air Laboratory Results Short CBC 03/02/24 Range/Units 04:55 WBC 2.22 L (4.8-10.8) K/ul Hgb 8.7 L (12.0-16.0) g/dl Hct 26.1 L (37.0-47.0) % Plt Count 112 L (130-400) K/uL BMP 03/02/24 04:55 Sodium 135 L Potassium 3.9 Chloride 100 Carbon Dioxide 31 BUN 28 H Creatinine 0.69 Glucose 95 Calcium 8.4 L Liver Function 03/02/24 Range/Units 04:55 AST 13 (13-39) U/L ALT 6 L (7-52) U/L Medications Administered Current Inpatient Medications Acetaminophen (Acetaminophen 325 Mg Tab) 650 mg PO Q4H PRN PRN Reason: Pain or Fever Stop: 03/29/24 17:14 Albuterol (Albuterol 0.083% Nebu Soln 3 Ml Vial) 2.5 mg NEB Q6H PRN; Protocol PRN Reason: Shortness Of Breath Or Wheezing Stop: 03/29/24 17:14 Atorvastatin Calcium (Atorvastatin 20 Mg Tab) 20 mg PO DAILY HARRISON Stop: 03/30/24 08:59 Last Admin: 03/02/24 09:21 Dose: 20 mg Diclofenac Sodium (Diclofenac Sod 1% Gel 100 Gm Tube) 4 gm EXT QID PRN; Protocol PRN Reason: Pain Stop: 03/29/24 17:14 Divalproex Sodium (Divalproex Extended Release 250 Mg Tabcr) 750 mg PO HS HARRISON Stop: 03/29/24 20:59 Last Admin: 03/01/24 20:33 Dose: 750 mg Fexofenadine HCl (Fexofenadine Hcl 180 Mg Tab) 180 mg PO DAILY PRN PRN Reason: allergies Stop: 03/29/24 17:14 Fluoxetine HCl (Fluoxetine Hcl 20 Mg Cap) 20 mg PO HS HARRISON Stop: 03/29/24 20:59 Last Admin: 03/01/24 20:33 Dose: 20 mg Fluticasone Propionate (Fluticasone Propionate Na Spr 16 Gm Btl) 2 sprays CAROL QAM HARRISON Stop: 03/30/24 08:59 Last Admin: 03/02/24 09:21 Dose: 2 sprays Gabapentin (Gabapentin 300 Mg Cap) 300 mg PO TID HARRISON Stop: 03/29/24 20:59 Last Admin: 03/02/24 09:20 Dose: 300 mg Remdesivir 100 mg/ Sodium (Chloride) 250 mls @ 250 mls/hr IV Q24H HARRISON Stop: 03/03/24 20:59 Last Infusion: 03/01/24 21:38 Dose: Infused Lorazepam (Lorazepam 0.5 Mg Tab) 0.5 mg PO DAILY PRN PRN Reason: Anxiety Stop: 03/29/24 17:14 Magnesium Chloride (Magnesium Chloride W/Calcium 64mg Delayed Rel Tab) 64 mg PO BID HARRISON Stop: 03/29/24 20:59 Last Admin: 03/02/24 09:21 Dose: 64 mg Ondansetron HCl (Ondansetron Inj 2 Mg/Ml 2 Ml Vial) 4 mg IV Q6H PRN PRN Reason: Nausea Stop: 03/29/24 17:14 Oxybutynin Chloride (Oxybutynin Chloride Xl 5 Mg Tabcr) 15 mg PO DAILY HARRISON Stop: 03/30/24 08:59 Last Admin: 03/02/24 09:20 Dose: 15 mg Pantoprazole Sodium (Pantoprazole 40 Mg Tab) 40 mg PO DAILYBB HARRISON Stop: 03/30/24 06:29 Last Admin: 03/02/24 05:17 Dose: 40 mg Polyethylene Glycol (Polyethylene (Miralax) 17 Gm Pack) 17 gm PO DAILY PRN PRN Reason: Constipation Stop: 03/29/24 17:14 Last Admin: 03/02/24 05:17 Dose: 17 gm Urea (Urea (Urea-Na) 15 Gm Pack) 15 gm PO DAILY HARRISON Stop: 03/30/24 08:59 Last Admin: 03/02/24 09:21 Dose: 15 gm Vitamin D (Cholecalciferol 25 Mcg (1000 Units) Tab) 25 mcg PO QAM HARRISON Stop: 03/30/24 08:59 Last Admin: 03/02/24 09:20 Dose: 25 mcg
[2024-03-02 14:56] VITALS: BP 110/69; PULSE 64; RESP 20; TEMP 98.2; O2SAT 98
[2024-03-02] MEDS: HEPARIN 100 UNIT/ML 5ML FLUSH ONE (16:46)
--- NOTE | 2024-03-03 07:53 | Discharge Summary ---
Date of Service March 03, 2024 Admission HPI Per Admitting Provider Patient is 78 year old female with PMH HFrEF, moderate , HTN, bronchial asthma, pulmonary hypertension, JOO on CPAP, GERD, prediabetes, left breast cancer status post surgery/radiation, endometrial cancer status post surgery/chemotherapy, MGUS, chronic anemia, anxiety/mood disorder, presented to ER with c/o weakness and flu like symptoms. History obtained from patient, family and outpatient records. States 5 days ago started with stuffy nose, sore throat, SCHMITZ, fatigue, decreased appetite. Denies cough, SOB, CP. States today with some nausea, vomited twice this morning. Denies abdominal pain or diarrhea. States feeling dizzy with standing today. Walks with walker at baseline. Has caregiver 20 hours a weeks. States today more weak and wasn't able to get up off toilet so came to ER for evaluation. Seen PCPs office 02/27/2024 was prescribed cefdinir for possible sinus infection however patient states never took it. Denies known ill contacts. Denies h/o COVID-19 in past. Denies fever/chills, diaphoresis, hematemesis, diarrhea, constipation, syncope, vision changes, neck pain, CP, SOB, orthopnea, palpitations, cough, otalgia, abdominal pain, paresthesias, extremity edema, rashes, urinary symptoms. Admission Exam Per Admitting Provider Physical Exam: General: no distress, WDWN Head: normocephalic, atraumatic Eyes: conjunctiva non-injected, anicteric ENT: normal inspection external ears, nose, mucous membranes mildly dry Neck: supple, trachea midline Lungs: clear, no respiratory distress, no wheezing/rhonchi/rales CV: RRR, + murmur, no pretibial edema Abd: normal BS, soft, non-tender Ext: no cyanosis, no calf tenderness Neuro: A&O x 3, no focal deficits noted, normal affect Skin: warm, dry Principal Diagnosis COVID-19 virus infection, weakness, pancytopenia Discharge Exam Lying in bed without any significant distress Constitutional well developed, well nourished, + ill appearing and + obese Eyes PERRL, conjunctivae normal, anicteric sclerae ENMT external ear and nose normal, oropharynx normal Neck trachea midline, no thyromegaly Respiratory no respiratory distress Auscultation: + diminished lung sounds and + crackles (Minimal bibasilar crackles) Cardiovascular Rate/Rhythm: regular rate and regular rhythm; not tachycardic Heart Sounds: normal S1, normal S2 and + murmur Extremities: no edema Gastrointestinal (Abdomen) Inspection/Auscultation: normal bowel sounds; abdomen not distended Percussion/Palpation: abdomen soft; abdomen nontender Neurologic normal touch/pain/proprioception and moves all extremities; no focal motor deficits Lymphatic no cervical or axillary lymphadenopathy Discharge Data Allergies Allergy/AdvReac Type Severity Reaction Status Date / Time adhesive Allergy Intermediate ADHESIVE Verified 02/28/24 14:47 TAPE -- BLISTERS cetirizine Allergy Intermediate SORES IN Verified 02/28/24 14:47 MOUTH, HEAD CONGESTION dicloxacillin Allergy Intermediate MOUTH SORE Verified 02/28/24 14:47 erythromycin base Allergy Intermediate SORES IN Verified 02/28/24 14:47 MOUTH rifampin Allergy Intermediate elevated Verified 02/28/24 14:47 LFT's codeine AdvReac Mild NAUSEA Verified 02/28/24 14:47 doxycycline AdvReac Mild NAUSEA Verified 02/28/24 14:47 morphine AdvReac Mild "MAKES ME Verified 02/28/24 14:47 FEEL LOOPY" tetracycline AdvReac Mild NAUSEA Verified 02/28/24 14:47 NSAIDS (Non-Steroidal AdvReac Due to Verified 02/28/24 14:47 Anti-Inflamma kidney problems tramadol [From Ultram] AdvReac Nausea Verified 02/28/24 14:47 Consultations 02/28/24 14:29 ED Decision to Admit Stat Ordered Studies 02/28/24 11:20 CT head/brain wo con Stat Hospital Course (1) COVID-19 virus infection: Patient presents with increasing weakness and ambulatory dysfunction due to COVID-19 viral infection. Patient is a high risk for severe COVID-19 disease with her history of both breast and endometrial cancer, MGUS. Patient meets criteria for COVID directed therapies. Continue IV remdesivir for minimum of 3 days, currently patient not requiring oxygen supplementation does not need Decadron. Continue to monitor O2 sat Clinically much better without any significant respiratory symptoms Saturating normally on room air Awaiting PT and OT evaluation prior to discharge Clinically much better without any respiratory symptoms of cough or shortness of breath Has been saturating normally on room air (2) MGUS (monoclonal gammopathy of unknown significance): (3) Ambulatory dysfunction: Will get PT and OT evaluation prior to discharge has had PT evaluation and recommended to continue home health PT (4) Pancytopenia: Patient has chronic anemia and leukopenia. Suspect thrombocytopenia induced from acute viral infection. CBC stable and showing some improvement (5) History of endometrial cancer: (6) Malignant neoplasm of lower-inner quadrant of left breast in female, estrogen receptor negative: (7) Bipolar disorder: No acute anxiety and/or distress Will continue current medications Total Time Total Time Spent Total Time Spent (In Minutes): 45 minutes Discharge Plan Discharge Items Patient Disposition: Home - Home Health Services Reason For Visit: WEAKNESS, COVID Discharge Diagnosis: COVID-19 virus infection, weakness, pancytopenia Condition on Discharge: Fair Activity: Resume your previous activity Activity Comment: continue home PT and OT Non-emergency contact: Primary Care Provider Call non-emergency contact if: you have any medication questions and your symptoms worsen Follow-up/Referrals: Jose M Seth MD [Primary Care Provider] - (Date & Time 03/06/2024 10:40 AM Provider Serena Gutierrez MD Department General Internal Medicine [facility] ) Diet: Heart Healthy Addtl Attending Provider Instructions: Please take precautions to avoid falls Continue PT as an outpatient Take your medications as advised Keep appointments with your healthcare providers You will need to have an appointment with outpatient licensed life and health agent for your low white count Covid Isolation at Home:Until 03/09/2024 as below: Home Isolation COVID-19 Instructions The following information about Home Isolation is from the CDC Website: https://www.cdc.gov/coronavirus/2019-ncov/hcp/vrwqqgjn-rhggwjp-ckbjqg.html Stay home except to get medical care People who are mildly ill with COVID-19 are able to isolate at home during their illness. You should restrict activities outside your home, except for getting medical care. Do not go to work, school, or public areas. Avoid using public transportation, ride-sharing, or taxis. Separate yourself from other people and animals in your home People: As much as possible, you should stay in a specific room and away from other people in your home. Also, you should use a separate bathroom, if available. Animals: You should restrict contact with pets and other animals while you are sick with COVID-19, just like you would around other people. Although there have not been reports of pets or other animals becoming sick with COVID-19, it is still recommended that people sick with COVID-19 limit contact with animals until more information is known about the virus. When possible, have another member of your household care for your animals while you are sick. If you are sick with COVID-19, avoid contact with your pet, including petting, snuggling, being kissed or licked, and sharing food. If you must care for your pet or be around animals while you are sick, wash your hands before and after you interact with pets and wear a face mask. Call ahead before visiting your doctor If you have a medical appointment, call the healthcare provider and tell them that you have or may have COVID-19. This will help the healthcare providers office take steps to keep other people from getting infected or exposed. Wear a face mask You should wear a face mask when you are around other people (e.g., sharing a room or vehicle) or pets and before you enter a healthcare providers office. If you are not able to wear a face mask (for example, because it causes trouble breathing), then people who live with you should not stay in the same room with you, or they should wear a face mask if they enter your room. Cover your coughs and sneezes Cover your mouth and nose with a tissue when you cough or sneeze. Throw used tissues in a lined trash can. Immediately wash your hands with soap and water f or at least 20 seconds or, if soap and water are not available, clean your hands with an alcohol-based hand detail technician that contains at least 60% alcohol. Clean your hands often Wash your hands often with soap and water for at least 20 seconds, especially after blowing your nose, coughing, or sneezing; going to the bathroom; and before eating or preparing food. If soap and water are not readily available, use an alcohol-based hand detail technician with at least 60% alcohol, covering all surfaces of your hands and rubbing them together until they feel dry. Soap and water are the best option if hands are visibly dirty. Avoid touching your eyes, nose, and mouth with unwashed hands. Avoid sharing personal household items You should not share dishes, drinking glasses, cups, eating utensils, towels, or bedding with other people or pets in your home. After using these items, they should be washed thoroughly with soap and water. Clean all high-touch surfaces everyday High touch surfaces include counters, tabletops, doorknobs, bathroom fixtures, toilets, phones, keyboards, tablets, and bedside tables. Also, clean any poole rfaces that may have blood, stool, or body fluids on them. Use a household cleaning spray or wipe, according to the label instructions. Labels contain instructions for safe and effective use of the cleaning product including precautions you should take when applying the product, such as wearing gloves and making sure you have good ventilation during use of the product. Monitor your symptoms Seek prompt medical attention if your illness is worsening (e.g., difficulty breathing).Beforeseeking care, call your healthcare provider and tell them t hat you have, or are being evaluated for, COVID-19. Put on a face mask before you enter the facility. These steps will help the healthcare providers office to keep other people in the office or waiting room from getting infected or exposed. Ask your healthcare provider to call the local or state health department. Persons who are placed under active monitoring or facilitated self- monitoring should follow instructions provided by their local health department or occupational health professionals, as appropriate. When working with your local health department check their available hours. If you have a medical emergency and need to call 911, notify the dispatch personnel that you have, or are being evaluated for COVID-19. If possible, put on a face mask before emergency medical services arrive. Discontinuing home isolation Patients with confirmed COVID-19 should remain under home isolation precautions until the risk of secondary transmission to others is thought to be low. The decision to discontinue home isolation precautions should be made on a [id number] basis, in consultation with healthcare providers and state and local health departments. Pending Studies at Discharge: No Stand-Alone Forms: My [employer], Smoking Cessation Medications and DC Order Prescriptions: Continued lorazepam 0.5 mg tablet 0.5 mg PO DAILY PRN (Reason: Anxiety) acetaminophen [Tylenol Extra Strength] 500 mg tablet 1,000 mg PO Q8H PRN (Reason: Pain) biotin 300 mcg tablet 300 mcg PO DAILY fluoxetine 20 mg capsule 20 mg PO HS cholecalciferol (vitamin D3) 1,000 unit capsule 25 mcg PO QAM (DME) Oxygen Home Liters Per Minute See Dose Instructions .ROUTE .MEDSUPPLY Qty: 1 Rx Instructions: As directed gabapentin 300 mg capsule 300 mg PO TID Patient Comments: PT TAKES 1 CAP EVERY AM AND 1 CAP EVERY OTHER NIGHT Rx Instructions: TAKE THIS MED IN THE AM, MID-DAY, AND BEDTIME. atorvastatin [Lipitor] 20 mg Tablet 20 mg PO DAILY Ure-Na 15 gram Powder In Packet 15 g PO DAILY Qty: 8 0RF fluticasone propionate 50 mcg/actuation spray,suspension 2 spray INTRANASAL QAM PRN (Reason: Congestion) divalproex 250 mg tablet extended release 24 hr 750 mg PO HS diclofenac sodium 1 % Gel 4 g TOPICAL QID PRN (Reason: Pain) Rx Instructions: apply to knee fexofenadine 180 mg Tablet 180 mg PO DAILY PRN (Reason: allergies) pantoprazole 40 mg tablet,delayed release (DR/EC) 40 mg PO DAILYBB oxybutynin chloride 15 mg tablet extended release 24hr 15 mg PO DAILY Rx Instructions: TAKE 1 TABLET BY MOUTH DAILY magnesium chloride [Mag 64] 64 mg tablet,delayed release (DR/EC) 64 mg PO BID Discharge Orders: Discharge Order (Routine); Ordered 03/02/24 Ordered By: Rolly Rebolledo Admission Data Admit Date/Time: 02/28/24 15:11 Attending Provider: Rolly Rebolledo Admit Provider: Eldon Noble Primary Care Provider: Jose M Seth Other Providers: Eldon Noble; Clive Mccray; [facility] Other Interventions: Discharge Summary Assessment (RN) Last Done: 03/02/24 12:48
== END 2024-03-02 17:14 | disposition home health service (06) | DRG 178 ==
LOC: ED 10:29 → SUATTDRO 15:11 → EDINP 15:11 → 2N 17:16 → 2W 02-29 12:07